=== PATIENT | female | born 1955 | race Caucasian/White ===

== ENCOUNTER 2020-12-04 19:37 | Emergency (ER) | payer MEDICARE, SELFPAY ==
[2020-12-04 19:38] VITALS: BP 183/90; PULSE 63; RESP 16; TEMP 36.7; O2SAT 97; BMI 27.4
--- NOTE | 2020-12-04 19:40 | ECG_ITS ---
APPROVED REPORT Exam: Resting ECG HR:53 bpm ECG Measurements Heart Rate 53 AXES IN 150 P 70 QRSd 82 QRS 2 QT 478 T 42 QTc 448 Conclusion Sinus bradycardia with sinus arrhythmia Possible Left atrial enlargement Borderline ECG Electronically signed by : Heriberto Schafer, 12/05/2020 10:50:51
--- NOTE | 2020-12-04 19:47 | CT_ITS ---
PROCEDURE INFORMATION: Exam: CT Head Without Contrast Exam date and time: 12/04/20 07:47 PM Age: 65 years old Clinical indication: Dizziness; Additional info: Headache dizziness TECHNIQUE: Imaging protocol: Computed tomography of the head without contrast. Radiation optimization: All CT scans at this facility use at least one of these dose optimization techniques: automated exposure control; mA and/or kV adjustment per patient size (includes targeted exams where dose is matched to clinical indication); or iterative reconstruction. COMPARISON: No relevant prior studies available. 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 Old left posterior temporal cortical infarct with encephalomalacia. Left temporal cortical calcification. Cerebral ventricles: No ventriculomegaly. Paranasal sinuses: Visualized sinuses are unremarkable. No fluid levels. Mastoid air cells: Visualized mastoid air cells are well aerated. Bones/joints: Unremarkable. No acute fracture. Soft tissues: Unremarkable. IMPRESSION: 1. 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 2. Old left posterior temporal cortical infarct with encephalomalacia.
--- NOTE | 2020-12-04 19:47 | CT_ITS ---
PROCEDURE INFORMATION: Exam: CT Abdomen And Pelvis With Contrast Exam date and time: 12/04/20 07:47 PM Age: 65 years old Clinical indication: Nausea and vomiting; Prior surgery; Patient HX: N/v; Additional info: Vomitting TECHNIQUE: Imaging protocol: Computed tomography of the abdomen and pelvis with contrast. Radiation optimization: All CT scans at this facility use at least one of these dose optimization techniques: automated exposure control; mA and/or kV adjustment per patient size (includes targeted exams where dose is matched to clinical indication); or iterative reconstruction. Contrast material: ISOVUE; Contrast volume: 75 ml; Contrast route: IV; COMPARISON: No relevant prior studies available. FINDINGS: Tubes, catheters and devices: None noted. Lungs: Lung bases appear clear. Heart: No significant coronary calcifications. No cardiomegaly. No significant pericardial effusion. Liver: Normal. No mass. Gallbladder and bile ducts: Suspect cholecystectomy. Prominent intra and extrahepatic ductal dilation. Pancreas: 3 cm pseudocyst in the tail. No ductal dilation. Spleen: Normal. No splenomegaly. Adrenal glands: Normal. No mass. Kidneys and ureters: Normal. No hydronephrosis. Stomach and bowel: Unremarkable. No obstruction. No mucosal thickening. Appendix: No evidence of appendicitis. Intraperitoneal space: Unremarkable. No free air. No significant fluid collection. Retroperitoneal space: No significant retroperitoneal inflammatory changes are noted. Vasculature: Unremarkable. No abdominal aortic aneurysm. Lymph nodes: Unremarkable. No enlarged lymph nodes. Urinary bladder: Unremarkable as visualized. Reproductive: Unremarkable as visualized. Bones/joints: Unremarkable. No acute fracture. Soft tissues: Unremarkable. IMPRESSION: 1. 3 cm pancreatic pseudocyst in the tail of the pancreas. 2. Prominent intra and extrahepatic biliary dilatation, uncertain significance. Likely remote post cholecystectomy. Consider elective MRCP.
--- NOTE | 2020-12-04 19:50 | XR_ITS ---
PROCEDURE INFORMATION: Exam: XR Chest Exam date and time: 12/04/20 07:50 PM Age: 65 years old Clinical indication: Other: Headache TECHNIQUE: Imaging protocol: XR of the chest. Views: 1 view. COMPARISON: No relevant prior studies available. FINDINGS: Lungs: Unremarkable. No consolidation. Pleural spaces: Unremarkable. No pleural effusion. No pneumothorax. Heart/Mediastinum: Unremarkable. No cardiomegaly. Bones/joints: Unremarkable. IMPRESSION: No acute findings.
--- NOTE | 2020-12-04 19:55 | PC.NURSE ---
NIH scale 0 during triage
[2020-12-04 20:00] VITALS: BP 172/84; PULSE 56; RESP 18; O2SAT 99
[2020-12-04 20:06] LABS: Basophils % 0.3 % (0.1-2.0); Eosinophils # 0.1 K/mm3 (0.0-0.4); Hematocrit 45.9 % (37.0-47.0); Hemoglobin 15.5 g/dL (12.2-16.2); Lymphocytes # 3.3 K/mm3 (0.7-4.5); Lymphocytes % 41.7 % (10-50); Mean Corpuscular HGB Conc 33.8 g/dL (31.8-35.4); Mean Corpuscular Hemoglobin 30.9 pg (27.0-31.2); Mean Corpuscular Volume 91.3 fl (81-99); Mean Platelet Volume 7.5 fl (7.4-10.4); Monocytes # 0.4 K/mm3 (0.1-1.0); Neutrophils # 4.1 K/mm3 (1.8-7.8); Platelet Count 200 K/mm3 (142-424); Red Blood Count 5.03 M/mm3 (4.20-5.40); Red Cell Distribution Width 13.1 % (11.5-17.5); White Blood Count 7.9 K/mm3 (4.8-10.8)
--- NOTE | 2020-12-04 20:08 | HMH.EDWEAK ---
ED Disposition Clinical Impression: CVA (cerebral vascular accident) Qualifiers: CVA mechanism: unspecified Qualified Code(s): I63.9 - Cerebral infarction, unspecified Disposition: Xfer Short-Term Hosp Condition on Discharge: Serious Referrals: Golden Newell MD [Primary Care Provider] - - Critical Care Critical Care Time: No Attestation: On 12/04/20, the high probability of a clinically significant, sudden or life threatening deterioration of the following system(s) required my full and direct attention, intervention and personal management. The time I documented below is in addition to time spent performing reported procedures but includes the following listed in this critical care notation. Medical Decision Making - Medical Records Medical records reviewed: Yes: I reviewed the patient's medical records. - Oziel Inquiry Pt receiving controlled substance: No Vital Signs: 12/04/20 19:38 12/04/20 20:00 12/04/20 21:00 Temperature 98.1 F Temperature Source Oral Pulse Rate 56 L 73 Pulse Rate [Right] 63 Respiratory Rate 16 18 20 Blood Pressure 172/84 H 153/84 H Blood Pressure [Right Arm] 183/90 H Blood Pressure Mean 107 Blood Pressure Mean [Right Arm] 121 02 Sat by Pulse Oximetry 97 99 97 - Lab Data Lab results reviewed: Yes: I reviewed the patient's lab results. Lab Results 12/04/20 19:50: WBC 7.9, RBC 5.03, Hgb 15.5, Hct 45.9, MCV 91.3, MCH 30.9, MCHC 33.8, RDW 13.1, Plt Count 200, MPV 7.5, Neut % (Auto) 52.0, Lymph % (Auto) 41.7, [place] % (Auto) 5.0, Eos % (Auto) 1.0, Baso % (Auto) 0.3, Neut # (Auto) 4.1, Lymph # (Auto) 3.3, [place] # (Auto) 0.4, Eos # (Auto) 0.1, Baso # (Auto) 0.0, ESR 13 12/04/20 19:50: Sodium 140, Potassium 4.0, Chloride 106, Carbon Dioxide 26, Anion Gap 12.0, BUN 17, Creatinine 0.80, Estimated Creat Clear 63, Estimated GFR 72, Est GFR ( Amer) 87, Glucose 138 H, Calcium 9.0, Total Bilirubin 0.7, AST 25, ALT 17, Alkaline Phosphatase 88, C-Reactive Protein 2.2, Total Protein 7.3, Albumin 4.3, Globulin 3.0, Albumin/Globulin Ratio 1.4 12/04/20 19:50: Troponin I 0.03, Amylase 82, Procalcitonin 0.038 12/04/20 19:50: Lipase 101 Result diagrams: 12/04/20 19:50 12/04/20 19:50 Orders (Tests/Meds): ED MEDICATIONS Generic Name Dose Route Start Last Admin Trade Name Freq PRN Reason Stop Dose Admin Sodium Chloride 1,000 mls @ 999 mls/hr 12/04/20 20:00 12/04/20 19:53 Sod Chlor 0.9% 1000ml Bag IV 12/04/20 21:00 999 mls/hr .Q1H1M KHUSHI Administration Discontinued Medications Generic Name Dose Route Start Last Admin Trade Name Freq PRN Reason Stop Dose Admin Iopamidol 75 ml 12/04/20 20:36 12/04/20 20:37 Iopamidol-370 (76%);100ml Bottle IV 12/04/20 20:37 75 ml ONCE ONE Administration Ketorolac Tromethamine 30 mg 12/04/20 19:51 12/04/20 19:54 Ketorolac 30mg/Ml Vial IV 12/04/20 19:52 30 mg ONCE ONE Administration Ondansetron HCl 4 mg 12/04/20 19:51 12/04/20 19:54 Ondansetron 4mg/2ml Vial IV 12/04/20 19:52 4 mg ONCE ONE Administration Sodium Chloride 10 ml 12/04/20 20:36 12/04/20 20:36 Sodium Chloride 0.9% 10ml Syr (Rad Only) IV 12/04/20 20:37 10 ml ONCE ONE Administration ORDERS Category Date Time Status Troponin I Q3H Lab 12/04/20 23:00 Ordered Troponin I Q3H Lab 12/05/20 02:00 Ordered Urinalysis and Microscopic Stat Lab 12/04/20 19:47 Ordered - Radiology Data #1 Image(s): Chest Image Reviewed: Yes I reviewed the patient's radiology image Preliminary Findings: Abnormal - CT Data CT Scan: Head, Abdomen, Pelvis Time Received: 21:[address] Reviewed: Yes: I have viewed the radiologist's interpretation Preliminary Findings: Abnormal - ECG Data Tracing #1 Normal Sinus Rhythm: Yes Ischemic changes: non-specific ST-T wave changes - Physician Consults Physician Consulted: chano Reason -: Transfer to another facilty Medical Decision Narrative: pt with acute brainstem stroke an
[2020-12-04 20:10] LABS: Alanine Aminotransferase 17 U/L (12-78); Albumin Level 4.3 g/dl (3.5-5.0); Albumin/Globulin Ratio 1.4 (1.1-1.8); Alkaline Phosphatase 88 U/L (38-126); Amylase 82 U/L (30-110); Aspartate Amino Transferase 25 U/L (14-36); Bilirubin,Total 0.7 mg/dl (0.2-1.3); Blood Urea Nitrogen 17 mg/dl (7-17); Carbon Dioxide 26 mmol/L (22.0-30.0); Chloride 106 mmol/L (98-107); Creatinine Clearance Estimated 63 mL/min (50-200); Estimated Glomerular Filt Rate 72 ml/min (>60); GFR (African American) 87 ML/MIN (>60); Glucose 138 mg/dl (74-100); Sodium 140 mmol/L (136-145); Total Protein,Serum 7.3 g/dl (6.3-8.2)
[2020-12-04 20:16] LABS: C-Reactive Protein 2.2 mg/L (0-4)
[2020-12-04 20:24] LABS: Lipase 101 U/L (23-300); Troponin I 0.03 ng/ml (0.00-0.034)
--- NOTE | 2020-12-04 20:27 | PC.NURSE ---
pt out of room to radiology.
[2020-12-04 20:29] LABS: Procalcitonin 0.038 ng/mL (0.0-2.0)
[2020-12-04 20:49] LABS: Erythrocyte Sedimentation Rate 13 mm/hr (0-30)
[2020-12-04 21:00] VITALS: BP 153/84; PULSE 73; RESP 20; O2SAT 97
--- NOTE | 2020-12-04 21:04 | PC.NURSE ---
joy on phone with MDs
[2020-12-04 21:36] VITALS: BP 153/84; PULSE 65; RESP 16; TEMP 36.9; O2SAT 98
== END 2020-12-04 21:48 | disposition short-term general hospital (02) ==
PROVIDERS: Emergency Provider Emergency Medicine; PCP Family Medicine
DX: I63.9 Cerebral infarction, unspecified (principal)
CPT/HCPCS: 70450; 71045; 74177; 80053; 82150; 83690; 84145; 84484; 85025; 85651; 86140; 93005; 96365; 96375; 99284; J2405; Q9967

== ENCOUNTER 2021-09-01 14:45 | Outpatient (RCR) | payer MEDICARE, SELFPAY ==
--- NOTE | 2021-09-01 16:15 | HMH.PTOPEV ---
PT Outpatient Evaluation Rehab PT Outpatient Evaluation Start: 09/01/21 14:52 Freq: Status: Active Protocol: Document 09/01/21 16:02 PHORNE (Rec: 09/01/21 16:15 PHORNE [id number]) Electronically Signed By Mehdi Lacey, PT 09/01/21 16:02 Outpatient Therapy Subjective History Subjective History Pt is 65 yowf who presents with c/o dizziness with movement in standing or walking x ~ 10 mos. Pt was transferred to form [facility] ED on 12/04/20 due to possible brainstem CVA with symptoms of nausea, dizziness, and L eye rolled back in my head. However she and her spouse report CVA was ruled out and all testing essentially came back negative. Unfortunately for her the dizziness persists . She reports no c/o pain, but does state sometimes my head feels bigger than it really is. CT of the head showed evidence of prior L occipital and temporal CVA with no timeline involved. Pt reports, I had a sun stroke when I was [age] years old. Otherwise pt reports no significant PMH. Chief Complaint Other Symptoms Relieved By Rest/Positioning Symptoms Aggravated By Standing,Twisting Prior Functional Limitations None Current Functional Limitations Driving,Recreation Activity, Walking Symptom Description Activity Dependent Level of pain today (0-10) 0 Pain scale - at its worst (0-10) 0 Balance Eval Gait/Posture Asssessment General Gait Observation Decrease Stride Lngth (R), Decrease Stride Lngth (L) Level of Transfer Assist Independent Body Alignment Posture Rigid Nystagmus Nystagmus Presence None Oculomotor Gaze Oculomotor Gaze Nml: Vergence Smooth Pursuit Saccades VOR Cancellation Cover/Uncover Cross Cover Dynamic Gait Index Test Protocol Gait Level Surface Mild Impairment Query Text: Instructions: Walk at your normal speed fr
== END 2021-09-01 14:50 | disposition home or self-care (01) ==
LOC: PT 14:45
PROVIDERS: PCP Family Medicine; Visit Provider Family Medicine
DX: R42 Dizziness and giddiness (principal)
CPT/HCPCS: 97163

== ENCOUNTER → 2022-06-28 12:59 | Outpatient (CLI) | payer MEDICARE, SELFPAY ==
--- NOTE | 2022-06-28 | CA_ITS ---
FINAL REPORT TECHNIQUE: Compression barrios scale and Doppler evaluation CLINICAL HISTORY: RLE pain x 1 week with no known trauma. Pain is behind knee and extending into mid and distal calf. Hyperlipidemia. 81 mg ASA daily. FINDINGS: Femoral and popliteal veins show normal compressibility and flow. Thrombus is noted in the peroneal vein. 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 Consider follow-up venous duplex in 5-7 days to assess for propagation. Reviewed, Interpreted and Dictated by Ernestine Laura MD Transcribed by Angel Luis Zhao Authenticated and [facility]
== END ==
PROVIDERS: PCP Family Medicine; Visit Provider Nurse Practitioner Family
DX: M79.604 Pain in right leg (principal)
CPT/HCPCS: 93971

== ENCOUNTER → 2022-08-05 12:05 | Outpatient (CLI) | payer MEDICARE, SELFPAY ==
[2022-08-05 14:57] LABS: Anion Gap 11.6 mEq/L (5-15); Blood Urea Nitrogen 14 mg/dl (7-17); Calcium 8.8 mg/dl (8.4-10.2); Carbon Dioxide 26 mmol/L (22.0-30.0); Chloride 108 mmol/L (98-107); Estimated Glomerular Filt Rate 83 ml/min (>60); GFR (African American) 101 ML/MIN (>60); Glucose 86 mg/dl (74-100); Potassium 4.6 mmoL/L (3.5-5.1); Sodium 141 mmol/L (136-145)
[2022-08-05 16:03] LABS: Vitamin B12 512 pg/mL (239-931)
[2022-08-05 16:04] LABS: Folate 8.97 ng/mL
[2022-08-07 11:08] LABS: Homocyst(e)ine 13.1 umol/L (0.0-17.2)
[2022-08-08 13:23] LABS: Anti-Cardio Antibody IgM 12 MPL U/mL (0-12); Anti-Cardiolipin Antibody IgG <9 GPL U/mL (0-14); Anti-Centromere B Antibodies <0.2 AI (0.0-0.9); Anti-DNA (DS) Ab Qn <1 IU/mL (0-9); Anti-Jo-1 <0.2 AI (0.0-0.9); Anticardiolipin Ab,IgA,Qn 12 APL U/mL (0-11); Antichromatin Antibodies 0.4 AI (0.0-0.9); Antiscleroderma-70 Antibodies <0.2 AI (0.0-0.9); RNP Antibodies <0.2 AI (0.0-0.9); Sjogren's Anti-SS-A 6.8 AI (0.0-0.9); Sjogren's Anti-SS-B <0.2 AI (0.0-0.9)
[2022-08-09 13:49] LABS: Anti-Thrombin III Antigen 109 % (72-124); Protein C Functional 134 % (73-180); Protein S, Free 98 % (61-136); Protein S, Total 110 % (60-150); Protein S-Functional 111 % (63-140)
[2022-08-14 16:09] LABS: Protein C Antigen 142 % (60-150)
[2022-08-18 22:32] LABS: Anti-Centromere B Abs Charge YES; Anti-DNA (DS) Ab Charge YES; Anti-Jo-1 Charge YES; Antichromatin Abs Charge YES; Antinuclear Antibodies (ANA) POSITIVE; Antiscleroderma-70 Abs Charge YES; RNP Antibodies Charge YES; Sjogren's Anti-SS-A Ab Charge YES; Sjogren's Anti-SS-B Ab Charge YES; Smith Antibodies Charge YES
== END ==
PROVIDERS: PCP Nurse Practitioner Family; Referring Provider Internal Medicine Cardiovascular Disease; Visit Provider Specialist
DX: D68.59 Other primary thrombophilia (principal); I63.9 Cerebral infarction, unspecified; R42 Dizziness and giddiness; Z87.898 Personal history of other specified conditions; I82.401 Acute embolism and thrombosis of unspecified deep veins of right lower extremity
CPT/HCPCS: 36415; 80048; 81241; 82607; 82746; 83090; 85301; 85302; 85305; 85306; 86038; 86147; 86225; 86235

== ENCOUNTER → 2022-08-09 10:37 | Outpatient (CLI) | payer MEDICARE, SELFPAY ==
--- NOTE | 2022-08-09 10:38 | MR_ITS ---
FINAL REPORT TECHNIQUE: Multiplanar and multisequence imaging of the brain was obtained before and after contrast administration. CLINICAL HISTORY: Recurrent CVA FINDINGS: The gyri and sulci are within normal limits for age. There is no mass effect or midline shift. There are periventricular and subcortical white matter changes, slightly asymmetric to the left. There is encephalomalacia of the left occipital lobe, likely related to old infarct. No hydrocephalus. The cerebellum and brainstem have a normal appearance. There are no areas of restricted diffusion on diffusion weighted images to suggest acute infarct. There is fluid in the right mastoid air cells consistent with mastoiditis. No pathologic contrast enhancement is identified. IMPRESSION: Nonspecific white matter changes, favor chronic small vessel ischemia although demyelinating disease is not excluded. Right right mastoiditis. Reviewed, Interpreted and Dictated by Nadia Chacko MD Transcribed by Eliana Xiao Authenticated and [facility]
== END ==
PROVIDERS: PCP Nurse Practitioner Family; Visit Provider Specialist
DX: D68.59 Other primary thrombophilia (principal); Z87.898 Personal history of other specified conditions; I63.89 Other cerebral infarction; I82.401 Acute embolism and thrombosis of unspecified deep veins of right lower extremity
CPT/HCPCS: 70553; A9576

== ENCOUNTER → 2022-08-11 13:05 | Outpatient (CLI) | payer MEDICARE, SELFPAY ==
--- NOTE | 2022-08-11 13:07 | CA_ITS ---
APPROVED REPORT EXAM: Comprehensive 2D, Doppler, and color-flow Echocardiogram Watch Crystal Cutter: Maria R Salmeron RT(R) Ht: 5 ft 4 in Wt: 168lbs BSA: 1.82 BP: 149/78 mmHg Indications: cryptogenic stroke, bradycardia, dizziness, CVA, HTN, hyperlipidemia Echo Enhancing Agent Indication: Rule Out Septal Defect Agent(s) / Amount(s) Used: Agitated Saline 15 cc 2D Dimensions LVOT 1.87 cm (M/F) 1.5-2.5 M-Mode Dimensions RVDd 3.04 cm (0.9-2.6) LA Diam 3.52 cm (1.9-4.0) LVDd 4.54 cm (3.5-5.7) Ao Diam 2.69 cm (2.0-3.7) LVDs 3.29 cm (3.5-5.7) IVSd 0.72 cm (0.6-1.1) PWd 0.79 cm (0.6-1.1) EF (Teich) 53.60% FS 27.50% EDV (Teich) 94.40 mL ESV (Teich) 43.80 mL LV Diastology E Decel Time 200.00 (160-240 msec) E/A Ratio 0.9 MED E' 7.60 (< 7 cm/sec) E'/MED E' Ratio 9.20 (>14) LAT E' 7.00 (<10 cm/sec) E/LAT E' Ratio 9.99 (>14) Mitral Valve MV E Max Chu. 70.00 (40-130 cm/s) MV A Velocity 78.00 (40-130 cm/s) E/A Ratio 0.90 MV Decel. Time 200.00 (160-240 ms) MV PHT 59.00 ms Left Ventricle Left atrium is mildly enlarged, left ventricle is normal size mild concentric left ventricular hypertrophy, estimated ejection fraction 55% with no regional wall motion abnormality, grade 1 diastolic dysfunction seen without tissue Doppler evidence of raise left atrial pressure. Right Ventricle Right atrium and right ventricle are normal size and contractility. Atria Intra-atrial septum is intact there is no flow across the interatrial septum, agitated saline contrast study did not identify intracardiac shunt. Mitral Valve Mitral valve is grossly normal, there is trace mitral regurgitation. Tricuspid Valve Tricuspid grossly normal, there is trace tricuspid regurgitation, tricuspid regurgitation jet velocity is inadequate for calculation of the right ventricular systolic pressure. Pulmonic Valve Pulmonic valve is poorly visualized. Great Vessels Aortic root is normal size. Inferior vena cava is normal size with normal inspiratory collapse. Pericardium No significant pericardial effusion noted. Conclusion 1. Mildly enlarged left atrium, normal left ventricular size, mild concentric left ventricular hypertrophy, estimated ejection fraction 55% with no regional wall motion abnormality, grade 1 diastolic dysfunction seen without tissue Doppler evidence of late left atrial pressure. 2. Trace mitral and tricuspid regurgitation. 3. Agitated saline contrast study did not identify intracardiac shunt. 4. No significant pericardial effusion noted. 5. Inferior vena cava is normal size with normal inspiratory collapse. Electronically signed by : Virgil Thurman MD 08/12/2022 11:10:17
== END ==
PROVIDERS: PCP Nurse Practitioner Family; Visit Provider Internal Medicine Cardiovascular Disease
DX: I63.89 Other cerebral infarction; R42 Dizziness and giddiness
CPT/HCPCS: 93225; 93306

== ENCOUNTER → 2022-08-17 09:22 | Outpatient (CLI) | payer MEDICARE, SELFPAY ==
--- NOTE | 2022-08-17 09:26 | XR_ITS ---
FINAL REPORT TECHNIQUE: Bone mineral density was calculated of the lumbar spine and hip. CLINICAL HISTORY: post menopause FINDINGS: Using L1-4, the bone mineral density of the spine is 0.888 g/cm2, corresponding to T-score of -1.4. Using the left hip, the bone mineral density of the femoral neck is 0.757 g/cm2, corresponding to a T-score of -1.5. NOTE: T-score: Standard deviation compared with peak bone mass of young adult mean. *Following the recommendations of the International Society of Bone densitometry, classification of hip BMD is based on the lower of two T-scores; total hip or femoral neck. IMPRESSION: Diminished bone mineral density of the lumbar spine and left hip consistent with osteopenia. FRAX 10 year fracture risk is 0.9% for a hip fracture and 8.7% for a major osteoporotic fracture. Reviewed, Interpreted and Dictated by Mele Norman III, MD Transcribed by Amy Serrano Authenticated and . [facility]
== END ==
PROVIDERS: PCP Nurse Practitioner Family; Visit Provider Nurse Practitioner Family
DX: Z78.0 Asymptomatic menopausal state (principal)
CPT/HCPCS: 77080

== ENCOUNTER 2023-10-05 10:32 | Outpatient (CLI) | payer MEDICARE, SELFPAY ==
--- NOTE | 2023-10-05 11:03 | ECG_ITS ---
APPROVED REPORT Exam: Resting ECG HR:55 bpm ECG Measurements Heart Rate [address] 155 P 71 QRSd 85 QRS 83 QT 418 T 51 QTc 406 Conclusion SINUS BRADYCARDIA LOW QRS VOLTAGE IN PRECORDIAL LEADS with late r wave progression BORDERLINE ECG UNCONFIRMED REPORT Electronically signed by : Heriberto Schafer MD 10/05/2023 19:23:14
[2023-10-05 11:58] LABS: Troponin I < 0.01 ng/ml (0.00-0.034)
[2023-10-05 12:07] LABS: Vitamin B12 441 pg/mL (239-931)
== END 2023-10-05 23:59 | disposition home or self-care (01) ==
LOC: LAB 10:34
PROVIDERS: PCP Physician Assistant; Visit Provider Physician Assistant
DX: R07.9 Chest pain, unspecified (principal)
CPT/HCPCS: 36415; 82607; 84484; 93005

== ENCOUNTER 2024-02-15 00:58 | Emergency (ER) | payer MEDICARE, SELFPAY ==
[2024-02-15 00:59] VITALS: BP 200/103; PULSE 75; RESP 18; TEMP 36.6; O2SAT 99; BMI 29.2
--- NOTE | 2024-02-15 01:02 | HMH.EDGENADL ---
Discharge Plan Disposition Patient Disposition: Home, Self-Care Prescriptions Prescriptions: New diclofenac sodium [Voltaren Arthritis Pain] 1 % gel 2 g topical QID Qty: 100 0RF Rx Instructions: apply to single elbow, wrist or hand; for hand includes palm/fingers/back of hand No Action aspirin 81 mg tablet,delayed release (DR/EC) 81 mg PO DAILY atorvastatin 80 mg tablet 80 mg PO DAILY Referrals Follow up/Referrals: Selene Foster PA [Primary Care Provider] - See instructions Activity Restrictions/Add. Instructions Additional Instructions/Restrictions: Please follow-up with your primary care provider for further assessment, I think you may have arthritis or an autoimmune condition. Please return to the emergency department if you develop any new or worsening symptoms or become concerned for your health. Please take Tylenol and ibuprofen as needed for pain. I also prescribed a topical pain medication that you can draft roller picker and use. Clinical Impressions Clinical Impression: Arm pain, left, Hand swelling Print Language Print Language: Japanese Discharge ED Provider: Schuyler Pavon Adult HPI General Chief complaint: PAIN Stated complaint: pain, swelling R arm Time Seen by Provider: 02/15/24 01:02 History of Present Illness HPI narrative: 68-year-old female with history of prior stroke and DVT presents for left hand pain and swelling. Reports the pain runs up her arm to the shoulder. Denies any chest pain or shortness of breath. She reports that this is approximately the third or fourth time this has happened in the last few months. She reports it was previously on the right hand and switches [id number]. It has been ongoing for the last couple of days. She denies any injury but reports she has been working in the garden a lot. She denies any fever at home. She denies any history of inflammatory conditions or arthritis. Related Data Home Medications ?Medication ?Instructions ?Recorded ?Confirmed aspirin 81 mg tablet,delayed 81 mg PO DAILY 08/01/22 02/15/24 release atorvastatin 80 mg tablet 80 mg PO DAILY 08/01/22 02/15/24 Previous Rx's ?Medication ?Instructions ?Recorded diclofenac sodium 1 % topical gel 2 g topical QID #100 grams 02/15/24 (Voltaren Arthritis Pain) Allergies Allergy/AdvReac Type Severity Reaction Status Date / Time No Known Allergies Allergy Verified 02/20/23 14:28 [facility] Disclaimer: The information contained in this section may have been updated after the patient was seen, as this information can be updated by other users. Medical History Bradycardia Cryptogenic stroke Dizziness Family History Other Hypertension Social History (Updated 02/15/24 @ 01:16 by Nikolas Duran RN) Smoking Status: Never smoker alcohol intake: never substance use type: denies use current occupational status: retired Travel in the last 8 weeks: None household members: spouse housing: house marital status: ROS Obtained: Yes All systems reviewed & no additional complaints except as documented Physical Exam General General appearance: alert and in no apparent distress Head Head exam: atraumatic and normocephalic Eye Eye exam: Present normal appearance, PERRL and EOMI ENT ENT exam: Present normal oropharynx and normal external ear exam Neck Neck exam: Present normal inspection and full ROM Chest Chest inspection: Present normal inspection and symmetric chest wall rise; Absent tenderness Respiratory Respiratory exam: Present normal lung sounds bilaterally; Absent respiratory distress Cardiovascular Cardiovascular exam: Present regular rate and normal rhythm Abdominal Exam Abdominal exam: Present soft; Absent distention, tenderness or guarding Extremities Exam Extremities exam: Present other (Minimal swelling in the skin overlying the dorsum of the hand, more prominent on the lateral aspect. Does not appear to be cellulitic. Patient's hand and wrist are diffusely tender. No erythema induration or warmth. Normal radial and ulnar pulses. No diffuse swelling of the arm.) Back Exam Back exam: Present normal inspection; Absent tenderness Neurological Exam Neurological exam: Present alert and oriented X3; Absent motor sensory deficit Psychiatric Psychiatric exam: Present normal affect and normal mood Skin Skin exam: Present warm, dry and normal color Lymphatic Lymphatic Findings: no adenopathy Medical Decision Making Medical Records Medical records reviewed: Yes I reviewed the patient's medical records. Oziel Inquiry Pt receiving controlled substance: No Oziel was queried for this patient: No Vital Signs: 02/15/24 00:59 02/15/24 01:41 Temperature 97.9 F 98.1 F Temperature Source Oral Oral Pulse Rate 67 Pulse Rate [Left] 75 Respiratory Rate 18 16 Blood Pressure 184/107 H Blood Pressure [Right Arm] 200/103 H Blood Pressure Mean [Right Arm] 135 Blood Pressure Source Automatic Cuff Blood Pressure Source [Right Arm] Automatic Cuff Blood Pressure Position Sitting Blood Pressure Position [Right Arm] Sitting 02 Sat by Pulse Oximetry 99 Oxygen Delivery Method Room Air Room Air Lab Data Lab results reviewed: Yes I reviewed the patient's lab results. Orders (Tests/Meds): ED MEDICATIONS Discontinued Medications Generic Name Dose Route Start Last Admin Trade Name Jonathan PRN Reason Stop Dose Admin Acetaminophen 1,000 mg 02/15/24 01:10 02/15/24 01:27 Acetaminophen 500mg Tab PO 02/15/24 01:11 1,000 mg ONCE ONE Administration Ketorolac Tromethamine 60 mg 02/15/24 01:10 02/15/24 01:43 Ketorolac 60mg/2ml Vial IM 02/15/24 01:11 Not Given ONCE ONE Ketorolac Tromethamine 30 mg 02/15/24 01:10 02/15/24 01:27 Ketorolac 60mg/2ml Vial IM 02/15/24 01:11 30 mg ONCE ONE Administration Miscellaneous 1 each 02/15/24 01:18 02/15/24 01:25 Pharmacy Consult Request NOTAPPLIC 02/15/24 01:19 1 each CONSULT PHARMACY ONE Administration Oxycodone HCl 5 mg 02/15/24 01:43 02/15/24 01:47 Oxycodone 5mg Immediate Release Tablet PO 02/15/24 01:44 5 mg ONCE ONE Administration ORDERS Category Date Time Status POCUS Point of Care (ER Only) Stat Exams 02/15/24 01:10 Taken XR forearm LT 2V Stat Exams 02/15/24 01:10 Completed XR wrist LT min 3V Stat Exams 02/15/24 01:10 Completed Medical Decision Narrative: 68-year-old female with history of prior stroke and DVT presents for left hand/wrist pain and swelling, pain radiating up the left arm, for the last couple of days. This has happened before in both hands at different times. History was obtained via interactive discussion with patient, chart review. On arrival, patient is [afebrile, hemodynamically stable, satting appropriately, alert, oriented x4, GCS 15], moving all extremities spontaneously. Full physical exam performed and significant for findings as documented above. Mild swelling over the hand, no swelling over the forearm or upper arm. Does not appear infectious. On chart review, patient has had positive autoimmune antibody titers as recently as last year. She never saw rheumatology regarding it though. Differential includes but is not limited to arthritis, autoimmune condition, DVT, arterial insufficiency, infectious etiology, gout Patient was given Tylenol Toradol and oxycodone for symptomatic management and correction of underlying abnormalities. Workup initiated including bedside ultrasound of the left arm as well as radiographs of the left hand and forearm. Bedside ultrasound performed and interpreted by me, no evidence of DVT. Radiographs interpreted by me, no evidence of fracture, dislocation, osteomyelitis.. Blood work, EKG, was considered, but deemed unnecessary due to history and physical exam. Given patient history, exam and workup, patient's presentation most likely represents arthritis, potentially autoimmune in nature given positive titers in the past, patient's age, etc. These findings were communicated to patient she was discharged in stable condition with instructions to follow-up with PCP for further assessment. She is given instructions regarding symptomatic care.. Procedures Risk/Benefits of Procedure(s) Were Explained: Yes Limited Ultrasound Indication:: Limited DVT ultrasound Indication: Limited compression ultrasonography of the left upper extremity was performed to evaluate for non-compressibility of the deep veins in the patient. The ultrasound was performed with the following indications, as noted in the H&P: Left arm pain Identified structures: Left [Ulnar vein, radial vein, cephalic vein, basilic vein, axillary vein.] Findings: Upper extremity: Left UV good compressibility Left RV: Good compressibility Left Cephalic vein: Good compressibility Left Basilic vein: Good compressibility Left Axillary vein: Good compressibility Impression: Normal ultrasound without evidence of DVT. Images were saved to permanent archive The study was technically adequate CPT: 92583-62-HF This study was performed by me, and I personally interpreted all images/videos. Based on my clinical judgement, these images were adequate and did not necessitate further imaging. Critical Care Critical Care Time Critical Care Time: No
--- NOTE | 2024-02-15 01:10 | XR_ITS ---
PROCEDURE INFORMATION: Exam: XR Left Wrist Exam date and time: 02/15/2024 1:14 AM Age: 68 years old Clinical indication: Pain; Wrist; Left; Additional info: Atraumatic pain TECHNIQUE: Imaging protocol: Radiologic exam of the left wrist. Views: 3 or more views. COMPARISON: CR XR WRIST LT MIN 3V 02/15/2024 1:14 AM FINDINGS: Bones/joints: Normal. Soft tissues: Normal. IMPRESSION: No acute findings.
--- NOTE | 2024-02-15 01:10 | XR_ITS ---
PROCEDURE INFORMATION: Exam: XR Left Forearm Exam date and time: 02/15/2024 1:14 AM Age: 68 years old Clinical indication: Pain; Lower or forearm; Left; Additional info: Atraumatic pain TECHNIQUE: Imaging protocol: Radiologic exam of the left forearm. Views: 2 views. COMPARISON: CR XR WRIST LT MIN 3V 02/15/2024 1:14 AM FINDINGS: Bones/joints: Normal. Soft tissues: Normal. IMPRESSION: No acute findings.
[2024-02-15] MEDS: ACETAMINOPHEN 500MG TAB 1000 MG PO (01:27)
[2024-02-15] MEDS: KETOROLAC 60MG/2ML VIAL 30 MG IM (01:27)
[2024-02-15 01:41] VITALS: BP 184/107; PULSE 67; RESP 16; TEMP 36.7; O2SAT 98
[2024-02-15] MEDS: OXYCODONE 5MG IMMEDIATE RELEASE TABLET 5 MG PO (01:47)
== END 2024-02-15 01:51 | disposition home or self-care (01) ==
PROVIDERS: Emergency Provider Emergency Medicine; PCP Physician Assistant
DX: M79.602 Pain in left arm (principal); R22.32 Localized swelling, mass and lump, left upper limb; Z86.73 Personal history of transient ischemic attack (TIA), and cerebral infarction without residual deficits; Z86.718 Personal history of other venous thrombosis and embolism
CPT/HCPCS: 73090; 73110; 96372; 99284; J1885

== ENCOUNTER 2024-08-09 11:26 | Outpatient (CLI) | payer MEDICARE, SELFPAY ==
[2024-08-09 12:25] LABS: Alanine Aminotransferase 117 U/L (12-78); Albumin Level 4.2 g/dl (3.5-5.0); Albumin/Globulin Ratio 2.2 (1.1-1.8); Alkaline Phosphatase 62 U/L (38-126); Anion Gap 15.2 mEq/L (5-15); Aspartate Amino Transferase 49 U/L (14-36); Bilirubin,Total 0.7 mg/dl (0.2-1.3); Blood Urea Nitrogen 17 mg/dl (7-17); Calcium 9.3 mg/dl (8.4-10.2); Carbon Dioxide 28 mmol/L (22.0-30.0); Chloride 103 mmol/L (98-107); Estimated Glomerular Filt Rate 83 ml/min (>60); GFR (African American) 100 ML/MIN (>60); Globulin 1.9 g/dL (1.3-3.2); Glucose 140 mg/dl (74-100); Potassium 4.2 mmoL/L (3.5-5.1); Sodium 142 mmol/L (136-145); Total Protein,Serum 6.1 g/dl (6.3-8.2)
== END 2024-08-09 23:59 | disposition home or self-care (01) ==
LOC: LAB 11:28
PROVIDERS: PCP Physician Assistant; Visit Provider Physician Assistant Medical
DX: M05.79 Rheumatoid arthritis with rheumatoid factor of multiple sites without organ or systems involvement (principal); Z79.899 Other long term (current) drug therapy
CPT/HCPCS: 36415; 80053

== ENCOUNTER 2024-09-06 09:15 | Outpatient (CLI) | payer MEDICARE, SELFPAY ==
--- NOTE | 2024-09-06 09:17 | XR_ITS ---
FINAL REPORT CLINICAL HISTORY: SCREENING FINDINGS: Using L1-4, the bone mineral density of the spine is 0.928 g/cm2, corresponding to T-score of -1.1 which is within the range of osteopenia. Using the left hip, the bone mineral density of the femoral neck is 0.739 g/cm2, corresponding to a T-score of -1.0 which is within the normal range. Using the right hip, the bone mineral density of the femoral neck is 0.793 g/cm2, corresponding to a T-score of -0.5 which is within the normal range. FRAX 10 year fracture risk is 11% for a hip fracture and 1.3% for a major osteoporotic fracture. IMPRESSION: Osteopenic bone mineral density of the lumbar spine. Normal bone mineral density of the bilateral femoral necks. NOTE: T-score: Standard deviation compared with peak bone mass of young adult mean. *Following the recommendations of the International Society of Bone densitometry, classification of hip BMD is based on the lower of two T-scores; total hip or femoral neck. Reviewed, Interpreted and Dictated by Taye Drake MD Transcribed by Aida Eisenberg Authenticated and [facility]
== END 2024-09-06 23:59 | disposition home or self-care (01) ==
LOC: RAD 09:15
PROVIDERS: PCP Physician Assistant; Visit Provider Physician Assistant
DX: M81.0 Age-related osteoporosis without current pathological fracture (principal)
CPT/HCPCS: 77080

== ENCOUNTER 2024-09-11 09:02 | Outpatient (CLI) | payer MEDICARE, SELFPAY ==
--- NOTE | 2024-09-11 09:04 | US_ITS ---
FINAL REPORT TECHNIQUE: Multiple transverse and longitudinal images CLINICAL HISTORY: ELEVATED LFT S COMPARISON: None FINDINGS: Status post cholecystectomy. There is severe biliary ductal dilatation with common bile duct measuring up to 14 mm. No fluid collections are seen. Limited portions of the right liver are unremarkable. Limited portions of the right kidney are unremarkable. IMPRESSION: Significant extrahepatic biliary ductal dilatation. Recommend further evaluation with MRCP. Reviewed, Interpreted and Dictated by Ernestine Laura MD Transcribed by Jennifer Schmidt Authenticated and [facility]
== END 2024-09-11 23:59 | disposition home or self-care (01) ==
LOC: RAD 09:02
PROVIDERS: PCP Physician Assistant; Visit Provider Physician Assistant
DX: R79.89 Other specified abnormal findings of blood chemistry (principal)
CPT/HCPCS: 76705

== ENCOUNTER 2024-09-16 09:58 | Outpatient (CLI) | payer MEDICARE, SELFPAY ==
--- NOTE | 2024-09-16 10:01 | MR_ITS ---
FINAL REPORT TECHNIQUE: Multiplanar multisequence imaging of the abdomen was obtained without contrast. MRCP images were obtained as well. CLINICAL HISTORY: DILATED BILE DUCT NAUSEA AND RUQ PAIN COMPARISON: None FINDINGS: The liver is fatty infiltrated without focal lesion. The spleen is normal in size and signal intensity. The adrenal glands are without nodule. There is a T2 hyperintense and T1 hypointense lesion in the body of the pancreas measuring 4 cm on axial images. Mild distal pancreatic duct dilatation is noted. The kidneys demonstrate no evidence of mass or hydronephrosis. GI tract demonstrates no evidence of obstruction or other acute abnormality. There is no ascites or lymphadenopathy. The gallbladder is absent. There is both intrahepatic and extrahepatic biliary ductal dilatation. The extrahepatic duct measures 19 mm and the common bile duct measures 11 mm. There are no filling defects. Pancreatic duct is normal in caliber at the head and proximal body. It is dilated distal to the cystic mass. IMPRESSION: Intrahepatic and extrahepatic biliary duct dilatation without common duct filling defect or stricture. This could be related to cholecystectomy. Cystic mass tail the pancreas could be cystic neoplasm or pseudocyst. Recommend comparison with any outside exam or consider follow-up CT or MRI without and with contrast. Reviewed, Interpreted and Dictated by Nadia Chacko MD Transcribed by Jennifer Schmidt Authenticated and . [facility]
== END 2024-09-16 23:59 | disposition home or self-care (01) ==
LOC: RAD 09:58
PROVIDERS: PCP Physician Assistant; Visit Provider Physician Assistant
DX: K83.8 Other specified diseases of biliary tract (principal)
CPT/HCPCS: 74181; 76376

== ENCOUNTER 2024-09-17 09:06 | Outpatient (CLI) | payer MEDICARE, SELFPAY ==
[2024-09-17 09:52] LABS: Amylase 60 U/L (30-110); Lipase 76 U/L (23-300)
[2024-09-18 08:32] LABS: CA 19-9 41 U/mL (0-35); CEA 4.3 ng/mL (0.0-4.7)
== END 2024-09-17 23:59 | disposition home or self-care (01) ==
LOC: LAB 09:07
PROVIDERS: PCP Physician Assistant; Visit Provider Internal Medicine Gastroenterology
DX: K86.2 Cyst of pancreas (principal); R74.01 Elevation of levels of liver transaminase levels; K83.8 Other specified diseases of biliary tract; R14.2 Eructation; K59.09 Other constipation; K74.60 Unspecified cirrhosis of liver; Z90.49 Acquired absence of other specified parts of digestive tract
CPT/HCPCS: 36415; 82150; 82378; 83690; 86301

== ENCOUNTER 2024-09-30 12:48 | Day surgery (SDC) | payer MEDICARE, SELFPAY ==
[2024-09-30] VITALS (11 sets, daily range): BP systolic 148–169; BP diastolic 70–93; PULSE 52–71; RESP 16–20; TEMP 36.2–36.4; O2SAT 95–100; BMI 30.7
[2024-09-30] MEDS: LACTATED RINGERS 1000ML 1,000 ML 50 ML IV (13:13)
--- NOTE | 2024-09-30 13:18 | EXP.ANES.CKL ---
[facility] Disclaimer: The information contained in this section may have been updated after the patient was seen, as this information can be updated by other users. Medical History Dizziness First noticed following previous stroke. Cardiac work up so far negative for PAF but she has LVH and traces of Tricuspide regurgitation, (increased risk for PAF). LICO screen positive, SS-A: 6.8, (H), anticardiolipin IgA: 12, (H). Rheumatology referral requested 11/01/2022. Bradycardia Cryptogenic stroke On aspirin for secondary stroke prevention Family History Other Hypertension Social History Smoking Status: Never smoker alcohol intake: never substance use type: denies use current occupational status: retired Travel in the last 8 weeks: None household members: spouse housing: house marital status: Have you lived/traveled outside US in past 30 days?: No Contact w/someone who lives/traveled outside US past 30 days?: No Exposure to someone with infectious disease in past 14 days?: No Do you have a fever (greater than 100.4 F or 38 C)?: No Have you tested positive for COVID-19: No Exposed to someone with COVID-19 in past 14 days?: No Do you have a sore throat?: No Do you have a cough?: No Do you have any weakness?: No Do you have any diarrhea?: No Are you experiencing any unusual bleeding?: No Do you have any muscle aches/pain?: No Do you have any abdominal pain?: No Are you experiencing loss of taste or smell?: No [facility] Anesthesia Checklist Patient Identification Patient Identification: Arm Band Structural Data Admitted From: Home Planned Operative Procedure/s: ERCP Consent for Planned Operative Procedure(s) Verified: Yes Verified Documents: Surgical Consent and History and Physical NPO Status Verified Time NPO: 00:00 Additional verifications Anesthesia Reactions: No Airway Assessment Mallampati Score:: Class II C-Spine Mobility Assessed: Yes TMJ Mobility Assessed: Yes Dentition: Good Dentition Neurological Assessment Level of Consciousness: Awake, Alert and Appropriate Anesthesia Plan Anesthesia Risk discussed: Yes Anesthesia Plan: Verified ASA Class: II Anesthesia Type: General
--- NOTE | 2024-09-30 14:50 | P.HP_ITS ---
History of Present Illness *Admission Date: 09/30/24 *Reason for visit:: Dilated bile duct and pancreatic lesion *History of present illness: Mrs. Dale is a 69-year-old female who is here for evaluation of abnormal imaging and dilated bile duct. The patient did have an ultrasound of the abdomen on 09/11/2024 showing significant extrahepatic biliary duct dilation of 14 mm. She is status postcholecystectomy. Her subsequent MRCP yesterday showed intrahepatic and extrahepatic biliary ductal dilation without evidence of stones or stricture in this did go to the ampulla. The extrahepatic bile duct measured up to 19 mm and the common bile duct measured 11 mm. There was also a 4 cm hy pointense lesion in the body of the pancreas measuring 4 cm with some upstream mild distal pancreatic duct dilation. This was not characterized as IPMN. The patient reports no abdominal pain or weight loss. She reports no bloating or abdominal distention. She has had the new onset of belching over the last couple of weeks. She also has obstipation/constipation with incomplete defecation and longer periods of time on the commode. Her bowel movements are pasty. She reports no jaundice. The patient did have routine labs showing normal CBC. Her chemistry showed mildly elevated liver chemistries with AST 49, ALT 117, alkaline phosphatase 62 and total bilirubin 0.7. The patient has had some belching and chronic constipation. The patient just recently did Cologuard testing in the last 1 to 2 weeks with results not yet available. Her last screening colonoscopy was more than a decade ago. [facility] Disclaimer: The information contained in this section may have been updated after the patient was seen, as this information can be updated by other users. Medical History Dizziness First noticed following previous stroke. Cardiac work up so far negative for PAF but she has LVH and traces of Tricuspide regurgitation, (increased risk for PAF). LICO screen positive, SS-A: 6.8, (H), anticardiolipin IgA: 12, (H). Rheumatology referral requested 11/01/2022. Bradycardia Cryptogenic stroke On aspirin for secondary stroke prevention Family History Other Hypertension Social History Smoking Status: Never smoker alcohol intake: never substance use type: denies use current occupational status: retired Travel in the last 8 weeks: None household members: spouse housing: house marital status: Have you lived/traveled outside US in past 30 days?: No Contact w/someone who lives/traveled outside US past 30 days?: No Exposure to someone with infectious disease in past 14 days?: No Do you have a fever (greater than 100.4 F or 38 C)?: No Have you tested positive for COVID-19: No Exposed to someone with COVID-19 in past 14 days?: No Do you have a sore throat?: No Do you have a cough?: No Do you have any weakness?: No Do you have any diarrhea?: No Are you experiencing any unusual bleeding?: No Do you have any muscle aches/pain?: No Do you have any abdominal pain?: No Are you experiencing loss of taste or smell?: No Other Medical History Have you received the Flu Vaccine for this season: Yes Have you received the Pneumonia Vaccine: Yes Review of Systems Review of Systems Review of systems (narrative): Negative *Cardiovascular Comments: Negative *Gastrointestinal Comments: Negative *Genitourinary Comments: Negative *Musculoskeletal Comments: Negative *Neurologic Comments: Negative Meds Home Medications and Allergies Home Medications ?Medication ?Instructions ?Recorded ?Confirmed ?Type aspirin 81 mg tablet,delayed 81 mg PO DAILY 08/01/22 09/30/24 History release atorvastatin 80 mg tablet 80 mg PO DAILY 08/01/22 09/30/24 History omeprazole 40 mg capsule,delayed 40 mg PO DAILY 09/17/24 09/30/24 History release New Prescriptions to Start Prescriptions: Allergies Allergy/AdvReac Type Severity Reaction Status Date / Time No Known Allergies Allergy Verified 09/30/24 13:01 Exam Data for Last 24 hours Vital signs and Labs for Last 24 Hours: Temp Pulse Resp BP Pulse Ox O2 Del Method 97.6 F 71 18 150/70 H 96 Room Air 09/30/24 13:02 09/30/24 13:02 09/30/24 13:02 09/30/24 13:02 09/30/24 13:02 09/30/24 13:02 I & O for Last 24 hours: Intake & Output 09/27/24 09/28/24 09/29/24 09/30/24 23:59 23:59 23:59 23:59 Weight 179 lb *Routine HEENT Exam Head: Present normocephalic Eye: Present EOMI and PERRL ENT: Present mucous membranes moist *Routine Neck Exam Neck: Present supple *Routine Respiratory Exam Respiratory: Present CTA bilaterally *Routine Cardiovascular Exam Cardiovascular: Present RRR *Routine Abdominal Exam Abdominal: Present soft and normoactive bowel sounds; Absent tenderness *Routine Rectal Exam Rectal:: deferred *Routine Genitalia Exam Genitalia:: deferred *Routine Extremities Exam Extremities: Absent cyanosis, clubbing or edema *Routine Skin Exam Skin: Present warm; Absent rash *Routine Neurological Exam Neurological: Present alert and oriented X3 Assessment and Plan *Assessment and plan (1) Common bile duct dilatation: Status: Acute Category: Medical Code(s): K83.8 - Other specified diseases of biliary tract (2) Elevated liver transaminase level: Status: Acute Category: Medical Code(s): R74.01 - Elevation of levels of liver transaminase levels (3) Cystic mass of pancreas: Status: Acute Category: Medical Code(s): K86.2 - Cyst of pancreas Plan A/P: 1. Dilated common bile duct with elevated liver transaminases and cystic mass of pancreas is the preprocedural diagnosis. The patient will be anesthetized/sedated using MAC sedation. The patient has been seen and examined. Cardiac and lung assessment prior to the examination is stable. Proceed with planned ERCP.
--- NOTE | 2024-09-30 14:53 | P.PCN_ITS ---
[facility] Procedure Note Date: 09/30/24 Time: 15:10 Procedure Note:: ERCP procedure Report: Endoscopic retrograde cholangiopancreatography with biliary sphincterotomy Endoscopist: Hao Mora II, MD Referring Physician: Teri Foster PA-C Date of Procedure: September 30, 2024 Equipment: Olympus 180 side viewing endoscope duodenoscope Sedation: MAC sedation Indication: Mrs. Dale is a 69-year-old female who is here for evaluation of abnormal imaging and dilated bile duct. The patient did have an ultrasound of the abdomen on 09/11/2024 showing significant extrahepatic biliary duct dilation of 14 mm. She is status postcholecystectomy. Her subsequent MRCP yesterday showed intrahepatic and extrahepatic biliary ductal dilation without evidence of stones or stricture in this did go to the ampulla. The extrahepatic bile duct measured up to 19 mm and the common bile duct measured 11 mm. There was also a 4 cm hypointense lesion in the body of the pancreas measuring 4 cm with some upstream mild distal pancreatic duct dilation. This was not characterized as IPMN. The patient reports no abdominal pain or weight loss. She reports no bloating or abdominal distention. She has had the new onset of belching over the last couple of weeks. She also has obstipation/constipation with incomplete defecation and longer periods of time on the commode. Her bowel movements are pasty. She reports no jaundice. The patient did have routine labs showing normal CBC. Her chemistry showed mildly elevated liver chemistries with AST 49, ALT 117, alkaline phosphatase 62 and total bilirubin 0.7. The patient has had some belching and chronic constipation. The patient just recently did Cologuard testing in the last 1 to 2 weeks with results not yet available. Her last screening colonoscopy was more than a decade ago. After the patient's recent office visit, labs were drawn and her CBC was normal. She also had normal amylase 60, lipase 76, CEA 4.3. Her CA 19-9 level was 41 (mildly increased). Procedure: Prior to the procedure, a history and physical exam was performed, and patient's medications and allergies were reviewed. The risks (including pancreatitis), benefits and alternatives of the sedation and procedure were discussed with the patient. All questions were answered and informed consent was obtained. The patient was brought to the fluoroscopic radiology room. Patient identification and proposed procedure were verified by the physician and the nurse. [facility] a swimmer's position between left lateral decubitus and prone position and the scope was passed under direct vision. Throughout the procedure, the patient's blood pressure, pulse, and oxygen saturations were monitored continuously. The ERCP was accomplished without difficulty. The patient tolerated the procedure well. Findings: The duodenoscope was passed directly into the upper esophagus and advanced to the second portion of the duodenum. The fluoroscopic C arm was then placed into position prior to cannulation with the duodenoscope was centered in a L-shaped position fluoroscopically in the second portion of duodenum. The entire endoscopic exam was done in conjunction with fluoroscopy. The cannula was then inserted through the duodenoscope channel and preloaded with low osmolar contrast. The bile duct was selectively cannulated with a guidewire. The cholangiogram showed an 11 to 12 mm CBD with some dilation of the common hepatic duct up to 15 mm but normal filling of the intrahepatic biliary system. There were no filling defects or strictures identified and there was smooth tapering at the ampulla. There was some delayed drainage of contrast. Given the patient's elevated ALT level and delayed drainage, a biliary sphincterotomy was performed with excellent drainage of contrast and bile and decompression of the biliary tree. Next, the pancreatic duct was selectively cannulated. The pancreatogram did show normal 2 to 3 mm pancreatic duct in the head and body of the gland. There were a few ductular ectasias in the junction between the body and tail of the pancreas with rapid tapering of the pancreatic duct in the junction of the body and tail. These findings may be consistent with focal chronic pancreatitis but given that history of complex cystic lesion in the body of the pancreas with upstream pancreatic duct dilation in the tail, I did feel this carries some significance and may be ductal stricturing. Because of his location, focal biopsies and brushings would be difficult. This area will need to be evaluated further with endoscopic ultrasound. Impression: 1. Dilated CBD and extrahepatic biliary system with smooth tapering of biliary tree?possible postcholecystectomy dilation or early sphincter of Oddi status post biliary sphincterotomy 2. 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 Her CA 19-9 was mildly elevated at 41. I would like for the patient to have endoscopic ultrasound to determine whether this is an IPMN with impingement on the main pancreatic duct. I will discuss the findings with the patient and family.
[2024-09-30] MEDS: INDOMETHACIN 50MG SUPPOSITORY 50 MG RC (15:08)
--- NOTE | 2024-09-30 15:23 | FL_ITS ---
FINAL REPORT CLINICAL HISTORY: ERCP IN OR 1.8 MIN 49.20 mGy FINDINGS: FLUOROSCOPY LESS THAN 1 HOUR HISTORY: Fluoroscopy guidance. FINDINGS: Fluoroscopic guidance was provided for ERCP in the OR. Three spot films were obtained. A total of 1.8 minutes of fluoroscopy time were used. DAP: 49.20 mGy IMPRESSION: As above. Reviewed, Interpreted and Dictated by Ernestine Laura MD Transcribed by Jennifer Schmidt Authenticated and [facility]
--- NOTE | 2024-09-30 15:23 | EXP.ANES.I ---
[facility] Anesthesia Record Part I Anesthesia Record I Intake, IV Amount: 600 Hydration: Adequate Estimated blood loss (mL): 0 Urine output (mL): 0 Blood Pressure: 162/89 SaO2: 96 Pulse Rate: 63 Airway Patency: Patent Respiratory Rate: 18 Temperature: 97.2 F Patient is:: Awake and Stable Stable to PACU at:: 15:28
[2024-09-30] MEDS: IOPAMIDOL-370 (76%);100ML BOTTLE 10 ML IV (15:42)
[2024-09-30] MEDS: BELLADONNA ALKALOIDS PO (16:11)
[2024-09-30] MEDS: PHENOBARBITAL PO (16:11)
--- NOTE | 2024-09-30 16:27 | SUR.PHASEII ---
Lorazepam ordered per physician was open and drawn up at the bedside for pt. pt condition changed and pt did not need medication. medication was unable to be wasted in [facility] d/t pharmacy pulling medication. spoke with cricket in pharmacy who stated nurse note was ok. witnessed waste with dung hunt RN.
--- NOTE | 2024-10-01 07:18 | EXP.ANES.II ---
[facility] Anesthesia Record Part II Anesthesia Record Part II Discharge Time: 15:48 Destination: Surgical Day Care (OP Surgery) PACU nurse assessment reviewed?: Yes Patient Condition:: Good Anesthesia Complications:: None Swallowing reflex intact?: Yes Airway Patency: Patent Cyanosis?: No Blood Pressure: 165/83 SaO2: 96 Respiratory Rate: 20 Pulse Rate: 63 Temperature: 97.2 F Mental Status: Alert & Oriented Pain level:: 4 Nausea and/or vomitting:: None Intake, IV Amount: 0 Hydration: Adequate
[2024-10-01 07:19] VITALS: BP 165/83; PULSE 63; RESP 20; TEMP 36.2; O2SAT 96
== END 2024-09-30 16:30 | disposition home or self-care (01) ==
PROVIDERS: PCP Physician Assistant; Visit Provider Internal Medicine Gastroenterology
PROC: (CPT 43260; principal; 2024-09-30 14:30)
DX: K83.8 Other specified diseases of biliary tract (principal); R74.01 Elevation of levels of liver transaminase levels; K86.2 Cyst of pancreas
CPT/HCPCS: 43262; 43273; 74330; 76000; J3490; C1769; J1100; J2405; J3010; J7120; Q9967

== ENCOUNTER 2025-01-27 18:22 | Emergency (ER) | payer MEDICARE, SELFPAY ==
[2025-01-27] VITALS (9 sets, daily range): BP systolic 142–205; BP diastolic 65–118; PULSE 49–67; RESP 15–20; TEMP 36.3; O2SAT 94–99; BMI 28.5
--- OUTSIDE RECORDS SUMMARY | 2025-01-27 18:57 | XMS_ITS | Clinical Summary ---
Author Organization [facility] Address [address] [place] [address] Care Team Providers Care Store Shopper Name Role Phone Golden Newell MD Primary Care Provider [phone] Allergies No known active allergies Medications atorvastatin (Lipitor) 80 MG tablet Take 1 tablet (80 mg total) by mouth 1 (one) time each day. 30 tablet 11 12/09/2020 Active Active Problems Problem Noted Date Diagnosed Date Pituitary adenoma 12/07/2020 Overview (12/07/2020): # Possible pituitary microadenoma - Noted incidentally on MRI during stroke workup - No symptoms reported PLAN: - Will order pituitary panel including FSH, LH, TSH, serum PRL, IGF-1, ACTH - Continue to monitor Bradycardia 12/06/2020 Overview (12/07/2020): - HR 40s-50s at baseline, decreases as low as 35 while asleep - Cardiology contacted overnight, nothing to do as pt is asymptomatic and HD stable - Asymptomatic, BP stable - Will continue to monitor CN III palsy, 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 Initially presented as a stroke alert, no acute infarct identified - CT showed old hypodensities in the left occipital lobe and left temporal lobe - CTA with atherosclerosis of the left posterior cerebral artery and encephalomalacia - MRI: redemonstrates left parietal/left occipital encephalomalacia as well as a possible pituitary adenoma - Exam with no fatigability, no ataxia concerning for brainstem syndrome, left eye ptosis with impaired aBduction noted - DDX includes temporal arteritis, paraneoplastic syndrome, aneurysm, ocular myasthenia gravis, thyroid disease PLAN: - Opthalmology consulted, appreciate recs - Suspicion low for MG given exam and acute onset, will follow up Anti-Ach titers (ordered) and order one-time vital capacity - ESR/CRP ordered - TSH/T4 ordered Social History Tobacco Use Types Packs/Day Years Used Date Smoking Tobacco: Never Smokeless Tobacco: Never Alcohol Use Standard Drinks/Week Comments Never 0 (1 standard drink = 0.6 oz pur e alcohol) Comments Unknown Sex and Gender Information Value Date Recorded Sex Assigned at Not on file Legal Sex Female 7:45 PM EDT Gender Identity Not on file Sexual Orientation Not on file Last Filed Vital Signs Vital Sign Reading Time Taken Comments Blood Pressure 139/80 12/08/2020 1:47 PM EDT Pulse 72 12/08/2020 1:47 PM EDT Temperature 36.7 C (98 F) 12/08/2020 1:47 PM EDT Respiratory Rate 20 12/08/2020 1:47 PM EDT Oxygen Saturation 98% 12/08/2020 1:47 PM EDT Inhaled Oxygen Concentration - - Weight 80.8 kg (178 lb 2.1 oz) 12/06/2020 7:48 A M EDT Height 162.6 cm (5' 4 ) 12/05/2020 11:59 AM EDT Body Mass Index 30.58 12/05/2020 11:59 AM EDT Plan of Treatment Upcoming Encounters Date Type Department Care Team (Late st Contact Info) Description 01/31/2025 9:15 AM EDT [facility] Testing [facility] [address] [place] [address] 02/07/2025 9:00 AM EDT Appointment [facility] [address] [place] [address] Abbey Lancaster MD [address] [place] [address] Health Maintenance Due Date Last Done Comments [facility]-Bone Density Scan 1955 [facility]-Depression Screening 1955 [facility]-Medicare Annual Wellness (AWV) 1955 [facility]-/Child/Adol SDOH Screenings 1955 [facility]- SDOH Screenings 09/13/1971 [facility]-Adult SDOH Screenings 09/13/1971 CT Colonography 1998 Colonoscopy 1998 FIT-DNA 1998 FIT 1998 FOBT 1998 Sigmoidoscopy 1998 [facility]-Colorectal Cancer Screening 1998 [facility]-DTaP,Tdap,and Td Vaccine s (1 - Tdap) 05/01/2003 04/30/2003, 09/05/1996 [facility]-Breast Cancer Screening 09/13/2003 [facility]-Zoster Vaccines (2 of 3) 07/02/2015 05/07/2015 [id number] Vaccine (1 - 2023- season) 2024 [facility]-Influenza Vaccine (#1) 2025 03/08/2021 [facility]-RSV Vaccine: 60+ Years o r (1 - 1-dose 75+ series) 2028 [facility]-Hepatitis C Screening Completed 12/04/2020 [facility]-Pneumococcal Vaccine: 50 + Years Completed 08/29/2024, 08/10/2022 HPV Vaccines Aged Out No longer eligi ble based on patient's age to complete this topic [facility]-HIB Vaccines Aged Out No longer e ligible based on patient's age to complete this topic [facility]-Hepatitis A Vaccines Aged Out No longer eligible based on patient's age to complete this topic [facility]-IPV Vaccines Aged Out No longer e ligible based on patient's age to complete this topic [facility]-Rotavirus Vaccines Aged Out No lo nger eligible based on patient's age to complete this topic Goals Goal Patient Goal Type Associated Problems Recent Progress Patient-Stated? Author Autogenerat ed Goal Care Plan Autogenerated Problem No Jennifer Sabillon Procedures Procedure Name Priority Date/Time Associated Diagnosis Comments HEPATITIS C ANTIBODY - ED W/REFLEX TO HCV QUANT PCR STAT 12/04/2020 11:50 PM EDT from Last 3 Months or Most Recently Relevant to Health Maintenance Results * [place] Hepatitis C Antibody (12/04/2020 11:50 PM EDT) Hepatitis C Antibody Negative Negative 12/05/2020 1:44 AM EDT [facility] Blood Venous blood specimen / Unknown Venipuncture / Unknown 12/04/2020 11:50 PM EDT 12/05/2020 12:10 AM EDT us Stefany Chambers MD LAB BLOOD ORDERABLES Final Res ult [facility] [address] [place] [address] from Last 3 Months or Most Recently Relevant to Health Maintenance Additional Health Concerns Active Problems Noted Date Diagnosed Date Autogenerated Problem 12/19/[address] [place] [place] [address] MEDICARE Advance Directives * Full Code (Latest Code Status on File) Date Activated Date Inactivated Comments 12/05/2020 2:14 AM 12/08/2020 7:58 PM Question Answer Comments Patient has decision-making capacity? Yes Care Teams Store Shopper Relationship Specialty Start Date End Date Golden Newell MD [address], [place] [address] PCP - General 12/04/20
--- OUTSIDE RECORDS SUMMARY | 2025-01-27 18:57 | XMS_ITS | Encounter Summary ---
Author Organization Healthcare Address [address] [place] [address] Care Team Providers Care Implementation Services Analyst Name Role Phone Golden Newell MD Primary Care Provider [phone] Encounter Details Date Type Department Care Team (Late Contact Info) Description 09/16/2024 Orders Only External Location [address] [place] [address] Selene Foster PA [address] [facility] [address] [place] [address] Social History Tobacco Use Types Packs/Day Years Used Date Smoking Tobacco: Never Smokeless Tobacco: Never Alcohol Use Standard Drinks/Week Comments Never 0 (1 standard drink = 0.6 oz pur e alcohol) Comments Unknown Sex and Gender Information Value Date Recorded Sex Assigned at Not on file Legal Sex Female 7:45 PM EDT Gender Identity Not on file Sexual Orientation Not on file documented as of this encounter Plan of Treatment Upcoming Encounters Date Type Department Care Team (Late Contact Info) Description 01/31/2025 9:15 AM EDT [facility] Testing [place] [facility] [address] [place] [address] 02/07/2025 9:00 AM EDT Appointment [facility] [address] [place] [address] Abbey Lancaster MD [address] [place] [address] documented as of this encounter Procedures Procedure Name Priority Date/Time Associated Diagnosis Comments MR OUTSIDE IMAGES 09/16/2024 10:25 AM EDT documented in this encounter Results * MR transfer of outside films (09/16/2024 10:25 AM EDT) Anatomical Region Laterality Modality Magnetic Resonan ce 09/16/2024 10:2 5 AM EDT Selene COOPER IMG MRI PROCEDURES Final Result documented in this encounter Visit Diagnoses Not on filedocumented in this encounter Care Teams Implementation Services Analyst Relationship Specialty Start Date End Date Golden Newell MD [address] [place] [address] PCP - General 12/04/20 documented as of this encounter
--- OUTSIDE RECORDS SUMMARY | 2025-01-27 18:57 | XMS_ITS | Encounter Summary ---
Author Organization Healthcare Address [address] [place] [address] Care Team Providers Care Manager Plant Name Role Phone Golden Newell MD Primary Care Provider [phone] Encounter Details Date Type Department Care Team (Late Contact Info) Description 12/08/2020 Ophth Exam [facility] [address] [place] [address] Oneil Mueller DO Social History Tobacco Use Types Packs/Day Years Used Date Smoking Tobacco: Never Smokeless Tobacco: Never Alcohol Use Standard Drinks/Week Comments Never 0 (1 standard drink = 0.6 oz pur e alcohol) Comments Unknown Sex and Gender Information Value Date Recorded Sex Assigned at Not on file Legal Sex Female 7:45 PM EDT Gender Identity Not on file Sexual Orientation Not on file COVID-19 Exposure Response Date Recorded In the last month, have you been in contact with someone who was confirmed or suspected to have Coronavirus / COVID-19? No / Unsure 12/04/2020 10:58 PM EDT documented as of this encounter Plan of Treatment Upcoming Encounters Date Type Department Care Team (Late Contact Info) Description 01/31/2025 9:15 AM EDT [facility] Testing [facility] [address] [place] [address] 02/07/2025 9:00 AM EDT Appointment [facility] [address] [place] [address] Abbey Lancaster MD [address] [place] [phone] documented as of this encounter Visit Diagnoses Not on filedocumented in this encounter Care Teams Manager Plant Relationship Specialty Start Date End Date Golden Newell MD [address] [address] PCP - General 12/04/20 documented as of this encounter
--- OUTSIDE RECORDS SUMMARY | 2025-01-27 18:57 | XMS_ITS | Encounter Summary ---
Author Organization Healthcare Address [address] [place] [address] Care Team Providers Care Adjunct Professor Of English Name Role Phone Golden Newell MD Primary Care Provider [phone] Encounter Details Date Type Department Care Team (Late Contact Info) Description 10/16/2024 Community [facility] [address] [place] [address] Hao Mora MD [address] [facility] [address] [place] [address] Social History Tobacco Use Types Packs/Day Years [...] Description 01/31/2025 9:15 AM EDT [facility] Testing [facility] [address] [place] [address] 02/07/2025 9:00 AM EDT Appointment [facility] [address] [place] [address] Abbey Lancaster MD [address] [place] [address] documented as of this encounter Visit Diagnoses Not on filedocumented in this encounter Care Teams Adjunct Professor Of English Relationship Specialty Start Date End Date Golden Newell MD [address] [facility] [address] [place] [address] PCP - General 12/04/20 documented as of this encounter
--- NOTE | 2025-01-27 19:03 | CT_ITS ---
PROCEDURE INFORMATION: Exam: CT Abdomen And Pelvis With Contrast Exam date and time: 01/27/2025 8:57 PM Age: 69 years old Clinical indication: Abdominal pain; Flank; Right lower quadrant (rlq); Appendix & gb removed. Rlq pain; Additional info: Right flank pain TECHNIQUE: Imaging protocol: Computed tomography of the abdomen and pelvis with contrast. Radiation optimization: All CT scans at this facility use at least one of these dose optimization techniques: automated exposure control; mA and/or kV adjustment per patient size (includes targeted exams where dose is matched to clinical indication); or iterative reconstruction. Contrast material: ISOVUE; Contrast volume: 75 ml; Contrast route: IV; COMPARISON: MR MRCP WO CON 09/16/2024 10:25 AM FINDINGS: Heart: Borderline cardiomegaly. Diaphragm: Small hiatal hernia. Liver: Unchanged intrahepatic and extrahepatic biliary dilatation. Enhancing right hepatic lesion on image 31 series 3 is unchanged and likely hemangioma. Gallbladder and biliary ducts: Gallbladder is absent. Pancreas: Cystic lesion in the pancreatic tail measures 3.5 cm, previously 3.1 cm in 2020. Over the last 4 years, septations have developed in this cystic mass and the pancreatic tail atrophy has worsened. Main pancreatic duct measures 21 mm, 19 mm in 202. Spleen: Normal. No splenomegaly. Adrenal glands: Normal. No mass. Kidneys and ureters: Right hydronephrosis with perinephric and periureteral edema. There is right ureteral wall thickening. Stomach and bowel: Mild sigmoid diverticulosis without diverticulitis. Appendix: Appendix is absent. Intraperitoneal space: Unremarkable. No free air. No significant fluid collection. Vasculature: The arteries demonstrate mild atherosclerotic disease. Lymph nodes: Unremarkable. No enlarged lymph nodes. Urinary bladder: There is high attenuation material in the posterior urinary bladder that appears to be new compared to prior study in 2021. Reproductive: Calcified fibroids. Bones/joints: Unremarkable. No acute fracture. Soft tissues: Unremarkable. IMPRESSION: 1. Right hydronephrosis with perinephric and periureteral edema. There is right ureteral wall thickening. This could be due to a partially calcified stone at the UVJ. Please exclude ascending urinary tract infection, which could produce a similar appearance. 2. There is high attenuation material in the posterior urinary bladder that appears to be new compared to prior study in 2021. This could be a calcified mass or numerous tiny stones. Consider malignancy screening. 3. Cystic lesion in the pancreatic tail measures 3.5 cm, previously 3.1 cm in 202. Over the last 4 years, septations have developed in this cystic mass and the pancreatic tail atrophy has worsened. This is worrisome for intraductal papillary mucinous neoplasm, which can have malignant potential. Recommend MRCP with contrast outpatient follow-up versus ERCP and biopsy. 4. Main pancreatic duct measures 21 mm, 19 mm in 2020. 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
--- NOTE | 2025-01-27 19:07 | HMH.EDGENADL ---
Discharge Plan Disposition Patient Disposition: Xfer Other Prescriptions Prescriptions: No Action omeprazole 40 mg capsule,delayed release(DR/EC) 40 mg PO DAILY aspirin 81 mg tablet,delayed release (DR/EC) 81 mg PO DAILY atorvastatin 80 mg tablet 80 mg PO DAILY Referrals Follow up/Referrals: Selene Foster PA [Primary Care Provider, Medical] - See instructions Clinical Impressions Clinical Impression: Hydronephrosis, Perinephric fluid collection, Acute UTI (urinary tract infection), Hydroureter, Mass of pancreas Stand Alone Forms Stand Alone Forms: Transfer Record - ED Instructions Patient Instructions: DI for Acute Abdominal Pain Print Language Print Language: Liberian Discharge ED Provider: Lizzeth Mcarthur General Adult HPI <Elicia George (ED), [employer] - Last Filed: 01/27/25 22:49> General Chief complaint: Abdominal Pain Stated complaint: Sharp pain in right side Time Seen by Provider: 01/27/25 18:58 Mode of Arrival: Wheelchair Source of Information: Patient Description of Symptoms (Recalled from ER Triage Doc. by RN): Patient states she has been having pain in her right side for a little over an hour. Also had similar pain on Monday01/25/25. Denies vomiting, Had a BM this morning. History of Present Illness HPI narrative: 69-year-old female presents to the ED today having right sided pain since 5:30 PM. She says she denies vomiting or nausea. She had diarrhea this morning. She currently denies any other symptoms at this time no chest pain or shortness of breath. Related Data Home Medications ?Medication ?Instructions ?Recorded ?Confirmed aspirin 81 mg tablet,delayed 81 mg PO DAILY 08/01/22 09/30/24 release atorvastatin 80 mg tablet 80 mg PO DAILY 08/01/22 09/30/24 omeprazole 40 mg capsule,delayed 40 mg PO DAILY 09/17/24 09/30/24 release Allergies Allergy/AdvReac Type Severity Reaction Status Date / Time No Known Allergies Allergy Verified 01/27/25 19:08 PFSH <Elicia George (ED), [employer] - Last Filed: 01/27/25 22:49> [facility] Disclaimer: The information contained in this section may have been updated after the patient was seen, as this information can be updated by other users. Medical History Dizziness First noticed following previous stroke. Cardiac work up so far negative for PAF but she has LVH and traces of Tricuspide regurgitation, (increased risk for PAF). LICO screen positive, SS-A: 6.8, (H), anticardiolipin IgA: 12, (H). Rheumatology referral requested 11/01/2022. Bradycardia Cryptogenic stroke On aspirin for secondary stroke prevention Family History Other Hypertension Social History Smoking Status: Former smoker alcohol intake: never substance use type: denies use current occupational status: retired Travel in the last 8 weeks?: None household members: spouse housing: house marital status: Have you lived/traveled outside [place] in past 30 days?: No Contact w/someone who lives/traveled outside US past 30 days?: No Exposure to someone with infectious disease in past 14 days?: No Do you have a fever (greater than 100.4 F or 38 C)?: No Have you tested positive for COVID-19?: No Exposed to someone with COVID-19 in past 14 days?: No Do you have a sore throat?: No Do you have a cough?: No Do you have any weakness?: No Do you have any diarrhea?: No Are you experiencing any unusual bleeding?: No Do you have any muscle aches/pain?: No Do you have any abdominal pain?: No Are you experiencing loss of taste or smell?: No Other Medical History Have you received the Flu Vaccine for this season: Yes Have you received the Pneumonia Vaccine: Yes <Elicia George (ED), [employer] - Last Filed: 01/27/25 22:49> ROS Obtained: Yes Systems reviewed as appropriate & no additional complaints except as documented Constitutional Constitutional: Reports as per HPI Physical Exam <Elicia George (ED), [employer] - Last Filed: 01/27/25 22:49> General General appearance: alert Head Head exam: normocephalic Eye Eye exam: Present PERRL and EOMI ENT ENT exam: Present normal oropharynx and mucous membranes moist Neck Neck exam: Present full ROM and trachea midline Respiratory Respiratory exam: Present normal lung sounds bilaterally Cardiovascular Cardiovascular exam: Present regular rate, normal rhythm, normal heart sounds, +S1 and +S2 Abdominal Exam Abdominal exam: Present soft and normal bowel sounds Abdominal tenderness: Present RUQ and RLQ Extremities Exam Extremities exam: Present normal inspection, full ROM and normal capillary refill Neurological Exam Neurological exam: Present alert and oriented X3 Skin Skin exam: Present warm, dry and intact Medical Decision Making <Elicia Garricktrevin (ED), [employer] - Last Filed: 01/27/25 22:49> Medical Records Screening: Per USPSTF and CDC recommendations, given the prevalence of disease in our region, it is our hospital?s policy to screen for HIV and viral Hepatitis for all patients aged 18 and over and those with ongoing risk factors. Vital Signs: 01/27/25 18:57 01/27/25 19:31 01/27/25 20:02 Temperature 97.3 F L Temperature Source Oral Pulse Rate 57 L 59 L Pulse Rate [Right Brachial] 63 Respiratory Rate 16 20 Blood Pressure 188/91 H 188/97 H Blood Pressure [Right Arm] 205/118 H Blood Pressure Mean Blood Pressure Mean [Right Arm] 147 Blood Pressure Source [Right Arm] Automatic Cuff Blood Pressure Position [Right Arm] Sitting 02 Sat by Pulse Oximetry 99 99 98 Oxygen Delivery Method Room Air 01/27/25 20:31 01/27/25 21:40 01/27/25 22:01 Temperature Temperature Source Pulse Rate 67 56 L 58 L Pulse Rate [Right Brachial] Respiratory Rate Blood Pressure 164/106 H 151/73 H 143/83 H Blood Pressure [Right Arm] Blood Pressure Mean Blood Pressure Mean [Right Arm] Blood Pressure Source [Right Arm] Blood Pressure Position [Right Arm] 02 Sat by Pulse Oximetry 96 95 96 Oxygen Delivery Method 01/27/25 22:30 01/27/25 23:00 01/27/25 23:30 Temperature Temperature Source Pulse Rate 49 L 57 L 63 Pulse Rate [Right Brachial] Respiratory Rate 17 15 15 Blood Pressure 150/81 H 155/73 H 142/65 H Blood Pressure [Right Arm] Blood Pressure Mean 100 100 104 Blood Pressure Mean [Right Arm] Blood Pressure Source [Right Arm] Blood Pressure Position [Right Arm] 02 Sat by Pulse Oximetry 95 94 L 97 Oxygen Delivery Method 01/28/25 00:00 01/28/25 00:30 01/28/25 01:01 Temperature Temperature Source Pulse Rate 46 L 53 L 60 Pulse Rate [Right Brachial] Respiratory Rate 12 11 L 16 Blood Pressure 134/76 131/77 114/66 Blood Pressure [Right Arm] Blood Pressure Mean 95 90 Blood Pressure Mean [Right Arm] Blood Pressure Source [Right Arm] Blood Pressure Position [Right Arm] 02 Sat by Pulse Oximetry 96 96 97 Oxygen Delivery Method 01/28/25 01:31 Temperature Temperature Source Pulse Rate 53 L Pulse Rate [Right Brachial] Respiratory Rate 13 Blood Pressure 119/61 Blood Pressure [Right Arm] Blood Pressure Mean Blood Pressure Mean [Right Arm] Blood Pressure Source [Right Arm] Blood Pressure Position [Right Arm] 02 Sat by Pulse Oximetry 95 Oxygen Delivery Method Lab Data Lab Results 01/27/25 17:25: WBC 7.0, RBC 4.77, Hgb 14.7, Hct 43.6, MCV 91.4, MCH 30.8, MCHC 33.7, RDW 13.0, Plt Count 154, MPV 10.5 H, Neut % (Auto) 45.9, Lymph % (Auto) 42.9, [place] % (Auto) 9.4 H, Eos % (Auto) 1.4, Baso % (Auto) 0.3, Neut # (Auto) 3.2, Lymph # (Auto) 3.0, [place] # (Auto) 0.7, Eos # (Auto) 0.1, Baso # (Auto) 0.0, Sodium 140, Potassium 4.0, Chloride 107, Carbon Dioxide 27, Anion Gap 10.0, BUN 20 H, Creatinine 0.80, Estimated Creat Clear 61, Estimated GFR 71, Est GFR ( Amer) 86, Glucose 119 H, Lactate 1.3, Calcium 9.6, Magnesium 1.8, Total Bilirubin 0.5, AST 29, ALT 20, Alkaline Phosphatase 97, Troponin I < 0.01, Total Protein 7.4, Albumin 4.5, Globulin 2.9, Albumin/Globulin Ratio 1.6, Lipase 96 01/27/25 21:30: Urine Color Yellow, Urine Appearance Cloudy, Urine pH 7.5, Ur Specific [place] 1.015, Urine Protein Negative, Urine Glucose (UA) Negative, Urine Ketones Negative, Urine Blood Trace-i, Urine Nitrate Positive A, Urine Bilirubin Negative, Urine Urobilinogen 0.2, Ur Leukocyte Esterase Trace, Urine RBC 5-10, Urine WBC 5-10, Ur Squamous Epith Cells None, Amorphous Sediment 1+, Urine Bacteria 3+ 01/27/25 17:25 01/27/25 17:25 Orders (Tests/Meds): ED MEDICATIONS Generic Name Dose Route Start Last Admin Trade Name Jonathan PRN Reason Stop Dose Admin Sodium Chloride 10 ml 01/27/25 20:57 01/27/25 20:59 Sodium Chloride 0.9% 10ml Syr (Rad Only) IV 02/26/25 20:56 10 ml NEEDED PRN Administration Maintain IV Site Discontinued Medications Generic Name Dose Route Start Last Admin Trade Name Jonathan PRN Reason Stop Dose Admin Hydromorphone HCl 0.5 mg 01/27/25 20:38 01/27/25 20:49 Hydromorphone 2mg/Ml Syringe IV 01/27/25 20:39 0.5 mg ONCE ONE Administration Sodium Chloride 1,000 mls @ 999 mls/hr 01/27/25 19:03 01/27/25 19:30 Sod Chlor 0.9% 1000ml Bag IV 01/27/25 20:03 999 mls/hr .Q1H1M ONE Administration Ceftriaxone Sodium 2 gm/ 100 mls @ 200 mls/hr 01/27/25 22:15 01/27/25 22:59 Sodium Chloride IV 01/27/25 22:44 200 mls/hr ONCE ONE Administration Iopamidol 75 ml 01/27/25 20:57 01/27/25 20:59 Iopamidol-370 (76%);100ml Bottle IV 01/27/25 20:58 75 ml ONCE ONE Administration Morphine Sulfate 4 mg 01/27/25 19:03 01/27/25 19:30 Morphine 4mg/Ml Syringe IV 01/27/25 19:04 4 mg ONCE ONE Administration Ondansetron HCl 4 mg 01/27/25 19:03 01/27/25 19:29 Ondansetron 4mg/2ml Vial IV 01/27/25 19:04 4 mg ONCE ONE Administration Ondansetron HCl 4 mg 01/27/25 21:51 01/27/25 21:55 Ondansetron 4mg/2ml Vial IV 01/27/25 21:52 4 mg ONCE ONE Administration Promethazine HCl 12.5 mg 01/27/25 23:35 01/27/25 23:44 Promethazine Hcl 25mg/Ml 1ml Vial IV 01/27/25 23:36 12.5 mg ONCE ONE Administration Sodium Chloride 25 ml 01/27/25 23:35 01/27/25 23:44 Sodium Chloride 0.9% 25ml Bag IV 01/27/25 23:36 25 ml ONCE ONE Administration ORDERS Category Date Time Status CT abdomen pelvis w con Stat Cat Scan 01/27/25 19:03 Completed CBC [Complete Blood Count Auto Diff] Stat Lab 01/27/25 17:25 Completed Comprehensive Metabolic Panel Stat Lab 01/27/25 17:25 Completed Lactic Acid Stat Lab 01/27/25 17:25 Completed Lipase Stat Lab 01/27/25 17:25 Completed Magnesium Stat Lab 01/27/25 17: Completed Trop I [Troponin I] Stat Lab 01/27/25 17: Completed Urinalysis and Microscopic Stat Lab 01/27/25 21:30 Completed Blood Culture Stat Micro 01/27/25 22:50 Received Urine Culture Stat Micro 01/27/25 21:30 Received Medical Decision Narrative: patient is a 69-year-old female presenting to the emergency department for evaluation of right side pain that started this afternoon at 5:30 PM. Patient has elevated blood pressure and appears in pain upon arrival, afebrile. Differential diagnosis includes ductal dilatation as she has a history of this, cholecystitis, appendicitis, among others. Workup will be conducted with hematologic labs, specific imaging. Initial inventions include crystalloid bolus, analgesics. Initial workup reviewed by me [hematologic labs are remarkable for normal white count. Nitrate positive UTI. Patient has a obstructive stone in the UVJ. She also has some chronic pancreatic tail atrophy that is being worked up at . She is going to have an MRCP and a biopsy the at . We are currently calling [facility] in [place] to see who has a urologist to send patient to for urology workup. <Lizzeth Mcarthur MD - Last Filed: 01/27/25 23:05> [facility] Inquiry Pt receiving controlled substance: No Vital Signs: 01/27/25 18:57 01/27/25 19:31 01/27/25 20:02 Temperature 97.3 F L Temperature Source Oral Pulse Rate 57 L 59 L Pulse Rate [Right Brachial] 63 Respiratory Rate 16 20 Blood Pressure 188/91 H 188/97 H Blood Pressure [Right Arm] 205/118 H Blood Pressure Mean Blood Pressure Mean [Right Arm] 147 Blood Pressure Source [Right Arm] Automatic Cuff Blood Pressure Position [Right Arm] Sitting 02 Sat by Pulse Oximetry 99 99 98 Oxygen Delivery Method Room Air 01/27/25 20:31 01/27/25 21:40 01/27/25 22:01 Temperature Temperature Source Pulse Rate 67 56 L 58 L Pulse Rate [Right Brachial] Respiratory Rate Blood Pressure 164/106 H 151/73 H 143/83 H Blood Pressure [Right Arm] Blood Pressure Mean Blood Pressure Mean [Right Arm] Blood Pressure Source [Right Arm] Blood Pressure Position [Right Arm] 02 Sat by Pulse Oximetry 96 95 96 Oxygen Delivery Method 01/27/25 22:30 01/27/25 23:00 01/27/25 23:30 Temperature Temperature Source Pulse Rate 49 L 57 L 63 Pulse Rate [Right Brachial] Respiratory Rate 17 15 15 Blood Pressure 150/81 H 155/73 H 142/65 H Blood Pressure [Right Arm] Blood Pressure Mean 100 100 104 Blood Pressure Mean [Right Arm] Blood Pressure Source [Right Arm] Blood Pressure Position [Right Arm] 02 Sat by Pulse Oximetry 95 94 L 97 Oxygen Delivery Method 01/28/25 00:00 01/28/25 00:30 01/28/25 01:01 Temperature Temperature Source Pulse Rate 46 L 53 L 60 Pulse Rate [Right Brachial] Respiratory Rate 12 11 L 16 Blood Pressure 134/76 131/77 114/66 Blood Pressure [Right Arm] Blood Pressure Mean 95 90 Blood Pressure Mean [Right Arm] Blood Pressure Source [Right Arm] Blood Pressure Position [Right Arm] 02 Sat by Pulse Oximetry 96 96 97 Oxygen Delivery Method 01/28/25 01:31 Temperature Temperature Source Pulse Rate 53 L Pulse Rate [Right Brachial] Respiratory Rate 13 Blood Pressure 119/61 Blood Pressure [Right Arm] Blood Pressure Mean Blood Pressure Mean [Right Arm] Blood Pressure Source [Right Arm] Blood Pressure Position [Right Arm] 02 Sat by Pulse Oximetry 95 Oxygen Delivery Method Lab Data Lab Results 01/27/25 17:25: WBC 7.0, RBC 4.77, Hgb 14.7, Hct 43.6, MCV 91.4, MCH 30.8, MCHC 33.7, RDW 13.0, Plt Count 154, MPV 10.5 H, Neut % (Auto) 45.9, Lymph % (Auto) 42.9, [place] % (Auto) 9.4 H, Eos % (Auto) 1.4, Baso % (Auto) 0.3, Neut # (Auto) 3.2, Lymph # (Auto) 3.0, [place] # (Auto) 0.7, Eos # (Auto) 0.1, Baso # (Auto) 0.0, Sodium 140, Potassium 4.0, Chloride 107, Carbon Dioxide 27, Anion Gap 10.0, BUN 20 H, Creatinine 0.80, Estimated Creat Clear 61, Estimated GFR 71, Est GFR ( Amer) 86, Glucose 119 H, Lactate 1.3, Calcium 9.6, Magnesium 1.8, Total Bilirubin 0.5, AST 29, ALT 20, Alkaline Phosphatase 97, Troponin I < 0.01, Total Protein 7.4, Albumin 4.5, Globulin 2.9, Albumin/Globulin Ratio 1.6, Lipase 96 01/27/25 21:30: Urine Color Yellow, Urine Appearance Cloudy, Urine pH 7.5, Ur Specific [place] 1.015, Urine Protein Negative, Urine Glucose (UA) Negative, Urine Ketones Negative, Urine Blood Trace-i, Urine Nitrate Positive A, Urine Bilirubin Negative, Urine Urobilinogen 0.2, Ur Leukocyte Esterase Trace, Urine RBC 5-10, Urine WBC 5-10, Ur Squamous Epith Cells None, Amorphous Sediment 1+, Urine Bacteria 3+ Orders (Tests/Meds): ED MEDICATIONS Generic Name Dose Route Start Last Admin Trade Name Freq PRN Reason Stop Dose Admin Sodium Chloride 10 ml 01/27/25 20:57 01/27/25 20:59 Sodium Chloride 0.9% 10ml Syr (Rad Only) IV 02/26/25 20:56 10 ml NEEDED PRN Administration Maintain IV Site Discontinued Medications Generic Name Dose Route Start Last Admin Trade Name Freq PRN Reason Stop Dose Admin Hydromorphone HCl 0.5 mg 01/27/25 20:38 01/27/25 20:49 Hydromorphone 2mg/Ml Syringe IV 01/27/25 20:39 0.5 mg ONCE ONE Administration Sodium Chloride 1,000 mls @ 999 mls/hr 01/27/25 19:03 01/27/25 19:30 Sod Chlor 0.9% 1000ml Bag IV 01/27/25 20:03 999 mls/hr .Q1H1M ONE Administration Ceftriaxone Sodium 2 gm/ 100 mls @ 200 mls/hr 01/27/25 22:15 01/27/25 22:59 Sodium Chloride IV 01/27/25 22:44 200 mls/hr ONCE ONE Administration Iopamidol 75 ml 01/27/25 20:57 01/27/25 20:59 Iopamidol-370 (76%);100ml Bottle IV 01/27/25 20:58 75 ml ONCE ONE Administration Morphine Sulfate 4 mg 01/27/25 19:03 01/27/25 19:30 Morphine 4mg/Ml Syringe IV 01/27/25 19:04 4 mg ONCE ONE Administration Ondansetron HCl 4 mg 01/27/25 19:03 01/27/25 19:29 Ondansetron 4mg/2ml Vial IV 01/27/25 19:04 4 mg ONCE ONE Administration Ondansetron HCl 4 mg 01/27/25 21:51 01/27/25 21:55 Ondansetron 4mg/2ml Vial IV 01/27/25 21:52 4 mg ONCE ONE Administration Promethazine HCl 12.5 mg 01/27/25 23:35 01/27/25 23:44 Promethazine Hcl 25mg/Ml 1ml Vial IV 01/27/25 23:36 12.5 mg ONCE ONE Administration Sodium Chloride 25 ml 01/27/25 23:35 01/27/25 23:44 Sodium Chloride 0.9% 25ml Bag IV 01/27/25 23:36 25 ml ONCE ONE Administration ORDERS Category Date Time Status CT abdomen pelvis w con Stat Cat Scan 01/27/25 19:03 Completed CBC [Complete Blood Count Auto Diff] Stat Lab 01/27/25 17:25 Completed Comprehensive Metabolic Panel Stat Lab 01/27/25 17:25 Completed Lactic Acid Stat Lab 01/27/25 17:25 Completed Lipase Stat Lab 01/27/25 17:25 Completed Magnesium Stat Lab 01/27/25 17:25 Completed Trop I [Troponin I] Stat Lab 01/27/25 17:25 Completed Urinalysis and Microscopic Stat Lab 01/27/25 21:30 Completed Blood Culture Stat Micro 01/27/25 22:50 Received Urine Culture Stat Micro 01/27/25 21:30 Received Medical Decision Narrative: patient is a 69-year-old female presenting to the emergency department for evaluation of right side pain that started this afternoon at 5:30 PM. Patient has elevated blood pressure and appears in pain upon arrival, afebrile. Differential diagnosis includes ductal dilatation as she has a history of this, cholecystitis, appendicitis, among others. Workup will be conducted with hematologic labs, specific imaging. Initial inventions include crystalloid bolus, analgesics. Initial workup reviewed by me [hematologic labs are remarkable for normal white count. Nitrate positive UTI. Patient has a obstructive stone in the UVJ. She also has some chronic pancreatic tail atrophy that is being worked up at . She is going to have an MRCP and a biopsy the at . We are currently calling [facility] in [place] to see who has a urologist to send patient to for urology workup. I was consulted by the JAMISON, and we discussed the complexity of the problems being addressed. I approved the treatment and management plan for this patient's care in the emergency department, thus performing a substantive portion of the medical decision making. Lizzeth Mcarthur MD, VAUGHN, FACEP This is Dr. Mcarthur I reviewed the patient's images and history. She has a history of a pancreatic head and tail mass she has had an MRCP in the past no definitive abnormality but still on the differential remains possible pancreatic adenocarcinoma or mucinous carcinoma that needs to be looked into further in the future. Patient has not had significant hydronephrosis on the right presenting today with right flank pain. She did have tenderness according to our JAMISON and has a nitrite positive urine she has been given Rocephin for that. However on her CT scan today in addition to the chronic pancreatic findings which are little bit worse than they have in the past there is significant right-sided hydronephrosis and hydroureter and Ameya nephric stranding as well as perinephric and periureteral edema. There is also some calcifications within the bladder and a possible distal UVJ stone that could be causing an obstruction. No definitive cause of the obstruction at the moment. But given the fact that this is infected this needs urgent urology intervention or evaluation. I was eventually able to discuss the case with Dr. Rodriguez who is on-call for [facility] who was willing to manage the patient the patient was ultimately accepted by Dr. Baxter. <Schuyler Pavon MD - Last Filed: 01/28/25 03:52> Vital Signs: 01/27/25 18:57 01/27/25 19:31 01/27/25 20:02 Temperature 97.3 F L Temperature Source Oral Pulse Rate 57 L 59 L Pulse Rate [Right Brachial] 63 Respiratory Rate 16 20 Blood Pressure 188/91 H 188/97 H Blood Pressure [Right Arm] 205/118 H Blood Pressure Mean Blood Pressure Mean [Right Arm] 147 Blood Pressure Source [Right Arm] Automatic Cuff Blood Pressure Position [Right Arm] Sitting 02 Sat by Pulse Oximetry 99 99 98 Oxygen Delivery Method Room Air 01/27/25 20:31 01/27/25 21:40 01/27/25 22:01 Temperature Temperature Source Pulse Rate 67 56 L 58 L Pulse Rate [Right Brachial] Respiratory Rate Blood Pressure 164/106 H 151/73 H 143/83 H Blood Pressure [Right Arm] Blood Pressure Mean Blood Pressure Mean [Right Arm] Blood Pressure Source [Right Arm] Blood Pressure Position [Right Arm] 02 Sat by Pulse Oximetry 96 95 96 Oxygen Delivery Method 01/27/25 22:30 01/27/25 23:00 01/27/25 23:30 Temperature Temperature Source Pulse Rate 49 L 57 L 63 Pulse Rate [Right Brachial] Respiratory Rate 17 15 15 Blood Pressure 150/81 H 155/73 H 142/65 H Blood Pressure [Right Arm] Blood Pressure Mean 100 100 104 Blood Pressure Mean [Right Arm] Blood Pressure Source [Right Arm] Blood Pressure Position [Right Arm] 02 Sat by Pulse Oximetry 95 94 L 97 Oxygen Delivery Method 01/28/25 00:00 01/28/25 00:30 01/28/25 01:01 Temperature Temperature Source Pulse Rate 46 L 53 L 60 Pulse Rate [Right Brachial] Respiratory Rate 12 11 L 16 Blood Pressure 134/76 131/77 114/66 Blood Pressure [Right Arm] Blood Pressure Mean 95 90 Blood Pressure Mean [Right Arm] Blood Pressure Source [Right Arm] Blood Pressure Position [Right Arm] 02 Sat by Pulse Oximetry 96 96 97 Oxygen Delivery Method 01/28/25 01:31 Temperature Temperature Source Pulse Rate 53 L Pulse Rate [Right Brachial] Respiratory Rate 13 Blood Pressure 119/61 Blood Pressure [Right Arm] Blood Pressure Mean Blood Pressure Mean [Right Arm] Blood Pressure Source [Right Arm] Blood Pressure Position [Right Arm] 02 Sat by Pulse Oximetry 95 Oxygen Delivery Method Lab Data Lab Results 01/27/25 17:25: WBC 7.0, RBC 4.77, Hgb 14.7, Hct 43.6, MCV 91.4, MCH 30.8, MCHC 33.7, RDW 13.0, Plt Count 154, MPV 10.5 H, Neut % (Auto) 45.9, Lymph % (Auto) 42.9, [place] % (Auto) 9.4 H, Eos % (Auto) 1.4, Baso % (Auto) 0.3, Neut # (Auto) 3.2, Lymph # (Auto) 3.0, [place] # (Auto) 0.7, Eos # (Auto) 0.1, Baso # (Auto) 0.0, Sodium 140, Potassium 4.0, Chloride 107, Carbon Dioxide 27, Anion Gap 10.0, BUN 20 H, Creatinine 0.80, Estimated Creat Clear 61, Estimated GFR 71, Est GFR ( Amer) 86, Glucose 119 H, Lactate 1.3, Calcium 9.6, Magnesium 1.8, Total Bilirubin 0.5, AST 29, ALT 20, Alkaline Phosphatase 97, Troponin I < 0.01, Total Protein 7.4, Albumin 4.5, Globulin 2.9, Albumin/Globulin Ratio 1.6, Lipase 96 01/27/25 21:30: Urine Color Yellow, Urine Appearance Cloudy, Urine pH 7.5, Ur Specific [place] 1.015, Urine Protein Negative, Urine Glucose (UA) Negative, Urine Ketones Negative, Urine Blood Trace-i, Urine Nitrate Positive A, Urine Bilirubin Negative, Urine Urobilinogen 0.2, Ur Leukocyte Esterase Trace, Urine RBC 5-10, Urine WBC 5-10, Ur Squamous Epith Cells None, Amorphous Sediment 1+, Urine Bacteria 3+ Orders (Tests/Meds): ED MEDICATIONS Generic Name Dose Route Start Last Admin Trade Name Freq PRN Reason Stop Dose Admin Sodium Chloride 10 ml 01/27/25 20:57 01/27/25 20:59 Sodium Chloride 0.9% 10ml Syr (Rad Only) IV 02/26/25 20:56 10 ml NEEDED PRN Administration Maintain IV Site Discontinued Medications Generic Name Dose Route Start Last Admin Trade Name Freq PRN Reason Stop Dose Admin Hydromorphone HCl 0.5 mg 01/27/25 20:38 01/27/25 20:49 Hydromorphone 2mg/Ml Syringe IV 01/27/25 20:39 0.5 mg ONCE ONE Administration Sodium Chloride 1,000 mls @ 999 mls/hr 01/27/25 19:03 01/27/25 19:30 Sod Chlor 0.9% 1000ml Bag IV 01/27/25 20:03 999 mls/hr .Q1H1M ONE Administration Ceftriaxone Sodium 2 gm/ 100 mls @ 200 mls/hr 01/27/25 22:15 01/27/25 22:59 Sodium Chloride IV 01/27/25 22:44 200 mls/hr ONCE ONE Administration Iopamidol 75 ml 01/27/25 20:57 01/27/25 20:59 Iopamidol-370 (76%);100ml Bottle IV 01/27/25 20:58 75 ml ONCE ONE Administration Morphine Sulfate 4 mg 01/27/25 19:03 01/27/25 19:30 Morphine 4mg/Ml Syringe IV 01/27/25 19:04 4 mg ONCE ONE Administration Ondansetron HCl 4 mg 01/27/25 19:03 01/27/25 19:29 Ondansetron 4mg/2ml Vial IV 01/27/25 19:04 4 mg ONCE ONE Administration Ondansetron HCl 4 mg 01/27/25 21:51 01/27/25 21:55 Ondansetron 4mg/2ml Vial IV 01/27/25 21:52 4 mg ONCE ONE Administration Promethazine HCl 12.5 mg 01/27/25 23:35 01/27/25 23:44 Promethazine Hcl 25mg/Ml 1ml Vial IV 01/27/25 23:36 12.5 mg ONCE ONE Administration Sodium Chloride 25 ml 01/27/25 23:35 01/27/25 23:44 Sodium Chloride 0.9% 25ml Bag IV 01/27/25 23:36 25 ml ONCE ONE Administration ORDERS Category Date Time Status CT abdomen pelvis w con Stat Cat Scan 01/27/25 19:03 Completed CBC [Complete Blood Count Auto Diff] Stat Lab 01/27/25 17:25 Completed Comprehensive Metabolic Panel Stat Lab 01/27/25 17:25 Completed Lactic Acid Stat Lab 01/27/25 17:25 Completed Lipase Stat Lab 01/27/25 17:25 Completed Magnesium Stat Lab 01/27/25 17:25 Completed Trop I [Troponin I] Stat Lab 01/27/25 17:25 Completed Urinalysis and Microscopic Stat Lab 01/27/25 21:30 Completed Blood Culture Stat Micro 01/27/25 22:50 Received Urine Culture Stat Micro 01/27/25 21:30 Received Medical Decision Narrative: patient is a 69-year-old female presenting to the emergency department for evaluation of right side pain that started this afternoon at 5:30 PM. Patient has elevated blood pressure and appears in pain upon arrival, afebrile. Differential diagnosis includes ductal dilatation as she has a history of this, cholecystitis, appendicitis, among others. Workup will be conducted with hematologic labs, specific imaging. Initial inventions include crystalloid bolus, analgesics. Initial workup reviewed by me [hematologic labs are remarkable for normal white count. Nitrate positive UTI. Patient has a obstructive stone in the UVJ. She also has some chronic pancreatic tail atrophy that is being worked up at . She is going to have an MRCP and a biopsy the at . We are currently calling [facility] in [place] to see who has a urologist to send patient to for urology workup. I was consulted by the JAMISON, and we discussed the complexity of the problems being addressed. I approved the treatment and management plan for this patient's care in the emergency department, thus performing a substantive portion of the medical decision making. Lzizeth Mcarthur MD, [facility], [facility] This is Dr. Mcarthur I reviewed the patient's images and history. She has a history of a pancreatic head and tail mass she has had an MRCP in the past no definitive abnormality but still on the differential remains possible pancreatic adenocarcinoma or mucinous carcinoma that needs to be looked into further in the future. Patient has not had significant hydronephrosis on the right presenting today with right flank pain. She did have tenderness according to our JAMISON and has a nitrite positive urine she has been given Rocephin for that. However on her CT scan today in addition to the chronic pancreatic findings which are little bit worse than they have in the past there is significant right-sided hydronephrosis and hydroureter and Ameya nephric stranding as well as perinephric and periureteral edema. There is also some calcifications within the bladder and a possible distal UVJ stone that could be causing an obstruction. No definitive cause of the obstruction at the moment. But given the fact that this is infected this needs urgent urology intervention or evaluation. I was eventually able to discuss the case with Dr. Rodriguez who is on-call for [facility] who was willing to manage the patient the patient was ultimately accepted by Dr. Baxter. Patient was ultimately discharged in stable condition and transferred to [facility] for definitive management. Critical Care <Lizzeth Mcarthur MD - Last Filed: 01/27/25 23:05> Critical Care Time Critical Care Time: Yes Attestation: On 01/27/25, the high probability of a clinically significant, sudden or life threatening deterioration of the following system(s) required my full and direct attention, intervention and personal management. The time I documented below is in addition to time spent performing reported procedures but includes the following listed in this critical care notation. Total Time Total Critical Care Time: 35
--- NOTE | 2025-01-27 19:12 | ECG_ITS ---
APPROVED REPORT Exam: Resting ECG HR:52 bpm ECG Measurements Heart Rate 52 AXES OR 158 P 70 QRSd 89 QRS -10 QT 447 T 60 QTc 427 Conclusion SINUS BRADYCARDIA WITH SINUS ARRHYTHMIA POSSIBLE ANTERIOR MYOCARDIAL INFARCTION , OF INDETERMINATE AGE [30 ms Q WAVE IN V3/V4, OR R < 0.2 mV IN V4] ABNORMAL ECG UNCONFIRMED REPORT Electronically signed by : Mamadou Mcarthur, 01/27/2025 23:21:57
[2025-01-27] MEDS: ONDANSETRON 4MG/2ML VIAL 4 MG IV ×2 (19:29→21:55)
[2025-01-27] MEDS: 0.9 % SODIUM CHLORIDE 1000ML 1,000 ML 999 ML IV (19:30)
[2025-01-27] MEDS: MORPHINE 4MG/ML SYRINGE 4 MG IV (19:30)
--- NOTE | 2025-01-27 19:38 | PC.NURSE ---
rounded on pt. pt medicated per MAR. call light in reach. at bedside.
[2025-01-27 19:39] LABS: Hematocrit 43.6 % (37.0-47.0); Hemoglobin 14.7 g/dL (12.2-16.2); Immature Granulocytes % 0.1 %; Mean Corpuscular HGB Conc 33.7 g/dL (31.8-35.4); Mean Corpuscular Hemoglobin 30.8 pg (27.0-31.2); Mean Corpuscular Volume 91.4 fl (81-99); Nucleated Red Blood Cells % 0 %; Platelet Count 154 K/mm3 (142-424); Red Blood Count 4.77 M/mm3 (4.20-5.40); Red Cell Distribution Width-SD 44.3 fL; White Blood Count 7.0 K/mm3 (4.8-10.8)
[2025-01-27 19:58] LABS: Alanine Aminotransferase 20 U/L (12-78); Albumin Level 4.5 g/dl (3.5-5.0); Albumin/Globulin Ratio 1.6 (1.1-1.8); Alkaline Phosphatase 97 U/L (38-126); Anion Gap 10.0 mEq/L (5-15); Aspartate Amino Transferase 29 U/L (14-36); Bilirubin,Total 0.5 mg/dl (0.2-1.3); Blood Urea Nitrogen 20 mg/dl (7-17); Calcium 9.6 mg/dl (8.4-10.2); Carbon Dioxide 27 mmol/L (22.0-30.0); Chloride 107 mmol/L (98-107); Creatinine Clearance Estimated 61 mL/min (50-200); Creatinine,Serum 0.80 mg/dl (0.52-1.04); Estimated Glomerular Filt Rate 71 ml/min (>60); GFR (African American) 86 ML/MIN (>60); Globulin 2.9 g/dL (1.3-3.2); Glucose 119 mg/dl (74-100); Lipase 96 U/L (23-300); Magnesium 1.8 mg/dl (1.6-2.3); Potassium 4.0 mmoL/L (3.5-5.1); Sodium 140 mmol/L (136-145); Total Protein,Serum 7.4 g/dl (6.3-8.2)
[2025-01-27 20:36] LABS: Troponin I < 0.01 ng/ml (0.00-0.034)
[2025-01-27] MEDS: HYDROMORPHONE 2MG/ML SYRINGE 0.5 MG IV (20:49)
[2025-01-27] MEDS: IOPAMIDOL-370 (76%);100ML BOTTLE 75 ML IV (20:59)
[2025-01-27] MEDS: SODIUM CHLORIDE 0.9% 10ML SYR (RAD ONLY) 10 ML IV (20:59)
[2025-01-27 21:46] LABS: Microscopic, Urine URINE MICROSCOPIC (MICROSCOPIC)
[2025-01-27 21:55] LABS: Bilirubin,Urine Negative (Negative); Color,Urine YELLOW (Yellow); Glucose,Urine (UA) Negative (Negative); Ketones,Urine Negative (Negative); Leukocyte Esterase,Urine TRACE (Negative); PH,Urine 7.5 (5.0-8.5); Protein,Urine Negative (Negative); Specific Gravity, Urine 1.015 (1.005-1.030); Urobilinogen,Urine 0.2 EU/dl (0.2)
--- NOTE | 2025-01-27 21:57 | PC.NURSE ---
pt still c/o nausea. had 1 episode emesis. verbal order received from Dr Mcarthur to give another 4mg zofran IV.
[2025-01-27 22:00] LABS: Amorphous Sediment,Urine 1+ /lpf; Bacteria,Urine 3+ /lpf
--- NOTE | 2025-01-27 22:33 | PC.NURSE ---
waiting for blood culture collection before starting rocephin
--- NOTE | 2025-01-27 23:25 | PC.NURSE ---
report called to Norm ROCHA at [facility]
[2025-01-27] MEDS: SODIUM CHLORIDE 0.9% 25ML BAG 25 ML IV (23:44)
[2025-01-27] MEDS: PROMETHAZINE HCL 25MG/ML 1ML VIAL 12.5 MG IV (23:44)
[2025-01-28] VITALS: BP 134/76; PULSE 46; RESP 12; O2SAT 96
[2025-01-28 00:30] VITALS: BP 131/77; PULSE 53; RESP 11; O2SAT 96
[2025-01-28 01:01] VITALS: BP 114/66; PULSE 60; RESP 16; O2SAT 97
[2025-01-28 01:31] VITALS: BP 119/61; PULSE 53; RESP 13; O2SAT 95
--- NOTE | 2025-01-28 01:41 | PC.NURSE ---
Pt given ice chips and given recliner, sandwich, and chips.
--- NOTE | 2025-01-28 02:47 | PC.NURSE ---
pt and pts asleep in room. VSS. Call light in reach.
--- NOTE | 2025-01-28 04:03 | PC.NURSE ---
report given to Jose Francisco CARROLL for transport.
[2025-01-28 04:04] VITALS: BP 118/61; PULSE 48; RESP 14; TEMP 36.3; O2SAT 98
== END 2025-01-28 04:11 | disposition other institution (70) ==
PROVIDERS: Nurse Practitioner; Emergency Provider Student in an Organized Health Care Education/Training Program; PCP Physician Assistant
DX: K86.89 Other specified diseases of pancreas (principal); N39.0 Urinary tract infection, site not specified; N28.89 Other specified disorders of kidney and ureter; N13.30 Unspecified hydronephrosis
CPT/HCPCS: 74177; 80053; 81001; 83605; 83690; 83735; 84484; 85025; 87040; 87086; 93005; 96361; 96365; 96375; 96376; 99291; J0696; J1171; J2270; J2405; J2550; J7030; Q9967

== ENCOUNTER 2025-06-06 21:53 | Emergency (ER) | payer MEDICARE, SELFPAY ==
--- OUTSIDE RECORDS SUMMARY | 2024-02-15 10:15 | XMS_ITS ---
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 Referred Provider Specialty Rheumatology General Notes Selene Foster 02/14 3:31:53 PM > Needs to see Raya Mchugh Brynn 02/16/2024 8:57:29 AM > sent referral via website Referral Priority Routine REASON FOR VISIT [facility] ER f/u Medications Medication SIG (Take, Route, Frequency, Duration) Notes Start Date End Date Status Xarelto 20 MG 1 tab(s) orally once a day (in the evening); Duration: 30 day(s) 2022 Not-Taking Meclizine HCl 25 MG 1 tab(s) orally 3 times a day as needed 03/08/2021 Not-Taking Atorvastatin Calcium 80 MG 1 tab(s) orally once a day; Duration: 30 days Not-Taking Atorvastatin Calcium 80 MG 1 tab(s) orally once a day; Duration: 90 days Active Omeprazole 40 MG 1 capsule 30 minutes before morning meal Orally Once a day; Duration: 90 days 02/15/2024 Active Vitamin D3 Complete - 1 tab(s) Orally Tw o times a day pt takes 600mg BID Active Medrol 4 MG as directed orally daily; Duration: 6 days 02/15/2024 Active Aspirin 81 MG 1 tab(s) orally once a day; Duration: 30 day(s) Active Problems Problem Type SNOMED Code ICD Code Onset Dates Problem Status W/U Status Risk Notes Problem Rheumatoid arthritis (99093515) Rheumatoid arthritis flare (M06.9) Active confirmed Problem Gastroesophageal reflux disease (disorder) (147566484) Chronic GERD (K21.9) Active confirmed Vital Signs Blood pressure systolic 130 mm Hg 02/15/20 24 Blood pressure diastolic 90 mm Hg 024 Heart Rate 53 /min 02/15/2024 Height 64 in 02/15/2024 Weight 172.4 lbs 02/15/2024 BMI 29.59 kg/m2 02/15/2024 Encounters Encounter Location Date Provider Diagnosis [facility] [address] [place], [place] [id number] 02/15/2024 Selene Crowsury Rheumatoid arthritis flare M06.9 and Chronic GERD K21.9 Assessments Encounter Date Diagnosis (ICD Code) Assessment Notes Treatment Notes Treatment Clinical Notes Section Notes 02/15/2024 Rheumatoid arthritis flare (ICD-10 - M06.9) Patient never got into the arthritis center because they were moving locations. Will make referral to Dr. Montanez. 02/15/2024 Chronic GERD (ICD-10 - K21.9) Plan Of Treatment Medication Medication Name Sig Start Date Stop Date Notes Omeprazole 40 MG 1 capsule 30 minutes before morning meal Orally Once a day; Duration: 90 days 02/15/2024 Medrol 4 MG as directed orally d aily; Duration: 6 days 02/15/2024 Treatment Notes Assessment Notes Rheumatoid arthritis flare Patient never got into the arthritis center because they were moving locations. Will make referral to Dr. Montanez. Referrals Referral Date Details 02/15/2024 02/15/2024, . Rheuma tology Next Appt Details Follow Up: with rheumatology , Reason: Progress Notes * DARRION PAZOB:1955 ( 69 yo F)Acc No.[id number]:02/15/2024 Patient: ARCENIO IRIZARRY Provider: ALLISON Pfeiffer :1955 A ge:68 Y S ex:Female Date:02/15/2024 Address:[address] [place] [address], [id number] Pcp:Gnee Moncada Subjective: * Chief Complaints: * [address] [facility] ER f/u. * HPI: W rist/Hand: The pt is here for a follow up from [facility] ER due to left arm pain and swelling. Pt states they did an xray but did not reveal any fracture. Pt states the swelling is about the same. Pt states after resting at home she started to have abdominal pain and and vomiting. Pt states she was given something for pain and she thinks that could be what is causing the abdominal pain. * ROS: D ERMATOLOGY: no R thom. n o H jenna. G ASTROENTEROLOGY: no N ausea. n o V omiting. n o D iarrhea.? U ROLOGY: no D ifficulty urinating. n o B lood in urine. 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 * Surgical History: a ppendectomy , cholecystectomy . * Hospitalization/Major Diagno stic Procedure: [facility] Admission- CN III palsy, 12/04/2020. * Family History: F ather: alive. M other: , stroke. 1 son(s) , 2 daughter(s) - healthy. . * Social History: H ome smoke detector use: yes. Marital Status: . Past smoking status: no. * Medications: T aking Vitamin D3 Complete - Tablet 1 tab(s) Orally Two times a day , Notes to Pharmacist: pt takes 600mg BID, Taking Aspirin 81 MG Tablet Delayed Release 1 tab(s) orally once a day , Taking Atorvastatin Calcium 80 MG Tablet 1 tab(s) orally once a day , Not-Taking Atorvastatin Calcium 80 MG Tablet 1 tab(s) orally once a day , Not-Taking Meclizine HCl 25 MG Tablet 1 tab(s) orally 3 times a day as needed , Not-Taking Xarelto 20 MG Tablet 1 tab(s) orally once a day (in the evening) , Discontinued Medrol 4 MG Tablet Therapy Pack as directed orally daily , Medication List reviewed and reconciled with the patient * Allergies: N .K.D.A. Objective: * Vitals: W t:172.4, Temp:98.0, BP:130/90, HR:53, Nurse:DENISE, Ht: 64, BMI:29.59. * Examination: G eneral Examination: General Appearance: N AD. C hest: n ormal shape and expansion. H eart: R SR. L ungs: c lear to auscultation. A bdomen: bowel sounds present, soft and nontender, no organomegaly or masses, no guarding or rigidity. E xtremities: left wrist with edema and tenderness of the entire wrists, there is also edema of the PIP and DIP joints as well as stiffness. Assessment: * Assessment: 1. R heumatoid arthritis flare - M06.9 (Primary) 2 . C hronic GERD - K21.9? Plan: * Treatment: 2. C hronic GERD Start Omeprazole Capsule Delayed Release, 40 MG, 1 capsule 30 minutes before morning meal, Orally, Once a day, 90 days, 90, Refills 1. * Follow Up: [facility] rheumatology * Images: Billing Information: * Visit Code: 79220 Office Visit, Est Pt., Level 3. * Procedure Codes: * Electronic signature of ALLISON Perez on 06/06/2025 at 10:10 PM EST Sign off status: Pending * Provider: ALLISON Pfeiffer Date: 0 02/15/2024 Generated for Beatris ortiz/Nithin/Babsitting on: 1 08/07/2024 10:10 PM EST History and Physical Notes * Examination Category Sub-Category Detail Notes Category Not es General Examination Heart: RSR Lungs: clear to auscultatio n Abdomen: bowel sounds present , soft and nontender, no organomegaly or masses, no guarding or rigidity Extremities: left wrist with bridger a and tenderness of the entire wrists, there is also edema of the PIP and DIP joints as well as stiffness General Appearance: NAD Chest: normal shape and exp ansion Consultation Request Notes Referral Date Referring Provider Referred Provider Not es 02/15/2024 Selene Foster Rheumatology, .
--- OUTSIDE RECORDS SUMMARY | 2024-08-29 05:00 | XMS_ITS ---
[facility] Organization [facility] Address [address] [facility] [address] [facility] [address] [place] [id number] Care Team Providers Care [employer] Name Role Phone Antwan Gene Raymundo Primary Care Provider Golden Newell Unavailable [phone] Selene Foster Unavailable [phone] Allergies No Known Allergies Results Component Value Reference Range Notes Urinalysis - Inhouse Reviewed date:08/29/2024 01:58:53 PM Interpretation: Performing Lab: Notes/Report: Color/Clarity yellow/cloudy Leuk 1+ Nitrite neg Urobili 3.2 Protein trace pH 7.5 Blood trace-intact Sp. Gr. 1.020 Ketone neg Bili neg Gluc neg CBC Venipuncture (in house) Reviewed date:08/29/2024 01:32:34 PM Interpretation:Normal Performing Lab: Notes/Report: Normal wbc 6.1 3.5 - 10 lymph 31.1 15 - 50 mid 6.7 2 - 15 gran 62.2 35 - 80 rbc 4.58 3.5 - 5.5 hgb 14.7 11.5 - 16.5 hct 43.4 35 - 55 mcv 94.7 75 - 100 mch 32.1 25 - 35 mchc 33.8 31 - 38 platlet 169 100 - 400 Cologuard Reviewed date:09/16/2024 03:05:00 PM Interpretation:Negative Performing Lab: Notes/Report: Negative Cologuard negative P-Vitamin B12 Reviewed date:09/04/2024 01:05:16 PM Interpretation:>2000 Performing Lab: Notes/Report: CLIA: [id number] Lico Berrios MD, Student Union Consultant [address] [place] [address] , [address], [place] [address] Test performed by [facility], [facility] Vitamin B12 >2000 232-1245 pg/mL P-Comprehensive Metabolic Pa janie (CMP) Reviewed date:09/04/2024 01:05:16 PM Interpretation:K+ 6.5, gluc 48, alt 67 Performing Lab: Notes/Report: Test performed by [facility] [address] [place] [address] , [address], [place] [address] Lico Berrios MD, Student Union Consultant CLIA: [id number] Sodium 142 135-145 mmol/L Potassium 6.5 3.5-5.3 mmol/L Specimen received unspun. Potassium may be falsely elevated - Glucose may be falsely decreased. Correlate results with clinical history. ALERT VALUE Results were repeated and confirmed. No visual hemolysis present. Chloride 103 97-108 mmol/L CO2 25 22-32 mmol/L Glucose 48 65-99 mg/dL Specimen received unspun. Potassium may be falsely elevated - Glucose may be falsely decreased. Correlate results with clinical history. BUN 16 8-23 mg/dL Creatinine 0.83 0.50-1.00 mg/dL Calcium 9.3 8.6-10.4 mg/dL eGFR by Creatinine 75 >59 mL/min/1.73m2 Protein 6.4 6.0-8.3 g/dL Albumin 4.4 3.5-5.3 g/dL Alkaline Phosphatase 92 35-121 IU/L ALT (SGPT) 67 <5-47 IU/L AST (SGOT) 27 <5-40 IU/L Bilirubin, Total 0.5 <0.2-1.2 mg/dL A/G Ratio 2.2 1.1-2.5 P-Culture, Urine Reviewed date:09/04/2024 01:05:15 PM Interpretation:No Significant Growth Performing Lab: Notes/Report: Test performed by [facility] [address] [place] [address] , [address], [place] [address] Lico Berrios MD, Student Union Consultant CLIA: [id number] Specimen Source Urine - Void Culture, Urine See Below Final Report : No Significant Growth P-T4 Free (thyroxine) Reviewed date:09/04/2024 01:05:16 PM Interpretation:Normal Performing Lab: Notes/Report: Test performed by [facility] [address] [place] [address] , [address], [place] [address] Lico Berrios MD, Student Union Consultant CLIA: [id number] Thyroxine Free (free T4) 1.24 0.86-1.76 ng/dL P-Lipid Panel Reviewed date:09/04/2024 01:05:16 PM Interpretation:Normal Performing Lab: Notes/Report: Test performed by [facility] [address] [place] [address] , [address], [place] [address] Lico Berrios MD, Student Union Consultant CLIA: [id number] Cholesterol 157 <200 mg/dL Triglycerides 83 <150 mg/dL HDL Cholesterol 52 >39 mg/dL Cholesterol / HDL Ratio 3.02 0.00-4.44 Ratio Non-HDL Cholesterol 105 <130 mg/dL LDL Cholesterol (Calculation) 88 <130 mg/dL LDL Cholesterol Levels* Less than 100 mg/dL Optimal 100 to 129 mg/dL Near Optimal/ Above Optimal 130 to 159 mg/dL Borderline High 160 to 189 mg/dL High 190 mg/dL and above Very High * Categories as recommended by the 2004 ATPIII guidelines LDL/HDL Ratio 1.7 <3.3 Ratio LDL Cholesterol Patient History Test Date: 07/13/2022 LDL Results: 97 Units: mg/dL % Change: - Test Date: 09/01/2023 LDL Results: 141 Units: mg/dL % Change: +45% Test Date: 08/29/2024 LDL Results: 88 Units: mg/dL % Change: -37% P-TSH Reviewed date:09/04/2024 01:05:16 PM Interpretation:Normal Performing Lab: Notes/Report: Test performed by [facility] [address] [place] [address] , [place] [address] Lico Berrios MD, Student Union Consultant CLIA: [id number] TSH 2.41 0.43-5.25 mU/L P-Vitamin D 25-Hydroxy Reviewed date:09/04/2024 01:05:16 PM Interpretation:41.1 Performing Lab: Notes/Report: Test performed by [facility] [address] [place] [address] , [facility] [address], [place] [address] Lico Berrios MD, Student Union Consultant CLIA: [id number] Vitamin D 25-Hydroxy 41.1 30.0-100.0 ng/mL Interpretation of Vitamin D 25 OH: < 20 ng/mL - Deficiency 20 - 29 ng/mL - Insufficiency 30 - 100 ng/mL - Sufficiency > 100 ng/mL - Super-therapeutic- toxicity may occur above this level. Clinical correlation required. Bone density Reviewed date:09/13/2024 09:05:35 AM Interpretation: Performing Lab: Notes/Report: Reason For Referral Diagnosis 1 Dizziness (R42) Referral Organization [facility] Referring Provider First Name Selene Referring Provider Last Name Cristian Referring Provider Speciality Physician Byproducts Maker Referred Provider Neurology, . Referred Provider Specialty Neurology General Notes Selene Foster 2024 1:57:07 PM > Pt needs an appt with Dr. Arroyo., Radha Dos Santos 08/29/2024 02:22:13 PM > faxed to Dr. Arroyo office, Radha Dos Santos 09/04/2024 8:58:57 AM > spoke with Jazmyn; referral received Referral Priority Routine REASON FOR VISIT AWV Medications Medication SIG (Take, Route, Frequency, Duration) Notes Start Date End Date Status Omeprazole 40 MG 1 capsule 30 minutes before morning meal Orally Once a day; Duration: 90 days Active Atorvastatin Calcium 80 MG 1 tab(s) orally once a day; Duration: 90 days Active Vitamin B 12 500 MCG 1 tablet Orally Onc e a day; Duration: 30 day(s) Active Methotrexate Sodium 2.5 MG 4 tablets Orally once weekly Active Folic Acid 1 MG 1 tablet Orally Once a day; Duration: 30 day(s) Active Vitamin D3 Complete - 1 tab(s) Orally Tw o times a day pt takes 600mg BID Active Aspirin 81 MG 1 tab(s) orally once a day; Duration: 30 day(s) Active Mupirocin 2 % 1 application Externally Twice a day 08/29/2024 Active Immunizations Vaccine Route Administration Date Status Comme nts PNEUMOVAX 23 VACCINE IM Intramuscular 08/29/2024 Administe red Problems Problem Type SNOMED Code ICD Code Onset Dates Problem Status W/U Status Risk Notes Problem Rheumatoid arthritis (97034182) Rheumatoid arthritis involving multiple sites with positive rheumatoid factor (M05.79) Active confirmed Problem Vitamin D deficiency (76390683) Vitamin D deficiency (E55.9) Active confirmed Vital Signs Blood pressure systolic 132 mm Hg 08/30/19 25 Blood pressure diastolic 86 mm Hg 025 Heart Rate 66 /min 08/29/2024 Height 64 in 08/29/2024 Weight 179.6 lbs 08/29/2024 BMI 30.82 kg/m2 08/29/2024 Encounters Encounter Location Date Provider Diagnosis [facility] [address] [facility] [place] [id number] 08/29/2024 Selene Foster Adult general medica l examination Z00.00 ; Impetigo L01.00 ; Pure hypercholesterolemia E78.00 ; Chronic GERD K21.9 ; Dizziness R42 ; Vitamin B12 deficiency E53.8 ; Rheumatoid arthritis involving multiple sites with positive rheumatoid factor M05.79 ; Vitamin D deficiency E55.9 ; UTI (urinary tract infection) N39.0 ; Dysuria R30.0 ; Osteoporosis screening Z13.820 ; Colon cancer screening Z12.11 and BMI 30.0-30.9,adult Z68.30 Assessments Encounter Date Diagnosis (ICD Code) Assessment Notes Treatment Notes Treatment Clinical Notes Section Notes 08/29/2024 Adult general medica l examination (ICD-10 - Z00.00) Patient instructed to return to office Annually for Annual Wellness Visits to include annual screenings of Pain assessment, Functional Ability assessment, Cognitive Ability assessment, Fall Risk assessment, Depression screening and Bladder control screening. 08/29/2024 Impetigo (ICD-10 - L01.00) 08/29/2024 Pure hypercholesterolemia (ICD-10 - E78.00) 08/29/2024 Chronic GERD (ICD-10 - K21.9) 08/29/2024 Dizziness (ICD-10 - R42) The patient has seen Dr. Arroyo in the past and had an abnormal brain MRI. She had a stroke in the past. She was referred to Rheumatology due to her positive Rheumatoid Factor and LICO. She is now on treatment for RA but is still very dizzy. She will need f/u with Dr. Arroyo. 08/29/2024 Vitamin B12 deficien cy (ICD-10 - E53.8) 08/29/2024 Rheumatoid arthritis involving multiple sites with positive rheumatoid factor (ICD-10 - M05.79) Followed by Rheumatology 08/29/2024 Vitamin D deficiency (ICD-10 - E55.9) 08/29/2024 UTI (urinary tract infection) (ICD-10 - N39.0) 08/29/2024 Dysuria (ICD-10 - R30.0) 08/29/2024 Osteoporosis screeni ng (ICD-10 - Z13.820) 08/29/2024 Colon cancer screeni ng (ICD-10 - Z12.11) 08/29/2024 BMI 30.0-30.9,adult (ICD-10 - Z68.30) Plan Of Treatment Medication Medication Name Sig Start Date Stop Date Notes Mupirocin 2 % 1 application Externally Twice a day 025 Treatment Notes Assessment Notes Adult general medical examination Patien t instructed to return to office Annually for Annual Wellness Visits to include annual screenings of Pain assessment, Functional Ability assessment, Cognitive Ability assessment, Fall Risk assessment, Depression screening and Bladder control screening. Dizziness The patient has seen Dr. Aroryo in the past and had an abnormal brain MRI. She had a stroke in the past. She was referred to Rheumatology due to her positive Rheumatoid Factor and LICO. She is now on treatment for RA but is still very dizzy. She will need f/u with Dr. Arroyo. Rheumatoid arthritis involvi ng multiple sites with positive rheumatoid factor Followed by Rheumatology Referrals Referral Date Details 08/29/2024 08/29/2024, . Neurol ogy Next Appt Details Follow Up: As directed by , Reason: Progress Notes * DARRION PAZOB:1955 ( 69 yo F)Acc No.[id number]:08/29/2024 Annual Wellness Visit Patient: ARCENIO IRIZARRY Provider: ALLISON Pfeiffer :1955 A ge:68 Y S ex:Female Date:08/29/2024 Address:[address] [place] [address], [place] [address] Pcp:Gene Moncada Subjective: * Chief Complaints: * 1 . AWV. * HPI: H PI: Patient is here today for P atient is here today for a Medicare Annual Wellness Visit. Pt is not fasting today. E NT/respiratory: c/o dizziness P t sts that she is having dizziness a lot. Pt sts that she is still able to drive but sts that when she is standing up she is off balance and dizzy. D ermatology: c/o rash P t sts that she is getting rashes on her face and has been picking at it. * ROS: D ERMATOLOGY: no R thom. n o H jenna. G ASTROENTEROLOGY: no N ausea. n o V omiting. O PTHALMOLOGY: Negative for d enies vision issues. U ROLOGY: no D ifficulty urinating. n o B lood in urine. 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 * Surgical History: A ppendectomy , Cholecystectomy . * Hospitalization/Major Diagno stic Procedure: [facility] Admission- CN III palsy, 12/04/2020. * Family History: F ather: alive. M other: , stroke. 1 son(s) , 2 daughter(s) - healthy. . * Social History: H ome smoke detector use: yes. Marital Status: . Past smoking status: no. * Medications: T aking Vitamin B 12 500 MCG Tablet 1 tablet Orally Once a day , Taking Methotrexate Sodium 2.5 MG Tablet 4 tablets Orally once weekly , Taking Folic Acid 1 MG Tablet 1 tablet Orally Once a day , Taking Vitamin D3 Complete - Tablet 1 tab(s) Orally Two times a day , Notes to Pharmacist: pt takes 600mg BID, Taking Aspirin 81 MG Tablet Delayed Release 1 tab(s) orally once a day , Taking Atorvastatin Calcium 80 MG Tablet 1 tab(s) orally once a day , Taking Omeprazole 40 MG Capsule Delayed Release 1 capsule 30 minutes before morning meal Orally Once a day , Discontinued Meclizine HCl 25 MG Tablet 1 tab(s) orally 3 times a day as needed , Discontinued Xarelto 20 MG Tablet 1 tab(s) orally once a day (in the evening) , Discontinued Medrol 4 MG Tablet Therapy Pack as directed orally daily , Medication List reviewed and reconciled with the patient * Allergies: N .K.D.A. Objective: * Vitals: W t:179.6, Temp:98.3, BP:132/86, HR:66, O2 Sat:98% on RA, Nurse:ELISA, Ht: 64, BMI:30.82. * Examination: G eneral Examination: General Appearance: N AD. H EENT: sclera and conjunctiva clear, PERRLA, TM's normal, translucent, EOM's with normal ROM. O ral cavity: n o lesions, mucosa moist and WNL, no erythema. N isra: s upple, no lymphadenopathy. C hest: normal shape and expansion. H eart: R SR. L ungs: c lear to auscultation. A bdomen: bowel sounds present, nontender, soft, no organomegaly or masses. N eurologic Exam: alert and oriented, normal cranial nerves II-XII sensory & motor WNL, Unsteady on Rhomberg. S kin: e rythematous rash on the face with brown crusting. P eripheral pulses: n ormal (2+) bilaterally. E xtremities: n o leg edema. * Physical Examination: G ENERAL: Pain Assessment: P ain level:0 , on a scale of 0-10 (with 10 being extreme pain). F unctional Status Assessment: P atient response to question of how often physical health interferes with daily activities: f requently Able to perform ADLs-including meal preparation, grocery shopping, housework, laundry, taking medications or handling finances. Cognitive Status: alert and oriented. Ambulation Status: Fully ambulatory . F all Risk Assessment: I ndependant in ambulation, adequate lighting in home. Patient has NOT fallen but has had trouble walking within the past 12 months. D epression Screening: D enies depressed mood or anxiety. Describes emotional health as: calm/peaceful. B ladder Control Screening: D enies problems. Assessment: * Assessment: 1. A dult general medical examination - Z00.00 (Primary) 2 . I mpetigo - L01.00 3 . P ure hypercholesterolemia - E78.00 4 . C hronic GERD - K21.9 5 . D izziness - R42 6 . V itamin B12 deficiency - E53.8 7 . R heumatoid arthritis involving multiple sites with positive rheumatoid factor - M05.79 8 . V itamin D deficiency - E55.9 9 . U TI (urinary tract infection) - N39.0 1 0. D ysuria - R30.0 1 1. Osteoporosis screening - Z13.820 1 2. C olon cancer screening - Z12.11 1 3. B [place] 30.0-30.9,adult - Z68.30 Plan: * Treatment: 2. I mpetigo Start Mupirocin Ointment, 2 %, 1 application, Externally, Twice a day, 1, Refills 2. 3. P ure hypercholesterolemia L AB: P-Comprehensive Metabolic Panel (CMP) (Collection Date & Time - 08/29/2024 10:52 AM) K + 6.5, gluc 48, alt 67 Value Reference Range A /G Ratio 2.2 1.1-2.5 - * A lbumin 4.4 3.5-5.3 - g/dL * A lkaline Phosphatase 92 35-121 - IU/L * A LT (SGPT) 67 H <5-47 - IU/L * A ST (SGOT) 27 <5-40 - IU/L * B ilirubin, Total 0.5 <0.2-1.2 - mg/dL * B UN 16 8-23 - mg/dL * C alcium 9.3 8.6-10.4 - mg/dL * C hloride 103 97-108 - mmol/L * C O2 25 22-32 - mmol/L * C reatinine 0.83 0.50-1.00 - mg/dL * G lucose 48 L 65-99 - mg/dL * P otassium 6.5 HH 3.5-5.3 - mmol/L * S odium 142 135-145 - mmol/L * P rotein 6.4 6.0-8.3 - g/dL * e GFR by Creatinine 75 >59 - mL/min/1.73m2 * Jaqueline Jorgensen 09/02/2024 1:25: 48 PM > see 08/30/2024 TE, labs to be redrawn due to lab error. Selene Foster 09/04/2024 1:04:57 PM > see TE ?LAB: P-Lipid Panel (Collection Date & Time - 08/29/2024 10:52 AM)?Normal* Value Reference Range C holesterol / HDL Ratio 3.02 0.00-4.44 - Ratio * C holesterol 157 <200 - mg/dL * H DL Cholesterol 52 >39 - mg/dL * L DL Cholesterol (Calculation) 88 <130 - mg/d L * L DL/HDL Ratio 1.7 <3.3 - Ratio * N on-HDL Cholesterol 105 <130 - mg/dL * T riglycerides 83 <150 - mg/dL * Selene Foster 09/04/2024 1: 04:57 PM > see TE 4.?Dizziness?LAB: P-T4 Free (thyroxine) (Collection Date & Time - 08/29/2024 10:52 AM)? Normal* Value Reference Range T hyroxine Free (free T4) 1.24 0.86-1.76 - ng/d L * Selene Foster 09/04/2024 1: 04:57 PM > see TE ?LAB: P-TSH (Collection Date & Time - 08/29/2024 10:52 AM)?Normal* Value Reference Range T SH 2.41 0.43-5.25 - mU/L * Selene Foster 09/04/2024 1: 04:57 PM > see TE ?LAB: CBC Venipuncture (in house) (Collection Date & Time - 08/29/2024)? Normal* Value Reference Range w bc 6.1 3.5 - 10 * l ymph 31.1 15 - 50 * m id 6.7 2 - 15 * g ran 62.2 35 - 80 * r bc 4.58 3.5 - 5.5 * h gb 14.7 11.5 - 16.5 * h ct 43.4 35 - 55 * m cv 94.7 75 - 100 * m ch 32.1 25 - 35 * m chc 33.8 31 - 38 * p latlet 169 100 - 400 * Nasima Leigh 08/29/2024 11:39 :40 AM >Selene Foster 08/29/2024 1:32:31 PM > Notes: The patient has seen Dr. Arroyo in the past and had an abnormal brain MRI. She had a stroke in the past. She was referred to Rheumatology due to her positive Rheumatoid Factor and LICO. She is now on treatment for RA but is still very dizzy. She will need f/u with Dr. Arroyo.? Referral To:. Neurology??Neurology ?Reason: 5.?Vitamin B12 deficiency?LAB: P-Vitamin B12 (Collection Date & Time - 08/29/2024 10:52 AM)?>2000* Value Reference Range V itamin B12 >2000 H 232-1245 - pg/mL * Selene Foster 09/04/2024 1: 04:57 PM > see TE 6.?Rheumatoid arthritis involving multiple sites with positive rheumatoid factor ? Notes: Followed by Rheumatology??7.?Vitamin D deficiency?LAB: P-Vitamin D 25-Hydroxy (Collection Date & Time - 08/29/2024 10:52 AM)? 41.1* Value Reference Range V itamin D 25-Hydroxy 41.1 30.0-100.0 - ng/mL * Selene Foster 09/04/2024 1: 04:57 PM > see TE 8.?Dysuria?LAB: P-Culture, Urine (Collection Date & Time - 08/29/2024 10:52 AM)?No Significant Growth* Value Reference Range C ulture, Urine See Below - * S pecimen Source Urine - Void - * Selene Foster 09/04/2024 1: 04:57 PM > see TE ?LAB: Urinalysis - Inhouse (Collection Date & Time - 08/29/2024)* Value Reference Range C olor/Clarity yellow/cloudy * L euk 1+ * N itrite neg * U robili 3.2 * P rotein trace * p H 7.5 * B lood trace-intact * S p. Gr. 1.020 * K etone neg * B india neg * G carlyn neg * Nasima Leigh 08/29/2024 11:30 :24 AM > results reviewed w/ pt in office, urine culture orderedCrSelene jaramillo Monie 08/29/2024 1:58:50 PM > 9.?Osteoporosis screening?Imaging: Bone density (Performed Date - 09/06/2024)* CristianSelene Lomax 09/02/2024 12 :34:06 AM >Radha Dos Santos 09/02/2024 9:19:55 AM > faxed to [facility] Nasima Hernandes 09/02/2024 09:59:45 AM > 09/06 @ 9:30 AMCheathSelene Monie 09/13/2024 9:05:31 AM > see TE 10.?Colon cancer screening?LAB: Cologuard (Collection Date & Time - 09/09/2024)?Negative* Value Reference Range C ologuard negative * CristianSelene Monie 09/02/2024 12 :34:31 AM > Please check to see if she is due a cologuard.Nasima Leigh 09/02/2024 04:24:49 PM >faxedBerenice Moser 09/16/2024 03:02:49 PM > Pt informed * Immunizations: PNEUMOVAX 23 VACCINE : 0.5 mL (Route: Intramuscular) given by Nasima Leigh on Right Deltoid (Adult general medical examination) * Procedure Codes: G 0439 ANNUAL WELLNESS VST; PPS SUBSQT VST, G2211 Complex e/m visit add on, G0444 ANNUAL DEPRESSION SCREENING 15 MIN, 1090F PRES/ABSN URINE INCON ASSESS, 3288F FALL RISK ASSESSMENT DOCD, 1170F FXNL STATUS ASSESSED, 1126F AMNT PAIN NOTED NONE PRSNT, 1159F MED LIST DOCD IN RCRD, 1003F LEVEL OF ACTIVITY ASSESS, 1036F TOBACCO NON- USER, 74898 CBC WITH AUTO DIFF, 16957 Urinalysis, no micro, G8510 NEG SCR Depression PT NOT ELIG F/U/PLN DOC, 3075F SYST BP GE 130 - 139MM HG, 3079F DIAST BP 80-89 MM HG * Preventive Medicine: Counseling: E motional health: P atient encouraged to try connecting with family or friends to boost mood. B ladder control: M ethods of controlling or managing leakage of urine discussed. E xercise: P atient advised to start, increase or maintain level of exercise/physical activity. I njury prevention: F all prevention discussed. Discussed need for cane/walker. Potential trip hazards discussed. Immunizations: P neumococcal r ecommended. I nfluenza r ecommended seasonally. Screening / Special Tests: M ammogram R ecent history:, declined today. C olonoscopy R ecent history: FIT 03/17/2023, negative. B one mineral Density R ecent history: 08/17/2022, osteopenia, recommended. * Follow Up: A s directed by * Images: Billing Information: * Visit Code: 46033 Office Visit, Est Pt., Level 3. Modifiers: 25 * Procedure Codes: G0439 ANNUAL WELLNESS VST; PPS SUBSQT VST. G2211 Complex e/m visit add on. G0444 ANNUAL DEPRESSION SCREENING 15 MIN. 1090F PRES/ABSN URINE INCON ASSESS. 3288F FALL RISK ASSESSMENT DOCD. 1170F FXNL STATUS ASSESSED. 1126F AMNT PAIN NOTED NONE PRSNT. 1159F MED LIST DOCD IN RCRD. 1003F LEVEL OF ACTIVITY ASSESS. 1036F TOBACCO NON-USER. 42999 CBC WITH AUTO DIFF. 32774 Urinalysis, no micro. G8510 NEG SCR Depression PT NOT ELIG F/U/PLN DOC. 3075F SYST BP GE 130 - 139MM HG. 3079F DIAST BP 80-89 MM HG. * Electronic signature of ALLISON Perez on 06/06/2025 at 10:12 PM EST Sign off status: Pending * Provider: ALLISON Pfeiffer Date: 0 08/29/2024 Generated for Germani ng/Favanesa/eTransmitting on: 1 08/07/2024 10:12 PM EST History and Physical Notes * HPI (History of Present Illness) Category Sub-Category Detail Notes Category Not es ENT/respiratory dizziness Pt sts that she is having dizziness a lot. Pt sts that she is still able to drive but sts that when she is standing up she is off balance and dizzy Dermatology rash Pt sts that she is getting rashes on her face and has been picking at it HPI Patient is here today for Patien t is here today for a Medicare Annual Wellness Visit. Pt is not fasting today Physical Examination Category Sub-Category Detail Notes Section Note s GENERAL Pain Assessment: Pain level:0 , on a scale of 0-10 (with 10 being extreme pain) Functional Status Assessment: Patient response to question of how often physical health interferes with daily activities: frequently Able to perform ADLs-including meal preparation, grocery shopping, housework, laundry, taking medications or handling finances. Cognitive Status: alert and oriented. Ambulation Status: Fully ambulatory Fall Risk Assessment: Independant in amb ulation, adequate lighting in home. Patient has NOT fallen but has had trouble walking within the past 12 months Depression Screening: Denies depressed m ood or anxiety. Describes emotional health as: calm/peaceful Bladder Control Screening: Denies proble ms Examination Category Sub-Category Detail Notes Category Not es General Examination HEENT: sclera and c onjunctiva clear, PERRLA, TM's normal, translucent, EOM's with normal ROM Heart: RSR Lungs: clear to auscultatio n Abdomen: bowel sounds present , nontender, soft, no organomegaly or masses Extremities: no leg edema General Appearance: NAD Skin: erythematous rash on the face with brown crusting Neurologic Exam: alert and oriented, normal cranial nerves II-XII sensory & motor WNL, Unsteady on Rhomberg Neck: supple, no lymphaden opathy Oral cavity: no lesions, mucosa m oist and WNL, no erythema Peripheral pulses: normal (2+) bilatera lly Chest: normal shape and exp ansion Consultation Request Notes Referral Date Referring Provider Referred Provider Not es 08/29/2024 Selene Foster Neurology, .
--- OUTSIDE RECORDS SUMMARY | 2024-09-02 05:30 | XMS_ITS ---
Author Organization [place] Address [address] [facility] [address] [place] [id number] Care Team Providers Care Pile Driver Operator Barge Mounted Name Role Phone Gene Moncada Primary Care Provider Osiris Golden Unavailable [phone] Selene Foster Unavailable [phone] Results Component Value Reference Range Notes P-Comprehensive Metabolic Pa janie (CMP) Reviewed date:09/04/2024 01:05:15 PM Interpretation:ALT 80, AST 48 Performing Lab: Notes/Report: CLIA: [id number] Lico Berrios MD, Golf Teacher [address] [place] [address] , [address], [place] [address] Test performed by [facility], [facility] Sodium 143 135-145 mmol/L Potassium 4.3 3.5-5.3 mmol/L Chloride 106 97-108 mmol/L CO2 25 22-32 mmol/L Glucose 96 65-99 mg/dL BUN 15 8-23 mg/dL Creatinine 0.79 0.50-1.00 mg/dL Calcium 9.4 8.6-10.4 mg/dL eGFR by Creatinine 80 >59 mL/min/1.73m2 Protein 6.3 6.0-8.3 g/dL Albumin 4.2 3.5-5.3 g/dL Alkaline Phosphatase 93 35-121 IU/L ALT (SGPT) 80 <5-47 IU/L AST (SGOT) 48 <5-40 IU/L Bilirubin, Total 0.6 <0.2-1.2 mg/dL A/G Ratio 2.0 1.1-2.5 REASON FOR VISIT labs only Encounters Encounter Location Date Provider Diagnosis [place] [address] [facility] [address] [place] [id number] 09/02/2024 Selene Foster Pure hypercholestero lemia E78.00 Assessments Encounter Date Diagnosis (ICD Code) Assessment Notes Treatment Notes Treatment Clinical Notes Section Notes 09/02/2024 Pure hypercholesterolemia (ICD-10 - E78.00) Plan Of Treatment No Information Progress Notes * DARRION PAZOB:1955 ( 69 yo F)Acc No.[id number]:09/02/2024 Patient: ARCENIO IRIZARRY Provider: ALLISON Pfeiffer :1955 A ge:68 Y S ex:Female Date:09/02/2024 Address:[address] [place] [address], [id number] Pcp:Gene Moncada Subjective: * Chief Complaints: * 1 . Labs only. * Medical History: Objective: * Vitals: Assessment: * Assessment: 1. P ure hypercholesterolemia - E78.00 Plan: * Treatment: Value Reference Range A /G Ratio 2.0 1.1-2.5 - * A lbumin 4.2 3.5-5.3 - g/dL * A lkaline Phosphatase 93 35-121 - IU/L * A LT (SGPT) 80 H <5-47 - IU/L * A ST (SGOT) 48 H <5-40 - IU/L * B ilirubin, Total 0.6 <0.2-1.2 - mg/dL * B UN 15 8-23 - mg/dL * C alcium 9.4 8.6-10.4 - mg/dL * C hloride 106 97-108 - mmol/L * C O2 25 22-32 - mmol/L * C reatinine 0.79 0.50-1.00 - mg/dL * G lucose 96 65-99 - mg/dL * P otassium 4.3 3.5-5.3 - mmol/L * S odium 143 135-145 - mmol/L * P rotein 6.3 6.0-8.3 - g/dL * e GFR by Creatinine 80 >59 - mL/min/1.73m2 * Selene Foster 09/04/2024 1: 04:57 PM > see TE * Images: Billing Information: * Visit Code: * Procedure Codes: * Electronic signature of ALLISON Perez on 06/06/2025 at 10:12 PM EST Sign off status: Pending * Provider: ALLISON Pfeiffer Date: 0 09/02/2024 Generated for Beatris ortiz/Nithin/Petrona on: 1 08/07/2024 10:12 PM EST
--- OUTSIDE RECORDS SUMMARY | 2025-04-09 08:15 | XMS_ITS | Encounter Summary ---
Author Organization [facility] Address [address] [place] [address] Care Team Providers Care Facility Maintenance Worker Name Role Phone Golden Newell MD Primary Care Provider [phone] Reason for Referral * Imaging (Routine) - Pending Review Specialty Diagnoses / Procedures Referred By Lg quinones Referred To Contact Gastroenterology Diagnoses IPMN (intraductal papillary mucinous neoplasm) Procedures ERCP 3 - Grade 3 Lokesh Anderson MD [address] [place] [phone] Phone: tel: fax: Referral ID Status Reason Start Date Expiration Date Visits Requested Visits Authorized [id number] Pending Review Specialty Services Required 10/09/2026 1 1 Reason for Visit * Reason Comments Follow-up Pancreatic cyst Encounter Details Date Type Department Care Team (Latest Contact Info) Description 04/09/2025 9:15 AM EDT Office Visit [facility] Multidisciplinary Oncology Clinic [address] [place] [address] Lokesh Anderson MD [address] [phone] IPMN (intraductal papillary mucinous neoplasm) (Primary Dx) Social History Tobacco Use Types Packs/Day Years Used Date Smoking Tobacco: Never Smokeless Tobacco: Never Alcohol Use Standard Drinks/Week Comments Never 0 (1 standard drink = 0.6 oz pur e alcohol) PHQ-2 Answer Date Recorded Patient Health Questionnaire-2 Score 0 04/09/2025 PHQ-9 Answer Date Recorded Patient Health Questionnaire-9 Score 0 04/09/2025 Humiliation, Afraid, Rape, and Kick questionnair e Answer Date Recorded Within the last year, have y ou been afraid of your partner or ex-partner? No 03/21/2025 Within the last year, have y ou been humiliated or emotionally abused in other ways by your partner or ex-partner? No Within the last year, have y ou been kicked, hit, slapped, or otherwise physically hurt by your partner or ex-partner? No 03/21/2025 Within the last year, have y ou been raped or forced to have any kind of sexual activity by your partner or ex-partner? No 03/21/2025 Hunger Vital Sign Answer Date Recorded Within the past 12 months, y ou worried that your food would run out before you got the money to buy more. Never true 03/21/20 25 Within the past 12 months, t he food you bought just didn't last and you didn't have money to get more. Never true 03/21/2025 PRAPARE - Transportation Answer Date Re corded In the past 12 months, has l ack of transportation kept you from medical appointments or from getting medications? No 02/25 In the past 12 months, has l ack of transportation kept you from meetings, work, or from getting things needed for daily living? No 03/21/2025 Housing Stability Vital Sign Answer [place] e Recorded In the last 12 months, was t here a time when you were not able to pay the mortgage or rent on time? No 03/21/2025 In the past 12 months, how m any times have you moved where you were living? 0 03/21/2025 At any time in the past 12 m [facility], were you homeless or living in a retirement (including now)? No 03/21/2025 [facility] Utilities Answer Date Recorded In the past 12 months has th e electric, gas, oil, or water company threatened to shut off services in your home? No 03/21/2025 Comments No Sex and Gender Information Value Date Recorded Sex Assigned at Not on file Legal Sex Female 7:45 PM EDT Gender Identity Not on file Sexual Orientation Not on file documented as of this encounter Last Filed Vital Signs Vital Sign Reading Time Taken Comments Blood Pressure 119/77 04/09/2025 9:13 AM EDT Pulse 93 04/09/2025 9:13 AM EDT Temperature 36.6 C (97.9 F) 04/09/2025 9:13 AM EDT Respiratory Rate 16 04/09/2025 9:13 AM EDT Oxygen Saturation 96% 04/09/2025 9:13 AM EDT Inhaled Oxygen Concentration - - Weight 71.4 kg (157 lb 6.5 oz) 04/09/2025 9:13 A M EDT Height 162.6 cm (5' 4 ) 04/09/2025 9:13 AM EDT Body Mass Index 27.02 04/09/2025 9:13 AM EDT documented in this encounter Functional Status * Over the past 2 weeks, how often have you been bothered by any of the following problems? Question Answer Date of Assessment Author Little interest or pleasure in doing things Not at all 04/09/2025 9:05 AM Marina Call CNA Feeling down, depressed, or hopeless Not at all 04/09/2025 9:05 AM Marina Call CNA Patient Health Questionnaire -2 Score 0 04/09/2025 9:05 AM Marina Call CNA * Question Answer Date of Assessment Author Trouble falling or staying asleep, or sleeping too much Not at all 04/09/2025 9:05 AM Marina Call CNA Feeling tired or having klever le energy Not at all 04/09/2025 9:05 AM Marina Call CNA Poor appetite or overeating Not at all 04/09/2025 9: 05 AM Marina Call CNA Feeling bad about yourself - or that you are a failure or have let yourself or your family down Not at all 04/09/2025 9:05 AM Marina Call CNA Trouble concentrating on things, such as reading the newspaper or watching television Not at all 04/09/2025 9:05 AM Marina Call CNA Moving or speaking so slowly that other people could have noticed. Or the opposite - being so fidgety or restless that you have been moving around a lot more than usual Not at all 04/09/2025 9:05 AM Marina Call CNA Thoughts that you would be better off or hurting yourself in some way Not at all 04/09/2025 9:05 AM Marina Call CNA Patient Health Questionnaire -9 Score 0 04/09/2025 9:05 AM Marina Call CNA documented as of this encounter Miscellaneous Notes * Progress Notes - Carmen Miner MD - 04/09/2025 9:15 AM EDT Surgical Oncology Clinic Note Chief complaint: Postop follow up History of Present Illness: History of Present Illness Ms. 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 Reports nausea this AM that is new. Denies vomiting. Her diet has been limited, with occasional intake of ice cream and pudding. She has been able to drink some water (approximately two 12-ounce bottles of water in the last 24 hours). She has not had a bowel movement in three days. Her pain is well-managed without the need for analgesics. Denies concerns about her incision including redness or drainage. Forgot to bring the drain log but states that it fills up overnight. She still has a Perez catheter in place and expresses concern about her ability to urinate after its removal. Allergies: Allergies[1] Home Medications: Prior to Admission medications Medication Sig Start Date End Date Taking? Authorizing Provider Alcohol Swabs (Alcohol Prep) 70 % pads 04/04/25 Yes Provider, Historical amLODIPine (Norvasc) 5 MG tablet Take 1 tablet by mouth daily. 04/05/25 Yes Katlyn Hopkins APRN aspirin 81 MG EC tablet Take 1 tablet by mouth daily. Yes Provider, Historical atorvastatin (Lipitor) 80 MG tablet Take 1 tablet by mouth daily. Yes Provider, Historical Blood Glucose Monitoring Suppl (True Metrix Meter) w/Device kit 04/04/25 Yes Provider, Historical Blood Glucose Monitoring Suppl device Check blood sugar, twice daily. Once, one hour after TPN disconnects, and one hour after TPN connection. 04/04/25 Yes Katlyn Hopkins APRN ciprofloxacin (Cipro) 500 MG tablet Take 1 tablet by mouth 2 times a day. 01/28/25 Yes Provider, Historical glucose blood test strip Test two times daily 04/04/25 Yes Katlyn Hopkins APRN insulin glargine (Lantus SoloStar) 100 UNIT/ML injection pen Inject 8 Units under the skin 1 (one) time each day at the same time. Inject 8u one hour after TPN building custodial supervisor. 04/04/25 Yes Katlyn Hopkins APRN lactobacillus acidophilus (Floranex) tablet Take 1 tablet by mouth 2 times a day with meals for 14 days. 04/04/25 04/18/25 Yes Katlyn Hopkins APRN Lancets misc Test two times daily 04/04/25 Yes Katlyn Hopkins APRN levoFLOXacin (Levaquin) 750 MG tablet Take 1 tablet by mouth daily for 8 doses. 04/05/25 04/13/25 Yes Katlyn Hopkins APRN pen needle, diabetic 31G X 5 MM misc Use as directed with insulin pen. 04/04/25 Yes Katlyn Hopkins APRN vancomycin (Vancocin) 125 MG capsule Take 1 capsule by mouth 4 times a day for 5 days. 04/04/25 04/09/25 Yes Katlyn Hopkins APRN Adult 2-in-1 TPN Infuse 70 mL/hr into a venous catheter continuously at 70 mL/hr over 24 hours (central line). 04/04/25 Katlyn Hopkins APRN Alcohol Sheets (Alcoh-Wipe) sheet Use as directed. 04/04/25 Katlyn Hopkins APRN [Paused] Calcium Carb-Cholecalciferol (CALCIUM + VITAMIN D3 PO) Take by mouth. Patient not taking: Reported on 04/09/2025 Wait to take this until your doctor or other care provider tells you to start again. Provider, Historical [Paused] calcium carbonate (Tums) 500 MG chewable tablet Chew 1 tablet daily. Patient not taking: Reported on 04/09/2025 Wait to take this until your doctor or other care provider tells you to start again. Provider, Historical [Paused] cyanocobalamin (Vitamin B-12) 1000 MCG tablet Take 1 tablet by mouth 1 (one) time each dayat the same time. Patient not taking: Reported on 04/09/2025 Wait to take this until your doctor or other care provider tells you to start again. Provider, Historical enoxaparin (Lovenox) 40 MG/0.4ML solution prefilled syringe Inject 0.4 mL under the skin daily for 12 days. 04/05/25 04/17/25 Katlyn Hopkins APRN fat emulsion fish/plant based (SMOFlipid) 20 % Infuse 250 mL into a venous catheter every other dayat 20.8 mL/hr over 12 hours. 04/04/25 Katlyn Hopkins APRN [Paused] HYDROcodone-acetaminophen ([place]) 5-325 MG tablet every 4 hours as needed. Patient not taking: Reported on 04/09/2025 Wait to take this until your doctor or other care provider tells you to start again. Provider, Historical lidocaine (Lidoderm) 5 % patch Apply 1 patch topically 1 (one) time each day at the same time over 12 hours. Remove & discard patch within 12 hours or as directed by MD. Patient not taking: Reported on 04/09/2025 04/04/25 Katlyn Hopkins APRN metroNIDAZOLE (Flagyl) 500 MG tablet Take 1 tablet by mouth 2 times a day for 17 doses. 04/04/25 04/13/25 Katlyn Hopkins APRN oxyCODONE (Roxicodone) 5 MG immediate release tablet Take 1 tablet by mouth every 8 hours as neededfor moderate pain. Patient not taking: Reported on 04/09/2025 04/04/25 Katlyn Hopkins APRN pantoprazole (Protonix) 40 MG EC tablet Take 1 tablet by mouth daily. Do not crush, chew, or split. Patient not taking: Reported on 04/09/2025 04/05/25 Katlyn Hopkins APRN tamsulosin (Flomax) 0.4 MG 24 hr capsule Take 1 capsule by mouth 1 time each day with dinner. 04/04/25 05/04/25 Katlyn Hopkins, BULB SORTER Review of Systems: 14 ROS was conducted and is otherwise negative unless noted in HPI. Physical exam: GENERAL: WD, WN, NAD. EYES: No scleral icterus or conjunctivitis HENT: Atraumatic, normocephalic, nares patent, mucus membranes moist NECK: Supple RESP/CHEST: Symmetric expansion; non labored. CARD: Regular rate GI: Soft, Nontender, nondistended. Incision clean and dry, small opening inferior aspect without surrounding erythema or drainage. Drain with creamy white/yellow output. SKIN: No rash, sores, lesions or subcutaneous nodules. NEURO: Alert, no focal deficits PSYCH: Mood and affect congruent and appropriate to situation. Objective: All laboratory, images, tracings, and vital sign data are personally reviewed unless otherwise noted. VITALS Vitals: 04/09/25 0913 BP: 119/77 Pulse: 93 Resp: 16 Temp: 36.6 ??C (97.9 ??F) SpO2: 96% Weight: 71.4 kg (157 lb 6.5 oz) LABS (PAST 18Labs in last 18 hours CBC WBC 12.10 (H) Hb 13.4 Plt 406 (H) Hct 40.3 ANC ?? INR ??, PTT ??, Anti-Xa ?? BMP Na ?? Cl ?? BUN ?? Glu ?? K ?? Co2 ?? Cr ?? Ca ?? iCa ?? Mg ??, Phos ?? Lactate ?? LFT AST ?? AlkPhos ?? T Prot ?? ALK ?? Bili ?? Alb ?? D.Bili ?? HOURS) No results found for: CEA No results found for: AFP Pathology: Final Diagnosis A. FALCIFORM LIGAMENT, EXCISION: - FIBROADIPOSE TISSUE; NEGATIVE FOR MALIGNANCY B. LYMPH NODE, CELIAC AXIS, DISSECTION: - ONE LYMPH NODE NEGATIVE FOR MALIGNANCY (0/1) C. PANCREAS AND SPLEEN, DISTAL PANCREATECTOMY AND SPLENECTOMY: - MUCINOUS CYSTIC NEOPLASM (3.5 CM) - EIGHTEEN LYMPH NODES NEGATIVE FOR MALIGNANCY (0/18) - SPLEEN WITHOUT PATHOLOGIC ABNORMALITY - PROXIMAL PANCREATIC RESECTION MARGIN NEGATIVE FOR NEOPLASM at 1652 EDT Radiographics/Diagnostics: No new imaging Assessment & Plan: Assessment & Plan Ms. 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 PO intake remains poor. Blanket removed in clinic today and steri strips applied to inferior aspect of incision with small area of superficial dehiscence. 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 Will discuss pancreatic stent placement with GI. - continue TPN - can advance diet as tolerated and encouraged fluid intake - start MiraLAX - labs today - remove Perez catheter - GI consult for pancreatic stent Carmen Miner MD 04/09/25 11:44 AM [1] No Known Allergies Cosigned by Lokesh Anderson MD at 04/12/2025 6:00 PM EDT Associated attestation - Lokesh Anderson MD - 04/12/2025 6:00 PM EDT I saw and evaluated the patient with the resident/fellow. I discussed the case with the resident/fellow and agree with the findings and plan as documented. documented in this encounter Plan of Treatment Upcoming Encounters Date Type Department Care Team (Late st Contact Info) Description 06/13/2025 10:00 AM EST Office Visit [facility] Multidisciplinary Oncology Clinic [address] [place] [address] Vibha Osborn, BULB SORTER [address] [facility] [address] [place] [address] Scheduled Orders Name Type Priority Associated Diagnoses Orde r Schedule ERCP 3 - Grade 3 Endoscopy Routine IPMN (intraductal papillary mucinous neoplasm) Expected: 04/09/2025, Expires: 04/09/2026 documented as of this encounter Goals Goal Patient Goal Type Associated Problems Recent Progress Patient-Stated? Author Autogenerat ed Goal Care Plan Autogenerated Problem No Jennifer Sabillon Autogenerat ed Goal Care Plan Autogenerated Problem No Lokesh Anderson MD documented as of this encounter Results * Prealbumin, Plasma (04/09/2025 10:14 AM EDT) Prealbumin, Plasma 24.6 20.0 - 41.0 mg/dL 04/09/2025 11:44 AM EDT [facility] Blood Venous blood specimen / Unknown Venipuncture / Unknown 04/09/2025 10:14 AM EDT 04/09/2025 11:10 AM EDT us Lokesh Anderson MD LAB BLOOD ORDERABLES Final Resul t [facility] [address] [place] [address] * (ABNORMAL) Comprehensive Metabolic Panel, Plasma (04/09/2025 10:14 AM EDT) Glucose, Plasma 445(H) 74 - 99 mg/dL 04/09/2025 11:44 AM EDT [facility] BUN, Plasma 21 8 - 23 mg/dL 04/09/2025 11:44 AM EDT [facility] Creatinine, Plasma 0.51(L) 0.60 - 1.10 mg/dL 04/09/2025 11:44 AM EDT [facility] BUN/Creatinine Ratio 41 04/09/2025 11:44 AM EDT [facility] Sodium, Plasma 137 136 - 145 mmol/L 04/09/2025 11:44 AM EDT [facility] Potassium, Plasma 4.5 3.6 - 4.9 mmol/L 04/09/2025 11:44 AM EDT [facility] Chloride, Plasma 101 97 - 107 mmol/L 04/09/2025 11:44 AM EDT [facility] CO2, Plasma 23 22 - 29 mmol/L 04/09/2025 11:44 AM EDT [facility] Anion Gap 13 6 - 16 mmol/L 04/09/2025 11:44 AM EDT [facility] Total Calcium, Plasma 8.9 8.9 - 10.2 mg/dL 04/09/2025 11:44 AM EDT [facility] Total Protein 7.0 6.3 - 7.9 g/dL 04/09/2025 11:44 AM EDT [facility] Albumin, Plasma 3.3(L) 3.5 - 5.2 g/dL 04/09/2025 11:44 AM EDT [facility] AST, Plasma 22 10 - 35 U/L 04/09/2025 11:44 AM EDT [facility] Comment:Hemolyzed, result ma y be falsely increased. ALT, Plasma 11 10 - 35 U/L 04/09/2025 11:44 AM EDT [facility] Alkaline Phosphatase, Plasma 88 46 - 142 U/L 04/09/2025 11:44 AM EDT [facility] Total Bilirubin, Plasma 0.3 0.2 - 1.1 mg/dL 04/09/2025 11:44 AM EDT [facility] eGFRcr 99.9 mL/min/1.7 3m*2 04/09/2025 11:44 AM EDT [facility] Comment:Reported eGFRcr in m L/min/1.73m2 is based the CKD-EPI 2020 equation that does not use a race coefficient. Blood Venous blood specimen / Unknown Venipuncture / Unknown 04/09/2025 10:14 AM EDT 04/09/2025 11:10 AM EDT us Lokesh Anderson MD LAB BLOOD ORDERABLES Final Resul t [facility] [address] [place] [address] * (ABNORMAL) CBC W/O Differential (04/09/2025 10:14 AM EDT) WBC Count 12.10(H) 3.70 - 10.30 10*3/uL LAB HEMATOLOGY METHOD 04/09/2025 11:00 AM EDT [facility] RBC Count 4.49 3.90 - 5.20 10*6/uL LAB HEMATOLOGY METHOD 04/09/2025 11:00 AM EDT [facility] HGB 13.4 11.2 - 15.7 g/dL LAB HEMATOLOGY METHOD 04/09/2025 11:00 AM EDT [facility] HCT 40.3 34.0 - 45.0 % LAB HEMATOLOGY METHOD 04/09/2025 11:00 AM EDT [facility] Platelet Count 406(H) 155 - 369 10*3/uL LAB HEMATOLOGY METHOD 04/09/2025 11:00 AM EDT [facility] MCV 90 79 - 98 fL LAB HEMATOLOGY METHOD 04/09/2025 11:00 AM EDT [facility] MCH 29.8 26.0 - 32.0 pg LAB HEMATOLOGY METHOD 04/09/2025 11:00 AM EDT [facility] MCHC 33.3 30.7 - 35.5 g/dL LAB HEMATOLOGY METHOD 04/09/2025 11:00 AM EDT [facility] RDW 14.1 11.5 - 14.5 % LAB HEMATOLOGY METHOD 04/09/2025 11:00 AM EDT [facility] MPV 10.9 8.8 - 12.5 fL LAB HEMATOLOGY METHOD 04/09/2025 11:00 AM EDT [facility] nRBC 0.0 <=0.0 per 100 WBCs LAB HEMATOLOGY METHOD 04/09/2025 11:00 AM EDT [facility] Blood Venous blood specimen / Unknown Venipuncture / Unknown 04/09/2025 10:14 AM EDT 04/09/2025 10:51 AM EDT us Lokesh Anderson MD LAB BLOOD ORDERABLES Final Resul t Performing Organization Address City/State/[facility] Co de Phone Number [facility] [address] [place] [address] documented in this encounter Visit Diagnoses Diagnosis IPMN (intraductal papillary mucinous neoplasm)- Primary Neoplasm of unspecified nature of digestive system documented in this encounter Additional Health Concerns Active Problems Noted Date Diagnosed Date Autogenerated Problem 12/19/2024 Autogenerated Problem 02/26/2025 Infection Onset Date Last Indicated Resolved Time C. difficile 03/30/2025 03/30/2025 05/15/2025 8:00 AM EST Assessment Noted Time PHQ-9 Depression Total Score: 0 04/09/20 9:05 AM EDT A fall risk assessment has been complete d for the patient 04/09/2025 9:05 AM EDT A Body Mass Index follow-up plan has been documented for the patient 04/12/2025 5:59 PM EDT documented as of this encounter Care Teams Facility Maintenance Worker Relationship Specialty Start Date End Date Golden Newell MD [address] [place] [address] PCP - General 12/04/20 documented as of this encounter
--- OUTSIDE RECORDS SUMMARY | 2025-04-09 09:00 | XMS_ITS | Encounter Summary ---
Author Organization Healthcare Address [address] [place] [address] Care Team Providers Care Furnace Installer Helper Name Role Phone Golden Newell MD Primary Care Provider [phone] Encounter Details Date Type Department Care Team (Latest Contact Info) Description 04/09/2025 10:00 AM EDT Clinical Support [facility] Multidisciplinary Oncology Clinic [address] [place] [address] IPMN (intraductal papillary mucinous neoplasm) Social History Tobacco Use Types Packs/Day Years [...] money to buy more. Never true 03/21/20 Within the past 12 months, t he [...] any time in the past 12 m [facility], were you homeless or living in a nursing home (including now)? No 03/21/2025 [facility] Utilities Answer Date Recorded In the past [...] on file documented as of this encounter Functional Status * Over the [...] Not at all 04/09/2025 9: 05 AM CARTERT Marina Quinn CNA Feeling bad about yourself - or that you are a failure or have let yourself or your family down Not at all 04/09/2025 9:05 AM CARTERT Marina Quinn CNA Trouble concentrating on things, such as reading the newspaper or watching television Not at all 04/09/2025 9:05 AM CARTERT Marina Quinn CNA Moving or speaking so slowly that [...] Questionnaire -9 Score 0 04/09/2025 9:05 AM EDT Marina Quinn CNA documented as of this encounter Miscellaneous Notes * Progress Notes - Angelika Manuel RN - 04/09/2025 10:00 AM EDT Labs documented in this encounter Plan of Treatment Upcoming Encounters Date Type Department Care Team (Late st Contact Info) Description 06/13/2025 10:00 AM EST Office Visit [facility] [address] [place] [address] Vibha Osborn, GEOPHYSICAL LABORATORY CHIEF [address] [place] [address] documented as of this encounter Goals Goal Patient Goal Type Associated Problems Recent Progress Patient-Stated? Author Autogenerat ed Goal Care Plan Autogenerated Problem No Jennifer Sabillon Autogenerat ed Goal Care Plan Autogenerated Problem No Lokesh Anderson MD documented as of this encounter Procedures Procedure Name Priority Date/Time Associated Diagnosis Comments CBC W/O DIFFERENTIAL Routine 04/09/2025 10:14 AM EDT IPMN (intraductal papillary mucinous neoplasm) PREALBUMIN, PLASMA Routine 04/09/2025 10 :14 AM EDT IPMN (intraductal papillary mucinous neoplasm) COMPREHENSIVE METABOLIC PANEL, PLASMA Routine 04/09/2025 10:14 AM EDT IPMN (intraductal papillary mucinous neoplasm) documented in this encounter Results * (ABNORMAL) CBC W/O Differential (04/09/2025 10:14 AM EDT) WBC Count 12.10(H) 3.70 - 10.30 10*3/uL LAB HEMATOLOGY METHOD 04/09/2025 11:00 AM EDT [facility] RBC Count 4.49 3.90 - 5.20 10*6/uL LAB HEMATOLOGY METHOD 04/09/2025 11:00 AM EDT [facility] HGB 13.4 11.2 - 15.7 g/dL LAB HEMATOLOGY METHOD 04/09/2025 11:00 AM EDT [facility] HCT 40.3 34.0 - 45.0 % LAB HEMATOLOGY METHOD 04/09/2025 11:00 AM EDT [facility] Platelet Count 406(H) 155 - 369 10*3/uL LAB HEMATOLOGY METHOD 04/09/2025 11:00 AM EDT [facility] MCV 90 79 - 98 fL LAB HEMATOLOGY METHOD 04/09/2025 11:00 AM EDT [facility] MCH 29.8 26.0 - 32.0 pg LAB HEMATOLOGY METHOD 04/09/2025 11:00 AM EDT [facility] MCHC 33.3 30.7 - 35.5 g/dL LAB HEMATOLOGY METHOD 04/09/2025 11:00 AM EDT [facility] RDW 14.1 11.5 - 14.5 % LAB HEMATOLOGY METHOD 04/09/2025 11:00 AM EDT [facility] MPV 10.9 8.8 - 12.5 fL LAB HEMATOLOGY METHOD 04/09/2025 11:00 AM EDT [facility] nRBC 0.0 <=0.0 per 100 WBCs LAB HEMATOLOGY METHOD 04/09/2025 11:00 AM EDT [facility] Blood Venous blood specimen / Unknown Venipuncture / Unknown 04/09/2025 10:14 AM EDT 04/09/2025 10:51 AM EDT us Lokesh Anderson MD LAB BLOOD ORDERABLES Final Resul t [facility] [address] [place] [address] * (ABNORMAL) Comprehensive Metabolic Panel, Plasma (04/09/2025 10:14 AM EDT) Glucose, Plasma 445(H) 74 - 99 mg/dL 04/09/2025 11:44 AM EDT [facility] BUN, Plasma 21 8 - 23 mg/dL 04/09/2025 11:44 AM EDT [facility] Creatinine, Plasma 0.51(L) 0.60 - 1.10 mg/dL 04/09/2025 11:44 AM EDT [facility] BUN/Creatinine Ratio 41 04/09/2025 11:44 AM EDT [facility] Sodium, Plasma 137 136 - 145 mmol/L 04/09/2025 11:44 AM EDT [facility] Potassium, Plasma 4.5 3.6 - 4.9 mmol/L 04/09/2025 11:44 AM EDT [facility] Chloride, Plasma 101 97 - 107 mmol/L 04/09/2025 11:44 AM EDT [facility] CO2, Plasma 23 22 - 29 mmol/L 04/09/2025 11:44 AM EDT [facility] Anion Gap 13 6 - 16 mmol/L 04/09/2025 11:44 AM EDT [facility] Total Calcium, Plasma 8.9 8.9 - 10.2 mg/dL 04/09/2025 11:44 AM EDT [facility] Total Protein 7.0 6.3 - 7.9 g/dL 04/09/2025 11:44 AM EDT [facility] Albumin, Plasma 3.3(L) 3.5 - 5.2 g/dL 04/09/2025 11:44 AM EDT [facility] AST, Plasma 22 10 - 35 U/L 04/09/2025 11:44 AM EDT [facility] Comment:Hemolyzed, result ma y be falsely increased. ALT, Plasma 11 10 - 35 U/L 04/09/2025 11:44 AM EDT [facility] Alkaline Phosphatase, Plasma 88 46 - 142 U/L 04/09/2025 11:44 AM EDT [facility] Total Bilirubin, Plasma 0.3 0.2 - 1.1 mg/dL 04/09/2025 11:44 AM EDT [facility] eGFRcr 99.9 mL/min/1.7 3m*2 04/09/2025 11:44 AM EDT [facility] Comment:Reported eGFRcr in m L/min/1.73m2 is based the CKD-EPI 2020 equation that does not use a race coefficient. Blood Venous blood specimen / Unknown Venipuncture / Unknown 04/09/2025 10:14 AM EDT 04/09/2025 11:10 AM EDT us Lokesh Anderson MD LAB BLOOD ORDERABLES Final Resul t Performing Organization Address City/[facility]/ZIP Co de Phone Number [facility] [address] [place] [address] * Prealbumin, Plasma (04/09/2025 10:14 AM EDT) Prealbumin, Plasma 24.6 20.0 - 41.0 mg/dL 04/09/2025 11:44 AM EDT [facility] Blood Venous blood specimen / Unknown Venipuncture / Unknown 04/09/2025 10:14 AM EDT 04/09/2025 11:10 AM EDT us Lokesh Anderson MD LAB BLOOD ORDERABLES Final Resul t [facility] [address] [place] [address] documented in this encounter Visit Diagnoses Diagnosis IPMN (intraductal papillary mucinous neoplasm) Neoplasm of unspecified nature of digestive system [...] documented as of this encounter Care Teams Furnace Installer Helper Relationship Specialty Start Date End Date Golden Newell MD [address] [place] [address] PCP - General 12/04/20 documented as of this encounter
--- OUTSIDE RECORDS SUMMARY | 2025-04-23 10:15 | XMS_ITS | Encounter Summary ---
Author Organization [facility] Address [address] [place] [address] Care Team Providers Care Live In Housekeeper Name Role Phone Golden Newell MD Primary Care Provider [phone] Reason for Visit * Reason Comments Follow-up IPMN (intraductal pa pillary mucinous neoplasm) Encounter Details Date Type Department Care Team (Latest Contact Info) Description 04/23/2025 11:15 AM EDT Office Visit [facility] Multidisciplinary Oncology Clinic [address] [place] [phone] Lokesh Anderson MD [address] [address] IPMN (intraductal papillary mucinous neoplasm) (Primary Dx) Social History Tobacco Use Types Packs/Day Years Used Date Smoking Tobacco: Never Smokeless Tobacco: Never Alcohol Use Standard Drinks/Week Comments Never 0 (1 standard drink = 0.6 oz pur e alcohol) PHQ-2 Answer Date Recorded Patient Health Questionnaire-2 Score 0 04/23/2025 PHQ-9 Answer Date Recorded Patient Health Questionnaire-9 [...] any time in the past 12 m [facility], were you homeless or living in a penitentiary (including now)? No 03/21/2025 [facility] Utilities Answer Date Recorded In the past [...] Sign Reading Time Taken Comments Blood Pressure 129/80 04/23/2025 11:40 AM EDT Pulse 88 04/23/2025 11:40 AM EDT Temperature 36.7 C (98 F) 04/23/2025 11:40 AM EDT Respiratory Rate 16 04/23/2025 11:4 0 AM EDT Oxygen Saturation 97% 04/23/2025 11: 40 AM EDT Inhaled Oxygen Concentration - - Weight 72.5 kg (159 lb 13.3 oz) 025 11:40 AM EDT Height 162.6 cm (5' 4 ) 04/23/2025 11:4 0 AM EDT Body Mass Index 27.44 04/23/2025 11:40 AM EDT documented in this encounter Functional Status * Over the past 2 weeks, how often have you been bothered by any of the following problems? Question Answer Date of Assessment Author Little interest or pleasure in doing things Not at all 04/23/2025 11:46 AM EDT Sarah Hou Feeling down, depressed, or hopeless Not at all 03/27 11:46 AM EDT Sarah Hou Patient Health Questionnaire-2 Score 0 03/27 11:46 AM EDT Sarah Hou * Question Answer Date of Assessment Author Thoughts that you would be b sarah off or hurting yourself in some way Not at all 04/23/2025 11:46 AM EDT Sarah Hou documented as of this encounter Miscellaneous Notes * Significant Event - Martha Winn RN - 04/23/2025 1:04 PM EDT Patient's name and verified. Both lumens were flushed with 10ml of NS each. Patient was placed in the supine position and PICC line was removed with out incident. Pressure dressing applied with no noted bleeding. Patient resting with the head of the bed slightly elevated. PICC was removed at 12:40. Instructed her to notify staff if PICC site started bleeding. Spouse is at her bedside. * Progress Notes - Lokesh Anderson MD - 04/23/2025 11:15 AM EDT Surgical Oncology Clinic Note Chief complaint: Dot Dale is a 69 y.o. s/p open distal pancreatectomy and splenectomy. History of Present Illness: HPI The patient has been getting TPN at home. She has continued to havesome difficulty tolerating much by mouth. Allergies: Allergies[1] Home Medications: Prior to Admission medications Medication Sig Start Date End Date Taking? Authorizing Provider Adult 2-in-1 TPN Infuse 70 mL/hr into a venous catheter continuously at 70 mL/hr over 24 hours (central line). 10/10/25 Yes Katlyn Hopkins APRN Alcohol Sheets (Alcoh-Wipe) sheet Use as directed. 04/04/25 Yes Katlyn Hopkins APRN Alcohol Swabs (Alcohol Prep) 70 % pads [...] TPN connection. 04/04/25 Yes Katlyn Hopkins APRN enoxaparin (Lovenox) 40 MG/0.4ML solution prefilled syringe Inject 0.4 mL under the skin daily for 12 days. 04/05/25 04/23/25 Yes Katlyn Hopkins APRN fat emulsion fish/plant based (SMOFlipid) 20 % Infuse 250 mL into a venous catheter every other dayat 20.8 mL/hr over 12 hours. 04/04/25 Yes Katlyn Hopkins APRN glucose blood test strip Test two times daily 04/04/25 Yes Katlyn Hopkins APRN insulin glargine (Lantus SoloStar) 100 UNIT/ML injection pen Inject 8 Units under the skin 1 (one) time each day at the same time. Inject 8u one hour after TPN nut processing supervisor. 04/04/25 Yes Ktalyn Hopkins APRN lactobacillus acidophilus (Floranex) tablet Take 1 tablet by mouth 2 times a day with meals for 14 days. 04/04/25 04/23/25 Yes Katlyn Hopkins APRN Lancets misc Test two times daily 04/04/25 Yes Katlyn Hopkins APRN ondansetron ODT (Zofran-ODT) 4 MG disintegrating tablet Dissolve 1 tablet on the tongue every 8 hours as needed for nausea or vomiting. 04/11/25 Yes Vibha Osborn APRN oxyCODONE (Roxicodone) 5 MG immediate release tablet Take 1 tablet by mouth every 8 hours as neededfor moderate pain. 04/04/25 Yes Katlyn Hopkins APRN pantoprazole (Protonix) 40 MG EC tablet Take 1 tablet by mouth daily. Do not crush, chew, or split.04/05/25 Yes Katlyn Hopkins APRN pen needle, diabetic 31G X 5 MM misc Use as directed with insulin pen. 04/04/25 Yes Katlyn Hopkins APRN tamsulosin (Flomax) 0.4 MG 24 hr capsule Take 1 capsule by mouth 1 time each day with dinner. 04/04/25 05/04/25 Yes Katlyn Hopkins APRN [Paused] Calcium Carb-Cholecalciferol (CALCIUM + VITAMIN D3 PO) Take by mouth. Patient not taking: Reported on 04/23/2025 Wait to take this until your doctor or other care provider tells you to start again. Provider, Historical [Paused] calcium carbonate (Tums) 500 MG chewable tablet Chew 1 tablet daily. Patient not taking: Reported on 04/23/2025 Wait to take this until your doctor or other care provider tells you to start again. Provider, Historical ciprofloxacin (Cipro) 500 MG tablet Take 1 tablet by mouth 2 times a day. Patient not taking: Reported on 04/23/2025 01/28/25 Provider, Historical [Paused] cyanocobalamin (Vitamin B-12) 1000 MCG tablet Take 1 tablet by mouth 1 (one) time each dayat the same time. Patient not taking: Reported on 04/23/2025 Wait to take this until your doctor or other care provider tells you to start again. Provider, Historical [Paused] HYDROcodone-acetaminophen (Fran[place]ia) 5-325 MG tablet every 4 hours as needed. Patient not taking: Reported on 04/23/2025 Wait to take this until your doctor or other care provider tells you to start again. Provider, Historical lidocaine (Lidoderm) 5 % patch Apply 1 patch topically 1 (one) time each day at the same time over 12 hours. Remove & discard patch within 12 hours or as directed by MD. Patient not taking: Reported on 04/23/2025 04/04/25 Katlyn Hopkins, YOBANI Review of Systems: 14 ROS was conducted and is otherwise negative unless noted in HPI. Physical exam: GENERAL: WD, WN, NAD. EYES: No scleral icterus or conjunctivitis HENT: Atraumatic, normocephalic NECK: Supple, no JVD RESP/CHEST: Symmetric expansion; non labored. CARD: Regular rate and rhythm Extremities: No cyanosis or clubbing. GI: No organomegaly or masses. Soft, Nontender, nondistended. Incision is c/d/I. SKIN: No rash, sores, lesions or subcutaneous nodules. NEURO: AAOx4. Motor intact and no focal deficits PSYCH: Mood and affect congruent and appropriate to situation. Objective: All laboratory, images, tracings, and vital sign data are personally reviewed unless otherwise noted. VITALS BP Temp Pulse Resp SpO2 .FLOWAMB[14 Weight: 72.5 kg (159 lb 13.3 oz) .FLOWAMB[11 LABS (PAST 18Labs in last 18 hours CBC WBC ?? Hb ?? Plt ?? Hct ?? ANC ?? INR ??, PTT ??, Anti-Xa ?? BMP Na ?? Cl ?? BUN ?? Glu ?? K ?? Co2 ?? Cr ?? Ca ?? iCa ?? Mg ??, Phos ?? Lactate ?? LFT AST ?? AlkPhos ?? T Prot ?? ALK ?? Bili ?? Alb ?? D.Bili ?? HOURS) No results found for: CEA No results found for: AFP Pathology: Radiographics/Diagnostics: === 03/20/25 === CT ABDOMEN PELVIS W IV CONTRAST - Narrative - CLINICAL INDICATION: Postoperative leukocytosis and abdominal pain. TECHNIQUE: Multiple axial CT images were obtained from lung bases through pubic symphysis following administration of IV contrast, Omnipaque 300, 100 mL. Reformatted images in the coronal and sagittal planes were generated from the axial data set to facilitate diagnostic accuracy. Total DLP (Dose-Length Product): 1012 mGy*cm . Please note: The reported value represents the totalof one or more individual components during the CT acquisition on this date and at this time, and as such, the same value may appear in more than one CT report depending on the interpreting/reporting physicians. COMPARISON: Outside CT February 14, 2025. FINDINGS: Lower Chest: Trace right and small left pleural effusions with associated atelectasis. Solid Abdominal Organs: Homogenous hepatic enhancement. Absent gallbladder. Increased intrahepatic biliary ductal dilatation and resolution of the biliary. Dilated extra hepatic bile duct measuring up to 18 mm. Interval distal pancreatectomy and splenectomy with fat stranding the surgical bed. Surgical drain terminates left upper quadrant. The remnant pancreas is grossly unremarkable with low-attenuation along the suture margin, which may represent edema or fluid. No measurable collection. Unremarkable bilateral adrenal glands and kidneys. No hydronephrosis. GI Tract/Mesentery/Peritoneum: Small hiatal hernia versus distal esophageal diverticulum. The largeand small bowel are normal in caliber. Pancolonic and rectal wall thickening. Feculent material within distal small bowel suggests stasis. No pneumatosis or pneumoperitoneum. Pelvic Viscera: Distended urinary bladder without gross abnormality. Intraluminal air likely related to prior catheterization. Unchanged uterine fundal calcification. There may be a urethral diverticulum (3:295). Lymph Nodes/Vasculature: Subcentimeter retroperitoneal lymph nodes remain unchanged. The aortoiliacvasculature is patent and normal in caliber. Free Fluid: Trace free fluid. No organized collection or abscess. Musculoskeletal and Body Wall: Surgical changes of the midline abdomen. Fat- containing umbilical hernia. No acute bony abnormalities. - Impression - Surgical changes of interval cholecystectomy, distal pancreatectomy and splenectomy for distal pancreas IPMN. Trace free fluid along the resection margin. No measurable collection or abscess. Intra and extrahepatic biliary ductal dilatation, increased from comparison, and resolution of previously noted pneumobilia. Diffuse colonic and rectal wall thickening concerning for proctocolitis. Question of urethral diverticulum. Trace right and small left effusions with atelectasis. CRITICAL RESULT: No. COMMUNICATION: Per this written report. Drafted by Enriqueta Muñiz MD on 03/29/2025 4:37 PM Final report signed by Enriqueta Muñiz MD on 03/29/2025 6:36 PM Assessment & Plan: This is a 69 year old female s/p open distal panc and spleen. She comes to clinic today with DARIAN indwelling and output has been minimal. There is some serous fluid in the bulb. I have removed the drain today. I have also discussed the need to try stopping TPN. I believe that the high blood sugars have been contributing to some anorexia. We have stopped the TPN and pulled the picc line. I have encouraged po diet. We will see her back in next week's clinic. Lokesh Anderson MD 04/24/25 2:04 PM [1] No Known Allergies documented in this encounter Plan of Treatment Upcoming Encounters Date Type Department Care Team (Late st Contact Info) Description 06/13/2025 10:00 AM EST Office Visit [facility] [address] [place] [address] Vibha Osborn, SAMPLE PREP TECHNICIAN [address] [place] [address] documented as of this encounter Goals Goal Patient Goal Type Associated Problems Recent Progress Patient-Stated? Author Autogenerat ed Goal Care Plan Autogenerated Problem No SabillonJennifer Autogenerat ed Goal Care Plan Autogenerated Problem No Lokesh Anderson MD documented as of this encounter Visit Diagnoses Diagnosis IPMN (intraductal [...] has been complete d for the patient 04/23/2025 11:43 AM EDT A Body Mass Index follow-up plan has been documented for the patient 04/24/2025 2:08 PM EDT documented as of this encounter Care Teams Live In Housekeeper Relationship Specialty Start Date End Date Golden Newell MD [address] [facility] [address] [place] [address] PCP - General 12/04/20 documented as of this encounter
--- OUTSIDE RECORDS SUMMARY | 2025-04-30 13:00 | XMS_ITS | Encounter Summary ---
Author Organization [facility] Address [address] 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) Encounter Details Date Type Department Care Team (Latest Contact Info) Description 04/30/2025 1:00 PM EST Office Visit [facility] [address] [place] [address] Alesia Cui D, DREDGEMASTER [address] [place] [id number] IPMN (intraductal papillary mucinous neoplasm) (Primary Dx) Social History Tobacco Use Types Packs/Day Years Used Date Smoking Tobacco: Never Smokeless Tobacco: Never Alcohol Use Standard Drinks/Week Comments Never 0 (1 standard drink = 0.6 oz pur e alcohol) PHQ-2 Answer Date Recorded Patient Health Questionnaire-2 Score 0 04/30/2025 PHQ-9 Answer Date Recorded Patient Health Questionnaire-9 [...] any time in the past 12 m [facility], were you homeless or living in a fdc (including now)? No 03/21/2025 [facility] Utilities Answer Date Recorded In the past [...] Sign Reading Time Taken Comments Blood Pressure 113/69 04/30/2025 12:56 PM EST Pulse 78 04/30/2025 12:56 PM EST Temperature 36.7 C (98 F) 04/30/2025 12:56 PM EST Respiratory Rate 16 04/30/2025 12:56 PM EST Oxygen Saturation 96% 04/30/2025 12:56 PM EST Inhaled Oxygen Concentration - - Weight 70.9 kg (156 lb 4.9 oz) 04/30/2025 12:56 PM EST Height 162.6 cm (5' 4 ) 04/30/2025 12:56 PM EST Body Mass Index 26.83 04/30/2025 12:56 PM EST documented in this encounter Functional Status * Over the past 2 weeks, how often have you been bothered by any of the following problems? Question Answer Date of Assessment Author Little interest or pleasure in doing things Not at all 04/30/2025 1:02 PM Sarah Kirkpatrick Feeling down, depressed, or hopeless Not at all 10/2024 1:02 PM EST Sarah Hou Patient Health Questionnaire-2 Score 0 10/2024 1:02 PM EST Sarah Hou * Question Answer Date of Assessment Author Thoughts that you would be b sarah off or hurting yourself in some way Not at all 04/30/2025 1:02 PM Sarah Kirkpatrick documented as of this encounter Miscellaneous Notes * Progress Notes - Alesia Cui APRN - 04/30/2025 1:00 PM EST Surgical Oncology Outpatient Progress note Verbal consent was obtained to use ambient listening technology to assist in the documentation of the encounter: yes Chief complaint: Dot Dale is a 69 y.o. seen in Follow up for Nutrition check after d/c TPN History of Present Illness: History of Present Illness Patient is a 69-year-old female with a history of mucinous cystic neoplasm of the pancreas, status post distal pancreatectomy. She presents today for a 1-week follow-up for a nutrition check after discontinuing TPN. The patient reports an improvement in her condition over the past week and expresses relief at being off TPN. Her appetite has slightly improved, with her diet today consisting of an egg, a small piece of toast, and a nibble of vences, all of which she tolerated well without any nausea or vomiting. She notes an improvement in her bowel movements, which are more formed and of normal color. She experiences abdominal pain when changing positions from sitting to standing. She does not have any remaining justyn but mentions a small knot at the incision site. She recalls having a CT scan during her hospital stay and believes another one is scheduled for this month. She reports an increase in her activity levels. She also mentions that her blood glucose levels were high while on TPN but have since decreased to around 127. PAST SURGICAL HISTORY: Distal pancreatectomy SOCIAL HISTORY Diet: Breakfast includes egg, toast, and vences. Past Medical History: Past Medical History Pertinent Negatives[1] Past Surgical History: Surgical History[2] Social History: Tobacco: Tobacco Use: Low Risk (03/20/2025) Patient History Smoking Tobacco Use: Never Smokeless Tobacco Use: Never Passive Exposure: Not on file Alcohol: Alcohol Use: Not on file Illicit drug use: Social History Substance and Sexual Activity Drug Use Never Allergies: Allergies[3] Family Medical History: family history includes Cancer in her mother. Home Medications: Prior to Admission medications Medication Sig Start Date End Date Taking? Authorizing Provider Adult 2-in-1 TPN Infuse 70 mL/hr into a venous catheter continuously at 70 mL/hr over 24 hours (central line). 04/04/25 Katlyn Hopkins APRN Alcohol Sheets (Alcoh-Wipe) sheet Use as directed. 04/04/25 Katlyn Hopkins APRN Alcohol Swabs (Alcohol Prep) 70 % pads 04/04/25 Provider, Historical amLODIPine (Norvasc) 5 MG tablet Take 1 tablet by mouth daily. 04/05/25 Katlyn Hopkins APRN aspirin 81 MG EC tablet Take 1 tablet by mouth daily. Provider, Historical atorvastatin (Lipitor) 80 MG tablet Take 1 tablet by mouth daily. Provider, Historical Blood Glucose Monitoring Suppl (True Metrix Meter) w/Device kit 04/04/25 Provider, Historical Blood Glucose Monitoring Suppl device Check blood sugar, twice daily. Once, one hour after TPN disconnects, and one hour after TPN connection. 04/04/25 Katlyn Hopkins APRN [Paused] Calcium Carb-Cholecalciferol [...] skin daily for 12 days. 04/05/25 04/23/25 Katlyn Hopkins APRN fat emulsion fish/plant based (SMOFlipid) 20 % Infuse 250 mL into a venous catheter every other dayat 20.8 mL/hr over 12 hours. 04/04/25 Katlyn Hopkins APRN glucose blood test strip Test two times daily 04/04/25 Katlyn Hopkins APRN [Paused] HYDROcodone-acetaminophen ([place]) 5-325 MG tablet every 4 hours as needed. Patient not taking: Reported on 04/23/2025 Wait to take this until your doctor or other care provider tells you to start again. Provider, Historical insulin glargine (Lantus SoloStar) 100 UNIT/ML injection pen Inject 8 Units under the skin 1 (one) time each day at the same time. 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 04/04/25 Katlyn Hopkins APRN lactobacillus acidophilus (Floranex) tablet Take 1 tablet by mouth 2 times a day with meals for 14 days. 04/04/25 04/23/25 Katlyn Hopkins APRN Lancets misc Test two times daily 04/04/25 Katlyn Hopkins APRN lidocaine (Lidoderm) 5 % patch Apply 1 patch topically 1 (one) time each day at the same time over 12 hours. Remove & discard patch within 12 hours or as directed by MD. Patient not taking: Reported on 04/23/2025 04/04/25 Katlyn Hopkins APRN ondansetron ODT (Zofran-ODT) 4 MG disintegrating tablet Dissolve 1 tablet on the tongue every 8 hours as needed for nausea or vomiting. 04/11/25 Vibha Osborn APRN oxyCODONE (Roxicodone) 5 MG immediate release tablet Take 1 tablet by mouth every 8 hours as neededfor moderate pain. 04/04/25 Katlyn Hopkins APRN pantoprazole (Protonix) 40 MG EC tablet Take 1 tablet by mouth daily. Do not crush, chew, or split.04/05/25 Katlyn Hopkins APRN pen needle, diabetic 31G X 5 MM misc Use as directed with insulin pen. 04/04/25 Katlyn Hopkins APRN tamsulosin (Flomax) 0.4 MG 24 hr capsule Take 1 capsule by mouth 1 time each day with dinner. 04/04/25 05/04/25 Katlyn Hopkins APRN Review of Systems: Review of Systems Constitutional: Negative for chills, fatigue and fever. HENT: Negative. Eyes: Negative. Respiratory: Negative. Cardiovascular: Negative. Gastrointestinal: Negative for abdominal distention, abdominal pain, constipation, diarrhea, nauseaand vomiting. Endocrine: Negative. Genitourinary: Negative. Musculoskeletal: Negative. Skin: Negative. Neurological: Negative. Hematological: Negative. Psychiatric/Behavioral: Negative. Physical exam: Physical Exam Constitutional: Appearance: Normal appearance. She is normal weight. HENT: Head: Normocephalic. Eyes: Pupils: Pupils are equal, round, and reactive to light. Cardiovascular: Rate and Rhythm: Normal rate and regular rhythm. Pulses: Normal pulses. Heart sounds: Normal heart sounds. Pulmonary: Effort: Pulmonary effort is normal. Breath sounds: Normal breath sounds. Abdominal: General: Abdomen is flat. Bowel sounds are normal. Palpations: Abdomen is soft. Musculoskeletal: General: Normal range of motion. Cervical back: Normal range of motion and neck supple. Skin: General: Skin is warm and dry. Capillary Refill: Capillary refill takes less than 2 seconds. Neurological: General: No focal deficit present. Mental Status: She is alert and oriented to person, place, and time. Mental status is at baseline. Psychiatric: Mood and Affect: Mood normal. Behavior: Behavior normal. Thought Content: Thought content normal. Judgment: Judgment normal. Physical Exam Integument/Skin: Incision site appears to be healing well. No signs of infection. Slight redness noted but no signs of infection. Objective: All laboratory, images, tracings, and vital sign data are personally reviewed unless otherwise noted. ECOG-0 Life expectancy greater then 3 months VITALS Visit Vitals BP 113/69 Pulse 78 Temp 36.7 ??C (98 ??F) Ht 1.626 m (5' 4 ) Wt 70.9 kg (156 lb 4.9 oz) SpO2 96% BMI 26.83 kg/m?? LABS Lab Results Component Value Date WBC 12.10 (H) 04/09/2025 HGB 13.4 04/09/2025 HCT 40.3 04/09/2025 PLT 406 (H) 04/09/2025 NA 137 04/09/2025 K 4.5 04/09/2025 CL 101 04/09/2025 CO2 23 04/09/2025 BUN 21 04/09/2025 CREATININE 0.51 (L) 04/09/2025 GLUCOSE 445 (H) 04/09/2025 CALCIUM 8.9 04/09/2025 MG 2.0 04/04/2025 PHOS 2.6 04/04/2025 Lab Results Component Value Date TP 7.0 04/09/2025 ALBUMIN 3.3 (L) 04/09/2025 AST 22 04/09/2025 ALT 11 04/09/2025 BILITOT 0.3 04/09/2025 ALKPHOS 88 04/09/2025 Lab Results Component Value Date APTT 25 02/26/2025 INR 1.0 02/26/2025 Lab Results Component Value Date PREALBUMIN 24.6 04/09/2025 PREALBUMIN 9.9 (L) 03/29/2025 PREALBUMIN 17.9 (L) 02/26/2025 Lab Results Component Value Date CA199 42.2 (H) 02/07/2025 Results Laboratory Studies Blood glucose dropped to 127. Radiographics/Diagnostics: === 03/20/25 === CT ABDOMEN PELVIS [...] Enriqueta Muñiz MD on 03/29/2025 6:36 PM Pathology: Final Diagnosis (no units) Date/Time Value 03/20/2025 0841 A. FALCIFORM LIGAMENT, EXCISION: - FIBROADIPOSE TISSUE; NEGATIVE FOR MALIGNANCY B. LYMPH NODE, CELIAC AXIS, DISSECTION: - ONE LYMPH NODE NEGATIVE FOR MALIGNANCY (0/1) C. PANCREAS AND SPLEEN, DISTAL PANCREATECTOMY AND SPLENECTOMY: - MUCINOUS CYSTIC NEOPLASM (3.5 CM) - EIGHTEEN LYMPH NODES NEGATIVE FOR MALIGNANCY (0/18) - SPLEEN WITHOUT PATHOLOGIC ABNORMALITY - PROXIMAL PANCREATIC RESECTION MARGIN NEGATIVE FOR NEOPLASM Comment (no units) Date/Time Value 02/07/2025 0951 The findings are not incompatible with a pancreatic cyst; however, the cytologic findings as described above do not allow for a definitive diagnosis. Clinical correlation is required. Recommend re-sampling if there is discordance between the imaging findings and these cytologic features. Assessment & Plan: Assessment & Plan 1. Postoperative status following distal pancreatectomy. Significant improvement post-surgery is noted. The observed knot is likely a stitch, which may eventually protrude through the skin. The incision site is healing well, with no signs of infection. Thescar from the PICC line removal is also healing appropriately. The knot could be a stitch, and trimming it with a nail clipper if it protrudes through the skin was advised. The mucinous cystic neoplasm was a precancerous lesion, necessitating its removal to prevent potential progression to pancreatic cancer. Monitoring bowel movements for severe cramping, bloating, diarrhea, or greasy stools is essential, as these could indicate exocrine pancreatic insufficiency. If these symptoms occur, Creon will be prescribed to aid in fat digestion. A follow-up call will be made post her appointment with the GI provider on 05/19/2025 to discuss their proposed plan of action. 2. Discontinuation of Total Parenteral Nutrition (TPN). The patient is happy to be off TPN, and the pump was picked up last night. Blood glucose levels have significantly dropped to 127 since discontinuing TPN. The patient was informed that high blood glucose is a common side effect of TPN due to its high sugar content, and levels typically normalize after stopping TPN. The pharmacy will be contacted to halt any further shipments of TPN supplies. 3. Nutritional status and bowel function. Eating has improved slightly, with tolerance to eggs, toast, and vences without nausea or vomiting. Bowel movements are more formed and of normal color, with no pain except when getting up and down, likely due to scar tissue. Continued monitoring of bowel function is advised. 4. Follow-up imaging and appointments. The patient has an MRI scheduled for 05/19/2025 at 11:00 AM and a GI appointment at 3:40 PM on the same day. She was advised to call the GI provider to attempt to schedule the appointment closer to the MRI time to avoid long waiting periods. The MRI will provide better images of the organs and stomach, and the GI provider will follow up on pancreatic health. The patient was given the GI provider's phone number ([phone]) for rescheduling. 5. Disposal of unused medical supplies. Information regarding organizations that accept donations of unused medical supplies will be provided. The patient was informed that these supplies could be donated to help other patients whose insurance does not cover such supplies. Further details will be communicated once available. As always, she is encouraged to contact our office at the number provided for any additional questions or concerns. She voiced understanding of the plan, asked appropriate questions, and all questions were answered to her satisfaction today. Alesia Cui APRN 05/01/25 11:15 AM [1] Past Medical History: Diagnosis Date Cranial nerve III palsy High cholesterol Pancreatic cyst Unspecified injury of unspecified wrist, hand and finger(s), initial encounter Hand injury [2] Past Surgical History: Procedure Laterality Date CYSTOSCOPY ENDOSCOPY EXTERNAL - ECG EXTERNAL - ECG [3] No Known Allergies documented in this encounter Plan of Treatment Upcoming Encounters Date Type Department Care Team (Late st Contact Info) Description 06/13/2025 10:00 AM EST Office Visit [facility] [address] [place] [address] Vibha Osborn APRN [address] [place] [address] documented as of this encounter Goals Goal [...] has been complete d for the patient 04/30/2025 1:00 PM EST A Body Mass Index follow-up plan has been documented for the patient 05/01/2025 11:18 AM EST documented as of this encounter Care Teams Manager Surgery Relationship Specialty Start Date End Date Golden Newell MD [address] [place] [address] PCP - General 12/04/20 documented as of this encounter
--- OUTSIDE RECORDS SUMMARY | 2025-05-13 18:45 | XMS_ITS | Encounter Summary ---
Author Organization [facility] Address [address] [place] [address] Care Team Providers Care Functional Analyst Name Role Phone Golden Newell MD Primary Care Provider [phone] Reason for Referral * Home Health (Routine) - Authorized Specialty Diagnoses / Procedures Referred By Contac t Referred To Contact Home Health Services Diagnoses Abdominal pain, unspecified abdominal location Conrado Park APRN [address] [address] Phone: tel: fax: Referral ID Status Reason Start Date Expiration Date Visits Requested Visits Authorized [id number] Authorized Specialty Services Required 06/02/2025 12/02/2026 999 999 * Home Health (Routine) - Authorized Specialty Diagnoses / Procedures Referred By Contac t Referred To Contact Home Health Services Diagnoses On total parenteral nutrition (TPN) Conrado Park APRN [address] [address] Phone: tel: fax: Referral ID Status Reason Start Date Expiration Date Visits Requested Visits Authorized [id number] Authorized Specialty Services Required 06/02/2025 12/02/2026 999 999 * Consultation (Routine) - Authorized Specialty Diagnoses / Procedures Referred By Contac t Referred To Contact Diabetes Services Diagnoses On total parenteral nutrition (TPN) Conrado Park APRN [address] [address] Phone: tel: fax: Referral ID Status Reason Start Date Expiration Date V isits Requested Visits Authorized [id number] Authorized 06/02/2025 12/02/2026 1 1 * Home Health (Routine) - Authorized Specialty Diagnoses / Procedures Referred By Contac t Referred To Contact Home Health Services Diagnoses Abdominal pain, unspecified abdominal location IPMN (intraductal papillary mucinous neoplasm) Pituitary adenoma (CMS/HCC) Katlyn Hopkins APRN [address] [address] Phone: tel: fax: Referral ID Status Reason Start Date Expiration Date Visits Requested Visits Authorized [id number] Authorized Specialty Services Required 5 11/19/2026 999 999 * Home Health (Routine) - Authorized Specialty Diagnoses / Procedures Referred By Contac t Referred To Contact Home Health Services Diagnoses Abdominal pain, unspecified abdominal location [place] Park APRN [address] [address] Phone: tel: fax: Referral ID Status Reason Start Date Expiration Date Visits Requested Visits Authorized [id number] Authorized Specialty Services Required 5 11/15/2026 999 999 * Consultation (Routine) - Authorized Specialty Diagnoses / Procedures Referred By Contact Referred To Contact Interventional Radiology Diagnoses Peripancreatic fluid collection Lokesh Anderson MD [address] [address] Phone: tel:[phone] fax:[phone] [facility] Interventional Radiology [address] [place] [address] Phone: tel: Referral ID Status Reason Start Date Expiration Date Visits Requested Visits Authorized [id number] Authorized Specialty Services Required 11/13/2026 1 1 Scheduling Instructions Peripancreatic drain Reason for Visit * Reason Comments Vomiting Nausea * Auth/Cert (Routine) Specialty Diagnoses / Procedures Referred By Contac t Referred To Contact Diagnoses Peripancreatic fluid collection Zay Sheth MD [address] [address] Phone: tel: fax: P[facility] A Emergency Department [address] [place] [phone] Phone: tel: Referral ID Status Reason Start Date Expiration Date Visits Re quested Visits Authorized [id number] 1 1 Encounter Details Date Type Department Care Team (Late st Contact Info) Description 05/13/2025 6:45 PM EST - 06/02/2025 5:20 PM EST Hospital Encounter [facility] Inpatient [facility] [address] [place], [place] [phone] Lan Ledezma MD [facility] [place] [address] Stanley Quiñones MD [address] [place] [phone] Zay Sheth MD 800 [facility] [address] [address] Lokesh Anderson MD [address] [address] Abdominal pain, unspecified abdominal location (Primary Dx); Nausea and vomiting, unspecified vomiting type; Peripancreatic fluid collection; IPMN (intraductal papillary mucinous neoplasm); Pituitary adenoma (CMS/HCC); Pleural effusion; On total parenteral nutrition (TPN) Discharge Disposition: Home-Health Care c Social History Tobacco Use Types Packs/Day Years [...] afraid of your partner or ex-partner? No 05/14/2025 Within the last year, have y ou been humiliated or emotionally abused in other ways by your partner or ex-partner? No Within the last year, have y ou been kicked, hit, slapped, or otherwise physically hurt by your partner or ex-partner? No 05/14/2025 Within the last year, have y ou been raped or forced to have any kind of sexual activity by your partner or ex-partner? No 05/14/2025 Hunger Vital Sign Answer Date Recorded Within the past 12 months, y ou worried that your food would run out before you got the money to buy more. Never true 05/14/20 25 Within the past 12 months, t he food you bought just didn't last and you didn't have money to get more. Never true 05/14/2025 PRAPARE - Transportation Answer Date Re corded In the past 12 months, has l ack of transportation kept you from medical appointments or from getting medications? No 04/26 In the past 12 months, has l ack of transportation kept you from meetings, work, or from getting things needed for daily living? No 05/14/2025 Housing Stability Vital Sign Answer [place] e Recorded In the last 12 months, was t here a time when you were not able to pay the mortgage or rent on time? No 05/14/2025 In the past 12 months, how m any times have you moved where you were living? 0 05/14/2025 At any time in the past 12 m [facility], were you homeless or living in a detention (including now)? No 05/14/2025 [facility] Utilities Answer Date Recorded In the past 12 months has [facility] electric, gas, oil, or water company threatened to shut off services in your home? No 05/14/2025 Comments No Sex and Gender Information Value Date Recorded Sex Assigned at Not on file Legal Sex Female 7:45 PM EDT Gender Identity Not on file Sexual Orientation Not on file documented as of this encounter Last Filed Vital Signs Vital Sign Reading Time Taken Comments Blood Pressure 111/72 06/02/2025 11:24 AM EST Pulse 77 06/02/2025 11:24 AM EST Temperature 36.6 C (97.9 F) 06/02/2025 11:24 AM EST Respiratory Rate 16 06/02/2025 11:24 AM EST Oxygen Saturation 95% 06/02/2025 11:24 AM EST Inhaled Oxygen Concentration - - Weight 69.5 kg (153 lb 3.5 oz) 06/02/2025 5:17 A M EST Height 162.6 cm (5' 4 ) 05/27/2025 2:26 PM EST Body Mass Index 26.3 05/27/2025 2:26 PM EST documented in this encounter Functional Status * Backup Resp Rate (Set) Answer Date of Assessment Author 14 05/27/2025 6:11 PM EST Interface , Device In * Question Answer Date of Assessment Author Precautions Environmental surveillance 06/02/2025 8:0 0 AM EST Ariane Ordoñez RN * Question Answer Date of Assessment Author Scale Used Melchor 05/14/2025 4:56 AM EST Nettie Archuleta RN * Question Answer Date of Assessment Author Precautions Environmental surveillance 06/02/2025 8:0 0 AM EST Ariane Ordoñez RN * Calculated C-SSRS Risk Score (Lifetime/Recent) Answer Date of Assessment Author No Risk Indicated 06/02/2025 8:00 AM EST Ariane Gonzalez RN * Question Answer Date of Assessment Author 1. Wish to be (Past 1 Month) No 06/02/2025 8:00 AM Ariane Quijano RN 2. Non-Specific Active Suicidal Thoughts (Past 1 Month) No 06/02/2025 8:00 AM Ariane Quijano RN 6. Suicidal Behavior (Lifetime) No 06/02/2025 8:00 AM EST Ariane Ordoñez RN documented as of this encounter Mental Status * Backup Resp Rate (Set) Answer Entry Date Author 14 05/27/2025 6:11 PM EST Interface , Device In * Question Answer Entry Date Author Precautions Environmental surveillance 06/02/2025 8:0 0 AM EST Ariane Ordoñez RN * Question Answer Entry Date Author Scale Used Melchor 05/14/2025 4:56 AM EST Nettie Archuleta RN documented in this encounter Discharge Instructions * Discharge Instructions* [place], PETROGRAPHER - 05/14/2025 5:20 PM EST Discharge Instructions: Medications: - Pain medication: You will be discharged with gabapentin, Robaxin and Tylenol for as needed daily pain management. You will also be prescribed oxycodone for as needed breakthrough severe pain. - Diabetes medication: You will be discharged on 24 units of lantus daily. Please check your blood sugar twice a day and if your blood sugar is less than 110, please give 12 units of lantus daily instead of 23 units. - You may resume your previous medications unless otherwise instructed. Nutrition: - You should consume a regular diet as tolerated, focusing on liquids to keep yourself hydrated. Please refer to diet education for more instructions on what you can or cannot eat. - Total Parenteral Nutrition (TPN): You will be discharged with TPN. [employer] will be managing, teaching and providing supplies to manage the pump and TPN. - PICC line: You will be discharged with a PICC line. The PICC line will be used for TPN. You have been set up with Home Health for weekly PICC line dressing change and lab draws. Activity: - Walking and climbing stairs is ok and encouraged. You should refrain from any strenuous activity/exercise until your follow up appointment. - No lifting anything more than 10 pounds for the next 6 weeks - You may not drive for 48 hours after surgery, or while taking narcotics Potential Issues: - Call the office if you have a fever greater than 101 F - Call the office if you have severe abdominal discomfort, nausea and vomiting, or feeling unwell - Call the [facility] with any questions or concerns during regular business hours (9am-5pm Monday through Monday except holidays). The number is . - If outside regular business hours, please call the after hours number at . Follow Up: - You will follow-up with Vibha Osborn APRN or Alesia Cui APRN in clinic in 1 week on 06/04/25 or 06/05/25 via telehealth. documented in this encounter Medications at Time of Discharge acetaminophen (Tylenol) 500 MG tablet Take 2 tablets by mouth every 8 hours for 15 days. 90 tablet 06/02/2025 5 Alcohol Sheets (Alcoh-Wipe) sheet Use as directed. 100 each 11 04/04/2025 Alcohol Sheets (Alcoh-Wipe) sheet Use as directed. 100 each 11 06/02/2025 amLODIPine (Norvasc) 5 MG tablet Take 1 tablet by mouth daily. 30 tablet 1 04/05/2025 aspirin 81 MG EC tablet Take 1 tablet by mouth daily. atorvastatin (Lipitor) 80 MG tablet Take 1 tablet by mouth daily. Blood Glucose Monitoring Suppl device Check blood sugar, twice daily. Once, one hour after TPN disconnects, and one hour after TPN connection. 1 each 04/04/2025 Blood Glucose Monitoring Suppl device Test two times daily 1 each 06/02/2025 Continue current TPN formula See AVS for most recent TPN formula. 1 Package 06/02/2025 gabapentin (Neurontin) 300 MG capsule Take 1 capsule by mouth 2 times a day. 60 capsule 06/02/2025 6 glucose (Trueplus Glucose) 4 g chewable tablet Chew 4 tablets as needed for low blood sugar. 50 tablet 5 06/02/2025 glucose blood test strip Test two times daily 100 strip 11 04/04/2025 glucose blood test strip Test two times daily 100 strip 11 06/02/2025 insulin glargine (Lantus SoloStar) 100 UNIT/ML injection pen Inject 24 Units under the skin every morning. Please administer 24 units 1 hour after starting TPN. Check your blood sugar twice a day and if your blood sugar is less than 110, then administer 12 units of lantus instead of 24units 30 mL 06/02/2025 6 Lancets misc Test two times daily 100 each 04/04/2025 Lancets misc Test two times daily 100 each 11 06/02/2025 Lidocaine (Lidoderm) 4 % patch Apply 1 patch topically 1 (one) time each day at the same time over 12 hours. Remove & discard patch within 12 hours or as directed by MD. 30 patch 06/02/2025 6 methocarbamol (Robaxin) 500 MG tablet Take 2 tablets by mouth 4 times a day. 90 tablet 06/02/2025 5 naloxone (Narcan) 4 mg/0.1 mL nasal spray 1. Give 1 spray in nostril for no/slow breathing or cannot wake after opioid use 2. Call 911 3. Repeat in other nostril if symptoms continue 1 each 06/02/2025 ondansetron ODT (Zofran-ODT) 4 MG disintegrating tablet Dissolve 1 tablet on the tongue every 6 hours as needed for nausea or vomiting. 20 tablet 06/02/2025 pantoprazole (Protonix) 40 MG EC tablet Take 1 tablet by mouth daily. Do not crush, chew, or split. 60 tablet 06/03/2025 6 pen needle, diabetic 31G X 5 MM misc Use as directed with insulin pen. 100 each 04/04/2025 pen needle, diabetic 31G X 5 MM misc Use as directed with insulin pen. 100 each 06/02/2025 senna-docusate (Lacey-Colace) 8.6-50 MG tablet Take 1 tablet by mouth nightly. 30 tablet 06/02/2025 6 oxyCODONE (Roxicodone) 5 MG immediate release tablet Take 2 tablets by mouth every 4 hours as needed for moderate pain or severe pain for up to 3 days. 36 tablet 06/02/2025 5 documented as of this encounter Miscellaneous Notes * Nursing Note - Rosa M Plaza RN - 06/02/2025 3:23 PM EST AVS discharge instructions printed and reviewed: s/s of infection, when to call doctor,how to reachdoctor, follow up, discharge diet, discharge activity, PICC care and flushing (home health in placefor labs and dressings, home medications to continue, reinforced diabetes education, new medications. Educational attachments given and reviewed: new medications, PICC care, TPN, giving insulin, checking blood glucose. Meds to beds delivered. HH set up. * Consults - Amanda Salinas - 06/02/2025 2:55 PM ESTAssociated Order(s): IP CONSULT TO DIABETIC EDUCATION Adult Diabetes Education Team Note Dot Dale 69 y.o. female CSN: [id number] This is a 69 y.o. female patient was admitted to [facility] with the diagnosis of peripancreatic fluid collection. DM education consult for other- new insulin regimen Labs: A1C >3 months FSBG-PRN FSBG FSBG Other FSBG-AC FSBG-HS FSBG-3a POCBG Ranges: 94-174 Current Diabetes Regimen: Humulin R 2:50>150 q6h Home Monitoring Of Diabetes Home Medications for Diabetes: Lantus: Inject 8 Units under the skin 1 (one) time each day at the same time. Inject 8u one hour after TPN occupational health coordinator Any barriers/issues getting DM/RX Supplies? No Education Diabetic Education Performed with patient and spouse (gabriela). Family voices their daughter is pt primary DM home care administrator, family requested instructions written down for daughter to follow. Pt previously on insulin prior to admission Medication Education instructions given: The use of insulin Importance of taking basal insulin Discussed new insulin regimen per primary team discharge recommendations: check BG 1hr after TPN starts in the morning and inject 12 units of lantus if your blood sugar is less than 110, or administer 24 units if BG 111 or more Diabetic Monitoring Education instructions given: Test Times Target Goals Follow Ups: Provided with educational literature and the jania Yeboah step by step insulin pen use and current insulin dose cheat sheet Diabetes Education Team Recommendations: family endorses they will share instructions with daughter. Pt needing insulin pens, pen needles, glucometer strips, and glucometer lancets prescriptions at discharge. [place] with [facility] team alerted to DM education completion Education Time 15 minutes Amanda Salinas * Edilia Stockton - Rosa M Plaza RN - 06/02/2025 2:32 PM EST Images from the original note were not included. [id number] Discharge Instructions: Giving Yourself Total Parenteral Nutrition (TPN) You are going home on total parenteral nutrition (TPN). TPN is a way for you to get nutrition through a tube (catheter) in your vein. The TPN solution has the vitamins, minerals, and other nutrition you normally get by eating food. Your health care provider will decide if you can also eat food while you are on TPN. In the hospital, you learned how to take care of your catheter and how to infuse your TPN. At home,you will need to do these tasks: ? Use the infusion pump that sends the TPN into your veins. ? Start and stop your TPN infusion. ? Flush the catheter. ? Prevent problems or fix any problems that occur. ? Care for your catheter. ? Care for your pump. You will work closely with a nurse until you feel comfortable taking care of your catheter and giving yourself TPN. The information below gives you a general overview of TPN. It has reminders and tips about what you?ll need to do each day. Ask your provider for more information about caring for your catheter, using sterile technique, adding medicines to your solution, and flushing your catheter. Other instruction sheets are available to guide you. Preparing your work area ? Choose a work area away from household traffic. Keep pets and children out of the room. Don?t work in the bathroom. It has too many germs. ? Collect your supplies. You were shown at the hospital which supplies you need. The nurse will show you how to organize what you need each day. ? Clean your work area like this: o Clean washable surfaces with soap and water. Dry the surface with a clean paper towel. o Wipe dust off surfaces that are not washable, such as wood. Spread a clean cloth or paper towels over the surface. o If you need to cough or sneeze, move away from the clean surface. Washing your hands Wash your hands before touching any of your supplies. To do this: ? Turn on the water. ? Wet your hands and wrists. ? Squirt antibacterial soap from a pump dispenser into your hands and work up a good lather. ? Scrub your hands thoroughly. Do this for at least 2 minutes. ? Rinse your hands with your fingers pointing downward. Allow the water to run down from your wrists to your fingertips. This way, the dirty water flows downward. ? Dry your hands with a paper towel. Turn off the faucet with this towel. ? When you have washed your hands, don?t touch anything except your catheter and supplies. You mustwash your hands again if you touch anything else, such as furniture or your clothes. Caring for your solution ? Keep your solution refrigerated when not in use. ? Check the label on the bag to make sure it matches your prescription exactly. Don?t use the bag if it does not match the prescription. Contact your supply company or your TPN nurse. ? Check the expiration date. Don?t use the solution if it is past the expiration date. Get a new bag from the refrigerator. ? Check the bag for problems. These include leaks, cloudiness, or things floating in it. Don?t use the bag if you see any of these things. Get a new bag from the refrigerator. ? Warm the TPN solution by leaving it at room temperature for 1 hour before use. Never put the bag in the microwave. ? Add any additional medicines or vitamins to the bag before you infuse the solution. Follow the nurse's directions for starting and ending the TPN, including how to discard used supplies. Follow-up care ? You will work closely with a home health nurse or TPN nurse. ? Follow up with your health care provider, or as advised. When to contact your doctor Contact your health care provider or get medical care right away if you have any of these: ? Excessive thirst ? Upset stomach (nausea) or vomiting ? Weakness or shakiness ? Fainting or feeling like you may faint ? Sweating ? Headache ? Belly (abdominal) pain ? Sudden weight loss or gain (more than 2 pounds in 24 hours) ? Fever above 100.4??F (38??C) or higher, or as directed by your provider ? Shaking chills ? Redness, swelling, or warmth at your insertion site ? Fluid or pus coming from your insertion site Call 911 Call 911 if any of the following occur: ? Shortness of breath ? Heart palpitations ? Chest pain Last Reviewed Date: 2024 00:00:00 ?? [employer]. All rights reserved. This information is not intended as a substitute for professional medical care. Always follow your healthcare professional's instructions. * Amanda Kennedy - 06/02/2025 2:24 PM EST Images from the original note were not included. [address] Insulin Pen Injection with Clear Insulin [facility] Last Reviewed Date: 2025 00:00:00 ?? [employer]. All rights reserved. This information is not intended as a substitute for professional medical care. Always follow your healthcare professional's instructions. * Rosa M Dorsey RN - 06/02/2025 1:30 PM EST Images from the original note were not included. 299 Protonix (Pantoprazole) (UK) Protonix decreases stomach acid. You will be on Protonix in the hospital but may be switched to a different medication when you go home. ? Take Protonix exactly as your doctor ordered. ? Swallow Protonix whole. Do not split, crush, or chew the tablet. ? Protonix may be taken with or without food. It may be taken at the same time as antacids. ? It is very important that you do not miss any doses of your Protonix. But if you do: o Take the missed dose if it has been less than 12 hours hours from the time you were supposed to take your medicine. o If your Protonix is more than 12 hours past due, skip that dose and continue with the next dose. o Do not take 2 doses at the same time unless your special services coordinator or doctor tells you to. ? There are many medicines that can interfere with your Protonix. Always check with your transplantcoordinator or doctor before taking any other medicine, including nvrk-aeg-rbbxqgr medicines (for example aspirin), vitamins, herbals, or vaccines. 40 mg Your tablets may not look exactly like this. ? Do not keep Protonix in your bathroom. Keep your Protonix at room temperature, away from heat, moisture, and direct light. ? Keep all medicine out of the reach of children. Possible Side Effects ? Blistering, peeling, or loosening of skin ? Skin rash, hives, or itching ? Difficulty breathing ? Difficulty swallowing ? Swelling of face, tongue, or lips ? Bloating and gas ? Increased or frequent urination ? Increased thirst Please call your special services coordinator, pharmacist, or doctor if you have any questions about thismedicine. * [facility] - Rosa M Plaza RN - 06/02/2025 1:30 PM EST Images from the original note were not included. [id number] Methocarbamol WHY is this medicine prescribed? Methocarbamol is used with rest, physical therapy, and other measures to relax muscles and relieve pain and discomfort caused by strains, sprains, and other muscle injuries. Methocarbamol is in a class of medications called muscle relaxants. It works by slowing activity in the nervous system to allow the body to relax HOW should this medicine be used? Methocarbamol comes as a tablet to take by mouth. It usually is taken four times a day at first, then it may be changed to three to six times a day. Follow the directions on your prescription label carefully, and ask your doctor or pharmacist to explain any part you do not understand. Take methocarbamol exactly as directed. Do not take more or less of it or take it more often than prescribed by your doctor. Are there OTHER USES for this medicine? This medication may be prescribed for other uses. Ask your doctor or pharmacist for more information. What SPECIAL PRECAUTIONS should I follow? Before taking methocarbamol, ? tell your doctor and pharmacist if you are allergic to methocarbamol, any other medications or any of the ingredients in methocarbamol tablets. Ask your doctor or pharmacist for a list of the ingredients. ? tell your doctor and pharmacist what prescription and nonprescription medications, vitamins, nutritional supplements, and herbal products you are taking or plan to take while taking methocarbamol. Your doctor may need to change the doses of your medications or monitor you carefully for side effects. ? tell your doctor if you are , plan to become , or are breast- feeding. If you become while taking methocarbamol, call your doctor. ? talk to your doctor about the risks and benefits of taking methocarbamol if you are 65 years of age or older. Older adults should not usually take methocarbamol because it is not as safe or as effective as other medications that can be used to treat the same condition. ? you should know that this medication may make you drowsy. Do not drive a car or operate machineryuntil you know how methocarbamol affects you. ? talk to your doctor about the safe use of alcohol during your treatment with this medication. Alcohol can make the side effects of methocarbamol worse. What SPECIAL DIETARY instructions should I follow? Unless your doctor tells you otherwise, continue your normal diet. What should I do IF I FORGET to take a dose? Take the missed dose as soon as you remember it. However, if it is almost time for the next dose, skip the missed dose and continue your regular dosing schedule. Do not take a double dose to make up for a missed one. What SIDE EFFECTS can this medicine cause? If you experience either of the following symptoms, call your doctor immediately: ? rash ? itching Methocarbamol may cause other side effects. Call your doctor if you have any unusual problems whileyou are taking this medication. If you experience a serious side effect, you or your doctor may send a report to the Food and Drug Administration's (FDA) MedWatch Adverse Event Reporting program online (https://www.fda.gov/Safety/MedWatch) or by phone ( ). What should I know about STORAGE and DISPOSAL of this medication? Keep this medication in the container it came in, tightly closed, and out of reach of children. Store it at room temperature and away from excess heat and moisture (not in the bathroom). Dispose of unneeded medications in a way so that pets, children, and other people cannot take them.Do not flush this medication down the toilet. Use a medicine take-back program. Talk to your pharmacist about take-back programs in your community. Visit the FDA's Safe Disposal of Medicines website h ttps://goo.gl/c4Rm4p for more information. Keep all medication out of sight and reach of children as many containers are not child-resistant. Always lock safety caps. Place the medication in a safe location - one that is up and away and out of their sight and reach. https://www.upandaway.org What should I do in case of OVERDOSE? In case of overdose, call the poison control helpline at . Information is also available online at https://www.poisonhelp.org/help. If the victim has collapsed, had a seizure, has trouble breathing, or can't be awakened, immediately call emergency services at 173. What OTHER INFORMATION should I know? Keep all appointments with your doctor. Do not let anyone else take your medication. Ask your pharmacist any questions you have about refilling your prescription. Keep a written list of all of the prescription and nonprescription (whia-zgc-[id number]) medicines, vitamins, minerals, and dietary supplements you are taking. Bring this list with you each time you visit a doctor or if you are admitted to the hospital. You should carry the list with you in case of deonte rgencies. Brand Name(s): ? Robaxin?? also available generically This report on medications is for your information only, and is not considered individual patient advice. Because of the changing nature of drug information, please consult your physician or pharmacist about specific clinical use. The [employer] represents that the information provided hereunder was formulated with a reasonable standard of care, and in conformity with professional standards in the field. The [place] makes no representations or warranties, express or implied, including, but not limited to, any implied warranty of merchantability and/or fitness for a particular purpose, with respect to such information and specifically disclaims all such warranties. Users are advised that decisions regarding drug therapy are complex medical decisions requiring the independent, informed decision of an appropriate health district manager primary care sales, and the information is provided for informational purposes only. The entire monograph for a drug should be reviewed for a thorough understanding of the drug's actions, uses and side effects. The [employer] does not endorse or recommend the use of any drug.The information is not a substitute for medical care. AHFS?? Patient Medication Information?. ?? Copyright, 2023. The [employer]??, [address], [address], [place], [place]. All Rights Reserved. Duplication for commercial use must be authorized by [facility]. Selected Revisions: February 07, 2017. AHFS?? Patient Medication Information?. ?? Copyright, 2024 * [facility] - Rosa M Plaza RN - 06/02/2025 1:30 PM EST Images from the original note were not included. [id number] Using an Injection Pen Your health care provider has prescribed a medicine that you can give yourself using an injection pen. One medicine that's often given with an injection pen is insulin. Injection pens are popular because they are easy to use. Also, many people feel more comfortable using something that looks like apen instead of a syringe. Some kinds of pens can be thrown away (disposable). Others are reusable (nondisposable). Disposable pens come already filled with a set amount of medicine. Once you inject the medicine, you throw the pen away. With nondisposable pens, you replace the medicine cooper (cartridge) when it'sempty. Both types of pens use a pen needle. This is screwed onto the tip of the pen before you use it. Penneedles come in different lengths and thicknesses. Always throw away needles right after you use them. Never reuse or share needles. ? Standard pen needle. This needle often has a removable outer and inner cover. Both covers need yrn removed before the injection. ? Safety pen needle. This needle has a removable outer cover. The inner cover is a fixed safety shield that's not removed. Instead, as you press the injector against the injection site, the shield ispushed back to expose the needle. When you get a new box of needles, always check to see what kind of needle it is. It might be different from what you are used to. Talk with your health care provider if you are not sure how to use the needles. Home care Each pen will come with its own special instructions. Read the directions that came with your pen. Discuss the instructions with your care team if you have any questions. In general, follow these steps when using the injection pen. First, get these supplies together: ? Alcohol swabs ? Injector pen ? Cartridge, if the pen is nondisposable ? Special container for the used needles and disposable pens (sharps container). You can buy a sharps container at a pharmacy or medical supply store. You can also use an empty laundry detergent bottle, or any other puncture-proof container and lid. Then get the pen ready: ? Wash your hands. ? Remove the pen cap. ? Check the medicine to make sure it's the type that your health care provider prescribed. Make sure that it has not and is not discolored, frosted, or lumpy. If the medicine doesn't look right to you, don?t use it. Get a new cartridge or a new disposable pen. Never share needles, injectionpens, or medicine cartridges. ? Attach a needle to your pen. Read the directions that came with your pen. They contain steps for attaching a needle. If you?re using a nondisposable pen, don?t leave the needle attached to the pen between shots. ? Some medicines need to be mixed. Mix the medicine by rolling the pen between the palms of your hands about 20 times. You can also tip the pen back and forth. Prime your pen and make sure that it's working by doing a test shot into the air. Do this before you actually inject the medicine. Then set the dose. ? Dial the pen to deliver 2 or 3 units of medicine. ? Hold the pen like a pencil, with the needle pointing up. ? Tap the barrel of the pen. This will make sure any air bubbles in the cartridge float to the top of the cartridge. ? Push down firmly on the pen's injector button. This will shoot medicine into the air. You should see a couple of drops of medicine come out of the needle. If nothing comes out, try doing another air shot. If medicine still doesn't come out after a second try, your pen may be low on medicine. Or the needle may not be connected correctly. Read the troubleshooting tips in the directions that came with your pen. ? Set your dose. Dial the pen to deliver the amount of medicine you need to take. As you turn the dial, you should hear a clicking sound. Your pen is now ready to use. ? Choose an injection site. The belly (abdomen), upper arms, thighs, and buttocks are the most common sites to use. Stay away from sites that are close to a mole or scar, or that are closer than 2 inches to your belly button. Ask your provider if you aren?t sure where to inject. Don't inject in theexact same place each time. This could cause skin or tissue problems. Inject at a slightly different place each time, even if it's on the same body part. ? Make sure the site is clean. Clean it with an alcohol swab. Let it dry. ? Pinch up a fold of skin around the site you have selected. Hold it firmly with one hand. ? Hold the injection pen like a pencil in your other hand. Inject your medicine Insert the needle into your pinched-up skin. The needle should be straight up and down. Thin adultsor children may need to inject with the needle at an angle slightly to the left or right. ? Make sure the needle gets all the way into the fatty tissue below the skin. ? Push the pen injection button. Unless you take a very small dose, the injection should take a couple of seconds. You may have to hold the pen in place for 5 to 10 seconds after injecting. Carefullyfollow your health care provider's instructions. ? Let go of the skin and remove the needle from your skin. After the injection ? For a nondisposable pen, remove the needle by unscrewing it. ? Put any used needles and disposable pens in the sharps container. Make sure that the needles point down. Never put your fingers into the container. ? When the sharps container is full, check with your local health department, pharmacy, health careprovider's office, health care facility, or trash service to see what disposal methods are available in your area. Follow-up care Follow up with your health care provider as advised. When to get medical advice Contact your health care provider right away if any of these occur: ? Problems that keep you from giving your injection ? Bleeding at the injection site for more than 10 minutes ? Pain at the injection site that does not go away ? You inject the medicine in the wrong area ? You inject too much of the medicine ? Rash at the injection site ? Fever of 100.4??F (38??C) or higher, or as advised by your provider ? Redness, warmth, swelling, or drainage at the injection site ? Signs of allergic reaction, such as trouble breathing, hives, itching, or a rash Last Reviewed Date: 2024 00:00:00 ?? [employer]. All rights reserved. This information is not intended as a substitute for professional medical care. Always follow your healthcare professional's instructions. * Rosa M Dorsey RN - 06/02/2025 1:29 PM EST Images from the original note were not included. [id number] Giving Yourself an Insulin Shot [id number] Last Reviewed Date: 2021 00:00:00 ?? [employer]. All rights reserved. This information is not intended as a substitute for professional medical care. Always follow your healthcare professional's instructions. * Rosa M Dorsey RN - 06/02/2025 1:29 PM EST Images from the original note were not included. 76638 Treating Low Blood Sugar (Hypoglycemia) Sbkd-pf-[id number]: Last Reviewed Date: 2024 00:00:00 ?? [employer]. All rights reserved. This information is not intended as a substitute for professional medical care. Always follow your healthcare professional's instructions. * Edilia Stockton - Rosa M Plaza RN - 06/02/2025 1:29 PM EST Images from the original note were not included. [id number] Checking Your Blood Sugar [id number] Last Reviewed Date: 2023 00:00:00 ?? [id number] [employer]. All rights reserved. This information is not intended as a substitute for professional medical care. Always follow your healthcare professional's instructions. ANA * Edilia Stockton - Rosa M Plaza RN - 06/02/2025 1:29 PM EST Images from the original note were not included. [id number] How to Check Your Blood Sugar Keeping track of how much sugar (glucose) is in your blood is an important part of self-care when you have diabetes. This is also called self-monitoring of blood glucose (SMBG). To make sure your glucose and insulin are in balance, check your blood sugar as instructed by your healthcare provider. You may need to check your blood glucose levels at certain times every day. Another way to keep track of your blood glucose is using a continuous glucose monitor (CGM). This small device uses tiny sensors attached to your skin. It is always recording your glucose levels in real time. You still may need to do finger sticks from time to time. This is to be sure the GCM is accurate. Think about teaching a close family member or friend how to test and record your blood sugar. This extra support may come in handy if you are ill. What you need To check your blood sugar, make sure you have: ? A small pricking needle (lancing device) ? Test strips ? A glucose meter with test strips that match it ? A way to keep track of your readings (smartphone, glucose meter, notebook, chart, or logbook) Using a blood glucose meter You can check your blood sugar at home, at work, and anywhere else. Your diabetes team will help you choose a blood glucose meter. A meter measures the amount of glucose in a tiny drop of blood. You?ll use a device called a lancet to draw a drop of blood. Put the strip in the meter first. Then touch the test strip to the drop of blood. The meter then gives you a number (reading). This is your blood sugar level. Aim for your target range Your blood sugar should be in your target range--not too high and not too low. A target range is where your blood sugar level is healthiest. Staying in this range as much as possible will help lower your risk for health problems (complications). Your diabetes team will help you figure out the best target range for you. That range depends on many things. They include: ? Your age ? Other health problems you may have ? How well your diabetes is controlled ? How long you've had diabetes In general, target ranges are: ? Control of blood glucose (A1C test, also called hemoglobin A1C). The goal for most people with diabetes is 7.0% or lower. The A1C is a blood test at the lab. It measures your blood sugar levels over the past 3 months. It is an important tool in managing your diabetes. ? Before a meal (preprandial glucose). The target range is between 80 and 130 mg/dL. ? 1 to 2 hours after a meal (postprandial glucose). The range is less than 180 mg/dL. ? At bedtime. The range should generally be between 90 and 150 mg/dL. Track your readings Use a smartphone, glucose meter, notebook, chart, or logbook to keep track of your readings. Recordthe date, time, and your blood sugar level numbers. This helps you see patterns. For instance, if you have high blood sugar after eating certain foods. Take your log information along when you see your healthcare provider. Also keep a list of any questions for your provider. They may also have an electronic medical record that offers helpful tools and tracking options. Your blood glucose levels are hoff. They help your provider decide if they need to make changes to your management plan. To check your blood sugar, follow the steps below. Step 1. Get ready ? Wash your hands for at least 20 seconds with soap and clean, running water. ? Follow all of the instructions that came with your glucose meter. Check that your test strips were designed to be used with your meter and that they haven't . Step 2. Draw a drop of blood ? Prick the side of your finger at the tip with the lancet. Squeeze gently until you get a drop of blood. Squeezing too hard can cause an inaccurate reading. ? Put the lancet in a special sharps container. Ask your healthcare team where you can buy one or what you can use to throw away any sharps. ? If you can't get enough blood, hold your hand at your side and gently shake it. If this is a common problem for you, ask your provider if you can use other parts of your body to get the blood from. Step 3. Place the drop on a strip ? Wait for the meter to show a message or symbol that it's time to test. ? Touch the test strip to the drop of blood. ? Follow the instructions included with the meter. Step 4. Read and record your results ? Wait for your meter to show the result. ? If you see an error message, recheck using a fresh strip and a fresh drop of blood. Also recheck if the glucose numbers aren't what you expect--too low without symptoms, or too high for no reason. ? Record the results using the method you've chosen. Bring your record to your next appointment. Last Reviewed Date: 2023 00:00:00 ?? [id number] [employer]. All rights reserved. This information is not intended as a substitute for professional medical care. Always follow your healthcare professional's instructions. * Edilia OnIR - Rosa M Plaza RN - 06/02/2025 1:29 PM EST Images from the original note were not included. [id number] Low Blood Sugar (Hypoglycemia) Low blood sugar (hypoglycemia) means you don?t have enough sugar (glucose) in your bloodstream to help your body work. This may be a level of sugar lower than 70 mg/dL. But talk with your healthcare provider about your own target range. Ask what level is too low for you. Diabetes doesn?t cause low blood sugar. But some treatments for diabetes may raise the risk for it.These include oral medicines or insulin. Skipping or delaying meals can also increase your risk forhypoglycemia. In severe cases, low blood sugar may make you pass out or have a seizure. This is a medical emergency. So always treat low blood sugar right away as noted below. This is to prevent moreserious problems. Safety note Always carry a source of fast-acting sugar and a snack in case you have low blood sugar. Examples include: ? 4 glucose tablets ? 1 tube of glucose gel ? 1 packet of sugar or honey ? 2 tablespoons of raisins Symptoms of low blood sugar If you have low blood sugar, you may have 1 or more of these symptoms: ? Shakiness ? Dizziness ? Cold, clammy skin or sweating ? Hunger ? Headache ? Nervous feeling ? A hard, fast heartbeat ? Weakness ? Confusion or irritability ? Trouble seeing or talking ? Having nightmares or waking up confused or sweating ? Numbness or tingling in the lips or tongue What to do If you think you have low blood sugar: 1. Check your sugar. First, check your blood sugar. If it's too low (out of your target range), eator drink 15 to 20 grams of fast-acting sugar. This may be 3 to 4 glucose tablets, or 4 ounces (halfa cup) of fruit juice or regular (not diet) soda, or 1 tablespoon of honey. Don?t take more than this. If you do, your blood sugar may go too high. 2. Don?t have protein. Don't eat or drink things high in protein to treat low blood sugar. This includes milk, nuts, and meat. Protein may increase your insulin response. It may lower your blood sugar even more. 3. Check again. Wait 15 minutes. Then recheck your blood sugar if you can. If your blood sugar is still too low, repeat the steps above until your blood sugar is back to normal. 4. Eat a snack. When your blood sugar is back at target range, eat a snack or meal. 5. Get help if needed. If you still don?t feel well and your blood sugar is still low, have someonedrive you to the emergency room. Preventing low blood sugar Things you can do include the below: ? If your diabetes needs a strict treatment plan, eat meals and snacks at the same times each day. Don?t skip meals. If you have trouble paying for food, talk with your healthcare team for help. ? If your treatment plan lets you change when and what you eat, learn how to change the time and dose of your rapid-acting insulin to match. ? Ask your healthcare provider if it's safe to drink alcohol. But never drink on an empty stomach. Alcohol may keep you from feeling the first symptoms of low blood sugar. ? Take your medicine at the prescribed times. ? Always carry a source of fast-acting sugar and a snack when you?re away from home. If you have had repeated low blood sugar episodes: ? You may not notice the symptoms of low blood sugar until it gets to a dangerous level. Work with your provider for the best ways to safely manage your blood sugar. ? Ask your healthcare provider if you can take less or different medicine. Many newer types of diabetes medicines have less risk of low blood sugar. ? Talk with your provider about a continuous glucose monitor. This is a device that tracks your blood sugar. ? Ask your provider if you should be prescribed a medicine called glucagon. Glucagon is a hormone that quickly raises blood sugar. It can reverse serious symptoms. It is available as an injection or as a powder that's put into the nose. Ask your healthcare provider which type of glucagon is best for you and how to use it. Other safety tips Make sure to: ? Carry a medical ID card or wear a medical alert bracelet or necklace. It should say that you havediabetes. It should say what to do if you pass out or have a seizure. ? Teach your family, friends, and coworkers the signs of low blood sugar. Tell them what to do if your blood sugar falls very low and you can?t treat yourself. ? Keep a glucagon emergency kit handy. Show your family, friends, and coworkers how and when to useit. Check it often. Replace the glucagon before it expires. ? Talk with your healthcare team about other things you can do to prevent low blood sugar. These include using new ways of continuous glucose tracking. Important If you have unexplained low blood sugar or have it several times, call your healthcare provider. Last Reviewed Date: 2023 00:00:00 ?? [id number] [employer]. All rights reserved. This information is not intended as a substitute for professional medical care. Always follow your healthcare professional's instructions. ANA * [facility] - 06/02/2025 1:28 PM EST Images from the original note were not included. [id number] Senna WHY is this medicine prescribed? Senna is used on a short-term basis to treat constipation. It also is used to empty the bowels before surgery and certain medical procedures. Senna is in a class of medications called stimulant laxatives. It works by increasing activity of the intestines to cause a bowel movement. HOW should this medicine be used? Senna comes as a liquid, powder, granules, chewable pieces, and tablets to take by mouth. It is maybe taken once or twice daily. Senna normally causes a bowel movement within 6 to 12 hours, so it may be taken at bedtime to produce a bowel movement the next day. Do not take senna for more than 1 week without talking to your doctor. Follow the directions on your package or prescription label chava dooley, and ask your doctor or pharmacist to explain any part you do not understand. Take senna exactly as directed. Frequent or continued use of senna may make you dependent on laxatives and cause yourbowels to lose their normal activity. If you do not have a regular bowel movement after taking senna, do not take any more medication and talk to your doctor. If you are taking certain senna products (Ex-Lax?? regular ormaximum strength tablets or Perdiem Overnight Relief), swallow the pills whole with a glass of water; do not split, chew, or crush them. Are there OTHER USES for this medicine? This medication may be prescribed for other uses; ask your doctor or pharmacist for more information. What SPECIAL PRECAUTIONS should I follow? Before taking senna, ? tell your doctor and pharmacist if you are allergic to senna, any other medications, or any of the ingredients in these senna products. Ask your pharmacist for a list of the ingredients. ? tell your doctor and pharmacist what prescription and nonprescription medications, vitamins, nutritional supplements, and herbal products you are taking or plan to take while taking senna. Your doctor may need to change the doses of your medications or monitor you carefully for side effects.. ? take certain senna products (Ex-Lax??, Perdiem Overnight Relief) at least 2 or more hours before or after taking other medications by mouth; some senna products may affect how other medications work. ? the following nonprescription product may interact with senna: mineral oil. Be sure to let your doctor and pharmacist know that you are taking this medication before you start taking senna. Do not start this medication while taking senna without discussing with your healthcare provider. ? tell your doctor if you have stomach pain, nausea, vomiting, or a sudden change in bowel movements lasting more than 2 weeks. ? tell your doctor if you are , plan to become , or are breast- feeding. If you become while taking senna, call your doctor. ? talk to your doctor about the risks and benefits of taking senna if you are 65 years of age or older. Older adults should not usually take senna products over a long period of time because they arenot as safe as other medications that can be used to treat the same condition. What SPECIAL DIETARY instructions should I follow? A regular diet and exercise program is important for regular bowel function. Eat a high-fiber diet and drink plenty of liquids (eight glasses) each day as recommended by your doctor. What should I do IF I FORGET to take a dose? This medication usually is taken as needed. If your doctor has told you to take senna regularly, take the missed dose as soon as you remember it. However, if it is almost time for the next dose, skipthe missed dose and continue your regular dosing schedule. Do not take a double dose to make up fora missed one. What SIDE EFFECTS can this medicine cause? Some side effects can be serious. If you experience this symptom, stop taking senna and call your doctor immediately: ? rectal bleeding Senna may cause other side effects. Call your doctor if you have any unusual problems while taking this medication. If you experience a serious side effect, you or your doctor may send a report to the Food and Drug Administration's (FDA) MedWatch Adverse Event Reporting program online (https://www.fda.gov/Safety/MedWatch) or by phone ( ). What should I know about STORAGE and DISPOSAL of this medication? Keep this medication in the container it came in, tightly closed, and out of reach of children. Store it at room temperature and away from excess heat and moisture (not in the bathroom). Keep all medication out of sight and reach of children as many containers are not child-resistant. Always lock safety caps. Place the medication in a safe location - one that is up and away and out of their sight and reach. https://www.upandaway.org Dispose of unneeded medications in a way so that pets, children, and other people cannot take them.Do not flush this medication down the toilet. Use a medicine take-back program. Talk to your pharmacist about take-back programs in your community. Visit the FDA's Safe Disposal of Medicines website h ttps://goo.gl/c4Rm4p for more information. What should I do in case of OVERDOSE? In case of overdose, call the poison control helpline at . Information is also available online at https://www.poisonhelp.org/help. If the victim has collapsed, had a seizure, has trouble breathing, or can't be awakened, immediately call emergency services at 911. What OTHER INFORMATION should I know? Ask your pharmacist any questions you have about senna. Keep a written list of all of the prescription and nonprescription (elfi-xzb-bqnnyqz) medicines, vitamins, minerals, and dietary supplements you are taking. Bring this list with you each time you visit a doctor or if you are admitted to the hospital. You should carry the list with you in case of deonte rgencies. Brand Name(s): ? Black Draught?? ? Ex-Lax?? ? Lopez's Castoria?? ? Nature's Remedy?? ? Perdiem Overnight Relief?? ? Senexon?? ? Senna X-Prep?? ? Senokot?? ? Correctol 50 Plus?? (as a combination product containing Docusate, Sennosides) ? Ex-Lax Gentle Strength?? (as a combination product containing Docusate, Sennosides) ? Gentlax S?? (as a combination product containing Docusate, Sennosides) ? Lacey-Colace?? (as a combination product containing Docusate, Sennosides) ? Senokot S?? (as a combination product containing Docusate, Sennosides) also available generically sennosides This report on medications is for your information only, and is not considered individual patient advice. Because of the changing nature of drug information, please consult your physician or pharmacist about specific clinical use. The [place] represents that the information provided hereunder was formulated with a reasonable standard of care, and in conformity with professional standards in the field. The [place] makes no representations or warranties, express or implied, including, but not limited to, any implied warranty of merchantability and/or fitness for a particular purpose, with respect to such information and specifically disclaims all such warranties. Users are advised that decisions regarding drug therapy are complex medical decisions requiring the independent, informed decision of an appropriate health district manager primary care sales, and the information is provided for informational purposes only. The entire monograph for a drug should be reviewed for a thorough understanding of the drug's actions, uses and side effects. The [place] does not endorse or recommend the use of any drug.The information is not a substitute for medical care. AHFS?? Patient Medication Information?. ?? Copyright, 2023. The [employer]??, [address], [address], [place], [place]. All Rights Reserved. Duplication for commercial use must be authorized by [facility]. Selected Revisions: December 14, 2023. AHFS?? Patient Medication Information?. ?? Copyright, 2024 * [facility] - Rosa M Plaza RN - 06/02/2025 1:28 PM EST Images from the original note were not included. [id number] Naloxone Nasal [place] WHY is this medicine prescribed? Prescription and nonprescription (over the counter) naloxone nasal spray is used along with emergency medical treatment to reverse the life-threatening effects of a known or suspected opiate (narcotic) overdose in adults and children. Naloxone nasal spray is in a class of medications called opiate antagonists. It works by blocking the effects of opiates to relieve dangerous symptoms caused by high levels of opiates in the blood. HOW should this medicine be used? Naloxone comes as a solution (liquid) to spray into the nose. It is usually given as needed to treat opiate overdoses. Each naloxone nasal spray contains a single dose of naloxone and should be used only once. You will probably be unable to treat yourself if you experience an opiate overdose. You should makesure that your family members, caregivers, or the people who spend time with you know how to tell if you are experiencing an overdose, how to use naloxone nasal spray, and what to do until emergency m edical help arrives. Your doctor or pharmacist will show you and your family members how to use themedication. You and anyone who may need to give the medication should read the instructions that come with the nasal spray. Ask your pharmacist for the instructions or visit the guest service team leader's website to get the instructions. You should keep the nasal spray available at all times in case you experience an opioid overdose. Be aware of the expiration date on your device and replace the spray when this date passes. Naloxone nasal spray may not reverse the effects of certain opiates such as buprenorphine (Belbuca,Buprenex, Butrans, Sublocade) and pentazocine (Talwin) and may require additional naloxone doses with a new nasal spray each time. Symptoms of an opioid overdose include excessive sleepiness, not awakening when spoken to in a loudvoice or when the middle of your chest is rubbed firmly, shallow or stopped breathing, or small pupils (black circles in the center of the eyes). If someone sees that you are experiencing these symptoms, he or she should give you your first naloxone dose and then call 911 immediately. After receiving the naloxone nasal spray, a person should stay with you and watch you closely until emergency medical help arrives. To give the inhaler, follow these steps: ? Lay the person on their back to give the medication. ? Remove the naloxone nasal spray from the box. Peel back the tab to open the spray. ? Do not prime the nasal spray before using it. ? Hold the naloxone nasal spray with your thumb on the bottom of the plunger and your first and middle fingers on either side of the nozzle. ? Gently insert the tip of the nozzle into one nostril, until your fingers on either side of the nozzle are against the bottom of the person's nose. Provide support to the back of the person's neck with your hand to allow the head to tilt back. ? Press the plunger firmly to release the medication. ? Remove the nasal spray nozzle from the nostril after giving the medication. ? Turn the person on their side (recovery position) and call for emergency medical assistance immediately after giving the first naloxone dose. ? If the person does not respond by waking up, to voice or touch, or breathing normally or respondsand then relapses, give another dose. If needed, give additional doses (repeating steps 2 through 7) every 2 to 3 minutes in alternate nostrils with a new nasal spray each time until emergency medical assistance arrives. ? Put the used nasal spray(s) back in the container and out of reach of children until you can safely dispose of it. Ask your pharmacist or doctor for a copy of the guest service team leader's information for the patient. Are there OTHER USES for this medicine? This medication may be prescribed for other uses; ask your doctor or pharmacist for more information. What SPECIAL PRECAUTIONS should I follow? Before receiving naloxone nasal spray, ? tell your doctor and pharmacist if you are allergic to naloxone, any other medications, or any ofthe ingredients in naloxone nasal spray. Ask your pharmacist for a list of the ingredients. ? tell your doctor and pharmacist what other prescription and nonprescription medications, vitamins, nutritional supplements, and herbal products you are taking or plan to take. Be sure to tell your doctor about all the medications you are taking. ? tell your doctor if you have or have ever had heart disease. ? tell your doctor if you are , plan to become , or are . If you receive naloxone nasal spray during , your doctor may need to monitor your unborn baby carefullyafter you receive the medication. What SIDE EFFECTS can this medicine cause? Some side effects can be serious. If you experience any of these symptoms, get emergency medical treatment: ? signs of opiate withdrawal such as body aches, diarrhea, fast, pounding, or irregular heartbeat, fever, runny nose, sneezing, sweating, yawning, nausea, vomiting, nervousness, restlessness, irritability, shivering, trembling, stomach cramps, weakness, and the appearance of hair on the skin standing on end ? seizures ? loss of consciousness ? crying more than usual (in babies treated with naloxone nasal spray) ? stronger than normal reflexes (in babies treated with naloxone nasal spray) Naloxone nasal spray may cause other side effects. Call your doctor if you have any unusual problems while receiving this medication. If you experience a serious side effect, you or your doctor may send a report to the Food and Drug Administration's (FDA) MedWatch Adverse Event Reporting program online (https://www.fda.gov/Safety/MedWatch) or by phone ( ). What should I know about STORAGE and DISPOSAL of this medication? Keep this medication in the container it came in, tightly closed, and out of reach of children. Store it at room temperature and away from light, excess heat and moisture (not in the bathroom). Do not freeze the naloxone nasal spray. Keep all medication out of sight and reach of children as many containers are not child-resistant. Always lock safety caps. Place the medication in a safe location - one that is up and away and out of their sight and reach. https://www.[employer]and[employer].org Dispose of unneeded medications in a way so that pets, children, and other people cannot take them.Do not flush this medication down the toilet. Use a medicine take-back program. Talk to your pharmacist about take-back programs in your community. Visit the FDA's Safe Disposal of Medicines website h ttps://goo.gl/c4Rm4p for more information. What OTHER INFORMATION should I know? Keep a written list of all of the prescription and nonprescription (kizt-fiy-ktzppto) medicines, vitamins, minerals, and dietary supplements you are taking. Bring this list with you each time you visit a doctor or if you are admitted to the hospital. You should carry the list with you in case of deonte rgencies. Brand Name(s): ? Kloxxado?? ? Narcan?? ? Rezenopy?? also available generically This report on medications is for your information only, and is not considered individual patient advice. Because of the changing nature of drug information, please consult your physician or pharmacist about specific clinical use. The [place] [employer] represents that the information provided hereunder was formulated with a reasonable standard of care, and in conformity with professional standards in the field. The [place] [employer] makes no representations or warranties, express or implied, including, but not limited to, any implied warranty of merchantability and/or fitness for a particular purpose, with respect to such information and specifically disclaims all such warranties. Users are advised that decisions regarding drug therapy are complex medical decisions requiring the independent, informed decision of an appropriate health district manager primary care sales, and the information is provided for informational purposes only. The entire monograph for a drug should be reviewed for a thorough understanding of the drug's actions, uses and side effects. The [place] [employer] does not endorse or recommend the use of any drug.The information is not a substitute for medical care. AHFS?? Patient Medication Information?. ?? Copyright, 2023. The [place]??, [address], [address], [place], [place]. All Rights Reserved. Duplication for commercial use must be authorized by [facility]. Selected Revisions: January 13, 2024. AHFS?? Patient Medication Information?. ?? Copyright, 2024 * Edilia OnIR - Rosa M Plaza RN - 06/02/2025 1:28 PM EST Images from the original note were not included. 798 Narcan Nasal [place]: Rescue Guide for Opioid Overdose Step 1 Check for signs of overdose. Think someone had opioid overdose? Shout their name and ask Are you OK? Try shaking them by the shoulders or rubbing the middle of the chest. Signs of overdose are: ? No response or does not wake up. ? Breathing is slow, odd, or has stopped. ? Center of the eye (pupil) is very small. If you see any of these signs, go to Step 2. Step 2 Give the medicine. 1. Lay the person flat on the back. 2. Get the Narcan nasal spray. Peel back the tab to remove the bottle. 3. Hold the bottle as shown. 4. Put your free hand behind the person?s neck. Gently lift to tilt the head back. 5. Place the nozzle inside one nostril until your fingers touch the nose. 6. Press the plunger with your thumb to spray. Then remove from the nostril. Step 3 Call 911 for help and watch the person. ? Call 911 for emergency help. ? Have the person lay on their side as shown. ? Look for a response. The person may wake up, breathe normally, or respond to touch or voice. ? If there is no response for 2-3 minutes after giving the spray, give another - if you have extra spray bottles. In that case, repeat Step 2 then move them back on to their side. ? You can repeat this every 2-3 minutes until help arrives or the person responds. ? Use this medicine only if you know or suspect the person has opioid overdose. ? Do not open the Narcan package until you need to use it. ? Only for use in the nose. * Edilia OnIR - Rosa M Plaza RN - 06/02/2025 1:28 PM EST Images from the original note were not included. [id number] Gabapentin WHY is this medicine prescribed? Gabapentin capsules, tablets, and oral solution are used along with other medications to help control certain types of seizures in people who have epilepsy. Gabapentin capsules, tablets, and oral solution are also used to relieve the pain of postherpetic neuralgia (PHN; the burning, stabbing pain or aches that may last for months or years after an attack of shingles). Gabapentin extended-release tablets (Horizant) are used to treat restless legs syndrome (RLS; a condition that causes discomfortin the legs and a strong urge to move the legs, especially at night and when sitting or lying down). Gabapentin is in a class of medications called anticonvulsants. Gabapentin treats seizures by decreasing abnormal excitement in the brain. Gabapentin relieves the pain of PHN by changing the way thebody senses pain. It is not known exactly how gabapentin works to treat restless legs syndrome. HOW should this medicine be used? Gabapentin comes as a capsule, a tablet, an extended-release (long-acting) tablet, and an oral solution (liquid) to take by mouth. Gabapentin capsules, tablets, and oral solution are usually taken with a full glass of water (8 ounces [240 milliliters]), with or without food, three times a day. These medications should be taken at evenly spaced times throughout the day and night; no more than12 hours should pass between doses. The extended-release tablet (Horizant) is taken with food once daily at about 5 PM. Follow the directions on your prescription label carefully, and ask your doctoror pharmacist to explain any part you do not understand. Take gabapentin exactly as directed. Do not take more or less of it or take it more often than prescribed by your doctor. Gabapentin extended-release tablets cannot be substituted for another type of gabapentin product. Be sure that you receive only the type of gabapentin that was prescribed by your doctor. Ask your pharmacist if you have any questions about the type of gabapentin you were given. Swallow the extended-release tablets whole; do not cut, chew, or crush them. If your doctor tells you to take one-half of a regular tablet as part of your dose, carefully splitthe tablet along the score wiley. Use the other half-tablet as part of your next dose. Properly dispose of any half-tablets that you have not used within several days of breaking them. If you are taking gabapentin to control seizures or PHN, your doctor will probably start you on a low dose of gabapentin and gradually increase your dose as needed to treat your condition. If you aretaking gabapentin to treat PHN, tell your doctor if your symptoms do not improve during your treatment. Gabapentin may help to control your condition but will not cure it. Continue to take gabapentin even if you feel well. Do not stop taking gabapentin without talking to your doctor, even if you experience side effects such as unusual changes in behavior or mood. If you suddenly stop taking gabapentin tablets, capsules, or oral solution, you may experience withdrawal symptoms such as anxiety, difficulty falling asleep or staying asleep, nausea, pain, and sweating. If you are taking gabapentin to treat seizures and you suddenly stop taking the medication, you may experience seizures more often. Your doctor may decrease your dose gradually over at least a week. Your doctor or pharmacist will give you the guest service team leader's patient information sheet (Medication Guide) when you begin treatment with gabapentin and each time you refill your prescription. Read the information carefully and ask your doctor or pharmacist if you have any questions. You can also visitthe Food and Drug Administration (FDA) website (https://www.fda.gov/Drugs) or the guest service team leader's website to obtain the Medication Guide. Are there OTHER USES for this medicine? Gabapentin is also sometimes used to relieve the pain of diabetic neuropathy (numbness or tingling due to nerve damage in people who have diabetes), and to treat and prevent hot flashes (sudden strong feelings of heat and sweating) in women who are being treated for breast cancer or who have experienced menopause (''change of life'', the end of monthly menstrual periods). Talk to your doctor about the risks of using this medication for your condition. This medication may be prescribed for other uses; ask your doctor or pharmacist for more information. What SPECIAL PRECAUTIONS should I follow? Before taking gabapentin, ? tell your doctor and pharmacist if you are allergic to gabapentin, any other medications, or any of the inactive ingredients in the type of gabapentin you plan to take. Ask your pharmacist for a list of the inactive ingredients. ? you should know that gabapentin is available in different forms that may be prescribed for different uses. Ask your doctor to be sure that you are not taking more than one product that contains gabapentin. ? tell your doctor and pharmacist what prescription and nonprescription medications, vitamins, nutritional supplements, and herbal products you are taking or plan to take while taking gabapentin. Your doctor may need to change the doses of your medications or monitor you carefully for side effects. ? if you are taking antacids such as Maalox or Mylanta, take them at least 2 hours before you take gabapentin tablets, capsules, or solution. ? the following nonprescription products may interact with gabapentin: nonsteroidal anti-inflammatory drugs (NSAIDS) such as ibuprofen (Advil, Motrin, others) and naproxen (Aleve). Be sure to let your doctor and pharmacist know that you are taking these medications before you start taking gabapentin. Do not start any of these medications while taking gabapentin without discussing with your healthcare provider. ? tell your doctor if you have or have ever had lung or kidney disease. If you will be taking the extended-release tablets, also tell your doctor if you need to sleep during the day and stay awake atnight. ? tell your doctor if you are , plan to become , or are breast- feeding. If you become while taking gabapentin, call your doctor. ? if you are having surgery, including dental surgery, tell the doctor or dentist that you are taking gabapentin. ? you should know that this medication may make you drowsy or dizzy, may slow your thinking, and may cause loss of coordination. Do not drive a car or operate machinery until you know how this medication affects you, and your doctor agrees that it is safe for you to begin these activities. ? if you are giving gabapentin to your child, you should know that your child's behavior and mentalabilities may change while he or she is taking gabapentin. Your child may have sudden changes in mood, become hostile or hyperactive, have difficulty concentrating or paying attention, or be drowsy or clumsy. Have your child avoid activities that could be dangerous, such as riding a bicycle, until you know how gabapentin affects him or her. ? remember that alcohol can add to the drowsiness caused by this medication. ? you should know that your mental health may change in unexpected ways and you may become suicidal(thinking about harming or killing yourself or planning or trying to do so) while you are taking gabapentin for the treatment of epilepsy, mental illness, or other conditions. A small number of adults and children 5 years of age and older (about 1 in 500 people) who took anticonvulsants such as gabapentin to treat various conditions during clinical studies became suicidal during their treatment. Some of these people developed suicidal thoughts and behavior as early as one week after they started taking the medication. There is a risk that you may experience changes in your mental health if you take an anticonvulsant medication such as gabapentin, but there may also be a risk that you will experience changes in your mental health if your condition is not treated. You and your doctor will decide whether the risks of taking an anticonvulsant medication are greater than the risks of not taking the medication. You, your family, or your caregiver should call your doctor right away if you experience any of the following symptoms: panic attacks; agitation or restlessness; new or worsening irritability, anxiety, or depression; acting on dangerous impulses; difficulty falling or staying asleep; aggressive, angry, or violent behavior; armando (frenzied, abnormally excited mood); talking or th inking about wanting to hurt yourself or end your life; withdrawing from friends and family; preoccupation with and dying; giving away prized possessions; or any other unusual changes in behavior or mood. Be sure that your family or caregiver knows which symptoms may be serious so they can call the doctor if you are unable to seek treatment on your own. What SPECIAL DIETARY instructions should I follow? Unless your doctor tells you otherwise, continue your normal diet. What should I do IF I FORGET to take a dose? If you forget to take gabapentin capsules, tablets, or oral solution, take the missed dose as soon as you remember it. However, if it is almost time for the next dose or if you forget to take gabapentin extended-release tablets, skip the missed dose and continue your regular dosing schedule. Do nottake a double dose to make up for a missed one. What SIDE EFFECTS can this medicine cause? Some side effects may be serious. If you experience any of the following symptoms, call your doctorimmediately: ? rash ? itching ? swelling of the face, throat, tongue, lips, or eyes ? hoarseness ? difficulty swallowing or breathing ? seizures ? difficulty breathing; bluish-tinged skin, lips, or fingernails; confusion; or extreme sleepiness Gabapentin may cause other side effects. Call your doctor if you have any unusual problems while taking this medication. If you experience a serious side effect, you or your doctor may send a report to the Food and Drug Administration's (FDA) MedWatch Adverse Event Reporting program online (https://www.fda.gov/Safety/MedWatch) or by phone ( ). What should I know about STORAGE and DISPOSAL of this medication? Keep this medication in the container it came in, tightly closed, and out of reach of children. Store the tablets, extended-release tablets, and capsules at room temperature, away from excess heat and moisture (not in the bathroom). Store the oral solution in the refrigerator. Keep all medication out of sight and reach of children as many containers are not child-resistant. Always lock safety caps. Place the medication in a safe location - one that is up and away and out of their sight and reach. https://www.[employer].org Dispose of unneeded medications in a way so that pets, children, and other people cannot take them.Do not flush this medication down the toilet. Use a medicine take-back program. Talk to your pharmacist about take-back programs in your community. Visit the FDA's Safe Disposal of Medicines website h ttps://goo.gl/c4Rm4p for more information. What should I do in case of OVERDOSE? In case of overdose, call the poison control helpline at . Information is also available online at https://www.poisonhelp.org/help. If the victim has collapsed, had a seizure, has trouble breathing, or can't be awakened, immediately call emergency services at 911. Symptoms of overdose may include the following: ? double vision ? slurred speech ? drowsiness ? diarrhea What OTHER INFORMATION should I know? Keep all appointments with your doctor. Before having any laboratory test, tell your doctor and the laboratory personnel that you are taking gabapentin. If you use a dipstick to test your urine for protein, ask your doctor which product you should use while taking this medication. Do not let anyone else take your medication. Ask your pharmacist any questions you have about refilling your prescription. Keep a written list of all of the prescription and nonprescription (uljd-fdc-prtxpnm) medicines, vitamins, minerals, and dietary supplements you are taking. Bring this list with you each time you visit a doctor or if you are admitted to the hospital. You should carry the list with you in case of deonte rgencies. Brand Name(s): ? Gralise?? ? Horizant?? ? Neurontin?? also available generically This report on medications is for your information only, and is not considered individual patient advice. Because of the changing nature of drug information, please consult your physician or pharmacist about specific clinical use. The [employer] represents that the information provided hereunder was formulated with a reasonable standard of care, and in conformity with professional standards in the field. The [place] makes no representations or warranties, express or implied, including, but not limited to, any implied warranty of merchantability and/or fitness for a particular purpose, with respect to such information and specifically disclaims all such warranties. Users are advised that decisions regarding drug therapy are complex medical decisions requiring the independent, informed decision of an appropriate health district manager primary care sales, and the information is provided for informational purposes only. The entire monograph for a drug should be reviewed for a thorough understanding of the drug's actions, uses and side effects. The [employer] does not endorse or recommend the use of any drug.The information is not a substitute for medical care. AHFS?? Patient Medication Information?. ?? Copyright, 2023. The [employer]??, [address], [address], [place], [place]. All Rights Reserved. Duplication for commercial use must be authorized by [facility]. Selected Revisions: November 08, 2019. AHFS?? Patient Medication Information?. ?? Copyright, 2024 * Edliia Stockton - Rosa M Plaza RN - 06/02/2025 1:28 PM EST Images from the original note were not included. [id number] Acetaminophen IMPORTANT WARNING: Taking too much acetaminophen can cause liver damage, sometimes serious enough to require liver transplantation or cause . You might accidentally take too much acetaminophen if you do not followthe directions on the prescription or package label carefully, or if you take more than one productthat contains acetaminophen. To be sure that you take acetaminophen safely, you should ? not take more than one product that contains acetaminophen at a time. Read the labels of all the prescription and nonprescription medications you are taking to see if they contain acetaminophen. Beaware that abbreviations such as APAP, AC, Acetaminophen, Acetaminoph, Acetaminop, Acetamin, or Acetam may be written on the label in place of the word acetaminophen. Ask your doctor or pharmacist for help determining if the product you are taking contains acetaminophen. ? take acetaminophen exactly as directed on the prescription or package label. Do not take more acetaminophen or take it more often than directed, even if you still have fever or pain. ? do not take more than 4000 mg of acetaminophen per day from all sources. Ask your doctor or pharmacist if you need help determining how much acetaminophen you can take. ? tell your doctor if you have or have ever had liver disease. ? not take acetaminophen if you drink three or more alcoholic drinks every day. Talk to your doctorabout the safe use of alcohol while you are taking acetaminophen. ? stop taking your medication and call your doctor right away if you think you have taken too much acetaminophen, even if you feel well. Talk to your pharmacist or doctor if you have questions about the safe use of acetaminophen or acetaminophen-containing products. WHY is this medicine prescribed? Acetaminophen is used to relieve mild to moderate pain and to reduce fever. Acetaminophen is in a class of medications called analgesics (pain relievers) and antipyretics (fever reducers). It works by changing the way the body senses pain and by cooling the body. HOW should this medicine be used? Acetaminophen comes as a tablet, chewable tablet, capsule, suspension or solution (liquid), extended-release (long-acting) tablet, and orally disintegrating tablet (tablet that dissolves quickly in the mouth), to take by mouth, with or without food. Acetaminophen is available without a prescription, but your doctor may prescribe acetaminophen to treat certain conditions. Take acetaminophen exactly as directed. Follow the directions on the package or prescription label carefully. Do not take more than indicated on the label. If you are giving acetaminophen to your child, read the package label carefully to make sure that it is the right product for the age of the child. Do not give children acetaminophen products that are made for adults. Check the package label to find out how much medication the child needs. If you know how much your child weighs, give the dose that matches that weight on the chart. If you don't know your child's weight, give the dose that matches your child's age. Ask your child's doctor if you don't know how much medication to give your child. Acetaminophen comes in combination with other medications to treat cough and cold symptoms. Check nonprescription cough and cold product labels carefully before using two or more products at the sametime. These products may contain the same active ingredient(s) and taking them together could causeyou to receive an overdose. Swallow the extended-release tablets whole; do not split, chew, crush, or dissolve them. Place the orally disintegrating tablet ('Meltaways') in your mouth and allow it to dissolve, or chew it before swallowing. Shake the suspension well before each use to mix the medication evenly. Always use the measuring cup or syringe provided by the guest service team leader to measure each dose of the solution or suspension. Do notswitch dosing devices between different products; always use the device that comes in the product packaging. Stop taking acetaminophen and call your doctor if your symptoms get worse, you develop new or unexpected symptoms, including redness or swelling, your pain lasts for more than 10 days, or your fever gets worse or lasts more than 3 days. Also stop giving acetaminophen to your child and call your child's doctor if your child develops new symptoms, including redness or swelling, or if your child's pain lasts for longer than 5 days, or if a fever gets worse or lasts longer than 3 days. Do not give acetaminophen to a child who has a sore throat that is severe or does not go away, or that occurs along with fever, headache, rash, nausea, or vomiting. Call the child's doctor right away, because these symptoms may be signs of a more serious condition. Are there OTHER USES for this medicine? Acetaminophen may also be used in combination with aspirin and caffeine to relieve the pain associated with migraine headache. This medication is sometimes prescribed for other uses; ask your doctor or pharmacist for more information. What SPECIAL PRECAUTIONS should I follow? Before taking acetaminophen, ? tell your doctor or pharmacist if you are allergic to this medication, any part of this medication, or any other medications, foods or substances. Tell your doctor or pharmacist about the allergy and what symptoms you had. ? tell your doctor and pharmacist what prescription and nonprescription medications, vitamins, nutritional supplements, or herbal products you are taking or plan to take while taking acetaminophen. Your doctor may need to change the doses of your medications or monitor you carefully for side effects. ? tell your doctor if you are , plan to become , or are breast- feeding. If you become while taking acetaminophen, call your doctor. ? you should know that combination acetaminophen products for cough and colds that contain nasal decongestants, antihistamines, cough suppressants, and expectorants should not be used in children younger than 2 years of age. Use of these medications in young children can cause serious and life-threatening effects or . In children 2 through 11 years of age, combination cough and cold productsshould be used carefully and only according to the directions on the label. ? if you have phenylketonuria (PKU, an inherited condition in which a special diet must be followedto prevent damage to your brain that can cause severe intellectual disability), you should know that some brands of acetaminophen chewable tablets may be sweetened with aspartame, a source of phenylalanine. What SPECIAL DIETARY instructions should I follow? Unless your doctor tells you otherwise, continue your normal diet. What should I do IF I FORGET to take a dose? This medication is usually taken as needed. If your doctor has told you to take acetaminophen regularly, take the missed dose as soon as you remember it. However, if it is almost time for the next dose, skip the missed dose and continue your regular dosing schedule. Do not take a double dose to make up for a missed one. What SIDE EFFECTS can this medicine cause? Some side effects can be serious. If you experience any of the following symptoms, stop taking acetaminophen and call your doctor immediately or get emergency medical attention: ? red, peeling or blistering skin; rash; hives; itching; swelling of the face, throat, tongue, lips, hands, feet, ankles or lower legs; hoarseness; difficulty breathing or swallowing ? yellowing of the skin or whites of the eyes; upper belly pain; dark urine; pale stools Acetaminophen may cause other side effects. Call your doctor if you have any unusual problems whileyou are taking this medication. If you experience a serious side effect, you or your doctor may send a report to the Food and Drug Administration's (FDA) MedWatch Adverse Event Reporting program online (https://www.fda.gov/Safety/MedWatch) or by phone ( ). What should I know about STORAGE and DISPOSAL of this medication? Keep this medication in the container it came in, tightly closed, and out of reach of children. Store it at room temperature and away from excess heat and moisture (not in the bathroom). Keep all medication out of sight and reach of children as many containers are not child-resistant. Always lock safety caps. Place the medication in a safe location - one that is up and away and out of their sight and reach. https://www.[employer].org Dispose of unneeded medications in a way so that pets, children, and other people cannot take them.Do not flush this medication down the toilet. Use a medicine take-back program. Talk to your pharmacist about take-back programs in your community. Visit the FDA's Safe Disposal of Medicines website h ttps://goo.gl/c4Rm4p for more information. What should I do in case of OVERDOSE? In case of overdose, call the poison control helpline at . Information is also available online at https://www.poisonhelp.org/help. If the victim has collapsed, had a seizure, has trouble breathing, or can't be awakened, immediately call emergency services at 911. If someone takes more than the recommended dose of acetaminophen, get medical help immediately, even if the person does not have any symptoms. Symptoms of overdose may include the following: ? nausea, vomiting, loss of appetite; upper belly pain ? yellowing of the skin or eyes ? sweating ? extreme tiredness or flu-like symptoms ? unusual bleeding or bruising What OTHER INFORMATION should I know? Ask your pharmacist any questions you have about acetaminophen. Keep a written list of all of the prescription and nonprescription (fddy-sej-hujwakm) medicines, vitamins, minerals, and dietary supplements you are taking. Bring this list with you each time you visit a doctor or if you are admitted to the hospital. You should carry the list with you in case of deonte rgencies. Brand Name(s): ? Actamin? Feverall?? ? Panadol? Tempra Quicklets? Tylenol?? ? Dayquil?? (as a combination product containing Acetaminophen, Dextromethorphan, Pseudoephedrine) ? NyQuil Cold/Flu Relief?? (as a combination product containing Acetaminophen, Dextromethorphan, Doxylamine) APAP, K-sbqwuf-ccnr-aminophenol, Paracetamol ?? This branded product is no longer on the market. Generic alternatives may be available. This report on medications is for your information only, and is not considered individual patient advice. Because of the changing nature of drug information, please consult your physician or pharmacist about specific clinical use. The [place] represents that the information provided hereunder was formulated with a reasonable standard of care, and in conformity with professional standards in the field. The [place] makes no representations or warranties, express or implied, including, but not limited to, any implied warranty of merchantability and/or fitness for a particular purpose, with respect to such information and specifically disclaims all such warranties. Users are advised that decisions regarding drug therapy are complex medical decisions requiring the independent, informed decision of an appropriate health district manager primary care sales, and the information is provided for informational purposes only. The entire monograph for a drug should be reviewed for a thorough understanding of the drug's actions, uses and side effects. The [place] does not endorse or recommend the use of any drug.The information is not a substitute for medical care. AHFS?? Patient Medication Information?. ?? Copyright, 2023. The [employer]??, [address], [address], [place], [place]. All Rights Reserved. Duplication for commercial use must be authorized by [facility]. Selected Revisions: April 09, 2025. AHFS?? Patient Medication Information?. ?? Copyright, 2024 * Edilia OnFHIR - Rosa M Plaza RN - 06/02/2025 1:27 PM EST 1087 Oxycodone Oral Tablet, Immediate Release Brand Names: Oxaydo, Roxicodone What is this medicine? Oxycodone (dj-h-MHM-done) is an opioid pain reliever. It is used to treat moderate to severe pain. What should I tell my health care provider before I take this medicine? They need to know if you have any of these conditions: ? [place]'s disease ? Brain tumor or head injury ? Personal or family history of drug abuse or addiction ? Heart disease ? Frequent alcohol use ? Kidney disease ? Liver disease ? Lung disease, asthma, or breathing problems ? Depression, anxiety, or other psychiatric disease ? Allergy or unusual reaction to oxycodone, acetaminophen or other pain relievers ? , trying to get , or How should I use this medicine? Take this medicine as prescribed by your doctor, and follow the directions on the prescription label. ? Take this medicine as prescribed by your doctor. Follow the directions on the prescription label. ? Do not take this medicine more often than directed. ? This medicine should be taken with a full glass of water. ? If it upsets your stomach, you may take it with food. You do not have to take this medicine with food. ? Do not crush, cut, chew, lick, wet, soak, or otherwise manipulate a tablet before taking. ? Do not share this medicine with others. This medicine is only for you. ? The pharmacy will give you a special medication guide each time you hand picker this medicine. ? Overdosage: Taking too much of this medicine can be deadly. Your doctor may prescribe another medicine with this medicine to treat an accidental overdose. If you think you have taken too much of this medicine, call 911 immediately. What if I miss a dose? If you miss a dose, you may take it as soon as you remember. If it is almost time for your next dose, take only that dose. Do not take double or extra doses. What may interact with this medicine? ? Alcohol ? Medicines for sleep, depression, anxiety, or psychiatric diseases ? Seizure medicines like gabapentin, pregabalin, phenytoin, or phenobarbital ? Other pain medicines like tramadol, hydrocodone, fentanyl, or morphine ? Muscle relaxers ? Certain nausea medicines like chlorpromazine or promethazine ? Cannabinoids like droperidol ? Certain antibiotics like erythromycin, clarithromycin, rifampin, ritonavir, voriconazole, or ketoconazole ? Allergy medicines like diphenhydramine This list may not describe all possible interactions. Give your health care provider a list of all the medicines, herbs, non-prescription drugs, or dietary supplements you use. Also tell them if you smoke, drink alcohol, or use illegal drugs. Some items may interact with your medicine. What should I watch for while using this medicine? ? Before you start taking this medicine, talk with your doctor about how long you should be on thismedicine. You should also talk to your doctor about other things you can do to treat pain, including other medicines or non-drug treatments like meditation or acupuncture. While taking this medicine,tell your doctor if your pain does not go away or gets worse or if you have a new or different typeof pain. ? It is possible you could become dependent on this medicine. The risk of dependence increases the longer you are on the medicine. Dependence is not addiction; however, if you have a personal or family history of addiction, you are at higher risk for becoming addicted to this medicine. Talk to yourdoctor if you are worried about dependence or addiction. ? If you take this medicine for a long time and suddenly stop taking this medicine, you may withdraw from this medicine. Withdrawal from this medicine may cause sweating, pain, diarrhea, anxiety, tremor, and other symptoms. Stopping the medicine slowly can reduce withdrawal symptoms. ? This medicine may cause dizziness or drowsiness, especially when you change doses or first start the medicine. Do not drive, use machinery, or do anything dangerous until you know how your body reacts to this medicine. ? This medicine causes constipation. Unless your doctor tells you not to, you should take a stool softener while on this medicine. Tell your doctor if you have not had a bowel movement in 3 or more days while on this medicine. ? This medicine can also cause dry mouth. Drinking water, chewing gum, or sucking on hard candy canhelp. It is important to keep regular dentist appointments. What side effects may I notice from receiving this medicine? Side effects that you should report to your doctor or health district manager primary care sales as soon as possible: ? allergic reactions like skin rash, itching or hives, swelling of the face, lips, or tongue ? breathing problems ? confusion ? craving for the medicine or withdrawal symptoms with a missed dose ? feeling faint or lightheaded, falls ? trouble passing urine or change in the amount of urine ? unusually weak or tired Side effects that usually do not require medical attention (report to your doctor or health district manager primary care sales if they continue or are bothersome): ? constipation ? dry mouth ? itching ? nausea, vomiting ? upset stomach This list may not describe all possible side effects. Call your doctor for medical advice about side effects. You may report side effects to FDA at 1-252-WEF-0146. Where should I keep my medicine? This medicine should be kept in a locked cabinet away from children and protected from theft. This medicine can be abused. Do not share this medicine with anyone. Selling or giving away this medicineis against the law. Store at room temperature (60-80??F) in a dry place that is protected from light. Do not save unused medicine that is no longer needed. Unused medicine should be taken to a proper disposal location. To find a disposal location, visit [employer]/[place]. If you cannot take unused medicine to a proper location, you can mix the medicine with coffee grounds or jerome litter and dispose of in the normal trash. Your doctor may also give you a special disposal pouch for this medicine. You can also flush the medicine down the toilet. * Discharge Summary - Conrado Park APRN - 06/02/2025 1:20 PM EST Images from the original note were not included. Hospitalization Admit Date/Time: 05/13/2025 6:45 PM Admitting Attending: Zay Sheth Discharge Date: 06/02/25 Discharge Attending Physician: Lokesh Anderson MD PCP name and Address: Golden Newell MD [address] [address] / [place] [id number] Referring provider name and address: No referring provider defined for this encounter. Chief Concern, Brief History of Present Illness, and Hospital Course Draft Hospital Course Dot Dale is a 69 y.o. female with a past medical history of IPMN s/p distal pancreatectomy and splenectomy on 03/20/25, history of CVA on aspirin, HLD , presented to [facility] complaining of abdominal pain, rigors, and diaphoresis. Patient was subsequently admitted on 05/13/2025 for further ev aluation, and treatment. Hospital course significant for as follows: 05/14: IR place CT guided drain in abscess 05/19: removed LUQ drain 05/21: IR placed a pigtail chest tube 05/22: CT scan showed Large left pleural effusion and left lower lobe atelectasis. Trace right pleural effusion and mild right basal atelectatic changes. Fluid-filled structure along the left lower lobe may represent a loculated pleural fluid along the left major fissure versus pulmonary cyst. Thoracic surgery was consulted for persistent pleural effusion no changed after IR drain 05/25: Thoracic surgery exchanged IR drain to chest tube. 05/27: Thoracic surgery performed a VATs left lung decort placed 2 chest tubes 05/31: 28fr chest tube removed 06/01: 24fr chest tube removed Discharge medication to highlight: - Total Parenteral Nutrition (TPN): Patient will be discharged with TPN. [employer] will be managing, teaching and providing supplies to manage the pump and TPN. - Pain medication: Patient will be discharged with gabapentin, Robaxin and Tylenol for regular daily pain management. Patient will also be prescribed oxycodone for as needed breakthrough severe pain. - Restart home meds as listed below Significant to discharge: - PICC line: Patient will be discharged with a PICC line. The PICC line will be used for TPN. Patient has been set up with Home Health for weekly PICC line dressing change and lab draws. On 06/02/25, patient has been hemodynamically stable and deemed medically appropriate for discharge.Currently, the patient's pain is well controlled on an oral regimen. They have return of bowel function and are tolerating a regular diet with no nausea/vomiting. There were no difficulties voiding. The patient will be discharged to Home with Home Health. Follow-up appointments: - The patient will follow-up with Vibha Osborn APRN or Alesia uCi APRN in clinic in 1 week on 06/04/25 or 06/05/25 via telehealth. Surgeries and Procedures Procedures performed in this encounter Procedures Case Request Operating Room: VATS Decortication Chest Tube Insertion VATS Decortication (N/A) Medication List PAUSE taking these medications amLODIPine 5 MG tablet Wait to take this until your doctor or other care provider tells you to start again. Commonly known as: Norvasc Take 1 tablet by mouth daily. .. acetaminophen 500 MG tablet Commonly known as: Tylenol Take 2 tablets by mouth every 8 hours for 15 days. * Alcoh-Wipe sheet Use as directed. * Alcoh-Wipe sheet Use as directed. aspirin 81 MG EC tablet Take 1 tablet by mouth daily. atorvastatin 80 MG tablet Commonly known as: Lipitor Take 1 tablet by mouth daily. * Blood Glucose Monitoring Suppl device Check blood sugar, twice daily. Once, one hour after TPN disconnects, and one hour after TPN connection. * Blood Glucose Monitoring Suppl device Test two times daily gabapentin 300 MG capsule Commonly known as: Neurontin Take 1 capsule by mouth 2 times a day. glucose 4 g chewable tablet Commonly known as: Trueplus Glucose Chew 4 tablets as needed for low blood sugar. * glucose blood test strip Test two times daily * glucose blood test strip Test two times daily * Lancets misc Test two times daily * Lancets misc Test two times daily Lantus SoloStar 100 UNIT/ML injection pen Generic drug: insulin glargine Inject 24 Units under the skin every morning. Please administer 24 units 1 hour after starting TPN.Check your blood sugar twice a day and if your blood sugar is less than 110, then administer 12 units of lantus instead of 24units Lidocaine 4 % patch Commonly known as: Lidoderm Apply 1 patch topically 1 (one) time each day at the same time over 12 hours. Remove & discard patch within 12 hours or as directed by . methocarbamol 500 MG tablet Commonly known as: Robaxin Take 2 tablets by mouth 4 times a day. naloxone 4 mg/0.1 mL nasal spray Commonly known as: Narcan 1. Give 1 spray in nostril for no/slow breathing or cannot wake after opioid use 2. Call 911 3. Repeat in other nostril if symptoms continue ondansetron ODT 4 MG disintegrating tablet Commonly known as: Zofran-ODT Dissolve 1 tablet on the tongue every 6 hours as needed for nausea or vomiting. oxyCODONE 5 MG immediate release tablet Commonly known as: Roxicodone Take 2 tablets by mouth every 4 hours as needed for moderate pain or severe pain for up to 3 days. pantoprazole 40 MG EC tablet Commonly known as: Protonix Take 1 tablet by mouth daily. Do not crush, chew, or split. Start taking on: June 03, 2025 * pen needle, diabetic 31G X 5 MM misc Use as directed with insulin pen. * pen needle, diabetic 31G X 5 MM misc Use as directed with insulin pen. senna-docusate 8.6-50 MG tablet Commonly known as: Lacey-Colace Take 1 tablet by mouth nightly. * This list has 10 medication(s) that are the same as other medications prescribed for you. Read the directions carefully, and ask your doctor or other care provider to review them with you. Where to Get Your Medications These medications were sent to [facility] - [place], [place] - [address] [address] [facility] [address] [facility] [id number] acetaminophen 500 MG tablet Alcoh-Wipe sheet Blood Glucose Monitoring Suppl device gabapentin 300 MG capsule glucose 4 g chewable tablet glucose blood test strip Lancets misc Lantus SoloStar 100 UNIT/ML injection pen Lidocaine 4 % patch methocarbamol 500 MG tablet naloxone 4 mg/0.1 mL nasal spray ondansetron ODT 4 MG disintegrating tablet oxyCODONE 5 MG immediate release tablet pantoprazole 40 MG EC tablet pen needle, diabetic 31G X 5 MM misc senna-docusate 8.6-50 MG tablet Discharge Diagnosis Medical Problems Active and Resolved Hospital Problems Hospital On total parenteral nutrition (TPN) Overview Addendum 05/29/2025 2:06 PM by Conrado aPrk PETROGRAPHER - initiated on 05/20/25 -daily CMP,mg,phos -weekly pre-albumin, triglycerides - PICC Placement * (Principal) Peripancreatic fluid collection Abdominal pain HTN (hypertension) Vascular problem Pancreatic cyst Pleural effusion associated with pulmonary infection Pituitary adenoma (CMS/HCC) Pleural effusion Overview Signed 05/30/2025 3:05 PM by Katlyn Hopkins APRN Left VATS total pulmonary decortication. Chest tubes x2 Post Discharge Instructions Medications: - Pain medication: You will be discharged with gabapentin, Robaxin and Tylenol for as needed daily pain management. You will also be prescribed oxycodone for as needed breakthrough severe pain. - Diabetes medication: You will be discharged on 24 units of lantus daily. Please check your blood sugar twice a day and if your blood sugar is less than 110, please give 12 units of lantus daily instead of 23 units. - You may resume your previous medications unless otherwise instructed. Nutrition: - You should consume a regular diet as tolerated, focusing on liquids to keep yourself hydrated. Please refer to diet education for more instructions on what you can or cannot eat. - Total Parenteral Nutrition (TPN): You will be discharged with TPN. [employer] will be managing, teaching and providing supplies to manage the pump and TPN. - PICC line: You will be discharged with a PICC line. The PICC line will be used for TPN. You have been set up with Home Health for weekly PICC line dressing change and lab draws. Activity: - Walking and climbing stairs is ok and encouraged. You should refrain from any strenuous activity/exercise until your follow up appointment. - No lifting anything more than 10 pounds for the next 6 weeks - You may not drive for 48 hours after surgery, or while taking narcotics Potential Issues: - It is normal to have some pain and soreness, especially around the incisions - A small amount of clear drainage from the incision may be expected, call the office if the drainage becomes bloody, purulent (pus), or foul-smelling - Call the office if you start to have increased redness, drainage, swelling, or increased pain around your incision - Call the office if you have a fever greater than 101 F - Call the office if you have severe abdominal discomfort, nausea and vomiting, or feeling unwell - Call the [facility] with any questions or concerns during regular business hours (9am-5pm Monday through Monday except holidays). The number is . - If outside regular business hours, please call the after hours number at . Follow Up: - You will follow-up with Vibha Osborn APRN or Alesia Cui APRN in clinic in 1 week on 06/04/25 or 06/05/25 via telehealth. Outpatient Follow-Up No future appointments. Test Results Pending At Discharge Pending Labs Order Current Status Anaerobic Culture Preliminary result Fungal Culture, Sterile Body Fluid (NOT CSF) and MODESTO Preliminary result Pertinent Physical Exam At Time of Discharge Physical Exam Vitals reviewed. Constitutional: General: She is not in acute distress. Appearance: She is ill-appearing. HENT: Head: Atraumatic. Nose: Nose normal. Mouth/Throat: Mouth: Mucous membranes are dry. Eyes: General: No scleral icterus. Extraocular Movements: Extraocular movements intact. Conjunctiva/sclera: Conjunctivae normal. Cardiovascular: Rate and Rhythm: Normal rate. Pulmonary: Effort: Pulmonary effort is normal. No respiratory distress. Comments: L mid axillary chest tube with SS output atrium to water seal no air leak appreciated (interval change with posterior L CT removed) Abdominal: General: There is no distension. Palpations: Abdomen is soft. Tenderness: There is abdominal tenderness (ATTP). Comments: Laparotomy incision healing appropriately Musculoskeletal: General: No swelling. Normal range of motion. Cervical back: Normal range of motion. Skin: General: Skin is warm and dry. Capillary Refill: Capillary refill takes less than 2 seconds. Coloration: Skin is not jaundiced. Neurological: General: No focal deficit present. Mental Status: She is alert and oriented to person, place, and time. Psychiatric: Mood and Affect: Mood normal. Behavior: Behavior normal. Discharge Disposition/Condition Disposition: Home with Home Health Condition: Stable (s/sx potential problems absent or manageable) I spent >30 minutes of patient care and instruction time in preparation for this discharge. Cosigned by Lokesh Anderson MD at 06/05/2025 8:39 PM EST Associated attestation - Lokesh Anderson MD - 06/05/2025 8:39 PM EST I attest to being involved in more than half the total time in patient care. * Care Plan - Ariane Ordoñez RN - 06/02/2025 11:34 AM EST Problem: Adult Inpatient Plan of Care Goal: Patient-Specific Goal (Individualized) Outcome: Ongoing, Progressing Flowsheets (Taken 06/02/2025 0800) Patient/Family-Specific Goals (Include Timeframe): patient will consume 50% of each meal this shift. Individualized Care Needs: none Anxieties, Fears or Concerns: none Goal: Optimal Comfort and Wellbeing Outcome: Ongoing, Progressing Intervention: Monitor Pain and Promote Comfort Flowsheets (Taken 06/02/2025 1132) Pain Management Interventions: pain management plan reviewed with patient/caregiver Intervention: Provide Person-Centered Care Flowsheets (Taken 06/02/2025 113) Trust Relationship/Rapport: care explained questions answered choices provided questions encouraged emotional support provided reassurance provided Problem: Pain Acute Goal: Optimal Pain Control and Function Outcome: Ongoing, Progressing Intervention: Optimize Psychosocial Wellbeing Flowsheets (Taken 06/02/2025 113) Supportive Measures: active listening utilized self-care encouraged relaxation techniques promoted self-responsibility promoted Diversional Activities: television smartphone Spiritual Activities Assistance: personal rituals encouraged Intervention: Develop Pain Management Plan Flowsheets (Taken 06/02/2025 1132) Pain Management Interventions: pain management plan reviewed with patient/caregiver Intervention: Prevent or Manage Pain Flowsheets (Taken 06/02/2025 113) Sensory Stimulation Regulation: television on care clustered Complementary Therapy: essential oils utilized Bowel Elimination Promotion: adequate fluid intake promoted Sleep/Rest Enhancement: consistent schedule promoted natural light exposure provided relaxation techniques promoted Medication Review/Management: medications reviewed Problem: Fall Injury Risk Goal: Absence of Fall and Fall-Related Injury Outcome: Ongoing, Progressing Intervention: Identify and Manage Contributors Flowsheets (Taken 06/02/2025 1132) Medication Review/Management: medications reviewed Self-Care Promotion: independence encouraged BADL personal objects within reach Intervention: Promote Injury-Free Environment Flowsheets (Taken 06/02/2025 0800) Safety Promotion/Fall Prevention: activity supervised assistive device/personal items within reach clutter-free environment maintained fall prevention program maintained lighting adjusted mobility aid in reach nonskid shoes/slippers when out of bed room organization consistent safety round/check completed toileting scheduled Problem: Skin Injury Risk Increased Goal: Skin Health and Integrity Outcome: Ongoing, Progressing Intervention: Optimize Skin Protection Flowsheets Taken 06/02/2025 113 Activity Management: activity adjusted per tolerance Pressure Reduction Techniques: frequent weight shift encouraged Pressure Reduction Devices: positioning supports utilized Skin Protection: protective footwear used incontinence pads utilized Taken 06/02/2025 0800 Head of Bed (HOB) Positioning: HOB elevated Intervention: Promote and Optimize Oral Intake Flowsheets (Taken 06/02/2025 1132) Oral Nutrition Promotion: physical activity promoted rest periods promoted Nutrition Interventions: food preferences provided Problem: Infection Goal: Absence of Infection Signs and Symptoms Outcome: Ongoing, Progressing Intervention: Prevent or Manage Infection Flowsheets (Taken 06/02/2025 113) Infection Management: aseptic technique maintained Fever Reduction/Comfort Measures: lightweight bedding Isolation Precautions: protective * Progress Notes - Nory Romero RN - 06/02/2025 11:27 AM EST Case Management Discharge Note Dot Dale 69 y.o. female CSN: [id number] Admission: 05/13/2025 6:45 PM Primary Problem: Peripancreatic fluid collection Primary Wildlife Policy Professional: Primary Caregiver: Self Assistance Available at Discharge: Gabriela Dale Spouse, Emergency Contact Current Outpatient/Agency/Support Group: DME, clinic(s), homecare agency Availability of Care Givers (#Hours): 24 hours Family/Wildlife Policy Professional(s) Willingness Assessed to care for patient at home: Yes Housing Circumstances-Z Codes: Housing Circumstances (select all that apply): None Applicable Discharge Facility/Level of Care Needs: Discharge Facility/Level of Care Needs: 1-Home or Self Care, 6-[facility] - [place], [place] (Formerly [employer], [employer]) phone [phone]> confirmed TPN/ PICC line care: [facility] an [employer] - [place], [place] > confirmed delivery/teach 4:30 pm today. Patient/Family Anticipated Services at Transition: Patient/Family Anticipated Services at Transition: home health care, outpatient care [facility] - [place], [place] ([facility] [employer]) phone [phone]> confirmed DME/Equipment Needed after Discharge: Equipment Currently Used at Home: walker, rolling Readmission Within the Last 30 Days: no Medicare Documentation: Medicare second notice signed and placed on chart. Follow-up: pending [facility] [address] [facility] [id number] Discharge Transportation: Transportation Anticipated: family or friend will provide Transportation Home at Discharge: Family/Friend will Provide Follow Up Transport: Transportation Needed to Follow up Appoinments: Family/Friend will Provide Additional Comments: per team, medically ready for discharge today to home. Met with patient and her and both agreeable to discharge plan. [id number] enrollment complete. Nory Romero RN * Edilia Stockton - Rosa M Plaza RN - 06/02/2025 11:07 AM EST Images from the original note were not included. [id number] Flushing Your PICC Line at Home Your peripherally inserted central catheter (PICC) line is used to deliver medicine or feedings. It?s a long, flexible tube (catheter) that goes into your vein, runs into larger veins, and ends up with the tip near where the superior vena cava enters your heart. To care for your PICC line, you willneed to flush it. This means you?ll need to clean it with a solution as directed by your health care provider. This keeps it from getting clogged or blocked. A clogged or blocked PICC line will need to be taken out and replaced. When to flush your PICC line You?ll need to flush your PICC line as often as directed by your health care provider. You may needto flush it after each use. If the PICC line is not in active use, you may need to flush it once a day. Or you may only need to flush it once a week. Talk with your provider about how often you should do this. What you?ll need ? Flushing solution. This is the liquid that you will send through the PICC line. Your health care provider will tell you what kind to use. In most cases, it is saline solution. This is a sterile mixof water and a tiny amount of salt. Your provider will also tell you how much to use. You may also need to flush with a heparin solution after the saline. Heparin is a medicine that thins the blood. It helps prevent blood from clotting in and around the catheter. ? A syringe. This is the device used to give an injection, or shot. A syringe is used to flush yourPICC line with the solution. You will probably use prefilled syringes. ? Alcohol wipes or rubbing alcohol and cotton balls. You?ll use these to clean some of the tools used to flush your line. This helps to prevent germs from going into your PICC line. ? Clean medical gloves. How to flush your PICC line Repeat these steps as often as your health care provider has instructed. Skip steps 2 and 3 if you are using prefilled syringes. Step 1. Wash your hands ? Wash your hands well with soap and clean running water for at least 20 seconds. Scrub them well, including the backs of your hands and between your fingers. ? If you don?t have access to soap and water, use an alcohol-based hand firmware manager. The gel should have at least 60% alcohol. Let the hands dry. ? Put on clean medical gloves. ? Only touch your PICC line with clean hands and when wearing clean gloves. This is to protect you from infection and to keep the line free from germs. Step 2. Fill the syringe ? Open a new bottle of the flushing solution. If you?re using a bottle that?s already open, use thealcohol to clean the top of the bottle. ? Remove the cap from the needle or tip of the syringe. Push the plunger of the syringe down all the way. ? Put the needle or tip of the syringe into the flushing solution. ? Pull the syringe plunger out. Stop when you have the right amount of flushing solution in the syringe. Your health care provider will tell you how much to use. Step 3. Remove air from the syringe ? Hold the syringe with the tip pointing up. ? Flick or tap the syringe with your finger. This will cause any large air bubbles to rise into thetip. ? Slowly push on the plunger until a tiny drop of flushing solution comes out of the needle or tip. ? Put the cap back on the needle or tip of the syringe. This will keep it germ- free until you use it. Step 4. Inject the flushing solution ? Scrub the top and sides of the port (end of the catheter) with an alcohol wipe for 15 seconds. Scrub using a twisting motion as if juicing an orange. Let it dry completely. Prevent it from touchinganything while drying. Don't blow on it. Don't reuse the alcohol wipe. Keep the port from touching anything until you connect the syringe. If you accidentally touch the port, clean it again. ? Open the clamp, if there is one. ? Take the cap off the needle or tip of the syringe. Insert the needle or tip into the port. Make sure you know if your PICC has a needleless connector. Ask your health care provider if you aren't sure. ? Push the plunger in slowly and smoothly. Don?t force the plunger. You shouldn?t feel any pressurewhen you push the fluid into the PICC line. If you do, stop and call your provider right away. Step 5. Finish flushing ? If there is a clamp, close it just before the syringe is empty. This stops blood from flowing back into the catheter. ? Remove the needle or tip of the syringe from the port. ? Put the syringe into a special container (sharps container). When to contact your doctor Contact your health care provider right away if you have: ? A fever of 100.4??F (38??C) or higher, or as directed by your provider. ? Chills during or after flushing your line. ? Swelling, redness, drainage, or pain around the PICC site. ? Bleeding from the PICC site. ? Tubing that leaks or is pulling out. ? A feeling of new resistance when flushing the PICC line, or you can't flush it at all. ? Medicine or fluids that don't drain from the bag into your PICC. Last Reviewed Date: 2024 00:00:00 ?? 3743-1346 [employer]. All rights reserved. This information is not intended as a substitute for professional medical care. Always follow your healthcare professional's instructions. * Edilia OnIR - oRsa M Plaza RN - 06/02/2025 11:07 AM EST Images from the original note were not included. 595 Caring for Your PICC Line How to prevent infection and keep the line working. Why do I have a PICC? A PICC line can stay in place for a long stretch of time. It makes it easier to get the fluids and medicines you need. It also provides easy access to draw blood. This means you will need fewer needle sticks. How do I prevent infection? Always wash your hands. Clean your hands thoroughly. Use soap and water or hand firmware manager and wear gloves before touching the PICC line or supplies. Look for signs of infection. Check your skin near the line every day. Check for redness, warmth, swelling, pain, or pus or blood leaking. If you notice any of these, call your doctor right away. ?PICC line Keep your dressing clean, dry and intact. Change the dressing every 7 days. Or change it if it is wet, dirty or loose. If the dressing is even a little moist, it can breed infection. Do not get the dressing wet. Cover the whole dressing when you shower. Use a waterproof cover like plastic wrap or AquaGuard. What else can I do to care for my PICC line? Flush the line. You must do this: ? After each use, AND ? As instructed by the PICC line maker - this may be anywhere from every 12 hours to once a week This will keep the line from clogging. If the line seems hard to flush, tell your doctor right away. Never pull on the catheter. Protect it so it is not pulled on by accident. Clean the catheter caps. Wipe with an alcohol swab for 15 seconds. Clean them before you flush the line or occupational health coordinator fluids or medicines. Avoid hard physical work. Do not use the arm with the PICC line to: AquaGuard PICC with AquaGuard ? Lift anything that weighs more than 10 pounds (A gallon of milk weighs a little less than 10 pounds.) ? Do any repetitive motions Other than that, you may use the arm to do your normal activities. Avoid taking blood pressure in the arm with the PICC line. Remember these tips: ? Preventing infection is the #1 goal in PICC line care. ? Call your doctor right away if you have any sign of infection. ? Always wash your hands and put on gloves before touching your PICC line. ? Keep your dressing clean, dry, and in good shape. Change the dressing if it becomes wet, dirty, or loose. ? Cover the dressing when you shower. Preventing infection is our #1 goal! Know the signs of infection: ? Swelling ? Pain ? Redness ? Warmth ? Pus or blood leaking Check your skin near the PICC line daily. If you have any sign of infection, call your doctor rightaway. * Clinician Note - Kalee Vargas - 06/02/2025 10:56 AM EST Physical Therapy Attempt Patient Name: Dot Dale Today's Date: 06/02/2025 Patient was attempted to be seen by physical therapy 06/02/2025 for PT Re- Assessment however patientpolitely declined (she and state that she is discharging to home today, she declined to practice 5 steps for home as she says I am strong. ). Physical therapy team will follow-up as schedulepermits. Written by Kalee Vargas on 06/02/2025 at 10:58 AM. * Progress Notes - Anni Iqbal, PharmD - 06/02/2025 9:21 AM EST Images from the original note were not included. Pharmacist TPN Progress Note Patient: Dot Dale Age: 69 y.o. Admission Date: [id number] Subjective/Objective/Hospital Course: 69 y.o. female with PMHx significant for IPMN s/p distal pancreatectomy and splenectomy c/b post-op pancreatic leak requiring extended period with surgical drainin place (removed on 04/23). Presented to the [facility] on 05/13/2025 with abdominal pain, rigors, diaphoresis, and overall poor intake found to have peripancreatic fluid collection. Patient has been on TPN previously (~03/30-04/25). 05/20: Patient agreeable to PICC and TPN, switched appetite stimulants (megestrol --> dronabinol), CT scan pending 05/21: CT abd/pelv demonstrates loculated large left pleural effusion, chest tube placement with IR 05/23: possible washout with TSS this weekend vs next week 05/27: Left VATS total pulmonary decortication 05/31: reg diet intake ~25% 06/01: reg diet intake ~50% per charting, removed pleural drain Problem List[1] Past Medical History[2] Surgical History[3] Allergies: Patient has no known allergies. LABS: Results from last 7 days Lab Units 06/02/25 0329 06/01/25 0410 05/31/25 0457 05/30/25 0347 05/29/25 0355 05/28/25 0459 05/27/25 0452 GLUCOSE mg/dL 94 143* 99 135* 160* 168* 154* BUN mg/dL 14 12 11 11 15 14 12 CREATININE mg/dL 0.51* 0.49* 0.44* 0.45* 0.46* 0.46* 0.46* SODIUM mmol/L 136 137 137 137 135* 133* 135* POTASSIUM mmol/L 4.3 4.2 4.1 4.3 4.1 4.3 4.2 CHLORIDE mmol/L 104 103 104 104 103 102 103 CO2 mmol/L 23 23 24 25 24 23 23 CALCIUM mg/dL 8.4* 8.2* 8.2* 7.8* 7.7* 7.5* 8.0* PHOSPHORUS mg/dL 4.3 3.8 3.4 3.4 2.9 2.9 3.3 MAGNESIUM mg/dL 1.9 2.0 1.9 2.0 1.8* 1.9 2.0 Results from last 7 days Lab Units 06/02/2532806/01/25 0410 05/31/257 05/30/257 05/29/25 03505/28/259 05/27/25 0452 WBC 10*3/uL 8.73 7.85 8.86 9.27 13.07* 15.74* 14.09* HEMOGLOBIN g/dL 9.3* 9.3* 9.6* 8.9* 9.3* 9.8* 9.2* HEMATOCRIT % 28.8* 27.8* 29.6* 26.9* 28.4* 29.5* 28.2* PLATELETS 10*3/uL 576* 567* 520* 475* 469* 538* 584* Results from last 7 days Lab Units 06/02/2532806/01/250 05/31/257 05/30/257 05/29/2535405/28/259 05/27/25 0452 ALT U/L 16 13 12 9* 8* 10 12 AST U/L 19 20 19 20 11 14 15 ALKALINE PHOSPHATASE U/L 91 89 91 85 81 77 83 BILIRUBIN TOTAL mg/dL <0.2* <0.2* 0.2 0.3 0.4 0.4 0.5 ALBUMIN g/dL 2.1* 2.4* 2.2* 2.0* 2.0* 1.9* 2.1* Nutrition Labs: Lab Results Component Value Date TRIG 92 05/30/2025 BILITOT <0.2 (L) 06/02/2025 ALBUMIN 2.1 (L) 06/02/2025 PREALBUMIN 3.3 (L) 05/16/2025 HGBA1C 5.4 12/05/2020 CRP 1.5 12/07/2020 Microbiology Results Procedure Component Value Units Date/Time Blood Culture (Aerobic/Anaerobet Set) [[id number]] Collected: 05/14/25 0232 Order Status: Completed Specimen: Blood from Wrist, Left Updated: 05/19/25 0601 Culture No growth at day 5 Narrative: Low blood volume submitted, results may be compromised Blood Culture (Aerobic/Anaerobet Set) [[id number]] Collected: 05/14/25 0232 Order Status: Completed Specimen: Blood from Wrist, Right Updated: 05/19/25 0551 Culture No growth at day 5 Narrative: Low blood volume submitted, results may be compromised Body Fluid Culture and Gram Stain [[id number]] (Abnormal) (Susceptibility) Collected: 05/14/25 1647 Order Status: Completed Specimen: Body Fluid (specify site): Updated: 05/18/25 1436 Culture Heavy Growth 4+ Streptococcus constellatus Comment: This isolate has been identified using the FDA Approved [employer] [place] System The organism value for this result has been updated. These results have been appended to the previously preliminary verified report. Edited result: Previously reported as Streptococcus species on 05/15/2025 at 1553 EST. 1+ Haemophilus parainfluenzae Comment: This isolate has been identified using the FDA Approved [employer] [place] System The organism value for this result has been updated. These results have been appended to the previously preliminary verified report. Gram Stain Result Numerous Gram positive cocci in pairs and chains Numerous Gram negative rods Numerous Polymorphonuclear leukocytes Susceptibility Streptococcus constellatus ETEST Penicillin G 0.094 Susceptible Susceptibility Haemophilus parainfluenzae Method Not Specified Beta Lactamase Negative Negative Susceptibility Comments Haemophilus parainfluenzae This organism is predictably susceptible to ampicillin or amoxicillin. Vitals: Visit Vitals BP 128/75 (BP Location: Left arm, Patient Position: Lying) Pulse 94 Temp 36.6 ??C (97.9 ??F) (Oral) Resp 15 [place] Coma Scale Score: 15 Melchor Scale Score: 18 Oxygen Therapy: None (Room air) Skin Integrity: Bruising, Redness, Other (Comment) (bilateral chest tube removal sites) Edema: Generalized Wt Readings from Last 3 Encounters: 06/02/25 69.5 kg (153 lb 3.5 oz) 04/30/25 70.9 kg (156 lb 4.9 oz) 04/23/25 72.5 kg (159 lb 13.3 oz) Current Diet Order: Dietary Orders (From admission, onward) Start Ordered 05/30/25 0831 Oral nutrition supplements (Adult Diet Panel) Until discontinued Question Answer Comment Supplement frequency: All meals All meals supplement: Boost Very High Calorie Griffin All meals supplement: Magic Cup Butter Pecan Quantity for All Meals of Magic Cup Butter Pecan One Quantity for All Meals of Boost Very High Calorie - Griffin One 05/30/25 0830 05/27/252212 Adult diet Diet texture: Regular (Adult Diet Panel) Diet effective now References: IDDSI Diet Texture Guide Question: Diet texture Answer: Regular 05/27/252212 Current Medications Current Scheduled Medications[4] Current Continuous Medications[5] Current Anthropometrics: Admit weight: 70.6 kg Height: 162.6 cm (5' 4 ) [place] body weight: 54.7 kg (120 lb 9.5 oz) Adjusted ideal body weight: 60.6 kg (133 lb 10.3 oz) (129%) of IBW Body mass index is 26.3 kg/m??. Adjusted wt: 58.7 kg (if over 125% of IBW) CENTRAL IV Access: PICC (05/20/25) Estimated Nutritional Needs: HBE: 1161 kcal/day Stress Factor: 1.2 - 1.3 Total Calories/day: 1393 - 1510 Protein (amino acids): 1.3 - 1.7 grams/kg Protein (Amino acids): 76.3 - 99.8 grams/day Measured Energy Needs: Respiratory Quotient: 06/02/2025 Plan/Recommendation: Labs reviewed. Continue goal TPN as below GOAL TPN: DEXTROSE: 18% (281 g/day CHO) AMINO ACIDS: 6% (93.6 g/day - 1.59 g/adjusted kg/day Amino acids), Na 100 mEq/L @ 65 ml/hr, with 30mg/day thiamine, MVI, and Trace elements Every other day 250ml 20% SMOF lipids 1579 Total kcal/day - 26.9 kcal/adjusted kg/day Replace electrolytes outside of TPN Calcium and/or Phosphorus supplements MUST be in a separate line from the TPN to avoid precipitation Obtain BMP, magnesium, and Phos daily x 3days and then at least twice weekly Obtain LFT and TGLY weekly I have monitored the TPN therapy, including the labs, and have communicated any modifications with the primary medical/surgical team. Continue current TPN formula and lipid regimen as above. I have communicated the TPN plan with the IV room. Thank you, Anni Iqbal, PharmD, [facility] [employer] [facility] TPN Pharmacist available on [employer] Secure Chat [1] Patient Active Problem List Diagnosis CN III palsy, left Pituitary adenoma (CMS/HCC) IPMN (intraductal papillary mucinous neoplasm) Abnormal blood electrolyte level HLD (hyperlipidemia) History of CVA (cerebrovascular accident) On total parenteral nutrition (TPN) Peripancreatic fluid collection Abdominal pain Pleural effusion HTN (hypertension) Vascular problem Pancreatic cyst Pleural effusion associated with pulmonary infection [2] Past Medical History: Diagnosis Date Cranial nerve III palsy High cholesterol Leukocytosis 03/31/2025 Down trending Daily CBC Abx: fidaxomicin (changed to Vancomycin due to cost on day of dc (03/30-04/09) levofloxacin/flagyl (03/30-04/12) Zosyn 03/29-03/30 zosyn [03/20-] x48h post-op Cx: GI panel/C. Diff: +GDH- Toxin, all other negative (03/30) Pancreatic cyst Unspecified injury of unspecified wrist, hand and finger(s), initial encounter Hand injury [3] Past Surgical History: Procedure Laterality Date CYSTOSCOPY ENDOSCOPY EXTERNAL - ECG EXTERNAL - ECG [4] acetaminophen, 1,000 mg, Oral, q8h aspirin, 81 mg, Oral, Daily enoxaparin, 40 mg, Subcutaneous, Daily fat emulsion fish/plant based, 250 mL, Intravenous, Every other day gabapentin, 300 mg, Oral, BID insulin regular, 8 Units, Subcutaneous, q6h KHUSHI insulin regular, 0-10 Units, Subcutaneous, q6h KHUSHI Lidocaine, 1 patch, Apply externally, q24h methocarbamol, 1,000 mg, Oral, 4x daily nystatin, 1 Application, Topical, BID pantoprazole, 40 mg, Oral, Daily senna-docusate, 1 tablet, Oral, Nightly sodium chloride, 10 mL, Intravenous, q12h sodium chloride, 10 mL, Intravenous, q12h sodium chloride, 3 mL, Nebulization, BID [5] Adult 2-in-1 TPN, 65 mL/hr, Last Rate: 65 mL/hr (06/01/25 0704) * Care Plan - Franchesca Ybarra RN - 06/02/2025 1:40 AM EST Problem: Adult Inpatient Plan of Care Goal: Patient-Specific Goal (Individualized) Outcome: Ongoing, Progressing Goal: Optimal Comfort and Wellbeing Outcome: Ongoing, Progressing Intervention: Monitor Pain and Promote Comfort Flowsheets (Taken 06/01/20251999) Pain Management Interventions: medication (see MAR) relaxation techniques promoted rest Intervention: Provide Person-Centered Care Flowsheets (Taken 06/01/20251999) Trust Relationship/Rapport: care explained choices provided emotional support provided empathic listening provided questions answered thoughts/feelings acknowledged reassurance provided questions encouraged Problem: Pain Acute Goal: Optimal Pain Control and Function Outcome: Ongoing, Progressing Intervention: Optimize Psychosocial Wellbeing Flowsheets (Taken 06/01/20251999) Supportive Measures: active listening utilized verbalization of feelings encouraged relaxation techniques promoted Diversional Activities: television smartphone Spiritual Activities Assistance: affirmation provided personal rituals encouraged hope instilled Intervention: Develop Pain Management Plan Flowsheets (Taken 06/01/20251999) Pain Management Interventions: medication (see MAR) relaxation techniques promoted rest Intervention: Prevent or Manage Pain Flowsheets (Taken 06/01/20251999) Sensory Stimulation Regulation: quiet environment promoted care clustered lighting decreased Complementary Therapy: essential oils utilized Bowel Elimination Promotion: adequate fluid intake promoted ambulation promoted commode/bedpan at bedside Sleep/Rest Enhancement: awakenings minimized relaxation techniques promoted room darkened noise level reduced consistent schedule promoted family presence promoted regular sleep/rest pattern promoted Medication Review/Management: medications reviewed Problem: Fall Injury Risk Goal: Absence of Fall and Fall-Related Injury Outcome: Ongoing, Progressing Intervention: Identify and Manage Contributors Flowsheets (Taken 06/01/20251999) Medication Review/Management: medications reviewed Self-Care Promotion: independence encouraged BADL personal objects within reach Problem: Skin Injury Risk Increased Goal: Skin Health and Integrity Outcome: Ongoing, Progressing Intervention: Optimize Skin Protection Flowsheets (Taken 06/01/20251999) Pressure Reduction Techniques: frequent weight shift encouraged Pressure Reduction Devices: positioning supports utilized Intervention: Promote and Optimize Oral Intake Flowsheets (Taken 06/01/20251999) Oral Nutrition Promotion: physical activity promoted rest periods promoted social interaction promoted Nutrition Interventions: food preferences provided meals from home/family encouraged Problem: Infection Goal: Absence of Infection Signs and Symptoms Outcome: Ongoing, Progressing Intervention: Prevent or Manage Infection Flowsheets (Taken 06/01/20251999) Infection Management: aseptic technique maintained Fever Reduction/Comfort Measures: lightweight clothing lightweight bedding * Care Plan - Nathalie Valerio RN - 06/01/2025 12:40 PM EST Problem: Adult Inpatient Plan of Care Goal: Patient-Specific Goal (Individualized) Outcome: Ongoing, Progressing Flowsheets (Taken 06/01/2025 0800) Patient/Family-Specific Goals (Include Timeframe): provide pain relief for patient throughout shift Individualized Care Needs: pain management Anxieties, Fears or Concerns: pain Goal: Optimal Comfort and Wellbeing Outcome: Ongoing, Progressing Intervention: Monitor Pain and Promote Comfort Flowsheets (Taken 06/01/2025 1238) Pain Management Interventions: medication (see MAR) Intervention: Provide Person-Centered Care Flowsheets (Taken 05/31/2025 1639) Trust Relationship/Rapport: care explained choices provided emotional support provided questions answered questions encouraged Problem: Pain Acute Goal: Optimal Pain Control and Function Outcome: Ongoing, Progressing Intervention: Optimize Psychosocial Wellbeing Flowsheets Taken 06/01/2025 1238 Diversional Activities: smartphone television Spiritual Activities Assistance: affirmation provided Taken 05/31/2025 1639 Supportive Measures: active listening utilized self-care encouraged positive reinforcement provided Intervention: Develop Pain Management Plan Flowsheets (Taken 06/01/2025 1238) Pain Management Interventions: medication (see MAR) Intervention: Prevent or Manage Pain Flowsheets Taken 06/01/2025 1238 Medication Review/Management: medications reviewed Taken 05/31/2025 1639 Sensory Stimulation Regulation: care clustered quiet environment promoted Bowel Elimination Promotion: adequate fluid intake promoted ambulation promoted commode/bedpan at bedside Sleep/Rest Enhancement: family presence promoted consistent schedule promoted natural light exposure provided Problem: Fall Injury Risk Goal: Absence of Fall and Fall-Related Injury Outcome: Ongoing, Progressing Intervention: Identify and Manage Contributors Flowsheets Taken 06/01/2025 1238 Medication Review/Management: medications reviewed Taken 05/31/2025 1639 Self-Care Promotion: independence encouraged BADL personal objects within reach Intervention: Promote Injury-Free Environment Flowsheets (Taken 06/01/2025 0800) Safety Promotion/Fall Prevention: activity supervised assistive device/personal items within reach clutter-free environment maintained fall prevention program maintained lighting adjusted mobility aid in reach nonskid shoes/slippers when out of bed room organization consistent safety round/check completed toileting scheduled Problem: Skin Injury Risk Increased Goal: Skin Health and Integrity Outcome: Ongoing, Progressing Intervention: Optimize Skin Protection Flowsheets (Taken 06/01/2025 1238) Activity Management: up in chair Pressure Reduction Techniques: frequent weight shift encouraged Pressure Reduction Devices: positioning supports utilized Skin Protection: transparent dressing maintained Head of Bed (HOB) Positioning: HOB at 60-90 degrees Intervention: Promote and Optimize Oral Intake Flowsheets (Taken 06/01/2025 1238) Oral Nutrition Promotion: physical activity promoted Nutrition Interventions: food preferences provided Problem: Infection Goal: Absence of Infection Signs and Symptoms Outcome: Ongoing, Progressing Intervention: Prevent or Manage Infection Flowsheets (Taken 06/01/2025 1238) Infection Management: aseptic technique maintained Fever Reduction/Comfort Measures: lightweight bedding lightweight clothing Isolation Precautions: precautions maintained * Progress Notes - Rosa M New, PharmD - 06/01/2025 11:11 AM EST Images from the original note were not included. Pharmacist TPN Progress Note Patient: Dot Dale Age: 69 y.o. Admission Date: [id number] Subjective/Objective/Hospital Course: 69 y.o. female with PMHx significant for IPMN s/p distal pancreatectomy and splenectomy c/b post-op pancreatic leak requiring extended period with surgical drainin place (removed on 04/23). Presented to the [facility] on 05/13/2025 with abdominal pain, rigors, diaphoresis, and overall poor intake found to have peripancreatic fluid collection. Patient has been on TPN previously (~03/30-04/25). 05/20: Patient agreeable to PICC and TPN, switched appetite stimulants (megestrol --> dronabinol), CT scan pending 05/21: CT abd/pelv demonstrates loculated large left pleural effusion, chest tube placement with IR 05/23: possible washout with TSS this weekend vs next week 05/27: Left VATS total pulmonary decortication 05/31: reg diet intake ~25% 06/01: reg diet intake ~50% per charting Problem List[1] Past Medical History[2] Surgical History[3] Allergies: Patient has no known allergies. LABS: Results from last 7 days Lab Units 06/01/25 04105/31/25 04505/30/2534605/29/25 0355 05/28/25 04505/27/25 04505/26/25 0550 GLUCOSE mg/dL 143* 99 135* 160* 168* 154* 170* BUN mg/dL 12 11 11 15 14 12 12 CREATININE mg/dL 0.49* 0.44* 0.45* 0.46* 0.46* 0.46* 0.44* SODIUM mmol/L 137 137 137 135* 133* 135* 133* POTASSIUM mmol/L 4.2 4.1 4.3 4.1 4.3 4.2 4.2 CHLORIDE mmol/L 103 104 104 103 102 103 101 CO2 mmol/L 23 24 25 24 23 23 21* CALCIUM mg/dL 8.2* 8.2* 7.8* 7.7* 7.5* 8.0* 8.0* PHOSPHORUS mg/dL 3.8 3.4 3.4 2.9 2.9 3.3 3.6 MAGNESIUM mg/dL 2.0 1.9 2.0 1.8* 1.9 2.0 1.9 Results from last 7 days Lab Units 06/01/25 04105/31/25 04505/30/2534605/29/2535405/28/2545805/27/25 04505/26/25 0550 WBC 10*3/uL 7.85 8.86 9.27 13.07* 15.74* 14.09* 15.57* HEMOGLOBIN g/dL 9.3* 9.6* 8.9* 9.3* 9.8* 9.2* 9.7* HEMATOCRIT % 27.8* 29.6* 26.9* 28.4* 29.5* 28.2* 29.7* PLATELETS 10*3/uL 567* 520* 475* 469* 538* 584* 586* Results from last 7 days Lab Units 06/01/25 04105/31/25 0457 05/30/25 0347 05/29/25 0355 05/28/25 0459 05/27/25 0452 05/26/25 0550 ALT U/L 13 12 9* 8* 10 12 14 AST U/L 20 19 20 11 14 15 22 ALKALINE PHOSPHATASE U/L 89 91 85 81 77 83 86 BILIRUBIN TOTAL mg/dL <0.2* 0.2 0.3 0.4 0.4 0.5 0.5 ALBUMIN g/dL 2.4* 2.2* 2.0* 2.0* 1.9* 2.1* 2.2* Nutrition Labs: Lab Results Component Value Date TRIG 92 05/30/2025 BILITOT <0.2 (L) 06/01/2025 ALBUMIN 2.4 (L) 06/01/2025 PREALBUMIN 3.3 (L) 05/16/2025 HGBA1C 5.4 12/05/2020 CRP 1.5 12/07/2020 Microbiology Results Procedure Component Value Units Date/Time Blood Culture (Aerobic/Anaerobet Set) [[id number]] Collected: 05/14/25 023 Order Status: Completed Specimen: Blood from Wrist, Left Updated: 05/19/25 0601 Culture No growth at day 5 Narrative: Low blood volume submitted, results may be compromised Blood Culture (Aerobic/Anaerobet Set) [[id number]] Collected: 05/14/25 0232 Order Status: Completed Specimen: Blood from Wrist, Right Updated: 05/19/25 0551 Culture No growth at day 5 Narrative: Low blood volume submitted, results may be compromised Body Fluid Culture and Gram Stain [[id number]] (Abnormal) (Susceptibility) Collected: 05/14/25 1647 Order Status: Completed Specimen: Body Fluid (specify site): Updated: 05/18/25 1436 Culture Heavy Growth 4+ Streptococcus constellatus Comment: This isolate has been identified using the FDA Approved [employer] System The organism value for this result has been updated. These results have been appended to the previously preliminary verified report. Edited result: Previously reported as Streptococcus species on 05/15/2025 at 1553 EST. 1+ Haemophilus parainfluenzae Comment: This isolate has been identified using the FDA Approved [employer] System The organism value for this result has been updated. These results have been appended to the previously preliminary verified report. Gram Stain Result Numerous Gram positive cocci in pairs and chains Numerous Gram negative rods Numerous Polymorphonuclear leukocytes Susceptibility Streptococcus constellatus ETEST Penicillin G 0.094 Susceptible Susceptibility Haemophilus parainfluenzae Method Not Specified Beta Lactamase Negative Negative Susceptibility Comments Haemophilus parainfluenzae This organism is predictably susceptible to ampicillin or amoxicillin. Vitals: Visit Vitals BP 138/84 (BP Location: Left arm, Patient Position: Lying) Pulse 94 Temp 36.4 ??C (97.5 ??F) (Oral) Resp 15 [place] Coma Scale Score: 15 Melchor Scale Score: 19 Oxygen Therapy: None (Room air) Skin Integrity: Bruising, Redness, Rash Edema: Generalized Wt Readings from Last 3 Encounters: 06/01/25 67.8 kg (149 lb 7.6 oz) 04/30/25 70.9 kg (156 lb 4.9 oz) 04/23/25 72.5 kg (159 lb 13.3 oz) Current Diet Order: Dietary Orders (From admission, onward) Start Ordered 05/30/25 0831 Oral nutrition supplements (Adult Diet Panel) Until discontinued Question Answer Comment Supplement frequency: All meals All meals supplement: Boost Very High Calorie Griffin All meals supplement: Magic Cup Butter Pecan Quantity for All Meals of Magic Cup Butter Pecan One Quantity for All Meals of Boost Very High Calorie - Griffin One 05/30/25 0830 05/27/25 221 Adult diet Diet texture: Regular (Adult Diet Panel) Diet effective now References: IDDSI Diet Texture Guide Question: Diet texture Answer: Regular 05/27/252212 Current Medications Current Scheduled Medications[4] Current Continuous Medications[5] Current Anthropometrics: Admit weight: 70.6 kg Height: 162.6 cm (5' 4 ) [place] body weight: 54.7 kg (120 lb 9.5 oz) Adjusted ideal body weight: 59.9 kg (132 lb 2.3 oz) (129%) of IBW Body mass index is 25.66 kg/m??. Adjusted wt: 58.7 kg (if over 125% of IBW) CENTRAL IV Access: PICC (05/20/25) Estimated Nutritional Needs: HBE: 1161 kcal/day Stress Factor: 1.2 - 1.3 Total Calories/day: 1393 - 1626 Protein (amino acids): 1.3 - 1.7 grams/kg Protein (Amino acids): 76.3 - 99.8 grams/day Measured Energy Needs: Respiratory Quotient: 06/01/2025 Plan/Recommendation: Labs reviewed. Continue goal TPN. GOAL TPN: DEXTROSE: 18% (281 g/day CHO) AMINO ACIDS: 6% (93.6 g/day - 1.59 g/adjusted kg/day Amino acids), Na 100 mEq/L @ 65 ml/hr, with 30mg/day thiamine, MVI, and Trace elements Every other day 250ml 20% SMOF lipids 1579 Total kcal/day - 26.9 kcal/adjusted kg/day Replace electrolytes outside of TPN Calcium and/or Phosphorus supplements MUST be in a separate line from the TPN to avoid precipitation Obtain BMP, magnesium, and Phos daily x 3days and then at least twice weekly Obtain LFT and TGLY weekly I have monitored the TPN therapy, including the labs, and have communicated any modifications with the primary medical/surgical team. Continue current TPN formula and lipid regimen as above. I have communicated the TPN plan with the IV room. Thank you, Rosa M New PharmD, [facility] Pharmacist [1] Patient Active Problem List Diagnosis CN III palsy, left Pituitary adenoma (CMS/HCC) IPMN (intraductal papillary mucinous neoplasm) Abnormal blood electrolyte level HLD (hyperlipidemia) History of CVA (cerebrovascular accident) On total parenteral nutrition (TPN) Peripancreatic fluid collection Abdominal pain Pleural effusion HTN (hypertension) Vascular problem Pancreatic cyst Pleural effusion associated with pulmonary infection [2] Past Medical History: Diagnosis Date Cranial nerve III palsy High cholesterol Leukocytosis 03/31/2025 Down trending Daily CBC Abx: fidaxomicin (changed to Vancomycin due to cost on day of dc (03/30-04/09) levofloxacin/flagyl (03/30-04/12) Zosyn 03/29-03/30 zosyn [03/20-] x48h post-op Cx: GI panel/C. Diff: +GDH- Toxin, all other negative (03/30) Pancreatic cyst Unspecified injury of unspecified wrist, hand and finger(s), initial encounter Hand injury [3] Past Surgical History: Procedure Laterality Date CYSTOSCOPY ENDOSCOPY EXTERNAL - ECG EXTERNAL - ECG [4] acetaminophen, 1,000 mg, Oral, q8h aspirin, 81 mg, Oral, Daily enoxaparin, 40 mg, Subcutaneous, Daily fat emulsion fish/plant based, 250 mL, Intravenous, Every other day gabapentin, 300 mg, Oral, BID insulin regular, 8 Units, Subcutaneous, q6h KHUSHI insulin regular, 0-10 Units, Subcutaneous, q6h KHUSHI Lidocaine, 1 patch, Apply externally, q24h methocarbamol, 1,000 mg, Oral, 4x daily nystatin, 1 Application, Topical, BID pantoprazole, 40 mg, Oral, Daily senna-docusate, 1 tablet, Oral, Nightly sodium chloride, 10 mL, Intravenous, q12h sodium chloride, 10 mL, Intravenous, q12h sodium chloride, 3 mL, Nebulization, BID [5] Adult 2-in-1 TPN, 65 mL/hr, Last Rate: 65 mL/hr (06/01/25 0700) * Progress Notes - Stanley Gomez MD - 06/01/2025 9:59 AM EST Images from the original note were not included. [facility] Department of Surgery Section of Thoracic Surgery Progress Note 06/01/2025 Dot Dale History of Present Illness Dot Dale is a 69 y.o. female 5 Days Post-Op Left VATS total pulmonary decortication Procedures this admission 05/27/25: Diagnostic and therapeutic flexible bronchoscopy, Left VATS total pulmonary decortication Events of last 24 hours No acute events. Ambulated. Jaya drain 60mL. CXR stable. Relevant review of systems was obtained as able and is negative unless stated above in HPI. Physical Exam: Visit Vitals BP 138/84 (BP Location: Left arm, Patient Position: Lying) Pulse 94 Temp 36.4 ??C (97.5 ??F) (Oral) Ht 1.626 m (5' 4 ) Wt 67.8 kg (149 lb 7.6 oz) SpO2 100% BMI 25.66 kg/m?? GENERAL: chronically ill appearing, NAD HENT: Atraumatic, normocephalic RESP/CHEST: symmetric chest rise, non-labored. Left sided chest tubes x2 with serosanguinous output. No air leak CARD: regular rate and rhythm, appears well perfused Extremities: No lower extremity edema present. GI: soft, non-distended NEURO: AAOx4. Motor intact and no focal deficits PSYCH: Mood and affect congruent and appropriate to situation Intake/Output Summary (Last 24 hours) at 06/01/2025 0959 Last data filed at 06/01/2025 0700 Gross per 24 hour Intake 2113.73 ml Output 2560 ml Net -446.27 ml Lines/Drains/Tubes: Patient Lines/Drains/Airways Status Active Airway None Output by Drain (mL) 05/30/25 07 - 05/30/25 1859 05/30/25 1900 - 05/31/25 0659 05/31/25 07 - 05/31/25 1859 05/31/25 1900 - 06/01/25 0659 06/01/25 0700 - 06/01/25 0959 Requested LDAs do not have output data documented. Labs in last 18 hours: CBC WBC 7.85 Hb 9.3 (L) Plt 567 (H) Hct 27.8 (L) ANC ?? INR ??, PTT ??, Anti-Xa ?? MCV 90 BMP Na 137 Cl 103 BUN 12 Glu 143 (H) K 4.2 Co2 23 Cr 0.49 (L) Ca 8.2 (L) iCa ?? Mg 2.0, Phos 3.8 Lactate ?? LFT AST 20 AlkPhos 89 T Prot 6.3 ALK 13 Bili <0.2 (L) Alb ?? D.Bili ?? Lab Trends: H/H Results from last 7 days Lab Units 06/01/25 0410 05/31/25 0457 05/30/25 0347 HEMOGLOBIN g/dL 9.3* 9.6* 8.9* HEMATOCRIT % 27.8* 29.6* 26.9* INR Cr Results from last 7 days Lab Units 06/01/25 0410 05/31/25 0457 05/30/25 0347 CREATININE mg/dL 0.49* 0.44* 0.45* Medications reviewed. Vital signs reviewed. Labs reviewed. Radiography reviewed. CXR: stable aeration, left chest tube in place Assessment and Plan: Principal Problem: Peripancreatic fluid collection Active Problems: On total parenteral nutrition (TPN) Abdominal pain HTN (hypertension) Vascular problem Pancreatic cyst Pleural effusion associated with pulmonary infection Pituitary adenoma (CMS/HCC) Pleural effusion Present on Admission: Peripancreatic fluid collection On total parenteral nutrition (TPN) Pituitary adenoma (CMS/HCC) Dot Dale is a 69 y.o. female 5 Days Post-Op Left VATS total pulmonary decortication. Chest tubeswith serosanguinous output, no air leak. Overall recovering well postoperatively. Plan: - Remove pleural jaya drain - 4hr CXR - will need two week follow up with Dr. Griggs on discharge - Remainder of care per primary team Thoracic Surgery [phone] Cosigned by Thang Aguilar DO at 06/01/2025 2:30 PM EST Associated attestation - Thang Aguilar DO - 06/01/2025 2:30 PM EST I saw and evaluated the patient with the resident/fellow. I discussed the case with the resident/fellow and agree with the findings and plan as documented. * Care Plan - Nathalie Valerio RN - 05/31/2025 4:42 PM EST Problem: Adult Inpatient Plan of Care Goal: Patient-Specific Goal (Individualized) Outcome: Ongoing, Progressing Flowsheets (Taken 05/31/2025 0930) Patient/Family-Specific Goals (Include Timeframe): provide pain management for patient through out shift Individualized Care Needs: pain management Anxieties, Fears or Concerns: pain Goal: Optimal Comfort and Wellbeing Outcome: Ongoing, Progressing Intervention: Monitor Pain and Promote Comfort Flowsheets (Taken 05/31/2025 1639) Pain Management Interventions: medication (see MAR) Intervention: Provide Person-Centered Care Flowsheets (Taken 05/31/2025 1639) Trust Relationship/Rapport: care explained choices provided emotional support provided questions answered questions encouraged Problem: Pain Acute Goal: Optimal Pain Control and Function Outcome: Ongoing, Progressing Intervention: Optimize Psychosocial Wellbeing Flowsheets (Taken 05/31/2025 1639) Supportive Measures: active listening utilized self-care encouraged positive reinforcement provided Diversional Activities: smartphone television Spiritual Activities Assistance: personal rituals encouraged Intervention: Develop Pain Management Plan Flowsheets (Taken 05/31/2025 1639) Pain Management Interventions: medication (see MAR) Intervention: Prevent or Manage Pain Flowsheets (Taken 05/31/2025 1639) Sensory Stimulation Regulation: care clustered quiet environment promoted Bowel Elimination Promotion: adequate fluid intake promoted ambulation promoted commode/bedpan at bedside Sleep/Rest Enhancement: family presence promoted consistent schedule promoted natural light exposure provided Medication Review/Management: medications reviewed Problem: Fall Injury Risk Goal: Absence of Fall and Fall-Related Injury Outcome: Ongoing, Progressing Intervention: Identify and Manage Contributors Flowsheets (Taken 05/31/2025 163) Medication Review/Management: medications reviewed Self-Care Promotion: independence encouraged BADL personal objects within reach Intervention: Promote Injury-Free Environment Flowsheets (Taken 05/31/2025 0930) Safety Promotion/Fall Prevention: activity supervised assistive device/personal items within reach clutter-free environment maintained fall prevention program maintained lighting adjusted mobility aid in reach nonskid shoes/slippers when out of bed room organization consistent safety round/check completed toileting scheduled Problem: Skin Injury Risk Increased Goal: Skin Health and Integrity Outcome: Ongoing, Progressing Intervention: Optimize Skin Protection Flowsheets Taken 05/31/2025 163 Pressure Reduction Techniques: frequent weight shift encouraged Pressure Reduction Devices: positioning supports utilized Skin Protection: transparent dressing maintained incontinence pads utilized Taken 05/31/2025 0930 Activity Management: activity adjusted per tolerance ambulated in room Intervention: Promote and Optimize Oral Intake Flowsheets (Taken 05/31/2025 1639) Oral Nutrition Promotion: physical activity promoted Nutrition Interventions: meal set-up provided Problem: Infection Goal: Absence of Infection Signs and Symptoms Outcome: Ongoing, Progressing Intervention: Prevent or Manage Infection Flowsheets (Taken 05/31/2025 1639) Infection Management: aseptic technique maintained Fever Reduction/Comfort Measures: lightweight bedding lightweight clothing Isolation Precautions: precautions maintained * Progress Notes - Rosa M New, PharmD - 05/31/2025 1:16 PM EST Images from the original note were not included. Pharmacist TPN Progress Note Patient: Dot Dale Age: 69 y.o. Admission Date: [id number] Subjective/Objective/Hospital Course: 69 y.o. female with PMHx significant for IPMN s/p distal pancreatectomy and splenectomy c/b post-op pancreatic leak requiring extended period with surgical drainin place (removed on 04/23). Presented to the [facility] on 05[facility]25 with abdominal pain, rigors, diaphoresis, and overall poor intake found to have peripancreatic fluid collection. Patient has been on TPN previously (~03/30-04/25). 05/20: Patient agreeable to PICC and TPN, switched appetite stimulants (megestrol --> dronabinol), CT scan pending 05/21: CT abd/pelv demonstrates loculated large left pleural effusion, chest tube placement with IR 05/23: possible washout with TSS this weekend vs next week 05/27: Left VATS total pulmonary decortication 05/31: reg diet intake ~25% Problem List[1] Past Medical History[2] Surgical History[3] Allergies: Patient has no known allergies. LABS: Results from last 7 days Lab Units 05/31/25 0457 05/30/25 0347 05/29/25 0355 05/28/25 0459 05/27/25 0452 05/26/25 0550 05/25/25 0507 GLUCOSE mg/dL 99 135* 160* 168* 154* 170* 151* BUN mg/dL 11 11 15 14 12 12 12 CREATININE mg/dL 0.44* 0.45* 0.46* 0.46* 0.46* 0.44* 0.42* SODIUM mmol/L 137 137 135* 133* 135* 133* 135* POTASSIUM mmol/L 4.1 4.3 4.1 4.3 4.2 4.2 4.2 CHLORIDE mmol/L 104 104 103 102 103 101 104 CO2 mmol/L 24 25 24 23 23 21* 22 CALCIUM mg/dL 8.2* 7.8* 7.7* 7.5* 8.0* 8.0* 8.0* PHOSPHORUS mg/dL 3.4 3.4 2.9 2.9 3.3 3.6 2.7 MAGNESIUM mg/dL 1.9 2.0 1.8* 1.9 2.0 1.9 1.9 Results from last 7 days Lab Units 05/31/25 0457 05/30/25 0347 05/29/25 0355 05/28/25 0459 05/27/25 0452 05/26/25 0550 05/25/25 0507 WBC 10*3/uL 8.86 9.27 13.07* 15.74* 14.09* 15.57* 15.22* HEMOGLOBIN g/dL 9.6* 8.9* 9.3* 9.8* 9.2* 9.7* 10.0* HEMATOCRIT % 29.6* 26.9* 28.4* 29.5* 28.2* 29.7* 30.2* PLATELETS 10*3/uL 520* 475* 469* 538* 584* 586* 538* Results from last 7 days Lab Units 05/31/25 0457 05/30/25 0347 05/29/25 0355 05/28/25 0459 05/27/25 0452 05/26/25 0550 05/25/25 0507 ALT U/L 12 9* 8* 10 12 14 13 AST U/L 19 20 11 14 15 22 20 ALKALINE PHOSPHATASE U/L 91 85 81 77 83 86 89 BILIRUBIN TOTAL mg/dL 0.2 0.3 0.4 0.4 0.5 0.5 0.4 ALBUMIN g/dL 2.2* 2.0* 2.0* 1.9* 2.1* 2.2* 2.4* Nutrition Labs: Lab Results Component Value Date TRIG 92 05/30/2025 BILITOT 0.2 05/31/2025 ALBUMIN 2.2 (L) 05/31/2025 PREALBUMIN 3.3 (L) 05/16/2025 HGBA1C 5.4 12/05/2020 CRP 1.5 12/07/2020 Microbiology Results Procedure Component Value Units Date/Time Blood Culture (Aerobic/Anaerobet Set) [[id number]] Collected: 05/14/25 0232 Order Status: Completed Specimen: Blood from Wrist, Left Updated: 05/19/25 0601 Culture No growth at day 5 Narrative: Low blood volume submitted, results may be compromised Blood Culture (Aerobic/Anaerobet Set) [[id number]] Collected: 05/14/25 0232 Order Status: Completed Specimen: Blood from Wrist, Right Updated: 05/19/25 0551 Culture No growth at day 5 Narrative: Low blood volume submitted, results may be compromised Body Fluid Culture and Gram Stain [[id number]] (Abnormal) (Susceptibility) Collected: 05/14/25 1647 Order Status: Completed Specimen: Body Fluid (specify site): Updated: 05/18/25 1436 Culture Heavy Growth 4+ Streptococcus constellatus Comment: This isolate has been identified using the FDA Approved [employer] [place] System The organism value for this result has been updated. These results have been appended to the previously preliminary verified report. Edited result: Previously reported as Streptococcus species on 05/15/2025 at 1553 EST. 1+ Haemophilus parainfluenzae Comment: This isolate has been identified using the FDA Approved [employer] [place] System The organism value for this result has been updated. These results have been appended to the previously preliminary verified report. Gram Stain Result Numerous Gram positive cocci in pairs and chains Numerous Gram negative rods Numerous Polymorphonuclear leukocytes Susceptibility Streptococcus constellatus ETEST Penicillin G 0.094 Susceptible Susceptibility Haemophilus parainfluenzae Method Not Specified Beta Lactamase Negative Negative Susceptibility Comments Haemophilus parainfluenzae This organism is predictably susceptible to ampicillin or amoxicillin. Vitals: Visit Vitals BP 131/78 (BP Location: Right arm, Patient Position: Lying) Pulse 106 Temp 36.9 ??C (98.4 ??F) (Oral) Resp 20 Katie Coma Scale Score: 15 Melchor Scale Score: 19 Oxygen Therapy: None (Room air) Skin Integrity: Other (Comment) (chest tube sites covered by dressing, clean and dry based on what is visible) Edema: Generalized, Right upper extremity, Left upper extremity Wt Readings from Last 3 Encounters: 05/31/25 69 kg (152 lb 1.9 oz) 04/30/25 70.9 kg (156 lb 4.9 oz) 04/23/25 72.5 kg (159 lb 13.3 oz) Current Diet Order: Dietary Orders (From admission, onward) Start Ordered 05/30/25 0831 Oral nutrition supplements (Adult Diet Panel) Until discontinued Question Answer Comment Supplement frequency: All meals All meals supplement: Boost Very High Calorie Griffin All meals supplement: Magic Cup Butter Pecan Quantity for All Meals of Magic Cup Butter Pecan One Quantity for All Meals of Boost Very High Calorie - Griffin One 05/30/2582905/27/252212 Adult diet Diet texture: Regular (Adult Diet Panel) Diet effective now References: IDDSI Diet Texture Guide Question: Diet texture Answer: Regular 05/27/252212 Current Medications Current Scheduled Medications[4] Current Continuous Medications[5] Current Anthropometrics: Admit weight: 70.6 kg Height: 162.6 cm (5' 4 ) [place] body weight: 54.7 kg (120 lb 9.5 oz) Adjusted ideal body weight: 60.4 kg (133 lb 3.2 oz) (129%) of IBW Body mass index is 26.11 kg/m??. Adjusted wt: 58.7 kg (if over 125% of IBW) CENTRAL IV Access: PICC (05/20/25) Estimated Nutritional Needs: HBE: 1161 kcal/day Stress Factor: 1.2 - 1.3 Total Calories/day: 1393 - 1626 Protein (amino acids): 1.3 - 1.7 grams/kg Protein (Amino acids): 76.3 - 99.8 grams/day Measured Energy Needs: Respiratory Quotient: 05/31/2025 Plan/Recommendation: Labs reviewed. Continue goal TPN. GOAL TPN: DEXTROSE: 18% (281 g/day CHO) AMINO ACIDS: 6% (93.6 g/day - 1.59 g/adjusted kg/day Amino acids), Na 100 mEq/L @ 65 ml/hr, with 30mg/day thiamine, MVI, and Trace elements Every other day 250ml 20% SMOF lipids 1579 Total kcal/day - 26.9 kcal/adjusted kg/day Replace electrolytes outside of TPN Calcium and/or Phosphorus supplements MUST be in a separate line from the TPN to avoid precipitation Obtain BMP, magnesium, and Phos daily x 3days and then at least twice weekly Obtain LFT and TGLY weekly I have monitored the TPN therapy, including the labs, and have communicated any modifications with the primary medical/surgical team. Continue current TPN formula and lipid regimen as above. I have communicated the TPN plan with the IV room. Thank you, Rosa M New Pharm[facility], [facility] Pharmacist [1] Patient Active Problem List Diagnosis CN III palsy, left Pituitary adenoma (CMS/HCC) IPMN (intraductal papillary mucinous neoplasm) Abnormal blood electrolyte level HLD (hyperlipidemia) History of CVA (cerebrovascular accident) On total parenteral nutrition (TPN) Peripancreatic fluid collection Abdominal pain Pleural effusion HTN (hypertension) Vascular problem Pancreatic cyst Pleural effusion associated with pulmonary infection [2] Past Medical History: Diagnosis Date Cranial nerve III palsy High cholesterol Leukocytosis 03/31/2025 Down trending Daily CBC Abx: fidaxomicin (changed to Vancomycin due to cost on day of dc (03/30-04/09) levofloxacin/flagyl (03/30-04/12) Zosyn 03/29-03/30 zosyn [03/20-] x48h post-op Cx: GI panel/C. Diff: +GDH- Toxin, all other negative (03/30) Pancreatic cyst Unspecified injury of unspecified wrist, hand and finger(s), initial encounter Hand injury [3] Past Surgical History: Procedure Laterality Date CYSTOSCOPY ENDOSCOPY EXTERNAL - ECG EXTERNAL - ECG [4] acetaminophen, 1,000 mg, Oral, q8h aspirin, 81 mg, Oral, Daily enoxaparin, 40 mg, Subcutaneous, Daily fat emulsion fish/plant based, 250 mL, Intravenous, Every other day gabapentin, 300 mg, Oral, BID insulin regular, 8 Units, Subcutaneous, q6h KHUSHI insulin regular, 0-10 Units, Subcutaneous, q6h KHUSHI ipratropium-albuterol, 3 mL, Nebulization, q6h RT Lidocaine, 1 patch, Apply externally, q24h methocarbamol, 1,000 mg, Oral, 4x daily pantoprazole, 40 mg, Oral, Daily senna-docusate, 1 tablet, Oral, Nightly sodium chloride, 10 mL, Intravenous, q12h sodium chloride, 10 mL, Intravenous, q12h sodium chloride, 3 mL, Nebulization, BID [5] Adult 2-in-1 TPN, 65 mL/hr, Last Rate: 65 mL/hr (05/31/25 0600) * Progress Notes - Jason, Stanley J, MD - 05/31/2025 10:29 AM EST Images from the original note were not included. [facility] Department of Surgery Section of Thoracic Surgery Progress Note 05/31/25 Dot Dale History of Present Illness Dot Dale is a 69 y.o. female 4 Days Post-Op Left VATS total pulmonary decortication Procedures this admission 05/27/25: Diagnostic and therapeutic flexible bronchoscopy, Left VATS total pulmonary decortication Events of last 24 hours No acute events. Ambulated. Cts 70mL total (50 jaya, 20 straight). No Airleak. CXR stable. Relevant review of systems was obtained as able and is negative unless stated above in HPI. Physical Exam: Visit Vitals BP (!) 164/90 (BP Location: Right arm, Patient Position: Lying) Pulse 109 Temp 37.1 ??C (98.8 ??F) (Oral) Ht 1.626 m (5' 4 ) Wt 69 kg (152 lb 1.9 oz) SpO2 95% BMI 26.11 kg/m?? GENERAL: chronically ill appearing, NAD HENT: Atraumatic, normocephalic RESP/CHEST: symmetric chest rise, non-labored. Left sided chest tubes x2 with serosanguinous output. No air leak CARD: regular rate and rhythm, appears well perfused Extremities: No lower extremity edema present. GI: soft, non-distended NEURO: AAOx4. Motor intact and no focal deficits PSYCH: Mood and affect congruent and appropriate to situation Intake/Output Summary (Last 24 hours) at 05/31/2025 1029 Last data filed at 05/31/2025 0600 Gross per 24 hour Intake 3038 ml Output 2795 ml Net 243 ml Lines/Drains/Tubes: Patient Lines/Drains/Airways Status Active Airway None Output by Drain (mL) 05/29/25 07 - 05/29/25 1859 05/29/25 1900 - 05/30/25 0659 05/30/25 0700 - 05/30/25 1859 05/30/25 1900 - 05/31/25 0659 05/31/25 0700 - 05/31/25 1029 Requested LDAs do not have output data documented. Labs in last 18 hours: CBC WBC 8.86 Hb 9.6 (L) Plt 520 (H) Hct 29.6 (L) ANC ?? INR ??, PTT ??, Anti-Xa ?? MCV 88 BMP Na 137 Cl 104 BUN 11 Glu 99 K 4.1 Co2 24 Cr 0.44 (L) Ca 8.2 (L) iCa ?? Mg 1.9, Phos 3.4 Lactate ?? LFT AST 19 AlkPhos 91 T Prot 6.6 ALK 12 Bili 0.2 Alb ?? D.Bili ?? Lab Trends: H/H Results from last 7 days Lab Units 05/31/25 0457 05/30/25 0347 05/29/25 0355 HEMOGLOBIN g/dL 9.6* 8.9* 9.3* HEMATOCRIT % 29.6* 26.9* 28.4* INR Cr Results from last 7 days Lab Units 05/31/25 0457 05/30/25 0347 05/29/25 0355 CREATININE mg/dL 0.44* 0.45* 0.46* Medications reviewed. Vital signs reviewed. Labs reviewed. Radiography reviewed. CXR: stable aeration, left chest tubes in place x2 Assessment and Plan: Principal Problem: Peripancreatic fluid collection Active Problems: On total parenteral nutrition (TPN) Abdominal pain HTN (hypertension) Vascular problem Pancreatic cyst Pleural effusion associated with pulmonary infection Pituitary adenoma (CMS/HCC) Pleural effusion Present on Admission: Peripancreatic fluid collection On total parenteral nutrition (TPN) Pituitary adenoma (CMS/HCC) Dot Dale is a 69 y.o. female 4 Days Post-Op Left VATS total pulmonary decortication. Chest tubeswith serosanguinous output, no air leak. Overall recovering well postoperatively. Plan: - Remove straight chest tube - Continue jaya drain to water seal - Daily CXR - MMPC - No Toradol - Mobilize, IS, Nebs - Strip tubes BID - Remainder of care per primary team Thoracic Surgery [phone] Cosigned by Thang Aguilar DO at 06/01/2025 2:30 PM EST Associated attestation - Thang Aguilar DO - 06/01/2025 2:30 PM EST I saw and evaluated the patient with the resident/fellow. I discussed the case with the resident/fellow and agree with the findings and plan as documented. * Progress Notes - Katlyn Hopkins APRN - 05/30/2025 3:02 PM EST Images from the original note were not included. Department of Surgery Division of Surgical Oncology Surgery Progress Note 05/30/25 Dot Dale Subjective Subjective: HPI 69F with history of IPMN s/p distal panc/spleen c/b post-op pancreatic leak requiring extended period with surgical drain in place (removed on 04/23). Presented with worsening abdominal pain, fever/chills and found to have peripancreatic fluid collection. 03/20/25: distal panc/spleen [Monica] 05/14/25: IR placed abdominal drain 05/27/25: Diagnostic and therapeutic flexible bronchoscopy, Left VATS total pulmonary decortication Interval: Pain not well controlled around CT with any movement. Having frequent BM. Minimal PO diet. CXR improving Edited by: Katlyn Hopkins APRN at 05/30/2025 1502 Review of Systems: Relevant review of systems was obtained as able and is negative unless stated above in HPI. Objective Objective: Vital signs: Vitals: 05/30/25 1204 BP: 133/76 Pulse: 97 Resp: 23 Temp: 37.1 ??C (98.8 ??F) SpO2: 92% Physical Exam: Physical Exam Vitals reviewed. Constitutional: General: She is not in acute distress. Appearance: She is ill-appearing. HENT: Head: Atraumatic. Nose: Nose normal. Mouth/Throat: Mouth: Mucous membranes are dry. Eyes: General: No scleral icterus. Extraocular Movements: Extraocular movements intact. Conjunctiva/sclera: Conjunctivae normal. Cardiovascular: Rate and Rhythm: Normal rate. Pulmonary: Effort: Pulmonary effort is normal. No respiratory distress. Comments: L mid axillary chest tube x2 SS output atrium to water seal no leak appreciated Abdominal: General: There is no distension. Palpations: Abdomen is soft. Tenderness: There is abdominal tenderness (ATTP). Comments: Laparotomy incision healing appropriately Musculoskeletal: General: No swelling. Normal range of motion. Cervical back: Normal range of motion. Skin: General: Skin is warm and dry. Capillary Refill: Capillary refill takes less than 2 seconds. Coloration: Skin is not jaundiced. Neurological: General: No focal deficit present. Mental Status: She is alert and oriented to person, place, and time. Psychiatric: Mood and Affect: Mood normal. Behavior: Behavior normal. Intake/Output Summary (Last 24 hours) at 05/30/2025 1505 Last data filed at 05/30/2025 1200 Gross per 24 hour Intake 400 ml Output 2065 ml Net -1665 ml Lines/Drains/Tubes: Patient Lines/Drains/Airways Status Active Airway None Output by Drain (mL) 05/28/25 0700 - 05/28/25 1859 05/28/25 1900 - 05/29/25 0659 05/29/25 0700 - 05/29/25 1859 05/29/25 1900 - 05/30/25 0659 05/30/25 0700 - 05/30/25 1505 Requested LDAs do not have output data documented. Labs in last 18 hours: CBC WBC 9.27 Hb 8.9 (L) Plt 475 (H) Hct 26.9 (L) ANC ?? INR ??, PTT ??, Anti-Xa ?? MCV 89 BMP Na 137 Cl 104 BUN 11 Glu 135 (H) K 4.3 Co2 25 Cr 0.45 (L) Ca 7.8 (L) iCa ?? Mg 2.0, Phos 3.4 Lactate ?? LFT AST 20 AlkPhos 85 T Prot 6.0 (L) ALK 9 (L) Bili 0.3 Alb ?? D.Bili ?? Lab Trends: H/H Results from last 7 days Lab Units 05/30/25 0347 05/29/25 0355 05/28/25 0459 HEMOGLOBIN g/dL 8.9* 9.3* 9.8* HEMATOCRIT % 26.9* 28.4* 29.5* INR Cr Results from last 7 days Lab Units 05/30/25 0347 05/29/25 0355 05/28/25 0459 CREATININE mg/dL 0.45* 0.46* 0.46* Lactate No lab exists for component: LACTTEVEN Radiographic Interpretation: I have reviewed the imaging above and agree with the radiologist interpretation. XR Chest 1 View Result Date: 05/30/2025 Stable exam. CRITICAL RESULT: No. COMMUNICATION: Per this written report. By electronically signingthis report, I, the attending physician, attest that I have personally reviewed the images/data forthe above examination(s) and agree with the final edited report. Drafted by Abril Foreman DO on 05/30/2025 11:44 AM Final report signed by Veena Ho MD on 05/30/2025 1:21 PM XR Chest 1 View Result Date: 05/30/2025 Stable chest radiograph. CRITICAL RESULT: No. COMMUNICATION: Per this written report. By electronically signing this report, I, the attending physician, attest that I have personally reviewed the images/data for the above examination(s) and agree with the final edited report. Drafted by Justo crouch III, MD on 05/30/2025 10:09 AM Final report signed by Veena Ho MD on 05/30/2025 11:00 AM Medications reviewed. Vital signs reviewed. Labs reviewed. Assessment/Plan Assessment and Plan: Medical Problems Problem List * (Principal) Peripancreatic fluid collection CN III palsy, left Overview Addendum 03/31/2025 7:55 AM by Katlyn Hopkins APRN Hx of Abnormal blood electrolyte level Overview Signed 03/21/2025 9:54 AM by Katlyn Hopkins APRN - daily/PRN CMP, Mg, Phos - replete as appropriate - goal: K>4, phos>3, mg>2 HLD (hyperlipidemia) Overview Addendum 03/28/2025 8:24 AM by Katlyn Hopkins APRN Continue statin History of CVA (cerebrovascular accident) Overview Signed 03/21/2025 9:58 AM by Katlyn Hopkins APRN 11/2020 CT Head showed old left occipital & left temporal infarcts. On ASA 81mg daily. On total parenteral nutrition (TPN) Overview Addendum 05/29/2025 2:06 PM by Conrado Park APRN - initiated on 05/20/25 -daily CMP,mg,phos -weekly pre-albumin, triglycerides - PICC Placement Abdominal pain HTN (hypertension) Vascular problem Pancreatic cyst Pleural effusion associated with pulmonary infection Pituitary adenoma (CMS/HCC) Overview Deleted 03/21/2025 10:00 AM by Katlyn Hopkins APRN IPMN (intraductal papillary mucinous neoplasm) Overview Addendum 05/30/2025 3:04 PM by Katlyn Hopkins APRN 03/20/2025:ex-lap, SAMIA, distal pancreatectomy w/splenectomy, celiac axis node dissection [Monica] Pleural effusion Overview Signed 05/30/2025 3:05 PM by Katlyn Hopkins APRN Left VATS total pulmonary decortication. Chest tubes x2 Present on Admission: Peripancreatic fluid collection On total parenteral nutrition (TPN) Pituitary adenoma (CMS/HCC) Plan: [ ] schedule splenectomy vaccines [ ] AM CXR Daily [ ] FU TSS recs on chest tubes - Chest tubes to water seal per TSS 05/30 - Encourage OOB, ambulation, practicing PT/OT exercises Diet - Regular, TPN, boosts Abx - Pain - prn oxy, tylenol, robaxin, lido patch Ppx - pLOV, PPI Endo - subcutaneous Bowel reg - doc senna TLD - L CT x2, R PICC PT/OT - Home with 24 hour assistance, Home health PT, Home health OT Dispo - pending Edited by: Katlyn Hopkins APRN at 05/30/2025 1502 Dispo: Continue Current Level of Care Katlyn Hopkins APRN Cosigned by Lokesh Anderson MD at 06/05/2025 8:39 PM EST Associated attestation - Lokesh Anderson MD - 06/05/2025 8:39 PM EST I attest to being involved in more than half the total time in patient care. * Progress Notes - Kalee Hannah - 05/30/2025 10:57 AM EST Music Therapy Note Subjective: Patient Presented: Reclining in bed Initial Behavioral Presentation: Grimacing/frowning, Moaning/groaning Intrasession Behavioral Presentation: Calm/still After Disposition/ Affect: Calm/still Others Present: Spouse/significant other Treatment Goals & Interventions: Increase: Relaxation, Spiritual comfort Decrease: Pain/discomfort Music Therapy Interventions: Active music listening, Music-based discussion Communications: Methods: Verbalizations Responses: Positive comments about the music Behavioral Observations: Responses: Active Listening, Eye contact, Relaxation behaviors Engagement Level: Minimal Engagement Comments: Comments: Pt presented leaning forward in bed with spouse's assistance and reclined back when MT-BCentered. Pt welcomed MT for pain reduction and appeared to dose off several times during the music.Pt's spouse actively engaged in questions and discussion about guitar and positive comments about the music. Session ended early when X-Ray arrived. Pt's spouse thanked MT-BC. Length of Visit: Length of Visit: 17 minutes Plan of Care: Plan of Care: Continue to address above goals and additional goals as appropriate during hospitalization * Progress Notes - Josee Hull, PharmD - 05/30/2025 9:54 AM EST Images from the original note were not included. Pharmacist TPN Progress Note Patient: Dot Dale Age: 69 y.o. Admission Date: [id number] Subjective/Objective/Hospital Course: 69 y.o. female with PMHx significant for IPMN s/p distal pancreatectomy and splenectomy c/b post-op pancreatic leak requiring extended period with surgical drainin place (removed on 04/23). Presented to the [facility] on 05/13[facility]25 with abdominal pain, rigors, diaphoresis, and overall poor intake found to have peripancreatic fluid collection. Patient has been on TPN previously (~03/30-04/25). 05/20: Patient agreeable to PICC and TPN, switched appetite stimulants (megestrol --> dronabinol), CT scan pending 05/21: CT abd/pelv demonstrates loculated large left pleural effusion, chest tube placement with IR 05/23: possible washout with TSS this weekend vs next week 05/27: Left VATS total pulmonary decortication Problem List[1] Past Medical History[2] Surgical History[3] Allergies: Patient has no known allergies. LABS: Results from last 7 days Lab Units 05/30/2534605/29/2535405/28/25 0459 05/27/25 0452 05/26/25 0550 05/25/25 0507 05/24/25 0458 GLUCOSE mg/dL 135* 160* 168* 154* 170* 151* 167* BUN mg/dL 11 15 14 12 12 12 12 CREATININE mg/dL 0.45* 0.46* 0.46* 0.46* 0.44* 0.42* 0.45* SODIUM mmol/L 137 135* 133* 135* 133* 135* 137 POTASSIUM mmol/L 4.3 4.1 4.3 4.2 4.2 4.2 4.4 CHLORIDE mmol/L 104 103 102 103 101 104 105 CO2 mmol/L 25 24 23 23 21* 22 22 CALCIUM mg/dL 7.8* 7.7* 7.5* 8.0* 8.0* 8.0* 7.7* PHOSPHORUS mg/dL 3.4 2.9 2.9 3.3 3.6 2.7 2.8 MAGNESIUM mg/dL 2.0 1.8* 1.9 2.0 1.9 1.9 1.9 Results from last 7 days Lab Units 05/30/2534605/29/2535405/28/25 0459 05/27/25 0452 05/26/25 0550 05/25/25 0507 05/24/25 0458 WBC 10*3/uL 9.27 13.07* 15.74* 14.09* 15.57* 15.22* 13.62* HEMOGLOBIN g/dL 8.9* 9.3* 9.8* 9.2* 9.7* 10.0* 10.0* HEMATOCRIT % 26.9* 28.4* 29.5* 28.2* 29.7* 30.2* 30.0* PLATELETS 10*3/uL 475* 469* 538* 584* 586* 538* 517* Results from last 7 days Lab Units 05/30/2534605/29/2535405/28/25 0459 05/27/25 0452 05/26/25 0550 05/25/25 0507 05/24/25 0458 ALT U/L 9* 8* 10 12 14 13 10 AST U/L 20 11 14 15 22 20 22 ALKALINE PHOSPHATASE U/L 85 81 77 83 86 89 84 BILIRUBIN TOTAL mg/dL 0.3 0.4 0.4 0.5 0.5 0.4 0.3 ALBUMIN g/dL 2.0* 2.0* 1.9* 2.1* 2.2* 2.4* 2.2* Nutrition Labs: Lab Results Component Value Date TRIG 92 05/30/2025 BILITOT 0.3 05/30/2025 ALBUMIN 2.0 (L) 05/30/2025 PREALBUMIN 3.3 (L) 05/16/2025 HGBA1C 5.4 12/05/2020 CRP 1.5 12/07/2020 Microbiology Results Procedure Component Value Units Date/Time Blood Culture (Aerobic/Anaerobet Set) [[id number]] Collected: 05/14/25231 Order Status: Completed Specimen: Blood from Wrist, Left Updated: 05/19/25 0601 Culture No growth at day 5 Narrative: Low blood volume submitted, results may be compromised Blood Culture (Aerobic/Anaerobet Set) [[id number]] Collected: 05/14/25231 Order Status: Completed Specimen: Blood from Wrist, Right Updated: 05/19/25 0551 Culture No growth at day 5 Narrative: Low blood volume submitted, results may be compromised Body Fluid Culture and Gram Stain [[id number]] (Abnormal) (Susceptibility) Collected: 05/14/25 1647 Order Status: Completed Specimen: Body Fluid (specify site): Updated: 05/18/25 1436 Culture Heavy Growth 4+ Streptococcus constellatus Comment: This isolate has been identified using the FDA Approved [employer] [place] System The organism value for this result has been updated. These results have been appended to the previously preliminary verified report. Edited result: Previously reported as Streptococcus species on 05/15/2025 at 1553 EST. 1+ Haemophilus parainfluenzae Comment: This isolate has been identified using the FDA Approved [employer] [place] System The organism value for this result has been updated. These results have been appended to the previously preliminary verified report. Gram Stain Result Numerous Gram positive cocci in pairs and chains Numerous Gram negative rods Numerous Polymorphonuclear leukocytes Susceptibility Streptococcus constellatus ETEST Penicillin G 0.094 Susceptible Susceptibility Haemophilus parainfluenzae Method Not Specified Beta Lactamase Negative Negative Susceptibility Comments Haemophilus parainfluenzae This organism is predictably susceptible to ampicillin or amoxicillin. Vitals: Visit Vitals BP 133/76 Pulse 97 Temp 37.1 ??C (98.8 ??F) Resp 16 [place] Coma Scale Score: 15 Melchor Scale Score: 17 Oxygen Therapy: None (Room air) Skin Integrity: Other (Comment) (chest tube sites) Edema: Right lower extremity, Left lower extremity Wt Readings from Last 3 Encounters: 05/30/25 69 kg (152 lb 1.9 oz) 04/30/25 70.9 kg (156 lb 4.9 oz) 04/23/25 72.5 kg (159 lb 13.3 oz) Current Diet Order: Dietary Orders (From admission, onward) Start Ordered 05/30/25 0831 Oral nutrition supplements (Adult Diet Panel) Until discontinued Question Answer Comment Supplement frequency: All meals All meals supplement: Boost Very High Calorie Griffin All meals supplement: Magic Cup Butter Pecan Quantity for All Meals of Magic Cup Butter Pecan One Quantity for All Meals of Boost Very High Calorie - Griffin One 05/30/25 0830 05/27/25 221 Adult diet Diet texture: Regular (Adult Diet Panel) Diet effective now References: IDDSI Diet Texture Guide Question: Diet texture Answer: Regular 05/27/252212 Current Medications Current Scheduled Medications[4] Current Continuous Medications[5] Current Anthropometrics: Admit weight: 70.6 kg Height: 162.6 cm (5' 4 ) [place] body weight: 54.7 kg (120 lb 9.5 oz) Adjusted ideal body weight: 60.4 kg (133 lb 3.2 oz) (129%) of IBW Body mass index is 26.11 kg/m??. Adjusted wt: 58.7 kg (if over 125% of IBW) CENTRAL IV Access: PICC (05/20/25) Estimated Nutritional Needs: HBE: 1161 kcal/day Stress Factor: 1.2 - 1.3 Total Calories/day: 1393 - 1626 Protein (amino acids): 1.3 - 1.7 grams/kg Protein (Amino acids): 76.3 - 99.8 grams/day Measured Energy Needs: Respiratory Quotient: 05/30/2025 Plan/Recommendation: Labs reviewed, stable and WNL. Continue goal TPN. GOAL TPN: DEXTROSE: 18% (281 g/day CHO) AMINO ACIDS: 6% (93.6 g/day - 1.59 g/adjusted kg/day Amino acids), Na 100 mEq/L @ 65 ml/hr, with 30mg/day thiamine, MVI, and Trace elements Every other day 250ml 20% SMOF lipids 1579 Total kcal/day - 26.9 kcal/adjusted kg/day Replace electrolytes outside of TPN Calcium and/or Phosphorus supplements MUST be in a separate line from the TPN to avoid precipitation Obtain BMP, magnesium, and Phos daily x 3days and then at least twice weekly Obtain LFT and TGLY weekly I have monitored the TPN therapy, including the labs, and have communicated any modifications with the primary medical/surgical team. Continue current TPN formula and lipid regimen as above. I have communicated the TPN plan with the IV room. 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 Available via [email or web address] Secure Chat [1] Patient Active Problem List Diagnosis CN III palsy, left Pituitary adenoma (CMS/HCC) IPMN (intraductal papillary mucinous neoplasm) Abnormal blood electrolyte level HLD (hyperlipidemia) History of CVA (cerebrovascular accident) Leukocytosis On total parenteral nutrition (TPN) Peripancreatic fluid collection Abdominal pain Pleural effusion HTN (hypertension) Vascular problem Pancreatic cyst Pleural effusion associated with pulmonary infection [2] Past Medical History: Diagnosis Date Cranial nerve III palsy High cholesterol Pancreatic cyst Unspecified injury of unspecified wrist, hand and finger(s), initial encounter Hand injury [3] Past Surgical History: Procedure Laterality Date CYSTOSCOPY ENDOSCOPY EXTERNAL - ECG EXTERNAL - ECG [4] acetaminophen, 1,000 mg, Oral, q8h aspirin, 81 mg, Oral, Daily enoxaparin, 40 mg, Subcutaneous, Daily fat emulsion fish/plant based, 250 mL, Intravenous, Every other day gabapentin, 300 mg, Oral, Nightly insulin regular, 8 Units, Subcutaneous, q6h KHUSHI insulin regular, 0-10 Units, Subcutaneous, q6h KHUSHI ipratropium-albuterol, 3 mL, Nebulization, q6h RT Lidocaine, 1 patch, Apply externally, q24h methocarbamol, 1,000 mg, Oral, 4x daily pantoprazole, 40 mg, Oral, Daily senna-docusate, 1 tablet, Oral, Nightly sodium chloride, 10 mL, Intravenous, q12h sodium chloride, 10 mL, Intravenous, q12h sodium chloride, 3 mL, Nebulization, BID [5] Adult 2-in-1 TPN, 65 mL/hr, Last Rate: 65 mL/hr (05/29/252043) * Care Plan - Ele Estrada RN - 05/30/2025 9:50 AM EST Problem: Adult Inpatient Plan of Care Goal: Patient-Specific Goal (Individualized) Outcome: Ongoing, Progressing Flowsheets (Taken 05/30/2025944) Patient/Family-Specific Goals (Include Timeframe): pt will use call light for assistance on day shift, pt will remain free from falls/injuries on day shift, pt will ambulate in the hallway on day shift Individualized Care Needs: Medication administration Anxieties, Fears or Concerns: pain Goal: Optimal Comfort and Wellbeing Outcome: Ongoing, Progressing Intervention: Monitor Pain and Promote Comfort Flowsheets (Taken 05/30/2025944) Pain Management Interventions: quiet environment facilitated relaxation techniques promoted Intervention: Provide Person-Centered Care Flowsheets (Taken 05/30/2025944) Trust Relationship/Rapport: care explained choices provided questions answered questions encouraged Problem: Pain Acute Goal: Optimal Pain Control and Function Outcome: Ongoing, Progressing Intervention: Optimize Psychosocial Wellbeing Flowsheets (Taken 05/30/2025944) Supportive Measures: active listening utilized Diversional Activities: smartphone television Spiritual Activities Assistance: personal rituals encouraged Intervention: Develop Pain Management Plan Flowsheets (Taken 05/30/2025944) Pain Management Interventions: quiet environment facilitated relaxation techniques promoted Intervention: Prevent or Manage Pain Flowsheets (Taken 05/30/2025944) Sensory Stimulation Regulation: quiet environment promoted Complementary Therapy: essential oils utilized Bowel Elimination Promotion: adequate fluid intake promoted Sleep/Rest Enhancement: relaxation techniques promoted Medication Review/Management: medications reviewed Problem: Fall Injury Risk Goal: Absence of Fall and Fall-Related Injury Outcome: Ongoing, Progressing Intervention: Identify and Manage Contributors Flowsheets (Taken 05/30/2025944) Medication Review/Management: medications reviewed Self-Care Promotion: independence encouraged Intervention: Promote Injury-Free Environment Flowsheets (Taken 05/30/2025944) Safety Promotion/Fall Prevention: activity supervised safety round/check completed nonskid shoes/slippers when out of bed Problem: Skin Injury Risk Increased Goal: Skin Health and Integrity Outcome: Ongoing, Progressing Intervention: Optimize Skin Protection Flowsheets (Taken 05/30/2025944) Activity Management: activity adjusted per tolerance activity encouraged Pressure Reduction Techniques: frequent weight shift encouraged Pressure Reduction Devices: pressure-redistributing mattress utilized Skin Protection: incontinence pads utilized Head of Bed (HOB) Positioning: HOB elevated Intervention: Promote and Optimize Oral Intake Flowsheets (Taken 05/30/2025944) Oral Nutrition Promotion: physical activity promoted Nutrition Interventions: meal set-up provided Problem: Infection Goal: Absence of Infection Signs and Symptoms Outcome: Ongoing, Progressing Intervention: Prevent or Manage Infection Flowsheets (Taken 05/30/2025944) Infection Management: aseptic technique maintained Fever Reduction/Comfort Measures: lightweight bedding lightweight clothing Isolation Precautions: precautions maintained protective * Progress Notes - Rosa Chapman, PETROGRAPHER - 05/30/2025 8:34 AM EST Images from the original note were not included. [facility] Department of Surgery Section of Thoracic Surgery ICU Progress Note 05/30/25 Dot Dale History of Present Illness Dot Dale is a 69 y.o. female 3 Days Post-Op Left VATS total pulmonary decortication Procedures this admission 05/27/25: Diagnostic and therapeutic flexible bronchoscopy, Left VATS total pulmonary decortication Events of last 24 hours POD#3. AF and HDS, on RA. C/o pain in left side, around chest tubes. States she didn't have a roel . Jaya drain with 120ml SS output, CT with 20ml SS output. Sat in the chair yesterday but said she didn't walk in the dunne. Relevant review of systems was obtained as able and is negative unless stated above in HPI. Physical Exam: Visit Vitals BP 134/75 Pulse 90 Temp 36.6 ??C (97.9 ??F) Ht 1.626 m (5' 4 ) Wt 69 kg (152 lb 1.9 oz) SpO2 93% BMI 26.11 kg/m?? GENERAL: chronically ill appearing, NAD HENT: Atraumatic, normocephalic RESP/CHEST: symmetric chest rise, non-labored. Left sided chest tubes x2 with serosanguinous output. No air leak CARD: regular rate and rhythm, appears well perfused Extremities: No lower extremity edema present. No cyanosis or clubbing. Pedal pulses palpable +2. GI: soft, non-distended NEURO: AAOx4. Motor intact and no focal deficits PSYCH: Mood and affect congruent and appropriate to situation Intake/Output Summary (Last 24 hours) at 05/30/2025 0834 Last data filed at 05/30/2025 0700 Gross per 24 hour Intake 600 ml Output 1840 ml Net -1240 ml Lines/Drains/Tubes: Patient Lines/Drains/Airways Status Active Airway None Output by Drain (mL) 05/28/25 0700 - 05/28/25 1859 05/28/25 1900 - 05/29/25 0659 05/29/25 0700 - 05/29/25 1859 05/29/25 1900 - 05/30/25 0659 05/30/25 0700 - 05/30/25 0834 Requested LDAs do not have output data documented. Labs in last 18 hours: CBC WBC 9.27 Hb 8.9 (L) Plt 475 (H) Hct 26.9 (L) ANC ?? INR ??, PTT ??, Anti-Xa ?? MCV 89 BMP Na 137 Cl 104 BUN 11 Glu 135 (H) K 4.3 Co2 25 Cr 0.45 (L) Ca 7.8 (L) iCa ?? Mg 2.0, Phos 3.4 Lactate ?? LFT AST 20 AlkPhos 85 T Prot 6.0 (L) ALK 9 (L) Bili 0.3 Alb ?? D.Bili ?? Lab Trends: H/H Results from last 7 days Lab Units 05/30/25 0347 05/29/25 0355 05/28/25 0459 HEMOGLOBIN g/dL 8.9* 9.3* 9.8* HEMATOCRIT % 26.9* 28.4* 29.5* INR Cr Results from last 7 days Lab Units 05/30/25 0347 05/29/25 0355 05/28/25 0459 CREATININE mg/dL 0.45* 0.46* 0.46* Medications reviewed. Vital signs reviewed. Labs reviewed. Radiography reviewed. CXR: stable aeration, left chest tubes in place x2 Assessment and Plan: Principal Problem: Peripancreatic fluid collection Active Problems: On total parenteral nutrition (TPN) Abdominal pain HTN (hypertension) Vascular problem Pancreatic cyst Pleural effusion associated with pulmonary infection Pituitary adenoma (CMS/HCC) Pleural effusion Present on Admission: Peripancreatic fluid collection On total parenteral nutrition (TPN) Pituitary adenoma (CMS/HCC) Dot Dale is a 69 y.o. female 3 Day Post-Op Left VATS total pulmonary decortication. Chest tubes with serosanguinous output, no air leak. Overall recovering well postoperatively. Plan: -Chest tubes transitioned to waterseal this AM --Follow up CXR @[address] [place] [address] - No Toradol -Mobilize, IS, Nebs -Strip tubes BID -Rest of care per primary team Rosa Chapman APRN Thoracic Surgery * Care Plan - Rafal Post RN - 05/29/2025 10:14 PM EST Problem: Adult Inpatient Plan of Care Goal: Patient-Specific Goal (Individualized) Outcome: Ongoing, Progressing Flowsheets (Taken 05/29/2025 1900) Patient/Family-Specific Goals (Include Timeframe): Pt will report adequate pain control throughout the shift Individualized Care Needs: Ongoing Anxieties, Fears or Concerns: Pain control Goal: Optimal Comfort and Wellbeing Outcome: Ongoing, Progressing Intervention: Monitor Pain and Promote Comfort Flowsheets (Taken 05/29/2025 2130) Pain Management Interventions: medication (see MAR) Intervention: Provide Person-Centered Care Flowsheets (Taken 05/29/2025 1110 by Gail Espitia RN) Trust Relationship/Rapport: care explained choices provided emotional support provided empathic listening provided questions answered questions encouraged reassurance provided thoughts/feelings acknowledged Problem: Pain Acute Goal: Optimal Pain Control and Function Outcome: Ongoing, Progressing Intervention: Optimize Psychosocial Wellbeing Flowsheets (Taken 05/29/2025 1110 by Gail Espitia, RN) Supportive Measures: active listening utilized Diversional Activities: television smartphone Spiritual Activities Assistance: affirmation provided Intervention: Develop Pain Management Plan Flowsheets (Taken 05/29/2025 2130) Pain Management Interventions: medication (see MAR) Intervention: Prevent or Manage Pain Flowsheets (Taken 05/29/2025 1110 by Gail Espitia RN) Sensory Stimulation Regulation: auditory stimulation provided care clustered Complementary Therapy: essential oils utilized Bowel Elimination Promotion: adequate fluid intake promoted Sleep/Rest Enhancement: relaxation techniques promoted natural light exposure provided Medication Review/Management: medications reviewed Problem: Fall Injury Risk Goal: Absence of Fall and Fall-Related Injury Outcome: Ongoing, Progressing Intervention: Identify and Manage Contributors Flowsheets (Taken 05/29/2025 1110 by Gail Espitia, AJ) Medication Review/Management: medications reviewed Self-Care Promotion: independence encouraged Intervention: Promote Injury-Free Environment Flowsheets (Taken 05/29/20251899 by Emily Palomino) Safety Promotion/Fall Prevention: activity supervised assistive device/personal items within reach clutter-free environment maintained fall prevention program maintained lighting adjusted room organization consistent safety round/check completed toileting scheduled Problem: Skin Injury Risk Increased Goal: Skin Health and Integrity Outcome: Ongoing, Progressing Intervention: Optimize Skin Protection Flowsheets Taken 05/29/2025 1900 by Emily Palomino Activity Management: activity adjusted per tolerance Head of Bed (HOB) Positioning: HOB elevated Taken 05/29/2025 1800 by Tanvi Howard Skin Protection: incontinence pads utilized Taken 05/29/2025 1110 by Gail Espitia RN Pressure Reduction Techniques: frequent weight shift encouraged Pressure Reduction Devices: positioning supports utilized Intervention: Promote and Optimize Oral Intake Flowsheets (Taken 05/29/2025 1110 by Gail Espitia RN) Oral Nutrition Promotion: physical activity promoted Nutrition Interventions: calorie count initiated Problem: Infection Goal: Absence of Infection Signs and Symptoms Outcome: Ongoing, Progressing Intervention: Prevent or Manage Infection Flowsheets Taken 05/29/2025 1900 by Rafal Post RN Isolation Precautions: precautions maintained Taken 05/29/2025 1110 by Gail Espitia RN Infection Management: aseptic technique maintained Fever Reduction/Comfort Measures: lightweight clothing * Consults - Roberta Tidwell - 05/29/2025 6:57 PM EST Pastoral Care Note Referral From: Manager Inventory Control Initiated Pastoral Care Provided For: Patient (Attempted) Patient Profile: Consult Reasons: Follow up Unable to Assess: Appear to be sleeping Spiritual Assessment: Support Systems/ Spiritual Resources: Family, Светлана, Prayer Spiritual Issues: Chronic pain/ illness, Anxious(ness) Interventions: Interventions Provided: Attempted visit, Consulted with care team Pastoral Care Outcomes: Patient Outcomes: Unable to Assess (Patient resting at this time.) Pastoral Care Plan: Remain available and plan to follow up. Roberta Tidwell * Progress Notes - Katie Pena RN - 05/29/2025 11:46 AM EST Case Management Adult Progress Note Dot Dale 69 y.o. female CSN: [id number] Admission: 05/13/2025 6:45 PM Primary Problem: Peripancreatic fluid collection Anticipated Discharge Date: 06/02 Has Discharge Plans Changed? No Medicare Second Notice: Housing Circumstances: Not Applicable Housing Circumstances Action Taken: Medically Ready for Discharge: No Additional Comments POC reviewed with primary team. Refer to primary team's progress note for details. Pt not medicallyready to d\c. Remains with IV Dilaudid for pain control, 2 chest tubes, poor PO intake and no BM in3 days. DC plan of care ongoing Accepted by [facility] health pt ,ot ,sn, and [employer] for TPN. Katie Pena RN * Care Plan - Gail Espitia RN - 05/29/2025 11:12 AM EST Problem: Adult Inpatient Plan of Care Goal: Patient-Specific Goal (Individualized) Outcome: Ongoing, Progressing Flowsheets (Taken 05/29/2025 1054) Patient/Family-Specific Goals (Include Timeframe): Patient will verbalize adequate pain control andwork with physical therapy today. Individualized Care Needs: pain meds, support Anxieties, Fears or Concerns: pain control Goal: Optimal Comfort and Wellbeing Outcome: Ongoing, Progressing Intervention: Monitor Pain and Promote Comfort Flowsheets (Taken 05/29/2025 1110) Pain Management Interventions: medication (see MAR) quiet environment facilitated relaxation techniques promoted Intervention: Provide Person-Centered Care Flowsheets (Taken 05/29/2025 1110) Trust Relationship/Rapport: care explained choices provided emotional support provided empathic listening provided questions answered questions encouraged reassurance provided thoughts/feelings acknowledged Problem: Pain Acute Goal: Optimal Pain Control and Function Outcome: Ongoing, Progressing Intervention: Optimize Psychosocial Wellbeing Flowsheets (Taken 05/29/2025 1110) Supportive Measures: active listening utilized Diversional Activities: television smartphone Spiritual Activities Assistance: affirmation provided Intervention: Develop Pain Management Plan Flowsheets (Taken 05/29/2025 1110) Pain Management Interventions: medication (see MAR) quiet environment facilitated relaxation techniques promoted Intervention: Prevent or Manage Pain Flowsheets (Taken 05/29/2025 1110) Sensory Stimulation Regulation: auditory stimulation provided care clustered Complementary Therapy: essential oils utilized Bowel Elimination Promotion: adequate fluid intake promoted Sleep/Rest Enhancement: relaxation techniques promoted natural light exposure provided Medication Review/Management: medications reviewed Problem: Fall Injury Risk Goal: Absence of Fall and Fall-Related Injury Outcome: Ongoing, Progressing Intervention: Identify and Manage Contributors Flowsheets (Taken 05/29/2025 1110) Medication Review/Management: medications reviewed Self-Care Promotion: independence encouraged Intervention: Promote Injury-Free Environment Flowsheets (Taken 05/29/2025 1110) Safety Promotion/Fall Prevention: activity supervised assistive device/personal items within reach clutter-free environment maintained fall prevention program maintained lighting adjusted mobility aid in reach nonskid shoes/slippers when out of bed room organization consistent safety round/check completed Problem: Skin Injury Risk Increased Goal: Skin Health and Integrity Outcome: Ongoing, Progressing Intervention: Optimize Skin Protection Flowsheets (Taken 05/29/2025 1110) Activity Management: activity adjusted per tolerance Pressure Reduction Techniques: frequent weight shift encouraged Pressure Reduction Devices: positioning supports utilized Skin Protection: transparent dressing maintained Head of Bed (HOB) Positioning: HOB elevated Intervention: Promote and Optimize Oral Intake Flowsheets (Taken 05/29/2025 1110) Oral Nutrition Promotion: physical activity promoted Nutrition Interventions: calorie count initiated Problem: Infection Goal: Absence of Infection Signs and Symptoms Outcome: Ongoing, Progressing Intervention: Prevent or Manage Infection Flowsheets (Taken 05/29/2025 1110) Infection Management: aseptic technique maintained Fever Reduction/Comfort Measures: lightweight clothing Isolation Precautions: protective * Progress Notes - Kalee Vargas - 05/29/2025 10:36 AM EST Physical Therapy Treatment Patient Name: Dot Dale Today's Date: 05/29/2025 Total treatment time: 38 minutes PT Discharge Recommendations: Home with 24 hour assistance, Home health PT, Home health OT Equipment Recommended: Patient owns appropriate equipment Subjective RN and patient agreeable to patient participation in therapy session. Patient stating that she is uncomfortable at site of chest tubes. She is also sensing the need to have a bowel movement and stated that there was a bedpan under her (there was not). PT offered to walk patient to bathroom or standpivot to bedside commode. Patient declined both offers. PT then realized that patient was talking about the brief she was wearing and not a bedpan. Participants in Care Family/Caregiver Present: Yes Family/Caregiver: Spouse Tie Cutter: Not Applicable Presentation Oxygen Therapy: None (Room air) Lines and Tubes: Intravenous access, Chest Tube, Telemetry, PICC (Purewick, chest tube x 2) Pre-Session: Supine, Head of bed elevated, Lines intact, Bed alarm Pre-Session Comments: RN agreeable to therapy session timing Post-Session: Sitting in chair, Chair alarm, Lines intact, RN notified, Call light in reach Post-Session Comments: Pt's needs met. Pt positioned for comfort. Precautions Medical Precautions: Fall precautions Objective Pain Patient reported 2-3/10 pain in left side at rest. After standing and walking to chair, patient reported 10/10 pain. RN had Delirium Screening RASS: Alert and calm Confusion Assessment Method-ICU (CAM-ICU/PCAM-ICU) Feature 3: Altered Level of Consciousness: Negative Bed Mobility Bed Mobility Interventions: PT instructed patient in hand placement and sequencing. Patient preferred to pull with UE's vs being assisted. Modified approach and increased time to allow for increased patient independence. Bed Mobility Exam: Rolling/Turning Level of [place]: Minimum assist (75% patient effort) Physical/Nonphysical Assist: Set-up required, Verbal Cues, Nonverbal cues (demo/gestures) Assistive Device: Bed rails Bed Mobility Exam: Scooting/Bridging Level of [place]: Minimum assist (75% patient's effort) (scooting to edge of bed in sitting) Physical/Nonphysical Assist: Set-up required, Verbal Cues, Nonverbal cues (demo/gestures) Assistive Device: Bed rails Bed Mobility Exam: Supine to Sit Level of [place]: Moderate assist (50% patient's effort) Physical/Nonphysical Assist: Set-up required, Verbal Cues, Nonverbal cues (demo/gestures), HOB elevated, Additional assist utilized for safety Assistive Device: Bed rails Transfers Transfer Interventions: PT instructed patient in hand placement and sequencing and safety with sit to stand. Increased time to allow for increased patient independence and strategic placement of walker for success. Transfer Exam: Sit to stand Level of [place]: Minimum assist (75% patient's effort) Physical/Nonphysical Assist: Set-up required, Verbal Cues, Nonverbal cues (demo/gestures), Additional assist utilized for safety Assistive Device: Walker, rolling Transfer Exam: Stand to Sit Level of [place]: Minimum assist (75% patient's effort) Physical/Nonphysical Assist: Set-up required, Verbal Cues, Nonverbal cues (demo/gestures), Additional assist utilized for safety Assistive Device: Walker, rolling Transfer Exam: Bed to Chair/Chair to Bed Level of [place]: Minimum assist (75% patient's effort) Physical/Nonphysical Assist: Set-up required, Verbal Cues, Nonverbal cues (demo/gestures), Additional assist utilized for safety Type of Transfer: Sidesteps Assistive Device: Walker, rolling Ambulation Device: Rolling walker Assistance: Minimum assistance, Additional assist utilized for safety Distance : 5 feet bed to chair Ambulation Comments: patient deferred further ambulation due to pain and fatigue and c/o dizziness Balance Balance Interventions: PT provided supervision and CGA for steadying due to dizziness in sitting and standing. Therapeutic Activity (38 minutes) see bed mobility, balance, transfers and ambulation Assessment Patient pleasant and participated in session. She appears to be self-limiting with mobility but also in a lot of pain. Patient will continue to benefit from skilled PT services to address strength, balance, endurance and progressive functional mobility. PT Recommendations Discharge Destination: Home with 24 hour assistance, Home health PT, Home health OT Discharge Equipment: Patient owns appropriate equipment Plan 2-5 times per week 2 weeks Continue with progression of gait distance and functional independence. PT Goals PT GOAL DETAILS Goal Established Date Time Frame Goal Status PT Goal 1: Patient will demonstrate supine <> sit independently from a flat surface 05/20/25 2 weeks PT Goal 2: Patient will demonstrate STS modified independently with least restrictive assistive device 05/20/25 2 weeks PT Goal 3: Patient will ambulate 300 feet modified independently with least restrictive assistive device 05/20/25 2 weeks PT Goal 4: Patient will navigate 5 stairs with SBA and UE assist on hand rail 05/20/25 2 weeks Written by Kalee Vargas on 05/29/25 at 1:42 PM. * Progress Notes - Rosa Chapman, YOBANI - 05/29/2025 8:50 AM EST Images from the original note were not included. [facility] [place] [facility] Department of Surgery Section of Thoracic Surgery ICU Progress Note 05/29/25 Dot Dale History of Present Illness Dot Dale is a 69 y.o. female 2 Days Post-Op Left VATS total pulmonary decortication Procedures this admission 05/27/25: Diagnostic and therapeutic flexible bronchoscopy, Left VATS total pulmonary decortication Events of last 24 hours POD#2. AF and HDS, on RA. Reports soreness at chest tube insertion sites. Jaya drain with 100ml SSoutput, CT with 20ml SS output. Has been ambulating some and sitting in the chair. Relevant review of systems was obtained as able and is negative unless stated above in HPI. Physical Exam: Visit Vitals BP 106/64 Pulse 107 Temp 36.7 ??C (98.1 ??F) (Oral) Ht 1.626 m (5' 4 ) Wt 66.9 kg (147 lb 7.8 oz) SpO2 96% BMI 25.32 kg/m?? GENERAL: NAD HENT: Atraumatic, normocephalic RESP/CHEST: symmetric chest rise, non-labored. Left sided chest tubes x2 with serosanguinous output. No air leak CARD: Tachycardic in low 100's, appears well perfused Extremities: No lower extremity edema present. No cyanosis or clubbing. Pedal pulses palpable +2. GI: soft, non-distended NEURO: AAOx4. Motor intact and no focal deficits PSYCH: Mood and affect congruent and appropriate to situation Intake/Output Summary (Last 24 hours) at 05/29/2025 1350 Last data filed at 05/29/2025 0830 Gross per 24 hour Intake 790 ml Output 1120 ml Net -330 ml Lines/Drains/Tubes: Patient Lines/Drains/Airways Status Active Airway None Output by Drain (mL) 05/27/25 07 - 05/27/25 1859 05/27/25 1900 - 05/28/25 0659 05/28/25 07 - 05/28/25 1859 05/28/25 1900 - 05/29/25 0659 05/29/25 0700 - 05/29/25 1350 Requested LDAs do not have output data documented. Labs in last 18 hours: CBC WBC 13.07 (H) Hb 9.3 (L) Plt 469 (H) Hct 28.4 (L) ANC ?? INR ??, PTT ??, Anti-Xa ?? MCV 90 BMP Na 135 (L) Cl 103 BUN 15 Glu 160 (H) K 4.1 Co2 24 Cr 0.46 (L) Ca 7.7 (L) iCa ?? Mg 1.8 (L), Phos 2.9 Lactate ?? LFT AST 11 AlkPhos 81 T Prot 5.9 (L) ALK 8 (L) Bili 0.4 Alb ?? D.Bili ?? Lab Trends: H/H Results from last 7 days Lab Units 05/29/2535405/28/2545805/27/25 045 HEMOGLOBIN g/dL 9.3* 9.8* 9.2* HEMATOCRIT % 28.4* 29.5* 28.2* INR Cr Results from last 7 days Lab Units 05/29/25 03505/28/2545805/27/25 045 CREATININE mg/dL 0.46* 0.46* 0.46* Medications reviewed. Vital signs reviewed. Labs reviewed. Radiography reviewed. CXR: stable aeration, left chest tubes in place x2 Assessment and Plan: Principal Problem: Peripancreatic fluid collection Active Problems: On total parenteral nutrition (TPN) Abdominal pain HTN (hypertension) Vascular problem Pancreatic cyst Pleural effusion associated with pulmonary infection Pituitary adenoma (CMS/HCC) Pleural effusion Present on Admission: Peripancreatic fluid collection On total parenteral nutrition (TPN) Pituitary adenoma (CMS/HCC) Dot Dale is a 69 y.o. female 2 Day Post-Op Left VATS total pulmonary decortication. Chest tubes with serosanguinous output, no air leak. Overall recovering well postoperatively. Plan: -CT suction -20 (until 12/5 AM) -MMPC - No Toradol -Mobilize, IS, Nebs -Chest tube packing removed this AM -Strip tubes BID -Rest of care per primary team Rosa Chapman APRN Thoracic Surgery * Progress Notes - Josee Hull, PharmD - 05/29/2025 8:26 AM EST Images from the original note were not included. Pharmacist TPN Progress Note Patient: Dot Dale Age: 69 y.o. Admission Date: [id number] Subjective/Objective/Hospital Course: 69 y.o. female with PMHx significant for IPMN s/p distal pancreatectomy and splenectomy c/b post-op pancreatic leak requiring extended period with surgical drainin place (removed on 04/23). Presented to the [facility] on 05[facility]25 with abdominal pain, rigors, diaphoresis, and overall poor intake found to have peripancreatic fluid collection. Patient has been on TPN previously (~03/30-04/25). 05/20: Patient agreeable to PICC and TPN, switched appetite stimulants (megestrol --> dronabinol), CT scan pending 05/21: CT abd/pelv demonstrates loculated large left pleural effusion, chest tube placement with IR 05/23: possible washout with TSS this weekend vs next week 05/27: Left VATS total pulmonary decortication Problem List[1] Past Medical History[2] Surgical History[3] Allergies: Patient has no known allergies. LABS: Results from last 7 days Lab Units 05/29/25 03505/28/25 0459 05/27/25 0452 05/26/25 0550 05/25/25 0507 05/24/25 0458 05/23/25 0429 GLUCOSE mg/dL 160* 168* 154* 170* 151* 167* 177* BUN mg/dL 15 14 12 12 12 12 11 CREATININE mg/dL 0.46* 0.46* 0.46* 0.44* 0.42* 0.45* 0.43* SODIUM mmol/L 135* 133* 135* 133* 135* 137 134* POTASSIUM mmol/L 4.1 4.3 4.2 4.2 4.2 4.4 4.2 CHLORIDE mmol/L 103 102 103 101 104 105 103 CO2 mmol/L 24 23 23 21* 22 22 21* CALCIUM mg/dL 7.7* 7.5* 8.0* 8.0* 8.0* 7.7* 7.9* PHOSPHORUS mg/dL 2.9 2.9 3.3 3.6 2.7 2.8 2.6 MAGNESIUM mg/dL 1.8* 1.9 2.0 1.9 1.9 1.9 1.8* Results from last 7 days Lab Units 05/29/2535405/28/25 04505/27/25 0452 05/26/25 0550 05/25/25 0507 05/24/25 0458 05/23/25 0429 WBC 10*3/uL 13.07* 15.74* 14.09* 15.57* 15.22* 13.62* 13.42* HEMOGLOBIN g/dL 9.3* 9.8* 9.2* 9.7* 10.0* 10.0* 10.4* HEMATOCRIT % 28.4* 29.5* 28.2* 29.7* 30.2* 30.0* 30.4* PLATELETS 10*3/uL 469* 538* 584* 586* 538* 517* 517* Results from last 7 days Lab Units 05/29/25 0355 05/28/25 0459 05/27/25 0452 05/26/25 0550 05/25/25 0507 05/24/25 0458 05/23/25 0429 ALT U/L 8* 10 12 14 13 10 8* AST U/L 11 14 15 22 20 22 16 ALKALINE PHOSPHATASE U/L 81 77 83 86 89 84 73 BILIRUBIN TOTAL mg/dL 0.4 0.4 0.5 0.5 0.4 0.3 0.3 ALBUMIN g/dL 2.0* 1.9* 2.1* 2.2* 2.4* 2.2* 2.1* Nutrition Labs: Lab Results Component Value Date TRIG 119 05/20/2025 BILITOT 0.4 05/29/2025 ALBUMIN 2.0 (L) 05/29/2025 PREALBUMIN 3.3 (L) 05/16/2025 HGBA1C 5.4 12/05/2020 CRP 1.5 12/07/2020 Microbiology Results Procedure Component Value Units Date/Time Blood Culture (Aerobic/Anaerobet Set) [[id number]] Collected: 05/14/25231 Order Status: Completed Specimen: Blood from Wrist, Left Updated: 05/19/25 0601 Culture No growth at day 5 Narrative: Low blood volume submitted, results may be compromised Blood Culture (Aerobic/Anaerobet Set) [[id number]] Collected: 05/14/25 0232 Order Status: Completed Specimen: Blood from Wrist, Right Updated: 05/19/25 0551 Culture No growth at day 5 Narrative: Low blood volume submitted, results may be compromised Body Fluid Culture and Gram Stain [[id number]] (Abnormal) (Susceptibility) Collected: 05/14/25 1647 Order Status: Completed Specimen: Body Fluid (specify site): Updated: 05/18/25 1436 Culture Heavy Growth 4+ Streptococcus constellatus Comment: This isolate has been identified using the FDA Approved [employer] System The organism value for this result has been updated. These results have been appended to the previously preliminary verified report. Edited result: Previously reported as Streptococcus species on 05/15/2025 at 1553 EST. 1+ Haemophilus parainfluenzae Comment: This isolate has been identified using the FDA Approved [employer] System The organism value for this result has been updated. These results have been appended to the previously preliminary verified report. Gram Stain Result Numerous Gram positive cocci in pairs and chains Numerous Gram negative rods Numerous Polymorphonuclear leukocytes Susceptibility Streptococcus constellatus ETEST Penicillin G 0.094 Susceptible Susceptibility Haemophilus parainfluenzae Method Not Specified Beta Lactamase Negative Negative Susceptibility Comments Haemophilus parainfluenzae This organism is predictably susceptible to ampicillin or amoxicillin. Vitals: Visit Vitals BP 118/74 Pulse 96 Temp 37.1 ??C (98.8 ??F) Resp 18 Katie Coma Scale Score: 15 Melchor Scale Score: 19 Oxygen Therapy: None (Room air) Skin Integrity: Other (Comment) Edema: Right lower extremity, Left lower extremity Wt Readings from Last 3 Encounters: 05/29/25 66.9 kg (147 lb 7.8 oz) 04/30/25 70.9 kg (156 lb 4.9 oz) 04/23/25 72.5 kg (159 lb 13.3 oz) Current Diet Order: Dietary Orders (From admission, onward) Start Ordered 05/27/252212 Adult diet Diet texture: Regular (Adult Diet Panel) Diet effective now References: IDDSI Diet Texture Guide Question: Diet texture Answer: Regular 05/27/25 2213 05/27/25 221 Oral nutrition supplements (Adult Diet Panel) Until discontinued Question Answer Comment Supplement frequency: All meals All meals supplement: Boost Very High Calorie Vanilla All meals supplement: Boost Very High Calorie Chocolate All meals supplement: Boost Very High Calorie Griffin Quantity for All Meals of Boost Very High Calorie - Vanilla One Quantity for All Meals of Boost Very High Calorie - Chocolate One Quantity for All Meals of Boost Very High Calorie - Griffin One 05/27/25 2213 Current Medications Current Scheduled Medications[4] Current Continuous Medications[5] Current Anthropometrics: Admit weight: 70.6 kg Height: 162.6 cm (5' 4 ) [place] body weight: 54.7 kg (120 lb 9.5 oz) Adjusted ideal body weight: 59.6 kg (131 lb 5.6 oz) (129%) of IBW Body mass index is 25.32 kg/m??. Adjusted wt: 58.7 kg (if over 125% of IBW) CENTRAL IV Access: PICC (05/20/25) Estimated Nutritional Needs: HBE: 1161 kcal/day Stress Factor: 1.2 - 1.3 Total Calories/day: 1393 - 1626 Protein (amino acids): 1.3 - 1.7 grams/kg Protein (Amino acids): 76.3 - 99.8 grams/day Measured Energy Needs: Respiratory Quotient: 05/29/2025 Plan/Recommendation: Labs reviewed. Continue goal TPN. GOAL TPN: DEXTROSE: 18% (281 g/day CHO) AMINO ACIDS: 6% (93.6 g/day - 1.59 g/adjusted kg/day Amino acids), Na 100 meq/L @ 65 ml/hr, with 30mg/day thiamine, MVI, and Trace elements Every other day 250ml 20% SMOF lipids 1579 Total kcal/day - 26.9 kcal/adjusted kg/day Replace electrolytes outside of TPN Calcium and/or Phosphorus supplements MUST be in a separate line from the TPN to avoid precipitation Obtain BMP, magnesium, and Phos daily x 3days and then at least twice weekly Obtain LFT and TGLY weekly I have monitored the TPN therapy, including the labs, and have communicated any modifications with the primary medical/surgical team. Continue current TPN formula and lipid regimen as above. I have communicated the TPN plan with the IV room. 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 Available via [email or web address] Secure Chat [1] Patient Active Problem List Diagnosis CN III palsy, left Pituitary adenoma (CMS/HCC) IPMN (intraductal papillary mucinous neoplasm) Abnormal blood electrolyte level HLD (hyperlipidemia) History of CVA (cerebrovascular accident) Leukocytosis On total parenteral nutrition (TPN) Peripancreatic fluid collection Abdominal pain Pleural effusion HTN (hypertension) Vascular problem Pancreatic cyst Pleural effusion associated with pulmonary infection [2] Past Medical History: Diagnosis Date Cranial nerve III palsy High cholesterol Pancreatic cyst Unspecified injury of unspecified wrist, hand and finger(s), initial encounter Hand injury [3] Past Surgical History: Procedure Laterality Date CYSTOSCOPY ENDOSCOPY EXTERNAL - ECG EXTERNAL - ECG [4] acetaminophen, 1,000 mg, Oral, q8h aspirin, 81 mg, Oral, Daily enoxaparin, 40 mg, Subcutaneous, Daily fat emulsion fish/plant based, 250 mL, Intravenous, Every other day gabapentin, 300 mg, Oral, Nightly insulin regular, 8 Units, Subcutaneous, q6h KHUSHI insulin regular, 0-10 Units, Subcutaneous, q6h KHUSHI ipratropium-albuterol, 3 mL, Nebulization, q6h RT Lidocaine, 1 patch, Apply externally, q24h methocarbamol, 1,000 mg, Oral, 4x daily pantoprazole, 40 mg, Oral, Daily piperacillin-tazobactam, 3.375 g, Intravenous, q6h senna-docusate, 1 tablet, Oral, Nightly sodium chloride, 10 mL, Intravenous, q12h sodium chloride, 10 mL, Intravenous, q12h sodium chloride, 3 mL, Nebulization, BID [5] Adult 2-in-1 TPN, 65 mL/hr, Last Rate: 65 mL/hr (05/28/252116) * Progress Notes - Flora Salvador DO - 05/29/2025 7:48 AM EST Images from the original note were not included. Department of Surgery Division of Surgical Oncology Surgery Progress Note 05/29/25 Dot [place] Subjective Subjective: HPI 69F with history of IPMN s/p distal panc/spleen c/b post-op pancreatic leak requiring extended period with surgical drain in place (removed on 04/23). Presented with worsening abdominal pain, fever/chills and found to have peripancreatic fluid collection. 03/20/25: distal panc/spleen [Monica] 05/14: IR placed abdominal drain Interval: Tachycardic overnight with HR 111-117, now 98 on rounds this AM. She endorsed breakthrough pain overnight and so dilaudid was added, states pain is now well controlled. Denies N/V overnight. CXR continues to appear improved today. Patient endorses increased PO intake yesterday. PT/OT yesterday recs with home w/assist, encouraged continuing exercises again today. On RA this morning, respiratory status improved today from 2L NC yesterday. No BM for the past 3 days added doc-senna yesterday, will progress to suppository today. Mag replaced. I/O: UOP 1300 (800), BM - (-), L chest tube-24Fr 100 (450), L chest tube-28Fr 20 (73) Edited by: Flora Salvador, DO at 05/29/2025 0765 Review of Systems: Relevant review of systems was obtained as able and is negative unless stated above in HPI. Objective Objective: Vital signs: Vitals: 05/29/25 0319 BP: 110/63 Pulse: 105 Resp: 18 Temp: 37.3 ??C (99.1 ??F) SpO2: 94% Physical Exam: Physical Exam Vitals reviewed. Constitutional: General: She is not in acute distress. Appearance: She is ill-appearing. HENT: Head: Normocephalic and atraumatic. Nose: Nose normal. Mouth/Throat: Mouth: Mucous membranes are dry. Eyes: General: No scleral icterus. Extraocular Movements: Extraocular movements intact. Conjunctiva/sclera: Conjunctivae normal. Cardiovascular: Rate and Rhythm: Normal rate and regular rhythm. Pulmonary: Effort: Pulmonary effort is normal. No respiratory distress. Comments: L mid axillary chest tube x2 SS output atrium to water seal no leak appreciated Abdominal: General: There is no distension. Palpations: Abdomen is soft. Tenderness: There is no abdominal tenderness (ATTP). There is no guarding or rebound. Comments: Laparotomy incision healing appropriately Musculoskeletal: General: No swelling. Normal range of motion. Cervical back: Normal range of motion. Skin: General: Skin is warm and dry. Capillary Refill: Capillary refill takes less than 2 seconds. Coloration: Skin is not jaundiced. Neurological: General: No focal deficit present. Mental Status: She is alert and oriented to person, place, and time. Psychiatric: Mood and Affect: Mood normal. Behavior: Behavior normal. Thought Content: Thought content normal. Judgment: Judgment normal. Intake/Output Summary (Last 24 hours) at 05/29/2025 0754 Last data filed at 05/29/2025 0500 Gross per 24 hour Intake 1731.25 ml Output 1420 ml Net 311.25 ml Lines/Drains/Tubes: Patient Lines/Drains/Airways Status Active Airway None Output by Drain (mL) 05/27/25 0700 - 05/27/25 1859 05/27/25 1900 - 05/28/25 0659 05/28/25 0700 - 05/28/25 1859 05/28/25 1900 - 05/29/25 0659 05/29/25 0700 - 05/29/25 0754 Requested LDAs do not have output data documented. Labs in last 18 hours: CBC WBC 13.07 (H) Hb 9.3 (L) Plt 469 (H) Hct 28.4 (L) ANC ?? INR ??, PTT ??, Anti-Xa ?? MCV 90 BMP Na 135 (L) Cl 103 BUN 15 Glu 160 (H) K 4.1 Co2 24 Cr 0.46 (L) Ca 7.7 (L) iCa ?? Mg 1.8 (L), Phos 2.9 Lactate ?? LFT AST 11 AlkPhos 81 T Prot 5.9 (L) ALK 8 (L) Bili 0.4 Alb ?? D.Bili ?? Lab Trends: H/H Results from last 7 days Lab Units 05/29/25 0355 05/28/25 0459 05/27/25 0452 HEMOGLOBIN g/dL 9.3* 9.8* 9.2* HEMATOCRIT % 28.4* 29.5* 28.2* INR Cr Results from last 7 days Lab Units 05/29/25 0355 05/28/25 0459 05/27/25 0452 CREATININE mg/dL 0.46* 0.46* 0.46* Lactate No lab exists for component: LACTTEVEN Radiographic Interpretation: I have reviewed the imaging above and agree with the radiologist interpretation. XR Chest 1 View Result Date: 05/29/2025 Improved aeration of the left lung with decreased left effusion and opacity status post placement of a left chest tubes Assessment/Plan Assessment and Plan: Medical Problems Problem List * (Principal) Peripancreatic fluid collection CN III palsy, left Overview Addendum 03/31/2025 7:55 AM by Katlyn Hopkins APRN Hx of Abnormal blood electrolyte level Overview Signed 03/21/2025 9:54 AM by Katlyn Hopkins APRN - daily/PRN CMP, Mg, Phos - replete as appropriate - goal: K>4, phos>3, mg>2 HLD (hyperlipidemia) Overview Addendum 03/28/2025 8:24 AM by Katlyn Hopkins APRN Continue statin History of CVA (cerebrovascular accident) Overview Signed 03/21/2025 9:58 AM by Katlyn Hopkins APRN 11/2020 CT Head showed old left occipital & left temporal infarcts. On ASA 81mg daily. Leukocytosis Overview Addendum 04/04/2025 9:46 AM by Katlyn Hopkins APRN Down trending Daily CBC Abx: fidaxomicin (changed to Vancomycin due to cost on day of dc (03/30-04/09) levofloxacin/flagyl (03/30-04/12) Zosyn 03/29-03/30 zosyn [03/20-] x48h post-op Cx: GI panel/C. Diff: +GDH- Toxin, all other negative (03/30) On total parenteral nutrition (TPN) Overview Addendum 04/04/2025 9:18 AM by Katlyn Hopkins APRN - initiated on 03/30/25, continue on dc -daily CMP,mg,phos -weekly pre-albumin, triglycerides Abdominal pain HTN (hypertension) Vascular problem Pancreatic cyst Pleural effusion associated with pulmonary infection Pituitary adenoma (CMS/HCC) Overview Deleted 03/21/2025 10:00 AM by Katlyn Hopkins APRN IPMN (intraductal papillary mucinous neoplasm) Overview Addendum 04/04/2025 9:18 AM by Katlyn Hopkins APRN 03/20/2025:ex-lap, SAMIA, distal pancreatectomy w/splenectomy, celiac axis node dissection [Monica] Keep DARIAN bulb on dc Pleural effusion Present on Admission: Peripancreatic fluid collection On total parenteral nutrition (TPN) Pituitary adenoma (CMS/HCC) 69 yo female with PMHx notable for IPMN s/p distal pancreatectomy and splenectomy on 03/20/25, history of CVA on aspirin, HLD who presented to [facility] 05/14/25 with nausea, vomiting, and peripancreatic fluid collection. Now status post IR placed abdominal drain on 05/14. She developed worsening left pleural effusion now status post IR guided chest tube on 05/21 and then VATS with two chest tubes leftin place with TSS on 05/27. Chest tubes are draining well, with CXR continuing to appear improved this AM. Additionally she was on RA this morning, respiratory status improved today from 2L NC yesterday. Patient is working with PT/OT and we continued to encourage OOB today to aid in improving strength. Her PO intake picked up yesterday and we will continue to progress, encourage more PO intake today. No BM for the past 3 days added doc-senna yesterday, will progress to suppository today. Mag replaced. Plan: [ ] schedule splenectomy vaccines [ ] AM CXR Daily [ ] FU TSS recs on chest tubes - suppository - aggressive pulmonary toileting - Continues to have poor PO. Minimally improved today. TPN, regular diet with boost. - Chest tube fluid studies - amylase, lipase - per TSS - IR chest tube 05/21 NGD4 - On zosyn 05/20 until WBC normalizes -VATs completed with two L chest tubes in place - Drain cx: Streptococcus constellatus, H. Parainfluenzae. - Encourage OOB, ambulation, practicing PT/OT exercises Diet - Regular, TPN, boosts Abx - zosyn Pain - prn oxy, tylenol, robaxin, lido patch Ppx - pLOV, PPI Endo - subcutaneous Bowel reg - doc senna TLD - L CT x2, R PICC PT/OT - Home with 24 hour assistance, Home health PT, Home health OT Dispo - pending Edited by: Flora Salvador DO at 05/29/2025 0757 Dispo: Continue Current Level of Care Flora Salvador DO Cosigned by Lokesh Anderson MD at 06/05/2025 8:39 PM EST Associated attestation - Lokesh Anderson MD - 06/05/2025 8:39 PM EST I saw and evaluated the patient with the resident/fellow. I discussed the case with the resident/fellow and agree with the findings and plan as documented. * Care Plan - Rafal Post RN - 05/28/2025 11:54 PM EST Problem: Adult Inpatient Plan of Care Goal: Patient-Specific Goal (Individualized) Outcome: Ongoing, Progressing Flowsheets (Taken 05/28/2025 1900) Patient/Family-Specific Goals (Include Timeframe): Patient will report pain at or below a tolerablelevel through end of shift. Individualized Care Needs: Ongoing Anxieties, Fears or Concerns: Pain control Goal: Optimal Comfort and Wellbeing Outcome: Ongoing, Progressing Intervention: Monitor Pain and Promote Comfort Flowsheets (Taken 05/28/20252212) Pain Management Interventions: medication (see MAR) Intervention: Provide Person-Centered Care Flowsheets (Taken 05/28/2025 1228 by José Miguel Weathers RN) Trust Relationship/Rapport: care explained choices provided emotional support provided empathic listening provided questions answered questions encouraged reassurance provided thoughts/feelings acknowledged Problem: Pain Acute Goal: Optimal Pain Control and Function Outcome: Ongoing, Progressing Intervention: Optimize Psychosocial Wellbeing Flowsheets (Taken 05/28/20251227 by José Miguel Weathers RN) Supportive Measures: active listening utilized Diversional Activities: television smartphone Spiritual Activities Assistance: affirmation provided Intervention: Develop Pain Management Plan Flowsheets (Taken 05/28/20252212) Pain Management Interventions: medication (see MAR) Intervention: Prevent or Manage Pain Flowsheets Taken 05/28/2025 1228 by José Miguel Weathers RN Sensory Stimulation Regulation: quiet environment promoted Bowel Elimination Promotion: ambulation promoted privacy promoted Sleep/Rest Enhancement: natural light exposure provided noise level reduced Medication Review/Management: medications reviewed Taken 05/26/2025 1435 by Ariane Ordoñez RN Complementary Therapy: essential oils utilized Problem: Fall Injury Risk Goal: Absence of Fall and Fall-Related Injury Outcome: Ongoing, Progressing Intervention: Identify and Manage Contributors Flowsheets (Taken 05/28/20258 by José Miguel Weathers RN) Medication Review/Management: medications reviewed Self-Care Promotion: independence encouraged Intervention: Promote Injury-Free Environment Flowsheets (Taken 05/28/2025 1900) Safety Promotion/Fall Prevention: activity supervised assistive device/personal items within reach clutter-free environment maintained fall prevention program maintained lighting adjusted mobility aid in reach nonskid shoes/slippers when out of bed room organization consistent safety round/check completed toileting scheduled Problem: Skin Injury Risk Increased Goal: Skin Health and Integrity Outcome: Ongoing, Progressing Intervention: Optimize Skin Protection Flowsheets Taken 05/28/2025 1800 by Tanvi Howard Activity Management: back to bed Taken 05/28/2025 1228 by José Miguel Weathers RN Pressure Reduction Techniques: frequent weight shift encouraged Pressure Reduction Devices: positioning supports utilized Skin Protection: incontinence pads utilized protective footwear used Head of Bed (HOB) Positioning: HOB elevated Intervention: Promote and Optimize Oral Intake Flowsheets (Taken 05/28/2025 1228 by José Miguel Weathers, RN) Oral Nutrition Promotion: physical activity promoted Nutrition Interventions: food preferences provided Problem: Infection Goal: Absence of Infection Signs and Symptoms Outcome: Ongoing, Progressing Intervention: Prevent or Manage Infection Flowsheets Taken 05/28/2025 1900 by Rafal Post RN Isolation Precautions: precautions maintained Taken 05/28/2025 1228 by José Miguel Weathers RN Infection Management: aseptic technique maintained Fever Reduction/Comfort Measures: lightweight bedding lightweight clothing * Progress Notes - Xavier Marsh DO - 05/28/2025 1:58 PM EST Images from the original note were not included. [facility] Department of Surgery Section of Thoracic Surgery ICU Progress Note 05/28/25 Dot Dale History of Present Illness Dot Dale is a 69 y.o. female 1 Day Post-Op Left VATS total pulmonary decortication Procedures this admission 05/27/25: Diagnostic and therapeutic flexible bronchoscopy, Left VATS total pulmonary decortication Events of last 24 hours POD#1. AF and HDS, on 2L via NC. Reports soreness at chest tube insertion sites. Jaya drain with 450ml SS output, CT with 73ml SS output. Has yet to ambulate since OR. Relevant review of systems was obtained as able and is negative unless stated above in HPI. Physical Exam: Visit Vitals BP 128/73 Pulse (!) 111 Temp 36.3 ??C (97.3 ??F) Ht 1.626 m (5' 4 ) Wt 66.7 kg (147 lb 0.8 oz) SpO2 91% BMI 25.24 kg/m?? GENERAL: NAD HENT: Atraumatic, normocephalic RESP/CHEST: No increased work of breathing on 2L via NC. Left sided chest tubes x2 with serosanguinous output. No air leak CARD: Tachycardic in low 100's, appears well perfused Extremities: No lower extremity edema present. No cyanosis or clubbing. Pedal pulses palpable +2. GI: soft, non-distended NEURO: AAOx4. Motor intact and no focal deficits PSYCH: Mood and affect congruent and appropriate to situation Intake/Output Summary (Last 24 hours) at 05/28/2025 1358 Last data filed at 05/28/2025 1200 Gross per 24 hour Intake 2602.72 ml Output 1023 ml Net 1579.72 ml Lines/Drains/Tubes: Patient Lines/Drains/Airways Status Active Airway None Output by Drain (mL) 05/26/25 0700 - 05/26/25 1859 05/26/25 1900 - 05/27/25 0659 05/27/25 0700 - 05/27/25 1859 05/27/25 1900 - 05/28/25 0659 05/28/25 0700 - 05/28/25 1358 Requested LDAs do not have output data documented. Labs in last 18 hours: CBC WBC 15.74 (H) Hb 9.8 (L) Plt 538 (H) Hct 29.5 (L) ANC ?? INR ??, PTT ??, Anti-Xa ?? MCV 88 BMP Na 133 (L) Cl 102 BUN 14 Glu 168 (H) K 4.3 Co2 23 Cr 0.46 (L) Ca 7.5 (L) iCa ?? Mg 1.9, Phos 2.9 Lactate ?? LFT AST 14 AlkPhos 77 T Prot 5.7 (L) ALK 10 Bili 0.4 Alb ?? D.Bili ?? Lab Trends: H/H Results from last 7 days Lab Units 05/28/25 0459 05/27/25 0452 05/26/25 0550 HEMOGLOBIN g/dL 9.8* 9.2* 9.7* HEMATOCRIT % 29.5* 28.2* 29.7* INR Cr Results from last 7 days Lab Units 05/28/25 0459 05/27/25 0452 05/26/25 0550 CREATININE mg/dL 0.46* 0.46* 0.44* Medications reviewed. Vital signs reviewed. Labs reviewed. Radiography reviewed. CXR: FINDINGS: Left chest tube unchanged in positioning. No pneumothorax. Interval increase in left lung airspace opacities stable small to moderate-sized left pleural effusion. Hypoventilatory changes. Cardiac size and mediastinal contours are stable. IMPRESSION: Worsening left lung airspace disease. Assessment and Plan: Principal Problem: Peripancreatic fluid collection Active Problems: On total parenteral nutrition (TPN) Abdominal pain HTN (hypertension) Vascular problem Pancreatic cyst Pleural effusion associated with pulmonary infection Pituitary adenoma (CMS/HCC) Pleural effusion Present on Admission: Peripancreatic fluid collection On total parenteral nutrition (TPN) Pituitary adenoma (CMS/HCC) Dot Dale is a 69 y.o. female 1 Day Post-Op Left VATS total pulmonary decortication. Chest tubes with serosanguinous output, no air leak. Overall recovering well postoperatively. She has not attempted to ambulate since OR and denies using the IS which is laying in her bed. Discussed importance ofpulmonary toilet and ambulation. Plan: -CT suction -20 (until 12/5 AM) -No Toradol -Mobilize, IS, Nebs -Chest tube packing to be removed 12/4 AM -Strip tubes BID -PT/OT Xavier Marsh DO Thoracic Surgery Cosigned by Dylon Griggs MD at 05/30/2025 7:34 AM EST Associated attestation - Dylon Griggs MD - 05/30/2025 7:34 AM EST I saw and evaluated the patient with the resident/fellow. I discussed the case with the resident/fellow and agree with the findings and plan as documented. * Care Plan - José Miguel Weathers RN - 05/28/2025 12:28 PM EST Problem: Adult Inpatient Plan of Care Goal: Patient-Specific Goal (Individualized) Outcome: Ongoing, Progressing Flowsheets (Taken 05/28/2025 0800) Patient/Family-Specific Goals (Include Timeframe): Patient will report pain at or below a tolerablelevel through end of shift. Individualized Care Needs: Pain Anxieties, Fears or Concerns: Pain Goal: Optimal Comfort and Wellbeing Outcome: Ongoing, Progressing Intervention: Monitor Pain and Promote Comfort Flowsheets (Taken 05/28/2025 0821) Pain Management Interventions: medication (see MAR) care clustered emotional support pain management plan reviewed with patient/caregiver pillow support provided quiet environment facilitated therapeutic presence Intervention: Provide Person-Centered Care Flowsheets (Taken 05/28/2025 1228) Trust Relationship/Rapport: care explained choices provided emotional support provided empathic listening provided questions answered questions encouraged reassurance provided thoughts/feelings acknowledged Problem: Pain Acute Goal: Optimal Pain Control and Function Outcome: Ongoing, Progressing Intervention: Optimize Psychosocial Wellbeing Flowsheets (Taken 05/28/2025 1228) Supportive Measures: active listening utilized Diversional Activities: television smartphone Spiritual Activities Assistance: affirmation provided Intervention: Develop Pain Management Plan Flowsheets (Taken 05/28/2025 0821) Pain Management Interventions: medication (see MAR) care clustered emotional support pain management plan reviewed with patient/caregiver pillow support provided quiet environment facilitated therapeutic presence Intervention: Prevent or Manage Pain Flowsheets (Taken 05/28/2025 1228) Sensory Stimulation Regulation: quiet environment promoted Bowel Elimination Promotion: ambulation promoted privacy promoted Sleep/Rest Enhancement: natural light exposure provided noise level reduced Medication Review/Management: medications reviewed Problem: Fall Injury Risk Goal: Absence of Fall and Fall-Related Injury Outcome: Ongoing, Progressing Intervention: Identify and Manage Contributors Flowsheets (Taken 05/28/2025 122) Medication Review/Management: medications reviewed Self-Care Promotion: independence encouraged Intervention: Promote Injury-Free Environment Flowsheets (Taken 05/28/2025 0800) Safety Promotion/Fall Prevention: clutter-free environment maintained fall prevention program maintained nonskid shoes/slippers when out of bed Problem: Skin Injury Risk Increased Goal: Skin Health and Integrity Outcome: Ongoing, Progressing Intervention: Optimize Skin Protection Flowsheets (Taken 05/28/2025 1228) Activity Management: activity adjusted per tolerance Pressure Reduction Techniques: frequent weight shift encouraged Pressure Reduction Devices: positioning supports utilized Skin Protection: incontinence pads utilized protective footwear used Head of Bed (HOB) Positioning: HOB elevated Intervention: Promote and Optimize Oral Intake Flowsheets (Taken 05/28/2025 1228) Oral Nutrition Promotion: physical activity promoted Nutrition Interventions: food preferences provided Problem: Infection Goal: Absence of Infection Signs and Symptoms Outcome: Ongoing, Progressing Intervention: Prevent or Manage Infection Flowsheets (Taken 05/28/2025 1228) Infection Management: aseptic technique maintained Fever Reduction/Comfort Measures: lightweight bedding lightweight clothing Isolation Precautions: precautions maintained * Progress Notes - Casie Mclaughlin - 05/28/2025 12:01 PM EST PHYSICAL THERAPY TREATMENT PATIENT DATA Patient Name Dot Dale Session Date 05/28/2025 Total Treatment Time 25 min PT Discharge Recommendations Home with 24 hour assistance, Home health PT, Home health OT PT Equipment Recommendations Patient owns appropriate equipment PRECAUTIONS Medical Precautions Yes Medical Precautions: Fall precautions HOME LIVING/SET-UP Lives With Spouse, Adult, Daughter Home Type House Home Equipment shower chair, Rolling walker, Quad cane, Bedside commode Home Layout One level, Stairs to enter with rails 5 Bathroom Layout Tub/Shower combo, Walk-in shower, Shower chair, Grab bars, Handheld shower head Standard, Tall Accessible, Accessible via walker Additional Comments Patient's spouse reported that she will have 24/7-hour assistance as/if needed at time of d/c. Patient reported she was getting nursing x2/week. PRIOR LEVEL OF FUNCTION Receives help from Spouse, Daughter Level of Mobility Ambulatory- household only Mobility [place] Independent gait with device (RW) History of Falls No ADL Performance ADL Performance: Needs assistance Bathing: Needs device and assist (to wash back and hair) Upper Body Dressing: Independent Lower Body Dressing: Independent Grooming: Independent Toileting: Independent Eating: Independent Home Management Skills: Needs assist PRESENTATION Oxygen Oxygen Therapy: None (Room air) O2 Delivery Method: Nasal cannula O2 Flow Rate (L/min): 2 L/min Lines and Tubes telemetry Chest Tube Left Midaxillary;Pleural 28 Fr (Active) Chest Tube Left Midaxillary;Pleural 24 Fr (Active) PICC Double Lumen 05/20/25 Right Brachial vein (Active) Peripheral IV 05/27/25 Left Hand (Active) Pre-Session Supine, Head of bed elevated, Lines intact RN agreeable to therapy session timing Post-Session Sitting in chair, Chair alarm, Lines intact, RN notified, Call light in reach Pt's needs met. Pt positioned for comfort. SUBJECTIVE PARTICIPANTS IN CARE Visitors Present Yes, Spouse Subjective Report Pt remains unaware when pt may be discharged from [facility]. Pt is agreeable to working with PT at this time Tie Cutter (if applicable) Tie Cutter: Not Applicable OBJECTIVE & INTERVENTIONS PAIN Pain Intensity / Location Pre-Mobility: Left chest wall, pain not rated Pain Intensity / Location Post-Mobility: Left chest wall, pain not rated Prior to PT's departure: * rest was provided * pt was positioned for comfort * pillow support was provided * RN was informed of pt's pain DELIRIUM SCREENING RASS: Alert and calm Feature 3: Altered Level of Consciousness: Negative THERAPEUTIC ACTIVITY Treatment Minutes 25 PT assisted and instructed pt in functional mobility activities to improve their ability to move around safely and reduce the effects of post illness/surgery related sedentary status. Pt participatedin bed mobility, supine-sit and [id number] transfers. They were able to progress to ambulation on level surfaces. Recommend to pt/CG that pt be assisted OOB to chair for mealtimes and assisted to ambulate using rolling walker at least 3x/day during this hospitalization. Verbal and tactile cues given to pt by PT for: postural alignment, weight shifting, improved biomechanics, safety, movement sequence, hand/foot placement, assistive device management, and appropriate activity pacing. BED MOBILITY Level of [place] Physical/Non- physical Assist Adaptive Equipment Utilized Supine to Sit Maximum assist (25% patient's effort) Set-up required, Verbal Cues, HOB elevated, Moderate cues, Additional assist utilized for safety Draw sheet TRANSFERS Level of [place] Physical/Non- physical Assist Adaptive Equipment Utilized Sit to Stand Minimum assist (75% patient's effort) Set-up required, Verbal Cues, Minimal cues, Additional assist utilized for safety Walker, rolling Stand to sit Minimum assist (75% patient's effort) Verbal Cues, Minimal cues, Additional assist utilized for safety, Set-up required Walker, rolling BALANCE Postural Appearance Posture: Forward head, Rounded shoulders Level of [place] Balance Support Facilitated Activities Static Sit Standby assist Right upper extremity support, Left upper extremity support, Feet unsupported Sitting on edge of bed Dynamic Sit Contact guard Right upper extremity support, Left upper extremity support, Feet unsupported Dynamic Sitting-Balance: Anterior/Posterior weight shifts, Lateral weight shifts, Reaching for objects Static Stand Contact guard Right upper extremity support, Left upper extremity support (on walker) Standing beside bed Dynamic Stand Contact guard Right upper extremity support, Left upper extremity support (on walker)Dynamic Sitting-Balance: Lateral weight shifts, Anterior/Posterior weight shifts, Reaching for objects AMBULATION Level of [place] Distance Adaptive Equipment Utilized Ambulation Contact guard assist, Minimal verbal cues, Minimal tactile cues, Additional assist utilized for safety 50 ft Rolling walker Comments Pt self limits ambulation distance secondary to fatigue. Gait pattern: slow lilli, decreased stride length and step height. PT presence was necessary for: * decreasing patient's risk of falling while progressing pt's distances Standardized Assessments [facility] 6-Clicks Mobility Assessment Difficulty patient has turning over in bed (including adjusting bedclothes, sheets, and blankets)?:A lot Difficulty patient has sitting down on and standing up from a chair with arms (wheelchair, bedside commode, etc.)?: A little Difficulty patient has moving from lying on back to sitting on the side of the bed?: A lot How much help does the patient need moving to and from a bed to a chair (including a wheelchair)?: A little How much help does the patient need to walk in hospital room?: A little How much help does the patient need climbing 3-5 steps with a railing?: Unable [facility] 6-Clicks Mobility Assessment Total : 14 ASSESSMENT Pt was limited by pain and fatigue during this PT treatment compared to last PT treatment. However,pt demonstrated focused effort during this therapy encounter. Pt has the following impairments: impaired activity tolerance, gross functional weakness, impaired posture, impaired balance, pain, and poor transfer sequencing, which is limiting the pt from performing independent functional mobility. Based on this assessment, Pt's current level of function is lower than the reported prior level of function and for this reason further PT treatment is indicated. Inpatient PT will continue to follow. It is anticipated that once medically stable, pt should be able to DC home with family support. PT RECOMMENDATIONS Discharge Destination Home with 24 hour assistance, Home health PT, Home health OT Discharge Equipment Patient owns appropriate equipment PLAN PT to continue skilled therapy interventions to facilitate pt in reaching their functional goals. PT GOALS PT GOAL DETAILS DATE ASSESSED STATUS PROGRESS PT Goal 1: Patient will demonstrate supine <> sit independently from a flat surface PT Goal 1 Established Date: 05/20/25 PT Goal 1 Time Frame: 2 weeks PT Goal 2: Patient will demonstrate STS modified independently with least restrictive assistive device PT Goal 2 Established Date: 05/20/25 PT Goal 2 Time Frame: 2 weeks PT Goal 3: Patient will ambulate 300 feet modified independently with least restrictive assistive device PT Goal 3 Established Date: 05/20/25 PT Goal 3 Time Frame: 2 weeks PT Goal 4: Patient will navigate 5 stairs with SBA and UE assist on hand rail PT Goal 4 Established Date: 05/20/25 PT Goal 4 Time Frame: 2 weeks Written by Casie Mclaughlin on 05/28/25 at 1:11 PM. * Progress Notes - Carlos Randolph - 05/28/2025 11:59 AM EST Occupational Therapy Treatment Patient Name: Dot Dale Today's Date: 05/28/2025 OT Discharge Recommendations: Home with 24 hour assistance, Home health OT, Home health PT Equipment Recommended: Patient owns appropriate equipment Subjective Pt agreeable to OT session this date. Participants in Care Family/Caregiver Present: Yes Family/Caregiver: Spouse Tie Cutter: Not Applicable Presentation Oxygen Therapy: None (Room air) Chest Tube Left Midaxillary;Pleural 28 Fr (Active) Chest Tube Left Midaxillary;Pleural 24 Fr (Active) PICC Double Lumen 05/20/25 Right Brachial vein (Active) Peripheral IV 05/27/25 Left Hand (Active) Pre-Session: Supine, Head of bed elevated, Lines intact Pre-Session Comments: RN agreeable to therapy session Post-Session: Sitting in chair, Chair alarm, Lines intact, RN notified, Call light in reach Post-Session Comments: All needs met. Precautions Medical Precautions: Fall precautions Objective Pain Pt with left rib/flank pain at chest tube site but did not numerically rate. Pt positioned for comfort at conclusion of session, RN aware. Delirium Screening RASS: Alert and calm Confusion Assessment Method-ICU (CAM-ICU/PCAM-ICU) Feature 1: Acute Onset or Fluctuating Course: Negative Feature 2: Inattention: Negative Feature 3: Altered Level of Consciousness: Negative Feature 4: Disorganized Thinking: Negative Overall CAM-ICU/PCAM-ICU: Negative Cognition Cognition Overall Cognitive Status: Within Functional Limits Arousal/Alertness: Appropriate responses to stimuli Mood/Behavior: Alert Orientation Level: Oriented X4 Single Step Commands: Consistently, 100% of the time Multi-Step Commands: Consistently, 100% of the time Method of Communication: Verbal Bed Mobility Bed Mobility Exam: Supine to Sit Level of [place]: Maximum assist (25% patient's effort) Physical/Nonphysical Assist: Set-up required, Verbal Cues, HOB elevated, Moderate cues, Additional assist utilized for safety Transfers Transfer Exam: Sit to stand Level of [place]: Minimum assist (75% patient's effort) Physical/Nonphysical Assist: Set-up required, Verbal Cues, Minimal cues, Additional assist utilizedfor safety Assistive Device: Walker, rolling Transfer Exam: Stand to Sit Level of [place]: Minimum assist (75% patient's effort) Physical/Nonphysical Assist: Verbal Cues, Minimal cues, Additional assist utilized for safety, Set-up required Assistive Device: Walker, rolling Functional Mobility Device: Rolling walker Assistance: Contact guard assist, Minimal verbal cues, Minimal tactile cues, Additional assist utilized for safety Distance : 50 ft Balance Postural Appearance Posture: Forward head, Rounded shoulders Static Sitting Balance Static Sitting-Balance Support: Right upper extremity support, Left upper extremity support, Feet unsupported Static Sitting-Level of Assistance: Standby assist Dynamic Sitting Balance Dynamic Sitting-Balance Support: Right upper extremity support, Left upper extremity support, Feet unsupported Dynamic Sitting-Balance: Anterior/Posterior weight shifts, Lateral weight shifts, Reaching for objects Level of Assistance: Contact guard Static Standing Balance Static Standing-Balance Support: Right upper extremity support, Left upper extremity support Static Standing-Level of Assistance: Contact guard Dynamic Standing Balance Dynamic Standing-Balance Support: Right upper extremity support, Left upper extremity support Dynamic Standing-Balance: Lateral weight shifts, Anterior/Posterior weight shifts Dynamic Standing Level of Assistance: Contact guard Self-Care Interventions Self Care/Home Management (ADLs) Time Entry: 24 Therapist challenged patient to complete simulated ADL routine needed for independence in toileting, grooming routine, or kitchen tasks with participation in ADL retraining emphasizing functional endurance, energy conservation, and functional mobility in preparation for sequential self-care. Therapist facilitated safe environment to engage pt in environmental navigation task simulating functionalmobility in home environment to challenge maneuvering around objects, environment scanning, and to improve functional strength and endurance for sequential ADL/IADL tasks. Pt engaged in functional ambulation task in room and hallway requiring CGA and RW. Pt politely declined further ADL's. Pt required verbal cues for hand placement/body positioning for safety. Lower Extremity Dressing Sock Level of Assistance: Dependent LE Dressing Where Assessed: Edge of bed LE Dressing Interventions: Pt required assistance to elham b/l socks due to increased pain at chest tube site. Assessment Pt was polite, cooperative to instructions, and put forth good effort during OT treatment this date. Pt able to tolerate session well without adverse reactions. Pt is limited by fatigue, weakness, impaired activity tolerance, and impaired functional mobility negatively impacting performance and independence with ADL routines and making pt a fall risk. Pt will benefit from continued skilled OT while admitted to improve deficits and increase independence with ADL/IADL tasks. OT Recommendations Discharge Destination: Home with 24 hour assistance, Home health OT, Home health PT Discharge Equipment: Patient owns appropriate equipment Plan Continue OT plan of care. Goals OT GOAL DETAILS Goal Established Date Time Frame Goal Status OT Goal 1: Patient/Family/Caregiver will be independent in bilateral upper extremity home exercise program to promote increased strength/activity tolerance required for engagement in higher level self-cares/mobility. 05/20/25 2 weeks OT Goal 2: Patient will complete 2-step grooming routine in standing position with modified independence (AE as needed). 05/20/25 2 weeks OT Goal 3: Patient will complete total body dressing with modified independence (AE as needed). 05/20/25 2 weeks OT Goal 4: Patient will complete toileting routine (navigation < > bathroom, transfer < > standard toilet, manage clothing, and complete lacey-care hygiene) with modified independence (AE as needed). 05/20/25 Written by Carlos Randolph on 05/28/25 at 3:34 PM. * Progress Notes - Josee Hull, PharmD - 05/28/2025 10:26 AM EST Images from the original note were not included. Pharmacist TPN Progress Note Patient: Dot Dale Age: 69 y.o. Admission Date: [id number] Subjective/Objective/Hospital Course: 69 y.o. 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 Patient has been on TPN previously (~03/30-04/25). 05/20: Patient agreeable to PICC and TPN, switched appetite stimulants (megestrol --> dronabinol), CT scan pending 05/21: 05/20/25 CT abd/pelv demonstrates loculated large left pleural effusion, chest tube placement with IR 05/23: possible washout with TSS this weekend vs next week 05/27: Left VATS total pulmonary decortication Problem List[1] Past Medical History[2] Surgical History[3] Allergies: Patient has no known allergies. LABS: Results from last 7 days Lab Units 05/28/25 04505/27/25 0452 05/26/25 0550 05/25/25 0507 05/24/25 0458 05/23/25 04205/22/25 0353 GLUCOSE mg/dL 168* 154* 170* 151* 167* 177* 164* BUN mg/dL 14 12 12 12 12 11 10 CREATININE mg/dL 0.46* 0.46* 0.44* 0.42* 0.45* 0.43* 0.54* SODIUM mmol/L 133* 135* 133* 135* 137 134* 136 POTASSIUM mmol/L 4.3 4.2 4.2 4.2 4.4 4.2 4.2 CHLORIDE mmol/L 102 103 101 104 105 103 105 CO2 mmol/L 23 23 21* 22 22 21* 21* CALCIUM mg/dL 7.5* 8.0* 8.0* 8.0* 7.7* 7.9* 7.7* PHOSPHORUS mg/dL 2.9 3.3 3.6 2.7 2.8 2.6 3.3 MAGNESIUM mg/dL 1.9 2.0 1.9 1.9 1.9 1.8* 1.9 Results from last 7 days Lab Units 05/28/25 04505/27/25 0452 05/26/25 0550 05/25/25 0507 05/24/25 0458 05/23/25 0429 05/22/25 0353 WBC 10*3/uL 15.74* 14.09* 15.57* 15.22* 13.62* 13.42* 14.71* HEMOGLOBIN g/dL 9.8* 9.2* 9.7* 10.0* 10.0* 10.4* 10.6* HEMATOCRIT % 29.5* 28.2* 29.7* 30.2* 30.0* 30.4* 32.3* PLATELETS 10*3/uL 538* 584* 586* 538* 517* 517* 444* Results from last 7 days Lab Units 05/28/25 0459 05/27/25 0452 05/26/25 0550 05/25/25 0507 05/24/25 0458 05/23/25 0429 05/22/25 0353 ALT U/L 10 12 14 13 10 8* 5* AST U/L 14 15 22 20 22 16 11 ALKALINE PHOSPHATASE U/L 77 83 86 89 84 73 77 BILIRUBIN TOTAL mg/dL 0.4 0.5 0.5 0.4 0.3 0.3 0.3 ALBUMIN g/dL 1.9* 2.1* 2.2* 2.4* 2.2* 2.1* 2.0* Nutrition Labs: Lab Results Component Value Date TRIG 119 05/20/2025 BILITOT 0.4 05/28/2025 ALBUMIN 1.9 (L) 05/28/2025 PREALBUMIN 3.3 (L) 05/16/2025 HGBA1C 5.4 12/05/2020 CRP 1.5 12/07/2020 Microbiology Results Procedure Component Value Units Date/Time Blood Culture (Aerobic/Anaerobet Set) [[id number]] Collected: 05/14/25231 Order Status: Completed Specimen: Blood from Wrist, Left Updated: 05/19/25 0601 Culture No growth at day 5 Narrative: Low blood volume submitted, results may be compromised Blood Culture (Aerobic/Anaerobet Set) [[id number]] Collected: 05/14/25 023 Order Status: Completed Specimen: Blood from Wrist, Right Updated: 05/19/25 0551 Culture No growth at day 5 Narrative: Low blood volume submitted, results may be compromised Body Fluid Culture and Gram Stain [[id number]] (Abnormal) (Susceptibility) Collected: 05/14/25 1647 Order Status: Completed Specimen: Body Fluid (specify site): Updated: 05/18/25 1436 Culture Heavy Growth 4+ Streptococcus constellatus Comment: This isolate has been identified using the FDA Approved MALDI [employer] CA System The organism value for this result has been updated. These results have been appended to the previously preliminary verified report. Edited result: Previously reported as Streptococcus species on 05/15/2025 at 1553 EST. 1+ Haemophilus parainfluenzae Comment: This isolate has been identified using the FDA Approved MALDI [employer] [place] System The organism value for this result has been updated. These results have been appended to the previously preliminary verified report. Gram Stain Result Numerous Gram positive cocci in pairs and chains Numerous Gram negative rods Numerous Polymorphonuclear leukocytes Susceptibility Streptococcus constellatus ETEST Penicillin G 0.094 Susceptible Susceptibility Haemophilus parainfluenzae Method Not Specified Beta Lactamase Negative Negative Susceptibility Comments Haemophilus parainfluenzae This organism is predictably susceptible to ampicillin or amoxicillin. Vitals: Visit Vitals BP 108/65 Pulse 105 Temp 36.9 ??C (98.4 ??F) (Oral) Resp 25 [place] Coma Scale Score: 15 Melchor Scale Score: 18 Oxygen Therapy: Supplemental oxygen Skin Integrity: Other (Comment) (Left chest tube x 2. Unable to assess d/t dressing) Edema: Right lower extremity, Left lower extremity Wt Readings from Last 3 Encounters: 05/28/25 66.7 kg (147 lb 0.8 oz) 04/30/25 70.9 kg (156 lb 4.9 oz) 04/23/25 72.5 kg (159 lb 13.3 oz) Current Diet Order: Dietary Orders (From admission, onward) Start Ordered 05/27/252212 Adult diet Diet texture: Regular (Adult Diet Panel) Diet effective now References: IDDSI Diet Texture Guide Question: Diet texture Answer: Regular 05/27/253 05/27/252212 Oral nutrition supplements (Adult Diet Panel) Until discontinued Question Answer Comment Supplement frequency: All meals All meals supplement: Boost Very High Calorie Vanilla All meals supplement: Boost Very High Calorie Chocolate All meals supplement: Boost Very High Calorie Griffin Quantity for All Meals of Boost Very High Calorie - Vanilla One Quantity for All Meals of Boost Very High Calorie - Chocolate One Quantity for All Meals of Boost Very High Calorie - Griffin One 05/27/252212 Current Medications Current Scheduled Medications[4] Current Continuous Medications[5] Current Anthropometrics: Admit weight: 70.6 kg Height: 162.6 cm (5' 4 ) [place] body weight: 54.7 kg (120 lb 9.5 oz) Adjusted ideal body weight: 59.5 kg (131 lb 2.8 oz) (129%) of IBW Body mass index is 25.24 kg/m??. Adjusted wt: 58.7 kg (if over 125% of IBW) CENTRAL IV Access: PICC (05/20/25) Estimated Nutritional Needs: HBE: 1161 kcal/day Stress Factor: 1.2 - 1.3 Total Calories/day: 1393 - 1626 Protein (amino acids): 1.3 - 1.7 grams/kg Protein (Amino acids): 76.3 - 99.8 grams/day Measured Energy Needs: Respiratory Quotient: 05/28/2025 Plan/Recommendation: Labs reviewed. Continue goal TPN. GOAL TPN: DEXTROSE: 18% (281 g/day CHO) AMINO ACIDS: 6% (93.6 g/day - 1.59 g/adjusted kg/day Amino acids), Na 100 meq/L @ 65 ml/hr, with 30mg/day thiamine, MVI, and Trace elements Every other day 250ml 20% SMOF lipids 1579 Total kcal/day - 26.9 kcal/adjusted kg/day Replace electrolytes outside of TPN Calcium and/or Phosphorus supplements MUST be in a separate line from the TPN to avoid precipitation Obtain BMP, magnesium, and Phos daily x 3days and then at least twice weekly Obtain LFT and TGLY weekly I have monitored the TPN therapy, including the labs, and have communicated any modifications with the primary medical/surgical team. Continue current TPN formula and lipid regimen as above. I have communicated the TPN plan with the IV room. 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 Available via [email or web address] Secure Chat [1] Patient Active Problem List Diagnosis CN III palsy, left Pituitary adenoma (CMS/HCC) IPMN (intraductal papillary mucinous neoplasm) Abnormal blood electrolyte level HLD (hyperlipidemia) History of CVA (cerebrovascular accident) Leukocytosis On total parenteral nutrition (TPN) Peripancreatic fluid collection Abdominal pain Pleural effusion HTN (hypertension) Vascular problem Pancreatic cyst Pleural effusion associated with pulmonary infection [2] Past Medical History: Diagnosis Date Cranial nerve III palsy High cholesterol Pancreatic cyst Unspecified injury of unspecified wrist, hand and finger(s), initial encounter Hand injury [3] Past Surgical History: Procedure Laterality Date CYSTOSCOPY ENDOSCOPY EXTERNAL - ECG EXTERNAL - ECG [4] acetaminophen, 1,000 mg, Oral, q8h aspirin, 81 mg, Oral, Daily enoxaparin, 40 mg, Subcutaneous, Daily fat emulsion fish/plant based, 250 mL, Intravenous, Every other day gabapentin, 300 mg, Oral, Nightly insulin regular, 7 Units, Subcutaneous, q6h KHUSHI insulin regular, 0-10 Units, Subcutaneous, q6h KHUSHI ipratropium-albuterol, 3 mL, Nebulization, q6h RT Lidocaine, 1 patch, Apply externally, q24h methocarbamol, 1,000 mg, Oral, 4x daily pantoprazole, 40 mg, Oral, Daily piperacillin-tazobactam, 3.375 g, Intravenous, q6h senna-docusate, 1 tablet, Oral, Nightly sodium chloride, 10 mL, Intravenous, q12h sodium chloride, 10 mL, Intravenous, q12h sodium chloride, 3 mL, Nebulization, BID [5] Adult 2-in-1 TPN, 65 mL/hr, Last Rate: 65 mL/hr (05/28/25 0821) * Progress Notes - Kalee Hannah - 05/28/2025 10:00 AM EST Music Therapy Note Subjective: Patient Presented: Reclining in bed Initial Behavioral Presentation: Moaning/groaning, Grimacing/frowning Patient's initial self-reported level of pain/discomfort: 20 Intrasession Behavioral Presentation: Neutral, Calm/still After Disposition/ Affect: Calm/still Patient's ending self-reported level of pain/discomfort: 3 Others Present: Spouse/significant other, Staff Treatment Goals & Interventions: Increase: Spiritual comfort, Quality of life Decrease: Pain/discomfort Music Therapy Interventions: Active music listening Communications: Methods: Verbalizations Responses: Making choices, Positive comments about the music Behavioral Observations: Responses: Active Listening, Eye contact, Head nodding, Relaxation behaviors Engagement Level: Moderate Engagement Comments: Comments: Pt had just been repositioned in bed by nursing staff and moaned/groaned during and after. Pt welcomed MT for relaxation and distraction from pain (spouse rated her pain a 10, Pt rated her pain a 20). Pt nodded head frequently during music and later confirmed agreement with lyrics and enjoyment. Pt received breathing treatment during session and closed eyes afterward. At end of session,Pt reported significantly less pain (rated it a 3) and appeared more relaxed than at start of session. Pt's spouse made several positive comments about the music during session and thanked MT-. Length of Visit: Length of Visit: 30 minutes Plan of Care: Plan of Care: Continue to address above goals and additional goals as appropriate during hospitalization * Progress Notes - Conrado Park APRN - 05/28/2025 9:16 AM EST Images from the original note were not included. Department of Surgery Division of Surgical Oncology Surgery Progress Note 05/28/25 Dot Dale Subjective Subjective: HPI 69F with history of IPMN s/p distal panc/spleen c/b post-op pancreatic leak requiring extended period with surgical drain in place (removed on 04/23). Presented with worsening abdominal pain, fever/chills and found to have peripancreatic fluid collection. 03/20/25: distal panc/spleen [Monica] 05/14: IR placed abdominal drain Interval: NAEON. Pain managed. No N/V. TSS completed VATs yesterday. Was reported that one chest tube has an air leak, was not present on exam this morning, output serosanginous. CXR demonstrating improved effusion. She had not attempted PO intake postop nor ambulation. Had not attempted IS postop.On 2L NC this morning. Declined PT / OT yesterday, this was encouraged this morning. No BM for the past 2 days added doc-senna. - Labs pending I/O: UOP x2 (x9), BM - (-), L chest tube-24Fr 200, L chest tube-28Fr 45 Edited by: Flora Salvador DO at 05/28/2025 0611 Review of Systems: Relevant review of systems was obtained as able and is negative unless stated above in HPI. Objective Objective: Vital signs: Vitals: 05/28/25 0755 BP: 108/65 Pulse: 105 Resp: 25 Temp: 36.9 ??C (98.4 ??F) SpO2: 96% Physical Exam: Physical Exam Vitals reviewed. Constitutional: General: She is not in acute distress. Appearance: She is ill-appearing. HENT: Head: Normocephalic and atraumatic. Nose: Nose normal. Mouth/Throat: Mouth: Mucous membranes are dry. Eyes: General: No scleral icterus. Extraocular Movements: Extraocular movements intact. Conjunctiva/sclera: Conjunctivae normal. Cardiovascular: Rate and Rhythm: Normal rate and regular rhythm. Pulmonary: Effort: Pulmonary effort is normal. No respiratory distress. Comments: L mid axillary chest tube x2 SS output atrium to water seal no leak appreciated Abdominal: General: There is no distension. Palpations: Abdomen is soft. Tenderness: There is abdominal tenderness (ATTP). There is no guarding or rebound. Comments: Laparotomy incision healing appropriately Musculoskeletal: General: No swelling. Normal range of motion. Cervical back: Normal range of motion. Skin: General: Skin is warm and dry. Capillary Refill: Capillary refill takes less than 2 seconds. Coloration: Skin is not jaundiced. Neurological: General: No focal deficit present. Mental Status: She is alert and oriented to person, place, and time. Psychiatric: Mood and Affect: Mood normal. Behavior: Behavior normal. Thought Content: Thought content normal. Judgment: Judgment normal. Intake/Output Summary (Last 24 hours) at 05/28/2025 0916 Last data filed at 05/28/2025 0821 Gross per 24 hour Intake 2365.47 ml Output 1023 ml Net 1342.47 ml Lines/Drains/Tubes: Patient Lines/Drains/Airways Status Active Airway None Output by Drain (mL) 05/26/25 0700 - 05/26/25 1859 05/26/25 1900 - 05/27/25 0659 05/27/25 0700 - 05/27/25 1859 05/27/25 1900 - 05/28/25 0659 05/28/25 0700 - 05/28/25 0916 Requested LDAs do not have output data documented. Labs in last 18 hours: CBC WBC 15.74 (H) Hb 9.8 (L) Plt 538 (H) Hct 29.5 (L) ANC ?? INR ??, PTT ??, Anti-Xa ?? MCV 88 BMP Na 133 (L) Cl 102 BUN 14 Glu 168 (H) K 4.3 Co2 23 Cr 0.46 (L) Ca 7.5 (L) iCa ?? Mg 1.9, Phos 2.9 Lactate ?? LFT AST 14 AlkPhos 77 T Prot 5.7 (L) ALK 10 Bili 0.4 Alb ?? D.Bili ?? Lab Trends: H/H Results from last 7 days Lab Units 05/28/25 0459 05/27/25 0452 05/26/25 0550 HEMOGLOBIN g/dL 9.8* 9.2* 9.7* HEMATOCRIT % 29.5* 28.2* 29.7* INR Cr Results from last 7 days Lab Units 05/28/25 04505/27/25 0452 05/26/25 0550 CREATININE mg/dL 0.46* 0.46* 0.44* Lactate No lab exists for component: LACTTEVEN Radiographic Interpretation: I have reviewed the imaging above and agree with the radiologist interpretation. XR Chest 1 View Result Date: 05/27/2025 Improved aeration of the left lung with decreased left effusion and opacity status post placement of a left chest tube CRITICAL RESULT: No COMMUNICATION: Per this written report. Drafted by Chuck Whittington MD on 05/27/2025 7:46 PM Final report signed by Chuck Whittington MD on 05/27/2025 7:47 PM Medications reviewed. Vital signs reviewed. Labs reviewed. Assessment/Plan Assessment and Plan: Medical Problems Problem List * (Principal) Peripancreatic fluid collection CN III palsy, left Overview Addendum 03/31/2025 7:55 AM by Katlyn Hopkins APRN Hx of Abnormal blood electrolyte level Overview Signed 03/21/2025 9:54 AM by Katlyn Hopkins APRN - daily/PRN CMP, Mg, Phos - replete as appropriate - goal: K>4, phos>3, mg>2 HLD (hyperlipidemia) Overview Addendum 03/28/2025 8:24 AM by Katlyn Hopkins APRN Continue statin History of CVA (cerebrovascular accident) Overview Signed 03/21/2025 9:58 AM by Katlyn Hopkins APRN 11/2020 CT Head showed old left occipital & left temporal infarcts. On ASA 81mg daily. Leukocytosis Overview Addendum 04/04/2025 9:46 AM by Katlyn Hopkins APRN Down trending Daily CBC Abx: fidaxomicin (changed to Vancomycin due to cost on day of dc (03/30-04/09) levofloxacin/flagyl (03/30-04/12) Zosyn 03/29-03/30 zosyn [03/20-] x48h post-op Cx: GI panel/C. Diff: +GDH- Toxin, all other negative (03/30) On total parenteral nutrition (TPN) Overview Addendum 04/04/2025 9:18 AM by Katlyn Hopkins APRN - initiated on 03/30/25, continue on dc -daily CMP,mg,phos -weekly pre-albumin, triglycerides Abdominal pain HTN (hypertension) Vascular problem Pancreatic cyst Pleural effusion associated with pulmonary infection Pituitary adenoma (CMS/HCC) Overview Deleted 03/21/2025 10:00 AM by Katlyn Hopkins APRN IPMN (intraductal papillary mucinous neoplasm) Overview Addendum 04/04/2025 9:18 AM by Katlyn Hopkins APRN 03/20/2025:ex-lap, SAMIA, distal pancreatectomy w/splenectomy, celiac axis node dissection [Monica] Keep DARIAN bulb on dc Pleural effusion Present on Admission: Peripancreatic fluid collection On total parenteral nutrition (TPN) Pituitary adenoma (CMS/HCC) Plan: [ ] schedule splenectomy vaccines [ ] AM CXR Daily [ ] FU TSS recs on chest tubes [ ] Ask PT / OT to see her today - Continues to have poor PO. TPN, regular diet with boost. - Chest tube fluid studies - amylase, lipase - per TSS - IR chest tube 05/21 NGD4 - On zosyn 05/20 until WBC normalizes -VATs completed with two L chest tubes in place - Drain cx: Streptococcus constellatus, H. Parainfluenzae. Diet - Regular, TPN, boosts Abx - zosyn Pain - prn oxy, tylenol, robaxin, lido patch Ppx - pLOV, PPI Endo - subcutaneous Bowel reg - doc senna TLD - L CT x2, R PICC PT/OT - ordered Dispo - pending Edited by: Flora Salvador DO at 05/28/2025 0611 Dispo: Continue Current Level of Care Conrado Park APRN Cosigned by Lokesh Anderson MD at 06/05/2025 8:38 PM EST Associated attestation - Lokesh Anderson MD - 06/05/2025 8:38 PM EST I attest to being involved in more than half the total time in patient care. * Care Plan - Rylie Valentin RN - 05/28/2025 12:57 AM EST Problem: Adult Inpatient Plan of Care Goal: Plan of Care Review Outcome: Ongoing, Progressing Flowsheets (Taken 05/28/202555) Progress: no change Outcome Evaluation: Patient verbalized that she was agreeable to POC Plan of Care Reviewed With: patient spouse Goal: Patient-Specific Goal (Individualized) Outcome: Ongoing, Progressing Goal: Absence of Hospital-Acquired Illness or Injury Outcome: Ongoing, Progressing Intervention: Prevent Skin Injury Flowsheets (Taken 05/28/202555) Body Position: weight shifting Skin Protection: incontinence pads utilized protective footwear used Goal: Optimal Comfort and Wellbeing Outcome: Ongoing, Progressing Intervention: Monitor Pain and Promote Comfort Flowsheets (Taken 05/28/202555) Pain Management Interventions: medication (see MAR) emotional support pillow support provided position adjusted quiet environment facilitated relaxation techniques promoted rest Problem: Pain Acute Goal: Optimal Pain Control and Function Outcome: Ongoing, Progressing Intervention: Develop Pain Management Plan Flowsheets (Taken 05/28/202555) Pain Management Interventions: medication (see MAR) emotional support pillow support provided position adjusted quiet environment facilitated relaxation techniques promoted rest Problem: Fall Injury Risk Goal: Absence of Fall and Fall-Related Injury Outcome: Ongoing, Progressing Intervention: Identify and Manage Contributors Flowsheets (Taken 05/28/202555) Medication Review/Management: medications reviewed Self-Care Promotion: independence encouraged Problem: Skin Injury Risk Increased Goal: Skin Health and Integrity Outcome: Ongoing, Progressing Intervention: Optimize Skin Protection Flowsheets (Taken 05/28/202555) Activity Management: activity adjusted per tolerance Pressure Reduction Techniques: frequent weight shift encouraged Pressure Reduction Devices: positioning supports utilized Skin Protection: incontinence pads utilized protective footwear used Head of Bed (HOB) Positioning: HOB elevated Problem: Infection Goal: Absence of Infection Signs and Symptoms Outcome: Ongoing, Progressing Intervention: Prevent or Manage Infection Flowsheets (Taken 05/28/202555) Infection Management: aseptic technique maintained Fever Reduction/Comfort Measures: lightweight bedding lightweight clothing Isolation Precautions: precautions maintained * Significant Event - Jodie Hager MD - 05/27/2025 9:37 PM EST [facility] Department of Surgery Division of Thoracic Surgery Post Operative Check: Subjective: Procedure: Left VATS, decortication Patient currently reports pain at chest tube sites. Patient is currently NPO, denies any nausea or vomiting. Patient has not yet ambulated due to pain/weakness and has voided since surgery. Denies any shortness of breath, chest pain, or any other acute complaints at this time. Objective: Vitals: Visit Vitals BP 137/79 Pulse 94 Temp 36.8 ??C (98.2 ??F) Resp 20 IN/Out: Intake/Output Summary (Last 24 hours) at 05/27/20257 Last data filed at 05/27/2025 1826 Gross per 24 hour Intake 1922.1 ml Output 500 ml Net 1422.1 ml Physical Exam: GENERAL: Well-developed, well-nourished, not in acute distress NECK: Normal range of motion, supple, no JVD CARD: Regular rate; anterior left with 180 SS output and posterior left chest tube with 15 ml SS output; both to suction -20 RESP: Normal pulmonary effort, symmetric expansion, non-labored, not in respiratory distress GI: Soft, appropriately tender post operatively, non-distended, no guarding or rebound. Incisions clean, dry, and intact. Extremities: No edema SKIN: Warm, dry, and without rash, sores, or lesions NEURO: Mental status at baseline, oriented to person, place, and time Labs: WBC 14.09 (H) Hgb 9.2 (L) PLT 584 (H) HCT 28.2 (L) INR ?? PTT ?? antiXa ?? Na 135 (L) Cl 103 BUN 12 Gluc 154 (H) K 4.2 CO2 23 Creat 0.46 (L) Ca 8.0 (L) iCa ?? Mg 2.0 Phos 3.3 pH ?? pCO2 ?? pO2 ?? SPO2 ?? FIO2 ?? HCO3 ?? BE ?? Lactate ?? Assessment and Plan: Dot Dale is a 69 y.o. female s/p Left VATS, decortication - Diet Status: NPO - Anticoagulation/DVT ppx: lovenox (held) - MMPC - Drains stripped x2 I have answered and addressed all issues and concerns from the patient and nursing staff. I have notified senior resident/attending clin application specialist with any issues or concerns. Jodie Hager MD General Surgery PGY1 * Anesthesia PACU Signout - Puneet Sims MD - 05/27/2025 8:23 PM EST Patient: Dot Dale Anesthesia Type: general Vitals Value Taken Time BP 132/73 05/27/25 20:20 Temp 36.7 ??C (98 ??F) 05/27/25 18:18 Pulse 93 05/27/25 20:22 Resp 19 05/27/25 20:22 SpO2 96 % 05/27/25 20:22 Vitals shown include unfiled device data. Anesthesia PACU Signout Patient location during evaluation: PACU Patient participation: complete - patient participated Level of consciousness: baseline and awake Pain management: adequate (pain score 0-3) Airway patency: natural airway Hydration status: acceptable PONV: none Cardiovascular status: acceptable and hemodynamically stable Respiratory status: acceptable, spontaneous ventilation, nonlabored ventilation and nasal cannula Discharge Disposition: admit to inpatient unit Comments: Sleeping. Complains of moderate pain when awake. Will be eligible for additional pain meds when more awake. Cosigned by Suma Oseguera MD at 05/27/2025 8:41 PM EST Associated attestation - Suma Oseguera MD - 05/27/2025 8:41 PM EST I agree with the findings and plan as documented. * Op Note - Dylon Griggs MD - 05/27/2025 4:00 PM EST Operative Note Date: 05/27/25 Location: [facility] Name: Dot Dale DOB: 1955, Diagnoses: Pre-op Diagnosis Empyema Post-op Diagnosis Empyema Procedure(s): Diagnostic and therapeutic flexible bronchoscopy Left VATS total pulmonary decortication Attending Surgeon(s): * Dylon Griggs - Primary Still Operator Batch Or Continuous(s): * Xavier Marsh DO - Resident - Assisting * Jose Francisco Beltran MD - Resident - Assisting Anesthesia: General ASA: III Blood Administration: Blood Product Administration History Product Date Volume Status Transfuse RBC RBC 05/27/2025 350 mL Completed 05/27/25 1827 Estimated Blood Loss: 500 mL Drains: Chest Tube Left Midaxillary;Pleural 28 Fr (Active) Function -20 cm H2O 05/28/25600 Chest Tube Air Leak No 05/28/25600 Patency Intervention Tip/tilt 05/28/25600 Drainage Description Serosanguineous 05/28/25600 Dressing Status Clean;Dry 05/28/25600 Site Assessment Clean;Dry 05/28/25600 Surrounding Skin Dry;Intact 05/28/25600 Output (mL) 28 mL 05/28/25600 Chest Tube Left Midaxillary;Pleural 24 Fr (Active) Function -20 cm H2O 05/28/25600 Chest Tube Air Leak Yes 05/28/25600 Patency Intervention Tip/tilt 05/28/25600 Drainage Description Serosanguineous 05/28/25600 Dressing Status Clean;Dry 05/28/25600 Site Assessment Clean;Dry 05/28/25600 Surrounding Skin Dry;Intact 05/28/25600 Output (mL) 250 mL 05/28/25600 Specimen: Specimens ID Source Frozen? A Other (specify site) Description: Left Pleural Fluid Findings: Thick fibropurulent debris with thin straw to light green colored pleural fluid consistent with empyema. Indications: Dot Dale is a 69 y.o. female with PMH of IPMN s/p distal panc/spleen c/b pancreaticleak s/p surgical drain (removed on 04/23) with worsening abdominal pain, fever/chills presenting with a loculated pleural effusion that failed thoracostomy x2. We recommended surgical decortication. The risks, benefits and alternatives of the procedure were discussed at length with the patient's decision maker and they expressed understanding of these and gave informed consent to proceed. Narrative: The patient presented to the preoperative holding area, where he was identified and the operative side was marked. She was then taken to the operating theatre where a formal time-out procedure was performed, confirming patient identity, planned procedure, and availability of all equipment and staff. 5000 units of subcutaneous heparin were administered and sequential compression devices were applied to the lower extremities for DVT prophylaxis. IV antibiotics were administered prior to incision.The patient was placed under general anesthesia and intubated with a double lumen endotracheal tube. I performed diagnostic and therapeutic flexible bronchoscopy with aspiration of moderate secretions. The anatomy was normal and there were no endoluminal lesions. There was moderate diffuse extrinsic compression of the left lung, consistent with the large fluid collection. The patient was then placed in right lateral decubitus position with flexion. The left chest was prepared and draped in normal sterile fashion. We made a 5 mm incision in the 7th rib interspace at the mid-axillary line and used a 5 mm Optiview port to enter the empyema cavity under direct visualization. Turbid fluid was aspirated and sent for GS/culture and amylase/lipase. The chest was insufflated to 8 mm Hg and a thoracoscope was inserted. Using blunt dissection with the scope, the lower and upper lobe adhesions to the chest wall were taken down until it was safe to place 1 cm anterior axillary line port at the 5th and 8th interspaces. We continued to perform lysis of adhesions until the lung was completely freed from the chest wall. A large pocket of pus/fibrinous materal between the posterior lung and chest wall, extending from diaphragm to chest apex, was encountered during this dissection. We turned our a ttention to decortication. A well-developed and very adherent rind was present along the entire lung surface and the fissures were completely obscured. Using tedious blunt dissection the rind was freed from all lobes and the fissures were freed as well. The lungs expanded well with valsalva. We place a posterior 28 Fr straight chest tube and an inferior 24 Fr Jaya chest tube. The incisions were c losed in a multi-layered fashion with 0-Vicryl at the chest wall fascia, 3-0 Vicryl deep dermals and 4-0 Monocryl subcuticular. The incisions were cleansed and Dermabond applied. The patient was removed from general anesthesia and awoke without difficulty. The patient was transported to the recovery area in stable condition. All sponge and instrument counts were correct at the conclusion of the case. I was present and scrubbed for the entire case. Complications: None; patient tolerated the procedure well. Submitted by: Dylon Griggs MD - 05/28/2025 * Brief Op Note - Xavier Marsh DO - 05/27/2025 4:00 PM EST Date: 05/27/25 Location: [facility] Name: Dot Dale, : 1955, Diagnoses: Pre-op Diagnosis Pleural effusion Post-op Diagnosis Pleural effusion Procedure(s): Left VATS, decortication Attending Surgeon(s): * Dylon Griggs - Primary Still Operator Batch Or Continuous(s): * Xavier Marsh DO - Resident - Assisting * Jose Francisco Beltran MD - Resident - Assisting Anesthesia: General ASA: III Blood Administration: Blood Product Administration History Product Date Volume Status Transfuse RBC RBC 05/27/2025 350 mL Stopped Estimated Blood Loss: 500 mL Drains: * None in log * Specimen: Specimens ID Source Frozen? A Other (specify site) Description: Left Pleural Fluid Findings: Numerous loculated pleural fluid collections Pleural peel removed with good lung expansion at end of case Diffuse raw surface oozing, transfused 1 unit intraoperatively Complications: None; patient tolerated the procedure well. Submitted by: Xavier Marsh DO - 05/27/2025 Cosigned by Dylon Griggs MD at 05/30/2025 7:33 AM EST Associated attestation - Dylon Griggs MD - 05/30/2025 7:33 AM EST I was present for the entirety of the procedure(s). * Progress Notes - Josee Hull PharmD - 05/27/2025 11:13 AM EST Images from the original note were not included. Pharmacist TPN Progress Note Patient: Dot Dale Age: 69 y.o. Admission Date: [id number] Subjective/Objective/Hospital Course: 69 y.o. 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 Patient has been on TPN previously (~03/30-04/25). 05/20: Patient agreeable to PICC and TPN, switched appetite stimulants (megestrol --> dronabinol), CT scan pending 05/21: 05/20/25 CT abd/pelv demonstrates loculated large left pleural effusion, chest tube placement with IR 05/23: possible washout with TSS this weekend vs next week 05/27: VATS decortication today Problem List[1] Past Medical History[2] Surgical History[3] Allergies: Patient has no known allergies. LABS: Results from last 7 days Lab Units 05/27/25 0452 05/26/25 0550 05/25/25 0507 05/24/25 0458 05/23/25 0429 05/22/25 0353 05/21/25 0315 GLUCOSE mg/dL 154* 170* 151* 167* 177* 164* 116* BUN mg/dL 12 12 12 12 11 10 11 CREATININE mg/dL 0.46* 0.44* 0.42* 0.45* 0.43* 0.54* 0.61 SODIUM mmol/L 135* 133* 135* 137 134* 136 136 POTASSIUM mmol/L 4.2 4.2 4.2 4.4 4.2 4.2 4.4 CHLORIDE mmol/L 103 101 104 105 103 105 105 CO2 mmol/L 23 21* 22 22 21* 21* 21* CALCIUM mg/dL 8.0* 8.0* 8.0* 7.7* 7.9* 7.7* 7.9* PHOSPHORUS mg/dL 3.3 3.6 2.7 2.8 2.6 3.3 3.3 MAGNESIUM mg/dL 2.0 1.9 1.9 1.9 1.8* 1.9 1.9 Results from last 7 days Lab Units 05/27/25 0452 05/26/25 0550 05/25/25 0507 05/24/258 05/23/2542805/22/25 03505/21/25 0315 WBC 10*3/uL 14.09* 15.57* 15.22* 13.62* 13.42* 14.71* 18.72* HEMOGLOBIN g/dL 9.2* 9.7* 10.0* 10.0* 10.4* 10.6* 11.6 HEMATOCRIT % 28.2* 29.7* 30.2* 30.0* 30.4* 32.3* 34.3 PLATELETS 10*3/uL 584* 586* 538* 517* 517* 444* 419* Results from last 7 days Lab Units 05/27/25 0452 05/26/25 0550 05/25/25 0507 05/24/25 0458 05/23/25 0429 05/22/25 0353 05/21/25 0315 ALT U/L 12 14 13 10 8* 5* 8* AST U/L 15 22 20 22 16 11 12 ALKALINE PHOSPHATASE U/L 83 86 89 84 73 77 80 BILIRUBIN TOTAL mg/dL 0.5 0.5 0.4 0.3 0.3 0.3 0.5 ALBUMIN g/dL 2.1* 2.2* 2.4* 2.2* 2.1* 2.0* 2.3* Nutrition Labs: Lab Results Component Value Date TRIG 119 05/20/2025 BILITOT 0.5 05/27/2025 ALBUMIN 2.1 (L) 05/27/2025 PREALBUMIN 3.3 (L) 05/16/2025 HGBA1C 5.4 12/05/2020 CRP 1.5 12/07/2020 Microbiology Results Procedure Component Value Units Date/Time Blood Culture (Aerobic/Anaerobet Set) [[id number]] Collected: 05/14/25 0232 Order Status: Completed Specimen: Blood from Wrist, Left Updated: 05/19/25 0601 Culture No growth at day 5 Narrative: Low blood volume submitted, results may be compromised Blood Culture (Aerobic/Anaerobet Set) [[id number]] Collected: 05/14/25 0232 Order Status: Completed Specimen: Blood from Wrist, Right Updated: 05/19/25 0551 Culture No growth at day 5 Narrative: Low blood volume submitted, results may be compromised Body Fluid Culture and Gram Stain [[id number]] (Abnormal) (Susceptibility) Collected: 05/14/25 1647 Order Status: Completed Specimen: Body Fluid (specify site): Updated: 05/18/25 1436 Culture Heavy Growth 4+ Streptococcus constellatus Comment: This isolate has been identified using the FDA Approved [email or web address] [place] System The organism value for this result has been updated. These results have been appended to the previously preliminary verified report. Edited result: Previously reported as Streptococcus species on 05/15/2025 at 1553 EST. 1+ Haemophilus parainfluenzae Comment: This isolate has been identified using the FDA Approved [email or web address] [place] System The organism value for this result has been updated. These results have been appended to the previously preliminary verified report. Gram Stain Result Numerous Gram positive cocci in pairs and chains Numerous Gram negative rods Numerous Polymorphonuclear leukocytes Susceptibility Streptococcus constellatus ETEST Penicillin G 0.094 Susceptible Susceptibility Haemophilus parainfluenzae Method Not Specified Beta Lactamase Negative Negative Susceptibility Comments Haemophilus parainfluenzae This organism is predictably susceptible to ampicillin or amoxicillin. Vitals: Visit Vitals BP (!) 145/73 (BP Location: Right arm, Patient Position: Lying) Pulse 99 Temp 36.6 ??C (97.9 ??F) (Oral) Resp 21 Katie Coma Scale Score: 15 Melchor Scale Score: 17 Oxygen Therapy: None (Room air) Skin Integrity: Other (Comment) Edema: Right lower extremity, Left lower extremity Wt Readings from Last 3 Encounters: 05/27/25 65.9 kg (145 lb 4.5 oz) 04/30/25 70.9 kg (156 lb 4.9 oz) 04/23/25 72.5 kg (159 lb 13.3 oz) Current Diet Order: Dietary Orders (From admission, onward) Start Ordered 05/27/25 0001 NPO diet Diet effective midnight 05/26/25 1453 Current Medications Current Scheduled Medications[4] Current Continuous Medications[5] Current Anthropometrics: Admit weight: 70.6 kg Height: 162.6 cm (5' 4 ) [place] body weight: 54.7 kg (120 lb 9.5 oz) Adjusted ideal body weight: 59.2 kg (130 lb 7.5 oz) (129%) of IBW Body mass index is 24.94 kg/m??. Adjusted wt: 58.7 kg (if over 125% of IBW) CENTRAL IV Access: PICC (05/20/25) Estimated Nutritional Needs: HBE: 1161 kcal/day Stress Factor: 1.2 - 1.3 Total Calories/day: 1393 - 1626 Protein (amino acids): 1.3 - 1.7 grams/kg Protein (Amino acids): 76.3 - 99.8 grams/day Measured Energy Needs: Respiratory Quotient: 05/27/2025 Plan/Recommendation: Labs reviewed. Continue goal TPN. GOAL TPN: DEXTROSE: 18% (281 g/day CHO) AMINO ACIDS: 6% (93.6 g/day - 1.59 g/adjusted kg/day Amino acids), Na 90 meq/L @ 65 ml/hr, with 30mg/day thiamine, MVI, and Trace elements Every other day 250ml 20% SMOF lipids 1579 Total kcal/day - 26.9 kcal/adjusted kg/day Replace electrolytes outside of TPN Calcium and/or Phosphorus supplements MUST be in a separate line from the TPN to avoid precipitation Obtain BMP, magnesium, and Phos daily x 3days and then at least twice weekly Obtain LFT and TGLY weekly I have monitored the TPN therapy, including the labs, and have communicated any modifications with the primary medical/surgical team. Continue current TPN formula and lipid regimen as above. I have communicated the TPN plan with the IV room. 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 Available via [email or web address] Secure Chat [1] Patient Active Problem List Diagnosis CN III palsy, left Pituitary adenoma (CMS/HCC) IPMN (intraductal papillary mucinous neoplasm) Abnormal blood electrolyte level HLD (hyperlipidemia) History of CVA (cerebrovascular accident) Leukocytosis On total parenteral nutrition (TPN) Peripancreatic fluid collection Abdominal pain Pleural effusion [2] Past Medical History: Diagnosis Date Cranial nerve III palsy High cholesterol Pancreatic cyst Unspecified injury of unspecified wrist, hand and finger(s), initial encounter Hand injury [3] Past Surgical History: Procedure Laterality Date CYSTOSCOPY ENDOSCOPY EXTERNAL - ECG EXTERNAL - ECG [4] acetaminophen, 1,000 mg, Oral, q8h aspirin, 81 mg, Oral, Daily [Held by provider] enoxaparin, 40 mg, Subcutaneous, Daily fat emulsion fish/plant based, 250 mL, Intravenous, Every other day gabapentin, 300 mg, Oral, Nightly insulin regular, 7 Units, Subcutaneous, q6h KHUSHI insulin regular, 0-10 Units, Subcutaneous, q6h KHUSHI lidocaine, 1 patch, Apply externally, q24h methocarbamol, 1,000 mg, Oral, 4x daily mupirocin, 1 Application, Each Nostril, BID pantoprazole, 40 mg, Oral, Daily piperacillin-tazobactam, 3.375 g, Intravenous, q6h sodium chloride, 10 mL, Intravenous, q12h sodium chloride, 10 mL, Intravenous, q12h [5] Adult 2-in-1 TPN, 65 mL/hr, Last Rate: 65 mL/hr (05/26/252037) * Clinician Note - Casie Mclaughlin - 05/27/2025 10:14 AM EST Physical Therapy Attempt Patient Name: Dot Dale Today's Date: 05/27/2025 Patient was attempted to be seen by physical therapy 05/27/2025 for PT Treatment however patient politely declined (due to nausea and fatigue). Pt to have VATS procedure later today. Physical therapy team will follow-up as patient is agreeable. Written by Casie Mclaughlin on 05/27/25 at 10:14 AM. * Clinician Note - Eder Rushing - 05/27/2025 10:13 AM EST Occupational Therapy Attempt Patient Name: Dot Dale Today's Date: 05/27/2025 Patient was attempted to be seen by occupational therapy 05/27/2025 for OT treatment however patientpolitely declined. Occupational therapy team will follow-up as schedule permits. Written by Eder Rushing on 05/27/25 at 10:13 AM. * Progress Notes - Flora Salvador DO - 05/27/2025 7:44 AM EST Images from the original note were not included. Department of Surgery Division of Surgical Oncology Surgery Progress Note 05/27/25 Dto Dale Subjective Subjective: HPI 69F with history of IPMN s/p distal panc/spleen c/b post-op pancreatic leak requiring extended period with surgical drain in place (removed on 04/23). Presented with worsening abdominal pain, fever/chills and found to have peripancreatic fluid collection. 03/20/25: distal panc/spleen [Monica] 05/14: IR placed abdominal drain Interval: NAEON. Pain managed. No N/V. TSS planning for VATs today 05/27, NPO for now. Continued endorsing serosanginous output around chest tube, dressing changed at bedside. CXR appears minimally worsened. She had not attempted protein shakes yesterday, only minimal PO intake prior to NPO. I/O: UOP x9 + NC (1x + 550), BM NC (2x), L chest tube NC (5) Edited by: Flora Salvador DO at 05/27/2025 0742 Review of Systems: Relevant review of systems was obtained as able and is negative unless stated above in HPI. Objective Objective: Vital signs: Vitals: 05/27/25 0355 BP: 129/70 Pulse: 102 Resp: 20 Temp: 36.9 ??C (98.4 ??F) SpO2: 94% Physical Exam: Physical Exam Vitals reviewed. Constitutional: General: She is not in acute distress. Appearance: She is ill-appearing. HENT: Head: Normocephalic and atraumatic. Nose: Nose normal. Mouth/Throat: Mouth: Mucous membranes are dry. Eyes: General: No scleral icterus. Extraocular Movements: Extraocular movements intact. Conjunctiva/sclera: Conjunctivae normal. Cardiovascular: Rate and Rhythm: Normal rate and regular rhythm. Pulmonary: Effort: Pulmonary effort is normal. No respiratory distress. Comments: +Left Chest tube, to suction. Minimal, thick output Abdominal: General: There is no distension. Palpations: Abdomen is soft. Tenderness: There is abdominal tenderness (ATTP). There is no guarding or rebound. Comments: Laparotomy incision healing appropriately Lmid axillary chest tube leaking serous fluid around. Atrium to water seal minimal output Musculoskeletal: General: No swelling. Normal range of motion. Cervical back: Normal range of motion. Skin: General: Skin is warm and dry. Capillary Refill: Capillary refill takes less than 2 seconds. Coloration: Skin is not jaundiced. Neurological: General: No focal deficit present. Mental Status: She is alert and oriented to person, place, and time. Psychiatric: Mood and Affect: Mood normal. Behavior: Behavior normal. Thought Content: Thought content normal. Judgment: Judgment normal. Intake/Output Summary (Last 24 hours) at 05/27/2025 0744 Last data filed at 05/27/2025 0512 Gross per 24 hour Intake 6912.85 ml Output 0 ml Net 6912.85 ml Lines/Drains/Tubes: Patient Lines/Drains/Airways Status Active Airway None Output by Drain (mL) 05/25/25 0700 - 05/25/25 1859 05/25/25 1900 - 05/26/25 0659 05/26/25 0700 - 05/26/25 1859 05/26/25 1900 - 05/27/25 0659 05/27/25 0700 - 05/27/25 0744 Requested LDAs do not have output data documented. Labs in last 18 hours: CBC WBC 14.09 (H) Hb 9.2 (L) Plt 584 (H) Hct 28.2 (L) ANC ?? INR ??, PTT ??, Anti-Xa ?? MCV 89 BMP Na 135 (L) Cl 103 BUN 12 Glu 154 (H) K 4.2 Co2 23 Cr 0.46 (L) Ca 8.0 (L) iCa ?? Mg 2.0, Phos 3.3 Lactate ?? LFT AST 15 AlkPhos 83 T Prot 6.4 ALK 12 Bili 0.5 Alb ?? D.Bili ?? Lab Trends: H/H Results from last 7 days Lab Units 05/27/25 0452 05/26/25 0550 05/25/25 0507 HEMOGLOBIN g/dL 9.2* 9.7* 10.0* HEMATOCRIT % 28.2* 29.7* 30.2* INR Cr Results from last 7 days Lab Units 05/27/25 0452 05/26/25 0550 05/25/25 0507 CREATININE mg/dL 0.46* 0.44* 0.42* Lactate No lab exists for component: LACTTEVEN Radiographic Interpretation: I have reviewed the imaging above and agree with the radiologist interpretation. XR Chest 1 View Result Date: 05/25/2025 Decreased volume of left pleural effusion. CRITICAL RESULT: No. COMMUNICATION: Per this written report Drafted by Heriberto Ivy MD on 05/25/2025 2:47 PM Final report signed by Heriberto Ivy MD on 05/25/2025 2:48 PM Medications reviewed. Vital signs reviewed. Labs reviewed. Assessment/Plan Assessment and Plan: Medical Problems Problem List * (Principal) Peripancreatic fluid collection CN III palsy, left Overview Addendum 03/31/2025 7:55 AM by Katlyn Hopkins APRN Hx of Abnormal blood electrolyte level Overview Signed 03/21/2025 9:54 AM by Katlyn Hopkins APRN - daily/PRN CMP, Mg, Phos - replete as appropriate - goal: K>4, phos>3, mg>2 HLD (hyperlipidemia) Overview Addendum 03/28/2025 8:24 AM by Katlyn Hopkins APRN Continue statin History of CVA (cerebrovascular accident) Overview Signed 03/21/2025 9:58 AM by Katlyn Hopkins APRN 11/2020 CT Head showed old left occipital & left temporal infarcts. On ASA 81mg daily. Leukocytosis Overview Addendum 04/04/2025 9:46 AM by Katlyn Hopkins APRN Down trending Daily CBC Abx: fidaxomicin (changed to Vancomycin due to cost on day of dc (03/30-04/09) levofloxacin/flagyl (03/30-04/12) Zosyn 03/29-03/30 zosyn [03/20-] x48h post-op Cx: GI panel/C. Diff: +GDH- Toxin, all other negative (03/30) On total parenteral nutrition (TPN) Overview Addendum 04/04/2025 9:18 AM by Katlyn Hopkins APRN - initiated on 03/30/25, continue on dc -daily CMP,mg,phos -weekly pre-albumin, triglycerides Abdominal pain Pituitary adenoma (CMS/HCC) Overview Deleted 03/21/2025 10:00 AM by Katlyn Hopkins APRN IPMN (intraductal papillary mucinous neoplasm) Overview Addendum 04/04/2025 9:18 AM by Katlyn Hopkins APRN 03/20/2025:ex-lap, SAMIA, distal pancreatectomy w/splenectomy, celiac axis node dissection [Monica] Keep DARIAN bulb on dc Pleural effusion Present on Admission: Peripancreatic fluid collection On total parenteral nutrition (TPN) Plan: [ ] schedule splenectomy vaccines [ ] AM CXR Daily - Continues to have poor PO. TPN, regular diet with boost after procedure. - Chest tube fluid studies - amylase, lipase - per TSS - IR chest tube 05/21 NGD4 - On zosyn 05/20 until WBC normalizes -Thoracic: CT to suction. Planning for VATs pending OR time today 05/27 - Drain cx: Streptococcus constellatus, H. Parainfluenzae. Diet - NPO (Regular, TPN) Abx - zosyn Pain - prn oxy, tylenol, robaxin, lido patch Ppx - pLOV, PPI Endo - subcutaneous TLD - L CT, R PICC PT/OT - ordered Dispo - pending Edited by: Flora Salvador DO at 05/27/2025 0725 Dispo: Continue Current Level of Care Flora Salvador DO Cosigned by Lokesh Anderson MD at 06/05/2025 8:38 PM EST Associated attestation - Lokesh Anderson MD - 06/05/2025 8:38 PM EST I saw and evaluated the patient with the resident/fellow. I discussed the case with the resident/fellow and agree with the findings and plan as documented. * Significant Event - Oneil Velazquez MD - 05/27/2025 5:46 AM EST Patient to OR today for Left VATS decortication - H&P note at admission/most recent progress note reviewed and with no changes - The risks, benefits, indications, contraindications, and surgical alternatives were explained to the patient. Specifically, the risks of surgery, including bleeding, infection, injury to nearby organs or structures, need for additional surgery or procedures, wound complications, and complicationsof general anesthesia. Commonly associated risks of the procedure where also discussed with the patient in detail. The patient participated in the discussion and was given an opportunity to ask questions. - Written and informed consent is located in the patient's chart. - NPO since midnight * Care Plan - Rylie Valentin RN - 05/27/2025 12:06 AM EST Problem: Adult Inpatient Plan of Care Goal: Plan of Care Review Outcome: Ongoing, Progressing Flowsheets (Taken 05/27/2025 0004) Progress: no change Outcome Evaluation: Patient discussed POC. Plan of Care Reviewed With: patient spouse Goal: Patient-Specific Goal (Individualized) Outcome: Ongoing, Progressing Goal: Absence of Hospital-Acquired Illness or Injury Outcome: Ongoing, Progressing Intervention: Prevent Skin Injury Flowsheets (Taken 05/27/20253) Body Position: weight shifting Skin Protection: protective footwear used incontinence pads utilized Goal: Optimal Comfort and Wellbeing Outcome: Ongoing, Progressing Intervention: Monitor Pain and Promote Comfort Flowsheets (Taken 05/27/20253) Pain Management Interventions: medication (see MAR) emotional support pillow support provided position adjusted quiet environment facilitated relaxation techniques promoted rest Problem: Pain Acute Goal: Optimal Pain Control and Function Outcome: Ongoing, Progressing Intervention: Develop Pain Management Plan Flowsheets (Taken 05/27/20253) Pain Management Interventions: medication (see MAR) emotional support pillow support provided position adjusted quiet environment facilitated relaxation techniques promoted rest Problem: Fall Injury Risk Goal: Absence of Fall and Fall-Related Injury Outcome: Ongoing, Progressing Intervention: Identify and Manage Contributors Flowsheets (Taken 05/27/20253) Medication Review/Management: medications reviewed Self-Care Promotion: independence encouraged Problem: Skin Injury Risk Increased Goal: Skin Health and Integrity Outcome: Ongoing, Progressing Intervention: Optimize Skin Protection Flowsheets (Taken 05/27/20253) Activity Management: activity encouraged Pressure Reduction Techniques: frequent weight shift encouraged Pressure Reduction Devices: positioning supports utilized Skin Protection: protective footwear used incontinence pads utilized Head of Bed (HOB) Positioning: HOB elevated Problem: Infection Goal: Absence of Infection Signs and Symptoms Outcome: Ongoing, Progressing Intervention: Prevent or Manage Infection Flowsheets (Taken 05/27/20253) Infection Management: aseptic technique maintained Fever Reduction/Comfort Measures: lightweight bedding lightweight clothing Isolation Precautions: precautions maintained * Progress Notes - Kalee Hannah - 05/26/2025 3:16 PM EST Music Therapy Note Missed Opportunity: Yes Missed Opportunity Reason: Patient unavailable Comments: Pt and spouse in discussion with provider, discussing tomorrow's surgery. Plan of Care: Plan of Care: Will return at another time * Consults - Roberta Tidwell - 05/26/2025 2:50 PM EST Pastoral Care Note Pastoral support visit with patient Dot and spouse Gabriela following update by Conrado Park APRN. Patient expressed hope that surgery would not be delayed tomorrow as she feels constant discomfort. She asked for petrol tanker driver to keep her in prayer. Plan to follow up tomorrow and assured them of availability of petrol tanker driver at any time. Pastoral Care Provided For: Patient, Spouse Patient Profile: Consult Reasons: Pre-surgery, Emotional support, Spiritual support Spiritual Assessment: Support Systems/ Spiritual Resources: Family, Светлана, Prayer Spiritual Needs: Emotional support, Spiritual support, Prayer Spiritual Issues: Chronic pain/ illness, Anxious(ness), Discouraged Interventions: Interventions Provided: Introduced Patient/Family to Manager Inventory Control Services, Emotional support, Family support, Identify baptist/ spiritual coping, Spiritual support, Supportive Listening, Consulted with care team Pastoral Care Outcomes: Patient Outcomes: Identifies spiritual or baptist practices as helpful, Expresses intent to participate/comply in plan of care, Expresses ongoing struggle, Expresses being seen and heard Pastoral Care Plan: Plan to follow up tomorrow. Roberta Tidwell * Care Plan - Ariane Ordoñez RN - 05/26/2025 2:43 PM EST Problem: Adult Inpatient Plan of Care Goal: Plan of Care Review Outcome: Ongoing, Progressing Flowsheets (Taken 05/26/2025 1435) Progress: improving Plan of Care Reviewed With: patient spouse Goal: Patient-Specific Goal (Individualized) Outcome: Ongoing, Progressing Flowsheets (Taken 05/26/2025 0700) Patient/Family-Specific Goals (Include Timeframe): Patient will ambulate 200ft in hallway twice before end of shift. Individualized Care Needs: none Anxieties, Fears or Concerns: none Goal: Absence of Hospital-Acquired Illness or Injury Outcome: Ongoing, Progressing Intervention: Identify and Manage Fall Risk Flowsheets (Taken 05/26/2025 0700) Safety Promotion/Fall Prevention: activity supervised assistive device/personal items within reach clutter-free environment maintained fall prevention program maintained lighting adjusted mobility aid in reach nonskid shoes/slippers when out of bed room organization consistent safety round/check completed toileting scheduled Intervention: Prevent Skin Injury Flowsheets Taken 05/26/2025 1435 Skin Protection: protective footwear used incontinence pads utilized Taken 05/26/2025 0700 Body Position: weight shifting Intervention: Prevent and Manage VTE (Venous Thromboembolism) Risk Flowsheets (Taken 05/26/2025 1129) VTE Prevention/Management: medication Intervention: Prevent Infection Flowsheets (Taken 05/26/2025 143) Infection Prevention: hand hygiene promoted single patient room provided environmental surveillance performed personal protective equipment utilized visitors restricted/screened Goal: Optimal Comfort and Wellbeing Outcome: Ongoing, Progressing Intervention: Monitor Pain and Promote Comfort Flowsheets (Taken 05/26/2025 143) Pain Management Interventions: pain management plan reviewed with patient/caregiver Intervention: Provide Person-Centered Care Flowsheets (Taken 05/26/20251434) Trust Relationship/Rapport: choices provided questions answered care explained questions encouraged emotional support provided reassurance provided empathic listening provided thoughts/feelings acknowledged Problem: Pain Acute Goal: Optimal Pain Control and Function Outcome: Ongoing, Progressing Intervention: Optimize Psychosocial Wellbeing Flowsheets (Taken 05/26/2025 143) Supportive Measures: active listening utilized self-care encouraged Diversional Activities: television Spiritual Activities Assistance: personal rituals encouraged Intervention: Develop Pain Management Plan Flowsheets (Taken 05/26/2025 143) Pain Management Interventions: pain management plan reviewed with patient/caregiver Intervention: Prevent or Manage Pain Flowsheets (Taken 05/26/2025 143) Sensory Stimulation Regulation: lighting decreased Complementary Therapy: essential oils utilized Bowel Elimination Promotion: privacy promoted ambulation promoted Sleep/Rest Enhancement: regular sleep/rest pattern promoted Medication Review/Management: medications reviewed Problem: Fall Injury Risk Goal: Absence of Fall and Fall-Related Injury Outcome: Ongoing, Progressing Intervention: Identify and Manage Contributors Flowsheets (Taken 05/26/2025 143) Medication Review/Management: medications reviewed Self-Care Promotion: independence encouraged BADL personal objects within reach Intervention: Promote Injury-Free Environment Flowsheets (Taken 05/26/2025 0700) Safety Promotion/Fall Prevention: activity supervised assistive device/personal items within reach clutter-free environment maintained fall prevention program maintained lighting adjusted mobility aid in reach nonskid shoes/slippers when out of bed room organization consistent safety round/check completed toileting scheduled Problem: Skin Injury Risk Increased Goal: Skin Health and Integrity Outcome: Ongoing, Progressing Intervention: Optimize Skin Protection Flowsheets Taken 05/26/2025 143 Activity Management: activity adjusted per tolerance Pressure Reduction Techniques: frequent weight shift encouraged Skin Protection: protective footwear used incontinence pads utilized Taken 05/26/2025 0700 Head of Bed (HOB) Positioning: HOB elevated Intervention: Promote and Optimize Oral Intake Flowsheets (Taken 05/26/2025 1435) Oral Nutrition Promotion: rest periods promoted physical activity promoted Nutrition Interventions: food preferences provided Problem: Infection Goal: Absence of Infection Signs and Symptoms Outcome: Ongoing, Progressing Intervention: Prevent or Manage Infection Flowsheets (Taken 05/26/2025 143) Infection Management: aseptic technique maintained Fever Reduction/Comfort Measures: lightweight bedding lightweight clothing Isolation Precautions: protective * Progress Notes - Katie Pena RN - 05/26/2025 10:51 AM EST Case Management Adult Progress Note Dot Dale 69 y.o. female CSN: [id number] Admission: 05/13/2025 6:45 PM Primary Problem: Peripancreatic fluid collection Anticipated Discharge Date: 05/30 Has Discharge Plans Changed? No Medicare Second Notice: Housing Circumstances: Not Applicable Housing Circumstances Action Taken: Medically Ready for Discharge: No Additional Comments POC reviewed with primary team. Refer to primary team's progress note for details. Pt not medicallyready to d\c. DC plan of care ongoing Plan today-Chest tube fluid studies - amylase, lipase - per TSS Patient has been accepted by [facility] for home TPN. DC plan of care ongoing. Katie Pena RN * Consults - Fannie Silverman RD - 05/26/2025 10:07 AM EST Adult Nutrition Evaluation Note Dot Dale 69 y.o. female CSN: [id number] Room/Bed 121/121A Nutrition evaluation type: follow-up Reason for evaluation: Hospital course: 69 y/o female with IPMN s/p distal panc/spleen 03/20 c/b post-op pancreatic leak admitted for worsening abdominal pain, fever/chills and found to have peripancreatic fluid collection.Also with large left pleural effusion s/p chest tube 05/21. Planning for VATs pending OR time. Re-started TPN 05/20. Past medical/ surgical history: Past Medical History[1] Surgical History[2] Additional comments: Patient has been on TPN previously (~03/30-04/25). Previously started on Megacefor appetite, now stopped once TPN resumed. RD spoke with patient and family at visit. Pt with no appetite and taste changes. Pt not drinking Boost. Vitals and Basic Assessment: BP: 121/67 Temp: 36.7 ??C (98.1 ??F) Oxygen Therapy: None (Room air) O2 Delivery Method: Nasal cannula [place] Coma Scale Score: 15 Melchor Scale Score: 20 Most Recent BM Date: 05/25/25 GI Symptoms: Loss of appetite, Diarrhea Edema: Right lower extremity, Left lower extremity Allergies: NKFA Medications: Current Scheduled Medications[3] Labs: Lab Results Component Value Date GLUCOSE 170 (H) 05/26/2025 CALCIUM 8.0 (L) 05/26/2025 NA 133 (L) 05/26/2025 K 4.2 05/26/2025 CO2 21 (L) 05/26/2025 CL 101 05/26/2025 BUN 12 05/26/2025 CREATININE 0.44 (L) 05/26/2025 PHOS 3.6 05/26/2025 MG 1.9 05/26/2025 HGBA1C 5.4 12/05/2020 Anthropometrics: Height: 162.6 cm (5' 4 ) Weight: 66.8 kg (147 lb 4.3 oz) BMI (Calculated): 25.27 Weight Evaluation: Overweight (BMI 25-29.9) [place] Body Weight (kg): 54.5 Percent [place] Body Weight: 123 Wt Readings from Last 10 Encounters: 05/26/25 66.8 kg (147 lb 4.3 oz) 04/30/25 70.9 kg (156 lb 4.9 oz) 04/23/25 72.5 kg (159 lb 13.3 oz) 04/09/25 71.4 kg (157 lb 6.5 oz) 04/04/25 73.9 kg (162 lb 14.7 oz) 03/13/25 73.9 kg (163 lb) 02/26/25 76 kg (167 lb 8.8 oz) 02/07/25 76.2 kg (167 lb 15.9 oz) 01/31/25 76.7 kg (169 lb) 12/06/20 80.8 kg (178 lb 2.1 oz) Estimated Needs: Kcal/ K Kcal Provided: 2003 Kcal Needs Based On: Current weight Gm Protein/ Kg : 1.2-1.5 Protein Provided: 80-100 Protein Needs Based On: Current weight ML/ Kg: Per team Current Nutrition Intake: Diet Supplements: Boost Very High Calorie, Boost Breeze Diet Order: Adult Diet Diet Texture: Regular Percent Meals Eaten (%): 17% avg x 8 meals Diet Experience and Nutrition History: Diet Education Provided: Will monitor Nutrition Focused Physical Exam: Physical exam performed on (date): 05/26/25 [place] (muscles): Mild Clavicle (muscle): Mild Shoulder (muscle): Mild Orbital (fat): Moderate Triceps (fat): Moderate Energy Intake: < 75% x > 1 month Weight Loss: 12% weight loss x 3 months Assessment of Malnutrition: Malnutrition Identified: Yes Meets Criteria For: Severe malnutrition In Context Of: Chronic illness/ injury Based On: Severely reduced energy intake, Severe weight loss Present on Admission: Yes Nutrition Problem: Inadequate oral intake related to ongoing clinical condition as evidenced by <50% PO intake. Status of Nutrition Diagnosis: Ongoing Nutrition Interventions and Recommendations: - TPN dosing/management per pharmacy team - Diet per team - Discontinue Boost per pt request Nutrition Monitoring and Goals: - Meet >80% of EER Acuity Level: [address] [1] Past Medical History: Diagnosis Date Cranial nerve III palsy High cholesterol Pancreatic cyst Unspecified injury of unspecified wrist, hand and finger(s), initial encounter Hand injury [2] Past Surgical History: Procedure Laterality Date CYSTOSCOPY ENDOSCOPY EXTERNAL - ECG EXTERNAL - ECG [3] acetaminophen, 1,000 mg, Oral, q8h aspirin, 81 mg, Oral, Daily enoxaparin, 40 mg, Subcutaneous, Daily fat emulsion fish/plant based, 250 mL, Intravenous, Every other day gabapentin, 300 mg, Oral, Nightly insulin regular, 7 Units, Subcutaneous, q6h KHUSHI insulin regular, 0-10 Units, Subcutaneous, q6h KHUSHI lidocaine, 1 patch, Apply externally, q24h methocarbamol, 1,000 mg, Oral, 4x daily pantoprazole, 40 mg, Oral, Daily piperacillin-tazobactam, 3.375 g, Intravenous, q6h sodium chloride, 10 mL, Intravenous, q12h sodium chloride, 10 mL, Intravenous, q12h * Progress Notes - Conrado Park, PETROGRAPHER - 05/26/2025 9:42 AM EST Images from the original note were not included. Department of Surgery Division of Surgical Oncology Surgery Progress Note 05/26/25 Dot Chito Subjective Subjective: HPI 69F with history of IPMN s/p distal panc/spleen c/b post-op pancreatic leak requiring extended period with surgical drain in place (removed on 04/23). Presented with worsening abdominal pain, fever/chills and found to have peripancreatic fluid collection. 03/20/25: distal panc/spleen [Monica] Interval: NAEON. CT appears low output. Leaking around drain. Pain managed. No N/V. TSS planning for VATs pending scheduling. I/O: UOP 550 + x1, BM 2x, Chest tube 25 Edited by: Conrado Park, PETROGRAPHER at 05/26/2025 0940 Review of Systems: Relevant review of systems was obtained as able and is negative unless stated above in HPI. Objective Objective: Vital signs: Vitals: 05/26/25 0804 BP: 136/70 Pulse: 93 Resp: 17 Temp: 36.7 ??C (98.1 ??F) SpO2: 95% Physical Exam: Physical Exam Vitals reviewed. Constitutional: General: She is not in acute distress. Appearance: She is ill-appearing. HENT: Head: Normocephalic and atraumatic. Nose: Nose normal. Mouth/Throat: Mouth: Mucous membranes are dry. Eyes: General: No scleral icterus. Extraocular Movements: Extraocular movements intact. Conjunctiva/sclera: Conjunctivae normal. Cardiovascular: Rate and Rhythm: Normal rate and regular rhythm. Pulmonary: Effort: Pulmonary effort is normal. No respiratory distress. Comments: +Left Chest tube, to suction. Minimal, thick output Abdominal: General: There is no distension. Palpations: Abdomen is soft. Tenderness: There is abdominal tenderness (ATTP). There is no guarding or rebound. Comments: Laparotomy incision healing appropriately Lmid axillary chest tube leaking serous fluid around. Atrium to water seal minimal output Musculoskeletal: General: No swelling. Normal range of motion. Cervical back: Normal range of motion. Skin: General: Skin is warm and dry. Capillary Refill: Capillary refill takes less than 2 seconds. Coloration: Skin is not jaundiced. Neurological: General: No focal deficit present. Mental Status: She is alert and oriented to person, place, and time. Psychiatric: Mood and Affect: Mood normal. Behavior: Behavior normal. Thought Content: Thought content normal. Judgment: Judgment normal. Intake/Output Summary (Last 24 hours) at 05/26/2025 0942 Last data filed at 05/25/2025 1844 Gross per 24 hour Intake 420 ml Output 555 ml Net -135 ml Lines/Drains/Tubes: Patient Lines/Drains/Airways Status Active Airway None Output by Drain (mL) 05/24/25 0700 - 05/24/25 1859 05/24/25 1900 - 05/25/25 0659 05/25/25 0700 - 05/25/25 1859 05/25/25 1900 - 05/26/25 0659 05/26/25 0700 - 05/26/25 0942 Requested LDAs do not have output data documented. Labs in last 18 hours: CBC WBC 15.57 (H) Hb 9.7 (L) Plt 586 (H) Hct 29.7 (L) ANC ?? INR ??, PTT ??, Anti-Xa ?? MCV 88 BMP Na 133 (L) Cl 101 BUN 12 Glu 170 (H) K 4.2 Co2 21 (L) Cr 0.44 (L) Ca 8.0 (L) iCa ?? Mg 1.9, Phos 3.6 Lactate ?? LFT AST 22 AlkPhos 86 T Prot 6.3 ALK 14 Bili 0.5 Alb ?? D.Bili ?? Lab Trends: H/H Results from last 7 days Lab Units 05/26/25 0550 05/25/25 0507 05/24/25 0458 HEMOGLOBIN g/dL 9.7* 10.0* 10.0* HEMATOCRIT % 29.7* 30.2* 30.0* INR Cr Results from last 7 days Lab Units 05/26/25 0550 05/25/25 0507 05/24/25 0458 CREATININE mg/dL 0.44* 0.42* 0.45* Lactate No lab exists for component: LACTTEVEN Radiographic Interpretation: I have reviewed the imaging above and agree with the radiologist interpretation. XR Chest 1 View Result Date: 05/25/2025 Decreased volume of left pleural effusion. CRITICAL RESULT: No. COMMUNICATION: Per this written report Drafted by Heriberto Ivy MD on 05/25/2025 2:47 PM Final report signed by Heriberto Ivy MD on 05/25/2025 2:48 PM Medications reviewed. Vital signs reviewed. Labs reviewed. Assessment/Plan Assessment and Plan: Medical Problems Problem List * (Principal) Peripancreatic fluid collection CN III palsy, left Overview Addendum 03/31/2025 7:55 AM by Katlyn Hopkins APRN Hx of Abnormal blood electrolyte level Overview Signed 03/21/2025 9:54 AM by Katlyn Hopkins APRN - daily/PRN CMP, Mg, Phos - replete as appropriate - goal: K>4, phos>3, mg>2 HLD (hyperlipidemia) Overview Addendum 03/28/2025 8:24 AM by Katlyn Hopkins APRN Continue statin History of CVA (cerebrovascular accident) Overview Signed 03/21/2025 9:58 AM by Katlyn Hopkins APRN 11/2020 CT Head showed old left occipital & left temporal infarcts. On ASA 81mg daily. Leukocytosis Overview Addendum 04/04/2025 9:46 AM by Katlyn Hopkins APRN Down trending Daily CBC Abx: fidaxomicin (changed to Vancomycin due to cost on day of dc (03/30-04/09) levofloxacin/flagyl (03/30-04/12) Zosyn 03/29-03/30 zosyn [03/20-] x48h post-op Cx: GI panel/C. Diff: +GDH- Toxin, all other negative (03/30) On total parenteral nutrition (TPN) Overview Addendum 04/04/2025 9:18 AM by Katlyn Hopkins APRN - initiated on 03/30/25, continue on dc -daily CMP,mg,phos -weekly pre-albumin, triglycerides Abdominal pain Pituitary adenoma (CMS/HCC) Overview Deleted 03/21/2025 10:00 AM by Katlyn Hopkins APRN IPMN (intraductal papillary mucinous neoplasm) Overview Addendum 04/04/2025 9:18 AM by Katlyn Hopkins APRN 03/20/2025:ex-lap, SAMIA, distal pancreatectomy w/splenectomy, celiac axis node dissection [Monica] Keep DARIAN bulb on dc Present on Admission: Peripancreatic fluid collection On total parenteral nutrition (TPN) Plan: [ ] schedule splenectomy vaccines [ ] AM CXR Daily - Continues to have poor PO. TPN, regular diet with boost. - Chest tube fluid studies - amylase, lipase - per TSS - IR chest tube 05/21 NGD4 - On zosyn 05/20 until WBC normalizes -Thoracic: CT to suction. Planning for VATs pending OR time - Drain cx: Streptococcus constellatus, H. Parainfluenzae. Diet - Regular, TPN Abx - zosyn Pain - prn oxy, tylenol, robaxin, lido patch Ppx - pLOV, PPI Endo - subcutaneous TLD - L CT, R PICC PT/OT - ordered Dispo - pending Edited by: Conrado Park APRN at 05/26/2025 0942 Dispo: Continue Current Level of Care Conrado Park APRN Cosigned by Lokesh Anderson MD at 05/26/2025 9:51 AM EST Associated attestation - Lokesh Anderson MD - 05/26/2025 9:51 AM EST I attest to being involved in more than half the total time in patient care. * Progress Notes - Oli Espinoza - 05/26/2025 8:33 AM EST Images from the original note were not included. Pharmacist TPN Progress Note Patient: Dot Dale Age: 69 y.o. Admission Date: [id number] Subjective/Objective/Hospital Course: 69 y.o. 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 Patient has been on TPN previously (~03/30-04/25). 05/20: Patient agreeable to PICC and TPN, switched appetite stimulants (megestrol --> dronabinol), CT scan pending 05/21: 05/20/25 CT abd/pelv demonstrates loculated large left pleural effusion, chest tube placement with IR 05/23: possible washout with TSS this weekend vs next week Problem List[1] Past Medical History[2] Surgical History[3] Allergies: Patient has no known allergies. LABS: Results from last 7 days Lab Units 05/26/25 0550 05/25/25 0507 05/24/25 0458 05/23/25 0429 05/22/25 0353 05/21/25 0315 05/20/25 0132 GLUCOSE mg/dL 170* 151* 167* 177* 164* 116* 128* BUN mg/dL 12 12 12 11 10 11 9 CREATININE mg/dL 0.44* 0.42* 0.45* 0.43* 0.54* 0.61 0.53* SODIUM mmol/L 133* 135* 137 134* 136 136 136 POTASSIUM mmol/L 4.2 4.2 4.4 4.2 4.2 4.4 4.6 CHLORIDE mmol/L 101 104 105 103 105 105 104 CO2 mmol/L 21* 22 22 21* 21* 21* 18* CALCIUM mg/dL 8.0* 8.0* 7.7* 7.9* 7.7* 7.9* 8.0* PHOSPHORUS mg/dL 3.6 2.7 2.8 2.6 3.3 3.3 3.2 MAGNESIUM mg/dL 1.9 1.9 1.9 1.8* 1.9 1.9 2.0 Results from last 7 days Lab Units 05/26/25 0550 05/25/25 0507 05/24/25 0458 05/23/25 0429 05/22/25 0353 05/21/2531405/20/25 0132 WBC 10*3/uL 15.57* 15.22* 13.62* 13.42* 14.71* 18.72* 18.96* HEMOGLOBIN g/dL 9.7* 10.0* 10.0* 10.4* 10.6* 11.6 13.1 HEMATOCRIT % 29.7* 30.2* 30.0* 30.4* 32.3* 34.3 39.1 PLATELETS 10*3/uL 586* 538* 517* 517* 444* 419* 479* Results from last 7 days Lab Units 05/26/25 0550 05/25/25 0507 05/24/25 0458 05/23/25 0429 05/22/2535205/21/2531405/20/25 0132 ALT U/L 14 13 10 8* 5* 8* 11 AST U/L 22 20 22 16 11 12 21 ALKALINE PHOSPHATASE U/L 86 89 84 73 77 80 94 BILIRUBIN TOTAL mg/dL 0.5 0.4 0.3 0.3 0.3 0.5 0.5 ALBUMIN g/dL 2.2* 2.4* 2.2* 2.1* 2.0* 2.3* 2.7* Nutrition Labs: Lab Results Component Value Date TRIG 119 05/20/2025 BILITOT 0.5 05/26/2025 ALBUMIN 2.2 (L) 05/26/2025 PREALBUMIN 3.3 (L) 05/16/2025 HGBA1C 5.4 12/05/2020 CRP 1.5 12/07/2020 Microbiology Results Procedure Component Value Units Date/Time Blood Culture (Aerobic/Anaerobet Set) [[id number]] Collected: 05/14/25231 Order Status: Completed Specimen: Blood from Wrist, Left Updated: 05/19/25600 Culture No growth at day 5 Narrative: Low blood volume submitted, results may be compromised Blood Culture (Aerobic/Anaerobet Set) [[id number]] Collected: 05/14/25231 Order Status: Completed Specimen: Blood from Wrist, Right Updated: 05/19/25 0551 Culture No growth at day 5 Narrative: Low blood volume submitted, results may be compromised Body Fluid Culture and Gram Stain [[id number]] (Abnormal) (Susceptibility) Collected: 05/14/25 1647 Order Status: Completed Specimen: Body Fluid (specify site): Updated: 05/18/25 1436 Culture Heavy Growth 4+ Streptococcus constellatus Comment: This isolate has been identified using the FDA Approved [employer] System The organism value for this result has been updated. These results have been appended to the previously preliminary verified report. Edited result: Previously reported as Streptococcus species on 05/15/2025 at 1553 EST. 1+ Haemophilus parainfluenzae Comment: This isolate has been identified using the FDA Approved [employer] [place] System The organism value for this result has been updated. These results have been appended to the previously preliminary verified report. Gram Stain Result Numerous Gram positive cocci in pairs and chains Numerous Gram negative rods Numerous Polymorphonuclear leukocytes Susceptibility Streptococcus constellatus ETEST Penicillin G 0.094 Susceptible Susceptibility Haemophilus parainfluenzae Method Not Specified Beta Lactamase Negative Negative Susceptibility Comments Haemophilus parainfluenzae This organism is predictably susceptible to ampicillin or amoxicillin. Vitals: Visit Vitals BP 136/70 (BP Location: Left arm, Patient Position: Lying) Pulse 93 Temp 36.7 ??C (98.1 ??F) (Oral) Resp 17 [place] Coma Scale Score: 15 Melchor Scale Score: 20 Oxygen Therapy: None (Room air) Skin Integrity: Other (Comment) (left chest tube) Edema: Right lower extremity, Left lower extremity Wt Readings from Last 3 Encounters: 05/26/25 66.8 kg (147 lb 4.3 oz) 04/30/25 70.9 kg (156 lb 4.9 oz) 04/23/25 72.5 kg (159 lb 13.3 oz) Current Diet Order: Dietary Orders (From admission, onward) Start Ordered 05/21/25 1501 Adult diet Diet texture: Regular Diet effective now References: IDDSI Diet Texture Guide Question: Diet texture Answer: Regular 05/21/25 1500 05/18/25 1218 Oral nutrition supplements Until discontinued Question Answer Comment Supplement frequency: All meals All meals supplement: Boost Very High Calorie Vanilla Quantity for All Meals of Boost Very High Calorie - Vanilla One 05/18/25 1217 05/17/25 1217 Oral nutrition supplements Until discontinued Question Answer Comment Supplement frequency: Lunch Supplement frequency: Dinner Lunch supplement: Boost Breeze Wild [employer] Quantity for Lunch of Boost Breeze Wild [employer] One Dinner supplement: Boost Breeze Wild [employer] Quantity for Dinner of Boost Breeze Wild [employer] One 05/17/25 1217 Current Medications Current Scheduled Medications[4] Current Continuous Medications[5] Current Anthropometrics: Admit weight: 70.6 kg Height: 162.6 cm (5' 4 ) [place] body weight: 54.7 kg (120 lb 9.5 oz) Adjusted ideal body weight: 59.5 kg (131 lb 4.2 oz) (129%) of IBW Body mass index is 25.28 kg/m??. Adjusted wt: 58.7 kg (if over 125% of IBW) CENTRAL IV Access: PICC (05/20/25) Estimated Nutritional Needs: HBE: 1161 kcal/day Stress Factor: 1.2 - 1.3 Total Calories/day: 1393 - 1626 Protein (amino acids): 1.3 - 1.7 grams/kg Protein (Amino acids): 76.3 - 99.8 grams/day Measured Energy Needs: Respiratory Quotient: 05/26/2025 Plan/Recommendation: labs reviewed. Continue goal TPN. Increase Sodium. GOAL TPN: DEXTROSE: 18% (281 g/day CHO) AMINO ACIDS: 6% (93.6 g/day - 1.59 g/adjusted kg/day Amino acids) -Na 90 meq/L @ 65 ml/hr, with 30mg/day thiamine, MVI, and Trace elements Every other day 250ml 20% SMOF lipids 1579 Total kcal/day - 26.9 kcal/adjusted kg/day Replace electrolytes outside of TPN Calcium and/or Phosphorus supplements MUST be in a separate line from the TPN to avoid precipitation Obtain BMP, magnesium, and Phos daily x 3days and then at least twice weekly Obtain LFT and TGLY weekly I have monitored the TPN therapy, including the labs, and have communicated any modifications with the primary medical/surgical team. Continue current TPN formula and lipid regimen as above. I have communicated the TPN plan with the IV room. Thank you, Honesty Espinoza, PharmD Candidate Preceptor: Anni Iqbal PharmD [1] Patient Active Problem List Diagnosis CN III palsy, left Pituitary adenoma (CMS/HCC) IPMN (intraductal papillary mucinous neoplasm) Abnormal blood electrolyte level HLD (hyperlipidemia) History of CVA (cerebrovascular accident) Leukocytosis On total parenteral nutrition (TPN) Peripancreatic fluid collection Abdominal pain [2] Past Medical History: Diagnosis Date Cranial nerve III palsy High cholesterol Pancreatic cyst Unspecified injury of unspecified wrist, hand and finger(s), initial encounter Hand injury [3] Past Surgical History: Procedure Laterality Date CYSTOSCOPY ENDOSCOPY EXTERNAL - ECG EXTERNAL - ECG [4] acetaminophen, 1,000 mg, Oral, q8h aspirin, 81 mg, Oral, Daily enoxaparin, 40 mg, Subcutaneous, Daily fat emulsion fish/plant based, 250 mL, Intravenous, Every other day gabapentin, 300 mg, Oral, Nightly insulin regular, 7 Units, Subcutaneous, q6h KHUSHI insulin regular, 0-10 Units, Subcutaneous, q6h KHUSHI lidocaine, 1 patch, Apply externally, q24h methocarbamol, 1,000 mg, Oral, 4x daily pantoprazole, 40 mg, Oral, Daily piperacillin-tazobactam, 3.375 g, Intravenous, q6h sodium chloride, 10 mL, Intravenous, q12h sodium chloride, 10 mL, Intravenous, q12h [5] Adult 2-in-1 TPN, 65 mL/hr, Last Rate: 65 mL/hr (05/25/252058) Cosigned by Anni Iqbal, PharmD at 05/26/2025 1:45 PM EST Associated attestation - Anni Iqbal PharmD - 05/26/2025 1:45 PM EST I have reviewed the students assessment and plan and agree with the below statements * Care Plan - Rylie Valentin RN - 05/26/2025 1:31 AM EST Problem: Adult Inpatient Plan of Care Goal: Plan of Care Review Outcome: Ongoing, Progressing Flowsheets (Taken 05/26/2025128) Progress: no change Outcome Evaluation: Patient upset over new chest tube leaking. Plan of Care Reviewed With: patient spouse Goal: Patient-Specific Goal (Individualized) Outcome: Ongoing, Progressing Goal: Absence of Hospital-Acquired Illness or Injury Outcome: Ongoing, Progressing Intervention: Prevent Skin Injury Flowsheets (Taken 05/26/2025128) Body Position: weight shifting Skin Protection: protective footwear used incontinence pads utilized Goal: Optimal Comfort and Wellbeing Outcome: Ongoing, Progressing Intervention: Monitor Pain and Promote Comfort Flowsheets (Taken 05/26/2025128) Pain Management Interventions: medication (see MAR) emotional support pillow support provided position adjusted quiet environment facilitated relaxation techniques promoted rest Problem: Pain Acute Goal: Optimal Pain Control and Function Outcome: Ongoing, Progressing Intervention: Develop Pain Management Plan Flowsheets (Taken 05/26/2025128) Pain Management Interventions: medication (see MAR) emotional support pillow support provided position adjusted quiet environment facilitated relaxation techniques promoted rest Problem: Fall Injury Risk Goal: Absence of Fall and Fall-Related Injury Outcome: Ongoing, Progressing Intervention: Identify and Manage Contributors Flowsheets (Taken 05/26/2025128) Medication Review/Management: medications reviewed Self-Care Promotion: independence encouraged Problem: Skin Injury Risk Increased Goal: Skin Health and Integrity Outcome: Ongoing, Progressing Intervention: Optimize Skin Protection Flowsheets (Taken 05/26/2025128) Activity Management: activity encouraged Pressure Reduction Techniques: frequent weight shift encouraged Pressure Reduction Devices: positioning supports utilized Skin Protection: protective footwear used incontinence pads utilized Head of Bed (HOB) Positioning: HOB elevated Problem: Infection Goal: Absence of Infection Signs and Symptoms Outcome: Ongoing, Progressing Intervention: Prevent or Manage Infection Flowsheets (Taken 05/26/2025128) Infection Management: aseptic technique maintained Fever Reduction/Comfort Measures: lightweight bedding lightweight clothing Isolation Precautions: precautions maintained * Care Plan - Jeannette Jones RN - 05/25/2025 6:19 PM EST Problem: Adult Inpatient Plan of Care Goal: Plan of Care Review Outcome: Ongoing, Progressing Flowsheets (Taken 05/25/20251817) Progress: no change Plan of Care Reviewed With: patient spouse Problem: Adult Inpatient Plan of Care Goal: Patient-Specific Goal (Individualized) Flowsheets (Taken 05/25/2025 0802) Patient/Family-Specific Goals (Include Timeframe): pt will be free from falls/injury during this shift Individualized Care Needs: safety Anxieties, Fears or Concerns: Frustrated with tubes/wires Goal: Absence of Hospital-Acquired Illness or Injury Intervention: Identify and Manage Fall Risk Flowsheets (Taken 05/25/2025 0802) Safety Promotion/Fall Prevention: assistive device/personal items within reach clutter-free environment maintained lighting adjusted nonskid shoes/slippers when out of bed room organization consistent safety round/check completed Intervention: Prevent Skin Injury Flowsheets Taken 05/25/2025 1300 Skin Protection: skin sealant/moisture barrier applied Taken 05/25/2025 1000 Body Position: weight shifting Intervention: Prevent and Manage VTE (Venous Thromboembolism) Risk Flowsheets (Taken 05/25/2025 0800) VTE Prevention/Management: bilateral SCDs (sequential compression devices) off patient refused intervention medication Intervention: Prevent Infection Flowsheets (Taken 05/24/2025 1152) Infection Prevention: hand hygiene promoted equipment surfaces disinfected Goal: Optimal Comfort and Wellbeing Intervention: Monitor Pain and Promote Comfort Flowsheets (Taken 05/25/2025 1650) Pain Management Interventions: declines Intervention: Provide Person-Centered Care Flowsheets (Taken 05/24/2025 1152) Trust Relationship/Rapport: care explained choices provided emotional support provided empathic listening provided questions answered questions encouraged reassurance provided thoughts/feelings acknowledged Problem: Pain Acute Goal: Optimal Pain Control and Function Intervention: Optimize Psychosocial Wellbeing Flowsheets (Taken 05/25/20251817) Supportive Measures: active listening utilized Diversional Activities: television Spiritual Activities Assistance: hope instilled Intervention: Develop Pain Management Plan Flowsheets (Taken 05/25/2025 1650) Pain Management Interventions: declines Intervention: Prevent or Manage Pain Flowsheets (Taken 05/25/20251817) Sensory Stimulation Regulation: care clustered Bowel Elimination Promotion: adequate fluid intake promoted ambulation promoted commode/bedpan at bedside Sleep/Rest Enhancement: relaxation techniques promoted Medication Review/Management: medications reviewed Problem: Fall Injury Risk Goal: Absence of Fall and Fall-Related Injury Intervention: Identify and Manage Contributors Flowsheets (Taken 05/25/20251817) Medication Review/Management: medications reviewed Self-Care Promotion: independence encouraged BADL personal objects within reach Intervention: Promote Injury-Free Environment Flowsheets (Taken 05/25/2025 0802) Safety Promotion/Fall Prevention: assistive device/personal items within reach clutter-free environment maintained lighting adjusted nonskid shoes/slippers when out of bed room organization consistent safety round/check completed Problem: Skin Injury Risk Increased Goal: Skin Health and Integrity Intervention: Optimize Skin Protection Flowsheets Taken 05/25/20251817 Pressure Reduction Devices: positioning supports utilized Head of Bed (HOB) Positioning: HOB elevated Taken 05/25/2025 1300 Skin Protection: skin sealant/moisture barrier applied Taken 05/25/2025 1000 Activity Management: up in chair Intervention: Promote and Optimize Oral Intake Flowsheets (Taken 05/25/20251817) Oral Nutrition Promotion: physical activity promoted Nutrition Interventions: meal set-up provided Problem: Infection Goal: Absence of Infection Signs and Symptoms Intervention: Prevent or Manage Infection Flowsheets (Taken 05/25/20251817) Infection Management: aseptic technique maintained Fever Reduction/Comfort Measures: lightweight bedding * Procedures - Mendez Ceja DO - 05/25/2025 12:40 PM ESTAssociated Order(s): Chest Tube Insertion Post-Procedure Diagnose(s): Pleural effusion Chest Tube Insertion Performed by: Mendez Ceja DO Authorized by: Lokesh Anderson MD Consent: Consent obtained: Written Consent given by: Patient Risks, benefits, and alternatives were discussed: yes Risks discussed: Bleeding, damage to surrounding structures, infection, incomplete drainage, nerve damage and pain Alternatives discussed: No treatment, delayed treatment, alternative treatment and observation [place] protocol: Procedure explained and questions answered to patient or proxy's satisfaction: yes Relevant documents present and verified: yes Test results available: yes Imaging studies available: yes Required blood products, implants, devices, and special equipment available: yes Site/side marked: yes Immediately prior to procedure, a time out was called: yes Patient identity confirmed: Hospital-assigned identification number, verbally with patient and arm band Attending Supervision?: no Pre-procedure details: Skin preparation: Chlorhexidine Antibiotic: none Sedation: Sedation type: Anxiolysis Anesthesia: Anesthesia method: Local infiltration Local anesthetic: Lidocaine 1% w/o epi Procedure details: Approach: Open Placement location: L lateral Scalpel size: 10 Tube size (Fr): 28 Dilation Performed: no Dissection instrument: Finger and Tierney clamp Ultrasound guidance: no Tension pneumothorax: no Tube connected to: Suction Drainage characteristics: Serosanguinous Suture material: 0 silk Dressinx4 sterile gauze Post-procedure details: Procedure completion: Tolerated with difficulty Comments: Awaiting post placement CXR Cosigned by Dylon Griggs MD at 05/26/2025 10:38 AM EST Associated attestation - Dylon Griggs MD - 05/26/2025 10:38 AM EST I was present during all critical and hoff portions of the procedure(s) and immediately available [facility] the entire duration. See resident note for details. * Progress Notes - Maria R Lyles, PharmD - 05/25/2025 11:02 AM EST Images from the original note were not included. Pharmacist TPN Progress Note Patient: Dot Dale Age: 69 y.o. Admission Date: [id number] Subjective/Objective/Hospital Course: 69 y.o. 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 Patient has been on TPN previously (~03/30-04/25). 05/20: Patient agreeable to PICC and TPN, switched appetite stimulants (megestrol --> dronabinol), CT scan pending 05/21: 05/20/25 CT abd/pelv demonstrates loculated large left pleural effusion, chest tube placement with IR 05/23: possible washout with TSS this weekend vs next week Problem List[1] Past Medical History[2] Surgical History[3] Allergies: Patient has no known allergies. LABS: Results from last 7 days Lab Units 05/25/25 05005/24/2545705/23/2542805/22/2535205/21/2531405/20/2513105/19/25 0422 GLUCOSE mg/dL 151* 167* 177* 164* 116* 128* 132* BUN mg/dL 12 12 11 10 11 9 8 CREATININE mg/dL 0.42* 0.45* 0.43* 0.54* 0.61 0.53* 0.47* SODIUM mmol/L 135* 137 134* 136 136 136 136 POTASSIUM mmol/L 4.2 4.4 4.2 4.2 4.4 4.6 3.5* CHLORIDE mmol/L 104 105 103 105 105 104 106 CO2 mmol/L 22 22 21* 21* 21* 18* 21* CALCIUM mg/dL 8.0* 7.7* 7.9* 7.7* 7.9* 8.0* 7.9* PHOSPHORUS mg/dL 2.7 2.8 2.6 3.3 3.3 3.2 2.6 MAGNESIUM mg/dL 1.9 1.9 1.8* 1.9 1.9 2.0 1.7* Results from last 7 days Lab Units 05/25/25 05005/24/2545705/23/2542805/22/2535205/21/2531405/20/2513105/19/25 0422 WBC 10*3/uL 15.22* 13.62* 13.42* 14.71* 18.72* 18.96* 10.29 HEMOGLOBIN g/dL 10.0* 10.0* 10.4* 10.6* 11.6 13.1 11.3 HEMATOCRIT % 30.2* 30.0* 30.4* 32.3* 34.3 39.1 33.6* PLATELETS 10*3/uL 538* 517* 517* 444* 419* 479* 380* Results from last 7 days Lab Units 05/25/25 05005/24/2545705/23/2542805/22/2535205/21/2531405/20/25 0132 05/19/25 0422 ALT U/L 13 10 8* 5* 8* 11 14 AST U/L 20 22 16 11 12 21 27 ALKALINE PHOSPHATASE U/L 89 84 73 77 80 94 92 BILIRUBIN TOTAL mg/dL 0.4 0.3 0.3 0.3 0.5 0.5 0.3 ALBUMIN g/dL 2.4* 2.2* 2.1* 2.0* 2.3* 2.7* 2.4* Nutrition Labs: Lab Results Component Value Date TRIG 119 05/20/2025 BILITOT 0.4 05/25/2025 ALBUMIN 2.4 (L) 05/25/2025 PREALBUMIN 3.3 (L) 05/16/2025 HGBA1C 5.4 12/05/2020 CRP 1.5 12/07/2020 Microbiology Results Procedure Component Value Units Date/Time Blood Culture (Aerobic/Anaerobet Set) [[id number]] Collected: 05/14/25 0232 Order Status: Completed Specimen: Blood from Wrist, Left Updated: 05/19/25 0601 Culture No growth at day 5 Narrative: Low blood volume submitted, results may be compromised Blood Culture (Aerobic/Anaerobet Set) [[id number]] Collected: 05/14/25 0232 Order Status: Completed Specimen: Blood from Wrist, Right Updated: 05/19/25 0551 Culture No growth at day 5 Narrative: Low blood volume submitted, results may be compromised Body Fluid Culture and Gram Stain [[id number]] (Abnormal) (Susceptibility) Collected: 05/14/25 1647 Order Status: Completed Specimen: Body Fluid (specify site): Updated: 05/18/25 1436 Culture Heavy Growth 4+ Streptococcus constellatus Comment: This isolate has been identified using the FDA Approved [employer] System The organism value for this result has been updated. These results have been appended to the previously preliminary verified report. Edited result: Previously reported as Streptococcus species on 05/15/2025 at 1553 EST. 1+ Haemophilus parainfluenzae Comment: This isolate has been identified using the FDA Approved [employer] [place] System The organism value for this result has been updated. These results have been appended to the previously preliminary verified report. Gram Stain Result Numerous Gram positive cocci in pairs and chains Numerous Gram negative rods Numerous Polymorphonuclear leukocytes Susceptibility Streptococcus constellatus ETEST Penicillin G 0.094 Susceptible Susceptibility Haemophilus parainfluenzae Method Not Specified Beta Lactamase Negative Negative Susceptibility Comments Haemophilus parainfluenzae This organism is predictably susceptible to ampicillin or amoxicillin. Vitals: Visit Vitals BP 135/84 (BP Location: Left arm, Patient Position: Lying) Pulse 90 Temp 37.1 ??C (98.8 ??F) (Oral) Resp 25 [place] Coma Scale Score: 15 Melchor Scale Score: 16 Oxygen Therapy: None (Room air) Skin Integrity: Other (Comment) (left chest tube) Wt Readings from Last 3 Encounters: 05/25/25 68 kg (149 lb 14.6 oz) 04/30/25 70.9 kg (156 lb 4.9 oz) 04/23/25 72.5 kg (159 lb 13.3 oz) Current Diet Order: Dietary Orders (From admission, onward) Start Ordered 05/21/25 1501 Adult diet Diet texture: Regular Diet effective now References: IDDSI Diet Texture Guide Question: Diet texture Answer: Regular 05/21/25 1500 05/18/25 1218 Oral nutrition supplements Until discontinued Question Answer Comment Supplement frequency: All meals All meals supplement: Boost Very High Calorie Vanilla Quantity for All Meals of Boost Very High Calorie - Vanilla One 05/18/25 1217 05/17/25 1217 Oral nutrition supplements Until discontinued Question Answer Comment Supplement frequency: Lunch Supplement frequency: Dinner Lunch supplement: Boost Breeze Wild [employer] Quantity for Lunch of Boost Breeze [employer] One Dinner supplement: Boost Breeze Wild [employer] Quantity for Dinner of Boost Breeze [employer] One 05/17/25 1217 Current Medications Current Scheduled Medications[4] Current Continuous Medications[5] Current Anthropometrics: Admit weight: 70.6 kg Height: 162.6 cm (5' 4 ) [place] body weight: 54.7 kg (120 lb 9.5 oz) Adjusted ideal body weight: 60 kg (132 lb 5.1 oz) (129%) of IBW Body mass index is 25.73 kg/m??. Adjusted wt: 58.7 kg (if over 125% of IBW) CENTRAL IV Access: PICC (05/20/25) Estimated Nutritional Needs: HBE: 1161 kcal/day Stress Factor: 1.2 - 1.3 Total Calories/day: 1393 - 1626 Protein (amino acids): 1.3 - 1.7 grams/kg Protein (Amino acids): 76.3 - 99.8 grams/day Measured Energy Needs: Respiratory Quotient: 05/25/2025 Plan/Recommendation: labs reviewed and WNL. Continue goal TPN. GOAL TPN: DEXTROSE: 18% (281 g/day CHO) AMINO ACIDS: 6% (93.6 g/day - 1.59 g/adjusted kg/day Amino acids) @ 65 ml/hr, with 30mg/day thiamine, MVI, and Trace elements Every other day 250ml 20% SMOF lipids 1579 Total kcal/day - 26.9 kcal/adjusted kg/day Replace electrolytes outside of TPN Calcium and/or Phosphorus supplements MUST be in a separate line from the TPN to avoid precipitation Obtain BMP, magnesium, and Phos daily x 3days and then at least twice weekly Obtain LFT and TGLY weekly I have monitored the TPN therapy, including the labs, and have communicated any modifications with the primary medical/surgical team. Continue current TPN formula and lipid regimen as above. I have communicated the TPN plan with the IV room. Thank you, Maria R Lyles, PharmD, [facility] Surgery Clinical Pharmacist Available on Secure Chat [1] Patient Active Problem List Diagnosis CN III palsy, left Pituitary adenoma (CMS/HCC) IPMN (intraductal papillary mucinous neoplasm) Abnormal blood electrolyte level HLD (hyperlipidemia) History of CVA (cerebrovascular accident) Leukocytosis On total parenteral nutrition (TPN) Peripancreatic fluid collection Abdominal pain [2] Past Medical History: Diagnosis Date Cranial nerve III palsy High cholesterol Pancreatic cyst Unspecified injury of unspecified wrist, hand and finger(s), initial encounter Hand injury [3] Past Surgical History: Procedure Laterality Date CYSTOSCOPY ENDOSCOPY EXTERNAL - ECG EXTERNAL - ECG [4] acetaminophen, 1,000 mg, Oral, q8h aspirin, 81 mg, Oral, Daily enoxaparin, 40 mg, Subcutaneous, Daily fat emulsion fish/plant based, 250 mL, Intravenous, Every other day gabapentin, 300 mg, Oral, Nightly insulin regular, 7 Units, Subcutaneous, q6h KHUSHI insulin regular, 0-10 Units, Subcutaneous, q6h KHUSHI lidocaine, 1 patch, Apply externally, q24h methocarbamol, 1,000 mg, Oral, 4x daily pantoprazole, 40 mg, Oral, Daily piperacillin-tazobactam, 3.375 g, Intravenous, q6h sodium chloride, 10 mL, Intravenous, q12h sodium chloride, 10 mL, Intravenous, q12h [5] Adult 2-in-1 TPN, 65 mL/hr, Last Rate: 65 mL/hr (05/24/252021) * Progress Notes - Manisha Fung MD - 05/25/2025 10:49 AM EST Images from the original note were not included. Department of Surgery Division of Surgical Oncology Surgery Progress Note 05/25/25 Dot Dallasbrittanierohit Subjective Subjective: HPI 69F with history of IPMN s/p distal panc/spleen c/b post-op pancreatic leak requiring extended period with surgical drain in place (removed on 04/23). Presented with worsening abdominal pain, fever/chills and found to have peripancreatic fluid collection. 03/20/25: distal panc/spleen [Monica] Interval: CT with some blood at insertion site, still with minimal output. WBC increase to 15.2 from 13.6, patient remains afebrile. CXR without improvement. Thoracic surgery planning to placechest tube today if patient is amenable. Pleural flux cx remain with no growth. Patient continues to have poor PO intake, she denies N/V but reports early satiety and low appetite. I/O: UOP 750, 3x (250), BM 1x (1x), Chest tube 10 (80) Edited by: Manisha Fung MD at 05/25/2025 1044 Review of Systems: Relevant review of systems was obtained as able and is negative unless stated above in HPI. Objective Objective: Vital signs: Vitals: 05/25/25 0812 BP: Pulse: 90 Resp: 25 Temp: 37.1 ??C (98.8 ??F) SpO2: 95% Physical Exam: Physical Exam Vitals reviewed. Constitutional: General: She is not in acute distress. Appearance: She is ill-appearing. She is not toxic-appearing. HENT: Head: Normocephalic and atraumatic. Nose: Nose normal. Mouth/Throat: Mouth: Mucous membranes are dry. Eyes: General: No scleral icterus. Extraocular Movements: Extraocular movements intact. Conjunctiva/sclera: Conjunctivae normal. Cardiovascular: Rate and Rhythm: Normal rate and regular rhythm. Pulmonary: Effort: Pulmonary effort is normal. No respiratory distress. Comments: +Left Chest tube, to suction. Minimal, thick output Abdominal: General: There is no distension. Palpations: Abdomen is soft. Tenderness: There is abdominal tenderness (ATTP). There is no guarding or rebound. Comments: Laparotomy incision healing appropriately Musculoskeletal: General: No swelling. Normal range of motion. Cervical back: Normal range of motion. Skin: General: Skin is warm and dry. Capillary Refill: Capillary refill takes less than 2 seconds. Coloration: Skin is not jaundiced. Neurological: General: No focal deficit present. Mental Status: She is alert and oriented to person, place, and time. Psychiatric: Mood and Affect: Mood normal. Behavior: Behavior normal. Thought Content: Thought content normal. Judgment: Judgment normal. Intake/Output Summary (Last 24 hours) at 05/25/2025 1103 Last data filed at 05/25/2025 0805 Gross per 24 hour Intake 240 ml Output 780 ml Net -540 ml Lines/Drains/Tubes: - PICC (right) - Pigtail chest tube (left) Labs in last 18 hours: CBC WBC 15.22 (H) Hb 10.0 (L) Plt 538 (H) Hct 30.2 (L) ANC ?? INR ??, PTT ??, Anti-Xa ?? MCV 88 BMP Na 135 (L) Cl 104 BUN 12 Glu 151 (H) K 4.2 Co2 22 Cr 0.42 (L) Ca 8.0 (L) iCa ?? Mg 1.9, Phos 2.7 Lactate ?? LFT AST 20 AlkPhos 89 T Prot 6.2 (L) ALK 13 Bili 0.4 Alb ?? D.Bili ?? Lab Trends: H/H Results from last 7 days Lab Units 05/25/25 0507 05/24/25 0458 05/23/25 0429 HEMOGLOBIN g/dL 10.0* 10.0* 10.4* HEMATOCRIT % 30.2* 30.0* 30.4* INR Cr Results from last 7 days Lab Units 05/25/25 0507 05/24/25 0458 05/23/25 0429 CREATININE mg/dL 0.42* 0.45* 0.43* Lactate No lab exists for component: LACTTEVEN Radiographic Interpretation: I have reviewed the imaging below, there is evidence of persistent large volume left pleural effusion. XR Chest 1 View Result Date: 05/25/2025 Stable exam. CRITICAL RESULT: No. COMMUNICATION: Per this written report. By electronically signingthis report, I, the attending physician, attest that I have personally reviewed the images/data forthe above examination(s) and agree with the final edited report. Drafted by Giovanni Cm MD on 05/25/2025 7:44 AM Final report signed by Heriberto Ivy MD on 05/25/2025 8:27 AM Medications reviewed. Vital signs reviewed. Labs reviewed. Assessment/Plan Assessment and Plan: Medical Problems Problem List * (Principal) Peripancreatic fluid collection CN III palsy, left Overview Addendum 03/31/2025 7:55 AM by Katlyn Hopkins APRN Hx of Abnormal blood electrolyte level Overview Signed 03/21/2025 9:54 AM by Katlyn Hopkins APRN - daily/PRN CMP, Mg, Phos - replete as appropriate - goal: K>4, phos>3, mg>2 HLD (hyperlipidemia) Overview Addendum 03/28/2025 8:24 AM by Katlyn Hopkins APRN Continue statin History of CVA (cerebrovascular accident) Overview Signed 03/21/2025 9:58 AM by Katlyn Hopkins APRN 11/2020 CT Head showed old left occipital & left temporal infarcts. On ASA 81mg daily. Leukocytosis Overview Addendum 04/04/2025 9:46 AM by Katlyn Hopkins APRN Down trending Daily CBC Abx: fidaxomicin (changed to Vancomycin due to cost on day of dc (03/30-04/09) levofloxacin/flagyl (03/30-04/12) Zosyn 03/29-03/30 zosyn [03/20-] x48h post-op Cx: GI panel/C. Diff: +GDH- Toxin, all other negative (03/30) On total parenteral nutrition (TPN) Overview Addendum 04/04/2025 9:18 AM by Katlyn Hopknis APRN - initiated on 03/30/25, continue on dc -daily CMP,mg,phos -weekly pre-albumin, triglycerides Abdominal pain Pituitary adenoma (CMS/HCC) Overview Deleted 03/21/2025 10:00 AM by Katlyn Hopkins APRN IPMN (intraductal papillary mucinous neoplasm) Overview Addendum 04/04/2025 9:18 AM by Katlyn Hopkins APRN 03/20/2025:ex-lap, SAMIA, distal pancreatectomy w/splenectomy, celiac axis node dissection [Monica] Keep DARIAN bulb on dc Present on Admission: Peripancreatic fluid collection On total parenteral nutrition (TPN) 69F with history of IPMN s/p distal panc/spleen c/b post-op pancreatic leak requiring extended period with surgical drain in place (removed on 04/23). Presented with worsening abdominal pain, fever/chills and found to have peripancreatic fluid collection s/p drain replacement, removed 05/22 for minimal output. Hospital course complicated by large left pleural effusion requiring chest tube placement. Unfortunately, effusion is not resolving with CT. Thoracic surgery consulted and planning for chest tube placement today, patient initially expressed hesitancy but after further discussion states she is agreeable. We did discuss that this may not completely resolve the effusion and she may stillrequire VATS or other indicated, more invasive, procedure. However, this is the best course of action to take at this time and gives us the best opportunity to avoid more invasive intervention if at all possible. Plan: [ ] schedule splenectomy vaccines [ ] AM CXR Daily - Continues to have poor PO. TPN, regular diet with boost. - Chest tube fluid studies - amylase, lipase - per TSS - IR chest tube 05/21 NGD4 - On zosyn 05/20 until WBC normalizes -Thoracic: CT to suction. Planning to replace pigtail with thoracostomy tube in setting of minimal CT output and lack of CXR improvement - Drain cx: Streptococcus constellatus, H. Parainfluenzae. Diet - TPN, regular Abx - zosyn Pain - prn oxy, tylenol, robaxin, lido patch Ppx - pLOV, PPI Endo - subcutaneous TLD - L CT, R PICC PT/OT - ordered Dispo - pending Edited by: Manisha Fung MD at 05/25/2025 1103 Dispo: Continue Current Level of Care Manisha Fung MD General Surgery, PGY1 Cosigned by Mookie Sanford MD at 05/27/2025 6:46 PM EST Associated attestation - Mookie Sanford MD - 05/27/2025 6:46 PM EST I saw and evaluated the patient with the resident/fellow. I discussed the case with the resident/fellow and agree with the findings and plan as documented. * Care Plan - Rylie Valentin RN - 05/25/2025 2:05 AM EST Problem: Adult Inpatient Plan of Care Goal: Plan of Care Review Outcome: Ongoing, Progressing Flowsheets (Taken 05/25/2025201) Progress: no change Outcome Evaluation: Patient anxious about POC. Does not wish to discuss. Plan of Care Reviewed With: patient spouse Goal: Patient-Specific Goal (Individualized) Outcome: Ongoing, Progressing Goal: Absence of Hospital-Acquired Illness or Injury Outcome: Ongoing, Progressing Intervention: Prevent Skin Injury Flowsheets (Taken 05/25/2025201) Body Position: weight shifting Skin Protection: incontinence pads utilized protective footwear used Goal: Optimal Comfort and Wellbeing Outcome: Ongoing, Progressing Intervention: Monitor Pain and Promote Comfort Flowsheets (Taken 05/25/2025201) Pain Management Interventions: medication (see MAR) emotional support pillow support provided position adjusted quiet environment facilitated relaxation techniques promoted rest Problem: Pain Acute Goal: Optimal Pain Control and Function Outcome: Ongoing, Progressing Intervention: Develop Pain Management Plan Flowsheets (Taken 05/25/2025201) Pain Management Interventions: medication (see MAR) emotional support pillow support provided position adjusted quiet environment facilitated relaxation techniques promoted rest Problem: Fall Injury Risk Goal: Absence of Fall and Fall-Related Injury Outcome: Ongoing, Progressing Intervention: Identify and Manage Contributors Flowsheets (Taken 05/25/2025 020) Medication Review/Management: medications reviewed Self-Care Promotion: independence encouraged Problem: Skin Injury Risk Increased Goal: Skin Health and Integrity Outcome: Ongoing, Progressing Intervention: Optimize Skin Protection Flowsheets (Taken 05/25/2025 020) Activity Management: activity adjusted per tolerance Pressure Reduction Techniques: frequent weight shift encouraged Pressure Reduction Devices: positioning supports utilized Skin Protection: incontinence pads utilized protective footwear used Head of Bed (HOB) Positioning: HOB elevated Problem: Infection Goal: Absence of Infection Signs and Symptoms Outcome: Ongoing, Progressing Intervention: Prevent or Manage Infection Flowsheets (Taken 05/25/2025 020) Infection Management: aseptic technique maintained Fever Reduction/Comfort Measures: lightweight bedding lightweight clothing Isolation Precautions: precautions maintained * Progress Notes - Maria R Lyles, PharmD - 05/24/2025 12:55 PM EST Images from the original note were not included. Pharmacist TPN Progress Note Patient: Dot Dale Age: 69 y.o. Admission Date: [id number] Subjective/Objective/Hospital Course: 69 y.o. 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 Patient has been on TPN previously (~03/30-04/25). 05/20: Patient agreeable to PICC and TPN, switched appetite stimulants (megestrol --> dronabinol), CT scan pending 05/21: 05/20/25 CT abd/pelv demonstrates loculated large left pleural effusion, chest tube placement with IR 05/23: possible washout with TSS this weekend vs next week Problem List[1] Past Medical History[2] Surgical History[3] Allergies: Patient has no known allergies. LABS: Results from last 7 days Lab Units 05/24/25 0458 05/23/25 0429 05/22/25 0353 05/21/25 0315 11/13105/19/2542105/18/25 0433 GLUCOSE mg/dL 167* 177* 164* 116* 128* 132* 134* BUN mg/dL 12 11 10 11 9 8 6* CREATININE mg/dL 0.45* 0.43* 0.54* 0.61 0.53* 0.47* 0.54* SODIUM mmol/L 137 134* 136 136 136 136 139 POTASSIUM mmol/L 4.4 4.2 4.2 4.4 4.6 3.5* 3.9 CHLORIDE mmol/L 105 103 105 105 104 106 108* CO2 mmol/L 22 21* 21* 21* 18* 21* 21* CALCIUM mg/dL 7.7* 7.9* 7.7* 7.9* 8.0* 7.9* 7.8* PHOSPHORUS mg/dL 2.8 2.6 3.3 3.3 3.2 2.6 2.5 MAGNESIUM mg/dL 1.9 1.8* 1.9 1.9 2.0 1.7* 2.1 Results from last 7 days Lab Units 05/24/2545705/23/2542805/22/2535205/21/2531405/20/2513105/19/2542105/18/25 0433 WBC 10*3/uL 13.62* 13.42* 14.71* 18.72* 18.96* 10.29 9.04 HEMOGLOBIN g/dL 10.0* 10.4* 10.6* 11.6 13.1 11.3 10.9* HEMATOCRIT % 30.0* 30.4* 32.3* 34.3 39.1 33.6* 32.1* PLATELETS 10*3/uL 517* 517* 444* 419* 479* 380* 355 Results from last 7 days Lab Units 05/24/2545705/23/2542805/22/2535205/21/2531405/20/2513105/19/2542105/18/25 0433 ALT U/L 10 8* 5* 8* 11 14 13 AST U/L 22 16 11 12 21 27 33 ALKALINE PHOSPHATASE U/L 84 73 77 80 94 92 97 BILIRUBIN TOTAL mg/dL 0.3 0.3 0.3 0.5 0.5 0.3 0.4 ALBUMIN g/dL 2.2* 2.1* 2.0* 2.3* 2.7* 2.4* 2.4* Nutrition Labs: Lab Results Component Value Date TRIG 119 05/20/2025 BILITOT 0.3 05/24/2025 ALBUMIN 2.2 (L) 05/24/2025 PREALBUMIN 3.3 (L) 05/16/2025 HGBA1C 5.4 12/05/2020 CRP 1.5 12/07/2020 Microbiology Results Procedure Component Value Units Date/Time Blood Culture (Aerobic/Anaerobet Set) [[id number]] Collected: 05/14/25 0232 Order Status: Completed Specimen: Blood from Wrist, Left Updated: 05/19/25 0601 Culture No growth at day 5 Narrative: Low blood volume submitted, results may be compromised Blood Culture (Aerobic/Anaerobet Set) [[id number]] Collected: 05/14/25 0232 Order Status: Completed Specimen: Blood from Wrist, Right Updated: 05/19/25 0551 Culture No growth at day 5 Narrative: Low blood volume submitted, results may be compromised Body Fluid Culture and Gram Stain [[id number]] (Abnormal) (Susceptibility) Collected: 05/14/25 1647 Order Status: Completed Specimen: Body Fluid (specify site): Updated: 05/18/25 1436 Culture Heavy Growth 4+ Streptococcus constellatus Comment: This isolate has been identified using the FDA Approved [employer] [place] System The organism value for this result has been updated. These results have been appended to the previously preliminary verified report. Edited result: Previously reported as Streptococcus species on 05/15/2025 at 1553 EST. 1+ Haemophilus parainfluenzae Comment: This isolate has been identified using the FDA Approved [employer] [place] System The organism value for this result has been updated. These results have been appended to the previously preliminary verified report. Gram Stain Result Numerous Gram positive cocci in pairs and chains Numerous Gram negative rods Numerous Polymorphonuclear leukocytes Susceptibility Streptococcus constellatus ETEST Penicillin G 0.094 Susceptible Susceptibility Haemophilus parainfluenzae Method Not Specified Beta Lactamase Negative Negative Susceptibility Comments Haemophilus parainfluenzae This organism is predictably susceptible to ampicillin or amoxicillin. Vitals: Visit Vitals BP (!) 159/80 (BP Location: Right arm, Patient Position: Lying) Pulse 90 Temp 36.7 ??C (98.1 ??F) (Oral) Resp 22 Katie Coma Scale Score: 15 Melchor Scale Score: 17 Oxygen Therapy: None (Room air) Skin Integrity: Other (Comment) (L chest tube) Wt Readings from Last 3 Encounters: 05/24/25 67.8 kg (149 lb 7.6 oz) 04/30/25 70.9 kg (156 lb 4.9 oz) 04/23/25 72.5 kg (159 lb 13.3 oz) Current Diet Order: Dietary Orders (From admission, onward) Start Ordered 05/21/25 1501 Adult diet Diet texture: Regular Diet effective now References: IDDSI Diet Texture Guide Question: Diet texture Answer: Regular 05/21/25 1500 05/18/25 1218 Oral nutrition supplements Until discontinued Question Answer Comment Supplement frequency: All meals All meals supplement: Boost Very High Calorie Vanilla Quantity for All Meals of Boost Very High Calorie - Vanilla One 05/18/25 1217 05/17/25 1217 Oral nutrition supplements Until discontinued Question Answer Comment Supplement frequency: Lunch Supplement frequency: Dinner Lunch supplement: Boost Breeze Wild Andersen Quantity for Lunch of Boost Breeze Wild [place]en One Dinner supplement: Boost Breeze Wild Andersen Quantity for Dinner of Boost Breeze Wild Andersen One 05/17/25 1217 Current Medications Current Scheduled Medications[4] Current Continuous Medications[5] Current Anthropometrics: Admit weight: 70.6 kg Height: 162.6 cm (5' 4 ) [place] body weight: 54.7 kg (120 lb 9.5 oz) Adjusted ideal body weight: 59.9 kg (132 lb 2.3 oz) (129%) of IBW Body mass index is 25.66 kg/m??. Adjusted wt: 58.7 kg (if over 125% of IBW) CENTRAL IV Access: PICC (05/20/25) Estimated Nutritional Needs: HBE: 1161 kcal/day Stress Factor: 1.2 - 1.3 Total Calories/day: 1393 - 1626 Protein (amino acids): 1.3 - 1.7 grams/kg Protein (Amino acids): 76.3 - 99.8 grams/day Measured Energy Needs: Respiratory Quotient: 05/24/2025 Plan/Recommendation: labs reviewed and WNL. Continue goal TPN. GOAL TPN: DEXTROSE: 18% (281 g/day CHO) AMINO ACIDS: 6% (93.6 g/day - 1.59 g/adjusted kg/day Amino acids) @ 65 ml/hr, with 30mg/day thiamine, MVI, and Trace elements Every other day 250ml 20% SMOF lipids 1579 Total kcal/day - 26.9 kcal/adjusted kg/day Replace electrolytes outside of TPN Calcium and/or Phosphorus supplements MUST be in a separate line from the TPN to avoid precipitation Obtain BMP, magnesium, and Phos daily x 3days and then at least twice weekly Obtain LFT and TGLY weekly I have monitored the TPN therapy, including the labs, and have communicated any modifications with the primary medical/surgical team. Continue current TPN formula and lipid regimen as above. I have communicated the TPN plan with the IV room. Thank you, Maria R Lyles, PharmD, [facility] Surgery Clinical Pharmacist Available on Secure Chat [1] Patient Active Problem List Diagnosis CN III palsy, left Pituitary adenoma (CMS/HCC) IPMN (intraductal papillary mucinous neoplasm) Abnormal blood electrolyte level HLD (hyperlipidemia) History of CVA (cerebrovascular accident) Leukocytosis On total parenteral nutrition (TPN) Peripancreatic fluid collection Abdominal pain [2] Past Medical History: Diagnosis Date Cranial nerve III palsy High cholesterol Pancreatic cyst Unspecified injury of unspecified wrist, hand and finger(s), initial encounter Hand injury [3] Past Surgical History: Procedure Laterality Date CYSTOSCOPY ENDOSCOPY EXTERNAL - ECG EXTERNAL - ECG [4] acetaminophen, 1,000 mg, Oral, q8h aspirin, 81 mg, Oral, Daily enoxaparin, 40 mg, Subcutaneous, Daily fat emulsion fish/plant based, 250 mL, Intravenous, Every other day gabapentin, 300 mg, Oral, Nightly insulin regular, 6 Units, Subcutaneous, q6h KHUSHI insulin regular, 0-10 Units, Subcutaneous, q6h KHUSHI lidocaine, 1 patch, Apply externally, q24h methocarbamol, 1,000 mg, Oral, 4x daily mupirocin, 1 Application, Each Nostril, BID pantoprazole, 40 mg, Oral, Daily piperacillin-tazobactam, 3.375 g, Intravenous, q6h sodium chloride, 10 mL, Intravenous, q12h sodium chloride, 10 mL, Intravenous, q12h [5] Adult 2-in-1 TPN, 65 mL/hr, Last Rate: 65 mL/hr (05/23/252019) * Progress Notes - Manisha Fung MD - 05/24/2025 12:35 PM EST Images from the original note were not included. Department of Surgery Division of Surgical Oncology Surgery Progress Note 05/24/25 [place] Subjective Subjective: HPI 69F with history of IPMN s/p distal panc/spleen c/b post-op pancreatic leak requiring extended period with surgical drain in place (removed on 04/23). Presented with worsening abdominal pain, fever/chills and found to have peripancreatic fluid collection. 03/20/25: distal panc/spleen [Monica] Interval: POD4. Post-op course c/b large L pleural effusion, CT placed 3 days ago. CXR without significant improvement, low CT output. Culture from IR NGD4. Thoracic surgery plan for washout this weekend vs next week. Continues to have poor PO intake, trialed marinol but d/c due to dizziness. Patient c/o pain associated with chest tube. Otherwise she is clinically stable without any acute concerns. I/O: UOP 250 (550+ x1), BM 1x (2x), Chest tube 80 (440) Edited by: Manisha Fung MD at 05/24/2025 1232 Review of Systems: Relevant review of systems was obtained as able and is negative unless stated above in HPI. Objective Objective: Vital signs: Vitals: 05/24/25 1121 BP: (!) 159/80 Pulse: 90 Resp: 22 Temp: 36.7 ??C (98.1 ??F) SpO2: 94% Physical Exam: Physical Exam Vitals reviewed. Constitutional: General: She is not in acute distress. Appearance: She is not toxic-appearing. HENT: Head: Normocephalic and atraumatic. Nose: Nose normal. Eyes: General: No scleral icterus. Extraocular Movements: Extraocular movements intact. Conjunctiva/sclera: Conjunctivae normal. Pulmonary: Effort: Pulmonary effort is normal. No respiratory distress. Comments: +Left Chest tube, to suction. Minimal, thick output Abdominal: General: There is no distension. Palpations: Abdomen is soft. Tenderness: There is abdominal tenderness (ATTP). There is no guarding or rebound. Comments: Laparotomy incision healing appropriately Musculoskeletal: General: No swelling. Normal range of motion. Cervical back: Normal range of motion. Skin: General: Skin is warm and dry. Coloration: Skin is not jaundiced. Neurological: General: No focal deficit present. Mental Status: She is alert and oriented to person, place, and time. Psychiatric: Mood and Affect: Mood normal. Behavior: Behavior normal. Thought Content: Thought content normal. Judgment: Judgment normal. Intake/Output Summary (Last 24 hours) at 05/24/2025 1241 Last data filed at 05/24/2025 1130 Gross per 24 hour Intake 511.81 ml Output 340 ml Net 171.81 ml Lines/Drains/Tubes: - L Chest tube - R PICC line Labs in last 18 hours: CBC WBC 13.62 (H) Hb 10.0 (L) Plt 517 (H) Hct 30.0 (L) ANC ?? INR ??, PTT ??, Anti-Xa ?? MCV 88 BMP Na 137 Cl 105 BUN 12 Glu 167 (H) K 4.4 Co2 22 Cr 0.45 (L) Ca 7.7 (L) iCa ?? Mg 1.9, Phos 2.8 Lactate ?? LFT AST 22 AlkPhos 84 T Prot 6.1 (L) ALK 10 Bili 0.3 Alb ?? D.Bili ?? Lab Trends: H/H Results from last 7 days Lab Units 05/24/2545705/23/2542805/22/25 0353 HEMOGLOBIN g/dL 10.0* 10.4* 10.6* HEMATOCRIT % 30.0* 30.4* 32.3* INR Cr Results from last 7 days Lab Units 05/24/2545705/23/2542805/22/25 0353 CREATININE mg/dL 0.45* 0.43* 0.54* Lactate No lab exists for component: LACTTEVEN Radiographic Interpretation: I have reviewed the imaging below, there is evidence of stable, large left pleural effusion XR Chest 1 View Result Date: 05/24/2025 Stable exam. CRITICAL RESULT: No. COMMUNICATION: Per this written report. By electronically signingthis report, I, the attending physician, attest that I have personally reviewed the images/data forthe above examination(s) and agree with the final edited report. Drafted by Giovanni Cm MD on 05/24/2025 7:08 AM Final report signed by Heriberto Ivy MD on 05/24/2025 8:33 AM Medications reviewed. Vital signs reviewed. Labs reviewed. Assessment/Plan Assessment and Plan: Medical Problems Problem List * (Principal) Peripancreatic fluid collection CN III palsy, left Overview Addendum 03/31/2025 7:55 AM by Katlyn Hopkins APRN Hx of Abnormal blood electrolyte level Overview Signed 03/21/2025 9:54 AM by Katlyn Hopkins APRN - daily/PRN CMP, Mg, Phos - replete as appropriate - goal: K>4, phos>3, mg>2 HLD (hyperlipidemia) Overview Addendum 03/28/2025 8:24 AM by Katlyn Hopkins APRN Continue statin History of CVA (cerebrovascular accident) Overview Signed 03/21/2025 9:58 AM by Katlyn Hopkins APRN 11/2020 CT Head showed old left occipital & left temporal infarcts. On ASA 81mg daily. Leukocytosis Overview Addendum 04/04/2025 9:46 AM by Katlyn Hopkins APRN Down trending Daily CBC Abx: fidaxomicin (changed to Vancomycin due to cost on day of dc (03/30-04/09) levofloxacin/flagyl (03/30-04/12) Zosyn 03/29-03/30 zosyn [03/20-] x48h post-op Cx: GI panel/C. Diff: +GDH- Toxin, all other negative (03/30) On total parenteral nutrition (TPN) Overview Addendum 04/04/2025 9:18 AM by Katlyn Hopkins APRN - initiated on 03/30/25, continue on dc -daily CMP,mg,phos -weekly pre-albumin, triglycerides Abdominal pain Pituitary adenoma (CMS/HCC) Overview Deleted 03/21/2025 10:00 AM by Katlyn Hopkins APRN IPMN (intraductal papillary mucinous neoplasm) Overview Addendum 04/04/2025 9:18 AM by Katlyn Hopkins APRN 03/20/2025:ex-lap, SAMIA, distal pancreatectomy w/splenectomy, celiac axis node dissection [Monica] Keep DARIAN bulb on dc Present on Admission: Peripancreatic fluid collection 69F with history of IPMN s/p distal panc/spleen c/b post-op pancreatic leak requiring extended period with surgical drain in place (removed on 04/23). Presented with worsening abdominal pain, fever/chills and found to have peripancreatic fluid collection s/p drain replacement, removed 05/22 for minimal output. Hospital course complicated by large left pleural effusion requiring chest tube placement. Unfortunately, effusion is not resolving with CT. Thoracic surgery consulted and evaluating patient for likely surgical intervention. Plan: [ ] schedule splenectomy vaccines [ ] AM CXR Daily - Continues to have poor PO, resistant to getting out of bed at all - IR chest tube 05/21 NGD4 - On zosyn 05/20 until WBC normalizes -Thoracic: CT to suction, washout this weekend vs early next week. F/u with plans in setting of minimal CT output and lack of CXR improvement - Drain cx: Streptococcus constellatus, H. Parainfluenzae. Diet - TPN, regular Abx - zosyn Pain - prn oxy, tylenol, robaxin, lido patch Ppx - pLOV, PPI Endo - subcutaneous TLD - L CT, R PICC PT/OT - ordered Dispo - pending Edited by: Manisha Fung MD at 05/24/2025 1241 Dispo: Continue Current Level of Care Manisha Fung MD General Surgery, PGY1 Cosigned by Mookie Sanford MD at 05/27/2025 6:45 PM EST Associated attestation - Mookie Sanford MD - 05/27/2025 6:45 PM EST I saw and evaluated the patient with the resident/fellow. I discussed the case with the resident/fellow and agree with the findings and plan as documented. * Care Plan - Jeannette Jones RN - 05/24/2025 11:54 AM EST Problem: Adult Inpatient Plan of Care Goal: Plan of Care Review Outcome: Ongoing, Progressing Flowsheets (Taken 05/24/2025 1152) Progress: improving Plan of Care Reviewed With: patient spouse Goal: Patient-Specific Goal (Individualized) Outcome: Ongoing, Progressing Flowsheets (Taken 05/24/2025 08) Patient/Family-Specific Goals (Include Timeframe): pt will report pain level tolerable with currentpain medication regimen during this shift Individualized Care Needs: pain mgmt Anxieties, Fears or Concerns: pt frustrated with tubes/wires Goal: Absence of Hospital-Acquired Illness or Injury Outcome: Ongoing, Progressing Intervention: Identify and Manage Fall Risk Flowsheets (Taken 05/24/2025 08) Safety Promotion/Fall Prevention: assistive device/personal items within reach clutter-free environment maintained lighting adjusted nonskid shoes/slippers when out of bed room organization consistent Intervention: Prevent Skin Injury Flowsheets Taken 05/24/2025 1152 Skin Protection: protective footwear used Taken 05/24/2025 1000 Body Position: weight shifting Intervention: Prevent and Manage VTE (Venous Thromboembolism) Risk Flowsheets (Taken 05/24/2025 0805) VTE Prevention/Management: bilateral SCDs (sequential compression devices) off patient refused intervention medication education provided Intervention: Prevent Infection Flowsheets (Taken 05/24/2025 1152) Infection Prevention: hand hygiene promoted equipment surfaces disinfected Goal: Optimal Comfort and Wellbeing Outcome: Ongoing, Progressing Intervention: Monitor Pain and Promote Comfort Flowsheets (Taken 05/24/2025 0852) Pain Management Interventions: medication (see MAR) emotional support quiet environment facilitated relaxation techniques promoted rest Intervention: Provide Person-Centered Care Flowsheets (Taken 05/24/2025 1152) Trust Relationship/Rapport: care explained choices provided emotional support provided empathic listening provided questions answered questions encouraged reassurance provided thoughts/feelings acknowledged Problem: Pain Acute Goal: Optimal Pain Control and Function Outcome: Ongoing, Progressing Intervention: Optimize Psychosocial Wellbeing Flowsheets (Taken 05/24/2025 1152) Supportive Measures: active listening utilized Diversional Activities: television Spiritual Activities Assistance: hope instilled Intervention: Develop Pain Management Plan Flowsheets (Taken 05/24/2025 0852) Pain Management Interventions: medication (see MAR) emotional support quiet environment facilitated relaxation techniques promoted rest Intervention: Prevent or Manage Pain Flowsheets (Taken 05/24/2025 1152) Sensory Stimulation Regulation: quiet environment promoted care clustered Bowel Elimination Promotion: adequate fluid intake promoted commode/bedpan at bedside Sleep/Rest Enhancement: relaxation techniques promoted Medication Review/Management: medications reviewed Problem: Fall Injury Risk Goal: Absence of Fall and Fall-Related Injury Outcome: Ongoing, Progressing Intervention: Identify and Manage Contributors Flowsheets (Taken 05/24/2025 1152) Medication Review/Management: medications reviewed Self-Care Promotion: independence encouraged Intervention: Promote Injury-Free Environment Flowsheets (Taken 05/24/2025 0805) Safety Promotion/Fall Prevention: assistive device/personal items within reach clutter-free environment maintained lighting adjusted nonskid shoes/slippers when out of bed room organization consistent Problem: Skin Injury Risk Increased Goal: Skin Health and Integrity Outcome: Ongoing, Progressing Intervention: Optimize Skin Protection Flowsheets Taken 05/24/2025 1152 Pressure Reduction Techniques: frequent weight shift encouraged Pressure Reduction Devices: positioning supports utilized Skin Protection: protective footwear used Head of Bed (HOB) Positioning: HOB elevated Taken 05/24/2025 0805 Activity Management: activity adjusted per tolerance Intervention: Promote and Optimize Oral Intake Flowsheets (Taken 05/24/2025 1152) Oral Nutrition Promotion: physical activity promoted Nutrition Interventions: meal set-up provided Problem: Infection Goal: Absence of Infection Signs and Symptoms Outcome: Ongoing, Progressing Intervention: Prevent or Manage Infection Flowsheets (Taken 05/24/2025 1152) Infection Management: aseptic technique maintained Fever Reduction/Comfort Measures: lightweight bedding * Care Plan - Rylie Valentin RN - 05/23/2025 10:43 PM EST Problem: Adult Inpatient Plan of Care Goal: Plan of Care Review Outcome: Ongoing, Progressing Flowsheets (Taken 05/23/2025 2241) Progress: no change Outcome Evaluation: Patient does not wish to discuss POC Plan of Care Reviewed With: patient spouse Goal: Patient-Specific Goal (Individualized) Outcome: Ongoing, Progressing Goal: Absence of Hospital-Acquired Illness or Injury Outcome: Ongoing, Progressing Intervention: Prevent Skin Injury Flowsheets (Taken 05/23/20252240) Body Position: weight shifting Skin Protection: incontinence pads utilized Goal: Optimal Comfort and Wellbeing Outcome: Ongoing, Progressing Intervention: Monitor Pain and Promote Comfort Flowsheets (Taken 05/23/20252240) Pain Management Interventions: medication (see MAR) emotional support pillow support provided position adjusted quiet environment facilitated relaxation techniques promoted rest Problem: Pain Acute Goal: Optimal Pain Control and Function Outcome: Ongoing, Progressing Intervention: Develop Pain Management Plan Flowsheets (Taken 05/23/20252240) Pain Management Interventions: medication (see MAR) emotional support pillow support provided position adjusted quiet environment facilitated relaxation techniques promoted rest Problem: Fall Injury Risk Goal: Absence of Fall and Fall-Related Injury Outcome: Ongoing, Progressing Intervention: Identify and Manage Contributors Flowsheets (Taken 05/23/20252240) Medication Review/Management: medications reviewed Self-Care Promotion: independence encouraged Problem: Skin Injury Risk Increased Goal: Skin Health and Integrity Outcome: Ongoing, Progressing Intervention: Optimize Skin Protection Flowsheets (Taken 05/23/20252240) Activity Management: activity adjusted per tolerance Pressure Reduction Techniques: frequent weight shift encouraged Pressure Reduction Devices: positioning supports utilized Skin Protection: incontinence pads utilized Head of Bed (HOB) Positioning: HOB elevated Problem: Infection Goal: Absence of Infection Signs and Symptoms Outcome: Ongoing, Progressing Intervention: Prevent or Manage Infection Flowsheets (Taken 05/23/20252240) Infection Management: aseptic technique maintained Fever Reduction/Comfort Measures: lightweight bedding lightweight clothing Isolation Precautions: precautions maintained * Progress Notes - Maria R Lyles, PharmD - 05/23/2025 10:32 AM EST Images from the original note were not included. Pharmacist TPN Progress Note Patient: Dot Dale Age: 69 y.o. Admission Date: [id number] Subjective/Objective/Hospital Course: 69 y.o. 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 Patient has been on TPN previously (~03/30-04/25). 05/20: Patient agreeable to PICC and TPN, switched appetite stimulants (megestrol --> dronabinol), CT scan pending 05/21: 05/20/25 CT abd/pelv demonstrates loculated large left pleural effusion, chest tube placement with IR 05/23: possible washout with TSS this weekend vs next week Problem List[1] Past Medical History[2] Surgical History[3] Allergies: Patient has no known allergies. LABS: Results from last 7 days Lab Units 05/23/2542805/22/2535205/21/2531405/20/2513105/19/2542105/18/2543205/17/25 0003 GLUCOSE mg/dL 177* 164* 116* 128* 132* 134* 123* BUN mg/dL 11 10 11 9 8 6* 8 CREATININE mg/dL 0.43* 0.54* 0.61 0.53* 0.47* 0.54* 0.54* SODIUM mmol/L 134* 136 136 136 136 139 139 POTASSIUM mmol/L 4.2 4.2 4.4 4.6 3.5* 3.9 3.7 CHLORIDE mmol/L 103 105 105 104 106 108* 106 CO2 mmol/L 21* 21* 21* 18* 21* 21* 21* CALCIUM mg/dL 7.9* 7.7* 7.9* 8.0* 7.9* 7.8* 7.7* PHOSPHORUS mg/dL 2.6 3.3 3.3 3.2 2.6 2.5 3.4 MAGNESIUM mg/dL 1.8* 1.9 1.9 2.0 1.7* 2.1 1.7* Results from last 7 days Lab Units 05/23/2542805/22/2535205/21/2531405/20/25 0132 05/19/25 0422 05/18/25 0433 05/17/25 0003 WBC 10*3/uL 13.42* 14.71* 18.72* 18.96* 10.29 9.04 10.73* HEMOGLOBIN g/dL 10.4* 10.6* 11.6 13.1 11.3 10.9* 11.2 HEMATOCRIT % 30.4* 32.3* 34.3 39.1 33.6* 32.1* 33.3* PLATELETS 10*3/uL 517* 444* 419* 479* 380* 355 329 Results from last 7 days Lab Units 05/23/25 0429 05/22/25 0353 05/21/25 0315 05/20/25 0132 05/19/25 0422 05/18/25 0433 05/17/25 0003 ALT U/L 8* 5* 8* 11 14 13 10 AST U/L 16 11 12 21 27 33 25 ALKALINE PHOSPHATASE U/L 73 77 80 94 92 97 100 BILIRUBIN TOTAL mg/dL 0.3 0.3 0.5 0.5 0.3 0.4 0.4 ALBUMIN g/dL 2.1* 2.0* 2.3* 2.7* 2.4* 2.4* 2.3* Nutrition Labs: Lab Results Component Value Date TRIG 119 05/20/2025 BILITOT 0.3 05/23/2025 ALBUMIN 2.1 (L) 05/23/2025 PREALBUMIN 3.3 (L) 05/16/2025 HGBA1C 5.4 12/05/2020 CRP 1.5 12/07/2020 Microbiology Results Procedure Component Value Units Date/Time Blood Culture (Aerobic/Anaerobet Set) [[id number]] Collected: 05/14/25231 Order Status: Completed Specimen: Blood from Wrist, Left Updated: 05/19/25 0601 Culture No growth at day 5 Narrative: Low blood volume submitted, results may be compromised Blood Culture (Aerobic/Anaerobet Set) [[id number]] Collected: 05/14/25 023 Order Status: Completed Specimen: Blood from Wrist, Right Updated: 05/19/25 0551 Culture No growth at day 5 Narrative: Low blood volume submitted, results may be compromised Body Fluid Culture and Gram Stain [[id number]] (Abnormal) (Susceptibility) Collected: 05/14/25 1647 Order Status: Completed Specimen: Body Fluid (specify site): Updated: 05/18/25 1436 Culture Heavy Growth 4+ Streptococcus constellatus Comment: This isolate has been identified using the FDA Approved [email or web address] [place] System The organism value for this result has been updated. These results have been appended to the previously preliminary verified report. Edited result: Previously reported as Streptococcus species on 05/15/2025 at 1553 EST. 1+ Haemophilus parainfluenzae Comment: This isolate has been identified using the FDA Approved [email or web address] [place] System The organism value for this result has been updated. These results have been appended to the previously preliminary verified report. Gram Stain Result Numerous Gram positive cocci in pairs and chains Numerous Gram negative rods Numerous Polymorphonuclear leukocytes Susceptibility Streptococcus constellatus ETEST Penicillin G 0.094 Susceptible Susceptibility Haemophilus parainfluenzae Method Not Specified Beta Lactamase Negative Negative Susceptibility Comments Haemophilus parainfluenzae This organism is predictably susceptible to ampicillin or amoxicillin. Vitals: Visit Vitals BP (!) 154/77 (BP Location: Left arm, Patient Position: Lying) Pulse 101 Temp 36.9 ??C (98.4 ??F) (Oral) Resp 20 [place] Coma Scale Score: 15 Melchor Scale Score: 18 Oxygen Therapy: Supplemental oxygen Skin Integrity: Other (Comment) (L chest tube, old drain site LLQ) Wt Readings from Last 3 Encounters: 05/23/25 68.1 kg (150 lb 2.1 oz) 04/30/25 70.9 kg (156 lb 4.9 oz) 04/23/25 72.5 kg (159 lb 13.3 oz) Current Diet Order: Dietary Orders (From admission, onward) Start Ordered 05/21/25 1501 Adult diet Diet texture: Regular Diet effective now References: IDDSI Diet Texture Guide Question: Diet texture Answer: Regular 05/21/25 1500 05/18/25 1218 Oral nutrition supplements Until discontinued Question Answer Comment Supplement frequency: All meals All meals supplement: Boost Very High Calorie Vanilla Quantity for All Meals of Boost Very High Calorie - Vanilla One 05/18/25 1217 05/17/25 1217 Oral nutrition supplements Until discontinued Question Answer Comment Supplement frequency: Lunch Supplement frequency: Dinner Lunch supplement: Boost Breeze Wild Andersen Quantity for Lunch of Boost Breeze Wild Andersen One Dinner supplement: Boost Breeze Wild Andersen Quantity for Dinner of Boost Breeze Wild Andersen One 05/17/25 1217 Current Medications Current Scheduled Medications[4] Current Continuous Medications[5] Current Anthropometrics: Admit weight: 70.6 kg Height: 162.6 cm (5' 4 ) [place] body weight: 54.7 kg (120 lb 9.5 oz) Adjusted ideal body weight: 60.1 kg (132 lb 6.5 oz) (129%) of IBW Body mass index is 25.77 kg/m??. Adjusted wt: 58.7 kg (if over 125% of IBW) CENTRAL IV Access: PICC (05/20/25) Estimated Nutritional Needs: HBE: 1161 kcal/day Stress Factor: 1.2 - 1.3 Total Calories/day: 1393 - 1626 Protein (amino acids): 1.3 - 1.7 grams/kg Protein (Amino acids): 76.3 - 99.8 grams/day Measured Energy Needs: Respiratory Quotient: 05/23/2025 Plan/Recommendation: labs reviewed, Mg 1.8 - replaced outside TPN bag. Continue goal TPNtonight. GOAL TPN: DEXTROSE: 18% (281 g/day CHO) AMINO ACIDS: 6% (93.6 g/day - 1.59 g/adjusted kg/day Amino acids) @ 65 ml/hr, with 30mg/day thiamine, MVI, and Trace elements Every other day 250ml 20% SMOF lipids 1579 Total kcal/day - 26.9 kcal/adjusted kg/day Replace electrolytes outside of TPN Calcium and/or Phosphorus supplements MUST be in a separate line from the TPN to avoid precipitation Obtain BMP, magnesium, and Phos daily x 3days and then at least twice weekly Obtain LFT and TGLY weekly I have monitored the TPN therapy, including the labs, and have communicated any modifications with the primary medical/surgical team. Continue current TPN formula and lipid regimen as above. I have communicated the TPN plan with the IV room. Thank you, Maria R Lyles, PharmD, [facility] Surgery Clinical Pharmacist Available on Secure Chat [1] Patient Active Problem List Diagnosis CN III palsy, left Pituitary adenoma (CMS/HCC) IPMN (intraductal papillary mucinous neoplasm) Abnormal blood electrolyte level HLD (hyperlipidemia) History of CVA (cerebrovascular accident) Leukocytosis On total parenteral nutrition (TPN) Peripancreatic fluid collection Abdominal pain [2] Past Medical History: Diagnosis Date Cranial nerve III palsy High cholesterol Pancreatic cyst Unspecified injury of unspecified wrist, hand and finger(s), initial encounter Hand injury [3] Past Surgical History: Procedure Laterality Date CYSTOSCOPY ENDOSCOPY EXTERNAL - ECG EXTERNAL - ECG [4] acetaminophen, 1,000 mg, Oral, q8h aspirin, 81 mg, Oral, Daily enoxaparin, 40 mg, Subcutaneous, Daily fat emulsion fish/plant based, 250 mL, Intravenous, Every other day insulin regular, 3 Units, Subcutaneous, q6h KHUSHI insulin regular, 0-10 Units, Subcutaneous, q6h KHUSHI lidocaine, 1 patch, Apply externally, q24h methocarbamol, 1,000 mg, Oral, 4x daily mupirocin, 1 Application, Each Nostril, BID pantoprazole, 40 mg, Oral, Daily piperacillin-tazobactam, 3.375 g, Intravenous, q6h sodium chloride, 10 mL, Intravenous, q12h sodium chloride, 10 mL, Intravenous, q12h [5] Adult 2-in-1 TPN, 65 mL/hr, Last Rate: 65 mL/hr (05/23/25 0623) * Care Plan - Sebastian Paz RN - 05/23/2025 10:06 AM EST Problem: Adult Inpatient Plan of Care Goal: Plan of Care Review Outcome: Ongoing, Progressing Flowsheets (Taken 05/23/2025 1004) Progress: no change Plan of Care Reviewed With: patient spouse Goal: Patient-Specific Goal (Individualized) Outcome: Ongoing, Progressing Flowsheets (Taken 05/23/2025 0800) Patient/Family-Specific Goals (Include Timeframe): pt will report adequate pain control this shift Individualized Care Needs: pain management Anxieties, Fears or Concerns: pain Goal: Absence of Hospital-Acquired Illness or Injury Outcome: Ongoing, Progressing Intervention: Identify and Manage Fall Risk Flowsheets (Taken 05/23/2025 0800) Safety Promotion/Fall Prevention: activity supervised assistive device/personal items within reach clutter-free environment maintained fall prevention program maintained nonskid shoes/slippers when out of bed room organization consistent safety round/check completed toileting scheduled lighting adjusted Intervention: Prevent Skin Injury Flowsheets (Taken 05/23/2025 100) Body Position: weight shifting Skin Protection: incontinence pads utilized Intervention: Prevent and Manage VTE (Venous Thromboembolism) Risk Flowsheets (Taken 05/23/2025 100) VTE Prevention/Management: medication Intervention: Prevent Infection Flowsheets (Taken 05/23/2025 100) Infection Prevention: hand hygiene promoted Goal: Optimal Comfort and Wellbeing Outcome: Ongoing, Progressing Intervention: Monitor Pain and Promote Comfort Flowsheets (Taken 05/23/2025 100) Pain Management Interventions: quiet environment facilitated Intervention: Provide Person-Centered Care Flowsheets (Taken 05/23/2025 100) Trust Relationship/Rapport: care explained questions encouraged Problem: Pain Acute Goal: Optimal Pain Control and Function Outcome: Ongoing, Progressing Intervention: Optimize Psychosocial Wellbeing Flowsheets (Taken 05/23/2025 100) Supportive Measures: active listening utilized relaxation techniques promoted Diversional Activities: television Spiritual Activities Assistance: personal rituals encouraged Intervention: Develop Pain Management Plan Flowsheets (Taken 05/23/20251003) Pain Management Interventions: quiet environment facilitated Intervention: Prevent or Manage Pain Flowsheets (Taken 05/23/2025 100) Sensory Stimulation Regulation: quiet environment promoted Complementary Therapy: essential oils utilized Bowel Elimination Promotion: ambulation promoted Sleep/Rest Enhancement: natural light exposure provided Medication Review/Management: medications reviewed Problem: Fall Injury Risk Goal: Absence of Fall and Fall-Related Injury Outcome: Ongoing, Progressing Intervention: Identify and Manage Contributors Flowsheets (Taken 05/23/2025 100) Medication Review/Management: medications reviewed Self-Care Promotion: independence encouraged Intervention: Promote Injury-Free Environment Flowsheets (Taken 05/23/2025 0800) Safety Promotion/Fall Prevention: activity supervised assistive device/personal items within reach clutter-free environment maintained fall prevention program maintained nonskid shoes/slippers when out of bed room organization consistent safety round/check completed toileting scheduled lighting adjusted Problem: Skin Injury Risk Increased Goal: Skin Health and Integrity Outcome: Ongoing, Progressing Intervention: Optimize Skin Protection Flowsheets (Taken 05/23/2025 100) Activity Management: activity adjusted per tolerance activity encouraged Pressure Reduction Techniques: frequent weight shift encouraged Pressure Reduction Devices: positioning supports utilized Skin Protection: incontinence pads utilized Head of Bed (HOB) Positioning: HOB elevated Intervention: Promote and Optimize Oral Intake Flowsheets (Taken 05/23/2025 1004) Oral Nutrition Promotion: physical activity promoted Nutrition Interventions: meal set-up provided Problem: Infection Goal: Absence of Infection Signs and Symptoms Outcome: Ongoing, Progressing Intervention: Prevent or Manage Infection Flowsheets (Taken 05/23/2025 1004) Infection Management: aseptic technique maintained Fever Reduction/Comfort Measures: lightweight bedding lightweight clothing Isolation Precautions: protective * Progress Notes - Luisito Howard MD - 05/23/2025 9:46 AM EST Images from the original note were not included. Department of Surgery Division of Surgical Oncology Surgery Progress Note 05/23/25 [place] Subjective Subjective: HPI 69F with history of IPMN s/p distal panc/spleen c/b post-op pancreatic leak requiring extended period with surgical drain in place (removed on 04/23). Presented with worsening abdominal pain, fever/chills and found to have peripancreatic fluid collection. 03/20/25: distal panc/spleen [Monica] Interval: Chest tube placed 2 days ago, continues to have significant pleural effusion. TPN, Regular diet. PO intake 360 ml. Encourage OOB ambulation. Continue watchful waiting of pleural effusion, thoracic surgery plan for washout this weekend vs next week. I/O: UOP 550+ x1, Bmx0, Chest tube 700 Edited by: Luisito Howard MD at 05/23/2025 0946 Review of Systems: Relevant review of systems was obtained as able and is negative unless stated above in HPI. Objective Objective: Vital signs: Vitals: 05/23/25 0720 BP: (!) 154/77 Pulse: 101 Resp: Temp: 36.9 ??C (98.4 ??F) SpO2: Physical Exam: Physical Exam Vitals reviewed. Constitutional: General: She is not in acute distress. Appearance: She is ill-appearing. HENT: Head: Normocephalic and atraumatic. Nose: Nose normal. Eyes: General: No scleral icterus. Extraocular Movements: Extraocular movements intact. Conjunctiva/sclera: Conjunctivae normal. Pulmonary: Effort: Pulmonary effort is normal. No respiratory distress. Comments: +Left Chest tube Abdominal: General: There is no distension. Palpations: Abdomen is soft. Tenderness: There is abdominal tenderness. There is no guarding or rebound. Musculoskeletal: General: No swelling. Normal range of motion. Cervical back: Normal range of motion. Skin: General: Skin is warm and dry. Coloration: Skin is not jaundiced. Neurological: General: No focal deficit present. Mental Status: She is alert and oriented to person, place, and time. Psychiatric: Mood and Affect: Mood normal. Behavior: Behavior normal. Thought Content: Thought content normal. Judgment: Judgment normal. Intake/Output Summary (Last 24 hours) at 05/23/2025 0946 Last data filed at 05/23/2025 0623 Gross per 24 hour Intake 3974.53 ml Output 990 ml Net 2984.53 ml Lines/Drains/Tubes: Patient Lines/Drains/Airways Status Active Airway None Output by Drain (mL) 05/21/25 0700 - 05/21/25 1859 05/21/25 1900 - 05/22/25 0659 05/22/25 0700 - 05/22/25 1859 05/22/25 1900 - 05/23/25 0659 05/23/25 0700 - 05/23/25 0946 Requested LDAs do not have output data documented. Labs in last 18 hours: CBC WBC 13.42 (H) Hb 10.4 (L) Plt 517 (H) Hct 30.4 (L) ANC ?? INR ??, PTT ??, Anti-Xa ?? MCV 87 BMP Na 134 (L) Cl 103 BUN 11 Glu 177 (H) K 4.2 Co2 21 (L) Cr 0.43 (L) Ca 7.9 (L) iCa ?? Mg 1.8 (L), Phos 2.6 Lactate ?? LFT AST 16 AlkPhos 73 T Prot 6.0 (L) ALK 8 (L) Bili 0.3 Alb ?? D.Bili ?? Lab Trends: H/H Results from last 7 days Lab Units 05/23/2542805/22/25 0353 05/21/25 0315 HEMOGLOBIN g/dL 10.4* 10.6* 11.6 HEMATOCRIT % 30.4* 32.3* 34.3 INR Cr Results from last 7 days Lab Units 05/23/2542825 0353 05/21/25 0315 CREATININE mg/dL 0.43* 0.54* 0.61 Lactate No lab exists for component: LACTTEVEN Radiographic Interpretation: I have reviewed the imaging above and agree with the radiologist interpretation. XR Chest 1 View Result Date: 05/23/2025 Stable exam. CRITICAL RESULT: No. COMMUNICATION: Per this written report Drafted by Heriberto Ivy MD on 05/23/2025 7:57 AM Final report signed by Heriberto Ivy MD on 05/23/2025 7:[address] Chest w IV Contrast Result Date: 05/22/2025 Large left pleural effusion and left lower lobe atelectasis. Trace right pleural effusion and mild right basal atelectatic changes. Fluid-filled structure along the left lower lobe may represent a loculated pleural fluid along the left major fissure versus pulmonary cyst. CRITICAL RESULT: No. COMMUNICATION: Per this written report. Drafted by Poncho Velez MD on 05/22/2025 1:33 PM Final report signed by Poncho Velez MD on 05/22/2025 2:54 PM Medications reviewed. Vital signs reviewed. Labs reviewed. Assessment/Plan Assessment and Plan: Medical Problems Problem List * (Principal) Peripancreatic fluid collection CN III palsy, left Overview Addendum 03/31/2025 7:55 AM by Katlyn Hopkins APRN Hx of Abnormal blood electrolyte level Overview Signed 03/21/2025 9:54 AM by Katlyn Hopkins APRN - daily/PRN CMP, Mg, Phos - replete as appropriate - goal: K>4, phos>3, mg>2 HLD (hyperlipidemia) Overview Addendum 03/28/2025 8:24 AM by Katlyn Hopkins APRN Continue statin History of CVA (cerebrovascular accident) Overview Signed 03/21/2025 9:58 AM by Katlyn Hopkins APRN 11/2020 CT Head showed old left occipital & left temporal infarcts. On ASA 81mg daily. Leukocytosis Overview Addendum 04/04/2025 9:46 AM by Katlyn Hopkins APRN Down trending Daily CBC Abx: fidaxomicin (changed to Vancomycin due to cost on day of dc (03/30-04/09) levofloxacin/flagyl (03/30-04/12) Zosyn 03/29-03/30 zosyn [03/20-] x48h post-op Cx: GI panel/C. Diff: +GDH- Toxin, all other negative (03/30) On total parenteral nutrition (TPN) Overview Addendum 04/04/2025 9:18 AM by Katlyn Hopkins PETROGRAPHER - initiated on 03/30/25, continue on dc -daily CMP,mg,phos -weekly pre-albumin, triglycerides Abdominal pain Pituitary adenoma (CMS/HCC) Overview Deleted 03/21/2025 10:00 AM by Katlyn Hopkins APRN IPMN (intraductal papillary mucinous neoplasm) Overview Addendum 04/04/2025 9:18 AM by Katlyn Hopkins APRN 03/20/2025:ex-lap, SAMIA, distal pancreatectomy w/splenectomy, celiac axis node dissection [Monica] Keep DARIAN bulb on dc Present on Admission: Peripancreatic fluid collection Plan: [ ] schedule splenectomy vaccines [ ] AM CXR Daily - IR chest tube 05/21, f/u final culture, GS negative - On zosyn 05/20 - ? -Thoracic plans for wash out next week vs weekend if no improvement - States slightly improved appetite with dronabinol, still poor PO - body fluid culture growing: Streptococcus constellatus, H. Parainfluenzae. Edited by: Luisito Howard MD at 05/23/2025 7703 Dispo: Continue Current Level of Care Luisito Howard MD Cosigned by Mookie Sanford MD at 05/27/2025 6:45 PM EST Associated attestation - Mookie Sanford MD - 05/27/2025 6:45 PM EST I saw and evaluated the patient with the resident/fellow. I discussed the case with the resident/fellow and agree with the findings and plan as documented. * Care Plan - Rylie Valenitn RN - 05/23/2025 2:43 AM EST Problem: Adult Inpatient Plan of Care Goal: Plan of Care Review Outcome: Ongoing, Progressing Flowsheets (Taken 05/23/2025239) Progress: no change Outcome Evaluation: Patient does not wish to discuss plan of care Plan of Care Reviewed With: patient spouse Goal: Patient-Specific Goal (Individualized) Outcome: Ongoing, Progressing Goal: Absence of Hospital-Acquired Illness or Injury Outcome: Ongoing, Progressing Intervention: Identify and Manage Fall Risk Flowsheets (Taken 05/23/2025 024) Safety Promotion/Fall Prevention: activity supervised assistive device/personal items within reach clutter-free environment maintained nonskid shoes/slippers when out of bed room organization consistent Goal: Optimal Comfort and Wellbeing Outcome: Ongoing, Progressing Intervention: Monitor Pain and Promote Comfort Flowsheets (Taken 05/23/2025239) Pain Management Interventions: medication (see MAR) emotional support pillow support provided position adjusted quiet environment facilitated relaxation techniques promoted rest Problem: Pain Acute Goal: Optimal Pain Control and Function Outcome: Ongoing, Progressing Intervention: Develop Pain Management Plan Flowsheets (Taken 05/23/2025239) Pain Management Interventions: medication (see MAR) emotional support pillow support provided position adjusted quiet environment facilitated relaxation techniques promoted rest Problem: Fall Injury Risk Goal: Absence of Fall and Fall-Related Injury Outcome: Ongoing, Progressing Intervention: Identify and Manage Contributors Flowsheets (Taken 05/23/2025239) Medication Review/Management: medications reviewed Self-Care Promotion: independence encouraged Problem: Skin Injury Risk Increased Goal: Skin Health and Integrity Outcome: Ongoing, Progressing Intervention: Optimize Skin Protection Flowsheets (Taken 05/23/2025 024) Activity Management: activity adjusted per tolerance Pressure Reduction Techniques: frequent weight shift encouraged Pressure Reduction Devices: pressure-redistributing mattress utilized Skin Protection: incontinence pads utilized Head of Bed (HOB) Positioning: HOB elevated Problem: Infection Goal: Absence of Infection Signs and Symptoms Outcome: Ongoing, Progressing Intervention: Prevent or Manage Infection Flowsheets (Taken 05/23/2025239) Infection Management: aseptic technique maintained Fever Reduction/Comfort Measures: lightweight bedding lightweight clothing Isolation Precautions: precautions maintained * Progress Notes - Maria R Lyles, PharmD - 05/22/2025 12:24 PM EST Images from the original note were not included. Pharmacist TPN Progress Note Patient: Dot Dale Age: 69 y.o. Admission Date: [id number] Subjective/Objective/Hospital Course: 69 y.o. 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 Patient has been on TPN previously (~03/30-04/25). 05/20: Patient agreeable to PICC and TPN, switched appetite stimulants (megestrol --> dronabinol), CT scan pending 05/21: 05/20/25 CT abd/pelv demonstrates loculated large left pleural effusion, chest tube placement with IR Problem List[1] Past Medical History[2] Surgical History[3] Allergies: Patient has no known allergies. LABS: Results from last 7 days Lab Units 05/22/25 0353 05/21/25 0315 05/20/25 0132 05/19/25 0422 05/18/25 0433 05/17/25 0003 05/16/25 0020 GLUCOSE mg/dL 164* 116* 128* 132* 134* 123* 110* BUN mg/dL 10 11 9 8 6* 8 11 CREATININE mg/dL 0.54* 0.61 0.53* 0.47* 0.54* 0.54* 0.55* SODIUM mmol/L 136 136 136 136 139 139 137 POTASSIUM mmol/L 4.2 4.4 4.6 3.5* 3.9 3.7 3.2* CHLORIDE mmol/L 105 105 104 106 108* 106 104 CO2 mmol/L 21* 21* 18* 21* 21* 21* 25 CALCIUM mg/dL 7.7* 7.9* 8.0* 7.9* 7.8* 7.7* 7.7* PHOSPHORUS mg/dL 3.3 3.3 3.2 2.6 2.5 3.4 1.8* MAGNESIUM mg/dL 1.9 1.9 2.0 1.7* 2.1 1.7* 2.0 Results from last 7 days Lab Units 05/22/25 0353 05/21/2531405/20/252 05/19/252 05/18/253 05/17/25 0003 05/16/25 0020 WBC 10*3/uL 14.71* 18.72* 18.96* 10.29 9.04 10.73* 14.66* HEMOGLOBIN g/dL 10.6* 11.6 13.1 11.3 10.9* 11.2 11.0* HEMATOCRIT % 32.3* 34.3 39.1 33.6* 32.1* 33.3* 33.1* PLATELETS 10*3/uL 444* 419* 479* 380* 355 329 301 Results from last 7 days Lab Units 05/22/2535205/21/2531405/20/2513105/19/2542105/18/253 05/17/25 0003 05/16/25 0020 ALT U/L 5* 8* 11 14 13 10 16 AST U/L 11 12 21 27 33 25 30 ALKALINE PHOSPHATASE U/L 77 80 94 92 97 100 106 BILIRUBIN TOTAL mg/dL 0.3 0.5 0.5 0.3 0.4 0.4 0.5 ALBUMIN g/dL 2.0* 2.3* 2.7* 2.4* 2.4* 2.3* 2.4* Nutrition Labs: Lab Results Component Value Date TRIG 119 05/20/2025 BILITOT 0.3 05/22/2025 ALBUMIN 2.0 (L) 05/22/2025 PREALBUMIN 3.3 (L) 05/16/2025 HGBA1C 5.4 12/05/2020 CRP 1.5 12/07/2020 Microbiology Results Procedure Component Value Units Date/Time Blood Culture (Aerobic/Anaerobet Set) [[id number]] Collected: 05/14/25231 Order Status: Completed Specimen: Blood from Wrist, Left Updated: 05/19/25600 Culture No growth at day 5 Narrative: Low blood volume submitted, results may be compromised Blood Culture (Aerobic/Anaerobet Set) [[id number]] Collected: 05/14/25231 Order Status: Completed Specimen: Blood from Wrist, Right Updated: 05/19/25 0551 Culture No growth at day 5 Narrative: Low blood volume submitted, results may be compromised Body Fluid Culture and Gram Stain [[id number]] (Abnormal) (Susceptibility) Collected: 05/14/25 1647 Order Status: Completed Specimen: Body Fluid (specify site): Updated: 05/18/25 1436 Culture Heavy Growth 4+ Streptococcus constellatus Comment: This isolate has been identified using the FDA Approved [employer] System The organism value for this result has been updated. These results have been appended to the previously preliminary verified report. Edited result: Previously reported as Streptococcus species on 05/15/2025 at 1553 EST. 1+ Haemophilus parainfluenzae Comment: This isolate has been identified using the FDA Approved [employer] [place] System The organism value for this result has been updated. These results have been appended to the previously preliminary verified report. Gram Stain Result Numerous Gram positive cocci in pairs and chains Numerous Gram negative rods Numerous Polymorphonuclear leukocytes Susceptibility Streptococcus constellatus ETEST Penicillin G 0.094 Susceptible Susceptibility Haemophilus parainfluenzae Method Not Specified Beta Lactamase Negative Negative Susceptibility Comments Haemophilus parainfluenzae This organism is predictably susceptible to ampicillin or amoxicillin. Vitals: Visit Vitals BP 115/66 (BP Location: Left arm, Patient Position: Lying) Pulse 82 Temp 36.7 ??C (98.1 ??F) (Oral) Resp 19 [place] Coma Scale Score: 15 Mel[place] Scale Score: 17 Oxygen Therapy: Supplemental oxygen Skin Integrity: Other (Comment) (LLQ old drain site, L flank chest tube) Wt Readings from Last 3 Encounters: 05/22/25 71 kg (156 lb 8.4 oz) 04/30/25 70.9 kg (156 lb 4.9 oz) 04/23/25 72.5 kg (159 lb 13.3 oz) Current Diet Order: Dietary Orders (From admission, onward) Start Ordered 05/21/25 1501 Adult diet Diet texture: Regular Diet effective now References: IDDSI Diet Texture Guide Question: Diet texture Answer: Regular 05/21/25 1500 05/18/25 1218 Oral nutrition supplements Until discontinued Question Answer Comment Supplement frequency: All meals All meals supplement: Boost Very High Calorie Vanilla Quantity for All Meals of Boost Very High Calorie - Vanilla One 05/18/25 1217 05/17/25 1217 Oral nutrition supplements Until discontinued Question Answer Comment Supplement frequency: Lunch Supplement frequency: Dinner Lunch supplement: Boost Breeze Wild Andersen Quantity for Lunch of Boost Breeze Wild Andersen One Dinner supplement: Boost Breeze Wild Andersen Quantity for Dinner of Boost Kam Wild Andersen One 05/17/25 1217 Current Medications Current Scheduled Medications[4] Current Continuous Medications[5] Current Anthropometrics: Admit weight: 70.6 kg Height: 162.6 cm (5' 4 ) [place] body weight: 54.7 kg (120 lb 9.5 oz) Adjusted ideal body weight: 61.2 kg (134 lb 15.4 oz) (129%) of IBW Body mass index is 26.87 kg/m??. Adjusted wt: 58.7 kg (if over 125% of IBW) CENTRAL IV Access: PICC (05/20/25) Estimated Nutritional Needs: HBE: 1161 kcal/day Stress Factor: 1.2 - 1.3 Total Calories/day: 1393 - 1626 Protein (amino acids): 1.3 - 1.7 grams/kg Protein (Amino acids): 76.3 - 99.8 grams/day Measured Energy Needs: Respiratory Quotient: 05/22/2025 Plan/Recommendation: labs reviewed and WNL. Advance to goal TPN tonight. GOAL TPN: DEXTROSE: 18% (281 g/day CHO) AMINO ACIDS: 6% (93.6 g/day - 1.59 g/adjusted kg/day Amino acids) @ 65 ml/hr, with 30mg/day thiamine, MVI, and Trace elements Every other day 250ml 20% SMOF lipids 1579 Total kcal/day - 26.9 kcal/adjusted kg/day Replace electrolytes outside of TPN Calcium and/or Phosphorus supplements MUST be in a separate line from the TPN to avoid precipitation Obtain BMP, magnesium, and Phos daily x 3days and then at least twice weekly Obtain LFT and TGLY weekly I have monitored the TPN therapy, including the labs, and have communicated any modifications with the primary medical/surgical team. Continue current TPN formula and lipid regimen as above. I have communicated the TPN plan with the IV room. Thank you, Maria R Lyles, PharmD, [facility] Surgery Clinical Pharmacist Available on Secure Chat [1] Patient Active Problem List Diagnosis CN III palsy, left Pituitary adenoma (CMS/HCC) IPMN (intraductal papillary mucinous neoplasm) Abnormal blood electrolyte level HLD (hyperlipidemia) History of CVA (cerebrovascular accident) Leukocytosis On total parenteral nutrition (TPN) Peripancreatic fluid collection Abdominal pain [2] Past Medical History: Diagnosis Date Cranial nerve III palsy High cholesterol Pancreatic cyst Unspecified injury of unspecified wrist, hand and finger(s), initial encounter Hand injury [3] Past Surgical History: Procedure Laterality Date CYSTOSCOPY ENDOSCOPY EXTERNAL - ECG EXTERNAL - ECG [4] acetaminophen, 1,000 mg, Oral, q8h aspirin, 81 mg, Oral, Daily dronabinol, 2.5 mg, Oral, BID AC enoxaparin, 40 mg, Subcutaneous, Daily fat emulsion fish/plant based, 250 mL, Intravenous, Every other day insulin regular, 0-10 Units, Subcutaneous, q6h KHUSHI lidocaine, 1 patch, Apply externally, q24h methocarbamol, 1,000 mg, Oral, 4x daily mupirocin, 1 Application, Each Nostril, BID pantoprazole, 40 mg, Oral, Daily piperacillin-tazobactam, 3.375 g, Intravenous, q6h sodium chloride, 10 mL, Intravenous, q12h sodium chloride, 10 mL, Intravenous, q12h [5] Adult 2-in-1 TPN, 65 mL/hr, Last Rate: 65 mL/hr (05/21/252033) * Care Plan - Ele Estrada RN - 05/22/2025 10:38 AM EST Problem: Adult Inpatient Plan of Care Goal: Plan of Care Review Outcome: Ongoing, Progressing Flowsheets (Taken 05/22/2025 1032) Progress: no change Outcome Evaluation: pt unwilling to verbalize care plan due to frustration Plan of Care Reviewed With: patient spouse Goal: Patient-Specific Goal (Individualized) Outcome: Ongoing, Progressing Flowsheets (Taken 05/22/2025 1032) Patient/Family-Specific Goals (Include Timeframe): pt will use call light for assistance on day shift, pt will remain free from falls/injuries on day shift, pt will get CT on day shift Individualized Care Needs: medication administration Anxieties, Fears or Concerns: tubes and wires Goal: Absence of Hospital-Acquired Illness or Injury Outcome: Ongoing, Progressing Intervention: Identify and Manage Fall Risk Flowsheets (Taken 05/22/20251031) Safety Promotion/Fall Prevention: activity supervised clutter-free environment maintained nonskid shoes/slippers when out of bed safety round/check completed Intervention: Prevent Skin Injury Flowsheets (Taken 05/22/20251031) Body Position: weight shifting Skin Protection: incontinence pads utilized Intervention: Prevent and Manage VTE (Venous Thromboembolism) Risk Flowsheets (Taken 05/22/20251031) VTE Prevention/Management: bilateral lower extremity SCDs (sequential compression devices) off medication Intervention: Prevent Infection Flowsheets (Taken 05/22/20251031) Infection Prevention: hand hygiene promoted single patient room provided Goal: Optimal Comfort and Wellbeing Outcome: Ongoing, Progressing Intervention: Monitor Pain and Promote Comfort Flowsheets (Taken 05/22/20251031) Pain Management Interventions: quiet environment facilitated relaxation techniques promoted Intervention: Provide Person-Centered Care Flowsheets (Taken 05/22/20251031) Trust Relationship/Rapport: care explained choices provided questions answered questions encouraged Problem: Pain Acute Goal: Optimal Pain Control and Function Outcome: Ongoing, Progressing Intervention: Optimize Psychosocial Wellbeing Flowsheets (Taken 05/22/20251031) Supportive Measures: goal-setting facilitated positive reinforcement provided relaxation techniques promoted self-care encouraged Diversional Activities: smartphone television Spiritual Activities Assistance: hope instilled personal rituals encouraged Intervention: Develop Pain Management Plan Flowsheets (Taken 05/22/20251031) Pain Management Interventions: quiet environment facilitated relaxation techniques promoted Intervention: Prevent or Manage Pain Flowsheets (Taken 05/22/20251031) Sensory Stimulation Regulation: quiet environment promoted visitors limited Complementary Therapy: essential oils utilized Bowel Elimination Promotion: ambulation promoted Sleep/Rest Enhancement: relaxation techniques promoted Medication Review/Management: medications reviewed Problem: Fall Injury Risk Goal: Absence of Fall and Fall-Related Injury Outcome: Ongoing, Progressing Intervention: Identify and Manage Contributors Flowsheets (Taken 05/22/20251031) Medication Review/Management: medications reviewed Self-Care Promotion: independence encouraged Intervention: Promote Injury-Free Environment Flowsheets (Taken 05/22/2025 1032) Safety Promotion/Fall Prevention: activity supervised clutter-free environment maintained nonskid shoes/slippers when out of bed safety round/check completed Problem: Skin Injury Risk Increased Goal: Skin Health and Integrity Outcome: Ongoing, Progressing Intervention: Optimize Skin Protection Flowsheets (Taken 05/22/2025 103) Activity Management: activity adjusted per tolerance Pressure Reduction Techniques: frequent weight shift encouraged Pressure Reduction Devices: pressure-redistributing mattress utilized Skin Protection: incontinence pads utilized Head of Bed (HOB) Positioning: HOB elevated Intervention: Promote and Optimize Oral Intake Flowsheets (Taken 05/22/2025 103) Oral Nutrition Promotion: physical activity promoted Nutrition Interventions: meal set-up provided Problem: Infection Goal: Absence of Infection Signs and Symptoms Outcome: Ongoing, Progressing Intervention: Prevent or Manage Infection Flowsheets (Taken 05/22/2025 103) Infection Management: aseptic technique maintained Fever Reduction/Comfort Measures: lightweight bedding lightweight clothing Isolation Precautions: precautions maintained protective * Progress Notes - Luisito Howard MD - 05/22/2025 10:12 AM EST Images from the original note were not included. Department of Surgery Division of Surgical Oncology Surgery Progress Note 05/22/25 Dot Dale Subjective Subjective: HPI 69F with history of IPMN s/p distal panc/spleen c/b post-op pancreatic leak requiring extended period with surgical drain in place (removed on 04/23). Presented with worsening abdominal pain, fever/chills and found to have peripancreatic fluid collection. 03/20/25: distal panc/spleen [Monica] Interval: Chest tube placed yesterday, continues to have significant pleural effusion. TPN, Regulardiet. PO intake 360 ml. I/O: UOP 650+ x1, BMx0 Edited by: Shari Leslie MD at 05/22/2025 1006 Review of Systems: Relevant review of systems was obtained as able and is negative unless stated above in HPI. Objective Objective: Vital signs: Vitals: 05/22/25 0813 BP: 128/75 Pulse: 92 Resp: Temp: 36.5 ??C (97.7 ??F) SpO2: 93% Physical Exam: Physical Exam Vitals reviewed. Constitutional: General: She is not in acute distress. Appearance: She is ill-appearing. HENT: Head: Normocephalic and atraumatic. Nose: Nose normal. Eyes: General: No scleral icterus. Extraocular Movements: Extraocular movements intact. Conjunctiva/sclera: Conjunctivae normal. Pulmonary: Effort: Pulmonary effort is normal. No respiratory distress. Comments: +Left Chest tube Abdominal: General: There is no distension. Palpations: Abdomen is soft. Tenderness: There is abdominal tenderness. There is no guarding or rebound. Musculoskeletal: General: No swelling. Normal range of motion. Cervical back: Normal range of motion. Skin: General: Skin is warm and dry. Coloration: Skin is not jaundiced. Neurological: General: No focal deficit present. Mental Status: She is alert and oriented to person, place, and time. Psychiatric: Mood and Affect: Mood normal. Behavior: Behavior normal. Thought Content: Thought content normal. Judgment: Judgment normal. Intake/Output Summary (Last 24 hours) at 05/22/2025 1015 Last data filed at 05/22/2025 0400 Gross per 24 hour Intake 360 ml Output 1010 ml Net -650 ml Lines/Drains/Tubes: Patient Lines/Drains/Airways Status Active Airway None Output by Drain (mL) 05/20/25 0700 - 05/20/25 1859 05/20/25 1900 - 05/21/25 0659 05/21/25 0700 - 05/21/25 1859 05/21/25 1900 - 05/22/25 0659 05/22/25 0700 - 05/22/25 1015 Requested LDAs do not have output data documented. Labs in last 18 hours: CBC WBC 14.71 (H) Hb 10.6 (L) Plt 444 (H) Hct 32.3 (L) ANC ?? INR ??, PTT ??, Anti-Xa ?? MCV 89 BMP Na 136 Cl 105 BUN 10 Glu 164 (H) K 4.2 Co2 21 (L) Cr 0.54 (L) Ca 7.7 (L) iCa ?? Mg 1.9, Phos 3.3 Lactate ?? LFT AST 11 AlkPhos 77 T Prot 5.8 (L) ALK 5 (L) Bili 0.3 Alb ?? D.Bili ?? Lab Trends: H/H Results from last 7 days Lab Units 05/22/25 0353 05/21/255 05/20/25 0132 HEMOGLOBIN g/dL 10.6* 11.6 13.1 HEMATOCRIT % 32.3* 34.3 39.1 INR Cr Results from last 7 days Lab Units 05/22/25 0353 05/21/255 05/20/25 0132 CREATININE mg/dL 0.54* 0.61 0.53* Lactate No lab exists for component: LACTTEVEN Radiographic Interpretation: I have reviewed the imaging above and agree with the radiologist interpretation. CT Guided Chest Tube Left Result Date: 05/21/[address]-guided left-sided 10 [place] chest tube placement. PLAN: -Chest tube maintenance per primary team. -Chest radiograph to be obtained 1 hour post procedure. -Apply dry dressing around siteweekly or PRN if soiled or wet. Clean site with saline as needed. Secure with tube securement device to prevent inadvertent removal of drain whether the drain is sutured in or not. CRITICAL RESULT: No. COMMUNICATION: Per this written report. By electronically signing this report, I, the attending physician, attest that I was present for the entire procedure(s) and agree with the final edited report. Drafted by Nasima Sequeira MD on 05/21/2025 5:59 PM Final report signed by Nasima Sequeira MD on 05/21/2025 6:07 PM XR Chest 1 View Result Date: 05/21/2025 Chest tube overlies the left lung base. No pneumothorax. Large loculated left pleural effusion withassociated atelectasis. CRITICAL RESULT: No. COMMUNICATION: Per this written report. By electronically signing this report, I, the attending physician, attest that I have personally reviewed the images/data for the above examination(s) and agree with the final edited report. Drafted by Justo Weaver III, MD on 05/21/2025 2:26 PM Final report signed by Heriberto Ivy MD on 05/21/2025 2:50 PM Medications reviewed. Vital signs reviewed. Labs reviewed. Assessment/Plan Assessment and Plan: Medical Problems Problem List * (Principal) Peripancreatic fluid collection CN III palsy, left Overview Addendum 03/31/2025 7:55 AM by Katlyn Hopkins APRN Hx of Abnormal blood electrolyte level Overview Signed 03/21/2025 9:54 AM by Katlyn Hopkins APRN - daily/PRN CMP, Mg, Phos - replete as appropriate - goal: K>4, phos>3, mg>2 HLD (hyperlipidemia) Overview Addendum 03/28/2025 8:24 AM by Katlyn Hopkins APRN Continue statin History of CVA (cerebrovascular accident) Overview Signed 03/21/2025 9:58 AM by Katlyn Hopkins APRN 11/2020 CT Head showed old left occipital & left temporal infarcts. On ASA 81mg daily. Leukocytosis Overview Addendum 04/04/2025 9:46 AM by Katlyn Hopkins APRN Down trending Daily CBC Abx: fidaxomicin (changed to Vancomycin due to cost on day of dc (03/30-04/09) levofloxacin/flagyl (03/30-04/12) Zosyn 03/29-03/30 zosyn [03/20-] x48h post-op Cx: GI panel/C. Diff: +GDH- Toxin, all other negative (03/30) On total parenteral nutrition (TPN) Overview Addendum 04/04/2025 9:18 AM by Katlyn Hopkins APRN - initiated on 03/30/25, continue on dc -daily CMP,mg,phos -weekly pre-albumin, triglycerides Abdominal pain Pituitary adenoma (CMS/HCC) Overview Deleted 03/21/2025 10:00 AM by Katlyn Hopkins APRN IPMN (intraductal papillary mucinous neoplasm) Overview Addendum 04/04/2025 9:18 AM by Katlyn Hopkins APRN 03/20/2025:ex-lap, SAMIA, distal pancreatectomy w/splenectomy, celiac axis node dissection [Monica] Keep DARIAN bulb on dc Present on Admission: Peripancreatic fluid collection Plan: [ ] schedule splenectomy vaccines [ ] F/u CT chest [ ] F/u thoracic plans [ ] AM CXR - IR chest tube 05/21, f/u culture, GS negative - CT Chest, Thoracic consult -Thoracic plans for wash out next week if no improvement - FU appetite- changed megace to dronabinol due to VTE risk - body fluid culture growing: Streptococcus constellatus, H. Parainfluenzae. Edited by: Luisito Howard MD at 05/22/2025 1018 Dispo: Continue Current Level of Care Luisito Howard MD Cosigned by Lokesh Anderson MD at 05/26/2025 9:50 AM EST Associated attestation - Lokesh Anderson MD - 05/26/2025 9:50 AM EST Signature only. * Consults - Jayesh Simon - 05/22/2025 10:09 AM EST Images from the original note were not included. [facility] Department of Surgery Division of Thoracic Surgery History & Physical NoteReason For Consult Reason for Consult: Pleural effusion resistant to CT Requesting Service: Surgical Oncology Requested Date/Time: 05/22/25 0937 History Of Present Illness Dot Dale is a 69 y.o. female with PMH of IPMN s/p distal panc/spleen c/b pancreatic leak s/p surgical drain (removed on 04/23) with worsening abdominal pain, fever/chills presenting with a pleuraleffusion resistant to chest tube drainage placed on 05/21 with IR. Patient continues to endorse L flank pain radiating to the abdomen with thick translucent yellow drainage from the CT. WBC of 14.7, afebrile with a Hgb of 10.6, SpO2 93% on RA. Medical/Surgical/Social/Family History Past Medical History[1] Surgical History[2] Social History[3] Family History[4] Allergies Patient has no known allergies. Medications Current Medications[5] Review of Systems Relevant review of systems was obtained as able and is negative unless stated above in HPI. Vitals Temp: [36.3 ??C (97.3 ??F)-37.5 ??C (99.5 ??F)] 36.5 ??C (97.7 ??F) Heart Rate: [80-93] 92 Resp: [15-22] 19 BP: (94-128)/(56-75) 128/75 Physical Exam GENERAL: Ill Appearing EYES: No scleral icterus or conjunctivitis HENT: Atraumatic, normocephalic, nares patent, mucus membranes moist NECK: Supple, no JVD, no evidence of bruit bilaterally RESP/CHEST: CTA bilaterally, Left chest tube CARD: regular rate and rhythm, normal S1 and S2, no murmur, rub, or gallop Extremities: No lower extremity edema present. No cyanosis or clubbing. Pedal pulses palpable +2. GI: No organomegaly or masses. Abdominal tenderness and left flank pain. BS present and normoactivex 4 quadrants SKIN: No rash, sores, lesions or subcutaneous nodules. NEURO: AAOx4. Motor intact and no focal deficits PSYCH: Mood and affect congruent and appropriate to situation. Results Review I have reviewed the latest lab and imaging results. XR Chest 1 View Final Result Chest tube overlies the left lung base. No pneumothorax. Large loculated left pleural effusion with associated atelectasis. CRITICAL RESULT: No. COMMUNICATION: Per this written report. By electronically signing this report, I, the attending physician, attest that I have personally reviewed the images/data for the above examination(s) and agree with the final edited report. Drafted by Justo Weaver III, MD on 05/21/2025 2:26 PM Final report signed by Heriberto Ivy MD on 05/21/2025 2:[address] Guided Chest Tube Left Final Result Successful CT-guided left-sided 10 [place] chest tube placement. PLAN: -Chest tube maintenance per primary team. -Chest radiograph to be obtained 1 hour post procedure. -Apply dry dressing around site weekly or PRN if soiled or wet. Clean site with saline as needed. Secure with tube securement device to prevent inadvertent removal of drain whether the drain is sutured in or not. CRITICAL RESULT: No. COMMUNICATION: Per this written report. By electronically signing this report, I, the attending physician, attest that I was present for the entire procedure(s) and agree with the final edited report. Drafted by Nasima Sequeira MD on 05/21/2025 5:59 PM Final report signed by Nasima Sequeira MD on 05/21/2025 6:[address] Abdomen Pelvis w IV Contrast Final Result Interval removal of left upper quadrant surgical drain with fluid collection along the catheter tract and few adjacent locules of gas. Previously noted fluid collections along the pancreatic resection margin of continued decrease in size. Unchanged intrahepatic and extra hepatic biliary ductal dilatation with resolution of pneumobilia. Increased loculated left pleural effusion with worsening atelectasis. CRITICAL RESULT: No. COMMUNICATION: Per this written report. Drafted by Enriqueta Muñiz MD on 05/20/2025 3:48 PM Final report signed by Enriqueta Muñiz MD on 05/20/2025 4:[address] Abdomen Pelvis w IV Contrast Final Result Decreasing pancreatic bed fluid collection, status post pigtail catheter placement CRITICAL RESULT: No. COMMUNICATION: Per this written report. Drafted by River Garcia MD on 05/17/2025 12:47 PM Final report signed by River Garcia MD on 05/17/2025 12:[address] Guided Drain Placement Peritoneal or Retroperitoneal Final Result CT-guided drain placement into pancreatectomy bed abscess. Drain required a small transpleural course. PLAN: 1. Continue Drain to accordion suction 2. Flush drain with 5-10 ml sterile saline daily 3. Monitor output 4. Follow up drain cultures 5. Follow up in IR clinic in approximately 2 weeks if drain remains in place. CRITICAL RESULT: COMMUNICATION: Per this written report. Drafted by Gael Alatorre MD on 05/16/2025 5:47 PM Final report signed by Gael Alatorre MD on 05/18/2025 10:[address] Abdomen Pelvis w IV Contrast Final Result 1. Postoperative changes of resection of the majority of the pancreatic body, and of the spleen. Interval removal of Jesus-Coppola drain previously in the pancreatic bed, with interval development offluid collection in the pancreatic bed measuring 2 x 9.5 cm, compatible with leak from the pancreatic resection margin. Adjacent inflammatory changes of the fat about the collection, and of the residual pancreas, correlate with serum lipase levels. 2. Similar intrahepatic and extrahepatic biliary duct dilation. 3. Trace effusion in the posterior left costophrenic sulcus, with adjacent atelectasis. CRITICAL RESULT: No. COMMUNICATION: Per this written report. Drafted by Nikolas Hernández MD on 05/13/2025 9:06 PM Final report signed by Nikolas Hernández MD on 05/13/2025 9:24 PM XR Chest 1 View (Results Pending) CT Chest w IV Contrast (Results Pending) Assessment & Plan Peripancreatic fluid collection Abdominal pain Dot Dale is a 69 y.o. female with PMH of IPMN s/p distal panc/spleen with a left sided pleural effusion resistant to chest tube drainage. Patient with thick translucent output from chest tube withL flank pain. Plan: -Recommend keep CT to suction -20 -Daily CXR -Surgical plan pending, monitoring consistency and color of output -Potential washout this weekend vs next week - Rest of care and dispo per primary This Consult, Assessment, and Plan has been discussed with Dr. Griggs, Attending Physician Jayesh Simon Thoracic Surgery [1] Past Medical History: Diagnosis Date Cranial nerve III palsy High cholesterol Pancreatic cyst Unspecified injury of unspecified wrist, hand and finger(s), initial encounter Hand injury [2] Past Surgical History: Procedure Laterality Date CYSTOSCOPY ENDOSCOPY EXTERNAL - ECG EXTERNAL - ECG [3] Social History Tobacco Use Smoking status: Never Smokeless tobacco: Never Vaping Use Vaping status: Never Used Substance Use Topics Alcohol use: Never Drug use: Never [4] Family History Problem Relation Name Age of Onset Cancer Mother Anesthesia problems Neg Hx Malig Hyperthermia Neg Hx [5] Current Facility-Administered Medications Medication Dose Route Frequency Provider Last Rate Last Admin acetaminophen (Tylenol) tablet 1,000 mg 1,000 mg Oral q8h Remington Flaherty MD 1,000 mg at 05/21/25 1513 Adult 2-in-1 TPN 65 mL/hr Intravenous Continuous Katlyn Hopkins APRN 65 mL/hr at 05/21/25 2034 New Bag at 05/21/25 2034 aspirin chewable tablet 81 mg 81 mg Oral Daily [place] Park PETROGRAPHER 81 mg at 05/22/25 0803 glucose (Glutose) 40 % oral gel 15-30 grams of glucose 15-30 grams of glucose Sublingual q15 min PRN Tierney Sosa PA Or dextrose 10 % (D10W) bolus 125 mL 125 mL Intravenous q15 min PRN Tierney Sosa PA Or dextrose 10 % (D10W) bolus 250 mL 250 mL Intravenous q15 min PRN Tierney Sosa PA Or glucagon (human recombinant) injection 1 mg 1 mg Intramuscular q15 min PRN Tierney Sosa PA dronabinol (Marinol) capsule 2.5 mg 2.5 mg Oral BID AC Tierney Sosa PA 2.5 mg at 05/22/25 0758 enoxaparin (Lovenox) syringe 40 mg 40 mg Subcutaneous Daily VivianFelicityConrado G, PETROGRAPHER 40 mg at 05/22/25 0803 fat emulsion fish/plant based (SMOFlipid) 20 % IV infusion 250 mL 250 mL Intravenous Every other day Hopkins Katlyn Tang PETROGRAPHER 20.8 mL/hr at 05/21/25 0831 250 mL at 05/21/25 0831 HYDROmorphone (Dilaudid) injection 0.5 mg 0.5 mg Intravenous q4h PRN Yo Maria MD 0.5 mg at 05/21/25 1902 insulin regular (HumuLIN R,NovoLIN R) 100 units/mL injection - Correction - Resistant Dose 0-10 Units Subcutaneous q6h [facility] Tierney Sosa PA 2 Units at 05/21/25 0040 iohexol (OMNIPaque) 300 MG/ML injection 100 mL 100 mL Intravenous Once in imaging Lokesh Anderson MD lidocaine (Lidoderm) 5 % patch 1 patch 1 patch Apply externally q24h Yo Maria MD 1 patchat 05/21/25 2032 methocarbamol (Robaxin) tablet 1,000 mg 1,000 mg Oral 4x daily Tierney Sosa PA 1,000 mg at 05/22/25 0803 mupirocin (Bactroban) 2 % ointment 1 Application 1 Application Each Nostril BID Lokesh Anderson MD 1 Application at 05/22/25 0803 ondansetron ODT (Zofran-ODT) disintegrating tablet 4 mg 4 mg Oral q6h PRN Remington Flaherty MD 4 mg at 05/16/25 1701 Or ondansetron (Zofran) injection 4 mg 4 mg Intravenous q6h PRN Remington Flaherty MD 4 mg at 05/16/25 0952 Or ondansetron (Zofran) 4 MG/5ML solution 4 mg 4 mg Oral q6h PRN Remington Flaherty MD oxyCODONE (Roxicodone) immediate release tablet 5 mg 5 mg Oral q6h PRN Marques Au MD Or oxyCODONE (Roxicodone) immediate release tablet 10 mg 10 mg Oral q6h PRN Marques Au MD 10 mg at 05/22/25 0803 pantoprazole (Protonix) EC tablet 40 mg 40 mg Oral Daily Conrado Park APRN 40 mg at 05/22/25 0803 piperacillin-tazobactam (Zosyn) 3.375 g in sodium chloride 0.9% 100 mL IVPB (vial adapter required)3.375 g Intravenous q6h Marques Au MD 36.7 mL/hr at 05/22/25 0758 3.375 g at 05/22/25 0758 sodium chloride 0.9 % flush 10 mL 10 mL Intravenous q12h Lokesh Anderson MD 10 mL at 05/20/25 1012 sodium chloride 0.9 % flush 10 mL 10 mL Intravenous q1h PRN Lokesh Anderson MD sodium chloride 0.9 % flush 10 mL 10 mL Intravenous q12h Lokesh Anderson MD sodium chloride 0.9 % flush 10 mL 10 mL Intravenous q1h PRN Lokesh Anderson MD sodium chloride 0.9 % flush 20 mL 20 mL Intravenous q1h PRN Lokesh Anderson MD sodium chloride 0.9 % flush 20 mL 20 mL Intravenous q1h PRN Lokesh Andreson MD Cosigned by Dylon Griggs MD at 05/23/2025 12:38 PM EST Associated attestation - Dylon Griggs MD - 05/23/2025 12:38 PM EST I saw and evaluated the patient. I discussed the case with the medical student and resident/fellow and agree with the findings and plan as documented. I personally participated in the management of the patient. Briefly, we anticipate the need for surgical decortication (left) this admission, pending OR availability and patient condition. * Care Plan - Luci Silvestre RN - 05/22/2025 12:32 AM EST Problem: Adult Inpatient Plan of Care Goal: Plan of Care Review Outcome: Ongoing, Progressing Flowsheets Taken 05/21/2025 1400 by Evan Simpson RN Outcome Evaluation: met Taken 05/21/2025 1030 by Evan Simpson RN Plan of Care Reviewed With: patient Taken 05/21/2025 1009 by Ele Estrada RN Progress: no change Goal: Patient-Specific Goal (Individualized) Outcome: Ongoing, Progressing Flowsheets (Taken 05/21/20251999) Patient/Family-Specific Goals (Include Timeframe): pt will report adequate pain control this shift. Individualized Care Needs: pain control Anxieties, Fears or Concerns: none expressed Goal: Absence of Hospital-Acquired Illness or Injury Outcome: Ongoing, Progressing Intervention: Identify and Manage Fall Risk Flowsheets (Taken 05/21/20251999) Safety Promotion/Fall Prevention: activity supervised assistive device/personal items within reach clutter-free environment maintained fall prevention program maintained lighting adjusted mobility aid in reach nonskid shoes/slippers when out of bed room organization consistent safety round/check completed toileting scheduled Intervention: Prevent Skin Injury Flowsheets Taken 05/21/20251999 by Luci Silvestre RN Body Position: weight shifting Taken 05/21/2025 1009 by Ele Estrada RN Skin Protection: incontinence pads utilized Intervention: Prevent and Manage VTE (Venous Thromboembolism) Risk Flowsheets (Taken 05/22/2025 0000) VTE Prevention/Management: patient refused intervention education provided Intervention: Prevent Infection Flowsheets (Taken 05/21/2025 1009 by Ele Estrada, RN) Infection Prevention: hand hygiene promoted single patient room provided visitors restricted/screened Goal: Optimal Comfort and Wellbeing Outcome: Ongoing, Progressing Intervention: Monitor Pain and Promote Comfort Flowsheets (Taken 05/21/20252313) Pain Management Interventions: declines Intervention: Provide Person-Centered Care Flowsheets (Taken 05/21/20251008 by Ele Estrada, RN) Trust Relationship/Rapport: care explained choices provided questions answered questions encouraged Problem: Pain Acute Goal: Optimal Pain Control and Function Outcome: Ongoing, Progressing Intervention: Optimize Psychosocial Wellbeing Flowsheets (Taken 05/21/2025 100 by Ele Estrada, RN) Supportive Measures: goal-setting facilitated relaxation techniques promoted self-care encouraged Diversional Activities: smartphone television Spiritual Activities Assistance: hope instilled personal rituals encouraged Intervention: Develop Pain Management Plan Flowsheets (Taken 05/21/20252313) Pain Management Interventions: declines Intervention: Prevent or Manage Pain Flowsheets (Taken 05/21/20251008 by Ele Estrada, RN) Sensory Stimulation Regulation: quiet environment promoted visitors limited Complementary Therapy: essential oils utilized Bowel Elimination Promotion: ambulation promoted commode/bedpan at bedside Sleep/Rest Enhancement: awakenings minimized noise level reduced regular sleep/rest pattern promoted Medication Review/Management: medications reviewed Problem: Fall Injury Risk Goal: Absence of Fall and Fall-Related Injury Outcome: Ongoing, Progressing Intervention: Identify and Manage Contributors Flowsheets (Taken 05/21/2025 100 by Ele Estrada, RN) Medication Review/Management: medications reviewed Self-Care Promotion: independence encouraged Intervention: Promote Injury-Free Environment Flowsheets (Taken 05/21/20251999) Safety Promotion/Fall Prevention: activity supervised assistive device/personal items within reach clutter-free environment maintained fall prevention program maintained lighting adjusted mobility aid in reach nonskid shoes/slippers when out of bed room organization consistent safety round/check completed toileting scheduled Problem: Skin Injury Risk Increased Goal: Skin Health and Integrity Outcome: Ongoing, Progressing Intervention: Optimize Skin Protection Flowsheets Taken 05/21/20251999 by Luci Silvestre, RN Activity Management: up to bedside commode Taken 05/21/20251008 by Ele Estrada, RN Pressure Reduction Techniques: frequent weight shift encouraged Pressure Reduction Devices: pressure-redistributing mattress utilized Skin Protection: incontinence pads utilized Head of Bed (HOB) Positioning: HOB elevated Intervention: Promote and Optimize Oral Intake Flowsheets (Taken 05/21/2025 100 by Ele Estrada, RN) Oral Nutrition Promotion: physical activity promoted Nutrition Interventions: meal set-up provided Problem: Infection Goal: Absence of Infection Signs and Symptoms Outcome: Ongoing, Progressing Intervention: Prevent or Manage Infection Flowsheets Taken 05/21/20251999 by Luci Silvestre RN Isolation Precautions: precautions maintained protective Taken 05/21/2025 1009 by Ele Estrada, RN Infection Management: aseptic technique maintained Fever Reduction/Comfort Measures: essential oils applied * Progress Notes - Conrado Park APRN - 05/21/2025 2:55 PM EST Images from the original note were not included. Department of Surgery Division of Surgical Oncology Surgery Progress Note 05/21/25 [place] Subjective Subjective: HPI 69F with history of IPMN s/p distal panc/spleen c/b post-op pancreatic leak requiring extended period with surgical drain in place (removed on 04/23). Presented with worsening abdominal pain, fever/chills and found to have peripancreatic fluid collection. 03/20/25: distal panc/spleen [Monica] Interval: Yesterday, patient Megace increased for appetite stimulation. Discussion yesterday with patient regarding GOC. Patient does not want to be a burden on her family with potential TPN. Says she had TPN before and her daughter work schedule was disrupted because of TPN maintenance. OVN, patient continued to have Left subchondral pain. She was given lidoderm and her PRN robaxin. EKG was normal. Patient is in acute L flank pain today radiating to Left abdomen. Site of IR drain removal was non-erythematous. No drainage noted. PLT 479 (380). Patient and are amenable to PiCC and TPN. I/O: UOP 650+ x1, BMx0 Edited by: Conrado Park APRN at 05/21/2025 0624 Review of Systems: Relevant review of systems was obtained as able and is negative unless stated above in HPI. Objective Objective: Vital signs: Vitals: 05/21/25 1430 BP: 125/73 Pulse: 89 Resp: 22 Temp: SpO2: 96% Physical Exam: Physical Exam Vitals reviewed. Constitutional: General: She is not in acute distress. Appearance: She is ill-appearing. HENT: Head: Normocephalic and atraumatic. Nose: Nose normal. Eyes: General: No scleral icterus. Extraocular Movements: Extraocular movements intact. Conjunctiva/sclera: Conjunctivae normal. Pulmonary: Effort: Pulmonary effort is normal. No respiratory distress. Abdominal: General: There is no distension. Palpations: Abdomen is soft. Tenderness: There is abdominal tenderness. There is no guarding or rebound. Musculoskeletal: General: No swelling. Normal range of motion. Cervical back: Normal range of motion. Skin: General: Skin is warm and dry. Coloration: Skin is not jaundiced. Neurological: General: No focal deficit present. Mental Status: She is alert and oriented to person, place, and time. Psychiatric: Mood and Affect: Mood normal. Behavior: Behavior normal. Thought Content: Thought content normal. Judgment: Judgment normal. Intake/Output Summary (Last 24 hours) at 05/21/2025 1455 Last data filed at 05/21/2025 1400 Gross per 24 hour Intake 240 ml Output 770 ml Net -530 ml Lines/Drains/Tubes: Patient Lines/Drains/Airways Status Active Airway None Output by Drain (mL) 05/19/25 0700 - 05/19/25 1859 05/19/25 1900 - 05/20/25 0659 05/20/25 0700 - 05/20/25 1859 05/20/25 1900 - 05/21/25 0659 05/21/25 0700 - 05/21/25 1455 Requested LDAs do not have output data documented. Labs in last 18 hours: CBC WBC 18.72 (H) Hb 11.6 Plt 419 (H) Hct 34.3 ANC ?? INR ??, PTT ??, Anti-Xa ?? MCV 88 BMP Na 136 Cl 105 BUN 11 Glu 116 (H) K 4.4 Co2 21 (L) Cr 0.61 Ca 7.9 (L) iCa ?? Mg 1.9, Phos 3.3 Lactate ?? LFT AST 12 AlkPhos 80 T Prot 5.9 (L) ALK 8 (L) Bili 0.5 Alb ?? D.Bili ?? Lab Trends: H/H Results from last 7 days Lab Units 05/21/2531405/20/2513105/19/25 0422 HEMOGLOBIN g/dL 11.6 13.1 11.3 HEMATOCRIT % 34.3 39.1 33.6* INR Cr Results from last 7 days Lab Units 05/21/2531405/20/2513105/19/25 0422 CREATININE mg/dL 0.61 0.53* 0.47* Lactate No lab exists for component: LACTTEVEN Radiographic Interpretation: I have reviewed the imaging above and agree with the radiologist interpretation. XR Chest 1 View Result Date: 05/21/2025 Chest tube overlies the left lung base. No pneumothorax. Large loculated left pleural effusion withassociated atelectasis. CRITICAL RESULT: No. COMMUNICATION: Per this written report. By electronically signing this report, I, the attending physician, attest that I have personally reviewed the images/data for the above examination(s) and agree with the final edited report. Drafted by Justo Weaver III, MD on 05/21/2025 2:26 PM Final report signed by Heriberto Ivy MD on 05/21/2025 2:50 PM Medications reviewed. Vital signs reviewed. Labs reviewed. Assessment/Plan Assessment and Plan: Medical Problems Problem List * (Principal) Peripancreatic fluid collection CN III palsy, left Overview Addendum 03/31/2025 7:55 AM by Katlyn Hopkins APRN Hx of Abnormal blood electrolyte level Overview Signed 03/21/2025 9:54 AM by Katlyn Hopkins APRN - daily/PRN CMP, Mg, Phos - replete as appropriate - goal: K>4, phos>3, mg>2 HLD (hyperlipidemia) Overview Addendum 03/28/2025 8:24 AM by Katlyn Hopkins APRN Continue statin History of CVA (cerebrovascular accident) Overview Signed 03/21/2025 9:58 AM by Katlyn Hopkins APRN 11/2020 CT Head showed old left occipital & left temporal infarcts. On ASA 81mg daily. Leukocytosis Overview Addendum 04/04/2025 9:46 AM by Katlyn Hopkins APRN Down trending Daily CBC Abx: fidaxomicin (changed to Vancomycin due to cost on day of dc (03/30-04/09) levofloxacin/flagyl (03/30-04/12) Zosyn 03/29-03/30 zosyn [03/20-] x48h post-op Cx: GI panel/C. Diff: +GDH- Toxin, all other negative (03/30) On total parenteral nutrition (TPN) Overview Addendum 04/04/2025 9:18 AM by Katlyn Hopkins APRN - initiated on 03/30/25, continue on dc -daily CMP,mg,phos -weekly pre-albumin, triglycerides Abdominal pain Pituitary adenoma (CMS/HCC) Overview Deleted 03/21/2025 10:00 AM by Katlyn Hopkins APRN IPMN (intraductal papillary mucinous neoplasm) Overview Addendum 04/04/2025 9:18 AM by Katlyn Hopkins APRN 03/20/2025:ex-lap, SAMIA, distal pancreatectomy w/splenectomy, celiac axis node dissection [Monica] Keep DARIAN bulb on dc Present on Admission: Peripancreatic fluid collection Plan: [ ] schedule splenectomy vaccines - IR consulted for chest tube today - CT AP to r/o abscess formation - FU appetite- changed megace to dronabinol due to VTE risk - body fluid culture growing: Streptococcus constellatus, H. Parainfluenzae. Edited by: Conrado Park APRN at 05/21/2025 2982 Dispo: Continue Current Level of Care Conrado Park APRN Cosigned by Lokesh Anderson MD at 05/22/2025 9:37 AM EST Associated attestation - Lokesh Anderson MD - 05/22/2025 9:37 AM EST I attest to being involved in more than half the total time in patient care. * Post-Procedure Note - Malou Verma MD - 05/21/2025 11:30 AM EST Vascular and Interventional Radiology Brief Postprocedure Note Attending: Dr. Sequeira Still Operator Batch Or Continuous: Dr. Verma [facility] Pre-operative Diagnosis: Left pleural effusion Post-operative Diagnosis: Same Type of Anesthesia: Conscious Sedation Description of Findings: Successful placement of a left sided 10F chest tube Technical/Surgical Procedures Used: CT Specimen Obtained: Yes, 10cc tan yellow pleural fluid Complications: None Estimated Blood Loss: minimal Procedure Events Event Event Time Sedation Start 05/21/2025 11:17 AM See detailed result report with images in PACS. The patient tolerated the procedure well without incident or complication and is in stable condition. * Progress Notes - Josee Hull PharmD - 05/21/2025 10:50 AM EST Images from the original note were not included. Pharmacist TPN Progress Note Patient: Dot Dale Age: 69 y.o. Admission Date: [id number] Subjective/Objective/Hospital Course: 69 y.o. 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 Patient has been on TPN previously (~03/30-04/25). 05/20: Patient agreeable to PICC and TPN, switched appetite stimulants (megestrol --> dronabinol), CT scan pending 05/21: 05/20/25 CT abd/pelv demonstrates loculated large left pleural effusion, chest tube placement with IR Problem List[1] Past Medical History[2] Surgical History[3] Allergies: Patient has no known allergies. LABS: Results from last 7 days Lab Units 05/21/25 0315 05/20/25 0132 05/19/25 0422 05/18/25 0433 05/17/25 0003 05/16/25 0020 05/15/25 0218 GLUCOSE mg/dL 116* 128* 132* 134* 123* 110* 160* BUN mg/dL 11 9 8 6* 8 11 12 CREATININE mg/dL 0.61 0.53* 0.47* 0.54* 0.54* 0.55* 0.72 SODIUM mmol/L 136 136 136 139 139 137 136 POTASSIUM mmol/L 4.4 4.6 3.5* 3.9 3.7 3.2* 3.2* CHLORIDE mmol/L 105 104 106 108* 106 104 102 CO2 mmol/L 21* 18* 21* 21* 21* 25 24 CALCIUM mg/dL 7.9* 8.0* 7.9* 7.8* 7.7* 7.7* 8.0* PHOSPHORUS mg/dL 3.3 3.2 2.6 2.5 3.4 1.8* 3.3 MAGNESIUM mg/dL 1.9 2.0 1.7* 2.1 1.7* 2.0 1.4* Results from last 7 days Lab Units 05/21/2531405/20/2513105/19/2542105/18/2543205/17/25 0003 05/16/25 0020 05/15/25 0218 WBC 10*3/uL 18.72* 18.96* 10.29 9.04 10.73* 14.66* 18.33* HEMOGLOBIN g/dL 11.6 13.1 11.3 10.9* 11.2 11.0* 11.0* HEMATOCRIT % 34.3 39.1 33.6* 32.1* 33.3* 33.1* 32.1* PLATELETS 10*3/uL 419* 479* 380* 355 329 301 268 Results from last 7 days Lab Units 05/21/2531405/20/2513105/19/252 05/18/25 0433 05/17/25 0003 05/16/25 0020 05/15/25 0218 ALT U/L 8* 11 14 13 10 16 18 AST U/L 12 21 27 33 25 30 31 ALKALINE PHOSPHATASE U/L 80 94 92 97 100 106 102 BILIRUBIN TOTAL mg/dL 0.5 0.5 0.3 0.4 0.4 0.5 0.7 ALBUMIN g/dL 2.3* 2.7* 2.4* 2.4* 2.3* 2.4* 2.5* Nutrition Labs: Lab Results Component Value Date TRIG 119 05/20/2025 BILITOT 0.5 05/21/2025 ALBUMIN 2.3 (L) 05/21/2025 PREALBUMIN 3.3 (L) 05/16/2025 HGBA1C 5.4 12/05/2020 CRP 1.5 12/07/2020 Microbiology Results Procedure Component Value Units Date/Time Blood Culture (Aerobic/Anaerobet Set) [[id number]] Collected: 05/14/25 023 Order Status: Completed Specimen: Blood from Wrist, Left Updated: 05/19/25 0601 Culture No growth at day 5 Narrative: Low blood volume submitted, results may be compromised Blood Culture (Aerobic/Anaerobet Set) [[id number]] Collected: 05/14/25231 Order Status: Completed Specimen: Blood from Wrist, Right Updated: 05/19/25 0551 Culture No growth at day 5 Narrative: Low blood volume submitted, results may be compromised Body Fluid Culture and Gram Stain [[id number]] (Abnormal) (Susceptibility) Collected: 05/14/25 1647 Order Status: Completed Specimen: Body Fluid (specify site): Updated: 05/18/25 1436 Culture Heavy Growth 4+ Streptococcus constellatus Comment: This isolate has been identified using the FDA Approved [employer] [place] System The organism value for this result has been updated. These results have been appended to the previously preliminary verified report. Edited result: Previously reported as Streptococcus species on 05/15/2025 at 1553 EST. 1+ Haemophilus parainfluenzae Comment: This isolate has been identified using the FDA Approved [email or web address] [place] System The organism value for this result has been updated. These results have been appended to the previously preliminary verified report. Gram Stain Result Numerous Gram positive cocci in pairs and chains Numerous Gram negative rods Numerous Polymorphonuclear leukocytes Susceptibility Streptococcus constellatus ETEST Penicillin G 0.094 Susceptible Susceptibility Haemophilus parainfluenzae Method Not Specified Beta Lactamase Negative Negative Susceptibility Comments Haemophilus parainfluenzae This organism is predictably susceptible to ampicillin or amoxicillin. Vitals: Visit Vitals BP 122/70 (BP Location: Left arm, Patient Position: Lying) Pulse 83 Temp 36.4 ??C (97.5 ??F) (Tympanic) Resp 18 [place] Coma Scale Score: 15 Mel[place] Scale Score: 17 Oxygen Therapy: Supplemental oxygen Skin Integrity: Other (Comment) (left obd drain site) Wt Readings from Last 3 Encounters: 05/21/25 70.8 kg (156 lb 1.4 oz) 04/30/25 70.9 kg (156 lb 4.9 oz) 04/23/25 72.5 kg (159 lb 13.3 oz) Current Diet Order: Dietary Orders (From admission, onward) Start Ordered 05/21/25 0001 NPO diet Diet effective midnight 05/20/25 1845 05/18/25 1218 Oral nutrition supplements Until discontinued Question Answer Comment Supplement frequency: All meals All meals supplement: Boost Very High Calorie Vanilla Quantity for All Meals of Boost Very High Calorie - Vanilla One 05/18/25 1217 05/17/25 1217 Oral nutrition supplements Until discontinued Question Answer Comment Supplement frequency: Lunch Supplement frequency: Dinner Lunch supplement: Boost Breeze Wild Andersen Quantity for Lunch of Boost Breeze Wild Andersen One Dinner supplement: Boost Breeze Wild Andersen Quantity for Dinner of Boost Breeze Wild Andersen One 05/17/25 1217 Current Medications Current Scheduled Medications[4] Current Continuous Medications[5] Current Anthropometrics: Admit weight: 70.6 kg Height: 162.6 cm (5' 4 ) [place] body weight: 54.7 kg (120 lb 9.5 oz) Adjusted ideal body weight: 61.1 kg (134 lb 12.6 oz) (129%) of IBW Body mass index is 26.79 kg/m??. Adjusted wt: 58.7 kg (if over 125% of IBW) CENTRAL IV Access: PICC (05/20/25) Estimated Nutritional Needs: HBE: 1161 kcal/day Stress Factor: 1.2 - 1.3 Total Calories/day: 1393 - 1626 Protein (amino acids): 1.3 - 1.7 grams/kg Protein (Amino acids): 76.3 - 99.8 grams/day Measured Energy Needs: Respiratory Quotient: 05/21/2025 Plan/Recommendation: Continue LOW CHO TPN and advance to goal possibly 05/22/2025 if electrolytes are WNL. IF concern for Refeeding syndrome due to prolong poor PO intake - administer 200mg thiamine x 2 doses when TPN started LOW CHO TPN: DEXTROSE: 9% (140 g/day CHO) AMINO ACIDS: 6% (93.6 g/day - 1.59 g/adjusted kg/day Amino acids) @ 65 ml/hr, with 30mg/day thiamine, MVI, and Trace elements Every other day 250ml 20% SMOF lipids Replace electrolytes outside of TPN Calcium and/or Phosphorus supplements MUST be in a separate line from the TPN to avoid precipitation Obtain BMP, magnesium, and Phos daily x 3days and then at least twice weekly Obtain LFT and TGLY weekly GOAL TPN: DEXTROSE: 18% (281 g/day CHO) AMINO ACIDS: 6% (93.6 g/day - 1.59 g/adjusted kg/day Amino acids) @ 65 ml/hr, with 30mg/day thiamine, MVI, and Trace elements Every other day 250ml 20% SMOF lipids 1579 Total kcal/day - 26.9 kcal/adjusted kg/day I have monitored the TPN therapy, including the labs, and have communicated any modifications with the primary medical/surgical team. Continue current TPN formula and lipid regimen as above. I have communicated the TPN plan with the IV room. 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 Available via [email or web address] Secure Chat [1] Patient Active Problem List Diagnosis CN III palsy, left Pituitary adenoma (CMS/HCC) IPMN (intraductal papillary mucinous neoplasm) Abnormal blood electrolyte level HLD (hyperlipidemia) History of CVA (cerebrovascular accident) Leukocytosis On total parenteral nutrition (TPN) Peripancreatic fluid collection Abdominal pain [2] Past Medical History: Diagnosis Date Cranial nerve III palsy High cholesterol Pancreatic cyst Unspecified injury of unspecified wrist, hand and finger(s), initial encounter Hand injury [3] Past Surgical History: Procedure Laterality Date CYSTOSCOPY ENDOSCOPY EXTERNAL - ECG EXTERNAL - ECG [4] acetaminophen, 1,000 mg, Oral, q8h aspirin, 81 mg, Oral, Daily dronabinol, 2.5 mg, Oral, BID AC [Held by provider] enoxaparin, 40 mg, Subcutaneous, Daily fat emulsion fish/plant based, 250 mL, Intravenous, Every other day insulin regular, 0-10 Units, Subcutaneous, q6h KHUSHI lidocaine, 1 patch, Apply externally, q24h methocarbamol, 1,000 mg, Oral, 4x daily mupirocin, 1 Application, Each Nostril, BID pantoprazole, 40 mg, Oral, Daily piperacillin-tazobactam, 3.375 g, Intravenous, q6h sodium chloride, 10 mL, Intravenous, q12h sodium chloride, 10 mL, Intravenous, q12h [5] Adult 2-in-1 TPN, 65 mL/hr, Last Rate: 50 mL/hr (05/21/25 0514) * Interval H&P Note - Malou eVrma MD - 05/21/2025 10:23 AM EST H&P reviewed. The patient was examined and there are no changes to the H&P Source Note - Elias Garcia MD - 05/20/2025 6:37 PM EST 05/20/25 Patient: Dot Dale Date of : 1955/69 y.o. Requesting Service: Surgical Oncology Chief complaint Pleural Effusion History Of Present Illness Dot Dale is a 69 y.o. female with history of IPMN s/p distal panc/spleen c/b post-op pancreatic leak requiring extended period with surgical drain in place (removed on 04/23). 05/20/25 CT abd/pelvdemonstrates loculated large left pleural effusion, increased in size with associated left basilar atelectasis from 05/17/25 CT abd/pelv. VIR consulted for left chest tube placement. History and admission information obtained from chart review of primary and consulting teams notation , as well as speaking directly to consulting team. The following portions of the chart were reviewed this encounter and updated as appropriate: Review of Systems: 14 point ROS negative except for above. Medical/Surgical/Social/Family History Past Medical History[1] Surgical History[2] Social History[3] Family History[4] Allergies Patient has no known allergies. Objective: All laboratory, images, tracings, and vital sign data are personally reviewed unless otherwise noted. VITALS: Temp: [36.6 ??C (97.9 ??F)-37.2 ??C (99 ??F)] 36.6 ??C (97.9 ??F) Heart Rate: [83-98] 86 Resp: [18-24] 20 BP: (117-137)/(63-84) 117/63 Weight: 69.6 kg (153 lb 7 oz) Body mass index is 26.72 kg/m??. I & O SUMMARY I/O last 3 completed shifts: In: 590 (8.4 mL/kg) [P.O.:260; IV Piggyback:330] Out: 1440 (20.4 mL/kg) [Urine:1425 (0.6 mL/kg/hr); Drains:15] Weight: 70.6 kg No intake/output data recorded. MEDICATIONS: Current Medications[5] Results Review I have reviewed the latest lab and imaging results. EXAM: GENERAL: No acute distress HENT: Normocephalic and atraumatic PULMONARY: normal respiratory effort, symmetric chest rise CARDIOVASCULAR: Warm, well perfused ABDOMINAL: Soft, non peritonitic Assessment & Plan: Assessment & Plan Peripancreatic fluid collection Abdominal pain - INR ??, PTT ??, Plt 479 (H) - Personally reviewed 05/20/25 CT abd/pelv demonstrates loculated large left pleural effusion, increased in size with associated left basilar atelectasis from 05/17/25 CT abd/pelv. - VSS, Afebrile PLAN: - Will tentatively plan to perform CT guided chest tube placement 05/21, pending discussion at morning rounds. - Will consent prior to procedure - NPO at 0000, hold anticoagulation - Requesting team responsible for placing lab analysis orders. Case pending discussion with attending physician, Dr. Marie. Thank you for allowing us to participate in the care of this patient. Elias Garcia MD Interventional Radiology [phone] [1] Past Medical History: Diagnosis Date Cranial nerve III palsy High cholesterol Pancreatic cyst Unspecified injury of unspecified wrist, hand and finger(s), initial encounter Hand injury [2] Past Surgical History: Procedure Laterality Date CYSTOSCOPY ENDOSCOPY EXTERNAL - ECG EXTERNAL - ECG [3] Social History Tobacco Use Smoking status: Never Smokeless tobacco: Never Vaping Use Vaping status: Never Used Substance Use Topics Alcohol use: Never Drug use: Never [4] Family History Problem Relation Name Age of Onset Cancer Mother Anesthesia problems Neg Hx Malig Hyperthermia Neg Hx [5] Current Facility-Administered Medications: acetaminophen (Tylenol) tablet 1,000 mg, 1,000 mg, Oral, q8h, Remington Flaherty MD, 1,000 mg at 05/19/25 0526 Adult 2-in-1 TPN, 65 mL/hr, Intravenous, Continuous, Katlyn Hopkins APRN aspirin chewable tablet 81 mg, 81 mg, Oral, Daily, [place], PETROGRAPHER, 81 mg at 05/20/25 0958 glucose (Glutose) 40 % oral gel 15-30 grams of glucose, 15-30 grams of glucose, Sublingual, q15 minPRN OR dextrose 10 % (D10W) bolus 125 mL, 125 mL, Intravenous, q15 min PRN OR dextrose 10 %(D10W) bolus 250 mL, 250 mL, Intravenous, q15 min PRN OR glucagon (human recombinant) injection1 mg, 1 mg, Intramuscular, q15 min PRN, Tierney Sosa PA dronabinol (Marinol) capsule 2.5 mg, 2.5 mg, Oral, BID AC, Tierney Sosa PA, 2.5 mg at 05/20/25 1701 [Held by provider] enoxaparin (Lovenox) syringe 40 mg, 40 mg, Subcutaneous, Daily, [place] APRN, 40 mg at 05/20/25 0958 [START ON 05/21/2025] fat emulsion fish/plant based (SMOFlipid) 20 % IV infusion 250 mL, 250 mL, Intravenous, Every other day, Katlyn Hopkins APRN [START ON 05/21/2025] insulin regular (HumuLIN R,NovoLIN R) 100 units/mL injection - Correction - Resistant Dose, 0-10 Units, Subcutaneous, q6h [facility], Tierney Sosa PA lidocaine (Lidoderm) 5 % patch 1 patch, 1 patch, Apply externally, q24h, Yo Maria MD, 1 patch at 05/19/25 2041 methocarbamol (Robaxin) tablet 1,000 mg, 1,000 mg, Oral, 4x daily, Tierney Sosa PA, 1,000 mg at107/20/24 1300 mupirocin (Bactroban) 2 % ointment 1 Application, 1 Application, Each Nostril, BID, Lokesh Anderson MD, 1 Application at 05/20/25 0959 ondansetron ODT (Zofran-ODT) disintegrating tablet 4 mg, 4 mg, Oral, q6h PRN, 4 mg at 05/16/25 1701OR ondansetron (Zofran) injection 4 mg, 4 mg, Intravenous, q6h PRN, 4 mg at 05/16/25 0952 OR ondansetron (Zofran) 4 MG/5ML solution 4 mg, 4 mg, Oral, q6h PRN, Remington Flaherty MD oxyCODONE (Roxicodone) immediate release tablet 5 mg, 5 mg, Oral, q6h PRN OR oxyCODONE (Roxicodone) immediate release tablet 10 mg, 10 mg, Oral, q6h PRN, Marques Au MD, 10 mg at 703 pantoprazole (Protonix) EC tablet 40 mg, 40 mg, Oral, Daily, [place], PETROGRAPHER, 40 mg at 05/20/25 0958 piperacillin-tazobactam (Zosyn) 3.375 g in sodium chloride 0.9% 100 mL IVPB (vial adapter required), 3.375 g, Intravenous, q6h, Marques Au MD, Last Rate: 36.7 mL/hr at 05/20/25 1300, 3.375 gat 05/20/25 1300 sodium chloride 0.9 % flush 10 mL, 10 mL, Intravenous, q12h, Lokesh Anderson MD, 10 mL at 05/20/25 1012 sodium chloride 0.9 % flush 10 mL, 10 mL, Intravenous, q1h PRN, Lokesh Anderson MD sodium chloride 0.9 % flush 10 mL, 10 mL, Intravenous, q12h, Lokesh Anderson MD sodium chloride 0.9 % flush 10 mL, 10 mL, Intravenous, q1h PRN, Lokesh Anderson MD sodium chloride 0.9 % flush 20 mL, 20 mL, Intravenous, q1h PRN, Lokesh Anderson MD sodium chloride 0.9 % flush 20 mL, 20 mL, Intravenous, q1h PRN, Lokesh Anderson MD Cosigned by Kelly Marie MD at 05/21/2025 10:18 AM EST * Progress Notes - Katie Pena RN - 05/21/2025 10:17 AM EST Case Management Adult Progress Note Dot Dale 69 y.o. female CSN: [id number] Admission: 05/13/2025 6:45 PM Primary Problem: Peripancreatic fluid collection Anticipated Discharge Date: 05/23 Has Discharge Plans Changed? No Medicare Second Notice: Housing Circumstances: Not Applicable Housing Circumstances Action Taken: Medically Ready for Discharge: no Additional Comments POC reviewed with primary team. Refer to primary team's progress note for details. Pt not medically ready to d\c. Having a chest tube placed today. DC plan of care ongoing Accepted by [facility]. Katie Pena RN * Care Plan - Ele Estrada RN - 05/21/2025 10:14 AM EST Problem: Adult Inpatient Plan of Care Goal: Plan of Care Review Outcome: Ongoing, Progressing Flowsheets (Taken 05/21/2025 1009) Progress: no change Outcome Evaluation: pt verbalized understanding of plan of care Plan of Care Reviewed With: patient spouse Goal: Patient-Specific Goal (Individualized) Outcome: Ongoing, Progressing Flowsheets (Taken 05/21/2025 1009) Patient/Family-Specific Goals (Include Timeframe): pt will remain free from fall/injuries on day shift, pt will use call light for assistance on day shift, pt will get chest tube placed on day shift Individualized Care Needs: medication administration Anxieties, Fears or Concerns: none stated Goal: Absence of Hospital-Acquired Illness or Injury Outcome: Ongoing, Progressing Intervention: Identify and Manage Fall Risk Flowsheets (Taken 05/21/20251008) Safety Promotion/Fall Prevention: activity supervised clutter-free environment maintained nonskid shoes/slippers when out of bed room organization consistent safety round/check completed Intervention: Prevent Skin Injury Flowsheets (Taken 05/21/20251008) Body Position: weight shifting Skin Protection: incontinence pads utilized Intervention: Prevent and Manage VTE (Venous Thromboembolism) Risk Flowsheets (Taken 05/21/20251008) VTE Prevention/Management: patient refused intervention education provided Intervention: Prevent Infection Flowsheets (Taken 05/21/20251008) Infection Prevention: hand hygiene promoted single patient room provided visitors restricted/screened Goal: Optimal Comfort and Wellbeing Outcome: Ongoing, Progressing Intervention: Monitor Pain and Promote Comfort Flowsheets (Taken 05/21/20251008) Pain Management Interventions: relaxation techniques promoted quiet environment facilitated Intervention: Provide Person-Centered Care Flowsheets (Taken 05/21/20251008) Trust Relationship/Rapport: care explained choices provided questions answered questions encouraged Problem: Pain Acute Goal: Optimal Pain Control and Function Outcome: Ongoing, Progressing Intervention: Optimize Psychosocial Wellbeing Flowsheets (Taken 05/21/20251008) Supportive Measures: goal-setting facilitated relaxation techniques promoted self-care encouraged Diversional Activities: smartphone television Spiritual Activities Assistance: hope instilled personal rituals encouraged Intervention: Develop Pain Management Plan Flowsheets (Taken 05/21/20251008) Pain Management Interventions: relaxation techniques promoted quiet environment facilitated Intervention: Prevent or Manage Pain Flowsheets (Taken 05/21/20251008) Sensory Stimulation Regulation: quiet environment promoted visitors limited Complementary Therapy: essential oils utilized Bowel Elimination Promotion: ambulation promoted commode/bedpan at bedside Sleep/Rest Enhancement: awakenings minimized noise level reduced regular sleep/rest pattern promoted Medication Review/Management: medications reviewed Problem: Fall Injury Risk Goal: Absence of Fall and Fall-Related Injury Outcome: Ongoing, Progressing Intervention: Identify and Manage Contributors Flowsheets (Taken 05/21/20251008) Medication Review/Management: medications reviewed Self-Care Promotion: independence encouraged Intervention: Promote Injury-Free Environment Flowsheets (Taken 05/21/2025 1009) Safety Promotion/Fall Prevention: activity supervised clutter-free environment maintained nonskid shoes/slippers when out of bed room organization consistent safety round/check completed Problem: Skin Injury Risk Increased Goal: Skin Health and Integrity Outcome: Ongoing, Progressing Intervention: Optimize Skin Protection Flowsheets (Taken 05/21/2025 100) Activity Management: activity adjusted per tolerance activity encouraged Pressure Reduction Techniques: frequent weight shift encouraged Pressure Reduction Devices: pressure-redistributing mattress utilized Skin Protection: incontinence pads utilized Head of Bed (HOB) Positioning: HOB elevated Intervention: Promote and Optimize Oral Intake Flowsheets (Taken 05/21/2025 100) Oral Nutrition Promotion: physical activity promoted Nutrition Interventions: meal set-up provided Problem: Infection Goal: Absence of Infection Signs and Symptoms Outcome: Ongoing, Progressing Intervention: Prevent or Manage Infection Flowsheets (Taken 05/21/2025 100) Infection Management: aseptic technique maintained Fever Reduction/Comfort Measures: essential oils applied Isolation Precautions: precautions maintained protective * Pre-Procedure Note - Malou Verma MD - 05/21/2025 9:41 AM EST Images from the original note were not included. INTERVENTIONAL RADIOLOGY SEDATION PRE-PROCEDURAL ASSESSMENT AND PLAN OF CARE Indication for procedure: The primary encounter diagnosis was Abdominal pain, unspecified abdominallocation. Diagnoses of Nausea and vomiting, unspecified vomiting type, Peripancreatic fluid collection, IPMN (intraductal papillary mucinous neoplasm), and Pituitary adenoma (CMS/HCC) were also pertinent to this visit. Planned Procedure: left chest tube placement Relevant past medical history: pancreatic leak Previous problems with surgery, anesthesia or sedation: No Previous family history or problems with anesthesia or sedation: No History of tobacco use, alcohol use, or substance abuse: Tobacco Use History[1], Social History Substance and Sexual Activity Alcohol Use Never , Social History Substance and Sexual Activity Drug Use Never Height and Weight: Visit Vitals BP 113/73 (BP Location: Left arm, Patient Position: Lying) Pulse 90 Temp 36.6 ??C (97.9 ??F) (Oral) Ht 1.626 m (5' 4 ) Wt 70.8 kg (156 lb 1.4 oz) SpO2 92% BMI 26.79 kg/m?? Allergies to medication: Patient has no known allergies. Current medications: Current Medications[2] Relevant Labs: Lab Results Component Value Date CREATININE 0.61 05/21/2025 EGFR 95.7 05/21/2025 INR 1.0 02/26/2025 Planned Sedation/Anesthesia: Moderate Airway assessment: normal Mallampati Score: II (hard and soft palate, upper portion of tonsils anduvula visible) ASA: ASA 3 - Patient with moderate systemic disease with functional limitations Directed physical examination: Vitals: 05/21/25 0806 BP: 113/73 Pulse: 90 Resp: Temp: 36.6 ??C (97.9 ??F) SpO2: 92% GENERAL: No acute distress EYES: No scleral icterus or conjunctivitis HENT: Atraumatic, normocephalic NECK: Supple RESP/CHEST: Symmetric expansion, non labored CARD: Regular rate and rhythm Extremities: No edema, cyanosis or clubbing; pedal pulses palpable +2 GI: No organomegaly or masses; soft, non-tender, non-distended SKIN: No rash, sores, lesions or subcutaneous nodules NEURO: Alert Benefits, risks and alternatives of procedure and planned sedation have been discussed with the patient and/or their customer service representative teller. All questions answered and they agree to proceed. [1] Social History Tobacco Use Smoking Status Never Smokeless Tobacco Never [2] Current Facility-Administered Medications Medication Dose Route Frequency Provider Last Rate Last Admin acetaminophen (Tylenol) tablet 1,000 mg 1,000 mg Oral q8h Remington Flaherty MD 1,000 mg at 05/21/25 0535 Adult 2-in-1 TPN 65 mL/hr Intravenous Continuous Katlyn Hopkins APRN 50 mL/hr at 05/21/25 0514 New Bag at 05/21/25 0514 aspirin chewable tablet 81 mg 81 mg Oral Daily [place] PETROGRAPHER 81 mg at 05/21/25 0821 glucose (Glutose) 40 % oral gel 15-30 grams of glucose 15-30 grams of glucose Sublingual q15 min PRN Tierney Sosa PA Or dextrose 10 % (D10W) bolus 125 mL 125 mL Intravenous q15 min PRN Tierney Sosa PA Or dextrose 10 % (D10W) bolus 250 mL 250 mL Intravenous q15 min PRN Tierney Sosa PA Or glucagon (human recombinant) injection 1 mg 1 mg Intramuscular q15 min PRN Tierney Sosa PA dronabinol (Marinol) capsule 2.5 mg 2.5 mg Oral BID AC Tierney Sosa PA 2.5 mg at 05/21/25 0821 [Held by provider] enoxaparin (Lovenox) syringe 40 mg 40 mg Subcutaneous Daily [place], APRN40 mg at 05/20/25 0958 fat emulsion fish/plant based (SMOFlipid) 20 % IV infusion 250 mL 250 mL Intravenous Every other day Hopkins Katlyn Clyde PETROGRAPHER 20.8 mL/hr at 05/21/25 0831 250 mL at 05/21/25 0831 insulin regular (HumuLIN R,NovoLIN R) 100 units/mL injection - Correction - Resistant Dose 0-10 Units Subcutaneous q6h KHUSHI Tierney Sosa PA 2 Units at 05/21/25 0040 lidocaine (Lidoderm) 5 % patch 1 patch 1 patch Apply externally q24h Yo Maria MD 1 patchat 05/20/25 2044 methocarbamol (Robaxin) tablet 1,000 mg 1,000 mg Oral 4x daily Tierney Sosa PA 1,000 mg at 05/21/25 0821 mupirocin (Bactroban) 2 % ointment 1 Application 1 Application Each Nostril BID Lokesh Anderson MD 1 Application at 05/21/25 0821 ondansetron ODT (Zofran-ODT) disintegrating tablet 4 mg 4 mg Oral q6h PRN Remington Flaherty MD 4 mg at 05/16/25 1701 Or ondansetron (Zofran) injection 4 mg 4 mg Intravenous q6h PRN Remington Flaherty MD 4 mg at 05/16/25 0952 Or ondansetron (Zofran) 4 MG/5ML solution 4 mg 4 mg Oral q6h PRN Remintgon Flaherty MD oxyCODONE (Roxicodone) immediate release tablet 5 mg 5 mg Oral q6h PRN Marques Au MD Or oxyCODONE (Roxicodone) immediate release tablet 10 mg 10 mg Oral q6h PRN Marques Au MD 10 mg at 05/21/25 0832 pantoprazole (Protonix) EC tablet 40 mg 40 mg Oral Daily [place] APRN 40 mg at 05/21/25 0821 piperacillin-tazobactam (Zosyn) 3.375 g in sodium chloride 0.9% 100 mL IVPB (vial adapter required)3.375 g Intravenous q6h Marques Au MD 36.7 mL/hr at 05/21/25 0821 3.375 g at 05/21/25 0821 sodium chloride 0.9 % flush 10 mL 10 mL Intravenous q12h Lokesh Anderson MD 10 mL at 05/20/25 1012 sodium chloride 0.9 % flush 10 mL 10 mL Intravenous q1h PRN Lokesh Anderson MD sodium chloride 0.9 % flush 10 mL 10 mL Intravenous q12h Lokesh Anderson MD sodium chloride 0.9 % flush 10 mL 10 mL Intravenous q1h PRN Lokesh Anderson MD sodium chloride 0.9 % flush 20 mL 20 mL Intravenous q1h PRN Lokesh Anderson MD sodium chloride 0.9 % flush 20 mL 20 mL Intravenous q1h PRN Lokesh Anderson MD * Care Plan - Luci Silvestre RN - 05/21/2025 1:41 AM EST Problem: Adult Inpatient Plan of Care Goal: Plan of Care Review Outcome: Ongoing, Progressing Flowsheets Taken 05/20/2025 1844 by Brittany Farmer RN Progress: no change Plan of Care Reviewed With: patient spouse Taken 05/15/2025 1113 by Petr Frey RN Outcome Evaluation: pain improving Goal: Patient-Specific Goal (Individualized) Outcome: Ongoing, Progressing Flowsheets (Taken 05/20/20251999) Patient/Family-Specific Goals (Include Timeframe): pt will remain free from fall or injury this shift. Individualized Care Needs: safety Anxieties, Fears or Concerns: none expressed Goal: Absence of Hospital-Acquired Illness or Injury Outcome: Ongoing, Progressing Intervention: Identify and Manage Fall Risk Flowsheets (Taken 05/20/20251999) Safety Promotion/Fall Prevention: activity supervised assistive device/personal items within reach clutter-free environment maintained fall prevention program maintained lighting adjusted mobility aid in reach nonskid shoes/slippers when out of bed room organization consistent safety round/check completed toileting scheduled Intervention: Prevent Skin Injury Flowsheets Taken 05/20/20251999 by Luci Silvestre RN Body Position: weight shifting Taken 05/20/20251843 by Brittany Farmer RN Skin Protection: skin sealant/moisture barrier applied Intervention: Prevent and Manage VTE (Venous Thromboembolism) Risk Flowsheets (Taken 05/20/2025 2321) VTE Prevention/Management: patient refused intervention education provided Intervention: Prevent Infection Flowsheets (Taken 05/20/20251843 by Brittany Farmer RN) Infection Prevention: hand hygiene promoted Goal: Optimal Comfort and Wellbeing Outcome: Ongoing, Progressing Intervention: Monitor Pain and Promote Comfort Flowsheets (Taken 05/21/2025 0045) Pain Management Interventions: medication (see MAR) pillow support provided position adjusted Intervention: Provide Person-Centered Care Flowsheets (Taken 05/20/20251843 by Brittany Farmer RN) Trust Relationship/Rapport: care explained questions encouraged Problem: Pain Acute Goal: Optimal Pain Control and Function Outcome: Ongoing, Progressing Intervention: Optimize Psychosocial Wellbeing Flowsheets Taken 05/20/20251843 by Brittany Farmer RN Supportive Measures: active listening utilized Taken 05/18/20252007 by Gerri Schaefer RN Diversional Activities: television smartphone Spiritual Activities Assistance: hope instilled affirmation provided Intervention: Develop Pain Management Plan Flowsheets (Taken 05/21/20255) Pain Management Interventions: medication (see MAR) pillow support provided position adjusted Intervention: Prevent or Manage Pain Flowsheets Taken 05/20/20251843 by Brittany Farmer RN Medication Review/Management: medications reviewed Taken 05/18/20252007 by Gerri Schaefer RN Sensory Stimulation Regulation: care clustered lighting decreased quiet environment promoted Bowel Elimination Promotion: ambulation promoted privacy promoted adequate fluid intake promoted Sleep/Rest Enhancement: awakenings minimized consistent schedule promoted noise level reduced regular sleep/rest pattern promoted relaxation techniques promoted room darkened Problem: Fall Injury Risk Goal: Absence of Fall and Fall-Related Injury Outcome: Ongoing, Progressing Intervention: Identify and Manage Contributors Flowsheets Taken 05/20/20251843 by Brittany Farmer RN Medication Review/Management: medications reviewed Taken 05/18/20252007 by Gerri Schaefer RN Self-Care Promotion: independence encouraged BADL personal objects within reach Intervention: Promote Injury-Free Environment Flowsheets (Taken 05/20/20251999) Safety Promotion/Fall Prevention: activity supervised assistive device/personal items within reach clutter-free environment maintained fall prevention program maintained lighting adjusted mobility aid in reach nonskid shoes/slippers when out of bed room organization consistent safety round/check completed toileting scheduled Problem: Skin Injury Risk Increased Goal: Skin Health and Integrity Outcome: Ongoing, Progressing Intervention: Optimize Skin Protection Flowsheets Taken 05/20/20251999 by Luci Silvestre RN Activity Management: activity adjusted per tolerance Taken 05/20/20251843 by Brittany Farmer RN Skin Protection: skin sealant/moisture barrier applied Taken 05/20/2025 by Sweetie Roberto RN Head of Bed (HOB) Positioning: HOB elevated Taken 05/18/20252007 by Gerri Schaefer RN Pressure Reduction Techniques: frequent weight shift encouraged heels elevated off bed pressure points protected Intervention: Promote and Optimize Oral Intake Flowsheets (Taken 05/18/20252007 by Gerri Schaefer RN) Oral Nutrition Promotion: nutrition counseling provided physical activity promoted rest periods promoted Nutrition Interventions: supplemental foods provided supplemental drinks provided Problem: Infection Goal: Absence of Infection Signs and Symptoms Outcome: Ongoing, Progressing Intervention: Prevent or Manage Infection Flowsheets Taken 05/20/20251999 by Luci Silvestre RN Isolation Precautions: precautions maintained protective Taken 05/20/20251843 by Brittany Farmer RN Infection Management: aseptic technique maintained * Care Plan - Brittany Farmer RN - 05/20/2025 6:53 PM EST Problem: Adult Inpatient Plan of Care Goal: Plan of Care Review Outcome: Ongoing, Progressing Flowsheets (Taken 05/20/20251843) Progress: no change Plan of Care Reviewed With: patient spouse Goal: Patient-Specific Goal (Individualized) Outcome: Ongoing, Progressing Flowsheets (Taken 05/20/2025 1100) Patient/Family-Specific Goals (Include Timeframe): pt will report tolerable level of pain control this shift Individualized Care Needs: pain management Anxieties, Fears or Concerns: starting TPN Goal: Absence of Hospital-Acquired Illness or Injury Outcome: Ongoing, Progressing Intervention: Identify and Manage Fall Risk Flowsheets (Taken 05/20/2025 1100) Safety Promotion/Fall Prevention: safety round/check completed Intervention: Prevent Skin Injury Flowsheets (Taken 05/20/20251843) Skin Protection: skin sealant/moisture barrier applied Intervention: Prevent Infection Flowsheets (Taken 05/20/20251843) Infection Prevention: hand hygiene promoted Goal: Optimal Comfort and Wellbeing Outcome: Ongoing, Progressing Intervention: Monitor Pain and Promote Comfort Flowsheets (Taken 05/20/2025 170) Pain Management Interventions: medication (see MAR) Intervention: Provide Person-Centered Care Flowsheets (Taken 05/20/20251843) Trust Relationship/Rapport: care explained questions encouraged Problem: Pain Acute Goal: Optimal Pain Control and Function Outcome: Ongoing, Progressing Intervention: Optimize Psychosocial Wellbeing Flowsheets (Taken 05/20/20251843) Supportive Measures: active listening utilized Intervention: Develop Pain Management Plan Flowsheets (Taken 05/20/20251702) Pain Management Interventions: medication (see MAR) Intervention: Prevent or Manage Pain Flowsheets (Taken 05/20/20251843) Medication Review/Management: medications reviewed Problem: Fall Injury Risk Goal: Absence of Fall and Fall-Related Injury Outcome: Ongoing, Progressing Intervention: Identify and Manage Contributors Flowsheets (Taken 05/20/20251843) Medication Review/Management: medications reviewed Intervention: Promote Injury-Free Environment Flowsheets (Taken 05/20/2025 1100) Safety Promotion/Fall Prevention: safety round/check completed Problem: Skin Injury Risk Increased Goal: Skin Health and Integrity Outcome: Ongoing, Progressing Intervention: Optimize Skin Protection Flowsheets (Taken 05/20/20251843) Activity Management: activity encouraged Skin Protection: skin sealant/moisture barrier applied Intervention: Promote and Optimize Oral Intake Note: Appetite stimulant provided - starting TPN tonight Problem: Infection Goal: Absence of Infection Signs and Symptoms Outcome: Ongoing, Progressing Intervention: Prevent or Manage Infection Flowsheets Taken 05/20/20251843 Infection Management: aseptic technique maintained Taken 05/20/2025 1100 Isolation Precautions: protective * Consults - Elias Garcia MD - 05/20/2025 6:37 PM ESTAssociated Order(s): IP CONSULT TO INTERVENTIONAL RADIOLOGY 05/20/25 Patient: Dot Dale Date of : 1955/69 y.o. Requesting Service: Surgical Oncology Chief complaint Pleural Effusion History Of Present Illness Dot Dale is a 69 y.o. female with history of IPMN s/p distal panc/spleen c/b post-op pancreatic leak requiring extended period with surgical drain in place (removed on 04/23). 05/20/25 CT abd/pelvdemonstrates loculated large left pleural effusion, increased in size with associated left basilar atelectasis from 05/17/25 CT abd/pelv. VIR consulted for left chest tube placement. History and admission information obtained from chart review of primary and consulting teams notation , as well as speaking directly to consulting team. The following portions of the chart were reviewed this encounter and updated as appropriate: Review of Systems: 14 point ROS negative except for above. Medical/Surgical/Social/Family History Past Medical History[1] Surgical History[2] Social History[3] Family History[4] Allergies Patient has no known allergies. Objective: All laboratory, images, tracings, and vital sign data are personally reviewed unless otherwise noted. VITALS: Temp: [36.6 ??C (97.9 ??F)-37.2 ??C (99 ??F)] 36.6 ??C (97.9 ??F) Heart Rate: [83-98] 86 Resp: [18-24] 20 BP: (117-137)/(63-84) 117/63 Weight: 69.6 kg (153 lb 7 oz) Body mass index is 26.72 kg/m??. I & O SUMMARY I/O last 3 completed shifts: In: 590 (8.4 mL/kg) [P.O.:260; IV Piggyback:330] Out: 1440 (20.4 mL/kg) [Urine:1425 (0.6 mL/kg/hr); Drains:15] Weight: 70.6 kg No intake/output data recorded. MEDICATIONS: Current Medications[5] Results Review I have reviewed the latest lab and imaging results. EXAM: GENERAL: No acute distress HENT: Normocephalic and atraumatic PULMONARY: normal respiratory effort, symmetric chest rise CARDIOVASCULAR: Warm, well perfused ABDOMINAL: Soft, non peritonitic Assessment & Plan: Assessment & Plan Peripancreatic fluid collection Abdominal pain - INR ??, PTT ??, Plt 479 (H) - Personally reviewed 05/20/25 CT abd/pelv demonstrates loculated large left pleural effusion, increased in size with associated left basilar atelectasis from 05/17/25 CT abd/pelv. - VSS, Afebrile PLAN: - Will tentatively plan to perform CT guided chest tube placement 05/21, pending discussion at morning rounds. - Will consent prior to procedure - NPO at 0000, hold anticoagulation - Requesting team responsible for placing lab analysis orders. Case pending discussion with attending physician, Dr. Marie. Thank you for allowing us to participate in the care of this patient. Elias Garcia MD Interventional Radiology [phone] [1] Past Medical History: Diagnosis Date Cranial nerve III palsy High cholesterol Pancreatic cyst Unspecified injury of unspecified wrist, hand and finger(s), initial encounter Hand injury [2] Past Surgical History: Procedure Laterality Date CYSTOSCOPY ENDOSCOPY EXTERNAL - ECG EXTERNAL - ECG [3] Social History Tobacco Use Smoking status: Never Smokeless tobacco: Never Vaping Use Vaping status: Never Used Substance Use Topics Alcohol use: Never Drug use: Never [4] Family History Problem Relation Name Age of Onset Cancer Mother Anesthesia problems Neg Hx Malig Hyperthermia Neg Hx [5] Current Facility-Administered Medications: acetaminophen (Tylenol) tablet 1,000 mg, 1,000 mg, Oral, q8h, Remington Flaherty MD, 1,000 mg at 05/19/25 0526 Adult 2-in-1 TPN, 65 mL/hr, Intravenous, Continuous, Katlyn Hopkins H, PETROGRAPHER aspirin chewable tablet 81 mg, 81 mg, Oral, Daily, [place] PETROGRAPHER, 81 mg at 05/20/25 0958 glucose (Glutose) 40 % oral gel 15-30 grams of glucose, 15-30 grams of glucose, Sublingual, q15 minPRN OR dextrose 10 % (D10W) bolus 125 mL, 125 mL, Intravenous, q15 min PRN OR dextrose 10 %(D10W) bolus 250 mL, 250 mL, Intravenous, q15 min PRN OR glucagon (human recombinant) injection1 mg, 1 mg, Intramuscular, q15 min PRN, Tierney Sosa PA dronabinol (Marinol) capsule 2.5 mg, 2.5 mg, Oral, BID AC, Tierney Sosa PA, 2.5 mg at 05/20/25 1701 [Held by provider] enoxaparin (Lovenox) syringe 40 mg, 40 mg, Subcutaneous, Daily, [place] PETROGRAPHER, 40 mg at 05/20/25 0958 [START ON 05/21/2025] fat emulsion fish/plant based (SMOFlipid) 20 % IV infusion 250 mL, 250 mL, Intravenous, Every other day, Katlyn Hopkins APRN [START ON 05/21/2025] insulin regular (HumuLIN R,NovoLIN R) 100 units/mL injection - Correction - Resistant Dose, 0-10 Units, Subcutaneous, q6h [facility], Tierney Sosa PA lidocaine (Lidoderm) 5 % patch 1 patch, 1 patch, Apply externally, q24h, Yo Maria MD, 1 patch at 05/19/25 2041 methocarbamol (Robaxin) tablet 1,000 mg, 1,000 mg, Oral, 4x daily, Tierney Sosa PA, 1,000 mg at107/20/24 1300 mupirocin (Bactroban) 2 % ointment 1 Application, 1 Application, Each Nostril, BID, Lokesh Anderson MD, 1 Application at 05/20/25 0959 ondansetron ODT (Zofran-ODT) disintegrating tablet 4 mg, 4 mg, Oral, q6h PRN, 4 mg at 05/16/25 1701OR ondansetron (Zofran) injection 4 mg, 4 mg, Intravenous, q6h PRN, 4 mg at 05/16/25 0952 OR ondansetron (Zofran) 4 MG/5ML solution 4 mg, 4 mg, Oral, q6h PRN, Remington Flaherty MD oxyCODONE (Roxicodone) immediate release tablet 5 mg, 5 mg, Oral, q6h PRN OR oxyCODONE (Roxicodone) immediate release tablet 10 mg, 10 mg, Oral, q6h PRN, Marques Au MD, 10 mg at 703 pantoprazole (Protonix) EC tablet 40 mg, 40 mg, Oral, Daily, [place] PETROGRAPHER, 40 mg at 05/20/25 0958 piperacillin-tazobactam (Zosyn) 3.375 g in sodium chloride 0.9% 100 mL IVPB (vial adapter required), 3.375 g, Intravenous, q6h, Marques Au MD, Last Rate: 36.7 mL/hr at 05/20/25 1300, 3.375 gat 05/20/25 1300 sodium chloride 0.9 % flush 10 mL, 10 mL, Intravenous, q12h, Lokesh Anderson MD, 10 mL at 05/20/25 1012 sodium chloride 0.9 % flush 10 mL, 10 mL, Intravenous, q1h PRN, Lokesh Anderson MD sodium chloride 0.9 % flush 10 mL, 10 mL, Intravenous, q12h, Lokesh Anderson MD sodium chloride 0.9 % flush 10 mL, 10 mL, Intravenous, q1h PRN, Lokesh Anderson MD sodium chloride 0.9 % flush 20 mL, 20 mL, Intravenous, q1h PRN, Lokesh Anderson MD sodium chloride 0.9 % flush 20 mL, 20 mL, Intravenous, q1h PRN, Lokesh Anderson MD Cosigned by Kelly Marie MD at 05/21/2025 10:18 AM EST Associated attestation - Kelly Marie MD - 05/21/2025 10:18 AM EST I discussed the case with the resident/fellow and agree with the findings and plan as documented. * Progress Notes - Katie Pena RN - 05/20/2025 3:00 PM EST Case Management Adult Progress Note Dot Dale 69 y.o. female CSN: [id number] Admission: 05/13/2025 6:45 PM Primary Problem: Peripancreatic fluid collection Anticipated Discharge Date: 05/23 Has Discharge Plans Changed? Yes home with tpn and home health Medicare Second Notice: Housing Circumstances: Not Applicable Housing Circumstances Action Taken: Medically Ready for Discharge: No Additional Comments POC reviewed with primary team. Refer to primary team's progress note for details. DC plan : DC home ith spouse. Accepted by [facility] for home TPN and [place] [facility] for PT OT SN. Pt not medically ready to d\c. DC plan of care ongoing Katie Pena RN * Progress Notes - Teri Weiner - 05/20/2025 2:06 PM EST Physical Therapy Evaluation Patient Name: Dot Dale Today's Date: 05/20/2025 Total Treatment Time: 28 minutes PT Discharge Recommendations: Home with 24 hour assistance, Home health PT, Home health OT Equipment Recommended: Patient owns appropriate equipment History Dot Dale is 69 y.o. female admitted 05/13/2025 for work-up of Peripancreatic fluid collection. Problem List Active Hospital Problems Diagnosis Date Noted Abdominal pain 05/20/2025 Peripancreatic fluid collection 05/14/2025 Procedures Past Medical History Patient has a past medical history of Cranial nerve III palsy, High cholesterol, Pancreatic cyst, and Unspecified injury of unspecified wrist, hand and finger(s), initial encounter. Past Surgical History Patient has a past surgical history that includes External - ECG; External - ECG; endoscopy; and Cystoscopy. Precautions Medical Precautions: Fall precautions Subjective Patient agreeable to PT session. Participants in Care Family/Caregiver Present: Yes Family/Caregiver: Spouse Tie Cutter: Not Applicable Presentation Oxygen Therapy: None (Room air) Lines and Tubes: Telemetry PICC Double Lumen 05/20/25 Right Brachial vein (Active) Pre-Session: Supine, Head of bed elevated, Lines intact Pre-Session Comments: RN agreeable to initial evaluation. Post-Session: Lines intact, Call light in reach, RN notified (Sitting in transport chair) Post-Session Comments: Patient left with transport staff for CT scan. RN aware. Patient left with all needs in reach. Home Living/Set-up Lives With: Spouse, Adult, Daughter Home Type: House Home Adaptive Equipment: shower chair, Rolling walker, Quad cane, Bedside commode Home Layout: One level, Stairs to enter with rails Number of Stairs: 5 Bathroom: Tub/Shower: Tub/Shower combo, Walk-in shower, Shower chair, Grab bars, Handheld shower head Bathroom: Toilet: Standard, Tall Bathroom: Accessibility: Accessible, Accessible via walker Home Living Comments: Patient's spouse reported that she will have 24/7-hour assistance as/if needed at time of d/c. Patient reported she was getting nursing x2/week. Prior Level of Function Receives Help From: Spouse, Daughter Level of Mobility: Ambulatory- household only Mobility [place]: Independent gait with device (RW) History of Falls: No ADL Performance: Needs assistance Bathing: Needs device and assist (to wash back and hair) Upper Body Dressing: Independent Lower Body Dressing: Independent Grooming: Independent Toileting: Independent Eating: Independent Home Management Skills: Needs assist Patient/Family Goals To decrease pain and return home Objective Pain Patient reports 3/10 pain in abdomen at rest > 5/10 pain during/after mobility. Patient positioned for comfort in transport chair at conclusion of session. Delirium Screening RASS: Alert and calm Confusion Assessment Method-ICU (CAM-ICU/PCAM-ICU) Feature 1: Acute Onset or Fluctuating Course: Negative Feature 2: Inattention: Negative Feature 3: Altered Level of Consciousness: Negative Feature 4: Disorganized Thinking: Negative Overall CAM-ICU/PCAM-ICU: Negative Cognition Overall Cognitive Status: Within Functional Limits Arousal/Alertness: Appropriate responses to stimuli Mood/Behavior: Alert, Flat affect Single Step Commands: Consistently, 100% of the time Multi-Step Commands: Consistently, 100% of the time Method of Communication: Verbal Vision - Basic Assessment Patient Visual Report: Patient reported no concerns regarding vision at this time. Right Upper Extremity Examination RUE Assessment: Within Functional Limits Manual Muscle Testing - RUE: (Grossly 3/5; no formal resistance applied secondary to abdominal and rib pain) Sensation Light Touch: Right Upper Extremity: Intact Left Upper Extremity Examination LUE ROM Assessment LUE Assessment: Within Functional Limits Manual Muscle Testing - LUE Manual Muscle Testing - LUE: (Grossly 3/5; no formal resistance applied secondary to abdominal and rib pain) Sensation Light Touch: Left Upper Extremity: Intact Right Lower Extremity Examination RLE ROM Assessment RLE Assessment: Within Functional Limits Manual Muscle Testing - RLE Manual Muscle Testing - RLE: (Grossly 3/5; no formal resistance applied secondary to abdominal pain) Sensation Light Touch: Right Lower Extremity: Intact Left Lower Extremity Examination LLE Assessment: Within Functional Limits Manual Muscle Testing: (Grossly 3/5; no formal resistance applied secondary to abdominal pain) Sensation Light Touch: Left Lower Extremity: Intact Bed Mobility Bed Mobility Interventions: PT instructed patient on the log roll technique to mitigate abdominal pain during bed mobility. PT provided verbal and tactile cues to flex LE into hook-lying and reach contralateral UE across midline to bed rail to facilitate rolling prior to sitting upright. Bed Mobility Exam: Rolling/Turning Level of [place]: Contact guard (to the right) Physical/Nonphysical Assist: Set-up required, Verbal Cues, Nonverbal cues (demo/gestures), Minimal cues, 1 person + 1 person to manage equipment Bed Mobility Exam: Scooting/Bridging Level of [place]: Contact guard (anteriorly to EOB) Physical/Nonphysical Assist: Set-up required, Verbal Cues, Nonverbal cues (demo/gestures), Minimal cues, 1 person + 1 person to manage equipment Bed Mobility Exam: Supine to Sit Level of [place]: Contact guard (to the right) Physical/Nonphysical Assist: Set-up required, Verbal Cues, Nonverbal cues (demo/gestures), Minimal cues, HOB elevated, 1 person + 1 person to manage equipment Transfers Transfer Interventions: PT provided verbal cues to keep one UE on a stable surface prior to transitional movements for safety as patient attempting to pull on AD with bilateral UE's. Cues also provided to reach back to surface prior to sitting for safety and eccentric control. Transfer Exam: Sit to stand Level of [place]: Contact guard Physical/Nonphysical Assist: Set-up required, Verbal Cues, Nonverbal cues (demo/gestures), Minimal cues, 1 person + 1 person to manage equipment Assistive Device: Walker, rolling Transfer Exam: Stand to Sit Level of [place]: Contact guard Physical/Nonphysical Assist: Verbal Cues, Nonverbal cues (demo/gestures), Minimal cues, 1 person + 1 person to manage equipment Assistive Device: Walker, rolling Toilet Transfer Type of Transfer: Ambulation, To toilet Ambulation Device: Rolling walker Assistance: Contact guard assist, Minimal verbal cues, Minimal tactile cues, Additional assist needed for line management (increased time) Distance : 140' + 15' Ambulation Comments: Patient ambulates with decreased lilli, decreased bilateral step length, andtruncal rigidity secondary to abdominal pain. Ambulation distance limited by abdominal pain at thistime. PT provided verbal cues for safe AD proximity and safety with line management. Balance Postural Appearance Posture: Rounded shoulders Static Sitting Balance Static Sitting-Balance Support: Right upper extremity support, Left upper extremity support, Feet supported Static Sitting-Level of Assistance: Supervision Dynamic Sitting Balance Dynamic Sitting-Balance Support: No upper extremity support, Feet supported Level of Assistance: Standby assisst Static Standing Balance Static Standing-Balance Support: Right upper extremity support, Left upper extremity support (on RW) Static Standing-Level of Assistance: Contact guard Dynamic Standing Balance Dynamic Standing-Balance Support: Right upper extremity support, Left upper extremity support (on RW) Dynamic Standing Level of Assistance: Contact guard Therapeutic Activity (18 minutes) Patient participated in therapeutic activity focused on increasing tolerance to functional tasks and increasing independence with bed mobility, transfers, and patient education regarding HEP and mobility. PT provided skilled management of medical lines/tubes and environmental set-up to ensure safety and reduce fall risk during with mobility. Patient requesting to utilize commode, + void. PT educated patient on continued mobility throughout remainder of inpatient stay to maintain functional endurance/strength. Standardized Assessments [facility] 6-Clicks Mobility Assessment Difficulty patient has turning over in bed (including adjusting bedclothes, sheets, and blankets)?:A little Difficulty patient has sitting down on and standing up from a chair with arms (wheelchair, bedside commode, etc.)?: A little Difficulty patient has moving from lying on back to sitting on the side of the bed?: A little How much help does the patient need moving to and from a bed to a chair (including a wheelchair)?: A little How much help does the patient need to walk in hospital room?: A little How much help does the patient need climbing 3-5 steps with a railing?: A little [facility] 6-Clicks Mobility Assessment Total : 18 Assessment Patient demonstrates impairments listed below limiting functional mobility and participation in ADL's. Patient most limited by abdominal pain at this time. Patient has good social support from her spouse upon discharge home. Patient may continue to benefit from skilled PT to address patient's impairments, reduce patient's participation restrictions and activity limitations, and maximize independence. Impairments: Decreased endurance, ventilation, and/or gas exchange, Impaired functional mobility/transfers, Decreased strength, Impaired balance, Impaired gait dynamics/performance, Pain, Impaired postural/trunk control Activity Limitations: Inability to complete ADLs independently, Inability to ambulate community distances, Inability to ambulate household distances, Inability to transfer independently, Inability toambulate independently Participation Restrictions: Self-care, Home management, Community leisure Activity Tolerance: Tolerates 10 - 20 min activity with multiple rests Evaluation/Treatment Tolerance: Patient limited by pain Diagnosis: Decreased functional mobility Rehab Potential: Good, to achieve stated therapy goals Eval Complexity History Profile: 3 or more personal factors and/or comorbidities Clinical Presentation: Evolving clinical presentation with changing characteristics Clinical Decision Making: Moderate complexity PT Recommendations Discharge Destination: Home with 24 hour assistance, Home health PT, Home health OT Discharge Equipment: Patient owns appropriate equipment Plan Planned PT Interventions Balance training, Bed mobility training, Gait training, Transfer training, Strengthening, ROM, Functional Mobility PT Frequency 2 - 5 times per week PT Duration 2 weeks Goals PT GOAL DETAILS Time Frame PT Goal 1: Patient will demonstrate supine <> sit independently from a flat surface 2 weeks PT Goal 2: Patient will demonstrate STS modified independently with least restrictive assistive device 2 weeks PT Goal 3: Patient will ambulate 300 feet modified independently with least restrictive assistive device 2 weeks PT Goal 4: Patient will navigate 5 stairs with SBA and UE assist on hand rail 2 weeks Written by Teri Weiner on 05/20/25 at 2:51 PM. * Progress Notes - Tabitha Pena - 05/20/2025 2:05 PM EST Occupational Therapy Evaluation Patient Name: Dot Dale Today's Date: 05/20/2025 Total Treatment Time: 27 minutes OT Discharge Recommendations: Home with 24 hour assistance, Home health OT, Home health PT Equipment Recommended: Patient owns appropriate equipment History Dot Dale is 69 y.o. female admitted 05/13/2025 for work-up of Peripancreatic fluid collection. Hospital Course 1. Abdominal pain, unspecified abdominal location 2. Nausea and vomiting, unspecified vomiting type 3. Peripancreatic fluid collection 4. IPMN (intraductal papillary mucinous neoplasm) 5. Pituitary adenoma (CMS/HCC) Past Medical History Patient has a past medical history of Cranial nerve III palsy, High cholesterol, Pancreatic cyst, and Unspecified injury of unspecified wrist, hand and finger(s), initial encounter. Past Surgical History Patient has a past surgical history that includes External - ECG; External - ECG; endoscopy; and Cystoscopy. Precautions Medical Precautions: Fall precautions Subjective Patient agreeable to OT initial evaluation/session. Participants in Care Family/Caregiver Present: Yes Family/Caregiver: Spouse Tie Cutter: Not Applicable Presentation Oxygen Therapy: None (Room air) Lines and Tubes: Telemetry PICC Double Lumen 05/20/25 Right Brachial vein (Active) Pre-Session: Supine, Head of bed elevated, Lines intact Pre-Session Comments: RN agreeable to initial evaluation. Post-Session: Sitting in chair, Lines intact, Call light in reach, RN notified Post-Session Comments: Patient left with transport staff for CT scan. RN aware. Patient left with all needs in reach. Home Living/Set-Up Lives With: Spouse, Adult, Daughter Home Type: House Home Adaptive Equipment: shower chair, Rolling walker, Quad cane, Bedside commode Home Layout: One level, Stairs to enter with rails Number of Stairs: 5 Bathroom: Tub/Shower: Tub/Shower combo, Walk-in shower, Shower chair, Grab bars, Handheld shower head Bathroom: Toilet: Standard, Tall Bathroom: Accessibility: Accessible, Accessible via walker Home Living Comments: Patient's spouse reported that she will have 24/7-hour assistance as/if needed at time of d/c. Patient reported she was getting nursing x2/week. Prior Level of Function Receives Help From: Spouse, Daughter Level of Mobility: Ambulatory- household only Mobility [place]: Independent gait with device (RW) History of Falls: No ADL Performance: Needs assistance Bathing: Needs device and assist (to wash back and hair) Upper Body Dressing: Independent Lower Body Dressing: Independent Grooming: Independent Toileting: Independent Eating: Independent Home Management Skills: Needs assist Patient/Family Goals Patient would like to return home. Objective Pain Patient reported 3/10 abdominal and rib pain that increased to a 5/10 after presented mobility/self-cares. RN aware. Patient positioned for comfort/pressure relief with pillow supports and all needs in reach at end of session. Delirium Screening RASS: Alert and calm Confusion Assessment Method-ICU (CAM-ICU/PCAM-ICU) Feature 1: Acute Onset or Fluctuating Course: Negative Feature 2: Inattention: Negative Feature 3: Altered Level of Consciousness: Negative Feature 4: Disorganized Thinking: Negative Overall CAM-ICU/PCAM-ICU: Negative Cognition Overall Cognitive Status: Within Functional Limits Arousal/Alertness: Appropriate responses to stimuli Mood/Behavior: Alert, Flat affect Orientation Level: Oriented X4 Single Step Commands: Consistently, 100% of the time Multi-Step Commands: Consistently, 100% of the time Method of Communication: Verbal Safety Judgment: Good awareness of safety precautions Awareness of Errors: Good awareness of errors made Deficit Awareness: Fully aware of deficits Attention Span: Appears intact, Attends with cues to redirect Problem Solving: Able to problem solve independently Perseveration: Not present Vision - Assessment Patient Visual Report: Patient reported no concerns regarding vision at this time. Visual Screen Results: Appears intact. Right Upper Extremity Examination RUE Assessment: Within Functional Limits Manual Muscle Testing - RUE: (Grossly 3/5; no formal resistance applied secondary to abdominal and rib pain) Light Touch: Right Upper Extremity: Intact Left Upper Extremity Examination LUE Assessment: Within Functional Limits Manual Muscle Testing - LUE: (Grossly 3/5; no formal resistance applied secondary to abdominal and rib pain) Light Touch: Left Upper Extremity: Intact Right Lower Extremity Examination RLE Assessment: Within Functional Limits Manual Muscle Testing - RLE: (Grossly 3/5; no formal resistance applied secondary to abdominal pain) Light Touch: Right Lower Extremity: Intact Left Lower Extremity Examination LLE Assessment: Within Functional Limits Manual Muscle Testing - LLE: (Grossly 3/5; no formal resistance applied secondary to abdominal pain) Light Touch: Left Lower Extremity: Intact Perception/Coordination Perception Initiation: Appears intact Motor Planning: Appears intact Coordination Movements are Fluid and Coordinated: Yes Fine Motor Coordination Examination Left Hand, Manipulation of Objects: Normal performance Right Hand, Manipulation of Objects: Normal performance Bed Mobility Bed Mobility Exam: Rolling/Turning Level of Gl[place]ock: Contact guard (to the right) Physical/Nonphysical Assist: Set-up required, Verbal Cues, Nonverbal cues (demo/gestures), Minimal cues, 1 person + 1 person to manage equipment Assistive Device: Bed rails Bed Mobility Exam: Scooting/Bridging Level of [place]: Contact guard (anteriorly to EOB) Physical/Nonphysical Assist: Set-up required, Verbal Cues, Nonverbal cues (demo/gestures), Minimal cues, 1 person + 1 person to manage equipment Assistive Device: Bed rails Bed Mobility Exam: Supine to Sit Level of [place]: Contact guard (to the right) Physical/Nonphysical Assist: Set-up required, Verbal Cues, Nonverbal cues (demo/gestures), Minimal cues, HOB elevated, 1 person + 1 person to manage equipment Assistive Device: Bed rails Transfers Transfer Exam: Sit to stand Level of Gl[place]: Contact guard Physical/Nonphysical Assist: Set-up required, Verbal Cues, Nonverbal cues (demo/gestures), Minimal cues, 1 person + 1 person to manage equipment Assistive Device: Walker, rolling Transfer Exam: Stand to Sit Level of [place]: Contact guard Physical/Nonphysical Assist: Verbal Cues, Nonverbal cues (demo/gestures), Minimal cues, 1 person + 1 person to manage equipment Assistive Device: Walker, rolling Toilet Transfer Level of [place]: Contact guard Physical/Nonphysical Assist: Verbal Cues, Nonverbal cues (demo/gestures), Minimal cues, 1 person + 1 person to manage equipment Type of Transfer: Ambulation, To toilet Assistive Device: Walker, rolling Functional Mobility Device: Rolling walker Assistance: Contact guard assist, Minimal verbal cues, Minimal tactile cues, Additional assist needed for line management (increased time) Distance : 140' + 15' Balance Postural Appearance Posture: Rounded shoulders Static Sitting Balance Static Sitting-Balance Support: Right upper extremity support, Left upper extremity support, Feet supported Static Sitting-Level of Assistance: Supervision Dynamic Sitting Balance Dynamic Sitting-Balance Support: No upper extremity support, Feet supported Level of Assistance: Standby assisst Static Standing Balance Static Standing-Balance Support: Right upper extremity support, Left upper extremity support (on RW) Static Standing-Level of Assistance: Contact guard Dynamic Standing Balance Dynamic Standing-Balance Support: Right upper extremity support, Left upper extremity support (on RW) Dynamic Standing Level of Assistance: Contact guard Self-Care Interventions Self Care/Home Management (ADLs) Time Entry: 12 Self_Care Interventions: In addition to OT initial evaluation (15 minutes), OT facilitated patient engagement in sequential task training emphasizing functional transitions required for increased performance in higher level BADLs/IADLs. Refer to the above sections for patient performance and levelsof assistance required for aspects of mobility completed on this date. Of note, increased time required for: appropriate room set-up via environmental modifications to optimize patient safety and accessibility to all areas of treatment spaces, skilled management of medical lines/tubes, vital monitoring, task modification/grading activity to provide functional challenge and promote success, provision of pacing/rest breaks, toileting intervention, BADL retraining, verbal and tactile cues to facilitate sequencing and proper body mechanics during functional tasks, patient education, caregiver/family education, and staff education (RN/Tech/TEAM in regards to patient s afety/vitals/mobility during session). Patient Education: To optimize patient safety while inpatient and at time of discharge, OT providedpatient and caregiver/family education regarding: role of OT within POC, progression of therapy, discharge recommendations, precautions, BADL retraining, work simplification, energy conservation, adaptive techniques, adaptive equipment, fall prevention, home management, bathroom safety, and caregiver safety. Of note, the patient and caregiver/family verbalized understanding. Patient, however, would continue to benefit from additional education to promote increased carryover of provided information. Refer to below sections for additional self-care interventions completed during session. Feeding Feeding Level of Assistance: Independent Feeding Interventions: Anticipated level of assistance/performance per clinical judgement. Grooming Grooming Level of Assistance: Setup, SBA Grooming Where Assessed: Chair level Grooming Interventions: Therapist provided set-up assist for hand firmware manager in reach. Patient completed hand hygiene with SBA in unsupported sitting position. Bathing UE Bathing Level of Assistance: Minimum assistance LE Bathing Level of Assistance: Minimum assistance Bathing Interventions: Anticipated level of assistance/performance per clinical judgement. Patient requires some assistance at baseline to wash her hair and back while utilizing a shower chair. Patient reported that she will have necessary assistance as/if needed at time of d/c for bathing/showering routines. UE Dressing UE Dressing Level of Assistance: Contact guard UE Dressing Where Assessed: (Standing Position) UE Dressing Interventions: Patient adjusted gown in standing position with CGA to maintain balance with use of RW. Lower Extremity Dressing Pants Level of Assistance: Minimum assistance Sock Level of Assistance: Minimum assistance Shoe Level of Assistance: Minimum assistance LE Dressing Interventions: Anticipated level of assistance/performance per clinical judgement. Toileting Toileting Level of Assistance: Contact guard Where Assessed: Toilet Toileting Interventions: OT engaged patient in toileting routine in which patient required CGA to navigate < > bathroom (as well as larger household distances; 140' + 15') with use of RW, CGA to transfer < > standard toilet with RW, CGA to manage clothing, and SBA to complete lacey-care hygiene after continent voiding. No LOB noted within presented task. Of note, increased time requried to engage in toileting routine d/t decrease pace of task completion. Standardized Assessments [facility] 6-Click Daily Activities Help from Other: Don/Doff Regular Lower Body Clothings: Little Help From Other: Bathing: Little Help From Other: Toileting: Little Help From Other: Don/Doff Upper Body Clothings: Little Help From Other: Grooming: None Help From Other: Eating Meals: None [facility] 6 Click - Daily Activities Score: 20/24 [facility] Scoring Interpretation: Scores greater than 20.5 suggest ability to perform daily self-cares independently and may indicate a high suitability for a home/self-care discharge. Comment: OT anticipates that patient will progress well while inpatient to return home safely with 24/7-hour assistance + HH OT/PT when deemed medically appropriate. Assessment Patient tolerated today's initial evaluation/session well with rest breaks as needed and stable vitals. On this date, the patient required grossly CGA for aspects of mobility with increased time (assist for line management) and utilization of RW. Varied levels of assistance required/anticipated forpresented self-cares; refer to self-care section for additional details. Patient presented with impaired occupational performances within completing BADL/IADL safely, functional transfers, functionalmobility, balance, activity tolerance, strength, and self-limiting factors including pain and fatigue impacting their current level of performance and ability to engage in occupations with full indepe ndence. Despite these impairments, patient is appropriate to return home with 24/7-hour assistance + OT/PT as OT anticipates that the patient will progress well while inpatient. Patient reported having necessary assistance available as/if needed at time of d/c. While inpatient, patient would continue to benefit from skilled OT services to promote increased independence within desired occupations, return to prior level of function, decrease caregiver stress, reduce risk of falls/potential readmission, and to promote a safe discharge when medically appropriate. OT Findings: Impaired ADL performance, Impaired IADL performance, Decreased upper extremity strength, Decreased endurance/ventilation/gas exchange, Impaired functional mobility, Impaired postural/trunk control, Impaired balance Evaluation/Treatment Tolerance: Patient limited by fatigue, Patient limited by pain Rehab Potential: Good, to achieve stated therapy goals Barriers to Discharge: Comorbidities Demonstrates Need for Referral to Another Service: Social work Eval Complexity Occupational Profile: Expanded review of medical/therapy records and additional review of physical,cognitive, or psychosocial history Performance Deficits: Activities of daily living (ADLs), Instrumental activities of daily living (IADLs), Leisure, Body functions, Body structures, Habits, Routines, Roles, Personal, Physical Clinical Decision Making: Moderate Overall Eval complexity: Moderate OT Recommendations Discharge Destination: Home with 24 hour assistance, Home health OT, Home health PT Discharge Equipment: Patient owns appropriate equipment Plan Continue with established OT plan of care 2-5/wk to progress towards OT POC goals. Planned OT Interventions ADL retraining, IADL retraining, Balance training, Bed mobility Training, Motor coordination training, Neuromuscular re-education, Strengthening, Transfer training, Functional mobility, Caregiver education OT Frequency 2 - 5 times per week OT Duration 2 weeks Goals OT GOAL DETAILS Time Frame OT Goal 1: Patient/Family/Caregiver will be independent in bilateral upper extremity home exercise program to promote increased strength/activity tolerance required for engagement in higher level self-cares/mobility. 2 weeks OT Goal 2: Patient will complete 2-step grooming routine in standing position with modified independence (AE as needed). 2 weeks OT Goal 3: Patient will complete total body dressing with modified independence (AE as needed). 2 weeks OT Goal 4: Patient will complete toileting routine (navigation < > bathroom, transfer < > standard toilet, manage clothing, and complete lacey-care hygiene) with modified independence (AE as needed). 2 weeks Written by Tabitha Pena on 05/20/25 at 3:01 PM. * Progress Notes - Josee Hull, PharmD - 05/20/2025 11:26 AM EST Images from the original note were not included. Pharmacist TPN Progress Note Patient: Dot Dale Age: 69 y.o. Admission Date: [id number] Subjective/Objective/Hospital Course: 69 y.o. 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 Patient has been on TPN previously (~03/30-04/25). 05/20: Patient agreeable to PICC and TPN, switched appetite stimulants (megestrol --> dronabinol), CT scan pending Problem List[1] Past Medical History[2] Surgical History[3] Allergies: Patient has no known allergies. LABS: Results from last 7 days Lab Units 05/20/25 0132 05/19/25 0422 05/18/25 0433 05/17/25 0003 05/16/25 0020 05/15/25 0218 05/13/25 1844 GLUCOSE mg/dL 128* 132* 134* 123* 110* 160* 146* BUN mg/dL 9 8 6* 8 11 12 16 CREATININE mg/dL 0.53* 0.47* 0.54* 0.54* 0.55* 0.72 0.70 SODIUM mmol/L 136 136 139 139 137 136 129* POTASSIUM mmol/L 4.6 3.5* 3.9 3.7 3.2* 3.2* 3.3* CHLORIDE mmol/L 104 106 108* 106 104 102 95* CO2 mmol/L 18* 21* 21* 21* 25 24 25 CALCIUM mg/dL 8.0* 7.9* 7.8* 7.7* 7.7* 8.0* 8.7* PHOSPHORUS mg/dL 3.2 2.6 2.5 3.4 1.8* 3.3 -- MAGNESIUM mg/dL 2.0 1.7* 2.1 1.7* 2.0 1.4* -- Results from last 7 days Lab Units 05/20/252 05/19/252 05/18/25 0433 05/17/25 0003 05/16/25 0020 05/15/258 05/13/25 1844 WBC 10*3/uL 18.96* 10.29 9.04 10.73* 14.66* 18.33* 20.00* HEMOGLOBIN g/dL 13.1 11.3 10.9* 11.2 11.0* 11.0* 12.2 HEMATOCRIT % 39.1 33.6* 32.1* 33.3* 33.1* 32.1* 34.7 PLATELETS 10*3/uL 479* 380* 355 329 301 268 298 Results from last 7 days Lab Units 05/20/2513105/19/252 05/18/253 05/17/25 0003 05/16/25 0020 05/15/258 05/13/25 1844 ALT U/L 11 14 13 10 16 18 24 AST U/L 21 27 33 25 30 31 39* ALKALINE PHOSPHATASE U/L 94 92 97 100 106 102 114 BILIRUBIN TOTAL mg/dL 0.5 0.3 0.4 0.4 0.5 0.7 1.1 ALBUMIN g/dL 2.7* 2.4* 2.4* 2.3* 2.4* 2.5* 3.1* Nutrition Labs: Lab Results Component Value Date TRIG 115 03/29/2025 BILITOT 0.5 05/20/2025 ALBUMIN 2.7 (L) 05/20/2025 PREALBUMIN 3.3 (L) 05/16/2025 HGBA1C 5.4 12/05/2020 CRP 1.5 12/07/2020 Microbiology Results Procedure Component Value Units Date/Time Blood Culture (Aerobic/Anaerobet Set) [[id number]] Collected: 05/14/25 0232 Order Status: Completed Specimen: Blood from Wrist, Left Updated: 05/19/25 06 Culture No growth at day 5 Narrative: Low blood volume submitted, results may be compromised Blood Culture (Aerobic/Anaerobet Set) [[id number]] Collected: 05/14/25 0232 Order Status: Completed Specimen: Blood from Wrist, Right Updated: 05/19/25 0551 Culture No growth at day 5 Narrative: Low blood volume submitted, results may be compromised Body Fluid Culture and Gram Stain [[id number]] (Abnormal) (Susceptibility) Collected: 05/14/25 1647 Order Status: Completed Specimen: Body Fluid (specify site): Updated: 05/18/25 1436 Culture Heavy Growth 4+ Streptococcus constellatus Comment: This isolate has been identified using the FDA Approved [employer] [place] System The organism value for this result has been updated. These results have been appended to the previously preliminary verified report. Edited result: Previously reported as Streptococcus species on 05/15/2025 at 1553 EST. 1+ Haemophilus parainfluenzae Comment: This isolate has been identified using the FDA Approved [employer] [place] System The organism value for this result has been updated. These results have been appended to the previously preliminary verified report. Gram Stain Result Numerous Gram positive cocci in pairs and chains Numerous Gram negative rods Numerous Polymorphonuclear leukocytes Susceptibility Streptococcus constellatus ETEST Penicillin G 0.094 Susceptible Susceptibility Haemophilus parainfluenzae Method Not Specified Beta Lactamase Negative Negative Susceptibility Comments Haemophilus parainfluenzae This organism is predictably susceptible to ampicillin or amoxicillin. Vitals: Visit Vitals BP 124/76 Pulse 83 Temp 36.6 ??C (97.9 ??F) Resp 22 Katie Coma Scale Score: 15 Melchor Scale Score: 19 Oxygen Therapy: None (Room air) Skin Integrity: Bruising, Other (Comment) (abdominal surgical site; drain site) Wt Readings from Last 3 Encounters: 05/19/25 70.6 kg (155 lb 10.3 oz) 04/30/25 70.9 kg (156 lb 4.9 oz) 04/23/25 72.5 kg (159 lb 13.3 oz) Current Diet Order: Dietary Orders (From admission, onward) Start Ordered 05/18/25 1218 Oral nutrition supplements Until discontinued Question Answer Comment Supplement frequency: All meals All meals supplement: Boost Very High Calorie Vanilla Quantity for All Meals of Boost Very High Calorie - Vanilla One 05/18/25 1217 05/17/25 1217 Oral nutrition supplements Until discontinued Question Answer Comment Supplement frequency: Lunch Supplement frequency: Dinner Lunch supplement: Boost Breeze Wild Andersen Quantity for Lunch of Boost Breeze Wild Andersen One Dinner supplement: Boost Breeze Wild Andersen Quantity for Dinner of Boost Breeze Wild Andersen One 05/17/25 1217 05/15/25 1455 Adult diet Diet texture: Regular Diet effective now References: IDDSI Diet Texture Guide Question: Diet texture Answer: Regular 05/15/25 1454 Current Medications Current Scheduled Medications[4] Current Continuous Medications[5] Current Anthropometrics: Admit weight: 70.6 kg Height: 162.6 cm (5' 4 ) [place] body weight: 54.7 kg (120 lb 9.5 oz) Adjusted ideal body weight: 61.1 kg (134 lb 9.8 oz) (129%) of IBW Body mass index is 26.72 kg/m??. Adjusted wt: 58.7 kg (if over 125% of IBW) CENTRAL IV Access: PICC (05/20/25) Estimated Nutritional Needs: HBE: 1161 kcal/day Stress Factor: 1.2 - 1.3 Total Calories/day: 1393 - 1626 Protein (amino acids): 1.3 - 1.7 grams/kg Protein (Amino acids): 76.3 - 99.8 grams/day Measured Energy Needs: Respiratory Quotient: 05/20/2025 Plan/Recommendation: Start Low CHO TPN and advance to goal once electrolytes are WNL. IF concern for Refeeding syndrome due to prolong poor PO intake - administer 200mg thiamine x 2 doses when TPN started LOW CHO TPN: DEXTROSE: 9% (140 g/day CHO) AMINO ACIDS: 6% (93.6 g/day - 1.59 g/adjusted kg/day Amino acids) @ 65 ml/hr, with 30mg/day thiamine, MVI, and Trace elements Every other day 250ml 20% SMOF lipids Replace electrolytes outside of TPN Calcium and/or Phosphorus supplements MUST be in a separate line from the TPN to avoid precipitation Obtain BMP, magnesium, and Phos daily x 3days and then at least twice weekly Obtain LFT and TGLY weekly GOAL TPN: DEXTROSE: 18% (281 g/day CHO) AMINO ACIDS: 6% (93.6 g/day - 1.59 g/adjusted kg/day Amino acids) @ 65 ml/hr, with 30mg/day thiamine, MVI, and Trace elements Every other day 250ml 20% SMOF lipids 1579 Total kcal/day - 26.9 kcal/adjusted kg/day I have monitored the TPN therapy, including the labs, and have communicated any modifications with the primary medical/surgical team. Continue current TPN formula and lipid regimen as above. I have communicated the TPN plan with the IV room. 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 Available via [email or web address] Secure Chat [1] Patient Active Problem List Diagnosis CN III palsy, left Pituitary adenoma (CMS/HCC) IPMN (intraductal papillary mucinous neoplasm) Abnormal blood electrolyte level HLD (hyperlipidemia) History of CVA (cerebrovascular accident) Leukocytosis On total parenteral nutrition (TPN) Peripancreatic fluid collection [2] Past Medical History: Diagnosis Date Cranial nerve III palsy High cholesterol Pancreatic cyst Unspecified injury of unspecified wrist, hand and finger(s), initial encounter Hand injury [3] Past Surgical History: Procedure Laterality Date CYSTOSCOPY ENDOSCOPY EXTERNAL - ECG EXTERNAL - ECG [4] acetaminophen, 1,000 mg, Oral, q8h aspirin, 81 mg, Oral, Daily dronabinol, 2.5 mg, Oral, BID AC enoxaparin, 40 mg, Subcutaneous, Daily iohexol, 100 mL, Intravenous, Once in imaging lidocaine, 1 patch, Apply externally, q24h methocarbamol, 1,000 mg, Oral, 4x daily mupirocin, 1 Application, Each Nostril, BID pantoprazole, 40 mg, Oral, Daily piperacillin-tazobactam, 3.375 g, Intravenous, q6h sodium chloride, 10 mL, Intravenous, q12h [5] * Procedures - Beth Camacho RN - 05/20/2025 9:47 AM ESTAssociated Order(s): Insert PICC line Insert PICC line Date/Time: 05/20/2025 9:05 AM Performed by: Beth Camacho RN Authorized by: Lokesh Anderson MD [place] Protocol: Verbal consent obtained?: Yes Written consent obtained?: Yes Risks and benefits: Risks, benefits and alternatives were discussed Consent given by: Patient Patient states understanding of procedure being performed: Yes Patient's understanding of procedure matches consent: Yes Procedure consent matches procedure scheduled: Yes Relevant documents present and verified: Yes Test results available and properly labeled: Yes Site marked: Yes Imaging studies available: Yes Patient identity confirmed: Verbally with patient, arm band and provided demographic data Time out: Immediately prior to the procedure a time out was called Indications: Vascular access (TPN) Local anesthetic: Lidocaine 1% without epinephrine Sedation: Patient sedated: No Preparation: Skin prepped with 2% chlorhexidine Skin prep agent dried: Skin prep agent completely dried prior to procedure Sterile barriers: All five maximal sterile barriers used - gloves, gown, cap, mask and large sterile sheet Hand hygiene: Hand hygiene performed prior to catheter insertion Orientation: Right Location (Adult): Brachial vein Site selection rationale: VAt discussed site rotation to left arm, pt wishes to have picc in right arm again Catheter Lot #: [id number] Catheter guest service team leader: [employer] Catheter placed: Double lumen Catheter size: 4 Fr Catheter trimmed length: 38 Catheter threaded length: 36 Vein placed in: SVC Catheter cm indwellin Catheter cm outside: 2 Placement confirmed by: [employer] 3CG technology Pre-procedure: Landmarks identified Ultrasound guidance: Yes Sterile ultrasound techniques: Sterile gel and sterile probe covers were used Number of attempts: 2 (attempted right basilic but unable to access vessel) Post-procedure: Adhesive securement device and sterile access caps placed on each lumen Dressing applied: CHG tegaderm Assessment: Blood return through all ports Patient tolerated the procedure well with no immediate complications.: Yes PICC kit educational material was given to the patient.: Yes Comments: Images to PACS Limb precaution armband to right arm * Progress Notes - Marques Au MD - 05/20/2025 7:39 AM EST Images from the original note were not included. Department of Surgery Division of Surgical Oncology Surgery Progress Note 05/20/25 [place] Subjective Subjective: HPI 69F with history of IPMN s/p distal panc/spleen c/b post-op pancreatic leak requiring extended period with surgical drain in place (removed on 04/23). Presented with worsening abdominal pain, fever/chills and found to have peripancreatic fluid collection. 03/20/25: distal panc/spleen [Monica] Interval: Yesterday, patient Megace increased for appetite stimulation. Discussion yesterday with patient regarding GOC. Patient does not want to be a burden on her family with potential TPN. Says she had TPN before and her daughter work schedule was disrupted because of TPN maintenance. OVN, patient continued to have Left subchondral pain. She was given lidoderm and her PRN robaxin. EKG was normal. Patient is in acute L flank pain today radiating to Left abdomen. Site of IR drain removal was non-erythematous. No drainage noted. PLT 479 (380). Patient and are amenable to PiCC and TPN. Edited by: Marques Au MD at 05/20/2025 0702 Review of Systems: Relevant review of systems was obtained as able and is negative unless stated above in HPI. Objective Objective: Vital signs: Vitals: 05/20/25 0420 BP: 137/84 Pulse: 92 Resp: 22 Temp: 37.2 ??C (99 ??F) SpO2: 90% Physical Exam: Physical Exam Vitals reviewed. Constitutional: General: She is in acute distress. Appearance: She is ill-appearing. HENT: Head: Normocephalic and atraumatic. Nose: Nose normal. Eyes: General: No scleral icterus. Extraocular Movements: Extraocular movements intact. Conjunctiva/sclera: Conjunctivae normal. Pulmonary: Effort: Pulmonary effort is normal. No respiratory distress. Abdominal: General: There is no distension. Palpations: Abdomen is soft. Tenderness: There is abdominal tenderness. There is no guarding or rebound. Musculoskeletal: General: No swelling. Normal range of motion. Cervical back: Normal range of motion. Skin: General: Skin is warm and dry. Coloration: Skin is not jaundiced. Neurological: General: No focal deficit present. Mental Status: She is alert and oriented to person, place, and time. Psychiatric: Mood and Affect: Mood normal. Behavior: Behavior normal. Thought Content: Thought content normal. Judgment: Judgment normal. Intake/Output Summary (Last 24 hours) at 05/20/2025 0740 Last data filed at 05/20/2025 0200 Gross per 24 hour Intake 60 ml Output 525 ml Net -465 ml Lines/Drains/Tubes: Patient Lines/Drains/Airways Status Active Airway None Output by Drain (mL) 05/18/25 0700 - 05/18/25 1859 05/18/25 1900 - 05/19/25 0659 05/19/25 0700 - 05/19/25 1859 05/19/25 1900 - 05/20/25 0659 05/20/25 0700 - 05/20/25 0740 Patient has no LDAs of requested type attached. Labs in last 18 hours: CBC WBC 18.96 (H) Hb 13.1 Plt 479 (H) Hct 39.1 ANC ?? INR ??, PTT ??, Anti-Xa ?? MCV 86 BMP Na 136 Cl 104 BUN 9 Glu 128 (H) K 4.6 Co2 18 (L) Cr 0.53 (L) Ca 8.0 (L) iCa ?? Mg 2.0, Phos 3.2 Lactate ?? LFT AST 21 AlkPhos 94 T Prot 6.7 ALK 11 Bili 0.5 Alb ?? D.Bili ?? Lab Trends: H/H Results from last 7 days Lab Units 05/20/25 0132 05/19/25 0422 05/18/25 0433 HEMOGLOBIN g/dL 13.1 11.3 10.9* HEMATOCRIT % 39.1 33.6* 32.1* INR Cr Results from last 7 days Lab Units 05/20/25 0132 05/19/25 0422 05/18/25 0433 CREATININE mg/dL 0.53* 0.47* 0.54* Lactate No lab exists for component: LACTTEVEN Radiographic Interpretation: No imagining today. Medications reviewed. Vital signs reviewed. Labs reviewed. Assessment/Plan Assessment and Plan: Medical Problems Problem List * (Principal) Peripancreatic fluid collection CN III palsy, left Overview Addendum 03/31/2025 7:55 AM by Katlyn Hopkins APRN Hx of Abnormal blood electrolyte level Overview Signed 03/21/2025 9:54 AM by Katlyn Hopkins APRN - daily/PRN CMP, Mg, Phos - replete as appropriate - goal: K>4, phos>3, mg>2 HLD (hyperlipidemia) Overview Addendum 03/28/2025 8:24 AM by Katlyn Hopkins APRN Continue statin History of CVA (cerebrovascular accident) Overview Signed 03/21/2025 9:58 AM by Katlyn Hopkins APRN 11/2020 CT Head showed old left occipital & left temporal infarcts. On ASA 81mg daily. Leukocytosis Overview Addendum 04/04/2025 9:46 AM by Katlyn Hopkins APRN Down trending Daily CBC Abx: fidaxomicin (changed to Vancomycin due to cost on day of dc (03/30-04/09) levofloxacin/flagyl (03/30-04/12) Zosyn 03/29-03/30 zosyn [03/20-] x48h post-op Cx: GI panel/C. Diff: +GDH- Toxin, all other negative (03/30) On total parenteral nutrition (TPN) Overview Addendum 04/04/2025 9:18 AM by Katlyn Hopkins APRN - initiated on 03/30/25, continue on dc -daily CMP,mg,phos -weekly pre-albumin, triglycerides Pituitary adenoma (CMS/HCC) Overview Deleted 03/21/2025 10:00 AM by Katlyn Hopkins APRN IPMN (intraductal papillary mucinous neoplasm) Overview Addendum 04/04/2025 9:18 AM by Katlyn Hopkins APRN 03/20/2025:ex-lap, SAMIA, distal pancreatectomy w/splenectomy, celiac axis node dissection [Monica] Keep DARIAN bulb on dc Present on Admission: Peripancreatic fluid collection Plan: [ ] schedule splenectomy vaccines - transition augmentin to zosyn - ordered PiCC - FU TPN - CT AP to t/o abscess formation - FU appetite - body fluid culture growing: Streptococcus constellatus, H. Parainfluenzae. Edited by: Marques Au MD at 05/20/2025 0701 Dispo: Continue Current Level of Care Marques Bach MD Cosigned by Lokesh Anderson MD at 05/22/2025 9:37 AM EST Associated attestation - Lokesh Anderson MD - 05/22/2025 9:37 AM EST I saw and evaluated the patient with the resident/fellow. I discussed the case with the resident/fellow and agree with the findings and plan as documented. * Care Plan - Sweetie Roberto RN - 05/19/2025 10:43 PM EST Problem: Adult Inpatient Plan of Care Goal: Plan of Care Review Outcome: Ongoing, Progressing Flowsheets (Taken 05/19/2025 2243) Progress: no change Plan of Care Reviewed With: patient Goal: Patient-Specific Goal (Individualized) Outcome: Ongoing, Progressing Goal: Absence of Hospital-Acquired Illness or Injury Outcome: Ongoing, Progressing Goal: Optimal Comfort and Wellbeing Outcome: Ongoing, Progressing Problem: Pain Acute Goal: Optimal Pain Control and Function Outcome: Ongoing, Progressing Problem: Fall Injury Risk Goal: Absence of Fall and Fall-Related Injury Outcome: Ongoing, Progressing Problem: Skin Injury Risk Increased Goal: Skin Health and Integrity Outcome: Ongoing, Progressing * Progress Notes - Katie Pena RN - 05/19/2025 2:18 PM EST Case Management Adult Progress Note [place] 69 y.o. female CSN: [id number] Admission: 05/13/2025 6:45 PM Primary Problem: Peripancreatic fluid collection Anticipated Discharge Date: 05/20 Has Discharge Plans Changed? No Medicare Second Notice: Housing Circumstances: Not Applicable Housing Circumstances Action Taken: Medically Ready for Discharge: no Additional Comments POC reviewed with primary team. Refer to primary team's progress note for details. Pt not medicallyready to d\c. Team trying to establish a feeding plan. DC plan of care ongoing Katie Pena RN * Progress Notes - Conrado Park APRN - 05/19/2025 12:42 PM EST Images from the original note were not included. Department of Surgery Division of Surgical Oncology Surgery Progress Note 05/19/25 [place] Subjective Subjective: HPI 69F with history of IPMN s/p distal panc/spleen c/b post-op pancreatic leak requiring extended period with surgical drain in place (removed on 04/23). Presented with worsening abdominal pain, fever/chills and found to have peripancreatic fluid collection. 03/20/25: distal panc/spleen [Monica] Interval: Yesterday, patient was started on Megace for appetite stimulation after refusing PiCC/TPN. Zosyn was transitioned to Augment (last day 05/22). LUQ 15. 1 BM. K 3.5 (repleted) Phos 2.6 (repleted) Mg 1.7 (repleted). I/O: UOP 1100+x2, LUQ 15, Bmx1 Edited by: Conrado Park APRN at 05/19/2025 1242 Review of Systems: Relevant review of systems was obtained as able and is negative unless stated above in HPI. Objective Objective: Vital signs: Vitals: 05/19/25 1215 BP: 125/81 Pulse: 70 Resp: Temp: 36.9 ??C (98.4 ??F) SpO2: 94% Physical Exam: Physical Exam Vitals reviewed. Constitutional: General: She is not in acute distress. Appearance: She is ill-appearing. HENT: Head: Normocephalic and atraumatic. Nose: Nose normal. Eyes: General: No scleral icterus. Extraocular Movements: Extraocular movements intact. Conjunctiva/sclera: Conjunctivae normal. Pulmonary: Effort: Pulmonary effort is normal. No respiratory distress. Abdominal: General: There is no distension. Palpations: Abdomen is soft. Tenderness: There is no abdominal tenderness. There is no guarding or rebound. Musculoskeletal: General: No swelling. Normal range of motion. Cervical back: Normal range of motion. Skin: General: Skin is warm and dry. Coloration: Skin is not jaundiced. Neurological: General: No focal deficit present. Mental Status: She is alert and oriented to person, place, and time. Psychiatric: Mood and Affect: Mood normal. Behavior: Behavior normal. Thought Content: Thought content normal. Judgment: Judgment normal. Intake/Output Summary (Last 24 hours) at 05/19/2025 1242 Last data filed at 05/19/2025 0650 Gross per 24 hour Intake 530 ml Output 915 ml Net -385 ml Lines/Drains/Tubes: Patient Lines/Drains/Airways Status Active Airway None Output by Drain (mL) 05/17/25 0700 - 05/17/25 1859 05/17/25 1900 - 05/18/25 0659 05/18/25 0700 - 05/18/25 1859 05/18/25 1900 - 05/19/25 0659 05/19/25 0700 - 05/19/25 1242 Closed/Suction Drain 1 Lateral LUQ Accordion 10 Fr. 10 10 15 Labs in last 18 hours: CBC WBC 10.29 Hb 11.3 Plt 380 (H) Hct 33.6 (L) ANC ?? INR ??, PTT ??, Anti-Xa ?? MCV 87 BMP Na 136 Cl 106 BUN 8 Glu 132 (H) K 3.5 (L) Co2 21 (L) Cr 0.47 (L) Ca 7.9 (L) iCa ?? Mg 1.7 (L), Phos 2.6 Lactate ?? LFT AST 27 AlkPhos 92 T Prot 6.4 ALK 14 Bili 0.3 Alb ?? D.Bili ?? Lab Trends: H/H Results from last 7 days Lab Units 05/19/25 0422 05/18/25 0433 05/17/25 0003 HEMOGLOBIN g/dL 11.3 10.9* 11.2 HEMATOCRIT % 33.6* 32.1* 33.3* INR Cr Results from last 7 days Lab Units 05/19/25 0422 05/18/25 0433 05/17/25 0003 CREATININE mg/dL 0.47* 0.54* 0.54* Lactate No lab exists for component: LACTTEVEN Radiographic Interpretation: I have reviewed the imaging above and agree with the radiologist interpretation. Medications reviewed. Vital signs reviewed. Labs reviewed. Assessment/Plan Assessment and Plan: Medical Problems Problem List * (Principal) Peripancreatic fluid collection CN III palsy, left Overview Addendum 03/31/2025 7:55 AM by Katlyn Hopkins APRN Hx of Abnormal blood electrolyte level Overview Signed 03/21/2025 9:54 AM by Katlyn Hopkins APRN - daily/PRN CMP, Mg, Phos - replete as appropriate - goal: K>4, phos>3, mg>2 HLD (hyperlipidemia) Overview Addendum 03/28/2025 8:24 AM by Katlyn Hopkins APRN Continue statin History of CVA (cerebrovascular accident) Overview Signed 03/21/2025 9:58 AM by Katlyn Hopkins APRN 11/2020 CT Head showed old left occipital & left temporal infarcts. On ASA 81mg daily. Leukocytosis Overview Addendum 04/04/2025 9:46 AM by Katlyn Hopkins APRN Down trending Daily CBC Abx: fidaxomicin (changed to Vancomycin due to cost on day of dc (03/30-04/09) levofloxacin/flagyl (03/30-04/12) Zosyn 03/29-03/30 zosyn [03/20-] x48h post-op Cx: GI panel/C. Diff: +GDH- Toxin, all other negative (03/30) On total parenteral nutrition (TPN) Overview Addendum 04/04/2025 9:18 AM by Katlyn Hopkins APRN - initiated on 03/30/25, continue on dc -daily CMP,mg,phos -weekly pre-albumin, triglycerides Pituitary adenoma (CMS/HCC) Overview Deleted 03/21/2025 10:00 AM by Katlyn Hopkins APRN IPMN (intraductal papillary mucinous neoplasm) Overview Addendum 04/04/2025 9:18 AM by Katlyn Hopkins APRN 03/20/2025:ex-lap, SAMIA, distal pancreatectomy w/splenectomy, celiac axis node dissection [Monica] Keep DARIAN bulb on dc Present on Admission: Peripancreatic fluid collection Plan: [ ] schedule splenectomy vaccines - increase Megace - Augmentin 5 days (last day 05/22) - FU appetite - body fluid culture growing: Streptococcus constellatus, H. Parainfluenzae. Edited by: Conrado Park APRN at 05/19/2025 1242 Dispo: Continue Current Level of Care Conrado Park APRN Cosigned by Lokesh Anderson MD at 05/19/2025 8:21 PM EST Associated attestation - Lokesh Anderson MD - 05/19/2025 8:21 PM EST I attest to being involved in more than half the total time in patient care. * Care Plan - Gerri Schaefer RN - 05/18/2025 8:10 PM EST Problem: Adult Inpatient Plan of Care Goal: Plan of Care Review Outcome: Ongoing, Progressing Flowsheets (Taken 05/18/20252007) Progress: improving Plan of Care Reviewed With: patient Problem: Pain Acute Goal: Optimal Pain Control and Function Outcome: Ongoing, Progressing Intervention: Optimize Psychosocial Wellbeing Flowsheets (Taken 05/18/20252007) Supportive Measures: active listening utilized positive reinforcement provided relaxation techniques promoted verbalization of feelings encouraged self-care encouraged Diversional Activities: television smartphone Spiritual Activities Assistance: hope instilled affirmation provided Intervention: Prevent or Manage Pain Flowsheets (Taken 05/18/20252007) Sensory Stimulation Regulation: care clustered lighting decreased quiet environment promoted Bowel Elimination Promotion: ambulation promoted privacy promoted adequate fluid intake promoted Sleep/Rest Enhancement: awakenings minimized consistent schedule promoted noise level reduced regular sleep/rest pattern promoted relaxation techniques promoted room darkened Medication Review/Management: medications reviewed Problem: Fall Injury Risk Goal: Absence of Fall and Fall-Related Injury Outcome: Ongoing, Progressing Intervention: Identify and Manage Contributors Flowsheets (Taken 05/18/20252007) Medication Review/Management: medications reviewed Self-Care Promotion: independence encouraged BADL personal objects within reach Intervention: Promote Injury-Free Environment Flowsheets (Taken 05/18/20252007) Safety Promotion/Fall Prevention: activity supervised assistive device/personal items within reach clutter-free environment maintained lighting adjusted nonskid shoes/slippers when out of bed safety round/check completed toileting scheduled room organization consistent Problem: Skin Injury Risk Increased Goal: Skin Health and Integrity Outcome: Ongoing, Progressing Intervention: Optimize Skin Protection Flowsheets (Taken 05/18/20252007) Activity Management: activity adjusted per tolerance activity encouraged Pressure Reduction Techniques: frequent weight shift encouraged heels elevated off bed pressure points protected Skin Protection: incontinence pads utilized Intervention: Promote and Optimize Oral Intake Flowsheets (Taken 05/18/20252007) Oral Nutrition Promotion: nutrition counseling provided physical activity promoted rest periods promoted Nutrition Interventions: supplemental foods provided supplemental drinks provided * Progress Notes - Marques Au MD - 05/18/2025 11:18 AM EST Images from the original note were not included. Department of Surgery Division of Surgical Oncology Surgery Progress Note 05/18/25 [place] Subjective Subjective: HPI 69F with history of distal pancreatectomy and splenectomy for IPMN. She had a pancreatic leak post op and had extended period with surgical drain in place that was removed on 04/23. Presented with worsening abdominal pain, rigors, diaphoresis. CT scan showed peripancreatic fluid collection. Newly febrile. 03/20/25: distal panc/spleen [Monica] Interval: CTAP yesterday demonstrated decreasing pancreatic bed fluid collection. Patient seen today sitting in chair. Complaining of abdominal pain. Abdomen soft, mildly tender, no rigidity or guarding noted. Patient also complaining of IR drain insertion site pain. Site C/D/I, no erythema, no puru lence noted. Patient received Megace for appetite stimulation. Zosyn was switched to Augmentin for 5 days. LUQ drain 20 (20) light brown. Endorses flatus and BM. CBC and BMP okay. On regular diet. Minimal intake. Edited by: Marques Au MD at 05/18/2025 1119 Review of Systems: Relevant review of systems was obtained as able and is negative unless stated above in HPI. Objective Objective: Vital signs: Vitals: 05/18/25 0753 BP: 128/76 Pulse: 61 Resp: Temp: 36.5 ??C (97.7 ??F) SpO2: 94% Physical Exam: Physical Exam Vitals reviewed. HENT: Head: Normocephalic and atraumatic. Nose: Nose normal. Eyes: General: No scleral icterus. Extraocular Movements: Extraocular movements intact. Conjunctiva/sclera: Conjunctivae normal. Pulmonary: Effort: Pulmonary effort is normal. No respiratory distress. Abdominal: General: There is no distension. Palpations: Abdomen is soft. Tenderness: There is no abdominal tenderness. There is no guarding or rebound. Musculoskeletal: General: No swelling. Normal range of motion. Cervical back: Normal range of motion. Skin: General: Skin is warm and dry. Coloration: Skin is not jaundiced. Neurological: General: No focal deficit present. Mental Status: She is alert and oriented to person, place, and time. Psychiatric: Mood and Affect: Mood normal. Behavior: Behavior normal. Thought Content: Thought content normal. Judgment: Judgment normal. Intake/Output Summary (Last 24 hours) at 05/18/2025 1119 Last data filed at 05/18/2025 1000 Gross per 24 hour Intake 990.17 ml Output 820 ml Net 170.17 ml Lines/Drains/Tubes: Patient Lines/Drains/Airways Status Active Airway None Output by Drain (mL) 05/16/25 0700 - 05/16/25 1859 05/16/25 1900 - 05/17/25 0659 05/17/25 0700 - 05/17/25 1859 05/17/25 1900 - 05/18/25 0659 05/18/25 0700 - 05/18/25 1119 Closed/Suction Drain 1 Lateral LUQ Accordion 10 Fr. 10 10 10 10 Labs in last 18 hours: CBC WBC 9.04 Hb 10.9 (L) Plt 355 Hct 32.1 (L) ANC ?? INR ??, PTT ??, Anti-Xa ?? MCV 86 BMP Na 139 Cl 108 (H) BUN 6 (L) Glu 134 (H) K 3.9 Co2 21 (L) Cr 0.54 (L) Ca 7.8 (L) iCa ?? Mg 2.1, Phos 2.5 Lactate ?? LFT AST 33 AlkPhos 97 T Prot 6.1 (L) ALK 13 Bili 0.4 Alb ?? D.Bili ?? Lab Trends: H/H Results from last 7 days Lab Units 05/18/25 0433 05/17/25 0003 05/16/25 0020 HEMOGLOBIN g/dL 10.9* 11.2 11.0* HEMATOCRIT % 32.1* 33.3* 33.1* INR Cr Results from last 7 days Lab Units 05/18/25 0433 05/17/25 0003 05/16/25 0020 CREATININE mg/dL 0.54* 0.54* 0.55* Lactate No lab exists for component: LACTTEVEN Radiographic Interpretation: No imagining today. Medications reviewed. Vital signs reviewed. Labs reviewed. Assessment/Plan Assessment and Plan: Medical Problems Problem List * (Principal) Peripancreatic fluid collection CN III palsy, left Overview Addendum 03/31/2025 7:55 AM by Katlyn Hopkins APRN Hx of Abnormal blood electrolyte level Overview Signed 03/21/2025 9:54 AM by Katlyn Hopkins APRN - daily/PRN CMP, Mg, Phos - replete as appropriate - goal: K>4, phos>3, mg>2 HLD (hyperlipidemia) Overview Addendum 03/28/2025 8:24 AM by Katlyn Hopkins APRN Continue statin History of CVA (cerebrovascular accident) Overview Signed 03/21/2025 9:58 AM by Katlyn Hopkins APRN 11/2020 CT Head showed old left occipital & left temporal infarcts. On ASA 81mg daily. Leukocytosis Overview Addendum 04/04/2025 9:46 AM by Katlyn Hopkins APRN Down trending Daily CBC Abx: fidaxomicin (changed to Vancomycin due to cost on day of dc (03/30-04/09) levofloxacin/flagyl (03/30-04/12) Zosyn 03/29-03/30 zosyn [03/20-] x48h post-op Cx: GI panel/C. Diff: +GDH- Toxin, all other negative (03/30) On total parenteral nutrition (TPN) Overview Addendum 04/04/2025 9:18 AM by Katlyn Hopkins APRN - initiated on 03/30/25, continue on dc -daily CMP,mg,phos -weekly pre-albumin, triglycerides Pituitary adenoma (CMS/HCC) Overview Deleted 03/21/2025 10:00 AM by Katlyn Hopkins APRN IPMN (intraductal papillary mucinous neoplasm) Overview Addendum 04/04/2025 9:18 AM by Katlyn Hopkins APRN 03/20/2025:ex-lap, SAMIA, distal pancreatectomy w/splenectomy, celiac axis node dissection [Monica] Keep DARIAN bulb on dc Present on Admission: Peripancreatic fluid collection Plan: [ ] schedule splenectomy vaccines - Megace - zosyn d/c'd - ordered Augment 5 days (last day 05/22) - FU appetite - body fluid culture growing: Streptococcus constellatus, H. Parainfluenzae. Edited by: Marques Au MD at 05/18/2025 1118 Dispo: Continue Current Level of Care Marques Bach MD Cosigned by Lokesh Anderson MD at 05/19/2025 8:20 PM EST Associated attestation - Lokesh Anderson MD - 05/19/2025 8:20 PM EST I saw and evaluated the patient with the resident/fellow. I discussed the case with the resident/fellow and agree with the findings and plan as documented. * Care Plan - Ranjana Aguilar RN - 05/18/2025 9:20 AM EST Problem: Adult Inpatient Plan of Care Goal: Plan of Care Review Outcome: Ongoing, Progressing Flowsheets (Taken 05/18/2025 0918) Progress: improving Plan of Care Reviewed With: patient Goal: Patient-Specific Goal (Individualized) Outcome: Ongoing, Progressing Flowsheets (Taken 05/18/2025 0800) Patient/Family-Specific Goals (Include Timeframe): patient will remain free from falls/injury/harm Individualized Care Needs: safety Anxieties, Fears or Concerns: none Goal: Absence of Hospital-Acquired Illness or Injury Outcome: Ongoing, Progressing Intervention: Identify and Manage Fall Risk Flowsheets (Taken 05/18/2025 0800) Safety Promotion/Fall Prevention: activity supervised clutter-free environment maintained room organization consistent safety round/check completed Intervention: Prevent Skin Injury Flowsheets (Taken 05/18/2025 0800) Body Position: weight shifting Intervention: Prevent and Manage VTE (Venous Thromboembolism) Risk Flowsheets (Taken 05/18/2025 08) VTE Prevention/Management: SCDs (sequential compression devices) off medication Intervention: Prevent Infection Flowsheets (Taken 05/18/2025247 by Lokesh Neal RN) Infection Prevention: hand hygiene promoted rest/sleep promoted Goal: Optimal Comfort and Wellbeing Outcome: Ongoing, Progressing Intervention: Monitor Pain and Promote Comfort Flowsheets (Taken 05/18/2025 0859) Pain Management Interventions: medication (see MAR) Intervention: Provide Person-Centered Care Flowsheets (Taken 05/18/2025247 by Lokesh Neal RN) Trust Relationship/Rapport: care explained choices provided emotional support provided empathic listening provided questions answered thoughts/feelings acknowledged Problem: Pain Acute Goal: Optimal Pain Control and Function Outcome: Ongoing, Progressing Intervention: Optimize Psychosocial Wellbeing Flowsheets Taken 05/18/2025917 by aRnjana Aguilar RN Spiritual Activities Assistance: affirmation provided Taken 05/18/2025247 by Lokesh Neal RN Supportive Measures: relaxation techniques promoted self-care encouraged Intervention: Develop Pain Management Plan Flowsheets (Taken 05/18/2025858) Pain Management Interventions: medication (see MAR) Intervention: Prevent or Manage Pain Flowsheets Taken 05/18/2025917 by Ranjana Aguilar RN Sleep/Rest Enhancement: consistent schedule promoted family presence promoted natural light exposure provided relaxation techniques promoted Medication Review/Management: medications reviewed Taken 05/14/2025 08 by Vibha Stevens RN Bowel Elimination Promotion: privacy promoted Problem: Fall Injury Risk Goal: Absence of Fall and Fall-Related Injury Outcome: Ongoing, Progressing Intervention: Identify and Manage Contributors Flowsheets (Taken 05/18/2025917) Medication Review/Management: medications reviewed Self-Care Promotion: independence encouraged BADL personal objects within reach BADL personal routines maintained Intervention: Promote Injury-Free Environment Flowsheets (Taken 05/18/2025 08) Safety Promotion/Fall Prevention: activity supervised clutter-free environment maintained room organization consistent safety round/check completed Problem: Skin Injury Risk Increased Goal: Skin Health and Integrity Outcome: Ongoing, Progressing Intervention: Optimize Skin Protection Flowsheets Taken 05/18/2025917 by Ranjana Aguilar RN Activity Management: up ad david Taken 05/16/20252158 by Claribel Herron RN Pressure Reduction Techniques: frequent weight shift encouraged Intervention: Promote and Optimize Oral Intake Flowsheets (Taken 05/18/2025 0918) Nutrition Interventions: diet liberalized * Care Plan - Lokesh Neal RN - 05/18/2025 2:50 AM EST Problem: Adult Inpatient Plan of Care Goal: Absence of Hospital-Acquired Illness or Injury Intervention: Identify and Manage Fall Risk Flowsheets (Taken 05/18/2025247) Safety Promotion/Fall Prevention: activity supervised assistive device/personal items within reach clutter-free environment maintained nonskid shoes/slippers when out of bed safety round/check completed lighting adjusted Problem: Adult Inpatient Plan of Care Goal: Absence of Hospital-Acquired Illness or Injury Intervention: Prevent Skin Injury Flowsheets (Taken 05/18/2025247) Body Position: weight shifting Problem: Adult Inpatient Plan of Care Goal: Absence of Hospital-Acquired Illness or Injury Intervention: Prevent and Manage VTE (Venous Thromboembolism) Risk Flowsheets (Taken 05/18/2025247) VTE Prevention/Management: education provided Problem: Adult Inpatient Plan of Care Goal: Absence of Hospital-Acquired Illness or Injury Intervention: Prevent Infection Flowsheets (Taken 05/18/2025247) Infection Prevention: hand hygiene promoted rest/sleep promoted Problem: Adult Inpatient Plan of Care Goal: Optimal Comfort and Wellbeing Intervention: Monitor Pain and Promote Comfort Flowsheets (Taken 05/18/2025247) Pain Management Interventions: relaxation techniques promoted Problem: Adult Inpatient Plan of Care Goal: Optimal Comfort and Wellbeing Intervention: Provide Person-Centered Care Flowsheets (Taken 05/18/2025247) Trust Relationship/Rapport: care explained choices provided emotional support provided empathic listening provided questions answered thoughts/feelings acknowledged Problem: Pain Acute Goal: Optimal Pain Control and Function Intervention: Optimize Psychosocial Wellbeing Flowsheets (Taken 05/18/2025247) Supportive Measures: relaxation techniques promoted self-care encouraged * Care Plan - Steffi Park RN - 05/17/2025 3:32 PM EST Problem: Adult Inpatient Plan of Care Goal: Plan of Care Review Outcome: Ongoing, Progressing Flowsheets (Taken 05/17/2025 1532) Progress: improving Plan of Care Reviewed With: patient spouse Goal: Patient-Specific Goal (Individualized) Outcome: Ongoing, Progressing Goal: Absence of Hospital-Acquired Illness or Injury Outcome: Ongoing, Progressing Goal: Optimal Comfort and Wellbeing Outcome: Ongoing, Progressing Problem: Pain Acute Goal: Optimal Pain Control and Function Outcome: Ongoing, Progressing Problem: Fall Injury Risk Goal: Absence of Fall and Fall-Related Injury Outcome: Ongoing, Progressing Problem: Skin Injury Risk Increased Goal: Skin Health and Integrity Outcome: Ongoing, Progressing * Progress Notes - Marques uA MD - 05/17/2025 2:00 PM EST Images from the original note were not included. Department of Surgery Division of Surgical Oncology Surgery Progress Note 05/17/25 [place] Subjective Subjective: HPI 69F with history of distal pancreatectomy and splenectomy for IPMN. She had a pancreatic leak post op and had extended period with surgical drain in place that was removed on 04/23. Presented with worsening abdominal pain, rigors, diaphoresis. CT scan showed peripancreatic fluid collection. Newly febrile. 03/20/25: distal panc/spleen [Monica] Interval: Patient was seen after returning from CT scan. Says she has no appetite and would not like a PiCC/TPN because of its high maintenance while at home. She also believed it suppressed her appetite. Patient and were educated on necessity of nutritional supplementation, especially whenshe has not had a full meal in a long time. Otherwise, her pain is well controlled since discontinuing a lot of her pain medications yesterday. Denies nausea and vomiting. Afebrile hemodynamically stable. Four BM. LUQ accordion 20 (80) slightly purulent. CBC ok. K 3.7 (repleted) Mg 1.7 (repleted). Drain culture Streptococcus constellatus, H. Parainfluenzae. CT scan demonstrated decreasing pancreatic bed fluid collection. Edited by: Marques Au MD at 05/17/2025 1400 Review of Systems: Relevant review of systems was obtained as able and is negative unless stated above in HPI. Objective Objective: Vital signs: Vitals: 05/17/25 1127 BP: 128/76 Pulse: 74 Resp: 16 Temp: 36.4 ??C (97.5 ??F) SpO2: 97% Physical Exam: Physical Exam Vitals reviewed. HENT: Head: Normocephalic and atraumatic. Nose: Nose normal. Eyes: General: No scleral icterus. Extraocular Movements: Extraocular movements intact. Conjunctiva/sclera: Conjunctivae normal. Pulmonary: Effort: Pulmonary effort is normal. No respiratory distress. Abdominal: General: There is no distension. Palpations: Abdomen is soft. Tenderness: There is abdominal tenderness. There is no guarding or rebound. Musculoskeletal: General: No swelling. Normal range of motion. Cervical back: Normal range of motion. Skin: General: Skin is warm and dry. Coloration: Skin is not jaundiced. Neurological: General: No focal deficit present. Mental Status: She is alert and oriented to person, place, and time. Psychiatric: Mood and Affect: Mood normal. Behavior: Behavior normal. Thought Content: Thought content normal. Judgment: Judgment normal. Intake/Output Summary (Last 24 hours) at 05/17/2025 1400 Last data filed at 05/17/2025 1000 Gross per 24 hour Intake 1372 ml Output 20 ml Net 1352 ml Lines/Drains/Tubes: Patient Lines/Drains/Airways Status Active Airway None Output by Drain (mL) 05/15/25 0700 - 05/15/25 1859 05/15/25 1900 - 05/16/25 0659 05/16/25 0700 - 05/16/25 1859 05/16/25 1900 - 05/17/25 0659 05/17/25 0700 - 05/17/25 1400 Closed/Suction Drain 1 Lateral LUQ Accordion 10 Fr. 70 10 10 10 Labs in last 18 hours: CBC WBC 10.73 (H) Hb 11.2 Plt 329 Hct 33.3 (L) ANC ?? INR ??, PTT ??, Anti-Xa ?? MCV 87 BMP Na 139 Cl 106 BUN 8 Glu 123 (H) K 3.7 Co2 21 (L) Cr 0.54 (L) Ca 7.7 (L) iCa ?? Mg 1.7 (L), Phos 3.4 Lactate ?? LFT AST 25 AlkPhos 100 T Prot 5.8 (L) ALK 10 Bili 0.4 Alb ?? D.Bili ?? Lab Trends: H/H Results from last 7 days Lab Units 05/17/25 0003 05/16/25 0020 05/15/25 0218 HEMOGLOBIN g/dL 11.2 11.0* 11.0* HEMATOCRIT % 33.3* 33.1* 32.1* INR Cr Results from last 7 days Lab Units 05/17/25 0003 05/16/25 0020 05/15/25 0218 CREATININE mg/dL 0.54* 0.55* 0.72 Lactate No lab exists for component: LACTTEVEN Radiographic Interpretation: I have reviewed the imaging above and agree with the radiologist interpretation. CT Abdomen Pelvis w IV Contrast Result Date: 05/17/2025 Decreasing pancreatic bed fluid collection, status post pigtail catheter placement CRITICAL RESULT:No. COMMUNICATION: Per this written report. Drafted by River Garcia MD on 05/17/2025 12:47 PM Final report signed by River Garcia MD on 05/17/2025 12:55 PM Medications reviewed. Vital signs reviewed. Labs reviewed. Assessment/Plan Assessment and Plan: Medical Problems Problem List * (Principal) Peripancreatic fluid collection CN III palsy, left Overview Addendum 03/31/2025 7:55 AM by Katlyn Hopkins APRN Hx of Abnormal blood electrolyte level Overview Signed 03/21/2025 9:54 AM by Katlyn Hopkins APRN - daily/PRN CMP, Mg, Phos - replete as appropriate - goal: K>4, phos>3, mg>2 HLD (hyperlipidemia) Overview Addendum 03/28/2025 8:24 AM by Katlyn Hopkins APRN Continue statin History of CVA (cerebrovascular accident) Overview Signed 03/21/2025 9:58 AM by Katlyn Hopkins APRN 11/2020 CT Head showed old left occipital & left temporal infarcts. On ASA 81mg daily. Leukocytosis Overview Addendum 04/04/2025 9:46 AM by Katlyn Hopkins APRN Down trending Daily CBC Abx: fidaxomicin (changed to Vancomycin due to cost on day of dc (03/30-04/09) levofloxacin/flagyl (/18) Zosyn 03/29-03/30 zosyn [03/20-] x48h post-op Cx: GI panel/C. Diff: +GDH- Toxin, all other negative (03/30) On total parenteral nutrition (TPN) Overview Addendum 04/04/2025 9:18 AM by Katlyn Hopkins PETROGRAPHER - initiated on 03/30/25, continue on dc -daily CMP,mg,phos -weekly pre-albumin, triglycerides Pituitary adenoma (CMS/HCC) Overview Deleted 03/21/2025 10:00 AM by Katlyn Hopkins APRN IPMN (intraductal papillary mucinous neoplasm) Overview Addendum 04/04/2025 9:18 AM by Katlyn Hopkins APRN 03/20/2025:ex-lap, SAMIA, distal pancreatectomy w/splenectomy, celiac axis node dissection [Monica] Keep DARIAN bulb on dc Present on Admission: Peripancreatic fluid collection Plan: [ ] schedule splenectomy vaccines - Patient refused PICC placement and TPN feeds - Continue Zosyn - body fluid culture growing: Streptococcus constellatus, H. Parainfluenzae. Edited by: Marques Au MD at 05/17/2025 1400 Dispo: Continue Current Level of Care Marques Bach MD Cosigned by Lokesh Anderson MD at 05/19/2025 8:20 PM EST Associated attestation - Lokesh Anderson MD - 05/19/2025 8:20 PM EST I saw and evaluated the patient with the resident/fellow. I discussed the case with the resident/fellow and agree with the findings and plan as documented. * Consults - Cecily Trujillo RN - 05/17/2025 1:25 PM EST VAT came to bedside for PICC placement. MD at bedside states to cancel the PICC order. Will complete consult. * Consults - Emily Desai LD - 05/17/2025 12:12 PM EST Adult Nutrition Evaluation Note Dot Dale 69 y.o. female CSN: [id number] Room/Bed 216/216A Nutrition evaluation type: assessment Reason for evaluation: On TF or TPN Hospital course: 69 y/o F with relevant PMH left CN III palsy, hx of CVA on ASA, hx of DVT, hypercholesterolemia, pituitary adenoma, and IPMN who presented to the ED for evaluation of abd pain, N/V. 03/20/2025, the patient underwent ex-lap, SAMIA, distal pancreatectomy w/splenectomy, and celiac axis node dissection. Past medical/ surgical history: Past Medical History[1] Surgical History[2] Social history: Additional comments: Vitals and Basic Assessment: BP: 128/76 Temp: 36.4 ??C (97.5 ??F) Oxygen Therapy: None (Room air) O2 Delivery Method: Nasal cannula Katie Coma Scale Score: 15 Melchor Scale Score: 17 Most Recent BM Date: 05/16/25 GI Symptoms: Nausea Allergies: Allergies[3] Medications: Current Scheduled Medications[4] Meds were reviewed: Yes Labs: Lab Results Component Value Date GLUCOSE 123 (H) 05/17/2025 CALCIUM 7.7 (L) 05/17/2025 NA 139 05/17/2025 K 3.7 05/17/2025 CO2 21 (L) 05/17/2025 CL 106 05/17/2025 BUN 8 05/17/2025 CREATININE 0.54 (L) 05/17/2025 PHOS 3.4 05/17/2025 MG 1.7 (L) 05/17/2025 HGBA1C 5.4 12/05/2020 Anthropometrics: Height: 162.6 cm (5' 4 ) Weight: 71.6 kg (157 lb 13.6 oz) BMI (Calculated): 27.08 Weight Evaluation: Overweight (BMI 25-29.9) [place] Body Weight (kg): 54.5 Percent [place] Body Weight: 131 Estimated Needs: Kcal/ K-30 Kcal Provided: 4644-7723 Kcal Needs Based On: Current weight Gm Protein/ Kg : 1+ Protein Provided: 71+ Protein Needs Based On: Current weight ML/ Kg: Per team Metabolic Cart Study Results: Current Nutrition Intake: Diet Supplements: None Diet Order: Adult Diet Diet Texture: Regular Diet Experience and Nutrition History: Diet Education Provided: Will monitor Pertinent home medications: [place]atter [place] needs: Nutrition Focused Physical Exam: Unable to Complete Exam: Weekend coverage Physical exam performed on (date): Assessment of Malnutrition: Malnutrition Identified: Additional Information Needed Nutrition Problem: Inadequate oral intake related to ongoing clinical condition as evidenced by <50% PO intake. Status of Nutrition Diagnosis: New Nutrition Interventions and Recommendations: Continue current diet as tolerated Adding Boost Breeze BID to encourage PO intake Pharmacy to dose and manage TPN Nutrition Monitoring and Goals: Pharmacy to dose and manage TPN Acuity Level: 1 INDRA Alfonso, RD Weekend Dietitian [1] Past Medical History: Diagnosis Date Cranial nerve III palsy High cholesterol Pancreatic cyst Unspecified injury of unspecified wrist, hand and finger(s), initial encounter Hand injury [2] Past Surgical History: Procedure Laterality Date CYSTOSCOPY ENDOSCOPY EXTERNAL - ECG EXTERNAL - ECG [3] No Known Allergies [4] acetaminophen, 1,000 mg, Oral, q8h aspirin, 81 mg, Oral, Daily enoxaparin, 40 mg, Subcutaneous, Daily pantoprazole, 40 mg, Oral, Daily piperacillin-tazobactam, 3.375 g, Intravenous, q6h Insert peripheral IV, , , Once AND Saline lock IV, , , Once AND sodium chloride, 10 mL, Intravenous, q12h AND sodium chloride, 10 mL, Intravenous, PRN Insert peripheral IV, , , Once AND Saline lock IV, , , Once AND sodium chloride, 10 mL, Intravenous, q12h AND sodium chloride, 10 mL, Intravenous, PRN * Care Plan - Claribel Herron RN - 05/16/2025 9:59 PM EST Problem: Adult Inpatient Plan of Care Goal: Plan of Care Review Outcome: Ongoing, Progressing Flowsheets (Taken 05/16/20252158) Progress: improving Plan of Care Reviewed With: patient Goal: Patient-Specific Goal (Individualized) Outcome: Ongoing, Progressing Goal: Absence of Hospital-Acquired Illness or Injury Outcome: Ongoing, Progressing Goal: Optimal Comfort and Wellbeing Outcome: Ongoing, Progressing Intervention: Monitor Pain and Promote Comfort Flowsheets (Taken 05/16/20252158) Pain Management Interventions: medication (see MAR) pillow support provided position adjusted rest Problem: Pain Acute Goal: Optimal Pain Control and Function Outcome: Ongoing, Progressing Intervention: Optimize Psychosocial Wellbeing Flowsheets (Taken 05/16/20252158) Supportive Measures: active listening utilized positive reinforcement provided self-care encouraged relaxation techniques promoted Diversional Activities: television smartphone Problem: Fall Injury Risk Goal: Absence of Fall and Fall-Related Injury Outcome: Ongoing, Progressing Intervention: Identify and Manage Contributors Flowsheets (Taken 05/16/20252158) Self-Care Promotion: independence encouraged Problem: Skin Injury Risk Increased Goal: Skin Health and Integrity Outcome: Ongoing, Progressing Intervention: Optimize Skin Protection Flowsheets (Taken 05/16/20252158) Activity Management: activity adjusted per tolerance Pressure Reduction Techniques: frequent weight shift encouraged Head of Bed (HOB) Positioning: HOB elevated * Post-Procedure Note - Gael Alatorre MD - 05/16/2025 5:37 PM EST Vascular and Interventional Radiology Brief Postprocedure Note Attending: Gael Alatorre MD Still Operator Batch Or Continuous: Elias Garcia MD; Wilfredo Phillips [facility] Pre-operative Diagnosis: Post operative intra-abdominal abscess Post-operative Diagnosis: Same Type of Anesthesia: Conscious Sedation Description of Findings: Abscess within the distal pancreatectomy bed drained with 10Fr pigtail drain placement. Purulent material returned of which a sample was submitted for culture. Technical/Surgical Procedures Used: CT Specimen Obtained: Yes, Fluid aspirate Complications: None Estimated Blood Loss: minimal Procedure Events Event Event Time Sedation Start 05/14/2025 4:32 PM Sedation Stop 05/14/2025 4:58 PM See detailed result report with images in PACS. The patient tolerated the procedure well without incident or complication and is in stable condition. * Care Plan - Steffi Park RN - 05/16/2025 3:41 PM EST Problem: Adult Inpatient Plan of Care Goal: Plan of Care Review Outcome: Ongoing, Progressing Flowsheets (Taken 05/16/2025 1540) Progress: improving Plan of Care Reviewed With: patient spouse Goal: Patient-Specific Goal (Individualized) Outcome: Ongoing, Progressing Goal: Absence of Hospital-Acquired Illness or Injury Outcome: Ongoing, Progressing Goal: Optimal Comfort and Wellbeing Outcome: Ongoing, Progressing Problem: Pain Acute Goal: Optimal Pain Control and Function Outcome: Ongoing, Progressing Problem: Fall Injury Risk Goal: Absence of Fall and Fall-Related Injury Outcome: Ongoing, Progressing Problem: Skin Injury Risk Increased Goal: Skin Health and Integrity Outcome: Ongoing, Progressing * Hospital Course - Conrado Park APRN - 05/16/2025 2:26 PM EST Dot Dale is a 69 y.o. female with a past medical history of IPMN s/p distal pancreatectomy and splenectomy on 03/20/25, history of CVA on aspirin, HLD , presented to [facility] hospital complaining of abdominal pain, rigors, and diaphoresis. Patient was subsequently admitted on 05/13/2025 for further ev aluation, and treatment. Hospital course significant for as follows: 05/14: IR place CT guided drain in abscess 05/19: removed LUQ drain 05/21: IR placed a pigtail chest tube 05/22: CT scan showed Large left pleural effusion and left lower lobe atelectasis. Trace right pleural effusion and mild right basal atelectatic changes. Fluid-filled structure along the left lower lobe may represent a loculated pleural fluid along the left major fissure versus pulmonary cyst. Thoracic surgery was consulted for persistent pleural effusion no changed after IR drain 05/25: Thoracic surgery exchanged IR drain to chest tube. 05/27: Thoracic surgery performed a VATs left lung decort placed 2 chest tubes 05/31: 28fr chest tube removed 06/01: 24fr chest tube removed Discharge medication to highlight: - Total Parenteral Nutrition (TPN): Patient will be discharged with TPN. [facility] will be managing, teaching and providing supplies to manage the pump and TPN. - Diabetes: Patient will be discharged on 24u of Lantus daily - Pain medication: Patient will be discharged with gabapentin, Robaxin and Tylenol for regular daily pain management. Patient will also be prescribed oxycodone for as needed breakthrough severe pain. - Restart home meds as listed below Significant to discharge: - PICC line: Patient will be discharged with a PICC line. The PICC line will be used for TPN. Patient has been set up with Home Health for weekly PICC line dressing change and lab draws. On 06/02/25, patient has been hemodynamically stable and deemed medically appropriate for discharge.Currently, the patient's pain is well controlled on an oral regimen. They have return of bowel function and are tolerating a regular diet with no nausea/vomiting. There were no difficulties voiding. The patient will be discharged to Home with Home Health. Follow-up appointments: - The patient will follow-up with Vibha Osborn APRN or Alesia Cui APRN in clinic in 1 week on 06/04/25 or 06/05/25 via telehealth. * Query Clarification Note - Conrado Park APRN - 05/16/2025 12:59 PM EST Physician Clarification Please review the following and provide your response below. Clinical Indicators: 05/13/25 18:44 05/15/25 02:18 05/16/25 00:20 Potassium 3.3 (L) 3.2 (L) 3.2 (L) Documentation in the medical record includes administration of: Potassium chloride IVPB x 6 doses on 05/15 Please provide in the Progress Notes the diagnosis associated with the medication listed above. [x] Hypokalemia [] Lab Values Insignificant [] Other explanation, please specify This documentation will become part of the patient's medical record. * Query Clarification Note - Conrado Park APRN - 05/16/2025 12:59 PM EST Physician Clarification Please review the following and provide your response below. Clinical Indicators: 05/15/25 02:18 05/16/25 00:20 Magnesium 1.4 (L) 2.0 Documentation in the medical record includes administration of: Magnesium sulfate IVPB 4g x 1 dose on 05/15 Please provide in the Progress Notes the diagnosis associated with the medication listed above. [x] Hypomagnesemia [] Lab Values Insignificant [] Other explanation, please specify This documentation will become part of the patient's medical record. * Progress Notes - Katie Pena RN - 05/16/2025 10:14 AM EST Case Management Adult Progress Note Dot Dale 69 y.o. female CSN: [id number] Admission: 05/13/2025 6:45 PM Primary Problem: Peripancreatic fluid collection Anticipated Discharge Date: 05/17 Has Discharge Plans Changed? Yes dc home with family assist. Cancelled [place] home health as patient declined. Notified Daniel Park NP. Cancelled referral to [facility] as no loger required. Medicare Second Notice: Housing Circumstances: Not Applicable Housing Circumstances Action Taken: Medically Ready for Discharge:No Additional Comments Katie Pena RN * Care Plan - Claribel Herron RN - 05/15/2025 11:31 PM EST Problem: Adult Inpatient Plan of Care Goal: Plan of Care Review Outcome: Ongoing, Progressing Flowsheets (Taken 05/15/20250) Progress: improving Plan of Care Reviewed With: patient Goal: Patient-Specific Goal (Individualized) Outcome: Ongoing, Progressing Goal: Absence of Hospital-Acquired Illness or Injury Outcome: Ongoing, Progressing Goal: Optimal Comfort and Wellbeing Outcome: Ongoing, Progressing Problem: Pain Acute Goal: Optimal Pain Control and Function Outcome: Ongoing, Progressing Problem: Fall Injury Risk Goal: Absence of Fall and Fall-Related Injury Outcome: Ongoing, Progressing Intervention: Identify and Manage Contributors Flowsheets (Taken 05/15/20252329) Self-Care Promotion: independence encouraged Problem: Skin Injury Risk Increased Goal: Skin Health and Integrity Outcome: Ongoing, Progressing Intervention: Optimize Skin Protection Flowsheets (Taken 05/15/20252329) Activity Management: activity adjusted per tolerance activity encouraged Pressure Reduction Techniques: frequent weight shift encouraged Head of Bed (HOB) Positioning: HOB elevated * Progress Notes - Conrado Park APRN - 05/15/2025 12:05 PM EST Images from the original note were not included. Department of Surgery Division of Surgical Oncology Surgery Progress Note 05/15/25 [place] Subjective Subjective: HPI 69F with history of distal pancreatectomy and splenectomy for IPMN. She had a pancreatic leak post op and had extended period with surgical drain in place that was removed on 04/23. Presented with worsening abdominal pain, rigors, diaphoresis. CT scan showed peripancreatic fluid collection. Newly febrile. 03/20/25: distal panc/spleen [Monica] Interval: Received IR drain yesterday. Drain amylase 186.Generalized abdominal pain requiring oxycodone. Febrile to 100.4 which responded to APAP. Soft BP. LUQ accordion 10. VTE prophylaxis held. WBC18.33 (20.0). K 3.2 repleted. Mg 1.4 repleted. Peripancreatic fluid collect numberous GPC pairs andchains. GNR, PMNs. Currently on zosyn. D5/LR/Kcl 20 @ 75. NPO. I/O: LUQ 10 Edited by: Conrado Park APRN at 05/15/2025 0622 Review of Systems: Relevant review of systems was obtained as able and is negative unless stated above in HPI. Objective Objective: Vital signs: Vitals: 05/15/25 1145 BP: 102/63 Pulse: 69 Resp: Temp: 36.4 ??C (97.5 ??F) SpO2: 91% Physical Exam: Physical Exam Vitals reviewed. HENT: Head: Normocephalic and atraumatic. Nose: Nose normal. Eyes: General: No scleral icterus. Extraocular Movements: Extraocular movements intact. Conjunctiva/sclera: Conjunctivae normal. Pulmonary: Effort: Pulmonary effort is normal. No respiratory distress. Abdominal: General: There is no distension. Palpations: Abdomen is soft. Tenderness: There is abdominal tenderness. There is no guarding or rebound. Musculoskeletal: General: No swelling. Normal range of motion. Cervical back: Normal range of motion. Skin: General: Skin is warm and dry. Coloration: Skin is not jaundiced. Neurological: General: No focal deficit present. Mental Status: She is alert and oriented to person, place, and time. Psychiatric: Mood and Affect: Mood normal. Behavior: Behavior normal. Thought Content: Thought content normal. Judgment: Judgment normal. Intake/Output Summary (Last 24 hours) at 05/15/2025 1205 Last data filed at 05/15/2025 1130 Gross per 24 hour Intake 3553.34 ml Output 290 ml Net 3263.34 ml Lines/Drains/Tubes: Patient Lines/Drains/Airways Status Active Airway None Output by Drain (mL) 05/13/25 07 - 05/13/25 1859 05/13/25 1900 - 05/14/25 0659 05/14/25 07 - 05/14/25 1859 05/14/25 1900 - 05/15/25 0659 05/15/25 0700 - 05/15/25 1205 Closed/Suction Drain 1 Lateral LUQ Accordion 10 Fr. 10 30 Labs in last 18 hours: CBC WBC 18.33 (H) Hb 11.0 (L) Plt 268 Hct 32.1 (L) ANC ?? INR ??, PTT ??, Anti-Xa ?? MCV 88 BMP Na 136 Cl 102 BUN 12 Glu 160 (H) K 3.2 (L) Co2 24 Cr 0.72 Ca 8.0 (L) iCa ?? Mg 1.4 (L), Phos 3.3 Lactate ?? LFT AST 31 AlkPhos 102 T Prot 6.0 (L) ALK 18 Bili 0.7 Alb ?? D.Bili ?? Lab Trends: H/H Results from last 7 days Lab Units 05/15/25 0218 05/13/25 1844 HEMOGLOBIN g/dL 11.0* 12.2 HEMATOCRIT % 32.1* 34.7 INR Cr Results from last 7 days Lab Units 05/15/25 0218 05/13/25 1844 CREATININE mg/dL 0.72 0.70 Lactate No lab exists for component: LACTTEVEN Radiographic Interpretation: I have reviewed the imaging above and agree with the radiologist interpretation. Medications reviewed. Vital signs reviewed. Labs reviewed. Assessment/Plan Assessment and Plan: Medical Problems Problem List * (Principal) Peripancreatic fluid collection CN III palsy, left Overview Addendum 03/31/2025 7:55 AM by Katlyn Hopkins APRN Hx of Abnormal blood electrolyte level Overview Signed 03/21/2025 9:54 AM by Katlyn Hopkins APRN - daily/PRN CMP, Mg, Phos - replete as appropriate - goal: K>4, phos>3, mg>2 HLD (hyperlipidemia) Overview Addendum 03/28/2025 8:24 AM by Katlyn Hopkins APRN Continue statin History of CVA (cerebrovascular accident) Overview Signed 03/21/2025 9:58 AM by Katlyn Hopkins APRN 11/2020 CT Head showed old left occipital & left temporal infarcts. On ASA 81mg daily. Leukocytosis Overview Addendum 04/04/2025 9:46 AM by Katlyn Hopkins APRN Down trending Daily CBC Abx: fidaxomicin (changed to Vancomycin due to cost on day of dc (03/30-04/09) levofloxacin/flagyl (03/30-04/12) Zosyn 03/29-03/30 zosyn [03/20-27] x48h post-op Cx: GI panel/C. Diff: +GDH- Toxin, all other negative (03/30) On total parenteral nutrition (TPN) Overview Addendum 04/04/2025 9:18 AM by Katlyn Hopkins APRN - initiated on 03/30/25, continue on dc -daily CMP,mg,phos -weekly pre-albumin, triglycerides Pituitary adenoma (CMS/HCC) Overview Deleted 03/21/2025 10:00 AM by Katlyn Hopkins APRN IPMN (intraductal papillary mucinous neoplasm) Overview Addendum 04/04/2025 9:18 AM by Katlyn Hopkins APRN 03/20/2025:ex-lap, SAMIA, distal pancreatectomy w/splenectomy, celiac axis node dissection [Monica] Keep DARIAN bulb on dc Present on Admission: Peripancreatic fluid collection Plan: [ ] schedule splenectomy vaccines - advance diet - drain amylase: 186 - body fluid culture growing: GPC in pairs and chains, and GNR Diet: CLD, D%NSK20@75 GI ppx: PPI Bowel Reg: -- Abx: zosyn Endo: -- DVT ppx: plov Pain: APAP, robaxin, oxy LDA: PIV, IR drain PT/OT: -- Edited by: Conrado Park APRN at 05/15/2025 1205 Dispo: Continue Current Level of Care Conrado Park APRN Cosigned by Lokesh Anderson MD at 05/19/2025 8:20 PM EST Associated attestation - Lokesh Anderson MD - 05/19/2025 8:20 PM EST I attest to being involved in more than half the total time in patient care. * Care Plan - Petr Frey, RN - 05/15/2025 11:14 AM EST Problem: Adult Inpatient Plan of Care Goal: Plan of Care Review Outcome: Ongoing, Progressing Flowsheets (Taken 05/15/2025 1113) Progress: improving Outcome Evaluation: pain improving Plan of Care Reviewed With: patient spouse Goal: Patient-Specific Goal (Individualized) Outcome: Ongoing, Progressing Flowsheets (Taken 05/15/2025 0806) Patient/Family-Specific Goals (Include Timeframe): Patient and family will be updated as available on plan and diet for the day Individualized Care Needs: Plan for today, do i get to eat or not Anxieties, Fears or Concerns: Will i be having a procedure today? Goal: Absence of Hospital-Acquired Illness or Injury Outcome: Ongoing, Progressing Goal: Optimal Comfort and Wellbeing Outcome: Ongoing, Progressing Problem: Adult Inpatient Plan of Care Goal: Patient-Specific Goal (Individualized) Outcome: Ongoing, Progressing Flowsheets (Taken 05/15/2025 0806) Patient/Family-Specific Goals (Include Timeframe): Patient and family will be updated as available on plan and diet for the day Individualized Care Needs: Plan for today, do i get to eat or not Anxieties, Fears or Concerns: Will i be having a procedure today? Problem: Adult Inpatient Plan of Care Goal: Absence of Hospital-Acquired Illness or Injury Outcome: Ongoing, Progressing Problem: Adult Inpatient Plan of Care Goal: Optimal Comfort and Wellbeing Outcome: Ongoing, Progressing Problem: Pain Acute Goal: Optimal Pain Control and Function Outcome: Ongoing, Progressing Problem: Fall Injury Risk Goal: Absence of Fall and Fall-Related Injury Outcome: Ongoing, Progressing Problem: Skin Injury Risk Increased Goal: Skin Health and Integrity Outcome: Ongoing, Progressing Intervention: Optimize Skin Protection Flowsheets (Taken 05/15/2025 1113) Activity Management: ambulated to bathroom * Nursing Note - Mukund Dyer RN - 05/14/2025 5:20 PM EST Images from the original note were not included. Vascular & Interventional Radiology Nurse Navigator Note Accordion Drain Care - Vascular & Interventional Radiology (VIR) *If patient is discharged with IR-placed drain, primary floor/bedside RN to educate patient/family on drain care and provide the following supplies (per drain) to patient at discharge. *If any supply is not available in floor stock, contact Materials [phone]. *Saline flushes can be supplied via [facility] B[facility]. About the accordion drainage system This drain helps remove fluid from a wound or from a space in your body. The tube stays in until the fluid slows down. The bag has a 1-way valve at the top. This keeps air and fluid out of the wound. Empty the bag at least once a day (at the same time each day) or any time it is full. Supplies you will take home Before you to home, we will give you these supplies (for each drain): 30 10-ml saline flushes--Can be supplied via [id number] where applicable. 30 alcohol pads 2 10-packs of 4 x 4 gauze pads 8 Tegaderm dressing 3 x 5 inch (if not allergic) 1 Paper medical tape 1 inch (if not allergic) Graduated cylinder (1 per drain) Printed drainage log Extra drainage bag for each drain (If a gravity collection bag is in use: SAP #75283. If an accordian drain bag is in use: SAP #74054) Either 1 Uresil flushable adapter SAP #905298 OR 1 3-way stopcock SAP #317 & 1 saline lock cap SAP #05484 [These parts can be used interchangeably to add a flush port to the drain tube. Please supply the part that is currently in use if available]. How to care for the drain Flush the drain with 10 ml normal saline every 12 hours. Check it each day. Record input and output on the Drainage Log. Track how much saline you flush in and how much fluid comes out. Try to do this at the same time each day. Take the Log with you to your follow-up visit. Use accordion suction - follow our instructions. Once the output is less than 10 ml a day for 48 hours, it may be time to take out the drain. Contact the [facility] at [phone], or discuss at your next follow-up visit. Clean the drain site at least once a week, or if it gets wet or dirty. Use warm soapy water and a clean cloth. Let it completely air dry before putting on a clean dressing. Apply a new dry dressing around the drain site. A large IV dressing should work best. Check your skin. If the skin near the drain is red or itchy, clean the area more often until it gets better. For example, clean the site twice a day. Attach the drain tube to your skin to keep it in place. Do this whether or not it is stitched in place. Keep the drain system dry. Follow up with [facility] at [phone] for appointments or questions. Follow the [id number] directions in the Flushable Drain Care handout. These directions will be printed and given to you before you leave the hospital. How to empty the drain Wash your hands thoroughly with soap and water. Unpin the drain from your clothes. Make sure it hangs below the drain site. Empty the drain bag. Pour fluid into a measuring container. Write the amount of drainage on your Log. If you have more than 1 drain, track them on separate sheets. Total the daily drainage at the same time each day or night. Bring all your Drainage Logs to your next clinic visit. Do not let the emptying valve touch the container or any other surface. This helps prevent infection. Measure the fluid, then pour it into the toilet. Gently squeeze air out of the bag and close it. Pin the drain back onto your clothes to keep it from being pulled out. Wash your hands after emptying drainage. This helps prevent infection. Squeeze the accordion to get the fluid draining. Once it is full, repeat these steps. Follow up and other appointments with the [facility] First follow-up visit. We will call you to schedule a follow-up visit with the Vascular and Interventional Radiology Clinic. You should be seen in our clinic within 2 weeks after leaving the hospital. If you have not been contacted to schedule this appointment, please contact the [facility] Clinic at [phone]. To schedule or reschedule a clinic visit, call [phone]. To reschedule a procedure, call our schedulers at [phone], option 4. [facility] location and phone number V[facility] & Interventional Radiology [facility], 1st floor [address], [address] [place] [address] In case of emergency For any emergency, please go to the nearest Emergency Room or dial 911. If you have questions or concerns about the drain Monday-Monday, 8 a.m.-4:30 p.m., call the [facility] at [phone]. After hours, weekends, and holidays, call [phone]. Ask for the Interventional Radiology provider clin application specialist. Drainage Log You must keep a daily log of your drain output. Each day, log the output from drain. Remember to subtract the amount of saline injected into catheter. Bring this log to your follow-up visits. Your name: Date Time Volume (in mL) Color of drainage Notes GAGAN Pham, RN, [facility] Nurse Navigator Interventional Radiology, [facility] * Juanbassam Stockton - Mukund Dyer RN - 05/14/2025 5:19 PM EST Images from the original note were not included. [id number] Taking Care of Your Flushable Drain Tube You have had a drain tube placed into space inside your body. This small tube comes out through your skin. It drains blood, infection, or fluid into a bag outside your body. Call your doctor if: If you see any of these signs the skin is infected: o red o swollen o tender to the touch o pulls away from the drain You have a fever of 101.5??F or higher. Worsening pain that was not there before. It may mean your drain tube is clogged if: ? Liquid comes out around the drain site when you try to flush it. ? You have new pain when you try to flush it. If you have any of the above symptoms, call by the next day (within 24 hours). *If your drain is pulled out or falls out, and you are not bleeding heavily, make an appointment tosee a healthcare provider within 3 days. *If your drain is pulled out or falls out, and you are having heavy bleeding, press a clean, dry towel firmly on the site for at least 10 minutes. If the towel is still soaking with blood after 10 minutes, call 911 or go to the nearest Emergency Room right away. [facility] Interventional Radiology Clinic [facility], 1st floor [address], [address] [place] [phone] Caring for your drain tube It is very important to take care of your drain tube to help prevent an infection. You should: ?? Change the bandage and clean the skin around the drain tube. Do this at least once a week or more often if the bandage gets wet or dirty. ?? ?Flush? the drain tube to keep it from getting clogged. Do this twice a day - once in the morning and once in the evening (or more often if your doctor tells you). Below are detailed instructions on how to change your bandage, clean around the drain tube, and flush the drain tube. There is also information on bathing, taking antibiotic medicines, and follow up visits. Changing the bandage Change the bandage and clean the skin around the drain tube at least once a week. If the bandage gets wet or dirty, change it and clean around the drain tube, even if you just changed the bandage theday before. You may change the bandage yourself or a family member or friend may do it for you. You need these supplies when you change the bandage and clean around the drain tube. ?? Plain soap and warm water or an alcohol-based hand book cleaner ?? Disposable medical gloves - (optional) they do not have to be sterile ?? Gauze pads (4x4s) -- you will need a total of four (4) ?? Clean wash cloth ?? Medical tape ?? Trash bag Step 1. Remove the old bandage ?? Gently remove the old dressing being sure not to pull on the tube. ?? Wash hands and put on gloves (if wearing gloves). ?? Carefully remove the old bandage. Press on the skin next to the drain tube with one hand and gently remove the tape with the other hand. ?? Throw the old bandage in the trash bag. ?? Look for signs of infection. Is the skin: ? red ? swollen ? tender to the touch ? pulled away from the drain tube Call your doctor if you have any of these signs of infection. Step 2: Clean the skin. ?? Hold the drain tube in place while you are cleaning around it so it does not pull out. Carefully hold the drain in place. ?? Wet a gauze 4x4 with soap and water. ?? Start cleaning where the drain tube comes out of the skin. ?? Wipe the skin gently in a [place], moving away from the drain tube in bigger and bigger circles. Clean the skin carefully. ?? Gently pat the skin with the clean washcloth until it is dry. Step 3: Put on a fresh bandage: two clean gauze 4x4s and tape. ?? Fold each gauze in half. ?? Place one on top of the drain tube. ?? Place one under the drain tube. ?? Tape on all sides. Tape on a new bandage. Flushing your drain tube Your doctor may want you to flush your drain tube daily. This helps keep the drain tube from getting clogged. Flush it as frequently as the doctor orders. You will need these supplies to flush your drain tube: ?? Plain soap and warm water or an alcohol-based hand book cleaner ?? Disposable medical gloves - (Optional) they do not have to be sterile ?? Stopcock or Adaptor Tube (See Last page for Directions) - we will give you one to take home ?? Saline solution - this comes in pre-filled syringes; you can buy these at most drug stores ?? Trash bag How to flush the drain tube: The person cleaning the drain tube should wash their hands with soap & water or hand cleanerand put on a new pair of medical gloves if they choose to. Wash hands and put on gloves (if wearing gloves). ?? Open the package of saline in a syringe. ?? Unscrew and remove the cap on the drain tube. Put the cap on a clean surface so that nothing touches the inside of the cap. If anything touches the inside of the cap, germs could get into your drain tube and you could get an infection. Drain tube cap. ? Turn the stopcock on the drain tube to the ?on? position. ? Slowly push the 10ml of saline solution into the drain tube. ? Attach syringe and flush drain tube. ? Turn the stopcock to the ?off? position. Turn the stopcock to the ?off? position. ?? Remove the syringe. ?? Screw the cap back on the drain tube. Use a new cap if you are not sure the old one is clean. ?? Remove your gloves and throw both the syringe and your gloves in the trash. How to Flush Your Drain Please Note: Depending on where your drain site is, your care team might have used a connector for your drain that looks like the one below. It does not have a stopcock. Follow these steps to flush this type of drain tube 1. Wash hands: The person cleaning the drain tube should wash their hands with soap and water or hand book cleaner. They can also put on a new pair of medical gloves if they want to. 2. Close the clamp: Close the plastic clamp. This makes sure the fluid goes into the part of the tube that's inside the body - and not straight into the drainage bag. 3. Open saline package: Open the package of saline in a syringe. 4. Clean the port: Clean the needleless port with an alcohol wipe. If you don't have alcohol wipes,use warm soapy water and a clean cloth. Hold the drain securely with one hand, then scrub the port back and forth for 15 seconds to remove germs. 5. Attach the syringe: Attach the syringe to the needleless port with a [id number]-[id number] motion. 6. Flush the tube: Push on the end of the saline syringe to flush the fluid through the tube. 7. Remove and dispose: Untwist the empty syringe and throw it away. (Next time you flush, use a newsyringe.) 8. Unclamp the clamp: When you do this, you should see the saline you just flushed flow into the drainage bag. (You might also see pus or blood mixed with the saline going into the bag.) Flushing the tube as ordered by your doctor helps keep your tube from getting blocked. If your drain does have a stopcock, follow the instructions in the section labeled ?Flushable Drain Tube.? Bathing ?? Do not take a tub bath or swim or sit in a hot tub while you have a drain tube. IF this is unavoidable, cover the entire site with an occlusive waterproof dressing to prevent it from getting wet. ?? Do take showers, but keep the area around the drain tube dry. Keep it dry by taping a piece of plastic wrap over it or by wrapping plastic wrap around your body to cover it. Antibiotics ?? Your doctor may want you to take an antibiotic. ?? Follow the instructions on the antibiotic medicine bottle. ?? Make sure you take all of the antibiotic. Don?t stop taking it before you have finished all the pills unless your doctor tells you. Follow up visit ?? It is important to return for a follow-up visit in 1-2 weeks to have your drain tube checked. ?? Write down any questions you have for the doctor and take them with you. ?? Make a list of the medicines you are taking and take it with you, or take in the actual medicines in their original bottles. [facility] Interventional Radiology Clinic [facility], 1st floor [address], [address] [place] [address] * Interval H&P Note - Elias Garcia MD - 05/14/2025 3:55 PM EST H&P reviewed. No changes. Source Note - Jelena Lou APRN, GERARDO - 05/14/2025 8:53 AM EST Images from the original note were not included. 05/14/25 Patient: Dot Dale Date of : 1955/69 y.o. Requesting Service: Lokesh Anderson MD Chief Complaint: Abdominal pain, nausea, vomiting Reason for Consult: Pancreatic bed abscess, consulted for drain History of Present Illness: Dot Dale is a 69 y.o. 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 Her course was complicated by failure to thrive requiring TPN, pancreatic leak requiring surgical drain placement for prolonged period which was recently removed on 04/23/2025. Since the drain was removed, she reported nausea, upset stomach and decreased appetite. CT abdomen pelvis on 05/13/2025 showed postoperative changes of resection of the majority of the pancreatic body and the spleen with interval development of fluid collection in the pancreatic bed measuring 2 x 9.5 cm concerning for leak from pancreatic resection margin, adjacent inflammatory changes.She remains hemodynamically stable but is febrile with T-max 101.1?? overnight. She is on IV Zosyn. VIR was consulted for pancreatic bed abscess drain placement. History and admission information obtained from chart review of primary and consulting teams notation, as well as speaking directly to consulting team. The following portions of the chart were reviewed this encounter and updated as appropriate: Review of Systems: 14 point ROS negative except for above. Past Medical History[1] Surgical History[2] Social History[3] Family History: Personally reviewed and noncontributory. Allergies[4] Objective: All laboratory, images, tracings, and vital sign data are personally reviewed unless otherwise noted. VITALS: Temp: [36.5 ??C (97.7 ??F)-38.4 ??C (101.1 ??F)] 36.5 ??C (97.7 ??F) Heart Rate: [80-110] 80 Resp: [16-18] 16 BP: (93-127)/(55-64) 93/55 Weight: 69.6 kg (153 lb 7 oz) Body mass index is 29.87 kg/m??. I & O SUMMARY No intake/output data recorded. No intake/output data recorded. MEDICATIONS: Current Medications[5] LABS (PAST 18Labs in last 18 hours) CBC WBC 20.00 (H) Hb 12.2 Plt 298 Hct 34.7 INR ?? PTT ?? Anti-Xa ?? BMP Na 129 (L) Cl 95 (L) BUN 16 Glu 146 (H) K 3.3 (L) Co2 25 Cr 0.70 Ca 8.7 (L) Mg ?? Phos ?? Lactate ?? LFT AST 39 (H) AlkPhos 114 T Prot 7.1 ALK 24 Bili 1.1 Alb ?? D.Bili ?? HOURS) EXAM: GENERAL: No acute distress EYES: No scleral icterus or conjunctivitis HENT: Atraumatic, normocephalic NECK: Supple RESP/CHEST: Symmetric expansion, non labored CARD: Regular rate and rhythm Extremities: No edema, cyanosis or clubbing; pedal pulses palpable +2 GI: No organomegaly or masses; soft, non-tender, non-distended SKIN: No rash, sores, lesions or subcutaneous nodules NEURO: Alert Radiographics/Diagnostics: Imaging personally reviewed and reviewed with attending. === 05/13/25 === CT ABDOMEN PELVIS W IV CONTRAST - Narrative - CLINICAL INDICATION: abd pain, recent abd surgery TECHNIQUE: Imaging of the abdomen and pelvis was performed, from lung bases through pubic symphysis, using spiral technique, following administration of IV contrast, Omnipaque 300, 100 mL. Delayed (excretory phase) images were performed through the kidneys. Reformatted images in the coronal and sagittal planes were generated from the axial data set to facilitate diagnostic accuracy. Total DLP (Dose-Length Product): 703.12 mGy.cm. Please note: The reported value represents the total of one or more individual components during the CT acquisition on this date and at this time, and as such, the same value may appear in more than one CT report depending on the interpreting/reporting physicians. COMPARISON: CT A/P 03/29/2025 FINDINGS: No consolidation lower lungs. Bibasilar atelectasis. Trace effusion in the posterior left costophrenic sulcus. No free abdominal gas. No free pelvic fluid, or significant free abdominal fluid. No acute hepatic parenchymal findings. Relatively similar appearance of intrahepatic biliary ductaldilation, with extrahepatic ductal dilation, as on the previous examination, with the proximal common bile duct measuring up to 18 mm in diameter, similar to prior, with appropriate distal tapering to the pancreatic head. Stable adrenal morphology. No acute renal findings. Postoperative changes of resection of the majority of the pancreatic body, and of the spleen. Interval removal of Jesus-Coppola drain previously in the pancreatic bed, with interval development of fluid collection in the pancreatic bed measuring 2 x 9.5 cm (). No internal gas. Surrounding haziness and stranding of the fat, with smaller foci of fluid extending into the base of the mesenteric root. There appears be normal enhancement of the pancreatic neck and head with surrounding fat haziness. No gastric distention. No evidence of a small bowel obstruction. Appendix not visualized, no suspicious pericecal findings. Pericolonic fat inflammatory changes at the splenic flexure, secondary to the above, no other pericolonic information. Diverticulosis without focal diverticulitis. No uterine enlargement, no concerning adnexal lesions. Calcified degenerated fibroid at the posterior fundus. Distended urinary bladder without wall thickening or perivesical inflammation. No concerning adenopathy by size criteria. Scattered aortoiliac vascular calcification without significant dilation of the aorta, the celiac and the SMA remain patent. The portal vein is patent, stenosis of the SMV as it enters the splenoportal confluence, otherwise patent. Interval removal of midline skin justyn. No significant excisional fascial defects, or subcutaneous fluid collections. No aggressive osseous lesions or interval changes. - Impression - 1. Postoperative changes of resection of the majority of the pancreatic body, and of the spleen. Interval removal of Jesus-Coppola drain previously in the pancreatic bed, with interval development offluid collection in the pancreatic bed measuring 2 x 9.5 cm, compatible with leak from the pancreatic resection margin. Adjacent inflammatory changes of the fat about the collection, and of the residual pancreas, correlate with serum lipase levels. 2. Similar intrahepatic and extrahepatic biliary duct dilation. 3. Trace effusion in the posterior left costophrenic sulcus, with adjacent atelectasis. CRITICAL RESULT: No. COMMUNICATION: Per this written report. Drafted by Nikolas Hernández MD on 05/13/2025 9:06 PM Final report signed by Nikolas Hernández MD on 05/13/2025 9:24 PM === 03/20/25 === XR ABDOMEN 1 VIEW - Narrative - CLINICAL INDICATION: Distention TECHNIQUE: Supine radiograph of the abdomen. COMPARISON: Abdominal x-ray one day ago 03/29/2025, 02/14/2025 CT abdomen and pelvis and 09/16/2024 MRI abdomen FINDINGS: Focal dilation of duodenal bulb/distal stomach measuring up to 4.3 cm in the right upper quadrant. When correlated with the recent CT examination this likely represents the dilated distal stomach. 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 Given the configuration on CT thisraises the possibility for partial gastric outlet obstruction secondary to the annular pancreas. Nodilated loops of small and large bowel. Midline cutaneous justyn and surgical drain in the upper abdomen. No large volume pneumoperitoneum. No pneumatosis. - Impression - Partial annular pancreas. Focal dilation of the distal stomach, similar to recent CT could represent partial obstruction and/or atypical ileus given adjacent surgery. No diffuse dilatation of the upstream stomach. CRITICAL RESULT: No. COMMUNICATION: Per this written report. 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5 cm concerning for leak from pancreatic resection margin and also air/fluid collection, adjacent inflammatory changes - Remains hemodynamically stable but is febrile with T-max 101.1?? overnight - She is on IV Zosyn - VIR was consulted for pancreatic bed abscess drain placement - INR ??, Plt 298, WBC 20 - VSS, Afebrile Chronic problems: Hx CVA on aspirin Hyperlipidemia - Management per primary team PLAN: - Will perform CT guided pancreatic bed drain placement today - Primary team to place specimen orders - Will consent prior to procedure - NPO and hold anticoagulation Case discussed with attending physician, Dr. Sequeira. Thank you for allowing us to participate in the care of this patient. Jelena Lou, PETROGRAPHER, DNP Interventional Radiology [phone] [1] Past Medical History: Diagnosis Date Cranial nerve III palsy High cholesterol Pancreatic cyst Unspecified injury of unspecified wrist, hand and finger(s), initial encounter Hand injury [2] Past Surgical History: Procedure Laterality Date CYSTOSCOPY ENDOSCOPY EXTERNAL - ECG EXTERNAL - ECG [3] Social History Tobacco Use Smoking status: Never Smokeless tobacco: Never Vaping Use Vaping status: Never Used Substance Use Topics Alcohol use: Never Drug use: Never [4] No Known Allergies [5] Current Facility-Administered Medications: acetaminophen (Tylenol) tablet 1,000 mg, 1,000 mg, Oral, q8h, Remington Flaherty MD, 1,000 mg at 05/14/25 0300 dextrose 5 % and sodium chloride 0.9 % with KCl 20 mEq/L infusion, 75 mL/hr, Intravenous, Continuous, Remington Flaherty MD, Last Rate: 75 mL/hr at 05/14/25 0240, 75 mL/hr at 05/14/25 0240 methocarbamol (Robaxin) tablet 500 mg, 500 mg, Oral, q6h PRN, Remington Flaherty MD ondansetron ODT (Zofran-ODT) disintegrating tablet 4 mg, 4 mg, Oral, q6h PRN OR ondansetron (Zofran) injection 4 mg, 4 mg, Intravenous, q6h PRN OR ondansetron (Zofran) 4 MG/5ML solution 4 mg,4 mg, Oral, q6h PRN, Remington Flaherty MD piperacillin-tazobactam (Zosyn) 3.375 g in sodium chloride 0.9% 100 mL IVPB (vial adapter required), 3.375 g, Intravenous, q6h, [place] PETROGRAPHER, Last Rate: 36.7 mL/hr at 05/14/25 0753, 3.375 g at 05/14/25 0753 Current Outpatient Medications: Adult 2-in-1 TPN, Infuse 70 mL/hr into a venous catheter continuously at 70 mL/hr over 24 hours (central line)., Disp: , Rfl: Alcohol Sheets (Alcoh-Wipe) sheet, Use as directed., Disp: 100 each, Rfl: 11 Alcohol Swabs (Alcohol Prep) 70 % pads, , Disp: , Rfl: amLODIPine (Norvasc) 5 MG tablet, Take 1 tablet by mouth daily., Disp: 30 tablet, Rfl: 1 aspirin 81 MG EC tablet, Take 1 tablet by mouth daily., Disp: , Rfl: atorvastatin (Lipitor) 80 MG tablet, Take 1 tablet by mouth daily., Disp: , Rfl: Blood Glucose Monitoring Suppl (True Metrix Meter) w/Device kit, , Disp: , Rfl: Blood Glucose Monitoring Suppl device, Check blood sugar, twice daily. Once, one hour after TPN disconnects, and one hour after TPN connection., Disp: 1 each, Rfl: 0 [Paused] Calcium Carb-Cholecalciferol (CALCIUM + VITAMIN D3 PO), Take by mouth. (Patient not taking: Reported on 04/23/2025), Disp: , Rfl: [Paused] calcium carbonate (Tums) 500 MG chewable tablet, Chew 1 tablet daily. (Patient not taking:Reported on 04/23/2025), Disp: , Rfl: ciprofloxacin (Cipro) 500 MG tablet, Take 1 tablet by mouth 2 times a day. (Patient not taking: Reported on 04/23/2025), Disp: , Rfl: [Paused] cyanocobalamin (Vitamin B-12) 1000 MCG tablet, Take 1 tablet by mouth 1 (one) time each day at the same time. (Patient not taking: Reported on 04/23/2025), Disp: , Rfl: fat emulsion fish/plant based (SMOFlipid) 20 %, Infuse 250 mL into a venous catheter every other day at 20.8 mL/hr over 12 hours., Disp: , Rfl: glucose blood test strip, Test two times daily, Disp: 100 strip, Rfl: 11 [Paused] HYDROcodone-acetaminophen ([place]) 5-325 MG tablet, every 4 hours as needed. (Patient not taking: Reported on 04/23/2025), Disp: , Rfl: insulin glargine (Lantus SoloStar) 100 UNIT/ML injection pen, Inject 8 Units under the skin 1 (one)time each day at the same time. Inject 8u one hour after TPN occupational health coordinator., Disp: 3 mL, Rfl: 0 Lancets misc, Test two times daily, Disp: 100 each, Rfl: 11 lidocaine (Lidoderm) 5 % patch, Apply 1 patch topically 1 (one) time each day at the same time over12 hours. Remove & discard patch within 12 hours or as directed by MD. (Patient not taking: Reported on 04/23/2025), Disp: 10 patch, Rfl: 0 ondansetron ODT (Zofran-ODT) 4 MG disintegrating tablet, Dissolve 1 tablet on the tongue every 8 hours as needed for nausea or vomiting., Disp: 20 tablet, Rfl: 0 oxyCODONE (Roxicodone) 5 MG immediate release tablet, Take 1 tablet by mouth every 8 hours as needed for moderate pain., Disp: 12 tablet, Rfl: 0 pantoprazole (Protonix) 40 MG EC tablet, Take 1 tablet by mouth daily. Do not crush, chew, or split., Disp: 90 tablet, Rfl: 0 pen needle, diabetic 31G X 5 MM misc, Use as directed with insulin pen., Disp: 100 each, Rfl: 11 * Pre-Procedure Note - Wilfredo Phillips - 05/14/2025 12:33 PM EST Images from the original note were not included. INTERVENTIONAL RADIOLOGY SEDATION PRE-PROCEDURAL ASSESSMENT AND PLAN OF CARE Indication for procedure: The primary encounter diagnosis was Abdominal pain, unspecified abdominallocation. A diagnosis of Nausea and vomiting, unspecified vomiting type was also pertinent to this visit. Planned Procedure: CT guided pancreatic bed drain placement Relevant past medical history: past medical history of intraductal pancreatic mucinous neoplasm status post distal pancreatectomy and splenectomy on 03/20/2025 Previous problems with surgery, anesthesia or sedation: No Previous family history or problems with anesthesia or sedation: No History of tobacco use, alcohol use, or substance abuse: Tobacco Use History[1], Social History Substance and Sexual Activity Alcohol Use Never , Social History Substance and Sexual Activity Drug Use Never Height and Weight: Visit Vitals BP 95/61 Pulse 82 Temp 36.4 ??C (97.5 ??F) Ht 1.626 m (5' 4 ) Wt 78.9 kg (174 lb) SpO2 92% BMI 29.87 kg/m?? Allergies to medication: Patient has no known allergies. Current medications: Current Medications[2] Relevant Labs: Lab Results Component Value Date CREATININE 0.70 05/13/2025 EGFR 92.6 05/13/2025 INR 1.0 02/26/2025 Planned Sedation/Anesthesia: Moderate Airway assessment: normal Mallampati Score: II (hard and soft palate, upper portion of tonsils anduvula visible) ASA: ASA 3 - Patient with moderate systemic disease with functional limitations Directed physical examination: Vitals: 05/14/25 1004 BP: 95/61 Pulse: 82 Resp: 18 Temp: 36.4 ??C (97.5 ??F) SpO2: 92% GENERAL: Awake, alert, NAD HEENT: NCAT, EOMI, sclera clear CARDIAC: NSR on monitor PULM: Symmetric chest rise, no accessory muscle use ABD: Non-distended EXT: Warm and well perfused, no LE edema SKIN: No rashes or lesions NEURO: A&Ox4, moving all extremities spontaneously Benefits, risks and alternatives of procedure and planned sedation have been discussed with the patient and/or their customer service representative teller. All questions answered and they agree to proceed. [1] Social History Tobacco Use Smoking Status Never Smokeless Tobacco Never [2] Current Facility-Administered Medications Medication Dose Route Frequency Provider Last Rate Last Admin acetaminophen (Tylenol) tablet 1,000 mg 1,000 mg Oral q8h Remington Flaherty MD 1,000 mg at 05/14/25 0300 dextrose 5 % and sodium chloride 0.9 % with KCl 20 mEq/L infusion 75 mL/hr Intravenous Continuous Remington Flaherty MD 75 mL/hr at 05/14/25 0240 75 mL/hr at 05/14/25 0240 methocarbamol (Robaxin) tablet 500 mg 500 mg Oral q6h PRN Remington Flaherty MD ondansetron ODT (Zofran-ODT) disintegrating tablet 4 mg 4 mg Oral q6h PRN Remington Flaherty MD Or ondansetron (Zofran) injection 4 mg 4 mg Intravenous q6h PRN Remington Flaherty MD Or ondansetron (Zofran) 4 MG/5ML solution 4 mg 4 mg Oral q6h PRN Remington Flaherty MD pantoprazole (Protonix) injection 40 mg 40 mg Intravenous Daily [place] APRN 40 mg at 05/14/25 1103 piperacillin-tazobactam (Zosyn) 3.375 g in sodium chloride 0.9% 100 mL IVPB (vial adapter required)3.375 g Intravenous q6h [place] APRN Stopped at 05/14/25 1103 sodium chloride 0.9 % flush 10 mL 10 mL Intravenous q12h Jelena Lou APRN, DNP 10 mL at 05/14/25 1103 And sodium chloride 0.9 % flush 10 mL 10 mL Intravenous PRN Jelena Lou APRN, GERARDO Current Outpatient Medications Medication Sig Dispense Refill amLODIPine (Norvasc) 5 MG tablet Take 1 tablet by mouth daily. 30 tablet 1 aspirin 81 MG EC tablet Take 1 tablet by mouth daily. atorvastatin (Lipitor) 80 MG tablet Take 1 tablet by mouth daily. pantoprazole (Protonix) 40 MG EC tablet Take 1 tablet by mouth daily. Do not crush, chew, or split.90 tablet 0 Adult 2-in-1 TPN Infuse 70 mL/hr into a venous catheter continuously at 70 mL/hr over 24 hours (central line). Alcohol Sheets (Alcoh-Wipe) sheet Use as directed. 100 each 11 Blood Glucose Monitoring Suppl device Check blood sugar, twice daily. Once, one hour after TPN disconnects, and one hour after TPN connection. 1 each 0 fat emulsion fish/plant based (SMOFlipid) 20 % Infuse 250 mL into a venous catheter every other dayat 20.8 mL/hr over 12 hours. glucose blood test strip Test two times daily 100 strip 11 insulin glargine (Lantus SoloStar) 100 UNIT/ML injection pen Inject 8 Units under the skin 1 (one) time each day at the same time. Inject 8u one hour after TPN occupational health coordinator. (Patient not taking: Reported on 05/14/2025) 3 mL 0 Lancets misc Test two times daily 100 each 11 lidocaine (Lidoderm) 5 % patch Apply 1 patch topically 1 (one) time each day at the same time over 12 hours. Remove & discard patch within 12 hours or as directed by MD. (Patient not taking: No sig reported) 10 patch 0 ondansetron ODT (Zofran-ODT) 4 MG disintegrating tablet Dissolve 1 tablet on the tongue every 8 hours as needed for nausea or vomiting. (Patient not taking: Reported on 05/14/2025) 20 tablet 0 oxyCODONE (Roxicodone) 5 MG immediate release tablet Take 1 tablet by mouth every 8 hours as neededfor moderate pain. (Patient not taking: Reported on 05/14/2025) 12 tablet 0 pen needle, diabetic 31G X 5 MM misc Use as directed with insulin pen. 100 each 11 Cosigned by Elias Garcia MD at 05/14/2025 3:57 PM EST * Progress Notes - Katie Pena RN - 05/14/2025 10:26 AM EST Case Management Adult Initial Progress Note Dot Dale 69 y.o. female CSN: [id number] Admission: 05/13/2025 6:45 PM Primary Problem: Peripancreatic fluid collection Optical Glass Inspector reviewed chart to complete this Initial Case Management Assessment. PCP: Golden Newell MD Emergency Contact: Extended Emergency Contact Information Primary Emergency Contact: gabriela dale Address: [address] [place] [address] [place] [address] Mobile Relation: Spouse Preferred language: Maori Tie Cutter needed? No Insurance: Primary Visit Coverage Payer Plan Sponsor Code Group Number Group Name HUMANA MEDICARE HU[employer]NA MEDICARE [id number] Primary Visit Coverage Subscriber Subscriber ID Subscriber Name Subscriber SSN Subscriber Address [id number] DOT DALE [id number] [place] [address] [place] [address] Patient information: Primary Caregiver: Self Support System: Immediate family Daily Living Activities: Functional Status: Minimum assistance Living Arrangements: Spouse/Significant other Type of Residence: Private residence, Single [address] [facility] [id number] Current DME: Equipment Currently Used at Home: walker, ousmane Income Information: Income/Expense Information: Income meets expenses Current Resources Utilized: None Housing Circumstances-Z Codes: Housing Circumstances (select all that apply): None Applicable Patient Referred to: Anticipated Discharge Date: 05/17 Patient's Discharge Goal: dc to home Assistance Available at Discharge: 16/01 Discharge Transport: spouse Follow Up Transport: spouse Home Health / Home Infusion / Outpatient Dialysis Services: [facility]- current for homr TPN, [place] home health current SN, PT OT CM notified both agencies patient is inaptient now at . Living Will/Advance Directive/Power of Rubble Placer /Guardian: Have you reviewed your Advance Directive and is it valid for this stay?: No Advance Directive: Patient does not have advance directive Information Provided on Healthcare Directives: No Pre-existing DNR/DNI Order: No Additional Comments: Katie Pena RN * Significant Event - Katie Pena RN - 05/14/2025 10:25 AM EST 05/14/25 1025 Housing Stability In the last 12 months, was there a time when you were not able to pay the mortgage or rent on time?N In the past 12 months, how many times have you moved where you were living? 0 At any time in the past 12 months, were you homeless or living in a detention (including now)? N Food Insecurity Within the past 12 months, you worried that your food would run out before you got the money to buymore. Never true Within the past 12 months, the food you bought just didn't last and you didn't have money to get more. Never true Utilities In the past 12 months has the [employer], gas, oil, or water [employer] threatened to shut off services in your home? No Transportation Needs In the past 12 months, has lack of transportation kept you from medical appointments or from getting medications? no In the past 12 months, has lack of transportation kept you from meetings, work, or from getting things needed for daily living? No Intimate Partner Violence Within the last year, have you been afraid of your partner or ex-partner? No Within the last year, have you been humiliated or emotionally abused in other ways by your partner or ex-partner? No Within the last year, have you been kicked, hit, slapped, or otherwise physically hurt by your partner or ex-partner? No Within the last year, have you been raped or forced to have any kind of sexual activity by your partner or ex-partner? No Help Needed Would you like help with any of the following needs? (Select ALL that apply) I don't want help withany of these * Consults - Jelena Lou APRN, GERARDO - 05/14/2025 8:53 AM ESTAssociated Order(s): IP CONSULT TO INTERVENTIONAL RADIOLOGY Images from the original note were not included. 05/14/25 Patient: Dot Dale Date of : 1955/69 y.o. Requesting Service: Lokesh Anderson MD Chief Complaint: Abdominal pain, nausea, vomiting Reason for Consult: Pancreatic bed abscess, consulted for drain History of Present Illness: Dot Dale is a 69 y.o. 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 Her course was complicated by failure to thrive requiring TPN, pancreatic leak requiring surgical drain placement for prolonged period which was recently removed on 04/23/2025. Since the drain was removed, she reported nausea, upset stomach and decreased appetite. CT abdomen pelvis on 05/13/2025 showed postoperative changes of resection of the majority of the pancreatic body and the spleen with interval development of fluid collection in the pancreatic bed measuring 2 x 9.5 cm concerning for leak from pancreatic resection margin, adjacent inflammatory changes.She remains hemodynamically stable but is febrile with T-max 101.1?? overnight. She is on IV Zosyn. VIR was consulted for pancreatic bed abscess drain placement. History and admission information obtained from chart review of primary and consulting teams notation, as well as speaking directly to consulting team. The following portions of the chart were reviewed this encounter and updated as appropriate: Review of Systems: 14 point ROS negative except for above. Past Medical History[1] Surgical History[2] Social History[3] Family History: Personally reviewed and noncontributory. Allergies[4] Objective: All laboratory, images, tracings, and vital sign data are personally reviewed unless otherwise noted. VITALS: Temp: [36.5 ??C (97.7 ??F)-38.4 ??C (101.1 ??F)] 36.5 ??C (97.7 ??F) Heart Rate: [80-110] 80 Resp: [16-18] 16 BP: (93-127)/(55-64) 93/55 Weight: 69.6 kg (153 lb 7 oz) Body mass index is 29.87 kg/m??. I & O SUMMARY No intake/output data recorded. No intake/output data recorded. MEDICATIONS: Current Medications[5] LABS (PAST 18Labs in last 18 hours) CBC WBC 20.00 (H) Hb 12.2 Plt 298 Hct 34.7 INR ?? PTT ?? Anti-Xa ?? BMP Na 129 (L) Cl 95 (L) BUN 16 Glu 146 (H) K 3.3 (L) Co2 25 Cr 0.70 Ca 8.7 (L) Mg ?? Phos ?? Lactate ?? LFT AST 39 (H) AlkPhos 114 T Prot 7.1 ALK 24 Bili 1.1 Alb ?? D.Bili ?? HOURS) EXAM: GENERAL: No acute distress EYES: No scleral icterus or conjunctivitis HENT: Atraumatic, normocephalic NECK: Supple RESP/CHEST: Symmetric expansion, non labored CARD: Regular rate and rhythm Extremities: No edema, cyanosis or clubbing; pedal pulses palpable +2 GI: No organomegaly or masses; soft, non-tender, non-distended SKIN: No rash, sores, lesions or subcutaneous nodules NEURO: Alert Radiographics/Diagnostics: Imaging personally reviewed and reviewed with attending. === 05/13/25 === CT ABDOMEN PELVIS W IV CONTRAST - Narrative - CLINICAL INDICATION: abd pain, recent abd surgery TECHNIQUE: Imaging of the abdomen and pelvis was performed, from lung bases through pubic symphysis, using spiral technique, following administration of IV contrast, Omnipaque 300, 100 mL. Delayed (excretory phase) images were performed through the kidneys. Reformatted images in the coronal and sagittal planes were generated from the axial data set to facilitate diagnostic accuracy. Total DLP (Dose-Length Product): 703.12 mGy.cm. Please note: The reported value represents the total of one or more individual components during the CT acquisition on this date and at this time, and as such, the same value may appear in more than one CT report depending on the interpreting/reporting physicians. COMPARISON: CT A/P 03/29/2025 FINDINGS: No consolidation lower lungs. Bibasilar atelectasis. Trace effusion in the posterior left costophrenic sulcus. No free abdominal gas. No free pelvic fluid, or significant free abdominal fluid. No acute hepatic parenchymal findings. Relatively similar appearance of intrahepatic biliary ductaldilation, with extrahepatic ductal dilation, as on the previous examination, with the proximal common bile duct measuring up to 18 mm in diameter, similar to prior, with appropriate distal tapering to the pancreatic head. Stable adrenal morphology. No acute renal findings. Postoperative changes of resection of the majority of the pancreatic body, and of the spleen. Interval removal of Jesus-Coppola drain previously in the pancreatic bed, with interval development of fluid collection in the pancreatic bed measuring 2 x 9.5 cm (). No internal gas. Surrounding haziness and stranding of the fat, with smaller foci of fluid extending into the base of the mesenteric root. There appears be normal enhancement of the pancreatic neck and head with surrounding fat haziness. No gastric distention. No evidence of a small bowel obstruction. Appendix not visualized, no suspicious pericecal findings. Pericolonic fat inflammatory changes at the splenic flexure, secondary to the above, no other pericolonic information. Diverticulosis without focal diverticulitis. No uterine enlargement, no concerning adnexal lesions. Calcified degenerated fibroid at the posterior fundus. Distended urinary bladder without wall thickening or perivesical inflammation. No concerning adenopathy by size criteria. Scattered aortoiliac vascular calcification without significant dilation of the aorta, the celiac and the SMA remain patent. The portal vein is patent, stenosis of the SMV as it enters the splenoportal confluence, otherwise patent. Interval removal of midline skin justyn. No significant excisional fascial defects, or subcutaneous fluid collections. No aggressive osseous lesions or interval changes. - Impression - 1. Postoperative changes of resection of the majority of the pancreatic body, and of the spleen. Interval removal of Jesus-Coppola drain previously in the pancreatic bed, with interval development offluid collection in the pancreatic bed measuring 2 x 9.5 cm, compatible with leak from the pancreatic resection margin. Adjacent inflammatory changes of the fat about the collection, and of the residual pancreas, correlate with serum lipase levels. 2. Similar intrahepatic and extrahepatic biliary duct dilation. 3. Trace effusion in the posterior left costophrenic sulcus, with adjacent atelectasis. CRITICAL RESULT: No. COMMUNICATION: Per this written report. Drafted by Nikolas Hernández MD on 05/13/2025 9:06 PM Final report signed by Nikolas Hernández MD on 05/13/2025 9:24 PM === 03/20/25 === XR ABDOMEN 1 VIEW - Narrative - CLINICAL INDICATION: Distention TECHNIQUE: Supine radiograph of the abdomen. COMPARISON: Abdominal x-ray one day ago 03/29/2025, 02/14/2025 CT abdomen and pelvis and 09/16/2024 MRI abdomen FINDINGS: Focal dilation of duodenal bulb/distal stomach measuring up to 4.3 cm in the right upper quadrant. When correlated with the recent CT examination this likely represents the dilated distal stomach. 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 Given the configuration on CT thisraises the possibility for partial gastric outlet obstruction secondary to the annular pancreas. Nodilated loops of small and large bowel. Midline cutaneous justyn and surgical drain in the upper abdomen. No large volume pneumoperitoneum. No pneumatosis. - Impression - Partial annular pancreas. Focal dilation of the distal stomach, similar to recent CT could represent partial obstruction and/or atypical ileus given adjacent surgery. No diffuse dilatation of the upstream stomach. CRITICAL RESULT: No. COMMUNICATION: Per this written report. 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5 cm concerning for leak from pancreatic resection margin and also air/fluid collection, adjacent inflammatory changes - Remains hemodynamically stable but is febrile with T-max 101.1?? overnight - She is on IV Zosyn - VIR was consulted for pancreatic bed abscess drain placement - INR ??, Plt 298, WBC 20 - VSS, Afebrile Chronic problems: Hx CVA on aspirin Hyperlipidemia - Management per primary team PLAN: - Will perform CT guided pancreatic bed drain placement today - Primary team to place specimen orders - Will consent prior to procedure - NPO and hold anticoagulation Case discussed with attending physician, Dr. Sequeira. Thank you for allowing us to participate in the care of this patient. Jelena Lou, PETROGRAPHER, DNP Interventional Radiology [phone] [1] Past Medical History: Diagnosis Date Cranial nerve III palsy High cholesterol Pancreatic cyst Unspecified injury of unspecified wrist, hand and finger(s), initial encounter Hand injury [2] Past Surgical History: Procedure Laterality Date CYSTOSCOPY ENDOSCOPY EXTERNAL - ECG EXTERNAL - ECG [3] Social History Tobacco Use Smoking status: Never Smokeless tobacco: Never Vaping Use Vaping status: Never Used Substance Use Topics Alcohol use: Never Drug use: Never [4] No Known Allergies [5] Current Facility-Administered Medications: acetaminophen (Tylenol) tablet 1,000 mg, 1,000 mg, Oral, q8h, Remington Flaherty MD, 1,000 mg at 05/14/25 0300 dextrose 5 % and sodium chloride 0.9 % with KCl 20 mEq/L infusion, 75 mL/hr, Intravenous, Continuous, Remington Flaherty MD, Last Rate: 75 mL/hr at 05/14/25 0240, 75 mL/hr at 05/14/25 0240 methocarbamol (Robaxin) tablet 500 mg, 500 mg, Oral, q6h PRN, Remington Flaherty MD ondansetron ODT (Zofran-ODT) disintegrating tablet 4 mg, 4 mg, Oral, q6h PRN OR ondansetron (Zofran) injection 4 mg, 4 mg, Intravenous, q6h PRN OR ondansetron (Zofran) 4 MG/5ML solution 4 mg,4 mg, Oral, q6h PRN, Remington Flaherty MD piperacillin-tazobactam (Zosyn) 3.375 g in sodium chloride 0.9% 100 mL IVPB (vial adapter required), 3.375 g, Intravenous, q6h, [place], PETROGRAPHER, Last Rate: 36.7 mL/hr at 05/14/25 0753, 3.375 g at 05/14/25 0753 Current Outpatient Medications: Adult 2-in-1 TPN, Infuse 70 mL/hr into a venous catheter continuously at 70 mL/hr over 24 hours (central line)., Disp: , Rfl: Alcohol Sheets (Alcoh-Wipe) sheet, Use as directed., Disp: 100 each, Rfl: 11 Alcohol Swabs (Alcohol Prep) 70 % pads, , Disp: , Rfl: amLODIPine (Norvasc) 5 MG tablet, Take 1 tablet by mouth daily., Disp: 30 tablet, Rfl: 1 aspirin 81 MG EC tablet, Take 1 tablet by mouth daily., Disp: , Rfl: atorvastatin (Lipitor) 80 MG tablet, Take 1 tablet by mouth daily., Disp: , Rfl: Blood Glucose Monitoring Suppl (True Metrix Meter) w/Device kit, , Disp: , Rfl: Blood Glucose Monitoring Suppl device, Check blood sugar, twice daily. Once, one hour after TPN disconnects, and one hour after TPN connection., Disp: 1 each, Rfl: 0 [Paused] Calcium Carb-Cholecalciferol (CALCIUM + VITAMIN D3 PO), Take by mouth. (Patient not taking: Reported on 04/23/2025), Disp: , Rfl: [Paused] calcium carbonate (Tums) 500 MG chewable tablet, Chew 1 tablet daily. (Patient not taking:Reported on 04/23/2025), Disp: , Rfl: ciprofloxacin (Cipro) 500 MG tablet, Take 1 tablet by mouth 2 times a day. (Patient not taking: Reported on 04/23/2025), Disp: , Rfl: [Paused] cyanocobalamin (Vitamin B-12) 1000 MCG tablet, Take 1 tablet by mouth 1 (one) time each day at the same time. (Patient not taking: Reported on 04/23/2025), Disp: , Rfl: fat emulsion fish/plant based (SMOFlipid) 20 %, Infuse 250 mL into a venous catheter every other day at 20.8 mL/hr over 12 hours., Disp: , Rfl: glucose blood test strip, Test two times daily, Disp: 100 strip, Rfl: 11 [Paused] HYDROcodone-acetaminophen ([place]) 5-325 MG tablet, every 4 hours as needed. (Patient not taking: Reported on 04/23/2025), Disp: , Rfl: insulin glargine (Lantus SoloStar) 100 UNIT/ML injection pen, Inject 8 Units under the skin 1 (one)time each day at the same time. Inject 8u one hour after TPN occupational health coordinator., Disp: 3 mL, Rfl: 0 Lancets misc, Test two times daily, Disp: 100 each, Rfl: 11 lidocaine (Lidoderm) 5 % patch, Apply 1 patch topically 1 (one) time each day at the same time over12 hours. Remove & discard patch within 12 hours or as directed by MD. (Patient not taking: Reported on 04/23/2025), Disp: 10 patch, Rfl: 0 ondansetron ODT (Zofran-ODT) 4 MG disintegrating tablet, Dissolve 1 tablet on the tongue every 8 hours as needed for nausea or vomiting., Disp: 20 tablet, Rfl: 0 oxyCODONE (Roxicodone) 5 MG immediate release tablet, Take 1 tablet by mouth every 8 hours as needed for moderate pain., Disp: 12 tablet, Rfl: 0 pantoprazole (Protonix) 40 MG EC tablet, Take 1 tablet by mouth daily. Do not crush, chew, or split., Disp: 90 tablet, Rfl: 0 pen needle, diabetic 31G X 5 MM misc, Use as directed with insulin pen., Disp: 100 each, Rfl: 11 * Care Plan - Vibha Stevens RN - 05/14/2025 8:06 AM EST Problem: Adult Inpatient Plan of Care Goal: Plan of Care Review Outcome: Ongoing, Progressing Flowsheets (Taken 05/14/2025 0804) Progress: no change Plan of Care Reviewed With: patient spouse Goal: Patient-Specific Goal (Individualized) Outcome: Ongoing, Progressing Flowsheets (Taken 05/14/2025803) Patient/Family-Specific Goals (Include Timeframe): pt will have tolerable pain during shift Individualized Care Needs: nausea and pain control Anxieties, Fears or Concerns: none Goal: Absence of Hospital-Acquired Illness or Injury Outcome: Ongoing, Progressing Intervention: Identify and Manage Fall Risk Flowsheets (Taken 05/14/2025803) Safety Promotion/Fall Prevention: activity supervised Intervention: Prevent Skin Injury Flowsheets (Taken 05/14/2025803) Body Position: weight shifting Intervention: Prevent Infection Flowsheets (Taken 05/14/2025803) Infection Prevention: hand hygiene promoted Goal: Optimal Comfort and Wellbeing Outcome: Ongoing, Progressing Intervention: Monitor Pain and Promote Comfort Flowsheets (Taken 05/14/2025803) Pain Management Interventions: medication (see MAR) emotional support Intervention: Provide Person-Centered Care Flowsheets (Taken 05/14/2025803) Trust Relationship/Rapport: care explained questions answered Problem: Pain Acute Goal: Optimal Pain Control and Function Outcome: Ongoing, Progressing Intervention: Optimize Psychosocial Wellbeing Flowsheets (Taken 05/14/2025803) Supportive Measures: active listening utilized Intervention: Develop Pain Management Plan Flowsheets (Taken 05/14/2025803) Pain Management Interventions: medication (see MAR) emotional support Intervention: Prevent or Manage Pain Flowsheets (Taken 05/14/2025803) Sensory Stimulation Regulation: visual stimulation minimized Bowel Elimination Promotion: privacy promoted Sleep/Rest Enhancement: regular sleep/rest pattern promoted Medication Review/Management: medications reviewed * H&P - Remington Flaherty MD - 05/14/2025 4:25 AM ESTAssociated Order(s): Consult to Surgical Oncology Images from the original note were not included. [facility] [place] [facility] Department of Surgery Division of Surgical Oncology History & Physical Note Reason for Consult: Peripancreatic fluid collection in patient with distal pancreatectomy and splenectomy Requesting Service: Emergency Department Consult Date and Time: 05/14/2025 @ 0450 Consult to Surgical Oncology Consult performed by: Remington Flaherty MD Consult ordered by: Zay Sheth MD Subjective History of Present Illness: Chief Complaint: abdominal pain, nausea, vomiting Dot Dale is a 69 y.o. female with PMHx significant for IPMN s/p distal pancreatectomy and splenectomy on 03/20/25, history of CVA on aspirin, HLD who presented to the [facility] on 05/13/2025 with abdominal pain, rigors, and diaphoresis. 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 Her post-operative course was complicated by failure to thrive requiring TPN, and pancreatic leak necessitating surgical drain to be in place for prolonged period. This drain was recently removed on 04/23/25. Since drain removal, she has been experiencing nausea, an upset stomach, miguelina decreased appetite. Approximately two weeks ago, her noted that she had been eating minimally. She was scheduled for an MRI and upper GI on the upcoming Monday but was unable to wait for evaluation at that time due to worsening abdominal pressure, diaphoresis, rigors, nausea, and vomiting. CT scan significant for peripancreatic fluid collection measuring 2 x 9.5 cm with associated inflammatory changes to the surrounding mesentery. She takes daily aspirin at home for history of CVA She reports no use of tobacco, alcohol, or drugs. 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 History of Present Illness Review of Systems: Relevant review of systems was obtained as able and is negative unless stated above in HPI. History Obtained From: Patient; chart review Past Medical History: Past Medical History[1] Allergies And Reactions: Allergies[2] Past Surgical History: Surgical History[3] Family Medical History: Family History[4] Reviewed and Non-contributory Social History: Social History Socioeconomic History Marital status: Spouse name: Not on file Number of children: Not on file Years of education: Not on file Highest education level: Not on file Occupational History Not on file Tobacco Use Smoking status: Never Smokeless tobacco: Never Vaping Use Vaping status: Never Used Substance and Sexual Activity Alcohol use: Never Drug use: Never Sexual activity: Defer Other Topics Concern Not on file Social History Narrative Not on file Social Drivers of Health Financial Resource Strain: Not on file Food Insecurity: No Food Insecurity (03/21/2025) Hunger Vital Sign Worried About Running Out of Food in the Last Year: Never true Ran Out of Food in the Last Year: Never true Transportation Needs: No Transportation Needs (03/21/2025) PRAPARE - Transportation Lack of Transportation (Medical): No Lack of Transportation (Non-Medical): No Physical Activity: Not on file Stress: Not on file Social Connections: Low Risk (07/07/2023) Received from [employer] ([place], [place], [place], [place], [place]) Family and Community Support Help with Day to Day Activities: Not on file Feeling Lonely or Isolated: Not on file Intimate Partner Violence: Not At Risk (03/21/2025) Humiliation, Afraid, Rape, and Kick questionnaire Fear of Current or Ex-Partner: No Emotionally Abused: No Physically Abused: No Sexually Abused: No Housing Stability: Low Risk (03/21/2025) Housing Stability Vital Sign Unable to Pay for Housing in the Last Year: No Number of Times Moved in the Last Year: 0 Homeless in the Last Year: No Immunizations: There is no immunization history on file for this patient. I have updated and confirmed the past medical, surgical, family and social history. Home Medications: Prior to Admission medications Medication [...] tells you to start again. Provider, Historical fat emulsion fish/plant based (SMOFlipid) 20 % Infuse 250 mL into a venous catheter every other dayat 20.8 mL/hr over 12 hours. 04/04/25 Katlyn Hopkins APRN glucose blood test strip Test two times daily 04/04/25 Katlyn Hopkins APRN [Paused] HYDROcodone-acetaminophen ([place]) 5-325 MG tablet every 4 hours as needed. Patient not taking: Reported on 04/23/2025 Wait to take this until your doctor or other care provider tells you to start again. Provider, Historical insulin glargine (Lantus SoloStar) 100 UNIT/ML injection pen Inject 8 Units under the skin 1 (one) time each day at the same time. Inject 8u one hour after TPN occupational health coordinator. 04/04/25 Katlyn Hopkins APRN Lancets misc Test two [...] with insulin pen. 04/04/25 Katlyn Hopkins APRN Anti-Thrombotic Medications: Is this patient taking warfarin, new oral anti-coagulant, or anti-platelet medication? Yes If Yes, What Medication: Aspirin Current Hospital Medications: Current Medications[5] Objective Objective: Visit Vitals BP 95/58 (BP Location: Left arm, Patient Position: Lying) Pulse 100 Temp (!) 38.3 ??C (101 ??F) (Oral) Ht 1.626 m (5' 4 ) Wt 79 kg (174 lb 2.6 oz) SpO2 92% BMI 29.90 kg/m?? @ Physical Exam: Physical Exam Vitals and nursing note reviewed. Constitutional: Appearance: She is ill-appearing. HENT: Head: Normocephalic. Mouth/Throat: Mouth: Mucous membranes are dry. Pharynx: Oropharynx is clear. Eyes: Conjunctiva/sclera: Conjunctivae normal. Cardiovascular: Rate and Rhythm: Tachycardia present. Pulmonary: Effort: Pulmonary effort is normal. Abdominal: General: Abdomen is flat. There is no distension. Palpations: Abdomen is soft. Tenderness: There is abdominal tenderness (LUQ to deep palpate). There is no guarding. Skin: General: Skin is cool and dry. Capillary Refill: Bounding capillary refill Coloration: Skin is not jaundiced. Comments: Well healed surgical incisions Neurological: Mental Status: She is alert. Laboratory: CBC WBC 20.00 (H) Hb 12.2 Plt 298 Hct 34.7 ANC 16.81 (H) INR ??, PTT ??, Anti-Xa ?? MCV 86 BMP Na 129 (L) Cl 95 (L) BUN 16 Glu 146 (H) K 3.3 (L) Co2 25 Cr 0.70 Ca 8.7 (L) iCa ?? Mg ??, Phos ?? Lactate ?? LFT AST 39 (H) AlkPhos 114 T Prot 7.1 ALK 24 Bili 1.1 Alb ?? D.Bili ?? Imaging: CT Abdomen Pelvis w IV Contrast Result Date: 05/13/2025 1. Postoperative changes of resection of the majority of the pancreatic body, and of the spleen. Interval removal of Jesus-Coppola drain previously in the pancreatic bed, with interval development offluid collection in the pancreatic bed measuring 2 x 9.5 cm, compatible with leak from the pancreatic resection margin. Adjacent inflammatory changes of the fat about the collection, and of the residual pancreas, correlate with serum lipase levels. 2. Similar intrahepatic and extrahepatic biliary duct dilation. 3. Trace effusion in the posterior left costophrenic sulcus, with adjacent atelectasis. CRITICAL RESULT: No. COMMUNICATION: Per this written report. Drafted by Nikolas Hernández MD on 05/13/2025 9:06 PM Final report signed by Nikolas Hernández MD on 05/13/2025 9:24 PM Radiographic Interpretation: I have reviewed the imaging above and agree with the radiologist interpretation. Assessment/Plan Assessment & Plan: Dot Dale is a 69 y.o. 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 New collection may represent a slow pancreatic leak given its appearance after drain removal. With new fever, will commence infectious workup. SGO to admit with IR consultation in the morning for percutaneous drain placement as well as fluid resuscitation given volume status. Assessment & Plan 1. Abdominal pain. The abdominal pain may be due to a combination of gastric paralysis and the presence of a peripancreatic fluid collection with associated inflammation. The CT scan shows a new fluid collection near the edge of the pancreas, which could be causing the pain. There are also inflammatory changes where the spleen used to be, which might be contributing to the discomfort. The incision from the previoussurgery has healed well, and the abdomen is soft, indicating no immediate surgical emergency. However, the patient appears to be in significant discomfort. Admission to the hospital is recommended for further evaluation and management. 2. Nausea. The nausea may be related to gastric paralysis following the previous surgery. This condition can slow down stomach emptying, leading to symptoms such as nausea and early satiety. She was previously scheduled for UGI on Monday. Will confer with O day team on if this will be performed inpatient. 3. Peripancreatic fluid collection. The CT scan reveals a new peripancreatic fluid collection, which could be due to subclinical pancreatitis or continuing leak after removal of the previous drain. Consultation with interventional radiology will be sought to determine if drainage is feasible. Dispo: Admit to O CODE STATUS: full code This Consult, Assessment, and Plan has been discussed with Dr. Sheth, Attending Physician Remington Flaherty MD General Surgery, PGY2 Pager: [1] Past Medical History: Diagnosis Date Cranial nerve III palsy High cholesterol Pancreatic cyst Unspecified injury of unspecified wrist, hand and finger(s), initial encounter Hand injury [2] No Known Allergies [3] Past Surgical History: Procedure Laterality Date CYSTOSCOPY ENDOSCOPY EXTERNAL - ECG EXTERNAL - ECG [4] Family History Problem Relation Name Age of Onset Cancer Mother Anesthesia problems Neg Hx Malig Hyperthermia Neg Hx [5] Current Facility-Administered Medications Medication Dose Route Frequency Provider Last Rate Last Admin acetaminophen (Tylenol) tablet 1,000 mg 1,000 mg Oral q8h Remington Flaherty MD 1,000 mg at 05/14/25 0300 dextrose 5 % and sodium chloride 0.9 % with KCl 20 mEq/L infusion 75 mL/hr Intravenous Continuous Remington Flaherty MD 75 mL/hr at 05/14/25 0240 75 mL/hr at 05/14/25 0240 methocarbamol (Robaxin) tablet 500 mg 500 mg Oral q6h PRN Remington Flaherty MD ondansetron ODT (Zofran-ODT) disintegrating tablet 4 mg 4 mg Oral q6h PRN Remington Flaherty MD Or ondansetron (Zofran) injection 4 mg 4 mg Intravenous q6h PRN Remington Flaherty MD Or ondansetron (Zofran) 4 MG/5ML solution 4 mg 4 mg Oral q6h PRN Remington Flaherty MD piperacillin-tazobactam (Zosyn) 4.5 g in sodium chloride 0.9% 100 mL IVPB (vial adapter required) 4.5 g Intravenous q6h Remington Flaherty MD 36.7 mL/hr at 05/14/25 0340 4.5 g at 05/14/25 0340 Current Outpatient Medications Medication Sig Dispense Refill Adult 2-in-1 TPN Infuse 70 mL/hr into a venous catheter continuously at 70 mL/hr over 24 hours (central line). Alcohol Sheets (Alcoh-Wipe) sheet Use as directed. 100 each 11 Alcohol Swabs (Alcohol Prep) 70 % pads amLODIPine (Norvasc) 5 MG tablet Take 1 tablet by mouth daily. 30 tablet 1 aspirin 81 MG EC tablet Take 1 tablet by mouth daily. atorvastatin (Lipitor) 80 MG tablet Take 1 tablet by mouth daily. Blood Glucose Monitoring Suppl (True Metrix Meter) w/Device kit Blood Glucose Monitoring Suppl device Check blood sugar, twice daily. Once, one hour after TPN disconnects, and one hour after TPN connection. 1 each 0 [Paused] Calcium Carb-Cholecalciferol (CALCIUM + VITAMIN D3 PO) Take by mouth. (Patient not taking:Reported on 04/23/2025) [Paused] calcium carbonate (Tums) 500 MG chewable tablet Chew 1 tablet daily. (Patient not taking: Reported on 04/23/2025) ciprofloxacin (Cipro) 500 MG tablet Take 1 tablet by mouth 2 times a day. (Patient not taking: Reported on 04/23/2025) [Paused] cyanocobalamin (Vitamin B-12) 1000 MCG tablet Take 1 tablet by mouth 1 (one) time each dayat the same time. (Patient not taking: Reported on 04/23/2025) fat emulsion fish/plant based (SMOFlipid) 20 % Infuse 250 mL into a venous catheter every other dayat 20.8 mL/hr over 12 hours. glucose blood test strip Test two times daily 100 strip 11 [Paused] HYDROcodone-acetaminophen ([place]) 5-325 MG tablet every 4 hours as needed. (Patient not taking: Reported on 04/23/2025) insulin glargine (Lantus SoloStar) 100 UNIT/ML injection pen Inject 8 Units under the skin 1 (one) time each day at the same time. Inject 8u one hour after TPN occupational health coordinator. 3 mL 0 Lancets misc Test two times daily 100 each 11 lidocaine (Lidoderm) 5 % patch Apply 1 patch topically 1 (one) time each day at the same time over 12 hours. Remove & discard patch within 12 hours or as directed by MD. (Patient not taking: Reported on 04/23/2025) 10 patch 0 ondansetron ODT (Zofran-ODT) 4 MG disintegrating tablet Dissolve 1 tablet on the tongue every 8 hours as needed for nausea or vomiting. 20 tablet 0 oxyCODONE (Roxicodone) 5 MG immediate release tablet Take 1 tablet by mouth every 8 hours as neededfor moderate pain. 12 tablet 0 pantoprazole (Protonix) 40 MG EC tablet Take 1 tablet by mouth daily. Do not crush, chew, or split.90 tablet 0 pen needle, diabetic 31G X 5 MM misc Use as directed with insulin pen. 100 each 11 Cosigned by Zay Sheth MD at 05/15/2025 11:35 PM EST Associated attestation - Zay Sheth MD - 05/15/2025 11:35 PM EST Images from the original note were not included. Attending Attestation: I personally evaluated the patient with the resident. I attest to being involved in providing substantive time in patient care. I discussed the case with them and agree with the findings as documented. The discussion and plan reflect my edits and medical decision making. Dr. Zay Sheth MD Meal Room Hand of Surgical Oncology [facility] * ED Provider Notes - Mendez Neumann MD - 05/13/2025 6:16 PM EST Images from the original note were not included. - HPI Chief Complaint Patient presents with Vomiting Nausea PIT Note Dot Dale is a 69 y.o. female who presents to ED with vomiting, nausea. Pt reports that she had apartial pancreatomy in February and had her spleen removed. Pt c/o abdominal pain, vomiting, and nausea. Visitor report that pt had a scan scheduled in the near future, but pt's symptoms have worsened so they brought her in. Patient denies fever, chills, cough, chest pain, shortness of breath, and diarrhea. History provided by: Patient dealmaker used: No MAIN ED NOTE//Mendez Neumann MD: I assumed full responsibility for this patient after transfer to Main ED from [facility]. I personally performed my own history, ROS, and physical. I agree with the above [facility] documentation with the following additions/exceptions: Dot Dale is a 69 y.o. female with a PMH of left CN III palsy, hx of CVA on ASA, hx of DVT, hypercholesterolemia, pituitary adenoma, and IPMN status post ex lap, distal pancreatectomy with splenectomy and lymph node dissection per Dr. Anderson who presents to the emergency department for evaluation ofprogressively worsening nausea, vomiting, and abdominal pain. She states that the abdominal pain isdiffuse. Patient previously had a drain in place which was removed. Since then, she feels that she has been ???going downhill. ?? she is eating and drinking less, has no appetite, in his constantly vomiting. She denies any fevers at home. She denies any chest pain or shortness of breath. She is having bowel movements. She has no other acute complaints or issues. Patient History Past Medical History[1] Surgical History[2] Family History[3] Social History[4] Allergies: Allergies[5] Physical Exam ED Triage Vitals [05/13/25 1818] Temp Heart Rate Resp BP 37.3 ??C (99.1 ??F) 110 16 127/64 SpO2 Temp Source Heart Rate Source Patient Position 95 % Oral -- Sitting BP Location FiO2 (%) Right arm -- Physical Exam Constitutional: General: She is not in acute distress. HENT: Head: Normocephalic. Comments: No facial swelling Mouth/Throat: Mouth: Mucous membranes are moist. Pharynx: Oropharynx is clear. Cardiovascular: Rate and Rhythm: Normal rate. Pulmonary: Effort: Pulmonary effort is normal. No respiratory distress. Breath sounds: Normal air entry. Comments: Speaking full sentences. Symmetric chest rise Abdominal: General: There is no distension. Tenderness: There is generalized abdominal tenderness. Musculoskeletal: General: No deformity. Normal range of motion. Cervical back: Normal range of motion. Comments: Atraumatic, moves all extremities spontaneously Neurological: Mental Status: She is alert. Mental status is at baseline. Comments: Awake Psychiatric: Behavior: Behavior normal. EASI ?? Total Score: 0 Katie Coma Scale Score: 15 Mini Nutritional Screening Score : 9 TRST Assessment Total: 1 ED Course & MDM PIT Note Date/Time: 05/13/2025/6:31 PM Entered by Octavio Branch, acting as scribe for Dr. Jemal Hargrove Scribe Attestation: This note was dictated to me, Octavio Branch, acting as a scribe for Dr. Jemal Hargrove Attending Attestation: The documentation was recorded by Octavio Branch acting as scribe in my presence at the time of the encounter and accurately reflects the service I personally performed. - Assessment: 69 y.o. female presents to ED with complaint of nausea, vomiting, abdominal pain. Differential Diagnosis: Intra-abdominal abscess, pancreatitis, UTI, sepsis, among others In order to fully explore the differential diagnosis the following treatments and tests were ordered: ED Medication Administration from 05/13/2025 1816 to 05/14/20259 Date/Time Order Dose Route Action 05/13/2025 1852 EST lactated Ringer's infusion 1,000 mL 1,000 mL Intravenous New Bag 05/13/2025 1900 EST morphine PF 4 mg 4 mg Intravenous Given 05/13/2025 1900 EST ondansetron (Zofran) injection 4 mg 4 mg Intravenous Given 05/13/20252013 EST iohexol (OMNIPaque) 300 MG/ML injection 100 mL 100 mL Intravenous Given 05/13/20252023 EST lactated Ringer's infusion 1,000 mL 0 mL Intravenous Stopped 05/14/2025 0148 EST morphine PF 4 mg 4 mg Intravenous Given All Other Orders Ordered Status Ordering Provider 05/14/25158 Intake and output Every 4 hours Acknowledged REMINGTON FLAHERTY 05/14/25158 Vital Signs - 11th Floor Every 4 hours Acknowledged REMINGTON FLAHERTY 05/14/25158 Check pulse oximetry - 11th Floor Every 4 hours Acknowledged REMINGTON FLAHERTY 05/14/25158 Weigh patient Daily Acknowledged REMINGTON FLAHERTY 05/14/25158 Sequential compression device Until discontinued Comments: SCDs must be in place and turned on EXCEPT when ACTIVELY ambulating. Acknowledged REMINGTON FLAHERTY 05/14/25158 Do Not Give Nicotine Replacement Until discontinued Acknowledged REMINGTON FLAHERTY 05/14/25158 Full code Continuous Acknowledged REMINGTON FLAHERTY 05/14/25158 NPO diet NPO except: Sips with meds Diet effective now Acknowledged REMINGTON FLAHERTY 05/14/25158 Mobility Orders Until discontinued Acknowledged REMINGTON FLAHERTY 05/14/25158 Notify physician (specify parameters) Until discontinued Acknowledged REMINGTON FLAHERTY 05/14/25158 Incentive spirometry Until discontinued Comments: Every 10 minutes Acknowledged REMINGTON FLAHERTY 05/14/25158 Insert peripheral IV Continuous Acknowledged REMINGTON FLAHERTY 05/14/25158 Admit to inpatient Once Acknowledged REMINGTON FLAHERTY 05/13/25 2221 Initiate Contact D Isolation Continuous Comments: Added via Instant Order OPA Acknowledged BPA, INSTANT ORDERS 05/13/25 1836 CMP STAT Final result JEMAL HARGROVE 05/13/25 183 Lipase STAT Final result JEMAL HARGROVE 05/13/25 183 CBC w/diff STAT Final result JEMAL HARGROVE 05/13/[address] Abdomen Pelvis w IV Contrast Once Final result JEMAL HARGROVE 05/13/25 183 Hepatitis C Antibody - ED Once Final result JEMAL HARGROVE 05/13/25 183 ED Protocol - HIV 1/2 Antibody/Antigen Screen Once Final result JEMAL HARGROVE 05/13/25 183 ED HIV 1/2 Antibody/Antigen Screen w/Reflex to HIV 1/2 Differentiation PROCEDURE ONCE Final result JEMAL HARGROVE ED Course: Upon initial evaluation, patient is in mild distress, hemodynamically stable, tachycardic with initial heart rate of 110, satting 98% on room air, with no focal neurologic deficits. Cardiopulmonary exam was benign. There is abdominal tenderness to palpation without peritoneal signs. Patient is afebrile and nontoxic appearing. Initial evaluation includes CBC, CMP, lipase, and CT abdomen and pelviswith IV contrast. This workup was significant for a peripancreatic fluid collection consistent withleak from the resection bed. This workup was significant for a WBC of 20, no derangements on CMP, anion gap within normal limits, and lipase within normal limits. Patient does have a leukocytosis, how ever this is in the context of a recent splenectomy. However, the platelet 2 WBC ratio is less than14 and the patient will needed to be followed closely for signs and symptoms of infection. The patient remained afebrile throughout her emergency department course. I discussed the patient's case with the surgical oncology service who agreed to evaluate the patient and admit the patient to their service. Rest of care per the surgical oncology service. Clinical Impressions as of 05/14/25234 Abdominal pain, unspecified abdominal location Nausea and vomiting, unspecified vomiting type Social Determinates of Health Risks (including Economic Stability, Education and level of understanding, Healthcare access and quality and concerning social factors): None identified on this visit Ultimately, this patient was was signed out to the oncoming provider (Signed Out) Patient care assumed by oncoming provider, Kriss Redding, at shift change, tentative plan at the time of sign-out was follow up on surgical Oncology recommendations ED Prescriptions None Disposition Admit Bed request comments: 11 please Admitting/Attending Physician: ZAY SHETH [[id number]] Provider Care Team: [facility] [[id number]] Are they the primary team?: Yes [1] - [1] Past Medical History: Diagnosis Date Cranial nerve III palsy High cholesterol Pancreatic cyst Unspecified injury of unspecified wrist, hand and finger(s), initial encounter Hand injury [2] Past Surgical History: Procedure Laterality Date CYSTOSCOPY ENDOSCOPY EXTERNAL - ECG EXTERNAL - ECG [3] Family History Problem Relation Name Age of Onset Cancer Mother Anesthesia problems Neg Hx Malig Hyperthermia Neg Hx [4] Tobacco Use Smoking status: Never Smokeless tobacco: Never Vaping Use Vaping status: Never Used Substance Use Topics Alcohol use: Never Drug use: Never [5] No Known Allergies Mendez Neumann MD Resident 05/14/25235 Cosigned by Lan Ledezma MD at 05/15/2025 8:30 AM EST Associated attestation - Lan Ledezma MD - 05/15/2025 8:30 AM EST I saw and evaluated the patient with the resident/fellow. I discussed the case with the resident/fellow and agree with the findings and plan as documented. * ED Triage Notes - Katlyn Norris RN - 05/13/2025 6:16 PM EST Pt with nausea/ vomiting and abdominal worsening since surgery in February. * Progress Notes - Verónica Redding DO - 05/13/2025 6:16 PM EST Images from the original note were not included. ED TRANSFER OF CARE NOTE Transferring provider: Thien Pedroza attending: Ishmael HOWELL Time: 11:50p I received sign-out and accepted care of this patient from the previous ED providers caring for this patient. I reviewed the patient's history, exam, work- up, and treatment plan up to this point. Please see the primary ED Provider Note for complete elements of the history, physical exam, and ED course. PERTINENT HISTORY: In brief, Dot Dale is a 69 y.o. 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 03/20/2025, the patient underwent ex-lap, SAMIA, distal pancreatectomy w/splenectomy, and celiac axis node dissection with Dr. Anderson. ED workup significant for hyponatremia likely in the setting of hypovolemia, patient receiving fluids in the ED. Leukocytosis of 20. Lipase within normal limits, not consistent with acute pancreatitis. Final CT reading significant for the following: Postoperative changes of resection of the majorityof the pancreatic body, and of the spleen. Interval removal of Jesus-Coppola drain previously in the pancreatic bed, with interval development of fluid collection in the pancreatic bed measuring 2 x 9.5 cm, compatible with leak from the pancreatic resection margin. Adjacent inflammatory changes of the fat about the collection, and of the residual pancreas Surgical Oncology was consulted for evaluation of this patient PENDING: I accepted care of this patient from the previous provider while waiting for evaluation and/or recommendations from: surgical oncology. Ultimately, the aforementioned service recommended admission ED Medication Administration from 05/13/2025 1816 to 05/14/2025 0159 Date/Time Order Dose Route Action 05/13/2025 1852 EST lactated Ringer's infusion 1,000 mL 1,000 mL Intravenous New Bag 05/13/2025 1900 EST morphine PF 4 mg 4 mg Intravenous Given 05/13/2025 190 EST ondansetron (Zofran) injection 4 mg 4 mg Intravenous Given 05/13/20252013 EST iohexol (OMNIPaque) 300 MG/ML injection 100 mL 100 mL Intravenous Given 05/13/20252023 EST lactated Ringer's infusion 1,000 mL 0 mL Intravenous Stopped 05/14/2025 0148 EST morphine PF 4 mg 4 mg Intravenous Given ED COURSE: Clinical Impressions as of 05/14/25 0255 Abdominal pain, unspecified abdominal location Nausea and vomiting, unspecified vomiting type Ultimately, this patient Was admitted (Admission) The primary encounter diagnosis was Abdominal pain, unspecified abdominal location. A diagnosis of Nausea and vomiting, unspecified vomiting type was also pertinent to this visit.. Patient believed to require admission for the listed diagnoses. The surgical oncology service was consulted for admission and was agreeable to admit to Acute Floor (Med/Surg). ED Prescriptions None Disposition Admit Bed request comments: 11-100 please Admitting/Attending Physician: ZAY SHETH [[id number]] Provider Care Team: [facility] [[id number]] Are they the primary team?: Yes [1] - Verónica Redding DO Cosigned by Stanley Quiñones MD at 05/16/2025 4:24 PM EST Associated attestation - Stanley Quiñones MD - 05/16/2025 4:24 PM EST Seen by resident only. documented in this encounter Plan of Treatment Upcoming Encounters Date Type Department Care Team (Late st Contact Info) Description 06/13/2025 10:00 AM EST Office Visit [facility] [address] [place] [address] Vibha Osborn, PETROGRAPHER [address] [place] [id number] Pending Results Name Type Priority Associated Diagnoses Date /Time Fungal Culture, Sterile Body Fluid (NOT CSF) and MODESTO Microbiology Routine 05/27/2025 6:3 4 PM EST Scheduled Referrals Name Type Priority Associated Diagnoses Order Schedule Discharge Ambulatory referral to [facility] Outpatient Referral Routine Peripancreatic fluid collection Expected: 05/28/2025, Expires: 11/15/2026 Discharge Ambulatory referral to NON [facility] Outpatient Referral Routine Abdominal pain, unspecified abdominal location 1 Occurrences starting 05/16/2025 until 11/17/2026 Discharge Ambulatory referral to NON [facility] Outpatient Referral Routine Abdominal pain, unspecified abdominal location IPMN (intraductal papillary mucinous neoplasm) Pituitary adenoma (CMS/HCC) 1 Occurrences starting 05/20/2025 until 11/21/2026 Discharge Ambulatory Referral to [facility] Outpatient Referral Routine On total parenteral nutrition (TPN) Expected: 06/02/2025 (Approximate), Expires: 12/04/2026 Discharge Ambulatory referral to [facility] Outpatient Referral Routine On total parenteral nutrition (TPN) 1 Occurrences starting 06/02/2025 until 12/04/2026 Discharge Ambulatory referral to [facility] Outpatient Referral Routine Abdominal pain, unspecified abdominal location 1 Occurrences starting 06/02/2025 until 12/04/2026 documented as of this encounter Goals Goal Patient Goal Type Associated Problems Recent Progress Patient-Stated? Author Autogenerat ed Goal Care Plan Autogenerated Problem No Jennifer Sabillon Autogenerat ed Goal Care Plan Autogenerated Problem No Lokesh Anderson MD documented as of this encounter Procedures Procedure Name Priority Date/Time Associated Diagnosis Comments POCT GLUCOSE METER UNSOLICITED RESULTS Routine 06/02/2025 11:32 AM EST POCT GLUCOSE METER UNSOLICITED RESULTS Routine 06/02/2025 5:37 AM EST CBC W/O DIFFERENTIAL Routine 06/02/2025 3:29 AM EST PHOSPHORUS, PLASMA Routine 06/02/2025 3: 29 AM EST MAGNESIUM, PLASMA Routine 06/02/2025 3:2 9 AM EST COMPREHENSIVE METABOLIC PANEL, PLASMA Routine 06/02/2025 3:29 AM EST POCT GLUCOSE METER UNSOLICITED RESULTS Routine 06/02/2025 12:01 AM EST POCT GLUCOSE METER UNSOLICITED RESULTS Routine 06/01/2025 10:07 PM EST POCT GLUCOSE METER UNSOLICITED RESULTS Routine 06/01/2025 5:26 PM EST CHEST PHYSIOTHERAPY / AIRWAY CLEARANCE Routine 06/01/2025 3:00 PM EST XR CHEST 1 VIEW Timed 06/01/2025 2:51 PM EST POCT GLUCOSE METER UNSOLICITED RESULTS Routine 06/01/2025 11:48 AM EST CHEST PHYSIOTHERAPY / AIRWAY CLEARANCE Routine 06/01/2025 9:00 AM EST OXYGEN THERAPY Routine 06/01/2025 8:00 AM EST XR CHEST 1 VIEW STAT 06/01/2025 7:01 AM EST POCT GLUCOSE METER UNSOLICITED RESULTS Routine 06/01/2025 6:02 AM EST CBC W/O DIFFERENTIAL Routine 06/01/2025 4:10 AM EST PHOSPHORUS, PLASMA Routine 06/01/2025 4: 10 AM EST MAGNESIUM, PLASMA Routine 06/01/2025 4:1 0 AM EST COMPREHENSIVE METABOLIC PANEL, PLASMA Routine 06/01/2025 4:10 AM EST CHEST PHYSIOTHERAPY / AIRWAY CLEARANCE Routine 06/01/2025 3:00 AM EST POCT GLUCOSE METER UNSOLICITED RESULTS Routine 05/31/2025 11:31 PM EST CHEST PHYSIOTHERAPY / AIRWAY CLEARANCE Routine 05/31/2025 9:00 PM EST OXYGEN THERAPY Routine 05/31/2025 8:00 PM EST POCT GLUCOSE METER UNSOLICITED RESULTS Routine 05/31/2025 6:04 PM EST CHEST PHYSIOTHERAPY / AIRWAY CLEARANCE Routine 05/31/2025 3:00 PM EST XR CHEST 1 VIEW Timed 05/31/2025 2:10 PM EST POCT GLUCOSE METER UNSOLICITED RESULTS Routine 05/31/2025 11:30 AM EST CHEST PHYSIOTHERAPY / AIRWAY CLEARANCE Routine 05/31/2025 9:00 AM EST OXYGEN THERAPY Routine 05/31/2025 8:00 AM EST POCT GLUCOSE METER UNSOLICITED RESULTS Routine 05/31/2025 5:37 AM EST XR CHEST 1 VIEW Routine 05/31/2025 5:19 AM EST CBC W/O DIFFERENTIAL Routine 05/31/2025 4:57 AM EST PHOSPHORUS, PLASMA Routine 05/31/2025 4: 57 AM EST MAGNESIUM, PLASMA Routine 05/31/2025 4:5 7 AM EST COMPREHENSIVE METABOLIC PANEL, PLASMA Routine 05/31/2025 4:57 AM EST CHEST PHYSIOTHERAPY / AIRWAY CLEARANCE Routine 05/31/2025 3:00 AM EST POCT GLUCOSE METER UNSOLICITED RESULTS Routine 05/31/2025 12:20 AM EST POCT GLUCOSE METER UNSOLICITED RESULTS Routine 05/30/2025 9:25 PM EST CHEST PHYSIOTHERAPY / AIRWAY CLEARANCE Routine 05/30/2025 9:00 PM EST OXYGEN THERAPY Routine 05/30/2025 8:00 PM EST POCT GLUCOSE METER UNSOLICITED RESULTS Routine 05/30/2025 4:57 PM EST CHEST PHYSIOTHERAPY / AIRWAY CLEARANCE Routine 05/30/2025 3:00 PM EST POCT GLUCOSE METER UNSOLICITED RESULTS Routine 05/30/2025 12:05 PM EST XR CHEST 1 VIEW Timed 05/30/2025 11:29 AM EST CHEST PHYSIOTHERAPY / AIRWAY CLEARANCE Routine 05/30/2025 9:00 AM EST OXYGEN THERAPY Routine 05/30/2025 8:00 AM EST POCT GLUCOSE METER UNSOLICITED RESULTS Routine 05/30/2025 8:00 AM EST POCT GLUCOSE METER UNSOLICITED RESULTS Routine 05/30/2025 5:50 AM EST XR CHEST 1 VIEW Routine 05/30/2025 5:11 AM EST CBC W/O DIFFERENTIAL Routine 05/30/2025 3:47 AM EST TRIGLYCERIDES, PLASMA Add-On 05/30/2025 3:47 AM EST PHOSPHORUS, PLASMA Routine 05/30/2025 3: 47 AM EST MAGNESIUM, PLASMA Routine 05/30/2025 3:4 7 AM EST COMPREHENSIVE METABOLIC PANEL, PLASMA Routine 05/30/2025 3:47 AM EST CHEST PHYSIOTHERAPY / AIRWAY CLEARANCE Routine 05/30/2025 3:00 AM EST POCT GLUCOSE METER UNSOLICITED RESULTS Routine 05/29/2025 11:42 PM EST CHEST PHYSIOTHERAPY / AIRWAY CLEARANCE Routine 05/29/2025 9:00 PM EST OXYGEN THERAPY Routine 05/29/2025 8:00 PM EST POCT GLUCOSE METER UNSOLICITED RESULTS Routine 05/29/2025 5:37 PM EST CHEST PHYSIOTHERAPY / AIRWAY CLEARANCE Routine 05/29/2025 3:00 PM EST POCT GLUCOSE METER UNSOLICITED RESULTS Routine 05/29/2025 12:06 PM EST PEP THERAPY Routine 05/29/2025 9:00 AM EST CHEST PHYSIOTHERAPY / AIRWAY CLEARANCE Routine 05/29/2025 9:00 AM EST POCT GLUCOSE METER UNSOLICITED RESULTS Routine 05/29/2025 8:21 AM EST OXYGEN THERAPY Routine 05/29/2025 8:00 AM EST XR CHEST 1 VIEW Routine 05/29/2025 4:57 AM EST CBC W/O DIFFERENTIAL Routine 05/29/2025 3:55 AM EST PHOSPHORUS, PLASMA Routine 05/29/2025 3: 55 AM EST MAGNESIUM, PLASMA Routine 05/29/2025 3:5 5 AM EST COMPREHENSIVE METABOLIC PANEL, PLASMA Routine 05/29/2025 3:55 AM EST POCT GLUCOSE METER UNSOLICITED RESULTS Routine 05/29/2025 3:08 AM EST PEP THERAPY Routine 05/29/2025 3:00 AM EST CHEST PHYSIOTHERAPY / AIRWAY CLEARANCE Routine 05/29/2025 3:00 AM EST POCT GLUCOSE METER UNSOLICITED RESULTS Routine 05/28/2025 11:10 PM EST PEP THERAPY Routine 05/28/2025 9:00 PM EST CHEST PHYSIOTHERAPY / AIRWAY CLEARANCE Routine 05/28/2025 9:00 PM EST OXYGEN THERAPY Routine 05/28/2025 8:00 PM EST PEP THERAPY Routine 05/28/2025 7:36 PM EST PEP THERAPY Routine 05/28/2025 7:36 PM EST PEP THERAPY Routine 05/28/2025 7:36 PM EST CHEST PHYSIOTHERAPY / AIRWAY CLEARANCE Routine 05/28/2025 7:36 PM EST CHEST PHYSIOTHERAPY / AIRWAY CLEARANCE Routine 05/28/2025 7:36 PM EST CHEST PHYSIOTHERAPY / AIRWAY CLEARANCE Routine 05/28/2025 7:36 PM EST CHEST PHYSIOTHERAPY / AIRWAY CLEARANCE Routine 05/28/2025 7:36 PM EST POCT GLUCOSE METER UNSOLICITED RESULTS Routine 05/28/2025 6:04 PM EST POCT GLUCOSE METER UNSOLICITED RESULTS Routine 05/28/2025 1:14 PM EST CHEST PHYSIOTHERAPY / AIRWAY CLEARANCE Routine 05/28/2025 10:06 AM EST CHEST PHYSIOTHERAPY / AIRWAY CLEARANCE Routine 05/28/2025 10:06 AM EST CHEST PHYSIOTHERAPY / AIRWAY CLEARANCE Routine 05/28/2025 10:06 AM EST CHEST PHYSIOTHERAPY / AIRWAY CLEARANCE Routine 05/28/2025 10:06 AM EST OXYGEN THERAPY Routine 05/28/2025 8:00 AM EST POCT GLUCOSE METER UNSOLICITED RESULTS Routine 05/28/2025 7:53 AM EST XR CHEST 1 VIEW Timed 05/28/2025 6:25 AM EST CBC W/O DIFFERENTIAL Routine 05/28/2025 4:59 AM EST PHOSPHORUS, PLASMA Routine 05/28/2025 4: 59 AM EST MAGNESIUM, PLASMA Routine 05/28/2025 4:5 9 AM EST COMPREHENSIVE METABOLIC PANEL, PLASMA Routine 05/28/2025 4:59 AM EST POCT GLUCOSE METER UNSOLICITED RESULTS Routine 05/28/2025 4:56 AM EST POCT GLUCOSE METER UNSOLICITED RESULTS Routine 05/27/2025 11:46 PM EST OXYGEN THERAPY Routine 05/27/2025 8:00 PM EST POCT GLUCOSE METER UNSOLICITED RESULTS Routine 05/27/2025 7:56 PM EST XR CHEST 1 VIEW STAT 05/27/2025 7:24 PM EST AMYLASE, PLEURAL FLUID Routine 6:34 PM EST FUNGAL CULTURE, STERILE BODY FLUID (NOT CSF) AND MO[place]STO Routine 05/27/2025 6:34 PM EST LIPASE, FLUID (SO) Routine 05/27/2025 6: 34 PM EST BODY FLUID CULTURE AND GRAM STAIN Routine 05/27/2025 6:34 PM EST ANAEROBIC CULTURE Routine 05/27/2025 6:3 4 PM EST OXYGEN THERAPY Routine 05/27/2025 5:59 PM EST OXYGEN THERAPY Routine 05/27/2025 5:59 PM EST OXYGEN THERAPY Routine 05/27/2025 5:59 PM EST TRANSFUSE RED BLOOD CELLS Routine 05/27/2025 5:29 PM EST PREPARE RBC STAT 05/27/2025 4:23 PM EST AZ THORACOSCOPY SURG TOT PULM DECORT 05/27/2025 3:14 PM EST Pleural effusion POCT GLUCOSE METER UNSOLICITED RESULTS Routine 05/27/2025 2:35 PM EST POCT GLUCOSE METER UNSOLICITED RESULTS Routine 05/27/2025 12:23 PM EST TYPE AND SCREEN Routine 05/27/2025 11:33 AM EST XR CHEST 1 VIEW Timed 05/27/2025 5:27 AM EST CBC W/O DIFFERENTIAL Routine 05/27/2025 4:52 AM EST PHOSPHORUS, PLASMA Routine 05/27/2025 4: 52 AM EST MAGNESIUM, PLASMA Routine 05/27/2025 4:5 2 AM EST COMPREHENSIVE METABOLIC PANEL, PLASMA Routine 05/27/2025 4:52 AM EST POCT GLUCOSE METER UNSOLICITED RESULTS Routine 05/27/2025 4:51 AM EST POCT GLUCOSE METER UNSOLICITED RESULTS Routine 05/27/2025 12:04 AM EST POCT GLUCOSE METER UNSOLICITED RESULTS Routine 05/26/2025 5:56 PM EST POCT GLUCOSE METER UNSOLICITED RESULTS Routine 05/26/2025 12:02 PM EST CBC W/O DIFFERENTIAL Routine 05/26/2025 5:50 AM EST PHOSPHORUS, PLASMA Routine 05/26/2025 5: 50 AM EST MAGNESIUM, PLASMA Routine 05/26/2025 5:5 0 AM EST COMPREHENSIVE METABOLIC PANEL, PLASMA Routine 05/26/2025 5:50 AM EST POCT GLUCOSE METER UNSOLICITED RESULTS Routine 05/26/2025 5:47 AM EST XR CHEST 1 VIEW Timed 05/26/2025 2:19 AM EST POCT GLUCOSE METER UNSOLICITED RESULTS Routine 05/25/2025 11:56 PM EST POCT GLUCOSE METER UNSOLICITED RESULTS Routine 05/25/2025 5:50 PM EST XR CHEST 1 VIEW STAT 05/25/2025 1:36 PM EST POCT GLUCOSE METER UNSOLICITED RESULTS Routine 05/25/2025 12:42 PM EST HC TUBE THORACOSTOMY INCLUDES WATER SEAL Routine 05/25/2025 12:40 PM EST Pleural effusion AZ TUBE THORACOSTOMY INCLUDES WATER SEAL Routine 05/25/2025 12:40 PM EST Pleural effusion AMYLASE, DRAIN FLUID Routine 05/25/2025 12:37 PM EST LIPASE, FLUID (SO) Routine 05/25/2025 12:37 PM EST POCT GLUCOSE METER UNSOLICITED RESULTS Routine 05/25/2025 11:32 AM EST XR CHEST 1 VIEW STAT 05/25/2025 6:47 AM EST CBC W/O DIFFERENTIAL Routine 05/25/2025 5:07 AM EST PHOSPHORUS, PLASMA Routine 05/25/2025 5: 07 AM EST MAGNESIUM, PLASMA Routine 05/25/2025 5:0 7 AM EST COMPREHENSIVE METABOLIC PANEL, PLASMA Routine 05/25/2025 5:07 AM EST POCT GLUCOSE METER UNSOLICITED RESULTS Routine 05/25/2025 5:04 AM EST POCT GLUCOSE METER UNSOLICITED RESULTS Routine 05/24/2025 11:11 PM EST POCT GLUCOSE METER UNSOLICITED RESULTS Routine 05/24/2025 6:06 PM EST POCT GLUCOSE METER UNSOLICITED RESULTS Routine 05/24/2025 11:20 AM EST POCT GLUCOSE METER UNSOLICITED RESULTS Routine 05/24/2025 7:34 AM EST CBC W/O DIFFERENTIAL Routine 05/24/2025 4:58 AM EST PHOSPHORUS, PLASMA Routine 05/24/2025 4: 58 AM EST MAGNESIUM, PLASMA Routine 05/24/2025 4:5 8 AM EST COMPREHENSIVE METABOLIC PANEL, PLASMA Routine 05/24/2025 4:58 AM EST POCT GLUCOSE METER UNSOLICITED RESULTS Routine 05/24/2025 4:55 AM EST POCT GLUCOSE METER UNSOLICITED RESULTS Routine 05/24/2025 4:52 AM EST XR CHEST 1 VIEW Routine 05/24/2025 1:28 AM EST POCT GLUCOSE METER UNSOLICITED RESULTS Routine 05/23/2025 11:57 PM EST POCT GLUCOSE METER UNSOLICITED RESULTS Routine 05/23/2025 4:27 PM EST POCT GLUCOSE METER UNSOLICITED RESULTS Routine 05/23/2025 12:07 PM EST POCT GLUCOSE METER UNSOLICITED RESULTS Routine 05/23/2025 4:38 AM EST CBC W/O DIFFERENTIAL Routine 05/23/2025 4:29 AM EST PHOSPHORUS, PLASMA Routine 05/23/2025 4: 29 AM EST MAGNESIUM, PLASMA Routine 05/23/2025 4:2 9 AM EST COMPREHENSIVE METABOLIC PANEL, PLASMA Routine 05/23/2025 4:29 AM EST XR CHEST 1 VIEW Routine 05/23/2025 1:23 AM EST POCT GLUCOSE METER UNSOLICITED RESULTS Routine 05/23/2025 12:01 AM EST POCT GLUCOSE METER UNSOLICITED RESULTS Routine 05/22/2025 8:04 PM EST POCT GLUCOSE METER UNSOLICITED RESULTS Routine 05/22/2025 4:19 PM EST POCT GLUCOSE METER UNSOLICITED RESULTS Routine 05/22/2025 11:[address] CHEST W IV CONTRAST STAT 10:46 AM EST POCT GLUCOSE METER UNSOLICITED RESULTS Routine 05/22/2025 8:15 AM EST POCT GLUCOSE METER UNSOLICITED RESULTS Routine 05/22/2025 6:22 AM EST CBC W/O DIFFERENTIAL Routine 05/22/2025 3:53 AM EST PHOSPHORUS, PLASMA Routine 05/22/2025 3: 53 AM EST MAGNESIUM, PLASMA Routine 05/22/2025 3:5 3 AM EST COMPREHENSIVE METABOLIC PANEL, PLASMA Routine 05/22/2025 3:53 AM EST XR CHEST 1 VIEW Routine 05/22/2025 1:37 AM EST POCT GLUCOSE METER UNSOLICITED RESULTS Routine 05/22/2025 12:59 AM EST POCT GLUCOSE METER UNSOLICITED RESULTS Routine 05/21/2025 8:07 PM EST POCT GLUCOSE METER UNSOLICITED RESULTS Routine 05/21/2025 5:28 PM EST XR CHEST 1 VIEW Routine 05/21/2025 2:[address] GUIDED CHEST TUBE LEFT Routine 05/21/2025 11:55 AM EST BODY FLUID CULTURE AND GRAM STAIN STAT 05/21/2025 11:30 AM EST POCT GLUCOSE METER UNSOLICITED RESULTS Routine 05/21/2025 5:16 AM EST CBC W/O DIFFERENTIAL Routine 05/21/2025 3:15 AM EST PHOSPHORUS, PLASMA Routine 05/21/2025 3: 15 AM EST MAGNESIUM, PLASMA Routine 05/21/2025 3:1 5 AM EST COMPREHENSIVE METABOLIC PANEL, PLASMA Routine 05/21/2025 3:15 AM EST POCT GLUCOSE METER UNSOLICITED RESULTS Routine 05/20/2025 11:33 PM EST POCT GLUCOSE METER UNSOLICITED RESULTS Routine 05/20/2025 8:[address] ABDOMEN PELVIS W IV CONTRAST STAT 05/20/2025 2:21 PM EST INSERT PICC LINE Routine 05/20/2025 9:05 AM EST CBC W/O DIFFERENTIAL Routine 05/20/2025 1:32 AM EST TRIGLYCERIDES, PLASMA Add-On 05/20/2025 1:32 AM EST PHOSPHORUS, PLASMA Routine 05/20/2025 1: 32 AM EST MAGNESIUM, PLASMA Routine 05/20/2025 1:3 2 AM EST COMPREHENSIVE METABOLIC PANEL, PLASMA Routine 05/20/2025 1:32 AM EST ECG ADULT STAT 05/19/2025 7:40 PM EST TROPONIN T, HIGH SENSITIVITY, 2 HOUR, PLASMA Timed 05/19/2025 10:59 AM EST TROPONIN T, HIGH SENSITIVITY, 0 HOUR, PLASMA, REFLEX TO 2 HOUR STAT 05/19/2025 8:12 AM EST ECG ADULT STAT 05/19/2025 7:59 AM EST CBC W/O DIFFERENTIAL Routine 05/19/2025 4:22 AM EST PHOSPHORUS, PLASMA Routine 05/19/2025 4: 22 AM EST MAGNESIUM, PLASMA Routine 05/19/2025 4:2 2 AM EST COMPREHENSIVE METABOLIC PANEL, PLASMA Routine 05/19/2025 4:22 AM EST CBC W/O DIFFERENTIAL Pending Discharge 05/18/2025 4:33 AM EST PHOSPHORUS, PLASMA Pending Discharge 05/18/2025 4:33 AM EST MAGNESIUM, PLASMA Pending Discharge 05/18/2025 4:33 AM EST COMPREHENSIVE METABOLIC PANEL, PLASMA Pending Discharge 05/18/2025 4:[address] ABDOMEN PELVIS W IV CONTRAST STAT 05/17/2025 10:15 AM EST CBC W/O DIFFERENTIAL Routine 05/17/2025 12:03 AM EST PHOSPHORUS, PLASMA Routine 05/17/2025 12:03 AM EST MAGNESIUM, PLASMA Routine 05/17/2025 12:03 AM EST COMPREHENSIVE METABOLIC PANEL, PLASMA Routine 05/17/2025 12:03 AM EST CBC W/O DIFFERENTIAL Routine 05/16/2025 12:20 AM EST PREALBUMIN, PLASMA Add-On 05/16/2025 12:20 AM EST PHOSPHORUS, PLASMA Routine 05/16/2025 12:20 AM EST MAGNESIUM, PLASMA Routine 05/16/2025 12:20 AM EST COMPREHENSIVE METABOLIC PANEL, PLASMA Routine 05/16/2025 12:20 AM EST CBC W/O DIFFERENTIAL Timed 05/15/2025 2:18 AM EST PHOSPHORUS, PLASMA Timed 05/15/2025 2: 18 AM EST MAGNESIUM, PLASMA Timed 05/15/2025 2:1 8 AM EST COMPREHENSIVE METABOLIC PANEL, PLASMA Timed 05/15/2025 2:18 AM EST POCT GLUCOSE METER UNSOLICITED RESULTS Routine 05/14/2025 7:[address] GUIDED DRAIN PLACEMENT PERITONEAL OR RETROPERITONEAL Routine 05/14/2025 5:06 PM EST AMYLASE, DRAIN FLUID Routine 05/14/2025 4:47 PM EST BODY FLUID CULTURE AND GRAM STAIN Routine 05/14/2025 4:47 PM EST URINALYSIS MICROSCOPIC FOR UA REFLEX STAT 05/14/2025 7:38 AM EST URINALYSIS WITH REFLEX MICROSCOPIC STAT 05/14/2025 7:38 AM EST BLOOD CULTURE (AEROBIC/ANAEROBIC SET) Routine 05/14/2025 2:32 AM EST BLOOD CULTURE (AEROBIC/ANAEROBIC SET) Routine 05/14/2025 2:[address] ABDOMEN PELVIS W IV CONTRAST STAT 05/13/2025 8:22 PM EST ED HIV 1/2 ANTIBODY/ANTIGEN SCREEN WITH REFLEX TO HIV I/II DIFFERENTIATION STAT 05/13/2025 6:44 PM EST ED PROTOCOL HIV 1/2 ANTIBODY/ANTIGEN SCREEN W/REFLEX TO HIV 1/2 ANTIBODY DIFFERENTIATION STAT 05/13/2025 6:44 PM EST HEPATITIS C ANTIBODY - ED W/REFLEX TO HCV QUANT PCR STAT 05/13/2025 6:44 PM EST CBC WITH AUTO DIFFERENTIAL STAT 05/13/2025 6:44 PM EST LIPASE, PLASMA STAT 05/13/2025 6:44 PM EST COMPREHENSIVE METABOLIC PANEL, PLASMA STAT 05/13/2025 6:44 PM EST documented in this encounter Results * (ABNORMAL) POCT glucose meter (06/02/2025 11:32 AM EST) POCT Glucose 157(H) 74 - 99 mg/dL 06/02/2025 11:34 AM EST [facility] Comment:Accuracy of a glucos e result obtained from a capillary whole blood specimen relies upon adequate, non-compromised capillary blood flow. If the capillary glucose result is not consistent with the patient's clinical signs and symptoms, glucose testing should be repeated with either an arterial or venous sample on the glucometer or sent to the main labortory for testing. Comment 06/02/2025 11:34 AM EST [facility] Liv[employer] Agent ID Kirstin Rivera 06/02/2025 11:34 AM EST [facility] Device ID [id number] 06/02/2025 11:34 AM EST [facility] Specimen Type POC Capillary 06/02/2025 11:34 AM EST [facility] Blood Capillary blood specimen / Unknown 06/02/2025 11:32 AM EST 06/02/2025 11:34 AM EST us Lokesh Anderson MD LAB POINT OF CARE TE ST DOCKED DEVICE UNSOLICITED RESULTS Final Result Performing Organization Address City/State/[facility] Co de Phone Number [facility] [address] [place] [address] * (ABNORMAL) POCT glucose meter (06/02/2025 5:37 AM EST) [facility] POCT Glucose 154(H) 74 - 99 mg/dL 06/02/2025 5:39 AM EST [facility] Comment:Accuracy of a glucos e result obtained from a capillary whole blood specimen relies upon adequate, non-compromised capillary blood flow. If the capillary glucose result is not consistent with the patient's clinical signs and symptoms, glucose testing should be repeated with either an arterial or venous sample on the glucometer or sent to the main labortory for testing. Comment 06/02/2025 5:39 AM EST [facility] Liv[employer] Agent ID Gabriela Aguilar 06/02/2025 5:39 AM EST [facility] Device ID [id number] 06/02/2025 5:39 AM EST [facility] Specimen Type POC Capillary 06/02/2025 5:39 AM EST [facility] Blood Capillary blood specimen / Unknown 06/02/2025 5:37 AM EST 06/02/2025 5:39 AM EST us Lokesh Anderson MD LAB POINT OF CARE TE ST DOCKED DEVICE UNSOLICITED RESULTS Final Result [facility] [address] [place] [address] * (ABNORMAL) Comprehensive Metabolic Panel, Plasma (06/02/2025 3:29 AM EST) Glucose, Plasma 94 74 - 99 mg/dL 06/02/2025 4:07 AM EST [facility] BUN, Plasma 14 8 - 23 mg/dL 06/02/2025 4:07 AM [facility] Creatinine, Plasma 0.51(L) 0.60 - 1.10 mg/dL 06/02/2025 4:07 AM [facility] BUN/Creatinine Ratio 27 06/02/2025 4:07 AM [facility] Sodium, Plasma 136 136 - 145 mmol/L 06/02/2025 4:07 AM [facility] Potassium, Plasma 4.3 3.6 - 4.9 mmol/L 06/02/2025 4:07 AM [facility] Chloride, Plasma 104 97 - 107 mmol/L 06/02/2025 4:07 AM [facility] CO2, Plasma 23 22 - 29 mmol/L 06/02/2025 4:07 AM [facility] Anion Gap 9 6 - 16 mmol/L 06/02/2025 4:07 AM [facility] Total Calcium, Plasma 8.4(L) 8.9 - 10.2 mg/dL 06/02/2025 4:07 AM [facility] Total Protein 6.4 6.3 - 7.9 g/dL 06/02/2025 4:07 AM [facility] Albumin, Plasma 2.1(L) 3.5 - 5.2 g/dL 06/02/2025 4:07 AM [facility] AST, Plasma 19 10 - 35 U/L 06/02/2025 4:07 AM [facility] ALT, Plasma 16 10 - 35 U/L 06/02/2025 4:07 AM [facility] Alkaline Phosphatase, Plasma 91 46 - 142 U/L 06/02/2025 4:07 AM [facility] Total Bilirubin, Plasma <0.2(L) 0.2 - 1.1 mg/dL 06/02/2025 4:07 AM EST [facility] eGFRcr 99.9 mL/min/1.7 3m*2 06/02/2025 4:07 AM EST [facility] Comment:Reported eGFRcr in m L/min/1.73m2 is based the CKD-EPI 2020 equation that does not use a race coefficient. Blood Venous blood specimen / Unknown Venipuncture / Unknown 06/02/2025 3:29 AM EST 06/02/2025 3:37 AM EST us Lokesh Anderson MD LAB BLOOD ORDERABLES Final Resul t Performing Organization Address City/[facility] Co de Phone Number [facility] [address] [place] [address] * Phosphorus, Plasma (06/02/2025 3:29 AM EST) Phosphorus, Plasma 4.3 2.5 - 4.5 mg/dL 06/02/2025 4:07 AM EST [facility] Blood Venous blood specimen / Unknown Venipuncture / Unknown 06/02/2025 3:29 AM EST 06/02/2025 3:37 AM EST us Lokesh Anderson MD LAB BLOOD ORDERABLES Final Resul t Performing Organization Address City/[facility]/ZIP Co de Phone Number [facility] [address] [place] [address] * Magnesium, Plasma (06/02/2025 3:29 AM EST) Magnesium, Plasma 1.9 1.9 - 2.4 mg/dL 06/02/2025 4:07 AM EST [facility] Blood Venous blood specimen / Unknown Venipuncture / Unknown 06/02/2025 3:29 AM EST 06/02/2025 3:37 AM EST us Lokesh Anderson MD LAB BLOOD ORDERABLES Final Resul t Performing Organization Address City/[facility]/ZIP Co de Phone Number [facility] [address] [place] [phone] * (ABNORMAL) CBC W/O Differential (06/02/2025 3:29 AM EST) WBC Count 8.73 3.70 - 10.30 10*3/uL LAB HEMATOLOGY METHOD 06/02/2025 3:52 AM EST [facility] RBC Count 3.17(L) 3.90 - 5.20 10*6/uL LAB HEMATOLOGY METHOD 06/02/2025 3:52 AM EST [facility] HGB 9.3(L) 11.2 - 15.7 g/dL LAB HEMATOLOGY METHOD 06/02/2025 3:52 AM EST [facility] HCT 28.8(L) 34.0 - 45.0 % LAB HEMATOLOGY METHOD 06/02/2025 3:52 AM EST [facility] Platelet Count 576(H) 155 - 369 10*3/uL LAB HEMATOLOGY METHOD 06/02/2025 3:52 AM EST [facility] MCV 91 79 - 98 fL LAB HEMATOLOGY METHOD 06/02/2025 3:52 AM EST [facility] MCH 29.3 26.0 - 32.0 pg LAB HEMATOLOGY METHOD 06/02/2025 3:52 AM EST [facility] MCHC 32.3 30.7 - 35.5 g/dL LAB HEMATOLOGY METHOD 06/02/2025 3:52 AM EST [facility] RDW 16.6(H) 11.5 - 14.5 % LAB HEMATOLOGY METHOD 06/02/2025 3:52 AM EST [facility] MPV 9.1 8.8 - 12.5 fL LAB HEMATOLOGY METHOD 06/02/2025 3:52 AM EST [facility] nRBC 0.0 <=0.0 per 100 WBCs LAB HEMATOLOGY METHOD 06/02/2025 3:52 AM EST [facility] Blood Venous blood specimen / Unknown Venipuncture / Unknown 06/02/2025 3:29 AM EST 06/02/2025 3:37 AM EST us Lokesh Anderson MD LAB BLOOD ORDERABLES Final Resul t [facility] [address] [place] [address] * (ABNORMAL) POCT glucose meter (06/02/2025 12:01 AM EST) POCT Glucose 150(H) 74 - 99 mg/dL 06/02/2025 12:01 AM EST [facility] Comment:Accuracy of a glucos e result obtained from a capillary whole blood specimen relies upon adequate, non-compromised capillary blood flow. If the capillary glucose result is not consistent with the patient's clinical signs and symptoms, glucose testing should be repeated with either an arterial or venous sample on the glucometer or sent to the main labortory for testing. Comment 06/02/2025 12:01 AM EST [facility] Liv[employer] Agent ID Gabriela Aguilar 06/02/2025 12:01 AM EST [facility] Device ID [id number] 06/02/2025 12:01 AM EST [facility] Specimen Type POC Capillary 06/02/2025 12:01 AM EST [facility] Blood Capillary blood specimen / Unknown 06/02/2025 12:01 AM EST 06/02/2025 12:01 AM EST Lokesh Anderson MD LAB POINT OF CARE TE ST DOCKED DEVICE UNSOLICITED RESULTS Final Result [facility] [address] [place] [address] * (ABNORMAL) POCT glucose meter (06/01/2025 10:07 PM EST) Pathologist [facility] POCT Glucose 174(H) 74 - 99 mg/dL 06/01/2025 10:08 PM EST [facility] Comment:Accuracy of a glucos e result obtained from a capillary whole blood specimen relies upon adequate, non-compromised capillary blood flow. If the capillary glucose result is not consistent with the patient's clinical signs and symptoms, glucose testing should be repeated with either an arterial or venous sample on the glucometer or sent to the main labortory for testing. Comment 06/01/2025 10:08 PM EST [facility] Liv[employer] Agent ID Gabriela Aguilar 06/01/2025 10:08 PM EST [facility] Device ID [id number] 06/01/2025 10:08 PM EST [facility] Specimen Type POC Capillary 06/01/2025 10:08 PM EST [facility] Blood Capillary blood specimen / Unknown 06/01/2025 10:07 PM EST 06/01/2025 10:08 PM EST us Lokesh Anderson MD LAB POINT OF CARE TE ST DOCKED DEVICE UNSOLICITED RESULTS Final Result Performing Organization Address [facility] Co de Phone Number [facility] [address] [place] [address] * (ABNORMAL) POCT glucose meter (06/01/2025 5:26 PM EST) [facility] POCT Glucose 107(H) 74 - 99 mg/dL 06/01/2025 5:27 PM EST [facility] Comment:Accuracy of a glucos e result obtained from a capillary whole blood specimen relies upon adequate, non-compromised capillary blood flow. If the capillary glucose result is not consistent with the patient's clinical signs and symptoms, glucose testing should be repeated with either an arterial or venous sample on the glucometer or sent to the main labortory for testing. Comment 06/01/2025 5:27 PM EST [facility] Liv[employer] Agent ID Brielle Coronel 5:27 PM EST [facility] Device ID [id number] 06/01/2025 5:27 PM EST [facility] Specimen Type POC Capillary 06/01/2025 5:27 PM EST [facility] Blood Capillary blood specimen / Unknown 06/01/2025 5:26 PM EST 06/01/2025 5:27 PM EST us Lokesh Anderson MD LAB POINT OF CARE TE ST DOCKED DEVICE UNSOLICITED RESULTS Final Result Performing Organization Address City/[facility]/ZIP Co de Phone Number [facility] [address] [place] [address] * XR Chest 1 View (06/01/2025 2:51 PM EST) Anatomical Region Laterality Modality Chest Digital Radiogra phy Impressions 06/01/2025 3:05 PM EST Interval removal of the left basal chest tube. No sizable pneumothorax. Stable left pleural effusion and left basal lung opacities. CRITICAL RESULT: No. COMMUNICATION: Per this written report. Drafted by Poncho Velez MD on 06/01/2025 3:04 PM Final report signed by Poncho Velez MD on 06/01/2025 3:05 PM Narrative 06/01/2025 3:05 PM EST CLINICAL INDICATION: Ct removal TECHNIQUE: Single AP view of chest. COMPARISON: 7 hours prior FINDINGS: Right PICC in place. Interval removal of the left basal chest tube. No sizable pneumothorax. Stable left pleural effusion and left basal lung opacities. No new lung consolidation. Procedure Note Poncho Velez MD - 06/01/2025 CLINICAL INDICATION: Ct removal TECHNIQUE: Single AP view of chest. COMPARISON: 7 hours prior FINDINGS: Right PICC in place. Interval removal of the left basal chest tube. Nosizable pneumothorax. Stable left pleural effusion and left basal lungopacities. No new lung consolidation. IMPRESSION: Interval removal of the left basal chest tube. No sizable pneumothorax.Stable left pleural effusion and left basal lung opacities. CRITICAL RESULT: No. COMMUNICATION: Per this written report. Drafted by Poncho Velez MD on 06/01/2025 3:04 PM Final report signed by Poncho Velez MD on 06/01/2025 3:05 PM Lokesh Anderosn MD IMG XR PROCEDURES Final Result * (ABNORMAL) POCT glucose meter (06/01/2025 11:48 AM EST) POCT Glucose 147(H) 74 - 99 mg/dL 06/01/2025 11:49 AM EST [facility] Comment:Accuracy of a glucos e result obtained from a capillary whole blood specimen relies upon adequate, non-compromised capillary blood flow. If the capillary glucose result is not consistent with the patient's clinical signs and symptoms, glucose testing should be repeated with either an arterial or venous sample on the glucometer or sent to the main labortory for testing. Comment 06/01/2025 11:49 AM EST [facility] [employer] Agent ID Brielle Coronel 11:49 AM EST [facility] Device ID [id number] 06/01/2025 11:49 AM EST [facility] Specimen Type POC Capillary 06/01/2025 11:49 AM EST [facility] Blood Capillary blood specimen / Unknown 06/01/2025 11:48 AM EST 06/01/2025 11:49 AM EST us Lokesh Anderson MD LAB POINT OF CARE TE ST DOCKED DEVICE UNSOLICITED RESULTS Final Result [facility] [address] [place] [address] * XR Chest 1 View (06/01/2025 7:01 AM EST) Anatomical Region Laterality Modality Chest Digital Radiogra phy Impressions 06/01/2025 10:45 AM EST Stable exam CRITICAL RESULT: No. COMMUNICATION: Per this written report. Drafted by Poncho Velez MD on 06/01/2025 10:45 AM Final report signed by Poncho Velez MD on 06/01/2025 10:45 AM Narrative 06/01/2025 10:45 AM EST CLINICAL INDICATION: chest tube TECHNIQUE: Single AP view of chest. COMPARISON: One day prior FINDINGS: Right PICC in place. The cardiac mediastinal contours unchanged. Small left pleural effusion, unchanged. Left basal chest tube in place. No sizable pneumothorax. Similar right basal lung opacities. No new lung consolidation. Procedure Note Poncho Velez MD - 06/01/2025 CLINICAL INDICATION: chest tube TECHNIQUE: Single AP view of chest. COMPARISON: One day prior FINDINGS: Right PICC in place. The cardiac mediastinal contours unchanged. Smallleft pleural effusion, unchanged. Left basal chest tube in place. Nosizable pneumothorax. Similar right basal lung opacities. No new lungconsolidation. IMPRESSION: Stable exam CRITICAL RESULT: No. COMMUNICATION: Per this written report. Drafted by Poncho Velez MD on 06/01/2025 10:45 AM Final report signed by Poncho Velez MD on 06/01/2025 10:45 AM us Lokesh Anderson MD IMG XR PROCEDURES Final Result * (ABNORMAL) POCT glucose meter (06/01/2025 6:02 AM EST) POCT Glucose 170(H) 74 - 99 mg/dL 06/01/2025 6:05 AM EST [facility] Comment:Accuracy of a glucos e result obtained from a capillary whole blood specimen relies upon adequate, non-compromised capillary blood flow. If the capillary glucose result is not consistent with the patient's clinical signs and symptoms, glucose testing should be repeated with either an arterial or venous sample on the glucometer or sent to the main labortory for testing. Comment 06/01/2025 6:05 AM EST [facility] Liv[employer] Agent ID Princess Ge 025 6:05 AM EST [facility] Device ID [id number] 06/01/2025 6:05 AM EST [facility] Specimen Type POC Capillary 06/01/2025 6:05 AM EST [facility] Blood Capillary blood specimen / Unknown 06/01/2025 6:02 AM EST 06/01/2025 6:05 AM EST Lokesh Anderson MD LAB POINT OF CARE TE ST DOCKED DEVICE UNSOLICITED RESULTS Final Result [facility] [address] [place] [address] * (ABNORMAL) Comprehensive Metabolic Panel, Plasma (06/01/2025 4:10 AM EST) Glucose, Plasma 143(H) 74 - 99 mg/dL 06/01/2025 5:53 AM EST [facility] BUN, Plasma 12 8 - 23 mg/dL 06/01/2025 5:53 AM EST [facility] Creatinine, Plasma 0.49(L) 0.60 - 1.10 mg/dL 06/01/2025 5:53 AM EST [facility] BUN/Creatinine Ratio 24 06/01/2025 5:53 AM EST [facility] Sodium, Plasma 137 136 - 145 mmol/L 06/01/2025 5:53 AM EST [facility] Potassium, Plasma 4.2 3.6 - 4.9 mmol/L 06/01/2025 5:53 AM EST [facility] Chloride, Plasma 103 97 - 107 mmol/L 06/01/2025 5:53 AM EST [facility] CO2, Plasma 23 22 - 29 mmol/L 06/01/2025 5:53 AM EST [facility] Anion Gap 11 6 - 16 mmol/L 06/01/2025 5:53 AM EST [facility] Total Calcium, Plasma 8.2(L) 8.9 - 10.2 mg/dL 06/01/2025 5:53 AM EST [facility] Total Protein 6.3 6.3 - 7.9 g/dL 06/01/2025 5:53 AM EST [facility] Albumin, Plasma 2.4(L) 3.5 - 5.2 g/dL 06/01/2025 5:53 AM EST [facility] AST, Plasma 20 10 - 35 U/L 06/01/2025 5:53 AM EST [facility] ALT, Plasma 13 10 - 35 U/L 06/01/2025 5:53 AM EST [facility] Alkaline Phosphatase, Plasma 89 46 - 142 U/L 06/01/2025 5:53 AM EST [facility] Total Bilirubin, Plasma <0.2(L) 0.2 - 1.1 mg/dL 06/01/2025 5:53 AM EST [facility] eGFRcr 100.9 mL/min/1.7 3m*2 06/01/2025 5:53 AM EST [facility] Comment:Reported eGFRcr in m L/min/1.73m2 is based the CKD-EPI 2020 equation that does not use a race coefficient. Blood Venous blood specimen / Unknown Venipuncture / Unknown 06/01/2025 4:10 AM EST 06/01/2025 5:23 AM EST us Lokesh Anderson MD LAB BLOOD ORDERABLES Final Resul t [facility] [address] [place] [address] * Phosphorus, Plasma (06/01/2025 4:10 AM EST) Phosphorus, Plasma 3.8 2.5 - 4.5 mg/dL 06/01/2025 5:53 AM EST [facility] Blood Venous blood specimen / Unknown Venipuncture / Unknown 06/01/2025 4:10 AM EST 06/01/2025 5:23 AM EST us Lokesh Anderson MD LAB BLOOD ORDERABLES Final Resul t [facility] [address] [place] [address] * Magnesium, Plasma (06/01/2025 4:10 AM EST) Magnesium, Plasma 2.0 1.9 - 2.4 mg/dL 06/01/2025 5:53 AM EST [facility] Blood Venous blood specimen / Unknown Venipuncture / Unknown 06/01/2025 4:10 AM EST 06/01/2025 5:23 AM EST us Lokesh Anderson MD LAB BLOOD ORDERABLES Final Resul t Performing Organization Address City/[facility]/ZIP Co de Phone Number [facility] [address] [place] [address] * (ABNORMAL) CBC W/O Differential (06/01/2025 4:10 AM EST) WBC Count 7.85 3.70 - 10.30 10*3/uL LAB HEMATOLOGY METHOD 06/01/2025 5:32 AM EST [facility] RBC Count 3.09(L) 3.90 - 5.20 10*6/uL LAB HEMATOLOGY METHOD 06/01/2025 5:32 AM EST [facility] HGB 9.3(L) 11.2 - 15.7 g/dL LAB HEMATOLOGY METHOD 06/01/2025 5:32 AM EST [facility] HCT 27.8(L) 34.0 - 45.0 % LAB HEMATOLOGY METHOD 06/01/2025 5:32 AM EST [facility] Platelet Count 567(H) 155 - 369 10*3/uL LAB HEMATOLOGY METHOD 06/01/2025 5:32 AM EST [facility] MCV 90 79 - 98 fL LAB HEMATOLOGY METHOD 06/01/2025 5:32 AM EST [facility] MCH 30.1 26.0 - 32.0 pg LAB HEMATOLOGY METHOD 06/01/2025 5:32 AM EST [facility] MCHC 33.5 30.7 - 35.5 g/dL LAB HEMATOLOGY METHOD 06/01/2025 5:32 AM EST [facility] RDW 16.5(H) 11.5 - 14.5 % LAB HEMATOLOGY METHOD 06/01/2025 5:32 AM EST [facility] MPV 9.6 8.8 - 12.5 fL LAB HEMATOLOGY METHOD 06/01/2025 5:32 AM EST [facility] nRBC 0.0 <=0.0 per 100 WBCs LAB HEMATOLOGY METHOD 06/01/2025 5:32 AM EST [facility] [facility] Blood Venous blood specimen / Unknown Venipuncture / Unknown 06/01/2025 4:10 AM EST 06/01/2025 5:23 AM EST us Lokesh Anderson MD LAB BLOOD ORDERABLES Final Resul t [facility] [address] [place] [address] * (ABNORMAL) POCT glucose meter (05/31/2025 11:31 PM EST) POCT Glucose 148(H) 74 - 99 mg/dL 05/31/2025 11:34 PM EST [facility] Comment:Accuracy of a glucos e result obtained from a capillary whole blood specimen relies upon adequate, non-compromised capillary blood flow. If the capillary glucose result is not consistent with the patient's clinical signs and symptoms, glucose testing should be repeated with either an arterial or venous sample on the glucometer or sent to the main labortory for testing. Comment 05/31/2025 11:34 PM EST [facility] [employer] Agent ID Princess Ge 025 11:34 PM EST [facility] Device ID [id number] 05/31/2025 11:34 PM EST [facility] Specimen Type POC Capillary 05/31/2025 11:34 PM EST [facility] Blood Capillary blood specimen / Unknown 05/31/2025 11:31 PM EST 05/31/2025 11:34 PM EST us Lokesh Anderson MD LAB POINT OF CARE TE ST DOCKED DEVICE UNSOLICITED RESULTS Final Result Performing Organization Address City/[facility] Co de Phone Number [facility] [address] [place] [address] * (ABNORMAL) POCT glucose meter (05/31/2025 6:04 PM EST) POCT Glucose 185(H) 74 - 99 mg/dL 05/31/2025 6:05 PM EST [facility] Comment:Accuracy of a glucos e result obtained from a capillary whole blood specimen relies upon adequate, non-compromised capillary blood flow. If the capillary glucose result is not consistent with the patient's clinical signs and symptoms, glucose testing should be repeated with either an arterial or venous sample on the glucometer or sent to the main labortory for testing. Comment 05/31/2025 6:05 PM EST [facility] [employer] Agent ID Brielle Coronel 6:05 PM EST [facility] Device ID [id number] 05/31/2025 6:05 PM EST [facility] Specimen Type POC Capillary 05/31/2025 6:05 PM EST [facility] Blood Capillary blood specimen / Unknown 05/31/2025 6:04 PM EST 05/31/2025 6:05 PM EST Lokesh Anderson MD LAB POINT OF CARE TE ST DOCKED DEVICE UNSOLICITED RESULTS Final Result Performing Organization Address [facility] de Phone Number [facility] [address] [place] [address] * XR Chest 1 View (05/31/2025 2:10 PM EST) Anatomical Region Laterality Modality Chest Digital Radiogra phy Impressions 05/31/2025 3:39 PM EST Interval removal of the left chest tube. No sizable pneumothorax identified on current exam. Similar small left pleural effusion and left basal lung opacities. CRITICAL RESULT: No. COMMUNICATION: Per this written report. Drafted by Poncho Velez MD on 05/31/2025 3:37 PM Final report signed by Poncho Velez MD on 05/31/2025 3:39 PM Narrative 05/31/2025 3:39 PM EST CLINICAL INDICATION: Chest tube removal TECHNIQUE: Single AP view of chest. COMPARISON: One day prior FINDINGS: Interval removal of the left apical chest tube. Right PICC in place. No sizable pneumothorax identified. Left pleural effusion similar to prior. Similar left retrocardiac/basal lung opacity. No new lung consolidation. Procedure Note Poncho Velez MD - 05/31/2025 CLINICAL INDICATION: Chest tube removal TECHNIQUE: Single AP view of chest. COMPARISON: One day prior FINDINGS: Interval removal of the left apical chest tube. Right PICC in place. Nosizable pneumothorax identified. Left pleural effusion similar to prior.Similar left retrocardiac/basal lung opacity. No new lung consolidation. IMPRESSION: Interval removal of the left chest tube. No sizable pneumothoraxidentified on current exam. Similar small left pleural effusion and left basal lung opacities. CRITICAL RESULT: No. COMMUNICATION: Per this written report. Drafted by Poncho Velez MD on 05/31/2025 3:37 PM Final report signed by Poncho Velez MD on 05/31/2025 3:39 PM Lokesh Anderson MD IMG XR PROCEDURES Final Result * (ABNORMAL) POCT glucose meter (05/31/2025 11:30 AM EST) POCT Glucose 214(H) 74 - 99 mg/dL 05/31/2025 11:31 AM EST [facility] Comment:Accuracy of a glucos e result obtained from a capillary whole blood specimen relies upon adequate, non-compromised capillary blood flow. If the capillary glucose result is not consistent with the patient's clinical signs and symptoms, glucose testing should be repeated with either an arterial or venous sample on the glucometer or sent to the main labortory for testing. Comment 05/31/2025 11:31 AM EST [facility] [employer] Agent ID Brielle Coronel 11:31 AM EST [facility] Device ID [id number] 05/31/2025 11:31 AM EST [facility] Specimen Type POC Capillary 05/31/2025 11:31 AM EST [facility] Blood Capillary blood specimen / Unknown 05/31/2025 11:30 AM EST 05/31/2025 11:31 AM EST Lokesh Anderson MD LAB POINT OF CARE TE ST DOCKED DEVICE UNSOLICITED RESULTS Final Result Performing Organization Address [facility] Co de Phone Number [facility] [address] [place] [address] * POCT glucose meter (05/31/2025 5:37 AM EST) POCT Glucose 95 74 - 99 mg/dL 05/31/2025 5:38 AM EST [facility] Comment:Accuracy of a glucos e result obtained from a capillary whole blood specimen relies upon adequate, non-compromised capillary blood flow. If the capillary glucose result is not consistent with the patient's clinical signs and symptoms, glucose testing should be repeated with either an arterial or venous sample on the glucometer or sent to the main labortory for testing. Comment 05/31/2025 5:38 AM EST [facility] [employer] Agent ID Tabitha Lee 025 5:38 AM EST [facility] Device ID [id number] 05/31/2025 5:38 AM EST [facility] Specimen Type POC Capillary 05/31/2025 5:38 AM EST [facility] Blood Capillary blood specimen / Unknown 05/31/2025 5:37 AM EST 05/31/2025 5:38 AM EST Lokesh Anderson MD LAB POINT OF CARE TE ST DOCKED DEVICE UNSOLICITED RESULTS Final Result Performing Organization Address [facility] de Phone Number [facility] [address] [place] [address] * XR Chest 1 View (05/31/2025 5:19 AM EST) Anatomical Region Laterality Modality Chest Digital Radiogra phy Impressions 05/31/2025 11:21 AM EST No significant interval change CRITICAL RESULT: No. COMMUNICATION: Per this written report. Drafted by Poncho Velez MD on 05/31/2025 11:20 AM Final report signed by Poncho Velez MD on 05/31/2025 11:21 AM Narrative 05/31/2025 11:21 AM EST CLINICAL INDICATION: eval lung montez TECHNIQUE: Single AP view of chest. COMPARISON: One day prior FINDINGS: Left apical chest tube in place. Trace left apical pneumothorax. Small left pleural effusion similar to prior. Left basal lung opacities which may represent atelectasis. No new lung consolidation. The cardiac mediastinal contours unchanged. Procedure Note Poncho Velez MD - 05/31/2025 CLINICAL INDICATION: eval lung montez TECHNIQUE: Single AP view of chest. COMPARISON: One day prior FINDINGS: Left apical chest tube in place. Trace left apical pneumothorax. Smallleft pleural effusion similar to prior. Left basal lung opacities whichmay represent atelectasis. No new lung consolidation. The cardiacmediastinal contours unchanged. IMPRESSION: No significant interval change CRITICAL RESULT: No. COMMUNICATION: Per this written report. Drafted by Poncho Velez MD on 05/31/2025 11:20 AM Final report signed by Poncho Velez MD on 05/31/2025 11:21 AM us Rosa Chapman PETROGRAPHER IMG XR PROCEDURES Final Resul t * (ABNORMAL) Comprehensive Metabolic Panel, Plasma (05/31/2025 4:57 AM EST) Glucose, Plasma 99 74 - 99 mg/dL 05/31/2025 6:27 AM [facility] BUN, Plasma 11 8 - 23 mg/dL 05/31/2025 6:27 AM [facility] Creatinine, Plasma 0.44(L) 0.60 - 1.10 mg/dL 05/31/2025 6:27 AM [facility] BUN/Creatinine Ratio 25 05/31/2025 6:27 AM [facility] Sodium, Plasma 137 136 - 145 mmol/L 05/31/2025 6:27 AM [facility] Potassium, Plasma 4.1 3.6 - 4.9 mmol/L 05/31/2025 6:27 AM [facility] Chloride, Plasma 104 97 - 107 mmol/L 05/31/2025 6:27 AM [facility] CO2, Plasma 24 22 - 29 mmol/L 05/31/2025 6:27 AM [facility] Anion Gap 9 6 - 16 mmol/L 05/31/2025 6:27 AM [facility] Total Calcium, Plasma 8.2(L) 8.9 - 10.2 mg/dL 05/31/2025 6:27 AM EST [facility] Total Protein 6.6 6.3 - 7.9 g/dL 05/31/2025 6:27 AM EST [facility] Albumin, Plasma 2.2(L) 3.5 - 5.2 g/dL 05/31/2025 6:27 AM EST [facility] AST, Plasma 19 10 - 35 U/L 05/31/2025 6:27 AM EST [facility] ALT, Plasma 12 10 - 35 U/L 05/31/2025 6:27 AM EST [facility] Alkaline Phosphatase, Plasma 91 46 - 142 U/L 05/31/2025 6:27 AM EST [facility] Total Bilirubin, Plasma 0.2 0.2 - 1.1 mg/dL 05/31/2025 6:27 AM EST [facility] eGFRcr 103.6 mL/min/1.7 3m*2 05/31/2025 6:27 AM EST [facility] Comment:Reported eGFRcr in m L/min/1.73m2 is based the CKD-EPI 2020 equation that does not use a race coefficient. Blood Blood sample taken from central line / Unknown (Central Line) Existing Catheter / Unknown 05/31/2025 4:57 AM EST 05/31/2025 5:56 AM EST us Lokesh Anderson MD LAB BLOOD ORDERABLES Final Resul t [facility] [address] [place] [address] * Phosphorus, Plasma (05/31/2025 4:57 AM EST) Phosphorus, Plasma 3.4 2.5 - 4.5 mg/dL 05/31/2025 6:27 AM EST [facility] Blood Blood sample taken from central line / Unknown (Central Line) Existing Catheter / Unknown 05/31/2025 4:57 AM EST 05/31/2025 5:56 AM EST us Lokesh Anderson MD LAB BLOOD ORDERABLES Final Resul t [facility] [address] [place] [address] * Magnesium, Plasma (05/31/2025 4:57 AM EST) Pathologist [facility] Magnesium, Plasma 1.9 1.9 - 2.4 mg/dL 05/31/2025 6:27 AM EST [facility] Blood Blood sample taken from central line / Unknown (Central Line) Existing Catheter / Unknown 05/31/2025 4:57 AM EST 05/31/2025 5:56 AM EST us Lokesh Anderson MD LAB BLOOD ORDERABLES Final Resul t Performing Organization Address [facility]/ZIP Co de Phone Number [facility] [address] [place] [address] * (ABNORMAL) CBC W/O Differential (05/31/2025 4:57 AM EST) Pathologist [facility] WBC Count 8.86 3.70 - 10.30 10*3/uL LAB HEMATOLOGY METHOD 05/31/2025 6:06 AM EST [facility] RBC Count 3.35(L) 3.90 - 5.20 10*6/uL LAB HEMATOLOGY METHOD 05/31/2025 6:06 AM EST [facility] HGB 9.6(L) 11.2 - 15.7 g/dL LAB HEMATOLOGY METHOD 05/31/2025 6:06 AM EST [facility] HCT 29.6(L) 34.0 - 45.0 % LAB HEMATOLOGY METHOD 05/31/2025 6:06 AM EST [facility] Platelet Count 520(H) 155 - 369 10*3/uL LAB HEMATOLOGY METHOD 05/31/2025 6:06 AM EST [facility] MCV 88 79 - 98 fL LAB HEMATOLOGY METHOD 05/31/2025 6:06 AM EST [facility] MCH 28.7 26.0 - 32.0 pg LAB HEMATOLOGY METHOD 05/31/2025 6:06 AM EST [facility] MCHC 32.4 30.7 - 35.5 g/dL LAB HEMATOLOGY METHOD 05/31/2025 6:06 AM EST [facility] RDW 16.4(H) 11.5 - 14.5 % LAB HEMATOLOGY METHOD 05/31/2025 6:06 AM EST [facility] MPV 9.7 8.8 - 12.5 fL LAB HEMATOLOGY METHOD 05/31/2025 6:06 AM EST [facility] nRBC 0.0 <=0.0 per 100 WBCs LAB HEMATOLOGY METHOD 05/31/2025 6:06 AM EST [facility] Blood Blood sample taken from central line / Unknown (Central Line) Existing Catheter / Unknown 05/31/2025 4:57 AM EST 05/31/2025 5:56 AM EST us Lokesh Anderson MD LAB BLOOD ORDERABLES Final Resul t Performing Organization Address City/[facility]/ZIP Co de Phone Number [facility] [address] [place] [address] * (ABNORMAL) POCT glucose meter (05/31/2025 12:20 AM EST) POCT Glucose 213(H) 74 - 99 mg/dL 05/31/2025 12:22 AM EST [facility] Comment:Accuracy of a glucos e result obtained from a capillary whole blood specimen relies upon adequate, non-compromised capillary blood flow. If the capillary glucose result is not consistent with the patient's clinical signs and symptoms, glucose testing should be repeated with either an arterial or venous sample on the glucometer or sent to the main labortory for testing. Comment 05/31/2025 12:22 AM EST [facility] [employer] Agent ID Tabitha Lee 025 12:22 AM EST [facility] Device ID [id number] 05/31/2025 12:22 AM EST [facility] Specimen Type POC Capillary 05/31/2025 12:22 AM EST [facility] Blood Capillary blood specimen / Unknown 05/31/2025 12:20 AM EST 05/31/2025 12:22 AM EST us Lokesh Anderson MD LAB POINT OF CARE TE ST DOCKED DEVICE UNSOLICITED RESULTS Final Result [facility] [address] [place] [address] * (ABNORMAL) POCT glucose meter (05/30/2025 9:25 PM EST) POCT Glucose 161(H) 74 - 99 mg/dL 05/30/2025 9:27 PM EST [facility] Comment:Accuracy of a glucos e result obtained from a capillary whole blood specimen relies upon adequate, non-compromised capillary blood flow. If the capillary glucose result is not consistent with the patient's clinical signs and symptoms, glucose testing should be repeated with either an arterial or venous sample on the glucometer or sent to the main labortory for testing. Comment 05/30/2025 9:27 PM EST [facility] [employer] Agent ID Katlyn Amin 05/30/2025 9:27 PM EST [facility] Device ID [id number] 05/30/2025 9:27 PM EST [facility] Specimen Type POC Capillary 05/30/2025 9:27 PM EST [facility] Blood Capillary blood specimen / Unknown 05/30/2025 9:25 PM EST 05/30/2025 9:27 PM EST Lokesh Anderson MD LAB POINT OF CARE TE ST DOCKED DEVICE UNSOLICITED RESULTS Final Result Performing Organization Address City/State/[facility] de Phone Number [facility] [address] [place] [address] * (ABNORMAL) POCT glucose meter (05/30/2025 4:57 PM EST) Pathologist [facility] POCT Glucose 118(H) 74 - 99 mg/dL 05/30/2025 4:59 PM EST [facility] Comment:Accuracy of a glucos e result obtained from a capillary whole blood specimen relies upon adequate, non-compromised capillary blood flow. If the capillary glucose result is not consistent with the patient's clinical signs and symptoms, glucose testing should be repeated with either an arterial or venous sample on the glucometer or sent to the main labortory for testing. Comment 05/30/2025 4:59 PM EST [facility] [employer] Agent ID Amparo Mccullough 05/30/2025 4:59 PM EST [facility] Device ID [id number] 05/30/2025 4:59 PM EST [facility] Specimen Type POC Capillary 05/30/2025 4:59 PM EST [facility] Blood Capillary blood specimen / Unknown 05/30/2025 4:57 PM EST 05/30/2025 4:59 PM EST us Lokesh Anderson MD LAB POINT OF CARE TE ST DOCKED DEVICE UNSOLICITED RESULTS Final Result Performing Organization Address [facility] de Phone Number [facility] [address] [place] [address] * (ABNORMAL) POCT glucose meter (05/30/2025 12:05 PM EST) POCT Glucose 169(H) 74 - 99 mg/dL 05/30/2025 12:07 PM EST [facility] Comment:Accuracy of a glucos e result obtained from a capillary whole blood specimen relies upon adequate, non-compromised capillary blood flow. If the capillary glucose result is not consistent with the patient's clinical signs and symptoms, glucose testing should be repeated with either an arterial or venous sample on the glucometer or sent to the main labortory for testing. Comment 05/30/2025 12:07 PM EST [facility] [employer] Agent ID Amparo Mccullough 05/30/2025 12:07 PM EST [facility] Device ID [id number] 05/30/2025 12:07 PM EST [facility] Specimen Type POC Capillary 05/30/2025 12:07 PM EST [facility] Blood Capillary blood specimen / Unknown 05/30/2025 12:05 PM EST 05/30/2025 12:07 PM EST us Lokesh Anderson MD LAB POINT OF CARE TE ST DOCKED DEVICE UNSOLICITED RESULTS Final Result Performing Organization Address [facility] Co de Phone Number [facility] [address] [place] [address] * XR Chest 1 View (05/30/2025 11:29 AM EST) Anatomical Region Laterality Modality Chest Digital Radiogra phy Impressions 05/30/2025 1:21 PM EST Stable exam. CRITICAL RESULT: No. COMMUNICATION: Per this written report. By electronically signing this report, I, the attending physician, attest that I have personally reviewed the images/data for the above examination(s) and agree with the final edited report. Drafted by Abril Foreman DO on 05/30/2025 11:44 AM Final report signed by Veena Ho MD on 05/30/2025 1:21 PM Narrative 05/30/2025 1:21 PM EST CLINICAL INDICATION: water seal chest tube TECHNIQUE: XR CHEST 1 VIEW COMPARISON: Same day chest radiograph 6 hours prior FINDINGS: Support hardware in stable position. Similar small to moderate left pleural effusion with concurrent basilar lung opacities likely reflecting atelectasis. Cardiac silhouette and mediastinal contours are stable. No pneumothorax. Procedure Note Veena Ho MD - 05/30/2025 CLINICAL INDICATION: water seal chest tube TECHNIQUE: XR CHEST 1 VIEW COMPARISON: Same day chest radiograph 6 hours prior FINDINGS: Support hardware in stable position. Similar small to moderate leftpleural effusion with concurrent basilar lung opacities likely reflectingatelectasis. Cardiac silhouette and mediastinal contours are stable. Nopneumothorax. IMPRESSION: Stable exam. CRITICAL RESULT: No. COMMUNICATION: Per this written report. By electronically signing this report, I, the attending physician, romulo I have personally reviewed the images/data for the aboveexamination(s) and agree with the final edited report. Drafted by Abril Foreman DO on 05/30/2025 11:44 AM Final report signed by Veena Ho MD on 05/30/2025 1:21 PM [facility] PETROGR[facility] IMG XR PROCEDURES Final Resul t * (ABNORMAL) POCT glucose meter (05/30/2025 8:00 AM EST) POCT Glucose 127(H) 74 - 99 mg/dL 05/30/2025 8:01 AM EST [facility] Comment:Accuracy of a glucos e result obtained from a capillary whole blood specimen relies upon adequate, non-compromised capillary blood flow. If the capillary glucose result is not consistent with the patient's clinical signs and symptoms, glucose testing should be repeated with either an arterial or venous sample on the glucometer or sent to the main labortory for testing. Comment 05/30/2025 8:01 AM EST [facility] [employer] Agent ID Amparo Mccullough 05/30/2025 8:01 AM EST [facility] Device ID [id number] 05/30/2025 8:01 AM EST [facility] Specimen Type POC Capillary 05/30/2025 8:01 AM EST [facility] Blood Capillary blood specimen / Unknown 05/30/2025 8:00 AM EST 05/30/2025 8:01 AM EST us Lokesh Anderson MD LAB POINT OF CARE TE ST DOCKED DEVICE UNSOLICITED RESULTS Final Result Performing Organization Address City/[facility] Co de Phone Number [facility] [address] [place] [address] * (ABNORMAL) POCT glucose meter (05/30/2025 5:50 AM EST) POCT Glucose 156(H) 74 - 99 mg/dL 05/30/2025 5:52 AM EST [facility] Comment:Accuracy of a glucos e result obtained from a capillary whole blood specimen relies upon adequate, non-compromised capillary blood flow. If the capillary glucose result is not consistent with the patient's clinical signs and symptoms, glucose testing should be repeated with either an arterial or venous sample on the glucometer or sent to the main labortory for testing. Comment 05/30/2025 5:52 AM EST [facility] [employer] Agent ID Emily Palomino 05/30/2025 5:52 AM EST [facility] Device ID [id number] 05/30/2025 5:52 AM EST [facility] Specimen Type POC Capillary 05/30/2025 5:52 AM EST [facility] Blood Capillary blood specimen / Unknown 05/30/2025 5:50 AM EST 05/30/2025 5:52 AM EST us Lokesh Anderson MD LAB POINT OF CARE TE ST DOCKED DEVICE UNSOLICITED RESULTS Final Result [facility] [address] [place] [address] * XR Chest 1 View (05/30/2025 5:11 AM EST) Anatomical Region Laterality Modality Chest Digital Radiogra phy Impressions 05/30/2025 11:00 AM EST Stable chest radiograph. CRITICAL RESULT: No. COMMUNICATION: Per this written report. By electronically signing this report, I, the attending physician, attest that I have personally reviewed the images/data for the above examination(s) and agree with the final edited report. Drafted by Justo Weaver III, MD on 05/30/2025 10:09 AM Final report signed by Veena Ho MD on 05/30/2025 11:00 AM Narrative 05/30/2025 11:00 AM EST CLINICAL INDICATION: eval lung montez TECHNIQUE: XR CHEST 1 VIEW COMPARISON: Chest radiographs dated 05/29/2025 and 05/28/2025 FINDINGS: Stable positioning of support devices. Stable left basilar opacities and left pleural effusion. No right pleural effusion. No pneumothorax. The mediastinal contours are stable. Procedure Note Veena Ho MD - 05/30/2025 CLINICAL INDICATION: eval lung montez TECHNIQUE: XR CHEST 1 VIEW COMPARISON: Chest radiographs dated 05/29/2025 and 05/28/2025 FINDINGS: Stable positioning of support devices. Stable left basilar opacities andleft pleural effusion. No right pleural effusion. No pneumothorax. Themediastinal contours are stable. IMPRESSION: Stable chest radiograph. CRITICAL RESULT: No. COMMUNICATION: Per this written report. By electronically signing this report, I, the attending physician, attestthat I have personally reviewed the images/data for the aboveexamination(s) and agree with the final edited report. Drafted by Justo Weavre III, MD on 05/30/2025 10:09 AM Final report signed by Veena Ho MD on 05/30/2025 11:00 AM us [facility] PETROGR[facility] IMG XR PROCEDURES Final Resul t * Triglycerides (05/30/2025 3:47 AM EST) Triglycerides, Plasma 92 <150 mg/dL 05/30/2025 10:30 AM EST [facility] Comment: Triglyceride Reference Range (age >17 years): Desirable: <150 mg/dL Borderline high: 150 to 199 mg/dL High: 200 to 499 mg/dL Very high: >499 mg/dL Increased risk of pancreatitis: >1000 mg/dL Fasting greater than or equal to 12 hours? Unknown 05/30/2025 10:30 AM EST [facility] Blood Venous blood specimen / Unknown Venipuncture / Unknown 05/30/2025 3:47 AM EST 05/30/2025 4:04 AM EST us Lokesh Anderson MD LAB BLOOD ORDERABLES Final Resul t [facility] [address] [place] [address] * (ABNORMAL) Comprehensive Metabolic Panel, Plasma (05/30/2025 3:47 AM EST) Glucose, Plasma 135(H) 74 - 99 mg/dL 05/30/2025 4:34 AM EST [facility] BUN, Plasma 11 8 - 23 mg/dL 05/30/2025 4:34 AM EST [facility] Creatinine, Plasma 0.45(L) 0.60 - 1.10 mg/dL 05/30/2025 4:34 AM EST [facility] BUN/Creatinine Ratio 24 05/30/2025 4:34 AM EST [facility] Sodium, Plasma 137 136 - 145 mmol/L 05/30/2025 4:34 AM EST [facility] Potassium, Plasma 4.3 3.6 - 4.9 mmol/L 05/30/2025 4:34 AM EST [facility] Chloride, Plasma 104 97 - 107 mmol/L 05/30/2025 4:34 AM EST [facility] CO2, Plasma 25 22 - 29 mmol/L 05/30/2025 4:34 AM EST [facility] Anion Gap 8 6 - 16 mmol/L 05/30/2025 4:34 AM EST [facility] Total Calcium, Plasma 7.8(L) 8.9 - 10.2 mg/dL 05/30/2025 4:34 AM EST [facility] Total Protein 6.0(L) 6.3 - 7.9 g/dL 05/30/2025 4:34 AM EST [facility] Albumin, Plasma 2.0(L) 3.5 - 5.2 g/dL 05/30/2025 4:34 AM EST [facility] AST, Plasma 20 10 - 35 U/L 05/30/2025 4:34 AM EST [facility] Comment:Hemolyzed, result ma y be falsely increased. ALT, Plasma 9(L) 10 - 35 U/L 05/30/2025 4:34 AM EST [facility] Alkaline Phosphatase, Plasma 85 46 - 142 U/L 05/30/2025 4:34 AM EST [facility] Total Bilirubin, Plasma 0.3 0.2 - 1.1 mg/dL 05/30/2025 4:34 AM EST [facility] eGFRcr 103.0 mL/min/1.7 3m*2 05/30/2025 4:34 AM EST [facility] Comment:Reported eGFRcr in m L/min/1.73m2 is based the CKD-EPI 2020 equation that does not use a race coefficient. Blood Venous blood specimen / Unknown Venipuncture / Unknown 05/30/2025 3:47 AM EST 05/30/2025 4:04 AM EST us Lokesh Anderson MD LAB BLOOD ORDERABLES Final Resul t Performing Organization Address City/[facility] Co de Phone Number [facility] [address] [place] [address] * Phosphorus, Plasma (05/30/2025 3:47 AM EST) Phosphorus, Plasma 3.4 2.5 - 4.5 mg/dL 05/30/2025 4:34 AM EST [facility] Blood Venous blood specimen / Unknown Venipuncture / Unknown 05/30/2025 3:47 AM EST 05/30/2025 4:04 AM EST us Lokesh Anderson MD LAB BLOOD ORDERABLES Final Resul t Performing Organization Address City/[facility]/ZIP Co de Phone Number [facility] [address] [place] [address] * Magnesium, Plasma (05/30/2025 3:47 AM EST) Magnesium, Plasma 2.0 1.9 - 2.4 mg/dL 05/30/2025 4:34 AM EST [facility] Blood Venous blood specimen / Unknown Venipuncture / Unknown 05/30/2025 3:47 AM EST 05/30/2025 4:04 AM EST us Lokesh Anderson MD LAB BLOOD ORDERABLES Final Resul t [facility] [address] [place] [address] * (ABNORMAL) CBC W/O Differential (05/30/2025 3:47 AM EST) Pathologist [facility] WBC Count 9.27 3.70 - 10.30 10*3/uL LAB HEMATOLOGY METHOD 05/30/2025 4:14 AM EST [facility] RBC Count 3.02(L) 3.90 - 5.20 10*6/uL LAB HEMATOLOGY METHOD 05/30/2025 4:14 AM EST [facility] HGB 8.9(L) 11.2 - 15.7 g/dL LAB HEMATOLOGY METHOD 05/30/2025 4:14 AM EST [facility] HCT 26.9(L) 34.0 - 45.0 % LAB HEMATOLOGY METHOD 05/30/2025 4:14 AM EST [facility] Platelet Count 475(H) 155 - 369 10*3/uL LAB HEMATOLOGY METHOD 05/30/2025 4:14 AM EST [facility] MCV 89 79 - 98 fL LAB HEMATOLOGY METHOD 05/30/2025 4:14 AM EST [facility] MCH 29.5 26.0 - 32.0 pg LAB HEMATOLOGY METHOD 05/30/2025 4:14 AM EST [facility] MCHC 33.1 30.7 - 35.5 g/dL LAB HEMATOLOGY METHOD 05/30/2025 4:14 AM EST [facility] RDW 16.2(H) 11.5 - 14.5 % LAB HEMATOLOGY METHOD 05/30/2025 4:14 AM EST [facility] MPV 9.7 8.8 - 12.5 fL LAB HEMATOLOGY METHOD 05/30/2025 4:14 AM EST [facility] nRBC 0.0 <=0.0 per 100 WBCs LAB HEMATOLOGY METHOD 05/30/2025 4:14 AM EST [facility] Blood Venous blood specimen / Unknown Venipuncture / Unknown 05/30/2025 3:47 AM EST 05/30/2025 4:05 AM EST us Lokesh Anderson MD LAB BLOOD ORDERABLES Final Resul t Performing Organization Address City/[facility]/ZIP Co de Phone Number [facility] [address] [place] [address] * (ABNORMAL) POCT glucose meter (05/29/2025 11:42 PM EST) POCT Glucose 167(H) 74 - 99 mg/dL 05/29/2025 11:43 PM EST [facility] Comment:Accuracy of a glucos e result obtained from a capillary whole blood specimen relies upon adequate, non-compromised capillary blood flow. If the capillary glucose result is not consistent with the patient's clinical signs and symptoms, glucose testing should be repeated with either an arterial or venous sample on the glucometer or sent to the main labortory for testing. Comment 05/29/2025 11:43 PM EST [facility] Liv[employer] Agent ID Emily Palomino 05/29/2025 11:43 PM EST [facility] Device ID [id number] 05/29/2025 11:43 PM EST [facility] Specimen Type POC Capillary 05/29/2025 11:43 PM EST [facility] Blood Capillary blood specimen / Unknown 05/29/2025 11:42 PM EST 05/29/2025 11:43 PM EST us Lokesh Anderson MD LAB POINT OF CARE TE ST DOCKED DEVICE UNSOLICITED RESULTS Final Result Performing Organization Address City/[facility]/ZIP Co de Phone Number [facility] [address] [place] [address] * (ABNORMAL) POCT glucose meter (05/29/2025 5:37 PM EST) POCT Glucose 191(H) 74 - 99 mg/dL 05/29/2025 5:39 PM EST [facility] Comment:Accuracy of a glucos e result obtained from a capillary whole blood specimen relies upon adequate, non-compromised capillary blood flow. If the capillary glucose result is not consistent with the patient's clinical signs and symptoms, glucose testing should be repeated with either an arterial or venous sample on the glucometer or sent to the main labortory for testing. Comment 05/29/2025 5:39 PM EST [facility] Liv[employer] Agent ID Tanvi Howard 05/29/20 5:39 PM EST [facility] Device ID [id number] 05/29/2025 5:39 PM EST [facility] Specimen Type POC Capillary 05/29/2025 5:39 PM EST [facility] Blood Capillary blood specimen / Unknown 05/29/2025 5:37 PM EST 05/29/2025 5:39 PM EST us Lokesh Anderson MD LAB POINT OF CARE TE ST DOCKED DEVICE UNSOLICITED RESULTS Final Result Performing Organization Address City/State/[facility] Co de Phone Number [facility] [address] [place] [address] * (ABNORMAL) POCT glucose meter (05/29/2025 12:06 PM EST) [facility] Signature POCT Glucose 212(H) 74 - 99 mg/dL 05/29/2025 12:08 PM EST [facility] Comment:Accuracy of a glucos e result obtained from a capillary whole blood specimen relies upon adequate, non-compromised capillary blood flow. If the capillary glucose result is not consistent with the patient's clinical signs and symptoms, glucose testing should be repeated with either an arterial or venous sample on the glucometer or sent to the main labortory for testing. Comment 05/29/2025 12:08 PM EST [facility] Liv[employer] Agent ID Tanvi Howard 05/29/20 12:08 PM EST [facility] Device ID [id number] 05/29/2025 12:08 PM EST [facility] Specimen Type POC Capillary 05/29/2025 12:08 PM EST [facility] Blood Capillary blood specimen / Unknown 05/29/2025 12:06 PM EST 05/29/2025 12:08 PM EST us Lokesh Anderson MD LAB POINT OF CARE TE ST DOCKED DEVICE UNSOLICITED RESULTS Final Result Performing Organization Address [facility] de Phone Number [facility] [address] [place] [address] * (ABNORMAL) POCT glucose meter (05/29/2025 8:21 AM EST) POCT Glucose 144(H) 74 - 99 mg/dL 05/29/2025 8:23 AM EST [facility] Comment:Accuracy of a glucos e result obtained from a capillary whole blood specimen relies upon adequate, non-compromised capillary blood flow. If the capillary glucose result is not consistent with the patient's clinical signs and symptoms, glucose testing should be repeated with either an arterial or venous sample on the glucometer or sent to the main labortory for testing. Comment 05/29/2025 8:23 AM EST [facility] Liv[employer] Agent ID Tanvi Howard 05/29/20 8:23 AM EST [facility] Device ID [id number] 05/29/2025 8:23 AM EST [facility] Specimen Type POC Capillary 05/29/2025 8:23 AM EST [facility] Blood Capillary blood specimen / Unknown 05/29/2025 8:21 AM EST 05/29/2025 8:23 AM EST Lokesh Anderson MD LAB POINT OF CARE TE ST DOCKED DEVICE UNSOLICITED RESULTS Final Result Performing Organization Address [facility] de Phone Number [facility] [address] [place] [address] * XR Chest 1 View (05/29/2025 4:57 AM EST) Anatomical Region Laterality Modality Chest Digital Radiogra phy Impressions 05/29/2025 10:22 AM EST Continued improvement in left pleural effusion with improved left lung aeration. CRITICAL RESULT: No. COMMUNICATION: Per this written report. By electronically signing this report, I, the attending physician, attest that I have personally reviewed the images/data for the above examination(s) and agree with the final edited report. Drafted by Justo Weaver III, MD on 05/29/2025 9:13 AM Final report signed by Shady Scott MD on 05/29/2025 10:22 AM Narrative 05/29/2025 10:22 AM EST CLINICAL INDICATION: eval lung montez TECHNIQUE: XR CHEST 1 VIEW COMPARISON: Chest radiograph dated 05/28/2025 and 05/27/2025 FINDINGS: Stable positioning of support devices. Continued improvement in left pleural effusion with improved left lung aeration.No right pleural effusion. No pneumothorax. Mediastinal contours are stable. Procedure Note Shady Scott MD - 05/29/2025 CLINICAL INDICATION: eval lung montez TECHNIQUE: XR CHEST 1 VIEW COMPARISON: Chest radiograph dated 05/28/2025 and 05/27/2025 FINDINGS: Stable positioning of support devices. Continued improvement in leftpleural effusion with improved left lung aeration.No right pleuraleffusion. No pneumothorax. Mediastinal contours are stable. IMPRESSION: Continued improvement in left pleural effusion with improved left lungaeration. CRITICAL RESULT: No. COMMUNICATION: Per this written report. By electronically signing this report, I, the attending physician, [email or web address] I have personally reviewed the images/data for the aboveexamination(s) and agree with the final edited report. Drafted by Justo Weaver III, MD on 05/29/2025 9:13 AM Final report signed by Shady Scott MD on 05/29/2025 10:22 AM Rosa Chapman APRN IMG XR PROCEDURES Final Resul t * (ABNORMAL) Comprehensive Metabolic Panel, Plasma (05/29/2025 3:55 AM EST) Glucose, Plasma 160(H) 74 - 99 mg/dL 05/29/2025 6:02 AM EST [facility] BUN, Plasma 15 8 - 23 mg/dL 05/29/2025 6:02 AM EST [facility] Creatinine, Plasma 0.46(L) 0.60 - 1.10 mg/dL 05/29/2025 6:02 AM EST [facility] BUN/Creatinine Ratio 33 05/29/2025 6:02 AM EST [facility] Sodium, Plasma 135(L) 136 - 145 mmol/L 05/29/2025 6:02 AM EST [facility] Potassium, Plasma 4.1 3.6 - 4.9 mmol/L 05/29/2025 6:02 AM EST [facility] Chloride, Plasma 103 97 - 107 mmol/L 05/29/2025 6:02 AM EST [facility] CO2, Plasma 24 22 - 29 mmol/L 05/29/2025 6:02 AM EST [facility] Anion Gap 8 6 - 16 mmol/L 05/29/2025 6:02 AM EST [facility] Total Calcium, Plasma 7.7(L) 8.9 - 10.2 mg/dL 05/29/2025 6:02 AM EST [facility] Total Protein 5.9(L) 6.3 - 7.9 g/dL 05/29/2025 6:02 AM EST [facility] Albumin, Plasma 2.0(L) 3.5 - 5.2 g/dL 05/29/2025 6:02 AM EST [facility] AST, Plasma 11 10 - 35 U/L 05/29/2025 6:02 AM EST [facility] ALT, Plasma 8(L) 10 - 35 U/L 05/29/2025 6:02 AM EST [facility] Alkaline Phosphatase, Plasma 81 46 - 142 U/L 05/29/2025 6:02 AM EST [facility] Total Bilirubin, Plasma 0.4 0.2 - 1.1 mg/dL 05/29/2025 6:02 AM EST [facility] eGFRcr 102.5 mL/min/1.7 3m*2 05/29/2025 6:02 AM EST [facility] Comment:Reported eGFRcr in m L/min/1.73m2 is based the CKD-EPI 2020 equation that does not use a race coefficient. Blood Venous blood specimen / Unknown Venipuncture / Unknown 05/29/2025 3:55 AM EST 05/29/2025 4:03 AM EST us Lokesh Anderson MD LAB BLOOD ORDERABLES Final Resul t [facility] [address] [place] [address] * Phosphorus, Plasma (05/29/2025 3:55 AM EST) Phosphorus, Plasma 2.9 2.5 - 4.5 mg/dL 05/29/2025 6:02 AM EST [facility] Blood Venous blood specimen / Unknown Venipuncture / Unknown 05/29/2025 3:55 AM EST 05/29/2025 4:03 AM EST us Lokesh Anderson MD LAB BLOOD ORDERABLES Final Resul t Performing Organization Address City/[facility]/ZIP Co de Phone Number [facility] [address] [place] [address] * (ABNORMAL) Magnesium, Plasma (05/29/2025 3:55 AM EST) Magnesium, Plasma 1.8(L) 1.9 - 2.4 mg/dL 05/29/2025 6:02 AM EST [facility] Blood Venous blood specimen / Unknown Venipuncture / Unknown 05/29/2025 3:55 AM EST 05/29/2025 4:03 AM EST us Lokesh Anderson MD LAB BLOOD ORDERABLES Final Resul t Performing Organization Address City/[facility]/ZIP Co de Phone Number [facility] [address] [place] [address] * (ABNORMAL) CBC W/O Differential (05/29/2025 3:55 AM EST) WBC Count 13.07(H) 3.70 - 10.30 10*3/uL LAB HEMATOLOGY METHOD 05/29/2025 4:19 AM EST [facility] RBC Count 3.15(L) 3.90 - 5.20 10*6/uL LAB HEMATOLOGY METHOD 05/29/2025 4:19 AM EST [facility] HGB 9.3(L) 11.2 - 15.7 g/dL LAB HEMATOLOGY METHOD 05/29/2025 4:19 AM EST [facility] HCT 28.4(L) 34.0 - 45.0 % LAB HEMATOLOGY METHOD 05/29/2025 4:19 AM EST [facility] Platelet Count 469(H) 155 - 369 10*3/uL LAB HEMATOLOGY METHOD 05/29/2025 4:19 AM EST [facility] MCV 90 79 - 98 fL LAB HEMATOLOGY METHOD 05/29/2025 4:19 AM EST [facility] MCH 29.5 26.0 - 32.0 pg LAB HEMATOLOGY METHOD 05/29/2025 4:19 AM EST [facility] MCHC 32.7 30.7 - 35.5 g/dL LAB HEMATOLOGY METHOD 05/29/2025 4:19 AM EST [facility] RDW 16.3(H) 11.5 - 14.5 % LAB HEMATOLOGY METHOD 05/29/2025 4:19 AM EST [facility] MPV 9.2 8.8 - 12.5 fL LAB HEMATOLOGY METHOD 05/29/2025 4:19 AM EST [facility] nRBC 0.0 <=0.0 per 100 WBCs LAB HEMATOLOGY METHOD 05/29/2025 4:19 AM EST [facility] Blood Venous blood specimen / Unknown Venipuncture / Unknown 05/29/2025 3:55 AM EST 05/29/2025 4:03 AM EST Lokesh Anderson MD LAB BLOOD ORDERABLES Final Resul t [facility] [address] [place] [address] * (ABNORMAL) POCT glucose meter (05/29/2025 3:08 AM EST) POCT Glucose 169(H) 74 - 99 mg/dL 05/29/2025 3:10 AM EST [facility] Comment:Accuracy of a glucos e result obtained from a capillary whole blood specimen relies upon adequate, non-compromised capillary blood flow. If the capillary glucose result is not consistent with the patient's clinical signs and symptoms, glucose testing should be repeated with either an arterial or venous sample on the glucometer or sent to the main labortory for testing. Comment 05/29/2025 3:10 AM EST [facility] Liv[employer] Agent ID Zhang Andersonon 3:10 AM EST [facility] Device ID [id number] 05/29/2025 3:10 AM EST [facility] Specimen Type POC Capillary 05/29/2025 3:10 AM EST [facility] Blood Capillary blood specimen / Unknown 05/29/2025 3:08 AM EST 05/29/2025 3:10 AM EST us Lokesh Anderson MD LAB POINT OF CARE TE ST DOCKED DEVICE UNSOLICITED RESULTS Final Result Performing Organization Address [facility] de Phone Number [facility] [address] [place] [address] * (ABNORMAL) POCT glucose meter (05/28/2025 11:10 PM EST) POCT Glucose 201(H) 74 - 99 mg/dL 05/28/2025 11:12 PM EST [facility] Comment:Accuracy of a glucos e result obtained from a capillary whole blood specimen relies upon adequate, non-compromised capillary blood flow. If the capillary glucose result is not consistent with the patient's clinical signs and symptoms, glucose testing should be repeated with either an arterial or venous sample on the glucometer or sent to the main labortory for testing. Comment 05/28/2025 11:12 PM EST [facility] Liv[employer] Agent ID Jigar Anderson 11:12 PM EST [facility] Device ID [id number] 05/28/2025 11:12 PM EST [facility] Specimen Type POC Capillary 05/28/2025 11:12 PM EST [facility] Blood Capillary blood specimen / Unknown 05/28/2025 11:10 PM EST 05/28/2025 11:12 PM EST us Lokesh Anderson MD LAB POINT OF CARE TE ST DOCKED DEVICE UNSOLICITED RESULTS Final Result Performing Organization Address City/[facility] Co de Phone Number [facility] [address] [place] [address] * (ABNORMAL) POCT glucose meter (05/28/2025 6:04 PM EST) POCT Glucose 224(H) 74 - 99 mg/dL 05/28/2025 6:06 PM EST [facility] Comment:Accuracy of a glucos e result obtained from a capillary whole blood specimen relies upon adequate, non-compromised capillary blood flow. If the capillary glucose result is not consistent with the patient's clinical signs and symptoms, glucose testing should be repeated with either an arterial or venous sample on the glucometer or sent to the main labortory for testing. Comment 05/28/2025 6:06 PM EST [facility] Liv[employer] Agent ID Tanvi Howard 05/28/20 6:06 PM EST [facility] Device ID [id number] 05/28/2025 6:06 PM EST [facility] Specimen Type POC Capillary 05/28/2025 6:06 PM EST [facility] Blood Capillary blood specimen / Unknown 05/28/2025 6:04 PM EST 05/28/2025 6:06 PM EST us Lokesh Anderson MD LAB POINT OF CARE TE ST DOCKED DEVICE UNSOLICITED RESULTS Final Result Performing Organization Address City/[facility] Co de Phone Number [facility] [address] [place] [address] * (ABNORMAL) POCT glucose meter (05/28/2025 1:14 PM EST) POCT Glucose 227(H) 74 - 99 mg/dL 05/28/2025 1:19 PM EST [facility] Comment:Accuracy of a glucos e result obtained from a capillary whole blood specimen relies upon adequate, non-compromised capillary blood flow. If the capillary glucose result is not consistent with the patient's clinical signs and symptoms, glucose testing should be repeated with either an arterial or venous sample on the glucometer or sent to the main labortory for testing. Comment 05/28/2025 1:19 PM EST [facility] [employer] Agent ID Amena Shipley 05/28/2025 1:19 PM EST [facility] Device ID [id number] 05/28/2025 1:19 PM EST [facility] Specimen Type POC Capillary 05/28/2025 1:19 PM EST [facility] Blood Capillary blood specimen / Unknown 05/28/2025 1:14 PM EST 05/28/2025 1:19 PM EST us Lokesh Anderson MD LAB POINT OF CARE TE ST DOCKED DEVICE UNSOLICITED RESULTS Final Result [facility] [address] [place] [address] * (ABNORMAL) POCT glucose meter (05/28/2025 7:53 AM EST) POCT Glucose 160(H) 74 - 99 mg/dL 05/28/2025 7:55 AM EST [facility] Comment:Accuracy of a glucos e result obtained from a capillary whole blood specimen relies upon adequate, non-compromised capillary blood flow. If the capillary glucose result is not consistent with the patient's clinical signs and symptoms, glucose testing should be repeated with either an arterial or venous sample on the glucometer or sent to the main labortory for testing. Comment 05/28/2025 7:55 AM EST [facility] Liv[employer] Agent ID Tanvi Howard 05/28/20 7:55 AM EST [facility] Device ID [id number] 05/28/2025 7:55 AM EST [facility] Specimen Type POC Capillary 05/28/2025 7:55 AM EST [facility] Blood Capillary blood specimen / Unknown 05/28/2025 7:53 AM EST 05/28/2025 7:55 AM EST Lokesh Anderson MD LAB POINT OF CARE TE ST DOCKED DEVICE UNSOLICITED RESULTS Final Result Performing Organization Address City/State/[facility] Co de Phone Number [facility] [address] [place] [address] * XR Chest 1 View (05/28/2025 6:25 AM EST) Anatomical Region Laterality Modality Chest Digital Radiogra phy Impressions 05/28/2025 11:15 AM EST Worsening left lung airspace disease. CRITICAL RESULT: No. COMMUNICATION: Per this written report. By electronically signing this report, I, the attending physician, attest that I have personally reviewed the images/data for the above examination(s) and agree with the final edited report. Drafted by Abril Foreman DO on 05/28/2025 10:31 AM Final report signed by Shady Scott MD on 05/28/2025 11:15 AM Narrative 05/28/2025 11:15 AM EST CLINICAL INDICATION: left pleural effusion TECHNIQUE: XR CHEST 1 VIEW COMPARISON: May 27, 2025 FINDINGS: Left chest tube unchanged in positioning. No pneumothorax. Interval increase in left lung airspace opacities stable small to moderate-sized left pleural effusion. Hypoventilatory changes. Cardiac size and mediastinal contours are stable. Procedure Note Shady Scott MD - 05/28/2025 CLINICAL INDICATION: left pleural effusion TECHNIQUE: XR CHEST 1 VIEW COMPARISON: May 27, 2025 FINDINGS: Left chest tube unchanged in positioning. No pneumothorax. Interval increase in left lung airspace opacities stable small tomoderate-sized left pleural effusion. Hypoventilatory changes. Cardiacsize and mediastinal contours are stable. IMPRESSION: Worsening left lung airspace disease. CRITICAL RESULT: No. COMMUNICATION: Per this written report. By electronically signing this report, I, the attending physician, heavenlyat I have personally reviewed the images/data for the aboveexamination(s) and agree with the final edited report. Drafted by Abril Foreman DO on 05/28/2025 10:31 AM Final report signed by Shady Scott MD on 05/28/2025 11:15 AM Lokesh Anderson MD IMG XR PROCEDURES Final Result * (ABNORMAL) Comprehensive Metabolic Panel, Plasma (05/28/2025 4:59 AM EST) Glucose, Plasma 168(H) 74 - 99 mg/dL 05/28/2025 6:14 AM [facility] BUN, Plasma 14 8 - 23 mg/dL 05/28/2025 6:14 AM EST [facility] Creatinine, Plasma 0.46(L) 0.60 - 1.10 mg/dL 05/28/2025 6:14 AM EST [facility] BUN/Creatinine Ratio 30 05/28/2025 6:14 AM EST [facility] Sodium, Plasma 133(L) 136 - 145 mmol/L 05/28/2025 6:14 AM [facility] Potassium, Plasma 4.3 3.6 - 4.9 mmol/L 05/28/2025 6:14 AM [facility] Chloride, Plasma 102 97 - 107 mmol/L 05/28/2025 6:14 AM [facility] CO2, Plasma 23 22 - 29 mmol/L 05/28/2025 6:14 AM [facility] Anion Gap 8 6 - 16 mmol/L 05/28/2025 6:14 AM EST [facility] Total Calcium, Plasma 7.5(L) 8.9 - 10.2 mg/dL 05/28/2025 6:14 AM EST [facility] Total Protein 5.7(L) 6.3 - 7.9 g/dL 05/28/2025 6:14 AM EST [facility] Albumin, Plasma 1.9(L) 3.5 - 5.2 g/dL 05/28/2025 6:14 AM EST [facility] AST, Plasma 14 10 - 35 U/L 05/28/2025 6:14 AM EST [facility] ALT, Plasma 10 10 - 35 U/L 05/28/2025 6:14 AM EST [facility] Alkaline Phosphatase, Plasma 77 46 - 142 U/L 05/28/2025 6:14 AM EST [facility] Total Bilirubin, Plasma 0.4 0.2 - 1.1 mg/dL 05/28/2025 6:14 AM EST [facility] eGFRcr 102.5 mL/min/1.7 3m*2 05/28/2025 6:14 AM EST [facility] Comment:Reported eGFRcr in m L/min/1.73m2 is based the CKD-EPI 2020 equation that does not use a race coefficient. Blood Venous blood specimen / Unknown Venipuncture / Unknown 05/28/2025 4:59 AM EST 05/28/2025 5:46 AM EST us Lokesh Anderson MD LAB BLOOD ORDERABLES Final Resul t [facility] [address] [place] [address] * Phosphorus, Plasma (05/28/2025 4:59 AM EST) Phosphorus, Plasma 2.9 2.5 - 4.5 mg/dL 05/28/2025 6:14 AM EST [facility] Blood Venous blood specimen / Unknown Venipuncture / Unknown 05/28/2025 4:59 AM EST 05/28/2025 5:46 AM EST us Lokesh Anderson MD LAB BLOOD ORDERABLES Final Resul t [facility] [address] [place] [address] * Magnesium, Plasma (05/28/2025 4:59 AM EST) Pathologist [facility] Magnesium, Plasma 1.9 1.9 - 2.4 mg/dL 05/28/2025 6:14 AM EST [facility] Blood Venous blood specimen / Unknown Venipuncture / Unknown 05/28/2025 4:59 AM EST 05/28/2025 5:46 AM EST us Lokesh Anderson MD LAB BLOOD ORDERABLES Final Resul t Performing Organization Address City/[facility]/ZIP Co de Phone Number [facility] [address] [place] [address] * (ABNORMAL) CBC W/O Differential (05/28/2025 4:59 AM EST) Pathologist [facility] WBC Count 15.74(H) 3.70 - 10.30 10*3/uL LAB HEMATOLOGY METHOD 05/28/2025 5:58 AM EST [facility] RBC Count 3.35(L) 3.90 - 5.20 10*6/uL LAB HEMATOLOGY METHOD 05/28/2025 5:58 AM EST [facility] HGB 9.8(L) 11.2 - 15.7 g/dL LAB HEMATOLOGY METHOD 05/28/2025 5:58 AM EST [facility] HCT 29.5(L) 34.0 - 45.0 % LAB HEMATOLOGY METHOD 05/28/2025 5:58 AM EST [facility] Platelet Count 538(H) 155 - 369 10*3/uL LAB HEMATOLOGY METHOD 05/28/2025 5:58 AM EST [facility] MCV 88 79 - 98 fL LAB HEMATOLOGY METHOD 05/28/2025 5:58 AM EST [facility] MCH 29.3 26.0 - 32.0 pg LAB HEMATOLOGY METHOD 05/28/2025 5:58 AM EST [facility] MCHC 33.2 30.7 - 35.5 g/dL LAB HEMATOLOGY METHOD 05/28/2025 5:58 AM EST [facility] RDW 16.3(H) 11.5 - 14.5 % LAB HEMATOLOGY METHOD 05/28/2025 5:58 AM EST [facility] MPV 9.7 8.8 - 12.5 fL LAB HEMATOLOGY METHOD 05/28/2025 5:58 AM EST [facility] nRBC 0.0 <=0.0 per 100 WBCs LAB HEMATOLOGY METHOD 05/28/2025 5:58 AM EST [facility] Blood Venous blood specimen / Unknown Venipuncture / Unknown 05/28/2025 4:59 AM EST 05/28/2025 5:47 AM EST us Lokesh Anderson MD LAB BLOOD ORDERABLES Final Resul t Performing Organization Address City/[facility] Co de Phone Number [facility] [address] [place] [address] * (ABNORMAL) POCT glucose meter (05/28/2025 4:56 AM EST) [facility] POCT Glucose 136(H) 74 - 99 mg/dL 05/28/2025 4:57 AM EST [facility] Comment:Accuracy of a glucos e result obtained from a capillary whole blood specimen relies upon adequate, non-compromised capillary blood flow. If the capillary glucose result is not consistent with the patient's clinical signs and symptoms, glucose testing should be repeated with either an arterial or venous sample on the glucometer or sent to the main labortory for testing. Comment 05/28/2025 4:57 AM EST [facility] Livestock [employer] Agent ID Rylie Valentin 4:57 AM EST [facility] Device ID [id number] 05/28/2025 4:57 AM EST [facility] Specimen Type POC Capillary 05/28/2025 4:57 AM EST [facility] Blood Capillary blood specimen / Unknown 05/28/2025 4:56 AM EST 05/28/2025 4:57 AM EST us Lokesh Anderson MD LAB POINT OF CARE TE ST DOCKED DEVICE UNSOLICITED RESULTS Final Result Performing Organization Address City/[facility]/ZIP Co de Phone Number [facility] [address] [place] [address] * (ABNORMAL) POCT glucose meter (05/27/2025 11:46 PM EST) [facility] POCT Glucose 256(H) 74 - 99 mg/dL 05/27/2025 11:50 PM EST [facility] Comment:Accuracy of a glucos e result obtained from a capillary whole blood specimen relies upon adequate, non-compromised capillary blood flow. If the capillary glucose result is not consistent with the patient's clinical signs and symptoms, glucose testing should be repeated with either an arterial or venous sample on the glucometer or sent to the main labortory for testing. Comment 05/27/2025 11:50 PM EST [facility] Livestock Commission Agent ID Emily Palomino 05/27/2025 11:50 PM EST [facility] Device ID [id number] 05/27/2025 11:50 PM EST [facility] Specimen Type POC Capillary 05/27/2025 11:50 PM EST [facility] Blood Capillary blood specimen / Unknown 05/27/2025 11:46 PM EST 05/27/2025 11:50 PM EST Lokesh Anderson MD LAB POINT OF CARE TE ST DOCKED DEVICE UNSOLICITED RESULTS Final Result Performing Organization Address City/State/[facility] Co de Phone Number [facility] [address] [place] [address] * (ABNORMAL) POCT glucose meter (05/27/2025 7:56 PM EST) [facility] POCT Glucose 260(H) 74 - 99 mg/dL 05/27/2025 8:00 PM EST [facility] Comment:Accuracy of a glucos e result obtained from a capillary whole blood specimen relies upon adequate, non-compromised capillary blood flow. If the capillary glucose result is not consistent with the patient's clinical signs and symptoms, glucose testing should be repeated with either an arterial or venous sample on the glucometer or sent to the main labortory for testing. Comment 05/27/2025 8:00 PM EST [facility] [employer] Agent ID Beto Benton 025 8:00 PM EST [facility] Device ID [id number] 05/27/2025 8:00 PM EST [facility] Specimen Type POC Capillary 05/27/2025 8:00 PM EST [facility] Blood Capillary blood specimen / Unknown 05/27/2025 7:56 PM EST 05/27/2025 8:00 PM EST Lokesh Anderson MD LAB POINT OF CARE TE ST DOCKED DEVICE UNSOLICITED RESULTS Final Result [facility] [address] [place] [id number] * XR Chest 1 View (05/27/2025 7:24 PM EST) Anatomical Region Laterality Modality Chest Digital Radiogra phy Impressions 05/27/2025 7:47 PM EST Improved aeration of the left lung with decreased left effusion and opacity status post placement of a left chest tube CRITICAL RESULT: No COMMUNICATION: Per this written report. Drafted by Chuck Whittington MD on 05/27/2025 7:46 PM Final report signed by Chuck Whittington MD on 05/27/2025 7:47 PM Narrative 05/27/2025 7:47 PM EST CLINICAL INDICATION: Post op decortication TECHNIQUE: XR CHEST 1 VIEW COMPARISON: Same day radiograph at 4:30 AM FINDINGS: The cardiomediastinal silhouette is stable. Interval placement of a left chest tube with decreased left effusion and improved aeration of the left lung. Residual small to moderate left effusion and lower lung opacities. The right lung remains clear. Procedure Note Chuck Whittington MD - 05/27/2025 CLINICAL INDICATION: Post op decortication TECHNIQUE: XR CHEST 1 VIEW COMPARISON: Same day radiograph at 4:30 AM FINDINGS: The cardiomediastinal silhouette is stable. Interval placement of a leftchest tube with decreased left effusion and improved aeration of the leftlung. Residual small to moderate left effusion and lower lung opacities.The right lung remains clear. IMPRESSION: Improved aeration of the left lung with decreased left effusion andopacity status post placement of a left chest tube CRITICAL RESULT: No COMMUNICATION: Per this written report. Drafted by Chuck Whittington MD on 05/27/2025 7:46 PM Final report signed by Chuck Whittington MD on 05/27/2025 7:47 PM Lokesh Anderson MD IMG XR PROCEDURES Final Result * Anaerobic Culture (05/27/2025 6:34 PM EST) Culture No growth at day 4 06/03/2025 2:28 PM EST [facility] Body Fluid Specimen from pleura obtained by thoracentesis / Unknown Non-blood Collection / Unknown 05/27/2025 6:34 PM EST 05/27/2025 7:38 PM EST Lokesh Anderson MD LAB MICROBIOLOGY - GENERAL ORDER [place] [address] * Body Fluid Culture and Gram Stain (05/27/2025 6:34 PM EST) Culture No growth at day 4 2024 7:01 AM EST [facility] Gram Stain Result Rare Polymorphonuclear leukocytes 05/31/2025 7:01 AM EST [facility] Gram Stain Result No organisms seen 05/31/2025 7:01 AM EST [facility] Body Fluid Specimen from pleura obtained by thoracentesis / Unknown Non-blood Collection / Unknown 05/27/2025 6:34 PM EST 05/27/2025 7:38 PM EST Lokesh Anderson MD LAB MICROBIOLOGY - GENERAL ORDER FARSHAD Final Result Performing Organization Address City/[facility]/ZIP Co de Phone Number [facility] [address] [place] [address] * Lipase, body fluid (05/27/2025 6:34 PM EST) Lipase, Fluid Result 14 U/L 05/30/2025 1:23 PM EST [facility] Lipase Fluid Type Pleural fluid 05/30/2025 1:23 PM EST [facility] Pleural Fluid Non-blood Collection / Unknown 05/27/2025 6:34 PM EST 05/27/2025 7:00 PM EST Narrative [facility] - 05/30/2025 1:23 PM EST Pleural INTERPRETIVE INFORMATION: Lipase, Fluid For information on body fluid reference ranges and/or interpretive guidance visit [email or web address] This test was developed and its performance characteristics determined by [facility]. It has not been cleared or approved by the [place] Food and Drug Administration. This test was performed in a CLIA certified laboratory and is intended for clinical purposes. Performed By: [facility] [address] [place] [address] Concaving Machine Operator: Margarito Barlow MD, PhD CLIA Number: [id number] Dylon Griggs MD LAB REF LAB BLOOD AND FLUID ORD Final Result [facility] [address] [place] [address] * Amylase, Pleural Fluid (05/27/2025 6:34 PM EST) Amylase, Pleural Fluid 19 U/L 05/27/2025 10:51 PM EST [facility] Pleural Fluid Pleural fluid specimen / Unknown Non-blood Collection / Unknown 05/27/2025 6:34 PM EST 05/27/2025 7:00 PM EST Narrative [facility] - 05/27/2025 10:51 PM EST Reference Values: No established reference interval. Interpret with caution. This test was developed and its performance characteristics determined by [facility]. The U.S. Food and Drug Administration has not approved or cleared this test; however, FDA clearance or approval is not currently required for clinical use. The results are not intended to be used as the sole means for clinical diagnosis or patient management decisions. Pleural Fluid: Elevated pleural fluid amylase is a level greater than the upper reference limit for serum and a [id number] amylase ratio greater than one. Note: Interpretive information was assimilated from a literature search (e.g., studies, guidelines, textbooks) related to body fluid testing. Information should be interpreted with caution because the literature sources cross many decades, analyzers and reagent formulations. All information should be viewed in the context of the patient's clinical presentation. Body fluid amylase should not be used as sole evidence of malignancy for diagnostic purposes and should be reviewed in correlation with cytology, plasma/serum results, and other clinical evidence. Dylon Griggs MD LAB BODY FLUIDS AND STOOLS O RDERABLES Final Result Performing Organization Address City/[facility]/ZIP Co de Phone Number [facility] [address] [place] [address] * Transfuse RBC (05/27/2025 5:38 PM EST) Gabriel Duran [employer] SUPERVISOR BLOOD TRANSFUSION ORDERAB LES Edited Result - Final * Prepare Leukocyte Reduced RBC: 2 Units (05/27/2025 4:23 PM EST) Product Code [id number] CH BLOO D BANK Dispense Status Transfused BLOOD BANK Blood Expiration Date BLOOD BANK Unit Number [id number] CH B LOOD BANK Product Blood Type 5100 BLOOD BANK Blood Type O+ CH BLOOD BANK Crossmatch Compatible BLOOD BANK Product Code [id number] BLOO D BANK Dispense Status Released BLOOD BANK Blood Expiration Date [id number] BLOOD BANK Unit Number [id number] CH B LOOD BANK Product Blood Type 5100 BLOOD BANK Blood Type O+ BLOOD BANK Crossmatch Compatible BLOOD BANK Other Gabriel Duran [employer]ER PRINTING SUPERVISOR BLOOD BANK PRODUCT ORDERA BLES Final Result Performing Organization Address [facility] Co de Phone Number BLOOD BANK [address] * (ABNORMAL) POCT glucose meter (05/27/2025 2:35 PM EST) POCT Glucose 190(H) 74 - 99 mg/dL 05/27/2025 2:36 PM EST [facility] Comment:Accuracy of a glucos e result obtained from a capillary whole blood specimen relies upon adequate, non-compromised capillary blood flow. If the capillary glucose result is not consistent with the patient's clinical signs and symptoms, glucose testing should be repeated with either an arterial or venous sample on the glucometer or sent to the main labortory for testing. Comment 05/27/2025 2:36 PM EST [facility] Livestock Commission Agent ID Kalee Duncan 05/27/2025 2:36 PM EST [facility] Device ID [id number] 05/27/2025 2:36 PM EST [facility] Specimen Type POC Venous 05/27/2025 2:36 PM EST [facility] Blood Venous blood specimen / Unknown 05/27/2025 2:35 PM EST 05/27/2025 2:36 PM EST us Lokesh Anderson MD LAB POINT OF CARE TE ST DOCKED DEVICE UNSOLICITED RESULTS Final Result Performing Organization Address City/[facility] Co de Phone Number [facility] [address] [place] [address] * (ABNORMAL) POCT glucose meter (05/27/2025 12:23 PM EST) POCT Glucose 202(H) 74 - 99 mg/dL 05/27/2025 12:25 PM EST [facility] Comment:Accuracy of a glucos e result obtained from a capillary whole blood specimen relies upon adequate, non-compromised capillary blood flow. If the capillary glucose result is not consistent with the patient's clinical signs and symptoms, glucose testing should be repeated with either an arterial or venous sample on the glucometer or sent to the main labortory for testing. Comment 05/27/2025 12:25 PM EST [facility] Livestock Commission Agent ID Amparo Mccullough 05/27/2025 12:25 PM EST [facility] Device ID [id number] 05/27/2025 12:25 PM EST [facility] Specimen Type POC Capillary 05/27/2025 12:25 PM EST [facility] Blood Capillary blood specimen / Unknown 05/27/2025 12:23 PM EST 05/27/2025 12:25 PM EST us Lokesh Anderson MD LAB POINT OF CARE TE ST DOCKED DEVICE UNSOLICITED RESULTS Final Result Performing Organization Address City/[facility]/ZIP Co de Phone Number [facility] [address] [place] [address] * Type and Screen (05/27/2025 11:33 AM EST) ABO/Rh O Positive 05/27/2025 12:07 PM EST [facility] Antibody Screen Negative 05/27/2025 12:07 PM EST [facility] Specimen Expiration 05/30/2025 23:59 05/27/2025 12:07 PM EST [facility] Blood Venous blood specimen / Unknown Venipuncture / Unknown 05/27/2025 11:33 AM EST 05/27/2025 12:07 PM EST [facility] [place] [facility] BLOOD BANK TEST ORDERABLES F inal Result B[facility] BANK [address] [place] [address], [place] * XR Chest 1 View (05/27/2025 5:27 AM EST) Anatomical Region Laterality Modality Chest Digital Radiogra phy Impressions 05/27/2025 9:58 AM EST Stable exam. CRITICAL RESULT: No. COMMUNICATION: Per this written report. By electronically signing this report, I, the attending physician, attest that I have personally reviewed the images/data for the above examination(s) and agree with the final edited report. Drafted by Basilio Coats MD on 05/27/2025 9:04 AM Final report signed by Shady Scott MD on 05/27/2025 9:58 AM Narrative 05/27/2025 9:58 AM EST CLINICAL INDICATION: left pleural effusion TECHNIQUE: Single AP view of chest. COMPARISON: Chest radiograph 05/26/2025. FINDINGS: Stable position of the right upper extremity PICC and left-sided chest tube. Mediastinal and cardiac silhouette are stable. Unchanged large left pleural effusion. No focal airspace consolidation or pneumothorax. Procedure Note Shady Scott MD - 05/27/2025 CLINICAL INDICATION: left pleural effusion TECHNIQUE: Single AP view of chest. COMPARISON: Chest radiograph 05/26/2025. FINDINGS: Stable position of the right upper extremity PICC and left-sided chesttube. Mediastinal and cardiac silhouette are stable. Unchanged large leftpleural effusion. No focal airspace consolidation or pneumothorax. IMPRESSION: Stable exam. CRITICAL RESULT: No. COMMUNICATION: Per this written report. By electronically signing this report, I, the attending physician, attestthat I have personally reviewed the images/data for the aboveexamination(s) and agree with the final edited report. Drafted by Basilio Coats MD on 05/27/2025 9:04 AM Final report signed by Shady Scott MD on 05/27/2025 9:58 AM Lokesh Anderson MD IMG XR PROCEDURES Final Result * (ABNORMAL) Comprehensive Metabolic Panel, Plasma (05/27/2025 4:52 AM EST) Glucose, Plasma 154(H) 74 - 99 mg/dL 05/27/2025 5:52 AM EST [facility] BUN, Plasma 12 8 - 23 mg/dL 05/27/2025 5:52 AM EST [facility] Creatinine, Plasma 0.46(L) 0.60 - 1.10 mg/dL 05/27/2025 5:52 AM EST [facility] BUN/Creatinine Ratio 26 05/27/2025 5:52 AM EST [facility] Sodium, Plasma 135(L) 136 - 145 mmol/L 05/27/2025 5:52 AM EST [facility] Potassium, Plasma 4.2 3.6 - 4.9 mmol/L 05/27/2025 5:52 AM EST [facility] Chloride, Plasma 103 97 - 107 mmol/L 05/27/2025 5:52 AM EST [facility] CO2, Plasma 23 22 - 29 mmol/L 05/27/2025 5:52 AM EST [facility] Anion Gap 9 6 - 16 mmol/L 05/27/2025 5:52 AM EST [facility] Total Calcium, Plasma 8.0(L) 8.9 - 10.2 mg/dL 05/27/2025 5:52 AM EST [facility] Total Protein 6.4 6.3 - 7.9 g/dL 05/27/2025 5:52 AM EST [facility] Albumin, Plasma 2.1(L) 3.5 - 5.2 g/dL 05/27/2025 5:52 AM EST [facility] AST, Plasma 15 10 - 35 U/L 05/27/2025 5:52 AM EST [facility] ALT, Plasma 12 10 - 35 U/L 05/27/2025 5:52 AM EST [facility] Alkaline Phosphatase, Plasma 83 46 - 142 U/L 05/27/2025 5:52 AM EST [facility] Total Bilirubin, Plasma 0.5 0.2 - 1.1 mg/dL 05/27/2025 5:52 AM EST [facility] eGFRcr 102.5 mL/min/1.7 3m*2 05/27/2025 5:52 AM EST [facility] Comment:Reported eGFRcr in m L/min/1.73m2 is based the CKD-EPI 2020 equation that does not use a race coefficient. Blood Venous blood specimen / Unknown Venipuncture / Unknown 05/27/2025 4:52 AM EST 05/27/2025 5:22 AM EST us Lokesh Anderson MD LAB BLOOD ORDERABLES Final Resul t Performing Organization Address City/[facility] Co de Phone Number [facility] [address] [place] [address] * Phosphorus, Plasma (05/27/2025 4:52 AM EST) Phosphorus, Plasma 3.3 2.5 - 4.5 mg/dL 05/27/2025 5:52 AM EST [facility] Blood Venous blood specimen / Unknown Venipuncture / Unknown 05/27/2025 4:52 AM EST 05/27/2025 5:22 AM EST us Lokesh Anderson MD LAB BLOOD ORDERABLES Final Resul t [facility] [address] [place] [address] * Magnesium, Plasma (05/27/2025 4:52 AM EST) Magnesium, Plasma 2.0 1.9 - 2.4 mg/dL 05/27/2025 5:52 AM EST [facility] Blood Venous blood specimen / Unknown Venipuncture / Unknown 05/27/2025 4:52 AM EST 05/27/2025 5:22 AM EST us Lokesh Anderson MD LAB BLOOD ORDERABLES Final Resul t [facility] [address] [place] [address] * (ABNORMAL) CBC W/O Differential (05/27/2025 4:52 AM EST) WBC Count 14.09(H) 3.70 - 10.30 10*3/uL LAB HEMATOLOGY METHOD 05/27/2025 5:34 AM EST [facility] RBC Count 3.18(L) 3.90 - 5.20 10*6/uL LAB HEMATOLOGY METHOD 05/27/2025 5:34 AM EST [facility] HGB 9.2(L) 11.2 - 15.7 g/dL LAB HEMATOLOGY METHOD 05/27/2025 5:34 AM EST [facility] HCT 28.2(L) 34.0 - 45.0 % LAB HEMATOLOGY METHOD 05/27/2025 5:34 AM EST [facility] Platelet Count 584(H) 155 - 369 10*3/uL LAB HEMATOLOGY METHOD 05/27/2025 5:34 AM EST [facility] MCV 89 79 - 98 fL LAB HEMATOLOGY METHOD 05/27/2025 5:34 AM EST [facility] MCH 28.9 26.0 - 32.0 pg LAB HEMATOLOGY METHOD 05/27/2025 5:34 AM EST [facility] MCHC 32.6 30.7 - 35.5 g/dL LAB HEMATOLOGY METHOD 05/27/2025 5:34 AM EST [facility] RDW 16.7(H) 11.5 - 14.5 % LAB HEMATOLOGY METHOD 05/27/2025 5:34 AM EST [facility] MPV 9.4 8.8 - 12.5 fL LAB HEMATOLOGY METHOD 05/27/2025 5:34 AM EST [facility] nRBC 0.0 <=0.0 per 100 WBCs LAB HEMATOLOGY METHOD 05/27/2025 5:34 AM EST [facility] Blood Venous blood specimen / Unknown Venipuncture / Unknown 05/27/2025 4:52 AM EST 05/27/2025 5:24 AM EST us Lokesh Anderson MD LAB BLOOD ORDERABLES Final Resul t [facility] [address] [place] [address] * (ABNORMAL) POCT glucose meter (05/27/2025 4:51 AM EST) POCT Glucose 159(H) 74 - 99 mg/dL 05/27/2025 4:52 AM EST [facility] Comment:Accuracy of a glucos e result obtained from a capillary whole blood specimen relies upon adequate, non-compromised capillary blood flow. If the capillary glucose result is not consistent with the patient's clinical signs and symptoms, glucose testing should be repeated with either an arterial or venous sample on the glucometer or sent to the main labortory for testing. Comment 05/27/2025 4:52 AM EST [facility] Livestock Commission Agent ID Rylie Valentin 4:52 AM EST [facility] Device ID [id number] 05/27/2025 4:52 AM EST [facility] Specimen Type POC Capillary 05/27/2025 4:52 AM EST [facility] Blood Capillary blood specimen / Unknown 05/27/2025 4:51 AM EST 05/27/2025 4:52 AM EST us Lokesh Anderson MD LAB POINT OF CARE TE ST DOCKED DEVICE UNSOLICITED RESULTS Final Result [facility] [address] [place] [address] * (ABNORMAL) POCT glucose meter (05/27/2025 12:04 AM EST) POCT Glucose 187(H) 74 - 99 mg/dL 05/27/2025 12:06 AM EST [facility] Comment:Accuracy of a glucos e result obtained from a capillary whole blood specimen relies upon adequate, non-compromised capillary blood flow. If the capillary glucose result is not consistent with the patient's clinical signs and symptoms, glucose testing should be repeated with either an arterial or venous sample on the glucometer or sent to the main labortory for testing. Comment 05/27/2025 12:06 AM EST [facility] Livestock Commission Agent ID Matthew Lopez 05/27/20 12:06 AM EST [facility] Device ID [id number] 05/27/2025 12:06 AM EST [facility] Specimen Type POC Capillary 05/27/2025 12:06 AM EST [facility] Blood Capillary blood specimen / Unknown 05/27/2025 12:04 AM EST 05/27/2025 12:06 AM EST us Lokesh Anderson MD LAB POINT OF CARE TE ST DOCKED DEVICE UNSOLICITED RESULTS Final Result Performing Organization Address City/[facility] Co de Phone Number [facility] [address] [place] [address] * (ABNORMAL) POCT glucose meter (05/26/2025 5:56 PM EST) POCT Glucose 141(H) 74 - 99 mg/dL 05/26/2025 5:57 PM EST [facility] Comment:Accuracy of a glucos e result obtained from a capillary whole blood specimen relies upon adequate, non-compromised capillary blood flow. If the capillary glucose result is not consistent with the patient's clinical signs and symptoms, glucose testing should be repeated with either an arterial or venous sample on the glucometer or sent to the main labortory for testing. Comment 05/26/2025 5:57 PM EST [facility] Livestock Commission Agent ID Fannie Cancino 05/26/2025 5:57 PM EST [facility] Device ID [id number] 05/26/2025 5:57 PM EST [facility] Specimen Type POC Capillary 05/26/2025 5:57 PM EST [facility] Blood Capillary blood specimen / Unknown 05/26/2025 5:56 PM EST 05/26/2025 5:57 PM EST us Lokesh Anderson MD LAB POINT OF CARE TE ST DOCKED DEVICE UNSOLICITED RESULTS Final Result Performing Organization Address City/[facility] Co de Phone Number [facility] [address] [place] [address] * (ABNORMAL) POCT glucose meter (05/26/2025 12:02 PM EST) POCT Glucose 172(H) 74 - 99 mg/dL 05/26/2025 12:03 PM EST [facility] Comment:Accuracy of a glucos e result obtained from a capillary whole blood specimen relies upon adequate, non-compromised capillary blood flow. If the capillary glucose result is not consistent with the patient's clinical signs and symptoms, glucose testing should be repeated with either an arterial or venous sample on the glucometer or sent to the main labortory for testing. Comment 05/26/2025 12:03 PM EST [facility] Livestock [employer] Agent ID Fannie Cancino 05/26/2025 12:03 PM EST [facility] Device ID [id number] 05/26/2025 12:03 PM EST [facility] Specimen Type POC Capillary 05/26/2025 12:03 PM EST [facility] Blood Capillary blood specimen / Unknown 05/26/2025 12:02 PM EST 05/26/2025 12:03 PM EST Lokesh Anderson MD LAB POINT OF CARE TE ST DOCKED DEVICE UNSOLICITED RESULTS Final Result Performing Organization Address City/State/[facility] Co de Phone Number [facility] [address] [place] [address] * (ABNORMAL) Comprehensive Metabolic Panel, Plasma (05/26/2025 5:50 AM EST) Glucose, Plasma 170(H) 74 - 99 mg/dL 05/26/2025 6:24 AM EST [facility] BUN, Plasma 12 8 - 23 mg/dL 05/26/2025 6:24 AM EST [facility] Creatinine, Plasma 0.44(L) 0.60 - 1.10 mg/dL 05/26/2025 6:24 AM EST [facility] BUN/Creatinine Ratio 27 05/26/2025 6:24 AM EST [facility] Sodium, Plasma 133(L) 136 - 145 mmol/L 05/26/2025 6:24 AM EST [facility] Potassium, Plasma 4.2 3.6 - 4.9 mmol/L 05/26/2025 6:24 AM EST [facility] Chloride, Plasma 101 97 - 107 mmol/L 05/26/2025 6:24 AM EST [facility] CO2, Plasma 21(L) 22 - 29 mmol/L 05/26/2025 6:24 AM EST [facility] Anion Gap 11 6 - 16 mmol/L 05/26/2025 6:24 AM EST [facility] Total Calcium, Plasma 8.0(L) 8.9 - 10.2 mg/dL 05/26/2025 6:24 AM EST [facility] Total Protein 6.3 6.3 - 7.9 g/dL 05/26/2025 6:24 AM EST [facility] Albumin, Plasma 2.2(L) 3.5 - 5.2 g/dL 05/26/2025 6:24 AM EST [facility] AST, Plasma 22 10 - 35 U/L 05/26/2025 6:24 AM EST [facility] ALT, Plasma 14 10 - 35 U/L 05/26/2025 6:24 AM EST [facility] Alkaline Phosphatase, Plasma 86 46 - 142 U/L 05/26/2025 6:24 AM EST [facility] Total Bilirubin, Plasma 0.5 0.2 - 1.1 mg/dL 05/26/2025 6:24 AM EST [facility] eGFRcr 103.6 mL/min/1.7 3m*2 05/26/2025 6:24 AM EST [facility] Comment:Reported eGFRcr in m L/min/1.73m2 is based the CKD-EPI 2020 equation that does not use a race coefficient. Blood Venous blood specimen / Unknown Venipuncture / Unknown 05/26/2025 5:50 AM EST 05/26/2025 5:56 AM EST us Lokesh Anderson MD LAB BLOOD ORDERABLES Final Resul t [facility] [address] [place] [address] * Phosphorus, Plasma (05/26/2025 5:50 AM EST) Phosphorus, Plasma 3.6 2.5 - 4.5 mg/dL 05/26/2025 6:24 AM EST [facility] Blood Venous blood specimen / Unknown Venipuncture / Unknown 05/26/2025 5:50 AM EST 05/26/2025 5:56 AM EST us Lokesh Anderson MD LAB BLOOD ORDERABLES Final Resul t [facility] [address] [place] [address] * Magnesium, Plasma (05/26/2025 5:50 AM EST) Magnesium, Plasma 1.9 1.9 - 2.4 mg/dL 05/26/2025 6:24 AM EST [facility] Blood Venous blood specimen / Unknown Venipuncture / Unknown 05/26/2025 5:50 AM EST 05/26/2025 5:56 AM EST us Lokesh Anderson MD LAB BLOOD ORDERABLES Final Resul t Performing Organization Address City/[facility]/ZIP Co de Phone Number [facility] [address] [place] [address] * (ABNORMAL) CBC W/O Differential (05/26/2025 5:50 AM EST) WBC Count 15.57(H) 3.70 - 10.30 10*3/uL LAB HEMATOLOGY METHOD 05/26/2025 6:06 AM EST [facility] RBC Count 3.36(L) 3.90 - 5.20 10*6/uL LAB HEMATOLOGY METHOD 05/26/2025 6:06 AM EST [facility] HGB 9.7(L) 11.2 - 15.7 g/dL LAB HEMATOLOGY METHOD 05/26/2025 6:06 AM EST [facility] HCT 29.7(L) 34.0 - 45.0 % LAB HEMATOLOGY METHOD 05/26/2025 6:06 AM EST [facility] Platelet Count 586(H) 155 - 369 10*3/uL LAB HEMATOLOGY METHOD 05/26/2025 6:06 AM EST [facility] MCV 88 79 - 98 fL LAB HEMATOLOGY METHOD 05/26/2025 6:06 AM EST [facility] MCH 28.9 26.0 - 32.0 pg LAB HEMATOLOGY METHOD 05/26/2025 6:06 AM EST [facility] MCHC 32.7 30.7 - 35.5 g/dL LAB HEMATOLOGY METHOD 05/26/2025 6:06 AM EST [facility] RDW 16.7(H) 11.5 - 14.5 % LAB HEMATOLOGY METHOD 05/26/2025 6:06 AM EST [facility] MPV 9.5 8.8 - 12.5 fL LAB HEMATOLOGY METHOD 05/26/2025 6:06 AM EST [facility] nRBC 0.0 <=0.0 per 100 WBCs LAB HEMATOLOGY METHOD 05/26/2025 6:06 AM EST [facility] Blood Venous blood specimen / Unknown Venipuncture / Unknown 05/26/2025 5:50 AM EST 05/26/2025 5:56 AM EST us Lokesh Anderson MD LAB BLOOD ORDERABLES Final Resul t Performing Organization Address City/State/[facility] Co de Phone Number [facility] [address] [place] [address] * (ABNORMAL) POCT glucose meter (05/26/2025 5:47 AM EST) POCT Glucose 170(H) 74 - 99 mg/dL 05/26/2025 5:50 AM EST [facility] Comment:Accuracy of a glucos e result obtained from a capillary whole blood specimen relies upon adequate, non-compromised capillary blood flow. If the capillary glucose result is not consistent with the patient's clinical signs and symptoms, glucose testing should be repeated with either an arterial or venous sample on the glucometer or sent to the main labortory for testing. Comment 05/26/2025 5:50 AM EST [facility] [employer] Agent ID Rylie Valentin 5:50 AM EST [facility] Device ID [id number] 05/26/2025 5:50 AM EST [facility] Specimen Type POC Capillary 05/26/2025 5:50 AM EST [facility] Blood Capillary blood specimen / Unknown 05/26/2025 5:47 AM EST 05/26/2025 5:50 AM EST us Lokesh Anderson MD LAB POINT OF CARE TE ST DOCKED DEVICE UNSOLICITED RESULTS Final Result [facility] [address] [place] [address] * XR Chest 1 View (05/26/2025 2:19 AM EST) Anatomical Region Laterality Modality Chest Digital Radiogra phy Impressions 05/26/2025 9:50 AM EST Slight interval increase in size of large left pleural effusion. CRITICAL RESULT: No. COMMUNICATION: Per this written report. By electronically signing this report, I, the attending physician, attest that I have personally reviewed the images/data for the above examination(s) and agree with the final edited report. Drafted by Abril Foreman DO on 05/26/2025 8:40 AM Final report signed by Shady Scott MD on 05/26/2025 9:50 AM Narrative 05/26/2025 9:50 AM EST CLINICAL INDICATION: left pleural effusion TECHNIQUE: XR CHEST 1 VIEW COMPARISON: May 25, 2025 FINDINGS: Stable support hardware. Slight interval increase in large left pleural effusion. No airspace consolidation. Cardiac silhouette and mediastinal contours are stable. No pneumothorax. Procedure Note Shady Scott MD - 05/26/2025 CLINICAL INDICATION: left pleural effusion TECHNIQUE: XR CHEST 1 VIEW COMPARISON: May 25, 2025 FINDINGS: Stable support hardware. Slight interval increase in large left pleuraleffusion. No airspace consolidation. Cardiac silhouette and mediastinalcontours are stable. No pneumothorax. IMPRESSION: Slight interval increase in size of large left pleural effusion. CRITICAL RESULT: No. COMMUNICATION: Per this written report. By electronically signing this report, I, the attending physician, attestthat I have personally reviewed the images/data for the aboveexamination(s) and agree with the final edited report. Drafted by Abril Foreman DO on 05/26/2025 8:40 AM Final report signed by Shady Scott MD on 05/26/2025 9:50 AM Lokesh Anderson MD IMG XR PROCEDURES Final Result * (ABNORMAL) POCT glucose meter (05/25/2025 11:56 PM EST) POCT Glucose 153(H) 74 - 99 mg/dL 05/25/2025 11:58 PM EST [facility] Comment:Accuracy of a glucos e result obtained from a capillary whole blood specimen relies upon adequate, non-compromised capillary blood flow. If the capillary glucose result is not consistent with the patient's clinical signs and symptoms, glucose testing should be repeated with either an arterial or venous sample on the glucometer or sent to the main labortory for testing. Comment 05/25/2025 11:58 PM EST [facility] Liv[employer] Agent ID Sandy Massey 05/25/2025 11:58 PM EST [facility] Device ID [id number] 05/25/2025 11:58 PM EST [facility] Specimen Type POC Capillary 05/25/2025 11:58 PM EST [facility] Blood Capillary blood specimen / Unknown 05/25/2025 11:56 PM EST 05/25/2025 11:58 PM EST Lokesh Anderson MD LAB POINT OF CARE TE ST DOCKED DEVICE UNSOLICITED RESULTS Final Result Performing Organization Address City/State/[facility] Co de Phone Number [facility] [address] [place] [address] * (ABNORMAL) POCT glucose meter (05/25/2025 5:50 PM EST) Pathologist [facility] POCT Glucose 218(H) 74 - 99 mg/dL 05/25/2025 5:52 PM EST [facility] Comment:Accuracy of a glucos e result obtained from a capillary whole blood specimen relies upon adequate, non-compromised capillary blood flow. If the capillary glucose result is not consistent with the patient's clinical signs and symptoms, glucose testing should be repeated with either an arterial or venous sample on the glucometer or sent to the main labortory for testing. Comment 05/25/2025 5:52 PM EST [facility] Liv[employer] Agent ID Brielle Coronel 5:52 PM EST [facility] Device ID [id number] 05/25/2025 5:52 PM EST [facility] Specimen Type POC Capillary 05/25/2025 5:52 PM EST [facility] Blood Capillary blood specimen / Unknown 05/25/2025 5:50 PM EST 05/25/2025 5:52 PM EST Lokesh Anderson MD LAB POINT OF CARE TE ST DOCKED DEVICE UNSOLICITED RESULTS Final Result [facility] [address] [place] [address] * XR Chest 1 View (05/25/2025 1:36 PM EST) Anatomical Region Laterality Modality Chest Digital Radiogra phy Impressions 05/25/2025 2:48 PM EST Decreased volume of left pleural effusion. CRITICAL RESULT: No. COMMUNICATION: Per this written report Drafted by Heriberto Ivy MD on 05/25/2025 2:47 PM Final report signed by Heriberto Ivy MD on 05/25/2025 2:48 PM Narrative 05/25/2025 2:48 PM EST CLINICAL INDICATION: s/p chest tube placement TECHNIQUE: XR CHEST 1 VIEW COMPARISON: 6 hours prior FINDINGS: Redemonstration of a large left pleural effusion, slightly decreased from comparison with removal of the small bowel pleural catheter and placement of a large-bore chest tube with some redundancy at the left lung base. Small volume of left-sided pleural air. Right PICC tip at the superior cavoatrial junction. Procedure Note Heriberto Ivy MD - 05/25/2025 CLINICAL INDICATION: s/p chest tube placement TECHNIQUE: XR CHEST 1 VIEW COMPARISON: 6 hours prior FINDINGS: Redemonstration of a large left pleural effusion, slightly decreased fromcomparison with removal of the small bowel pleural catheter and placementof a large-bore chest tube with some redundancy at the left lung base.Small volume of left-sided pleural air. Right PICC tip at the superiorcavoatrial junction. IMPRESSION: Decreased volume of left pleural effusion. CRITICAL RESULT: No. COMMUNICATION: Per this written report Drafted by Heriberto Ivy MD on 05/25/2025 2:47 PM Final report signed by Heriberto Ivy MD on 05/25/2025 2:48 PM us Lokesh Anderson MD IMG XR PROCEDURES Final Result * (ABNORMAL) POCT glucose meter (05/25/2025 12:42 PM EST) POCT Glucose 190(H) 74 - 99 mg/dL 05/25/2025 12:44 PM EST [facility] Comment:Accuracy of a glucos e result obtained from a capillary whole blood specimen relies upon adequate, non-compromised capillary blood flow. If the capillary glucose result is not consistent with the patient's clinical signs and symptoms, glucose testing should be repeated with either an arterial or venous sample on the glucometer or sent to the main labortory for testing. Comment 05/25/2025 12:44 PM EST [facility] Liv[employer] Agent ID Brielle Coronel 12:44 PM EST [facility] Device ID [id number] 05/25/2025 12:44 PM EST [facility] Specimen Type POC Capillary 05/25/2025 12:44 PM EST [facility] Blood Capillary blood specimen / Unknown 05/25/2025 12:42 PM EST 05/25/2025 12:44 PM EST Lokesh Anderson MD LAB POINT OF CARE TE ST DOCKED DEVICE UNSOLICITED RESULTS Final Result [facility] [address] [place] [address] * [place] TUBE THORACOSTOMY INCLUDES WATER SEAL, HC TUBE THORACOSTOMY INCLUDES WATER SEAL (05/25/2025 12:40 PM EST) Narrative Dylon Griggs MD - 05/25/2025 12:40 PM EST Dylon Griggs MD 05/26/2025 10:38 AM Chest Tube Insertion Performed by: Mendez Ceja DO Authorized by: Lokesh Anderson MD Consent: Consent obtained: Written Consent given by: Patient Risks, benefits, and alternatives were discussed: yes Risks discussed: Bleeding, damage to surrounding structures, infection, incomplete drainage, nerve damage and pain Alternatives discussed: No treatment, delayed treatment, alternative treatment and observation [place] protocol: Procedure explained and questions answered to patient or proxy's satisfaction: yes Relevant documents present and verified: yes Test results available: yes Imaging studies available: yes Required blood products, implants, devices, and special equipment available: yes Site/side marked: yes Immediately prior to procedure, a time out was called: yes Patient identity confirmed: Hospital-assigned identification number, verbally with patient and arm band Attending Supervision?: no Pre-procedure details: Skin preparation: Chlorhexidine Antibiotic: none Sedation: Sedation type: Anxiolysis Anesthesia: Anesthesia method: Local infiltration Local anesthetic: Lidocaine 1% w/o epi Procedure details: Approach: Open Placement location: L lateral Scalpel size: 10 Tube size (Fr): 28 Dilation Performed: no Dissection instrument: Finger and Tierney clamp Ultrasound guidance: no Tension pneumothorax: no Tube connected to: Suction Drainage characteristics: Serosanguinous Suture material: 0 silk Dressinx4 sterile gauze Post-procedure details: Procedure completion: Tolerated with difficulty Comments: Awaiting post placement CXR us Lokesh Anderson MD IN CLINIC/BEDSIDE ORDERABLES Fin al Result * Amylase, Drain Fluid (05/25/2025 12:37 PM EST) Amylase, Drain Fluid 18 U/L 05/25/2025 1:27 PM EST [facility] Fluid Drainage fluid specimen / Unknown 05/25/2025 12:37 PM EST 05/25/2025 12:59 PM EST Narrative [facility] - 05/25/2025 1:27 PM EST Reference Values: No established reference interval. Interpret with caution. This test was developed and its performance characteristics determined by [facility]. The U.S. Food and Drug Administration has not approved or cleared this test; however, FDA clearance or approval is not currently required for clinical use. The results are not intended to be used as the sole means for clinical diagnosis or patient management decisions. Drain Fluid: Drain fluid amylase activity that is greater than three times a corresponding serum/plasma level is a predictive risk factor for postoperative pancreatic fistula. Note: Interpretive information was assimilated from a literature search (e.g., studies, guidelines, textbooks) related to body fluid testing. Information should be interpreted with caution because the literature sources cross many decades, analyzers and reagent formulations. All information should be viewed in the context of the patient's clinical presentation. Body fluid amylase should not be used as sole evidence of malignancy for diagnostic purposes and should be reviewed in correlation with cytology, plasma/serum results, and other clinical evidence. us Lokesh Anderson MD LAB BODY FLUIDS AND STOOLS ORDER FARSHAD Final Result [facility] [address] [place] [address] * Lipase, body fluid (05/25/2025 12:37 PM EST) [facility] Lipase, Fluid Result 14 U/L 05/28/2025 12:44 AM EST [facility] Lipase Fluid Type Pleural fluid 05/28/2025 12:44 AM EST [facility] ([facility]) Pleural Fluid Non-blood Collection / Unknown 05/25/2025 12:37 PM EST 05/25/2025 12:59 PM EST Narrative [facility] ([facility]) - 05/28/2025 12:44 AM EST Left chest tube INTERPRETIVE INFORMATION: Lipase, Fluid For information on body fluid reference ranges and/or interpretive guidance visit [email or web address]/ This test was developed and its performance characteristics determined by [facility]. It has not been cleared or approved by the US Food and Drug Administration. This test was performed in a CLIA certified laboratory and is intended for clinical purposes. Performed By: [facility] [address] [place] [address] Concaving Machine Operator: Margarito Barlow MD, PhD CLIA Number: [id number] Lokesh Anderson MD LAB REF LAB BLOOD AND FLUID ORD Final Result Performing Organization Address City/[facility] Co de Phone Number [facility] ([facility] [address] [place] [address] * (ABNORMAL) POCT glucose meter (05/25/2025 11:32 AM EST) [facility] POCT Glucose 174(H) 74 - 99 mg/dL 05/25/2025 11:34 AM EST [facility] Comment:Accuracy of a glucos e result obtained from a capillary whole blood specimen relies upon adequate, non-compromised capillary blood flow. If the capillary glucose result is not consistent with the patient's clinical signs and symptoms, glucose testing should be repeated with either an arterial or venous sample on the glucometer or sent to the main labortory for testing. Comment 05/25/2025 11:34 AM EST [facility] Liv[employer] Commission Agent ID CoronelBrielle 11:34 AM EST [facility] Device ID [id number] 05/25/2025 11:34 AM EST [facility] Specimen Type POC Capillary 05/25/2025 11:34 AM EST [facility] Blood Capillary blood specimen / Unknown 05/25/2025 11:32 AM EST 05/25/2025 11:34 AM EST Lokesh Anderson MD LAB POINT OF CARE TE ST DOCKED DEVICE UNSOLICITED RESULTS Final Result [facility] [address] [place] [id number] * XR Chest 1 View (05/25/2025 6:47 AM EST) Anatomical Region Laterality Modality Chest Digital Radiogra phy Impressions 05/25/2025 8:27 AM EST Stable exam. CRITICAL RESULT: No. COMMUNICATION: Per this written report. By electronically signing this report, I, the attending physician, attest that I have personally reviewed the images/data for the above examination(s) and agree with the final edited report. Drafted by Giovanni Cm MD on 05/25/2025 7:44 AM Final report signed by Heriberto Ivy MD on 05/25/2025 8:27 AM Narrative 05/25/2025 8:27 AM EST CLINICAL INDICATION: Chest tube, left effusion TECHNIQUE: XR CHEST 1 VIEW COMPARISON: 05/24/2025 FINDINGS: Stable right-sided PICC and left pleural pigtail drainage catheter. Persistent large left pleural effusion with adjacent lingular/left lower lobe collapse. No pneumothorax. Normal sized, partially obscured cardiac silhouette. Procedure Note Heriberto Ivy MD - 05/25/2025 CLINICAL INDICATION: Chest tube, left effusion TECHNIQUE: XR CHEST 1 VIEW COMPARISON: 05/24/2025 FINDINGS: Stable right-sided PICC and left pleural pigtail drainage catheter.Persistent large left pleural effusion with adjacent lingular/left lowerlobe collapse. No pneumothorax. Normal sized, partially obscured cardiacsilhouette. IMPRESSION: Stable exam. CRITICAL RESULT: No. COMMUNICATION: Per this written report. By electronically signing this report, I, the attending physician, attestthat I have personally reviewed the images/data for the aboveexamination(s) and agree with the final edited report. Drafted by Giovanni Cm MD on 05/25/2025 7:44 AM Final report signed by Heriberto Ivy MD on 05/25/2025 8:27 AM us Lokesh Anderson MD IMG XR PROCEDURES Final Result * (ABNORMAL) Comprehensive Metabolic Panel, Plasma (05/25/2025 5:07 AM EST) Glucose, Plasma 151(H) 74 - 99 mg/dL 05/25/2025 5:44 AM EST [facility] BUN, Plasma 12 8 - 23 mg/dL 05/25/2025 5:44 AM EST [facility] Creatinine, Plasma 0.42(L) 0.60 - 1.10 mg/dL 05/25/2025 5:44 AM EST [facility] BUN/Creatinine Ratio 29 05/25/2025 5:44 AM EST [facility] Sodium, Plasma 135(L) 136 - 145 mmol/L 05/25/2025 5:44 AM EST [facility] Potassium, Plasma 4.2 3.6 - 4.9 mmol/L 05/25/2025 5:44 AM EST [facility] Chloride, Plasma 104 97 - 107 mmol/L 05/25/2025 5:44 AM EST [facility] CO2, Plasma 22 22 - 29 mmol/L 05/25/2025 5:44 AM EST [facility] Anion Gap 9 6 - 16 mmol/L 05/25/2025 5:44 AM EST [facility] Total Calcium, Plasma 8.0(L) 8.9 - 10.2 mg/dL 05/25/2025 5:44 AM EST [facility] Total Protein 6.2(L) 6.3 - 7.9 g/dL 05/25/2025 5:44 AM EST [facility] Albumin, Plasma 2.4(L) 3.5 - 5.2 g/dL 05/25/2025 5:44 AM EST [facility] AST, Plasma 20 10 - 35 U/L 05/25/2025 5:44 AM EST [facility] ALT, Plasma 13 10 - 35 U/L 05/25/2025 5:44 AM EST [facility] Alkaline Phosphatase, Plasma 89 46 - 142 U/L 05/25/2025 5:44 AM EST [facility] Total Bilirubin, Plasma 0.4 0.2 - 1.1 mg/dL 05/25/2025 5:44 AM EST [facility] eGFRcr 104.7 mL/min/1.7 3m*2 05/25/2025 5:44 AM EST [facility] Comment:Reported eGFRcr in m L/min/1.73m2 is based the CKD-EPI 2020 equation that does not use a race coefficient. Blood Venous blood specimen / Unknown Venipuncture / Unknown 05/25/2025 5:07 AM EST 05/25/2025 5:15 AM EST us Lokesh Anderson MD LAB BLOOD ORDERABLES Final Resul t Performing Organization Address City/[facility]/ZIP Co de Phone Number [facility] [address] [place] [address] * Phosphorus, Plasma (05/25/2025 5:07 AM EST) Phosphorus, Plasma 2.7 2.5 - 4.5 mg/dL 05/25/2025 5:44 AM EST [facility] Blood Venous blood specimen / Unknown Venipuncture / Unknown 05/25/2025 5:07 AM EST 05/25/2025 5:15 AM EST us Lokesh Anderson MD LAB BLOOD ORDERABLES Final Resul t [facility] [address] [place] [address] * Magnesium, Plasma (05/25/2025 5:07 AM EST) Magnesium, Plasma 1.9 1.9 - 2.4 mg/dL 05/25/2025 5:44 AM EST [facility] Blood Venous blood specimen / Unknown Venipuncture / Unknown 05/25/2025 5:07 AM EST 05/25/2025 5:15 AM EST us Lokesh Anderson MD LAB BLOOD ORDERABLES Final Resul t [facility] [address] [place] [address] * (ABNORMAL) CBC W/O Differential (05/25/2025 5:07 AM EST) WBC Count 15.22(H) 3.70 - 10.30 10*3/uL LAB HEMATOLOGY METHOD 05/25/2025 5:27 AM EST [facility] RBC Count 3.43(L) 3.90 - 5.20 10*6/uL LAB HEMATOLOGY METHOD 05/25/2025 5:27 AM EST [facility] HGB 10.0(L) 11.2 - 15.7 g/dL LAB HEMATOLOGY METHOD 05/25/2025 5:27 AM EST [facility] HCT 30.2(L) 34.0 - 45.0 % LAB HEMATOLOGY METHOD 05/25/2025 5:27 AM EST [facility] Platelet Count 538(H) 155 - 369 10*3/uL LAB HEMATOLOGY METHOD 05/25/2025 5:27 AM EST [facility] MCV 88 79 - 98 fL LAB HEMATOLOGY METHOD 05/25/2025 5:27 AM EST [facility] MCH 29.2 26.0 - 32.0 pg LAB HEMATOLOGY METHOD 05/25/2025 5:27 AM EST [facility] MCHC 33.1 30.7 - 35.5 g/dL LAB HEMATOLOGY METHOD 05/25/2025 5:27 AM EST [facility] RDW 16.6(H) 11.5 - 14.5 % LAB HEMATOLOGY METHOD 05/25/2025 5:27 AM EST [facility] MPV 9.4 8.8 - 12.5 fL LAB HEMATOLOGY METHOD 05/25/2025 5:27 AM EST [facility] nRBC 0.0 <=0.0 per 100 WBCs LAB HEMATOLOGY METHOD 05/25/2025 5:27 AM EST [facility] Blood Venous blood specimen / Unknown Venipuncture / Unknown 05/25/2025 5:07 AM EST 05/25/2025 5:15 AM EST us Lokesh Anderson MD LAB BLOOD ORDERABLES Final Resul t Performing Organization Address City/[facility]/ZIP Co de Phone Number [facility] [address] [place] [address] * (ABNORMAL) POCT glucose meter (05/25/2025 5:04 AM EST) POCT Glucose 147(H) 74 - 99 mg/dL 05/25/2025 5:06 AM EST [facility] Comment:Accuracy of a glucos e result obtained from a capillary whole blood specimen relies upon adequate, non-compromised capillary blood flow. If the capillary glucose result is not consistent with the patient's clinical signs and symptoms, glucose testing should be repeated with either an arterial or venous sample on the glucometer or sent to the main labortory for testing. Comment 05/25/2025 5:06 AM EST [facility] Liv[employer] Agent ID Katlyn Amin 05/25/2025 5:06 AM EST [facility] Device ID [id number] 05/25/2025 5:06 AM EST [facility] Specimen Type POC Capillary 05/25/2025 5:06 AM EST [facility] Blood Capillary blood specimen / Unknown 05/25/2025 5:04 AM EST 05/25/2025 5:06 AM EST us Lokesh Anderson MD LAB POINT OF CARE TE ST DOCKED DEVICE UNSOLICITED RESULTS Final Result Performing Organization Address City/[facility] Co de Phone Number [facility] [address] [place] [address] * (ABNORMAL) POCT glucose meter (05/24/2025 11:11 PM EST) POCT Glucose 203(H) 74 - 99 mg/dL 05/24/2025 11:25 PM EST [facility] Comment:Accuracy of a glucos e result obtained from a capillary whole blood specimen relies upon adequate, non-compromised capillary blood flow. If the capillary glucose result is not consistent with the patient's clinical signs and symptoms, glucose testing should be repeated with either an arterial or venous sample on the glucometer or sent to the main labortory for testing. Comment 05/24/2025 11:25 PM EST [facility] Liv[employer] Agent ID Katlyn Amin 05/24/2025 11:25 PM EST [facility] Device ID [id number] 05/24/2025 11:25 PM EST [facility] Specimen Type POC Capillary 05/24/2025 11:25 PM EST [facility] Blood Capillary blood specimen / Unknown 05/24/2025 11:11 PM EST 05/24/2025 11:25 PM EST us Lokesh Anderson MD LAB POINT OF CARE TE ST DOCKED DEVICE UNSOLICITED RESULTS Final Result Performing Organization Address City/[facility] Co de Phone Number [facility] [address] [place] [address] * (ABNORMAL) POCT glucose meter (05/24/2025 6:06 PM EST) POCT Glucose 180(H) 74 - 99 mg/dL 05/24/2025 6:08 PM EST [facility] Comment:Accuracy of a glucos e result obtained from a capillary whole blood specimen relies upon adequate, non-compromised capillary blood flow. If the capillary glucose result is not consistent with the patient's clinical signs and symptoms, glucose testing should be repeated with either an arterial or venous sample on the glucometer or sent to the main labortory for testing. Comment 05/24/2025 6:08 PM EST [facility] [employer] Agent ID Brielle Coronel 6:08 PM EST [facility] Device ID [id number] 05/24/2025 6:08 PM EST [facility] Specimen Type POC Capillary 05/24/2025 6:08 PM EST [facility] Blood Capillary blood specimen / Unknown 05/24/2025 6:06 PM EST 05/24/2025 6:08 PM EST us Lokesh Anderson MD LAB POINT OF CARE TE ST DOCKED DEVICE UNSOLICITED RESULTS Final Result [facility] [address] [place] [address] * (ABNORMAL) POCT glucose meter (05/24/2025 11:20 AM EST) POCT Glucose 198(H) 74 - 99 mg/dL 05/24/2025 11:21 AM EST [facility] Comment:Accuracy of a glucos e result obtained from a capillary whole blood specimen relies upon adequate, non-compromised capillary blood flow. If the capillary glucose result is not consistent with the patient's clinical signs and symptoms, glucose testing should be repeated with either an arterial or venous sample on the glucometer or sent to the main labortory for testing. Comment 05/24/2025 11:21 AM EST [facility] [employer] Agent ID Brielle Coronel 11:21 AM EST [facility] Device ID [id number] 05/24/2025 11:21 AM EST [facility] Specimen Type POC Capillary 05/24/2025 11:21 AM EST [facility] Blood Capillary blood specimen / Unknown 05/24/2025 11:20 AM EST 05/24/2025 11:21 AM EST Lokesh Anderson MD LAB POINT OF CARE TE ST DOCKED DEVICE UNSOLICITED RESULTS Final Result Performing Organization Address City/State/[facility] Co de Phone Number [facility] [address] [place] [address] * (ABNORMAL) POCT glucose meter (05/24/2025 7:34 AM EST) [facility] POCT Glucose 154(H) 74 - 99 mg/dL 05/24/2025 7:35 AM EST [facility] Comment:Accuracy of a glucos e result obtained from a capillary whole blood specimen relies upon adequate, non-compromised capillary blood flow. If the capillary glucose result is not consistent with the patient's clinical signs and symptoms, glucose testing should be repeated with either an arterial or venous sample on the glucometer or sent to the main labortory for testing. Comment 05/24/2025 7:35 AM EST [facility] [employer] Agent ID Jigar Anderson 7:35 AM EST [facility] Device ID [id number] 05/24/2025 7:35 AM EST [facility] Specimen Type POC Capillary 05/24/2025 7:35 AM EST [facility] Blood Capillary blood specimen / Unknown 05/24/2025 7:34 AM EST 05/24/2025 7:35 AM EST us Lokesh Anderson MD LAB POINT OF CARE TE ST DOCKED DEVICE UNSOLICITED RESULTS Final Result [facility] [address] [place] [id number] * (ABNORMAL) Comprehensive Metabolic Panel, Plasma (05/24/2025 4:58 AM EST) Glucose, Plasma 167(H) 74 - 99 mg/dL 05/24/2025 5:37 AM EST [facility] BUN, Plasma 12 8 - 23 mg/dL 05/24/2025 5:37 AM EST [facility] Creatinine, Plasma 0.45(L) 0.60 - 1.10 mg/dL 05/24/2025 5:37 AM EST [facility] BUN/Creatinine Ratio 27 05/24/2025 5:37 AM EST [facility] Sodium, Plasma 137 136 - 145 mmol/L 05/24/2025 5:37 AM EST [facility] Potassium, Plasma 4.4 3.6 - 4.9 mmol/L 05/24/2025 5:37 AM EST [facility] Chloride, Plasma 105 97 - 107 mmol/L 05/24/2025 5:37 AM EST [facility] CO2, Plasma 22 22 - 29 mmol/L 05/24/2025 5:37 AM EST [facility] Anion Gap 10 6 - 16 mmol/L 05/24/2025 5:37 AM EST [facility] Total Calcium, Plasma 7.7(L) 8.9 - 10.2 mg/dL 05/24/2025 5:37 AM EST [facility] Total Protein 6.1(L) 6.3 - 7.9 g/dL 05/24/2025 5:37 AM EST [facility] Albumin, Plasma 2.2(L) 3.5 - 5.2 g/dL 05/24/2025 5:37 AM EST [facility] AST, Plasma 22 10 - 35 U/L 05/24/2025 5:37 AM EST [facility] Comment:Hemolyzed, result ma y be falsely increased. ALT, Plasma 10 10 - 35 U/L 05/24/2025 5:37 AM EST [facility] Alkaline Phosphatase, Plasma 84 46 - 142 U/L 05/24/2025 5:37 AM EST [facility] Total Bilirubin, Plasma 0.3 0.2 - 1.1 mg/dL 05/24/2025 5:37 AM EST [facility] eGFRcr 103.0 mL/min/1.7 3m*2 05/24/2025 5:37 AM EST [facility] Comment:Reported eGFRcr in m L/min/1.73m2 is based the CKD-EPI 2020 equation that does not use a race coefficient. Blood Venous blood specimen / Unknown Venipuncture / Unknown 05/24/2025 4:58 AM EST 05/24/2025 5:07 AM EST us Lokesh Adnerson MD LAB BLOOD ORDERABLES Final Resul t Performing Organization Address City/[facility] Co de Phone Number [facility] [address] [place] [address] * Phosphorus, Plasma (05/24/2025 4:58 AM EST) Phosphorus, Plasma 2.8 2.5 - 4.5 mg/dL 05/24/2025 5:37 AM EST [facility] Blood Venous blood specimen / Unknown Venipuncture / Unknown 05/24/2025 4:58 AM EST 05/24/2025 5:07 AM EST us Lokesh Anderson MD LAB BLOOD ORDERABLES Final Resul t [facility] [address] [place] [address] * Magnesium, Plasma (05/24/2025 4:58 AM EST) Magnesium, Plasma 1.9 1.9 - 2.4 mg/dL 05/24/2025 5:37 AM EST [facility] Blood Venous blood specimen / Unknown Venipuncture / Unknown 05/24/2025 4:58 AM EST 05/24/2025 5:07 AM EST us Lokesh Anderson MD LAB BLOOD ORDERABLES Final Resul t [facility] [address] [place] [address] * (ABNORMAL) CBC W/O Differential (05/24/2025 4:58 AM EST) WBC Count 13.62(H) 3.70 - 10.30 10*3/uL LAB HEMATOLOGY METHOD 05/24/2025 5:17 AM EST [facility] RBC Count 3.42(L) 3.90 - 5.20 10*6/uL LAB HEMATOLOGY METHOD 05/24/2025 5:17 AM EST [facility] HGB 10.0(L) 11.2 - 15.7 g/dL LAB HEMATOLOGY METHOD 05/24/2025 5:17 AM EST [facility] HCT 30.0(L) 34.0 - 45.0 % LAB HEMATOLOGY METHOD 05/24/2025 5:17 AM EST [facility] Platelet Count 517(H) 155 - 369 10*3/uL LAB HEMATOLOGY METHOD 05/24/2025 5:17 AM EST [facility] MCV 88 79 - 98 fL LAB HEMATOLOGY METHOD 05/24/2025 5:17 AM EST [facility] MCH 29.2 26.0 - 32.0 pg LAB HEMATOLOGY METHOD 05/24/2025 5:17 AM EST [facility] MCHC 33.3 30.7 - 35.5 g/dL LAB HEMATOLOGY METHOD 05/24/2025 5:17 AM EST [facility] RDW 17.0(H) 11.5 - 14.5 % LAB HEMATOLOGY METHOD 05/24/2025 5:17 AM EST [facility] MPV 9.6 8.8 - 12.5 fL LAB HEMATOLOGY METHOD 05/24/2025 5:17 AM EST [facility] nRBC 0.0 <=0.0 per 100 WBCs LAB HEMATOLOGY METHOD 05/24/2025 5:17 AM EST [facility] Blood Venous blood specimen / Unknown Venipuncture / Unknown 05/24/2025 4:58 AM EST 05/24/2025 5:07 AM EST us Lokesh Anderson MD LAB BLOOD ORDERABLES Final Resul t [facility] [address] [place] [address] * (ABNORMAL) POCT glucose meter (05/24/2025 4:55 AM EST) POCT Glucose 159(H) 74 - 99 mg/dL 05/24/2025 4:56 AM EST [facility] Comment:Accuracy of a glucos e result obtained from a capillary whole blood specimen relies upon adequate, non-compromised capillary blood flow. If the capillary glucose result is not consistent with the patient's clinical signs and symptoms, glucose testing should be repeated with either an arterial or venous sample on the glucometer or sent to the main labortory for testing. Comment 05/24/2025 4:56 AM EST [facility] [employer] Agent ID Rylie Valentin 4:56 AM EST [facility] Device ID [id number] 05/24/2025 4:56 AM EST [facility] Specimen Type POC Capillary 05/24/2025 4:56 AM EST [facility] Blood Capillary blood specimen / Unknown 05/24/2025 4:55 AM EST 05/24/2025 4:56 AM EST us Lokesh Anderson MD LAB POINT OF CARE TE ST DOCKED DEVICE UNSOLICITED RESULTS Final Result Performing Organization Address City/[facility]/ZIP Co de Phone Number [facility] [address] [place] [address] * (ABNORMAL) POCT glucose meter (05/24/2025 4:52 AM EST) POCT Glucose 59(L) 74 - 99 mg/dL 05/24/2025 4:54 AM EST [facility] Comment:Accuracy of a glucos e result obtained from a capillary whole blood specimen relies upon adequate, non-compromised capillary blood flow. If the capillary glucose result is not consistent with the patient's clinical signs and symptoms, glucose testing should be repeated with either an arterial or venous sample on the glucometer or sent to the main labortory for testing. Comment 05/24/2025 4:54 AM EST [facility] [employer] Agent ID Rylie Valentin 4:54 AM EST [facility] Device ID [id number] 05/24/2025 4:54 AM EST [facility] Specimen Type POC Capillary 05/24/2025 4:54 AM EST [facility] Blood Capillary blood specimen / Unknown 05/24/2025 4:52 AM EST 05/24/2025 4:54 AM EST Lokesh Anderson MD LAB POINT OF CARE TE ST DOCKED DEVICE UNSOLICITED RESULTS Final Result [facility] [address] [place] [id number] * XR Chest 1 View (05/24/2025 1:28 AM EST) Anatomical Region Laterality Modality Chest Digital Radiogra phy Impressions 05/24/2025 8:33 AM EST Stable exam. CRITICAL RESULT: No. COMMUNICATION: Per this written report. By electronically signing this report, I, the attending physician, attest that I have personally reviewed the images/data for the above examination(s) and agree with the final edited report. Drafted by Giovanni Cm MD on 05/24/2025 7:08 AM Final report signed by Heriberto Ivy MD on 05/24/2025 8:33 AM Narrative 05/24/2025 8:33 AM EST CLINICAL INDICATION: chest tube, eval effusion TECHNIQUE: XR CHEST 1 VIEW COMPARISON: 05/22/2025 FINDINGS: Stable right-sided PICC and left pleural pigtail drainage catheter. Unchanged large left pleural effusion with adjacent lingular/left lower lobe collapse. No pneumothorax. Normal sized, partially obscured cardiac silhouette.. Procedure Note Heriberto Ivy MD - 05/24/2025 CLINICAL INDICATION: chest tube, eval effusion TECHNIQUE: XR CHEST 1 VIEW COMPARISON: 05/22/2025 FINDINGS: Stable right-sided PICC and left pleural pigtail drainage catheter.Unchanged large left pleural effusion with adjacent lingular/left lowerlobe collapse. No pneumothorax. Normal sized, partially obscured cardiacsilhouette.. IMPRESSION: Stable exam. CRITICAL RESULT: No. COMMUNICATION: Per this written report. By electronically signing this report, I, the attending physician, [email or web address] I have personally reviewed the images/data for the aboveexamination(s) and agree with the final edited report. Drafted by Giovanni Cm MD on 05/24/2025 7:08 AM Final report signed by Heriberto Ivy MD on 05/24/2025 8:33 AM Lokesh Anderson MD IMG XR PROCEDURES Final Result * (ABNORMAL) POCT glucose meter (05/23/2025 11:57 PM EST) POCT Glucose 182(H) 74 - 99 mg/dL 05/23/2025 11:59 PM EST [facility] Comment:Accuracy of a glucos e result obtained from a capillary whole blood specimen relies upon adequate, non-compromised capillary blood flow. If the capillary glucose result is not consistent with the patient's clinical signs and symptoms, glucose testing should be repeated with either an arterial or venous sample on the glucometer or sent to the main labortory for testing. Comment 05/23/2025 11:59 PM EST [facility] [employer] Agent ID Katlyn Amin 05/23/2025 11:59 PM EST [facility] Device ID [id number] 05/23/2025 11:59 PM EST [facility] Specimen Type POC Capillary 05/23/2025 11:59 PM EST [facility] Blood Capillary blood specimen / Unknown 05/23/2025 11:57 PM EST 05/23/2025 11:59 PM EST Lokesh Anderson MD LAB POINT OF CARE TE ST DOCKED DEVICE UNSOLICITED RESULTS Final Result [facility] [address] [place] [address] * (ABNORMAL) POCT glucose meter (05/23/2025 4:27 PM EST) POCT Glucose 216(H) 74 - 99 mg/dL 05/23/2025 4:33 PM EST [facility] Comment:Accuracy of a glucos e result obtained from a capillary whole blood specimen relies upon adequate, non-compromised capillary blood flow. If the capillary glucose result is not consistent with the patient's clinical signs and symptoms, glucose testing should be repeated with either an arterial or venous sample on the glucometer or sent to the main labortory for testing. Comment 05/23/2025 4:33 PM EST [facility] [employer] Agent ID Emily Kong 05/23/20 4:33 PM EST [facility] Device ID [id number] 05/23/2025 4:33 PM EST [facility] Specimen Type POC Capillary 05/23/2025 4:33 PM EST [facility] Blood Capillary blood specimen / Unknown 05/23/2025 4:27 PM EST 05/23/2025 4:33 PM EST us Lokesh Anderson MD LAB POINT OF CARE TE ST DOCKED DEVICE UNSOLICITED RESULTS Final Result Performing Organization Address City/[facility] Co de Phone Number [facility] [address] [place] [address] * (ABNORMAL) POCT glucose meter (05/23/2025 12:07 PM EST) [facility] POCT Glucose 224(H) 74 - 99 mg/dL 05/23/2025 12:09 PM EST [facility] Comment:Accuracy of a glucos e result obtained from a capillary whole blood specimen relies upon adequate, non-compromised capillary blood flow. If the capillary glucose result is not consistent with the patient's clinical signs and symptoms, glucose testing should be repeated with either an arterial or venous sample on the glucometer or sent to the main labortory for testing. Comment 05/23/2025 12:09 PM EST [facility] [employer] Agent ID Raffi Saenz 05/23/2025 12:09 PM EST [facility] Device ID [id number] 05/23/2025 12:09 PM EST [facility] Specimen Type POC Capillary 05/23/2025 12:09 PM EST [facility] Blood Capillary blood specimen / Unknown 05/23/2025 12:07 PM EST 05/23/2025 12:09 PM EST us Lokesh Anderson MD LAB POINT OF CARE TE ST DOCKED DEVICE UNSOLICITED RESULTS Final Result Performing Organization Address City/[facility]/ZIP Co de Phone Number [facility] [address] [place] [address] * (ABNORMAL) POCT glucose meter (05/23/2025 4:38 AM EST) POCT Glucose 164(H) 74 - 99 mg/dL 05/23/2025 4:39 AM EST [facility] Comment:Accuracy of a glucos e result obtained from a capillary whole blood specimen relies upon adequate, non-compromised capillary blood flow. If the capillary glucose result is not consistent with the patient's clinical signs and symptoms, glucose testing should be repeated with either an arterial or venous sample on the glucometer or sent to the main labortory for testing. Comment 05/23/2025 4:39 AM EST [facility] [employer] Agent ID Laurie Smyth 05/23/2025 4:39 AM EST [facility] Device ID [id number] 05/23/2025 4:39 AM EST [facility] Specimen Type POC Capillary 05/23/2025 4:39 AM EST [facility] Blood Capillary blood specimen / Unknown 05/23/2025 4:38 AM EST 05/23/2025 4:39 AM EST us Lokesh Anderson MD LAB POINT OF CARE TE ST DOCKED DEVICE UNSOLICITED RESULTS Final Result Performing Organization Address City/State/[facility] Co de Phone Number [facility] [address] [place] [address] * (ABNORMAL) Comprehensive Metabolic Panel, Plasma (05/23/2025 4:29 AM EST) Glucose, Plasma 177(H) 74 - 99 mg/dL 05/23/2025 5:47 AM EST [facility] BUN, Plasma 11 8 - 23 mg/dL 05/23/2025 5:47 AM EST [facility] Creatinine, Plasma 0.43(L) 0.60 - 1.10 mg/dL 05/23/2025 5:47 AM EST [facility] BUN/Creatinine Ratio 26 05/23/2025 5:47 AM EST [facility] Sodium, Plasma 134(L) 136 - 145 mmol/L 05/23/2025 5:47 AM EST [facility] Potassium, Plasma 4.2 3.6 - 4.9 mmol/L 05/23/2025 5:47 AM EST [facility] Chloride, Plasma 103 97 - 107 mmol/L 05/23/2025 5:47 AM EST [facility] CO2, Plasma 21(L) 22 - 29 mmol/L 05/23/2025 5:47 AM EST [facility] Anion Gap 10 6 - 16 mmol/L 05/23/2025 5:47 AM EST [facility] Total Calcium, Plasma 7.9(L) 8.9 - 10.2 mg/dL 05/23/2025 5:47 AM EST [facility] Total Protein 6.0(L) 6.3 - 7.9 g/dL 05/23/2025 5:47 AM EST [facility] Albumin, Plasma 2.1(L) 3.5 - 5.2 g/dL 05/23/2025 5:47 AM EST [facility] AST, Plasma 16 10 - 35 U/L 05/23/2025 5:47 AM EST [facility] Comment:Hemolyzed, result ma y be falsely increased. ALT, Plasma 8(L) 10 - 35 U/L 05/23/2025 5:47 AM EST [facility] Alkaline Phosphatase, Plasma 73 46 - 142 U/L 05/23/2025 5:47 AM EST [facility] Total Bilirubin, Plasma 0.3 0.2 - 1.1 mg/dL 05/23/2025 5:47 AM EST [facility] eGFRcr 104.1 mL/min/1.7 3m*2 05/23/2025 5:47 AM EST [facility] Comment:Reported eGFRcr in m L/min/1.73m2 is based the CKD-EPI 2020 equation that does not use a race coefficient. Blood Venous blood specimen / Unknown Venipuncture / Unknown 05/23/2025 4:29 AM EST 05/23/2025 4:55 AM EST us Lokesh Anderson MD LAB BLOOD ORDERABLES Final Resul t [facility] [address] [place] [address] * Phosphorus, Plasma (05/23/2025 4:29 AM EST) Phosphorus, Plasma 2.6 2.5 - 4.5 mg/dL 05/23/2025 5:47 AM EST [facility] Blood Venous blood specimen / Unknown Venipuncture / Unknown 05/23/2025 4:29 AM EST 05/23/2025 4:55 AM EST us Lokesh Anderson MD LAB BLOOD ORDERABLES Final Resul t [facility] [address] [place] [address] * (ABNORMAL) Magnesium, Plasma (05/23/2025 4:29 AM EST) Magnesium, Plasma 1.8(L) 1.9 - 2.4 mg/dL 05/23/2025 5:47 AM EST [facility] Blood Venous blood specimen / Unknown Venipuncture / Unknown 05/23/2025 4:29 AM EST 05/23/2025 4:55 AM EST us Lokesh Anderson MD LAB BLOOD ORDERABLES Final Resul t Performing Organization Address City/[facility]/ZIP Co de Phone Number [facility] [address] [place] [address] * (ABNORMAL) CBC W/O Differential (05/23/2025 4:29 AM EST) Pathologist [facility] WBC Count 13.42(H) 3.70 - 10.30 10*3/uL LAB HEMATOLOGY METHOD 05/23/2025 5:05 AM EST [facility] RBC Count 3.50(L) 3.90 - 5.20 10*6/uL LAB HEMATOLOGY METHOD 05/23/2025 5:05 AM EST [facility] HGB 10.4(L) 11.2 - 15.7 g/dL LAB HEMATOLOGY METHOD 05/23/2025 5:05 AM EST [facility] HCT 30.4(L) 34.0 - 45.0 % LAB HEMATOLOGY METHOD 05/23/2025 5:05 AM EST [facility] Platelet Count 517(H) 155 - 369 10*3/uL LAB HEMATOLOGY METHOD 05/23/2025 5:05 AM EST [facility] MCV 87 79 - 98 fL LAB HEMATOLOGY METHOD 05/23/2025 5:05 AM EST [facility] MCH 29.7 26.0 - 32.0 pg LAB HEMATOLOGY METHOD 05/23/2025 5:05 AM EST [facility] MCHC 34.2 30.7 - 35.5 g/dL LAB HEMATOLOGY METHOD 05/23/2025 5:05 AM EST [facility] RDW 16.9(H) 11.5 - 14.5 % LAB HEMATOLOGY METHOD 05/23/2025 5:05 AM EST [facility] MPV 10.0 8.8 - 12.5 fL LAB HEMATOLOGY METHOD 05/23/2025 5:05 AM EST [facility] nRBC 0.0 <=0.0 per 100 WBCs LAB HEMATOLOGY METHOD 05/23/2025 5:05 AM EST [facility] Blood Venous blood specimen / Unknown Venipuncture / Unknown 05/23/2025 4:29 AM EST 05/23/2025 4:56 AM EST us Lokesh Anderson MD LAB BLOOD ORDERABLES Final Resul t [facility] [address] [place] [address] * XR Chest 1 View (05/23/2025 1:23 AM EST) Anatomical Region Laterality Modality Chest Digital Radiogra phy Impressions 05/23/2025 7:57 AM EST Stable exam. CRITICAL RESULT: No. COMMUNICATION: Per this written report Drafted by Heriberto Ivy MD on 05/23/2025 7:57 AM Final report signed by Heriberto Ivy MD on 05/23/2025 7:57 AM Narrative 05/23/2025 7:57 AM EST CLINICAL INDICATION: chest tube, eval effusion TECHNIQUE: XR CHEST 1 VIEW COMPARISON: 23 hours prior FINDINGS: Left pleural catheter in place. Large left pleural effusion, similar to comparison. No pneumothorax. Procedure Note Heriberto Ivy MD - 05/23/2025 CLINICAL INDICATION: chest tube, eval effusion TECHNIQUE: XR CHEST 1 VIEW COMPARISON: 23 hours prior FINDINGS: Left pleural catheter in place. Large left pleural effusion, similar tocomparison. No pneumothorax. IMPRESSION: Stable exam. CRITICAL RESULT: No. COMMUNICATION: Per this written report Drafted by Heriberto Ivy MD on 05/23/2025 7:57 AM Final report signed by Heriberto Ivy MD on 05/23/2025 7:57 AM Lokesh Anderson MD IMG XR PROCEDURES Final Result * (ABNORMAL) POCT glucose meter (05/23/2025 12:01 AM EST) POCT Glucose 187(H) 74 - 99 mg/dL 05/23/2025 12:03 AM EST [facility] Comment:Accuracy of a glucos e result obtained from a capillary whole blood specimen relies upon adequate, non-compromised capillary blood flow. If the capillary glucose result is not consistent with the patient's clinical signs and symptoms, glucose testing should be repeated with either an arterial or venous sample on the glucometer or sent to the main labortory for testing. Comment 05/23/2025 12:03 AM EST [facility] Livestock [employer] Agent ID Laurie Smyth 05/23/2025 12:03 AM EST [facility] Device ID [id number] 05/23/2025 12:03 AM EST [facility] Specimen Type POC Capillary 05/23/2025 12:03 AM EST [facility] Blood Capillary blood specimen / Unknown 05/23/2025 12:01 AM EST 05/23/2025 12:03 AM EST Lokesh Anderson MD LAB POINT OF CARE TE ST DOCKED DEVICE UNSOLICITED RESULTS Final Result [facility] [address] [place] [id number] * (ABNORMAL) POCT glucose meter (05/22/2025 8:04 PM EST) POCT Glucose 191(H) 74 - 99 mg/dL 05/22/2025 8:06 PM EST [facility] Comment:Accuracy of a glucos e result obtained from a capillary whole blood specimen relies upon adequate, non-compromised capillary blood flow. If the capillary glucose result is not consistent with the patient's clinical signs and symptoms, glucose testing should be repeated with either an arterial or venous sample on the glucometer or sent to the main labortory for testing. Comment 05/22/2025 8:06 PM EST [facility] Livestock Commission Agent ID Laurie Smyth 05/22/2025 8:06 PM EST [facility] Device ID [id number] 05/22/2025 8:06 PM EST [facility] Specimen Type POC Capillary 05/22/2025 8:06 PM EST [facility] Blood Capillary blood specimen / Unknown 05/22/2025 8:04 PM EST 05/22/2025 8:06 PM EST us Lokesh Anderson MD LAB POINT OF CARE TE ST DOCKED DEVICE UNSOLICITED RESULTS Final Result Performing Organization Address City/[facility] Co de Phone Number [facility] [address] [place] [address] * (ABNORMAL) POCT glucose meter (05/22/2025 4:19 PM EST) [facility] POCT Glucose 142(H) 74 - 99 mg/dL 05/22/2025 4:23 PM EST [facility] Comment:Accuracy of a glucos e result obtained from a capillary whole blood specimen relies upon adequate, non-compromised capillary blood flow. If the capillary glucose result is not consistent with the patient's clinical signs and symptoms, glucose testing should be repeated with either an arterial or venous sample on the glucometer or sent to the main labortory for testing. Comment 05/22/2025 4:23 PM EST [facility] Livestock Commission Agent ID Sarai Matthews 05/22/20 4:23 PM EST [facility] Device ID [id number] 05/22/2025 4:23 PM EST [facility] Specimen Type POC Capillary 05/22/2025 4:23 PM EST [facility] Blood Capillary blood specimen / Unknown 05/22/2025 4:19 PM EST 05/22/2025 4:23 PM EST us Lokesh Anderson MD LAB POINT OF CARE TE ST DOCKED DEVICE UNSOLICITED RESULTS Final Result Performing Organization Address City/[facility]/ZIP Co de Phone Number [facility] [address] [place] [address] * (ABNORMAL) POCT glucose meter (05/22/2025 11:44 AM EST) POCT Glucose 165(H) 74 - 99 mg/dL 05/22/2025 11:51 AM EST [facility] Comment:Accuracy of a glucos e result obtained from a capillary whole blood specimen relies upon adequate, non-compromised capillary blood flow. If the capillary glucose result is not consistent with the patient's clinical signs and symptoms, glucose testing should be repeated with either an arterial or venous sample on the glucometer or sent to the main labortory for testing. Comment 05/22/2025 11:51 AM EST [facility] Livestock Commission Agent ID Sarai Matthews 05/22/20 11:51 AM EST [facility] Device ID [id number] 05/22/2025 11:51 AM EST [facility] Specimen Type POC Capillary 05/22/2025 11:51 AM EST [facility] Blood Capillary blood specimen / Unknown 05/22/2025 11:44 AM EST 05/22/2025 11:51 AM EST us Lokesh Anderson MD LAB POINT OF CARE TE ST DOCKED DEVICE UNSOLICITED RESULTS Final Result [facility] [address] [place] [address] * CT Chest w IV Contrast (05/22/2025 10:46 AM EST) Anatomical Region Laterality Modality Chest Computed Tomogra phy Impressions 05/22/2025 2:54 PM EST Large left pleural effusion and left lower lobe atelectasis. Trace right pleural effusion and mild right basal atelectatic changes. Fluid-filled structure along the left lower lobe may represent a loculated pleural fluid along the left major fissure versus pulmonary cyst. CRITICAL RESULT: No. COMMUNICATION: Per this written report. Drafted by Poncho Velez MD on 05/22/2025 1:33 PM Final report signed by Poncho Velez MD on 05/22/2025 2:54 PM Narrative 05/22/2025 2:54 PM EST CLINICAL INDICATION: Chest wall pain, nontraumatic, infection or inflammation suspected, xray done TECHNIQUE: Multiple CT helical images were obtained from thoracic inlet through upper abdomen with administration of IV contrast. 100 mL of Omnipaque-300 were administered intravenously. The imaging protocol used in this examination was optimized to achieve diagnostic quality with the lowest possible radiation dose in accordance with the principles of ALARA (As Low As Reasonably Achievable). COMPARISON: None. FINDINGS: Mediastinum and Pleura: Multiple prominent lymph nodes in the left cervical/supraclavicular region. Prominent lymph nodes along the left subpectoral, axillary and mediastinal regions. No cardiomegaly or pericardial effusion. Patent major vasculature of the chest. Large left pleural effusion similar to prior. Trace right pleural effusion. Lungs: The central airways are patent. Large left pleural effusion. Left Lower lobe atelectasis. A pulmonary cyst versus loculated pleural fluid along the left major fissure. Trace right pleural effusion and right basal atelectatic changes. Upper Abdomen: Pneumobilia in the liver. Partially visualized fluid collection along the distal pancreatectomy site. No acute pathology in the partially visualized upper abdomen. Musculoskeletal: No suspicious lytic or sclerotic lesion. Multilevel degenerative changes. Right PICC, the tip terminates close to the cavoatrial junction. Procedure Note Poncho Velez MD - 05/22/2025 CLINICAL INDICATION: Chest wall pain, nontraumatic, infection or inflammation suspected, xraydone TECHNIQUE: Multiple CT helical images were obtained from thoracic inlet through upperabdomen with administration of IV contrast. 100 mL of Omnipaque-300 wereadministered intravenously. The imaging protocol used in this examination was optimized to achievediagnostic quality with the lowest possible radiation dose in accordancewith the principles of ALARA (As Low As Reasonably Achievable). COMPARISON: None. FINDINGS: Mediastinum and Pleura: Multiple prominent lymph nodes in the leftcervical/supraclavicular region. Prominent lymph nodes along the leftsubpectoral, axillary and mediastinal regions. No cardiomegaly orpericardial effusion. Patent major vasculature of the chest. Large leftpleural effusion similar to prior. Trace right pleural effusion. Lungs: The central airways are patent. Large left pleural effusion. LeftLower lobe atelectasis. A pulmonary cyst versus loculated pleural fluidalong the left major fissure. Trace right pleural effusion and right basalatelectatic changes. Upper Abdomen: Pneumobilia in the liver. Partially visualized fluidcollection along the distal pancreatectomy site. No acute pathology in thepartially visualized upper abdomen. Musculoskeletal: No suspicious lytic or sclerotic lesion. Multileveldegenerative changes. Right PICC, the tip terminates close to thecavoatrial junction. IMPRESSION: Large left pleural effusion and left lower lobe atelectasis. Trace rightpleural effusion and mild right basal atelectatic changes. Fluid-filled structure along the left lower lobe may represent a loculatedpleural fluid along the left major fissure versus pulmonary cyst. CRITICAL RESULT: No. COMMUNICATION: Per this written report. Drafted by Poncho Velez MD on 05/22/2025 1:33 PM Final report signed by Poncho Velez MD on 05/22/2025 2:54 PM us Lokesh Anderson MD IMG CT PROCEDURES Final Result * (ABNORMAL) POCT glucose meter (05/22/2025 8:15 AM EST) POCT Glucose 140(H) 74 - 99 mg/dL 05/22/2025 8:23 AM EST [facility] Comment:Accuracy of a glucos e result obtained from a capillary whole blood specimen relies upon adequate, non-compromised capillary blood flow. If the capillary glucose result is not consistent with the patient's clinical signs and symptoms, glucose testing should be repeated with either an arterial or venous sample on the glucometer or sent to the main labortory for testing. Comment 05/22/2025 8:23 AM EST [facility] Livestock Commission Agent ID Sarai Matthews 05/22/20 8:23 AM EST [facility] Device ID [id number] 05/22/2025 8:23 AM EST [facility] Specimen Type POC Capillary 05/22/2025 8:23 AM EST [facility] Blood Capillary blood specimen / Unknown 05/22/2025 8:15 AM EST 05/22/2025 8:23 AM EST us Lokesh Anderson MD LAB POINT OF CARE TE ST DOCKED DEVICE UNSOLICITED RESULTS Final Result [facility] [address] [place] [address] [place] [address] * (ABNORMAL) POCT glucose meter (05/22/2025 6:22 AM EST) [facility] POCT Glucose 158(H) 74 - 99 mg/dL 05/22/2025 6:25 AM EST [facility] Comment:Accuracy of a glucos e result obtained from a capillary whole blood specimen relies upon adequate, non-compromised capillary blood flow. If the capillary glucose result is not consistent with the patient's clinical signs and symptoms, glucose testing should be repeated with either an arterial or venous sample on the glucometer or sent to the main labortory for testing. Comment 05/22/2025 6:25 AM EST [facility] Livestock Commission Agent ID Teri Howard 025 6:25 AM EST [facility] Device ID [id number] 05/22/2025 6:25 AM EST [facility] Specimen Type POC Capillary 05/22/2025 6:25 AM EST [facility] Blood Capillary blood specimen / Unknown 05/22/2025 6:22 AM EST 05/22/2025 6:25 AM EST Lokesh Anderson MD LAB POINT OF CARE TE ST DOCKED DEVICE UNSOLICITED RESULTS Final Result [facility] [address] [place] [address] * (ABNORMAL) Comprehensive Metabolic Panel, Plasma (05/22/2025 3:53 AM EST) Pathologist [facility] Glucose, Plasma 164(H) 74 - 99 mg/dL 05/22/2025 4:29 AM EST [facility] BUN, Plasma 10 8 - 23 mg/dL 05/22/2025 4:29 AM EST [facility] Creatinine, Plasma 0.54(L) 0.60 - 1.10 mg/dL 05/22/2025 4:29 AM EST [facility] BUN/Creatinine Ratio 19 05/22/2025 4:29 AM EST [facility] Sodium, Plasma 136 136 - 145 mmol/L 05/22/2025 4:29 AM EST [facility] Potassium, Plasma 4.2 3.6 - 4.9 mmol/L 05/22/2025 4:29 AM EST [facility] Chloride, Plasma 105 97 - 107 mmol/L 05/22/2025 4:29 AM EST [facility] CO2, Plasma 21(L) 22 - 29 mmol/L 05/22/2025 4:29 AM EST [facility] Anion Gap 10 6 - 16 mmol/L 05/22/2025 4:29 AM EST [facility] Total Calcium, Plasma 7.7(L) 8.9 - 10.2 mg/dL 05/22/2025 4:29 AM EST [facility] Total Protein 5.8(L) 6.3 - 7.9 g/dL 05/22/2025 4:29 AM EST [facility] Albumin, Plasma 2.0(L) 3.5 - 5.2 g/dL 05/22/2025 4:29 AM EST [facility] AST, Plasma 11 10 - 35 U/L 05/22/2025 4:29 AM EST [facility] ALT, Plasma 5(L) 10 - 35 U/L 05/22/2025 4:29 AM EST [facility] Alkaline Phosphatase, Plasma 77 46 - 142 U/L 05/22/2025 4:29 AM EST [facility] Total Bilirubin, Plasma 0.3 0.2 - 1.1 mg/dL 05/22/2025 4:29 AM EST [facility] eGFRcr 98.6 mL/min/1.7 3m*2 05/22/2025 4:29 AM EST [facility] Comment:Reported eGFRcr in m L/min/1.73m2 is based the CKD-EPI 2020 equation that does not use a race coefficient. Blood Venous blood specimen / Unknown Venipuncture / Unknown 05/22/2025 3:53 AM EST 05/22/2025 3:59 AM EST us Lokesh Anderson MD LAB BLOOD ORDERABLES Final Resul t [facility] [address] [place] [address] * Phosphorus, Plasma (05/22/2025 3:53 AM EST) Phosphorus, Plasma 3.3 2.5 - 4.5 mg/dL 05/22/2025 4:29 AM EST [facility] Blood Venous blood specimen / Unknown Venipuncture / Unknown 05/22/2025 3:53 AM EST 05/22/2025 3:59 AM EST us Lokesh Anderson MD LAB BLOOD ORDERABLES Final Resul t Performing Organization Address City/[facility]/ZIP Co de Phone Number [facility] [address] [place] [address] * Magnesium, Plasma (05/22/2025 3:53 AM EST) Magnesium, Plasma 1.9 1.9 - 2.4 mg/dL 05/22/2025 4:29 AM EST [facility] Blood Venous blood specimen / Unknown Venipuncture / Unknown 05/22/2025 3:53 AM EST 05/22/2025 3:59 AM EST us Lokesh Anderson MD LAB BLOOD ORDERABLES Final Resul t Performing Organization Address City/[facility]/ZIP Co de Phone Number [facility] [address] [place] [address] * (ABNORMAL) CBC W/O Differential (05/22/2025 3:53 AM EST) WBC Count 14.71(H) 3.70 - 10.30 10*3/uL LAB HEMATOLOGY METHOD 05/22/2025 4:08 AM EST [facility] RBC Count 3.65(L) 3.90 - 5.20 10*6/uL LAB HEMATOLOGY METHOD 05/22/2025 4:08 AM EST [facility] HGB 10.6(L) 11.2 - 15.7 g/dL LAB HEMATOLOGY METHOD 05/22/2025 4:08 AM EST [facility] HCT 32.3(L) 34.0 - 45.0 % LAB HEMATOLOGY METHOD 05/22/2025 4:08 AM EST [facility] Platelet Count 444(H) 155 - 369 10*3/uL LAB HEMATOLOGY METHOD 05/22/2025 4:08 AM EST [facility] MCV 89 79 - 98 fL LAB HEMATOLOGY METHOD 05/22/2025 4:08 AM EST [facility] MCH 29.0 26.0 - 32.0 pg LAB HEMATOLOGY METHOD 05/22/2025 4:08 AM EST [facility] MCHC 32.8 30.7 - 35.5 g/dL LAB HEMATOLOGY METHOD 05/22/2025 4:08 AM EST [facility] RDW 16.8(H) 11.5 - 14.5 % LAB HEMATOLOGY METHOD 05/22/2025 4:08 AM EST [facility] MPV 9.9 8.8 - 12.5 fL LAB HEMATOLOGY METHOD 05/22/2025 4:08 AM EST [facility] nRBC 0.0 <=0.0 per 100 WBCs LAB HEMATOLOGY METHOD 05/22/2025 4:08 AM EST [facility] Blood Venous blood specimen / Unknown Venipuncture / Unknown 05/22/2025 3:53 AM EST 05/22/2025 4:00 AM EST Lokesh Anderson MD LAB BLOOD ORDERABLES Final Resul t [facility] [address] [place] [address] * XR Chest 1 View (05/22/2025 1:37 AM EST) Anatomical Region Laterality Modality Chest Digital Radiogra phy Impressions 05/22/2025 1:24 PM EST Similar left pleural effusion and left lung opacification, with mildly increased aeration of the left upper lobe. CRITICAL RESULT: No. COMMUNICATION: Per this written report. Drafted by Poncho Velez MD on 05/22/2025 1:23 PM Final report signed by Poncho Velez MD on 05/22/2025 1:24 PM Narrative 05/22/2025 1:24 PM EST CLINICAL INDICATION: chest tube, eval effusion TECHNIQUE: Single AP view of chest. COMPARISON: One day prior FINDINGS: Stable support hardware. The cardiomediastinal contours are obscured. No right pneumothorax or pleural effusion. Similar left pleural effusion and left lung opacification, with mildly increased aeration at the left upper lobe. Procedure Note Poncho Velez MD - 05/22/2025 CLINICAL INDICATION: chest tube, eval effusion TECHNIQUE: Single AP view of chest. COMPARISON: One day prior FINDINGS: Stable support hardware. The cardiomediastinal contours are obscured. Noright pneumothorax or pleural effusion. Similar left pleural effusion andleft lung opacification, with mildly increased aeration at the left upperlobe. IMPRESSION: Similar left pleural effusion and left lung opacification, with mildlyincreased aeration of the left upper lobe. CRITICAL RESULT: No. COMMUNICATION: Per this written report. Drafted by Poncho Velez MD on 05/22/2025 1:23 PM Final report signed by Poncho Velez MD on 05/22/2025 1:24 PM us Lokesh Anderson MD IMG XR PROCEDURES Final Result * (ABNORMAL) POCT glucose meter (05/22/2025 12:59 AM EST) POCT Glucose 155(H) 74 - 99 mg/dL 05/22/2025 1:09 AM EST [facility] Comment:Accuracy of a glucos e result obtained from a capillary whole blood specimen relies upon adequate, non-compromised capillary blood flow. If the capillary glucose result is not consistent with the patient's clinical signs and symptoms, glucose testing should be repeated with either an arterial or venous sample on the glucometer or sent to the main labortory for testing. Comment 05/22/2025 1:09 AM EST [facility] Livestock Commission Agent ID Florence Deleon 1:09 AM EST [facility] Device ID [id number] 05/22/2025 1:09 AM EST [facility] Specimen Type POC Capillary 05/22/2025 1:09 AM EST [facility] Blood Capillary blood specimen / Unknown 05/22/2025 12:59 AM EST 05/22/2025 1:09 AM EST us Lokesh Anderson MD LAB POINT OF CARE TE ST DOCKED DEVICE UNSOLICITED RESULTS Final Result [facility] [address] [place] [id number] * (ABNORMAL) POCT glucose meter (05/21/2025 8:07 PM EST) [facility] POCT Glucose 143(H) 74 - 99 mg/dL 05/21/2025 8:08 PM EST [facility] Comment:Accuracy of a glucos e result obtained from a capillary whole blood specimen relies upon adequate, non-compromised capillary blood flow. If the capillary glucose result is not consistent with the patient's clinical signs and symptoms, glucose testing should be repeated with either an arterial or venous sample on the glucometer or sent to the main labortory for testing. Comment 05/21/2025 8:08 PM EST [facility] Livestock Commission Agent ID Jigar Anderson 8:08 PM EST [facility] Device ID [id number] 05/21/2025 8:08 PM EST [facility] Specimen Type POC Capillary 05/21/2025 8:08 PM EST [facility] Blood Capillary blood specimen / Unknown 05/21/2025 8:07 PM EST 05/21/2025 8:08 PM EST Lokesh Anderson MD LAB POINT OF CARE TE ST DOCKED DEVICE UNSOLICITED RESULTS Final Result [facility] [address] [place] [address] * (ABNORMAL) POCT glucose meter (05/21/2025 5:28 PM EST) [facility] POCT Glucose 147(H) 74 - 99 mg/dL 05/21/2025 5:33 PM EST [facility] Comment:Accuracy of a glucos e result obtained from a capillary whole blood specimen relies upon adequate, non-compromised capillary blood flow. If the capillary glucose result is not consistent with the patient's clinical signs and symptoms, glucose testing should be repeated with either an arterial or venous sample on the glucometer or sent to the main labortory for testing. Comment 05/21/2025 5:33 PM EST [facility] Livestock Commission Agent ID Sarai Matthews 05/21/20 5:33 PM EST [facility] Device ID [id number] 05/21/2025 5:33 PM EST [facility] Specimen Type POC Capillary 05/21/2025 5:33 PM EST [facility] Blood Capillary blood specimen / Unknown 05/21/2025 5:28 PM EST 05/21/2025 5:33 PM EST us Lokesh Anderson MD LAB POINT OF CARE TE ST DOCKED DEVICE UNSOLICITED RESULTS Final Result [facility] [address] [place] [address] * XR Chest 1 View (05/21/2025 2:10 PM EST) Anatomical Region Laterality Modality Chest Digital Radiogra phy Impressions 05/21/2025 2:50 PM EST Chest tube overlies the left lung base. No pneumothorax. Large loculated left pleural effusion with associated atelectasis. CRITICAL RESULT: No. COMMUNICATION: Per this written report. By electronically signing this report, I, the attending physician, attest that I have personally reviewed the images/data for the above examination(s) and agree with the final edited report. Drafted by Justo Weaver III, MD on 05/21/2025 2:26 PM Final report signed by Heriberto Ivy MD on 05/21/2025 2:50 PM Narrative 05/21/2025 2:50 PM EST CLINICAL INDICATION: s/p chest tube placement TECHNIQUE: XR CHEST 1 VIEW COMPARISON: CT-guided left chest tube placement dated 05/21/2025 Chest radiograph dated 03/31/2025 FINDINGS: Chest tube placed overlying the left lung base. Stable positioning of right PICC with tip overlying the cavoatrial junction. There is a large loculated left pleural effusion with associated atelectasis, increased from chest radiograph 2 months prior. No right pleural effusion. No pneumothorax. No focal airspace consolidation in the right lung. Procedure Note Heriberto Ivy MD - 05/21/2025 CLINICAL INDICATION: s/p chest tube placement TECHNIQUE: XR CHEST 1 VIEW COMPARISON: CT-guided left chest tube placement dated 05/21/2025 Chest radiograph dated 03/31/2025 FINDINGS: Chest tube placed overlying the left lung base. Stable positioning ofright PICC with tip overlying the cavoatrial junction. There is a largeloculated left pleural effusion with associated atelectasis, increasedfrom chest radiograph 2 months prior. No right pleural effusion. Nopneumothorax. No focal airspace consolidation in the right lung. IMPRESSION: Chest tube overlies the left lung base. No pneumothorax. Large loculated left pleural effusion with associated atelectasis. CRITICAL RESULT: No. COMMUNICATION: Per this written report. By electronically signing this report, I, the attending physician, attestthat I have personally reviewed the images/data for the aboveexamination(s) and agree with the final edited report. Drafted by Justo Weaver III, MD on 05/21/2025 2:26 PM Final report signed by Heriberto Ivy MD on 05/21/2025 2:50 PM us Lokesh Anderson MD IMG XR PROCEDURES Final Result * CT Guided Chest Tube Left (05/21/2025 11:55 AM EST) Anatomical Region Laterality Modality Chest Left Computed Tomogra phy Impressions 05/21/2025 6:[address]-guided left-sided 10 [place] chest tube placement. PLAN: -Chest tube maintenance per primary team. -Chest radiograph to be obtained 1 hour post procedure. -Apply dry dressing around site weekly or PRN if soiled or wet. Clean site with saline as needed. Secure with tube securement device to prevent inadvertent removal of drain whether the drain is sutured in or not. CRITICAL RESULT: No. COMMUNICATION: Per this written report. By electronically signing this report, I, the attending physician, attest that I was present for the entire procedure(s) and agree with the final edited report. Drafted by Nasima Sequeira MD on 05/21/2025 5:59 PM Final report signed by Nasima Sequeira MD on 05/21/2025 6:07 PM Narrative 05/21/2025 6:07 PM EST CLINICAL INDICATION: 69-year-old female with history of IPMN s/p distal pancreatectomy/splenectomy c/b postop pancreatic leak. CT abdomen/pelvis on 05/20/2025 demonstrated a loculated large left pleural effusion. Patient presents for image guided left-sided chest tube placement. TECHNIQUE: Aerospace Stress Engineer: Malou Verma M.D. Secondary Livestock Commission Agent: Sadi Yousif MSI Supervising Attending: Nasima Sequeira M.D. Nurse: Viviane Murillo Technologist: Rafi Perea Rad Dose (DLP): 689 mGy-cm Medications: IV conscious sedation with continuous physiologic monitoring provided by a qualified healthcare professional using Versed 1 mg IV and Fentanyl 50 mcg IV. 1% Lidocaine SQ. Antibiotics: None. Duration of Conscious Sedation: Time out: 1117 hours close out: 1131 hours Procedure: After discussion of risks and benefits, informed written consent was obtained. Appropriate time out was done to confirm patient identity and planned procedure . Strict hand hygiene protocol was observed. All personnel in the room were attired in surgical hat and mask. The operators were in surgical hat, mask, sterile gloves, and sterile gowns. The site was prepped with 2% chlorhexidine for cutaneous antisepsis followed by sterile barrier draping. The patient was placed supine on the CT table and initial scanning carried out. The skin overlying the planned tract was prepped and draped, and local anesthetic administered. The left pleural space was accessed under CT guidance with an 18- gauge Rasmussen needle and position confirmed. Via the needle a 0.035 inch Amplatz wire was placed. Over this wire, a 10 Fr pigtail drain was placed, and the wire removed. A total of 10 cc of tan yellow pleural fluid was withdrawn. Follow-up CT demonstrated good position of the drain. The drain was connected to PleurVac drainage, and secured to the skin with 2-0 Silk and an occlusive dressing. Patient tolerated the procedure well, and was transferred back to recovery in good condition. COMPARISON: CT abdomen/pelvis 05/20/2025 FINDINGS: Preprocedure limited CT of the chest demonstrated a large loculated left pleural effusion. Post procedure limited CT of the chest demonstrated appropriate positioning of the newly placed left-sided chest tube. COMPLICATION: No. Procedure Note Nasima Sequeira MD - 05/21/2025 CLINICAL INDICATION: 69-year-old female with history of IPMN s/p distalpancreatectomy/splenectomy c/b postop pancreatic leak. CT abdomen/pelvison 05/20/2025 demonstrated a loculated large left pleural effusion.Patient presents for image guided left-sided chest tube placement. TECHNIQUE: Aerospace Stress Engineer: Malou Verma M.D. Secondary Livestock Commission Agent: Sadi DIALLO Supervising Attending: Nasima Sequeira M.D. Nurse: Viviane Murillo Technologist: Rafi Perea Rad Dose (DLP): 689 mGy-cm Medications: IV conscious sedation with continuous physiologic monitoringprovided by a qualified healthcare professional using Versed 1 mg IV andFentanyl 50 mcg IV. 1% Lidocaine SQ. Antibiotics: None. Duration of Conscious Sedation: Time out: 1117 hours close out: 1131hours Procedure: After discussion of risks and benefits, informed written consent wasobtained. Appropriate time out was done to confirm patient identity andplanned procedure . Strict hand hygiene protocol was observed. All personnel in the room wereattired in surgical hat and mask. The operators were in surgical hat,mask, sterile gloves, and sterile gowns. The site was prepped with 2%chlorhexidine for cutaneous antisepsis followed by sterile barrierdraping. The patient was placed supine on the CT table and initial scanning carriedout. The skin overlying the planned tract was prepped and draped, andlocal anesthetic administered. The left pleural space was accessed underCT guidance with an 18- gauge Rasmussen needle and position confirmed. Viathe needle a 0.035 inch Amplatz wire was placed. Over this wire, a 10 Frpigtail drain was placed, and the wire removed. A total of 10 cc ofgolden yellow pleural fluid was withdrawn. Follow-up CT demonstrated goodposition of the drain. The drain was connected to PleurVac drainage, andsecured to the skin with 2-0 Silk and an occlusive dressing. Patienttolerated the procedure well, and was transferred back to recovery in goodcondition. COMPARISON: CT abdomen/pelvis 05/20/2025 FINDINGS: Preprocedure limited CT of the chest demonstrated a large loculated leftpleural effusion. Post procedure limited CT of the chest demonstratedappropriate positioning of the newly placed left-sided chest tube. COMPLICATION: No. IMPRESSION: Successful CT-guided left-sided 10 [place] chest tube placement. PLAN: -Chest tube maintenance per primary team. -Chest radiograph to be obtained 1 hour post procedure. -Apply dry dressing around site weekly or PRN if soiled or wet. Clean sitewith saline as needed. Secure with tube securement device to preventinadvertent removal of drain whether the drain is sutured in or not. CRITICAL RESULT: No. COMMUNICATION: Per this written report. By electronically signing this report, I, the attending physician, [email or web address] I was present for the entire procedure(s) and agree with the finaledited report. Drafted by Nasima Sequeira MD on 05/21/2025 5:59 PM Final report signed by Nasima Sequeira MD on 05/21/2025 6:07 PM Lokesh Anderson MD IMG CT PROCEDURES Final Result * Body Fluid Culture and Gram Stain (05/21/2025 11:30 AM EST) Culture No growth at day 4 2024 8:22 AM EST [facility] Gram Stain Result No polymorphonuclear leukocytes seen 05/24/2025 8:22 AM EST [facility] Gram Stain Result No organisms seen 05/24/2025 8:22 AM EST [facility] Pleural Fluid Structure of left pleural cavity / Unknown Non-blood Collection / Unknown 05/21/2025 11:30 AM EST 05/21/2025 12:40 PM EST Lokesh Anderson MD LAB MICROBIOLOGY - GENERAL ORDER FARSHAD Final Result [facility] [address] [place] [address] * (ABNORMAL) POCT glucose meter (05/21/2025 5:16 AM EST) POCT Glucose 118(H) 74 - 99 mg/dL 05/21/2025 5:18 AM EST [facility] Comment:Accuracy of a glucos e result obtained from a capillary whole blood specimen relies upon adequate, non-compromised capillary blood flow. If the capillary glucose result is not consistent with the patient's clinical signs and symptoms, glucose testing should be repeated with either an arterial or venous sample on the glucometer or sent to the main labortory for testing. Comment 05/21/2025 5:18 AM EST [facility] Livestock Commission Agent ID David Serrano 025 5:18 AM EST [facility] Device ID [id number] 05/21/2025 5:18 AM EST [facility] Specimen Type POC Capillary 05/21/2025 5:18 AM EST [facility] Blood Capillary blood specimen / Unknown 05/21/2025 5:16 AM EST 05/21/2025 5:18 AM EST us Lokesh Anderson MD LAB POINT OF CARE TE ST DOCKED DEVICE UNSOLICITED RESULTS Final Result [facility] [address] [place] [address] * (ABNORMAL) Comprehensive Metabolic Panel, Plasma (05/21/2025 3:15 AM EST) Glucose, Plasma 116(H) 74 - 99 mg/dL 05/21/2025 3:51 AM EST [facility] BUN, Plasma 11 8 - 23 mg/dL 05/21/2025 3:51 AM EST [facility] Creatinine, Plasma 0.61 0.60 - 1.10 mg/dL 05/21/2025 3:51 AM EST [facility] BUN/Creatinine Ratio 18 05/21/2025 3:51 AM EST [facility] Sodium, Plasma 136 136 - 145 mmol/L 05/21/2025 3:51 AM EST [facility] Potassium, Plasma 4.4 3.6 - 4.9 mmol/L 05/21/2025 3:51 AM EST [facility] Chloride, Plasma 105 97 - 107 mmol/L 05/21/2025 3:51 AM EST [facility] CO2, Plasma 21(L) 22 - 29 mmol/L 05/21/2025 3:51 AM EST [facility] Anion Gap 10 6 - 16 mmol/L 05/21/2025 3:51 AM EST [facility] Total Calcium, Plasma 7.9(L) 8.9 - 10.2 mg/dL 05/21/2025 3:51 AM EST [facility] Total Protein 5.9(L) 6.3 - 7.9 g/dL 05/21/2025 3:51 AM EST [facility] Albumin, Plasma 2.3(L) 3.5 - 5.2 g/dL 05/21/2025 3:51 AM EST [facility] AST, Plasma 12 10 - 35 U/L 05/21/2025 3:51 AM EST [facility] ALT, Plasma 8(L) 10 - 35 U/L 05/21/2025 3:51 AM EST [facility] Alkaline Phosphatase, Plasma 80 46 - 142 U/L 05/21/2025 3:51 AM EST [facility] Total Bilirubin, Plasma 0.5 0.2 - 1.1 mg/dL 05/21/2025 3:51 AM EST [facility] eGFRcr 95.7 mL/min/1.7 3m*2 05/21/2025 3:51 AM EST [facility] Comment:Reported eGFRcr in m L/min/1.73m2 is based the CKD-EPI 2020 equation that does not use a race coefficient. Blood Venous blood specimen / Unknown Venipuncture / Unknown 05/21/2025 3:15 AM EST 05/21/2025 3:23 AM EST us Lokesh Anderson MD LAB BLOOD ORDERABLES Final Resul t Performing Organization Address City/[facility] Co de Phone Number [facility] [address] [place] [address] * Phosphorus, Plasma (05/21/2025 3:15 AM EST) Phosphorus, Plasma 3.3 2.5 - 4.5 mg/dL 05/21/2025 3:51 AM EST [facility] Blood Venous blood specimen / Unknown Venipuncture / Unknown 05/21/2025 3:15 AM EST 05/21/2025 3:23 AM EST us Lokesh Anderson MD LAB BLOOD ORDERABLES Final Resul t [facility] [address] [place] [address] * Magnesium, Plasma (05/21/2025 3:15 AM EST) Magnesium, Plasma 1.9 1.9 - 2.4 mg/dL 05/21/2025 3:51 AM EST [facility] Blood Venous blood specimen / Unknown Venipuncture / Unknown 05/21/2025 3:15 AM EST 05/21/2025 3:23 AM EST us Lokesh Anderson MD LAB BLOOD ORDERABLES Final Resul t [facility] [address] [place] [address] * (ABNORMAL) CBC W/O Differential (05/21/2025 3:15 AM EST) WBC Count 18.72(H) 3.70 - 10.30 10*3/uL LAB HEMATOLOGY METHOD 05/21/2025 3:32 AM EST [facility] RBC Count 3.90 3.90 - 5.20 10*6/uL LAB HEMATOLOGY METHOD 05/21/2025 3:32 AM EST [facility] HGB 11.6 11.2 - 15.7 g/dL LAB HEMATOLOGY METHOD 05/21/2025 3:32 AM EST [facility] HCT 34.3 34.0 - 45.0 % LAB HEMATOLOGY METHOD 05/21/2025 3:32 AM EST [facility] Platelet Count 419(H) 155 - 369 10*3/uL LAB HEMATOLOGY METHOD 05/21/2025 3:32 AM EST [facility] MCV 88 79 - 98 fL LAB HEMATOLOGY METHOD 05/21/2025 3:32 AM EST [facility] MCH 29.7 26.0 - 32.0 pg LAB HEMATOLOGY METHOD 05/21/2025 3:32 AM EST [facility] MCHC 33.8 30.7 - 35.5 g/dL LAB HEMATOLOGY METHOD 05/21/2025 3:32 AM EST [facility] RDW 16.7(H) 11.5 - 14.5 % LAB HEMATOLOGY METHOD 05/21/2025 3:32 AM EST [facility] MPV 9.7 8.8 - 12.5 fL LAB HEMATOLOGY METHOD 05/21/2025 3:32 AM EST [facility] nRBC 0.0 <=0.0 per 100 WBCs LAB HEMATOLOGY METHOD 05/21/2025 3:32 AM EST [facility] Blood Venous blood specimen / Unknown Venipuncture / Unknown 05/21/2025 3:15 AM EST 05/21/2025 3:23 AM EST us Lokesh Anderson MD LAB BLOOD ORDERABLES Final Resul t [facility] [address] [place] [address] * (ABNORMAL) POCT glucose meter (05/20/2025 11:33 PM EST) POCT Glucose 198(H) 74 - 99 mg/dL 05/20/2025 11:35 PM EST [facility] Comment:Accuracy of a glucos e result obtained from a capillary whole blood specimen relies upon adequate, non-compromised capillary blood flow. If the capillary glucose result is not consistent with the patient's clinical signs and symptoms, glucose testing should be repeated with either an arterial or venous sample on the glucometer or sent to the main labortory for testing. Comment 05/20/2025 11:35 PM EST [facility] Livestock Commission Agent ID David Serrano 025 11:35 PM EST [facility] Device ID [id number] 05/20/2025 11:35 PM EST [facility] Specimen Type POC Capillary 05/20/2025 11:35 PM EST [facility] Blood Capillary blood specimen / Unknown 05/20/2025 11:33 PM EST 05/20/2025 11:35 PM EST us Lokesh Anderson MD LAB POINT OF CARE TE ST DOCKED DEVICE UNSOLICITED RESULTS Final Result Performing Organization Address City/[facility]/ZIP Co de Phone Number [facility] [address] [place] [address] * (ABNORMAL) POCT glucose meter (05/20/2025 8:52 PM EST) POCT Glucose 171(H) 74 - 99 mg/dL 05/20/2025 8:54 PM EST [facility] Comment:Accuracy of a glucos e result obtained from a capillary whole blood specimen relies upon adequate, non-compromised capillary blood flow. If the capillary glucose result is not consistent with the patient's clinical signs and symptoms, glucose testing should be repeated with either an arterial or venous sample on the glucometer or sent to the main labortory for testing. Comment 05/20/2025 8:54 PM EST [facility] Livestock Commission Agent ID David Serrano 025 8:54 PM EST [facility] Device ID [id number] 05/20/2025 8:54 PM EST [facility] Specimen Type POC Capillary 05/20/2025 8:54 PM EST [facility] Blood Capillary blood specimen / Unknown 05/20/2025 8:52 PM EST 05/20/2025 8:54 PM EST Lokesh Anderson MD LAB POINT OF CARE TE ST DOCKED DEVICE UNSOLICITED RESULTS Final Result [facility] [address] [place] [address] * CT Abdomen Pelvis w IV Contrast (05/20/2025 2:21 PM EST) Anatomical Region Laterality Modality Abdomen, Pelvis Computed Tomogra phy Impressions 05/20/2025 4:02 PM EST Interval removal of left upper quadrant surgical drain with fluid collection along the catheter tract and few adjacent locules of gas. Previously noted fluid collections along the pancreatic resection margin of continued decrease in size. Unchanged intrahepatic and extra hepatic biliary ductal dilatation with resolution of pneumobilia. Increased loculated left pleural effusion with worsening atelectasis. CRITICAL RESULT: No. COMMUNICATION: Per this written report. Drafted by Enriqueta Muñiz MD on 05/20/2025 3:48 PM Final report signed by Enriqueta Muñiz MD on 05/20/2025 4:02 PM Narrative 05/20/2025 4:02 PM EST CLINICAL INDICATION: Abdominal pain, post-op TECHNIQUE: Multiple axial CT images were obtained from lung bases through pubic symphysis following administration of IV contrast, Omnipaque 300, 100 mL. Reformatted images in the coronal and sagittal planes were generated from the axial data set to facilitate diagnostic accuracy. Total DLP (Dose-Length Product): 501.90 mGy.cm. Please note: The reported value represents the total of one or more individual components during the CT acquisition on this date and at this time, and as such, the same value may appear in more than one CT report depending on the interpreting/reporting physicians. COMPARISON: May 17, 2025, 3 days prior. FINDINGS: Lower Chest: Increased left loculated pleural effusion with worsening lower lung atelectasis. Resolution of right pleural effusion. Solid Abdominal Organs: Homogenous hepatic enhancement. Absent gallbladder. Redemonstrated intrahepatic and extra hepatic biliary ductal dilatation with resolution of pneumobilia. Changes of prior distal pancreatectomy and splenectomy. Redemonstrated fluid collections within the resection bed. Collection adjacent to the pancreatic suture margin measures 12 mm, previously 16 mm (4:114). Fluid collection in the left upper quadrant corresponding to site of interval removed surgical drain measures 3.6 cm with few adjacent locules of gas (4:98 and 87). Unremarkable bilateral adrenal glands and kidneys. No hydronephrosis. GI Tract/Mesentery/Peritoneum: Nondistended stomach. Tortuous orientation of the distal stomach/proximal duodenum. The large and small bowel are normal in caliber. Pelvic Viscera: Distended urinary bladder without abnormality. Unremarkable uterus. Lymph Nodes/Vasculature: No lymphadenopathy by CT size criteria. The aortoiliac vasculature is patent and normal in caliber. Free Fluid: No free fluid in the abdomen or pelvis. Musculoskeletal and Body Wall: No aggressive or suspicious findings. Procedure Note Enriqueta Muñiz MD - 05/20/2025 CLINICAL INDICATION: Abdominal pain, post-op TECHNIQUE: Multiple axial CT images were obtained from lung bases through pubicsymphysis following administration of IV contrast, Omnipaque 300, 100 mL.Reformatted images in the coronal and sagittal planes were generated fromthe axial data set to facilitate diagnostic accuracy. Total DLP (Dose-Length Product): 501.90 mGy.cm. Please note: The reportedvalue represents the total of one or more individual components during theCT acquisition on this date and at this time, and as such, the same valuemay appear in more than one CT report depending on theinterpreting/reporting physicians. COMPARISON: May 17, 2025, 3 days prior. FINDINGS: Lower Chest: Increased left loculated pleural effusion with worseninglower lung atelectasis. Resolution of right pleural effusion. Solid Abdominal Organs: Homogenous hepatic enhancement. Absentgallbladder. Redemonstrated intrahepatic and extra hepatic biliary ductaldilatation with resolution of pneumobilia. Changes of prior distalpancreatectomy and splenectomy. Redemonstrated fluid collections withinthe resection bed. Collection adjacent to the pancreatic suture marginmeasures 12 mm, previously 16 mm (4:114). Fluid collection in the leftupper quadrant corresponding to site of interval removed surgical drainmeasures 3.6 cm with few adjacent locules of gas (4:98 and 87).Unremarkable bilateral adrenal glands and kidneys. No hydronephrosis. GI Tract/Mesentery/Peritoneum: Nondistended stomach. Tortuous orientationof the distal stomach/proximal duodenum. The large and small bowel arenormal in caliber. Pelvic Viscera: Distended urinary bladder without abnormality.Unremarkable uterus. Lymph Nodes/Vasculature: No lymphadenopathy by CT size criteria. Theaortoiliac vasculature is patent and normal in caliber. Free Fluid: No free fluid in the abdomen or pelvis. Musculoskeletal and Body Wall: No aggressive or suspicious findings. IMPRESSION: Interval removal of left upper quadrant surgical drain with fluidcollection along the catheter tract and few adjacent locules of gas. Previously noted fluid collections along the pancreatic resection marginof continued decrease in size. Unchanged intrahepatic and extra hepatic biliary ductal dilatation withresolution of pneumobilia. Increased loculated left pleural effusion with worsening atelectasis. CRITICAL RESULT: No. COMMUNICATION: Per this written report. Drafted by Enriqueta Muñiz MD on 05/20/2025 3:48 PM Final report signed by Enriqueta Muñiz MD on 05/20/2025 4:02 PM us Lokesh Anderson MD IM CT PROCEDURES Final Result * PICC DOUBLE LUMEN (SMARTFORM LINK) (05/20/2025 9:05 AM EST) Narrative Beth Camacho RN - 05/20/2025 9:05 AM EST Beth Camacho RN 05/20/2025 9:50 AM Insert PICC line Date/Time: 05/20/2025 9:05 AM Performed by: Beth Camacho RN Authorized by: Lokesh Anderson MD [place] Protocol: Verbal consent obtained?: Yes Written consent obtained?: Yes Risks and benefits: Risks, benefits and alternatives were discussed Consent given by: Patient Patient states understanding of procedure being performed: Yes Patient's understanding of procedure matches consent: Yes Procedure consent matches procedure scheduled: Yes Relevant documents present and verified: Yes Test results available and properly labeled: Yes Site marked: Yes Imaging studies available: Yes Patient identity confirmed: Verbally with patient, arm band and provided demographic data Time out: Immediately prior to the procedure a time out was called Indications: Vascular access (TPN) Local anesthetic: Lidocaine 1% without epinephrine Sedation: Patient sedated: No Preparation: Skin prepped with 2% chlorhexidine Skin prep agent dried: Skin prep agent completely dried prior to procedure Sterile barriers: All five maximal sterile barriers used - gloves, gown, cap, mask and large sterile sheet Hand hygiene: Hand hygiene performed prior to catheter insertion Orientation: Right Location (Adult): Brachial vein Site selection rationale: VAt discussed site rotation to left arm, pt wishes to have picc in right arm again Catheter Lot #: [id number] Catheter guest service team leader: Titansan Catheter placed: Double lumen Catheter size: 4 Fr Catheter trimmed length: 38 Catheter threaded length: 36 Vein placed in: SVC Catheter cm indwellin Catheter cm outside: 2 Placement confirmed by: Yao 3CG technology Pre-procedure: Landmarks identified Ultrasound guidance: Yes Sterile ultrasound techniques: Sterile gel and sterile probe covers were used Number of attempts: 2 (attempted right basilic but unable to access vessel) Post-procedure: Adhesive securement device and sterile access caps placed on each lumen Dressing applied: CHG tegaderm Assessment: Blood return through all ports Patient tolerated the procedure well with no immediate complications.: Yes PICC kit educational material was given to the patient.: Yes Comments: Images to PACS Limb precaution armband to right arm Lokesh Anderson MD IV THERAPY ORDERABLES Final Resu lt * Triglycerides (05/20/2025 1:32 AM EST) Triglycerides, Plasma 119 <150 mg/dL 05/20/2025 2:45 PM EST [facility] Comment: Triglyceride Reference Range (age >17 years): Desirable: <150 mg/dL Borderline high: 150 to 199 mg/dL High: 200 to 499 mg/dL Very high: >499 mg/dL Increased risk of pancreatitis: >1000 mg/dL Fasting greater than or equal to 12 hours? Unknown 05/20/2025 2:45 PM EST [facility] Blood Venous blood specimen / Unknown Venipuncture / Unknown 05/20/2025 1:32 AM EST 05/20/2025 1:39 AM EST Katlyn Hopkins PETROGRAPHER LAB BLOOD ORDERABLES Final R esult [facility] [address] [place] [address] * (ABNORMAL) Comprehensive Metabolic Panel, Plasma (05/20/2025 1:32 AM EST) Glucose, Plasma 128(H) 74 - 99 mg/dL 05/20/2025 2:07 AM EST [facility] BUN, Plasma 9 8 - 23 mg/dL 05/20/2025 2:07 AM EST [facility] Creatinine, Plasma 0.53(L) 0.60 - 1.10 mg/dL 05/20/2025 2:07 AM EST [facility] BUN/Creatinine Ratio 17 05/20/2025 2:07 AM EST [facility] Sodium, Plasma 136 136 - 145 mmol/L 05/20/2025 2:07 AM EST [facility] Potassium, Plasma 4.6 3.6 - 4.9 mmol/L 05/20/2025 2:07 AM EST [facility] Chloride, Plasma 104 97 - 107 mmol/L 05/20/2025 2:07 AM EST [facility] CO2, Plasma 18(L) 22 - 29 mmol/L 05/20/2025 2:07 AM EST [facility] Anion Gap 14 6 - 16 mmol/L 05/20/2025 2:07 AM EST [facility] Total Calcium, Plasma 8.0(L) 8.9 - 10.2 mg/dL 05/20/2025 2:07 AM EST [facility] Total Protein 6.7 6.3 - 7.9 g/dL 05/20/2025 2:07 AM [facility] Albumin, Plasma 2.7(L) 3.5 - 5.2 g/dL 05/20/2025 2:07 AM EST [facility] AST, Plasma 21 10 - 35 U/L 05/20/2025 2:07 AM [facility] Comment:Hemolyzed, result ma y be falsely increased. ALT, Plasma 11 10 - 35 U/L 05/20/2025 2:07 AM EST [facility] Alkaline Phosphatase, Plasma 94 46 - 142 U/L 05/20/2025 2:07 AM EST [facility] Total Bilirubin, Plasma 0.5 0.2 - 1.1 mg/dL 05/20/2025 2:07 AM EST [facility] eGFRcr 99.0 mL/min/1.7 3m*2 05/20/2025 2:07 AM EST [facility] Comment:Reported eGFRcr in m L/min/1.73m2 is based the CKD-EPI 2020 equation that does not use a race coefficient. Blood Venous blood specimen / Unknown Venipuncture / Unknown 05/20/2025 1:32 AM EST 05/20/2025 1:39 AM EST Result Jayden Anderson MD LAB BLOOD ORDERABLES Final Resul t Performing Organization Address City/[facility] Co de Phone Number [facility] [address] [place] [address] * Phosphorus, Plasma (05/20/2025 1:32 AM EST) Phosphorus, Plasma 3.2 2.5 - 4.5 mg/dL 05/20/2025 2:07 AM EST [facility] Blood Venous blood specimen / Unknown Venipuncture / Unknown 05/20/2025 1:32 AM EST 05/20/2025 1:39 AM EST Result Jayden Anderson MD LAB BLOOD ORDERABLES Final Resul t Performing Organization Address City/[facility]/ZIP Co de Phone Number [facility] [address] [place] [address] * Magnesium, Plasma (05/20/2025 1:32 AM EST) Magnesium, Plasma 2.0 1.9 - 2.4 mg/dL 05/20/2025 2:07 AM EST [facility] Blood Venous blood specimen / Unknown Venipuncture / Unknown 05/20/2025 1:32 AM EST 05/20/2025 1:39 AM EST Result Jayden Anderson MD LAB BLOOD ORDERABLES Final Resul t [facility] [address] [place] [address] * (ABNORMAL) CBC W/O Differential (05/20/2025 1:32 AM EST) WBC Count 18.96(H) 3.70 - 10.30 10*3/uL LAB HEMATOLOGY METHOD 05/20/2025 1:49 AM EST [facility] RBC Count 4.53 3.90 - 5.20 10*6/uL LAB HEMATOLOGY METHOD 05/20/2025 1:49 AM EST [facility] HGB 13.1 11.2 - 15.7 g/dL LAB HEMATOLOGY METHOD 05/20/2025 1:49 AM EST [facility] HCT 39.1 34.0 - 45.0 % LAB HEMATOLOGY METHOD 05/20/2025 1:49 AM EST [facility] Platelet Count 479(H) 155 - 369 10*3/uL LAB HEMATOLOGY METHOD 05/20/2025 1:49 AM EST [facility] MCV 86 79 - 98 fL LAB HEMATOLOGY METHOD 05/20/2025 1:49 AM EST [facility] MCH 28.9 26.0 - 32.0 pg LAB HEMATOLOGY METHOD 05/20/2025 1:49 AM EST [facility] MCHC 33.5 30.7 - 35.5 g/dL LAB HEMATOLOGY METHOD 05/20/2025 1:49 AM EST [facility] RDW 16.4(H) 11.5 - 14.5 % LAB HEMATOLOGY METHOD 05/20/2025 1:49 AM EST [facility] MPV 10.0 8.8 - 12.5 fL LAB HEMATOLOGY METHOD 05/20/2025 1:49 AM EST [facility] nRBC 0.0 <=0.0 per 100 WBCs LAB HEMATOLOGY METHOD 05/20/2025 1:49 AM EST [facility] Blood Venous blood specimen / Unknown Venipuncture / Unknown 05/20/2025 1:32 AM EST 05/20/2025 1:39 AM EST Lokesh Anderson MD LAB BLOOD ORDERABLES Final Resul t [facility] [address] [place] [address] * ECG Adult (05/19/2025 7:40 PM EST) EKG DIAGNOSIS CLASS Abnormal MUSE ECG Ventricular Rate 92 BPM MUSE ECG Atrial Rate 92 BPM MUSE ECG [place] Interval 124 ms MUSE ECG QRSD Interval 80 ms MUSE ECG QT Interval 344 ms MUSE ECG QTC Interval 425 ms MUSE ECG P [place] 53 degrees MUSE ECG R [place] -21 degrees MUSE ECG T Wave [place] 50 degrees MUSE ECG Diagnosis Normal sinus rhythm MUSE ECG Diagnosis Leftward axis MUSE ECG Diagnosis Poor R-wave progression Cannot rule out Anterior infarct , age undetermined MUSE ECG Diagnosis Abnormal ECG MUSE ECG Diagnosis Need clinical information and correlation MUSE ECG Diagnosis MUSE ECG Diagnosis Confirmed by Sampson Reza ([id number]) on 05/19/2025 8:42:58 PM MUSE ECG 05/19/2025 7:40 PM EST 05/19/2025 8:42 PM EST us Lokesh Anderson MD ECG ORDERABLES Final Result MUSE ECG * Troponin T, High Sensitivity, 2 Hour, Plasma (05/19/2025 10:59 AM EST) Troponin T, High Sensitivity, 2 Hour 9 <14 ng/L 05/19/2025 11:37 AM EST [facility] Blood Venous blood specimen / Unknown Venipuncture / Unknown 05/19/2025 10:59 AM EST 05/19/2025 11:09 AM EST us Conrado Park APRN LAB BLOOD ORDERABLES Final Re sult [facility] [address] [place] [address] * Troponin T, High Sensitivity, 0 Hour Plasma, Reflex to 2 Hour (05/19/2025 8:12 AM EST) Troponin T, High Sensitivity, 0 Hour 7 <14 ng/L 05/19/2025 8:50 AM EST [facility] Blood Venous blood specimen / Unknown Venipuncture / Unknown 05/19/2025 8:12 AM EST 05/19/2025 8:19 AM EST us Conrado Park APRN LAB BLOOD ORDERABLES Final Re sult Performing Organization Address City/[facility]/ZIP Co de Phone Number [facility] [address] [place] [address] * ECG Adult (05/19/2025 7:59 AM EST) EKG DIAGNOSIS CLASS Abnormal MUSE ECG Ventricular Rate 72 BPM MUSE ECG Atrial Rate 72 BPM MUSE ECG AZ Interval 146 ms MUSE ECG QRSD Interval 90 ms MUSE ECG QT Interval 430 ms MUSE ECG QTC Interval 470 ms MUSE ECG P [place] 32 degrees MUSE ECG R [place] -20 degrees MUSE ECG T Wave [place] 29 degrees MUSE ECG Diagnosis Sinus rhythm with premature atrial complexes with aberrant conduction MUSE ECG Diagnosis Possible Left atrial enlargement MUSE ECG Diagnosis Poor R-wave progression Cannot rule out Anterolateral infarct MUSE ECG Diagnosis Nonspecific ST abnormality MUSE ECG Diagnosis Abnormal ECG MUSE ECG Diagnosis MUSE ECG Diagnosis Confirmed by Gabriela Land ([id number]) on 05/19/2025 4:32:29 PM MUSE ECG 05/19/2025 7:59 AM EST 05/19/2025 4:32 PM EST Conrado Luis Vivian PETROGRAPHER ECG ORDERABLES Final Result Performing Organization Address [facility] Co de Phone Number MUSE ECG * (ABNORMAL) Comprehensive Metabolic Panel, Plasma (05/19/2025 4:22 AM EST) Glucose, Plasma 132(H) 74 - 99 mg/dL 05/19/2025 5:01 AM EST [facility] BUN, Plasma 8 8 - 23 mg/dL 05/19/2025 5:01 AM EST [facility] Creatinine, Plasma 0.47(L) 0.60 - 1.10 mg/dL 05/19/2025 5:01 AM EST [facility] BUN/Creatinine Ratio 17 05/19/2025 5:01 AM EST [facility] Sodium, Plasma 136 136 - 145 mmol/L 05/19/2025 5:01 AM EST [facility] Potassium, Plasma 3.5(L) 3.6 - 4.9 mmol/L 05/19/2025 5:01 AM EST [facility] Chloride, Plasma 106 97 - 107 mmol/L 05/19/2025 5:01 AM EST [facility] CO2, Plasma 21(L) 22 - 29 mmol/L 05/19/2025 5:01 AM EST [facility] Anion Gap 9 6 - 16 mmol/L 05/19/2025 5:01 AM EST [facility] Total Calcium, Plasma 7.9(L) 8.9 - 10.2 mg/dL 05/19/2025 5:01 AM EST [facility] Total Protein 6.4 6.3 - 7.9 g/dL 05/19/2025 5:01 AM EST [facility] Albumin, Plasma 2.4(L) 3.5 - 5.2 g/dL 05/19/2025 5:01 AM EST [facility] AST, Plasma 27 10 - 35 U/L 05/19/2025 5:01 AM EST [facility] ALT, Plasma 14 10 - 35 U/L 05/19/2025 5:01 AM EST [facility] Alkaline Phosphatase, Plasma 92 46 - 142 U/L 05/19/2025 5:01 AM EST [facility] Total Bilirubin, Plasma 0.3 0.2 - 1.1 mg/dL 05/19/2025 5:01 AM EST [facility] eGFRcr 101.9 mL/min/1.7 3m*2 05/19/2025 5:01 AM EST [facility] Comment:Reported eGFRcr in m L/min/1.73m2 is based the CKD-EPI 2020 equation that does not use a race coefficient. Blood Venous blood specimen / Unknown Venipuncture / Unknown 05/19/2025 4:22 AM EST 05/19/2025 4:33 AM EST us Lokesh Anderson MD LAB BLOOD ORDERABLES Final Resul t [facility] [address] [place] [address] * Phosphorus, Plasma (05/19/2025 4:22 AM EST) Phosphorus, Plasma 2.6 2.5 - 4.5 mg/dL 05/19/2025 5:01 AM EST [facility] Blood Venous blood specimen / Unknown Venipuncture / Unknown 05/19/2025 4:22 AM EST 05/19/2025 4:33 AM EST us Lokesh Anderson MD LAB BLOOD ORDERABLES Final Resul t Performing Organization Address City/[facility]/ZIP Co de Phone Number [facility] [address] [place] [address] * (ABNORMAL) Magnesium, Plasma (05/19/2025 4:22 AM EST) Magnesium, Plasma 1.7(L) 1.9 - 2.4 mg/dL 05/19/2025 5:01 AM EST [facility] Blood Venous blood specimen / Unknown Venipuncture / Unknown 05/19/2025 4:22 AM EST 05/19/2025 4:33 AM EST us Lokesh Anderson MD LAB BLOOD ORDERABLES Final Resul t Performing Organization Address City/[facility] Co de Phone Number [facility] [address] [place] [address] * (ABNORMAL) CBC W/O Differential (05/19/2025 4:22 AM EST) WBC Count 10.29 3.70 - 10.30 10*3/uL LAB HEMATOLOGY METHOD 05/19/2025 4:48 AM EST [facility] RBC Count 3.85(L) 3.90 - 5.20 10*6/uL LAB HEMATOLOGY METHOD 05/19/2025 4:48 AM EST [facility] HGB 11.3 11.2 - 15.7 g/dL LAB HEMATOLOGY METHOD 05/19/2025 4:48 AM EST [facility] HCT 33.6(L) 34.0 - 45.0 % LAB HEMATOLOGY METHOD 05/19/2025 4:48 AM EST [facility] Platelet Count 380(H) 155 - 369 10*3/uL LAB HEMATOLOGY METHOD 05/19/2025 4:48 AM EST [facility] MCV 87 79 - 98 fL LAB HEMATOLOGY METHOD 05/19/2025 4:48 AM EST [facility] MCH 29.4 26.0 - 32.0 pg LAB HEMATOLOGY METHOD 05/19/2025 4:48 AM EST [facility] MCHC 33.6 30.7 - 35.5 g/dL LAB HEMATOLOGY METHOD 05/19/2025 4:48 AM EST [facility] RDW 15.9(H) 11.5 - 14.5 % LAB HEMATOLOGY METHOD 05/19/2025 4:48 AM EST [facility] MPV 9.9 8.8 - 12.5 fL LAB HEMATOLOGY METHOD 05/19/2025 4:48 AM EST [facility] nRBC 0.0 <=0.0 per 100 WBCs LAB HEMATOLOGY METHOD 05/19/2025 4:48 AM EST [facility] Blood Venous blood specimen / Unknown Venipuncture / Unknown 05/19/2025 4:22 AM EST 05/19/2025 4:35 AM EST us Lokesh Anderson MD LAB BLOOD ORDERABLES Final Resul t [facility] [address] [place] [address] * (ABNORMAL) Comprehensive Metabolic Panel, Plasma (05/18/2025 4:33 AM EST) Glucose, Plasma 134(H) 74 - 99 mg/dL 05/18/2025 5:13 AM EST [facility] BUN, Plasma 6(L) 8 - 23 mg/dL 05/18/2025 5:13 AM EST [facility] Creatinine, Plasma 0.54(L) 0.60 - 1.10 mg/dL 05/18/2025 5:13 AM EST [facility] BUN/Creatinine Ratio 11 05/18/2025 5:13 AM EST [facility] Sodium, Plasma 139 136 - 145 mmol/L 05/18/2025 5:13 AM EST [facility] Potassium, Plasma 3.9 3.6 - 4.9 mmol/L 05/18/2025 5:13 AM EST [facility] Chloride, Plasma 108(H) 97 - 107 mmol/L 05/18/2025 5:13 AM EST [facility] CO2, Plasma 21(L) 22 - 29 mmol/L 05/18/2025 5:13 AM EST [facility] Anion Gap 10 6 - 16 mmol/L 05/18/2025 5:13 AM EST [facility] Total Calcium, Plasma 7.8(L) 8.9 - 10.2 mg/dL 05/18/2025 5:13 AM EST [facility] Total Protein 6.1(L) 6.3 - 7.9 g/dL 05/18/2025 5:13 AM EST [facility] Albumin, Plasma 2.4(L) 3.5 - 5.2 g/dL 05/18/2025 5:13 AM EST [facility] AST, Plasma 33 10 - 35 U/L 05/18/2025 5:13 AM EST [facility] ALT, Plasma 13 10 - 35 U/L 05/18/2025 5:13 AM EST [facility] Alkaline Phosphatase, Plasma 97 46 - 142 U/L 05/18/2025 5:13 AM EST [facility] Total Bilirubin, Plasma 0.4 0.2 - 1.1 mg/dL 05/18/2025 5:13 AM EST [facility] eGFRcr 98.6 mL/min/1.7 3m*2 05/18/2025 5:13 AM EST [facility] Comment:Reported eGFRcr in m L/min/1.73m2 is based the CKD-EPI 2020 equation that does not use a race coefficient. Blood Venous blood specimen / Unknown Venipuncture / Unknown 05/18/2025 4:33 AM EST 05/18/2025 4:43 AM EST us Lokesh Anderson MD LAB BLOOD ORDERABLES Final Resul t [facility] [address] [place] [address] * Phosphorus, Plasma (05/18/2025 4:33 AM EST) Phosphorus, Plasma 2.5 2.5 - 4.5 mg/dL 05/18/2025 5:13 AM EST [facility] Blood Venous blood specimen / Unknown Venipuncture / Unknown 05/18/2025 4:33 AM EST 05/18/2025 4:43 AM EST us Lokesh Anderson MD LAB BLOOD ORDERABLES Final Resul t Performing Organization Address City/[facility]/ZIP Co de Phone Number [facility] [address] [place] [address] * Magnesium, Plasma (05/18/2025 4:33 AM EST) Magnesium, Plasma 2.1 1.9 - 2.4 mg/dL 05/18/2025 5:13 AM EST [facility] Blood Venous blood specimen / Unknown Venipuncture / Unknown 05/18/2025 4:33 AM EST 05/18/2025 4:43 AM EST us Lokesh Anderson MD LAB BLOOD ORDERABLES Final Resul t Performing Organization Address City/[facility] Co de Phone Number [facility] [address] [place] [address] * (ABNORMAL) CBC W/O Differential (05/18/2025 4:33 AM EST) Pathologist [facility] WBC Count 9.04 3.70 - 10.30 10*3/uL LAB HEMATOLOGY METHOD 05/18/2025 4:52 AM EST [facility] RBC Count 3.72(L) 3.90 - 5.20 10*6/uL LAB HEMATOLOGY METHOD 05/18/2025 4:52 AM EST [facility] HGB 10.9(L) 11.2 - 15.7 g/dL LAB HEMATOLOGY METHOD 05/18/2025 4:52 AM EST [facility] HCT 32.1(L) 34.0 - 45.0 % LAB HEMATOLOGY METHOD 05/18/2025 4:52 AM EST [facility] Platelet Count 355 155 - 369 10*3/uL LAB HEMATOLOGY METHOD 05/18/2025 4:52 AM EST [facility] MCV 86 79 - 98 fL LAB HEMATOLOGY METHOD 05/18/2025 4:52 AM EST [facility] MCH 29.3 26.0 - 32.0 pg LAB HEMATOLOGY METHOD 05/18/2025 4:52 AM EST [facility] MCHC 34.0 30.7 - 35.5 g/dL LAB HEMATOLOGY METHOD 05/18/2025 4:52 AM EST [facility] RDW 15.8(H) 11.5 - 14.5 % LAB HEMATOLOGY METHOD 05/18/2025 4:52 AM EST [facility] MPV 10.2 8.8 - 12.5 fL LAB HEMATOLOGY METHOD 05/18/2025 4:52 AM EST [facility] nRBC 0.0 <=0.0 per 100 WBCs LAB HEMATOLOGY METHOD 05/18/2025 4:52 AM EST [facility] Blood Venous blood specimen / Unknown Venipuncture / Unknown 05/18/2025 4:33 AM EST 05/18/2025 4:43 AM EST Lokesh Anderson MD LAB BLOOD ORDERABLES Final Resul t [facility] [address] [place] [address] * CT Abdomen Pelvis w IV Contrast (05/17/2025 10:15 AM EST) Anatomical Region Laterality Modality Abdomen, Pelvis Computed Tomogra phy Impressions 05/17/2025 12:55 PM EST Decreasing pancreatic bed fluid collection, status post pigtail catheter placement CRITICAL RESULT: No. COMMUNICATION: Per this written report. Drafted by River Garcia MD on 05/17/2025 12:47 PM Final report signed by River Garcia MD on 05/17/2025 12:55 PM Narrative 05/17/2025 12:55 PM EST CLINICAL INDICATION: IR drain placed recently having minimal output despite patient not improving; FU fluid TECHNIQUE: Multiple axial CT images were obtained from lung bases through pubic symphysis following administration of IV contrast, Omnipaque 300, 100 mL. Delayed images of abdomen and kidneys were also obtained. Reformatted images in the coronal and sagittal planes were generated from the axial data set to facilitate diagnostic accuracy. Total DLP (Dose-Length Product): 415.35 mGy.cm. Please note: The reported value represents the total of one or more individual components during the CT acquisition on this date and at this time, and as such, the same value may appear in more than one CT report depending on the interpreting/reporting physicians. COMPARISON: CT from May 13, 2025 FINDINGS: Lower Chest: Moderate left and small right pleural pleural effusions Solid Abdominal Organs: Liver contour is smooth. No suspicious focal liver lesions. Pneumobilia is noted. Prior cholecystectomy. Ectatic common bile duct is noted. Distal pancreatectomy and splenectomy noted. Previously noted fluid collection within the pancreatic bed has largely resolved, status post pigtail catheter placement. Small (1.6 x 1.5 cm) fluid collection is noted within the anterior resection bed close to the pancreatic stump. Pancreatic remnant is unremarkable.. GI Tract/Mesentery/Peritoneum: The large and small bowel appear normal in caliber. No evidence of inflammatory change. No suspicious peritoneal/mesenteric findings. Pelvic Viscera: Distended urinary bladder. No pelvic mass. Lymph Nodes/Vasculature: Borderline enlarged common hepatic region lymph nodes are unchanged. Patent portal veins. Free Fluid: Trace ascites Musculoskeletal and Body Wall: No clearly aggressive bone lesions Procedure Note River Garcia MD - 05/17/2025 CLINICAL INDICATION: IR drain placed recently having minimal output despite patient notimproving; FU fluid TECHNIQUE: Multiple axial CT images were obtained from lung bases through pubicsymphysis following administration of IV contrast, Omnipaque 300, 100 mL.Delayed images of abdomen and kidneys were also obtained. Reformattedimages in the coronal and sagittal planes were generated from the axialdata set to facilitate diagnostic accuracy. Total DLP (Dose-Length Product): 415.35 mGy.cm. Please note: The reportedvalue represents the total of one or more individual components during theCT acquisition on this date and at this time, and as such, the same valuemay appear in more than one CT report depending on theinterpreting/reporting physicians. COMPARISON: CT from May 13, 2025 FINDINGS: Lower Chest: Moderate left and small right pleural pleural effusions Solid Abdominal Organs: Liver contour is smooth. No suspicious focal liverlesions. Pneumobilia is noted. Prior cholecystectomy. Ectatic common bileduct is noted. Distal pancreatectomy and splenectomy noted. Previouslynoted fluid collection within the pancreatic bed has largely resolved,status post pigtail catheter placement. Small (1.6 x 1.5 cm) fluidcollection is noted within the anterior resection bed close to thepancreatic stump. Pancreatic remnant is unremarkable.. GI Tract/Mesentery/Peritoneum: The large and small bowel appear normal incaliber. No evidence of inflammatory change. No suspiciousperitoneal/mesenteric findings. Pelvic Viscera: Distended urinary bladder. No pelvic mass. Lymph Nodes/Vasculature: Borderline enlarged common hepatic region lymphnodes are unchanged. Patent portal veins. Free Fluid: Trace ascites Musculoskeletal and Body Wall: No clearly aggressive bone lesions IMPRESSION: Decreasing pancreatic bed fluid collection, status post pigtail catheterplacement CRITICAL RESULT: No. COMMUNICATION: Per this written report. Drafted by River Garcia MD on 05/17/2025 12:47 PM Final report signed by River Garcia MD on 05/17/2025 12:55 PM Lokesh Anderson MD IMG CT PROCEDURES Final Result * (ABNORMAL) Comprehensive Metabolic Panel, Plasma (05/17/2025 12:03 AM EST) Glucose, Plasma 123(H) 74 - 99 mg/dL 05/17/2025 12:49 AM EST [facility] BUN, Plasma 8 8 - 23 mg/dL 05/17/2025 12:49 AM EST [facility] Creatinine, Plasma 0.54(L) 0.60 - 1.10 mg/dL 05/17/2025 12:49 AM EST [facility] BUN/Creatinine Ratio 15 05/17/2025 12:49 AM EST [facility] Sodium, Plasma 139 136 - 145 mmol/L 05/17/2025 12:49 AM EST [facility] Potassium, Plasma 3.7 3.6 - 4.9 mmol/L 05/17/2025 12:49 AM EST [facility] Chloride, Plasma 106 97 - 107 mmol/L 05/17/2025 12:49 AM EST [facility] CO2, Plasma 21(L) 22 - 29 mmol/L 05/17/2025 12:49 AM EST [facility] Anion Gap 12 6 - 16 mmol/L 05/17/2025 12:49 AM EST [facility] Total Calcium, Plasma 7.7(L) 8.9 - 10.2 mg/dL 05/17/2025 12:49 AM EST [facility] Total Protein 5.8(L) 6.3 - 7.9 g/dL 05/17/2025 12:49 AM EST [facility] Albumin, Plasma 2.3(L) 3.5 - 5.2 g/dL 05/17/2025 12:49 AM EST [facility] AST, Plasma 25 10 - 35 U/L 05/17/2025 12:49 AM EST [facility] ALT, Plasma 10 10 - 35 U/L 05/17/2025 12:49 AM EST [facility] Alkaline Phosphatase, Plasma 100 46 - 142 U/L 05/17/2025 12:49 AM EST [facility] Total Bilirubin, Plasma 0.4 0.2 - 1.1 mg/dL 05/17/2025 12:49 AM EST [facility] eGFRcr 98.6 mL/min/1.7 3m*2 05/17/2025 12:49 AM EST [facility] Comment:Reported eGFRcr in m L/min/1.73m2 is based the CKD-EPI 2020 equation that does not use a race coefficient. Blood Venous blood specimen / Unknown Venipuncture / Unknown 05/17/2025 12:03 AM EST 05/17/2025 12:17 AM EST us Lokesh Anderson MD LAB BLOOD ORDERABLES Final Resul t [facility] [address] [place] [address] * Phosphorus, Plasma (05/17/2025 12:03 AM EST) Phosphorus, Plasma 3.4 2.5 - 4.5 mg/dL 05/17/2025 12:49 AM EST [facility] Blood Venous blood specimen / Unknown Venipuncture / Unknown 05/17/2025 12:03 AM EST 05/17/2025 12:17 AM EST us Lokesh Anderson MD LAB BLOOD ORDERABLES Final Resul t [facility] [address] [place] [address] * (ABNORMAL) Magnesium, Plasma (05/17/2025 12:03 AM EST) Magnesium, Plasma 1.7(L) 1.9 - 2.4 mg/dL 05/17/2025 12:49 AM EST [facility] Blood Venous blood specimen / Unknown Venipuncture / Unknown 05/17/2025 12:03 AM EST 05/17/2025 12:17 AM EST Lokesh Anderson MD LAB BLOOD ORDERABLES Final Resul t Performing Organization Address City/[facility]/ZIP Co de Phone Number [facility] [address] [place] [address] * (ABNORMAL) CBC W/O Differential (05/17/2025 12:03 AM EST) Pathologist [facility] WBC Count 10.73(H) 3.70 - 10.30 10*3/uL LAB HEMATOLOGY METHOD 05/17/2025 12:28 AM EST [facility] RBC Count 3.84(L) 3.90 - 5.20 10*6/uL LAB HEMATOLOGY METHOD 05/17/2025 12:28 AM EST [facility] HGB 11.2 11.2 - 15.7 g/dL LAB HEMATOLOGY METHOD 05/17/2025 12:28 AM EST [facility] HCT 33.3(L) 34.0 - 45.0 % LAB HEMATOLOGY METHOD 05/17/2025 12:28 AM EST [facility] Platelet Count 329 155 - 369 10*3/uL LAB HEMATOLOGY METHOD 05/17/2025 12:28 AM EST [facility] MCV 87 79 - 98 fL LAB HEMATOLOGY METHOD 05/17/2025 12:28 AM EST [facility] MCH 29.2 26.0 - 32.0 pg LAB HEMATOLOGY METHOD 05/17/2025 12:28 AM EST [facility] MCHC 33.6 30.7 - 35.5 g/dL LAB HEMATOLOGY METHOD 05/17/2025 12:28 AM EST [facility] RDW 15.5(H) 11.5 - 14.5 % LAB HEMATOLOGY METHOD 05/17/2025 12:28 AM EST [facility] MPV 10.5 8.8 - 12.5 fL LAB HEMATOLOGY METHOD 05/17/2025 12:28 AM EST [facility] nRBC 0.0 <=0.0 per 100 WBCs LAB HEMATOLOGY METHOD 05/17/2025 12:28 AM EST [facility] Blood Venous blood specimen / Unknown Venipuncture / Unknown 05/17/2025 12:03 AM EST 05/17/2025 12:18 AM EST us Lokesh Anderson MD LAB BLOOD ORDERABLES Final Resul t Performing Organization Address City/[facility]/ZIP Co de Phone Number [facility] [address] [place] [address] * (ABNORMAL) Prealbumin (05/16/2025 12:20 AM EST) Prealbumin, Plasma 3.3(L) 20.0 - 41.0 mg/dL 05/16/2025 5:39 PM EST [facility] Blood Venous blood specimen / Unknown Venipuncture / Unknown 05/16/2025 12:20 AM EST 05/16/2025 12:30 AM EST us Lokesh Anderson MD LAB BLOOD ORDERABLES Final Resul t [facility] [address] [place] [address] * (ABNORMAL) Comprehensive Metabolic Panel, Plasma (05/16/2025 12:20 AM EST) Glucose, Plasma 110(H) 74 - 99 mg/dL 05/16/2025 12:58 AM EST [facility] BUN, Plasma 11 8 - 23 mg/dL 05/16/2025 12:58 AM EST [facility] Creatinine, Plasma 0.55(L) 0.60 - 1.10 mg/dL 05/16/2025 12:58 AM EST [facility] BUN/Creatinine Ratio 20 05/16/2025 12:58 AM EST [facility] Sodium, Plasma 137 136 - 145 mmol/L 05/16/2025 12:58 AM EST [facility] Potassium, Plasma 3.2(L) 3.6 - 4.9 mmol/L 05/16/2025 12:58 AM EST [facility] Chloride, Plasma 104 97 - 107 mmol/L 05/16/2025 12:58 AM EST [facility] CO2, Plasma 25 22 - 29 mmol/L 05/16/2025 12:58 AM EST [facility] Anion Gap 8 6 - 16 mmol/L 05/16/2025 12:58 AM EST [facility] Total Calcium, Plasma 7.7(L) 8.9 - 10.2 mg/dL 05/16/2025 12:58 AM EST [facility] Total Protein 5.9(L) 6.3 - 7.9 g/dL 05/16/2025 12:58 AM EST [facility] Albumin, Plasma 2.4(L) 3.5 - 5.2 g/dL 05/16/2025 12:58 AM EST [facility] AST, Plasma 30 10 - 35 U/L 05/16/2025 12:58 AM EST [facility] ALT, Plasma 16 10 - 35 U/L 05/16/2025 12:58 AM EST [facility] Alkaline Phosphatase, Plasma 106 46 - 142 U/L 05/16/2025 12:58 AM EST [facility] Total Bilirubin, Plasma 0.5 0.2 - 1.1 mg/dL 05/16/2025 12:58 AM EST [facility] eGFRcr 98.1 mL/min/1.7 3m*2 05/16/2025 12:58 AM EST [facility] Comment:Reported eGFRcr in m L/min/1.73m2 is based the CKD-EPI 2020 equation that does not use a race coefficient. Blood Venous blood specimen / Unknown Venipuncture / Unknown 05/16/2025 12:20 AM EST 05/16/2025 12:30 AM EST us Lokesh Anderson MD LAB BLOOD ORDERABLES Final Resul t [facility] [address] [place] [address] * (ABNORMAL) Phosphorus, Plasma (05/16/2025 12:20 AM EST) Phosphorus, Plasma 1.8(L) 2.5 - 4.5 mg/dL 05/16/2025 12:58 AM EST [facility] Blood Venous blood specimen / Unknown Venipuncture / Unknown 05/16/2025 12:20 AM EST 05/16/2025 12:30 AM EST us Lokesh Anderson MD LAB BLOOD ORDERABLES Final Resul t [facility] [address] [place] [address] * Magnesium, Plasma (05/16/2025 12:20 AM EST) Magnesium, Plasma 2.0 1.9 - 2.4 mg/dL 05/16/2025 12:58 AM EST [facility] Blood Venous blood specimen / Unknown Venipuncture / Unknown 05/16/2025 12:20 AM EST 05/16/2025 12:30 AM EST us Lokesh Anderson MD LAB BLOOD ORDERABLES Final Resul t Performing Organization Address City/[facility]/ZIP Co de Phone Number [facility] [address] [place] [address] * (ABNORMAL) CBC W/O Differential (05/16/2025 12:20 AM EST) WBC Count 14.66(H) 3.70 - 10.30 10*3/uL LAB HEMATOLOGY METHOD 05/16/2025 12:39 AM EST [facility] RBC Count 3.81(L) 3.90 - 5.20 10*6/uL LAB HEMATOLOGY METHOD 05/16/2025 12:39 AM EST [facility] HGB 11.0(L) 11.2 - 15.7 g/dL LAB HEMATOLOGY METHOD 05/16/2025 12:39 AM EST [facility] HCT 33.1(L) 34.0 - 45.0 % LAB HEMATOLOGY METHOD 05/16/2025 12:39 AM EST [facility] Platelet Count 301 155 - 369 10*3/uL LAB HEMATOLOGY METHOD 05/16/2025 12:39 AM EST [facility] MCV 87 79 - 98 fL LAB HEMATOLOGY METHOD 05/16/2025 12:39 AM EST [facility] MCH 28.9 26.0 - 32.0 pg LAB HEMATOLOGY METHOD 05/16/2025 12:39 AM EST [facility] MCHC 33.2 30.7 - 35.5 g/dL LAB HEMATOLOGY METHOD 05/16/2025 12:39 AM EST [facility] RDW 15.3(H) 11.5 - 14.5 % LAB HEMATOLOGY METHOD 05/16/2025 12:39 AM EST [facility] MPV 10.4 8.8 - 12.5 fL LAB HEMATOLOGY METHOD 05/16/2025 12:39 AM EST [facility] nRBC 0.0 <=0.0 per 100 WBCs LAB HEMATOLOGY METHOD 05/16/2025 12:39 AM EST [facility] Blood Venous blood specimen / Unknown Venipuncture / Unknown 05/16/2025 12:20 AM EST 05/16/2025 12:32 AM EST us Lokesh Anderson MD LAB BLOOD ORDERABLES Final Resul t [facility] [address] [place] [address] * (ABNORMAL) Comprehensive Metabolic Panel, Plasma (05/15/2025 2:18 AM EST) Glucose, Plasma 160(H) 74 - 99 mg/dL 05/15/2025 2:55 AM EST [facility] BUN, Plasma 12 8 - 23 mg/dL 05/15/2025 2:55 AM EST [facility] Creatinine, Plasma 0.72 0.60 - 1.10 mg/dL 05/15/2025 2:55 AM EST [facility] BUN/Creatinine Ratio 17 05/15/2025 2:55 AM EST [facility] Sodium, Plasma 136 136 - 145 mmol/L 05/15/2025 2:55 AM EST [facility] Potassium, Plasma 3.2(L) 3.6 - 4.9 mmol/L 05/15/2025 2:55 AM EST [facility] Chloride, Plasma 102 97 - 107 mmol/L 05/15/2025 2:55 AM EST [facility] CO2, Plasma 24 22 - 29 mmol/L 05/15/2025 2:55 AM EST [facility] Anion Gap 10 6 - 16 mmol/L 05/15/2025 2:55 AM EST [facility] Total Calcium, Plasma 8.0(L) 8.9 - 10.2 mg/dL 05/15/2025 2:55 AM EST [facility] Total Protein 6.0(L) 6.3 - 7.9 g/dL 05/15/2025 2:55 AM EST [facility] Albumin, Plasma 2.5(L) 3.5 - 5.2 g/dL 05/15/2025 2:55 AM EST [facility] AST, Plasma 31 10 - 35 U/L 05/15/2025 2:55 AM EST [facility] ALT, Plasma 18 10 - 35 U/L 05/15/2025 2:55 AM EST [facility] Alkaline Phosphatase, Plasma 102 46 - 142 U/L 05/15/2025 2:55 AM EST [facility] Total Bilirubin, Plasma 0.7 0.2 - 1.1 mg/dL 05/15/2025 2:55 AM EST [facility] eGFRcr 89.5 mL/min/1.7 3m*2 05/15/2025 2:55 AM EST [facility] Comment:Reported eGFRcr in m L/min/1.73m2 is based the CKD-EPI 2020 equation that does not use a race coefficient. Blood Venous blood specimen / Unknown Venipuncture / Unknown 05/15/2025 2:18 AM EST 05/15/2025 2:27 AM EST us Conrado Park APRN LAB BLOOD ORDERABLES Final Re sult [facility] [address] [place] [address] * (ABNORMAL) Magnesium, Plasma (05/15/2025 2:18 AM EST) Magnesium, Plasma 1.4(L) 1.9 - 2.4 mg/dL 05/15/2025 2:55 AM EST [facility] Blood Venous blood specimen / Unknown Venipuncture / Unknown 05/15/2025 2:18 AM EST 05/15/2025 2:27 AM EST us Conradojohn paul Park PETROGRAPHER LAB BLOOD ORDERABLES Final Re sult Performing Organization Address City/[facility]/ZIP Co de Phone Number [facility] [address] [place] [address] * Phosphorus, Plasma (05/15/2025 2:18 AM EST) Phosphorus, Plasma 3.3 2.5 - 4.5 mg/dL 05/15/2025 2:55 AM EST [facility] Blood Venous blood specimen / Unknown Venipuncture / Unknown 05/15/2025 2:18 AM EST 05/15/2025 2:27 AM EST us Conrado G Vivian SILVAN LAB BLOOD ORDERABLES Final Re sult Performing Organization Address City/[facility]/ZIP Co de Phone Number [facility] [address] [place] [address] * (ABNORMAL) CBC W/O Differential (05/15/2025 2:18 AM EST) WBC Count 18.33(H) 3.70 - 10.30 10*3/uL LAB HEMATOLOGY METHOD 05/15/2025 2:34 AM EST [facility] RBC Count 3.67(L) 3.90 - 5.20 10*6/uL LAB HEMATOLOGY METHOD 05/15/2025 2:34 AM EST [facility] HGB 11.0(L) 11.2 - 15.7 g/dL LAB HEMATOLOGY METHOD 05/15/2025 2:34 AM EST [facility] HCT 32.1(L) 34.0 - 45.0 % LAB HEMATOLOGY METHOD 05/15/2025 2:34 AM EST [facility] Platelet Count 268 155 - 369 10*3/uL LAB HEMATOLOGY METHOD 05/15/2025 2:34 AM EST [facility] MCV 88 79 - 98 fL LAB HEMATOLOGY METHOD 05/15/2025 2:34 AM EST [facility] MCH 30.0 26.0 - 32.0 pg LAB HEMATOLOGY METHOD 05/15/2025 2:34 AM EST [facility] MCHC 34.3 30.7 - 35.5 g/dL LAB HEMATOLOGY METHOD 05/15/2025 2:34 AM EST [facility] RDW 14.9(H) 11.5 - 14.5 % LAB HEMATOLOGY METHOD 05/15/2025 2:34 AM EST [facility] MPV 10.1 8.8 - 12.5 fL LAB HEMATOLOGY METHOD 05/15/2025 2:34 AM EST [facility] nRBC 0.0 <=0.0 per 100 WBCs LAB HEMATOLOGY METHOD 05/15/2025 2:34 AM EST [facility] Blood Venous blood specimen / Unknown Venipuncture / Unknown 05/15/2025 2:18 AM EST 05/15/2025 2:27 AM EST us Conrado Park APRN LAB BLOOD ORDERABLES Final Re sult [facility] [address] [place] [address] * (ABNORMAL) POCT glucose meter (05/14/2025 7:59 PM EST) POCT Glucose 101(H) 74 - 99 mg/dL 05/14/2025 8:02 PM EST [facility] Comment:Accuracy of a glucos e result obtained from a capillary whole blood specimen relies upon adequate, non-compromised capillary blood flow. If the capillary glucose result is not consistent with the patient's clinical signs and symptoms, glucose testing should be repeated with either an arterial or venous sample on the glucometer or sent to the main labortory for testing. Comment 05/14/2025 8:02 PM EST [facility] Livestock Commission Agent ID Ying Reagan [id number] 8:02 PM EST [facility] Device ID [id number] 05/14/2025 8:02 PM EST [facility] Specimen Type POC Capillary 05/14/2025 8:02 PM EST [facility] Blood Capillary blood specimen / Unknown 05/14/2025 7:59 PM EST 05/14/2025 8:02 PM EST Lokesh Anderson MD LAB POINT OF CARE TE ST DOCKED DEVICE UNSOLICITED RESULTS Final Result [facility] [address] [place] [address] * CT Guided Drain Placement Peritoneal or Retroperitoneal (05/14/2025 5:06 PM EST) Anatomical Region Laterality Modality Computed Tomogra phy Impressions 05/18/2025 10:[address]-guided drain placement into pancreatectomy bed abscess. Drain required a small transpleural course. PLAN: 1. Continue Drain to accordion suction 2. Flush drain with 5-10 ml sterile saline daily 3. Monitor output 4. Follow up drain cultures 5. Follow up in IR clinic in approximately 2 weeks if drain remains in place. CRITICAL RESULT: COMMUNICATION: Per this written report. Drafted by Gael Alatorre MD on 05/16/2025 5:47 PM Final report signed by Gael Alatorre MD on 05/18/2025 10:37 AM Narrative 05/18/2025 10:37 AM EST CLINICAL INDICATION: 69 year old woman with history of distal pancreatectomy and splenectomy now with suspected abscess within the pancreatectomy bed presents for drain placement. TECHNIQUE: Aerospace Stress Engineer: Gael Alatorre MD Secondary Livestock Commission Agent: None Rad Dose: 1006 mGy-cm DLP Medications: IV conscious sedation with continuous physiologic monitoring provided by a qualified healthcare professional using Versed 2 mg IV and Fentanyl 50 mcg IV. 1% Lidocaine SQ. Antibiotics: No additional Duration of Conscious Sedation: Time out: 1632 close out: 1658 Procedure: After discussion of risks and benefits, informed written consent was obtained. Appropriate time out was done to confirm patient identity and planned procedure. Strict hand hygiene protocol was observed. All personnel in the room were attired in surgical hat and mask. The operators were in surgical hat, mask, sterile gloves, and sterile gowns. The patient was placed in the right posterior oblique position on the CT table and initial scanning carried out. The skin overlying the planned tract was prepped and draped in usual sterile fashion, and local anesthetic administered. The fluid collection was accessed under CT guidance with a 18g needle and position confirmed. Aspiration of purulent material also confirm position. Via the needle an Amplatz wire was advanced. Over this wire, an 10 Fr locking pigtail drain was placed, and the wire removed. Purulent material was returned of which a sample was submitted for culture. Follow-up CT demonstrated good position of the drain. The drain was placed to accordion drainage, and secured to the skin with 2-0 Silk suture and an occlusive dressing. The patient tolerated the procedure well, and was transferred back to the recovery area in good condition. Total DLP (Dose-Length Product): 1005.68 mGy.cm. Please note: The reported value represents the total of one or more individual components during the CT acquisition on this date and at this time, and as such, the same value may appear in more than one CT report depending on the interpreting/reporting physicians. COMPARISON: CT abdomen pelvis 05/13/2025 FINDINGS: Redemonstration of fluid collection within the pancreatic bed measuring approximately 3 by a CM targeted for drain placement. Unfortunately only a transpleural course was noted for drain placement. Small pleural effusion with associated dependent atelectasis is noted. Intraprocedural images demonstrates the needle and wire passing into the collection followed by drain placement. Short transpleural course is noted. Postprocedural images demonstrate interval resolution of the collection within the pancreatic bed. COMPLICATION: No. Procedure Note Gael Alatorre MD - 05/18/2025 CLINICAL INDICATION: 69 year old woman with history of distal pancreatectomy and splenectomynow with suspected abscess within the pancreatectomy bed presents fordrain placement. TECHNIQUE: Aerospace Stress Engineer: Gael Alatorre MD Secondary Livestock Commission Agent: None Rad Dose: 1006 mGy-cm DLP Medications: IV conscious sedation with continuous physiologic monitoringprovided by a qualified healthcare professional using Versed 2 mg IV andFentanyl 50 mcg IV. 1% Lidocaine SQ. Antibiotics: No additional Duration of Conscious Sedation: Time out: 1632 close out: 1658 Procedure: After discussion of risks and benefits, informed written consent wasobtained. Appropriate time out was done to confirm patient identity andplanned procedure. Strict hand hygiene protocol was observed. All personnel in the room wereattired in surgical hat and mask. The operators were in surgical hat,mask, sterile gloves, and sterile gowns. The patient was placed in the right posterior oblique position on the CTtable and initial scanning carried out. The skin overlying the plannedtract was prepped and draped in usual sterile fashion, and localanesthetic administered. The fluid collection was accessed under CTguidance with a 18g needle and position confirmed. Aspiration of purulentmaterial also confirm position. Via the needle an Amplatz wire wasadvanced. Over this wire, an 10 Fr locking pigtail drain was placed, andthe wire removed. Purulent material was returned of which a sample wassubmitted for culture. Follow-up CT demonstrated good position of thedrain. The drain was placed to accordion drainage, and secured to the skinwith 2-0 Silk suture and an occlusive dressing. The patient tolerated theprocedure well, and was transferred back to the recovery area in goodcondition. Total DLP (Dose-Length Product): 1005.68 mGy.cm. Please note: The reportedvalue represents the total of one or more individual components during theCT acquisition on this date and at this time, and as such, the same valuemay appear in more than one CT report depending on theinterpreting/reporting physicians. COMPARISON: CT abdomen pelvis 05/13/2025 FINDINGS: Redemonstration of fluid collection within the pancreatic bed measuringapproximately 3 by a CM targeted for drain placement. Unfortunately only atranspleural course was noted for drain placement. Small pleural effusionwith associated dependent atelectasis is noted. Intraprocedural images demonstrates the needle and wire passing into thecollection followed by drain placement. Short transpleural course isnoted. Postprocedural images demonstrate interval resolution of the collectionwithin the pancreatic bed. COMPLICATION: No. IMPRESSION: CT-guided drain placement into pancreatectomy bed abscess. Drain requireda small transpleural course. PLAN: 1. Continue Drain to accordion suction 2. Flush drain with 5-10 ml sterile saline daily 3. Monitor output 4. Follow up drain cultures 5. Follow up in IR clinic in approximately 2 weeks if drain remains inplace. CRITICAL RESULT: COMMUNICATION: Per this written report. Drafted by Gael Alatorre MD on 05/16/2025 5:47 PM Final report signed by Gael Alatorre MD on 05/18/2025 10:37 AM Jelena Lou APRN, DNP IMG CT PROCEDURES Final Result * Amylase, Drain Fluid (05/14/2025 4:47 PM EST) Amylase, Drain Fluid 186 U/L 05/14/2025 10:39 PM EST [facility] Lavage/Dialysis Fluid Drainage fluid specimen / Unknown 05/14/2025 4:47 PM EST 05/14/2025 8:59 PM EST Narrative [facility] - 05/14/2025 10:39 PM EST Reference Values: No established reference interval. Interpret with caution. This test was developed and its performance characteristics determined by [facility]. The U.S. Food and Drug Administration has not approved or cleared this test; however, FDA clearance or approval is not currently required for clinical use. The results are not intended to be used as the sole means for clinical diagnosis or patient management decisions. Drain Fluid: Drain fluid amylase activity that is greater than three times a corresponding serum/plasma level is a predictive risk factor for postoperative pancreatic fistula. Note: Interpretive information was assimilated from a literature search (e.g., studies, guidelines, textbooks) related to body fluid testing. Information should be interpreted with caution because the literature sources cross many decades, analyzers and reagent formulations. All information should be viewed in the context of the patient's clinical presentation. Body fluid amylase should not be used as sole evidence of malignancy for diagnostic purposes and should be reviewed in correlation with cytology, plasma/serum results, and other clinical evidence. Lokesh Anderson MD LAB BODY FLUIDS AND STOOLS ORDER FARSHAD Final Result [facility] [address] [place] [address] * (ABNORMAL) Body Fluid Culture and Gram Stain (05/14/2025 4:47 PM EST) Culture Heavy Growth 05/18/2025 2:36 PM EST [facility] Culture 4+ Streptococcus constellatus(A) 05/18/2025 2:36 PM EST [facility] Comment: This isolate has been identified using the FDA Approved [employer] [place] System The organism value for this result has been updated. These results have been appended to the previously preliminary verified report. Edited result: Previously reported as Streptococcus species on 05/15/2025 at 1553 EST. Culture 1+ Haemophilus parainfluenzae(A) 05/18/2025 2:36 PM EST [facility] Comment: This isolate has been identified using the FDA Approved [employer] [place] System The organism value for this result has been updated. These results have been appended to the previously preliminary verified report. Gram Stain Result Numerous Gram positive cocci in pairs and chains(A) 05/18/2025 2:36 PM EST [facility] Gram Stain Result Numerous Gram negative rods(A) 05/18/2025 2:36 PM EST [facility] Gram Stain Result Numerous Polymorphonuclear leukocytes(A) 05/18/2025 2:36 PM EST [facility] Body Fluid Body fluid specimen / Unknown Non-blood Collection / Unknown 05/14/2025 4:47 PM EST 05/14/2025 9:09 PM EST Narrative Organism Antibiotic Method Susceptibility Streptococcus constellatus Penicillin G ETEST 0.094 ug/ml: Susceptible Haemophilus parainfluenzae Beta Lactamase Negative Comment:This organism is pre dictably susceptible to ampicillin or amoxicillin. Conrado Park APRN LAB MICROBIOLOGY - GENERAL OR DERABLES Final Result Performing Organization Address [facility] Co de Phone Number [facility] [address] [place] [address] * Urinalysis Microscopic Examination (05/14/2025 7:38 AM EST) Urine Urine specimen obtained by clean catch procedure / Unknown Non-blood Collection / Unknown 05/14/2025 7:38 AM EST 05/14/2025 7:43 AM EST Zay Sheth MD LAB URINE ORDERABLES Final Resul t Performing Organization Address City/[facility]/ZIP Co de Phone Number [facility] [address] [place] [address] * (ABNORMAL) Urinalysis with reflex microscopic (Culture NOT Included) (05/14/2025 7:38 AM EST) Color, Urine Dark Yellow LAB URINALYSIS - AUTOMATED METHOD 05/14/2025 8:04 AM [facility] Clarity, Urine Clear LAB URINALYSIS - AUTOMATED METHOD 05/14/2025 8:04 AM [facility] Spec [place], Urine >1.030(H) 1.005 - 1.030 LAB URINALYSIS - AUTOMATED METHOD 05/14/2025 8:04 AM [facility] pH, Urine 6.0 5.0 - 8.0 LAB URINALYSIS - AUTOMATED METHOD 05/14/2025 8:04 AM [facility] Protein, Urine 100(A) Negative mg/dL LAB URINALYSIS - AUTOMATED METHOD 05/14/2025 8:04 AM [facility] Glucose, Urine Negative Negative mg/dL LAB URINALYSIS - AUTOMATED METHOD 05/14/2025 8:04 AM [facility] Ketones, Urine Negative Negative mg/dL LAB URINALYSIS - AUTOMATED METHOD 05/14/2025 8:04 AM [facility] Blood, Urine Moderate(A) Negative LAB URINALYSIS - AUTOMATED METHOD 05/14/2025 8:04 AM [facility] Bilirubin, Urine Negative Negative LAB URINALYSIS - AUTOMATED METHOD 05/14/2025 8:04 AM [facility] Urobilinogen, Urine 1.0 0.2 to 1.0 mg/dL LAB URINALYSIS - AUTOMATED METHOD 05/14/2025 8:04 AM [facility] Leukocytes, Urine Trace(A) Negative LAB URINALYSIS - AUTOMATED METHOD 05/14/2025 8:04 AM [facility] Nitrite, Urine Negative Negative LAB URINALYSIS - AUTOMATED METHOD 05/14/2025 8:04 AM [facility] RBC, Urine 4 - 10(A) 0 to 3 /HPF LAB URINALYSIS - AUTOMATED METHOD 05/14/2025 8:04 AM [facility] Comment:This result was prev iously suppressed from the chart. WBC, Urine 0 - 5 0 to 5 /HPF LAB URINALYSIS - AUTOMATED METHOD 05/14/2025 8:04 AM [facility] Comment:This result was prev iously suppressed from the chart. Squamous Epithelial Cells 6 - 10(A) 0 to 5 /HPF LAB URINALYSIS - AUTOMATED METHOD 05/14/2025 8:04 AM EST [facility] Comment:This result was prev iously suppressed from the chart. Hyaline Casts 0 - 2 0 to 5 /LPF LAB URINALYSIS - AUTOMATED METHOD 05/14/2025 8:04 AM EST [facility] Comment:This result was prev iously suppressed from the chart. Bacteria, Urine Negative Negative LAB URINALYSIS - AUTOMATED METHOD 05/14/2025 8:04 AM EST [facility] Comment:This result was prev iously suppressed from the chart. Urine Urine specimen obtained by clean catch procedure / Unknown Non-blood Collection / Unknown 05/14/2025 7:38 AM EST 05/14/2025 7:43 AM EST us Zay Sheth MD LAB URINE ORDERABLES Final Resul t Performing Organization Address City/[facility]/ZIP Co de Phone Number [facility] [address] [place] [address] * Blood Culture (Aerobic/Anaerobet Set) (05/14/2025 2:32 AM EST) Culture No growth at day 5 05/19/2025 5:51 AM EST [facility] Blood Structure of right wrist region / Unknown Venipuncture / Unknown 05/14/2025 2:32 AM EST 05/14/2025 5:43 AM EST Narrative [facility] - 05/19/2025 5:51 AM EST Low blood volume submitted, results may be compromised us Zay Sheth MD LAB MICROBIOLOGY - GENERAL ORDER FARSHAD Final Result Performing Organization Address City/[facility]/ZIP Co de Phone Number [facility] [address] [place] [address] * Blood Culture (Aerobic/Anaerobet Set) (05/14/2025 2:32 AM EST) Culture No growth at day 5 05/19/2025 6:01 AM EST [facility] Blood Structure of left wrist region / Unknown Venipuncture / Unknown 05/14/2025 2:32 AM EST 05/14/2025 5:44 AM EST Narrative [facility] - 05/19/2025 6:01 AM EST Low blood volume submitted, results may be compromised us Zay Sheth MD LAB MICROBIOLOGY - GENERAL ORDER FARSHAD Final Result [facility] [address] [place] [address] * CT Abdomen Pelvis w IV Contrast (05/13/2025 8:22 PM EST) Anatomical Region Laterality Modality Abdomen, Pelvis Computed Tomogra phy Impressions 05/13/2025 9:24 PM EST 1. Postoperative changes of resection of the majority of the pancreatic body, and of the spleen. Interval removal of Jesus-Coppola drain previously in the pancreatic bed, with interval development of fluid collection in the pancreatic bed measuring 2 x 9.5 cm, compatible with leak from the pancreatic resection margin. Adjacent inflammatory changes of the fat about the collection, and of the residual pancreas, correlate with serum lipase levels. 2. Similar intrahepatic and extrahepatic biliary duct dilation. 3. Trace effusion in the posterior left costophrenic sulcus, with adjacent atelectasis. CRITICAL RESULT: No. COMMUNICATION: Per this written report. Drafted by Nikolas Hernández MD on 05/13/2025 9:06 PM Final report signed by Nikolas Hernández MD on 05/13/2025 9:24 PM Narrative 05/13/2025 9:24 PM EST CLINICAL INDICATION: abd pain, recent abd surgery TECHNIQUE: Imaging of the abdomen and pelvis was performed, from lung bases through pubic symphysis, using spiral technique, following administration of IV contrast, Omnipaque 300, 100 mL. Delayed (excretory phase) images were performed through the kidneys. Reformatted images in the coronal and sagittal planes were generated from the axial data set to facilitate diagnostic accuracy. Total DLP (Dose-Length Product): 703.12 mGy.cm. Please note: The reported value represents the total of one or more individual components during the CT acquisition on this date and at this time, and as such, the same value may appear in more than one CT report depending on the interpreting/reporting physicians. COMPARISON: CT A/P 03/29/2025 FINDINGS: No consolidation lower lungs. Bibasilar atelectasis. Trace effusion in the posterior left costophrenic sulcus. No free abdominal gas. No free pelvic fluid, or significant free abdominal fluid. No acute hepatic parenchymal findings. Relatively similar appearance of intrahepatic biliary ductal dilation, with extrahepatic ductal dilation, as on the previous examination, with the proximal common bile duct measuring up to 18 mm in diameter, similar to prior, with appropriate distal tapering to the pancreatic head. Stable adrenal morphology. No acute renal findings. Postoperative changes of resection of the majority of the pancreatic body, and of the spleen. Interval removal of Jesus-Coppola drain previously in the pancreatic bed, with interval development of fluid collection in the pancreatic bed measuring 2 x 9.5 cm (). No internal gas. Surrounding haziness and stranding of the fat, with smaller foci of fluid extending into the base of the mesenteric root. There appears be normal enhancement of the pancreatic neck and head with surrounding fat haziness. No gastric distention. No evidence of a small bowel obstruction. Appendix not visualized, no suspicious pericecal findings. Pericolonic fat inflammatory changes at the splenic flexure, secondary to the above, no other pericolonic information. Diverticulosis without focal diverticulitis. No uterine enlargement, no concerning adnexal lesions. Calcified degenerated fibroid at the posterior fundus. Distended urinary bladder without wall thickening or perivesical inflammation. No concerning adenopathy by size criteria. Scattered aortoiliac vascular calcification without significant dilation of the aorta, the celiac and the SMA remain patent. The portal vein is patent, stenosis of the SMV as it enters the splenoportal confluence, otherwise patent. Interval removal of midline skin justyn. No significant excisional fascial defects, or subcutaneous fluid collections. No aggressive osseous lesions or interval changes. Procedure Note Nikolas Hernández MD - 05/13/2025 CLINICAL INDICATION: abd pain, recent abd surgery TECHNIQUE: Imaging of the abdomen and pelvis was performed, from lung bases throughpubic symphysis, using spiral technique, following administration of IVcontrast, Omnipaque 300, 100 mL. Delayed (excretory phase) images wereperformed through the kidneys. Reformatted images in the coronal andsagittal planes were generated from the axial data set to facilitatediagnostic accuracy. Total DLP (Dose-Length Product): 703.12 mGy.cm. Please note: The reportedvalue represents the total of one or more individual components during theCT acquisition on this date and at this time, and as such, the same valuemay appear in more than one CT report depending on theinterpreting/reporting physicians. COMPARISON: CT A/P 03/29/2025 FINDINGS: No consolidation lower lungs. Bibasilar atelectasis. Trace effusion in theposterior left costophrenic sulcus. No free abdominal gas. No free pelvic fluid, or significant free abdominalfluid. No acute hepatic parenchymal findings. Relatively similar appearance ofintrahepatic biliary ductal dilation, with extrahepatic ductal dilation,as on the previous examination, with the proximal common bile ductmeasuring up to 18 mm in diameter, similar to prior, with appropriatedistal tapering to the pancreatic head. Stable adrenal morphology. Noacute renal findings. Postoperative changes of resection of the majority of the pancreatic body,and of the spleen. Interval removal of Jesus-Coppola drain previously inthe pancreatic bed, with interval development of fluid collection in thepancreatic bed measuring 2 x 9.5 cm (/80). No internal gas. Surroundinghaziness and stranding of the fat, with smaller foci of fluid extendinginto the base of the mesenteric root. There appears be normal enhancementof the pancreatic neck and head with surrounding fat haziness. No gastric distention. No evidence of a small bowel obstruction. Appendixnot visualized, no suspicious pericecal findings. Pericolonic fatinflammatory changes at the splenic flexure, secondary to the above, noother pericolonic information. Diverticulosis without focaldiverticulitis. No uterine enlargement, no concerning adnexal lesions. Calcifieddegenerated fibroid at the posterior fundus. Distended urinary bladderwithout wall thickening or perivesical inflammation. No concerning adenopathy by size criteria. Scattered aortoiliac vascular calcification without significant dilationof the aorta, the celiac and the SMA remain patent. The portal vein ispatent, stenosis of the SMV as it enters the splenoportal confluence,otherwise patent. Interval removal of midline skin justyn. No significant excisionalfascial defects, or subcutaneous fluid collections. No aggressive osseous lesions or interval changes. IMPRESSION: 1. Postoperative changes of resection of the majority of the pancreaticbody, and of the spleen. Interval removal of Jesus-Coppola drainpreviously in the pancreatic bed, with interval development of fluidcollection in the pancreatic bed measuring 2 x 9.5 cm, compatible withleak from the pancreatic resection margin. Adjacent inflammatory changesof the fat about the collection, and of the residual pancreas, correlatewith serum lipase levels. 2. Similar intrahepatic and extrahepatic biliary duct dilation. 3. Trace effusion in the posterior left costophrenic sulcus, with adjacentatelectasis. CRITICAL RESULT: No. COMMUNICATION: Per this written report. Drafted by Nikolas Hernández MD on 05/13/2025 9:06 PM Final report signed by Nikolas Hernández MD on 05/13/2025 9:24 PM us Jemal Hargrove MD IMG CT PROCEDURES Final Result * ED HIV 1/2 Antibody/Antigen Screen w/Reflex to HIV 1/2 Differentiation (05/13/2025 6:44 PM EST) HIV 1 & 2 Antibody/Antigen Screen Non Reactive Non Reactive 05/13/2025 8:03 PM EST [facility] Comment:Screening for HIV 1 & 2 antibodies, and P24 antigen is NONREACTIVE. No confirmatory testing is required. Blood Venous blood specimen / Unknown Venipuncture / Unknown 05/13/2025 6:44 PM EST 05/13/2025 7:22 PM EST us Jemal Hargrove MD LAB BLOOD ORDERABLES Final Resul t Performing Organization Address City/State/[facility] Co de Phone Number [facility] [address] [place] [address] * Hepatitis C Antibody - ED (05/13/2025 6:44 PM EST) Hepatitis C Antibody Negative Negative 05/13/2025 9:33 PM EST [facility] Blood Venous blood specimen / Unknown Venipuncture / Unknown 05/13/2025 6:44 PM EST 05/13/2025 7:21 PM EST us Jemal Hargrove MD LAB BLOOD ORDERABLES Final Resul t [facility] [address] [place] [address] * (ABNORMAL) CBC w/diff (05/13/2025 6:44 PM EST) WBC Count 20.00(H) 3.70 - 10.30 10*3/uL LAB HEMATOLOGY METHOD 05/13/2025 6:58 PM EST [facility] RBC Count 4.05 3.90 - 5.20 10*6/uL LAB HEMATOLOGY METHOD 05/13/2025 6:58 PM EST [facility] HGB 12.2 11.2 - 15.7 g/dL LAB HEMATOLOGY METHOD 05/13/2025 6:58 PM EST [facility] HCT 34.7 34.0 - 45.0 % LAB HEMATOLOGY METHOD 05/13/2025 6:58 PM EST [facility] Platelet Count 298 155 - 369 10*3/uL LAB HEMATOLOGY METHOD 05/13/2025 6:58 PM EST [facility] MCV 86 79 - 98 fL LAB HEMATOLOGY METHOD 05/13/2025 6:58 PM EST [facility] MCH 30.1 26.0 - 32.0 pg LAB HEMATOLOGY METHOD 05/13/2025 6:58 PM EST [facility] MCHC 35.2 30.7 - 35.5 g/dL LAB HEMATOLOGY METHOD 05/13/2025 6:58 PM EST [facility] RDW 14.3 11.5 - 14.5 % LAB HEMATOLOGY METHOD 05/13/2025 6:58 PM EST [facility] MPV 9.5 8.8 - 12.5 fL LAB HEMATOLOGY METHOD 05/13/2025 6:58 PM EST [facility] nRBC 0.0 <=0.0 per 100 WBCs LAB HEMATOLOGY METHOD 05/13/2025 6:58 PM EST [facility] Differential Type Automated LAB HEMATOLOGY METHOD 05/13/2025 6:58 PM EST [facility] Neutrophils % 84 % LAB HEMATOLOGY METHOD 05/13/2025 6:58 PM EST [facility] Lymphocytes % 7 % LAB HEMATOLOGY METHOD 05/13/2025 6:58 PM EST [facility] Monocytes % 8 % LAB HEMATOLOGY METHOD 05/13/2025 6:58 PM EST [facility] Eosinophils % 0 % LAB HEMATOLOGY METHOD 05/13/2025 6:58 PM EST [facility] Basophils % 0 % LAB HEMATOLOGY METHOD 05/13/2025 6:58 PM EST [facility] Immature Granulocytes % 1 % LAB HEMATOLOGY METHOD 05/13/2025 6:58 PM EST [facility] Neutrophils Absolute 16.81(H) 1.60 - 6.10 10*3/uL LAB HEMATOLOGY METHOD 05/13/2025 6:58 PM EST [facility] Lymphocytes Absolute 1.42 1.20 - 3.90 10*3/uL LAB HEMATOLOGY METHOD 05/13/2025 6:58 PM EST [facility] Monocytes Absolute 1.61(H) 0.30 - 0.90 10*3/uL LAB HEMATOLOGY METHOD 05/13/2025 6:58 PM EST [facility] Eosinophils Absolute 0.00 0.00 - 0.50 10*3/uL LAB HEMATOLOGY METHOD 05/13/2025 6:58 PM EST [facility] Basophils Absolute 0.03 0.00 - 0.10 10*3/uL LAB HEMATOLOGY METHOD 05/13/2025 6:58 PM EST [facility] Immature Granulocytes Absolute 0.13(H) 0.00 - 0.06 10*3/uL LAB HEMATOLOGY METHOD 05/13/2025 6:58 PM EST [facility] Blood Venous blood specimen / Unknown Venipuncture / Unknown 05/13/2025 6:44 PM EST 05/13/2025 6:50 PM EST Narrative [facility] - 05/13/2025 6:58 PM EST Therapeutic decision making should be based on absolute values, rather than percentages. us Jemal Hargrove MD LAB BLOOD ORDERABLES Final Resul t [facility] [address] [place] [address] * Lipase (05/13/2025 6:44 PM EST) Lipase, Plasma 21 19 - 63 U/L 05/13/2025 7:28 PM EST [facility] Blood Venous blood specimen / Unknown Venipuncture / Unknown 05/13/2025 6:44 PM EST 05/13/2025 6:50 PM EST us Jemal Hargrove MD LAB BLOOD ORDERABLES Final Resul t [facility] [address] [place] [address] * (ABNORMAL) CMP (05/13/2025 6:44 PM EST) Glucose, Plasma 146(H) 74 - 99 mg/dL 05/13/2025 7:28 PM EST [facility] BUN, Plasma 16 8 - 23 mg/dL 05/13/2025 7:28 PM EST [facility] Creatinine, Plasma 0.70 0.60 - 1.10 mg/dL 05/13/2025 7:28 PM EST [facility] BUN/Creatinine Ratio 23 05/13/2025 7:28 PM EST [facility] Sodium, Plasma 129(L) 136 - 145 mmol/L 05/13/2025 7:28 PM EST [facility] Potassium, Plasma 3.3(L) 3.6 - 4.9 mmol/L 05/13/2025 7:28 PM EST [facility] Chloride, Plasma 95(L) 97 - 107 mmol/L 05/13/2025 7:28 PM EST [facility] CO2, Plasma 25 22 - 29 mmol/L 05/13/2025 7:28 PM EST [facility] Anion Gap 9 6 - 16 mmol/L 05/13/2025 7:28 PM EST [facility] Total Calcium, Plasma 8.7(L) 8.9 - 10.2 mg/dL 05/13/2025 7:28 PM EST [facility] Total Protein 7.1 6.3 - 7.9 g/dL 05/13/2025 7:28 PM EST [facility] Albumin, Plasma 3.1(L) 3.5 - 5.2 g/dL 05/13/2025 7:28 PM EST [facility] AST, Plasma 39(H) 10 - 35 U/L 05/13/2025 7:28 PM EST [facility] ALT, Plasma 24 10 - 35 U/L 05/13/2025 7:28 PM EST [facility] Alkaline Phosphatase, Plasma 114 46 - 142 U/L 05/13/2025 7:28 PM EST [facility] Total Bilirubin, Plasma 1.1 0.2 - 1.1 mg/dL 05/13/2025 7:28 PM EST [facility] eGFRcr 92.6 mL/min/1.7 3m*2 05/13/2025 7:28 PM EST [facility] Comment:Reported eGFRcr in m L/min/1.73m2 is based the CKD-EPI 2020 equation that does not use a race coefficient. Blood Venous blood specimen / Unknown Venipuncture / Unknown 05/13/2025 6:44 PM EST 05/13/2025 6:50 PM EST us Jemal Hargrove MD LAB BLOOD ORDERABLES Final Resul t [facility] [address] [place] [address] documented in this encounter Visit Diagnoses Diagnosis Peripancreatic fluid collection- Primary Other specified disease of pancreas Abdominal pain, unspecified abdominal location Nausea and vomiting, unspecified vomiting type Peripancreatic fluid collection Other specified disease of pancreas IPMN (intraductal papillary mucinous neoplasm) Neoplasm of unspecified nature of digestive system Pituitary adenoma (CMS/HCC) Benign neoplasm of pituitary gland and craniopharyngeal duct (pouch) Pleural effusion Unspecified pleural effusion On total parenteral nutrition (TPN) Abdominal pain Abdominal pain, unspecified site On total parenteral nutrition (TPN) Pleural effusion Unspecified pleural effusion HTN (hypertension) Unspecified essential hypertension Vascular problem Unspecified circulatory system disorder Pituitary adenoma (CMS/HCC) Benign neoplasm of pituitary gland and craniopharyngeal duct (pouch) Pancreatic cyst Cyst and pseudocyst of pancreas Pleural effusion associated with pulmonary infection Other specified forms of effusion, except tuberculous documented in this encounter Admitting Diagnoses Diagnosis Peripancreatic fluid collection Other specified disease of pancreas Abdominal pain Abdominal pain, unspecified site Pleural effusion Unspecified pleural effusion documented in this encounter Administered Medications Inactive Administered Medications - up to 3 most recent administrations Medication Order MAR Action Action Date Dose Rate Site acetaminophen (Tylenol) tablet 1,000 mg 1,000 mg, Oral, Every 8 hours, First dose on Mon05/14/25 at 0200, Until Discontinued, Routine Given 05/29/2025 1:15 PM EST 1,000 mg Given 05/21/2025 3:13 PM EST 1,000 mg Given 05/21/2025 5:35 AM EST 1,000 mg Adult 2-in-1 TPN 65 mL/hr, Continuous TPN, Starting on Mon05/20/25 at 2100, Until Zoe 05/22/25 at 205, 1,560 mL, Administer over 24 Hours, Intravenous, Central, Routine New Bag 05/21/2025 8:34 PM EST 6 5 mL/hr New Bag 05/21/2025 5:14 AM EST 50 mL/hr New Bag 05/20/2025 8:53 PM EST 25 mL/hr Adult 2-in-1 TPN 65 mL/hr, Continuous TPN, Starting on Mon05/22/25 at 2100, Until Mon05/26/25 at 205, 1,560 mL, Administer over 24 Hours, Intravenous, Central, Routine Rate/Dose Verify 05/26/2025 4:00 PM EST 65 mL/hr Rate/Dose Verify 05/26/2025 12:00 PM EST 65 mL/ hr Rate/Dose Verify 05/26/2025 8:00 AM EST 65 mL/h r Adult 2-in-1 TPN 65 mL/hr, Continuous TPN, Starting on Mon05/26/25 at 2100, Until Mon05/28/25 at 205, 1,560 mL, Administer over 24 Hours, Intravenous, Central, Routine Rate/Dose Verify 05/28/2025 8:21 AM EST 65 mL/hr New Bag 05/27/2025 9:44 PM EST 65 mL/hr Rate/Dose Change 05/27/2025 3:24 PM EST 65 mL/h r Adult 2-in-1 TPN 65 mL/hr, Continuous TPN, Starting on Mon05/28/25 at 2100, Until Mon06/02/25 at 1920, 1,560 mL, Administer over 24 Hours, Intravenous, Central, Routine Rate/Dose Verify 06/02/2025 12:30 PM EST 65 mL/hr Rate/Dose Verify 06/02/2025 8:30 AM EST 65 mL/h r New Bag 06/01/2025 9:49 PM EST 65 mL/hr amoxicillin-clavulanate (Augmentin) 875-125 MG per tablet 1 tablet 1 tablet (875 mg), Oral, Every 12 hours, First dose on Mon05/18/25 at 2100, Until Discontinued, RoutineIndications:Intra-Abdominal Infection Given 05/19/2025 8:41 PM EST 1 tablet Given 05/19/2025 8:00 AM EST 1 tablet Given 05/18/2025 9:17 PM EST 1 tablet aspirin chewable tablet 81 mg 81 mg, Oral, Daily, First dose on Mon05/15/25 at 1130, Until Discontinued, Routine Given 06/02/2025 9:01 AM EST 81 mg Given 06/01/2025 9:20 AM EST 81 mg Given 05/31/2025 9:24 AM EST 81 mg bisacodyl (Dulcolax) suppository 10 mg 10 mg, Rectal, Once, 1 dose, On Mon05/29/25 at 0745, Routine Given 05/29/2025 8:20 AM EST 10 mg dextrose 10 % (D10W) bolus 125 mL 125 mL, Intravenous, Every 15 min PRN, Starting on Mon05/20/25 at 1323, Until Mon06/02/25 at 1920, Administer over 15 Minutes, Routine, low blood sugar BG 51-89 mg/dL dextrose 10 % (D10W) bolus 250 mL 250 mL, Intravenous, Every 15 min PRN, Starting on Mon05/20/25 at 1323, Until Mon06/02/25 at 1920, Administer over 15 Minutes, Routine, PRN low blood sugar BG =/<50 mg/dL dextrose 5 % and sodium chloride 0.9 % infusion 42 mL/hr, Intravenous, Continuous, Starting on Mon05/16/25 at 1745, Until Mon05/18/25 at 0527, Routine Rate/Dose Verify 05/17/2025 2:20 PM EST 42 mL/hr 42 mL/hr New Bag 05/17/2025 2:18 PM EST 42 mL/hr 42 mL/hr New Bag 05/16/2025 5:58 PM EST 42 mL/hr 42 mL/hr dextrose 5 % and sodium chloride 0.9 % with KCl 20 mEq/L infusion 42 mL/hr, Intravenous, Continuous, Starting on Mon05/14/25 at 0215, Until Mon05/15/25 at 1742, Routine Rate/Dose Verify 05/15/2025 3:08 PM EST 42 mL/hr 42 mL/hr Rate/Dose Change 05/15/2025 2:12 PM EST 42 mL/hr 42 mL/h r Rate/Dose Verify 05/15/2025 1:00 PM EST 75 mL/hr 75 mL/h r dronabinol (Marinol) capsule 2.5 mg 2.5 mg, Oral, 2 times daily before meals, First dose on Mon05/20/25 at 1200, Until Discontinued, Routine Given 05/23/2025 8:08 AM EST 2.5 mg Given 05/22/2025 5:01 PM EST 2.5 mg Given 05/22/2025 7:58 AM EST 2.5 mg enoxaparin (Lovenox) syringe 40 mg 40 mg, Subcutaneous, Daily, First dose on Mon05/15/25 at 1300, Until Discontinued, Routine Given 06/02/2025 9:01 AM EST 40 mg Left Lower Abdomen Given 06/01/2025 9:20 AM EST 40 mg Ri ght Lower Abdomen Given 05/31/2025 9:24 AM EST 40 mg Ri ght Lower Abdomen fat emulsion fish/plant based (SMOFlipid) 20 % IV infusion 250 mL 250 mL, Every other day, First dose on Mon05/21/25 at 0900, Until Discontinued, 250 mL, Administer over 12 Hours, at 20.8 mL/hr, Intravenous, Routine Rate/Dose Verify 06/02/2025 12:30 PM EST 20.8 mL/hr New Bag 06/02/2025 9:01 AM EST 250 mL 20.8 mL/hr Rate/Dose Verify 05/31/2025 8:00 PM EST 20.8 mL /hr Right Upper Arm fentaNYL (Sublimaze) injection 25 mcg 25 mcg, Intravenous, Every 5 min PRN, 4 doses, Starting on Mon05/27/25 at 1759, Until Mon05/27/25 at 1937, Routine, DVPRS >/= 5, CPOT >/= 3, FLACC >/= 4, PAINAD >/= 4 Given 05/27/2025 7:37 PM EST 25 mcg Given 05/27/2025 7:21 PM EST 25 mcg Given 05/27/2025 6:52 PM EST 25 mcg fentaNYL (Sublimaze) injection Intravenous, As needed, Starting on Mon05/14/25 at 1632, Until Mon05/14/25 at 1641, Routine, Intraprocedure Given 05/14/2025 4:41 PM EST 25 mcg Given 05/14/2025 4:32 PM EST 25 mcg fentaNYL (Sublimaze) injection Intravenous, As needed, Starting on Mon05/21/25 at 1118, Until Mon05/21/25 at 1118, Routine, Intraprocedure Given 05/21/2025 11:18 AM EST 50 mcg gabapentin (Neurontin) capsule 300 mg 300 mg, Oral, Nightly, First dose on Mon05/24/25 at 2100, Until Discontinued, Routine Given 05/29/2025 8:40 PM EST 300 mg Given 05/28/2025 9:18 PM EST 300 mg Given 05/27/2025 8:01 PM EST 300 mg gabapentin (Neurontin) capsule 300 mg 300 mg, Oral, 2 times daily, First dose (after last modification) on Mon05/30/25 at 2100, Until Discontinued, Routine Given 06/02/2025 9:01 AM EST 300 mg Given 06/01/2025 9:03 PM EST 300 mg Given 06/01/2025 9:20 AM EST 300 mg glucagon (human recombinant) injection 1 mg 1 mg, Intramuscular, Every 15 min PRN, Starting on Mon05/20/25 at 1323, Until Mon06/02/25 at 1920, Routine, low blood sugar per Hypoglycemia Prevention and Treatment protocol glucose (Glutose) 40 % oral gel 15-30 grams of glucose 15-30 grams of glucose, Sublingual, Every 15 min PRN, Starting on Mon05/20/25 at 1323, Until Mon06/02/25 at 1920, Routine, low blood sugar, per Hypoglycemia Prevention and Treatment protocol heparin (porcine) injection 5,000 Units 5,000 Units, Subcutaneous, Once, 1 dose, On Mon05/27/25 at 1515, Routine, Holding - Preprocedure Given 05/27/2025 2:32 PM EST 5,000 Units Right Lower Abdomen HYDROmorphone (Dilaudid) injection 0.25 mg 0.25 mg, Intravenous, Once, 1 dose, On Mon05/19/25 at 1645, Routine Given 05/19/2025 4:00 PM EST 0.25 mg HYDROmorphone (Dilaudid) injection 0.25 mg 0.25 mg, Intravenous, Every 10 min PRN, 4 doses, Starting on Mon05/27/25 at 1759, Until Mon05/28/25 at 0604, Routine, DVPRS >/= 5, CPOT >/= 3, FLACC >/= 4, PAINAD >/= 4 Given 05/28/2025 5:57 AM EST 0.25 mg Given 05/27/2025 11:29 PM EST 0.25 mg Given 05/27/2025 11:00 PM EST 0.25 mg HYDROmorphone (Dilaudid) injection 0.5 mg 0.5 mg, Intravenous, Every 4 hours PRN, 3 doses, Starting on Mon05/21/25 at 1858, Until 05/24/25 at 0712, Routine, Moderate/Severe Pain > or =3: CPOT; > or =4: FLACC, PAINAD, NPASS, NRS, Dan-Garcia Faces; > or =5: DVPRS, NIPS Given 05/21/2025 7:02 PM EST 0.5 mg HYDROmorphone (Dilaudid) injection 0.5 mg 0.5 mg, Intravenous, Once, 1 dose, On Mon05/25/25 at 1200, Routine Given 05/25/2025 11:55 AM EST 0.5 mg HYDROmorphone (Dilaudid) injection 0.5 mg 0.5 mg, Intravenous, Once, 1 dose, On Mon05/25/25 at 1315, STAT Given 05/25/2025 12:29 PM EST 0.5 mg HYDROmorphone (Dilaudid) injection 0.5 mg 0.5 mg, Intravenous, Once, 1 dose, On Mon05/28/25 at 2045, Routine Given 05/28/2025 8:04 PM EST 0.5 mg insulin regular (HumuLIN R,NovoLIN R) 100 UNIT/ML injection 2 Units 2 Units, Subcutaneous, Every 6 hours scheduled, First dose on Mon05/23/25 at 0000, Until Discontinued, Routine Given 05/23/2025 6:03 AM EST 2 Units Right Upper Arm (Lisa k) Given 05/23/2025 12:41 AM EST 2 Units L eft Upper Arm (Back) insulin regular (HumuLIN R,NovoLIN R) 100 UNIT/ML injection 3 Units 3 Units, Subcutaneous, Every 6 hours scheduled, First dose (after last modification) on Mon05/23/25 at 1200, Until Discontinued, Routine Given 05/23/2025 12:31 PM EST 3 Units Left Upper Arm (Back ) insulin regular (HumuLIN R,NovoLIN R) 100 UNIT/ML injection 5 Units 5 Units, Subcutaneous, Every 6 hours scheduled, First dose (after last modification) on 05/23/25 at 1800, Until Discontinued, Routine Given 05/24/2025 12:09 PM EST 5 Units Left Lower Abdomen Given 05/24/2025 5:08 AM EST 5 Units Le ft Lower Abdomen Given 05/24/2025 12:12 AM EST 5 Units R ight Lower Abdomen insulin regular (HumuLIN R,NovoLIN R) 100 UNIT/ML injection 6 Units 6 Units, Subcutaneous, Every 6 hours scheduled, First dose (after last modification) on 05/24/25 at 1800, Until Discontinued, Routine Given 05/25/2025 5:22 AM EST 6 Units Right Lower Abdomen Given 05/25/2025 12:54 AM EST 6 Units R ight Lower Abdomen Given 05/24/2025 6:12 PM EST 6 Units Ri ght Lower Abdomen insulin regular (HumuLIN R,NovoLIN R) 100 UNIT/ML injection 7 Units 7 Units, Subcutaneous, Every 6 hours scheduled, First dose (after last modification) on [place] 05/25/25 at 1200, Until Discontinued, Routine Given 05/29/2025 5:01 AM EST 7 Units Right Lower Abdomen Given 05/28/2025 11:59 PM EST 7 Units L eft Upper Arm (Back) Given 05/28/2025 6:30 PM EST 7 Units Ri ght Lower Abdomen insulin regular (HumuLIN R,NovoLIN R) 100 UNIT/ML injection 8 Units 8 Units, Subcutaneous, Every 6 hours scheduled, First dose (after last modification) on Zoe 05/29/25 at 1200, Until Discontinued, Routine Given 06/02/2025 12:09 PM EST 8 Units Left Lower Abdomen Given 06/02/2025 6:13 AM EST 8 Units Ri ght Upper Abdomen Given 06/01/2025 11:10 PM EST 8 Units L eft Upper Arm (Back) insulin regular (HumuLIN R,NovoLIN R) 100 units/mL injection - Correction - Resistant Dose 0-10 Units, Subcutaneous, Every 6 hours scheduled, First dose on Mon05/21/25 at 0000, Until Discontinued, Routine Given 06/02/2025 12:09 PM EST 2 Units Left Lower Abdomen Given 06/02/2025 6:13 AM EST 2 Units Ri ght Upper Abdomen Given 06/01/2025 11:10 PM EST 2 Units L eft Upper Arm (Back) iohexol (OMNIPaque) 300 MG/ML injection 100 mL 100 mL, Intravenous, Once in imaging, 1 dose, Starting on Mon05/13/25 at 1914, Until Mon05/13/25 at 2014, Routine, Imaging Protocol Orders Given 05/13/2025 8:14 PM EST 100 mL iohexol (OMNIPaque) 300 MG/ML injection 100 mL 100 mL, Intravenous, Once in imaging, 1 dose, Starting on 05/17/25 at 0853, Until 05/17/25 at 1015, Routine, Imaging Protocol Orders Given 05/17/2025 10:15 AM EST 100 mL iohexol (OMNIPaque) 300 MG/ML injection 100 mL 100 mL, Intravenous, Once in imaging, 1 dose, Starting on Mon05/20/25 at 0831, Until Mon05/20/25 at 1414, Routine, Imaging Protocol Orders Given 05/20/2025 2:14 PM EST 100 mL iohexol (OMNIPaque) 300 MG/ML injection 100 mL 100 mL, Intravenous, Once in imaging, 1 dose, Starting on Zoe 05/22/25 at 0827, Until Zoe 05/22/25 at 1036, Routine, Imaging Protocol Orders Given 05/22/2025 10:36 AM EST 80 mL iohexol (OMNIPaque) 9 MG/ML oral contrast 500 mL 500 mL, Oral, Once in imaging, 1 dose, Starting on Mon05/20/25 at 0831, Until Mon05/20/25 at 1001, Routine, Imaging Protocol Orders Given 05/20/2025 10:01 AM EST 500 mL ipratropium-albuterol (Duo-Neb) 0.5-2.5 mg/3 mL nebulizer solution 3 mL 3 mL, Nebulization, Every 6 hours RT, 8 doses, First dose (after last modification) on Mon05/28/25 at 1030, Last dose on Mon05/30/25 at 0300, Routine Given 05/29/2025 2:16 PM EST 3 mL Given 05/29/2025 8:44 AM EST 3 mL Given 05/29/2025 3:02 AM EST 3 mL ipratropium-albuter ol (Duo-Neb) 0.5-2.5 mg/3 mL nebulizer solution 3 mL 3 mL, Nebulization, Every 6 hours RT, 8 doses, First dose (after last reorder) on Mon05/30/25 at 0930, Last dose on Mon06/01/25 at 0300, Routine Given 05/31/2025 9:22 AM EST 3 mL lactated Ringer's bolus 500 mL 500 mL, Intravenous, Once, 1 dose, On Mon05/14/25 at 0200, Administer over 2 Hours, Routine New Bag 05/14/2025 2:38 AM EST 500 mL 250 mL/hr lactated Ringer's bolus 500 mL 500 mL, Intravenous, Once, 1 dose, On Zoe 05/15/25 at 1545, Administer over 2 Hours, Routine New Bag 05/15/2025 3:08 PM EST 500 mL 250 mL/hr lactated Ringer's infusion 1,000 mL 1,000 mL, Intravenous, Once, 1 dose, On Mon05/13/25 at 1840, STAT New Bag 05/13/2025 6:52 PM EST 1,000 mL Lidocaine (Lidoderm) 4 % patch 1 patch 1 patch, Apply externally, Every 24 hours, First dose on Mon05/27/25 at 2100, Until Discontinued, Administer over 12 Hours, Routine Medication Applied 06/01/2025 9:02 PM EST 1 patch Left Upper Abdomen Medication Applied 05/31/2025 9:06 PM EST 1 patch Flank Medication Applied 05/30/2025 8:53 PM EST 1 patch Flank lidocaine (Lidoderm) 5 % patch 1 patch 1 patch, Apply externally, Every 24 hours, First dose on 05/19/25 at 2115, Until Discontinued, Administer over 12 Hours, Routine Medication Applied 05/26/2025 8:32 PM EST 1 patch Back Medication Applied 05/25/2025 8:21 PM EST 1 patch Back Medication Applied 05/24/2025 8:17 PM EST 1 patch Back lidocaine (Xylocaine) 1 % injection Intradermal, As needed, Starting on Mon05/14/25 at 1642, Until Mon05/14/25 at 1642, Routine, Intraprocedure Given 05/14/2025 4:42 PM EST 10 mL lidocaine (Xylocaine) 1 % injection Intradermal, As needed, Starting on Mon05/21/25 at 1123, Until Mon05/21/25 at 1123, Routine, Intraprocedure Given 05/21/2025 11:23 AM EST 10 mL Left Chest magnesium sulfate IVPB 2 g 2 g, Intravenous, Once, 1 dose, On 05/17/25 at 1445, Routine Rate/Dose Verify 05/17/2025 2:20 PM EST 25 mL/hr New Bag 05/17/2025 1:58 PM EST 2 g 25 mL/hr magnesium sulfate IVPB 2 g 2 g, Intravenous, Once, 1 dose, On Mon05/19/25 at 0715, Routine New Bag 05/19/2025 6:38 AM EST 2 g 25 mL/hr magnesium sulfate IVPB 2 g 2 g, Intravenous, Once, 1 dose, On Mon05/23/25 at 0645, Routine Rate/Dose Verify 05/23/2025 6:23 AM EST 25 mL/hr New Bag 05/23/2025 6:04 AM EST 2 g 25 mL/hr magnesium sulfate IVPB 2 g 2 g, Intravenous, Once, 1 dose, On Zoe 05/29/25 at 0700, Routine New Bag 05/29/2025 6:24 AM EST 2 g 25 mL/ hr magnesium sulfate IVPB 2 g 2 g, Intravenous, Once, 1 dose, On 05/31/25 at 0845, Routine New Bag 05/31/2025 9:37 AM EST 2 g 25 mL/ hr magnesium sulfate IVPB 4 g 4 g, Intravenous, Every 4 hours, 2 doses, First dose on Zoe 05/15/25 at 0545, Last dose on Zoe 05/15/25 at 0945, Routine New Bag 05/15/2025 9:11 AM EST 4 g 25 mL/hr New Bag 05/15/2025 5:56 AM EST 4 g 25 mL/hr megestrol (Megace) 40 MG/ML suspension 200 mg 200 mg, Oral, Daily, Hazardous Drug-Tier 1 Precautions. Dispose in BL[facility] Hazardous Waste Container. Chemotherapy: refer to [id number]., First dose on Mon05/18/25 at 0900 Given 05/19/2025 8:00 AM EST 200 mg Given 05/18/2025 9:57 AM EST 200 mg methocarbamol (Robaxin) tablet 1,000 mg 1,000 mg, Oral, 4 times daily, First dose (after last modification) on Mon05/20/25 at 1400, Until Discontinued, Routine Given 06/02/2025 1:53 PM EST 1,000 m g Given 06/02/2025 9:01 AM EST 1,000 mg Given 06/01/2025 9:03 PM EST 1,000 mg methocarbamol (Robaxin) tablet 500 mg 500 mg, Oral, Every 6 hours PRN, Starting on Mon05/14/25 at 0159, Until Mon05/14/25 at 2126, Routine, muscle spasms Given 05/14/2025 6:14 PM EST 500 mg methocarbamol (Robaxin) tablet 500 mg 500 mg, Oral, Every 6 hours, First dose (after last modification) on Mon05/14/25 at 2215, Until Discontinued, Routine Given 05/16/2025 11:55 AM EST 500 mg Given 05/15/2025 5:18 PM EST 500 mg Given 05/15/2025 11:56 AM EST 500 mg methocarbamol (Robaxin) tablet 500 mg 500 mg, Oral, 3 times daily, First dose on Mon05/19/25 at 1645, Until Discontinued, Routine Given 05/19/2025 8:41 PM EST 500 mg Given 05/19/2025 4:00 PM EST 500 mg midazolam (Versed) injection Intravenous, As needed, Starting on Mon05/14/25 at 1632, Until Mon05/14/25 at 1641, Routine, Intraprocedure Given 05/14/2025 4:41 PM EST 1 mg Given 05/14/2025 4:32 PM EST 1 mg midazolam (Versed) injection Intravenous, As needed, Starting on Mon05/21/25 at 1118, Until Mon05/21/25 at 1118, Routine, Intraprocedure Given 05/21/2025 11:18 AM EST 1 mg morphine PF 4 mg 4 mg, Intravenous, Once, 1 dose, On Mon05/13/25 at 1840, STAT Given 05/13/2025 7:00 PM EST 4 mg morphine PF 4 mg 4 mg, Intravenous, Once, 1 dose, On Mon05/14/25 at 0135, STAT Given 05/14/2025 1:48 AM EST 4 mg morphine PF 4 mg 4 mg, Intravenous, Once, 1 dose, On Mon05/14/25 at 1915, STAT Given 05/14/2025 6:37 PM EST 4 mg mupirocin (Bactroban) 2 % ointment 1 Application Each Nostril, 2 times daily, 10 doses, First dose on Mon05/20/25 at 1045, Last dose on Mon05/24/25 at 2100, Routine Given 05/24/2025 8:14 PM EST 1 Application Given 05/24/2025 8:54 AM EST 1 Application Given 05/23/2025 8:07 PM EST 1 Application mupirocin (Bactroban) 2 % ointment 1 Application Each Nostril, 2 times daily, 10 doses, First dose on Mon05/26/25 at 2100, Last dose on Mon05/31/25 at 0900, RoutineIndications:Methicillin-Resista nt S. Aureus Nasal Colonization Given 05/27/2025 8:29 AM EST 1 Applicatio n Given 05/26/2025 8:33 PM EST 1 Application nystatin (Mycostatin) [id number] UNIT/GM powder 1 Application Topical, 2 times daily, First dose on Mon06/01/25 at 0900, Until Discontinued, Routine Given 06/01/2025 9:02 PM EST 1 Application Given 06/01/2025 9:27 AM EST 1 Application ondansetron (Zofran) 4 MG/5ML solution 4 mg 4 mg, Oral, Every 6 hours PRN, Starting on Mon05/14/25 at 0312, Until Mon06/02/25 at 1920, Routine, nausea, vomiting ondansetron (Zofran) injection 4 mg 4 mg, Intravenous, Once, 1 dose, On Mon05/13/25 at 1840, STAT Given 05/13/2025 7:00 PM EST 4 mg ondansetron (Zofran) injection 4 mg 4 mg, Intravenous, Every 6 hours PRN, Starting on Mon05/14/25 at 0312, Until Mon06/02/25 at 1920, Routine, vomiting, nausea Given 06/01/2025 5:06 PM EST 4 mg Given 05/27/2025 8:45 AM EST 4 mg Given 05/16/2025 9:52 AM EST 4 mg ondansetron ODT (Zofran-ODT) disintegrating tablet 4 mg 4 mg, Oral, Every 6 hours PRN, Starting on Mon05/14/25 at 0312, Until Mon06/02/25 at 1920, Routine, nausea, vomiting Given 05/16/2025 5:01 PM EST 4 mg Given 05/16/2025 8:15 AM EST 4 mg Given 05/15/2025 6:07 AM EST 4 mg oxyCODONE (Roxicodone) immediate release tablet 10 mg 10 mg, Oral, Every 6 hours PRN, 2 doses, Starting on Mon05/19/25 at 1813, Until Mon05/20/25 at 0123, Routine, Moderate/Severe Pain > or =3: CPOT; > or =4: FLACC, PAINAD, NPASS, NRS, Dan-Garcia Faces; > or =5: DVPRS, NIPS Given 05/20/2025 1:23 AM EST 10 mg Given 05/19/2025 6:25 PM EST 10 mg oxyCODONE (Roxicodone) immediate release tablet 10 mg 10 mg, Oral, Every 6 hours PRN, Starting on Mon05/20/25 at 0746, Until Mon05/26/25 at 0757, Routine, Moderate/Severe Pain > or =3: CPOT; > or =4: FLACC, PAINAD, NPASS, NRS, Dan-Garcia Faces; > or =5: DVPRS, NIPS Given 05/26/2025 3:24 AM EST 10 mg Given 05/25/2025 8:18 PM EST 10 mg Given 05/25/2025 1:23 PM EST 10 mg oxyCODONE (Roxicodone) immediate release tablet 10 mg 10 mg, Oral, Every 4 hours PRN, Starting on Mon05/26/25 at 0757, Until Mon06/02/25 at 1920, Routine, Moderate/Severe Pain > or =3: CPOT; > or =4: FLACC, PAINAD, NPASS, NRS, Dan-Garcia Faces; > or =5: DVPRS, NIPS Given 06/02/2025 3:40 AM EST 10 mg Given 06/01/2025 9:48 PM EST 10 mg Given 06/01/2025 5:13 PM EST 10 mg oxyCODONE (Roxicodone) immediate release tablet 5 mg 5 mg, Oral, Every 6 hours PRN, Starting on Mon05/14/25 at 2125, Until Mon05/16/25 at 1810, Routine, Moderate/Severe Pain > or =3: CPOT; > or =4: FLACC, PAINAD, NPASS, NRS, Dan-Garcia Faces; > or =5: DVPRS, NIPS Given 05/15/2025 9:55 PM EST 5 mg Given 05/15/2025 10:38 AM EST 5 mg Given 05/14/2025 9:58 PM EST 5 mg oxyCODONE (Roxicodone) immediate release tablet 5 mg 5 mg, Oral, Every 6 hours PRN, Starting on 05/18/25 at 0817, Until 05/18/25 at 1217, Routine, Moderate/Severe Pain > or =3: CPOT; > or =4: FLACC, PAINAD, NPASS, NRS, Dan-Garcia Faces; > or =5: DVPRS, NIPS Given 05/18/2025 8:59 AM EST 5 mg oxyCODONE (Roxicodone) immediate release tablet 5 mg 5 mg, Oral, Every 4 hours PRN, Starting on Mon05/26/25 at 0757, Until Mon06/02/25 at 1920, Routine, Moderate/Severe Pain > or =3: CPOT; > or =4: FLACC, PAINAD, NPASS, NRS, Dan-Garcia Faces; > or =5: DVPRS, NIPS Given 06/02/2025 9:02 AM EST 5 mg Given 05/28/2025 3:13 AM EST 5 mg Given 05/27/2025 8:07 PM EST 5 mg pantoprazole (Protonix) EC tablet 40 mg 40 mg, Oral, Daily, First dose on 05/17/25 at 0900, Until Discontinued, Routine Given 06/02/2025 9:01 AM EST 40 mg Given 06/01/2025 9:20 AM EST 40 mg Given 05/31/2025 9:24 AM EST 40 mg pantoprazole (Protonix) injection 40 mg 40 mg, Intravenous, Daily, First dose on Mon05/14/25 at 0955, Until Discontinued, Routine Given 05/16/2025 8:1 3 AM EST 40 mg Given 05/15/2025 9:11 AM EST 40 mg Given 05/14/2025 11:03 AM EST 40 mg piperacillin-tazobactam (Zosyn) 3.375 g in sodium chloride 0.9% 100 mL IVPB (vial adapter required) 3.375 g, Intravenous, Every 6 hours, First dose (after last modification) on Mon05/14/25 at 0825, Until Discontinued, Routine New Bag 05/18/2025 6:26 AM EST 3.375 g 36.7 mL/hr New Bag 05/18/2025 12:30 AM EST 3.375 g 36.7 mL/hr New Bag 05/17/2025 5:51 PM EST 3.375 g 36.7 mL/hr piperacillin-tazobactam (Zosyn) 3.375 g in sodium chloride 0.9% 100 mL IVPB (vial adapter required) 3.375 g, Intravenous, Every 6 hours, First dose on Mon05/20/25 at 0730, Until Discontinued, Routine New Bag 05/30/2025 7:55 AM EST 3.375 g 36.7 mL/hr New Bag 05/30/2025 2:06 AM EST 3.375 g 36.7 mL/hr New Bag 05/29/2025 8:43 PM EST 3.375 g 36.7 mL/hr piperacillin-tazobactam (Zosyn) 4.5 g in sodium chloride 0.9% 100 mL IVPB (vial adapter required) 4.5 g, Intravenous, Every 6 hours, First dose on Mon05/14/25 at 0225, Until Discontinued, Routine New Bag 05/14/2025 3:40 AM EST 4.5 g 36.7 mL/hr potassium chloride CR (Klor-Con) ER tablet 20 mEq 20 mEq, Oral, Once, 1 dose, On Mon05/19/25 at 0915, Routine Given 05/19/2025 10:15 AM EST 20 mEq potassium chloride CR (Klor-Con) ER tablet 40 mEq 40 mEq, Oral, Once, 1 dose, On Mon05/16/25 at 1030, Routine Given 05/16/2025 10:52 AM EST 40 mEq potassium chloride CR (Klor-Con) ER tablet 40 mEq 40 mEq, Oral, Once, 1 dose, On Mon05/17/25 at 1500, Routine Given 05/17/2025 2:18 PM EST 40 mEq potassium chloride CR (Klor-Con) ER tablet 40 mEq 40 mEq, Oral, Once, 1 dose, On Mon05/19/25 at 0715, Routine Given 05/19/2025 6:45 AM EST 40 mEq potassium chloride IVPB 10 mEq 10 mEq, Intravenous, Every 1 hour, 6 doses, First dose on Zoe 05/15/25 at 0545, Last dose on Zoe 05/15/25 at 1045, RoutineIndications:Hypokalemia New Bag 05/15/2025 11:54 AM EST 10 mEq 100 mL/hr New Bag 05/15/2025 10:40 AM EST 10 mEq 100 mL/hr New Bag 05/15/2025 9:11 AM EST 10 mEq 100 mL/hr potassium chloride IVPB 10 mEq 10 mEq, Intravenous, Every 1 hour, 8 doses, First dose on Mon05/16/25 at 0600, Last dose on Mon05/16/25 at 1300, RoutineIndications:Hypokalemia New Bag 05/16/2025 9:42 AM EST 10 mEq 100 mL/hr New Bag 05/16/2025 8:38 AM EST 10 mEq 100 mL/hr New Bag 05/16/2025 7:36 AM EST 10 mEq 100 mL/hr Povidone-Iodine 5 % swab solution 1 Application Nasal, Once, 1 dose, On Mon05/27/25 at 1515, Routine Given 05/27/2025 2:29 PM EST 1 Application senna-docusate (Lacey-Colace) 8.6-50 MG per tablet 1 tablet 1 tablet, Oral, Nightly, First dose on Mon05/28/25 at 2100, Until Discontinued, Routine Given 05/30/2025 8:53 PM EST 1 tablet Given 05/29/2025 8:41 PM EST 1 tablet Given 05/28/2025 9:18 PM EST 1 tablet sodium chloride 0.9 % flush 10 mL 10 mL, Intravenous, Every 12 hours, First dose on Mon05/14/25 at 1040, Until Discontinued, Routine, On Unit - Preprocedure Given 05/19/2025 9:48 PM EST 10 mL Given 05/19/2025 10:25 AM EST 10 mL Given 05/18/2025 9:19 PM EST 10 mL sodium chloride 0.9 % flush 10 mL 10 mL, Intravenous, Every 12 hours, First dose on Mon05/14/25 at 1425, Until Discontinued, Routine, Holding - Preprocedure Given 05/20/2025 1:33 AM EST 10 mL Given 05/19/2025 2:21 PM EST 10 mL Given 05/19/2025 1:54 AM EST 10 mL sodium chloride 0.9 % flush 10 mL 10 mL, Intravenous, Every 12 hours, First dose on Mon05/20/25 at 1045, Until Discontinued, Routine Given 06/02/2025 9:46 AM EST 10 mL Given 06/01/2025 10:09 AM EST 10 mL Given 05/31/2025 11:00 PM EST 10 mL sodium chloride 0.9 % flush 10 mL 10 mL, Intravenous, Every 1 hour PRN, Starting on Mon05/20/25 at 0950, Until Mon06/02/25 at 1920, Routine, Flush Before and After EVERY dose of medication. sodium chloride 0.9 % flush 10 mL 10 mL, Intravenous, Every 12 hours, First dose on Mon05/20/25 at 1800, Until Discontinued, Routine Given 06/01/2025 5:58 PM EST 10 mL Given 06/01/2025 6:38 AM EST 10 mL Ri ght Upper Arm Given 05/31/2025 7:19 PM EST 10 mL sodium chloride 0.9 % flush 10 mL 10 mL, Intravenous, Every 1 hour PRN, Starting on Mon05/20/25 at 1704, Until Mon06/02/25 at 1920, Routine, Flush Before and After EVERY dose of medication. Given 05/31/2025 9:05 PM EST 10 mL Right Upper Arm sodium chloride 0.9 % flush 20 mL 20 mL, Intravenous, Every 1 hour PRN, Starting on Mon05/20/25 at 0950, Until Mon06/02/25 at 1920, Routine, After blood draws and if any blood seen in tubing. sodium chloride 0.9 % flush 20 mL 20 mL, Intravenous, Every 1 hour PRN, Starting on Mon05/20/25 at 1704, Until Mon06/02/25 at 1920, Routine, After blood draws and if any blood seen in tubing. sodium chloride 3 % nebulizer solution 3 mL 3 mL, Nebulization, 2 times daily, First dose on Mon05/28/25 at 1030, Until Discontinued, Routine Given 06/01/2025 8:47 AM EST 3 mL Given 05/31/2025 9:22 AM EST 3 mL Given 05/29/2025 8:44 AM EST 3 mL Sodium Phosphate-NaCl IVPB 15 mmol 15 mmol, Intravenous, Once, 1 dose, On Mon05/19/25 at 0715, Routine Given 05/19/2025 6:38 AM EST 15 mmol 62.5 mL/hr sodium phosphates 30 mmol in sodium chloride 0.9 % 500 mL IVPB 30 mmol, Intravenous, Once, 1 dose, On Mon05/16/25 at 1300, Routine New Bag 05/16/2025 2:12 PM EST 30 mmol 138.8 mL/hr documented in this encounter Active and Recently Administered Medications Times are shown in EST. Scheduled Medication Order 05/31/2025 06/01/2025 06/02/2025 acetaminophen (Tylenol) tablet 1,000 mg 1,000 mg, Oral, Every 8 hours, First dose on Mon05/14/25 at 0200, Until Discontinued, Routine 0514 (Not Given - Provider: Tabitha Lee RN - Reason: Patient/Family/Repre sentative Refused)1323 (Not Given - Provider: Nathalie Valerio RN - Reason: Patient/Family/Repre sentative Refused)2107 (Not Given - Provider: Tabitha Lee RN - Reason: Patient/Family/Repre sentative Refused) 0542 (Not Given - Provider: Tabitha Lee RN - Reason: Patient/Family/Repre sentative Refused)1314 (Not Given - Provider: Nathalie Valerio RN - Reason: Patient/Family/Repre sentative Refused)210 (Not Given - Provider: Franchesca Ybarra RN - Reason: Patient/Family/Repre sentative Refused) 0605 (Not Given - Provider: Franchesca Ybarra RN - Reason: Patient/Family/Represen tative Refused)1353 (Not Given - Provider: Rachel Kamara RN - Reason: Patient/Family/Represen tative Refused) aspirin chewable tablet 81 mg 81 mg, Oral, Daily, First dose on Mon05/15/25 at 1130, Until Discontinued, Routine 09 (Given - Provider: Nathalie Valeiro RN) 09 (Given - Provider: Nathalie Valerio RN) 09 (Given - Provider: Ariane Ordoñez RN) enoxaparin (Lovenox) syringe 40 mg 40 mg, Subcutaneous, Daily, First dose on Mon05/15/25 at 1300, Until Discontinued, Routine 923 (Given - Provider: Nathalie Valerio RN) 09 (Given - Provider: Nathalie Valerio RN) 09 (Given - Provider: Ariane Ordoñez RN) fat emulsion fish/plant based (SMOFlipid) 20 % IV infusion 250 mL 250 mL, Every other day, First dose on Mon05/21/25 at 0900, Until Discontinued, 250 mL, Administer over 12 Hours, at 20.8 mL/hr, Intravenous, Routine 1057 (New Bag - Provider: Nathalie Valerio RN)2000 (Rate/Dose Verify - Provider: Tabitha Lee RN)2300 (Stopped - Provider: Tabitha Lee RN) 0901 (New Bag - Provider: Ariane Ordoñez RN)1230 (Rate/Dose Verify - Provider: Ariane Ordoñez RN) gabapentin (Neurontin) capsule 300 mg 300 mg, Oral, 2 times daily, First dose (after last modification) on Mon05/30/25 at 2100, Until Discontinued, Routine 0924 (Given - Provider: Nathalie Valerio RN)210 (Given - Provider: Tabitha Lee RN) 09 (Given - Provider: Nathalie Valerio RN)210 (Given - Provider: Franchesca Ybarra RN) 0901 (Given - Provider: Ariane Ordoñez RN) insulin regular (HumuLIN R,NovoLIN R) 100 UNIT/ML injection 8 Units 8 Units, Subcutaneous, Every 6 hours scheduled, First dose (after last modification) on Mon05/29/25 at 1200, Until Discontinued, Routine 005 (Given - Provider: Tabitha Lee RN)0544 (Not Given - Provider: Tabitha Lee RN - Reason: Order parameters not met)1323 (Given - Provider: Nathalie Valerio RN - Comment: meal-)191 (Given - Provider: Nathalie Valerio RN - Comment: meal) 001 (Given - Provider: Tabitha Lee RN)0637 (Given - Provider: Tabitha Lee RN)132 (Given - Provider: Nathalie Valerio RN - Comment: meal)175 (Not Given - Provider: Nathalie Valerio RN - Reason: Order parameters not met)2310 (Given - Provider: Franchesca Ybarra RN) 0613 (Given - Provider: Franchesca Ybarra RN)1209 (Given - Provider: Ariane Ordoñez RN)1800 (Canceled Entry - Provider: Automatic Discharge Provider - Comment: Automatically canceled at discontinue of medication order) insulin regular (HumuLIN R,NovoLIN R) 100 units/mL injection - Correction - Resistant Dose 0-10 Units, Subcutaneous, Every 6 hours scheduled, First dose on Mon05/21/25 at 0000, Until Discontinued, Routine 005 (Given - Provider: Tabitha Lee RN)0544 (Not Given - Provider: Tabitha Lee RN - Reason: Order parameters not met)1324 (Given - Provider: Nathalie Valerio RN)191 (Given - Provider: Nathalie Valerio RN)2335 (Not Given - Provider: Tabitha Lee RN - Reason: Order parameters not met) 0637 (Given - Provider: Tabitha Lee RN)1207 (Not Given - Provider: Nathalie Valerio RN - Reason: Order parameters not met)1758 (Not Given - Provider: Nathalie Valerio RN - Reason: Order parameters not met)2310 (Given - Provider: Franchesca Ybarra RN) 0613 (Given - Provider: Franchesca Ybarra RN)1209 (Given - Provider: Ariane Ordoñez, AJ)1800 (Canceled Entry - Provider: Automatic Discharge Provider - Comment: Automatically canceled at discontinue of medication order) ipratropium-albuterol (Duo-Neb) 0.5-2.5 mg/3 mL nebulizer solution 3 mL () 3 mL, Nebulization, Every 6 hours RT, 8 doses, First dose (after last reorder) on Mon05/30/25 at 0930, Last dose on Mon06/01/25 at 0300, Routine 0244 (Not Given - Provider: Ning Dumont - Reason: Patient/Family/Repre sentative Refused)0922 (Given - Provider: Marilu Young)1513 (Not Given - Provider: Marilu Young - Reason: Patient/Family/Repre sentative Refused)2113 (Not Given - Provider: Naomie Betancur - Reason: Patient/Family/Repre sentative Refused - Comment: pt don't want/feels makes her throat sore/ RN at bedside/ using IS /PEP getting up secretions/ BS clear -diminished) 0300 (Not Given - Provider: Naomie Betancur - Reason: Patient/Family/Repre sentative Refused) Lidocaine (Lidoderm) 4 % patch 1 patch 1 patch, Apply externally, Every 24 hours, First dose on Mon05/27/25 at 2100, Until Discontinued, Administer over 12 Hours, Routine 0954 (Medication Removed - Provider: Nathalie Valerio RN)210 (Medication Applied - Provider: Tabitha Lee RN) 09 (Medication Removed - Provider: Nathalie Valerio RN)210 (Medication Applied - Provider: Franchesca Ybarra RN) 09 (Medication Removed - Provider: Ariane Ordoñez RN) magnesium sulfate IVPB 2 g (COMPLETED) 2 g, Intravenous, Once, 1 dose, On 05/31/25 at 0845, Routine 0937 (New Bag - Provider: Nathalie Valerio RN) methocarbamol (Robaxin) tablet 1,000 mg 1,000 mg, Oral, 4 times daily, First dose (after last modification) on Mon05/20/25 at 1400, Until Discontinued, Routine 923 (Given - Provider: Nathalie Valerio RN)132 (Given - Provider: Nathalie Valerio RN)191 (Given - Provider: Nathalie Valerio RN - Comment: cluster care)2102 (Given - Provider: Tabitha Lee, AJ) 09 (Given - Provider: Nathalie Valerio RN)132 (Given - Provider: Nathalie Valerio RN)181 (Given - Provider: Nathalie Valerio RN)2102 (Given - Provider: Franchesca Ybarra RN) 09 (Given - Provider: Ariane Ordoñez RN)135 (Given - Provider: Rachel Kamara RN)1800 (Canceled Entry - Provider: Automatic Discharge Provider - Comment: Automatically canceled at discontinue of medication order) nystatin (Mycostatin) [id number] UNIT/GM powder 1 Application Topical, 2 times daily, First dose on Mon06/01/25 at 0900, Until Discontinued, Routine 926 (Given - Provider: Nathalie Valerio RN)2101 (Given - Provider: Franchesca Ybarra RN) 09 (Not Given - Provider: Ariane Ordoñez RN - Reason: Patient/Family/Represen tative Refused) pantoprazole (Protonix) EC tablet 40 mg 40 mg, Oral, Daily, First dose on Mon05/17/25 at 0900, Until Discontinued, Routine 923 (Given - Provider: Nathalie Valerio RN) 09 (Given - Provider: Nathalie Valerio RN) 09 (Given - Provider: Ariane Ordoñez RN) senna-docusate (Lacey-Colace) 8.6-50 MG per tablet 1 tablet 1 tablet, Oral, Nightly, First dose on Mon05/28/25 at 2100, Until Discontinued, Routine 2103 (Not Given - Provider: Tabitha Lee RN - Reason: Patient/Family/Repre sentative Refused) 2102 (Not Given - Provider: Franchesca Ybarra RN - Reason: Patient/Family/Repre sentative Refused) sodium chloride 0.9 % flush 10 mL 10 mL, Intravenous, Every 12 hours, First dose on Mon05/20/25 at 1045, Until Discontinued, Routine 0953 (Given - Provider: Nathalie Valerio, RN)2300 (Given - Provider: Tabitha Lee, RN) 1009 (Given - Provider: Nathalie Valerio, RN)2157 (Canceled Entry - Provider: Franchesca Ybarra RN) 0946 (Given - Provider: Ariane Ordoñez RN) sodium chloride 0.9 % flush 10 mL 10 mL, Intravenous, Every 12 hours, First dose on Mon05/20/25 at 1800, Until Discontinued, Routine 0530 (Given - Provider: Tabitha Lee RN)1919 (Given - Provider: Nathlaie Valerio RN) 0638 (Given - Provider: Tabitha Lee RN)1758 (Given - Provider: Nathalie Valerio RN) 0600 (Canceled Entry - Provider: Franchesca Ybarra RN)1800 (Canceled Entry - Provider: Automatic Discharge Provider - Comment: Automatically canceled at discontinue of medication order) sodium chloride 3 % nebulizer solution 3 mL 3 mL, Nebulization, 2 times daily, First dose on Mon05/28/25 at 1030, Until Discontinued, Routine 0922 (Given - Provider: Marilu Young)2112 (Not Given - Provider: Naomie Betancur - Reason: Patient/Family/Repre sentative Refused - Comment: pt feels tx is the reason for her sore throat/ pt will ask for a TX if she needs it) 08 (Given - Provider: Isis Velasquez)2117 (Not Given - Provider: Franchesca Ybarra RN - Reason: Patient/Family/Repre sentative Refused) 09 (Not Given - Provider: Marian Garcia - Reason: Patient/Family/Represen tative Refused) Continuous Medication Order 05/31/2025 06/01/2025 06/02/2025 Adult 2-in-1 TPN 65 mL/hr, Continuous TPN, Starting on Mon05/28/25 at 2100, Until Mon06/02/25 at 1920, 1,560 mL, Administer over 24 Hours, Intravenous, Central, Routine 0000 (Rate/Dose Verify - Provider: Tabitha Lee RN - Comment: via purple port of DL PICC)0600 (Rate/Dose Verify - Provider: Tabitha Lee RN)2259 (Stopped - Provider: Tabitha Lee RN)2300 (New Bag - Provider: Tabitha Lee RN - Comment: purple lumen of DL PICC) 0100 (Rate/Dose Verify - Provider: Tabitha Lee RN)0250 (Rate/Dose Verify - Provider: Tabitha Lee RN)0700 (Rate/Dose Verify - Provider: Tabitha Lee RN)1200 (Rate/Dose Verify - Provider: Nathalie Valerio RN)1730 (Rate/Dose Verify - Provider: Nathalie Valerio RN)2149 (New Bag - Provider: Franchesca Ybarra RN) 0830 (Rate/Dose Verify - Provider: Ariane Ordoñez RN)1230 (Rate/Dose Verify - Provider: Ariane Ordoñez RN) PRN Medication Order 05/31/2025 06/01/2025 06/02/2025 dextrose 10 % (D10W) bolus 125 mL(Linked Group 1) 125 mL, Intravenous, Every 15 min PRN, Starting on Mon05/20/25 at 1323, Until Mon06/02/25 at 1920, Administer over 15 Minutes, Routine, low blood sugar BG 51-89 mg/dL dextrose 10 % (D10W) bolus 250 mL(Linked Group 1) 250 mL, Intravenous, Every 15 min PRN, Starting on Mon05/20/25 at 1323, Until Mon06/02/25 at 1920, Administer over 15 Minutes, Routine, PRN low blood sugar BG =/<50 mg/dL glucagon (human recombinant) injection 1 mg(Linked Group 1) 1 mg, Intramuscular, Every 15 min PRN, Starting on Mon05/20/25 at 1323, Until Mon06/02/25 at 1920, Routine, low blood sugar per Hypoglycemia Prevention and Treatment protocol glucose (Glutose) 40 % oral gel 15-30 grams of glucose(Linked Group 1) 15-30 grams of glucose, Sublingual, Every 15 min PRN, Starting on Mon05/20/25 at 1323, Until Mon06/02/25 at 1920, Routine, low blood sugar, per Hypoglycemia Prevention and Treatment protocol ondansetron (Zofran) 4 MG/5ML solution 4 mg(Linked Group 2) 4 mg, Oral, Every 6 hours PRN, Starting on Mon05/14/25 at 0312, Until Mon06/02/25 at 1920, Routine, nausea, vomiting 1706 (See Alternative - Provider: Nathalie Valerio RN) ondansetron (Zofran) injection 4 mg(Linked Group 2) 4 mg, Intravenous, Every 6 hours PRN, Starting on Mon05/14/25 at 0312, Until Mon06/02/25 at 1920, Routine, vomiting, nausea 1706 (Given - Provider: Nathalie Valerio RN) ondansetron ODT (Zofran-ODT) disintegrating tablet 4 mg(Linked Group 2) 4 mg, Oral, Every 6 hours PRN, Starting on Mon05/14/25 at 0312, Until Mon06/02/25 at 1920, Routine, nausea, vomiting 1706 (See Alternative - Provider: Nathalie Valerio RN) oxyCODONE (Roxicodone) immediate release tablet 10 mg(Linked Group 3) 10 mg, Oral, Every 4 hours PRN, Starting on Mon05/26/25 at 0757, Until Mon06/02/25 at 1920, Routine, Moderate/Severe Pain > or =3: CPOT; > or =4: FLACC, PAINAD, NPASS, NRS, Dan-Garcia Faces; > or =5: DVPRS, NIPS 0058 (Given - Provider: Tabitha Lee RN)0525 (Given - Provider: Tabitha Lee RN)0927 (Given - Provider: Nathalie Valerio, AJ)211 (Given - Provider: Tabitha Lee RN - Comment: pt rates pain #7 now after reppositioning) 0230 (Given - Provider: Tabitha Lee RN)0741 (Given - Provider: Nathalie Valerio RN)1713 (Given - Provider: Nathalie Valerio RN)2148 (Given - Provider: Franchesca Ybarra RN) 0340 (Given - Provider: Franchesca Ybarra RN)0902 (See Alternative - Provider: Ariane Ordoñez RN) oxyCODONE (Roxicodone) immediate release tablet 5 mg(Linked Group 3) 5 mg, Oral, Every 4 hours PRN, Starting on Mon05/26/25 at 0757, Until Mon06/02/25 at 1920, Routine, Moderate/Severe Pain > or =3: CPOT; > or =4: FLACC, PAINAD, NPASS, NRS, Dan-Garcia Faces; > or =5: DVPRS, NIPS 0058 (See Alternative - Provider: Tabitha Lee RN)0525 (See Alternative - Provider: Tabitha Lee RN)0927 (See Alternative - Provider: Nathalie Valerio RN)2112 (See Alternative - Provider: Tabitha Lee RN) 0230 (See Alternative - Provider: Tabitha Lee RN)0741 (See Alternative - Provider: Nathalie Valerio RN)1713 (See Alternative - Provider: Nathalie Valerio RN)2148 (See Alternative - Provider: Franchesca Ybarra RN) 0340 (See Alternative - Provider: Franchesca Ybarra RN)0902 (Given - Provider: Ariane Ordoñez RN) sodium chloride 0.9 % flush 10 mL 10 mL, Intravenous, Every 1 hour PRN, Starting on Mon05/20/25 at 0950, Until Mon06/02/25 at 1920, Routine, Flush Before and After EVERY dose of medication. sodium chloride 0.9 % flush 10 mL 10 mL, Intravenous, Every 1 hour PRN, Starting on Mon05/20/25 at 1704, Until Mon06/02/25 at 1920, Routine, Flush Before and After EVERY dose of medication. 210 (Given - Provider: Tabitha Lee RN) sodium chloride 0.9 % flush 20 mL 20 mL, Intravenous, Every 1 hour PRN, Starting on Mon05/20/25 at 0950, Until Mon06/02/25 at 1920, Routine, After blood draws and if any blood seen in tubing. sodium chloride 0.9 % flush 20 mL 20 mL, Intravenous, Every 1 hour PRN, Starting on Mon05/20/25 at 1704, Until Mon06/02/25 at 1920, Routine, After blood draws and if any blood seen in tubing. Linked Groups Order Group 1: glucose (Glutose) 40 % oral gel 15-30 grams of glucoseJump to med 15-30 grams of glucose, Sublingual, Every 15 min PRN, Starting on Mon05/20/25 at 1323, Until Mon06/02/25 at 1920, Routine, low blood sugar, per Hypoglycemia Prevention and Treatment protocol Or dextrose 10 % (D10W) bolus 125 mLJump to med 125 mL, Intravenous, Every 15 min PRN, Starting on Mon05/20/25 at 1323, Until Mon06/02/25 at 1920, Administer over 15 Minutes, Routine, low blood sugar BG 51-89 mg/dL Or dextrose 10 % (D10W) bolus 250 mLJump to med 250 mL, Intravenous, Every 15 min PRN, Starting on Mon05/20/25 at 1323, Until Mon06/02/25 at 1920, Administer over 15 Minutes, Routine, PRN low blood sugar BG =/<50 mg/dL Or glucagon (human recombinant) injection 1 mgJump to med 1 mg, Intramuscular, Every 15 min PRN, Starting on Mon05/20/25 at 1323, Until Mon06/02/25 at 1920, Routine, low blood sugar per Hypoglycemia Prevention and Treatment protocol Group 2: ondansetron ODT (Zofran-ODT) disintegrating tablet 4 mgJump to med 4 mg, Oral, Every 6 hours PRN, Starting on Mon05/14/25 at 0312, Until Mon06/02/25 at 1920, Routine, nausea, vomiting Or ondansetron (Zofran) injection 4 mgJump to med 4 mg, Intravenous, Every 6 hours PRN, Starting on Mon05/14/25 at 0312, Until Mon06/02/25 at 1920, Routine, vomiting, nausea Or ondansetron (Zofran) 4 MG/5ML solution 4 mgJump to med 4 mg, Oral, Every 6 hours PRN, Starting on Mon05/14/25 at 0312, Until Mon06/02/25 at 1920, Routine, nausea, vomiting Group 3: oxyCODONE (Roxicodone) immediate release tablet 5 mgJump to med 5 mg, Oral, Every 4 hours PRN, Starting on Mon05/26/25 at 0757, Until Mon06/02/25 at 1920, Routine, Moderate/Severe Pain > or =3: CPOT; > or =4: FLACC, PAINAD, NPASS, NRS, Dan-Garcia Faces; > or =5: DVPRS, NIPS Or oxyCODONE (Roxicodone) immediate release tablet 10 mgJump to med 10 mg, Oral, Every 4 hours PRN, Starting on Mon05/26/25 at 0757, Until Mon06/02/25 at 1920, Routine, Moderate/Severe Pain > or =3: CPOT; > or =4: FLACC, PAINAD, NPASS, NRS, Dan-Garcia Faces; > or =5: DVPRS, NIPS documented in this encounter Additional Health Concerns [...] plan has been documented for the patient 06/02/2025 2:33 PM EST documented as of this encounter Care Teams Functional Analyst Relationship Specialty Start Date End Date Golden Newell MD [address] [place] [address] PCP - General 12/04/20 documented as of this encounter
--- OUTSIDE RECORDS SUMMARY | 2025-05-27 14:59 | XMS_ITS | Encounter Summary ---
Author Organization [facility] Address [address] [place] [address] Care Team Providers Care Oversize Load Pilot Escort Name Role Phone Golden Newell MD Primary Care Provider [phone] Reason for Visit * Reason Comments Vomiting Nausea * Auth/Cert (Routine) Specialty Diagnoses / Procedures Referred By Lg quinones Referred To Contact Diagnoses Peripancreatic fluid collection Zay Sheth MD [address] [facility] [address] [facility] [address] [place] [address] Phone: tel: fax: [facility] Emergency Department [address] [place] [address] Phone: tel: Referral ID Status Reason Start Date Expiration Date Visits Re quested Visits Authorized [id number] 1 1 Encounter Details Date Type Department Care Team (Late st Contact Info) Description 05/27/2025 2:59 PM EST - 05/27/2025 6:39 PM EST Surgery [facility] OPERATING ROOM [address] [place] [address] Dylon Griggs MD [address] [facility] [address] [place] [id number] VATS Decortication [97430 (CPT )] Surgery Details Date/Time Status Location OR Service Patient Class Case Class Case Type Trauma Case? 05/27/2025 2:59 PM Posted [facility] OR [facility] OR 12 Cardiothoracic Surgery Inpatient E1 - Elective (Do not proceed without financial clearance) No Panel 1 Procedure LRB Anes Op Region Wound Class Comments VATS Decortication N/A General Surgeon Surgeon Role Service Panel Dylon Griggs MD Primary Cardiothoracic Surg emily 1 Xavier Marsh DO Resident - Assisting 1 Jose Francisco Beltran MD Resident - Assisting 1 documented in this encounter Social History Tobacco Use Types Packs/Day Years [...] any time in the past 12 m [facility], were you homeless or living in a care home (including now)? No 05/14/2025 [facility] Utilities Answer Date Recorded In the past 12 months has [employer] electric, gas, oil, or water company threatened [...] Sign Reading Time Taken Comments Blood Pressure 131/82 05/27/2025 6:35 PM EST Pulse 91 05/27/2025 6:35 PM EST Temperature 36.7 C (98 F) 05/27/2025 6:18 PM EST Respiratory Rate 23 05/27/2025 6:35 PM EST Oxygen Saturation 92% 05/27/2025 6:35 PM EST Inhaled Oxygen Concentration - - Weight 65.9 kg (145 lb 4.5 oz) 05/27/2025 6:00 A M EST Height 162.6 cm (5' 4 ) 05/27/2025 2:26 PM EST Body Mass Index 26.3 05/27/2025 2:26 PM EST documented in this encounter Functional Status * Backup Resp Rate (Set) Answer Date of Assessment Author 14 05/27/2025 6:11 PM EST Interface , Device In * Question Answer Date of Assessment Author Precautions Environmental surveillance 05/27/2025 8:0 0 AM EST Belén Mueller RN * Question Answer Date of Assessment Author Scale Used Melchor 05/14/2025 4:56 AM EST Nettie Archuleta RN * Question Answer Date of Assessment Author Precautions Environmental surveillance 05/27/2025 8:0 0 AM EST Belén Mueller RN * Calculated C-SSRS Risk Score (Lifetime/Recent) Answer Date of Assessment Author No Risk Indicated 05/27/2025 2:35 PM EST Kalee Duncan RN * Question Answer Date of Assessment Author 1. Wish to be (Past 1 Month) No 025 2:35 PM EST Kalee Duncan RN 2. Non-Specific Active Suici sathish Thoughts (Past 1 Month) No 05/27/2025 2:35 PM EST Estela Duncan RN 6. Suicidal Behavior (Lifetime) No 5 2:35 PM EST Kalee Duncan RN documented as of this encounter Mental Status * Backup Resp Rate (Set) Answer Entry Date Author 14 05/27/2025 6:11 PM EST Interface , Device In * Question Answer Entry Date Author Precautions Environmental surveillance 05/27/2025 8:0 0 AM EST Belén Mueller RN * Question Answer Entry Date Author Scale Used Melchor 05/14/2025 4:56 AM EST Nettie Archuleta RN documented in this encounter Discharge Instructions * Discharge Instructions* [place], MOBILE ARCHITECT - 05/14/2025 5:20 PM EST Discharge Instructions: [...] vomiting, or feeling unwell - Call the [facility] with any questions or concerns during regular [...] Test two times daily 100 each 11 04/04/2025 Lancets misc Test two times daily [...] directed with insulin pen. 100 each 11 04/04/2025 pen needle, diabetic 31G X 5 [...] checking blood glucose. Meds to beds delivered. set up. * Consults - Amanda Salinas - 06/02/2025 2:55 PM ESTAssociated Order(s): IP CONSULT TO DIABETIC EDUCATION Adult Diabetes Education Team Note Dot Dale 69 y.o. female CSN: [id number] This is a 69 y.o. female patient was admitted to [facility] with the diagnosis of peripancreatic fluid [...] time. Inject 8u one hour after TPN wastewater supervisor Any barriers/issues getting DM/RX Supplies? No Education Diabetic Education Performed with patient and spouse (gabriela). Family voices their daughter is pt primary DM team primary care physician, family requested instructions written down for daughter [...] Time 15 minutes Amanda Salinas * Edilia OnMELIDA - Rosa M Plaza RN - 06/02/2025 2:32 PM EST Images from the original note were not included. [id number] Discharge Instructions: Giving Yourself Total Parenteral Nutrition [...] Last Reviewed Date: 2024 00:00:00 ?? [employer]. All rights reserved. This information is not intended as a substitute for professional medical care. Always follow your healthcare professional's instructions. * Amanda Kennedy - 06/02/2025 2:24 PM EST Images from the original note were not included. 52592 Insulin Pen Injection with Clear Insulin Kuyi-tt-Vjyp Last Reviewed Date: 2025 00:00:00 ?? [employer]. All rights reserved. This information is not [...] doses at the same time unless your referral coordinator or doctor tells you to. ? There are many medicines that can interfere with your Protonix. Always check with your transplantcoordinator or doctor before taking any other medicine, including yedw-hiu-epnezix medicines (for example aspirin), vitamins, herbals, or [...] urination ? Increased thirst Please call your referral coordinator, pharmacist, or doctor if you have any questions about thismedicine. * [facility] - Rosa M Plaza RN - 06/02/2025 1:30 PM EST Images from the original note were not included. [id number] Methocarbamol WHY is this medicine prescribed? Methocarbamol [...] be awakened, immediately call emergency services at [phone]. What OTHER INFORMATION should I know? Keep all appointments with your doctor. Do not let anyone else take your medication. Ask your pharmacist any questions you have about refilling your prescription. Keep a written list of all of the prescription and nonprescription (ahdr-mxl-bfmplcq) medicines, vitamins, minerals, and dietary supplements you [...] or pharmacist about specific clinical use. The [place] [employer] represents that the information provided hereunder was formulated with a reasonable standard of care, and in conformity with professional standards in the field. The [place] [employer] makes no representations or warranties, express or implied, including, but not limited to, any implied warranty of merchantability and/or fitness for a particular purpose, with respect to such information and specifically disclaims all such warranties. Users are advised that decisions regarding drug therapy are complex medical decisions requiring the independent, informed decision of an appropriate health patient care specialist, and the information is provided for informational purposes only. The entire monograph for a drug should be reviewed for a thorough understanding of the drug's actions, uses and side effects. The [place] [employer] does not endorse or recommend the use of any drug.The information is not a substitute for medical care. AHFS?? Patient Medication Information?. ?? Copyright, 2023. The [place] [employer]??, [address], [address], [place], [place]. All Rights Reserved. Duplication for commercial use must be authorized by [facility]. Selected Revisions: February 07, 2017. AHFS?? Patient Medication Information?. ?? Copyright, 2024 * [facility] - Rosa M Plaza RN - 06/02/2025 1:30 PM EST Images from the original note were not included. [id number] Using an Injection Pen Your health care [...] rash Last Reviewed Date: 2024 00:00:00 ?? [id number] [employer]. All rights reserved. This information is not intended as a substitute for professional medical care. Always follow your healthcare professional's instructions. * Edilia Stockton - Rosa M Plaza RN - 06/02/2025 1:29 PM EST Images from the original note were not included. 49240 Giving Yourself an Insulin Shot Ncme-nh-Pfhf Last Reviewed Date: 2021 00:00:00 ?? [employer]. All rights reserved. This information is not intended as a substitute for professional medical care. Always follow your healthcare professional's instructions. * Rosa M Dorsey RN - 06/02/2025 1:29 PM EST Images from the original note were not included. 72968 Treating Low Blood Sugar (Hypoglycemia) Synh-ia-Stzp: Last Reviewed Date: 2024 00:00:00 ?? [employer]. All rights reserved. This information is not intended as a substitute for professional medical care. Always follow your healthcare professional's instructions. ANA * Rosa M Dorsey RN - 06/02/2025 1:29 PM EST Images from the original note were not included. 88577 Checking Your Blood Sugar Zhob-gy-Oykn Last Reviewed Date: 2023 00:00:00 ?? [id number] [employer]. All rights reserved. This information is not intended as a substitute for professional medical care. Always follow your healthcare professional's instructions. ANA * Rosa M Dorsey RN - 06/02/2025 1:29 PM EST Images from the original note were not included. 78145 How to Check Your Blood Sugar Keeping [...] appointment. Last Reviewed Date: 2023 00:00:00 ?? 7517-7898 [employer]. All rights reserved. This information is not intended as a substitute for professional medical care. Always follow your healthcare professional's instructions. * [facility] - Rosa M Plaza RN - 06/02/2025 1:29 PM EST Images from the original note were not included. 24301 Low Blood Sugar (Hypoglycemia) Low blood sugar [...] provider. Last Reviewed Date: 2023 00:00:00 ?? 2346-1736 [employer]. All rights reserved. This information is not intended as a substitute for professional medical care. Always follow your healthcare professional's instructions. * Edilia DellKELLY - Rosa M Plaza, RN - 06/02/2025 1:28 PM EST Images from the original note were not included. [id number] Senna WHY is this medicine prescribed? Senna [...] be awakened, immediately call emergency services at [phone]. What OTHER INFORMATION should I know? Ask your pharmacist any questions you have about senna. Keep a written list of all of the prescription and nonprescription (bczj-guh-nctoyus) medicines, vitamins, minerals, and dietary supplements you [...] or pharmacist about specific clinical use. The [place] [employer] represents that the information provided hereunder was formulated with a reasonable standard of care, and in conformity with professional standards in the field. The [place] [employer] makes no representations or warranties, express or implied, including, but not limited to, any implied warranty of merchantability and/or fitness for a particular purpose, with respect to such information and specifically disclaims all such warranties. Users are advised that decisions regarding drug therapy are complex medical decisions requiring the independent, informed decision of an appropriate health patient care specialist, and the information is provided for informational purposes only. The entire monograph for a drug should be reviewed for a thorough understanding of the drug's actions, uses and side effects. The [place] [employer] does not endorse or recommend the use of any drug.The information is not a substitute for medical care. AHFS?? Patient Medication Information?. ?? Copyright, 2023. The [place] [employer]??, [address], [address], [place], [place]. All Rights Reserved. Duplication for commercial use must be authorized by [facility]. Selected Revisions: December 14, 2023. AHFS?? Patient Medication Information?. ?? Copyright, 2024 * [facility] - Rosa M Plaza RN - 06/02/2025 1:28 PM EST Images from the original note were not included. [id number] Naloxone Nasal [place] WHY is this medicine prescribed? Prescription and [...] pharmacist for the instructions or visit the operations team leader's website to get the instructions. [...] or doctor for a copy of the operations team leader's information for the patient. Are [...] of all of the prescription and nonprescription (kiyx-wpf-zrsdszs) medicines, vitamins, minerals, and dietary supplements you [...] or pharmacist about specific clinical use. The [place] [employer] represents that the information provided hereunder was formulated with a reasonable standard of care, and in conformity with professional standards in the field. The [place] [employer] makes no representations or warranties, express or implied, including, but not limited to, any implied warranty of merchantability and/or fitness for a particular purpose, with respect to such information and specifically disclaims all such warranties. Users are advised that decisions regarding drug therapy are complex medical decisions requiring the independent, informed decision of an appropriate health patient care specialist, and the information is provided for informational purposes only. The entire monograph for a drug should be reviewed for a thorough understanding of the drug's actions, uses and side effects. The [place] [employer] does not endorse or recommend the use of any drug.The information is not a substitute for medical care. AHFS?? Patient Medication Information?. ?? Copyright, 2023. The [place] [employer]??, [address], [address], [place], [place]. All Rights Reserved. Duplication for commercial use must be authorized by [facility]. Selected Revisions: January 13, 2024. AHFS?? Patient Medication Information?. ?? Copyright, 2024 * Edilia OnFHIR - Rosa M Plaza RN - 06/02/2025 1:28 PM EST Images from the original note were not included. 798 Narcan Nasal [place]: Rescue Guide for Opioid Overdose Step 1 [...] for use in the nose. * [facility] - Rosa M Plaza RN - 06/02/2025 1:28 PM EST Images from the original note were not included. [id number] Gabapentin WHY is this medicine prescribed? Gabapentin [...] doctor or pharmacist will give you the operations team leader's patient information sheet (Medication Guide) when you begin treatment with gabapentin and each time you refill your prescription. Read the information carefully and ask your doctor or pharmacist if you have any questions. You can also visitthe Food and Drug Administration (FDA) website (https://www.fda.gov/Drugs) or the operations team leader's website to obtain the Medication [...] of all of the prescription and nonprescription (lkzp-qfe-shbzqwr) medicines, vitamins, minerals, and dietary supplements you [...] or pharmacist about specific clinical use. The [place] [employer] represents that the information provided hereunder was formulated with a reasonable standard of care, and in conformity with professional standards in the field. The [place] [employer] makes no representations or warranties, express or implied, including, but not limited to, any implied warranty of merchantability and/or fitness for a particular purpose, with respect to such information and specifically disclaims all such warranties. Users are advised that decisions regarding drug therapy are complex medical decisions requiring the independent, informed decision of an appropriate health patient care specialist, and the information is provided for informational purposes only. The entire monograph for a drug should be reviewed for a thorough understanding of the drug's actions, uses and side effects. The [place] [employer] does not endorse or recommend the use of any drug.The information is not a substitute for medical care. AHFS?? Patient Medication Information?. ?? Copyright, 2023. The [place] [employer]??, [address], [address], [place], [place]. All Rights Reserved. Duplication for commercial use must be authorized by [facility]. Selected Revisions: November 08, 2019. AHFS?? Patient Medication Information?. ?? Copyright, 2024 * Edilia Stockton - Rosa M Plaza RN - 06/02/2025 1:28 PM EST Images from the original note were not included. [id number] Acetaminophen IMPORTANT WARNING: Taking too much acetaminophen [...] measuring cup or syringe provided by the operations team leader to measure each dose of [...] and out of their sight and reach. https://www.[employer].org Dispose of unneeded medications in a way [...] be awakened, immediately call emergency services at 521. If someone takes more than the recommended [...] of all of the prescription and nonprescription (qavo-skl-tltyvsy) medicines, vitamins, minerals, and dietary supplements you [...] combination product containing Acetaminophen, Dextromethorphan, Doxylamine) APAP, Y-hxrafp-aznf-aminophenol, Paracetamol ?? This branded product is no longer on the market. Generic alternatives may be available. This report on medications is for your information only, and is not considered individual patient advice. Because of the changing nature of drug information, please consult your physician or pharmacist about specific clinical use. The [place] [employer] represents that the information provided hereunder was formulated with a reasonable standard of care, and in conformity with professional standards in the field. The [place] [employer] makes no representations or warranties, express or implied, including, but not limited to, any implied warranty of merchantability and/or fitness for a particular purpose, with respect to such information and specifically disclaims all such warranties. Users are advised that decisions regarding drug therapy are complex medical decisions requiring the independent, informed decision of an appropriate health patient care specialist, and the information is provided for informational purposes only. The entire monograph for a drug should be reviewed for a thorough understanding of the drug's actions, uses and side effects. The [place] [employer] does not endorse or recommend the use of any drug.The information is not a substitute for medical care. AHFS?? Patient Medication Information?. ?? Copyright, 2023. The [place] [employer]??, [address], [address], [place], [place]. All Rights Reserved. Duplication for commercial use must be authorized by [facility]. Selected Revisions: April 09, 2025. AHFS?? Patient Medication Information?. ?? Copyright, 2024 * Juanbassam OnFHIR - Rosa M Plaza RN - 06/02/2025 1:27 PM EST 1087 Oxycodone Oral Tablet, Immediate Release Brand Names: Oxaydo, Roxicodone What is this medicine? Oxycodone (kd-q-WGG-done) is an opioid pain reliever. It is used to treat moderate to severe pain. What should I tell my health care provider before I take this medicine? They need to know if you have any of these conditions: ? Beto's disease ? Brain tumor or head injury [...] a special medication guide each time you pickle solution maker this medicine. ? Overdosage: Taking too much [...] should report to your doctor or health patient care specialist as soon as possible: ? allergic reactions [...] attention (report to your doctor or health patient care specialist if they continue or are bothersome): ? constipation ? dry mouth ? itching ? nausea, vomiting ? upset stomach This list may not describe all possible side effects. Call your doctor for medical advice about side effects. You may report side effects to FDA at 4-907-EZL-3410. Where should I keep my medicine? This [...] location. To find a disposal location, visit [employer]/[facility]/[place]. If you cannot take unused medicine to [...] name and Address: Golden Newell MD [address] / [place] Referring provider name and address: No referring provider defined for this encounter. Chief Concern, Brief History of Present Illness, and Hospital Course Draft Hospital Course Dot Dale is a 69 y.o. female with a past medical history of IPMN s/p distal pancreatectomy and splenectomy on 03/20/25, history of CVA on aspirin, HLD , presented to [facility] hospital complaining of abdominal pain, rigors, [...] Your Medications These medications were sent to [facility] [place], [place] - [address] [facility] [address] acetaminophen 500 MG tablet Alcoh-Wipe sheet Blood [...] vomiting, or feeling unwell - Call the [facility] with any questions or concerns during regular [...] Pain and Promote Comfort Flowsheets (Taken 06/02/2025 113) Pain Management Interventions: pain management plan reviewed [...] Develop Pain Management Plan Flowsheets (Taken 06/02/2025 113) Pain Management Interventions: pain management plan reviewed with patient/caregiver Intervention: Prevent or Manage Pain Flowsheets (Taken 06/02/2025 1132) Sensory Stimulation Regulation: television on care clustered [...] Intervention: Optimize Skin Protection Flowsheets Taken 06/02/2025 1132 Activity Management: activity adjusted per tolerance Pressure [...] Prevent or Manage Infection Flowsheets (Taken 06/02/2025 1132) Infection Management: aseptic technique maintained Fever Reduction/Comfort Measures: lightweight bedding Isolation Precautions: protective * Progress Notes - Nory Romero RN - 06/02/2025 11:27 AM EST Case Management Discharge Note Dot Dale 69 y.o. female CSN: [id number] Admission: 05/13/2025 6:45 PM Primary Problem: Peripancreatic fluid collection Primary Public Health Sanitarian: Primary Caregiver: Self Assistance Available at Discharge: Gabriela Dale Spouse, Emergency Contact Current Outpatient/Agency/Support Group: DME, clinic(s), homecare agency Availability of Care Givers (#Hours): 24 hours Family/Public Health Sanitarian(s) Willingness Assessed to care for patient at home: Yes Housing Circumstances-Z Codes: Housing Circumstances (select all that apply): None Applicable Discharge Facility/Level of Care Needs: Discharge Facility/Level of Care Needs: 1-Home or Self Care, 4-[facility] [place] [place] (Formerly [employer], an [employer]) phone [phone]> confirmed TPN/ PICC line care: [facility], an [facility] - [place], [place] > confirmed delivery/teach 4:30 pm today. Patient/Family Anticipated Services at Transition: Patient/Family Anticipated Services at Transition: home health care, outpatient care [facility] - [place], [place] ([facility], an [employer]) phone [phone]> confirmed DME/Equipment Needed after Discharge: Equipment Currently Used at Home: ousmane rice Readmission Within the Last 30 Days: no Medicare Documentation: Medicare second notice signed and placed on chart. Follow-up: pending [facility] Interventional Radiology [address] [facility] [id number] Discharge Transportation: Transportation Anticipated: family or friend will provide Transportation Home at Discharge: Family/Friend will Provide Follow Up Transport: Transportation Needed to Follow up Appoinments: Family/Friend will Provide Additional Comments: per team, medically ready for discharge today to home. Met with patient and her and both agreeable to discharge plan. [id number] enrollment complete. Nory Romero, RN * Edilia Stockton - Rosa M Plaza RN - 06/02/2025 11:07 AM EST Images from the original note were not included. [id number] Flushing Your PICC Line at Home Your [...] soap and water, use an alcohol-based hand mat repairer. The gel should have at least 60% [...] PICC. Last Reviewed Date: 2024 00:00:00 ?? [id number] [employer]. All rights reserved. This information is not intended as a substitute for professional medical care. Always follow your healthcare professional's instructions. * Edilia [employer] - Rosa M Plaza [...] thoroughly. Use soap and water or hand mat repairer and wear gloves before touching the PICC [...] them before you flush the line or wastewater supervisor fluids or medicines. Avoid hard physical work. [...] place (removed on 04/23). Presented to the [facility] on 05/13/2025 with abdominal pain, rigors, diaphoresis, [...] last 7 days Lab Units 06/02/2532806/01/250 05/31/257 05/30/25 0347 05/29/25 0355 05/28/25 0459 05/27/25 0452 WBC 10*3/uL 8.73 7.85 8.86 9.27 13.07* 15.74* 14.09* HEMOGLOBIN g/dL 9.3* 9.3* 9.6* 8.9* 9.3* 9.8* 9.2* HEMATOCRIT % 28.8* 27.8* 29.6* 26.9* 28.4* 29.5* 28.2* PLATELETS 10*3/uL 576* 567* 520* 475* 469* 538* 584* Results from last 7 days Lab Units 06/02/2532806/01/250 05/31/257 05/30/257 05/29/25 0355 05/28/25 0459 05/27/25 0452 ALT U/L 16 13 12 [...] Value Units Date/Time Blood Culture (Aerobic/Anaerobet Set) [[id number]] Collected: 05/14/25 0232 Order Status: Completed Specimen: Blood from Wrist, Left Updated: 05/19/25 0601 Culture No growth at day 5 Narrative: Low blood volume submitted, results may be compromised Blood Culture (Aerobic/Anaerobet Set) [[id number]] Collected: 05/14/25 0232 Order Status: Completed Specimen: Blood from Wrist, Right Updated: 05/19/25 0551 Culture No growth at day 5 Narrative: Low blood volume submitted, results may be compromised Body Fluid Culture and Gram Stain [[id number]] (Abnormal) (Susceptibility) Collected: 05/14/25 1647 Order Status: Completed Specimen: Body Fluid (specify site): Updated: 05/18/25 1436 Culture Heavy Growth 4+ Streptococcus constellatus Comment: This isolate has been identified using the FDA Approved [employer] CA System The organism value for this result has been updated. These results have been appended to the previously preliminary verified report. Edited result: Previously reported as Streptococcus species on 05/15/2025 at 1553 EST. 1+ Haemophilus parainfluenzae Comment: This isolate has been identified using the FDA Approved [employer] CA System The organism value for this [...] 36.6 ??C (97.9 ??F) (Oral) Resp 15 [place] Coma Scale Score: 15 Melchor Scale Score: [...] All meals supplement: Boost Very High Calorie [place] All meals supplement: Magic Cup Butter Pecan Quantity for All Meals of Magic Cup Butter Pecan One Quantity for All Meals of Boost Very High Calorie - [place] One 05/30/2582905/27/25 221 Adult diet Diet texture: Regular (Adult Diet Panel) Diet effective now References: IDDSI Diet Texture Guide Question: Diet texture Answer: Regular 05/27/252212 Current Medications Current Scheduled Medications[4] Current Continuous Medications[5] Current Anthropometrics: Admit weight: 70.6 kg Height: 162.6 cm (5' 4 ) [place] body weight: 54.7 kg (120 lb 9.5 [...] plan with the IV room. Thank you, Annilucius Iqbal PharmD, [facility] Nutrition Support Pharmacy Noodle Catalyst Maker Acute Care Pharmacy Services TPN Pharmacist available on [employer] Secure Chat [1] Patient Active Problem List [...] TPN, 65 mL/hr, Last Rate: 65 mL/hr (06/01/252148) * Care Plan - Franchesca Ybarra RN [...] Spiritual Activities Assistance: affirmation provided Taken 05/31/2025 163 Supportive Measures: active listening utilized self-care encouraged [...] place (removed on 04/23). Presented to the [facility] on 05/13/2025 with abdominal pain, rigors, diaphoresis, [...] 7 days Lab Units 06/01/25 04105/31/25 04505/30/2534605/29/25 03505/28/25 0459 05/27/25 04505/26/25 0550 GLUCOSE mg/dL 143* 99 135* [...] last 7 days Lab Units 06/01/25 04105/31/25 04505/30/2534605/29/2535405/28/25 04505/27/25 0452 05/26/25 0550 WBC 10*3/uL 7.85 8.86 9.27 13.07* 15.74* 14.09* 15.57* HEMOGLOBIN g/dL 9.3* 9.6* 8.9* 9.3* 9.8* 9.2* 9.7* HEMATOCRIT % 27.8* 29.6* 26.9* 28.4* 29.5* 28.2* 29.7* PLATELETS 10*3/uL 567* 520* 475* 469* 538* 584* 586* Results from last 7 days Lab Units 06/01/25 0410 05/31/25 0457 05/30/25 0347 05/29/25 [...] Value Units Date/Time Blood Culture (Aerobic/Anaerobet Set) [[id number]] Collected: 05/14/25 0232 Order Status: Completed Specimen: Blood from Wrist, Left Updated: 05/19/25 0601 Culture No growth at day 5 Narrative: Low blood volume submitted, results may be compromised Blood Culture (Aerobic/Anaerobet Set) [[id number]] Collected: 05/14/25 0232 Order Status: Completed Specimen: Blood from Wrist, Right Updated: 05/19/25 0551 Culture No growth at day 5 Narrative: Low blood volume submitted, results may be compromised Body Fluid Culture and Gram Stain [[id number]] (Abnormal) (Susceptibility) Collected: 05/14/25 1647 Order Status: Completed Specimen: Body Fluid (specify site): Updated: 05/18/25 1436 Culture Heavy Growth 4+ Streptococcus constellatus Comment: This isolate has been identified using the FDA Approved [employer] CA System The organism value for this result has been updated. These results have been appended to the previously preliminary verified report. Edited result: Previously reported as Streptococcus species on 05/15/2025 at 1553 EST. 1+ Haemophilus parainfluenzae Comment: This isolate has been identified using the FDA Approved [employer] CA System The organism value for this [...] 36.4 ??C (97.5 ??F) (Oral) Resp 15 [place] Coma Scale Score: 15 Melchor Scale Score: [...] All meals supplement: Boost Very High Calorie [place] All meals supplement: Magic Cup Butter Pecan Quantity for All Meals of Magic Cup Butter Pecan One Quantity for All Meals of Boost Very High Calorie - [place] One 05/30/25 0830 05/27/25 2213 Adult diet Diet texture: Regular (Adult Diet Panel) Diet effective now References: IDDSI Diet Texture Guide Question: Diet texture Answer: Regular 05/27/25 2213 Current Medications Current Scheduled Medications[4] Current Continuous Medications[5] Current Anthropometrics: Admit weight: 70.6 kg Height: 162.6 cm (5' 4 ) [place] body weight: 54.7 kg (120 lb 9.5 [...] the IV room. Thank you, Rosa M GabrielD, [facility] Pharmacist [1] Patient [...] from the original note were not included. [facility] Department of Surgery Section of Thoracic Surgery [...] by Drain (mL) 05/30/25 07 - 05/30/25 18505/30/25 1900 - 05/31/25 0659 05/31/25 07 - 05/31/25 1859 05/31/25 1900 - 06/01/25 0659 06/01/25 07 - 06/01/25 0959 Requested LDAs do not [...] of care per primary team Thoracic Surgery [id number] Cosigned by Thang Aguilar DO at 06/01/2025 [...] Intervention: Provide Person-Centered Care Flowsheets (Taken 05/31/2025 163) Trust Relationship/Rapport: care explained choices provided emotional [...] Prevent or Manage Pain Flowsheets (Taken 05/31/2025 163) Sensory Stimulation Regulation: care clustered quiet environment [...] place (removed on 04/23). Presented to the [facility] on 05/13/2025 with abdominal pain, rigors, diaphoresis, [...] Value Units Date/Time Blood Culture (Aerobic/Anaerobet Set) [[id number]] Collected: 05/14/25231 Order Status: Completed Specimen: Blood from Wrist, Left Updated: 05/19/25 0601 Culture No growth at day 5 Narrative: Low blood volume submitted, results may be compromised Blood Culture (Aerobic/Anaerobet Set) [[id number]] Collected: 05/14/25 0232 Order Status: Completed Specimen: Blood from Wrist, Right Updated: 05/19/25 0551 Culture No growth at day 5 Narrative: Low blood volume submitted, results may be compromised Body Fluid Culture and Gram Stain [[id number]] (Abnormal) (Susceptibility) Collected: 05/14/25 1647 Order Status: Completed Specimen: Body Fluid (specify site): Updated: 05/18/25 1436 Culture Heavy Growth 4+ Streptococcus constellatus Comment: This isolate has been identified using the FDA Approved [employer] System The organism value for this result has been updated. These results have been appended to the previously preliminary verified report. Edited result: Previously reported as Streptococcus species on 05/15/2025 at 1553 EST. 1+ Haemophilus parainfluenzae Comment: This isolate has been identified using the FDA Approved [employer] System The organism value for this result [...] 36.9 ??C (98.4 ??F) (Oral) Resp 20 [place] Coma Scale Score: 15 Melchor Scale Score: [...] All meals supplement: Boost Very High Calorie [place] All meals supplement: Magic Cup Butter Pecan Quantity for All Meals of Magic Cup Butter Pecan One Quantity for All Meals of Boost Very High Calorie - [place] One 05/30/25 0830 05/27/25 2213 Adult diet Diet texture: Regular (Adult Diet Panel) Diet effective now References: IDDSI Diet Texture Guide Question: Diet texture Answer: Regular 05/27/252212 Current Medications Current Scheduled Medications[4] Current Continuous Medications[5] Current Anthropometrics: Admit weight: 70.6 kg Height: 162.6 cm (5' 4 ) [place] body weight: 54.7 kg (120 lb 9.5 [...] room. Thank you, Rosa M New PharmD, [facility]ute [facility] Surgery Pharmacist [1] Patient [...] KHUSHI insulin regular, 0-10 Units, Subcutaneous, q6h KHUHSI ipratropium-albuterol, 3 mL, Nebulization, q6h RT Lidocaine, 1 patch, Apply externally, q24h methocarbamol, 1,000 mg, Oral, 4x daily pantoprazole, 40 mg, Oral, Daily senna-docusate, 1 tablet, Oral, Nightly sodium chloride, 10 mL, Intravenous, q12h sodium chloride, 10 mL, Intravenous, q12h sodium chloride, 3 mL, Nebulization, BID [5] Adult 2-in-1 TPN, 65 mL/hr, Last Rate: 65 mL/hr (05/31/25 0600) * Progress Notes - Stanley Gomez MD - 05/31/2025 10:29 AM EST Images from the original note were not included. [facility] Department of Surgery Section of Thoracic Surgery [...] 2:30 PM EST Associated attestation - Thang Aguilar, DO - 06/01/2025 2:30 PM EST I saw and evaluated the patient with the resident/fellow. I discussed the case with the resident/fellow and agree with the findings and plan as documented. * Progress Notes - Katlyn Hopkins APRN - 05/30/2025 3:02 PM EST Images from the original note were not included. Department of Surgery Division of Surgical Oncology Surgery Progress Note 05/30/25 Dot Haynesaranza Subjective Subjective: HPI 69F with history of [...] by Drain (mL) 05/28/25 0700 - 05/28/25 18505/28/25 1900 - 05/29/25 0659 05/29/25 0700 - [...] place (removed on 04/23). Presented to the [facility] on 05/13/2025 with abdominal pain, rigors, diaphoresis, [...] Results from last 7 days Lab Units 05/30/2534605/29/25 0355 05/28/25 0459 05/27/25 0452 05/26/25 0550 [...] Results from last 7 days Lab Units 05/30/2534605/29/25 03505/28/25 0459 05/27/25 0452 05/26/25 0550 05/25/25 0507 05/24/25 0458 WBC 10*3/uL 9.27 13.07* 15.74* 14.09* 15.57* 15.22* 13.62* HEMOGLOBIN g/dL 8.9* 9.3* 9.8* 9.2* 9.7* 10.0* 10.0* HEMATOCRIT % 26.9* 28.4* 29.5* 28.2* 29.7* 30.2* 30.0* PLATELETS 10*3/uL 475* 469* 538* 584* 586* 538* 517* Results from last 7 days Lab Units 05/30/2534605/29/25 0355 05/28/25 0459 05/27/25 0452 05/26/25 0550 [...] Value Units Date/Time Blood Culture (Aerobic/Anaerobet Set) [[id number]] Collected: 05/14/25 023 Order Status: Completed Specimen: Blood from Wrist, Left Updated: 05/19/25 0601 Culture No growth at day 5 Narrative: Low blood volume submitted, results may be compromised Blood Culture (Aerobic/Anaerobet Set) [[id number]] Collected: 05/14/25 023 Order Status: Completed Specimen: Blood from Wrist, Right Updated: 05/19/25 0551 Culture No growth at day 5 Narrative: Low blood volume submitted, results may be compromised Body Fluid Culture and Gram Stain [[id number]] (Abnormal) (Susceptibility) Collected: 05/14/25 1647 Order Status: Completed Specimen: Body Fluid (specify site): Updated: 05/18/25 1436 Culture Heavy Growth 4+ Streptococcus constellatus Comment: This isolate has been identified using the FDA Approved [employer] System The organism value for this result has been updated. These results have been appended to the previously preliminary verified report. Edited result: Previously reported as Streptococcus species on 05/15/2025 at 1553 EST. 1+ Haemophilus parainfluenzae Comment: This isolate has been identified using the FDA Approved [employer] CA System The organism value for this [...] Temp 37.1 ??C (98.8 ??F) Resp 16 [place] Coma Scale Score: 15 Melchor Scale Score: [...] All meals supplement: Boost Very High Calorie [place] All meals supplement: Magic Cup Butter Pecan Quantity for All Meals of Magic Cup Butter Pecan One Quantity for All Meals of Boost Very High Calorie - [place] One 05/30/25 0830 05/27/25 2213 Adult diet Diet texture: Regular (Adult Diet Panel) Diet effective now References: IDDSI Diet Texture Guide Question: Diet texture Answer: Regular 05/27/252212 Current Medications Current Scheduled Medications[4] Current Continuous Medications[5] Current Anthropometrics: Admit weight: 70.6 kg Height: 162.6 cm (5' 4 ) [place] body weight: 54.7 kg (120 lb 9.5 [...] you, Carol Hull, PharmD PGY1 Acute Care Supplier Engineer Available via [employer] Secure Chat [1] Patient Active Problem List [...] protective * Progress Notes - Rosa Chapman, YOBANI - 05/30/2025 8:34 AM EST Images from the original note were not included. [facility] Department of Surgery Section of Thoracic Surgery [...] to waterseal this AM --Follow up CXR @[address] [place] [address] - No Toradol -Mobilize, IS, Nebs -Strip [...] Wellbeing Flowsheets (Taken 05/29/2025 1110 by Gail Espitia RN) Supportive Measures: active listening utilized Diversional Activities: television smartphone Spiritual Activities Assistance: affirmation provided Intervention: Develop Pain Management Plan Flowsheets (Taken 05/29/2025 2130) Pain Management Interventions: medication (see MAR) Intervention: Prevent or Manage Pain Flowsheets (Taken 05/29/2025 1110 by Gail Espitia, RN) Sensory Stimulation Regulation: auditory stimulation provided care clustered Complementary Therapy: essential oils utilized Bowel Elimination Promotion: adequate fluid intake promoted Sleep/Rest Enhancement: relaxation techniques promoted natural light exposure provided Medication Review/Management: medications reviewed Problem: Fall Injury Risk Goal: Absence of Fall and Fall-Related Injury Outcome: Ongoing, Progressing Intervention: Identify and Manage Contributors Flowsheets (Taken 05/29/2025 1110 by Gail Espitia RN) Medication Review/Management: medications reviewed Self-Care Promotion: independence encouraged Intervention: Promote Injury-Free Environment Flowsheets (Taken 05/29/20250 by Emily Palomino) Safety Promotion/Fall Prevention: activity [...] Promote and Optimize Oral Intake Flowsheets (Taken 05/29/20251109 by Gail Espitia RN) Oral Nutrition Promotion: physical activity promoted Nutrition Interventions: calorie count initiated Problem: Infection Goal: Absence of Infection Signs and Symptoms Outcome: Ongoing, Progressing Intervention: Prevent or Manage Infection Flowsheets Taken 05/29/2025 1900 by Rafal Post RN Isolation Precautions: precautions maintained Taken 05/29/20250 by Gail Espitia RN Infection Management: aseptic technique maintained Fever Reduction/Comfort Measures: lightweight clothing * Consults - Roberta Tidwell - 05/29/2025 6:57 PM EST Pastoral Care Note Referral From: Assembler Corncob Pipes Initiated Pastoral Care Provided For: Patient (Attempted) [...] Note Dot Dale 69 y.o. female CSN: [id number] Admission: 05/13/2025 6:45 PM Primary Problem: Peripancreatic [...] DC plan of care ongoing Accepted by [facility] home health pt ,ot ,sn, and [employer] [...] in Care Family/Caregiver Present: Yes Family/Caregiver: Spouse Timber Inspector: Not Applicable Presentation Oxygen Therapy: None (Room [...] independence. Bed Mobility Exam: Rolling/Turning Level of [place]: Minimum assist (75% patient effort) Physical/Nonphysical Assist: Set-up required, Verbal Cues, Nonverbal cues (demo/gestures) Assistive Device: Bed rails Bed Mobility Exam: Scooting/Bridging Level of [place]: Minimum assist (75% patient's effort) (scooting to edge of bed in sitting) Physical/Nonphysical Assist: Set-up required, Verbal Cues, Nonverbal cues (demo/gestures) Assistive Device: Bed rails Bed Mobility Exam: Supine to Sit Level of [place]: Moderate assist (50% patient's effort) Physical/Nonphysical Assist: [...] Transfer Exam: Sit to stand Level of [place]: Minimum assist (75% patient's effort) Physical/Nonphysical Assist: Set-up required, Verbal Cues, Nonverbal cues (demo/gestures), Additional assist utilized for safety Assistive Device: Walker, rolling Transfer Exam: Stand to Sit Level of [place]: Minimum assist (75% patient's effort) Physical/Nonphysical Assist: Set-up required, Verbal Cues, Nonverbal cues (demo/gestures), Additional assist utilized for safety Assistive Device: Walker, rolling Transfer Exam: Bed to Chair/Chair to Bed Level of [place]: Minimum assist (75% patient's effort) Physical/Nonphysical Assist: [...] from the original note were not included. [facility] of Medicine Department of Surgery Section of Thoracic Surgery [...] last 7 days Lab Units 05/29/25 0355 05/28/259 05/27/25 0452 HEMOGLOBIN g/dL 9.3* 9.8* 9.2* HEMATOCRIT % 28.4* 29.5* 28.2* INR Cr Results from last 7 days Lab Units 05/29/25 0355 05/28/25 0459 05/27/25 0452 CREATININE mg/dL 0.46* 0.46* 0.46* Medications reviewed. [...] place (removed on 04/23). Presented to the [facility] on 05/13/2025 with abdominal pain, rigors, diaphoresis, [...] BUN mg/dL 15 14 12 12 12 11 CREATININE mg/dL 0.46* [...] Value Units Date/Time Blood Culture (Aerobic/Anaerobet Set) [[id number]] Collected: 05/14/25 0232 Order Status: Completed Specimen: Blood from Wrist, Left Updated: 05/19/25 0601 Culture No growth at day 5 Narrative: Low blood volume submitted, results may be compromised Blood Culture (Aerobic/Anaerobet Set) [[id number]] Collected: 05/14/25 0232 Order Status: Completed Specimen: Blood from Wrist, Right Updated: 05/19/25 0551 Culture No growth at day 5 Narrative: Low blood volume submitted, results may be compromised Body Fluid Culture and Gram Stain [[id number]] (Abnormal) (Susceptibility) Collected: 05/14/25 1647 Order Status: Completed Specimen: Body Fluid (specify site): Updated: 05/18/25 1436 Culture Heavy Growth 4+ Streptococcus constellatus Comment: This isolate has been identified using the FDA Approved [employer] System The organism value for this result has been updated. These results have been appended to the previously preliminary verified report. Edited result: Previously reported as Streptococcus species on 05/15/2025 at 1553 EST. 1+ Haemophilus parainfluenzae Comment: This isolate has been identified using the FDA Approved [employer] CA System The organism value for this [...] All meals supplement: Boost Very High Calorie [place] Quantity for All Meals of Boost Very High Calorie - Vanilla One Quantity for All Meals of Boost Very High Calorie - Chocolate One Quantity for All Meals of Boost Very High Calorie - [place] One 05/27/25 221 Current Medications Current Scheduled Medications[4] Current Continuous Medications[5] Current Anthropometrics: Admit weight: 70.6 kg Height: 162.6 cm (5' 4 ) [place] body weight: 54.7 kg (120 lb 9.5 [...] plan with the IV room. Thank you, Nery AguilarD PGY1 Acute Care Supplier Engineer Available via [employer] Secure Chat [1] Patient Active Problem List [...] Surgical Oncology Surgery Progress Note 05/29/25 Dot Dale Subjective Subjective: HPI 69F with [...] chest tube-28Fr 20 (73) Edited by: Flora Salvador DO at 05/29/2025 1517 Review of Systems: Relevant review of systems [...] CVA on aspirin, HLD who presented to [facility] 05[facility] with nausea, vomiting, and peripancreatic fluid [...] Edited by: Flora Salvador DO at 05/29/2025 0754 Dispo: Continue Current Level of Care Flora [...] (Individualized) Outcome: Ongoing, Progressing Flowsheets (Taken 05/28/2025 190) Patient/Family-Specific Goals (Include Timeframe): Patient will report pain at or below a tolerablelevel through end of shift. Individualized Care Needs: Ongoing Anxieties, Fears or Concerns: Pain control Goal: Optimal Comfort and Wellbeing Outcome: Ongoing, Progressing Intervention: Monitor Pain and Promote Comfort Flowsheets (Taken 05/28/20252212) Pain Management Interventions: medication (see MAR) Intervention: Provide Person-Centered Care Flowsheets (Taken 05/28/2025 1228 by José Miguel Weathers, RN) Trust Relationship/Rapport: care explained choices provided emotional support provided empathic listening provided questions answered questions encouraged reassurance provided thoughts/feelings acknowledged Problem: Pain Acute Goal: Optimal Pain Control and Function Outcome: Ongoing, Progressing Intervention: Optimize Psychosocial Wellbeing Flowsheets (Taken 05/28/2025 1228 by José Miguel Weathers, RN) Supportive Measures: active listening utilized Diversional [...] Identify and Manage Contributors Flowsheets (Taken 05/28/2025 1228 by José Miguel Weathers RN) Medication Review/Management: [...] 05/28/2025 1228 by José Miguel Weathers RN) Oral Nutrition Promotion: physical activity promoted [...] from the original note were not included. [facility] Department of Surgery Section of Thoracic Surgery [...] Prevent or Manage Pain Flowsheets (Taken 05/28/2025 122) Sensory Stimulation Regulation: quiet environment promoted Bowel [...] and Optimize Oral Intake Flowsheets (Taken 05/28/2025 122) Oral Nutrition Promotion: physical activity promoted Nutrition [...] Level of Mobility Ambulatory- household only Mobility [place] Independent gait with device (RW) History of [...] unaware when pt may be [facility] from [facility]. Pt is agreeable to working with PT at this time Timber Inspector (if applicable) Timber Inspector: Not Applicable OBJECTIVE & INTERVENTIONS PAIN Pain [...] status. Pt participatedin bed mobility, supine-sit and [id number] transfers. They were able to progress to [...] appropriate activity pacing. BED MOBILITY Level of [place] Physical/Non- physical Assist Adaptive Equipment Utilized Supine to Sit Maximum assist (25% patient's effort) Set-up required, Verbal Cues, HOB elevated, Moderate cues, Additional assist utilized for safety Draw sheet TRANSFERS Level of [place] Physical/Non- physical Assist Adaptive Equipment Utilized Sit to Stand Minimum assist (75% patient's effort) Set-up required, Verbal Cues, Minimal cues, Additional assist utilized for safety Walker, rolling Stand to sit Minimum assist (75% patient's effort) Verbal Cues, Minimal cues, Additional assist utilized for safety, Set-up required Walker, rolling BALANCE Postural Appearance Posture: Forward head, Rounded shoulders Level of [place] Balance Support Facilitated Activities Static Sit Standby [...] shifts, Reaching for objects AMBULATION Level of [place] Distance Adaptive Equipment Utilized Ambulation Contact guard assist, Minimal verbal cues, Minimal tactile cues, Additional assist utilized for safety 50 ft Rolling walker Comments Pt self limits ambulation distance secondary to fatigue. Gait pattern: slow lilli, decreased stride length and step height. PT presence was necessary for: * decreasing patient's risk of falling while progressing pt's distances Standardized Assessments [facility] 6-Clicks Mobility Assessment Difficulty patient has turning [...] climbing 3-5 steps with a railing?: Unable [facility] 6-Clicks Mobility Assessment Total : 14 ASSESSMENT [...] at 1:11 PM. * Progress Notes - RandolphCarlos - 05/28/2025 11:59 AM EST Occupational Therapy Treatment Patient Name: Dot Dale Today's Date: 05/28/2025 OT Discharge Recommendations: Home with 24 hour assistance, Home health OT, Home health PT Equipment Recommended: Patient owns appropriate equipment Subjective Pt agreeable to OT session this date. Participants in Care Family/Caregiver Present: Yes Family/Caregiver: Spouse Timber Inspector: Not Applicable Presentation Oxygen Therapy: None (Room [...] Mobility Exam: Supine to Sit Level of [place]: Maximum assist (25% patient's effort) Physical/Nonphysical Assist: Set-up required, Verbal Cues, HOB elevated, Moderate cues, Additional assist utilized for safety Transfers Transfer Exam: Sit to stand Level of [place]: Minimum assist (75% patient's effort) Physical/Nonphysical Assist: Set-up required, Verbal Cues, Minimal cues, Additional assist utilizedfor safety Assistive Device: Walker, rolling Transfer Exam: Stand to Sit Level of [place]: Minimum assist (75% patient's effort) Physical/Nonphysical Assist: [...] on aspirin, HLD who presented to the [facility] on 05/13/2025 with abdominal pain, rigors, diaphoresis, [...] 0507 05/24/25 0458 05/23/25 0429 05/22/25 0353 GLUCOSE mg/dL 168* 154* 170* 151* [...] Value Units Date/Time Blood Culture (Aerobic/Anaerobet Set) [[id number]] Collected: 05/14/25231 Order Status: Completed Specimen: Blood from Wrist, Left Updated: 05/19/25 0601 Culture No growth at day 5 Narrative: Low blood volume submitted, results may be compromised Blood Culture (Aerobic/Anaerobet Set) [[id number]] Collected: 05/14/25231 Order Status: Completed Specimen: Blood from Wrist, Right Updated: 05/19/25 0551 Culture No growth at day 5 Narrative: Low blood volume submitted, results may be compromised Body Fluid Culture and Gram Stain [[id number]] (Abnormal) (Susceptibility) Collected: 05/14/25 1647 Order Status: Completed Specimen: Body Fluid (specify site): Updated: 05/18/25 1436 Culture Heavy Growth 4+ Streptococcus constellatus Comment: This isolate has been identified using the FDA Approved Basic6yper CA System The organism value for this result has been updated. These results have been appended to the previously preliminary verified report. Edited result: Previously reported as Streptococcus species on 05/15/2025 at 1553 EST. 1+ Haemophilus parainfluenzae Comment: This isolate has been identified using the FDA Approved Basic6yper CA System The organism value for this [...] 36.9 ??C (98.4 ??F) (Oral) Resp 25 [place] Coma Scale Score: 15 Melchor Scale Score: [...] Guide Question: Diet texture Answer: Regular 05/27/253 05/27/25 221 Oral nutrition supplements (Adult Diet Panel) Until discontinued Question Answer Comment Supplement frequency: All meals All meals supplement: Boost Very High Calorie Vanilla All meals supplement: Boost Very High Calorie Chocolate All meals supplement: Boost Very High Calorie [place] Quantity for All Meals of Boost Very High Calorie - Vanilla One Quantity for All Meals of Boost Very High Calorie - Chocolate One Quantity for All Meals of Boost Very High Calorie - [place] One 05/27/252212 Current Medications Current Scheduled Medications[4] Current Continuous Medications[5] Current Anthropometrics: Admit weight: 70.6 kg Height: 162.6 cm (5' 4 ) [place] body weight: 54.7 kg (120 lb 9.5 [...] you, Carol Hull, PharmD PGY1 Acute Care Supplier Engineer Available via [employer] Secure Chat [1] Patient Active Problem List [...] (hyperlipidemia) Overview Addendum 03/28/2025 8:24 AM by Hopkins, Katlyn H, MOBILE ARCHITECT Continue statin History of CVA (cerebrovascular accident) [...] Addendum 04/04/2025 9:18 AM by Katlyn Hopkins MOBILE ARCHITECT - initiated on 03/30/25, continue on dc [...] Hager MD - 05/27/2025 9:37 PM EST [facility] Department of Surgery Division of Thoracic Surgery [...] nursing staff. I have notified senior resident/attending management consultant with any issues or concerns. Jodie Hager [...] PM EST Operative Note Date: 05/27/25 Location: [facility] OR Name: Dot Dale : 1955, Diagnoses: Pre-op Diagnosis Empyema Post-op Diagnosis Empyema Procedure(s): Diagnostic and therapeutic flexible bronchoscopy Left VATS total pulmonary decortication Attending Surgeon(s): * Dylon Griggs - Primary Psychotherapist Counselor(s): * Xavier Marsh DO - Resident - [...] cm anterior axillary line port at the 5thand 8th interspaces. We continued to perform lysis of adhesions until the lung was completely freedfrom the chest wall. A large pocket of pus/fibrinous materal between the posterior lung and chest wall, extending from diaphragm to chest apex, was encountered during this dissection. We turned our attention to decortication. A well-developed and very adherent rind was present along the entire lungsurface and the fissures were completely obscured. Using tedious blunt dissection the rind was freed from all lobes and the fissures were freed as well. The lungs expanded well with valsalva. We place a posterior 28 Fr straight chest tube and an inferior 24 Fr Jaya chest tube. The incisions were closed in a multi-layered fashion with 0-Vicryl at the chest wall fascia, 3-0 Vicryl deep dermals and4-0 Monocryl subcuticular. The incisions were cleansed and Dermabond applied. The patient was removed from general anesthesia and awoke without difficulty. The patient was transported to the [facility] in stable condition. All sponge and instrument counts were correct at the conclusion of the case. I was present and scrubbed for the entire case. Complications: None; patient tolerated the procedure well. Submitted by: Dylon Griggs MD - 05/28/2025 * Brief Op Note - Xavier Marsh DO - 05/27/2025 4:00 PM EST Date: 05/27/25 Location: [facility] OR Name: Dot Dale : 1955, Diagnoses: Pre-op Diagnosis Pleural effusion Post-op Diagnosis Pleural effusion Procedure(s): Left VATS, decortication Attending Surgeon(s): * Dylon Griggs - Primary Psychotherapist Counselor(s): * Xavier Marsh DO - Resident - [...] the procedure(s). * Progress Notes - Josee Hull, PharmAnatoly - 05/27/2025 11:13 AM EST Images from the original note were not included. Pharmacist TPN Progress Note Patient: Dot Dale Age: 69 y.o. Admission Date: [id number] Subjective/Objective/Hospital Course: 69 y.o. female with PMHx significant for IPMN s/p distal pancreatectomy and splenectomy on 03/20/25, history of CVA on aspirin, HLD who presented to the [facility] on 05/13/2025 with abdominal pain, rigors, diaphoresis, [...] 0550 05/25/25 0507 05/24/25 0458 05/23/25 0429 11/27/35205/21/25 0315 GLUCOSE mg/dL 154* 170* 151* 167* [...] Units 05/27/25 0452 05/26/25 0550 05/25/25 0507 05/24/2545705/23/2542805/22/2535205/21/25314 WBC 10*3/uL 14.09* 15.57* 15.22* 13.62* 13.42* 14.71* 18.72* HEMOGLOBIN g/dL 9.2* 9.7* 10.0* 10.0* 10.4* 10.6* 11.6 HEMATOCRIT % 28.2* 29.7* 30.2* 30.0* 30.4* 32.3* 34.3 PLATELETS 10*3/uL 584* 586* 538* 517* 517* 444* 419* Results from last 7 days Lab Units 05/27/25 0452 05/26/25 0550 05/25/25 0507 05/24/25 0458 05/23/25 04205/22/2535205/21/25 031 ALT U/L 12 14 13 10 8* [...] Value Units Date/Time Blood Culture (Aerobic/Anaerobet Set) [[id number]] Collected: 05/14/25 0232 Order Status: Completed Specimen: Blood from Wrist, Left Updated: 05/19/25 0601 Culture No growth at day 5 Narrative: Low blood volume submitted, results may be compromised Blood Culture (Aerobic/Anaerobet Set) [[id number]] Collected: 05/14/25 0232 Order Status: Completed Specimen: Blood from Wrist, Right Updated: 05/19/25 0551 Culture No growth at day 5 Narrative: Low blood volume submitted, results may be compromised Body Fluid Culture and Gram Stain [[id number]] (Abnormal) (Susceptibility) Collected: 05/14/25 1647 Order Status: Completed Specimen: Body Fluid (specify site): Updated: 05/18/25 1436 Culture Heavy Growth 4+ Streptococcus constellatus Comment: This isolate has been identified using the FDA Approved Bonfaireer CA System The organism value for this result has been updated. These results have been appended to the previously preliminary verified report. Edited result: Previously reported as Streptococcus species on 05/15/2025 at 1553 EST. 1+ Haemophilus parainfluenzae Comment: This isolate has been identified using the FDA Approved Basic6yper CA System The organism value for this [...] kg Height: 162.6 cm (5' 4 ) [place] body weight: 54.7 kg (120 lb 9.5 [...] you, Carol Hull, NeryD PGY1 Acute Care Supplier Engineer Available via [employer] Secure Chat [1] Patient Active Problem List [...] of Surgical Oncology Surgery Progress Note 05/27/25 Dot Dale Subjective Subjective: HPI 69F with [...] 05/26/25 0659 05/26/25 0700 - 05/26/25 1859 05/26/251899 - 05/27/25 0659 05/27/25 0700 - 05/27/25 [...] Signed 03/21/2025 9:54 AM by Katlyn Hopkins MOBILE ARCHITECT - daily/PRN CMP, Mg, Phos - replete [...] she feels constant discomfort. She asked for in house counsel to keep her in prayer. Plan to follow up tomorrow and assured them of availability of in house counsel at any time. Pastoral Care Provided For: Patient, Spouse Patient Profile: Consult Reasons: Pre-surgery, Emotional support, Spiritual support Spiritual Assessment: Support Systems/ Spiritual Resources: Family, Светлана, Prayer Spiritual Needs: Emotional support, Spiritual support, Prayer Spiritual Issues: Chronic pain/ illness, Anxious(ness), Discouraged Interventions: Interventions Provided: Introduced Patient/Family to [employer], Emotional support, Family support, Identify faith/ spiritual coping, Spiritual support, Supportive Listening, Consulted with care team Pastoral Care Outcomes: Patient Outcomes: Identifies spiritual or faith practices as helpful, Expresses intent to participate/comply [...] scheduled Intervention: Prevent Skin Injury Flowsheets Taken 05/26/20251434 Skin Protection: protective footwear used incontinence pads [...] Intervention: Prevent or Manage Pain Flowsheets (Taken 05/26/20251434) Sensory Stimulation Regulation: lighting decreased Complementary Therapy: [...] Intervention: Optimize Skin Protection Flowsheets Taken 05/26/2025 1435 Activity Management: activity adjusted per tolerance Pressure Reduction Techniques: frequent weight shift encouraged Skin Protection: protective footwear used incontinence pads utilized Taken 05/26/2025 0700 Head of Bed (HOB) Positioning: HOB elevated Intervention: Promote and Optimize Oral Intake Flowsheets (Taken 05/26/2025 143) Oral Nutrition Promotion: rest periods promoted physical [...] Note Dot Dale 69 y.o. female CSN: [id number] Admission: 05/13/2025 6:45 PM Primary Problem: Peripancreatic [...] per TSS Patient has been accepted by [facility] for home TPN. DC plan of care ongoing. Katie Pena RN * Consults - Fannie Silverman RD - 05/26/2025 10:07 AM EST Adult Nutrition Evaluation Note Dot Dale 69 y.o. female CSN: [id number] Room/Bed 121/121A Nutrition evaluation type: follow-up Reason [...] (Calculated): 25.27 Weight Evaluation: Overweight (BMI 25-29.9) [place] Body Weight (kg): 54.5 Percent [place] Body Weight: 123 Wt Readings from Last [...] >80% of EER Acuity Level: 1 Fannie Silverman, RD [1] Past Medical History: Diagnosis Date [...] Intravenous, q12h * Progress Notes - Conrado Park APRN - 05/26/2025 9:42 AM EST Images from the original note were not included. Department of Surgery Division of Surgical Oncology Surgery Progress Note 05/26/25 Praneethadrianna Chito Subjective Subjective: HPI 69F with history [...] Chest tube 25 Edited by: Conrado Park, YOBANI at 05/26/2025 0940 Review of Systems: Relevant [...] on aspirin, HLD who presented to the [facility] on 05/13/2025 with abdominal pain, rigors, diaphoresis, [...] Units 05/26/25 0550 05/25/25 0507 05/24/25 0458 05/23/259 05/22/2535205/21/255 05/20/25 0132 ALT U/L 14 13 10 8* [...] Value Units Date/Time Blood Culture (Aerobic/Anaerobet Set) [[id number]] Collected: 05/14/25 0232 Order Status: Completed Specimen: Blood from Wrist, Left Updated: 05/19/25 06 Culture No growth at day 5 Narrative: Low blood volume submitted, results may be compromised Blood Culture (Aerobic/Anaerobet Set) [[id number]] Collected: 05/14/25 0232 Order Status: Completed Specimen: Blood from Wrist, Right Updated: 05/19/25 0551 Culture No growth at day 5 Narrative: Low blood volume submitted, results may be compromised Body Fluid Culture and Gram Stain [[id number]] (Abnormal) (Susceptibility) Collected: 05/14/25 1647 Order Status: Completed Specimen: Body Fluid (specify site): Updated: 05/18/25 1436 Culture Heavy Growth 4+ Streptococcus constellatus Comment: This isolate has been identified using the FDA Approved Atlas Scientific CA System The organism value for this result has been updated. These results have been appended to the previously preliminary verified report. Edited result: Previously reported as Streptococcus species on 05/15/2025 at 1553 EST. 1+ Haemophilus parainfluenzae Comment: This isolate has been identified using the FDA Approved Atlas Scientific CA System The organism value for this [...] 36.7 ??C (98.1 ??F) (Oral) Resp 17 [place] Coma Scale Score: 15 Melchor Scale Score: [...] kg Height: 162.6 cm (5' 4 ) [place] body weight: 54.7 kg (120 lb 9.5 [...] plan with the IV room. Thank you, Oli Espinoza PharmD Candidate Preceptor: Nery McleodD [1] Patient Active Problem List Diagnosis CN [...] 1:45 PM EST Associated attestation - Anni Iqbal, PharmD - 05/26/2025 1:45 PM EST I [...] Goal: Patient-Specific Goal (Individualized) Flowsheets (Taken 05/25/2025 08) Patient/Family-Specific Goals (Include Timeframe): pt will be [...] Function Intervention: Optimize Psychosocial Wellbeing Flowsheets (Taken 05/25/20258) Supportive Measures: active listening utilized Diversional Activities: television Spiritual Activities Assistance: hope instilled Intervention: Develop Pain Management Plan Flowsheets (Taken 05/25/2025 1650) Pain Management Interventions: declines Intervention: Prevent or Manage Pain Flowsheets (Taken 05/25/20258) Sensory Stimulation Regulation: care clustered Bowel Elimination [...] treatment, delayed treatment, alternative treatment and observation [place] protocol: Procedure explained and questions answered to [...] portions of the procedure(s) and immediately available [facility] services the entire duration. See resident note [...] on aspirin, HLD who presented to the [facility] on 05/13/2025 with abdominal pain, rigors, diaphoresis, [...] days Lab Units 05/25/25 05005/24/2545705/23/2542805/22/2535205/21/2531405/20/25 0132 05/19/25 042 GLUCOSE mg/dL 151* 167* 177* 164* 116* [...] last 7 days Lab Units 05/25/25 05005/24/2545705/23/2542805/22/2535205/21/2531405/20/2513105/19/25 042 WBC 10*3/uL 15.22* 13.62* 13.42* 14.71* 18.72* 18.96* 10.29 HEMOGLOBIN g/dL 10.0* 10.0* 10.4* 10.6* 11.6 13.1 11.3 HEMATOCRIT % 30.2* 30.0* 30.4* 32.3* 34.3 39.1 33.6* PLATELETS 10*3/uL 538* 517* 517* 444* 419* 479* 380* Results from last 7 days Lab Units 05/25/25 05005/24/2545705/23/2542805/22/2535225 0315 05/20/25 0132 05/19/25 0422 ALT U/L 13 10 [...] Value Units Date/Time Blood Culture (Aerobic/Anaerobet Set) [[id number]] Collected: 05/14/25231 Order Status: Completed Specimen: Blood from Wrist, Left Updated: 05/19/25 0601 Culture No growth at day 5 Narrative: Low blood volume submitted, results may be compromised Blood Culture (Aerobic/Anaerobet Set) [[id number]] Collected: 05/14/25231 Order Status: Completed Specimen: Blood from Wrist, Right Updated: 05/19/25 0551 Culture No growth at day 5 Narrative: Low blood volume submitted, results may be compromised Body Fluid Culture and Gram Stain [[id number]] (Abnormal) (Susceptibility) Collected: 05/14/25 1647 Order Status: Completed Specimen: Body Fluid (specify site): Updated: 05/18/25 1436 Culture Heavy Growth 4+ Streptococcus constellatus Comment: This isolate has been identified using the FDA Approved Atlas Scientific CA System The organism value for this result has been updated. These results have been appended to the previously preliminary verified report. Edited result: Previously reported as Streptococcus species on 05/15/2025 at 1553 EST. 1+ Haemophilus parainfluenzae Comment: This isolate has been identified using the FDA Approved Bonfaireer CA System The organism value for this [...] 37.1 ??C (98.8 ??F) (Oral) Resp 25 [place] Coma Scale Score: 15 Melchor Scale Score: [...] kg Height: 162.6 cm (5' 4 ) [place] body weight: 54.7 kg (120 lb 9.5 [...] room. Thank you, Maria R Lyles, PharmD, [facility] Surgery Clinical Pharmacist Available on Secure Chat [...] Surgical Oncology Surgery Progress Note 05/25/25 Dot Chito Subjective Subjective: HPI 69F with [...] Overview Addendum 03/31/2025 7:55 AM by Katlyn oHpkins APRN Hx of Abnormal blood electrolyte level [...] maintained * Progress Notes - Maria R Lyles PharmD - 05/24/2025 12:55 PM EST Images from the original note were not included. Pharmacist TPN Progress Note Patient: Dot Dale Age: 69 y.o. Admission Date: [id number] Subjective/Objective/Hospital Course: 69 y.o. female with PMHx significant for IPMN s/p distal pancreatectomy and splenectomy on 03/20/25, history of CVA on aspirin, HLD who presented to the [facility] on 05/13/2025 with abdominal pain, rigors, diaphoresis, [...] Lab Units 05/24/25 0458 05/23/25 0429 05/22/25 35205/21/2531405/20/2513105/19/2542105/18/25 0433 GLUCOSE mg/dL 167* 177* 164* 116* [...] Value Units Date/Time Blood Culture (Aerobic/Anaerobet Set) [[id number]] Collected: 05/14/25 0232 Order Status: Completed Specimen: Blood from Wrist, Left Updated: 05/19/25 0601 Culture No growth at day 5 Narrative: Low blood volume submitted, results may be compromised Blood Culture (Aerobic/Anaerobet Set) [[id number]] Collected: 05/14/25 0232 Order Status: Completed Specimen: Blood from Wrist, Right Updated: 05/19/25 0551 Culture No growth at day 5 Narrative: Low blood volume submitted, results may be compromised Body Fluid Culture and Gram Stain [[id number]] (Abnormal) (Susceptibility) Collected: 05/14/25 1647 Order Status: Completed Specimen: Body Fluid (specify site): Updated: 05/18/25 1436 Culture Heavy Growth 4+ Streptococcus constellatus Comment: This isolate has been identified using the FDA Approved Bonfaireer CA System The organism value for this result has been updated. These results have been appended to the previously preliminary verified report. Edited result: Previously reported as Streptococcus species on 05/15/2025 at 1553 EST. 1+ Haemophilus parainfluenzae Comment: This isolate has been identified using the FDA Approved Basic6yper CA System The organism value for this [...] kg Height: 162.6 cm (5' 4 ) [place] body weight: 54.7 kg (120 lb 9.5 [...] room. Thank you, Maria R Lyles, PharmD, [facility] Surgery Clinical Pharmacist Available on Secure Chat [...] Surgical Oncology Surgery Progress Note 05/24/25 Dot Dale Subjective Subjective: HPI 69F with [...] Goal (Individualized) Outcome: Ongoing, Progressing Flowsheets (Taken 05/24/2025804) Patient/Family-Specific Goals (Include Timeframe): pt will report pain level tolerable with currentpain medication regimen during this shift Individualized Care Needs: pain mgmt Anxieties, Fears or Concerns: pt frustrated with tubes/wires Goal: Absence of Hospital-Acquired Illness or Injury Outcome: Ongoing, Progressing Intervention: Identify and Manage Fall Risk Flowsheets (Taken 05/24/2025 0805) Safety Promotion/Fall Prevention: assistive device/personal items within reach clutter-free environment maintained lighting adjusted nonskid shoes/slippers when out of bed room organization consistent Intervention: Prevent Skin Injury Flowsheets Taken 05/24/2025 115 Skin Protection: protective footwear used Taken 05/24/2025 [...] on aspirin, HLD who presented to the [facility] on 05/13/2025 with abdominal pain, rigors, diaphoresis, [...] last 7 days Lab Units 05/23/2542805/22/25 0353 05/21/255 05/20/25 0132 05/19/25 0422 05/18/25 0433 05/17/25 [...] Value Units Date/Time Blood Culture (Aerobic/Anaerobet Set) [[id number]] Collected: 05/14/25231 Order Status: Completed Specimen: Blood from Wrist, Left Updated: 05/19/25 0601 Culture No growth at day 5 Narrative: Low blood volume submitted, results may be compromised Blood Culture (Aerobic/Anaerobet Set) [[id number]] Collected: 05/14/25231 Order Status: Completed Specimen: Blood from Wrist, Right Updated: 05/19/25 0551 Culture No growth at day 5 Narrative: Low blood volume submitted, results may be compromised Body Fluid Culture and Gram Stain [[id number]] (Abnormal) (Susceptibility) Collected: 05/14/25 1647 Order Status: Completed Specimen: Body Fluid (specify site): Updated: 05/18/25 1436 Culture Heavy Growth 4+ Streptococcus constellatus Comment: This isolate has been identified using the FDA Approved Bonfaireer CA System The organism value for this result has been updated. These results have been appended to the previously preliminary verified report. Edited result: Previously reported as Streptococcus species on 05/15/2025 at 1553 EST. 1+ Haemophilus parainfluenzae Comment: This isolate has been identified using the FDA Approved Basic6yper CA System The organism value for this [...] 36.9 ??C (98.4 ??F) (Oral) Resp 20 [place] Coma Scale Score: 15 Melchor Scale Score: [...] kg Height: 162.6 cm (5' 4 ) [place] body weight: 54.7 kg (120 lb 9.5 [...] room. Thank you, Maria R Lyles, PharmD, [facility] Surgery Clinical Pharmacist Available on Secure Chat [...] Units 05/23/25 0429 05/22/25 0353 05/21/25 0315 HEMOGLOBIN g/dL 10.4* 10.6* 11.6 HEMATOCRIT % 30.4* 32.3* 34.3 INR Cr Results from last 7 days Lab Units 05/23/25 0429 05/22/25 0353 05/21/25 0315 CREATININE mg/dL 0.43* 0.54* [...] Edited by: Luisito Howard MD at 05/23/2025 6605 Dispo: Continue Current Level of Care Luisito [...] Plan - Rylie Valentin RN - 05/23/2025 2:43 AM EST Problem: [...] Prevent or Manage Infection Flowsheets (Taken 05/23/2025 024) Infection Management: aseptic technique maintained Fever Reduction/Comfort [...] on aspirin, HLD who presented to the [facility] on 05/13/2025 with abdominal pain, rigors, diaphoresis, [...] from last 7 days Lab Units 05/22/25 03505/21/2531405/20/252 05/19/252 05/18/25 0433 05/17/25 0003 05/16/25 0020 WBC 10*3/uL 14.71* 18.72* 18.96* 10.29 9.04 10.73* 14.66* HEMOGLOBIN g/dL 10.6* 11.6 13.1 11.3 10.9* 11.2 11.0* HEMATOCRIT % 32.3* 34.3 39.1 33.6* 32.1* 33.3* 33.1* PLATELETS 10*3/uL 444* 419* 479* 380* 355 329 301 Results from last 7 days Lab Units 05/22/2535205/21/2531405/20/2513105/19/252 05/18/25 0433 05/17/25 0003 05/16/25 0020 ALT U/L 5* [...] Value Units Date/Time Blood Culture (Aerobic/Anaerobet Set) [[id number]] Collected: 05/14/25 0232 Order Status: Completed Specimen: Blood from Wrist, Left Updated: 05/19/25 06 Culture No growth at day 5 Narrative: Low blood volume submitted, results may be compromised Blood Culture (Aerobic/Anaerobet Set) [[id number]] Collected: 05/14/25 0232 Order Status: Completed Specimen: Blood from Wrist, Right Updated: 05/19/25 0551 Culture No growth at day 5 Narrative: Low blood volume submitted, results may be compromised Body Fluid Culture and Gram Stain [[id number]] (Abnormal) (Susceptibility) Collected: 05/14/25 1647 Order Status: Completed Specimen: Body Fluid (specify site): Updated: 05/18/25 1436 Culture Heavy Growth 4+ Streptococcus constellatus Comment: This isolate has been identified using the FDA Approved [employer] CA System The organism value for this result has been updated. These results have been appended to the previously preliminary verified report. Edited result: Previously reported as Streptococcus species on 05/15/2025 at 1553 EST. 1+ Haemophilus parainfluenzae Comment: This isolate has been identified using the FDA Approved [employer] CA System The organism value for this [...] 36.7 ??C (98.1 ??F) (Oral) Resp 19 [place] Coma Scale Score: 15 Melchor Scale Score: [...] kg Height: 162.6 cm (5' 4 ) [place] body weight: 54.7 kg (120 lb 9.5 [...] the IV room. Thank you, Maria R Rafal, PharmD, [facility] Surgery Clinical Pharmacist Available on Secure Chat [...] mL/hr (05/21/252033) * Care Plan - Ele Estrada, RN - 05/22/2025 10:38 AM EST Problem: Adult Inpatient Plan of Care Goal: Plan of Care Review Outcome: Ongoing, Progressing Flowsheets (Taken 05/22/2025 103) Progress: no change Outcome Evaluation: pt unwilling [...] Identify and Manage Fall Risk Flowsheets (Taken 05/22/2025 103) Safety Promotion/Fall Prevention: activity supervised clutter-free environment maintained nonskid shoes/slippers when out of bed safety round/check completed Intervention: Prevent Skin Injury Flowsheets (Taken 05/22/2025 103) Body Position: weight shifting Skin Protection: incontinence [...] Intervention: Optimize Skin Protection Flowsheets (Taken 05/22/2025 1032) Activity Management: activity adjusted per tolerance Pressure Reduction Techniques: frequent weight shift encouraged Pressure Reduction Devices: pressure-redistributing mattress utilized Skin Protection: incontinence pads utilized Head of Bed (HOB) Positioning: HOB elevated Intervention: Promote and Optimize Oral Intake Flowsheets (Taken 05/22/2025 1032) Oral Nutrition Promotion: physical activity promoted Nutrition [...] of Surgical Oncology Surgery Progress Note 05/22/25 Praneethadrianna Chito Subjective Subjective: HPI 69F with history [...] I/O: UOP 650+ x1, BMx0 Edited by: hSari Leslie MD at 05/22/2025 1006 Review of [...] Results from last 7 days Lab Units 05/22/2535205/21/2531405/20/25 0132 HEMOGLOBIN g/dL 10.6* 11.6 13.1 HEMATOCRIT % 32.3* 34.3 39.1 INR Cr Results from last 7 days Lab Units 05/22/25 03505/21/2531405/20/25 013 CREATININE mg/dL 0.54* 0.61 0.53* Lactate No lab exists for component: LACTTEVEN Radiographic Interpretation: I have reviewed the imaging above and agree with the radiologist interpretation. CT Guided Chest Tube Left Result Date: 05/21/[address]-guided left-sided 10 Niuean chest tube placement. PLAN: -Chest tube maintenance [...] from the original note were not included. [facility] Department of Surgery Division of Thoracic Surgery [...] Left Final Result Successful CT-guided left-sided 10 Niuean chest tube placement. PLAN: -Chest tube maintenance [...] been discussed with Dr. Griggs, Attending Physician aJyesh Simon Thoracic Surgery [1] Past Medical History: [...] mg 81 mg Oral Daily Conrado Park APRN 81 mg at 05/22/25 0803 glucose (Glutose) [...] 40 mg 40 mg Subcutaneous Daily Conrado Park MOBILE ARCHITECT 40 mg at 05/22/25 0803 fat emulsion fish/plant based (SMOFlipid) 20 % IV infusion 250 mL 250 mL Intravenous Every other day Ashwin Hopkinsah Clyde MOBILE ARCHITECT 20.8 mL/hr at 05/21/25 0831 250 mL at 05/21/25 0831 HYDROmorphone (Dilaudid) injection 0.5 mg 0.5 mg Intravenous q4h PRN Yo Maria MD 0.5 mg at 05/21/25 1902 insulin regular (HumuLIN R,NovoLIN R) 100 units/mL injection - Correction - Resistant Dose 0-10 Units Subcutaneous q6h [facility] Tierney Sosa PA 2 Units at 05/21/25 [...] mL Intravenous q1h PRN Lokesh Anderson MD Cosigned by Dylon Griggs MD at [...] and patient condition. * Care Plan - Lcui Silvestre RN - 05/22/2025 12:32 AM EST Problem: Adult Inpatient Plan of Care Goal: Plan of Care Review Outcome: Ongoing, Progressing Flowsheets Taken 05/21/2025 1400 by Evan Simpson RN Outcome Evaluation: met Taken 05/21/2025 1030 by Evan Simpson RN Plan of Care Reviewed With: patient Taken 05/21/2025 100 by Ele Estrada RN Progress: no change [...] declines Intervention: Provide Person-Centered Care Flowsheets (Taken 05/21/2025 1009 by Ele Estrada, RN) Trust Relationship/Rapport: care explained choices provided questions answered questions encouraged Problem: Pain Acute Goal: Optimal Pain Control and Function Outcome: Ongoing, Progressing Intervention: Optimize Psychosocial Wellbeing Flowsheets (Taken 05/21/2025 1009 by Ele Estrada, RN) Supportive Measures: goal-setting [...] Activity Management: up to bedside commode Taken 05/21/2025 100 by Ele Estrada, RN Pressure Reduction Techniques: [...] Manage Infection Flowsheets Taken 05/21/20251999 by Luci Silvestre, RN Isolation Precautions: precautions maintained protective Taken 05/21/2025 100 by Ele Estrada, RN Infection Management: aseptic [...] have peripancreatic fluid collection. 03/20/25: distal panc/spleen [Mnoica] Interval: Yesterday, patient Megace increased for appetite [...] Edited by: Conrado Park APRN at 05/21/2025 0216 Dispo: Continue Current Level of Care Conrado [...] Radiology Brief Postprocedure Note Attending: Dr. Sequeira Psychotherapist Counselor: Dr. Verma and Sadi DIALLO Pre-operative Diagnosis: Left pleural effusion Post-operative Diagnosis: [...] on aspirin, HLD who presented to the [facility] on 05/13/2025 with abdominal pain, rigors, diaphoresis, [...] 102 CO2 mmol/L 21* 18* 21* 21* 24 CALCIUM mg/dL 7.9* 8.0* 7.9* 7.8* [...] last 7 days Lab Units 05/21/2531405/20/2513105/19/25 0422 05/18/25 0433 05/17/25 0003 05/16/25 0020 [...] Value Units Date/Time Blood Culture (Aerobic/Anaerobet Set) [[id number]] Collected: 05/14/25 0232 Order Status: Completed Specimen: Blood from Wrist, Left Updated: 05/19/25 0601 Culture No growth at day 5 Narrative: Low blood volume submitted, results may be compromised Blood Culture (Aerobic/Anaerobet Set) [[id number]] Collected: 05/14/25 0232 Order Status: Completed Specimen: Blood from Wrist, Right Updated: 05/19/25 0551 Culture No growth at day 5 Narrative: Low blood volume submitted, results may be compromised Body Fluid Culture and Gram Stain [[id number]] (Abnormal) (Susceptibility) Collected: 05/14/25 1647 Order Status: Completed Specimen: Body Fluid (specify site): Updated: 05/18/25 1436 Culture Heavy Growth 4+ Streptococcus constellatus Comment: This isolate has been identified using the FDA Approved [employer] CA System The organism value for this result has been updated. These results have been appended to the previously preliminary verified report. Edited result: Previously reported as Streptococcus species on 05/15/2025 at 1553 EST. 1+ Haemophilus parainfluenzae Comment: This isolate has been identified using the FDA Approved [employer] CA System The organism value for this [...] 36.4 ??C (97.5 ??F) (Tympanic) Resp 18 [place] Coma Scale Score: 15 Melchor Scale Score: [...] kg Height: 162.6 cm (5' 4 ) [place] body weight: 54.7 kg (120 lb 9.5 [...] you, Carol Hull, PharmD PGY1 Acute Care Supplier Engineer Available via [employer] Secure Chat [1] Patient Active Problem List [...] 0514) * Interval H&P Note - Malou Verma MD - 05/21/2025 10:23 AM EST H&P [...] this patient. Elias Garcia MD Interventional Radiology [phone] [1] Past Medical History: Diagnosis Date Cranial [...] mg, 81 mg, Oral, Daily, Conrado Park MOBILE ARCHITECT, 81 mg at 05/20/25 0958 glucose (Glutose) [...] 250 mL, Intravenous, Every other day, Katlyn Hopknis APRN [START ON 05/21/2025] insulin regular (HumuLIN R,NovoLIN R) 100 units/mL injection - Correction - Resistant Dose, 0-10 Units, Subcutaneous, q6h [facility], Tierney Sosa PA lidocaine (Lidoderm) 5 % patch 1 patch, 1 patch, Apply externally, q24h, Yo Maria MD, 1 patch at 05/19/252040 methocarbamol (Robaxin) tablet 1,000 mg, 1,000 mg, [...] mg, 40 mg, Oral, Daily, Conrado Park MOBILE ARCHITECT, 40 mg at 05/20/25 0958 piperacillin-tazobactam (Zosyn) [...] Note Dot Dale 69 y.o. female CSN: [id number] Admission: 05/13/2025 6:45 PM Primary Problem: Peripancreatic [...] DC plan of care ongoing Accepted by [facility] health and [facility] for home TPN. Katie Pean RN * Care Plan - Ele Estrada [...] Intervention: Promote Injury-Free Environment Flowsheets (Taken 05/21/2025 100) Safety Promotion/Fall Prevention: activity supervised clutter-free environment [...] been discussed with the patient and/or their retail customer service representative. All questions answered and they agree to [...] mg 81 mg Oral Daily Conrado Park MOBILE ARCHITECT 81 mg at 05/21/25 0821 glucose (Glutose) [...] syringe 40 mg 40 mg Subcutaneous Daily VivianConrado APRN40 mg at 05/20/25 0958 fat emulsion fish/plant based (SMOFlipid) 20 % IV infusion 250 mL 250 mL Intravenous Every other day Katlyn Hopkins APRN 20.8 mL/hr at 05/21/25 0831 250 mL at 05/21/25 0831 insulin regular (HumuLIN R,NovoLIN R) 100 units/mL injection - Correction - Resistant Dose 0-10 Units Subcutaneous q6h [facility] Tierney Sosa PA 2 Units at 05/21/25 [...] 40 mg 40 mg Oral Daily Conrado ParkYOBANI 40 mg at 05/21/25 0821 piperacillin-tazobactam (Zosyn) [...] Intervention: Develop Pain Management Plan Flowsheets (Taken 05/21/2025 0045) Pain Management Interventions: [...] Oral Intake Flowsheets (Taken 05/18/20252007 by Gerri Schaefer, AJ) Oral Nutrition Promotion: nutrition counseling provided physical [...] Care Review Outcome: Ongoing, Progressing Flowsheets (Taken 05/20/2025 184) Progress: no change Plan of Care Reviewed [...] Pain and Promote Comfort Flowsheets (Taken 05/20/2025 1703) Pain Management Interventions: medication (see MAR) Intervention: Provide Person-Centered Care Flowsheets (Taken 05/20/20251843) Trust Relationship/Rapport: care explained questions encouraged Problem: Pain Acute Goal: Optimal Pain Control and Function Outcome: Ongoing, Progressing Intervention: Optimize Psychosocial Wellbeing Flowsheets (Taken 05/20/20251843) Supportive Measures: active listening utilized Intervention: Develop Pain Management Plan Flowsheets (Taken 05/20/2025 1703) Pain Management Interventions: medication (see MAR) Intervention: [...] Intervention: Prevent or Manage Infection Flowsheets Taken 05/20/2025 1844 Infection Management: aseptic technique maintained Taken 05/20/2025 1100 Isolation Precautions: protective * Consults - Elias Garcia MD - 05/20/2025 6:37 PM ESTAssociated Order(s): IP CONSULT TO INTERVENTIONAL RADIOLOGY 05/20/25 Patient: oDt Dale Date of : 1955/69 y.o. Requesting [...] this patient. Elias Garcia MD Interventional Radiology [phone] [1] Past Medical History: Diagnosis Date Cranial [...] 65 mL/hr, Intravenous, Continuous, Katlyn Hopkins H, MOBILE ARCHITECT aspirin chewable tablet 81 mg, 81 mg, Oral, Daily, Conrado Park, MOBILE ARCHITECT, 81 mg at 05/20/25 0958 glucose (Glutose) [...] Tierney Sosa PA, 2.5 mg at 05/20/25 170 [Held by provider] enoxaparin (Lovenox) syringe 40 mg, 40 mg, Subcutaneous, Daily, Conrado Park APRN, 40 mg at 05/20/25 0958 [START ON 05/21/2025] fat emulsion fish/plant based (SMOFlipid) 20 % IV infusion 250 mL, 250 mL, Intravenous, Every other day, Katlyn Hopkins APRN [START ON 05/21/2025] insulin regular (HumuLIN R,NovoLIN R) 100 units/mL injection - Correction - Resistant Dose, 0-10 Units, Subcutaneous, q6h [facility], Tierney Sosa PA lidocaine (Lidoderm) 5 % [...] mg, 40 mg, Oral, Daily, Conrado Park APRN, 40 mg at 05/20/25 0958 piperacillin-tazobactam (Zosyn) [...] Note Dot Dale 69 y.o. female CSN: [id number] Admission: 05/13/2025 6:45 PM Primary Problem: Peripancreatic [...] by [facility] for home TPN and [facility] for PT OT SN. Pt [...] in Care Family/Caregiver Present: Yes Family/Caregiver: Spouse Timber Inspector: Not Applicable Presentation Oxygen Therapy: None (Room [...] Level of Mobility: Ambulatory- household only Mobility [place]: Independent gait with device (RW) History of [...] upright. Bed Mobility Exam: Rolling/Turning Level of [place]: Contact guard (to the right) Physical/Nonphysical Assist: Set-up required, Verbal Cues, Nonverbal cues (demo/gestures), Minimal cues, 1 person + 1 person to manage equipment Bed Mobility Exam: Scooting/Bridging Level of [place]: Contact guard (anteriorly to EOB) Physical/Nonphysical Assist: Set-up required, Verbal Cues, Nonverbal cues (demo/gestures), Minimal cues, 1 person + 1 person to manage equipment Bed Mobility Exam: Supine to Sit Level of [place]: Contact guard (to the right) Physical/Nonphysical Assist: [...] Transfer Exam: Sit to stand Level of [place]: Contact guard Physical/Nonphysical Assist: Set-up required, Verbal Cues, Nonverbal cues (demo/gestures), Minimal cues, 1 person + 1 person to manage equipment Assistive Device: Walker, rolling Transfer Exam: Stand to Sit Level of [place]: Contact guard Physical/Nonphysical Assist: Verbal Cues, Nonverbal [...] stay to maintain functional endurance/strength. Standardized Assessments [facility] 6-Clicks Mobility Assessment Difficulty patient has turning [...] 3-5 steps with a railing?: A little [facility] 6-Clicks Mobility Assessment Total : 18 Assessment [...] in Care Family/Caregiver Present: Yes Family/Caregiver: Spouse Timber Inspector: Not Applicable Presentation Oxygen Therapy: None (Room [...] Level of Mobility: Ambulatory- household only Mobility [place]: Independent gait with device (RW) History of [...] Mobility Bed Mobility Exam: Rolling/Turning Level of [place]: Contact guard (to the right) Physical/Nonphysical Assist: Set-up required, Verbal Cues, Nonverbal cues (demo/gestures), Minimal cues, 1 person + 1 person to manage equipment Assistive Device: Bed rails Bed Mobility Exam: Scooting/Bridging Level of [place]: Contact guard (anteriorly to EOB) Physical/Nonphysical Assist: Set-up required, Verbal Cues, Nonverbal cues (demo/gestures), Minimal cues, 1 person + 1 person to manage equipment Assistive Device: Bed rails Bed Mobility Exam: Supine to Sit Level of [place]: Contact guard (to the right) Physical/Nonphysical Assist: Set-up required, Verbal Cues, Nonverbal cues (demo/gestures), Minimal cues, HOB elevated, 1 person + 1 person to manage equipment Assistive Device: Bed rails Transfers Transfer Exam: Sit to stand Level of [place]: Contact guard Physical/Nonphysical Assist: Set-up required, Verbal Cues, Nonverbal cues (demo/gestures), Minimal cues, 1 person + 1 person to manage equipment Assistive Device: Walker, rolling Transfer Exam: Stand to Sit Level of [place]: Contact guard Physical/Nonphysical Assist: Verbal Cues, Nonverbal cues (demo/gestures), Minimal cues, 1 person + 1 person to manage equipment Assistive Device: Walker, rolling Toilet Transfer Level of [place]: Contact guard Physical/Nonphysical Assist: Verbal Cues, Nonverbal [...] Interventions: Therapist provided set-up assist for hand mat repairer in reach. Patient completed hand hygiene with [...] decrease pace of task completion. Standardized Assessments [facility] 6-Click Daily Activities Help from Other: Don/Doff Regular Lower Body Clothings: Little Help From Other: Bathing: Little Help From Other: Toileting: Little Help From Other: Don/Doff Upper Body Clothings: Little Help From Other: Grooming: None Help From Other: Eating Meals: None [facility] 6 Click - Daily Activities Score: 20/24 [facility] Scoring Interpretation: Scores greater than 20.5 suggest [...] to return home with 24/7-hour assistance + HH OT/PT as OT anticipates that the patient [...] on aspirin, HLD who presented to the [facility] on 05/13/2025 with abdominal pain, rigors, diaphoresis, [...] 0422 05/18/25 0433 05/17/25 0003 05/16/25 0020 05/15/258 [...] 0003 05/16/25 0020 05/15/25 0218 05/13/25 1844 ALT U/L 11 14 13 [...] Value Units Date/Time Blood Culture (Aerobic/Anaerobet Set) [[id number]] Collected: 05/14/25 023 Order Status: Completed Specimen: Blood from Wrist, Left Updated: 05/19/25 0601 Culture No growth at day 5 Narrative: Low blood volume submitted, results may be compromised Blood Culture (Aerobic/Anaerobet Set) [[id number]] Collected: 05/14/25 0232 Order Status: Completed Specimen: Blood from Wrist, Right Updated: 05/19/25 0551 Culture No growth at day 5 Narrative: Low blood volume submitted, results may be compromised Body Fluid Culture and Gram Stain [[id number]] (Abnormal) (Susceptibility) Collected: 05/14/25 1647 Order Status: Completed Specimen: Body Fluid (specify site): Updated: 05/18/25 1436 Culture Heavy Growth 4+ Streptococcus constellatus Comment: This isolate has been identified using the FDA Approved [employer] System The organism value for this result has been updated. These results have been appended to the previously preliminary verified report. Edited result: Previously reported as Streptococcus species on 05/15/2025 at 1553 EST. 1+ Haemophilus parainfluenzae Comment: This isolate has been identified using the FDA Approved [employer] System The organism value for this result [...] kg Height: 162.6 cm (5' 4 ) [place] body weight: 54.7 kg (120 lb 9.5 [...] you, Carol Hull, NeryD PGY1 Acute Care Supplier Engineer Available via [employer] Secure Chat [1] Patient Active Problem List [...] Camacho RN Authorized by: Lokesh Anderson MD [place] Protocol: Verbal consent obtained?: Yes Written consent [...] in right arm again Catheter Lot #: [id number] Catheter operations team leader: FittingRoom Catheter placed: Double lumen Catheter size: 4 Fr Catheter trimmed length: 38 Catheter threaded length: 36 Vein placed in: SVC Catheter cm indwellin Catheter cm outside: 2 Placement confirmed by: aihuishou 3CG technology Pre-procedure: Landmarks identified Ultrasound guidance: [...] Edited by: Marques Au MD at 05/20/2025 3764 Review of Systems: Relevant review of systems [...] Addendum 03/31/2025 7:55 AM by Katlyn Hopkins MOBILE ARCHITECT Hx of Abnormal blood electrolyte level Overview Signed 03/21/2025 9:54 AM by Katlyn Hopkins MOBILE ARCHITECT - daily/PRN CMP, Mg, Phos - replete [...] Edited by: Marques Au MD at 05/20/2025 0739 Dispo: Continue Current Level of Care Marques [...] Note Dot Dale 69 y.o. female CSN: [id number] Admission: 05/13/2025 6:45 PM Primary Problem: Peripancreatic [...] Katie Pena RN * Progress Notes - VivianConrado APRN - 05/19/2025 12:42 PM EST Images [...] Dispo: Continue Current Level of Care Conrado G Vivian, MOBILE ARCHITECT Cosigned by Lokesh Anderson MD at 05/19/2025 [...] (Individualized) Outcome: Ongoing, Progressing Flowsheets (Taken 05/18/2025 08) Patient/Family-Specific Goals (Include Timeframe): patient will remain free from falls/injury/harm Individualized Care Needs: safety Anxieties, Fears or Concerns: none Goal: Absence of Hospital-Acquired Illness or Injury Outcome: Ongoing, Progressing Intervention: Identify and Manage Fall Risk Flowsheets (Taken 05/18/2025 08) Safety Promotion/Fall Prevention: activity supervised clutter-free environment maintained room organization consistent safety round/check completed Intervention: Prevent Skin Injury Flowsheets (Taken 05/18/2025799) Body Position: weight shifting Intervention: Prevent and Manage VTE (Venous Thromboembolism) Risk Flowsheets (Taken 05/18/2025 0800) VTE Prevention/Management: SCDs (sequential compression devices) off medication Intervention: Prevent Infection Flowsheets (Taken 05/18/2025247 by Lokesh Neal, AJ) Infection Prevention: hand hygiene promoted rest/sleep promoted Goal: Optimal Comfort and Wellbeing Outcome: Ongoing, Progressing Intervention: Monitor Pain and Promote Comfort Flowsheets (Taken 05/18/2025 0859) Pain Management Interventions: medication (see MAR) Intervention: Provide Person-Centered Care Flowsheets (Taken 05/18/2025247 by Lokesh Neal, RN) Trust Relationship/Rapport: care explained choices provided emotional support provided empathic listening provided questions answered thoughts/feelings acknowledged Problem: Pain Acute Goal: Optimal Pain Control and Function Outcome: Ongoing, Progressing Intervention: Optimize Psychosocial Wellbeing Flowsheets Taken 05/18/2025917 by Ranjana Aguilar RN Spiritual Activities Assistance: affirmation provided Taken 05/18/2025247 by Lokesh Neal RN Supportive Measures: relaxation techniques promoted self-care encouraged Intervention: Develop Pain Management Plan Flowsheets (Taken 05/18/202559) Pain Management Interventions: medication (see MAR) Intervention: [...] Ongoing, Progressing * Progress Notes - Marques Au MD - 05/17/2025 2:00 PM EST Images [...] Addendum 04/04/2025 9:18 AM by Katlyn Hopkins MOBILE ARCHITECT - initiated on 03/30/25, continue on dc [...] Note Dot Dale 69 y.o. female CSN: [id number] Room/Bed 216/216A Nutrition evaluation type: assessment Reason [...] (Room air) O2 Delivery Method: Nasal cannula [place] Coma Scale Score: 15 Melchor Scale Score: [...] (Calculated): 27.08 Weight Evaluation: Overweight (BMI 25-29.9) [place] Body Weight (kg): 54.5 Percent [place] Body Weight: 131 Estimated Needs: Kcal/ K-30 Kcal Provided: 8931-0726 Kcal Needs Based On: Current weight Gm Protein/ Kg : 1+ Protein Provided: 71+ Protein Needs Based On: Current weight ML/ Kg: Per team Metabolic Cart Study Results: Current Nutrition Intake: Diet Supplements: None Diet Order: Adult Diet Diet Texture: Regular Diet Experience and Nutrition History: Diet Education Provided: Will monitor Pertinent home medications: Sabianist needs: Nutrition Focused Physical Exam: Unable to [...] Brief Postprocedure Note Attending: Gael Alatorre MD Psychotherapist Counselor: Elias Garcia MD; Wilfredo Phillips [facility] Pre-operative Diagnosis: Post operative intra-abdominal abscess Post-operative [...] CVA on aspirin, HLD , presented to [facility] hospital complaining of abdominal pain, rigors, [...] your response below. Clinical Indicators: 05/13/25 18:44 11/20/25 02:18 05/16/25 00:20 Potassium 3.3 (L) 3.2 [...] Note Dot Dale 69 y.o. female CSN: [id number] Admission: 05/13/2025 6:45 PM Primary Problem: Peripancreatic fluid collection Anticipated Discharge Date: 05/17 Has Discharge Plans Changed? Yes dc home with family assist. Cancelled [facility] home [facility] as patient declined. Notified Daniel [...] Review Outcome: Ongoing, Progressing Flowsheets (Taken 05/15/2025 2330) Progress: improving Plan of Care Reviewed With: [...] Intervention: Identify and Manage Contributors Flowsheets (Taken 05/15/2025 2330) Self-Care Promotion: independence encouraged Problem: Skin Injury Risk Increased Goal: Skin Health and Integrity Outcome: Ongoing, Progressing Intervention: Optimize Skin Protection Flowsheets (Taken 05/15/2025 2330) Activity Management: activity adjusted per tolerance activity encouraged Pressure Reduction Techniques: frequent weight shift encouraged Head of Bed (HOB) Positioning: HOB elevated * Progress Notes - Conrado Park APRN - 05/15/2025 12:05 PM EST Images from the original note were not included. Department of Surgery Division of Surgical Oncology Surgery Progress Note 05/15/25 Dot Chito Subjective Subjective: HPI 69F with [...] 1859 05/14/25 1900 - 05/15/25 0659 05/15/25 07 - 05/15/25 1205 Closed/Suction Drain 1 Lateral [...] patient care. * Care Plan - Petr Frey RN - 05/15/2025 11:14 AM EST Problem: [...] not available in floor stock, contact Materials [phone]. *Saline flushes can be supplied via Meds to Beds. About the accordion drainage system [...] 30 10-ml saline flushes--Can be supplied via [id number] where applicable. 30 alcohol pads 2 10-packs of 4 x 4 gauze pads 8 Tegaderm dressing 3 x 5 inch (if not allergic) 1 Paper medical tape 1 inch (if not allergic) Graduated cylinder (1 per drain) Printed drainage log Extra drainage bag for each drain (If a gravity collection bag is in use: SAP #[id number]. If an accordian drain bag is in use: SAP #[id number]) Either 1 Uresil flushable adapter SAP #[id number] OR 1 3-way stopcock SAP #317 & 1 saline lock cap SAP #[id number] [These parts can be used interchangeably to [...] to take out the drain. Contact the [facility] at [phone], or discuss at your next follow-up visit. [...] the drain system dry. Follow up with [facility] at [phone] for appointments or questions. Follow the [id number] directions in the Flushable Drain Care handout. [...] Follow up and other appointments with the [facility] First follow-up visit. We will call you to schedule a follow-up visit with the [facility]. You should be seen in our clinic within 2 weeks after leaving the hospital. If you have not been contacted to schedule this appointment, please contact the [facility] at [phone]. To schedule or reschedule a clinic visit, call [phone]. To reschedule a procedure, call our schedulers at [phone], option 4. [facility] location and phone number [facility], 1st floor [address], [address] [place] [address] In case of emergency For any emergency, please go to the nearest Emergency Room or dial 911. If you have questions or concerns about the drain Monday-Monday, 8 a.m.-4:30 p.m., call the [facility] at [phone]. After hours, weekends, and holidays, call [phone]. Ask for the Interventional Radiology provider management consultant. Drainage Log You must keep a daily log of your drain output. Each day, log the output from drain. Remember to subtract the amount of saline injected into catheter. Bring this log to your follow-up visits. Your name: Date Time Volume (in mL) Color of drainage Notes GAGAN Pham, RN, [facility] Nurse Navigator Interventional Radiology, [facility] * Juanbassam SharpeKELLY - Mukund Dyer RN - 05/14/2025 5:19 PM EST Images from the original note were not included. [id number] Taking Care of Your Flushable Drain Tube [...] right away. [facility], 1st floor [address], [address] [place] [phone] Caring for your drain tube It is [...] and warm water or an alcohol-based hand cleaner and presser ?? Disposable medical gloves - (optional) they [...] ?? Wipe the skin gently in a lime, moving away from the drain tube in [...] and warm water or an alcohol-based hand cleaner and presser ?? Disposable medical gloves - (Optional) they [...] hands with soap and water or hand cleaner and presser. They can also put on a new [...] syringe to the needleless port with a [id number] motion. 6. Flush the tube: Push on [...] original bottles. [facility], [address] [place] [address] * Interval H&P Note - Elias Garcia MD - 05/14/2025 3:55 PM EST H&P reviewed. No changes. Source Note - Jelena Lou APRN, DNP - 05/14/2025 8:53 AM EST Images from [...] pancreatic bed measuring 2 x 9.5 cm (80). No internal gas. Surrounding haziness and stranding [...] the care of this patient. Jelena Lou, MOBILE ARCHITECT, DNP Interventional Radiology [phone] [1] Past Medical History: Diagnosis Date Cranial [...] required), 3.375 g, Intravenous, q6h, Conrado Park APRN, Last Rate: 36.7 mL/hr at 05/14/25 0753, [...] Disp: 100 strip, Rfl: 11 [Paused] HYDROcodone-acetaminophen (Weston) 5-325 MG tablet, every 4 hours as needed. (Patient not taking: Reported on 04/23/2025), Disp: , Rfl: insulin glargine (Lantus SoloStar) 100 UNIT/ML injection pen, Inject 8 Units under the skin 1 (one)time each day at the same time. Inject 8u one hour after TPN wastewater supervisor., Disp: 3 mL, Rfl: 0 Lancets misc, [...] been discussed with the patient and/or their retail customer service representative. All questions answered and they agree to [...] 40 mg 40 mg Intravenous Daily Conrado Park, MOBILE ARCHITECT 40 mg at 05/14/25 1103 piperacillin-tazobactam (Zosyn) 3.375 g in sodium chloride 0.9% 100 mL IVPB (vial adapter required)3.375 g Intravenous q6h Conrado Park G, MOBILE ARCHITECT Stopped at 05/14/25 1103 sodium chloride 0.9 % flush 10 mL 10 mL Intravenous q12h Jelena Lou APRN, DNP 10 mL at 05/14/25 1103 And sodium chloride 0.9 % flush 10 mL 10 mL Intravenous PRN Jelena Lou APRN, DNP Current Outpatient Medications Medication Sig Dispense Refill [...] time. 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 (Patient not taking: Reported on 05/14/2025) 3 [...] Note Dot Dale 69 y.o. female CSN: [id number] Admission: 05/13/2025 6:45 PM Primary Problem: Peripancreatic fluid collection Aoc Director Intelligence Officer reviewed chart to complete this Initial Case Management Assessment. PCP: Golden Newell MD Emergency Contact: Extended Emergency Contact Information Primary Emergency Contact: gabriela dale Address: [address] [place] [address] [facility] Mobile Relation: Spouse Preferred language: Thai Timber Inspector needed? No Insurance: Primary Visit Coverage Payer Plan Sponsor Code Group Number Group Name HUMANA MEDICARE HUMANA MEDICARE [id number] Primary Visit Coverage Subscriber Subscriber ID Subscriber Name Subscriber SSN Subscriber Address [id number] [address] [id number] [facility] [place] [address] Patient information: Primary Caregiver: Self Support System: Immediate family Daily Living Activities: Functional Status: Minimum assistance Living Arrangements: Spouse/Significant other Type of Residence: Private residence, Single Level [address] [place] [address] Current DME: Equipment Currently Used at Home: walker, rolling Income Information: Income/Expense Information: Income meets expenses Current Resources Utilized: None Housing Circumstances-Z Codes: Housing Circumstances (select all that apply): None Applicable Patient Referred to: Anticipated Discharge Date: 05/17 Patient's Discharge Goal: dc to home Assistance Available at Discharge: 16/01 Discharge Transport: spouse Follow Up Transport: spouse Home Health / Home Infusion / Outpatient Dialysis Services: [facility]- current for homr TPN, [place] home health current SN, PT OT CM notified both agencies patient is inaptient now at . Living Will/Advance Directive/Power of Food And Beverage Associate /Guardian: Have you reviewed your Advance Directive [...] were you homeless or living in a care home (including now)? N Food Insecurity Within the past 12 months, you worried that your food would run out before you got the money to buymore. Never true Within the past 12 months, the food you bought just didn't last and you didn't have money to get more. Never true Utilities In the past 12 months has the electric, gas, oil, or water [employer] threatened to shut off services in your [...] the care of this patient. Jelena Lou, MOBILE ARCHITECT, DNP Interventional Radiology [phone] [1] Past Medical History: Diagnosis Date Cranial [...] required), 3.375 g, Intravenous, q6h, Conrado Park APRN, Last Rate: 36.7 mL/hr at 05/14/25 0753, [...] Disp: 100 strip, Rfl: 11 [Paused] HYDROcodone-acetaminophen (Weston) 5-325 MG tablet, every 4 hours as needed. (Patient not taking: Reported on 04/23/2025), Disp: , Rfl: insulin glargine (Lantus SoloStar) 100 UNIT/ML injection pen, Inject 8 Units under the skin 1 (one)time each day at the same time. Inject 8u one hour after TPN wastewater supervisor., Disp: 3 mL, Rfl: 0 Lancets misc, [...] from the original note were not included. [facility] Department of Surgery Division of Surgical Oncology [...] on aspirin, HLD who presented to the [facility] on 05/13/2025 with abdominal pain, rigors, and [...] Social Connections: Low Risk (07/07/2023) Received from [employer] ([place], [place], [place], [place], [place]) Family and [...] daily 04/04/25 Katlyn Hopkins APRN [Paused] HYDROcodone-acetaminophen (Weston) 5-325 MG tablet every 4 hours as needed. Patient not taking: Reported on 04/23/2025 Wait to take this until your doctor or other care provider tells you to start again. Provider, Historical insulin glargine (Lantus SoloStar) 100 UNIT/ML injection pen Inject 8 Units under the skin 1 (one) time each day at the same time. 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 04/04/25 Katlyn Hopkins APRN Lancets misc Test [...] CVA on aspirin, HLD who presented to [facility] with nausea, vomiting, and peripancreatic fluid collection. [...] times daily 100 strip 11 [Paused] HYDROcodone-acetaminophen (Weston) 5-325 MG tablet every 4 hours as needed. (Patient not taking: Reported on 04/23/2025) insulin glargine (Lantus SoloStar) 100 UNIT/ML injection pen Inject 8 Units under the skin 1 (one) time each day at the same time. 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 3 mL 0 Lancets misc Test two [...] medical decision making. Dr. Zay Sheth MD Trim Technician of Surgical Oncology [facility] * ED Provider Notes - Mendez Neumann [...] breath, and diarrhea. History provided by: Patient range manager used: No MAIN ED NOTE//Mendez Neumann MD: I assumed full responsibility for this patient after transfer to Main ED from [facility]. I personally performed my own history, ROS, and physical. I agree with the above [facility] documentation with the following additions/exceptions: Dot [...] injection 4 mg 4 mg Intravenous Given 05/13/2025 2014 EST iohexol (OMNIPaque) 300 MG/ML injection 100 [...] FLAHERTY 05/14/25158 Full code Continuous Acknowledged REMINGTON FLAHRETY 05/14/25158 NPO diet NPO except: Sips with meds Diet effective now Acknowledged REMINGTON FLAHERTY Monie 05/14/25158 Mobility Orders Until discontinued Acknowledged REMINGTON FLAHERTY 05/14/25158 Notify physician (specify parameters) Until discontinued Acknowledged REMINGTON FLAHERTY Monie 05/14/25158 Incentive spirometry Until discontinued Comments: Every 10 minutes Acknowledged REMINGTON FLAHERTY Monie 05/14/25158 Insert peripheral IV Continuous Acknowledged REMINGTON FLAHERTY 05/14/25158 Admit to inpatient Once Acknowledged REMINGTON FLAHERTY Monie 05/13/25 2221 Initiate Contact D Isolation Continuous Comments: Added via Instant Order OPA Acknowledged BPA, INSTANT ORDERS 05/13/25 1836 CMP STAT Final result JEMAL HARGROVE 05/13/25 1836 Lipase STAT Final result JEMAL HARGROVE 05/13/25 1836 CBC w/diff STAT Final result JEMAL HARGROVE 05/13/[address] Abdomen Pelvis w IV Contrast Once Final result JEMAL HARGROVE 05/13/25 1836 Hepatitis C Antibody - ED Once Final result JEMAL HARGROVE 05/13/25 1836 ED Protocol - HIV 1/2 Antibody/Antigen Screen Once Final result JEMAL HARGROVE 05/13/25 1836 ED HIV 1/2 Antibody/Antigen Screen w/Reflex to [...] comments: 11-100 please Admitting/Attending Physician: ZAY SHETH [[id number]] Provider Care Team: [facility] [[id number]] [...] in February. * Progress Notes - Verónica Reddign DO - 05/13/2025 6:16 PM EST Images [...] Prescriptions None Disposition Admit Bed request comments: 11- please Admitting/Attending Physician: ZAY SHETH [[id number]] Provider Care Team: [facility] [[id number]] [...] [facility] [address] [place] [address] Vibha Osborn, MOBILE ARCHITECT [address] [place] [id number] Pending Results Name Type Priority Associated Diagnoses Date /Time Fungal Culture, Sterile Body Fluid (NOT CSF) and [place] Microbiology Routine 05/27/2025 6:3 4 PM EST Scheduled Referrals Name Type Priority Associated Diagnoses Order Schedule Discharge Ambulatory referral to [facility] Outpatient Referral Routine Peripancreatic fluid collection Expected: 05/28/2025, Expires: 11/15/2026 Discharge Ambulatory referral to [facility] Outpatient Referral Routine Abdominal pain, unspecified abdominal location 1 Occurrences starting 05/16/2025 until 11/17/2026 Discharge Ambulatory referral to [facility] Outpatient Referral Routine Abdominal pain, unspecified abdominal location IPMN (intraductal papillary mucinous neoplasm) Pituitary adenoma (CMS/HCC) 1 Occurrences starting 05/20/2025 until 11/21/2026 Discharge Ambulatory Referral to [facility] Diabetes Education Outpatient Referral Routine On total parenteral nutrition (TPN) Expected: 06/02/2025 (Approximate), Expires: 12/04/2026 Discharge Ambulatory referral to [facility] Outpatient Referral Routine On total parenteral nutrition (TPN) 1 Occurrences starting 06/02/2025 until 12/04/2026 Discharge Ambulatory referral to [facility] Outpatient Referral Routine Abdominal pain, unspecified abdominal location 1 Occurrences starting 06/02/2025 until 12/04/2026 documented as of this encounter Goals Goal Patient Goal Type Associated Problems Recent Progress Patient-Stated? Author Autogenerat ed Goal Care Plan Autogenerated Problem No Jennifer Sabillon Autogenerajoni ed Goal Care Plan Autogenerated Problem No [...] PREPARE RBC STAT 05/27/2025 4:23 PM EST [place] THORACOSCOPY SURG TOT PULM DECORT 05/27/2025 3:14 [...] Routine 05/25/2025 12:40 PM EST Pleural effusion [place] TUBE THORACOSTOMY INCLUDES WATER SEAL Routine 05/25/2025 [...] Comment 06/02/2025 11:34 AM EST [facility] Customs Examiner ID Kirstin Rivera 06/02/2025 11:34 AM EST [facility] Device ID [id number] 06/02/2025 11:34 AM EST [facility] Specimen Type POC Capillary 06/02/2025 11:34 AM EST [facility] Blood Capillary blood specimen / Unknown 06/02/2025 11:32 AM EST 06/02/2025 11:34 AM EST Lokesh Anderson MD LAB POINT OF CARE TE ST DOCKED DEVICE UNSOLICITED RESULTS Final Result Performing Organization Address City/State/[facility] Co de Phone Number [facility] [address] [place] [address] * (ABNORMAL) POCT glucose meter (06/02/2025 5:37 AM EST) POCT Glucose 154(H) 74 - 99 mg/dL [...] for testing. Comment 06/02/2025 5:39 AM EST [facility] Customs Examiner ID Gabriela Aguilar 06/02/2025 5:39 AM EST [facility] Device ID [id number] 06/02/2025 5:39 AM EST [facility] Specimen Type POC Capillary 06/02/2025 5:39 AM EST [facility] Blood Capillary blood specimen / Unknown 06/02/2025 5:37 AM EST 06/02/2025 5:39 AM EST us Lokesh Anderson MD LAB POINT OF CARE TE ST DOCKED DEVICE UNSOLICITED RESULTS Final Result [facility] [address] [place] [address] * (ABNORMAL) Comprehensive Metabolic Panel, Plasma (06/02/2025 3:29 AM EST) Glucose, Plasma 94 74 - 99 mg/dL 06/02/2025 4:07 AM EST [facility] BUN, Plasma 14 8 - 23 mg/dL 06/02/2025 4:07 AM EST [facility] Creatinine, Plasma 0.51(L) 0.60 - 1.10 mg/dL 06/02/2025 4:07 AM EST [facility] BUN/Creatinine Ratio 27 06/02/2025 4:07 AM EST [facility] Sodium, Plasma 136 136 - 145 mmol/L 06/02/2025 4:07 AM EST [facility] Potassium, Plasma 4.3 3.6 - 4.9 mmol/L 06/02/2025 4:07 AM EST [facility] Chloride, Plasma 104 97 - 107 mmol/L 06/02/2025 4:07 AM EST [facility] CO2, Plasma 23 22 - 29 mmol/L 06/02/2025 4:07 AM EST [facility] Anion Gap 9 6 - 16 mmol/L 06/02/2025 4:07 AM EST [facility] Total Calcium, Plasma 8.4(L) 8.9 - 10.2 mg/dL 06/02/2025 4:07 AM EST [facility] Total Protein 6.4 6.3 - 7.9 g/dL 06/02/2025 4:07 AM EST [facility] Albumin, Plasma 2.1(L) 3.5 - 5.2 g/dL 06/02/2025 4:07 AM EST [facility] AST, Plasma 19 10 - 35 U/L 06/02/2025 4:07 AM EST [facility] ALT, Plasma 16 10 - 35 U/L 06/02/2025 4:07 AM EST [facility] Alkaline Phosphatase, Plasma 91 46 - 142 U/L 06/02/2025 4:07 AM EST [facility] Total Bilirubin, Plasma <0.2(L) 0.2 - 1.1 mg/dL 06/02/2025 4:07 AM EST [facility] eGFRcr 99.9 mL/min/1.7 3m*2 06/02/2025 4:07 AM EST [facility] Comment:Reported eGFRcr in m L/min/1.73m2 is based the CKD-EPI 2020 equation that does not use a race coefficient. Blood Venous blood specimen / Unknown Venipuncture / Unknown 06/02/2025 3:29 AM EST 06/02/2025 3:37 AM EST Result Jayden Anderson MD LAB BLOOD ORDERABLES Final Resul t Performing Organization Address City/[facility] Co de Phone Number [facility] [address] [place] [address] * Phosphorus, Plasma (06/02/2025 3:29 AM EST) Phosphorus, Plasma 4.3 2.5 - 4.5 mg/dL 06/02/2025 4:07 AM EST [facility] Blood Venous blood specimen / Unknown Venipuncture / Unknown 06/02/2025 3:29 AM EST 06/02/2025 3:37 AM EST Result Jayden Anderson MD LAB BLOOD ORDERABLES Final Resul t Performing Organization Address City/[facility] Co de Phone Number [facility] [address] [place] [address] * Magnesium, Plasma (06/02/2025 3:29 AM EST) Magnesium, Plasma 1.9 1.9 - 2.4 mg/dL 06/02/2025 4:07 AM EST [facility] Blood Venous blood specimen / Unknown Venipuncture / Unknown 06/02/2025 3:29 AM EST 06/02/2025 3:37 AM EST Result Jayden Anderson MD LAB BLOOD ORDERABLES Final Resul t [facility] [address] [place] [address] * (ABNORMAL) CBC W/O Differential (06/02/2025 3:29 AM EST) WBC Count 8.73 3.70 - 10.30 10*3/uL LAB HEMATOLOGY METHOD 06/02/2025 3:52 AM EST [facility] RBC Count 3.17(L) 3.90 - 5.20 10*6/uL LAB HEMATOLOGY METHOD 06/02/2025 3:52 AM EST [facility] HGB 9.3(L) 11.2 - 15.7 g/dL LAB HEMATOLOGY METHOD 06/02/2025 3:52 AM EST [facility] HCT 28.8(L) 34.0 - 45.0 % LAB HEMATOLOGY METHOD 06/02/2025 3:52 AM EST [facility] Platelet Count 576(H) 155 - 369 10*3/uL LAB HEMATOLOGY METHOD 06/02/2025 3:52 AM EST [facility] MCV 91 79 - 98 fL LAB HEMATOLOGY METHOD 06/02/2025 3:52 AM EST [facility] MCH 29.3 26.0 - 32.0 pg LAB HEMATOLOGY METHOD 06/02/2025 3:52 AM EST [facility] MCHC 32.3 30.7 - 35.5 g/dL LAB HEMATOLOGY METHOD 06/02/2025 3:52 AM EST [facility] RDW 16.6(H) 11.5 - 14.5 % LAB HEMATOLOGY METHOD 06/02/2025 3:52 AM EST [facility] MPV 9.1 8.8 - 12.5 fL LAB HEMATOLOGY METHOD 06/02/2025 3:52 AM EST [facility] nRBC 0.0 <=0.0 per 100 WBCs LAB HEMATOLOGY METHOD 06/02/2025 3:52 AM EST [facility] Blood Venous blood specimen / Unknown Venipuncture / Unknown 06/02/2025 3:29 AM EST 06/02/2025 3:37 AM EST us Lokesh Anderson MD LAB BLOOD ORDERABLES Final Resul t [facility] [address] [place] [address] * (ABNORMAL) POCT glucose meter (06/02/2025 12:01 [...] 06/02/2025 12:01 AM EST [facility] Customs Examiner ID Gabriela Aguilar 06/02/2025 12:01 AM EST [facility] Device ID [id number] 06/02/2025 12:01 AM EST [facility] Specimen Type POC Capillary 06/02/2025 12:01 AM EST [facility] Blood Capillary blood specimen / Unknown 06/02/2025 12:01 AM EST 06/02/2025 12:01 AM EST Lokesh Anderson MD LAB POINT OF CARE TE ST DOCKED DEVICE UNSOLICITED RESULTS Final Result [facility] [address] [place] [address] * (ABNORMAL) POCT glucose meter (06/01/2025 10:07 PM EST) Pathologist [facility] POCT Glucose 174(H) 74 - 99 mg/dL [...] 06/01/2025 10:08 PM EST [facility] Customs Examiner ID Gabriela Aguilar 06/01/2025 10:08 PM EST [facility] Device ID [id number] 06/01/2025 10:08 PM EST [facility] Specimen Type POC Capillary 06/01/2025 10:08 PM EST [facility] Blood Capillary blood specimen / Unknown 06/01/2025 10:07 PM EST 06/01/2025 10:08 PM EST us Lokesh Anderson MD LAB POINT OF CARE TE ST DOCKED DEVICE UNSOLICITED RESULTS Final Result Performing Organization Address City/[facility] Co de Phone Number [facility] [address] [place] [address] * (ABNORMAL) POCT glucose meter (06/01/2025 5:26 PM EST) POCT Glucose 107(H) 74 - 99 mg/dL 06/01/2025 5:27 PM EST [facility] Comment:Accuracy of a [...] Comment 06/01/2025 5:27 PM EST [facility] Customs Examiner ID Brielle Coronel 5:27 PM EST [facility] Device ID [id number] 06/01/2025 5:27 PM EST [facility] Specimen Type POC Capillary 06/01/2025 5:27 PM EST [facility] Blood Capillary blood specimen / Unknown 06/01/2025 5:26 PM EST 06/01/2025 5:27 PM EST us Lokesh Anderson MD LAB POINT OF CARE TE ST DOCKED DEVICE UNSOLICITED RESULTS Final Result Performing Organization Address City/[facility]/ZIP Co de Phone Number [facility] [address] [place] [address] * XR Chest 1 View (06/01/2025 2:51 [...] Velez MD on 06/01/2025 3:05 PM Lokesh Anderson MD IMG XR PROCEDURES Final Result * (ABNORMAL) POCT glucose meter (06/01/2025 11:48 AM EST) POCT Glucose 147(H) 74 - 99 mg/dL 06/01/2025 11:49 AM EST [facility] Comment:Accuracy of a glucos e [...] 06/01/2025 11:49 AM EST [facility] Customs Examiner ID Brielle Coronel 11:49 AM EST [facility] Device ID [id number] 06/01/2025 11:49 AM EST [facility] Specimen Type POC Capillary 06/01/2025 11:49 AM EST [facility] Blood Capillary blood specimen / Unknown 06/01/2025 11:48 AM EST 06/01/2025 11:49 AM EST us Lokesh Anderson MD LAB POINT OF CARE TE ST DOCKED DEVICE UNSOLICITED RESULTS Final Result [facility] [address] [place] [address] * XR Chest 1 View (06/01/2025 7:01 [...] POCT glucose meter (06/01/2025 6:02 AM EST) Pathologist [facility] POCT Glucose 170(H) 74 - 99 mg/dL [...] for testing. Comment 06/01/2025 6:05 AM EST [facility] Customs Examiner ID Princess Ge 025 6:05 AM EST [facility] Device ID [id number] 06/01/2025 6:05 AM EST [facility] Specimen Type POC Capillary 06/01/2025 6:05 AM EST [facility] Blood Capillary blood specimen / Unknown 06/01/2025 6:02 AM EST 06/01/2025 6:05 AM EST Lokesh Anderson MD LAB POINT OF CARE TE ST DOCKED DEVICE UNSOLICITED RESULTS Final Result [facility] [address] [place] [address] * (ABNORMAL) Comprehensive Metabolic Panel, Plasma (06/01/2025 4:10 AM EST) [facility] Glucose, Plasma 143(H) 74 - 99 mg/dL 06/01/2025 5:53 AM EST [facility] BUN, Plasma 12 8 - 23 mg/dL 06/01/2025 5:53 AM EST [facility] Creatinine, Plasma 0.49(L) 0.60 - 1.10 mg/dL 06/01/2025 5:53 AM EST [facility] BUN/Creatinine Ratio 24 06/01/2025 5:53 AM EST [facility] Sodium, Plasma 137 136 - 145 mmol/L 06/01/2025 5:53 AM EST [facility] Potassium, Plasma 4.2 3.6 - 4.9 mmol/L 06/01/2025 5:53 AM EST [facility] Chloride, Plasma 103 97 - 107 mmol/L 06/01/2025 5:53 AM EST [facility] CO2, Plasma 23 22 - 29 mmol/L 06/01/2025 5:53 AM EST [facility] Anion Gap 11 6 - 16 mmol/L 06/01/2025 5:53 AM EST [facility] Total Calcium, Plasma 8.2(L) 8.9 - 10.2 mg/dL 06/01/2025 5:53 AM EST [facility] Total Protein 6.3 6.3 - 7.9 g/dL 06/01/2025 5:53 AM EST [facility] Albumin, Plasma 2.4(L) 3.5 - 5.2 g/dL 06/01/2025 5:53 AM EST [facility] AST, Plasma 20 10 - 35 U/L 06/01/2025 5:53 AM EST [facility] ALT, Plasma 13 10 - 35 U/L 06/01/2025 5:53 AM EST [facility] Alkaline Phosphatase, Plasma 89 46 - 142 U/L 06/01/2025 5:53 AM EST [facility] Total Bilirubin, Plasma <0.2(L) 0.2 - 1.1 mg/dL 06/01/2025 5:53 AM EST [facility] eGFRcr 100.9 mL/min/1.7 3m*2 06/01/2025 5:53 AM EST [facility] Comment:Reported eGFRcr in m L/min/1.73m2 is based the CKD-EPI 2020 equation that does not use a race coefficient. Blood Venous blood specimen / Unknown Venipuncture / Unknown 06/01/2025 4:10 AM EST 06/01/2025 5:23 AM EST us Lokesh Anderson MD LAB BLOOD ORDERABLES Final Resul t [facility] [address] [place] [address] * Phosphorus, Plasma (06/01/2025 4:10 AM EST) Phosphorus, Plasma 3.8 2.5 - 4.5 mg/dL 06/01/2025 5:53 AM EST [facility] Blood Venous blood specimen / Unknown Venipuncture / Unknown 06/01/2025 4:10 AM EST 06/01/2025 5:23 AM EST us Lokesh Anderson MD LAB BLOOD ORDERABLES Final Resul t Performing Organization Address City/[facility]/ZIP Co de Phone Number [facility] [address] [place] [address] * Magnesium, Plasma (06/01/2025 4:10 AM EST) Magnesium, Plasma 2.0 1.9 - 2.4 mg/dL 06/01/2025 5:53 AM EST [facility] Blood Venous blood specimen / Unknown Venipuncture / Unknown 06/01/2025 4:10 AM EST 06/01/2025 5:23 AM EST us Lokesh Anderson MD LAB BLOOD ORDERABLES Final Resul t Performing Organization Address City/[facility]/ZIP Co de Phone Number [facility] [address] [place] [address] * (ABNORMAL) CBC W/O Differential (06/01/2025 4:10 AM EST) WBC Count 7.85 3.70 - 10.30 10*3/uL LAB HEMATOLOGY METHOD 06/01/2025 5:32 AM EST [facility] RBC Count 3.09(L) 3.90 - 5.20 10*6/uL LAB HEMATOLOGY METHOD 06/01/2025 5:32 AM EST [facility] HGB 9.3(L) 11.2 - 15.7 g/dL LAB HEMATOLOGY METHOD 06/01/2025 5:32 AM EST [facility] HCT 27.8(L) 34.0 - 45.0 % LAB HEMATOLOGY METHOD 06/01/2025 5:32 AM EST [facility] Platelet Count 567(H) 155 - 369 10*3/uL LAB HEMATOLOGY METHOD 06/01/2025 5:32 AM EST [facility] MCV 90 79 - 98 fL LAB HEMATOLOGY METHOD 06/01/2025 5:32 AM EST [facility] MCH 30.1 26.0 - 32.0 pg LAB HEMATOLOGY METHOD 06/01/2025 5:32 AM EST [facility] MCHC 33.5 30.7 - 35.5 g/dL LAB HEMATOLOGY METHOD 06/01/2025 5:32 AM EST [facility] RDW 16.5(H) 11.5 - 14.5 % LAB HEMATOLOGY METHOD 06/01/2025 5:32 AM EST [facility] MPV 9.6 8.8 - 12.5 fL LAB HEMATOLOGY METHOD 06/01/2025 5:32 AM EST [facility] nRBC 0.0 <=0.0 per 100 WBCs LAB HEMATOLOGY METHOD 06/01/2025 5:32 AM EST [facility] Blood Venous blood specimen / Unknown Venipuncture / Unknown 06/01/2025 4:10 AM EST 06/01/2025 5:23 AM EST us Lokesh Anderson MD LAB BLOOD ORDERABLES Final Resul t [facility] [address] [place] [address] * (ABNORMAL) POCT glucose meter (05/31/2025 11:31 PM EST) POCT Glucose 148(H) 74 - 99 mg/dL 05/31/2025 11:34 PM EST [facility] Comment:Accuracy of a [...] for testing. Comment 05/31/2025 11:34 PM EST [facility] Customs Examiner ID Princess Ge 025 11:34 PM EST [facility] Device ID [id number] 05/31/2025 11:34 PM EST [facility] Specimen Type POC Capillary 05/31/2025 11:34 PM EST [facility] Blood Capillary blood specimen / Unknown 05/31/2025 11:31 PM EST 05/31/2025 11:34 PM EST us Lokesh Anderson MD LAB POINT OF CARE TE ST DOCKED DEVICE UNSOLICITED RESULTS Final Result Performing Organization Address [facility] Co de Phone Number [facility] [address] [place] [address] * (ABNORMAL) POCT glucose meter (05/31/2025 6:04 [...] for testing. Comment 05/31/2025 6:05 PM EST [facility] Customs Examiner ID Brielle Coronel 6:05 PM EST [facility] Device ID [id number] 05/31/2025 6:05 PM EST [facility] Specimen Type POC Capillary 05/31/2025 6:05 PM EST [facility] Blood Capillary blood specimen / Unknown 05/31/2025 6:04 PM EST 05/31/2025 6:05 PM EST Lokesh Anderson MD LAB POINT OF CARE TE ST DOCKED DEVICE UNSOLICITED RESULTS Final Result Performing Organization Address [facility] Co de Phone Number [facility] [address] [place] [address] * XR Chest 1 View (05/31/2025 2:10 [...] - 99 mg/dL 05/31/2025 11:31 AM EST [facility] Comment:Accuracy of a glucos e result [...] for testing. Comment 05/31/2025 11:31 AM EST [facility] Customs Examiner ID Fide Coronelon 11:31 AM EST [facility] Device ID [id number] 05/31/2025 11:31 AM EST [facility] Specimen Type POC Capillary 05/31/2025 11:31 AM EST [facility] Blood Capillary blood specimen / Unknown 05/31/2025 11:30 AM EST 05/31/2025 11:31 AM EST Lokesh Anderson MD LAB POINT OF CARE TE ST DOCKED DEVICE UNSOLICITED RESULTS Final Result Performing Organization Address [facility] Phone Number [facility] [address] [place] [address] * POCT glucose meter (05/31/2025 5:37 AM [...] for testing. Comment 05/31/2025 5:38 AM EST [facility] Customs Examiner ID Tabitha Lee 025 5:38 AM EST [facility] Device ID [id number] 05/31/2025 5:38 AM EST [facility] Specimen Type POC Capillary 05/31/2025 5:38 AM EST [facility] Blood Capillary blood specimen / Unknown 05/31/2025 5:37 AM EST 05/31/2025 5:38 AM EST Lokesh Anderson MD LAB POINT OF CARE TE ST DOCKED DEVICE UNSOLICITED RESULTS Final Result Performing Organization Address [facility] Phone Number [facility] [address] [place] [address] * XR Chest 1 View (05/31/2025 5:19 [...] on 05/31/2025 11:21 AM us Rosa Chapman MOBILE ARCHITECT IMG XR PROCEDURES Final Resul t * (ABNORMAL) Comprehensive Metabolic Panel, Plasma (05/31/2025 4:57 AM EST) Glucose, Plasma 99 74 - 99 mg/dL 05/31/2025 6:27 AM [facility] BUN, Plasma 11 8 - 23 mg/dL 05/31/2025 6:27 AM [facility] Creatinine, Plasma 0.44(L) 0.60 - 1.10 mg/dL 05/31/2025 6:27 AM [facility] BUN/Creatinine Ratio 25 05/31/2025 6:27 AM [facility] Sodium, Plasma 137 136 - 145 mmol/L 05/31/2025 6:27 AM [facility] Potassium, Plasma 4.1 3.6 - 4.9 mmol/L 05/31/2025 6:27 AM [facility] Chloride, Plasma 104 97 - 107 mmol/L 05/31/2025 6:27 AM [facility] CO2, Plasma 24 22 - 29 mmol/L 05/31/2025 6:27 AM [facility] Anion Gap 9 6 - 16 mmol/L 05/31/2025 6:27 AM [facility] Total Calcium, Plasma 8.2(L) 8.9 - 10.2 mg/dL 05/31/2025 6:27 AM EST [facility] Total Protein 6.6 6.3 - 7.9 g/dL 05/31/2025 6:27 AM EST [facility] Albumin, Plasma 2.2(L) 3.5 - 5.2 g/dL 05/31/2025 6:27 AM EST [facility] AST, Plasma 19 10 - 35 U/L 05/31/2025 6:27 AM EST [facility] ALT, Plasma 12 10 - 35 U/L 05/31/2025 6:27 AM EST [facility] Alkaline Phosphatase, Plasma 91 46 - 142 U/L 05/31/2025 6:27 AM EST [facility] Total Bilirubin, Plasma 0.2 0.2 - 1.1 mg/dL 05/31/2025 6:27 AM EST [facility] eGFRcr 103.6 mL/min/1.7 3m*2 05/31/2025 6:27 AM EST [facility] Comment:Reported eGFRcr in m L/min/1.73m2 is based the CKD-EPI 2020 equation that does not use a race coefficient. Blood Blood sample taken from central line / Unknown (Central Line) Existing Catheter / Unknown 05/31/2025 4:57 AM EST 05/31/2025 5:56 AM EST Lokesh Anderson MD LAB BLOOD ORDERABLES Final Resul t [facility] [address] [place] [address] * Phosphorus, Plasma (05/31/2025 4:57 AM EST) Phosphorus, Plasma 3.4 2.5 - 4.5 mg/dL 05/31/2025 6:27 AM EST [facility] Blood Blood sample taken from central line / Unknown (Central Line) Existing Catheter / Unknown 05/31/2025 4:57 AM EST 05/31/2025 5:56 AM EST us Lokesh Anderson MD LAB BLOOD ORDERABLES Final Resul t [facility] [address] [place] [address] * Magnesium, Plasma (05/31/2025 4:57 AM EST) Magnesium, Plasma 1.9 1.9 - 2.4 mg/dL 05/31/2025 6:27 AM EST [facility] Blood Blood sample taken from central line / Unknown (Central Line) Existing Catheter / Unknown 05/31/2025 4:57 AM EST 05/31/2025 5:56 AM EST us Lokesh Anderson MD LAB BLOOD ORDERABLES Final Resul t Performing Organization Address City/[facility]/ZIP Co de Phone Number [facility] [address] [place] [address] * (ABNORMAL) CBC W/O Differential (05/31/2025 4:57 AM EST) Pathologist [facility] WBC Count 8.86 3.70 - 10.30 10*3/uL LAB HEMATOLOGY METHOD 05/31/2025 6:06 AM EST [facility] RBC Count 3.35(L) 3.90 - 5.20 10*6/uL LAB HEMATOLOGY METHOD 05/31/2025 6:06 AM EST [facility] HGB 9.6(L) 11.2 - 15.7 g/dL LAB HEMATOLOGY METHOD 05/31/2025 6:06 AM EST [facility] HCT 29.6(L) 34.0 - 45.0 % LAB HEMATOLOGY METHOD 05/31/2025 6:06 AM EST [facility] Platelet Count 520(H) 155 - 369 10*3/uL LAB HEMATOLOGY METHOD 05/31/2025 6:06 AM EST [facility] MCV 88 79 - 98 fL LAB HEMATOLOGY METHOD 05/31/2025 6:06 AM EST [facility] MCH 28.7 26.0 - 32.0 pg LAB HEMATOLOGY METHOD 05/31/2025 6:06 AM EST [facility] MCHC 32.4 30.7 - 35.5 g/dL LAB HEMATOLOGY METHOD 05/31/2025 6:06 AM EST [facility] RDW 16.4(H) 11.5 - 14.5 % LAB HEMATOLOGY METHOD 05/31/2025 6:06 AM EST [facility] MPV 9.7 8.8 - 12.5 fL LAB HEMATOLOGY METHOD 05/31/2025 6:06 AM EST [facility] nRBC 0.0 <=0.0 per 100 WBCs LAB HEMATOLOGY METHOD 05/31/2025 6:06 AM EST [facility] Blood Blood sample taken from central line / Unknown (Central Line) Existing Catheter / Unknown 05/31/2025 4:57 AM EST 05/31/2025 5:56 AM EST us Lokesh Anderson MD LAB BLOOD ORDERABLES Final Resul t Performing Organization Address City/[facility]/ZIP Co de Phone Number [facility] [address] [place] [address] * (ABNORMAL) POCT glucose meter (05/31/2025 12:20 AM EST) POCT Glucose 213(H) 74 - 99 mg/dL 05/31/2025 12:22 AM EST [facility] Comment:Accuracy of a glucos e [...] for testing. Comment 05/31/2025 12:22 AM EST [facility] Customs Examiner ID Tabitha Lee 025 12:22 AM EST [facility] Device ID [id number] 05/31/2025 12:22 AM EST [facility] Specimen Type POC Capillary 05/31/2025 12:22 AM EST [facility] Blood Capillary blood specimen / Unknown 05/31/2025 12:20 AM EST 05/31/2025 12:22 AM EST us Lokesh Anderson MD LAB POINT OF CARE TE ST DOCKED DEVICE UNSOLICITED RESULTS Final Result Performing Organization Address City/[facility]/ZIP Co de Phone Number [facility] [address] [place] [address] * (ABNORMAL) POCT glucose meter (05/30/2025 9:25 PM EST) Pathologist [facility] POCT Glucose 161(H) 74 - 99 mg/dL [...] 05/30/2025 9:27 PM EST [facility] Customs Examiner ID Ktalyn Amin 05/30/2025 9:27 PM EST [facility] Device ID [id number] 05/30/2025 9:27 PM EST [facility] Specimen Type POC Capillary 05/30/2025 9:27 PM EST [facility] Blood Capillary blood specimen / Unknown 05/30/2025 9:25 PM EST 05/30/2025 9:27 PM EST Lokesh Anderson MD LAB POINT OF CARE TE ST DOCKED DEVICE UNSOLICITED RESULTS Final Result [facility] [address] [place] [address] * (ABNORMAL) POCT glucose meter (05/30/2025 4:57 PM EST) [facility] POCT Glucose 118(H) 74 - 99 mg/dL [...] 05/30/2025 4:59 PM EST [facility] Customs Examiner ID Amparo Mccullough 05/30/2025 4:59 PM EST [facility] Device ID [id number] 05/30/2025 4:59 PM EST [facility] Specimen Type POC Capillary 05/30/2025 4:59 PM EST [facility] Blood Capillary blood specimen / Unknown 05/30/2025 4:57 PM EST 05/30/2025 4:59 PM EST us Lokesh Anderson MD LAB POINT OF CARE TE ST DOCKED DEVICE UNSOLICITED RESULTS Final Result Performing Organization Address City/[facility] Co de Phone Number [facility] [address] [place] [address] * (ABNORMAL) POCT glucose meter (05/30/2025 12:05 PM EST) POCT Glucose 169(H) 74 - 99 mg/dL 05/30/2025 12:07 PM EST [facility] Comment:Accuracy of a glucos e result [...] Comment 05/30/2025 12:07 PM EST [facility] Customs Examiner ID Amparo Mccullough 05/30/2025 12:07 PM EST [facility] Device ID [id number] 05/30/2025 12:07 PM EST [facility] Specimen Type POC Capillary 05/30/2025 12:07 PM EST [facility] Blood Capillary blood specimen / Unknown 05/30/2025 12:05 PM EST 05/30/2025 12:07 PM EST us Lokesh Anderson MD LAB POINT OF CARE TE ST DOCKED DEVICE UNSOLICITED RESULTS Final Result Performing Organization Address City/[facility]/ZIP Co de Phone Number [facility] [address] [place] [address] * XR Chest 1 View (05/30/2025 11:29 [...] MD on 05/30/2025 1:21 PM Rosa Chapman MOBILE ARCHITECT IMG XR PROCEDURES Final Resul t * (ABNORMAL) POCT glucose meter (05/30/2025 8:00 AM EST) POCT Glucose 127(H) 74 - 99 mg/dL 05/30/2025 8:01 AM EST [facility] Comment:Accuracy of a glucos e result [...] 05/30/2025 8:01 AM EST [facility] Customs Examiner ID Amparo Mccullough 05/30/2025 8:01 AM EST [facility] Device ID [id number] 05/30/2025 8:01 AM EST [facility] Specimen Type POC Capillary 05/30/2025 8:01 AM EST [facility] Blood Capillary blood specimen / Unknown 05/30/2025 8:00 AM EST 05/30/2025 8:01 AM EST us Lokesh Anderson MD LAB POINT OF CARE TE ST DOCKED DEVICE UNSOLICITED RESULTS Final Result Performing Organization Address City/[facility]/ZIP Co de Phone Number [facility] [address] [place] [address] * (ABNORMAL) POCT glucose meter (05/30/2025 5:50 [...] for testing. Comment 05/30/2025 5:52 AM EST [facility] Customs Examiner ID Emily Palomino 05/30/2025 5:52 AM EST [facility] Device ID [id number] 05/30/2025 5:52 AM EST [facility] Specimen Type POC Capillary 05/30/2025 5:52 AM EST [facility] Blood Capillary blood specimen / Unknown 05/30/2025 5:50 AM EST 05/30/2025 5:52 AM EST us Lokesh Anderson MD LAB POINT OF CARE TE ST DOCKED DEVICE UNSOLICITED RESULTS Final Result [facility] [address] [place] [address] * XR Chest 1 View (05/30/2025 5:11 [...] Veena Ho MD on 05/30/2025 11:00 AM Rosa Chapman MOBILE ARCHITECT IMG XR PROCEDURES Final Resul t * Triglycerides (05/30/2025 3:47 AM EST) Triglycerides, Plasma 92 <150 mg/dL 05/30/2025 10:30 AM EST [facility] Comment: Triglyceride Reference Range (age >17 years): Desirable: <150 mg/dL Borderline high: 150 to 199 mg/dL High: 200 to 499 mg/dL Very high: >499 mg/dL Increased risk of pancreatitis: >1000 mg/dL Fasting greater than or equal to 12 hours? Unknown 05/30/2025 10:30 AM EST [facility] Blood Venous blood specimen / Unknown Venipuncture / Unknown 05/30/2025 3:47 AM EST 05/30/2025 4:04 AM EST us Lokesh Anderson MD LAB BLOOD ORDERABLES Final Resul t [facility] [address] [place] [address] * (ABNORMAL) Comprehensive Metabolic Panel, Plasma (05/30/2025 3:47 AM EST) Glucose, Plasma 135(H) 74 - 99 mg/dL 05/30/2025 4:34 AM EST [facility] BUN, Plasma 11 8 - 23 mg/dL 05/30/2025 4:34 AM EST [facility] Creatinine, Plasma 0.45(L) 0.60 - 1.10 mg/dL 05/30/2025 4:34 AM EST [facility] BUN/Creatinine Ratio 24 05/30/2025 4:34 AM EST [facility] Sodium, Plasma 137 136 - 145 mmol/L 05/30/2025 4:34 AM EST [facility] Potassium, Plasma 4.3 3.6 - 4.9 mmol/L 05/30/2025 4:34 AM EST [facility] Chloride, Plasma 104 97 - 107 mmol/L 05/30/2025 4:34 AM EST [facility] CO2, Plasma 25 22 - 29 mmol/L 05/30/2025 4:34 AM EST [facility] Anion Gap 8 6 - 16 mmol/L 05/30/2025 4:34 AM EST [facility] Total Calcium, Plasma 7.8(L) 8.9 - 10.2 mg/dL 05/30/2025 4:34 AM EST [facility] Total Protein 6.0(L) 6.3 - 7.9 g/dL 05/30/2025 4:34 AM EST [facility] Albumin, Plasma 2.0(L) 3.5 - 5.2 g/dL 05/30/2025 4:34 AM EST [facility] AST, Plasma 20 10 - 35 U/L 05/30/2025 4:34 AM EST [facility] Comment:Hemolyzed, result ma y be falsely increased. ALT, Plasma 9(L) 10 - 35 U/L 05/30/2025 4:34 AM EST [facility] Alkaline Phosphatase, Plasma 85 46 - 142 U/L 05/30/2025 4:34 AM EST [facility] Total Bilirubin, Plasma 0.3 0.2 - 1.1 mg/dL 05/30/2025 4:34 AM EST [facility] eGFRcr 103.0 mL/min/1.7 3m*2 05/30/2025 4:34 AM EST [facility] Comment:Reported eGFRcr in m L/min/1.73m2 is based the CKD-EPI 2020 equation that does not use a race coefficient. Blood Venous blood specimen / Unknown Venipuncture / Unknown 05/30/2025 3:47 AM EST 05/30/2025 4:04 AM EST us Lokesh Anderson MD LAB BLOOD ORDERABLES Final Resul t Performing Organization Address City/[facility]/ZIP Co de Phone Number [facility] [address] [place] [address] * Phosphorus, Plasma (05/30/2025 3:47 AM EST) Phosphorus, Plasma 3.4 2.5 - 4.5 mg/dL 05/30/2025 4:34 AM EST [facility] Blood Venous blood specimen / Unknown Venipuncture / Unknown 05/30/2025 3:47 AM EST 05/30/2025 4:04 AM EST us Lokesh Anderson MD LAB BLOOD ORDERABLES Final Resul t Performing Organization Address City/[facility]/ZIP Co de Phone Number [facility] [address] [place] [address] * Magnesium, Plasma (05/30/2025 3:47 AM EST) Magnesium, Plasma 2.0 1.9 - 2.4 mg/dL 05/30/2025 4:34 AM EST [facility] Blood Venous blood specimen / Unknown Venipuncture / Unknown 05/30/2025 3:47 AM EST 05/30/2025 4:04 AM EST us Lokesh Anderson MD LAB BLOOD ORDERABLES Final Resul t [facility] [address] [place] [address] * (ABNORMAL) CBC W/O Differential (05/30/2025 3:47 AM EST) Pathologist [facility] WBC Count 9.27 3.70 - 10.30 10*3/uL LAB HEMATOLOGY METHOD 05/30/2025 4:14 AM EST [facility] RBC Count 3.02(L) 3.90 - 5.20 10*6/uL LAB HEMATOLOGY METHOD 05/30/2025 4:14 AM EST [facility] HGB 8.9(L) 11.2 - 15.7 g/dL LAB HEMATOLOGY METHOD 05/30/2025 4:14 AM EST [facility] HCT 26.9(L) 34.0 - 45.0 % LAB HEMATOLOGY METHOD 05/30/2025 4:14 AM EST [facility] Platelet Count 475(H) 155 - 369 10*3/uL LAB HEMATOLOGY METHOD 05/30/2025 4:14 AM EST [facility] MCV 89 79 - 98 fL LAB HEMATOLOGY METHOD 05/30/2025 4:14 AM EST [facility] MCH 29.5 26.0 - 32.0 pg LAB HEMATOLOGY METHOD 05/30/2025 4:14 AM EST [facility] MCHC 33.1 30.7 - 35.5 g/dL LAB HEMATOLOGY METHOD 05/30/2025 4:14 AM EST [facility] RDW 16.2(H) 11.5 - 14.5 % LAB HEMATOLOGY METHOD 05/30/2025 4:14 AM EST [facility] MPV 9.7 8.8 - 12.5 fL LAB HEMATOLOGY METHOD 05/30/2025 4:14 AM EST [facility] nRBC 0.0 <=0.0 per 100 WBCs LAB HEMATOLOGY METHOD 05/30/2025 4:14 AM EST [facility] Blood Venous blood specimen / Unknown Venipuncture / Unknown 05/30/2025 3:47 AM EST 05/30/2025 4:05 AM EST us Lokesh Anderson MD LAB BLOOD ORDERABLES Final Resul t Performing Organization Address City/[facility] Co de Phone Number [facility] [address] [place] [address] * (ABNORMAL) POCT glucose meter (05/29/2025 11:42 [...] Comment 05/29/2025 11:43 PM EST [facility] Customs Examiner ID Emily Palomino 05/29/2025 11:43 PM EST [facility] Device ID [id number] 05/29/2025 11:43 PM EST [facility] Specimen Type POC Capillary 05/29/2025 11:43 PM EST [facility] Blood Capillary blood specimen / Unknown 05/29/2025 11:42 PM EST 05/29/2025 11:43 PM EST us Lokesh Anderson MD LAB POINT OF CARE TE ST DOCKED DEVICE UNSOLICITED RESULTS Final Result Performing Organization Address City/[facility] Co de Phone Number [facility] [address] [place] [address] * (ABNORMAL) POCT glucose meter (05/29/2025 5:37 [...] for testing. Comment 05/29/2025 5:39 PM EST [facility] Customs Examiner ID Tanvi Howard 05/29/20 5:39 PM EST [facility] Device ID [id number] 05/29/2025 5:39 PM EST [facility] Specimen Type POC Capillary 05/29/2025 5:39 PM EST [facility] Blood Capillary blood specimen / Unknown 05/29/2025 5:37 PM EST 05/29/2025 5:39 PM EST us Lokesh Anderson MD LAB POINT OF CARE TE ST DOCKED DEVICE UNSOLICITED RESULTS Final Result Performing Organization Address City/State/[facility] Co de Phone Number [facility] [address] [place] [address] * (ABNORMAL) POCT glucose meter (05/29/2025 12:06 PM EST) POCT Glucose 212(H) 74 - 99 mg/dL 05/29/2025 12:08 PM EST [facility] Comment:Accuracy of a glucos e [...] for testing. Comment 05/29/2025 12:08 PM EST [facility] Customs Examiner ID Tanvi Howard 05/29/20 12:08 PM EST [facility] Device ID [id number] 05/29/2025 12:08 PM EST [facility] Specimen Type POC Capillary 05/29/2025 12:08 PM EST [facility] Blood Capillary blood specimen / Unknown 05/29/2025 12:06 PM EST 05/29/2025 12:08 PM EST us Lokesh nAderson MD LAB POINT OF CARE TE ST DOCKED DEVICE UNSOLICITED RESULTS Final Result Performing Organization Address [facility] Co de Phone Number [facility] [address] [place] [address] * (ABNORMAL) POCT glucose meter (05/29/2025 8:21 [...] for testing. Comment 05/29/2025 8:23 AM EST [facility] Customs Examiner ID Tanvi Howard 05/29/20 8:23 AM EST [facility] Device ID [id number] 05/29/2025 8:23 AM EST [facility] Specimen Type POC Capillary 05/29/2025 8:23 AM EST [facility] Blood Capillary blood specimen / Unknown 05/29/2025 8:21 AM EST 05/29/2025 8:23 AM EST Lokesh Anderson MD LAB POINT OF CARE TE ST DOCKED DEVICE UNSOLICITED RESULTS Final Result Performing Organization Address [facility] de Phone Number [facility] [address] [place] [address] * XR Chest 1 View (05/29/2025 4:57 [...] MD - 05/29/2025 CLINICAL INDICATION: eval lung montze TECHNIQUE: XR CHEST 1 VIEW COMPARISON: Chest [...] MD on 05/29/2025 10:22 AM Rosa Chapman MOBILE ARCHITECT IMG XR PROCEDURES Final Resul t * (ABNORMAL) Comprehensive Metabolic Panel, Plasma (05/29/2025 3:55 AM EST) Glucose, Plasma 160(H) 74 - 99 mg/dL 05/29/2025 6:02 AM EST [facility] BUN, Plasma 15 8 - 23 mg/dL 05/29/2025 6:02 AM EST [facility] Creatinine, Plasma 0.46(L) 0.60 - 1.10 mg/dL 05/29/2025 6:02 AM EST [facility] BUN/Creatinine Ratio 33 05/29/2025 6:02 AM EST [facility] Sodium, Plasma 135(L) 136 - 145 mmol/L 05/29/2025 6:02 AM EST [facility] Potassium, Plasma 4.1 3.6 - 4.9 mmol/L 05/29/2025 6:02 AM EST [facility] Chloride, Plasma 103 97 - 107 mmol/L 05/29/2025 6:02 AM EST [facility] CO2, Plasma 24 22 - 29 mmol/L 05/29/2025 6:02 AM EST [facility] Anion Gap 8 6 - 16 mmol/L 05/29/2025 6:02 AM EST [facility] Total Calcium, Plasma 7.7(L) 8.9 - 10.2 mg/dL 05/29/2025 6:02 AM EST [facility] Total Protein 5.9(L) 6.3 - 7.9 g/dL 05/29/2025 6:02 AM EST [facility] Albumin, Plasma 2.0(L) 3.5 - 5.2 g/dL 05/29/2025 6:02 AM EST [facility] AST, Plasma 11 10 - 35 U/L 05/29/2025 6:02 AM EST [facility] [facility] ALT, Plasma 8(L) 10 - 35 U/L 05/29/2025 6:02 AM EST [facility] Alkaline Phosphatase, Plasma 81 46 - 142 U/L 05/29/2025 6:02 AM EST [facility] Total Bilirubin, Plasma 0.4 0.2 - 1.1 mg/dL 05/29/2025 6:02 AM EST [facility] eGFRcr 102.5 mL/min/1.7 3m*2 05/29/2025 6:02 AM EST [facility] Comment:Reported eGFRcr in m L/min/1.73m2 is based the CKD-EPI 2020 equation that does not use a race coefficient. Blood Venous blood specimen / Unknown Venipuncture / Unknown 05/29/2025 3:55 AM EST 05/29/2025 4:03 AM EST us Lokesh Anderson MD LAB BLOOD ORDERABLES Final Resul t [facility] [address] [place] [address] * Phosphorus, Plasma (05/29/2025 3:55 AM EST) Phosphorus, Plasma 2.9 2.5 - 4.5 mg/dL 05/29/2025 6:02 AM EST [facility] Blood Venous blood specimen / Unknown Venipuncture / Unknown 05/29/2025 3:55 AM EST 05/29/2025 4:03 AM EST us Lokesh Anderson MD LAB BLOOD ORDERABLES Final Resul t Performing Organization Address City/[facility]/ZIP Co de Phone Number [facility] [address] [place] [address] * (ABNORMAL) Magnesium, Plasma (05/29/2025 3:55 AM EST) Magnesium, Plasma 1.8(L) 1.9 - 2.4 mg/dL 05/29/2025 6:02 AM EST [facility] Blood Venous blood specimen / Unknown Venipuncture / Unknown 05/29/2025 3:55 AM EST 05/29/2025 4:03 AM EST us Lokesh Anderson MD LAB BLOOD ORDERABLES Final Resul t [facility] [address] [place] [address] * (ABNORMAL) CBC W/O Differential (05/29/2025 3:55 AM EST) WBC Count 13.07(H) 3.70 - 10.30 10*3/uL LAB HEMATOLOGY METHOD 05/29/2025 4:19 AM EST [facility] RBC Count 3.15(L) 3.90 - 5.20 10*6/uL LAB HEMATOLOGY METHOD 05/29/2025 4:19 AM EST [facility] HGB 9.3(L) 11.2 - 15.7 g/dL LAB HEMATOLOGY METHOD 05/29/2025 4:19 AM EST [facility] HCT 28.4(L) 34.0 - 45.0 % LAB HEMATOLOGY METHOD 05/29/2025 4:19 AM EST [facility] Platelet Count 469(H) 155 - 369 10*3/uL LAB HEMATOLOGY METHOD 05/29/2025 4:19 AM EST [facility] MCV 90 79 - 98 fL LAB HEMATOLOGY METHOD 05/29/2025 4:19 AM EST [facility] MCH 29.5 26.0 - 32.0 pg LAB HEMATOLOGY METHOD 05/29/2025 4:19 AM EST [facility] MCHC 32.7 30.7 - 35.5 g/dL LAB HEMATOLOGY METHOD 05/29/2025 4:19 AM EST [facility] RDW 16.3(H) 11.5 - 14.5 % LAB HEMATOLOGY METHOD 05/29/2025 4:19 AM EST [facility] MPV 9.2 8.8 - 12.5 fL LAB HEMATOLOGY METHOD 05/29/2025 4:19 AM EST [facility] nRBC 0.0 <=0.0 per 100 WBCs LAB HEMATOLOGY METHOD 05/29/2025 4:19 AM EST [facility] Blood Venous blood specimen / Unknown Venipuncture / Unknown 05/29/2025 3:55 AM EST 05/29/2025 4:03 AM EST us Lokesh Anderson MD LAB BLOOD ORDERABLES Final Resul t [facility] [address] [place] [address] * (ABNORMAL) POCT glucose meter (05/29/2025 3:08 AM EST) POCT Glucose 169(H) 74 - 99 mg/dL 05/29/2025 3:10 AM EST [facility] Comment:Accuracy of a glucos e result [...] Comment 05/29/2025 3:10 AM EST [facility] Customs Examiner ID Jigar Anderson 3:10 AM EST [facility] Device ID [id number] 05/29/2025 3:10 AM EST [facility] Specimen Type POC Capillary 05/29/2025 3:10 AM EST [facility] Blood Capillary blood specimen / Unknown 05/29/2025 3:08 AM EST 05/29/2025 3:10 AM EST us Lokesh Anderson MD LAB POINT OF CARE TE ST DOCKED DEVICE UNSOLICITED RESULTS Final Result Performing Organization Address [facility] de Phone Number [facility] [address] [place] [address] * (ABNORMAL) POCT glucose meter (05/28/2025 11:10 [...] for testing. Comment 05/28/2025 11:12 PM EST [facility] Customs Examiner ID Jigar Anderson 11:12 PM EST [facility] Device ID [id number] 05/28/2025 11:12 PM EST [facility] Specimen Type POC Capillary 05/28/2025 11:12 PM EST [facility] Blood Capillary blood specimen / Unknown 05/28/2025 11:10 PM EST 05/28/2025 11:12 PM EST us Lokesh Anderson MD LAB POINT OF CARE TE ST DOCKED DEVICE UNSOLICITED RESULTS Final Result Performing Organization Address City/[facility] Co de Phone Number [facility] [address] [place] [address] * (ABNORMAL) POCT glucose meter (05/28/2025 6:04 [...] 05/28/2025 6:06 PM EST [facility] Customs Examiner ID Tanvi Howard 05/28/20 6:06 PM EST [facility] Device ID [id number] 05/28/2025 6:06 PM EST [facility] Specimen Type POC Capillary 05/28/2025 6:06 PM EST [facility] Blood Capillary blood specimen / Unknown 05/28/2025 6:04 PM EST 05/28/2025 6:06 PM EST us Lokesh Anderson MD LAB POINT OF CARE TE ST DOCKED DEVICE UNSOLICITED RESULTS Final Result Performing Organization Address City/[facility]/ZIP Co de Phone Number [facility] [address] [place] [address] * (ABNORMAL) POCT glucose meter (05/28/2025 1:14 [...] 05/28/2025 1:19 PM EST [facility] Customs Examiner ID Amena Shipley 05/28/2025 1:19 PM EST [facility] Device ID [id number] 05/28/2025 1:19 PM EST [facility] Specimen Type POC Capillary 05/28/2025 1:19 PM EST [facility] Blood Capillary blood specimen / Unknown 05/28/2025 1:14 PM EST 05/28/2025 1:19 PM EST us Lokesh Andesron MD LAB POINT OF CARE TE ST DOCKED DEVICE UNSOLICITED RESULTS Final Result Performing Organization Address City/[facility]/ZIP Co de Phone Number [facility] [address] [place] [address] * (ABNORMAL) POCT glucose meter (05/28/2025 7:53 [...] 05/28/2025 7:55 AM EST [facility] Customs Examiner ID Tanvi Howard 05/28/20 7:55 AM EST [facility] Device ID [id number] 05/28/2025 7:55 AM EST [facility] Specimen Type POC Capillary 05/28/2025 7:55 AM EST [facility] Blood Capillary blood specimen / Unknown 05/28/2025 7:53 AM EST 05/28/2025 7:55 AM EST Lokesh Anderson MD LAB POINT OF CARE TE ST DOCKED DEVICE UNSOLICITED RESULTS Final Result Performing Organization Address City/State/[facility] Co de Phone Number [facility] [address] [place] [address] * XR Chest 1 View (05/28/2025 6:25 [...] 74 - 99 mg/dL 05/28/2025 6:14 AM [facility] BUN, Plasma 14 8 - 23 mg/dL 05/28/2025 6:14 AM [facility] Creatinine, Plasma 0.46(L) 0.60 - 1.10 mg/dL 05/28/2025 6:14 AM [facility] BUN/Creatinine Ratio 30 05/28/2025 6:14 AM [facility] Sodium, Plasma 133(L) 136 - 145 mmol/L 05/28/2025 6:14 AM [facility] Potassium, Plasma 4.3 3.6 - 4.9 mmol/L 05/28/2025 6:14 AM [facility] Chloride, Plasma 102 97 - 107 mmol/L 05/28/2025 6:14 AM [facility] CO2, Plasma 23 22 - 29 mmol/L 05/28/2025 6:14 AM [facility] Anion Gap 8 6 - 16 mmol/L 05/28/2025 6:14 AM EST [facility] Total Calcium, Plasma 7.5(L) 8.9 - 10.2 mg/dL 05/28/2025 6:14 AM EST [facility] Total Protein 5.7(L) 6.3 - 7.9 g/dL 05/28/2025 6:14 AM EST [facility] Albumin, Plasma 1.9(L) 3.5 - 5.2 g/dL 05/28/2025 6:14 AM EST [facility] AST, Plasma 14 10 - 35 U/L 05/28/2025 6:14 AM EST [facility] ALT, Plasma 10 10 - 35 U/L 05/28/2025 6:14 AM EST [facility] Alkaline Phosphatase, Plasma 77 46 - 142 U/L 05/28/2025 6:14 AM EST [facility] Total Bilirubin, Plasma 0.4 0.2 - 1.1 mg/dL 05/28/2025 6:14 AM EST [facility] eGFRcr 102.5 mL/min/1.7 3m*2 05/28/2025 6:14 AM EST [facility] Comment:Reported eGFRcr in m L/min/1.73m2 is based the CKD-EPI 2020 equation that does not use a race coefficient. Blood Venous blood specimen / Unknown Venipuncture / Unknown 05/28/2025 4:59 AM EST 05/28/2025 5:46 AM EST us Lokesh Anderson MD LAB BLOOD ORDERABLES Final Resul t [facility] [address] [place] [address] * Phosphorus, Plasma (05/28/2025 4:59 AM EST) Phosphorus, Plasma 2.9 2.5 - 4.5 mg/dL 05/28/2025 6:14 AM EST [facility] Blood Venous blood specimen / Unknown Venipuncture / Unknown 05/28/2025 4:59 AM EST 05/28/2025 5:46 AM EST us Lokesh Anderson MD LAB BLOOD ORDERABLES Final Resul t [facility] [address] [place] [address] * Magnesium, Plasma (05/28/2025 4:59 AM EST) Magnesium, Plasma 1.9 1.9 - 2.4 mg/dL 05/28/2025 6:14 AM EST [facility] Blood Venous blood specimen / Unknown Venipuncture / Unknown 05/28/2025 4:59 AM EST 05/28/2025 5:46 AM EST us Lokesh Anderson MD LAB BLOOD ORDERABLES Final Resul t Performing Organization Address City/[facility]/ZIP Co de Phone Number [facility] [address] [place] [address] * (ABNORMAL) CBC W/O Differential (05/28/2025 4:59 AM EST) Pathologist [facility] WBC Count 15.74(H) 3.70 - 10.30 10*3/uL LAB HEMATOLOGY METHOD 05/28/2025 5:58 AM EST [facility] RBC Count 3.35(L) 3.90 - 5.20 10*6/uL LAB HEMATOLOGY METHOD 05/28/2025 5:58 AM EST [facility] HGB 9.8(L) 11.2 - 15.7 g/dL LAB HEMATOLOGY METHOD 05/28/2025 5:58 AM EST [facility] HCT 29.5(L) 34.0 - 45.0 % LAB HEMATOLOGY METHOD 05/28/2025 5:58 AM EST [facility] Platelet Count 538(H) 155 - 369 10*3/uL LAB HEMATOLOGY METHOD 05/28/2025 5:58 AM EST [facility] MCV 88 79 - 98 fL LAB HEMATOLOGY METHOD 05/28/2025 5:58 AM EST [facility] MCH 29.3 26.0 - 32.0 pg LAB HEMATOLOGY METHOD 05/28/2025 5:58 AM EST [facility] MCHC 33.2 30.7 - 35.5 g/dL LAB HEMATOLOGY METHOD 05/28/2025 5:58 AM EST [facility] RDW 16.3(H) 11.5 - 14.5 % LAB HEMATOLOGY METHOD 05/28/2025 5:58 AM EST [facility] MPV 9.7 8.8 - 12.5 fL LAB HEMATOLOGY METHOD 05/28/2025 5:58 AM EST [facility] nRBC 0.0 <=0.0 per 100 WBCs LAB HEMATOLOGY METHOD 05/28/2025 5:58 AM EST [facility] Blood Venous blood specimen / Unknown Venipuncture / Unknown 05/28/2025 4:59 AM EST 05/28/2025 5:47 AM EST us Lokesh Anderson MD LAB BLOOD ORDERABLES Final Resul t [facility] [address] [place] [address] * (ABNORMAL) POCT glucose meter (05/28/2025 4:56 AM EST) POCT Glucose 136(H) 74 - 99 mg/dL 05/28/2025 4:57 AM EST [facility] Comment:Accuracy of a glucos e result [...] for testing. Comment 05/28/2025 4:57 AM EST [facility] Customs Examiner ID Rylie Valentin 4:57 AM EST [facility] Device ID [id number] 05/28/2025 4:57 AM EST [facility] Specimen Type POC Capillary 05/28/2025 4:57 AM EST [facility] Blood Capillary blood specimen / Unknown 05/28/2025 4:56 AM EST 05/28/2025 4:57 AM EST us Lokesh Anderson MD LAB POINT OF CARE TE ST DOCKED DEVICE UNSOLICITED RESULTS Final Result [facility] [address] [place] [address] * (ABNORMAL) POCT glucose meter (05/27/2025 11:46 PM EST) [facility] POCT Glucose 256(H) 74 - 99 mg/dL [...] for testing. Comment 05/27/2025 11:50 PM EST [facility] Customs Examiner ID Emily Palomino 05/27/2025 11:50 PM EST [facility] Device ID [id number] 05/27/2025 11:50 PM EST [facility] Specimen Type POC Capillary 05/27/2025 11:50 PM EST [facility] Blood Capillary blood specimen / Unknown 05/27/2025 11:46 PM EST 05/27/2025 11:50 PM EST Lokesh Anderson MD LAB POINT OF CARE TE ST DOCKED DEVICE UNSOLICITED RESULTS Final Result [facility] [address] [place] [address] * (ABNORMAL) POCT glucose meter (05/27/2025 7:56 PM EST) [facility] POCT Glucose 260(H) 74 - 99 mg/dL [...] 05/27/2025 8:00 PM EST [facility] Customs Examiner ID Beto Benton 025 8:00 PM EST [facility] Device ID [id number] 05/27/2025 8:00 PM EST [facility] Specimen Type POC Capillary 05/27/2025 8:00 PM EST [facility] Blood Capillary blood specimen / Unknown 05/27/2025 7:56 PM EST 05/27/2025 8:00 PM EST Lokesh Anderson MD LAB POINT OF CARE TE ST DOCKED DEVICE UNSOLICITED RESULTS Final Result Performing Organization Address City/State/[facility] Co de Phone Number [facility] [address] [place] [address] * XR Chest 1 View (05/27/2025 7:24 [...] at day 4 06/03/2025 2:28 PM EST [facility] Body Fluid Specimen from pleura obtained by thoracentesis / Unknown Non-blood Collection / Unknown 05/27/2025 6:34 PM EST 05/27/2025 7:38 PM EST Lokesh Anderson MD LAB MICROBIOLOGY - GENERAL ORDER FARSHAD Final Result Performing Organization Address City/[facility]/[place] [address] * Body Fluid Culture and Gram Stain (05/27/2025 6:34 PM EST) Culture No growth at day 4 2024 7:01 AM EST [facility] Gram Stain Result Rare Polymorphonuclear leukocytes 05/31/2025 7:01 AM EST [facility] Gram Stain Result No organisms seen 05/31/2025 7:01 AM EST [facility] Body Fluid Specimen from pleura obtained by thoracentesis / Unknown Non-blood Collection / Unknown 05/27/2025 6:34 PM EST 05/27/2025 7:38 PM EST Lokesh Anderson MD LAB MICROBIOLOGY - GENERAL ORDER FARSHAD Final Result Performing Organization Address City/[facility]/[place] [address] * Lipase, body fluid (05/27/2025 6:34 PM EST) Lipase, Fluid Result 14 U/L 05/30/2025 1:23 PM EST [facility] Lipase Fluid Type Pleural fluid 05/30/2025 1:23 PM EST [facility] Pleural Fluid Non-blood Collection / Unknown 05/27/2025 6:34 PM EST 05/27/2025 7:00 PM EST Narrative [facility] - 05/30/2025 1:23 PM EST Pleural INTERPRETIVE INFORMATION: Lipase, Fluid For information on body fluid reference ranges and/or interpretive guidance visit [email or web address] This test was developed and its performance characteristics determined by [employer]. It has not been cleared or approved by the [place] Food and Drug Administration. This test was performed in a CLIA certified laboratory and is intended for clinical purposes. Performed By: [facility] [address] [place] [address] Marine Railway Operator: Margarito Barlow MD, PhD CLIA Number: [id number] Dylon Griggs MD LAB REF LAB BLOOD AND FLUID ORD Final Result [facility] ([facility] [address] [place] [address] * Amylase, Pleural Fluid (05/27/2025 6:34 PM EST) Amylase, Pleural Fluid 19 U/L 05/27/2025 10:51 PM EST [facility] Pleural Fluid Pleural fluid specimen / Unknown Non-blood Collection / Unknown 05/27/2025 6:34 PM EST 05/27/2025 7:00 PM EST Narrative [facility] - 05/27/2025 10:51 PM EST Reference Values: No established reference interval. Interpret with caution. This test was developed and its performance characteristics determined by [facility]. The U.S. Food and Drug [...] upper reference limit for serum and a apisk-uo-zicfa amylase ratio greater than one. Note: Interpretive [...] O RDERABLES Final Result Performing Organization Address [facility]/ZIP Co de Phone Number [facility] [address] [place] [address] * Transfuse RBC (05/27/2025 5:38 PM EST) Gabriel Duran PULP GRINDER BLOOD TRANSFUSION ORDERAB LES Edited Result - Final * Prepare Leukocyte Reduced RBC: 2 Units (05/27/2025 4:23 PM EST) Product Code [id number] BLOO D BANK Dispense Status Transfused BLOOD BANK Blood Expiration Date BLOOD BANK Unit Number [id number] CH B LOOD BANK Product Blood Type 5100 BLOOD BANK Blood Type O+ BLOOD BANK Crossmatch Compatible BLOOD BANK Product Code [id number] BLOO D BANK Dispense Status Released BLOOD BANK Blood Expiration Date BLOOD BANK Unit Number [id number] CH B LOOD BANK Product Blood Type 5100 BLOOD BANK Blood Type O+ BLOOD BANK Crossmatch Compatible BLOOD BANK Other Gabriel Duran CRNA BLOOD BANK PRODUCT ORDERA BLES Final Result Performing Organization Address [facility] Co de Phone Number BLOOD BANK [address] * (ABNORMAL) POCT glucose meter (05/27/2025 2:35 PM EST) POCT Glucose 190(H) 74 - 99 mg/dL 05/27/2025 2:36 PM EST [facility] Comment:Accuracy of [...] for testing. Comment 05/27/2025 2:36 PM EST [facility] Customs Examiner ID Kalee Duncan 05/27/2025 2:36 PM EST [facility] Device ID [id number] 05/27/2025 2:36 PM EST [facility] Specimen Type POC Venous 05/27/2025 2:36 PM EST [facility] Blood Venous blood specimen / Unknown 05/27/2025 2:35 PM EST 05/27/2025 2:36 PM EST us Lokesh Anderson MD LAB POINT OF CARE TE ST DOCKED DEVICE UNSOLICITED RESULTS Final Result Performing Organization Address City/[facility] Co de Phone Number [facility] [address] [place] [address] * (ABNORMAL) POCT glucose meter (05/27/2025 12:23 PM EST) POCT Glucose 202(H) 74 - 99 mg/dL 05/27/2025 12:25 PM EST [facility] Comment:Accuracy of a [...] for testing. Comment 05/27/2025 12:25 PM EST [facility] Customs Examiner ID Amparo Mccullough 05/27/2025 12:25 PM EST [facility] Device ID [id number] 05/27/2025 12:25 PM EST [facility] Specimen Type POC Capillary 05/27/2025 12:25 PM EST [facility] Blood Capillary blood specimen / Unknown 05/27/2025 12:23 PM EST 05/27/2025 12:25 PM EST us Lokesh Anderson MD LAB POINT OF CARE TE ST DOCKED DEVICE UNSOLICITED RESULTS Final Result [facility] [address] [place] [address] * Type and Screen (05/27/2025 11:33 AM EST) ABO/Rh O Positive 05/27/2025 12:07 PM EST [facility] Antibody Screen Negative 05/27/2025 12:07 PM EST [facility] Specimen Expiration 05/30/2025 23:59 05/27/2025 12:07 PM EST [facility] Blood Venous blood specimen / Unknown Venipuncture / Unknown 05/27/2025 11:33 AM EST 05/27/2025 12:07 PM EST Vanessa COOPER LAB BLOOD BANK TEST ORDERABLES F inal Result BLOOD BANK [address] [place] [address], [place] * XR Chest 1 View (05/27/2025 [...] - 99 mg/dL 05/27/2025 5:52 AM EST [facility] BUN, Plasma 12 8 - 23 mg/dL 05/27/2025 5:52 AM EST [facility] Creatinine, Plasma 0.46(L) 0.60 - 1.10 mg/dL 05/27/2025 5:52 AM EST [facility] BUN/Creatinine Ratio 26 05/27/2025 5:52 AM EST [facility] Sodium, Plasma 135(L) 136 - 145 mmol/L 05/27/2025 5:52 AM EST [facility] Potassium, Plasma 4.2 3.6 - 4.9 mmol/L 05/27/2025 5:52 AM EST [facility] Chloride, Plasma 103 97 - 107 mmol/L 05/27/2025 5:52 AM EST [facility] CO2, Plasma 23 22 - 29 mmol/L 05/27/2025 5:52 AM EST [facility] Anion Gap 9 6 - 16 mmol/L 05/27/2025 5:52 AM EST [facility] Total Calcium, Plasma 8.0(L) 8.9 - 10.2 mg/dL 05/27/2025 5:52 AM EST [facility] Total Protein 6.4 6.3 - 7.9 g/dL 05/27/2025 5:52 AM EST [facility] Albumin, Plasma 2.1(L) 3.5 - 5.2 g/dL 05/27/2025 5:52 AM EST [facility] AST, Plasma 15 10 - 35 U/L 05/27/2025 5:52 AM EST [facility] ALT, Plasma 12 10 - 35 U/L 05/27/2025 5:52 AM EST [facility] Alkaline Phosphatase, Plasma 83 46 - 142 U/L 05/27/2025 5:52 AM EST [facility] Total Bilirubin, Plasma 0.5 0.2 - 1.1 mg/dL 05/27/2025 5:52 AM EST [facility] eGFRcr 102.5 mL/min/1.7 3m*2 05/27/2025 5:52 AM EST [facility] Comment:Reported eGFRcr in m L/min/1.73m2 is based the CKD-EPI 2020 equation that does not use a race coefficient. Blood Venous blood specimen / Unknown Venipuncture / Unknown 05/27/2025 4:52 AM EST 05/27/2025 5:22 AM EST us Lokesh Anderson MD LAB BLOOD ORDERABLES Final Resul t Performing Organization Address City/[facility]/ZIP Co de Phone Number [facility] [address] [place] [address] * Phosphorus, Plasma (05/27/2025 4:52 AM EST) Phosphorus, Plasma 3.3 2.5 - 4.5 mg/dL 05/27/2025 5:52 AM EST [facility] Blood Venous blood specimen / Unknown Venipuncture / Unknown 05/27/2025 4:52 AM EST 05/27/2025 5:22 AM EST us Lokesh Anderson MD LAB BLOOD ORDERABLES Final Resul t [facility] [address] [place] [address] * Magnesium, Plasma (05/27/2025 4:52 AM EST) Magnesium, Plasma 2.0 1.9 - 2.4 mg/dL 05/27/2025 5:52 AM EST [facility] Blood Venous blood specimen / Unknown Venipuncture / Unknown 05/27/2025 4:52 AM EST 05/27/2025 5:22 AM EST us Lokesh Anderson MD LAB BLOOD ORDERABLES Final Resul t [facility] [address] [place] [address] * (ABNORMAL) CBC W/O Differential (05/27/2025 4:52 AM EST) WBC Count 14.09(H) 3.70 - 10.30 10*3/uL LAB HEMATOLOGY METHOD 05/27/2025 5:34 AM EST [facility] RBC Count 3.18(L) 3.90 - 5.20 10*6/uL LAB HEMATOLOGY METHOD 05/27/2025 5:34 AM EST [facility] HGB 9.2(L) 11.2 - 15.7 g/dL LAB HEMATOLOGY METHOD 05/27/2025 5:34 AM EST [facility] HCT 28.2(L) 34.0 - 45.0 % LAB HEMATOLOGY METHOD 05/27/2025 5:34 AM EST [facility] Platelet Count 584(H) 155 - 369 10*3/uL LAB HEMATOLOGY METHOD 05/27/2025 5:34 AM EST [facility] MCV 89 79 - 98 fL LAB HEMATOLOGY METHOD 05/27/2025 5:34 AM EST [facility] MCH 28.9 26.0 - 32.0 pg LAB HEMATOLOGY METHOD 05/27/2025 5:34 AM EST [facility] MCHC 32.6 30.7 - 35.5 g/dL LAB HEMATOLOGY METHOD 05/27/2025 5:34 AM EST [facility] RDW 16.7(H) 11.5 - 14.5 % LAB HEMATOLOGY METHOD 05/27/2025 5:34 AM EST [facility] MPV 9.4 8.8 - 12.5 fL LAB HEMATOLOGY METHOD 05/27/2025 5:34 AM EST [facility] nRBC 0.0 <=0.0 per 100 WBCs LAB HEMATOLOGY METHOD 05/27/2025 5:34 AM EST [facility] Blood Venous blood specimen / Unknown Venipuncture / Unknown 05/27/2025 4:52 AM EST 05/27/2025 5:24 AM EST us Lokesh Anderson MD LAB BLOOD ORDERABLES Final Resul t Performing Organization Address City/[facility]/ZIP Co de Phone Number [facility] [address] [place] [address] * (ABNORMAL) POCT glucose meter (05/27/2025 4:51 AM EST) POCT Glucose 159(H) 74 - 99 mg/dL 05/27/2025 4:52 AM EST [facility] Comment:Accuracy of a [...] for testing. Comment 05/27/2025 4:52 AM EST [facility] Customs Examiner ID Rylie Valentin 4:52 AM EST [facility] Device ID [id number] 05/27/2025 4:52 AM EST [facility] Specimen Type POC Capillary 05/27/2025 4:52 AM EST [facility] Blood Capillary blood specimen / Unknown 05/27/2025 4:51 AM EST 05/27/2025 4:52 AM EST us Lokesh Anderson MD LAB POINT OF CARE TE ST DOCKED DEVICE UNSOLICITED RESULTS Final Result Performing Organization Address City/[facility]/ZIP Co de Phone Number [facility] [address] [place] [address] * (ABNORMAL) POCT glucose meter (05/27/2025 12:04 AM EST) POCT Glucose 187(H) 74 - 99 mg/dL 05/27/2025 12:06 AM EST [facility] Comment:Accuracy of a [...] Comment 05/27/2025 12:06 AM EST [facility] Customs Examiner ID Matthew Lopez 05/27/20 12:06 AM EST [facility] Device ID [id number] 05/27/2025 12:06 AM EST [facility] Specimen Type POC Capillary 05/27/2025 12:06 AM EST [facility] Blood Capillary blood specimen / Unknown 05/27/2025 12:04 AM EST 05/27/2025 12:06 AM EST us Lokesh Anderson MD LAB POINT OF CARE TE ST DOCKED DEVICE UNSOLICITED RESULTS Final Result Performing Organization Address City/[facility] Co de Phone Number [facility] [address] [place] [address] * (ABNORMAL) POCT glucose meter (05/26/2025 5:56 [...] for testing. Comment 05/26/2025 5:57 PM EST [facility] Customs Examiner ID Fannie Cancino 05/26/2025 5:57 PM EST [facility] Device ID [id number] 05/26/2025 5:57 PM EST [facility] Specimen Type POC Capillary 05/26/2025 5:57 PM EST [facility] Blood Capillary blood specimen / Unknown 05/26/2025 5:56 PM EST 05/26/2025 5:57 PM EST us Lokesh Anderson MD LAB POINT OF CARE TE ST DOCKED DEVICE UNSOLICITED RESULTS Final Result [facility] [address] [place] [address] * (ABNORMAL) POCT glucose meter (05/26/2025 12:02 PM EST) POCT Glucose 172(H) 74 - 99 mg/dL 05/26/2025 12:03 PM EST [facility] Comment:Accuracy of a [...] for testing. Comment 05/26/2025 12:03 PM EST [facility] Customs Examiner ID Fannie Cancino 05/26/2025 12:03 PM EST [facility] Device ID [id number] 05/26/2025 12:03 PM EST [facility] Specimen Type POC Capillary 05/26/2025 12:03 PM EST [facility] Blood Capillary blood specimen / Unknown 05/26/2025 12:02 PM EST 05/26/2025 12:03 PM EST Lokesh Anderson MD LAB POINT OF CARE TE ST DOCKED DEVICE UNSOLICITED RESULTS Final Result Performing Organization Address City/State/[facility] Co de Phone Number [facility] [address] [place] [address] * (ABNORMAL) Comprehensive Metabolic Panel, Plasma (05/26/2025 5:50 AM EST) [facility] Glucose, Plasma 170(H) 74 - 99 mg/dL 05/26/2025 6:24 AM EST [facility] BUN, Plasma 12 8 - 23 mg/dL 05/26/2025 6:24 AM EST [facility] Creatinine, Plasma 0.44(L) 0.60 - 1.10 mg/dL 05/26/2025 6:24 AM EST [facility] BUN/Creatinine Ratio 27 05/26/2025 6:24 AM EST [facility] Sodium, Plasma 133(L) 136 - 145 mmol/L 05/26/2025 6:24 AM EST [facility] Potassium, Plasma 4.2 3.6 - 4.9 mmol/L 05/26/2025 6:24 AM EST [facility] Chloride, Plasma 101 97 - 107 mmol/L 05/26/2025 6:24 AM EST [facility] CO2, Plasma 21(L) 22 - 29 mmol/L 05/26/2025 6:24 AM EST [facility] Anion Gap 11 6 - 16 mmol/L 05/26/2025 6:24 AM EST [facility] Total Calcium, Plasma 8.0(L) 8.9 - 10.2 mg/dL 05/26/2025 6:24 AM EST [facility] Total Protein 6.3 6.3 - 7.9 g/dL 05/26/2025 6:24 AM EST [facility] Albumin, Plasma 2.2(L) 3.5 - 5.2 g/dL 05/26/2025 6:24 AM EST [facility] AST, Plasma 22 10 - 35 U/L 05/26/2025 6:24 AM EST [facility] ALT, Plasma 14 10 - 35 U/L 05/26/2025 6:24 AM EST [facility] Alkaline Phosphatase, Plasma 86 46 - 142 U/L 05/26/2025 6:24 AM EST [facility] Total Bilirubin, Plasma 0.5 0.2 - 1.1 mg/dL 05/26/2025 6:24 AM EST [facility] eGFRcr 103.6 mL/min/1.7 3m*2 05/26/2025 6:24 AM EST [facility] Comment:Reported eGFRcr in m L/min/1.73m2 is based the CKD-EPI 2020 equation that does not use a race coefficient. Blood Venous blood specimen / Unknown Venipuncture / Unknown 05/26/2025 5:50 AM EST 05/26/2025 5:56 AM EST us Lokesh Anderson MD LAB BLOOD ORDERABLES Final Resul t [facility] [address] [place] [address] * Phosphorus, Plasma (05/26/2025 5:50 AM EST) Phosphorus, Plasma 3.6 2.5 - 4.5 mg/dL 05/26/2025 6:24 AM EST [facility] Blood Venous blood specimen / Unknown Venipuncture / Unknown 05/26/2025 5:50 AM EST 05/26/2025 5:56 AM EST us Lokesh Anderson MD LAB BLOOD ORDERABLES Final Resul t Performing Organization Address City/[facility]/ZIP Co de Phone Number [facility] [address] [place] [address] * Magnesium, Plasma (05/26/2025 5:50 AM EST) Magnesium, Plasma 1.9 1.9 - 2.4 mg/dL 05/26/2025 6:24 AM EST [facility] Blood Venous blood specimen / Unknown Venipuncture / Unknown 05/26/2025 5:50 AM EST 05/26/2025 5:56 AM EST us Lokesh Anderson MD LAB BLOOD ORDERABLES Final Resul t Performing Organization Address City/[facility]/ZIP Co de Phone Number [facility] [address] [place] [address] * (ABNORMAL) CBC W/O Differential (05/26/2025 5:50 AM EST) WBC Count 15.57(H) 3.70 - 10.30 10*3/uL LAB HEMATOLOGY METHOD 05/26/2025 6:06 AM EST [facility] RBC Count 3.36(L) 3.90 - 5.20 10*6/uL LAB HEMATOLOGY METHOD 05/26/2025 6:06 AM EST [facility] HGB 9.7(L) 11.2 - 15.7 g/dL LAB HEMATOLOGY METHOD 05/26/2025 6:06 AM EST [facility] HCT 29.7(L) 34.0 - 45.0 % LAB HEMATOLOGY METHOD 05/26/2025 6:06 AM EST [facility] Platelet Count 586(H) 155 - 369 10*3/uL LAB HEMATOLOGY METHOD 05/26/2025 6:06 AM EST [facility] MCV 88 79 - 98 fL LAB HEMATOLOGY METHOD 05/26/2025 6:06 AM EST [facility] MCH 28.9 26.0 - 32.0 pg LAB HEMATOLOGY METHOD 05/26/2025 6:06 AM EST [facility] MCHC 32.7 30.7 - 35.5 g/dL LAB HEMATOLOGY METHOD 05/26/2025 6:06 AM EST [facility] RDW 16.7(H) 11.5 - 14.5 % LAB HEMATOLOGY METHOD 05/26/2025 6:06 AM EST [facility] MPV 9.5 8.8 - 12.5 fL LAB HEMATOLOGY METHOD 05/26/2025 6:06 AM EST [facility] nRBC 0.0 <=0.0 per 100 WBCs LAB HEMATOLOGY METHOD 05/26/2025 6:06 AM EST [facility] Blood Venous blood specimen / Unknown Venipuncture / Unknown 05/26/2025 5:50 AM EST 05/26/2025 5:56 AM EST us Lokesh Anderson MD LAB BLOOD ORDERABLES Final Resul t [facility] [address] [place] [address] * (ABNORMAL) POCT glucose meter (05/26/2025 5:47 AM EST) POCT Glucose 170(H) 74 - 99 mg/dL 05/26/2025 5:50 AM EST [facility] Comment:Accuracy of a glucos e result [...] for testing. Comment 05/26/2025 5:50 AM EST [facility] Customs Examiner ID Rylie Valentin 5:50 AM EST [facility] Device ID [id number] 05/26/2025 5:50 AM EST [facility] Specimen Type POC Capillary 05/26/2025 5:50 AM EST [facility] Blood Capillary blood specimen / Unknown 05/26/2025 5:47 AM EST 05/26/2025 5:50 AM EST us Lokesh Anderson MD LAB POINT OF CARE TE ST DOCKED DEVICE UNSOLICITED RESULTS Final Result [facility] [address] [place] [address] * XR Chest 1 View (05/26/2025 2:19 [...] POCT glucose meter (05/25/2025 11:56 PM EST) [facility] POCT Glucose 153(H) 74 - 99 mg/dL 05/25/2025 11:58 PM EST [facility] Comment:Accuracy of a [...] for testing. Comment 05/25/2025 11:58 PM EST [facility] Customs Examiner ID Sandy Massey 05/25/2025 11:58 PM EST [facility] Device ID [id number] 05/25/2025 11:58 PM EST [facility] Specimen Type POC Capillary 05/25/2025 11:58 PM EST [facility] Blood Capillary blood specimen / Unknown 05/25/2025 11:56 PM EST 05/25/2025 11:58 PM EST Lokesh Anderson MD LAB POINT OF CARE TE ST DOCKED DEVICE UNSOLICITED RESULTS Final Result [facility] [address] [place] [address] * (ABNORMAL) POCT glucose meter (05/25/2025 5:50 PM EST) [facility] POCT Glucose 218(H) 74 - 99 mg/dL [...] 05/25/2025 5:52 PM EST [facility] Customs Examiner ID Brielle Coronel 5:52 PM EST [facility] Device ID [id number] 05/25/2025 5:52 PM EST [facility] Specimen Type POC Capillary 05/25/2025 5:52 PM EST [facility] Blood Capillary blood specimen / Unknown 05/25/2025 5:50 PM EST 05/25/2025 5:52 PM EST us Lokesh Anderson MD LAB POINT OF CARE TE ST DOCKED DEVICE UNSOLICITED RESULTS Final Result [facility] [address] [place] [address] * XR Chest 1 View (05/25/2025 1:36 [...] - 99 mg/dL 05/25/2025 12:44 PM EST [facility] Comment:Accuracy of a [...] for testing. Comment 05/25/2025 12:44 PM EST [facility] Customs Examiner ID Brielle Coronel 12:44 PM EST [facility] Device ID [id number] 05/25/2025 12:44 PM EST [facility] Specimen Type POC Capillary 05/25/2025 12:44 PM EST [facility] Blood Capillary blood specimen / Unknown 05/25/2025 12:42 PM EST 05/25/2025 12:44 PM EST Lokesh Anderson MD LAB POINT OF CARE TE ST DOCKED DEVICE UNSOLICITED RESULTS Final Result Performing Organization Address City/State/[facility] Co de Phone Number [facility] [address] [place] [address] * [place] TUBE THORACOSTOMY INCLUDES WATER SEAL, HC TUBE [...] treatment, delayed treatment, alternative treatment and observation [place] protocol: Procedure explained and questions answered to [...] Fluid 18 U/L 05/25/2025 1:27 PM EST [facility] Fluid Drainage fluid specimen / Unknown 05/25/2025 12:37 PM EST 05/25/2025 12:59 PM EST Narrative [facility] - 05/25/2025 1:27 PM EST Reference Values: No established reference interval. Interpret with caution. This test was developed and its performance characteristics determined by [facility]. The U.S. Food and Drug [...] FLUIDS AND STOOLS ORDER FARSHAD Final Result [facility] [address] [place] [address] * Lipase, body fluid (05/25/2025 12:37 PM EST) Pathologist [facility] Lipase, Fluid Result 14 U/L 05/28/2025 12:44 AM EST [email or web address] ([facility]) Lipase Fluid Type Pleural fluid 05/28/2025 12:44 AM EST [facility] ([facility]) Pleural Fluid Non-blood Collection / Unknown 05/25/2025 12:37 PM EST 05/25/2025 12:59 PM EST Narrative [facility] ([facility]) - 05/28/2025 12:44 AM EST Left chest tube INTERPRETIVE INFORMATION: Lipase, Fluid For information on body fluid reference ranges and/or interpretive guidance visit [email or web address]/bodyfluids/ This test was developed and its performance characteristics determined by [facility]. It has not been cleared or approved by the [place] Food and Drug Administration. This test was performed in a CLIA certified laboratory and is intended for clinical purposes. Performed By: [facility] [address] [place] [address] Marine [employer] Operator: Margarito Barlow MD, PhD CLIA Number: [id number] Lokesh Anderson MD LAB REF LAB BLOOD AND FLUID ORD Final Result Performing Organization Address City/[facility] Co de Phone Number [email or web address] ([facility]) [address] [place] [address] * (ABNORMAL) POCT glucose meter (05/25/2025 11:32 AM EST) [facility] POCT Glucose 174(H) 74 - 99 mg/dL 05/25/2025 11:34 AM EST [facility] Comment:Accuracy of a glucos e result [...] for testing. Comment 05/25/2025 11:34 AM EST [facility] Customs Examiner ID Brielle Coronel 11:34 AM EST [facility] Device ID [id number] 05/25/2025 11:34 AM EST [facility] Specimen Type POC Capillary 05/25/2025 11:34 AM EST [facility] Blood Capillary blood specimen / Unknown 05/25/2025 11:32 AM EST 05/25/2025 11:34 AM EST Lokesh Anderson MD LAB POINT OF CARE TE ST DOCKED DEVICE UNSOLICITED RESULTS Final Result [facility] [address] [place] [address] * XR Chest 1 View (05/25/2025 6:47 [...] Heriberto Ivy MD on 05/25/2025 8:27 AM Lokesh Anderson MD IMG XR PROCEDURES Final Result * (ABNORMAL) Comprehensive Metabolic Panel, Plasma (05/25/2025 5:07 AM EST) Glucose, Plasma 151(H) 74 - 99 mg/dL 05/25/2025 5:44 AM EST [facility] BUN, Plasma 12 8 - 23 mg/dL 05/25/2025 5:44 AM EST [facility] Creatinine, Plasma 0.42(L) 0.60 - 1.10 mg/dL 05/25/2025 5:44 AM EST [facility] BUN/Creatinine Ratio 29 05/25/2025 5:44 AM EST [facility] Sodium, Plasma 135(L) 136 - 145 mmol/L 05/25/2025 5:44 AM EST [facility] Potassium, Plasma 4.2 3.6 - 4.9 mmol/L 05/25/2025 5:44 AM EST [facility] Chloride, Plasma 104 97 - 107 mmol/L 05/25/2025 5:44 AM EST [facility] CO2, Plasma 22 22 - 29 mmol/L 05/25/2025 5:44 AM EST [facility] Anion Gap 9 6 - 16 mmol/L 05/25/2025 5:44 AM EST [facility] Total Calcium, Plasma 8.0(L) 8.9 - 10.2 mg/dL 05/25/2025 5:44 AM EST [facility] Total Protein 6.2(L) 6.3 - 7.9 g/dL 05/25/2025 5:44 AM EST [facility] Albumin, Plasma 2.4(L) 3.5 - 5.2 g/dL 05/25/2025 5:44 AM EST [facility] AST, Plasma 20 10 - 35 U/L 05/25/2025 5:44 AM EST [facility] ALT, Plasma 13 10 - 35 U/L 05/25/2025 5:44 AM EST [facility] Alkaline Phosphatase, Plasma 89 46 - 142 U/L 05/25/2025 5:44 AM EST [facility] Total Bilirubin, Plasma 0.4 0.2 - 1.1 mg/dL 05/25/2025 5:44 AM EST [facility] eGFRcr 104.7 mL/min/1.7 3m*2 05/25/2025 5:44 AM EST [facility] Comment:Reported eGFRcr in m L/min/1.73m2 is based the CKD-EPI 2020 equation that does not use a race coefficient. Blood Venous blood specimen / Unknown Venipuncture / Unknown 05/25/2025 5:07 AM EST 05/25/2025 5:15 AM EST us Lokesh Anderson MD LAB BLOOD ORDERABLES Final Resul t [facility] [address] [place] [address] * Phosphorus, Plasma (05/25/2025 5:07 AM EST) Phosphorus, Plasma 2.7 2.5 - 4.5 mg/dL 05/25/2025 5:44 AM EST [facility] Blood Venous blood specimen / Unknown Venipuncture / Unknown 05/25/2025 5:07 AM EST 05/25/2025 5:15 AM EST us Lokesh Anderson MD LAB BLOOD ORDERABLES Final Resul t [facility] [address] [place] [address] * Magnesium, Plasma (05/25/2025 5:07 AM EST) Magnesium, Plasma 1.9 1.9 - 2.4 mg/dL 05/25/2025 5:44 AM EST [facility] Blood Venous blood specimen / Unknown Venipuncture / Unknown 05/25/2025 5:07 AM EST 05/25/2025 5:15 AM EST us Lokesh Anderson MD LAB BLOOD ORDERABLES Final Resul t [facility] [address] [place] [address] * (ABNORMAL) CBC W/O Differential (05/25/2025 5:07 AM EST) WBC Count 15.22(H) 3.70 - 10.30 10*3/uL LAB HEMATOLOGY METHOD 05/25/2025 5:27 AM EST [facility] RBC Count 3.43(L) 3.90 - 5.20 10*6/uL LAB HEMATOLOGY METHOD 05/25/2025 5:27 AM EST [facility] HGB 10.0(L) 11.2 - 15.7 g/dL LAB HEMATOLOGY METHOD 05/25/2025 5:27 AM EST [facility] HCT 30.2(L) 34.0 - 45.0 % LAB HEMATOLOGY METHOD 05/25/2025 5:27 AM EST [facility] Platelet Count 538(H) 155 - 369 10*3/uL LAB HEMATOLOGY METHOD 05/25/2025 5:27 AM EST [facility] MCV 88 79 - 98 fL LAB HEMATOLOGY METHOD 05/25/2025 5:27 AM EST [facility] MCH 29.2 26.0 - 32.0 pg LAB HEMATOLOGY METHOD 05/25/2025 5:27 AM EST [facility] MCHC 33.1 30.7 - 35.5 g/dL LAB HEMATOLOGY METHOD 05/25/2025 5:27 AM EST [facility] RDW 16.6(H) 11.5 - 14.5 % LAB HEMATOLOGY METHOD 05/25/2025 5:27 AM EST [facility] MPV 9.4 8.8 - 12.5 fL LAB HEMATOLOGY METHOD 05/25/2025 5:27 AM EST [facility] nRBC 0.0 <=0.0 per 100 WBCs LAB HEMATOLOGY METHOD 05/25/2025 5:27 AM EST [facility] Blood Venous blood specimen / Unknown Venipuncture / Unknown 05/25/2025 5:07 AM EST 05/25/2025 5:15 AM EST us Lokesh Anderson MD LAB BLOOD ORDERABLES Final Resul t Performing Organization Address [facility] Co de Phone Number [facility] [address] [place] [address] * (ABNORMAL) POCT glucose meter (05/25/2025 5:04 [...] for testing. Comment 05/25/2025 5:06 AM EST [facility] Customs Examiner ID Katlyn Amin 05/25/2025 5:06 AM EST [facility] Device ID [id number] 05/25/2025 5:06 AM EST [facility] Specimen Type POC Capillary 05/25/2025 5:06 AM EST [facility] Blood Capillary blood specimen / Unknown 05/25/2025 5:04 AM EST 05/25/2025 5:06 AM EST us Lokesh Anderson MD LAB POINT OF CARE TE ST DOCKED DEVICE UNSOLICITED RESULTS Final Result Performing Organization Address City/[facility] Co de Phone Number [facility] [address] [place] [address] * (ABNORMAL) POCT glucose meter (05/24/2025 11:11 [...] for testing. Comment 05/24/2025 11:25 PM EST [facility] Customs Examiner ID Katlyn Amin 05/24/2025 11:25 PM EST [facility] Device ID [id number] 05/24/2025 11:25 PM EST [facility] Specimen Type POC Capillary 05/24/2025 11:25 PM EST [facility] Blood Capillary blood specimen / Unknown 05/24/2025 11:11 PM EST 05/24/2025 11:25 PM EST us Lokesh Anderson MD LAB POINT OF CARE TE ST DOCKED DEVICE UNSOLICITED RESULTS Final Result Performing Organization Address City/[facility] Co de Phone Number [facility] [address] [place] [address] * (ABNORMAL) POCT glucose meter (05/24/2025 6:06 PM EST) POCT Glucose 180(H) 74 - 99 mg/dL 05/24/2025 6:08 PM EST [facility] Comment:Accuracy of a glucos e result [...] Comment 05/24/2025 6:08 PM EST [facility] Customs Examiner ID Brielle Coronel 6:08 PM EST [facility] Device ID [id number] 05/24/2025 6:08 PM EST [facility] Specimen Type POC Capillary 05/24/2025 6:08 PM EST [facility] Blood Capillary blood specimen / Unknown 05/24/2025 6:06 PM EST 05/24/2025 6:08 PM EST us Lokesh Anderson MD LAB POINT OF CARE TE ST DOCKED DEVICE UNSOLICITED RESULTS Final Result [facility] [address] [place] [address] * (ABNORMAL) POCT glucose meter (05/24/2025 11:20 AM EST) [facility] POCT Glucose 198(H) 74 - 99 mg/dL 05/24/2025 11:21 AM EST [facility] Comment:Accuracy of [...] 05/24/2025 11:21 AM EST [facility] Customs Examiner ID Brielle Coronel 11:21 AM EST [facility] Device ID [id number] 05/24/2025 11:21 AM EST [facility] Specimen Type POC Capillary 05/24/2025 11:21 AM EST [facility] Blood Capillary blood specimen / Unknown 05/24/2025 11:20 AM EST 05/24/2025 11:21 AM EST Lokesh Anderson MD LAB POINT OF CARE TE ST DOCKED DEVICE UNSOLICITED RESULTS Final Result [facility] [address] [place] [address] * (ABNORMAL) POCT glucose meter (05/24/2025 7:34 AM EST) [facility] POCT Glucose 154(H) 74 - 99 mg/dL 05/24/2025 7:35 AM EST [facility] Comment:Accuracy of [...] 05/24/2025 7:35 AM EST [facility] Customs Examiner ID Jigar Anderson 7:35 AM EST [facility] Device ID [id number] 05/24/2025 7:35 AM EST [facility] Specimen Type POC Capillary 05/24/2025 7:35 AM EST [facility] Blood Capillary blood specimen / Unknown 05/24/2025 7:34 AM EST 05/24/2025 7:35 AM EST us Lokesh Anderson MD LAB POINT OF CARE TE ST DOCKED DEVICE UNSOLICITED RESULTS Final Result [facility] [address] [place] [address] * (ABNORMAL) Comprehensive Metabolic Panel, Plasma (05/24/2025 4:58 AM EST) Glucose, Plasma 167(H) 74 - 99 mg/dL 05/24/2025 5:37 AM EST [facility] BUN, Plasma 12 8 - 23 mg/dL 05/24/2025 5:37 AM EST [facility] Creatinine, Plasma 0.45(L) 0.60 - 1.10 mg/dL 05/24/2025 5:37 AM EST [facility] BUN/Creatinine Ratio 27 05/24/2025 5:37 AM EST [facility] Sodium, Plasma 137 136 - 145 mmol/L 05/24/2025 5:37 AM EST [facility] Potassium, Plasma 4.4 3.6 - 4.9 mmol/L 05/24/2025 5:37 AM EST [facility] Chloride, Plasma 105 97 - 107 mmol/L 05/24/2025 5:37 AM EST [facility] CO2, Plasma 22 22 - 29 mmol/L 05/24/2025 5:37 AM EST [facility] Anion Gap 10 6 - 16 mmol/L 05/24/2025 5:37 AM EST [facility] Total Calcium, Plasma 7.7(L) 8.9 - 10.2 mg/dL 05/24/2025 5:37 AM EST [facility] Total Protein 6.1(L) 6.3 - 7.9 g/dL 05/24/2025 5:37 AM EST [facility] Albumin, Plasma 2.2(L) 3.5 - 5.2 g/dL 05/24/2025 5:37 AM EST [facility] AST, Plasma 22 10 - 35 U/L 05/24/2025 5:37 AM EST [facility] Comment:Hemolyzed, result ma y be falsely increased. ALT, Plasma 10 10 - 35 U/L 05/24/2025 5:37 AM EST [facility] Alkaline Phosphatase, Plasma 84 46 - 142 U/L 05/24/2025 5:37 AM EST [facility] Total Bilirubin, Plasma 0.3 0.2 - 1.1 mg/dL 05/24/2025 5:37 AM EST [facility] eGFRcr 103.0 mL/min/1.7 3m*2 05/24/2025 5:37 AM EST [facility] Comment:Reported eGFRcr in m L/min/1.73m2 is based the CKD-EPI 2020 equation that does not use a race coefficient. Blood Venous blood specimen / Unknown Venipuncture / Unknown 05/24/2025 4:58 AM EST 05/24/2025 5:07 AM EST us Lokesh Anderson MD LAB BLOOD ORDERABLES Final Resul t Performing Organization Address City/[facility] Co de Phone Number [facility] [address] [place] [address] * Phosphorus, Plasma (05/24/2025 4:58 AM EST) Phosphorus, Plasma 2.8 2.5 - 4.5 mg/dL 05/24/2025 5:37 AM EST [facility] Blood Venous blood specimen / Unknown Venipuncture / Unknown 05/24/2025 4:58 AM EST 05/24/2025 5:07 AM EST us Lokesh Anderson MD LAB BLOOD ORDERABLES Final Resul t [facility] [address] [place] [address] * Magnesium, Plasma (05/24/2025 4:58 AM EST) Magnesium, Plasma 1.9 1.9 - 2.4 mg/dL 05/24/2025 5:37 AM EST [facility] Blood Venous blood specimen / Unknown Venipuncture / Unknown 05/24/2025 4:58 AM EST 05/24/2025 5:07 AM EST us Lokesh Anderson MD LAB BLOOD ORDERABLES Final Resul t [facility] [address] [place] [address] * (ABNORMAL) CBC W/O Differential (05/24/2025 4:58 AM EST) WBC Count 13.62(H) 3.70 - 10.30 10*3/uL LAB HEMATOLOGY METHOD 05/24/2025 5:17 AM EST [facility] RBC Count 3.42(L) 3.90 - 5.20 10*6/uL LAB HEMATOLOGY METHOD 05/24/2025 5:17 AM EST [facility] HGB 10.0(L) 11.2 - 15.7 g/dL LAB HEMATOLOGY METHOD 05/24/2025 5:17 AM EST [facility] HCT 30.0(L) 34.0 - 45.0 % LAB HEMATOLOGY METHOD 05/24/2025 5:17 AM EST [facility] Platelet Count 517(H) 155 - 369 10*3/uL LAB HEMATOLOGY METHOD 05/24/2025 5:17 AM EST [facility] MCV 88 79 - 98 fL LAB HEMATOLOGY METHOD 05/24/2025 5:17 AM EST [facility] MCH 29.2 26.0 - 32.0 pg LAB HEMATOLOGY METHOD 05/24/2025 5:17 AM EST [facility] MCHC 33.3 30.7 - 35.5 g/dL LAB HEMATOLOGY METHOD 05/24/2025 5:17 AM EST [facility] RDW 17.0(H) 11.5 - 14.5 % LAB HEMATOLOGY METHOD 05/24/2025 5:17 AM EST [facility] MPV 9.6 8.8 - 12.5 fL LAB HEMATOLOGY METHOD 05/24/2025 5:17 AM EST [facility] nRBC 0.0 <=0.0 per 100 WBCs LAB HEMATOLOGY METHOD 05/24/2025 5:17 AM EST [facility] Blood Venous blood specimen / Unknown Venipuncture / Unknown 05/24/2025 4:58 AM EST 05/24/2025 5:07 AM EST us Lokesh Anderson MD LAB BLOOD ORDERABLES Final Resul t [facility] [address] [place] [address] * (ABNORMAL) POCT glucose meter (05/24/2025 4:55 AM EST) POCT Glucose 159(H) 74 - 99 mg/dL 05/24/2025 4:56 AM EST [facility] Comment:Accuracy of a glucos e result [...] for testing. Comment 05/24/2025 4:56 AM EST [facility] Examiner ID Rylie Valentin 4:56 AM EST [facility] Device ID [id number] 05/24/2025 4:56 AM EST [facility] Specimen Type POC Capillary 05/24/2025 4:56 AM EST [facility] Blood Capillary blood specimen / Unknown 05/24/2025 4:55 AM EST 05/24/2025 4:56 AM EST us Lokesh Anderson MD LAB POINT OF CARE TE ST DOCKED DEVICE UNSOLICITED RESULTS Final Result [facility] [address] [place] [address] * (ABNORMAL) POCT glucose meter (05/24/2025 4:52 AM EST) POCT Glucose 59(L) 74 - 99 mg/dL 05/24/2025 4:54 AM EST [facility] Comment:Accuracy of a [...] for testing. Comment 05/24/2025 4:54 AM EST [facility] Examiner ID Rylie Valentin 4:54 AM EST [facility] Device ID [id number] 05/24/2025 4:54 AM EST [facility] Specimen Type POC Capillary 05/24/2025 4:54 AM EST [facility] Blood Capillary blood specimen / Unknown 05/24/2025 4:52 AM EST 05/24/2025 4:54 AM EST Lokesh Anderson MD LAB POINT OF CARE TE ST DOCKED DEVICE UNSOLICITED RESULTS Final Result [facility] [address] [place] [id number] * XR Chest 1 View (05/24/2025 1:28 [...] - 99 mg/dL 05/23/2025 11:59 PM EST [facility] Comment:Accuracy of a glucos e result [...] for testing. Comment 05/23/2025 11:59 PM EST [facility] Customs Examiner ID Katlyn Amin 05/23/2025 11:59 PM EST [facility] Device ID [id number] 05/23/2025 11:59 PM EST [facility] Specimen Type POC Capillary 05/23/2025 11:59 PM EST [facility] Blood Capillary blood specimen / Unknown 05/23/2025 11:57 PM EST 05/23/2025 11:59 PM EST Lokesh Anderosn MD LAB POINT OF CARE TE ST DOCKED DEVICE UNSOLICITED RESULTS Final Result [facility] [address] [place] [address] * (ABNORMAL) POCT glucose meter (05/23/2025 4:27 [...] 05/23/2025 4:33 PM EST [facility] Customs Examiner ID Emily Kong 05/23/20 4:33 PM EST [facility] Device ID [id number] 05/23/2025 4:33 PM EST [facility] Specimen Type POC Capillary 05/23/2025 4:33 PM EST [facility] Blood Capillary blood specimen / Unknown 05/23/2025 4:27 PM EST 05/23/2025 4:33 PM EST us Lokesh Anderson MD LAB POINT OF CARE TE ST DOCKED DEVICE UNSOLICITED RESULTS Final Result Performing Organization Address City/[facility]/ZIP Co de Phone Number [facility] [address] [place] [address] * (ABNORMAL) POCT glucose meter (05/23/2025 12:07 PM EST) [facility] POCT Glucose 224(H) 74 - 99 mg/dL [...] 05/23/2025 12:09 PM EST [facility] Customs Examiner ID Raffi Saenz 05/23/2025 12:09 PM EST [facility] Device ID [id number] 05/23/2025 12:09 PM EST [facility] Specimen Type POC Capillary 05/23/2025 12:09 PM EST [facility] Blood Capillary blood specimen / Unknown 05/23/2025 12:07 PM EST 05/23/2025 12:09 PM EST us Lokesh Anderson MD LAB POINT OF CARE TE ST DOCKED DEVICE UNSOLICITED RESULTS Final Result [facility] [address] [place] [address] * (ABNORMAL) POCT glucose meter (05/23/2025 4:38 [...] for testing. Comment 05/23/2025 4:39 AM EST [facility] Examiner ID Laurie Smyth 05/23/2025 4:39 AM EST [facility] Device ID [id number] 05/23/2025 4:39 AM EST [facility] Specimen Type POC Capillary 05/23/2025 4:39 AM EST [facility] Blood Capillary blood specimen / Unknown 05/23/2025 4:38 AM EST 05/23/2025 4:39 AM EST Lokesh Anderson MD LAB POINT OF CARE TE ST DOCKED DEVICE UNSOLICITED RESULTS Final Result [facility] [address] [place] [address] * (ABNORMAL) Comprehensive Metabolic Panel, Plasma (05/23/2025 4:29 AM EST) Glucose, Plasma 177(H) 74 - 99 mg/dL 05/23/2025 5:47 AM EST [facility] BUN, Plasma 11 8 - 23 mg/dL 05/23/2025 5:47 AM EST [facility] Creatinine, Plasma 0.43(L) 0.60 - 1.10 mg/dL 05/23/2025 5:47 AM EST [facility] BUN/Creatinine Ratio 26 05/23/2025 5:47 AM EST [facility] Sodium, Plasma 134(L) 136 - 145 mmol/L 05/23/2025 5:47 AM EST [facility] Potassium, Plasma 4.2 3.6 - 4.9 mmol/L 05/23/2025 5:47 AM EST [facility] Chloride, Plasma 103 97 - 107 mmol/L 05/23/2025 5:47 AM EST [facility] CO2, Plasma 21(L) 22 - 29 mmol/L 05/23/2025 5:47 AM EST [facility] Anion Gap 10 6 - 16 mmol/L 05/23/2025 5:47 AM EST [facility] Total Calcium, Plasma 7.9(L) 8.9 - 10.2 mg/dL 05/23/2025 5:47 AM EST [facility] Total Protein 6.0(L) 6.3 - 7.9 g/dL 05/23/2025 5:47 AM EST [facility] Albumin, Plasma 2.1(L) 3.5 - 5.2 g/dL 05/23/2025 5:47 AM EST [facility] AST, Plasma 16 10 - 35 U/L 05/23/2025 5:47 AM EST [facility] Comment:Hemolyzed, result ma y be falsely increased. ALT, Plasma 8(L) 10 - 35 U/L 05/23/2025 5:47 AM EST [facility] Alkaline Phosphatase, Plasma 73 46 - 142 U/L 05/23/2025 5:47 AM EST [facility] Total Bilirubin, Plasma 0.3 0.2 - 1.1 mg/dL 05/23/2025 5:47 AM EST [facility] eGFRcr 104.1 mL/min/1.7 3m*2 05/23/2025 5:47 AM EST [facility] Comment:Reported eGFRcr in m L/min/1.73m2 is based the CKD-EPI 2020 equation that does not use a race coefficient. Blood Venous blood specimen / Unknown Venipuncture / Unknown 05/23/2025 4:29 AM EST 05/23/2025 4:55 AM EST us Lokesh Anderson MD LAB BLOOD ORDERABLES Final Resul t [facility] [address] [place] [address] * Phosphorus, Plasma (05/23/2025 4:29 AM EST) Phosphorus, Plasma 2.6 2.5 - 4.5 mg/dL 05/23/2025 5:47 AM EST [facility] Blood Venous blood specimen / Unknown Venipuncture / Unknown 05/23/2025 4:29 AM EST 05/23/2025 4:55 AM EST us Lokesh Anderson MD LAB BLOOD ORDERABLES Final Resul t Performing Organization Address City/[facility]/ZIP Co de Phone Number [facility] [address] [place] [address] * (ABNORMAL) Magnesium, Plasma (05/23/2025 4:29 AM EST) Magnesium, Plasma 1.8(L) 1.9 - 2.4 mg/dL 05/23/2025 5:47 AM EST [facility] Blood Venous blood specimen / Unknown Venipuncture / Unknown 05/23/2025 4:29 AM EST 05/23/2025 4:55 AM EST us Lokesh Anderson MD LAB BLOOD ORDERABLES Final Resul t Performing Organization Address City/[facility]/ZIP Co de Phone Number [facility] [address] [place] [address] * (ABNORMAL) CBC W/O Differential (05/23/2025 4:29 AM EST) WBC Count 13.42(H) 3.70 - 10.30 10*3/uL LAB HEMATOLOGY METHOD 05/23/2025 5:05 AM EST [facility] RBC Count 3.50(L) 3.90 - 5.20 10*6/uL LAB HEMATOLOGY METHOD 05/23/2025 5:05 AM EST [facility] HGB 10.4(L) 11.2 - 15.7 g/dL LAB HEMATOLOGY METHOD 05/23/2025 5:05 AM EST [facility] HCT 30.4(L) 34.0 - 45.0 % LAB HEMATOLOGY METHOD 05/23/2025 5:05 AM EST [facility] Platelet Count 517(H) 155 - 369 10*3/uL LAB HEMATOLOGY METHOD 05/23/2025 5:05 AM EST [facility] MCV 87 79 - 98 fL LAB HEMATOLOGY METHOD 05/23/2025 5:05 AM EST [facility] MCH 29.7 26.0 - 32.0 pg LAB HEMATOLOGY METHOD 05/23/2025 5:05 AM EST [facility] MCHC 34.2 30.7 - 35.5 g/dL LAB HEMATOLOGY METHOD 05/23/2025 5:05 AM EST [facility] RDW 16.9(H) 11.5 - 14.5 % LAB HEMATOLOGY METHOD 05/23/2025 5:05 AM EST [facility] MPV 10.0 8.8 - 12.5 fL LAB HEMATOLOGY METHOD 05/23/2025 5:05 AM EST [facility] nRBC 0.0 <=0.0 per 100 WBCs LAB HEMATOLOGY METHOD 05/23/2025 5:05 AM EST [facility] Blood Venous blood specimen / Unknown Venipuncture / Unknown 05/23/2025 4:29 AM EST 05/23/2025 4:56 AM EST us Lokesh Anderson MD LAB BLOOD ORDERABLES Final Resul t [facility] [address] [place] [address] * XR Chest 1 View (05/23/2025 1:23 [...] - 99 mg/dL 05/23/2025 12:03 AM EST [facility] Comment:Accuracy of a glucos e result [...] for testing. Comment 05/23/2025 12:03 AM EST [facility] Customs Examiner ID Laurie Smyth 05/23/2025 12:03 AM EST [facility] Device ID [id number] 05/23/2025 12:03 AM EST [facility] Specimen Type POC Capillary 05/23/2025 12:03 AM EST [facility] Blood Capillary blood specimen / Unknown 05/23/2025 12:01 AM EST 05/23/2025 12:03 AM EST Lokesh Anderson MD LAB POINT OF CARE TE ST DOCKED DEVICE UNSOLICITED RESULTS Final Result [facility] [address] [place] [address] * (ABNORMAL) POCT glucose meter (05/22/2025 8:04 [...] for testing. Comment 05/22/2025 8:06 PM EST [facility] Customs Examiner ID Laurie Smyth 05/22/2025 8:06 PM EST [facility] Device ID [id number] 05/22/2025 8:06 PM EST [facility] Specimen Type POC Capillary 05/22/2025 8:06 PM EST [facility] Blood Capillary blood specimen / Unknown 05/22/2025 8:04 PM EST 05/22/2025 8:06 PM EST us Lokesh Anderson MD LAB POINT OF CARE TE ST DOCKED DEVICE UNSOLICITED RESULTS Final Result Performing Organization Address City/[facility]/ZIP Co de Phone Number [facility] [address] [place] [address] * (ABNORMAL) POCT glucose meter (05/22/2025 4:19 PM EST) [facility] POCT Glucose 142(H) 74 - 99 mg/dL 05/22/2025 4:23 PM EST [facility] Comment:Accuracy of a glucos e result [...] for testing. Comment 05/22/2025 4:23 PM EST [facility] Customs Examiner ID Sarai Matthews 05/22/20 4:23 PM EST [facility] Device ID [id number] 05/22/2025 4:23 PM EST [facility] Specimen Type POC Capillary 05/22/2025 4:23 PM EST [facility] Blood Capillary blood specimen / Unknown 05/22/2025 4:19 PM EST 05/22/2025 4:23 PM EST us Lokesh Anderson MD LAB POINT OF CARE TE ST DOCKED DEVICE UNSOLICITED RESULTS Final Result [facility] [address] [place] [address] * (ABNORMAL) POCT glucose meter (05/22/2025 11:44 [...] 05/22/2025 11:51 AM EST [facility] Customs Examiner ID Sarai Matthews 05/22/20 11:51 AM EST [facility] Device ID [id number] 05/22/2025 11:51 AM EST [facility] Specimen Type POC Capillary 05/22/2025 11:51 AM EST [facility] Blood Capillary blood specimen / Unknown 05/22/2025 11:44 AM EST 05/22/2025 11:51 AM EST Lokesh Anderson MD LAB POINT OF CARE TE ST DOCKED DEVICE UNSOLICITED RESULTS Final Result [facility] [address] [place] [address] * CT Chest w IV Contrast (05/22/2025 [...] 99 mg/dL 05/22/2025 8:23 AM EST [facility] Comment:Accuracy [...] for testing. Comment 05/22/2025 8:23 AM EST [facility] Customs Examiner ID Sarai Matthews 05/22/20 8:23 AM EST [facility] Device ID [id number] 05/22/2025 8:23 AM EST [facility] Specimen Type POC Capillary 05/22/2025 8:23 AM EST [facility] Blood Capillary blood specimen / Unknown 05/22/2025 8:15 AM EST 05/22/2025 8:23 AM EST us Lokesh Anderson MD LAB POINT OF CARE TE ST DOCKED DEVICE UNSOLICITED RESULTS Final Result [facility] [address] [place] [address] * (ABNORMAL) POCT glucose meter (05/22/2025 6:22 AM EST) [facility] POCT Glucose 158(H) 74 - 99 mg/dL [...] for testing. Comment 05/22/2025 6:25 AM EST [facility] Customs Examiner ID Teri Howard 025 6:25 AM EST [facility] Device ID [id number] 05/22/2025 6:25 AM EST [facility] Specimen Type POC Capillary 05/22/2025 6:25 AM EST [facility] Blood Capillary blood specimen / Unknown 05/22/2025 6:22 AM EST 05/22/2025 6:25 AM EST Lokesh Anderson MD LAB POINT OF CARE TE ST DOCKED DEVICE UNSOLICITED RESULTS Final Result Performing Organization Address [facility] Co de Phone Number [facility] [address] [place] [address] * (ABNORMAL) Comprehensive Metabolic Panel, Plasma (05/22/2025 3:53 AM EST) [facility] Glucose, Plasma 164(H) 74 - 99 mg/dL 05/22/2025 4:29 AM EST [facility] BUN, Plasma 10 8 - 23 mg/dL 05/22/2025 4:29 AM EST [facility] Creatinine, Plasma 0.54(L) 0.60 - 1.10 mg/dL 05/22/2025 4:29 AM EST [facility] BUN/Creatinine Ratio 19 05/22/2025 4:29 AM EST [facility] Sodium, Plasma 136 136 - 145 mmol/L 05/22/2025 4:29 AM EST [facility] Potassium, Plasma 4.2 3.6 - 4.9 mmol/L 05/22/2025 4:29 AM EST [facility] Chloride, Plasma 105 97 - 107 mmol/L 05/22/2025 4:29 AM EST [facility] CO2, Plasma 21(L) 22 - 29 mmol/L 05/22/2025 4:29 AM EST [facility] Anion Gap 10 6 - 16 mmol/L 05/22/2025 4:29 AM EST [facility] Total Calcium, Plasma 7.7(L) 8.9 - 10.2 mg/dL 05/22/2025 4:29 AM EST [facility] Total Protein 5.8(L) 6.3 - 7.9 g/dL 05/22/2025 4:29 AM EST [facility] Albumin, Plasma 2.0(L) 3.5 - 5.2 g/dL 05/22/2025 4:29 AM EST [facility] AST, Plasma 11 10 - 35 U/L 05/22/2025 4:29 AM EST [facility] ALT, Plasma 5(L) 10 - 35 U/L 05/22/2025 4:29 AM EST [facility] Alkaline Phosphatase, Plasma 77 46 - 142 U/L 05/22/2025 4:29 AM EST [facility] Total Bilirubin, Plasma 0.3 0.2 - 1.1 mg/dL 05/22/2025 4:29 AM EST [facility] eGFRcr 98.6 mL/min/1.7 3m*2 05/22/2025 4:29 AM EST [facility] Comment:Reported eGFRcr in m L/min/1.73m2 is based the CKD-EPI 2020 equation that does not use a race coefficient. Blood Venous blood specimen / Unknown Venipuncture / Unknown 05/22/2025 3:53 AM EST 05/22/2025 3:59 AM EST us Lokesh Anderson MD LAB BLOOD ORDERABLES Final Resul t [facility] [address] [place] [address] * Phosphorus, Plasma (05/22/2025 3:53 AM EST) Phosphorus, Plasma 3.3 2.5 - 4.5 mg/dL 05/22/2025 4:29 AM EST [facility] Blood Venous blood specimen / Unknown Venipuncture / Unknown 05/22/2025 3:53 AM EST 05/22/2025 3:59 AM EST us Lokesh Anderson MD LAB BLOOD ORDERABLES Final Resul t Performing Organization Address City/[facility]/ZIP Co de Phone Number [facility] [address] [place] [address] * Magnesium, Plasma (05/22/2025 3:53 AM EST) Magnesium, Plasma 1.9 1.9 - 2.4 mg/dL 05/22/2025 4:29 AM EST [facility] Blood Venous blood specimen / Unknown Venipuncture / Unknown 05/22/2025 3:53 AM EST 05/22/2025 3:59 AM EST us Lokesh Anderson MD LAB BLOOD ORDERABLES Final Resul t Performing Organization Address City/[facility] Co de Phone Number [facility] [address] [place] [address] * (ABNORMAL) CBC W/O Differential (05/22/2025 3:53 AM EST) Pathologist [facility] WBC Count 14.71(H) 3.70 - 10.30 10*3/uL LAB HEMATOLOGY METHOD 05/22/2025 4:08 AM EST [facility] RBC Count 3.65(L) 3.90 - 5.20 10*6/uL LAB HEMATOLOGY METHOD 05/22/2025 4:08 AM EST [facility] HGB 10.6(L) 11.2 - 15.7 g/dL LAB HEMATOLOGY METHOD 05/22/2025 4:08 AM EST [facility] HCT 32.3(L) 34.0 - 45.0 % LAB HEMATOLOGY METHOD 05/22/2025 4:08 AM EST [facility] Platelet Count 444(H) 155 - 369 10*3/uL LAB HEMATOLOGY METHOD 05/22/2025 4:08 AM EST [facility] MCV 89 79 - 98 fL LAB HEMATOLOGY METHOD 05/22/2025 4:08 AM EST [facility] MCH 29.0 26.0 - 32.0 pg LAB HEMATOLOGY METHOD 05/22/2025 4:08 AM EST [facility] MCHC 32.8 30.7 - 35.5 g/dL LAB HEMATOLOGY METHOD 05/22/2025 4:08 AM EST [facility] RDW 16.8(H) 11.5 - 14.5 % LAB HEMATOLOGY METHOD 05/22/2025 4:08 AM EST [facility] MPV 9.9 8.8 - 12.5 fL LAB HEMATOLOGY METHOD 05/22/2025 4:08 AM EST [facility] nRBC 0.0 <=0.0 per 100 WBCs LAB HEMATOLOGY METHOD 05/22/2025 4:08 AM EST [facility] Blood Venous blood specimen / Unknown Venipuncture / Unknown 05/22/2025 3:53 AM EST 05/22/2025 4:00 AM EST us Lokesh Anderson MD LAB BLOOD ORDERABLES Final Resul t [facility] [address] [place] [address] * XR Chest 1 View (05/22/2025 1:37 [...] - 99 mg/dL 05/22/2025 1:09 AM EST [facility] Comment:Accuracy of a glucos e result [...] for testing. Comment 05/22/2025 1:09 AM EST [facility] Customs Examiner ID Florence Deleon 1:09 AM EST [facility] Device ID [id number] 05/22/2025 1:09 AM EST [facility] Specimen Type POC Capillary 05/22/2025 1:09 AM EST [facility] Blood Capillary blood specimen / Unknown 05/22/2025 12:59 AM EST 05/22/2025 1:09 AM EST us Lokesh Anderson MD LAB POINT OF CARE TE ST DOCKED DEVICE UNSOLICITED RESULTS Final Result [facility] [address] [place] [address] * (ABNORMAL) POCT glucose meter (05/21/2025 8:07 PM EST) [facility] POCT Glucose 143(H) 74 - 99 mg/dL 05/21/2025 8:08 PM EST [facility] Comment:Accuracy of [...] for testing. Comment 05/21/2025 8:08 PM EST [facility] Customs Examiner ID Jigar Anderson 8:08 PM EST [facility] Device ID [id number] 05/21/2025 8:08 PM EST [facility] Specimen Type POC Capillary 05/21/2025 8:08 PM EST [facility] Blood Capillary blood specimen / Unknown 05/21/2025 8:07 PM EST 05/21/2025 8:08 PM EST Lokesh Anderson MD LAB POINT OF CARE TE ST DOCKED DEVICE UNSOLICITED RESULTS Final Result Performing Organization Address City/State/[facility] Co de Phone Number [facility] [address] [place] [phone] * (ABNORMAL) POCT glucose meter (05/21/2025 5:28 PM EST) [facility] POCT Glucose 147(H) 74 - 99 mg/dL [...] 05/21/2025 5:33 PM EST [facility] Customs Examiner ID Sarai Matthews 05/21/20 5:33 PM EST [facility] Device ID [id number] 05/21/2025 5:33 PM EST [facility] Specimen Type POC Capillary 05/21/2025 5:33 PM EST [facility] Blood Capillary blood specimen / Unknown 05/21/2025 5:28 PM EST 05/21/2025 5:33 PM EST us Lokesh Anderson MD LAB POINT OF CARE TE ST DOCKED DEVICE UNSOLICITED RESULTS Final Result [facility] [address] [place] [address] * XR Chest 1 View (05/21/2025 2:10 [...] 6:[address]-guided left-sided 10 Niuean chest tube placement. PLAN: -Chest tube maintenance [...] image guided left-sided chest tube placement. TECHNIQUE: [employer] Supervisor: Malou Verma M.D. Secondary Customs Examiner: Sadi Yousif [facility] Supervising Attending: Nasima Sequeira M.D. Nurse: Viviane [...] image guided left-sided chest tube placement. TECHNIQUE: [employer] Supervisor: Malou Verma M.D. Secondary Customs Examiner: Sadi Wileyy [facility] Supervising Attending: Nasima Sequeira M.D. Nurse: Viviane [...] COMPLICATION: No. IMPRESSION: Successful CT-guided left-sided 10 Niuean chest tube placement. PLAN: -Chest tube maintenance [...] report, I, the attending physician, attestthat I was present for the entire procedure(s) and agree with the finaledited report. Drafted by Nasima Sequeira MD on 05/21/2025 5:59 PM Final report signed by Nasima Sequeira MD on 05/21/2025 6:07 PM us Lokesh Anderson MD IMG CT PROCEDURES Final Result * Body Fluid Culture and Gram Stain (05/21/2025 11:30 AM EST) Culture No growth at day 4 2024 8:22 AM EST [facility] Gram Stain Result No polymorphonuclear leukocytes seen 05/24/2025 8:22 AM EST [facility] Gram Stain Result No organisms seen 05/24/2025 8:22 AM EST [facility] Pleural Fluid Structure of left pleural cavity / Unknown Non-blood Collection / Unknown 05/21/2025 11:30 AM EST 05/21/2025 12:40 PM EST us Lokesh Anderson MD LAB MICROBIOLOGY - GENERAL ORDER FARSHAD Final Result [facility] [address] [place] [address] * (ABNORMAL) POCT glucose meter (05/21/2025 5:16 AM EST) POCT Glucose 118(H) 74 - 99 mg/dL 05/21/2025 5:18 AM EST [facility] Comment:Accuracy of a glucos e result [...] for testing. Comment 05/21/2025 5:18 AM EST [facility] Customs Examiner ID David Serrano 025 5:18 AM EST [facility] Device ID [id number] 05/21/2025 5:18 AM EST [facility] Specimen Type POC Capillary 05/21/2025 5:18 AM EST [facility] Blood Capillary blood specimen / Unknown 05/21/2025 5:16 AM EST 05/21/2025 5:18 AM EST Lokesh Anderson MD LAB POINT OF CARE TE ST DOCKED DEVICE UNSOLICITED RESULTS Final Result [facility] [address] [place] [address] * (ABNORMAL) Comprehensive Metabolic Panel, Plasma (05/21/2025 3:15 AM EST) Glucose, Plasma 116(H) 74 - 99 mg/dL 05/21/2025 3:51 AM EST [facility] BUN, Plasma 11 8 - 23 mg/dL 05/21/2025 3:51 AM EST [facility] Creatinine, Plasma 0.61 0.60 - 1.10 mg/dL 05/21/2025 3:51 AM EST [facility] BUN/Creatinine Ratio 18 05/21/2025 3:51 AM EST [facility] Sodium, Plasma 136 136 - 145 mmol/L 05/21/2025 3:51 AM EST [facility] Potassium, Plasma 4.4 3.6 - 4.9 mmol/L 05/21/2025 3:51 AM EST [facility] Chloride, Plasma 105 97 - 107 mmol/L 05/21/2025 3:51 AM EST [facility] CO2, Plasma 21(L) 22 - 29 mmol/L 05/21/2025 3:51 AM EST [facility] Anion Gap 10 6 - 16 mmol/L 05/21/2025 3:51 AM EST [facility] Total Calcium, Plasma 7.9(L) 8.9 - 10.2 mg/dL 05/21/2025 3:51 AM EST [facility] Total Protein 5.9(L) 6.3 - 7.9 g/dL 05/21/2025 3:51 AM EST [facility] Albumin, Plasma 2.3(L) 3.5 - 5.2 g/dL 05/21/2025 3:51 AM EST [facility] AST, Plasma 12 10 - 35 U/L 05/21/2025 3:51 AM EST [facility] ALT, Plasma 8(L) 10 - 35 U/L 05/21/2025 3:51 AM EST [facility] Alkaline Phosphatase, Plasma 80 46 - 142 U/L 05/21/2025 3:51 AM EST [facility] Total Bilirubin, Plasma 0.5 0.2 - 1.1 mg/dL 05/21/2025 3:51 AM EST [facility] eGFRcr 95.7 mL/min/1.7 3m*2 05/21/2025 3:51 AM EST [facility] Comment:Reported eGFRcr in m L/min/1.73m2 is based the CKD-EPI 2020 equation that does not use a race coefficient. Blood Venous blood specimen / Unknown Venipuncture / Unknown 05/21/2025 3:15 AM EST 05/21/2025 3:23 AM EST us Lokesh Anderson MD LAB BLOOD ORDERABLES Final Resul t Performing Organization Address City/[facility] Co de Phone Number [facility] [address] [place] [address] * Phosphorus, Plasma (05/21/2025 3:15 AM EST) Phosphorus, Plasma 3.3 2.5 - 4.5 mg/dL 05/21/2025 3:51 AM EST [facility] Blood Venous blood specimen / Unknown Venipuncture / Unknown 05/21/2025 3:15 AM EST 05/21/2025 3:23 AM EST us Lokesh Anderson MD LAB BLOOD ORDERABLES Final Resul t [facility] [address] [place] [address] * Magnesium, Plasma (05/21/2025 3:15 AM EST) Magnesium, Plasma 1.9 1.9 - 2.4 mg/dL 05/21/2025 3:51 AM EST [facility] Blood Venous blood specimen / Unknown Venipuncture / Unknown 05/21/2025 3:15 AM EST 05/21/2025 3:23 AM EST us Lokesh Anderson MD LAB BLOOD ORDERABLES Final Resul t [facility] [address] [place] [address] * (ABNORMAL) CBC W/O Differential (05/21/2025 3:15 AM EST) WBC Count 18.72(H) 3.70 - 10.30 10*3/uL LAB HEMATOLOGY METHOD 05/21/2025 3:32 AM EST [facility] RBC Count 3.90 3.90 - 5.20 10*6/uL LAB HEMATOLOGY METHOD 05/21/2025 3:32 AM EST [facility] HGB 11.6 11.2 - 15.7 g/dL LAB HEMATOLOGY METHOD 05/21/2025 3:32 AM EST [facility] HCT 34.3 34.0 - 45.0 % LAB HEMATOLOGY METHOD 05/21/2025 3:32 AM EST [facility] Platelet Count 419(H) 155 - 369 10*3/uL LAB HEMATOLOGY METHOD 05/21/2025 3:32 AM EST [facility] MCV 88 79 - 98 fL LAB HEMATOLOGY METHOD 05/21/2025 3:32 AM EST [facility] MCH 29.7 26.0 - 32.0 pg LAB HEMATOLOGY METHOD 05/21/2025 3:32 AM EST [facility] MCHC 33.8 30.7 - 35.5 g/dL LAB HEMATOLOGY METHOD 05/21/2025 3:32 AM EST [facility] RDW 16.7(H) 11.5 - 14.5 % LAB HEMATOLOGY METHOD 05/21/2025 3:32 AM EST [facility] MPV 9.7 8.8 - 12.5 fL LAB HEMATOLOGY METHOD 05/21/2025 3:32 AM EST [facility] nRBC 0.0 <=0.0 per 100 WBCs LAB HEMATOLOGY METHOD 05/21/2025 3:32 AM EST [facility] Blood Venous blood specimen / Unknown Venipuncture / Unknown 05/21/2025 3:15 AM EST 05/21/2025 3:23 AM EST us Lokesh Anderson MD LAB BLOOD ORDERABLES Final Resul t [facility] [address] [place] [address] * (ABNORMAL) POCT glucose meter (05/20/2025 11:33 PM EST) POCT Glucose 198(H) 74 - 99 mg/dL 05/20/2025 11:35 PM EST [facility] Comment:Accuracy of a glucos e [...] for testing. Comment 05/20/2025 11:35 PM EST [facility] Customs Examiner ID David Serrano [id number] 11:35 PM EST [facility] Device ID [id number] 05/20/2025 11:35 PM EST [facility] Specimen Type POC Capillary 05/20/2025 11:35 PM EST [facility] Blood Capillary blood specimen / Unknown 05/20/2025 11:33 PM EST 05/20/2025 11:35 PM EST us Lokesh Anderson MD LAB POINT OF CARE TE ST DOCKED DEVICE UNSOLICITED RESULTS Final Result Performing Organization Address City/[facility]/ZIP Co de Phone Number [facility] [address] [place] [address] * (ABNORMAL) POCT glucose meter (05/20/2025 8:52 PM EST) POCT Glucose 171(H) 74 - 99 mg/dL 05/20/2025 8:54 PM EST [facility] Comment:Accuracy of a [...] 05/20/2025 8:54 PM EST [facility] Customs Examiner ID David Serrano [id number] 8:54 PM EST [facility] Device ID [id number] 05/20/2025 8:54 PM EST [facility] Specimen Type POC Capillary 05/20/2025 8:54 PM EST [facility] Blood Capillary blood specimen / Unknown 05/20/2025 8:52 PM EST 05/20/2025 8:54 PM EST Lokesh Anderson MD LAB POINT OF CARE TE ST DOCKED DEVICE UNSOLICITED RESULTS Final Result [facility] [address] [place] [address] * CT Abdomen Pelvis w IV Contrast [...] Enriqueta Muñiz MD on 05/20/2025 4:02 PM Lokesh Anderson MD IM CT PROCEDURES Final Result * PICC DOUBLE LUMEN ([employer]) (05/20/2025 9:05 AM EST) Narrative Beth Camacho RN - 05/20/2025 9:05 AM EST Beth Camacho RN 05/20/2025 9:50 AM Insert PICC line Date/Time: 05/20/2025 9:05 AM Performed by: Beth Camacho RN Authorized by: Lokesh Anderson MD [place] Protocol: Verbal consent obtained?: Yes Written consent [...] in right arm again Catheter Lot #: [id number] Catheter operations team leader: FittingRoom Catheter placed: Double lumen Catheter size: 4 [...] 119 <150 mg/dL 05/20/2025 2:45 PM EST [facility] Comment: Triglyceride Reference Range (age >17 years): Desirable: <150 mg/dL Borderline high: 150 to 199 mg/dL High: 200 to 499 mg/dL Very high: >499 mg/dL Increased risk of pancreatitis: >1000 mg/dL Fasting greater than or equal to 12 hours? Unknown 05/20/2025 2:45 PM EST [facility] Blood Venous blood specimen / Unknown Venipuncture / Unknown 05/20/2025 1:32 AM EST 05/20/2025 1:39 AM EST Katlyn Hopkins MOBILE ARCHITECT LAB BLOOD ORDERABLES Final R esult [facility] [address] [place] [address] * (ABNORMAL) Comprehensive Metabolic Panel, Plasma (05/20/2025 1:32 AM EST) Glucose, Plasma 128(H) 74 - 99 mg/dL 05/20/2025 2:07 AM EST [facility] BUN, Plasma 9 8 - 23 mg/dL 05/20/2025 2:07 AM EST [facility] Creatinine, Plasma 0.53(L) 0.60 - 1.10 mg/dL 05/20/2025 2:07 AM EST [facility] BUN/Creatinine Ratio 17 05/20/2025 2:07 AM EST [facility] Sodium, Plasma 136 136 - 145 mmol/L 05/20/2025 2:07 AM EST [facility] Potassium, Plasma 4.6 3.6 - 4.9 mmol/L 05/20/2025 2:07 AM EST [facility] Chloride, Plasma 104 97 - 107 mmol/L 05/20/2025 2:07 AM EST [facility] CO2, Plasma 18(L) 22 - 29 mmol/L 05/20/2025 2:07 AM EST [facility] Anion Gap 14 6 - 16 mmol/L 05/20/2025 2:07 AM EST [facility] Total Calcium, Plasma 8.0(L) 8.9 - 10.2 mg/dL 05/20/2025 2:07 AM EST [facility] Total Protein 6.7 6.3 - 7.9 g/dL 05/20/2025 2:07 AM EST [facility] Albumin, Plasma 2.7(L) 3.5 - 5.2 g/dL 05/20/2025 2:07 AM EST [facility] AST, Plasma 21 10 - 35 U/L 05/20/2025 2:07 AM EST [facility] Comment:Hemolyzed, result ma y be falsely increased. ALT, Plasma 11 10 - 35 U/L 05/20/2025 2:07 AM EST [facility] Alkaline Phosphatase, Plasma 94 46 - 142 U/L 05/20/2025 2:07 AM EST [facility] Total Bilirubin, Plasma 0.5 0.2 - 1.1 mg/dL 05/20/2025 2:07 AM EST [facility] eGFRcr 99.0 mL/min/1.7 3m*2 05/20/2025 2:07 AM EST [facility] Comment:Reported eGFRcr in m L/min/1.73m2 is based the CKD-EPI 2020 equation that does not use a race coefficient. Blood Venous blood specimen / Unknown Venipuncture / Unknown 05/20/2025 1:32 AM EST 05/20/2025 1:39 AM EST Result Jayden Anderson MD LAB BLOOD ORDERABLES Final Resul t Performing Organization Address City/[facility] Co de Phone Number [facility] [address] [place] [address] * Phosphorus, Plasma (05/20/2025 1:32 AM EST) Phosphorus, Plasma 3.2 2.5 - 4.5 mg/dL 05/20/2025 2:07 AM EST [facility] Blood Venous blood specimen / Unknown Venipuncture / Unknown 05/20/2025 1:32 AM EST 05/20/2025 1:39 AM EST Result Jayden Anderson MD LAB BLOOD ORDERABLES Final Resul t Performing Organization Address City/[facility]/ZIP Co de Phone Number [facility] [address] [place] [address] * Magnesium, Plasma (05/20/2025 1:32 AM EST) Magnesium, Plasma 2.0 1.9 - 2.4 mg/dL 05/20/2025 2:07 AM EST [facility] Blood Venous blood specimen / Unknown Venipuncture / Unknown 05/20/2025 1:32 AM EST 05/20/2025 1:39 AM EST Result Jayden Anderson MD LAB BLOOD ORDERABLES Final Resul t [facility] [address] [place] [address] * (ABNORMAL) CBC W/O Differential (05/20/2025 1:32 AM EST) WBC Count 18.96(H) 3.70 - 10.30 10*3/uL LAB HEMATOLOGY METHOD 05/20/2025 1:49 AM EST [facility] RBC Count 4.53 3.90 - 5.20 10*6/uL LAB HEMATOLOGY METHOD 05/20/2025 1:49 AM EST [facility] HGB 13.1 11.2 - 15.7 g/dL LAB HEMATOLOGY METHOD 05/20/2025 1:49 AM EST [facility] HCT 39.1 34.0 - 45.0 % LAB HEMATOLOGY METHOD 05/20/2025 1:49 AM EST [facility] Platelet Count 479(H) 155 - 369 10*3/uL LAB HEMATOLOGY METHOD 05/20/2025 1:49 AM EST [facility] MCV 86 79 - 98 fL LAB HEMATOLOGY METHOD 05/20/2025 1:49 AM EST [facility] MCH 28.9 26.0 - 32.0 pg LAB HEMATOLOGY METHOD 05/20/2025 1:49 AM EST [facility] MCHC 33.5 30.7 - 35.5 g/dL LAB HEMATOLOGY METHOD 05/20/2025 1:49 AM EST [facility] RDW 16.4(H) 11.5 - 14.5 % LAB HEMATOLOGY METHOD 05/20/2025 1:49 AM EST [facility] MPV 10.0 8.8 - 12.5 fL LAB HEMATOLOGY METHOD 05/20/2025 1:49 AM EST [facility] nRBC 0.0 <=0.0 per 100 WBCs LAB HEMATOLOGY METHOD 05/20/2025 1:49 AM EST [facility] Blood Venous blood specimen / Unknown Venipuncture / Unknown 05/20/2025 1:32 AM EST 05/20/2025 1:39 AM EST Lokesh Anderson MD LAB BLOOD ORDERABLES Final Resul t [facility] [address] [place] [address] * ECG Adult (05/19/2025 7:40 PM EST) EKG DIAGNOSIS CLASS Abnormal MUSE ECG Ventricular Rate 92 BPM MUSE ECG Atrial Rate 92 BPM MUSE ECG [place] Interval 124 ms MUSE ECG QRSD Interval 80 ms MUSE ECG QT Interval 344 ms MUSE ECG QTC Interval 425 ms MUSE ECG P [place] 53 degrees MUSE ECG R [place] -21 degrees MUSE ECG T Wave [place] 50 degrees MUSE ECG Diagnosis Normal sinus rhythm MUSE ECG Diagnosis Leftward axis MUSE ECG Diagnosis Poor R-wave progression Cannot rule out Anterior infarct , age undetermined MUSE ECG Diagnosis Abnormal ECG MUSE ECG Diagnosis Need clinical information and correlation MUSE ECG Diagnosis MUSE ECG Diagnosis Confirmed by Sampson Reza ([id number]) on 05/19/2025 8:42:58 PM MUSE ECG 05/19/2025 7:40 PM EST 05/19/2025 8:42 PM EST us Lokesh Anderson MD ECG ORDERABLES Final Result Performing Organization Address City/[facility]/ZIP Co de Phone Number MUSE ECG * Troponin T, High Sensitivity, 2 Hour, Plasma (05/19/2025 10:59 AM EST) Troponin T, High Sensitivity, 2 Hour 9 <14 ng/L 05/19/2025 11:37 AM EST [facility] Blood Venous blood specimen / Unknown Venipuncture / Unknown 05/19/2025 10:59 AM EST 05/19/2025 11:09 AM EST us Conrado Park APRN LAB BLOOD ORDERABLES Final Re sult [facility] [address] [place] [address] * Troponin T, High Sensitivity, 0 Hour Plasma, Reflex to 2 Hour (05/19/2025 8:12 AM EST) Troponin T, High Sensitivity, 0 Hour 7 <14 ng/L 05/19/2025 8:50 AM EST [facility] Blood Venous blood specimen / Unknown Venipuncture / Unknown 05/19/2025 8:12 AM EST 05/19/2025 8:19 AM EST us Conrado Park APRN LAB BLOOD ORDERABLES Final Re sult [facility] [address] [place] [address] * ECG Adult (05/19/2025 7:59 AM EST) EKG DIAGNOSIS CLASS Abnormal MUSE ECG Ventricular Rate 72 BPM MUSE ECG Atrial Rate 72 BPM MUSE ECG [place] Interval 146 ms MUSE ECG QRSD Interval 90 ms MUSE ECG QT Interval 430 ms MUSE ECG QTC Interval 470 ms MUSE ECG P [place] 32 degrees MUSE ECG R [place] -20 degrees MUSE ECG T Wave [place] 29 degrees MUSE ECG Diagnosis Sinus rhythm [...] 7:59 AM EST 05/19/2025 4:32 PM EST us Conrado Park MOBILE ARCHITECT ECG ORDERABLES Final Result Performing Organization Address City/[facility] Co de Phone Number MUSE ECG * (ABNORMAL) Comprehensive Metabolic Panel, Plasma (05/19/2025 4:22 AM EST) Glucose, Plasma 132(H) 74 - 99 mg/dL 05/19/2025 5:01 AM EST [facility] BUN, Plasma 8 8 - 23 mg/dL 05/19/2025 5:01 AM EST [facility] Creatinine, Plasma 0.47(L) 0.60 - 1.10 mg/dL 05/19/2025 5:01 AM EST [facility] BUN/Creatinine Ratio 17 05/19/2025 5:01 AM EST [facility] Sodium, Plasma 136 136 - 145 mmol/L 05/19/2025 5:01 AM EST [facility] Potassium, Plasma 3.5(L) 3.6 - 4.9 mmol/L 05/19/2025 5:01 AM EST [facility] Chloride, Plasma 106 97 - 107 mmol/L 05/19/2025 5:01 AM [facility] CO2, Plasma 21(L) 22 - 29 mmol/L 05/19/2025 5:01 AM EST [facility] Anion Gap 9 6 - 16 mmol/L 05/19/2025 5:01 AM EST [facility] Total Calcium, Plasma 7.9(L) 8.9 - 10.2 mg/dL 05/19/2025 5:01 AM [facility] Total Protein 6.4 6.3 - 7.9 g/dL 05/19/2025 5:01 AM [facility] Albumin, Plasma 2.4(L) 3.5 - 5.2 g/dL 05/19/2025 5:01 AM EST [facility] AST, Plasma 27 10 - 35 U/L 05/19/2025 5:01 AM [facility] ALT, Plasma 14 10 - 35 U/L 05/19/2025 5:01 AM [facility] Alkaline Phosphatase, Plasma 92 46 - 142 U/L 05/19/2025 5:01 AM [facility] Total Bilirubin, Plasma 0.3 0.2 - 1.1 mg/dL 05/19/2025 5:01 AM [facility] eGFRcr 101.9 mL/min/1.7 3m*2 05/19/2025 5:01 AM [facility] Comment:Reported eGFRcr in m L/min/1.73m2 is based the CKD-EPI 2020 equation that does not use a race coefficient. Blood Venous blood specimen / Unknown Venipuncture / Unknown 05/19/2025 4:22 AM EST 05/19/2025 4:33 AM EST us Lokesh Anderson MD LAB BLOOD ORDERABLES Final Resul t [facility] [address] [place] [address] * Phosphorus, Plasma (05/19/2025 4:22 AM EST) Phosphorus, Plasma 2.6 2.5 - 4.5 mg/dL 05/19/2025 5:01 AM EST [facility] Blood Venous blood specimen / Unknown Venipuncture / Unknown 05/19/2025 4:22 AM EST 05/19/2025 4:33 AM EST us Lokesh Anderson MD LAB BLOOD ORDERABLES Final Resul t Performing Organization Address City/[facility]/ZIP Co de Phone Number [facility] [address] [place] [address] * (ABNORMAL) Magnesium, Plasma (05/19/2025 4:22 AM EST) Magnesium, Plasma 1.7(L) 1.9 - 2.4 mg/dL 05/19/2025 5:01 AM EST [facility] Blood Venous blood specimen / Unknown Venipuncture / Unknown 05/19/2025 4:22 AM EST 05/19/2025 4:33 AM EST us Lokesh Anderson MD LAB BLOOD ORDERABLES Final Resul t Performing Organization Address City/[facility]/ZIP Co de Phone Number [facility] [address] [place] [address] * (ABNORMAL) CBC W/O Differential (05/19/2025 4:22 AM EST) WBC Count 10.29 3.70 - 10.30 10*3/uL LAB HEMATOLOGY METHOD 05/19/2025 4:48 AM EST [facility] RBC Count 3.85(L) 3.90 - 5.20 10*6/uL LAB HEMATOLOGY METHOD 05/19/2025 4:48 AM EST [facility] HGB 11.3 11.2 - 15.7 g/dL LAB HEMATOLOGY METHOD 05/19/2025 4:48 AM EST [facility] HCT 33.6(L) 34.0 - 45.0 % LAB HEMATOLOGY METHOD 05/19/2025 4:48 AM EST [facility] Platelet Count 380(H) 155 - 369 10*3/uL LAB HEMATOLOGY METHOD 05/19/2025 4:48 AM EST [facility] MCV 87 79 - 98 fL LAB HEMATOLOGY METHOD 05/19/2025 4:48 AM EST [facility] MCH 29.4 26.0 - 32.0 pg LAB HEMATOLOGY METHOD 05/19/2025 4:48 AM EST [facility] MCHC 33.6 30.7 - 35.5 g/dL LAB HEMATOLOGY METHOD 05/19/2025 4:48 AM EST [facility] RDW 15.9(H) 11.5 - 14.5 % LAB HEMATOLOGY METHOD 05/19/2025 4:48 AM EST [facility] MPV 9.9 8.8 - 12.5 fL LAB HEMATOLOGY METHOD 05/19/2025 4:48 AM EST [facility] nRBC 0.0 <=0.0 per 100 WBCs LAB HEMATOLOGY METHOD 05/19/2025 4:48 AM EST [facility] Blood Venous blood specimen / Unknown Venipuncture / Unknown 05/19/2025 4:22 AM EST 05/19/2025 4:35 AM EST us Lokesh Anderson MD LAB BLOOD ORDERABLES Final Resul t [facility] [address] [place] [address] * (ABNORMAL) Comprehensive Metabolic Panel, Plasma (05/18/2025 4:33 AM EST) Glucose, Plasma 134(H) 74 - 99 mg/dL 05/18/2025 5:13 AM EST [facility] BUN, Plasma 6(L) 8 - 23 mg/dL 05/18/2025 5:13 AM EST [facility] Creatinine, Plasma 0.54(L) 0.60 - 1.10 mg/dL 05/18/2025 5:13 AM EST [facility] BUN/Creatinine Ratio 11 05/18/2025 5:13 AM EST [facility] Sodium, Plasma 139 136 - 145 mmol/L 05/18/2025 5:13 AM EST [facility] Potassium, Plasma 3.9 3.6 - 4.9 mmol/L 05/18/2025 5:13 AM EST [facility] Chloride, Plasma 108(H) 97 - 107 mmol/L 05/18/2025 5:13 AM EST [facility] CO2, Plasma 21(L) 22 - 29 mmol/L 05/18/2025 5:13 AM EST [facility] Anion Gap 10 6 - 16 mmol/L 05/18/2025 5:13 AM EST [facility] Total Calcium, Plasma 7.8(L) 8.9 - 10.2 mg/dL 05/18/2025 5:13 AM EST [facility] Total Protein 6.1(L) 6.3 - 7.9 g/dL 05/18/2025 5:13 AM EST [facility] Albumin, Plasma 2.4(L) 3.5 - 5.2 g/dL 05/18/2025 5:13 AM EST [facility] AST, Plasma 33 10 - 35 U/L 05/18/2025 5:13 AM EST [facility] ALT, Plasma 13 10 - 35 U/L 05/18/2025 5:13 AM EST [facility] Alkaline Phosphatase, Plasma 97 46 - 142 U/L 05/18/2025 5:13 AM EST [facility] Total Bilirubin, Plasma 0.4 0.2 - 1.1 mg/dL 05/18/2025 5:13 AM EST [facility] eGFRcr 98.6 mL/min/1.7 3m*2 05/18/2025 5:13 AM EST [facility] Comment:Reported eGFRcr in m L/min/1.73m2 is based the CKD-EPI 2020 equation that does not use a race coefficient. Blood Venous blood specimen / Unknown Venipuncture / Unknown 05/18/2025 4:33 AM EST 05/18/2025 4:43 AM EST us Lokesh Anderson MD LAB BLOOD ORDERABLES Final Resul t [facility] [address] [place] [address] * Phosphorus, Plasma (05/18/2025 4:33 AM EST) Phosphorus, Plasma 2.5 2.5 - 4.5 mg/dL 05/18/2025 5:13 AM EST [facility] Blood Venous blood specimen / Unknown Venipuncture / Unknown 05/18/2025 4:33 AM EST 05/18/2025 4:43 AM EST us Lokesh Anderson MD LAB BLOOD ORDERABLES Final Resul t Performing Organization Address City/[facility]/ZIP Co de Phone Number [facility] [address] [place] [address] * Magnesium, Plasma (05/18/2025 4:33 AM EST) Pathologist [facility] Magnesium, Plasma 2.1 1.9 - 2.4 mg/dL 05/18/2025 5:13 AM EST [facility] Blood Venous blood specimen / Unknown Venipuncture / Unknown 05/18/2025 4:33 AM EST 05/18/2025 4:43 AM EST us Lokesh Anderson MD LAB BLOOD ORDERABLES Final Resul t Performing Organization Address City/[facility] Co de Phone Number [facility] [address] [place] [address] * (ABNORMAL) CBC W/O Differential (05/18/2025 4:33 AM EST) Pathologist [facility] WBC Count 9.04 3.70 - 10.30 10*3/uL LAB HEMATOLOGY METHOD 05/18/2025 4:52 AM EST [facility] RBC Count 3.72(L) 3.90 - 5.20 10*6/uL LAB HEMATOLOGY METHOD 05/18/2025 4:52 AM EST [facility] HGB 10.9(L) 11.2 - 15.7 g/dL LAB HEMATOLOGY METHOD 05/18/2025 4:52 AM EST [facility] HCT 32.1(L) 34.0 - 45.0 % LAB HEMATOLOGY METHOD 05/18/2025 4:52 AM EST [facility] Platelet Count 355 155 - 369 10*3/uL LAB HEMATOLOGY METHOD 05/18/2025 4:52 AM EST [facility] MCV 86 79 - 98 fL LAB HEMATOLOGY METHOD 05/18/2025 4:52 AM EST [facility] MCH 29.3 26.0 - 32.0 pg LAB HEMATOLOGY METHOD 05/18/2025 4:52 AM EST [facility] MCHC 34.0 30.7 - 35.5 g/dL LAB HEMATOLOGY METHOD 05/18/2025 4:52 AM EST [facility] RDW 15.8(H) 11.5 - 14.5 % LAB HEMATOLOGY METHOD 05/18/2025 4:52 AM EST [facility] MPV 10.2 8.8 - 12.5 fL LAB HEMATOLOGY METHOD 05/18/2025 4:52 AM EST [facility] nRBC 0.0 <=0.0 per 100 WBCs LAB HEMATOLOGY METHOD 05/18/2025 4:52 AM EST [facility] Blood Venous blood specimen / Unknown Venipuncture / Unknown 05/18/2025 4:33 AM EST 05/18/2025 4:43 AM EST us Lokesh Anderson MD LAB BLOOD ORDERABLES Final Resul t [facility] [address] [place] [address] * CT Abdomen Pelvis w IV Contrast [...] - 99 mg/dL 05/17/2025 12:49 AM EST [facility] BUN, Plasma 8 8 - 23 mg/dL 05/17/2025 12:49 AM EST [facility] Creatinine, Plasma 0.54(L) 0.60 - 1.10 mg/dL 05/17/2025 12:49 AM EST [facility] BUN/Creatinine Ratio 15 05/17/2025 12:49 AM EST [facility] Sodium, Plasma 139 136 - 145 mmol/L 05/17/2025 12:49 AM EST [facility] Potassium, Plasma 3.7 3.6 - 4.9 mmol/L 05/17/2025 12:49 AM EST [facility] Chloride, Plasma 106 97 - 107 mmol/L 05/17/2025 12:49 AM EST [facility] CO2, Plasma 21(L) 22 - 29 mmol/L 05/17/2025 12:49 AM EST [facility] Anion Gap 12 6 - 16 mmol/L 05/17/2025 12:49 AM EST [facility] Total Calcium, Plasma 7.7(L) 8.9 - 10.2 mg/dL 05/17/2025 12:49 AM EST [facility] Total Protein 5.8(L) 6.3 - 7.9 g/dL 05/17/2025 12:49 AM EST [facility] Albumin, Plasma 2.3(L) 3.5 - 5.2 g/dL 05/17/2025 12:49 AM EST [facility] AST, Plasma 25 10 - 35 U/L 05/17/2025 12:49 AM EST [facility] ALT, Plasma 10 10 - 35 U/L 05/17/2025 12:49 AM EST [facility] Alkaline Phosphatase, Plasma 100 46 - 142 U/L 05/17/2025 12:49 AM EST [facility] Total Bilirubin, Plasma 0.4 0.2 - 1.1 mg/dL 05/17/2025 12:49 AM EST [facility] eGFRcr 98.6 mL/min/1.7 3m*2 05/17/2025 12:49 AM EST [facility] Comment:Reported eGFRcr in m L/min/1.73m2 is based the CKD-EPI 2020 equation that does not use a race coefficient. Blood Venous blood specimen / Unknown Venipuncture / Unknown 05/17/2025 12:03 AM EST 05/17/2025 12:17 AM EST Lokesh Anderson MD LAB BLOOD ORDERABLES Final Resul t [facility] [address] [place] [address] * Phosphorus, Plasma (05/17/2025 12:03 AM EST) Phosphorus, Plasma 3.4 2.5 - 4.5 mg/dL 05/17/2025 12:49 AM EST [facility] Blood Venous blood specimen / Unknown Venipuncture / Unknown 05/17/2025 12:03 AM EST 05/17/2025 12:17 AM EST us Lokesh Monica MD LAB BLOOD ORDERABLES Final Resul t [facility] [address] [place] [address] * (ABNORMAL) Magnesium, Plasma (05/17/2025 12:03 AM EST) Magnesium, Plasma 1.7(L) 1.9 - 2.4 mg/dL 05/17/2025 12:49 AM EST [facility] Blood Venous blood specimen / Unknown Venipuncture / Unknown 05/17/2025 12:03 AM EST 05/17/2025 12:17 AM EST us Lokesh Anderson MD LAB BLOOD ORDERABLES Final Resul t Performing Organization Address City/[facility]/ZIP Co de Phone Number [facility] [address] [place] [address] * (ABNORMAL) CBC W/O Differential (05/17/2025 12:03 AM EST) WBC Count 10.73(H) 3.70 - 10.30 10*3/uL LAB HEMATOLOGY METHOD 05/17/2025 12:28 AM EST [facility] RBC Count 3.84(L) 3.90 - 5.20 10*6/uL LAB HEMATOLOGY METHOD 05/17/2025 12:28 AM EST [facility] HGB 11.2 11.2 - 15.7 g/dL LAB HEMATOLOGY METHOD 05/17/2025 12:28 AM EST [facility] HCT 33.3(L) 34.0 - 45.0 % LAB HEMATOLOGY METHOD 05/17/2025 12:28 AM EST [facility] Platelet Count 329 155 - 369 10*3/uL LAB HEMATOLOGY METHOD 05/17/2025 12:28 AM EST [facility] MCV 87 79 - 98 fL LAB HEMATOLOGY METHOD 05/17/2025 12:28 AM EST [facility] MCH 29.2 26.0 - 32.0 pg LAB HEMATOLOGY METHOD 05/17/2025 12:28 AM EST [facility] MCHC 33.6 30.7 - 35.5 g/dL LAB HEMATOLOGY METHOD 05/17/2025 12:28 AM EST [facility] RDW 15.5(H) 11.5 - 14.5 % LAB HEMATOLOGY METHOD 05/17/2025 12:28 AM EST [facility] MPV 10.5 8.8 - 12.5 fL LAB HEMATOLOGY METHOD 05/17/2025 12:28 AM EST [facility] nRBC 0.0 <=0.0 per 100 WBCs LAB HEMATOLOGY METHOD 05/17/2025 12:28 AM EST [facility] Blood Venous blood specimen / Unknown Venipuncture / Unknown 05/17/2025 12:03 AM EST 05/17/2025 12:18 AM EST us Lokesh Anderson MD LAB BLOOD ORDERABLES Final Resul t [facility] [address] [place] [address] * (ABNORMAL) Prealbumin (05/16/2025 12:20 AM EST) Prealbumin, Plasma 3.3(L) 20.0 - 41.0 mg/dL 05/16/2025 5:39 PM EST [facility] Blood Venous blood specimen / Unknown Venipuncture / Unknown 05/16/2025 12:20 AM EST 05/16/2025 12:30 AM EST us Lokesh Anderson MD LAB BLOOD ORDERABLES Final Resul t [facility] [address] [place] [address] * (ABNORMAL) Comprehensive Metabolic Panel, Plasma (05/16/2025 12:20 AM EST) Glucose, Plasma 110(H) 74 - 99 mg/dL 05/16/2025 12:58 AM EST [facility] BUN, Plasma 11 8 - 23 mg/dL 05/16/2025 12:58 AM EST [facility] Creatinine, Plasma 0.55(L) 0.60 - 1.10 mg/dL 05/16/2025 12:58 AM EST [facility] BUN/Creatinine Ratio 20 05/16/2025 12:58 AM EST [facility] Sodium, Plasma 137 136 - 145 mmol/L 05/16/2025 12:58 AM EST [facility] Potassium, Plasma 3.2(L) 3.6 - 4.9 mmol/L 05/16/2025 12:58 AM EST [facility] Chloride, Plasma 104 97 - 107 mmol/L 05/16/2025 12:58 AM EST [facility] CO2, Plasma 25 22 - 29 mmol/L 05/16/2025 12:58 AM EST [facility] Anion Gap 8 6 - 16 mmol/L 05/16/2025 12:58 AM EST [facility] Total Calcium, Plasma 7.7(L) 8.9 - 10.2 mg/dL 05/16/2025 12:58 AM EST [facility] Total Protein 5.9(L) 6.3 - 7.9 g/dL 05/16/2025 12:58 AM EST [facility] Albumin, Plasma 2.4(L) 3.5 - 5.2 g/dL 05/16/2025 12:58 AM EST [facility] AST, Plasma 30 10 - 35 U/L 05/16/2025 12:58 AM EST [facility] ALT, Plasma 16 10 - 35 U/L 05/16/2025 12:58 AM EST [facility] Alkaline Phosphatase, Plasma 106 46 - 142 U/L 05/16/2025 12:58 AM EST [facility] Total Bilirubin, Plasma 0.5 0.2 - 1.1 mg/dL 05/16/2025 12:58 AM EST [facility] eGFRcr 98.1 mL/min/1.7 3m*2 05/16/2025 12:58 AM EST [facility] Comment:Reported eGFRcr in m L/min/1.73m2 is based the CKD-EPI 2020 equation that does not use a race coefficient. Blood Venous blood specimen / Unknown Venipuncture / Unknown 05/16/2025 12:20 AM EST 05/16/2025 12:30 AM EST us Lokesh Anderson MD LAB BLOOD ORDERABLES Final Resul t [facility] [address] [place] [address] * (ABNORMAL) Phosphorus, Plasma (05/16/2025 12:20 AM EST) Phosphorus, Plasma 1.8(L) 2.5 - 4.5 mg/dL 05/16/2025 12:58 AM EST [facility] Blood Venous blood specimen / Unknown Venipuncture / Unknown 05/16/2025 12:20 AM EST 05/16/2025 12:30 AM EST us Lokesh Anderson MD LAB BLOOD ORDERABLES Final Resul t Performing Organization Address City/[facility]/ZIP Co de Phone Number [facility] [address] [place] [address] * Magnesium, Plasma (05/16/2025 12:20 AM EST) Magnesium, Plasma 2.0 1.9 - 2.4 mg/dL 05/16/2025 12:58 AM EST [facility] Blood Venous blood specimen / Unknown Venipuncture / Unknown 05/16/2025 12:20 AM EST 05/16/2025 12:30 AM EST us Lokesh Anderson MD LAB BLOOD ORDERABLES Final Resul t Performing Organization Address City/[facility]/ZIP Co de Phone Number [facility] [address] [place] [address] * (ABNORMAL) CBC W/O Differential (05/16/2025 12:20 AM EST) WBC Count 14.66(H) 3.70 - 10.30 10*3/uL LAB HEMATOLOGY METHOD 05/16/2025 12:39 AM EST [facility] RBC Count 3.81(L) 3.90 - 5.20 10*6/uL LAB HEMATOLOGY METHOD 05/16/2025 12:39 AM EST [facility] HGB 11.0(L) 11.2 - 15.7 g/dL LAB HEMATOLOGY METHOD 05/16/2025 12:39 AM EST [facility] HCT 33.1(L) 34.0 - 45.0 % LAB HEMATOLOGY METHOD 05/16/2025 12:39 AM EST [facility] Platelet Count 301 155 - 369 10*3/uL LAB HEMATOLOGY METHOD 05/16/2025 12:39 AM EST [facility] MCV 87 79 - 98 fL LAB HEMATOLOGY METHOD 05/16/2025 12:39 AM EST [facility] MCH 28.9 26.0 - 32.0 pg LAB HEMATOLOGY METHOD 05/16/2025 12:39 AM EST [facility] MCHC 33.2 30.7 - 35.5 g/dL LAB HEMATOLOGY METHOD 05/16/2025 12:39 AM EST [facility] RDW 15.3(H) 11.5 - 14.5 % LAB HEMATOLOGY METHOD 05/16/2025 12:39 AM EST [facility] MPV 10.4 8.8 - 12.5 fL LAB HEMATOLOGY METHOD 05/16/2025 12:39 AM EST [facility] nRBC 0.0 <=0.0 per 100 WBCs LAB HEMATOLOGY METHOD 05/16/2025 12:39 AM EST [facility] Blood Venous blood specimen / Unknown Venipuncture / Unknown 05/16/2025 12:20 AM EST 05/16/2025 12:32 AM EST Lokesh Anderson MD LAB BLOOD ORDERABLES Final Resul t [facility] [address] [place] [address] * (ABNORMAL) Comprehensive Metabolic Panel, Plasma (05/15/2025 2:18 AM EST) Glucose, Plasma 160(H) 74 - 99 mg/dL 05/15/2025 2:55 AM EST [facility] BUN, Plasma 12 8 - 23 mg/dL 05/15/2025 2:55 AM EST [facility] Creatinine, Plasma 0.72 0.60 - 1.10 mg/dL 05/15/2025 2:55 AM EST [facility] BUN/Creatinine Ratio 17 05/15/2025 2:55 AM EST [facility] Sodium, Plasma 136 136 - 145 mmol/L 05/15/2025 2:55 AM EST [facility] Potassium, Plasma 3.2(L) 3.6 - 4.9 mmol/L 05/15/2025 2:55 AM EST [facility] Chloride, Plasma 102 97 - 107 mmol/L 05/15/2025 2:55 AM EST [facility] CO2, Plasma 24 22 - 29 mmol/L 05/15/2025 2:55 AM EST [facility] Anion Gap 10 6 - 16 mmol/L 05/15/2025 2:55 AM EST [facility] Total Calcium, Plasma 8.0(L) 8.9 - 10.2 mg/dL 05/15/2025 2:55 AM EST [facility] Total Protein 6.0(L) 6.3 - 7.9 g/dL 05/15/2025 2:55 AM EST [facility] Albumin, Plasma 2.5(L) 3.5 - 5.2 g/dL 05/15/2025 2:55 AM EST [facility] AST, Plasma 31 10 - 35 U/L 05/15/2025 2:55 AM EST [facility] ALT, Plasma 18 10 - 35 U/L 05/15/2025 2:55 AM EST [facility] Alkaline Phosphatase, Plasma 102 46 - 142 U/L 05/15/2025 2:55 AM EST [facility] Total Bilirubin, Plasma 0.7 0.2 - 1.1 mg/dL 05/15/2025 2:55 AM EST [facility] eGFRcr 89.5 mL/min/1.7 3m*2 05/15/2025 2:55 AM EST [facility] Comment:Reported eGFRcr in m L/min/1.73m2 is based the CKD-EPI 2020 equation that does not use a race coefficient. Blood Venous blood specimen / Unknown Venipuncture / Unknown 05/15/2025 2:18 AM EST 05/15/2025 2:27 AM EST us Conrado Park APRN LAB BLOOD ORDERABLES Final Re sult [facility] [address] [place] [address] * (ABNORMAL) Magnesium, Plasma (05/15/2025 2:18 AM EST) Magnesium, Plasma 1.4(L) 1.9 - 2.4 mg/dL 05/15/2025 2:55 AM EST [facility] Blood Venous blood specimen / Unknown Venipuncture / Unknown 05/15/2025 2:18 AM EST 05/15/2025 2:27 AM EST us Conradojohn paul [place] [employer] LAB BLOOD ORDERABLES Final Re sult [facility] [address] [place] [address] * Phosphorus, Plasma (05/15/2025 2:18 AM EST) Phosphorus, Plasma 3.3 2.5 - 4.5 mg/dL 05/15/2025 2:55 AM EST [facility] Blood Venous blood specimen / Unknown Venipuncture / Unknown 05/15/2025 2:18 AM EST 05/15/2025 2:27 AM EST us Conrado G Vivian HILTON LAB BLOOD ORDERABLES Final Re sult Performing Organization Address City/[facility]/ZIP Co de Phone Number [facility] [address] [place] [address] * (ABNORMAL) CBC W/O Differential (05/15/2025 2:18 AM EST) WBC Count 18.33(H) 3.70 - 10.30 10*3/uL LAB HEMATOLOGY METHOD 05/15/2025 2:34 AM EST [facility] RBC Count 3.67(L) 3.90 - 5.20 10*6/uL LAB HEMATOLOGY METHOD 05/15/2025 2:34 AM EST [facility] HGB 11.0(L) 11.2 - 15.7 g/dL LAB HEMATOLOGY METHOD 05/15/2025 2:34 AM EST [facility] HCT 32.1(L) 34.0 - 45.0 % LAB HEMATOLOGY METHOD 05/15/2025 2:34 AM EST [facility] Platelet Count 268 155 - 369 10*3/uL LAB HEMATOLOGY METHOD 05/15/2025 2:34 AM EST [facility] MCV 88 79 - 98 fL LAB HEMATOLOGY METHOD 05/15/2025 2:34 AM EST [facility] MCH 30.0 26.0 - 32.0 pg LAB HEMATOLOGY METHOD 05/15/2025 2:34 AM EST [facility] MCHC 34.3 30.7 - 35.5 g/dL LAB HEMATOLOGY METHOD 05/15/2025 2:34 AM EST [facility] RDW 14.9(H) 11.5 - 14.5 % LAB HEMATOLOGY METHOD 05/15/2025 2:34 AM EST [facility] MPV 10.1 8.8 - 12.5 fL LAB HEMATOLOGY METHOD 05/15/2025 2:34 AM EST [facility] nRBC 0.0 <=0.0 per 100 WBCs LAB HEMATOLOGY METHOD 05/15/2025 2:34 AM EST [facility] Blood Venous blood specimen / Unknown Venipuncture / Unknown 05/15/2025 2:18 AM EST 05/15/2025 2:27 AM EST us Conrado Park APRN LAB BLOOD ORDERABLES Final Re sult [facility] [address] [place] [address] * (ABNORMAL) POCT glucose meter (05/14/2025 7:59 PM EST) POCT Glucose 101(H) 74 - 99 mg/dL 05/14/2025 8:02 PM EST [facility] Comment:Accuracy of a glucos e [...] Comment 05/14/2025 8:02 PM EST [facility] Customs Examiner ID Ying Reagan 025 8:02 PM EST [facility] Device ID [id number] 05/14/2025 8:02 PM EST [facility] Specimen Type POC Capillary 05/14/2025 8:02 PM EST [facility] Blood Capillary blood specimen / Unknown 05/14/2025 7:59 PM EST 05/14/2025 8:02 PM EST Lokesh Anderson MD LAB POINT OF CARE TE ST DOCKED DEVICE UNSOLICITED RESULTS Final Result Performing Organization Address City/State/[facility] Co de Phone Number [facility] [address] [place] [address] * CT Guided Drain Placement Peritoneal or [...] pancreatectomy bed presents for drain placement. TECHNIQUE: [employer] Supervisor: Gael Alatorre MD Secondary Customs Examiner: None Rad Dose: 1006 mGy-cm DLP Medications: [...] the pancreatectomy bed presents fordrain placement. TECHNIQUE: [employer] Supervisor: Gael Alatorre MD Secondary Customs Examiner: None Rad Dose: 1006 mGy-cm DLP Medications: [...] Fluid 186 U/L 05/14/2025 10:39 PM EST [facility] Lavage/Dialysis Fluid Drainage fluid specimen / Unknown 05/14/2025 4:47 PM EST 05/14/2025 8:59 PM EST Narrative [facility] - 05/14/2025 10:39 PM EST Reference Values: No established reference interval. Interpret with caution. This test was developed and its performance characteristics determined by [facility]. The U.S. Food and Drug [...] FLUIDS AND STOOLS ORDER FARSHAD Final Result [facility] [address] [place] [address] * (ABNORMAL) Body Fluid Culture and Gram Stain (05/14/2025 4:47 PM EST) Culture Heavy Growth 05/18/2025 2:36 PM EST [facility] Culture 4+ Streptococcus constellatus(A) 05/18/2025 2:36 PM EST [facility] Comment: This isolate has been identified using the FDA Approved [employer] System The organism value for this result has been updated. These results have been appended to the previously preliminary verified report. Edited result: Previously reported as Streptococcus species on 05/15/2025 at 1553 EST. Culture 1+ Haemophilus parainfluenzae(A) 05/18/2025 2:36 PM EST [facility] Comment: This isolate has been identified using the FDA Approved [employer] System The organism value for this result has been updated. These results have been appended to the previously preliminary verified report. Gram Stain Result Numerous Gram positive cocci in pairs and chains(A) 05/18/2025 2:36 PM EST [facility] Gram Stain Result Numerous Gram negative rods(A) 05/18/2025 2:36 PM EST [facility] Gram Stain Result Numerous Polymorphonuclear leukocytes(A) 05/18/2025 2:36 PM EST [facility] Body Fluid Body fluid specimen / Unknown Non-blood Collection / Unknown 05/14/2025 4:47 PM EST 05/14/2025 9:09 PM EST Narrative Organism Antibiotic Method Susceptibility Streptococcus constellatus Penicillin G ETEST 0.094 ug/ml: Susceptible Haemophilus parainfluenzae Beta Lactamase Negative Comment:This organism is pre dictably susceptible to ampicillin or amoxicillin. Conrado Park APRN LAB MICROBIOLOGY - GENERAL OR DERABLES Final Result Performing Organization Address [facility] Co de Phone Number [facility] [address] [place] [address] * Urinalysis Microscopic Examination (05/14/2025 7:38 AM EST) Urine Urine specimen obtained by clean catch procedure / Unknown Non-blood Collection / Unknown 05/14/2025 7:38 AM EST 05/14/2025 7:43 AM EST Zay Sheth MD LAB URINE ORDERABLES Final Resul t Performing Organization Address City/[facility] Co de Phone Number [facility] [address] [place] [address] * (ABNORMAL) Urinalysis with reflex microscopic (Culture NOT Included) (05/14/2025 7:38 AM EST) Color, Urine Dark Yellow LAB URINALYSIS - AUTOMATED METHOD 05/14/2025 8:04 AM [facility] Clarity, Urine Clear LAB URINALYSIS - AUTOMATED METHOD 05/14/2025 8:04 AM [facility] Spec [place], Urine >1.030(H) 1.005 - 1.030 LAB URINALYSIS - AUTOMATED METHOD 05/14/2025 8:04 AM [facility] pH, Urine 6.0 5.0 - 8.0 LAB URINALYSIS - AUTOMATED METHOD 05/14/2025 8:04 AM [facility] Protein, Urine 100(A) Negative mg/dL LAB URINALYSIS - AUTOMATED METHOD 05/14/2025 8:04 AM [facility] Glucose, Urine Negative Negative mg/dL LAB URINALYSIS - AUTOMATED METHOD 05/14/2025 8:04 AM [facility] Ketones, Urine Negative Negative mg/dL LAB URINALYSIS - AUTOMATED METHOD 05/14/2025 8:04 AM [facility] Blood, Urine Moderate(A) Negative LAB URINALYSIS - AUTOMATED METHOD 05/14/2025 8:04 AM [facility] Bilirubin, Urine Negative Negative LAB URINALYSIS - AUTOMATED METHOD 05/14/2025 8:04 AM [facility] Urobilinogen, Urine 1.0 0.2 to 1.0 mg/dL LAB URINALYSIS - AUTOMATED METHOD 05/14/2025 8:04 AM [facility] Leukocytes, Urine Trace(A) Negative LAB URINALYSIS - AUTOMATED METHOD 05/14/2025 8:04 AM [facility] Nitrite, Urine Negative Negative LAB URINALYSIS - AUTOMATED METHOD 05/14/2025 8:04 AM [facility] RBC, Urine 4 - 10(A) 0 to 3 /HPF LAB URINALYSIS - AUTOMATED METHOD 05/14/2025 8:04 AM [facility] Comment:This result was prev iously suppressed from the chart. WBC, Urine 0 - 5 0 to 5 /HPF LAB URINALYSIS - AUTOMATED METHOD 05/14/2025 8:04 AM [facility] Comment:This result was prev iously suppressed from the chart. Squamous Epithelial Cells 6 - 10(A) 0 to 5 /HPF LAB URINALYSIS - AUTOMATED METHOD 05/14/2025 8:04 AM EST [facility] Comment:This result was prev iously suppressed from the chart. Hyaline Casts 0 - 2 0 to 5 /LPF LAB URINALYSIS - AUTOMATED METHOD 05/14/2025 8:04 AM EST [facility] Comment:This result was prev iously suppressed from the chart. Bacteria, Urine Negative Negative LAB URINALYSIS - AUTOMATED METHOD 05/14/2025 8:04 AM EST [facility] Comment:This result was prev iously suppressed from the chart. Urine Urine specimen obtained by clean catch procedure / Unknown Non-blood Collection / Unknown 05/14/2025 7:38 AM EST 05/14/2025 7:43 AM EST us Zay Sheth MD LAB URINE ORDERABLES Final Resul t Performing Organization Address City/[facility]/ZIP Co de Phone Number [facility] [address] [place] [address] * Blood Culture (Aerobic/Anaerobet Set) (05/14/2025 2:32 AM EST) Culture No growth at day 5 05/19/2025 5:51 AM EST [facility] Blood Structure of right wrist region / Unknown Venipuncture / Unknown 05/14/2025 2:32 AM EST 05/14/2025 5:43 AM EST Narrative [facility] - 05/19/2025 5:51 AM EST Low blood volume submitted, results may be compromised us Zay Sheth MD LAB MICROBIOLOGY - GENERAL ORDER FARSHAD Final Result [facility] [address] [place] [address] * Blood Culture (Aerobic/Anaerobet Set) (05/14/2025 2:32 AM EST) Culture No growth at day 5 05/19/2025 6:01 AM EST [facility] Blood Structure of left wrist region / Unknown Venipuncture / Unknown 05/14/2025 2:32 AM EST 05/14/2025 5:44 AM EST Narrative [facility] - 05/19/2025 6:01 AM EST Low blood volume submitted, results may be compromised us Zay Sheth MD LAB MICROBIOLOGY - GENERAL ORDER FARSHAD Final Result [facility] [address] [place] [address] * CT Abdomen Pelvis w IV Contrast [...] thepancreatic bed measuring 2 x 9.5 cm (80). No internal gas. Surroundinghaziness and stranding of [...] HIV 1/2 Differentiation (05/13/2025 6:44 PM EST) Pathologist [facility] HIV 1 & 2 Antibody/Antigen Screen Non Reactive Non Reactive 05/13/2025 8:03 PM EST [facility] Comment:Screening for HIV 1 & 2 antibodies, and P24 antigen is NONREACTIVE. No confirmatory testing is required. Blood Venous blood specimen / Unknown Venipuncture / Unknown 05/13/2025 6:44 PM EST 05/13/2025 7:22 PM EST us Jemal Hargrove MD LAB BLOOD ORDERABLES Final Resul t [facility] [address] [place] [address] * Hepatitis C Antibody - ED (05/13/2025 6:44 PM EST) Hepatitis C Antibody Negative Negative 05/13/2025 9:33 PM EST [facility] Blood Venous blood specimen / Unknown Venipuncture / Unknown 05/13/2025 6:44 PM EST 05/13/2025 7:21 PM EST us Jemal Hargrove MD LAB BLOOD ORDERABLES Final Resul t [facility] [address] [place] [address] * (ABNORMAL) CBC w/diff (05/13/2025 6:44 PM EST) WBC Count 20.00(H) 3.70 - 10.30 10*3/uL LAB HEMATOLOGY METHOD 05/13/2025 6:58 PM EST [facility] RBC Count 4.05 3.90 - 5.20 10*6/uL LAB HEMATOLOGY METHOD 05/13/2025 6:58 PM EST [facility] HGB 12.2 11.2 - 15.7 g/dL LAB HEMATOLOGY METHOD 05/13/2025 6:58 PM EST [facility] HCT 34.7 34.0 - 45.0 % LAB HEMATOLOGY METHOD 05/13/2025 6:58 PM EST [facility] Platelet Count 298 155 - 369 10*3/uL LAB HEMATOLOGY METHOD 05/13/2025 6:58 PM EST [facility] MCV 86 79 - 98 fL LAB HEMATOLOGY METHOD 05/13/2025 6:58 PM EST [facility] MCH 30.1 26.0 - 32.0 pg LAB HEMATOLOGY METHOD 05/13/2025 6:58 PM EST [facility] MCHC 35.2 30.7 - 35.5 g/dL LAB HEMATOLOGY METHOD 05/13/2025 6:58 PM EST [facility] RDW 14.3 11.5 - 14.5 % LAB HEMATOLOGY METHOD 05/13/2025 6:58 PM EST [facility] MPV 9.5 8.8 - 12.5 fL LAB HEMATOLOGY METHOD 05/13/2025 6:58 PM EST [facility] nRBC 0.0 <=0.0 per 100 WBCs LAB HEMATOLOGY METHOD 05/13/2025 6:58 PM EST [facility] Differential Type Automated LAB HEMATOLOGY METHOD 05/13/2025 6:58 PM EST [facility] Neutrophils % 84 % LAB HEMATOLOGY METHOD 05/13/2025 6:58 PM EST [facility] Lymphocytes % 7 % LAB HEMATOLOGY METHOD 05/13/2025 6:58 PM EST [facility] Monocytes % 8 % LAB HEMATOLOGY METHOD 05/13/2025 6:58 PM EST [facility] Eosinophils % 0 % LAB HEMATOLOGY METHOD 05/13/2025 6:58 PM EST [facility] Basophils % 0 % LAB HEMATOLOGY METHOD 05/13/2025 6:58 PM EST [facility] Immature Granulocytes % 1 % LAB HEMATOLOGY METHOD 05/13/2025 6:58 PM EST [facility] Neutrophils Absolute 16.81(H) 1.60 - 6.10 10*3/uL LAB HEMATOLOGY METHOD 05/13/2025 6:58 PM EST [facility] Lymphocytes Absolute 1.42 1.20 - 3.90 10*3/uL LAB HEMATOLOGY METHOD 05/13/2025 6:58 PM EST [facility] Monocytes Absolute 1.61(H) 0.30 - 0.90 10*3/uL LAB HEMATOLOGY METHOD 05/13/2025 6:58 PM EST [facility] Eosinophils Absolute 0.00 0.00 - 0.50 10*3/uL LAB HEMATOLOGY METHOD 05/13/2025 6:58 PM EST [facility] Basophils Absolute 0.03 0.00 - 0.10 10*3/uL LAB HEMATOLOGY METHOD 05/13/2025 6:58 PM EST [facility] Immature Granulocytes Absolute 0.13(H) 0.00 - 0.06 10*3/uL LAB HEMATOLOGY METHOD 05/13/2025 6:58 PM EST [facility] Blood Venous blood specimen / Unknown Venipuncture / Unknown 05/13/2025 6:44 PM EST 05/13/2025 6:50 PM EST Narrative [facility] - 05/13/2025 6:58 PM EST Therapeutic decision making should be based on absolute values, rather than percentages. us Jemal Hargrove MD LAB BLOOD ORDERABLES Final Resul t [facility] [address] [place] [address] * Lipase (05/13/2025 6:44 PM EST) Lipase, Plasma 21 19 - 63 U/L 05/13/2025 7:28 PM EST [facility] Blood Venous blood specimen / Unknown Venipuncture / Unknown 05/13/2025 6:44 PM EST 05/13/2025 6:50 PM EST us Jemal Hargrove MD LAB BLOOD ORDERABLES Final Resul t [facility] [address] [place] [address] * (ABNORMAL) CMP (05/13/2025 6:44 PM EST) Glucose, Plasma 146(H) 74 - 99 mg/dL 05/13/2025 7:28 PM EST [facility] BUN, Plasma 16 8 - 23 mg/dL 05/13/2025 7:28 PM EST [facility] Creatinine, Plasma 0.70 0.60 - 1.10 mg/dL 05/13/2025 7:28 PM EST [facility] BUN/Creatinine Ratio 23 05/13/2025 7:28 PM EST [facility] Sodium, Plasma 129(L) 136 - 145 mmol/L 05/13/2025 7:28 PM EST [facility] Potassium, Plasma 3.3(L) 3.6 - 4.9 mmol/L 05/13/2025 7:28 PM EST [facility] Chloride, Plasma 95(L) 97 - 107 mmol/L 05/13/2025 7:28 PM EST [facility] CO2, Plasma 25 22 - 29 mmol/L 05/13/2025 7:28 PM EST [facility] Anion Gap 9 6 - 16 mmol/L 05/13/2025 7:28 PM EST [facility] Total Calcium, Plasma 8.7(L) 8.9 - 10.2 mg/dL 05/13/2025 7:28 PM EST [facility] Total Protein 7.1 6.3 - 7.9 g/dL 05/13/2025 7:28 PM EST [facility] Albumin, Plasma 3.1(L) 3.5 - 5.2 g/dL 05/13/2025 7:28 PM EST [facility] AST, Plasma 39(H) 10 - 35 U/L 05/13/2025 7:28 PM EST [facility] ALT, Plasma 24 10 - 35 U/L 05/13/2025 7:28 PM EST [facility] Alkaline Phosphatase, Plasma 114 46 - 142 U/L 05/13/2025 7:28 PM EST [facility] Total Bilirubin, Plasma 1.1 0.2 - 1.1 mg/dL 05/13/2025 7:28 PM EST [facility] eGFRcr 92.6 mL/min/1.7 3m*2 05/13/2025 7:28 PM EST [facility] Comment:Reported eGFRcr in m L/min/1.73m2 is based the CKD-EPI 2020 equation that does not use a race coefficient. Blood Venous blood specimen / Unknown Venipuncture / Unknown 05/13/2025 6:44 PM EST 05/13/2025 6:50 PM EST us Jemal Hargrove MD LAB BLOOD ORDERABLES Final Resul t Performing Organization Address City/State/[facility] Co de Phone Number [facility] [address] [place] [address] documented in this encounter Visit Diagnoses Diagnosis [...] Other specified forms of effusion, except tuberculous Pleural effusion Unspecified pleural effusion documented in this encounter Admitting Diagnoses Diagnosis [...] Bag 06/01/2025 9:49 PM EST 65 mL/hr aspirin chewable tablet 81 mg 81 mg, Oral, Daily, First dose on Zoe 05/15/25 at 1130, Until Discontinued, Routine Given 06/02/2025 9:01 AM EST 81 mg Given 06/01/2025 9:20 AM EST 81 mg Given 05/31/2025 9:24 AM EST 81 mg bupivacaine PF (Marcaine) 0.25 % injection As needed, Starting on Mon05/27/25 at 1616, Until Mon05/27/25 at 1817, Routine, Intraprocedure Given 05/27/2025 4:16 PM EST 30 mL dextrose 10 % (D10W) bolus 125 mL [...] PRN low blood sugar BG =/<50 mg/dL enoxaparin (Lovenox) syringe 40 mg 40 mg, Subcutaneous, Daily, First dose on Zoe 05/15/25 at 1300, Until Discontinued, Routine Given 06/02/2025 [...] EST 20.8 mL /hr Right Upper Arm gabapentin (Neurontin) capsule 300 mg 300 mg, [...] sugar, per Hypoglycemia Prevention and Treatment protocol insulin regular (HumuLIN R,NovoLIN R) 100 UNIT/ML injection 8 Units 8 Units, Subcutaneous, Every 6 hours scheduled, First dose (after last modification) on Mon05/29/25 at 1200, Until Discontinued, Routine Given 06/02/2025 [...] 2 Units L eft Upper Arm (Back) Lidocaine (Lidoderm) 4 % patch 1 patch 1 patch, Apply externally, Every 24 hours, First dose on Mon05/27/25 at 2100, Until Discontinued, Administer over 12 Hours, Routine Medication Applied 06/01/2025 9:02 PM EST 1 patch Left Upper Abdomen Medication Applied 05/31/2025 9:06 PM EST 1 patch Flank Medication Applied 05/30/2025 8:53 PM EST 1 patch Flank methocarbamol (Robaxin) tablet 1,000 mg 1,000 mg, Oral, 4 times daily, First dose (after last modification) on Mon05/20/25 at 1400, Until Discontinued, Routine Given 06/02/2025 1:53 PM EST 1,000 m g Given 06/02/2025 9:01 AM EST 1,000 mg Given 06/01/2025 9:03 PM EST 1,000 mg nystatin (Mycostatin) [id number] UNIT/GM powder 1 Application Topical, 2 times [...] on Mon05/17/25 at 0900, Until Discontinued, Routine Given 06/02/2025 9:01 AM EST 40 mg Given 06/01/2025 9:20 AM EST 40 mg Given 05/31/2025 9:24 AM EST 40 mg senna-docusate (Lacey-Colace) 8.6-50 MG per tablet 1 [...] Given 05/29/2025 8:44 AM EST 3 mL documented in this encounter Active and Recently [...] Discontinued, Routine 09 (Given - Provider: Nathalie Valerio RN) 09 (Given - Provider: Nathalie Valerio RN) 09 (Given - Provider: Ariane Ordoñez RN) enoxaparin (Lovenox) syringe 40 mg 40 mg, Subcutaneous, Daily, First dose on Mon05/15/25 at 1300, Until Discontinued, Routine 09 (Given - Provider: Nathalie Valerio RN) [...] Routine 0924 (Given - Provider: Nathalie Valerio RN)2104 (Given - Provider: Tabitha Lee RN) 09 (Given - Provider: Nathalie Valerio RN)210 (Given - Provider: Franchesca Ybarra RN) 0901 (Given - Provider: Ariane Ordoñez RN) insulin regular (HumuLIN R,NovoLIN R) 100 UNIT/ML injection 8 Units 8 Units, Subcutaneous, Every 6 hours scheduled, First dose (after last modification) on Mon05/29/25 at 1200, Until Discontinued, Routine 0057 (Given - Provider: Tabitha Lee RN)0544 (Not Given - Provider: Tabitha Lee RN - Reason: Order parameters not met)1323 (Given - Provider: Nathalie Valerio RN - Comment: meal-)1915 (Given - Provider: Nathalie Valerio RN - Comment: meal) 0012 (Given - Provider: Tabitha Lee RN)0637 (Given - Provider: Tabitha Lee RN)1322 (Given - Provider: Nathalie Valerio RN - Comment: meal)1757 (Not Given - Provider: Nathalie Valerio RN [...] on Mon05/21/25 at 0000, Until Discontinued, Routine 0057 (Given - Provider: Tabitha Lee RN)0544 (Not Given - Provider: Tabitha Lee RN - Reason: Order parameters not met)1324 (Given - Provider: Nathalie Valerio RN)1915 (Given - Provider: Nathalie Valerio RN)2335 (Not Given - Provider: Tabitha Lee RN - Reason: Order parameters not met) 0637 (Given - Provider: Tabitha Lee RN)1207 (Not Given - Provider: Nathalie aVlerio RN - Reason: Order parameters not met)1758 [...] 2 g, Intravenous, Once, 1 dose, On Mon05/31/25 at 0845, Routine 0937 (New Bag - Provider: Nathalie Valerio RN) methocarbamol (Robaxin) tablet 1,000 mg 1,000 mg, Oral, 4 times daily, First dose (after last modification) on Mon05/20/25 at 1400, Until Discontinued, Routine 0924 (Given - Provider: Nathalie Valerio RN)1323 (Given - Provider: Nathalie Valerio, AJ)1915 (Given - Provider: Nathalie Valerio RN - Comment: cluster care)2102 (Given - Provider: Tabitha Lee RN) 0920 (Given - Provider: Nathalie Valerio RN)1322 (Given - Provider: Nathalie Valerio, AJ)1814 (Given - Provider: Nathalie Valerio RN)210 (Given - Provider: Franchesca Ybarra RN) 0901 (Given - Provider: Ariane Ordoñez RN)1353 (Given - Provider: Rachel Kamara RN)1800 (Canceled Entry - Provider: Automatic Discharge Provider - Comment: Automatically canceled at discontinue of medication order) nystatin (Mycostatin) [id number] UNIT/GM powder 1 Application Topical, 2 times daily, First dose on Mon06/01/25 at 0900, Until Discontinued, Routine 0927 (Given - Provider: Nathalie Valerio RN)210 (Given - Provider: Franchesca Ybarra RN) 0902 (Not Given - Provider: Ariane Ordoñez RN - Reason: Patient/Family/Represen tative Refused) pantoprazole (Protonix) EC tablet 40 mg 40 mg, Oral, Daily, First dose on Mon05/17/25 at 0900, Until Discontinued, Routine 0924 (Given - Provider: Nathalie Valerio RN) 0920 (Given - Provider: Nathalie Valerio RN) 09 [...] Discontinued, Routine 0953 (Given - Provider: Nathalie Valerio RN)2300 (Given - Provider: Tabitha Lee RN) 1009 (Given - Provider: Nathalie Valerio RN)2157 (Canceled Entry - Provider: Franchesca Ybarra RN) 0946 (Given - Provider: Ariane Ordoñez RN) sodium chloride 0.9 % flush 10 mL 10 mL, Intravenous, Every 12 hours, First dose on Mon05/20/25 at 1800, Until Discontinued, Routine 0530 (Given - Provider: Tabitha Lee RN)1919 (Given - Provider: Nathalie Valerio RN) 0638 (Given - Provider: Tabitha eLe RN)1758 (Given - Provider: Nathalie Valerio RN) 0600 (Canceled Entry - Provider: Franchesca Ybarra RN)1800 (Canceled Entry - Provider: Automatic Discharge Provider - Comment: Automatically canceled at discontinue of medication order) sodium chloride 3 % nebulizer solution 3 mL 3 mL, Nebulization, 2 times daily, First dose on Mon05/28/25 at 1030, Until Discontinued, Routine 921 (Given - Provider: Marilu Young)2112 (Not Given - Provider: Naomie Betancur - Reason: Patient/Family/Repre sentative Refused - Comment: pt feels tx is the reason for her sore throat/ pt will ask for a TX if she needs it) 08 (Given - Provider: Isis Velasquez)2117 (Not Given - Provider: Franchesca Ybarra RN - Reason: Patient/Family/Repre sentative Refused) 912 (Not Given - Provider: Marian Garcia - [...] RN) 0830 (Rate/Dose Verify - Provider: Ariane Ordoñez, AJ)1230 (Rate/Dose Verify - Provider: Ariane Ordoñez RN) [...] vomiting 1706 (See Alternative - Provider: Nathalie Valerio, AJ) ondansetron (Zofran) injection 4 mg(Linked Group 2) 4 mg, Intravenous, Every 6 hours PRN, Starting on Mon05/14/25 at 0312, Until Mon06/02/25 at 1920, Routine, vomiting, nausea 1706 (Given - Provider: Nathalie Valerio, RN) ondansetron ODT (Zofran-ODT) disintegrating tablet 4 mg(Linked Group 2) 4 mg, Oral, Every 6 hours PRN, Starting on Mon05/14/25 at 0312, Until Mon06/02/25 at 1920, Routine, nausea, vomiting 1706 (See Alternative - Provider: Nathalie Valerio, RN) oxyCODONE (Roxicodone) immediate release tablet 10 mg(Linked Group 3) 10 mg, Oral, Every 4 hours PRN, Starting on Mon05/26/25 at 0757, Until Mon06/02/25 at 1920, Routine, Moderate/Severe Pain > or =3: CPOT; > or =4: FLACC, PAINAD, NPASS, NRS, Dan-Garcia Faces; > or =5: DVPRS, NIPS 0058 (Given - Provider: Tabitha Lee RN)05 (Given - Provider: Tabitha Lee RN)09 (Given - Provider: Nathalie Valerio RN)2111 (Given - Provider: Tabitha Lee RN - Comment: pt rates pain #7 now after reppositioning) 023 (Given - Provider: Tabitha Lee RN)07 (Given - Provider: Nathalie Valerio RN)1712 (Given - Provider: Ntahalie Valerio RN)2147 (Given - Provider: Franchesca Ybarra RN) 034 (Given - Provider: Franchesca Ybarra RN)09 (See Alternative - Provider: Ariane Ordoñez RN) [...] RN)0525 (See Alternative - Provider: Tabitha Lee RN)09 (See Alternative - Provider: Nathalie Valerio RN)2111 (See Alternative - Provider: Tabitha Lee RN) 0230 (See Alternative - Provider: Tabitha Lee RN)0741 (See Alternative - Provider: Nathalie Valerio RN)1712 (See Alternative - Provider: Nathalie Valerio RN)2147 (See Alternative - Provider: Franchesca Ybarra RN) [...] Before and After EVERY dose of medication. 2104 (Given - Provider: Tabitha Lee RN) sodium [...] documented as of this encounter Care Teams Oversize Load Pilot Escort Relationship Specialty Start Date End Date Golden Newell MD [address] [place] [address] PCP - General 12/04/20 documented as of this encounter
--- OUTSIDE RECORDS SUMMARY | 2025-05-27 15:21 | XMS_ITS | Encounter Summary ---
Author Organization [facility] Address [address] [place] [address] Care Team Providers Care Front Sight Attacher Name Role Phone Golden Newell MD Primary Care Provider [phone] Reason for Visit * Auth/Cert (Routine) Specialty Diagnoses / Procedures Referred By Lg quinones Referred To Contact Diagnoses Peripancreatic fluid collection Sarah Fregoso MD [address] [address] Phone: tel: fax: [facility] Emergency Department [address] [place] [address] Phone: tel: Referral ID Status Reason Start Date Expiration Date Visits Re quested Visits Authorized [id number] 1 1 Encounter Details Date Type Department Care Team (Late st Contact Info) Description 05/27/2025 3:21 PM EST Anesthesia Event [facility] OPERATING ROOM [address] [place] [address] Gabriel Duran CRNA [address] [place] [address] Amena Garcia APRN, GERARDO [address] [place] [address] Anesthesia Record Procedure Summary Procedure Name Responsible Anesthesiologist Anesthesia Start Time Anesthesia Stop Time VATS Decortication Gabriel Duran CRNA 05/27/25 1 521 05/27/25 1826 Events Date Time Event Comment 05/27/2025 1504 1521 An Start The patient was reevaluated immediately before sedation and remains eligible for anesthesia plan. 1524 In Room 1524 An Start Data 1533 An Induction The patient was reevaluated immediately before moderate or deep sedation use and before anesthesia induction. 1535 An Intubation 1540 Anesthesia Ready 1600 Proc Start 1807 Proc Fin 1809 An Extubation 1814 an stop data 1817 Out of Room 1826 Handoff to Receiving I compl eted my handoff to the receiving clinician during which we: 1. Identified the patient 2. Identified the responsible provider 3. Reviewed the pertinent medical history 4. Discussed the surgical course 5. Reviewed intra-op anesthesia management and issues during anesthesia 6. Set expectations for post-procedure period 7. Allowed opportunity for questions and acknowledgement of understanding. 1825 An Stop Meds Name Total fentaNYL (Sublimaze) injection 50 mcg/mL 200 mcg propofol (Diprivan) injection 10 mg/mL 2 00 mg Lidocaine HCl 100 MG/5ML 40 mg ceFAZolin 1 g 2 g rocuronium (ZeMuron) injection 10 mg/mL 110 mg ondansetron (Zofran) injection 2 mg/mL 4 mg sugammadex (Bridion) injection 100 mg/mL 300 mg esmolol 100 MG/10ML 100 mg Adult 2-in-1 TPN 197.17 mL fat emulsion fish/plant based (SMOFlipid ) 20 % IV infusion 250 mL 0 mL HYDROmorphone PF 1 MG/ML 1 mg meToprolol tartrate (Lopressor) injectio n 5 mg lactated Ringer's infusion 600 mL * Agents Name O2 * Blood Name Total PRBC 350 mL Lines, Drains, and Airways Type Details Placement Removal Wound 03/20/25; 08; N; Y es; Surgical; Open Surg; Abdomen; Upper, Mid 03/20/25 0828 by Deyanira Wu RN Wound 03/25/25; 1215; Yes; Other; (open skin under epidural securement tape); Back; Lower, Right; MARSI 03/25/25 1215 by Magda Aguirre RN PICC Double Lumen Placement Date: 04/27 11/17; Placement Time: 09 (created via procedure documentation); Hand Hygiene Completed: Yes; Cath Time Out Checklist Completed: Yes; Size: 4; Length: 38 cm; Orientation: Right; Location: Brachial vein; Site Prep: Chlorhexidine ; Local Anesth: Injectable; Initial Exposed Catheter: 2 cm; Inserted by: Janice Lew/VAT; Insertion Attempts: 2 (attempted right basilic but unable to access vessel); Patient Tolerance: Tolerated well; Placement Verification: Blood return, ECG tip confirmation, Magnetic tracking, Ultrasound 05/20/25 0905 by Beth Camacho RN Wound 05/27/25; 1631; Yes; Surgical; Closed Surgi (surgical incisions for thoracoscopic port sites); Chest; Left 05/27/25 1631 by Heriberto Moncada RN Chest Tube Placement Date: 04/28 ; Placement Time: 1240; Inserted by: Mendez Ceja MD; Orientation: Left; Location: Midaxillary, Pleural; Size: 28 Fr; Drainage System: Suction; Removal Date: 05/27/25; Removal Time: 1602; Removal Reason: Other (Comment) (surgery) 05/25/25 1240 by Jeannette Jones RN 05/27/25 1602 by Heriberto Moncada RN Peripheral IV Placement Date: 08/20; Placement Time: 1539; Catheter Size: 16 G; Orientation: Left, Distal; Location: Forearm; Site Prep: Alcohol; Local Anesth: None; Technique: Anatomical landmarks; Inserted by: Sadia; Insertion Attempts: 1; Removal Date: 05/31/25; Removal Time: 0910; Removal Reason: Leaking 05/27/25 1539 by Gabriel Duran CRNA 05/31/25 0910 by Nathalie Valerio RN ETT Placement Date: 08/20; Placement Time: 1541 (created via procedure documentation); Mask Ventilation: 1; Technique: Direct laryngoscopy; Type: ETT - single, ETT - double lumen left; Double Lumen Tube Size: 37 Fr; Cuffed: Yes; Laryngoscope: Nikos; Blade Size: 3; Location: Oral; Grade View: Grade IIa; Insertion Attempts: 1; Placement Verification: Bronchoscopy, Capnometry; Placed by: BOB; Removal Date: 05/27/25; Removal Time: 18105/27/25 1541 by Gabriel Durna CRNA 05/27/25 1813 by Gabriel Duran CRNA Chest Tube Placement Date: 08/20; Placement Time: 1730; Inserted by: Dr. Griggs; Orientation: Left; Location: Midaxillary, Pleural; Size: 28 Fr; Removal Date: 05/31/25; Removal Time: 1000 05/27/25 173 by Heriberto Moncada RN 05/31/25 1000 by Nathalie Valerio RN Chest Tube Placement Date: 08/20; Placement Time: 1730; Inserted by: Dr. Griggs; Orientation: Left; Location: Midaxillary, Pleural; Size: 24 Fr; Removal Date: 06/01/25; Removal Time: 1010 05/27/25 173 by Heriberto Moncada RN 06/01/25 1010 by Nathalie Valerio RN documented in this encounter Social History Tobacco [...] any time in the past 12 m onths, were you homeless or living in a group home (including now)? No 05/14/2025 [facility] Utilities Answer Date Recorded In the [...] as of this encounter Functional Status * Backup Resp Rate (Set) Answer Date of Assessment Author 14 05/27/2025 6:11 PM EST Interface , Device In * Question Answer Date of Assessment Author Precautions Environmental surveillance 05/28/2025 12: 00 AM Rylie Dean RN * Question Answer Date of Assessment Author Precautions Environmental surveillance 05/28/2025 12: 00 AM Rylie Dean RN * Calculated C-SSRS Risk Score (Lifetime/Recent) Answer Date of Assessment Author No Risk Indicated 05/27/2025 2:35 PM Kalee Jorgensen RN * Question Answer Date of Assessment Author 1. Wish to be (Past 1 Month) No 025 2:35 PM Kalee Jorgensen, AJ 2. Non-Specific Active Suici sathish Thoughts (Past 1 Month) No 05/27/2025 2:35 PM Estela Jorgensen, AJ 6. Suicidal Behavior (Lifetime) No 2:35 PM Kalee Jorgensen, AJ documented as of this encounter Mental Status * Backup Resp Rate (Set) Answer Entry Date Author 14 05/27/2025 6:11 PM EST Interface , Device In * Question Answer Entry Date Author Precautions Environmental surveillance 05/28/2025 12: 00 AM EST Rylie Valentin RN documented in this encounter Miscellaneous Notes * Anesthesia Postprocedure Evaluation - Gabriel Duran CRNA - 05/27/2025 6:27 PM EST Patient: Dot Dale Anesthesia Type: general Vitals Value Taken Time BP 118/87 05/27/25 18:20 Temp 98.0 05/27/25 18:27 Pulse 90 05/27/25 18:25 Resp 20 05/27/25 18:25 SpO2 95 % 05/27/25 18:25 Vitals shown include unfiled device data. Anesthesia Post Evaluation Patient location during evaluation: PACU Patient participation: complete - patient participated Level of consciousness: awake Pain management: adequate (pain score 0-3) Airway patency: natural airway Cardiovascular status: hemodynamically stable Respiratory status: blow-by oxygen, spontaneous ventilation and nonlabored ventilation Hydration status: stable Nausea/Vomiting: No No notable events documented. * Anesthesia Procedure Notes - Gabriel Duran CRNA - 05/27/2025 4:05 PM EST Associated Order(s): Airway Airway Date/Time: 05/27/2025 3:41 PM Reason: elective Airway not difficult General Information and Staff Patient location during procedure: OR MISCELLANEOUS MACHINE OPERATOR: Gabriel Duran CRNA Performed: MISCELLANEOUS MACHINE OPERATOR Patient Condition Indications for airway management: anesthesia Patient position: sniffing Planned trial extubation Final Airway Details Final airway type: endotracheal airway Successful airway: ETT - double lumen left and ETT Cuffed: yes Successful intubation technique: direct laryngoscopy Endotracheal tube insertion site: oral Blade: Nikos Blade size: #3 ETT DL size (fr): 37 Cormack-Lehane Classification: grade IIa - partial view of glottis Placement verified by: bronchoscopy and capnometry Cuff volume (mL): 5 * Anesthesia Preprocedure Evaluation - Yadira Mccullough MD - 05/27/2025 9:54 AM EST Procedure Information Date/Time: 05/27/25 1430 Procedure: VATS Decortication Location: [facility] / [facility] OR Surgeons: Dylon Griggs MD HPI Dot Dale is a 69 y.o. female with body mass index is 24.94 kg/m??. 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, Pituitary Adenoma, HLD AIRWAY HISTORY: Date Difficult Airway Blade Size ETT Size C-L Class Final Type Intubation Method 03/20/25 No 3 7.5 grade IIa - partial view of glottis endotracheal airway direct laryngoscopy 02/07/25 No 3 7.0 grade I - full view of glottis endotracheal airway direct laryngoscopy NPO STATUS: on TPN Activity Level/METS: at least 4, limited by arthritis Type & Screen Expires: ordered Lab Results Component Value Date ABO O Positive 03/20/2025 ALLERGIES Allergies[1] MEDICATIONS Outpatient Current Outpatient Medications Medication Instructions Alcohol Sheets (Alcoh-Wipe) sheet Use as directed. amLODIPine (NORVASC) 5 mg, Oral, Daily aspirin 81 mg, Daily atorvastatin (LIPITOR) 80 mg, Daily Blood Glucose Monitoring Suppl device Check blood sugar, twice daily. Once, one hour after TPN disconnects, and one hour after TPN connection. glucose blood test strip Test two times daily Lancets misc Test two times daily lidocaine (Lidoderm) 5 % patch 1 patch, Apply externally, Every 24 hours, Remove & discard patch within 12 hours or as directed by . ondansetron ODT (ZOFRAN-ODT) 4 mg, Oral, Every 8 hours PRN oxyCODONE (ROXICODONE) 5 mg, Oral, Every 8 hours PRN pantoprazole (PROTONIX) 40 mg, Oral, Daily, Do not crush, chew, or split. pen needle, diabetic 31G X 5 MM misc Use as directed with insulin pen. Scheduled Current Scheduled Medications[2] PRNs Current PRN Medications[3] SURGICAL HX: Surgical History[4] SOCIAL HX: Social History[5] OBJECTIVE DATA Blood pressure (!) 145/73, pulse 99, temperature 36.6 ??C (97.9 ??F), temperature source Oral, resp. rate 21, height 1.626 m (5' 4 ), weight 65.9 kg (145 lb 4.5 oz), SpO2 95%. LABS Lab Results Component Value Date WBC 14.09 (H) 05/27/2025 HGB 9.2 (L) 05/27/2025 HCT 28.2 (L) 05/27/2025 MCV 89 05/27/2025 PLT 584 (H) 05/27/2025 Lab Results Component Value Date CALCIUM 8.0 (L) 05/27/2025 BUN 12 05/27/2025 CREATININE 0.46 (L) 05/27/2025 BCR 26 05/27/2025 NA 135 (L) 05/27/2025 K 4.2 05/27/2025 CL 103 05/27/2025 CO2 23 05/27/2025 ANIONGAP 9 05/27/2025 No results found for: APTT , INR Lab Results Component Value Date HGBA1C 5.4 12/05/2020 GLUCOSE 154 (H) 05/27/2025 ABG No results found for: PHART , ZZH4EUH , PO2ART , SO2ART , BEART , HWA1TJB , HCTART , SODIUMART , POTASSIUMART , POCTCL , POCGLU , IONCALART , LACTATE No results found for: PH , PCO2 , PO2 , U3RGVXBR , BASEEXC , HCTSYR , KSYR , CLSYR , GLUSYR , CAION , LACTATE EKG Encounter Date: 05/13/25 ECG Adult Result Value EKG DIAGNOSIS CLASS Abnormal Ventricular Rate 92 Atrial Rate 92 ID Interval 124 QRSD Interval 80 QT Interval 344 QTC Interval 425 P [place] 53 R [place] -21 T Wave [place] 50 Diagnosis Normal sinus rhythm Diagnosis Leftward axis Diagnosis Poor R-wave progression Cannot rule out Anterior infarct , age undetermined Diagnosis Abnormal ECG Diagnosis Need clinical information and correlation Diagnosis Diagnosis Confirmed by Sampson Reza ([id number]) on 05/19/2025 8:42:58 PM *Note: Due to a large number of results and/or encounters for the requested time period, some results have not been displayed. A complete set of results can be found in Results Review. 03/10/25 Echo ([facility]) -EF 55-60%. No regional wall motion abnormalities. -RVSP 34.8 mmHg -No hemodynamically significant valvular abnormalities. 03/18/25 Stress Test [facility]) -Normal Lexiscan nuclear stress test. No evidence of ischemia. Normal EF- 65% Physical Exam Anesthesia Plan ASA 3 Plan was reviewed with: MISCELLANEOUS MACHINE OPERATOR and attending Anesthesia technique(s) discussed with the patient/family: general Anesthesia plan agreed upon was: general Anesthetic plan and risks discussed with patient. Use of blood products discussed with patient who consented to blood products. ROS Anesthesia: Date of last anesthetic: 03/20/25 history of previous anesthesia. Does not have a history of anesthetic complications, obstructive sleep apnea and PONV. Cardiovascular: hyperlipidemia. Does not have CAD, dysrhythmias, pacemaker or past UT. no hypertension: Cardio additional comments: 03/10/25 Echo ([facility]) -EF 55-60%. No regional wall motion abnormalities. -RVSP 34.8 mmHg -No hemodynamically significant valvular abnormalities. 03/18/25 Stress Test [facility]) -Normal Lexiscan nuclear stress test. No evidence of ischemia. Normal EF- 65% . Respiratory: no asthma: no COPD: HEENT: missing teeth (x3 back teeth missing).Does not have difficulty swallowing or loose teeth. Neurological: Does not have headaches. no seizures: a cerebrovascular accident. Neuro additional comments: Partial Left CN III palsy Musculoskeletal: arthritis. Does not have cervical spine limited mobility. Gastrointestinal: Does not have GERD.Does not have cirrhosis. Genitourinary: Does not have chronic renal disease.renal calculi. Does not have renal disease. Hematological/Lymphatic: History of DVT. Received anticoagulation therapy. History of no pulmonary embolism. no history of chemotherapy no history of radiation Endocrine/Metabolic: does not have diabetes mellitus. Does not have thyroid disorder. Endo/Met additional comments: Pituitary adenoma on 11/2020 imaging. pituitary labs: FSH, LH, TSH, Prolactin, ACTH within normal limits, [1] No Known Allergies [2] acetaminophen, 1,000 mg, Oral, q8h aspirin, 81 [...] q12h sodium chloride, 10 mL, Intravenous, q12h [3] PRN medications: glucose OR dextrose 10 % OR dextrose 10 % OR glucagon (human recombinant), ondansetron ODT OR ondansetron OR ondansetron, oxyCODONE OR oxyCODONE, sodium chloride, sodium chloride, sodium chloride, sodium chloride [4] Past Surgical History: Procedure Laterality Date CYSTOSCOPY ENDOSCOPY EXTERNAL - ECG EXTERNAL - ECG [5] Social History Tobacco Use Smoking status: Never Smokeless tobacco: Never Vaping Use Vaping status: Never Used Substance Use Topics Alcohol use: Never Drug use: Never documented in this encounter Plan of Treatment Upcoming Encounters Date Type Department Care Team (Late st Contact Info) Description 06/13/2025 10:00 AM EST Office Visit [facility] Mult[facility] On[facility] [address] [place] [address] Vibha Osborn, PAEDIATRIC THORACIC PHYSICIAN [address] [facility] [address] [place] [address] documented as of this encounter Goals Goal Patient Goal Type Associated Problems Recent Progress Patient-Stated? Author Autogenerat ed Goal Care Plan Autogenerated Problem No Jennifer Sabillon Autogenerat ed Goal Care Plan Autogenerated Problem No Lokesh Anderson MD documented as of this encounter Procedures Procedure Name Priority Date/Time Associated Diagnosis Comments PB ANESTHESIA PLACEHOLDER Routine 05/27/2025 3:41 PM EST ID AN ELECTIVE ENDOTRACHEAL AIRWAY Routine 05/27/2025 3:41 PM EST documented in this encounter Results * ID AN ELECTIVE ENDOTRACHEAL AIRWAY, PB ANESTHESIA PLACEHOLDER (05/27/2025 3:41 PM EST) Gabriel Dodd CRNA - 05/27/2025 3:41 PM EST Gabriel Duran CRNA 05/27/2025 4:06 PM Airway Date/Time: 05/27/2025 3:41 PM Reason: elective Airway not difficult General Information and Staff Patient location during procedure: OR MISCELLANEOUS MACHINE OPERATOR: Gabriel Duran CRNA Performed: MISCELLANEOUS MACHINE OPERATOR Patient Condition Indications for airway management: anesthesia Patient position: sniffing Planned trial extubation Final Airway Details Final airway type: endotracheal airway Successful airway: ETT - double lumen left and ETT Cuffed: yes Successful intubation technique: direct laryngoscopy Endotracheal tube insertion site: oral Blade: Nikos Blade size: #3 ETT DL size (fr): 37 Cormack-Lehane Classification: grade IIa - partial view of glottis Placement verified by: bronchoscopy and capnometry Cuff volume (mL): 5 us Yadira Mccullough MD ANESTHESIA ORDERABLES Final R esult documented in this encounter Visit Diagnoses Not on filedocumented in this encounter Administered Medications Inactive Administered Medications - up to 3 most recent administrations Medication Order MAR Action Action Date Dose Rate Site Adult 2-in-1 TPN 65 mL/hr, Continuous TPN, Starting on Mon05/26/25 at 2100, Until Mon05/28/25 at 205, 1,560 mL, Administer over 24 Hours, Intravenous, Central, Routine Rate/Dose Verify 05/28/2025 8:21 AM EST 65 mL/hr New Bag 05/27/2025 9:44 PM EST 65 mL/hr Rate/Dose Change 05/27/2025 3:24 PM EST 65 mL/h r ceFAZolin (Ancef) injection Intravenous, As needed, Starting on Mon05/27/25 at 1550, Until Mon05/27/25 at 1827, Routine, Anesthesia Intraprocedure Given 05/27/2025 3:50 PM EST 2 g esmolol (Brevibloc) injection Intravenous, As needed, Starting on Mon05/27/25 at 1555, Until 05/27/25 at 1827, Routine, Anesthesia Intraprocedure Given 05/27/2025 5:19 PM EST 20 mg Given 05/27/2025 5:00 PM EST 20 mg Given 05/27/2025 4:44 PM EST 30 mg fentaNYL (Sublimaze) injection Intravenous, As needed, Starting on 05/27/25 at 1525, Until 05/27/25 at 1827, Routine, Anesthesia Intraprocedure Given 05/27/2025 4:30 PM EST 50 mcg Given 05/27/2025 4:12 PM EST 50 mcg Given 05/27/2025 3:59 PM EST 50 mcg HYDROmorphone PF (Dilaudid) injection Intravenous, As needed, Starting on 05/27/25 at 1719, Until 05/27/25 at 1827, Routine, Anesthesia Intraprocedure Given 05/27/2025 5:19 PM EST 1 mg lactated Ringer's infusion Intravenous, Continuous PRN, Starting on 05/27/25 at 1524, Until 05/27/25 at 1827, Routine New Bag 05/27/2025 3:24 PM EST Lidocaine HCl prefilled syringe Buccal, As needed, Starting on 05/27/25 at 1533, Anesthesia Intraprocedure Given 05/27/2025 3:32 PM EST 40 mg metoprolol tartrate (Lopressor) injection Intravenous, As needed, Starting on 05/27/25 at 1740, Until 05/27/25 at 1827, Routine, Anesthesia Intraprocedure Given 05/27/2025 5:58 PM EST 2 mg Given 05/27/2025 5:40 PM EST 3 mg ondansetron (Zofran) injection Intravenous, As needed, Starting on 05/27/25 at 1616, Until 05/27/25 at 1827, Routine, Anesthesia Intraprocedure Given 05/27/2025 4:16 PM EST 4 mg propofol (Diprivan) injection Intravenous, As needed, Starting on 05/27/25 at 1533, Until 05/27/25 at 1827, Routine, Anesthesia Intraprocedure Given 05/27/2025 5:55 PM EST 70 mg Given 05/27/2025 5:20 PM EST 30 mg Given 05/27/2025 3:33 PM EST 80 mg rocuronium (ZeMuron) injection Intravenous, As needed, Starting on 05/27/25 at 1534, Until 05/27/25 at 1827, Routine, Anesthesia Intraprocedure Given 05/27/2025 5:07 PM EST 10 mg Given 05/27/2025 4:49 PM EST 10 mg Given 05/27/2025 4:30 PM EST 10 mg sugammadex (Bridion) 100 MG/ML injection Intravenous, As needed, Starting on 05/27/25 at 1806, Until 05/27/25 at 1827, Routine, Anesthesia Intraprocedure Given 05/27/2025 6:06 PM EST 300 mg Transfuse RBC Routine New Bag 05/27/2025 5:29 PM EST documented in this encounter Additional Health Concerns Active Problems Noted Date Diagnosed Date Autogenerated Problem 12/19/2024 Autogenerated Problem 02/26/2025 Assessment Noted Time PHQ-9 Depression Total Score: 0 04/09/20 9:05 AM EDT A fall risk assessment has been complete d for the patient 04/30/2025 1:00 PM EST A Body Mass Index follow-up plan has been documented for the patient 06/02/2025 2:33 PM EST documented as of this encounter Care Teams Front Sight Attacher Relationship Specialty Start Date End Date Golden Newell MD [address] [place] [address] PCP - General 12/04/20 documented as of this encounter
--- OUTSIDE RECORDS SUMMARY | 2025-06-04 03:26 | XMS_ITS | Encounter Summary ---
Author Organization Healthcare Address [address] [place] [id number] Care Team Providers Care Graphic Manager Name Role Phone Golden Newell MD Primary Care Provider [phone] Reason for Visit * Reason Comments Shortness of Breath Encounter Details Date Type Department Care Team ([facility] st Contact Info) Description 06/04/2025 3:26 AM EST - 06/04/2025 6:45 AM EST Emergency [facility] Emergency Department [address] [place] [address] Nory Jaffe MD [address] [place] [address] Shortness of breath (Primary Dx); Nausea Discharge Disposition: Home or Self Care Social History Tobacco Use Types Packs/Day Years [...] time in the past 12 m [facility], were you homeless or living in a fpc (including now)? No 05/14/[address] [facility] Utilities Answer Date Recorded In [...] Sign Reading Time Taken Comments Blood Pressure 133/69 06/04/2025 6:00 AM EST Pulse 96 06/04/2025 6:00 AM EST Temperature 36.7 C (98.1 F) 06/04/2025 4:00 AM EST Respiratory Rate 20 06/04/2025 6:00 AM EST Oxygen Saturation 97% 06/04/2025 6:00 AM EST Inhaled Oxygen Concentration - - Weight - - Height - - Body Mass Index - - documented in this encounter Functional Status * Calculated C-SSRS Risk Score (Lifetime/Recent) Answer Date of Assessment Author No Risk Indicated 06/04/2025 3:35 AM EST Sarah Giraldo * Question Answer Date of Assessment Author 1. Wish to be (Past 1 Month) No 025 3:35 AM EST Sarah Giraldo 2. Non-Specific Active Suici sathish Thoughts (Past 1 Month) No 06/04/2025 3:35 AM EST Sarah Giraldo 6. Suicidal Behavior (Lifetime) No 3:35 AM EST Sarah Giraldo documented as of this encounter Discharge Instructions * Discharge Instructions* Kalee Lewis MD - 06/04/2025 6:12 AM EST You have been seen today in the ER for your concerns. At this time, your laboratory workup and yourCT scans are improved from prior. You simply may need more time to feel better after your hospital stay. I have sent you in a different kind of antinausea medication you can try. documented in this encounter Medications at Time of Discharge acetaminophen (Tylenol) 500 MG tablet Take 2 tablets by mouth every 8 hours for 15 days. 90 tablet 06/02/2025 06/17/20 25 Alcohol Sheets (Alcoh-Wipe) sheet Use as directed. [...] 2 times a day. 60 capsule 06/02/2025 01/07/20 26 glucose (Trueplus Glucose) 4 g chewable tablet [...] lantus instead of 24units 30 mL 06/02/2025 10/06/19 26 Lancets misc Test two times daily 100 each 04/04/2025 Lancets misc Test two times daily 100 each 11 06/02/2025 Lidocaine (Lidoderm) 4 % patch Apply 1 patch topically 1 (one) time each day at the same time over 12 hours. Remove & discard patch within 12 hours or as directed by MD. 30 patch 06/02/2025 07/02/19 26 methocarbamol (Robaxin) 500 MG tablet Take 2 tablets by mouth 4 times a day. 90 tablet 06/02/2025 06/13/20 25 naloxone (Narcan) 4 mg/0.1 mL nasal spray [...] crush, chew, or split. 60 tablet 06/03/2025 08/02/19 26 pen needle, diabetic 31G X 5 MM misc Use as directed with insulin pen. 100 each 11 04/04/2025 pen needle, diabetic 31G X 5 MM misc Use as directed with insulin pen. 100 each 11 06/02/2025 prochlorperazine (Compazine) 5 MG tablet Take 1 tablet by mouth every 6 hours as needed for nausea or vomiting. 30 tablet 06/04/2025 prochlorperazine (Compazine) 5 MG tablet Take 1 tablet by mouth every 6 hours as needed for nausea or vomiting. 30 tablet 06/04/2025 promethazine (Phenergan) 12.5 MG suppository Insert 1 suppository into the rectum every 6 hours as needed for nausea or vomiting. 12 each 06/04/2025 senna-docusate (Lacey-Colace) 8.6-50 MG tablet Take 1 tablet by mouth nightly. 30 tablet 06/02/2025 07/02/19 oxyCODONE (Roxicodone) 5 MG immediate release tablet Take 2 tablets by mouth every 4 hours as needed for moderate pain or severe pain for up to 3 days. 36 tablet 06/02/2025 06/05/20 documented as of this encounter Miscellaneous Notes * ED Provider Notes - Kalee Lewis MD - 06/04/2025 3:20 AM EST Images from the original note were not included. - HPI Chief Complaint Patient presents with Shortness of Breath HPI Dot Dale is a 69 y.o. female with a past medical history of IPMN s/p distal pancreatectomy and splenectomy on 03/20/25, history of CVA on aspirin, HLD with recent hospitalization and discharge on 06/02 with hospital course detailed below who presents today for worsening abdominal pain and nausea as well as acute onset SOB. She states she had an episode of nausea after discharge that resolved with medication and then yesterday became nauseaous and it has not responded to medications. No vomiting. No diarrhea. No fevers. She also became short of breath overnight while at rest. Is taking oxycodone for pain but feels she is getting little relief. Has no other complaints. Has been taking all prescribed medications. Hospital course from last stay: 05/14: IR place CT guided drain in [...] tube removed 06/01: 24fr chest tube removed Patient History Past Medical History[1] Surgical History[2] Family History[3] Social History[4] Allergies: Allergies[5] Physical Exam ED Triage Vitals Temp Heart Rate Resp BP 06/04/2532106/04/2532106/04/2532106/04/25322 36.6 ??C (97.9 ??F) 104 20 (!) 140/80 SpO2 Temp Source Heart Rate Source Patient Position 06/04/2532106/04/2532106/04/2532106/04/25321 95 % Oral Monitor Sitting BP Location FiO2 (%) 06/04/25321 -- Left arm Physical Exam Constitutional: General: She is not in acute distress. Appearance: She is ill-appearing. She is not toxic-appearing. HENT: Head: Normocephalic and atraumatic. Eyes: Pupils: Pupils are equal, round, and reactive to light. Cardiovascular: Rate and Rhythm: Regular rhythm. Tachycardia present. Pulmonary: Effort: Pulmonary effort is normal. Breath sounds: No decreased breath sounds or wheezing. Musculoskeletal: Cervical back: Normal range of motion. Right lower leg: No edema. Left lower leg: No edema. Skin: General: Skin is warm and dry. Capillary Refill: Capillary refill takes less than 2 seconds. Neurological: General: No focal deficit present. Mental Status: She is alert. EASI ?? Total Score: 0 No data recorded ED Course & MDM - Assessment: 69 y.o. female presents to ED with complaint of SOB, nausea. It should be noted that the chronic conditions includes IPMN s/p distal pancreatectomy and splenectomy on 03/20/25, history of CVA on aspirin, HLD , which currently is not at goal therapy. This complicates the clinical picture because it Comorbidities: may be exacerbating symptoms, increases the amount and complexity of data to be reviewed, and complicates the clinical workup Differential Diagnosis: Infection, recurrent effusion, postop complication, electrolyte derangement, among others. In order to fully explore the differential diagnosis the following treatments and tests were ordered: ED Medication Administration from 06/04/2025 0320 to 06/04/2025 0614 Date/Time Order Dose Route Action 06/04/2025 0433 EST ondansetron (Zofran) injection 4 mg 4 mg Intravenous Given 06/04/2025 0434 EST HYDROmorphone (Dilaudid) injection 1 mg 1 mg Intravenous Given 06/04/2025 0505 EST iohexol (OMNIPaque) 350 MG/ML injection 100 mL 100 mL Intravenous Given All Other Orders Ordered Status Ordering Provider 06/04/25 0443 Extra Tubes Once In process NORY JAFFE 06/04/25 044 Light Blue Top PROCEDURE ONCE In process NORY JAFFE 06/04/[address] Abdomen Pelvis w IV Contrast Once Final result KALEE LEWIS Luc 06/04/[address] Angio Pulmonary Embolism Once Final result KALEE LEWIS W 06/04/25 0353 XR Chest 1 View One time imaging Final result KALEE LEWIS W 06/04/25 0353 CBC w/diff STAT Final result KALEE LEWIS W 06/04/25 0353 CMP STAT Final result KALEE LEWIS W 06/04/25 0353 Magnesium STAT Final result KALEE LEWIS W 06/04/25 0353 Phosphorus STAT Final result KALEE LEWIS W 06/04/25 0353 Lipase STAT Final result KALEE LEWIS W 06/04/25 0353 Lactic acid, venous STAT Final result KALEE LEWIS W 06/04/25 0353 C-Reactive protein STAT Final result KALEE LEWIS W 06/04/25 0324 EKG now - STAT (adult) Once Preliminary result NORY JAFFE ED Course as of 06/04/25 0614 MonJun 04, 2025 0347 Vitals upon arrival with a BP of 140/80, heart rate of 104, normal respiratory rate and O2 saturation on room air. Afebrile. [JG] 0352 EKG upon arrival per my personal interpretation sinus tachycardia, normal intervals, no ST changes or T-wave inversions concerning for ischemia. [JG] 0419 XR Chest 1 View Similar small left pleural effusion and left basilar opacities [JG] 0455 Dilaudid and zofran administered for symptomatic control [JG] 0517 WBC: 8.32 [JG] 0517 Hemoglobin(!): 9.4 At baseline [JG] 0517 Lactate: 1.2 [JG] 0540 Lipase(!): 18 [JG] 0610 CT abdomen pelvis and CTA PE without acute findings. No need for further workup or interventions. Patient overall safe for discharge at this time. [JG] ED Course User Index [JG] Kalee Lewis MD Clinical Impressions as of 06/04/25 0614 Shortness of breath Nausea Social Determinates of Health Risks (including Economic Stability, Education and level of understanding, Healthcare access and quality and concerning social factors): None identified on this visit Ultimately, this patient was Was discharged Home (Discharge) The primary encounter diagnosis was Shortness of breath. A diagnosis of Nausea was alsopertinent to this visit. . Patient was counseled on the diagnoses. Discharge medications if any arelisted below. Listed medications are thought be either curative for listed diagnoses or will help control ongoing symptoms. Patient is requested to follow up with Patient's Primary Care Provider in order to obtain routine follow-up. Instructions on follow up as well as precautions to return to the ER provided verbally by the EM provider, as well as written in patients discharge education packet. ED Prescriptions Medication Sig Dispense Start Date End Date Auth. Provider prochlorperazine (Compazine) 5 MG tablet Take 1 tablet by mouth every 6 hours as needed for nausea or vomiting. 30 tablet 06/04/2025 -- Kalee Lewis MD Discharge Instructions You have been seen today in the ER for your concerns. At this time, your laboratory workup and yourCT scans are improved from prior. You simply may need more time to feel better after your hospital stay. I have sent you in a different kind of antinausea medication you can try. Disposition Discharge - [1] Past Medical History: Diagnosis Date [...] Drug use: Never [5] No Known Allergies Kalee Lewis MD Resident 06/04/25614 Cosigned by Nory Jaffe MD at 06/04/2025 6:21 AM EST Associated attestation - Nory Jaffe MD - 06/04/2025 6:21 AM EST I saw and evaluated the patient with the resident/fellow. I discussed the case with the resident/fellow and agree with the findings and plan as documented. * ED Triage Notes - Justo Harp RN - 06/04/2025 3:20 AM EST Pt reports SOA/nausea starting this evening. Reports recent distal pancreatectomy and splenectomy on 03/20/25 documented in this encounter Plan of Treatment Upcoming Encounters Date Type Department Care Team (Late st Contact Info) Description 06/13/2025 10:00 AM EST Office Visit [facility] [address] [place] [phone] Vibha Osborn APRN [address] [place] [id number] documented as of this encounter Goals Goal Patient Goal Type Associated Problems Recent Progress Patient-Stated? Author Autogenerat ed Goal Care Plan Autogenerated Problem No SabillonJennifer guajardo Autogenerat ed Goal Care Plan Autogenerated Problem No Lokesh Anderson MD documented as of this encounter Procedures Procedure Name Priority Date/Time Associated Diagnosis Comments CT ANGIO PULMONARY EMBOLISM STAT 06/04/2025 5:[address] ABDOMEN PELVIS W IV CONTRAST STAT 06/04/2025 5:23 AM EST EXTRA TUBE LIGHT BLUE TOP Routine 06/04/2025 4:31 AM EST LACTATE, VENOUS STAT 06/04/2025 4:31 AM EST EXTRA TUBES Routine 06/04/2025 4:31 AM EST CBC WITH AUTO DIFFERENTIAL STAT 06/04/2025 4:31 AM EST C-REACTIVE PROTEIN, PLASMA STAT 06/04/2025 4:31 AM EST PHOSPHORUS, PLASMA STAT 06/04/2025 4: 31 AM EST MAGNESIUM, PLASMA STAT 06/04/2025 4:3 1 AM EST LIPASE, PLASMA STAT 06/04/2025 4:31 AM EST COMPREHENSIVE METABOLIC PANEL, PLASMA STAT 06/04/2025 4:31 AM EST XR CHEST 1 VIEW STAT 06/04/2025 4:09 AM EST ECG ADULT STAT 06/04/2025 3:30 AM EST documented in this encounter Results * CT Angio Pulmonary Embolism (06/04/2025 5:23 AM EST) Anatomical Region Laterality Modality Chest Computed Tomogra phy Impressions 06/04/2025 5:49 AM EST No pulmonary embolism. Interval decrease in left pleural effusion, now small with air and fluid in left pleural space and tracking along the left fissure, likely postsurgical changes of recent VATS procedure. Postsurgical changes of recent splenectomy and distal pancreatectomy with pneumobilia, interval resolution of previously noted fluid collection adjacent to the pancreatic suture margin, and interval decrease in size of fluid collection in left upper quadrant. Large volume of urine in the bladder. CRITICAL RESULT: No. COMMUNICATION: Per this written report. Preliminary report signed by Octavio Anderson MD on 06/04/2025 5:47 AM By electronically signing this report, I, the attending physician, attest that I have personally reviewed the images/data for the above examination(s) and agree with the final edited report. Drafted by Octavio Anderson MD on 06/04/2025 5:25 AM Final report signed by Zack Valencia MD on 06/04/2025 5:49 AM Narrative 06/04/2025 5:49 AM EST CLINICAL INDICATION: sob, recent immobilization TECHNIQUE: Imaging of the chest abdomen and pelvis was performed, from thoracic inlet through pubic symphysis, using spiral technique, following administration of IV contrast, Omnipaque 350, 100 mL according to the CT PE protocol and CT Abdomen/Pelvis protocol. Delayed (excretory phase) images were performed through the kidneys. Reformatted images in the coronal, sagittal, and oblique planes were generated from the axial data set to facilitate diagnostic accuracy. In addition, 3D images were created and reviewed. Total DLP (Dose-Length Product): 1474.75 mGy.cm (accession [id number]), 1474.75 mGy.cm (accession [id number]). Please note: The reported value represents the total of one or more individual components during the CT acquisition on this date and at this time, and as such, the same value may appear in more than one CT report depending on the interpreting/reporting physicians. COMPARISON: CT chest with contrast dated 05/22/2025 CT abdomen and pelvis with contrast dated 05/20/2025 FINDINGS: Chest: Pulmonary Arteries/Vessels: No pulmonary embolism. Pleural/Pericardial Space: Interval decrease in size of left pleural effusion, now small, with air noted within the pleural space, likely postsurgical changes related to recent VATS. Similarly there is air and small volume fluid along the left fissure, also likely secondary to recent VATS. No pericardial effusion. Lymph Nodes: No lymphadenopathy within the chest. Lungs: Left basilar atelectasis. Mediastinum: Right-sided PICC with tip in the right atrium. Chest Wall: No chest wall hematoma or contusion. Bones: No acute fracture within the chest. Multilevel degenerative changes of the thoracic spine. Abdomen: Liver/Gallbladder/Biliary System: The liver demonstrates homogeneous enhancement. Absent gallbladder. Redemonstrated intrahepatic and intrahepatic biliary ductal dilatation. Pneumobilia. Spleen: Postsurgical changes of splenectomy. Pancreas: Postsurgical changes of distal pancreatectomy. Interval resolution of previously noted fluid collection adjacent to the pancreatic suture margin. Interval decrease in size of fluid collection in the left upper quadrant measuring up to 3.6 cm x 1.0 cm compared to 3.6 x 1.3 cm on prior (series 3, image 70). Adrenals: The adrenals are morphologically unremarkable. Kidneys: The kidneys demonstrate symmetric nephrogram and excretion. Multiple hypoattenuating lesions throughout the right kidney, too small to characterize but likely simple cysts. No renal or ureteral calculi. No hydronephrosis. Bowel/Mesentery: The small bowel loops are not dilated. The large bowel loops are not dilated. The appendix is visualized and normal. Vessels/Lymph Nodes: The abdominal aorta is unremarkable. No lymphadenopathy within the abdomen or pelvis. Fluid Survey: No free fluid in the abdomen. No free fluid in the pelvis. Pelvis: Large volume of urine in the bladder. Body Wall: Supraumbilical midline postsurgical scarring. Bones: No acute fracture within the abdomen or pelvis. Procedure Note Zack Valencia MD - 06/04/2025 CLINICAL INDICATION: sob, recent immobilization TECHNIQUE: Imaging of the chest abdomen and pelvis was performed, from thoracic inletthrough pubic symphysis, using spiral technique, following administrationof IV contrast, Omnipaque 350, 100 mL according to the CT PE protocol andCT Abdomen/Pelvis protocol. Delayed (excretory phase) images wereperformed through the kidneys. Reformatted images in the coronal,sagittal, and oblique planes were generated from the axial data set tofacilitate diagnostic accuracy. In addition, 3D images were created andreviewed. Total DLP (Dose-Length Product): 1474.75 mGy.cm (accession [id number]),1474.75 mGy.cm (accession [id number]). Please note: The reported valuerepresents the total of one or more individual components during the CTacquisition on this date and at this time, and as such, the same value mayappear in more than one CT report depending on the interpreting/reportingphysicians. COMPARISON: CT chest with contrast dated 05/22/2025 CT abdomen and pelvis with contrast dated 05/20/2025 FINDINGS: Chest: Pulmonary Arteries/Vessels: No pulmonary embolism. Pleural/Pericardial Space: Interval decrease in size of left pleuraleffusion, now small, with air noted within the pleural space, likelypostsurgical changes related to recent VATS. Similarly there is air andsmall volume fluid along the left fissure, also likely secondary to recentVATS. No pericardial effusion. Lymph Nodes: No lymphadenopathy within the chest. Lungs: Left basilar atelectasis. Mediastinum: Right-sided PICC with tip in the right atrium. Chest Wall: No chest wall hematoma or contusion. Bones: No acute fracture within the chest. Multilevel degenerative changesof the thoracic spine. Abdomen: Liver/Gallbladder/Biliary System: The liver demonstrates homogeneousenhancement. Absent gallbladder. Redemonstrated intrahepatic andintrahepatic biliary ductal dilatation. Pneumobilia. Spleen: Postsurgical changes of splenectomy. Pancreas: Postsurgical changes of distal pancreatectomy. Intervalresolution of previously noted fluid collection adjacent to the pancreaticsuture margin. Interval decrease in size of fluid collection in the leftupper quadrant measuring up to 3.6 cm x 1.0 cm compared to 3.6 x 1.3 cm onprior (series 3, image 70). Adrenals: The adrenals are morphologically unremarkable. Kidneys: The kidneys demonstrate symmetric nephrogram and excretion.Multiple hypoattenuating lesions throughout the right kidney, too small tocharacterize but likely simple cysts. No renal or ureteral calculi. Nohydronephrosis. Bowel/Mesentery: The small bowel loops are not dilated. The large bowelloops are not dilated. The appendix is visualized and normal. Vessels/Lymph Nodes: The abdominal aorta is unremarkable. Nolymphadenopathy within the abdomen or pelvis. Fluid Survey: No free fluid in the abdomen. No free fluid in the pelvis. Pelvis: Large volume of urine in the bladder. Body Wall: Supraumbilical midline postsurgical scarring. Bones: No acute fracture within the abdomen or pelvis. IMPRESSION: No pulmonary embolism. Interval decrease in left pleural effusion, now small with air and fluidin left pleural space and tracking along the left fissure, likelypostsurgical changes of recent VATS procedure. 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 Large volume of urine in the bladder. CRITICAL RESULT: No. COMMUNICATION: Per this written report. Preliminary report signed by Octavio Anderson MD on 06/04/2025 5:47 AM By electronically signing this report, I, the attending physician, attsherrillthat I have personally reviewed the images/data for the aboveexamination(s) and agree with the final edited report. Drafted by Octavio Anderson MD on 06/04/2025 5:25 AM Final report signed by Zack Valencia MD on 06/04/2025 5:49 AM Nory Jaffe MD IMG CT PROCEDURES Final Result * CT Abdomen Pelvis w IV Contrast (06/04/2025 5:23 AM EST) Anatomical Region Laterality Modality Abdomen, Pelvis Computed Tomogra phy Impressions 06/04/2025 5:49 AM EST No pulmonary embolism. Interval decrease in left pleural effusion, now small with air and fluid in left pleural space and tracking along the left fissure, likely postsurgical changes of recent VATS procedure. Postsurgical changes of recent splenectomy and distal pancreatectomy with pneumobilia, interval resolution of previously noted fluid collection adjacent to the pancreatic suture margin, and interval decrease in size of fluid collection in left upper quadrant. Large volume of urine in the bladder. CRITICAL RESULT: No. COMMUNICATION: Per this written report. Preliminary report signed by Octavio Anderson MD on 06/04/2025 5:47 AM By electronically signing this report, I, the attending physician, attest that I have personally reviewed the images/data for the above examination(s) and agree with the final edited report. Drafted by Octavio Anderson MD on 06/04/2025 5:25 AM Final report signed by Zack Valencia MD on 06/04/2025 5:49 AM Narrative 06/04/2025 5:49 AM EST CLINICAL INDICATION: sob, recent immobilization TECHNIQUE: Imaging of the chest abdomen and pelvis was performed, from thoracic inlet through pubic symphysis, using spiral technique, following administration of IV contrast, Omnipaque 350, 100 mL according to the CT PE protocol and CT Abdomen/Pelvis protocol. Delayed (excretory phase) images were performed through the kidneys. Reformatted images in the coronal, sagittal, and oblique planes were generated from the axial data set to facilitate diagnostic accuracy. In addition, 3D images were created and reviewed. Total DLP (Dose-Length Product): 1474.75 mGy.cm (accession [id number]), 1474.75 mGy.cm (accession [id number]). Please note: The reported value represents the total of one or more individual components during the CT acquisition on this date and at this time, and as such, the same value may appear in more than one CT report depending on the interpreting/reporting physicians. COMPARISON: CT chest with contrast dated 05/22/2025 CT abdomen and pelvis with contrast dated 05/20/2025 FINDINGS: Chest: Pulmonary Arteries/Vessels: No pulmonary embolism. Pleural/Pericardial Space: Interval decrease in size of left pleural effusion, now small, with air noted within the pleural space, likely postsurgical changes related to recent VATS. Similarly there is air and small volume fluid along the left fissure, also likely secondary to recent VATS. No pericardial effusion. Lymph Nodes: No lymphadenopathy within the chest. Lungs: Left basilar atelectasis. Mediastinum: Right-sided PICC with tip in the right atrium. Chest Wall: No chest wall hematoma or contusion. Bones: No acute fracture within the chest. Multilevel degenerative changes of the thoracic spine. Abdomen: Liver/Gallbladder/Biliary System: The liver demonstrates homogeneous enhancement. Absent gallbladder. Redemonstrated intrahepatic and intrahepatic biliary ductal dilatation. Pneumobilia. Spleen: Postsurgical changes of splenectomy. Pancreas: Postsurgical changes of distal pancreatectomy. Interval resolution of previously noted fluid collection adjacent to the pancreatic suture margin. Interval decrease in size of fluid collection in the left upper quadrant measuring up to 3.6 cm x 1.0 cm compared to 3.6 x 1.3 cm on prior (series 3, image 70). Adrenals: The adrenals are morphologically unremarkable. Kidneys: The kidneys demonstrate symmetric nephrogram and excretion. Multiple hypoattenuating lesions throughout the right kidney, too small to characterize but likely simple cysts. No renal or ureteral calculi. No hydronephrosis. Bowel/Mesentery: The small bowel loops are not dilated. The large bowel loops are not dilated. The appendix is visualized and normal. Vessels/Lymph Nodes: The abdominal aorta is unremarkable. No lymphadenopathy within the abdomen or pelvis. Fluid Survey: No free fluid in the abdomen. No free fluid in the pelvis. Pelvis: Large volume of urine in the bladder. Body Wall: Supraumbilical midline postsurgical scarring. Bones: No acute fracture within the abdomen or pelvis. Procedure Note Zack Valencia MD - 06/04/2025 CLINICAL INDICATION: sob, recent immobilization TECHNIQUE: Imaging of the chest abdomen and pelvis was performed, from thoracic inletthrough pubic symphysis, using spiral technique, following administrationof IV contrast, Omnipaque 350, [address] mL according to the [address] PE protocol andCT Abdomen/Pelvis protocol. Delayed (excretory phase) images wereperformed through the kidneys. Reformatted images in the coronal,sagittal, and oblique planes were generated from the axial data set tofacilitate diagnostic accuracy. In addition, 3D images were created andreviewed. Total DLP (Dose-Length Product): 1474.75 mGy.cm (accession [id number]),1474.75 mGy.cm (accession [id number]). Please note: The reported valuerepresents the total of one or more individual components during the CTacquisition on this date and at this time, and as such, the same value mayappear in more than one CT report depending on the interpreting/reportingphysicians. COMPARISON: CT chest with contrast dated 05/22/2025 CT abdomen and pelvis with contrast dated 05/20/2025 FINDINGS: Chest: Pulmonary Arteries/Vessels: No pulmonary embolism. Pleural/Pericardial Space: Interval decrease in size of left pleuraleffusion, now small, with air noted within the pleural space, likelypostsurgical changes related to recent VATS. Similarly there is air andsmall volume fluid along the left fissure, also likely secondary to recentVATS. No pericardial effusion. Lymph Nodes: No lymphadenopathy within the chest. Lungs: Left basilar atelectasis. Mediastinum: Right-sided PICC with tip in the right atrium. Chest Wall: No chest wall hematoma or contusion. Bones: No acute fracture within the chest. Multilevel degenerative changesof the thoracic spine. Abdomen: Liver/Gallbladder/Biliary System: The liver demonstrates homogeneousenhancement. Absent gallbladder. Redemonstrated intrahepatic andintrahepatic biliary ductal dilatation. Pneumobilia. Spleen: Postsurgical changes of splenectomy. Pancreas: Postsurgical changes of distal pancreatectomy. Intervalresolution of previously noted fluid collection adjacent to the pancreaticsuture margin. Interval decrease in size of fluid collection in the leftupper quadrant measuring up to 3.6 cm x 1.0 cm compared to 3.6 x 1.3 cm onprior (series 3, image 70). Adrenals: The adrenals are morphologically unremarkable. Kidneys: The kidneys demonstrate symmetric nephrogram and excretion.Multiple hypoattenuating lesions throughout the right kidney, too small tocharacterize but likely simple cysts. No renal or ureteral calculi. Nohydronephrosis. Bowel/Mesentery: The small bowel loops are not dilated. The large bowelloops are not dilated. The appendix is visualized and normal. Vessels/Lymph Nodes: The abdominal aorta is unremarkable. Nolymphadenopathy within the abdomen or pelvis. Fluid Survey: No free fluid in the abdomen. No free fluid in the pelvis. Pelvis: Large volume of urine in the bladder. Body Wall: Supraumbilical midline postsurgical scarring. Bones: No acute fracture within the abdomen or pelvis. IMPRESSION: No pulmonary embolism. Interval decrease in left pleural effusion, now small with air and fluidin left pleural space and tracking along the left fissure, likelypostsurgical changes of recent VATS procedure. 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 Large volume of urine in the bladder. CRITICAL RESULT: No. COMMUNICATION: Per this written report. Preliminary report signed by Octavio Anderson MD on 06/04/2025 5:47 AM By electronically signing this report, I, the attending physician, attestthat I have personally reviewed the images/data for the aboveexamination(s) and agree with the final edited report. Drafted by Octavio Anderson MD on 06/04/2025 5:25 AM Final report signed by Zack Valencia MD on 06/04/2025 5:49 AM us Nory Jaffe MD IMG CT PROCEDURES Final Result * Light Blue Top (06/04/2025 4:31 AM EST) Pathologist [facility] Extra Hold for add-ons 06/04/2025 7:01 AM EST [facility] Comment:Auto resulted. Blood Venous blood specimen / Unknown 06/04/2025 4:31 AM EST 06/04/2025 4:43 AM EST us Nory Jaffe MD LAB BLOOD ORDERABLES Final Resu lt Performing Organization Address [facility]/ZIP Co de Phone Number [address] [address] * (ABNORMAL) C-Reactive protein (06/04/2025 4:31 AM EST) Pathologist [facility] CRP, Plasma 56.5(H) <=8.0 mg/L 06/04/2025 5:26 AM EST [facility] Blood Venous blood specimen / Unknown Venipuncture / Unknown 06/04/2025 4:31 AM EST 06/04/2025 4:57 AM EST Narrative [facility] - 06/04/2025 5:26 AM EST This CRP test is appropriate for assessment of infection, systemic inflammation and/or tissue injury. To assess cardiovascular disease risk order high sensitivity CRP (CRPH). us Nory Jaffe MD LAB BLOOD ORDERABLES Final Resu lt Performing Organization Address City/[facility]/ZIP Co de Phone Number [facility] [address] [place] [address] * Lactic acid, venous (06/04/2025 4:31 AM EST) Lactate, Venous, Whole Blood 1.2 0.5 - 2.2 mmol/L LAB HEMATOLOGY METHOD 06/04/2025 4:51 AM EST [facility] Blood Venous blood specimen / Unknown Venipuncture / Unknown 06/04/2025 4:31 AM EST 06/04/2025 4:43 AM EST Nory Jaffe MD LAB BLOOD ORDERABLES Final Resu lt [facility] [address] [place] [address] * (ABNORMAL) Lipase (06/04/2025 4:31 AM EST) Lipase, Plasma 18(L) 19 - 63 U/L 06/04/2025 5:26 AM EST [facility] Blood Venous blood specimen / Unknown Venipuncture / Unknown 06/04/2025 4:31 AM EST 06/04/2025 4:57 AM EST Nory Jaffe MD LAB BLOOD ORDERABLES Final Resu lt [facility] [address] [place] [address] * Phosphorus (06/04/2025 4:31 AM EST) Phosphorus, Plasma 3.1 2.5 - 4.5 mg/dL 06/04/2025 5:26 AM EST [facility] Blood Venous blood specimen / Unknown Venipuncture / Unknown 06/04/2025 4:31 AM EST 06/04/2025 4:57 AM EST Nory Jaffe MD LAB BLOOD ORDERABLES Final Resu lt [facility] [address] [place] [address] * Magnesium (06/04/2025 4:31 AM EST) Magnesium, Plasma 1.9 1.9 - 2.4 mg/dL 06/04/2025 5:26 AM EST [facility] Blood Venous blood specimen / Unknown Venipuncture / Unknown 06/04/2025 4:31 AM EST 06/04/2025 4:57 AM EST Nory Jaffe MD LAB BLOOD ORDERABLES Final Resu lt [facility] [address] [place] [address] * (ABNORMAL) CMP (06/04/2025 4:31 AM EST) Glucose, Plasma 216(H) 74 - 99 mg/dL 06/04/2025 5:26 AM EST [facility] BUN, Plasma 16 8 - 23 mg/dL 06/04/2025 5:26 AM EST [facility] Creatinine, Plasma 0.48(L) 0.60 - 1.10 mg/dL 06/04/2025 5:26 AM EST [facility] BUN/Creatinine Ratio 33 06/04/2025 5:26 AM EST [facility] Sodium, Plasma 137 136 - 145 mmol/L 06/04/2025 5:26 AM EST [facility] Potassium, Plasma 4.4 3.6 - 4.9 mmol/L 06/04/2025 5:26 AM EST [facility] Chloride, Plasma 103 97 - 107 mmol/L 06/04/2025 5:26 AM EST [facility] CO2, Plasma 24 22 - 29 mmol/L 06/04/2025 5:26 AM EST [facility] Anion Gap 10 6 - 16 mmol/L 06/04/2025 5:26 AM EST [facility] Total Calcium, Plasma 8.4(L) 8.9 - 10.2 mg/dL 06/04/2025 5:26 AM EST [facility] Total Protein 7.2 6.3 - 7.9 g/dL 06/04/2025 5:26 AM EST [facility] Albumin, Plasma 2.4(L) 3.5 - 5.2 g/dL 06/04/2025 5:26 AM EST [facility] AST, Plasma 24 10 - 35 U/L 06/04/2025 5:26 AM EST [facility] ALT, Plasma 21 10 - 35 U/L 06/04/2025 5:26 AM EST [facility] Alkaline Phosphatase, Plasma 104 46 - 142 U/L 06/04/2025 5:26 AM EST [facility] Total Bilirubin, Plasma 0.2 0.2 - 1.1 mg/dL 06/04/2025 5:26 AM EST [facility] eGFRcr 101.4 mL/min/1.7 3m*2 06/04/2025 5:26 AM EST [facility] Comment:Reported eGFRcr in m L/min/1.73m2 is based the CKD-EPI 2020 equation that does not use a race coefficient. Blood Venous blood specimen / Unknown Venipuncture / Unknown 06/04/2025 4:31 AM EST 06/04/2025 4:57 AM EST us Nory Jaffe MD LAB BLOOD ORDERABLES Final Resu lt [facility] [address] [place] [address] * (ABNORMAL) CBC w/diff (06/04/2025 4:31 AM EST) WBC Count 8.32 3.70 - 10.30 10*3/uL LAB HEMATOLOGY METHOD 06/04/2025 5:10 AM EST [facility] RBC Count 3.19(L) 3.90 - 5.20 10*6/uL LAB HEMATOLOGY METHOD 06/04/2025 5:10 AM EST [facility] HGB 9.4(L) 11.2 - 15.7 g/dL LAB HEMATOLOGY METHOD 06/04/2025 5:10 AM EST [facility] HCT 29.1(L) 34.0 - 45.0 % LAB HEMATOLOGY METHOD 06/04/2025 5:10 AM EST [facility] Platelet Count 637(H) 155 - 369 10*3/uL LAB HEMATOLOGY METHOD 06/04/2025 5:10 AM [facility] MCV 91 79 - 98 fL LAB HEMATOLOGY METHOD 06/04/2025 5:10 AM [facility] MCH 29.5 26.0 - 32.0 pg LAB HEMATOLOGY METHOD 06/04/2025 5:10 AM [facility] MCHC 32.3 30.7 - 35.5 g/dL LAB HEMATOLOGY METHOD 06/04/2025 5:10 AM [facility] RDW 16.1(H) 11.5 - 14.5 % LAB HEMATOLOGY METHOD 06/04/2025 5:10 AM [facility] MPV 9.6 8.8 - 12.5 fL LAB HEMATOLOGY METHOD 06/04/2025 5:10 AM [facility] nRBC 0.0 <=0.0 per 100 WBCs LAB HEMATOLOGY METHOD 06/04/2025 5:10 AM [facility] Differential Type Automated LAB HEMATOLOGY METHOD 06/04/2025 5:10 AM [facility] Neutrophils % 58 % LAB HEMATOLOGY METHOD 06/04/2025 5:10 AM [facility] Lymphocytes % 20 % LAB HEMATOLOGY METHOD 06/04/2025 5:10 AM [facility] Monocytes % 17 % LAB HEMATOLOGY METHOD 06/04/2025 5:10 AM [facility] Eosinophils % 3 % LAB HEMATOLOGY METHOD 06/04/2025 5:10 AM [facility] Basophils % 1 % LAB HEMATOLOGY METHOD 06/04/2025 5:10 AM [facility] Immature Granulocytes % 1 % LAB HEMATOLOGY METHOD 06/04/2025 5:10 AM [facility] Neutrophils Absolute 4.94 1.60 - 6.10 10*3/uL LAB HEMATOLOGY METHOD 06/04/2025 5:10 AM [facility] Lymphocytes Absolute 1.68 1.20 - 3.90 10*3/uL LAB HEMATOLOGY METHOD 06/04/2025 5:10 AM [facility] Monocytes Absolute 1.37(H) 0.30 - 0.90 10*3/uL LAB HEMATOLOGY METHOD 06/04/2025 5:10 AM [facility] Eosinophils Absolute 0.25 0.00 - 0.50 10*3/uL LAB HEMATOLOGY METHOD 06/04/2025 5:10 AM EST [facility] Basophils Absolute 0.04 0.00 - 0.10 10*3/uL LAB HEMATOLOGY METHOD 06/04/2025 5:10 AM EST [facility] Immature Granulocytes Absolute 0.04 0.00 - 0.06 10*3/uL LAB HEMATOLOGY METHOD 06/04/2025 5:10 AM EST [facility] Blood Venous blood specimen / Unknown Venipuncture / Unknown 06/04/2025 4:31 AM EST 06/04/2025 4:43 AM EST Narrative [facility] - 06/04/2025 5:10 AM EST Therapeutic decision making should be based on absolute values, rather than percentages. us Nory Jaffe MD LAB BLOOD ORDERABLES Final Resu lt [facility] [address] [place] [address] * XR Chest 1 View (06/04/2025 4:09 AM EST) Anatomical Region Laterality Modality Chest Digital Radiogra phy Impressions 06/04/2025 4:14 AM EST Similar small left pleural effusion and left basilar opacities. Right-sided PICC with tip in the right atrium similar to prior. CRITICAL RESULT: No. COMMUNICATION: Per this written report. Preliminary report signed by Octavio Anderson MD on 06/04/2025 4:13 AM By electronically signing this report, I, the attending physician, attest that I have personally reviewed the images/data for the above examination(s) and agree with the final edited report. Drafted by Octavio Anderson MD on 06/04/2025 4:10 AM Final report signed by Zack Valencia MD on 06/04/2025 4:14 AM Narrative 06/04/2025 4:14 AM EST CLINICAL INDICATION: sob TECHNIQUE: XR CHEST 1 VIEW COMPARISON: Chest radiograph dated 06/01/2025 FINDINGS: Right-sided PICC with tip in the right atrium similar to prior. Similar small left pleural effusion and left basilar opacities. No new airspace consolidation. Heart and mediastinal contours are within normal limits. No pneumothorax. No acute osseous findings. Procedure Note Zack Valencia MD - 06/04/2025 CLINICAL INDICATION: sob TECHNIQUE: XR CHEST 1 VIEW COMPARISON: Chest radiograph dated 06/01/2025 FINDINGS: Right-sided PICC with tip in the right atrium similar to prior. Similarsmall left pleural effusion and left basilar opacities. No new airspaceconsolidation. Heart and mediastinal contours are within normal limits. Nopneumothorax. No acute osseous findings. IMPRESSION: Similar small left pleural effusion and left basilar opacities. Right-sided PICC with tip in the right atrium similar to prior. CRITICAL RESULT: No. COMMUNICATION: Per this written report. Preliminary report signed by Octavio Anderson MD on 06/04/2025 4:13 AM By electronically signing this report, I, the attending physician, attestthat I have personally reviewed the images/data for the aboveexamination(s) and agree with the final edited report. Drafted by Octavio Anderson MD on 06/04/2025 4:10 AM Final report signed by Zack Valencia MD on 06/04/2025 4:14 AM us Nory Jaffe MD IMG XR PROCEDURES Final Result * EKG now - STAT (adult) (06/04/2025 3:30 AM EST) EKG DIAGNOSIS CLASS Abnormal MUSE ECG Ventricular Rate 101 BPM MUSE ECG Atrial Rate 101 BPM MUSE ECG OH Interval 154 ms MUSE ECG QRSD Interval 72 ms MUSE ECG QT Interval 346 ms MUSE ECG QTC Interval 448 ms MUSE ECG P Peerless 76 degrees MUSE ECG R Peerless 6 degrees MUSE ECG T Wave Peerless 55 degrees MUSE ECG Diagnosis Sinus tachycardia with premature atrial complexes MUSE ECG Diagnosis Low voltage QRS MUSE ECG Diagnosis Cannot rule out Anterior infarct , age undetermined MUSE ECG Diagnosis Abnormal ECG MUSE ECG Diagnosis MUSE ECG Diagnosis Confirmed by Masood Land ([id number]) on 06/04/2025 8:59:21 AM MUSE ECG 06/04/2025 3:30 AM EST 06/04/2025 8:59 AM EST us Nory Jaffe MD ECG ORDERABLES Final Result MUSE ECG documented in this encounter Visit Diagnoses Diagnosis Shortness of breath- Primary Nausea Nausea alone documented in this encounter Administered Medications Inactive Administered Medications - up to 3 most recent administrations Medication Order MAR Action Action Date Dose Rate Site HYDROmorphone (Dilaudid) injection 1 mg 1 mg, Intravenous, Once, 1 dose, On Mon06/04/25 at 0420, Routine Given 06/04/2025 4:34 AM EST 1 mg iohexol (OMNIPaque) 350 MG/ML injection 100 mL 100 mL, Intravenous, Once in imaging, 1 dose, Starting on Mon06/04/25 at 0505, Until Mon06/04/25 at 0505, Routine, Imaging Protocol Orders Given 06/04/2025 5:05 AM EST 100 mL ondansetron (Zofran) injection 4 mg 4 mg, Intravenous, Once, 1 dose, On Mon06/04/25 at 0355, STAT Given 06/04/2025 4:33 AM EST 4 mg documented in this encounter Active and Recently Administered Medications Times are shown in EST. Scheduled Medication Order 06/02/2025 06/03/2025 06/04/2025 HYDROmorphone (Dilaudid) injection 1 mg (COMPLETED) 1 mg, Intravenous, Once, 1 dose, On Mon06/04/25 at 0420, Routine 0434 (Given - Provid er: Sarah Giraldo) iohexol (OMNIPaque) 350 MG/ML injection 100 mL (COMPLETED) 100 mL, Intravenous, Once in imaging, 1 dose, Starting on Mon06/04/25 at 0505, Until Mon06/04/25 at 0505, Routine, Imaging Protocol Orders 0505 (Given - Provid er: Marcos Landa) ondansetron (Zofran) injection 4 mg (COMPLETED) 4 mg, Intravenous, Once, 1 dose, On Mon06/04/25 at 0355, STAT 0433 (Given - Provid er: Sarah Giraldo) documented in this encounter Additional Health Concerns [...] documented as of this encounter Care Teams Graphic Manager Relationship Specialty Start Date End Date Golden Newell MD [address] [place] [address] PCP - General 12/04/20 documented as of this encounter
[2025-06-06] VITALS (7 sets, daily range): BP systolic 156–164; BP diastolic 76–95; PULSE 98–114; RESP 16; TEMP 37; O2SAT 96–97; BMI 26.1
--- NOTE | 2025-06-06 22:04 | ED_ITS ---
Discharge Plan Disposition Patient Disposition: Xfer Short-Term Hosp Prescriptions Prescriptions: No Action omeprazole 40 mg capsule,delayed release(DR/EC) 40 mg PO DAILY aspirin 81 mg tablet,delayed release (DR/EC) 81 mg PO DAILY atorvastatin 80 mg tablet 80 mg PO DAILY Referrals Follow up/Referrals: Selene Foster PA [Primary Care Provider, Medical] - See instructions Clinical Impressions Clinical Impression: Pulmonary embolism of right lower lobe, Pleural effusion, Nausea, Decreased oral intake Print Language Print Language: Uzbek Discharge ED Provider: Emily Mcneal General Adult HPI <Emily Mcneal DO - Last Filed: 06/07/25 01:05> General Chief complaint: Nausea/Vomiting/Diarrhea Stated complaint: Shaking & vomiting, has picc line Time Seen by Provider: 06/06/25 22:04 History of Present Illness HPI narrative: Patient is a 69-year-old female with a past medical history of complex abdominal surgery at [facility] in February for her pancreas who is currently on daily TPN who presents to the emergency department with concerns for feeling shaky and having significant nausea. Patient states that she was recently seen at on Monday had a workup done and patient was discharged at that time. states that patient is continuing to have the same symptoms and is what brought her in today. Patient states that she has been on TPN since her prior surgery. Patient denies any fevers. Patient denies any chest pain or shortness of breath. Patient denies any significant abdominal pain but does report some mild epigastric pain. Patient states that she was sent home on Zofran. Nausea has continued. Related Data Home Medications ?Medication ?Instructions ?Recorded ?Confirmed aspirin 81 mg tablet,delayed 81 mg PO DAILY 08/01/22 0 09/30/24 release atorvastatin 80 mg tablet 80 mg PO DAILY 08/01/2201/17 omeprazole 40 mg capsule,delayed 40 mg PO DAILY 09/30/24 release Allergies Allergy/AdvReac Type Severity Reaction Status Date / Time No Known Allergies Allergy Verified 01/27/25 19:08 [facility] <Emily Mcneal DO - Last Filed: 06/07/25 01:05> [facility] Disclaimer: The information contained in this section may have been updated after the patient was seen, as this information can be updated by other users. Medical History Dizziness First noticed following previous stroke. Cardiac work up so far negative for PAF but she has LVH and traces of Tricuspide regurgitation, (increased risk for PAF). LICO screen positive, SS-A: 6.8, (H), anticardiolipin IgA: 12, (H). Rheumatology referral requested 11/01/2022. Bradycardia Cryptogenic stroke On aspirin for secondary stroke prevention Family History Other Hypertension Social History Smoking Status: Never smoker alcohol intake: never substance use type: denies use current occupational status: retired Travel in the last 8 weeks?: None household members: spouse housing: house marital status: Have you lived/traveled outside [place] in past 30 days?: No Contact w/someone who lives/traveled outside US past 30 days?: No Exposure to someone with infectious disease in past 14 days?: No Do you have a fever (greater than 100.4 F or 38 C)?: No Have you tested positive for COVID-19?: No Exposed to someone with COVID-19 in past 14 days?: No Do you have a sore throat?: No Do you have a cough?: No Do you have any weakness?: No Do you have any diarrhea?: No Are you experiencing any unusual bleeding?: No Do you have any muscle aches/pain?: No Do you have any abdominal pain?: No Are you experiencing loss of taste or smell?: No Other Medical History Have you received the Flu Vaccine for this season: Yes Have you received the Pneumonia Vaccine: Yes <Emily Mcneal, - Last Filed: 06/07/25 01:05> ROS Obtained: Yes All systems reviewed & no additional complaints except as documented and Yes Systems reviewed as appropriate & no additional complaints except as documented Physical Exam <Emily Mcneal DO - Last Filed: 06/07/25 01:05> General General appearance: alert and in no apparent distress Head Head exam: atraumatic, normocephalic and normal inspection Eye Eye exam: Present normal appearance, PERRL and EOMI; Absent scleral icterus ENT ENT exam: Present normal exam and normal external ear exam Neck Neck exam: Present normal inspection and full ROM Chest Chest inspection: Present normal inspection and symmetric chest wall rise Respiratory Respiratory exam: Present normal lung sounds bilaterally; Absent respiratory distress or wheezes Cardiovascular Cardiovascular exam: Present regular rate, normal rhythm and normal heart sounds Abdominal Exam Abdominal exam: Present soft, distention and tenderness (mild epigastric); Absent guarding or rebound Extremities Exam Extremities exam: Present normal inspection and full ROM Back Exam Back exam: Present normal inspection and full ROM Neurological Exam Neurological exam: Present alert and oriented X3 Psychiatric Psychiatric exam: Present normal affect and normal mood Skin Skin exam: Present warm and dry Medical Decision Making <Emily Mcneal, DO - Last Filed: 06/07/25 01:05> Medical Records Medical records reviewed: Yes I reviewed the patient's medical records. Screening: Per USPSTF and CDC recommendations, given the prevalence of disease in our region, it is our hospital?s policy to screen for HIV and viral Hepatitis for all patients aged 18 and over and those with ongoing risk factors. Oziel Inquiry Pt receiving controlled substance: No Vital Signs: 06/06/25 22:14 06/06/25 22:36 06/06/25 22:45 Temperature 98.6 F Temperature Source Oral Pulse Rate 100 H 98 H Pulse Rate [Left Radial] 107 H Respiratory Rate 16 Blood Pressure Blood Pressure [Left Arm] 164/95 H Blood Pressure Mean Blood Pressure Mean [Left Arm] 118 Blood Pressure Source [Left Arm] Automatic Cuff Blood Pressure Position [Left Arm] Supine 02 Sat by Pulse Oximetry 96 96 97 Oxygen Delivery Method Room Air Room Air Room Air 06/06/25 23:00 06/06/25 23:00 06/06/25 23:15 Temperature Temperature Source Pulse Rate 100 H 114 H Pulse Rate [Left Radial] Respiratory Rate Blood Pressure 162/76 H Blood Pressure [Left Arm] Blood Pressure Mean 106 Blood Pressure Mean [Left Arm] Blood Pressure Source [Left Arm] Blood Pressure Position [Left Arm] 02 Sat by Pulse Oximetry 97 97 Oxygen Delivery Method Room Air Room Air 06/06/25 23:30 06/06/25 23:30 06/06/25 23:45 Temperature Temperature Source Pulse Rate 109 H 110 H Pulse Rate [Left Radial] Respiratory Rate Blood Pressure 156/91 H Blood Pressure [Left Arm] Blood Pressure Mean 107 Blood Pressure Mean [Left Arm] Blood Pressure Source [Left Arm] Blood Pressure Position [Left Arm] 02 Sat by Pulse Oximetry 96 97 Oxygen Delivery Method Room Air Room Air 06/07/25 01:18 06/07/25 01:19 06/07/25 01:30 Temperature Temperature Source Pulse Rate 110 H Pulse Rate [Left Radial] Respiratory Rate Blood Pressure 136/75 152/82 H Blood Pressure [Left Arm] Blood Pressure Mean 95 99 Blood Pressure Mean [Left Arm] Blood Pressure Source [Left Arm] Blood Pressure Position [Left Arm] 02 Sat by Pulse Oximetry 94 L 97 Oxygen Delivery Method Room Air 06/07/25 01:30 06/07/25 01:45 06/07/25 02:00 Temperature Temperature Source Pulse Rate 110 H 107 H Pulse Rate [Left Radial] Respiratory Rate Blood Pressure 151/80 H Blood Pressure [Left Arm] Blood Pressure Mean 103 Blood Pressure Mean [Left Arm] Blood Pressure Source [Left Arm] Blood Pressure Position [Left Arm] 02 Sat by Pulse Oximetry 97 96 Oxygen Delivery Method 06/07/25 02:30 06/07/25 02:47 Temperature Temperature Source Pulse Rate 105 H 105 H Pulse Rate [Left Radial] Respiratory Rate Blood Pressure 139/84 Blood Pressure [Left Arm] Blood Pressure Mean 101 Blood Pressure Mean [Left Arm] Blood Pressure Source [Left Arm] Blood Pressure Position [Left Arm] 02 Sat by Pulse Oximetry 96 97 Oxygen Delivery Method Room Air Lab Data Lab results reviewed: Yes I reviewed the patient's lab results. Lab Results 06/06/25 22:45: WBC 10.1, RBC 3.35 L, Hgb 9.7 L, Hct 29.5 L, MCV 88.1, MCH 29.0, MCHC 32.9, RDW 16.1, Plt Count 578 H, MPV 9.6, Neut % (Auto) 65.3, Lymph % (Auto) 22.3, Rains % (Auto) 10.5 H, Eos % (Auto) 1.4, Baso % (Auto) 0.2, Neut # (Auto) 6.6, Lymph # (Auto) 2.3, Rains # (Auto) 1.1 H, Eos # (Auto) 0.1, Baso # (Auto) 0.0, Sodium 136, Potassium 4.1, Chloride 103, Carbon Dioxide 25, Anion Gap 12.1, BUN 18 H, Creatinine 0.50 L, Estimated Creat Clear 56, Estimated GFR 122, Est GFR ( Amer) 147, Glucose 155 H, Lactate 1.0, Calcium 8.1 L, Phosphorus 3.5, Magnesium 1.8, Total Bilirubin 0.3, AST 34, ALT 22, Alkaline Phosphatase 115, Total Creatine Kinase < 20 L, Troponin I < 0.01, Total Protein 7.7, Albumin 3.2 L, Globulin 4.5 H, Albumin/Globulin Ratio 0.7 L, Lipase 37, HCV Ab MYLES w/Rflx PCR Qn Negative, HIV Ag/Ab Combo Qual Negative 06/06/25 23:35: SARS-CoV-2 (PCR) Not detected, Influenza Type A (PCR) Not detected, Influenza Type B (PCR) Not detected, RSV (PCR) Not detected, Rhinovirus (PCR) Not detected 06/07/25 00:00: APTT 23.0 L 06/07/25 01:00: Urine Color Yellow, Urine Appearance Clear, Urine pH 6.5, Ur Specific Clements 1.015, Urine Protein Negative, Urine Glucose (UA) Negative, Urine Ketones Negative, Urine Blood 1+ A, Urine Nitrate Negative, Urine Bilirubin Negative, Urine Urobilinogen 0.2, Ur Leukocyte Esterase Negative, Urine RBC 3-5, Urine WBC None, Ur Squamous Epith Cells Occasional, Urine Bacteria None 06/07/25 01:56: Troponin I < 0.01 06/06/25 22:45 06/06/25 22:45 Orders (Tests/Meds): ED MEDICATIONS Generic Name Dose Route Start Last Admin Trade Name Freq PRN Reason Stop Dose Admin Heparin Sodium/Dextrose 500 mls @ 24 mls/hr 06/07/25 01:30 06/07/25 02:14 Heparin 25,000 Units In D5w 500ml Premix IV 07/07/25 01:29 1,200 units/hr .[id number] 24 mls/hr 1,200 UNITS/HR Administration Miscellaneous 1 each 06/07/25 01:15 06/07/25 02:57 Heparin Drip Consult NOTAPPLIC 07/07/25 01:14 Not Given CONSULT PHARMACY KHUSHI Sodium Chloride 10 ml 06/06/25 23:54 06/06/25 23:55 Sodium Chloride 0.9% 10ml Syr (Rad Only) IV 07/06/25 23:53 10 ml NEEDED PRN Administration Maintain IV Site Discontinued Medications Generic Name Dose Route Start Last Admin Trade Name Freq PRN Reason Stop Dose Admin Heparin Sodium (Porcine) 5,500 unit 06/07/25 01:30 06/07/25 02:14 Heparin Sodium 5,000 Unit/Ml Vial IV 06/07/25 01:31 5,500 unit ONCE ONE Administration Hydromorphone HCl 0.25 mg 06/07/25 00:17 06/07/25 00:25 Hydromorphone 2mg/Ml Syringe IV 06/07/25 00:18 0.25 mg ONCE ONE Administration Iopamidol 75 ml 06/06/25 23:54 06/06/25 23:56 Iopamidol-370 (76%);100ml Bottle IV 06/06/25 23:55 75 ml ONCE ONE Administration Morphine Sulfate 4 mg 06/06/25 23:28 06/06/25 23:47 Morphine 4mg/Ml Syringe IV 06/06/25 23:29 Not Given ONCE ONE Ondansetron HCl 4 mg 06/06/25 23:28 06/06/25 23:45 Ondansetron 4mg/2ml Vial IV 06/06/25 23:29 4 mg ONCE ONE Administration Prochlorperazine Edisylate 5 mg 06/06/25 22:15 06/06/25 22:52 Prochlorperazine 10mg/2ml Vial IV 06/06/25 22:16 5 mg ONCE ONE Administration Sodium Chloride 50 ml 06/06/25 23:54 06/06/25 23:56 0.9 % Sodium Chloride 50 Ml Vial IV 06/06/25 23:55 50 ml ONCE ONE Administration ORDERS Category Date Time Status CT abdomen pelvis w con Stat Cat Scan 06/06/25 22:[address] angio chest PE protocol Stat Cat Scan 06/06/25 22:14 Completed CBC w/Auto Diff [Complete Blood Count Auto Diff] Stat Lab 06/06/25 22:45 Completed CK [Creatine Kinase] Stat Lab 06/06/25 22:45 Completed CMP [Comprehensive Metabolic Panel] Stat Lab 06/06/25 22:45 Completed HIV Combo Stat Lab 06/06/25 22:45 Completed Heparin drip PTT [PTT Heparin (inpatient only)] Stat Lab 06/07/25 03:00 Ordered Hepatitis C Ab Qual. W/ RFX Stat Lab 06/06/25 22:45 Completed Lactic Acid Stat Lab 06/06/25 22:45 Completed Lipase Stat Lab 06/06/25 22:45 Completed MAG [Magnesium] Stat Lab 06/06/25 22:45 Completed Mini Respiratory Panel Stat Lab 06/06/25 23:35 Completed PHOS [Phosphorous] Stat Lab 06/06/25 22:45 Completed PTT Heparin (inpatient only) Stat Lab 06/07/25 00:00 Completed Trop I [Troponin I] Stat Lab 06/06/25 22:45 Completed Troponin I Q3H Lab 06/07/25 01:56 Completed Troponin I Q3H Lab 06/07/25 04:15 Ordered UA [Urinalysis and Microscopic] Stat Lab 06/07/25 01:00 Completed Blood Culture Stat Micro 06/06/25 23:26 Received Urine Culture Stat Micro 06/06/25 22:18 Received Medical Decision Narrative: Patient is a 69-year-old female with a complex abdominal surgical history at [facility] who presented to the emergency department with concern for persistent nausea. On arrival, patient was hemodynamically stable mildly tachycardic. Differential includes but not limited to: Pancreatitis, intra-abdominal abscess, enteritis, sepsis, bacteremia, dehydration, amongst others. On exam, patient had mild epigastric abdominal tenderness, exam was otherwise unremarkable. Patient's labs were reviewed and interpreted by myself: CBC showed no leukocytosis, hemoglobin was stable. CMP was unremarkable. CK was normal. Initial troponin less than 0.01. Lipase normal. UA pending. Patient was given Compazine and Dilaudid for pain control here in the emergency department. Patient typically takes oxycodone for pain medication at home and patient was sent with Zofran. Patient CT scan of the abdomen showed no acute findings. Patient CT of the chest showed concerns for some air and fluid possible empyema versus postthoracentesis findings. On reassessment, patient was feeling improved after the Compazine. At this time, we plan to discuss with [facility] to see if the lung findings are new versus chronic. Patient was signed out to the oncoming provider pending [facility] consult and final disposition. <Laura Rodriguez MD - Last Filed: 06/07/25 03:09> Vital Signs: 06/06/25 22:14 06/06/25 22:36 06/06/25 22:45 Temperature 98.6 F Temperature Source Oral Pulse Rate 100 H 98 H Pulse Rate [Left Radial] 107 H Respiratory Rate 16 Blood Pressure Blood Pressure [Left Arm] 164/95 H Blood Pressure Mean Blood Pressure Mean [Left Arm] 118 Blood Pressure Source [Left Arm] Automatic Cuff Blood Pressure Position [Left Arm] Supine 02 Sat by Pulse Oximetry 96 96 97 Oxygen Delivery Method Room Air Room Air Room Air 06/06/25 23:00 06/06/25 23:00 06/06/25 23:15 Temperature Temperature Source Pulse Rate 100 H 114 H Pulse Rate [Left Radial] Respiratory Rate Blood Pressure 162/76 H Blood Pressure [Left Arm] Blood Pressure Mean 106 Blood Pressure Mean [Left Arm] Blood Pressure Source [Left Arm] Blood Pressure Position [Left Arm] 02 Sat by Pulse Oximetry 97 97 Oxygen Delivery Method Room Air Room Air 06/06/25 23:30 06/06/25 23:30 06/06/25 23:45 Temperature Temperature Source Pulse Rate 109 H 110 H Pulse Rate [Left Radial] Respiratory Rate Blood Pressure 156/91 H Blood Pressure [Left Arm] Blood Pressure Mean 107 Blood Pressure Mean [Left Arm] Blood Pressure Source [Left Arm] Blood Pressure Position [Left Arm] 02 Sat by Pulse Oximetry 96 97 Oxygen Delivery Method Room Air Room Air 06/07/25 01:18 06/07/25 01:19 06/07/25 01:30 Temperature Temperature Source Pulse Rate 110 H Pulse Rate [Left Radial] Respiratory Rate Blood Pressure 136/75 152/82 H Blood Pressure [Left Arm] Blood Pressure Mean 95 99 Blood Pressure Mean [Left Arm] Blood Pressure Source [Left Arm] Blood Pressure Position [Left Arm] 02 Sat by Pulse Oximetry 94 L 97 Oxygen Delivery Method Room Air 06/07/25 01:30 06/07/25 01:45 06/07/25 02:00 Temperature Temperature Source Pulse Rate 110 H 107 H Pulse Rate [Left Radial] Respiratory Rate Blood Pressure 151/80 H Blood Pressure [Left Arm] Blood Pressure Mean 103 Blood Pressure Mean [Left Arm] Blood Pressure Source [Left Arm] Blood Pressure Position [Left Arm] 02 Sat by Pulse Oximetry 97 96 Oxygen Delivery Method 06/07/25 02:30 06/07/25 02:47 Temperature Temperature Source Pulse Rate 105 H 105 H Pulse Rate [Left Radial] Respiratory Rate Blood Pressure 139/84 Blood Pressure [Left Arm] Blood Pressure Mean 101 Blood Pressure Mean [Left Arm] Blood Pressure Source [Left Arm] Blood Pressure Position [Left Arm] 02 Sat by Pulse Oximetry 96 97 Oxygen Delivery Method Room Air Lab Data Lab Results 06/06/25 22:45: WBC 10.1, RBC 3.35 L, Hgb 9.7 L, Hct 29.5 L, MCV 88.1, MCH 29.0, MCHC 32.9, RDW 16.1, Plt Count 578 H, MPV 9.6, Neut % (Auto) 65.3, Lymph % (Auto) 22.3, Rains % (Auto) 10.5 H, Eos % (Auto) 1.4, Baso % (Auto) 0.2, Neut # (Auto) 6.6, Lymph # (Auto) 2.3, Rains # (Auto) 1.1 H, Eos # (Auto) 0.1, Baso # (Auto) 0.0, Sodium 136, Potassium 4.1, Chloride 103, Carbon Dioxide 25, Anion Gap 12.1, BUN 18 H, Creatinine 0.50 L, Estimated Creat Clear 56, Estimated GFR 122, Est GFR ( Amer) 147, Glucose 155 H, Lactate 1.0, Calcium 8.1 L, Phosphorus 3.5, Magnesium 1.8, Total Bilirubin 0.3, AST 34, ALT 22, Alkaline Phosphatase 115, Total Creatine Kinase < 20 L, Troponin I < 0.01, Total Protein 7.7, Albumin 3.2 L, Globulin 4.5 H, Albumin/Globulin Ratio 0.7 L, Lipase 37, HCV Ab MYLES w/Rflx PCR Qn Negative, HIV Ag/Ab Combo Qual Negative 06/06/25 23:35: SARS-CoV-2 (PCR) Not detected, Influenza Type A (PCR) Not detected, Influenza Type B (PCR) Not detected, RSV (PCR) Not detected, Rhinovirus (PCR) Not detected 06/07/25 00:00: APTT 23.0 L 06/07/25 01:00: Urine Color Yellow, Urine Appearance Clear, Urine pH 6.5, Ur Specific Clements 1.015, Urine Protein Negative, Urine Glucose (UA) Negative, Urine Ketones Negative, Urine Blood 1+ A, Urine Nitrate Negative, Urine Bilirubin Negative, Urine Urobilinogen 0.2, Ur Leukocyte Esterase Negative, Urine RBC 3-5, Urine WBC None, Ur Squamous Epith Cells Occasional, Urine Bacteria None 06/07/25 01:56: Troponin I < 0.01 Orders (Tests/Meds): ED MEDICATIONS Generic Name Dose Route Start Last Admin Trade Name Freq PRN Reason Stop Dose Admin Heparin Sodium/Dextrose 500 mls @ 24 mls/hr 06/07/25 01:30 06/07/25 02:14 Heparin 25,000 Units In D5w 500ml Premix IV 07/07/25 01:29 1,200 units/hr .[id number] 24 mls/hr 1,200 UNITS/HR Administration Miscellaneous 1 each 06/07/25 01:15 06/07/25 02:57 Heparin Drip Consult NOTAPPLIC 07/07/25 01:14 Not Given CONSULT PHARMACY KHUSHI Sodium Chloride 10 ml 06/06/25 23:54 06/06/25 23:55 Sodium Chloride 0.9% 10ml Syr (Rad Only) IV 07/06/25 23:53 10 ml NEEDED PRN Administration Maintain IV Site Discontinued Medications Generic Name Dose Route Start Last Admin Trade Name Freq PRN Reason Stop Dose Admin Heparin Sodium (Porcine) 5,500 unit 06/07/25 01:30 06/07/25 02:14 Heparin Sodium 5,000 Unit/Ml Vial IV 06/07/25 01:31 5,500 unit ONCE ONE Administration Hydromorphone HCl 0.25 mg 06/07/25 00:17 06/07/25 00:25 Hydromorphone 2mg/Ml Syringe IV 06/07/25 00:18 0.25 mg ONCE ONE Administration Iopamidol 75 ml 06/06/25 23:54 06/06/25 23:56 Iopamidol-370 (76%);100ml Bottle IV 06/06/25 23:55 75 ml ONCE ONE Administration Morphine Sulfate 4 mg 06/06/25 23:28 06/06/25 23:47 Morphine 4mg/Ml Syringe IV 06/06/25 23:29 Not Given ONCE ONE Ondansetron HCl 4 mg 06/06/25 23:28 06/06/25 23:45 Ondansetron 4mg/2ml Vial IV 06/06/25 23:29 4 mg ONCE ONE Administration Prochlorperazine Edisylate 5 mg 06/06/25 22:15 06/06/25 22:52 Prochlorperazine 10mg/2ml Vial IV 06/06/25 22:16 5 mg ONCE ONE Administration Sodium Chloride 50 ml 06/06/25 23:54 06/06/25 23:56 0.9 % Sodium Chloride 50 Ml Vial IV 06/06/25 23:55 50 ml ONCE ONE Administration ORDERS Category Date Time Status CT abdomen pelvis w con Stat Cat Scan 06/06/25 22:[address] angio chest PE protocol Stat Cat Scan 06/06/25 22:14 Completed CBC w/Auto Diff [Complete Blood Count Auto Diff] Stat Lab 06/06/25 22:45 Completed CK [Creatine Kinase] Stat Lab 06/06/25 22:45 Completed CMP [Comprehensive Metabolic Panel] Stat Lab 06/06/25 22:45 Completed HIV Combo Stat Lab 06/06/25 22:45 Completed Heparin drip PTT [PTT Heparin (inpatient only)] Stat Lab 06/07/25 03:00 Ordered Hepatitis C Ab Qual. W/ RFX Stat Lab 06/06/25 22:45 Completed Lactic Acid Stat Lab 06/06/25 22:45 Completed Lipase Stat Lab 06/06/25 22:45 Completed MAG [Magnesium] Stat Lab 06/06/25 22:45 Completed Mini Respiratory Panel Stat Lab 06/06/25 23:35 Completed PHOS [Phosphorous] Stat Lab 06/06/25 22:45 Completed PTT Heparin (inpatient only) Stat Lab 06/07/25 00:00 Completed Trop I [Troponin I] Stat Lab 06/06/25 22:45 Completed Troponin I Q3H Lab 06/07/25 01:56 Completed Troponin I Q3H Lab 06/07/25 04:15 Ordered UA [Urinalysis and Microscopic] Stat Lab 06/07/25 01:00 Completed Blood Culture Stat Micro 06/06/25 23:26 Received Urine Culture Stat Micro 06/06/25 22:18 Received Medical Decision Narrative: Patient is a 69-year-old female with a complex abdominal surgical history at [facility] who presented to the emergency department with concern for persistent nausea. On arrival, patient was hemodynamically stable mildly tachycardic. Differential includes but not limited to: Pancreatitis, intra-abdominal abscess, enteritis, sepsis, bacteremia, dehydration, amongst others. On exam, patient had mild epigastric abdominal tenderness, exam was otherwise unremarkable. Patient's labs were reviewed and interpreted by myself: CBC showed no leukocytosis, hemoglobin was stable. CMP was unremarkable. CK was normal. Initial troponin less than 0.01. Lipase normal. UA pending. Patient was given Compazine and Dilaudid for pain control here in the emergency department. Patient typically takes oxycodone for pain medication at home and patient was sent with Zofran. Patient CT scan of the abdomen showed no acute findings. Patient CT of the chest showed concerns for some air and fluid possible empyema versus postthoracentesis findings. On reassessment, patient was feeling improved after the Compazine. At this time, we plan to discuss with to see if the lung findings are new versus chronic. Patient was signed out to the oncoming provider pending [facility] consult and final disposition. Rodriguez: Upon my assumption of care patient is stable and resting more comfortably. She states her nausea has been reduced by the Compazine she received in the ER. I agree with the assessment and plan from Dr. Mcneal. We received a phone call from the reading radiologist that they had initially not commented on a newly identified right sided blood clot. There does not appear to be heart strain on CT and patient's troponin is negative. Patient has not been on blood thinners and does not have a history of known clot, this is a new finding. Because she is tachycardic and just generally is ill and comorbid as she is, I believe she needs to be treated inpatient with anticoagulation initially. Consulted pharmacy and spoke with pharmacist Tierney at [facility] who is helping dose the heparin bolus and drip. Patient was made aware of this. Awaiting a callback from at this time for consult due to the left lung abnormalities and questionable empyema and possible transfer. I received a callback from Dr. Ramon with the transfer center. She was able to review the CT imaging from Monday when the patient was evaluated there and at that time she did not have PE. It does appear that she had the abnormalities in the left lung but it is not clear to her either whether these abnormalities are changing, progressing, or if they are stable. Ultimately after discussion with her she graciously accepted this patient for transfer to [facility]. Awaiting transportation availability at this time. Patient remained in the ER receiving her heparin and continued monitoring while awaiting transportation. She has remained slightly tachycardic but otherwise hemodynamically stable, GCS 15. She was reassessed immediately prior to transfer and continues to be stable, GCS 15, protecting her airway, she is appropriate for transfer at this time. She was transferred in stable condition by [facility] ambulance. Critical Care <Emily Mcneal, DO - Last Filed: 06/07/25 01:05> Critical Care Time Critical Care Time: No
--- OUTSIDE RECORDS SUMMARY | 2025-06-06 22:11 | XMS_ITS ---
Author Organization Unknown Medications Date Medication Dosage DosageUnit StartDate StopDate StopReason Active DoseQuantity DoseUnit Dispense DispenseUnit Refills NdcCode DrugCode PharmacyId IsPrescription MappedMedication Srcstatus Custom 04/09 00:00 :00 Atorvastati n Calcium 80 MG Tablet 1 90 Tablet 0 [id number] P Unknown Status 08/29 00:00 :00 Vitamin B 12 500 MCG Tablet 1 30 [id number] Taking
--- OUTSIDE RECORDS SUMMARY | 2025-06-06 22:13 | XMS_ITS | Encounter Summary ---
Author Organization [facility] Address [address] [place] [address] Care Team Providers Care Wastewater Treatment Operator Name Role Phone Golden Newell MD Primary Care Provider [phone] Encounter Details Date Type Department Care Team (Latest Contact Info) Description 05/23/2025 Travel Social History Tobacco Use Types Packs/Day Years [...] any time in the past 12 m [facility], were you homeless or living in a retirement (including now)? No 05/14/2025 [facility] Utilities Answer Date Recorded In [...] documented as of this encounter Functional Status documented as of this encounter Mental Status * Question Answer Entry Date Author Precautions Environmental surveillance 05/23/2025 10: 00 PM EST Rylie Valentin RN documented in this encounter Plan of Treatment Upcoming Encounters Date Type Department Care Team (Late st Contact Info) Description 06/13/2025 10:00 AM EST Office Visit [facility] Multidisciplinary Oncology Clinic [address] [place] [address] Vibha Osborn, MULTI LINE CLAIMS ADJUSTER [address] [facility] [address] [place] [address] documented as of this encounter Goals Goal Patient Goal Type Associated Problems Recent Progress Patient-Stated? Author Autogenerat ed Goal Care Plan Autogenerated Problem No Jennifer Sabillon Autogenerat ed Goal Care Plan Autogenerated Problem No Lokesh [place] MD documented as of this encounter Visit Diagnoses Not on filedocumented in this encounter Additional Health Concerns Active Problems Noted Date Diagnosed Date Autogenerated Problem 12/19/2024 Autogenerated Problem 02/26/2025 Assessment Noted Time PHQ-9 Depression Total Score: 0 04/09/20 25 9:05 AM EDT A fall risk assessment has been complete d for the patient 04/30/2025 1:00 PM EST A Body Mass Index follow-up plan has been documented for the patient 06/02/2025 2:33 PM EST documented as of this encounter Care Teams Wastewater Treatment Operator Relationship Specialty Start Date End Date Golden Newell MD [address] [place] [address] PCP - General 12/04/20 documented as of this encounter
--- OUTSIDE RECORDS SUMMARY | 2025-06-06 22:13 | XMS_ITS | Encounter Summary ---
Author Organization [facility] Address [address] [place] [address] Care Team Providers Care Online Merchant Name Role Phone Golden Newell MD Primary Care Provider [phone] Encounter Details Date Type Department Care Team (Latest Contact Info) Description 05/24/2025 Travel Social History Tobacco Use Types Packs/Day [...] any time in the past 12 m [facility], were you homeless or living in a senior care (including now)? No 05/14/2025 [facility] Utilities Answer Date Recorded In the [...] Answer Entry Date Author Precautions Environmental surveillance 05/24/2025 10: 00 PM EST Rylie Valentin RN documented in this encounter Plan of Treatment Upcoming Encounters Date Type Department Care Team (Late st Contact Info) Description 06/13/2025 10:00 AM EST Office Visit [facility] Multidisciplinary Oncology Clinic [address] [place] [address] Vibha Osborn, LAMINATING MACHINE FEEDER [address] [facility] [address] [place] [address] documented as of this encounter Goals Goal [...] documented as of this encounter Care Teams Online Merchant Relationship Specialty Start Date End Date Golden Newell MD [address] [place] [address] PCP - General 12/04/20 documented as of this encounter
--- OUTSIDE RECORDS SUMMARY | 2025-06-06 22:13 | XMS_ITS | Encounter Summary ---
Author Organization [facility] Address [address] [place] [address] Care Team Providers Care Blast Furnace Helper Name Role Phone Golden Newell MD Primary Care Provider [phone] Encounter Details Date Type Department Care Team (Latest Contact Info) Description 05/21/2025 Travel Social History Tobacco Use Types Packs/Day [...] any time in the past 12 m [facility], were you homeless or living in a retirement (including now)? No 05/14/2025 [facility] Utilities Answer Date Recorded In [...] as of this encounter Functional Status * Question Answer Date of Assessment Author Robertson Environmental surveillance 05/21/2025 8:0 0 PM Luci Zepeda RN * Calculated C-SSRS Risk Score (Lifetime/Recent) Answer Date of Assessment Author No Risk Indicated 05/21/2025 8:00 PM Luci Brenner RN * Question Answer Date of Assessment Author 1. Wish to be (Past 1 Month) No 025 8:00 PM Luci Zepeda, AJ 2. Non-Specific Active Suici sathish Thoughts (Past 1 Month) No 05/21/2025 8:00 PM Torsten Zepeda RN 6. Suicidal Behavior (Lifetime) No 8:00 PM Luci Zepeda, AJ documented as of this encounter Mental Status * Question Answer Entry Date Author Robertson Environmental surveillance 05/21/2025 8:0 0 PM Luci Zepeda, AJ documented in this encounter Plan of Treatment Upcoming Encounters Date Type Department Care Team (Late st Contact Info) Description 06/13/2025 10:00 AM EST Office Visit [facility] [address] [place] [address] Vibha Osborn, BUSINESS LAW PROFESSOR [address] [place] [address] documented as of this encounter Goals Goal [...] documented as of this encounter Care Teams Blast Furnace Helper Relationship Specialty Start Date End Date Golden Newell MD [address] [facility] [address] [place], [place] [id number] PCP - General 12/04/20 documented as of this encounter
--- OUTSIDE RECORDS SUMMARY | 2025-06-06 22:13 | XMS_ITS | Encounter Summary ---
Author Organization [facility] Address [address] [place] [address] Care Team Providers Care Rn Referral Name Role Phone Golden Newell MD Primary Care Provider [phone] Encounter Details Date Type Department Care Team (Latest Contact Info) Description 05/27/2025 Travel Social History Tobacco Use Types Packs/Day [...] time in the past 12 m [facility], were you homeless or living in a long-term (including now)? No 05/14/2025 [facility] Utilities Answer Date Recorded In [...] of Assessment Author Precautions Environmental surveillance 05/27/2025 10: 00 PM Rylie Dean RN * Question Answer Date of Assessment Author Precautions Environmental surveillance 05/27/2025 10: 00 PM Rylie Dean RN * Calculated C-SSRS Risk [...] Entry Date Author Precautions Environmental surveillance 05/27/2025 10: 00 PM EST Rylie Valentin RN documented in this encounter Plan of Treatment Upcoming Encounters Date Type Department Care Team (Late st Contact Info) Description 06/13/2025 10:00 AM EST Office Visit [facility] [address] [place] [address] Vibha Osborn, INNOVATIONS PARAPROFESSIONAL [address] [place] [address] documented as of this encounter Goals Goal [...] documented as of this encounter Care Teams Rn Referral Relationship Specialty Start Date End Date Golden Newell MD [address] [address] PCP - General 12/04/20 documented as of this encounter
--- OUTSIDE RECORDS SUMMARY | 2025-06-06 22:13 | XMS_ITS | Encounter Summary ---
Author Organization [facility] Address [address] [place] [address] Care Team Providers Care Building Custodian Name Role Phone Golden Newell MD Primary Care Provider [phone] Encounter Details Date Type Department Care Team (Latest Contact Info) Description 05/20/2025 Travel Social History Tobacco Use Types Packs/Day [...] money to buy more. Never true 05/14/20 Within the past 12 months, t he [...] time in the past 12 m [facility], were you homeless or living in a senior living (including now)? No 05/14/2025 [facility] Utilities Answer Date Recorded In the [...] Date of Assessment Author Robertson Environmental surveillance 05/20/2025 8:0 0 PM Luci Zepeda RN * Calculated C-SSRS Risk Score (Lifetime/Recent) Answer Date of Assessment Author No Risk Indicated 05/20/2025 8:00 PM Luci Brenner RN * Question Answer Date of Assessment Author 1. Wish to be (Past 1 Month) No 025 8:00 PM Luci Zepeda, AJ 2. Non-Specific Active Suici sathish Thoughts (Past 1 Month) No 05/20/2025 8:00 PM Torsten Zepeda RN 6. Suicidal Behavior (Lifetime) No 8:00 PM Luci Zepeda, AJ documented as of this encounter Mental Status * Question Answer Entry Date Author Robertson Environmental surveillance 05/20/2025 8:0 0 PM Luci Zepeda, AJ documented in this encounter Plan of Treatment Upcoming Encounters Date Type Department Care Team (Late st Contact Info) Description 06/13/2025 10:00 AM EST Office Visit [facility] [address] [place] [address] Vibha Osborn, BINDING BENCH WORKER [address] [place] [address] documented as of this encounter Goals Goal [...] documented as of this encounter Care Teams Building Custodian Relationship Specialty Start Date End Date Golden Newell MD [address] [facility] [address] [place], [place] [id number] PCP - General 12/04/20 documented as of this encounter
--- OUTSIDE RECORDS SUMMARY | 2025-06-06 22:13 | XMS_ITS | Encounter Summary ---
Author Organization [facility] Address [address] [place] [address] Care Team Providers Care School Community Relations Coordinator Name Role Phone Golden Newell MD Primary Care Provider [phone] Encounter Details Date Type Department Care Team (Latest Contact Info) Description 05/22/2025 Travel Social History Tobacco Use Types Packs/Day [...] any time in the past 12 m [facility], were you homeless or living in a longterm (including now)? No 05/14/2025 [facility] Utilities Answer Date Recorded In the past [...] Date of Assessment Author Robertson Environmental surveillance 05/22/2025 10: 00 PM Rylie Dean RN * Calculated C-SSRS Risk Score (Lifetime/Recent) Answer Date of Assessment Author No Risk Indicated 05/22/2025 8:00 AM Ele Delgado RN * Question Answer Date of Assessment Author 1. Wish to be (Past 1 Month) No 025 8:00 AM Ele Delgado, AJ 2. Non-Specific Active Suici sathish Thoughts (Past 1 Month) No 05/22/2025 8:00 AM Ele Delgado, RN 6. Suicidal Behavior (Lifetime) No 8:00 AM Ele Delgado, AJ documented as of this encounter Mental Status * Question Answer Entry Date Author Robertson Environmental surveillance 05/22/2025 10: 00 PM Rylie Dean RN documented in this encounter Plan of Treatment Upcoming Encounters Date Type Department Care Team (Late st Contact Info) Description 06/13/2025 10:00 AM EST Office Visit [facility] [address] [place] [address] Vibha Osborn E, DIGITAL PERFORMANCE ANALYST [address] [place] [address] documented as of this encounter Goals Goal [...] documented as of this encounter Care Teams School Community Relations Coordinator Relationship Specialty Start Date End Date Golden Newell MD [address] [facility] [address] [place], [place] [id number] PCP - General 12/04/20 documented as of this encounter
--- OUTSIDE RECORDS SUMMARY | 2025-06-06 22:13 | XMS_ITS | Encounter Summary ---
Author Organization [facility] Address [address] [place] [address] Care Team Providers Care Neon Sign Servicer Name Role Phone Golden Newell MD Primary Care Provider [phone] Encounter Details Date Type Department Care Team (Latest Contact Info) Description 05/25/2025 Travel Social History Tobacco Use Types Packs/Day [...] any time in the past 12 m [facility], were you homeless or living in a nursing home (including now)? No 05/14/2025 [facility] Utilities Answer Date Recorded In the past [...] Answer Entry Date Author Precautions Environmental surveillance 05/25/2025 10: 00 PM EST Rylie Valentin RN documented in this encounter Plan of Treatment Upcoming Encounters Date Type Department Care Team (Late st Contact Info) Description 06/13/2025 10:00 AM EST Office Visit [facility] Multidisciplinary Oncology Clinic [address] [place] [address] Vibha Osborn, NEUROSURGEON [address] [facility] [address] [place] [address] documented as of this encounter Goals Goal [...] documented as of this encounter Care Teams Neon Sign Servicer Relationship Specialty Start Date End Date Golden Newell MD [address] [place] [address] PCP - General 12/04/20 documented as of this encounter
--- OUTSIDE RECORDS SUMMARY | 2025-06-06 22:13 | XMS_ITS | Encounter Summary ---
Author Organization [facility] Address [address] [place] [address] Care Team Providers Care Carton And Can Supply Supervisor Name Role Phone Golden Newell MD Primary Care Provider [phone] Encounter Details Date Type Department Care Team (Latest Contact Info) Description 05/26/2025 Travel Social History Tobacco Use Types Packs/Day [...] in the past 12 m [facility], were you homeless or living in a [place] [facility] care facility (including now)? No 05/14/2025 [facility] Utilities Answer Date Recorded In the [...] Date of Assessment Author Robertson Environmental surveillance 05/26/2025 10: 00 PM Rylie Dean RN * Calculated C-SSRS Risk Score (Lifetime/Recent) Answer Date of Assessment Author No Risk Indicated 05/26/2025 7:00 AM Ariane Warren RN * Question Answer Date of Assessment Author 1. Wish to be (Past 1 Month) No 05/26/2025 7:00 AM Ariane Quijano RN 2. Non-Specific Active Suicidal Thoughts (Past 1 Month) No 05/26/2025 7:00 AM Ariane Quijano RN 6. Suicidal Behavior (Lifetime) No 05/26/2025 7:00 AM Ariane Quijano RN documented as of this encounter Mental Status * Question Answer Entry Date Author Robertson Environmental surveillance 05/26/2025 10: 00 PM Rylie Dean RN documented in this encounter Plan of Treatment Upcoming Encounters Date Type Department Care Team (Late st Contact Info) Description 06/13/2025 10:00 AM EST Office Visit [facility] [address] [place] [address] Vibha Osborn, BUTTER FAT TESTER [address] [place] [address] documented as of this encounter Goals Goal [...] documented as of this encounter Care Teams Carton And Can Supply Supervisor Relationship Specialty Start Date End Date Golden Newell MD [address] [facility] [address] [place] [address] PCP - General 12/04/20 documented as of this encounter
--- NOTE | 2025-06-06 22:14 | CT_ITS ---
PROCEDURE INFORMATION: Exam: CTA Chest With Contrast Exam date and time: 06/06/2025 11:54 PM Age: 69 years old Clinical indication: Other: Weakness TECHNIQUE: Imaging protocol: Computed tomographic angiography of the chest with contrast. Exam focused on the arteries. 3D rendering (Not supervised by radiologist): MIP and/or 3D reconstructed images were created by the technologist. Radiation optimization: All CT scans at this facility use at least one of these dose optimization techniques: automated exposure control; mA and/or kV adjustment per patient size (includes targeted exams where dose is matched to clinical indication); or iterative reconstruction. Contrast material: ISOUVE 370; Contrast volume: 70 ml; Contrast route: INTRAVENOUS (IV); COMPARISON: CR XR CHEST PORTABLE 12/04/2020 7:55 PM FINDINGS: Pulmonary arteries: Normal. No pulmonary emboli. Aorta: Unremarkable. No aortic aneurysm. No aortic dissection. Lungs: Air and fluid at the left lung base, differential considerations include empyema and loculated pleural collection post thoracentesis, correlate clinically. Consolidation at the left lung base. Atelectasis versus pneumonia. Heart: Unremarkable. No cardiomegaly. No pericardial effusion. Lymph nodes: Mediastinal adenopathy with subcarinal node measuring up to 19 x 17 mm in size. Additional prominent lymph nodes bilateral hilum as well as anterior to the sabrina. Shotty nonspecific axillary nodes. Bones/joints: Unremarkable. No acute fracture. Soft tissues: Unremarkable. IMPRESSION: 1. Air and fluid at the left lung base, differential considerations include empyema and loculated pleural collection post thoracentesis, correlate clinically. 2. Consolidation at the left lung base. Atelectasis versus pneumonia.
--- NOTE | 2025-06-06 22:14 | CT_ITS ---
PROCEDURE INFORMATION: Exam: CT Abdomen And Pelvis With Contrast Exam date and time: 06/06/2025 11:54 PM Age: 69 years old Clinical indication: Abdominal pain; Additional info: Abdominal pain, on tpn TECHNIQUE: Imaging protocol: Computed tomography of the abdomen and pelvis with contrast. 3D rendering (Not supervised by radiologist): MIP and/or 3D reconstructed images were created by the technologist. Radiation optimization: All CT scans at this facility use at least one of these dose optimization techniques: automated exposure control; mA and/or kV adjustment per patient size (includes targeted exams where dose is matched to clinical indication); or iterative reconstruction. Contrast material: ISOVUE; Contrast volume: 70 ml; Contrast route: IV; COMPARISON: CT ABDOMEN PELVIS W CON 01/27/2025 8:57 PM FINDINGS: Liver: No mass. Gallbladder and biliary ducts: Biliary air. Cholecystectomy. Pancreas: Resection pancreatic tail. Spleen: Splenectomy. Adrenal glands: Normal. No mass. Kidneys and ureters: Normal. No hydronephrosis. Stomach and bowel: Unremarkable. No obstruction. No mucosal thickening. Appendix: No evidence of appendicitis. Intraperitoneal space: Unremarkable. No free air. No significant fluid collection. Vasculature: Unremarkable. No abdominal aortic aneurysm. Lymph nodes: Unremarkable. No enlarged lymph nodes. Urinary bladder: Unremarkable as visualized. Reproductive: Thickening of the endometrium, increased compared to prior, consider tissue sampling to exclude an aggressive process. Bones/joints: Unremarkable. No acute fracture. Soft tissues: Unremarkable. IMPRESSION: Thickening of the endometrium, increased compared to prior, consider tissue sampling to exclude an aggressive process. Postsurgical change pancreatic tail resection.
--- OUTSIDE RECORDS SUMMARY | 2025-06-06 22:15 | XMS_ITS | Encounter Summary ---
Author Organization [facility] ([place], [place], [place], [place], [place]) Address [address] [place] [address] Care Team Providers Care Executive Admin Name Role Phone Jelena Arroyo Unavailable Emilia Evans MD Primary Care Provider [phone] Encounter Details Date Type Department Care Team (Latest Contact Info) Description 06/05/2025 Travel Social History Tobacco Use Types Packs/Day Years Used Date Smoking Tobacco: Never Assessed Food Insecurity Answer Date Recorded Food run out past 12 months Not on file 06/26 Food did not last past 12 months Not on file 07/07/2023 Employment Answer Date Recorded Help finding and keeping a job Not on file 0 07/07/2023 Family and Community Support Answer [place] e Recorded Help with Day to Day Activities Not on file 07/07/2023 Feeling Lonely or Isolated Not on file 07/07 Educational Attainment Answer Date Garett rded Speak language other than Kazakh at home Not on file 07/07/2023 Want help with school or training Not on file 07/07/2023 Substance Use Answer Date Recorded Used prescription meds for non-medical reasons N ot on file 07/07/2023 Used illegal drugs past 12 months Not on file 07/07/2023 Comments Unknown Sex and Gender Information Value Date Recorded Sex Assigned at Not on file Legal Sex Female 12:39 PM CDT Gender Identity Not on file Sexual Orientation Not on file documented as of this encounter Plan of Treatment Not on file documented as of this encounter Visit Diagnoses Not on filedocumented in this encounter Care Teams Executive Admin Relationship Specialty Start Date End Date Emilia Evans MD [address] [facility] [address] [place] [address] PCP - General 11/15/22 Jelena Arroyo [address] [place] [address] Referring Physician Neurology 11/15/22 documented as of this encounter
--- OUTSIDE RECORDS SUMMARY | 2025-06-06 22:15 | XMS_ITS | Encounter Summary ---
Author Organization [employer] ([place], [place], [place], [place], [place]) Address [address] [place] [address] Care Team Providers Care Vocational Nurse Lvn Name Role Phone Jelena Arroyo Emilia Evans MD Primary Care Provider [phone] Encounter Details Date Type Department Care Team (Late st Contact Info) Description 04/21/2025 Lab Requisition [facility] [address] [place] [phone] Lokesh Anderson MD [address] [place] [phone] Aftercare following surgery for neoplasm Social History Tobacco Use Types Packs/Day Years [...] Date Garett rded Speak language other than Frisian at home Not on file 07/07/2023 Want [...] on file documented as of this encounter Procedures Procedure Name Priority Date/Time Associated Diagnosis Comments TRIGLYCERIDES Routine 04/21/2025 1:00 PM EDT Aftercare following surgery for neoplasm PHOSPHORUS Routine 04/21/2025 1:00 PM EDT Aftercare following surgery for neoplasm MAGNESIUM Routine 04/21/2025 1:00 PM EDT Aftercare following surgery for neoplasm BASIC METABOLIC PANEL Routine 04/21/2025 1:00 PM EDT Aftercare following surgery for neoplasm documented in this encounter Results * Triglycerides (04/21/2025 1:00 PM EDT) Triglycerides 96 15 - 150 mg/dL 04/21/2025 2:15 PM EDT [facility] Blood 04/21/2025 1:00 PM EDT 04/21/2025 1:57 PM EDT Lokesh Anderson MD LAB BLOOD ORDERABLES Final Resul t [facility] [address] [place] [address] * (ABNORMAL) Basic Metabolic Panel (04/21/2025 1:00 PM EDT) Sodium 140 136 - 145 meq/L 04/21/2025 2:15 PM EDT [facility] Potassium 5.1 3.5 - 5.1 meq/L 04/21/2025 2:15 PM EDT [facility] Chloride 102 98 - 107 meq/L 04/21/2025 2:15 PM EDT [facility] CO2 30 21 - 32 meq/L 04/21/2025 2:15 PM EDT [facility] Anion Gap 13 11 - 22 04/21/2025 2:15 PM EDT [facility] BUN 19(H) 7 - 18 mg/dL 04/21/2025 2:15 PM EDT [facility] Creatinine 0.60 0.55 - 1.10 mg/dL 04/21/2025 2:15 PM EDT [facility] BUN/Creatinine 32 04/21/2025 2:15 PM EDT [facility] Glucose 241(H) 74 - 100 mg/dL 04/21/2025 2:15 PM EDT [facility] Calcium 8.9 8.5 - 10.1 mg/dL 04/21/2025 2:15 PM EDT [facility] Osmolality Calc 289.6 mOsm/kg 2:15 PM EDT [facility] eGFR (mL/min/1.73m2) >60 >=60 mL/min/1.7 3m2 04/21/2025 2:15 PM EDT [facility] Comment:eGFR of <60 suggests chronic kidney disease if found over a 3 month period of time. eGFR <15 indicates renal failure. Blood 04/21/2025 1:00 PM EDT 04/21/2025 1:57 PM EDT us Lokesh Anderson MD LAB BLOOD ORDERABLES Final Resul t Performing Organization Address City/[facility]/ZIP Co de Phone Number [facility] [address] [place] [address] * Phosphorus (04/21/2025 1:00 PM EDT) Phosphorus 4.2 2.6 - 4.9 mg/dL 04/21/2025 2:15 PM EDT [facility] Blood 04/21/2025 1:00 PM EDT 04/21/2025 1:57 PM EDT us Lokesh Anderson MD LAB BLOOD ORDERABLES Final Resul t [facility] [address] [place] [address] * Magnesium (04/21/2025 1:00 PM EDT) Magnesium 1.9 1.8 - 2.4 mg/dL 04/21/2025 2:15 PM EDT [facility] Blood 04/21/2025 1:00 PM EDT 04/21/2025 1:57 PM EDT us Lokesh Anderson MD LAB BLOOD ORDERABLES Final Resul t [facility] [address] [phone] documented in this encounter Visit Diagnoses Diagnosis Aftercare following surgery for neoplasm documented in this encounter Care Teams Vocational Nurse Lvn Relationship Specialty Start Date End Date Emilia Evans MD [address] [facility] [address] [facility] [place] [address] PCP - General 11/15/22 Jelena Arroyo [address] [place] [address] Referring Physician Neurology 11/15/22 documented as of this encounter
--- OUTSIDE RECORDS SUMMARY | 2025-06-06 22:15 | XMS_ITS | Encounter Summary ---
Author Organization [facility] Address [address] [place] [address] Care Team Providers Care Refrigeration Manager Name Role Phone Golden Newell MD Primary Care Provider [phone] Encounter Details Date Type Department Care Team (Latest Contact Info) Description 05/28/2025 Travel Social History Tobacco Use Types Packs/Day [...] any time in the past 12 m [facility], were you homeless or living in a fci (including now)? No 05/14/2025 [facility] Utilities Answer Date Recorded In the past [...] Question Answer Date of Assessment Author Precautions Aspiration;Fall risk;Environmental surveillance 05/28/2025 7:00 PM Rafal Love RN * Calculated C-SSRS Risk Score (Lifetime/Recent) Answer Date of Assessment Author No Risk Indicated 05/28/2025 7:00 PM Rafal Love RN * Question Answer Date of Assessment Author 1. Wish to be (Past 1 Month) No 025 7:00 PM Rafal Love, AJ 2. Non-Specific Active Suici sathish Thoughts (Past 1 Month) No 05/28/2025 7:00 PM Gretchen Love RN 6. Suicidal Behavior (Lifetime) No 7:00 PM Rafal Love, AJ documented as of this encounter Mental Status * Question Answer Entry Date Author Precautions Aspiration;Fall risk;Environmental surveillance 05/28/2025 7:00 PM Rafal Love, AJ documented in this encounter Plan of Treatment Upcoming Encounters Date Type Department Care Team (Late st Contact Info) Description 06/13/2025 10:00 AM EST Office Visit [facility] [address] [place] [address] Vibha Osborn E, BLEND PLANT OPERATOR [address] [place] [address] documented as of this encounter Goals Goal [...] documented as of this encounter Care Teams Refrigeration Manager Relationship Specialty Start Date End Date Golden Newell MD [address] [facility] [address] [place] [address] PCP - General 12/04/20 documented as of this encounter
--- OUTSIDE RECORDS SUMMARY | 2025-06-06 22:15 | XMS_ITS | Encounter Summary ---
Author Organization [facility] Address [address] [place] [address] Care Team Providers Care Wheat Grower Name Role Phone Golden Newell MD Primary Care Provider [phone] Reason for Visit * Reason Onset Date Comments Nutrition f/u 06/05/2025 Encounter Details Date Type Department Care Team ([facility] st Contact Info) Description 06/05/2025 Telephone [facility] [address] [place] [address] Franchesca Aguilar [id number] Nutrition f/u Social History Tobacco Use Types Packs/Day Years [...] any time in the past 12 m [facility], were you homeless or living in a longterm (including now)? 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 Additional ED visit 06/05/25, now home. Spoke with pt's spouse and explained nature of call. Spouse states no issues with TPN at home, has supplies. Feels pt's weight is stable and denies any additional concerns at this time. Provided RD contact for nutrition needs outpatient. Spouse voiced understanding. Wt Readings from Last 5 Encounters: 06/02/25 69.5 kg (153 lb 3.5 oz) 04/30/25 70.9 kg (156 lb 4.9 oz) 04/23/25 72.5 kg (159 lb 13.3 oz) 04/09/25 71.4 kg (157 lb 6.5 oz) 04/04/25 73.9 kg (162 lb 14.7 oz) Ht Readings from Last 1 Encounters: 05/27/25 1.626 m (5' 4 ) BMI Readings from Last 1 Encounters: 06/02/25 26.30 kg/m?? Current Medications[1] [1] Current Outpatient Medications: acetaminophen (Tylenol) 500 MG tablet, Take 2 tablets by mouth every 8 hours for 15 days., Disp: 90tablet, Rfl: 0 Alcohol Sheets (Alcoh-Wipe) sheet, Use as directed., Disp: 100 each, Rfl: 11 Alcohol Sheets (Alcoh-Wipe) sheet, Use as directed., Disp: 100 each, Rfl: 11 [Paused] amLODIPine (Norvasc) 5 MG tablet, Take 1 [...] TPN connection., Disp: 1 each, Rfl: 0 Blood Glucose Monitoring Suppl device, Test two times daily, Disp: 1 each, Rfl: 0 Continue current TPN formula, See AVS for most recent TPN formula., Disp: 1 Package, Rfl: 0 gabapentin (Neurontin) 300 MG capsule, Take 1 capsule by mouth 2 times a day., Disp: 60 capsule, Rfl: 0 glucose (Trueplus Glucose) 4 g chewable tablet, Chew 4 tablets as needed for low blood sugar., Disp: 50 tablet, Rfl: 5 glucose blood test strip, Test two times daily, Disp: 100 strip, Rfl: 11 glucose blood test strip, Test two times daily, Disp: 100 strip, Rfl: 11 insulin glargine (Lantus SoloStar) 100 UNIT/ML injection pen, Inject 24 Units under the skin every morning. Please administer 24 units 1 hour after starting TPN. Check your blood sugar twice a day and if your blood sugar is less than 110, then administer 12 units of lantus instead of 24units, Disp:30 mL, Rfl: 0 Lancets misc, Test two times daily, Disp: 100 each, Rfl: 11 Lancets misc, Test two times daily, Disp: 100 each, Rfl: 11 Lidocaine (Lidoderm) 4 % patch, Apply 1 patch topically 1 (one) time each day at the same time over12 hours. Remove & discard patch within 12 hours or as directed by MD., Disp: 30 patch, Rfl: 0 methocarbamol (Robaxin) 500 MG tablet, Take 2 tablets by mouth 4 times a day., Disp: 90 tablet, Rfl: 0 naloxone (Narcan) 4 mg/0.1 mL nasal spray, 1. Give 1 spray in nostril for no/slow breathing or cannot wake after opioid use 2. Call 911 3. Repeat in other nostril if symptoms continue, Disp: 1 each, Rfl: 0 ondansetron ODT (Zofran-ODT) 4 MG disintegrating tablet, Dissolve 1 tablet on the tongue every 6 hours as needed for nausea or vomiting., Disp: 20 tablet, Rfl: 0 oxyCODONE (Roxicodone) 5 MG immediate release tablet, Take 2 tablets by mouth every 4 hours as needed for moderate pain or severe pain for up to 3 days., Disp: 36 tablet, Rfl: 0 pantoprazole (Protonix) 40 MG EC tablet, Take 1 tablet by mouth daily. Do not crush, chew, or split., Disp: 60 tablet, Rfl: 0 pen needle, diabetic 31G X 5 MM misc, Use as directed with insulin pen., Disp: 100 each, Rfl: 11 pen needle, diabetic 31G X 5 MM misc, Use as directed with insulin pen., Disp: 100 each, Rfl: 11 prochlorperazine (Compazine) 5 MG tablet, Take 1 tablet by mouth every 6 hours as needed for nauseaor vomiting., Disp: 30 tablet, Rfl: 0 prochlorperazine (Compazine) 5 MG tablet, Take 1 tablet by mouth every 6 hours as needed for nauseaor vomiting., Disp: 30 tablet, Rfl: 0 promethazine (Phenergan) 12.5 MG suppository, Insert 1 suppository into the rectum every 6 hours asneeded for nausea or vomiting., Disp: 12 each, Rfl: 0 senna-docusate (Lacey-Colace) 8.6-50 MG tablet, Take 1 tablet by mouth nightly., Disp: 30 tablet, Rfl: 0 documented in this encounter Plan of Treatment Upcoming Encounters Date Type Department Care Team (Late st Contact Info) Description 06/13/2025 10:00 AM EST Office Visit [facility] Multidisciplinary Oncology Clinic [address] [place] [address] Vibha Osborn, TURBO OPERATOR [address] [place] [phone] documented as of this encounter Goals Goal [...] documented as of this encounter Care Teams Wheat Grower Relationship Specialty Start Date End Date Golden Newell MD [address] [address] PCP - General 12/04/20 documented as of this encounter
--- OUTSIDE RECORDS SUMMARY | 2025-06-06 22:15 | XMS_ITS | Encounter Summary ---
Author Organization [facility] Address [address] [place] [address] Care Team Providers Care Asbestos Textile Supervisor Name Role Phone Golden Newell MD Primary Care Provider [phone] Encounter Details Date Type Department Care Team (Latest Contact Info) Description 05/31/2025 Travel Social History Tobacco Use Types Packs/Day [...] any time in the past 12 m [facility], were you homeless or living in a detention (including now)? No 05/14/2025 [facility] Utilities Answer Date Recorded In [...] Question Answer Date of Assessment Author Precautions Fall risk;[facility] surveillance 05/31/2025 9:30 AM Nathalie Reyes RN * Calculated C-SSRS Risk Score (Lifetime/Recent) Answer Date of Assessment Author No Risk Indicated 05/31/2025 9:30 AM Nathalie Ryees RN * Question Answer Date of Assessment Author 1. Wish to be (Past 1 Month) No 025 9:30 AM Nathalie Reyes RN 2. Non-Specific Active Suici sathish Thoughts (Past 1 Month) No 05/31/2025 9:30 AM Nathalie Reyes RN 6. Suicidal Behavior (Lifetime) No 9:30 AM Nathalie Reyes RN documented as of this encounter Mental Status * Question Answer Entry Date Author Precautions Fall risk;[facility] surveillance 05/31/2025 9:30 AM Nathalie Reyes RN documented in this encounter Plan of Treatment Upcoming Encounters Date Type Department Care Team (Late st Contact Info) Description 06/13/2025 10:00 AM EST Office Visit [facility] [address] [place] [address] Vibha Osborn, CONVEYOR LINE BATTERY CHARGER [address] [place] [address] documented as of this encounter Goals Goal [...] documented as of this encounter Care Teams Asbestos Textile Supervisor Relationship Specialty Start Date End Date Golden Neewll MD [address] [facility] [address] [place], [place] [id number] PCP - General 12/04/20 documented as of this encounter
--- OUTSIDE RECORDS SUMMARY | 2025-06-06 22:15 | XMS_ITS | Encounter Summary ---
Author Organization [facility] Address [address] [place] [address] Care Team Providers Care Neon Tube Pumper Name Role Phone Golden Newell MD Primary Care Provider [phone] Encounter Details Date Type Department Care Team (Latest Contact Info) Description 05/29/2025 Travel Social History Tobacco Use Types Packs/Day [...] any time in the past 12 m [facility], were you homeless or living in a retirement (including now)? No 05/14/2025 [facility] Utilities Answer Date Recorded In the past [...] * Question Answer Date of Assessment Author Marcelo Environmental survei llance;Fall risk 05/29/2025 11:00 PM EST Emily Palomino * Calculated C-SSRS Risk Score (Lifetime/Recent) Answer Date of Assessment Author No Risk Indicated 05/29/2025 7:00 PM EST Rafal Post, AJ * Question Answer Date of Assessment Author 1. Wish to be (Past 1 Month) No 025 7:00 PM Rafal Love, AJ 2. Non-Specific Active Suici sathish Thoughts (Past 1 Month) No 05/29/2025 7:00 PM EST Gretchen Post RN 6. Suicidal Behavior (Lifetime) No 7:00 PM Rafal Love, RN documented as of this encounter Mental Status * Question Answer Entry Date Author Marcelo Environmental survei llance;Fall risk 05/29/2025 11:00 PM EST Emily Palomino documented in this encounter Plan of Treatment Upcoming Encounters Date Type Department Care Team (Late st Contact Info) Description 06/13/2025 10:00 AM EST Office Visit [facility] [address] [place] [address] Vibha Osborn E, IMPORT CUSTOMS CLEARING AGENT [address] [place] [address] documented as of this encounter Goals Goal Patient Goal Type Associated Problems Recent Progress Patient-Stated? Author Autogenerat ed Goal Care Plan Autogenerated Problem No Jennifer Sabillon Autogenerat ed Goal Care Plan Autogenerated Problem No Lokesh nAderson MD documented as of this encounter Visit [...] as of this encounter Care Teams Neon Tube Pumper Relationship Specialty Start Date End Date Golden Newell MD [address] [facility] [address] [place] [address] PCP - General 12/04/20 documented as of this encounter
--- OUTSIDE RECORDS SUMMARY | 2025-06-06 22:15 | XMS_ITS | Encounter Summary ---
Author Organization [employer] ([place], [place], [place], [place], [place]) Address [address] [place] [address] Care Team Providers Care Waiter/Waitress Formal Name Role Phone Jelena Arroyo Emilia Evans MD Primary Care Provider [phone] Encounter Details Date Type Department Care Team (Late st Contact Info) Description 04/14/2025 Lab Requisition [facility] Lab [address] [place] [phone] Lokesh Anderson MD [address] [place] [phone] Neoplasm of unspecified behavior of digestive system Social History Tobacco Use Types Packs/Day Years [...] Date Garett rded Speak language other than Sami at home Not on file 07/07/2023 Want [...] Priority Date/Time Associated Diagnosis Comments TRIGLYCERIDES Routine 04/14/2025 1:30 PM EDT Neoplasm of unspecified behavior of digestive system PHOSPHORUS Routine 04/14/2025 1:30 PM EDT Neoplasm of unspecified behavior of digestive system MAGNESIUM Routine 04/14/2025 1:30 PM EDT Neoplasm of unspecified behavior of digestive system BASIC METABOLIC PANEL Routine 04/14/2025 1:30 PM EDT Neoplasm of unspecified behavior of digestive system documented in this encounter Results * Phosphorus (04/14/2025 1:30 PM EDT) Phosphorus 4.1 2.6 - 4.9 mg/dL 04/14/2025 3:20 PM EDT [facility] Blood 04/14/2025 1:30 PM EDT 04/14/2025 2:49 PM EDT Lokesh Anderson MD LAB BLOOD ORDERABLES Final Resul t [facility] [address] [place] [address] * (ABNORMAL) Basic Metabolic Panel (04/14/2025 1:30 PM EDT) Sodium 138 136 - 145 meq/L 04/14/2025 3:20 PM EDT [facility] Potassium 5.4(H) 3.5 - 5.1 meq/L 04/14/2025 3:20 PM EDT [facility] Chloride 102 98 - 107 meq/L 04/14/2025 3:20 PM EDT [facility] CO2 30 21 - 32 meq/L 04/14/2025 3:20 PM EDT [facility] Anion Gap 11 11 - 22 04/14/2025 3:20 PM EDT [facility] BUN 21(H) 7 - 18 mg/dL 04/14/2025 3:20 PM EDT [facility] Creatinine 0.51(L) 0.55 - 1.10 mg/dL 04/14/2025 3:20 PM EDT [facility] BUN/Creatinine 41 04/14/2025 3:20 PM EDT [facility] Glucose 259(H) 74 - 100 mg/dL 04/14/2025 3:20 PM EDT [facility] Calcium 8.7 8.5 - 10.1 mg/dL 04/14/2025 3:20 PM EDT [facility] Osmolality Calc 287.6 mOsm/kg 3:20 PM EDT [facility] eGFR (mL/min/1.73m2) >60 >=60 mL/min/1.7 3m2 04/14/2025 3:20 PM EDT [facility] Comment:eGFR of <60 suggests chronic kidney disease if found over a 3 month period of time. eGFR <15 indicates renal failure. Blood 04/14/2025 1:30 PM EDT 04/14/2025 2:49 PM EDT Narrative [facility] - 04/14/2025 3:20 PM EDT Specimen slightly hemolyzed us Lokesh Anderson MD LAB BLOOD ORDERABLES Final Resul t [facility] [address] [place] [address] * Triglycerides (04/14/2025 1:30 PM EDT) Triglycerides 94 15 - 150 mg/dL 04/14/2025 3:20 PM EDT [facility] Blood 04/14/2025 1:30 PM EDT 04/14/2025 2:49 PM EDT us Lokesh Anderson MD LAB BLOOD ORDERABLES Final Resul t Performing Organization Address City/[facility]/ZIP Co de Phone Number [facility] [address] [place] [address], [facility] [phone] * Magnesium (04/14/2025 1:30 PM EDT) Magnesium 1.9 1.8 - 2.4 mg/dL 04/14/2025 3:20 PM EDT [facility] Blood 04/14/2025 1:30 PM EDT 04/14/2025 2:49 PM EDT us Lokesh Anderson MD LAB BLOOD ORDERABLES Final Resul t Performing Organization Address City/[facility] Co de Phone Number [facility] [address] [place] [address], [facility] [phone] documented in this encounter Visit Diagnoses Diagnosis Neoplasm of unspecified behavior of digestive system documented in this encounter Care Teams Waiter/Waitress Formal Relationship Specialty Start Date End Date Emilia Evans MD [address] [facility] [address] [place] [address] PCP - General 11/15/22 Jelena Arroyo [address] [place] [address] Referring Physician Neurology 11/15/22 documented as of this encounter
--- OUTSIDE RECORDS SUMMARY | 2025-06-06 22:15 | XMS_ITS | Encounter Summary ---
Author Organization [facility] Address [address] [place] [address] Care Team Providers Care Sound Mixer Name Role Phone Golden Newell MD Primary Care Provider [phone] Encounter Details Date Type Department Care Team (Latest Contact Info) Description 06/04/2025 Travel Social History Tobacco Use Types Packs/Day [...] any time in the past 12 m [facility], were you homeless or living in a prison (including now)? No 05/14/2025 [facility] Utilities Answer Date Recorded In the past [...] as of this encounter Functional Status * Calculated C-SSRS Risk Score (Lifetime/Recent) Answer Date of Assessment Author No Risk Indicated 06/04/2025 3:35 AM Sarah Prado * Question Answer Date of Assessment Author 1. Wish to be (Past 1 Month) No 025 3:35 AM Sarah Prado 2. Non-Specific Active Suici sathish Thoughts (Past 1 Month) No 06/04/2025 3:35 AM Sarah Prado 6. Suicidal Behavior (Lifetime) No 5 3:35 AM Sarah Prado documented as of this encounter Plan of Treatment Upcoming Encounters Date Type Department Care Team (Late st Contact Info) Description 06/13/2025 10:00 AM EST Office Visit [facility] [address] [place] [address] Vibha Osborn E, ASSEMBLER CAMPER [address] [place] [phone] documented as of this encounter Goals Goal Patient Goal Type Associated Problems Recent Progress Patient-Stated? Author Autogenerat ed Goal Care Plan Autogenerated Problem No Sabillon, Jennifer Autogenerat ed Goal Care Plan Autogenerated Problem [...] documented as of this encounter Care Teams Sound Mixer Relationship Specialty Start Date End Date Golden Newell MD [address] [place] [address] PCP - General 12/04/20 documented as of this encounter
--- OUTSIDE RECORDS SUMMARY | 2025-06-06 22:15 | XMS_ITS | Encounter Summary ---
Author Organization [employer] ([place], [place], [place], [place], [place]) Address [address] [place] [address] Care Team Providers Care Professor Of Theology Name Role Phone Jelena Arroyo Emilia Evans MD Primary Care Provider [phone] Encounter Details Date Type Department Care Team (Late st Contact Info) Description 04/17/2025 Lab Requisition [facility] [address] [place] [phone] Lokesh Anderson MD [address] [place] [phone] Neoplasm of unspecified behavior of digestive [...] Date Garett rded Speak language other than Setswana at home Not on file 07/07/2023 Want [...] Priority Date/Time Associated Diagnosis Comments TRIGLYCERIDES Routine 04/17/2025 12:00 PM EDT Neoplasm of unspecified behavior of digestive system PHOSPHORUS Routine 04/17/2025 12:00 PM EDT Neoplasm of unspecified behavior of digestive system MAGNESIUM Routine 04/17/2025 12:00 PM EDT Neoplasm of unspecified behavior of digestive system BASIC METABOLIC PANEL Routine 04/17/2025 12:00 PM EDT Neoplasm of unspecified behavior of digestive system documented in this encounter Results * Triglycerides (04/17/2025 12:00 PM EDT) Triglycerides 100 15 - 150 mg/dL 04/17/2025 12:43 PM EDT [facility] Blood 04/17/2025 12:0 0 PM EDT 04/17/2025 12:16 PM EDT us Lokesh Anderson MD LAB BLOOD ORDERABLES Final Resul t Performing Organization Address City/[facility]/ZIP Co de Phone Number [facility] [address] [place] [address] * Phosphorus (04/17/2025 12:00 PM EDT) Phosphorus 3.9 2.6 - 4.9 mg/dL 04/17/2025 12:43 PM EDT [facility] Blood 04/17/2025 12:0 0 PM EDT 04/17/2025 12:16 PM EDT us Lokesh Anderson MD LAB BLOOD ORDERABLES Final Resul t [facility] [address] [place] [address] * Magnesium (04/17/2025 12:00 PM EDT) Magnesium 1.9 1.8 - 2.4 mg/dL 04/17/2025 12:43 PM EDT [facility] Blood 04/17/2025 12:0 0 PM EDT 04/17/2025 12:16 PM EDT Lokesh Anderson MD LAB BLOOD ORDERABLES Final Resul t [facility] [address] [phone] * (ABNORMAL) Basic Metabolic Panel (04/17/2025 12:00 PM EDT) Sodium 139 136 - 145 meq/L 04/17/2025 12:43 PM EDT [facility] Potassium 4.4 3.5 - 5.1 meq/L 04/17/2025 12:43 PM EDT [facility] Chloride 102 98 - 107 meq/L 04/17/2025 12:43 PM EDT [facility] CO2 30 21 - 32 meq/L 04/17/2025 12:43 PM EDT [facility] Anion Gap 11 11 - 22 04/17/2025 12:43 PM EDT [facility] BUN 19(H) 7 - 18 mg/dL 04/17/2025 12:43 PM EDT [facility] Creatinine 0.52(L) 0.55 - 1.10 mg/dL 04/17/2025 12:43 PM EDT [facility] BUN/Creatinine 37 04/17/2025 12:43 PM EDT [facility] Glucose 287(H) 74 - 100 mg/dL 04/17/2025 12:43 PM EDT [facility] Calcium 8.6 8.5 - 10.1 mg/dL 04/17/2025 12:43 PM EDT [facility] Osmolality Calc 290.3 mOsm/kg 12:43 PM EDT [facility] eGFR (mL/min/1.73m2) >60 >=60 mL/min/1.7 3m2 04/17/2025 12:43 PM EDT [facility] Comment:eGFR of <60 suggests chronic kidney disease if found over a 3 month period of time. eGFR <15 indicates renal failure. Blood 04/17/2025 12:0 0 PM EDT 04/17/2025 12:16 PM EDT us Lokesh Anderson MD LAB BLOOD ORDERABLES Final Resul t [facility] [address] [place] [address], [facility] [phone] documented in this encounter Visit Diagnoses Diagnosis Neoplasm of unspecified behavior of digestive system documented in this encounter Care Teams Professor Of Theology Relationship Specialty Start Date End Date Emilia Evans MD [address] [facility] [address] [place] [address] PCP - General 11/15/22 Jelena Arroyo [address] [place] [address] Referring Physician Neurology 11/15/22 documented as of this encounter
--- OUTSIDE RECORDS SUMMARY | 2025-06-06 22:15 | XMS_ITS | Encounter Summary ---
Author Organization [facility] Address [address] [place] [address] Care Team Providers Care Security System Installer Name Role Phone Golden Newell MD Primary Care Provider [phone] Encounter Details Date Type Department Care Team (Latest Contact Info) Description 06/01/2025 Travel Social History Tobacco Use Types Packs/Day [...] any time in the past 12 m [facility], were you homeless or living in a longterm (including now)? No 05/14/2025 [facility] Utilities Answer Date Recorded In the [...] Date of Assessment Author Robertson Environmental surveillance 06/01/2025 8:0 0 PM Franchesca Rock RN * Calculated C-SSRS Risk Score (Lifetime/Recent) Answer Date of Assessment Author No Risk Indicated 06/01/2025 8:00 PM Franchesca Rock RN * Question Answer Date of Assessment Author 1. Wish to be (Past 1 Month) No 025 8:00 PM Franchesca Rock RN 2. Non-Specific Active Suici sathish Thoughts (Past 1 Month) No 06/01/2025 8:00 PM Caitlyn Rock RN 6. Suicidal Behavior (Lifetime) No 8:00 PM Franchesca Rock RN documented as of this encounter Mental Status * Question Answer Entry Date Author Robertson Environmental surveillance 06/01/2025 8:0 0 PM Franchesca Rock RN documented in this encounter Plan of Treatment Upcoming Encounters Date Type Department Care Team (Late st Contact Info) Description 06/13/2025 10:00 AM EST Office [facility] [address] [place] [address] Vibha Osborn, LOG SKIDDER [address] [place] [address] documented as of this encounter Goals Goal [...] documented as of this encounter Care Teams Security System Installer Relationship Specialty Start Date End Date Golden Newell MD [address] [facility] [address] [place], [place] [id number] PCP - General 12/04/20 documented as of this encounter
--- OUTSIDE RECORDS SUMMARY | 2025-06-06 22:15 | XMS_ITS | Encounter Summary ---
Author Organization [employer] ([place], [place], [place], [place], [place]) Address [address] [place] [address] Care Team Providers Care Employee Development Specialist Name Role Phone Jelena Arroyo Emilia Evans MD Primary Care Provider [phone] Encounter Details Date Type Department Care Team (Late st Contact Info) Description 04/10/2025 Lab Requisition [facility] [address] [place] [phone] Lokesh Anderson MD [address] [place] [phone] Neoplasm of unspecified behavior of digestive [...] Date Garett rded Speak language other than Latvian at home Not on file 07/07/2023 Want [...] Procedure Name Priority Date/Time Associated Diagnosis Comments PHOSPHORUS Routine 04/10/2025 4:00 AM EDT Neoplasm of unspecified behavior of digestive system MAGNESIUM Routine 04/10/2025 4:00 AM EDT Neoplasm of unspecified behavior of digestive system BASIC METABOLIC PANEL Routine 04/10/2025 4:00 AM EDT Neoplasm of unspecified behavior of digestive system documented in this encounter Results * Magnesium (04/10/2025 4:00 AM EDT) Magnesium 1.8 1.8 - 2.4 mg/dL 04/10/2025 4:58 PM EDT [facility] Blood 04/10/2025 4:00 AM EDT 04/10/2025 4:42 PM EDT us Lokesh Anderson MD LAB BLOOD ORDERABLES Final Resul t [facility] [address] [place] [address] * Phosphorus (04/10/2025 4:00 AM EDT) Phosphorus 3.8 2.6 - 4.9 mg/dL 04/10/2025 4:58 PM EDT [facility] Blood 04/10/2025 4:00 AM EDT 04/10/2025 4:42 PM EDT us Lokesh Anderson MD LAB BLOOD ORDERABLES Final Resul t [facility] [address] [place] [address] * (ABNORMAL) Basic Metabolic Panel (04/10/2025 4:00 AM EDT) Sodium 138 136 - 145 meq/L 04/10/2025 4:58 PM EDT [facility] Potassium 4.6 3.5 - 5.1 meq/L 04/10/2025 4:58 PM EDT [facility] Chloride 100 98 - 107 meq/L 04/10/2025 4:58 PM EDT [facility] CO2 29 21 - 32 meq/L 04/10/2025 4:58 PM EDT [facility] Anion Gap 14 11 - 22 04/10/2025 4:58 PM EDT [facility] BUN 23(H) 7 - 18 mg/dL 04/10/2025 4:58 PM EDT [facility] Creatinine 0.51(L) 0.55 - 1.10 mg/dL 04/10/2025 4:58 PM EDT [facility] BUN/Creatinine 45 04/10/2025 4:58 PM EDT [facility] Glucose 348(H) 74 - 100 mg/dL 04/10/2025 4:58 PM EDT [facility] Calcium 8.6 8.5 - 10.1 mg/dL 04/10/2025 4:58 PM EDT [facility] Osmolality Calc 293.2 mOsm/kg 4:58 PM EDT [facility] eGFR (mL/min/1.73m2) >60 >=60 mL/min/1.7 3m2 04/10/2025 4:58 PM EDT [facility] Comment:eGFR of <60 suggests chronic kidney disease if found over a 3 month period of time. eGFR <15 indicates renal failure. Blood 04/10/2025 4:00 AM EDT 04/10/2025 4:42 PM EDT Lokesh Anderson MD LAB BLOOD ORDERABLES Final Resul t [facility] [address] [place] [address] documented in this encounter Visit Diagnoses Diagnosis Neoplasm of unspecified behavior of digestive system documented in this encounter Care Teams Employee Development Specialist Relationship Specialty Start Date End Date Emilia Evans MD [address] [place] [facility] [address] [place] [address] PCP - General 11/15/22 Jelena Arroyo [address] [place] [address] Referring Physician Neurology 11/15/22 documented as of this encounter
--- OUTSIDE RECORDS SUMMARY | 2025-06-06 22:15 | XMS_ITS | Encounter Summary ---
Author Organization [facility] Address [address] [place] [address] Care Team Providers Care Car Coupler Name Role Phone Golden Newell MD Primary Care Provider [phone] Encounter Details Date Type Department Care Team (Latest Contact Info) Description 05/30/2025 Travel Social History Tobacco Use Types Packs/Day [...] any time in the past 12 m [facility], were you homeless or living in a alf (including now)? No 05/14/2025 [facility] Utilities Answer Date Recorded In the [...] Answer Date of Assessment Author Precautions Fall risk;[facility] surveillance 05/30/2025 10:00 PM Tabitha Murray RN * Calculated C-SSRS Risk Score (Lifetime/Recent) Answer Date of Assessment Author No Risk Indicated 05/30/2025 8:00 AM Ele Delgado RN * Question Answer Date of Assessment Author 1. Wish to be (Past 1 Month) No 025 8:00 AM Ele Delgado, AJ 2. Non-Specific Active Suici sathish Thoughts (Past 1 Month) No 05/30/2025 8:00 AM Ele Delgado, RN 6. Suicidal Behavior (Lifetime) No 8:00 AM Ele Delgado, RN documented as of this encounter Mental Status * Question Answer Entry Date Author Precautions Fall risk;[facility] surveillance 05/30/2025 10:00 PM Tabitha Murray RN documented in this encounter Plan of Treatment Upcoming Encounters Date Type Department Care Team (Late st Contact Info) Description 06/13/2025 10:00 AM EST Office [facility] [address] [place] [address] Vibha Osborn, C D STILL OPERATOR [address] [place] [address] documented as of this encounter Goals Goal [...] documented as of this encounter Care Teams Car Coupler Relationship Specialty Start Date End Date Golden Newell MD [address] [facility] [address] [place], [place] [id number] PCP - General 12/04/20 documented as of this encounter
--- OUTSIDE RECORDS SUMMARY | 2025-06-06 22:17 | XMS_ITS | Encounter Summary ---
Author Organization Healthcare Address [address] [place] [address] Care Team Providers Care Correspondence Coordinator Name Role Phone Golden Newell MD Primary Care Provider [phone] Encounter Details Date Type Department Care Team (Late st Contact Info) Description 04/10/2025 Telephone [facility] [address] [place] [address] Lokesh Anderson MD [address] [phone] Social History Tobacco Use Types Packs/Day Years [...] time in the past 12 m [facility], were you homeless or living in a chcf (including now)? No 03/21/2025 [facility] Utilities Answer Date Recorded In [...] encounter Miscellaneous Notes * Telephone Encounter - Jackelyn Proctor RN - 04/10/2025 3:49 PM EDT Addressed in separate encounter. * Telephone Encounter - Alejandro Reynolds LPN - 04/10/2025 3:49 PM EDT Called Rebeca back and and let her know that [facility] will be sending another shipment to patients home. Also let them know of the changes to the TPN formula that should help control sugar levels and that I have forwarded message about nausea medicine to provider. Rebeca expressed understanding and had no further questions. * Telephone Encounter - Gavin Hills - 04/10/2025 2:41 PM EDT Patient Phone Message Reason for Call: Rebeca from [employer] is calling on Ms. Dale behalf she said the pt amy TPN and her Blood sugar is running between 300/400 and is getting 8 units a day, she is nausea and has some discomfort in her and may need some nausea meds sent in for her Best contact number and optimal time of day to reach caller: Rebeca [phone] Note: Please do not reply to this message. Follow-up communication and further actions as a result of this message need to be communicated with the patient directly, if the patient is not active onMyChart. If the patient is active on MyChart, they will receive notification of the communication/outcome via Vendscreen. documented in this encounter Plan of Treatment Upcoming Encounters Date Type Department Care Team (Late st Contact Info) Description 06/13/2025 10:00 AM EST Office Visit [facility] Multidisciplinary Oncology Clinic [address] [place] [address] Vibha Osborn, FABRICATION OPERATOR [address] [facility] [address] [place] [address] documented as of this encounter Goals Goal [...] documented as of this encounter Care Teams Correspondence Coordinator Relationship Specialty Start Date End Date Golden Newell MD [address] [place] [address] [place] [address] PCP - General 12/04/20 documented as of this encounter
--- OUTSIDE RECORDS SUMMARY | 2025-06-06 22:17 | XMS_ITS | Encounter Summary ---
Author Organization Healthcare Address [address] [place] [address] Care Team Providers Care Drying Unit Felting Machine Operator Name Role Phone Golden Newell MD Primary Care Provider [phone] Encounter Details Date Type Department Care Team (Late Contact Info) Description 09/16/2024 Orders Only External Location [address] [place] [address] Selene Foster PA [facility] [place] [facility] [address] [facility] [address] [place] [address] Social History Tobacco Use Types Packs/Day Years [...] Office Visit [facility] [address] [place] [address] Vibha Osborn, EFFICIENCY EXPERT [address] [facility] [address] [place] [address] documented as of this encounter [...] filedocumented in this encounter Additional Health Concerns Infection Onset Date Last Indicated Resolved Time Gastrointestinal Rule-Out 03/29/2025 03/30/2025 2:53 AM EDT C. difficile Rule-Out 03/29/2025 03/30/20252024 2:23 AM EDT C. difficile 03/30/2025 03/30/2025 05/15/2025 8:00 AM EST documented as of this encounter Care Teams Drying Unit Felting Machine Operator Relationship Specialty Start Date End Date Golden Newell MD [address] [place] [address] PCP - General 12/04/20 documented as of this encounter
--- OUTSIDE RECORDS SUMMARY | 2025-06-06 22:17 | XMS_ITS | Encounter Summary ---
Author Organization [facility] Address [address] [place] [address] Care Team Providers Care Lead Ramp Agent Name Role Phone Golden Newell MD Primary Care Provider [phone] Encounter Details Date Type Department Care Team (Latest Contact Info) Description 04/09/2025 Travel Social History Tobacco Use Types Packs/Day [...] any time in the past 12 m [facility], were you homeless or living in a longterm (including now)? No 03/21/2025 [facility] Utilities Answer Date Recorded In the [...] 9:05 AM Marina Call CNA Patient Health Questionnaire-2 Score 0 04/09/2025 9:05 AM Marina Call [...] television Not at all 04/09/2025 9:05 AM EDT Marina Quinn CNA Moving or speaking so slowly that other people could have noticed. Or the opposite - being so fidgety or restless that you have been moving around a lot more than usual Not at all 04/09/2025 9:05 AM EDT Marina Quinn CNA Thoughts that you would be better off or hurting yourself in some way Not at all 04/09/2025 9:05 AM Marina Call CNA Patient Health Questionnaire -9 Score 0 04/09/2025 9:05 AM EDT Marina Quinn CNA documented as of this encounter Plan of Treatment Upcoming Encounters Date Type Department Care Team (Late st Contact Info) Description 06/13/2025 10:00 AM EST Office Visit [facility] Multidisciplinary Oncology Clinic [address] [place] [address] Vibha Osborn E, PAROLE AGENT [address] [address] documented as of this encounter Goals [...] documented as of this encounter Care Teams Lead Ramp Agent Relationship Specialty Start Date End Date Golden Newell MD [address] [place] [address] PCP - General 12/04/20 documented as of this encounter
--- OUTSIDE RECORDS SUMMARY | 2025-06-06 22:17 | XMS_ITS | Encounter Summary ---
Author Organization Healthcare Address [address] [place] [address] Care Team Providers Care Vegetable Grower Name Role Phone Golden Newell MD Primary Care Provider [phone] Encounter Details Date Type Department Care Team (Late st Contact Info) Description 04/10/2025 Telephone [facility] [address] [place] [address] Lokesh Anderson MD [address] [address] Social History Tobacco Use Types [...] any time in the past 12 m [facility], were you homeless or living in a care home (including now)? No 03/21/2025 [facility] Utilities Answer Date Recorded In the [...] Encounter - Jackelyn Proctor RN - 04/10/2025 10:16 AM EDT Called and spoke with nurse Franchesca, she had questions about pts TPN formula and questioning about insulin dosage due to pts BS running in the 300's-400's. Stated she spoke with RN in office who stated she would get back with her. * Telephone Encounter - Amanda Garcia - 04/10/2025 9:52 AM EDT Patient Phone Message Reason for Call: Franchesca is calling from home health. Said that is regarding her port and this is very important. Best contact number and optimal time of day to reach caller: [phone] Note: Please do not reply to this message. Follow-up communication and further actions as a result of this message need to be communicated with the patient directly, if the patient is not active onMyChart. If the patient is active on MyChart, they will receive notification of the communication/outcome via MyChart. documented in this encounter Plan of Treatment Upcoming Encounters Date Type Department Care Team (Late st Contact Info) Description 06/13/2025 10:00 AM EST Office Visit [facility] Multidisciplinary Oncology Clinic [address] [place] [address] Vibha Osborn, EAP SPECIALIST [address] [facility] [address] [place] [phone] documented as of this encounter Goals Goal [...] documented as of this encounter Care Teams Vegetable Grower Relationship Specialty Start Date End Date Golden Newell MD [address] [facility] [address] [place] [address] PCP - General 12/04/20 documented as of this encounter
--- OUTSIDE RECORDS SUMMARY | 2025-06-06 22:17 | XMS_ITS | Encounter Summary ---
Author Organization Healthcare Address [address] [place] [address] Care Team Providers Care Hoisting Engineer Pile Driving Name Role Phone Golden Newell MD Primary Care Provider [phone] Encounter Details Date Type Department Care Team (Late st Contact Info) Description 04/11/2025 Orders Only [facility] [address] [place] [address] Vibha Osborn, BONING ROOM WORKER [address] [facility] [address] [place] [phone] Social History Tobacco Use Types Packs/Day Years [...] in the past 12 m [facility], were you homeless or living in a nursing home (including now)? No 03/21/2025 [facility] Utilities Answer Date Recorded In [...] Office Visit [facility] [address] [place] [address] Vibha Osborn, BONING ROOM WORKER [address] [place] [address] documented as of this encounter Goals Goal [...] documented as of this encounter Care Teams Hoisting Engineer Pile Driving Relationship Specialty Start Date End Date Golden Newell MD [address] [place] [address] PCP - General 12/04/20 documented as of this encounter
--- OUTSIDE RECORDS SUMMARY | 2025-06-06 22:17 | XMS_ITS | Encounter Summary ---
Author Organization Healthcare Address [address] [place] [address] Care Team Providers Care Pillar Man Name Role Phone Golden Newell MD Primary Care Provider [phone] Encounter Details Date Type Department Care Team (Late st Contact Info) Description 04/10/2025 Orders Only [facility] [address] [place] [phone] Lokesh Anderson MD [address] [address] Social History Tobacco Use Types [...] in the past 12 m [facility], were you homeless or living in a long term (including now)? No 03/21/2025 [facility] Utilities Answer Date Recorded In [...] Visit [facility] [address] [place] [address] Vibha Osborn, BUFFER INFLATED PAD [address] [place] [phone] documented as of this encounter Goals Goal [...] documented as of this encounter Care Teams Pillar Man Relationship Specialty Start Date End Date Golden Newell MD [address] [place] [address] PCP - General 12/04/20 documented as of this encounter
--- OUTSIDE RECORDS SUMMARY | 2025-06-06 22:17 | XMS_ITS | Encounter Summary ---
Author Organization Healthcare Address [address] [place] [address] Care Team Providers Care Director Day Care Center Name Role Phone Golden Newell MD Primary Care Provider [phone] Encounter Details Date Type Department Care Team (Late Contact Info) Description 12/08/2020 Ophth Exam [facility] [address] [place] [address] Oneil Mueller DO Social History [...] Department Care Team (Late Contact Info) Description 06/13/2025 10:00 AM EST Office Visit [facility] [address] [place] [address] Vibha Osborn, YOBANI [address] [facility] [address] [place] [phone] documented as of this encounter Visit Diagnoses Not on filedocumented in this encounter Additional Health Concerns Infection Onset Date Last Indicated Resolved Time Gastrointestinal Rule-Out 03/29/2025 03/30/2025 2:53 AM EDT C. difficile Rule-Out 03/29/2025 03/30/20252024 2:23 AM EDT C. difficile 03/30/2025 03/30/2025 05/15/2025 8:00 AM EST documented as of this encounter Care Teams Director Day Care Center Relationship Specialty Start Date End Date Golden Newell MD [address] [place] [address] PCP - General 12/04/20 documented as of this encounter
--- OUTSIDE RECORDS SUMMARY | 2025-06-06 22:17 | XMS_ITS | Encounter Summary ---
Author Organization Healthcare Address [address] [place] [address] Care Team Providers Care Bit And Shank Department Supervisor Name Role Phone Golden Newell MD Primary Care Provider [phone] Encounter Details Date Type Department Care Team (Late st Contact Info) Description 04/10/2025 Telephone [facility] [address] [place] [address] Lokesh Anderson MD [address] [address] Social History Tobacco Use Types [...] time in the past 12 m [facility], were you homeless or living in a fci (including now)? No 03/21/2025 [facility] Utilities Answer Date Recorded In [...] encounter Miscellaneous Notes * Telephone Encounter - Alejandro Reynolds LPN - 04/14/2025 9:57 AM EDT Nausea medicine sent to patient pharmacy. * Telephone Encounter - Alejandro Reynolds LPN - 04/10/2025 3:35 PM EDT Called Chalino back and and let her know that [facility] will be sending another shipment to patients home. Also let them know of the changes to the TPN formula that should help control sugar levels. Patients daughter in law expressed understanding and had no further questions. * Telephone Encounter - Tabitha Macias - 04/10/2025 3:08 PM EDT Patient Phone Message Reason for Call: Chalino (daughter in law) calling to say pt only days of TPN left. Pt has been sick to her stomach and wants to know if we can send in something to help. Her sugar has been staying at 350 or higher since she has been home. She is asking if the fat emulsion is in the TPN or if it's to be added to it. Best contact number and optimal time of day to reach caller: [phone] Note: Please do not reply to this message. Follow-up communication and further actions as a result of this message need to be communicated with the patient directly, if the patient is not active onMyChart. If the patient is active on MyChart, they will receive notification of the communication/outcome via Mapbox. documented in this encounter Plan of Treatment Upcoming Encounters Date Type Department Care Team (Late st Contact Info) Description 06/13/2025 10:00 AM EST Office Visit [facility] Multidisciplinary Oncology Clinic [address] [place] [address] Vibha Osborn, DREDGE OR BARGE SHORE HAND [address] [facility] [address] [place] [address] documented as of this encounter Goals Goal [...] documented as of this encounter Care Teams Bit And Shank Department Supervisor Relationship Specialty Start Date End Date Golden Newell MD [address] [place] [address] PCP - General 12/04/20 documented as of this encounter
--- OUTSIDE RECORDS SUMMARY | 2025-06-06 22:17 | XMS_ITS | Encounter Summary ---
Author Organization Healthcare Address [address] [place] [address] Care Team Providers Care Etcher Machine Name Role Phone Golden Newell MD Primary Care Provider [phone] Encounter Details Date Type Department Care Team (Late st Contact Info) Description 04/07/2025 Telephone [facility] [address] [place] [address] Lokesh Anderson MD [address] [address] Social History Tobacco Use Types Packs/Day Years Used Date Smoking Tobacco: Never Smokeless Tobacco: Never Alcohol Use Standard Drinks/Week Comments Never 0 (1 standard drink = 0.6 oz pur e alcohol) PHQ-2 Answer Date Recorded Patient Health Questionnaire-2 Score 0 02/26/2025 Humiliation, Afraid, Rape, and Kick questionnair e [...] living in a alf (including now)? No 03/21/2025 [facility] Utilities Answer Date Recorded In [...] Telephone Encounter - Jackelyn Proctor RN - 04/07/2025 12:21 PM EDT duplicate * Telephone Encounter - Alejandro Reynolds LPN - 04/07/2025 11:34 AM EDT Called and left a Vcm[facility]. * Telephone Encounter - Tabitha Macias - 04/07/2025 10:43 AM EDT Patient Phone Message Reason for Call: Calling to say she started patient's care today and she has some questions. Best contact number and optimal time of day to reach caller: [phone] Note: Please do not reply to this [...] Description 06/13/2025 10:00 AM EST Office Visit [facility] Multidisciplinary Oncology Clinic [address] [place] [address] Vibha Osborn, WARP KNITTER HELPER [address] [facility] [address] [place] [address] documented as of this encounter Goals Goal [...] 05/15/2025 8:00 AM EST Assessment Noted Time A fall risk assessment has been complete d for the patient 02/26/2025 9:16 AM EDT A Body Mass Index follow-up plan has been documented for the patient 04/04/2025 12:23 PM EDT documented as of this encounter Care Teams Etcher Machine Relationship Specialty Start Date End Date Golden Newell MD [address] [facility] [address] [address] PCP - General 12/04/20 documented as of this encounter
--- OUTSIDE RECORDS SUMMARY | 2025-06-06 22:17 | XMS_ITS | Encounter Summary ---
Author Organization Healthcare Address [address] [place] [address] Care Team Providers Care Digester Hand Name Role Phone Golden Newell MD Primary Care Provider [phone] Encounter Details Date Type Department Care Team (Late st Contact Info) Description 04/07/2025 Telephone [facility] [address] [place] [address] Lokesh Anderson MD [address] [address] Social History Tobacco Use Types [...] any time in the past 12 m [facility], were you homeless or living in a [facility] (including now)? No 03/21/2025 [facility] Utilities Answer Date Recorded In the past [...] Encounter - Alejandro Reynolds LPN - 04/07/2025 2:46 PM EDT Called and spoke to nurse confirmed lab draws for patient. Franchesca expressed understanding and had no further questions. * Telephone Encounter - Gavin Hills - 04/07/2025 11:54 AM EDT Patient Phone Message Reason for Call: Franchesca is calling from [facility] [place] call she said she said is free for the rest of the day Best contact number and optimal time of day to reach caller: Franchesca [phone] Note: Please do not reply to this [...] 06/13/2025 10:00 AM EST Office Visit [facility] Multidisciplinary Oncology Clinic [address] [place] [address] Vibha Osborn, INSTRUCTIONAL MATERIAL DIRECTOR [address] [place] [address] documented as of this encounter Goals Goal [...] documented as of this encounter Care Teams Digester Hand Relationship Specialty Start Date End Date Golden Newell MD [address] [place] [facility] [address] [place] [id number] PCP - General 12/04/20 documented as of this encounter
--- OUTSIDE RECORDS SUMMARY | 2025-06-06 22:18 | XMS_ITS | Encounter Summary ---
Author Organization Healthcare Address [address] [place] [address] Care Team Providers Care Renovation Plant Supervisor Name Role Phone Golden Newell MD Primary Care Provider [phone] Encounter Details Date Type Department Care Team (Late Contact Info) Description 10/16/2024 [facility] [address] [place] [address] Hao Mora MD [address] [place] [facility] [address] [place] [address] Social History Tobacco Use Types Packs/Day Years [...] Office Visit [facility] [address] [place] [address] Vibha Osborn, MACHINE MAINTENANCE TECHNICIAN [address] [place] [address] documented as of this encounter Visit Diagnoses Not on filedocumented in this encounter Additional Health Concerns Infection Onset Date Last Indicated Resolved Time Gastrointestinal Rule-Out 03/29/2025 03/30/2025 2:53 AM EDT C. difficile Rule-Out 03/29/2025 03/30/20252024 2:23 AM EDT C. difficile 03/30/2025 03/30/2025 05/15/2025 8:00 AM EST documented as of this encounter Care Teams Renovation Plant Supervisor Relationship Specialty Start Date End Date Golden Newell MD [address] [place] [address] PCP - General 12/04/20 documented as of this encounter
--- OUTSIDE RECORDS SUMMARY | 2025-06-06 22:18 | XMS_ITS | Encounter Summary ---
Author Organization Healthcare Address [address] [place] [address] Care Team Providers Care Template Storage Clerk Name Role Phone Golden Newell MD Primary Care Provider [phone] Encounter Details Date Type Department Care Team (Late st Contact Info) Description 04/11/2025 Telephone [facility] [address] [place] [address] Lokesh Anderson MD [address] [address] Social History Tobacco Use Types [...] any time in the past 12 m [facility], were you homeless or living in a longterm (including now)? No 03/21/2025 [facility] Utilities Answer Date Recorded In the [...] Encounter - Alejandro Reynolds LPN - 04/14/2025 2:38 PM EDT Patient scheduled to see Dr. Anderson on Monday. * Telephone Encounter - Alejandro Reynolds LPN - 04/14/2025 9:53 AM EDT Called patients daughter back and made sure that the shipment of TPN has been received and she stated that they received it and glucose are down to the 200's but patient still not eating and barely drinking. She also wanted to know what next steps are I let her know that Dr. Anderson referred her to ourGI team for pancreatic stent placement. She's states that at this time she doesn't feel that patient is well enough for procedure and wanted to know what Dr. Anderson recommends to help patient. * Telephone Encounter - Amanda Garcia - 04/11/2025 4:53 PM EDT Patient Phone Message Reason for Call: Patient is almost out of TPN bags. Also her blood sugar has been high at 1:50 today it was 332. Shesaid it has been running at this for the past couple of days. Best contact number and optimal time of day to reach caller: [phone] Note: Please do not reply to this message. Follow-up communication and further actions as a result of this message need to be communicated with the patient directly, if the patient is not active onMyChart. If the patient is active on MyChart, they will receive notification of the communication/outcome via Gen110. documented in this encounter Plan of Treatment Upcoming Encounters Date Type Department Care Team (Late st Contact Info) Description 06/13/2025 10:00 AM EST Office Visit [facility] Multidisciplinary Oncology Clinic [address] [place] [address] Vibha Osborn, YOBANI [address] [facility] [address] [place] [address] documented as of this encounter Goals Goal [...] documented as of this encounter Care Teams Template Storage Clerk Relationship Specialty Start Date End Date Golden Newell MD [address] [place] [address] PCP - General 12/04/20 documented as of this encounter
--- OUTSIDE RECORDS SUMMARY | 2025-06-06 22:18 | XMS_ITS | Clinical Summary ---
Author Organization [facility] Address [address] [place] [address] Care Team Providers Care Bicycle Fitter Name Role Phone Golden Newell MD Primary Care Provider [phone] Allergies No known active allergies Medications aspirin 81 MG EC tablet Take 1 tablet by mouth daily. Active atorvastatin (Lipitor) 80 MG tablet Take 1 tablet by mouth daily. Active amLODIPine (Norvasc) 5 MG tablet Take 1 tablet by mouth daily. 30 tablet 1 04/05/20 25 Active Blood Glucose Monitoring Suppl device Check blood sugar, twice daily. Once, one hour after TPN disconnects, and one hour after TPN connection. 1 each 04/04/20 25 Active glucose blood test strip Test two times daily 100 strip 11 04/04/20 25 Active Lancets misc Test two times daily 100 each 11 04/04/20 25 Active Alcohol Sheets (Alcoh-Wipe) sheet Use as directed. 100 each 04/04/20 25 Active pen needle, diabetic 31G X 5 MM misc Use as directed with insulin pen. 100 each 04/04/20 25 Active Lidocaine (Lidoderm) 4 % patch Apply 1 patch topically 1 (one) time each day at the same time over 12 hours. Remove & discard patch within 12 hours or as directed by . 30 patch 06/02/20 25 026 Active naloxone (Narcan) 4 mg/0.1 mL nasal spray 1. Give 1 spray in nostril for no/slow breathing or cannot wake after opioid use 2. Call 911 3. Repeat in other nostril if symptoms continue 1 each 06/02/20 25 Active pantoprazole (Protonix) 40 MG EC tablet Take 1 tablet by mouth daily. Do not crush, chew, or split. 60 tablet 06/03/20 25 Active acetaminophen (Tylenol) 500 MG tablet Take 2 tablets by mouth every 8 hours for 15 days. 90 tablet 06/02/20 25 Active gabapentin (Neurontin) 300 MG capsule Take 1 capsule by mouth 2 times a day. 60 capsule 06/02/20 25 Active Blood Glucose Monitoring Suppl device Test two times daily 1 each 06/02/20 Active glucose blood test strip Test two times daily 100 strip 11 06/02/20 Active Lancets misc Test two times daily 100 each 06/02/20 Active Alcohol Sheets (Alcoh-Wipe) sheet Use as directed. 100 each 06/02/20 Active pen needle, diabetic 31G X 5 MM misc Use as directed with insulin pen. 100 each 06/02/20 Active insulin glargine (Lantus SoloStar) 100 UNIT/ML injection pen Inject 24 Units under the skin every morning. Please administer 24 units 1 hour after starting TPN. Check your blood sugar twice a day and if your blood sugar is less than 110, then administer 12 units of lantus instead of 24units 30 mL 06/02/20 25 Active glucose (Trueplus Glucose) 4 g chewable tablet Chew 4 tablets as needed for low blood sugar. 50 tablet 5 06/02/20 25 Active methocarbamol (Robaxin) 500 MG tablet Take 2 tablets by mouth 4 times a day. 90 tablet 06/02/20 25 Active ondansetron ODT (Zofran-ODT) 4 MG disintegrating tablet Dissolve 1 tablet on the tongue every 6 hours as needed for nausea or vomiting. 20 tablet 06/02/20 25 Active senna-docusate (Lacey-Colace) 8.6-50 MG tablet Take 1 tablet by mouth nightly. 30 tablet 06/02/20 25 Active Continue current TPN formula See AVS for most recent TPN formula. 1 Package 06/02/20 Active prochlorperazine (Compazine) 5 MG tablet Take 1 tablet by mouth every 6 hours as needed for nausea or vomiting. 30 tablet 12/10/20 25 Active promethazine (Phenergan) 12.5 MG suppository Insert 1 suppository into the rectum every 6 hours as needed for nausea or vomiting. 12 each 06/04/20 25 Active prochlorperazine (Compazine) 5 MG tablet Take 1 tablet by mouth every 6 hours as needed for nausea or vomiting. 30 tablet 06/04/20 25 Active HYDROcodone-aceta minophen ([place]) 5-325 MG tablet every 4 hours as needed. Discontinu ed(Entered in Error) cyanocobalamin (Vitamin B-12) 1000 MCG tablet Take 1 tablet by mouth 1 (one) time each day at the same time. Discontinu ed(Entered in Error) calcium carbonate (Tums) 500 MG chewable tablet Chew 1 tablet daily. Discontinu ed(Entered in Error) Calcium Carb-Cholecalcife rol (CALCIUM + VITAMIN D3 PO) Take by mouth. Discontinu ed(Entered in Error) Adult 2-in-1 TPN Infuse 70 mL/hr into a venous catheter continuously at 70 mL/hr over 24 hours (central line). 04/04/20 Discontinu ed(Entered in Error) fat emulsion fish/plant based (SMOFlipid) 20 % Infuse 250 mL into a venous catheter every other day at 20.8 mL/hr over 12 hours. 04/04/20 Discontinu ed(Entered in Error) lidocaine (Lidoderm) 5 % patch Apply 1 patch topically 1 (one) time each day at the same time over 12 hours. Remove & discard patch within 12 hours or as directed by MD. 10 patch 04/04/20 Discontinu ed(Stop Taking at Discharge) oxyCODONE (Roxicodone) 5 MG immediate release tablet Take 1 tablet by mouth every 8 hours as needed for moderate pain. 12 tablet 04/04/20 25 Discontinu ed(Stop Taking at Discharge) pantoprazole (Protonix) 40 MG EC tablet Take 1 tablet by mouth daily. Do not crush, chew, or split. 90 tablet 04/05/20 25 Discontinu ed(Stop Taking at Discharge) insulin glargine (Lantus SoloStar) 100 UNIT/ML injection pen Inject 8 Units under the skin 1 (one) time each day at the same time. Inject 8u one hour after TPN supervisor anodizing. 3 mL 04/04/20 Discontinu ed(Entered in Error) Alcohol Swabs (Alcohol Prep) 70 % pads 04/04/20 Discontinu ed(Entered in Error) ciprofloxacin (Cipro) 500 MG tablet Take 1 tablet by mouth 2 times a day. 01/29/20 Discontinu ed(Entered in Error) Blood Glucose Monitoring Suppl (True Metrix Meter) w/Device kit 04/04/20 Discontinu ed(Entered in Error) ondansetron ODT (Zofran-ODT) 4 MG disintegrating tablet Dissolve 1 tablet on the tongue every 8 hours as needed for nausea or vomiting. 20 tablet 04/11/20 Discontinu ed(Stop Taking at Discharge) oxyCODONE (Roxicodone) 5 MG immediate release tablet Take 2 tablets by mouth every 4 hours as needed for moderate pain or severe pain for up to 3 days. 36 tablet 06/02/20 Active Problems Problem Noted Date Diagnosed Date HTN (hypertension) 05/27/2025 Vascular problem 05/27/2025 Pancreatic cyst 05/27/2025 Pleural effusion associated with pulmonary infec tion 05/27/2025 Abdominal pain 05/20/2025 Peripancreatic fluid collection 05/14/2025 Pleural effusion 05/13/2025 Overview (05/30/2025): Left VATS total pulmonary decortication. Chest tubes x2 On total parenteral nutrition (TPN) 04/02/2025 Overview (05/29/2025): - initiated on 05/20/25 -daily CMP,mg,phos -weekly pre-albumin, triglycerides - PICC Placement Abnormal blood electrolyte level 03/21/2025 Overview (03/21/2025): - daily/PRN CMP, Mg, Phos - replete as appropriate - goal: K>4, phos>3, mg>2 HLD (hyperlipidemia) 03/21/2025 Overview (03/28/2025): Continue statin History of CVA (cerebrovascular accident) 2024 Overview (03/21/2025): 11/2020 CT Head showed old left occipital & left temporal infarcts. On ASA 81mg daily. 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 Diff: +GDH- Toxin, all other negative (03/30) Bradycardia 12/06/2020 03/21/2025 Overview (12/07/2020): - HR 40s-50s at baseline, decreases as low as 35 while asleep - Cardiology contacted overnight, nothing to do as pt is asymptomatic and HD stable - Asymptomatic, BP stable - Will continue to monitor Encounters Date Type Department Care Team Description 06/05/2025 Telephone [facility] [address] [place] [address] Franchesca Aguilar Nutrition f/u 06/04/2025 3:26 AM EST - 06/04/2025 6:45 AM EST Emergency [facility] Emergency Department [address] [place], [place] [id number] Nory Burt MD Shortness of breath (Primary Dx); Nausea Discharge Disposition: Home or Self Care 06/04/2025 Travel 06/01/2025 Travel 05/31/2025 Travel 05/30/2025 Travel 05/29/2025 Travel 05/28/2025 Travel 05/27/2025 3:21 PM EST Anesthesia Event [facility] OPERATING ROOM [address] [place], [place] [phone] Gabriel Duran, Amena Layton, LOG SNAKER, DNP 05/27/2025 2:59 PM EST - 05/27/2025 6:39 PM EST Surgery [facility] [address] [place], [place] [id number] Dylon Griggs MD VATS Decortication [78662 (CPT )] 05/27/2025 Travel 05/26/2025 Travel 05/25/2025 Travel 05/24/2025 Travel 05/23/2025 Travel 05/22/2025 Travel 05/21/2025 Travel 05/20/2025 Travel 05/17/2025 Travel 05/14/2025 Travel 05/13/2025 6:45 PM EST - 06/02/2025 5:20 PM EST Hospital Encounter [facility]patient [place] [address] Lan Ledezma MD Micciche, MD Zenobia Carballo Leah K, MD Kim, Joseph, MD Abdominal pain, unspecified abdominal location (Primary Dx); Nausea and vomiting, unspecified vomiting type; Peripancreatic fluid collection; IPMN (intraductal papillary mucinous neoplasm); Pituitary adenoma (CMS/HCC); Pleural effusion; On total parenteral nutrition (TPN) Discharge Disposition: Home-Health Care Svc 05/13/2025 Travel 05/13/2025 Telephone [facility] [address] [place], [place] [phone] Alesia Cui, LOG SNAKER 04/30/2025 1:00 PM EST Office Visit [facility] [address], [place] [phone] Alesia Cui, LOG SNAKER IPMN (intraductal papillary mucinous neoplasm) (Primary Dx) 04/30/2025 Travel 04/24/2025 Telephone [facility] [address] [place] [address] Lokesh Anderson MD 04/23/2025 11:15 AM EDT Office Visit [facility] [address] [place] [address] Lokesh Anderson MD IPMN (intraductal papillary mucinous neoplasm) (Primary Dx) 04/23/2025 Travel 04/11/2025 Telephone [facility] [address] [place] [address] Lokesh Anderson MD 04/11/2025 Orders Only [facility] [address] [place] [address] Vibha Osborn, LOG SNAKER 04/10/2025 Orders Only [facility] [address] [place] [address] Lokesh Anderson MD 04/10/2025 Telephone [facility] [address] [place] [address] Lokesh Anderson MD 04/10/2025 Telephone [facility] [address] [place] [phone] Lokesh Anderson MD 04/10/2025 Telephone [facility] [address] [place] [address] Lokesh Anderson MD 04/09/2025 10:00 AM EDT Clinical Support [facility] [address] [place] [address] IPMN (intraductal papillary mucinous neoplasm) 04/09/2025 9:15 AM EDT Office Visit [facility] [address] [place] [address] Lokesh Anderson MD IPMN (intraductal papillary mucinous neoplasm) (Primary Dx) 04/09/2025 Travel 04/07/2025 Telephone [facility] [address] [place] [address] Lokesh Anderson MD 04/07/2025 Telephone [facility] [address] [place] [address] Lokesh Anderson MD 03/31/2025 Travel 03/29/2025 Travel 03/27/2025 Travel 03/22/2025 Travel 03/20/2025 7:45 AM EDT - 03/20/2025 12:45 PM EDT Surgery [facility] [address] [place] [address] Lokesh Anderson MD PANCREATECTOMY, CHOLECYSTECTOMY [94824 (CPT )] 03/20/2025 7:43 AM EDT Anesthesia Event [facility] [address] [place] [address] Jaya Krishna, Rachel Gold, LOG SNAKER 03/20/2025 5:28 AM EDT - 04/04/2025 5:20 PM EDT Hospital Encounter [facility]patient [facility] [address] [place] [address] Lokesh Anderson MD On total parenteral nutrition (TPN) (Primary Dx); IPMN (intraductal papillary mucinous neoplasm); Leukocytosis, unspecified type Discharge Disposition: Home-Health Care Svc 03/20/2025 Travel 03/18/2025 Telephone [facility] [address] [place] [address] Lokesh Anderson MD 03/13/2025 3:45 PM EDT Pre-Admission Testing [facility] Pre-op Clinic [address] [place] [address] 03/13/2025 Travel 03/10/2025 Telephone [facility] [address] [place] [address] Lokesh Anderson MD from Last 3 Months Family History Medical History Relation Name Comments Cancer Mother Anesthesia problems Neg Hx Malig Hyperthermia Neg Hx Relation Name Status Comments Mother Social History Tobacco Use Types Packs/Day Years [...] fpc (including now)? No 05/14/2025 [facility] Utilities Answer Date Recorded In the [...] Mass Index 26.3 05/27/2025 2:26 PM EST Plan of Treatment Upcoming Encounters Date Type Department Care Team (Late st Contact Info) Description 06/13/2025 10:00 AM EST Office Visit [facility] [address] [place] [address] Vibha Osborn E, LOG SNAKER [address] [place] [address] Health Maintenance Due Date Last Done Comments [facility]-Bone Density Scan 1955 [facility]-Medicare Annual Wellness (AWV) 1955 [facility]-Infant/Child/Adol SDOH Screenings 1955 [id number] Vaccine (#1) 03/15/1956 Diabetes: Dental Exam 09/13/1963 CT Colonography 1998 Colonoscopy 1998 FIT 1998 FOBT 1998 Sigmoidoscopy 1998 [facility]-Breast Cancer Screening 09/13/2003 [facility]-RSV Vaccine: 60+ Years or (1 - Risk 50-74 years 1-dose series) 09/13/2003 [facility]-DTaP,Tdap,and Td Vaccines (1 - Tdap) 11/24/2005 11/23/2005, 04/30/2003, 09/05/1996 [facility]-Zoster Vaccines (1 of 2) 07/02/2015 05/07/2015 [facility]-Diabetes: Hemoglobin A1C 06/04/2021 12/05/2020 [facility]-Influenza Vaccine (#1) 2025 03/08/2021 [facility]- SDOH Screenings 11/11/2025 [facility]-Adult SDOH Screenings 11/11/2025 05/14/2025 [facility]-Depression Screening 04/30/2026 04/30/2025, 03/26 FIT-DNA 09/10/2027 09/09/2024 [facility]-Colorectal Cancer Screening 09/10/2027 [facility]-Pneumococcal Vaccine: 50+ Years Completed 08/29/2024, 08/10/2022 [facility]-Hepatitis C Screening Completed 05/13/2025, 04/2021 [facility]-Obesity Intervention Completed 025, 04/30/2025, 04/23/2025, Additional history exists HPV Vaccines (No Doses Required) Completed [facility]-HIB Vaccines Aged Out No longer e [...] ed Goal Care Plan Autogenerated Problem No Lokseh Anderson MD Procedures Procedure Name Priority Date/Time Associated Diagnosis Comments CT ANGIO PULMONARY EMBOLISM STAT 06/04/2025 5:[address] ABDOMEN PELVIS W IV CONTRAST STAT 06/04/2025 5:23 AM EST EXTRA TUBE LIGHT BLUE TOP Routine 06/04/2025 4:31 AM EST EXTRA TUBES Routine 06/04/2025 4:31 AM EST C-REACTIVE PROTEIN, PLASMA STAT 06/04/2025 4:31 AM EST LACTATE, VENOUS STAT 06/04/2025 4:31 AM EST LIPASE, PLASMA STAT 06/04/2025 4:31 AM EST PHOSPHORUS, PLASMA STAT 06/04/2025 4: 31 AM EST MAGNESIUM, PLASMA STAT 06/04/2025 4:3 1 AM EST COMPREHENSIVE METABOLIC PANEL, PLASMA STAT 06/04/2025 4:31 AM EST CBC WITH AUTO DIFFERENTIAL STAT 06/04/2025 4:31 AM EST XR CHEST 1 VIEW STAT 06/04/2025 4:09 AM EST ECG ADULT STAT 06/04/2025 3:30 AM EST POCT GLUCOSE METER UNSOLICITED RESULTS Routine 06/02/2025 11:32 AM EST POCT GLUCOSE METER UNSOLICITED RESULTS Routine 06/02/2025 5:37 AM EST COMPREHENSIVE METABOLIC PANEL, PLASMA Routine 06/02/2025 3:29 AM EST PHOSPHORUS, PLASMA Routine 06/02/2025 3: 29 AM EST MAGNESIUM, PLASMA Routine 06/02/2025 3:2 9 AM EST CBC W/O DIFFERENTIAL Routine 06/02/2025 3:29 AM EST POCT GLUCOSE [...] UNSOLICITED RESULTS Routine 06/01/2025 6:02 AM EST COMPREHENSIVE METABOLIC PANEL, PLASMA Routine 06/01/2025 4:10 AM EST PHOSPHORUS, PLASMA Routine 06/01/2025 4: 10 AM EST MAGNESIUM, PLASMA Routine 06/01/2025 4:1 0 AM EST CBC W/O DIFFERENTIAL Routine 06/01/2025 4:10 AM EST CHEST PHYSIOTHERAPY [...] 1 VIEW Routine 05/31/2025 5:19 AM EST COMPREHENSIVE METABOLIC PANEL, PLASMA Routine 05/31/2025 4:57 AM EST PHOSPHORUS, PLASMA Routine 05/31/2025 4: 57 AM EST MAGNESIUM, PLASMA Routine 05/31/2025 4:5 7 AM EST CBC W/O DIFFERENTIAL Routine 05/31/2025 4:57 AM EST CHEST PHYSIOTHERAPY [...] 1 VIEW Routine 05/30/2025 5:11 AM EST TRIGLYCERIDES, PLASMA Add-On 05/30/2025 3:47 AM EST COMPREHENSIVE METABOLIC PANEL, PLASMA Routine 05/30/2025 3:47 AM EST PHOSPHORUS, PLASMA Routine 05/30/2025 3: 47 AM EST MAGNESIUM, PLASMA Routine 05/30/2025 3:4 7 AM EST CBC W/O DIFFERENTIAL Routine 05/30/2025 3:47 AM EST CHEST PHYSIOTHERAPY [...] 1 VIEW Routine 05/29/2025 4:57 AM EST COMPREHENSIVE METABOLIC PANEL, PLASMA Routine 05/29/2025 3:55 AM EST PHOSPHORUS, PLASMA Routine 05/29/2025 3: 55 AM EST MAGNESIUM, PLASMA Routine 05/29/2025 3:5 5 AM EST CBC W/O DIFFERENTIAL Routine 05/29/2025 3:55 AM EST POCT GLUCOSE [...] 1 VIEW Timed 05/28/2025 6:25 AM EST COMPREHENSIVE METABOLIC PANEL, PLASMA Routine 05/28/2025 4:59 AM EST PHOSPHORUS, PLASMA Routine 05/28/2025 4: 59 AM EST MAGNESIUM, PLASMA Routine 05/28/2025 4:5 9 AM EST CBC W/O DIFFERENTIAL Routine 05/28/2025 4:59 AM EST POCT GLUCOSE METER UNSOLICITED RESULTS Routine 05/28/2025 4:56 AM EST POCT GLUCOSE METER UNSOLICITED RESULTS Routine 05/27/2025 11:46 PM EST OXYGEN THERAPY Routine 05/27/2025 8:00 PM EST POCT GLUCOSE METER UNSOLICITED RESULTS Routine 05/27/2025 7:56 PM EST XR CHEST 1 VIEW STAT 05/27/2025 7:24 PM EST LIPASE, FLUID (SO) Routine 05/27/2025 6: 34 PM EST AMYLASE, PLEURAL FLUID Routine 6:34 PM EST FUNGAL CULTURE, STERILE BODY FLUID (NOT CSF) AND MODESTO Routine 05/27/2025 6:34 PM EST ANAEROBIC CULTURE Routine 05/27/2025 6:3 4 PM EST BODY FLUID CULTURE AND GRAM STAIN Routine 05/27/2025 6:34 PM EST OXYGEN THERAPY Routine 05/27/2025 5:59 PM EST OXYGEN THERAPY Routine 05/27/2025 5:59 PM EST OXYGEN THERAPY Routine 05/27/2025 5:59 PM EST TRANSFUSE RED BLOOD CELLS Routine 05/27/2025 5:29 PM EST PREPARE RBC STAT 05/27/2025 4:23 PM EST PB ANESTHESIA PLACEHOLDER Routine 05/27/2025 3:41 PM EST TN AN ELECTIVE ENDOTRACHEAL AIRWAY Routine 05/27/2025 3:41 PM EST TN THORACOSCOPY SURG TOT PULM DECORT 05/27/2025 3:14 PM EST Pleural effusion POCT GLUCOSE METER UNSOLICITED RESULTS Routine 05/27/2025 2:35 PM EST POCT GLUCOSE METER UNSOLICITED RESULTS Routine 05/27/2025 12:23 PM EST TYPE AND SCREEN Routine 05/27/2025 11:33 AM EST XR CHEST 1 VIEW Timed 05/27/2025 5:27 AM EST COMPREHENSIVE METABOLIC PANEL, PLASMA Routine 05/27/2025 4:52 AM EST PHOSPHORUS, PLASMA Routine 05/27/2025 4: 52 AM EST MAGNESIUM, PLASMA Routine 05/27/2025 4:5 2 AM EST CBC W/O DIFFERENTIAL Routine 05/27/2025 4:52 AM EST POCT GLUCOSE METER UNSOLICITED RESULTS Routine 05/27/2025 4:51 AM EST POCT GLUCOSE METER UNSOLICITED RESULTS Routine 05/27/2025 12:04 AM EST POCT GLUCOSE METER UNSOLICITED RESULTS Routine 05/26/2025 5:56 PM EST POCT GLUCOSE METER UNSOLICITED RESULTS Routine 05/26/2025 12:02 PM EST COMPREHENSIVE METABOLIC PANEL, PLASMA Routine 05/26/2025 5:50 AM EST PHOSPHORUS, PLASMA Routine 05/26/2025 5: 50 AM EST MAGNESIUM, PLASMA Routine 05/26/2025 5:5 0 AM EST CBC W/O DIFFERENTIAL Routine 05/26/2025 5:50 AM EST POCT GLUCOSE [...] Routine 05/25/2025 12:40 PM EST Pleural effusion TN TUBE THORACOSTOMY INCLUDES WATER SEAL Routine 05/25/2025 12:40 PM EST Pleural effusion AMYLASE, DRAIN FLUID Routine 05/25/2025 12:37 PM EST LIPASE, FLUID (SO) Routine 05/25/2025 12:37 PM EST POCT GLUCOSE METER UNSOLICITED RESULTS Routine 05/25/2025 11:32 AM EST XR CHEST 1 VIEW STAT 05/25/2025 6:47 AM EST COMPREHENSIVE METABOLIC PANEL, PLASMA Routine 05/25/2025 5:07 AM EST PHOSPHORUS, PLASMA Routine 05/25/2025 5: 07 AM EST MAGNESIUM, PLASMA Routine 05/25/2025 5:0 7 AM EST CBC W/O DIFFERENTIAL Routine 05/25/2025 5:07 AM EST POCT GLUCOSE METER UNSOLICITED RESULTS Routine 05/25/2025 5:04 AM EST POCT GLUCOSE METER UNSOLICITED RESULTS Routine 05/24/2025 11:11 PM EST POCT GLUCOSE METER UNSOLICITED RESULTS Routine 05/24/2025 6:06 PM EST POCT GLUCOSE METER UNSOLICITED RESULTS Routine 05/24/2025 11:20 AM EST POCT GLUCOSE METER UNSOLICITED RESULTS Routine 05/24/2025 7:34 AM EST COMPREHENSIVE METABOLIC PANEL, PLASMA Routine 05/24/2025 4:58 AM EST PHOSPHORUS, PLASMA Routine 05/24/2025 4: 58 AM EST MAGNESIUM, PLASMA Routine 05/24/2025 4:5 8 AM EST CBC W/O DIFFERENTIAL Routine 05/24/2025 4:58 AM EST POCT GLUCOSE [...] UNSOLICITED RESULTS Routine 05/23/2025 4:38 AM EST COMPREHENSIVE METABOLIC PANEL, PLASMA Routine 05/23/2025 4:29 AM EST PHOSPHORUS, PLASMA Routine 05/23/2025 4: 29 AM EST MAGNESIUM, PLASMA Routine 05/23/2025 4:2 9 AM EST CBC W/O DIFFERENTIAL Routine 05/23/2025 4:29 AM EST XR CHEST [...] UNSOLICITED RESULTS Routine 05/22/2025 6:22 AM EST COMPREHENSIVE METABOLIC PANEL, PLASMA Routine 05/22/2025 3:53 AM EST PHOSPHORUS, PLASMA Routine 05/22/2025 3: 53 AM EST MAGNESIUM, PLASMA Routine 05/22/2025 3:5 3 AM EST CBC W/O DIFFERENTIAL Routine 05/22/2025 3:53 AM EST XR CHEST [...] UNSOLICITED RESULTS Routine 05/21/2025 5:16 AM EST COMPREHENSIVE METABOLIC PANEL, PLASMA Routine 05/21/2025 3:15 AM EST PHOSPHORUS, PLASMA Routine 05/21/2025 3: 15 AM EST MAGNESIUM, PLASMA Routine 05/21/2025 3:1 5 AM EST CBC W/O DIFFERENTIAL Routine 05/21/2025 3:15 AM EST POCT GLUCOSE METER UNSOLICITED RESULTS Routine 05/20/2025 11:33 PM EST POCT GLUCOSE METER UNSOLICITED RESULTS Routine 05/20/2025 8:[address] ABDOMEN PELVIS W IV CONTRAST STAT 05/20/2025 2:21 PM EST INSERT PICC LINE Routine 05/20/2025 9:05 AM EST TRIGLYCERIDES, PLASMA Add-On 05/20/2025 1:32 AM EST COMPREHENSIVE METABOLIC PANEL, PLASMA Routine 05/20/2025 1:32 AM EST PHOSPHORUS, PLASMA Routine 05/20/2025 1: 32 AM EST MAGNESIUM, PLASMA Routine 05/20/2025 1:3 2 AM EST CBC W/O DIFFERENTIAL Routine 05/20/2025 1:32 AM EST ECG ADULT STAT 05/19/2025 7:40 PM EST TROPONIN T, HIGH SENSITIVITY, 2 HOUR, PLASMA Timed 05/19/2025 10:59 AM EST TROPONIN T, HIGH SENSITIVITY, 0 HOUR, PLASMA, REFLEX TO 2 HOUR STAT 05/19/2025 8:12 AM EST ECG ADULT STAT 05/19/2025 7:59 AM EST COMPREHENSIVE METABOLIC PANEL, PLASMA Routine 05/19/2025 4:22 AM EST PHOSPHORUS, PLASMA Routine 05/19/2025 4: 22 AM EST MAGNESIUM, PLASMA Routine 05/19/2025 4:2 2 AM EST CBC W/O DIFFERENTIAL Routine 05/19/2025 4:22 AM EST COMPREHENSIVE METABOLIC PANEL, PLASMA Pending Discharge 05/18/2025 4:33 AM EST PHOSPHORUS, PLASMA Pending Discharge 05/18/2025 4:33 AM EST MAGNESIUM, PLASMA Pending Discharge 05/18/2025 4:33 AM EST CBC W/O DIFFERENTIAL Pending Discharge 05/18/2025 4:[address] ABDOMEN PELVIS W IV CONTRAST STAT 05/17/2025 10:15 AM EST COMPREHENSIVE METABOLIC PANEL, PLASMA Routine 05/17/2025 12:03 AM EST PHOSPHORUS, PLASMA Routine 05/17/2025 12:03 AM EST MAGNESIUM, PLASMA Routine 05/17/2025 12:03 AM EST CBC W/O DIFFERENTIAL Routine 05/17/2025 12:03 AM EST PREALBUMIN, PLASMA Add-On 05/16/2025 12:20 AM EST COMPREHENSIVE METABOLIC PANEL, PLASMA Routine 05/16/2025 12:20 AM EST PHOSPHORUS, PLASMA Routine 05/16/2025 12:20 AM EST MAGNESIUM, PLASMA Routine 05/16/2025 12:20 AM EST CBC W/O DIFFERENTIAL Routine 05/16/2025 12:20 AM EST COMPREHENSIVE METABOLIC PANEL, PLASMA Timed 05/15/2025 2:18 AM EST MAGNESIUM, PLASMA Timed 05/15/2025 2:1 8 AM EST PHOSPHORUS, PLASMA Timed 05/15/2025 2: 18 AM EST CBC W/O DIFFERENTIAL Timed 05/15/2025 2:18 AM EST POCT GLUCOSE [...] PANEL, PLASMA STAT 05/13/2025 6:44 PM EST CBC W/O DIFFERENTIAL Routine 04/09/2025 10:14 AM EDT IPMN (intraductal papillary mucinous neoplasm) COMPREHENSIVE METABOLIC PANEL, PLASMA Routine 04/09/2025 10:14 AM EDT IPMN (intraductal papillary mucinous neoplasm) PREALBUMIN, PLASMA Routine 04/09/2025 10:14 AM EDT IPMN (intraductal papillary mucinous neoplasm) POCT GLUCOSE METER UNSOLICITED RESULTS Routine 04/04/2025 11:38 AM EDT POCT GLUCOSE METER UNSOLICITED RESULTS Routine 04/04/2025 7:46 AM EDT POCT GLUCOSE METER UNSOLICITED RESULTS Routine 04/04/2025 6:36 AM EDT PHOSPHORUS, PLASMA Routine 04/04/2025 3: 48 AM EDT MAGNESIUM, PLASMA Routine 04/04/2025 3:4 8 AM EDT COMPREHENSIVE METABOLIC PANEL, PLASMA Routine 04/04/2025 3:48 AM EDT CBC W/O DIFFERENTIAL Routine 04/04/2025 3:48 AM EDT PHOSPHORUS, PLASMA Routine 04/03/2025 3: 30 AM EDT MAGNESIUM, PLASMA Routine 04/03/2025 3:3 0 AM EDT COMPREHENSIVE METABOLIC PANEL, PLASMA Routine 04/03/2025 3:30 AM EDT CBC W/O DIFFERENTIAL Routine 04/03/2025 3:30 AM EDT ECG ADULT Routine 04/02/2025 6:44 AM EDT PHOSPHORUS, PLASMA Routine 04/02/2025 3: 55 AM EDT MAGNESIUM, PLASMA Routine 04/02/2025 3:5 5 AM EDT COMPREHENSIVE METABOLIC PANEL, PLASMA Routine 04/02/2025 3:55 AM EDT CBC W/O DIFFERENTIAL Routine 04/02/2025 3:55 AM EDT POCT GLUCOSE METER UNSOLICITED RESULTS Routine 04/01/2025 11:36 PM EDT PHOSPHORUS, PLASMA Routine 04/01/2025 3: 26 AM EDT MAGNESIUM, PLASMA Routine 04/01/2025 3:2 6 AM EDT COMPREHENSIVE METABOLIC PANEL, PLASMA Routine 04/01/2025 3:26 AM EDT CBC W/O DIFFERENTIAL Routine 04/01/2025 3:26 AM EDT POCT GLUCOSE METER UNSOLICITED RESULTS Routine 03/31/2025 6:18 PM EDT POCT GLUCOSE METER UNSOLICITED RESULTS Routine 03/31/2025 11:45 AM EDT XR ABDOMEN 1 VIEW STAT 03/31/2025 8:4 8 AM EDT POCT GLUCOSE METER UNSOLICITED RESULTS Routine 03/31/2025 8:33 AM EDT TROPONIN T, HIGH SENSITIVITY, 2 HOUR, PLASMA Timed 03/31/2025 6:02 AM EDT XR CHEST 1 VIEW STAT 03/31/2025 4:45 AM EDT ECG ADULT STAT 03/31/2025 3:57 AM EDT TROPONIN T, HIGH SENSITIVITY, 0 HOUR, PLASMA, REFLEX TO 2 HOUR STAT 03/31/2025 3:56 AM EDT PHOSPHORUS, PLASMA Routine 03/31/2025 3: 56 AM EDT MAGNESIUM, PLASMA Routine 03/31/2025 3:5 6 AM EDT COMPREHENSIVE METABOLIC PANEL, PLASMA Routine 03/31/2025 3:56 AM EDT CBC W/O DIFFERENTIAL Routine 03/31/2025 3:56 AM EDT POCT GLUCOSE METER UNSOLICITED RESULTS Routine 03/31/2025 3:38 AM EDT POCT GLUCOSE METER UNSOLICITED RESULTS Routine 03/30/2025 10:24 PM EDT POCT GLUCOSE METER UNSOLICITED RESULTS Routine 03/30/2025 3:57 PM EDT PHOSPHORUS, PLASMA Routine 03/30/2025 3: 31 PM EDT MAGNESIUM, PLASMA Routine 03/30/2025 3:3 1 PM EDT CBC W/O DIFFERENTIAL Routine 03/30/2025 3:31 PM EDT COMPREHENSIVE METABOLIC PANEL, PLASMA Routine 03/30/2025 3:31 PM EDT POCT GLUCOSE METER UNSOLICITED RESULTS Routine 03/30/2025 12:01 PM EDT INSERT PICC LINE Routine 03/30/2025 11:43 AM EDT POCT GLUCOSE METER UNSOLICITED RESULTS Routine 03/30/2025 7:31 AM EDT PHOSPHORUS, PLASMA Pending Discharge 03/30/2025 1:45 AM EDT MAGNESIUM, PLASMA Pending Discharge 03/30/2025 1:45 AM EDT COMPREHENSIVE METABOLIC PANEL, PLASMA Pending Discharge 03/30/2025 1:45 AM EDT CBC W/O DIFFERENTIAL Pending Discharge 03/30/2025 1:45 AM EDT URINALYSIS MICROSCOPIC FOR UA REFLEX Routine 03/30/2025 12:59 AM EDT URINALYSIS WITH REFLEX MICROSCOPIC Routine 03/30/2025 12:59 AM EDT CLOSTRIDIUM DIFFICILE EIA Routine 03/30/2025 12:59 AM EDT CLOSTRIDIODES (CLOSTRIDIUM) DIFFICILE,PCR Routine 03/30/2025 12:59 AM EDT COMPREHENSIVE GI PANEL BY PCR Routine 03/30/2025 12:59 AM EDT POCT GLUCOSE METER UNSOLICITED RESULTS Routine 03/29/2025 7:[address] ABDOMEN PELVIS W IV CONTRAST STAT 03/29/2025 4:15 PM EDT POCT GLUCOSE METER UNSOLICITED RESULTS Routine 03/29/2025 3:41 PM EDT POCT GLUCOSE METER UNSOLICITED RESULTS Routine 03/29/2025 10:55 AM EDT XR ABDOMEN 1 VIEW STAT 03/29/2025 8:4 8 AM EDT POCT GLUCOSE METER UNSOLICITED RESULTS Routine 03/29/2025 7:24 AM EDT PREALBUMIN, PLASMA Add-On 03/29/2025 6: 12 AM EDT TRIGLYCERIDES, PLASMA Add-On 03/29/2025 6:12 AM EDT PHOSPHORUS, PLASMA Routine 03/29/2025 6: 12 AM EDT MAGNESIUM, PLASMA Routine 03/29/2025 6:1 2 AM EDT COMPREHENSIVE METABOLIC PANEL, PLASMA Routine 03/29/2025 6:12 AM EDT CBC W/O DIFFERENTIAL Routine 03/29/2025 6:12 AM EDT POCT GLUCOSE METER UNSOLICITED RESULTS Routine 03/28/2025 8:28 PM EDT POCT GLUCOSE METER UNSOLICITED RESULTS Routine 03/28/2025 4:47 PM EDT POCT GLUCOSE METER UNSOLICITED RESULTS Routine 03/28/2025 11:45 AM EDT POCT GLUCOSE METER UNSOLICITED RESULTS Routine 03/28/2025 9:27 AM EDT POCT GLUCOSE METER UNSOLICITED RESULTS Routine 03/28/2025 8:30 AM EDT POCT GLUCOSE METER UNSOLICITED RESULTS Routine 03/28/2025 7:34 AM EDT PHOSPHORUS, PLASMA Routine 03/28/2025 3: 57 AM EDT MAGNESIUM, PLASMA Routine 03/28/2025 3:5 7 AM EDT COMPREHENSIVE METABOLIC PANEL, PLASMA Routine 03/28/2025 3:57 AM EDT CBC W/O DIFFERENTIAL Routine 03/28/2025 3:57 AM EDT POCT GLUCOSE METER UNSOLICITED RESULTS Routine 03/27/2025 9:21 PM EDT POCT GLUCOSE METER UNSOLICITED RESULTS Routine 03/27/2025 4:56 PM EDT POCT GLUCOSE METER UNSOLICITED RESULTS Routine 03/27/2025 11:29 AM EDT XR ABDOMEN 1 VIEW STAT 03/27/2025 8:5 0 AM EDT POCT GLUCOSE METER UNSOLICITED RESULTS Routine 03/27/2025 7:58 AM EDT POCT GLUCOSE METER UNSOLICITED RESULTS Routine 03/27/2025 6:45 AM EDT POCT GLUCOSE METER UNSOLICITED RESULTS Routine 03/27/2025 6:15 AM EDT PHOSPHORUS, PLASMA Routine 03/27/2025 4: 27 AM EDT MAGNESIUM, PLASMA Routine 03/27/2025 4:2 7 AM EDT COMPREHENSIVE METABOLIC PANEL, PLASMA Routine 03/27/2025 4:27 AM EDT CBC W/O DIFFERENTIAL Routine 03/27/2025 4:27 AM EDT POCT GLUCOSE METER UNSOLICITED RESULTS Routine 03/26/2025 8:13 PM EDT POCT GLUCOSE METER UNSOLICITED RESULTS Routine 03/26/2025 4:24 PM EDT POCT GLUCOSE METER UNSOLICITED RESULTS Routine 03/26/2025 11:35 AM EDT POCT GLUCOSE METER UNSOLICITED RESULTS Routine 03/26/2025 7:57 AM EDT PHOSPHORUS, PLASMA Routine 03/26/2025 4: 19 AM EDT MAGNESIUM, PLASMA Routine 03/26/2025 4:1 9 AM EDT COMPREHENSIVE METABOLIC PANEL, PLASMA Routine 03/26/2025 4:19 AM EDT CBC W/O DIFFERENTIAL Routine 03/26/2025 4:19 AM EDT POCT GLUCOSE METER UNSOLICITED RESULTS Routine 03/25/2025 8:18 PM EDT POCT GLUCOSE METER UNSOLICITED RESULTS Routine 03/25/2025 5:25 PM EDT AMYLASE, DRAIN FLUID Routine 03/25/2025 4:04 PM EDT WOUND OSTOMY EVAL AND TREAT Routine 03/25/2025 12:33 PM EDT POCT GLUCOSE METER UNSOLICITED RESULTS Routine 03/25/2025 11:38 AM EDT POCT GLUCOSE METER UNSOLICITED RESULTS Routine 03/25/2025 6:18 AM EDT PHOSPHORUS, PLASMA Routine 03/25/2025 2: 48 AM EDT MAGNESIUM, PLASMA Routine 03/25/2025 2:4 8 AM EDT COMPREHENSIVE METABOLIC PANEL, PLASMA Routine 03/25/2025 2:48 AM EDT CBC W/O DIFFERENTIAL Routine 03/25/2025 2:48 AM EDT POCT GLUCOSE METER UNSOLICITED RESULTS Routine 03/25/2025 12:11 AM EDT POCT GLUCOSE METER UNSOLICITED RESULTS Routine 03/24/2025 5:49 PM EDT POCT GLUCOSE METER UNSOLICITED RESULTS Routine 03/24/2025 11:32 AM EDT PHOSPHORUS, PLASMA Routine 03/24/2025 2: 43 AM EDT MAGNESIUM, PLASMA Routine 03/24/2025 2:4 3 AM EDT COMPREHENSIVE METABOLIC PANEL, PLASMA Routine 03/24/2025 2:43 AM EDT CBC W/O DIFFERENTIAL Routine 03/24/2025 2:43 AM EDT POCT GLUCOSE METER UNSOLICITED RESULTS Routine 03/23/2025 11:44 PM EDT ECG ADULT STAT 03/23/2025 8:43 PM EDT POCT GLUCOSE METER UNSOLICITED RESULTS Routine 03/23/2025 6:17 PM EDT POCT GLUCOSE METER UNSOLICITED RESULTS Routine 03/23/2025 11:53 AM EDT PHOSPHORUS, PLASMA Routine 03/23/2025 6: 06 AM EDT MAGNESIUM, PLASMA Routine 03/23/2025 6:0 6 AM EDT COMPREHENSIVE METABOLIC PANEL, PLASMA Routine 03/23/2025 6:06 AM EDT CBC W/O DIFFERENTIAL Routine 03/23/2025 6:06 AM EDT POCT GLUCOSE METER UNSOLICITED RESULTS Routine 03/22/2025 11:30 PM EDT POCT GLUCOSE METER UNSOLICITED RESULTS Routine 03/22/2025 6:06 PM EDT POCT GLUCOSE METER UNSOLICITED RESULTS Routine 03/22/2025 11:24 AM EDT XR ABDOMEN 1 VIEW STAT 03/22/2025 10:20 AM EDT PHOSPHORUS, PLASMA Routine 03/22/2025 5: 20 AM EDT MAGNESIUM, PLASMA Routine 03/22/2025 5:2 0 AM EDT COMPREHENSIVE METABOLIC PANEL, PLASMA Routine 03/22/2025 5:20 AM EDT CBC W/O DIFFERENTIAL Routine 03/22/2025 5:20 AM EDT POCT GLUCOSE METER UNSOLICITED RESULTS Routine 03/21/2025 11:40 PM EDT POCT GLUCOSE METER UNSOLICITED RESULTS Routine 03/21/2025 6:15 PM EDT POCT GLUCOSE METER UNSOLICITED RESULTS Routine 03/21/2025 1:29 PM EDT POCT GLUCOSE METER UNSOLICITED RESULTS Routine 03/21/2025 5:49 AM EDT PHOSPHORUS, PLASMA Routine 03/21/2025 3: 18 AM EDT MAGNESIUM, PLASMA Routine 03/21/2025 3:1 8 AM EDT COMPREHENSIVE METABOLIC PANEL, PLASMA Routine 03/21/2025 3:18 AM EDT CBC W/O DIFFERENTIAL Routine 03/21/2025 3:18 AM EDT POCT GLUCOSE METER UNSOLICITED RESULTS Routine 03/21/2025 12:11 AM EDT POCT GLUCOSE METER UNSOLICITED RESULTS Routine 03/20/2025 7:14 PM EDT BLOOD GAS PANEL, ARTERIAL Routine 03/20/2025 12:10 PM EDT PHOSPHORUS, PLASMA Routine 03/20/2025 12:09 PM EDT MAGNESIUM, PLASMA Routine 03/20/2025 12:09 PM EDT COMPREHENSIVE METABOLIC PANEL, PLASMA Routine 03/20/2025 12:09 PM EDT CBC WITH AUTO DIFFERENTIAL Routine 03/20/2025 12:09 PM EDT POCT ARTERIAL BLOOD GAS GEM UNSOLICITED RESULTS Routine 03/20/2025 10:37 AM EDT ANESTHESIA PERIPHERAL IV PLACEMENT Routine 03/20/2025 9:47 AM EDT SURGICAL PATHOLOGY EXAM Routine 03/20/2025 8:41 AM EDT IPMN (intraductal papillary mucinous neoplasm) POCT ARTERIAL BLOOD GAS GEM UNSOLICITED RESULTS Routine 03/20/2025 8:36 AM EDT PB ANESTHESIA NON-TIMED PROCEDURE PLACEHOLDER Routine 03/20/2025 8:00 AM EDT PB ANESTHESIA PLACEHOLDER Routine 03/20/2025 7:55 AM EDT TN AN ELECTIVE ENDOTRACHEAL AIRWAY Routine 03/20/2025 7:55 AM EDT TN PART REMV PANCREAS,DISTAL SUBTOTAL 03/20/2025 7:28 AM EDT IPMN (intraductal papillary mucinous neoplasm) Special Needs Favian Bloomasure PB ANESTHESIA NON-TIMED PROCEDURE PLACEHOLDER Routine 03/20/2025 7:02 AM EDT TYPE AND SCREEN Routine 03/20/2025 6:24 AM EDT HEMOGLOBIN A1C Routine 12/05/2020 3:01 AM EDT from Last 3 Months or Most Recently Relevant to Health Maintenance Results * CT Angio Pulmonary Embolism (06/04/2025 [...] Total DLP (Dose-Length Product): 1474.75 mGy.cm (accession [id number]), 1474.75 mGy.cm (accession [id number]). Please note: The reported value represents the [...] Total DLP (Dose-Length Product): 1474.75 mGy.cm (accession [id number]),1474.75 mGy.cm (accession [id number]). Please note: The reported valuerepresents the total [...] MD on 06/04/2025 5:49 AM us Nory Burt MD IMG CT PROCEDURES Final Result * CT Abdomen Pelvis w IV Contrast (06/04/2025 5:23 AM EST) Only the most recent of5 resultswithin the time period is included. Anatomical Region Laterality Modality Abdomen, Pelvis Computed [...] Total DLP (Dose-Length Product): 1474.75 mGy.cm (accession [id number]), 1474.75 mGy.cm (accession [id number]). Please note: The reported value represents the [...] Total DLP (Dose-Length Product): 1474.75 mGy.cm (accession [id number]),1474.75 mGy.cm (accession [id number]). Please note: The reported valuerepresents the total [...] Valencia MD on 06/04/2025 5:49 AM Nory Burt MD IMG CT PROCEDURES Final Result * Light Blue Top (06/04/2025 4:31 AM EST) Pathologist [facility] Extra Hold for add-ons 06/04/2025 7:01 AM EST [facility] Comment:Auto resulted. Blood Venous blood specimen / Unknown 06/04/2025 4:31 AM EST 06/04/2025 4:43 AM EST Nory Burt MD LAB BLOOD ORDERABLES Final Resu lt [facility] [address] [place] [address] * Lactic acid, venous (06/04/2025 4:31 AM EST) Lactate, Venous, Whole Blood 1.2 0.5 - 2.2 mmol/L LAB HEMATOLOGY METHOD 06/04/2025 4:51 AM EST [facility] Blood Venous blood specimen / Unknown Venipuncture / Unknown 06/04/2025 4:31 AM EST 06/04/2025 4:43 AM EST us Nory Burt MD LAB BLOOD ORDERABLES Final Resu lt [facility] [address] [place] [address] * (ABNORMAL) CBC w/diff (06/04/2025 4:31 AM EST) Only the most recent of3 resultswithin the time period is included. WBC Count 8.32 3.70 - 10.30 10*3/uL LAB HEMATOLOGY METHOD 06/04/2025 5:10 AM EST [facility] RBC Count 3.19(L) 3.90 - 5.20 10*6/uL LAB HEMATOLOGY METHOD 06/04/2025 5:10 AM EST [facility] HGB 9.4(L) 11.2 - 15.7 g/dL LAB HEMATOLOGY METHOD 06/04/2025 5:10 AM EST [facility] HCT 29.1(L) 34.0 - 45.0 % LAB HEMATOLOGY METHOD 06/04/2025 5:10 AM EST [facility] Platelet Count 637(H) 155 - 369 10*3/uL LAB HEMATOLOGY METHOD 06/04/2025 5:10 AM EST [facility] MCV 91 79 - 98 fL LAB HEMATOLOGY METHOD 06/04/2025 5:10 AM EST [facility] MCH 29.5 26.0 - 32.0 pg LAB HEMATOLOGY METHOD 06/04/2025 5:10 AM EST [facility] MCHC 32.3 30.7 - 35.5 g/dL LAB HEMATOLOGY METHOD 06/04/2025 5:10 AM EST [facility] RDW 16.1(H) 11.5 - 14.5 % LAB HEMATOLOGY METHOD 06/04/2025 5:10 AM EST [facility] MPV 9.6 8.8 - 12.5 fL LAB HEMATOLOGY METHOD 06/04/2025 5:10 AM EST [facility] nRBC 0.0 <=0.0 per 100 WBCs LAB HEMATOLOGY METHOD 06/04/2025 5:10 AM EST [facility] Differential Type Automated LAB HEMATOLOGY METHOD 06/04/2025 5:10 AM EST [facility] Neutrophils % 58 % LAB HEMATOLOGY METHOD 06/04/2025 5:10 AM EST [facility] Lymphocytes % 20 % LAB HEMATOLOGY METHOD 06/04/2025 5:10 AM EST [facility] Monocytes % 17 % LAB HEMATOLOGY METHOD 06/04/2025 5:10 AM EST [facility] Eosinophils % 3 % LAB HEMATOLOGY METHOD 06/04/2025 5:10 AM EST [facility] Basophils % 1 % LAB HEMATOLOGY METHOD 06/04/2025 5:10 AM EST [facility] Immature Granulocytes % 1 % LAB HEMATOLOGY METHOD 06/04/2025 5:10 AM EST [facility] Neutrophils Absolute 4.94 1.60 - 6.10 10*3/uL LAB HEMATOLOGY METHOD 06/04/2025 5:10 AM EST [facility] Lymphocytes Absolute 1.68 1.20 - 3.90 10*3/uL LAB HEMATOLOGY METHOD 06/04/2025 5:10 AM EST [facility] Monocytes Absolute 1.37(H) 0.30 - 0.90 10*3/uL LAB HEMATOLOGY METHOD 06/04/2025 5:10 AM EST [facility] Eosinophils Absolute 0.25 0.00 - 0.50 10*3/uL LAB HEMATOLOGY METHOD 06/04/2025 5:10 AM EST [facility] Basophils Absolute 0.04 0.00 - 0.10 10*3/uL LAB HEMATOLOGY METHOD 06/04/2025 5:10 AM EST [facility] Immature Granulocytes Absolute 0.04 0.00 - 0.06 10*3/uL LAB HEMATOLOGY METHOD 06/04/2025 5:10 AM EST [facility] Blood Venous blood specimen / Unknown Venipuncture / Unknown 06/04/2025 4:31 AM EST 06/04/2025 4:43 AM EST [facility] - 06/04/2025 5:10 AM EST Therapeutic decision making should be based on absolute values, rather than percentages. us Nory Burt MD LAB BLOOD ORDERABLES Final Resu lt [facility] [address] [place] [address] * (ABNORMAL) C-Reactive protein (06/04/2025 4:31 AM EST) CRP, Plasma 56.5(H) <=8.0 mg/L 06/04/2025 5:26 AM EST [facility] Blood Venous blood specimen / Unknown Venipuncture / Unknown 06/04/2025 4:31 AM EST 06/04/2025 4:57 AM EST Narrative [facility] - 06/04/2025 5:26 AM EST This CRP test is appropriate for assessment of infection, systemic inflammation and/or tissue injury. To assess cardiovascular disease risk order high sensitivity CRP (CRPH). Nory Burt MD LAB BLOOD ORDERABLES Final Resu lt Performing Organization Address City/[facility]/ZIP Co de Phone Number [facility] [address] [place] [address] * Phosphorus (06/04/2025 4:31 AM EST) Only the most recent of37 resultswithin the time period is included. Phosphorus, Plasma 3.1 2.5 - 4.5 mg/dL 06/04/2025 5:26 AM EST [facility] Blood Venous blood specimen / Unknown Venipuncture / Unknown 06/04/2025 4:31 AM EST 06/04/2025 4:57 AM EST Nory Burt MD LAB BLOOD ORDERABLES Final Resu lt [facility] [address] [place] [address] * Magnesium (06/04/2025 4:31 AM EST) Only the most recent of37 resultswithin the time period is included. Magnesium, Plasma 1.9 1.9 - 2.4 mg/dL 06/04/2025 5:26 AM EST [facility] Blood Venous blood specimen / Unknown Venipuncture / Unknown 06/04/2025 4:31 AM EST 06/04/2025 4:57 AM EST us Nory Burt MD LAB BLOOD ORDERABLES Final Resu lt Performing Organization Address City/[facility]/ZIP Co de Phone Number [facility] [address] [place] [address] * (ABNORMAL) Lipase (06/04/2025 4:31 AM EST) Only the most recent of2 resultswithin the time period is included. Lipase, Plasma 18(L) 19 - 63 U/L 06/04/2025 5:26 AM EST [facility] Blood Venous blood specimen / Unknown Venipuncture / Unknown 06/04/2025 4:31 AM EST 06/04/2025 4:57 AM EST us Nory Burt MD LAB BLOOD ORDERABLES Final Resu lt Performing Organization Address [facility] de Phone Number [facility] [address] [place] [address] * (ABNORMAL) CMP (06/04/2025 4:31 AM EST) Only the most recent of39 resultswithin the time period is included. Glucose, Plasma 216(H) 74 - 99 mg/dL 06/04/2025 5:26 AM EST [facility] BUN, Plasma 16 8 - 23 mg/dL 06/04/2025 5:26 AM EST [facility] Creatinine, Plasma 0.48(L) 0.60 - 1.10 mg/dL 06/04/2025 5:26 AM EST [facility] BUN/Creatinine Ratio 33 06/04/2025 5:26 AM EST [facility] Sodium, Plasma 137 136 - 145 mmol/L 06/04/2025 5:26 AM EST [facility] Potassium, Plasma 4.4 3.6 - 4.9 mmol/L 06/04/2025 5:26 AM EST [facility] Chloride, Plasma 103 97 - 107 mmol/L 06/04/2025 5:26 AM EST [facility] CO2, Plasma 24 22 - 29 mmol/L 06/04/2025 5:26 AM EST [facility] Anion Gap 10 6 - 16 mmol/L 06/04/2025 5:26 AM EST [facility] Total Calcium, Plasma 8.4(L) 8.9 - 10.2 mg/dL 06/04/2025 5:26 AM EST [facility] Total Protein 7.2 6.3 - 7.9 g/dL 06/04/2025 5:26 AM EST [facility] Albumin, Plasma 2.4(L) 3.5 - 5.2 g/dL 06/04/2025 5:26 AM EST [facility] AST, Plasma 24 10 - 35 U/L 06/04/2025 5:26 AM EST [facility] ALT, Plasma 21 10 - 35 U/L 06/04/2025 5:26 AM EST [facility] Alkaline Phosphatase, Plasma 104 46 - 142 U/L 06/04/2025 5:26 AM EST [facility] Total Bilirubin, Plasma 0.2 0.2 - 1.1 mg/dL 06/04/2025 5:26 AM EST [facility] eGFRcr 101.4 mL/min/1.7 3m*2 06/04/2025 5:26 AM EST [facility] Comment:Reported eGFRcr in m L/min/1.73m2 is based the CKD-EPI 2020 equation that does not use a race coefficient. Blood Venous blood specimen / Unknown Venipuncture / Unknown 06/04/2025 4:31 AM EST 06/04/2025 4:57 AM EST us Nory Burt MD LAB BLOOD ORDERABLES Final Resu lt [facility] [address] [place] [address] * XR Chest 1 View (06/04/2025 4:09 AM EST) Only the most recent of19 resultswithin the time period is included. Anatomical Region Laterality Modality Chest Digital Radiogra [...] MD on 06/04/2025 4:14 AM us Nory Burt MD IMG XR PROCEDURES Final Result * EKG now - STAT (adult) (06/04/2025 3:30 AM EST) Only the most recent of6 resultswithin the time period is included. EKG DIAGNOSIS CLASS Abnormal MUSE ECG Ventricular Rate 101 BPM MUSE ECG Atrial Rate 101 BPM MUSE ECG TN Interval 154 ms MUSE ECG QRSD Interval 72 ms MUSE ECG QT Interval 346 ms MUSE ECG QTC Interval 448 ms MUSE ECG P Quinter 76 degrees MUSE ECG R Quinter 6 degrees MUSE ECG T Wave Quinter 55 degrees MUSE ECG Diagnosis Sinus tachycardia with premature atrial complexes MUSE ECG Diagnosis Low voltage QRS MUSE ECG Diagnosis Cannot rule out Anterior infarct , age undetermined MUSE ECG Diagnosis Abnormal ECG MUSE ECG Diagnosis MUSE ECG Diagnosis Confirmed by Masood Land ([id number]) on 06/04/2025 8:59:21 AM MUSE ECG 06/04/2025 3:30 AM EST 06/04/2025 8:59 AM EST Nory Burt MD ECG ORDERABLES Final Result MUSE ECG * (ABNORMAL) POCT glucose meter (06/02/2025 11:32 AM EST) Only the most recent of115 resultswithin the time period is included. POCT Glucose 157(H) 74 - 99 mg/dL 06/02/2025 11:34 AM EST [facility] Comment:Accuracy of [...] for testing. Comment 06/02/2025 11:34 AM EST [facility] Pension Agent ID Kirstin Rivera 06/02/2025 11:34 AM EST [facility] Device ID [id number] 06/02/2025 11:34 AM EST [facility] Specimen Type POC Capillary 06/02/2025 11:34 AM EST [facility] Blood Capillary blood specimen / Unknown 06/02/2025 11:32 AM EST 06/02/2025 11:34 AM EST us Lokesh Anderson MD LAB POINT OF CARE TE ST DOCKED DEVICE UNSOLICITED RESULTS Final Result [facility] [address] [place] [id number] * (ABNORMAL) CBC W/O Differential (06/02/2025 3:29 AM EST) Only the most recent of36 resultswithin the time period is included. WBC Count 8.73 3.70 - 10.30 10*3/uL LAB HEMATOLOGY METHOD 06/02/2025 3:52 AM EST [facility] RBC Count 3.17(L) 3.90 - 5.20 10*6/uL LAB HEMATOLOGY METHOD 06/02/2025 3:52 AM EST [facility] HGB 9.3(L) 11.2 - 15.7 g/dL LAB HEMATOLOGY METHOD 06/02/2025 3:52 AM EST [facility] HCT 28.8(L) 34.0 - 45.0 % LAB HEMATOLOGY METHOD 06/02/2025 3:52 AM EST [facility] Platelet Count 576(H) 155 - 369 10*3/uL LAB HEMATOLOGY METHOD 06/02/2025 3:52 AM EST [facility] MCV 91 79 - 98 fL LAB HEMATOLOGY METHOD 06/02/2025 3:52 AM EST [facility] MCH 29.3 26.0 - 32.0 pg LAB HEMATOLOGY METHOD 06/02/2025 3:52 AM EST [facility] MCHC 32.3 30.7 - 35.5 g/dL LAB HEMATOLOGY METHOD 06/02/2025 3:52 AM EST [facility] RDW 16.6(H) 11.5 - 14.5 % LAB HEMATOLOGY METHOD 06/02/2025 3:52 AM EST [facility] MPV 9.1 8.8 - 12.5 fL LAB HEMATOLOGY METHOD 06/02/2025 3:52 AM EST [facility] nRBC 0.0 <=0.0 per 100 WBCs LAB HEMATOLOGY METHOD 06/02/2025 3:52 AM EST [facility] Blood Venous blood specimen / Unknown Venipuncture / Unknown 06/02/2025 3:29 AM EST 06/02/2025 3:37 AM EST us Lokesh Anderson MD LAB BLOOD ORDERABLES Final Resul t Performing Organization Address [facility] [place] [address] * Triglycerides (05/30/2025 3:47 AM EST) Only the most recent of3 resultswithin the time period is included. Triglycerides, Plasma 92 <150 mg/dL 05/30/2025 10:30 AM EST [facility] Comment: Triglyceride Reference Range (age >17 years): Desirable: <150 mg/dL Borderline high: 150 to 199 mg/dL High: 200 to 499 mg/dL Very high: >499 mg/dL Increased risk of pancreatitis: >1000 mg/dL Fasting greater than or equal to 12 hours? Unknown 05/30/2025 10:30 AM EST [facility] Blood Venous blood specimen / Unknown Venipuncture / Unknown 05/30/2025 3:47 AM EST 05/30/2025 4:04 AM EST us Lokesh Anderson MD LAB BLOOD ORDERABLES Final Resul t Performing Organization Address [facility] [place] [address] * Amylase, Pleural Fluid (05/27/2025 6:34 PM EST) Amylase, Pleural Fluid 19 U/L 05/27/2025 10:51 PM EST [facility] Pleural Fluid Pleural fluid specimen / Unknown Non-blood Collection / Unknown 05/27/2025 6:34 PM EST 05/27/2025 7:00 PM EST Narrative [facility] - 05/27/2025 10:51 PM EST Reference Values: No established reference interval. Interpret with caution. This test was developed and its performance characteristics determined by [facility]. The [place] Food and Drug [...] upper reference limit for serum and a lygpb-po-stisy amylase ratio greater than one. Note: Interpretive [...] FLUIDS AND STOOLS O RDERABLES Final Result [facility] [address] [place] [address] * Lipase, body fluid (05/27/2025 6:34 PM EST) Only the most recent of2 resultswithin the time period is included. Lipase, Fluid Result 14 U/L 05/30/2025 1:23 PM EST [facility] Lipase Fluid Type Pleural fluid 05/30/2025 1:23 PM EST [facility] ([facility]) Pleural Fluid Non-blood Collection / Unknown 05/27/2025 6:34 PM EST 05/27/2025 7:00 PM EST Narrative [facility] - 05/30/2025 1:23 PM EST Pleural INTERPRETIVE INFORMATION: Lipase, Fluid For information on body fluid reference ranges and/or interpretive guidance visit [email or web address] This test was developed and its performance characteristics determined by [facility]. It has not been cleared or approved by the [place] Food and Drug Administration. This test was performed in a CLIA certified laboratory and is intended for clinical purposes. Performed By: [facility] [address] [place] [id number] [employer] Manager: Margarito Barlow MD, PhD CLIA Number: [id number] Dylon Griggs MD LAB REF LAB BLOOD AND FLUID ORD Final Result [facility] [address] [place] [address] * Body Fluid Culture and Gram Stain (05/27/2025 6:34 PM EST) Only the most recent of3 resultswithin the time period is included. Culture No growth at day 4 2024 7:01 AM EST [facility] Gram Stain Result Rare Polymorphonuclear leukocytes 05/31/2025 7:01 AM EST [facility] Gram Stain Result No organisms seen 05/31/2025 7:01 AM EST [facility] Body Fluid Specimen from pleura obtained by thoracentesis / Unknown Non-blood Collection / Unknown 05/27/2025 6:34 PM EST 05/27/2025 7:38 PM EST Lokesh Anderson MD LAB MICROBIOLOGY - GENERAL ORDER FARSHAD Final Result Performing Organization Address City/[facility] Co de Phone Number [facility] [address] [place] [address] * Anaerobic Culture (05/27/2025 6:34 PM EST) Culture No growth at day 4 06/03/2025 2:28 PM EST [facility] Body Fluid Specimen from pleura obtained by thoracentesis / Unknown Non-blood Collection / Unknown 05/27/2025 6:34 PM EST 05/27/2025 7:38 PM EST Lokesh Anderson MD LAB MICROBIOLOGY - GENERAL ORDER FARSHAD Final Result [facility] [address] [place] [address] * Transfuse RBC (05/27/2025 5:38 PM EST) Gabriel Duran MOLD MACHINE OPERATOR BLOOD TRANSFUSION ORDERAB LES Edited Result - Final * Prepare Leukocyte Reduced RBC: 2 Units (05/27/2025 4:23 PM EST) Product Code [id number] [facility] BLOO D BANK Dispense Status Transfused BLOOD BANK Blood Expiration Date BLOOD BANK Unit Number [id number] CH B LOOD BANK Product Blood Type 5100 CH BLOOD BANK Blood Type O+ CH BLOOD BANK Crossmatch Compatible CH BLOOD BANK Product Code [id number] CH BLOO D BANK Dispense Status Released BLOOD BANK Blood Expiration Date CH BLOOD BANK Unit Number [id number] CH B LOOD BANK Product Blood Type 5100 CH BLOOD BANK Blood Type O+ CH BLOOD BANK Crossmatch Compatible CH BLOOD BANK Other us Gabriel Duran CRNA BLOOD BANK PRODUCT ORDERA BLES Final Result Performing Organization Address City/State/[facility] Co de Phone Number BLOOD BANK [address] [place] [address], * [place] AN ELECTIVE ENDOTRACHEAL AIRWAY, PB ANESTHESIA PLACEHOLDER (05/27/2025 3:41 PM EST) Narrative Gabriel Duran CRNA - 05/27/2025 3:41 PM EST Gabriel Duran CRNA 05/27/2025 4:06 PM Airway Date/Time: 05/27/2025 3:41 PM Reason: elective Airway not difficult General Information and Staff Patient location during procedure: OR MOLD MACHINE OPERATOR: Gabriel Duran CRNA Performed: MOLD MACHINE OPERATOR Patient Condition Indications for airway [...] Mccullough MD ANESTHESIA ORDERABLES Final R esult * Type and Screen (05/27/2025 11:33 AM EST) Only the most recent of2 resultswithin the time period is included. ABO/Rh O Positive 05/27/2025 12:07 PM EST [facility] BLOOD BANK Antibody Screen Negative 05/27/2025 12:07 PM EST BLOOD BANK Specimen Expiration 05/30/2025 23:59 05/27/2025 12:07 PM EST BLOOD [facility]ANK Blood Venous blood specimen / Unknown Venipuncture / Unknown 05/27/2025 11:33 AM EST 05/27/2025 12:07 PM EST Vanessa COOPER LAB BLOOD BANK TEST ORDERABLES F inal Result BLOOD BANK [address] [place] [address], * [place] TUBE THORACOSTOMY INCLUDES WATER SEAL, HC TUBE [...] treatment, delayed treatment, alternative treatment and observation [place] protocol: Procedure explained and questions answered to [...] with difficulty Comments: Awaiting post placement CXR Lokesh Anderson MD IN CLINIC/BEDSIDE ORDERABLES Fin al Result * Amylase, Drain Fluid (05/25/2025 12:37 PM EST) Only the most recent of3 resultswithin the time period is included. Amylase, Drain Fluid 18 U/L 05/25/2025 1:27 PM EST [facility] Fluid Drainage fluid specimen / Unknown 05/25/2025 12:37 PM EST 05/25/2025 12:59 PM EST Narrative [facility] - 05/25/2025 1:27 PM EST Reference Values: No established reference interval. Interpret with caution. This test was developed and its performance characteristics determined by [facility]. The U.S. Food and Drug [...] FLUIDS AND STOOLS ORDER FARSHAD Final Result [facility] [address] [place] [address] * CT Chest w IV Contrast (05/22/2025 [...] Poncho Velez MD on 05/22/2025 2:54 PM Lokesh Anderson MD IMG CT PROCEDURES Final Result * CT Guided Chest Tube Left (05/21/2025 11:55 AM EST) Anatomical Region Laterality Modality Chest Left Computed Tomogra phy Impressions 05/21/2025 6:[address]-guided left-sided 10 Georgian chest tube placement. PLAN: -Chest tube maintenance [...] image guided left-sided chest tube placement. TECHNIQUE: Surveillance Specialist: Malou Verma M.D. Secondary Pension Agent: Sadi Yousif MSIV Supervising Attending: Nasima Sequeira M.D. Nurse: [...] image guided left-sided chest tube placement. TECHNIQUE: Surveillance Specialist: Malou Verma M.D. Secondary Pension Agent: Sadi DIALLO Supervising Attending: Nasima Sequeira [...] COMPLICATION: No. IMPRESSION: Successful CT-guided left-sided 10 Georgian chest tube placement. PLAN: -Chest tube maintenance [...] MD IMG CT PROCEDURES Final Result * PICC DOUBLE LUMEN (SMARTFORM LINK) (05/20/2025 9:05 AM EST) Only the most recent of2 resultswithin the time period is included. Narrative Beth Camacho RN - 05/20/2025 9:05 AM EST Beth Camacho RN 05/20/2025 9:50 AM Insert PICC line Date/Time: 05/20/2025 9:05 AM Performed by: Beth Camcaho RN Authorized by: Lokesh Anderson MD [place] Protocol: Verbal consent obtained?: Yes Written consent [...] in right arm again Catheter Lot #: [id number] Catheter homemaking rehabilitation consultant: Bard Catheter placed: Double lumen Catheter size: 4 Fr Catheter trimmed length: 38 Catheter threaded length: 36 Vein placed in: SVC Catheter cm indwellin Catheter cm outside: 2 Placement confirmed by: Shernathalia 3CG technology Pre-procedure: Landmarks identified Ultrasound guidance: [...] PACS Limb precaution armband to right arm us Lokesh Anderson MD IV THERAPY ORDERABLES Final Resu lt * Troponin T, High Sensitivity, 2 Hour, Plasma (05/19/2025 10:59 AM EST) Only the most recent of2 resultswithin the time period is included. Troponin T, High Sensitivity, 2 Hour 9 <14 ng/L 05/19/2025 11:37 AM EST [facility] Blood Venous blood specimen / Unknown Venipuncture / Unknown 05/19/2025 10:59 AM EST 05/19/2025 11:09 AM EST us Conrado Pakr APRN LAB BLOOD ORDERABLES Final Re sult [facility] [address] [place] [address] * Troponin T, High Sensitivity, 0 Hour Plasma, Reflex to 2 Hour (05/19/2025 8:12 AM EST) Only the most recent of2 resultswithin the time period is included. Troponin T, High Sensitivity, 0 Hour 7 <14 ng/L 05/19/2025 8:50 AM EST [facility] Blood Venous blood specimen / Unknown Venipuncture / Unknown 05/19/2025 8:12 AM EST 05/19/2025 8:19 AM EST us Conrado Luis Marioen YOBANI LAB BLOOD ORDERABLES Final Re sult Performing Organization Address City/[facility]/ZIP Co de Phone Number [facility] [address] [place] [address] * (ABNORMAL) Prealbumin (05/16/2025 12:20 AM EST) Only the most recent of3 resultswithin the time period is included. Prealbumin, Plasma 3.3(L) 20.0 - 41.0 mg/dL 05/16/2025 5:39 PM EST [facility] Blood Venous blood specimen / Unknown Venipuncture / Unknown 05/16/2025 12:20 AM EST 05/16/2025 12:30 AM EST us Lokesh Anderson MD LAB BLOOD ORDERABLES Final Resul t Performing Organization Address [facility] Co de Phone Number [facility] [address] [place] [address] * CT Guided Drain Placement Peritoneal or [...] pancreatectomy bed presents for drain placement. TECHNIQUE: Surveillance Specialist: Gael Alatorre MD Secondary Pension Agent: None Rad Dose: 1006 mGy-cm DLP [...] the pancreatectomy bed presents fordrain placement. TECHNIQUE: Surveillance Specialist: Gael Alatorre MD Secondary Pension Agent: Ari Rad Dose: 1006 mGy-cm DLP Medications: IV conscious sedation with continuous physiologic monitoringprovided by a qualified healthcare professional using Versed 2 mg IV andFentanyl 50 mcg IV. 1% Lidocaine SQ. Antibiotics: No additional Duration of Conscious Sedation: Time out: 1631 close out: 1657 Procedure: After discussion of risks and benefits, [...] MD on 05/18/2025 10:37 AM Jelena Lou LOG SNAKER, DNP IMG CT PROCEDURES Final Result * Urinalysis Microscopic Examination (05/14/2025 7:38 AM EST) Only the most recent of2 resultswithin the time period is included. Urine Urine specimen obtained by clean catch procedure / Unknown Non-blood Collection / Unknown 05/14/2025 7:38 AM EST 05/14/2025 7:43 AM EST Sarah Fregoso MD LAB URINE ORDERABLES Final Resul t [facility] [address] [place] [address] * (ABNORMAL) Urinalysis with reflex microscopic (Culture NOT Included) (05/14/2025 7:38 AM EST) Only the most recent of2 resultswithin the time period is included. Color, Urine Dark Yellow LAB URINALYSIS - AUTOMATED METHOD 05/14/2025 8:04 AM EST [facility] Clarity, Urine Clear LAB URINALYSIS - AUTOMATED METHOD 05/14/2025 8:04 AM EST [facility] Spec [place], Urine >1.030(H) 1.005 - 1.030 LAB URINALYSIS - AUTOMATED METHOD 05/14/2025 8:04 AM EST [facility] pH, Urine 6.0 5.0 - 8.0 LAB URINALYSIS - AUTOMATED METHOD 05/14/2025 8:04 AM [facility] Protein, Urine 100(A) Negative mg/dL LAB URINALYSIS - AUTOMATED METHOD 05/14/2025 8:04 AM [facility] Glucose, Urine Negative Negative mg/dL LAB URINALYSIS - AUTOMATED METHOD 05/14/2025 8:04 AM [facility] Ketones, Urine Negative Negative mg/dL LAB URINALYSIS - AUTOMATED METHOD 05/14/2025 8:04 AM [facility] Blood, Urine Moderate(A) Negative LAB URINALYSIS - AUTOMATED METHOD 05/14/2025 8:04 AM [facility] Bilirubin, Urine Negative Negative LAB URINALYSIS - AUTOMATED METHOD 05/14/2025 8:04 AM [facility] Urobilinogen, Urine 1.0 0.2 to 1.0 mg/dL LAB URINALYSIS - AUTOMATED METHOD 05/14/2025 8:04 AM [facility] Leukocytes, Urine Trace(A) Negative LAB URINALYSIS - AUTOMATED METHOD 05/14/2025 8:04 AM [facility] Nitrite, Urine Negative Negative LAB URINALYSIS - AUTOMATED METHOD 05/14/2025 8:04 AM [facility] RBC, Urine 4 - 10(A) 0 to 3 /HPF LAB URINALYSIS - AUTOMATED METHOD 05/14/2025 8:04 AM [facility] Comment:This result was prev iously suppressed from the chart. WBC, Urine 0 - 5 0 to 5 /HPF LAB URINALYSIS - AUTOMATED METHOD 05/14/2025 8:04 AM [facility] Comment:This result was prev iously suppressed from the chart. Squamous Epithelial Cells 6 - 10(A) 0 to 5 /HPF LAB URINALYSIS - AUTOMATED METHOD 05/14/2025 8:04 AM [facility] Comment:This result was prev iously suppressed from the chart. Hyaline Casts 0 - 2 0 to 5 /LPF LAB URINALYSIS - AUTOMATED METHOD 05/14/2025 8:04 AM [facility] Comment:This result was prev iously suppressed from the chart. Bacteria, Urine Negative Negative LAB URINALYSIS - AUTOMATED METHOD 05/14/2025 8:04 AM EST [facility] Comment:This result was prev iously suppressed from the chart. Urine Urine specimen obtained by clean catch procedure / Unknown Non-blood Collection / Unknown 05/14/2025 7:38 AM EST 05/14/2025 7:43 AM EST us Sarah Fregoso MD LAB URINE ORDERABLES Final Resul t Performing Organization Address [facility] de Phone Number [facility] [address] [place] [address] * Blood Culture (Aerobic/Anaerobet Set) (05/14/2025 2:32 AM EST) Only the most recent of2 resultswithin the time period is included. Culture No growth at day 5 05/19/2025 5:51 AM EST [facility] Blood Structure of right wrist region / Unknown Venipuncture / Unknown 05/14/2025 2:32 AM EST 05/14/2025 5:43 AM EST Narrative [facility] - 05/19/2025 5:51 AM EST Low blood volume submitted, results may be compromised us Sarah Fregoso MD LAB MICROBIOLOGY - GENERAL ORDER FARSHAD Final Result Performing Organization Address [facility] Number [facility] [address] [place] [address] * ED HIV 1/2 Antibody/Antigen Screen w/Reflex to HIV 1/2 Differentiation (05/13/2025 6:44 PM EST) HIV 1 & 2 Antibody/Antigen Screen Non Reactive Non Reactive 05/13/2025 8:03 PM EST [facility] Comment:Screening for HIV 1 & 2 antibodies, and P24 antigen is NONREACTIVE. No confirmatory testing is required. Blood Venous blood specimen / Unknown Venipuncture / Unknown 05/13/2025 6:44 PM EST 05/13/2025 7:22 PM EST us Jemal Hargrove MD LAB BLOOD ORDERABLES Final Resul t Performing Organization Address [facility]/State/ZIP Co de Phone Number [facility] [address] [place] [address] * Hepatitis C Antibody - ED (05/13/2025 6:44 PM EST) Hepatitis C Antibody Negative Negative 05/13/2025 9:33 PM EST [facility] Blood Venous blood specimen / Unknown Venipuncture / Unknown 05/13/2025 6:44 PM EST 05/13/2025 7:21 PM EST us Jemal Hargrove MD LAB BLOOD ORDERABLES Final Resul t [facility] [address] [place] [address] * XR Abdomen 1 View (03/31/2025 8:48 AM EDT) Only the most recent of4 resultswithin the time period is included. Anatomical Region Laterality Modality Body Digital Radiogra phy Impressions 03/31/2025 9:44 AM EDT Partial annular pancreas. Focal dilation of the distal stomach, similar to recent CT could represent partial obstruction and/or atypical ileus given adjacent surgery. No diffuse dilatation of the upstream stomach. CRITICAL RESULT: No. COMMUNICATION: Per this written report. Drafted by Sonya Moran MD on 03/31/2025 9:35 AM Final report signed by Sonya Moran MD on 03/31/2025 9:44 AM Narrative 03/31/2025 9:44 AM EDT CLINICAL INDICATION: Distention TECHNIQUE: Supine radiograph of [...] annular pancreas. Given the configuration on CT this raises the possibility for partial gastric outlet obstruction secondary to the annular pancreas. No dilated loops of small and large bowel. Midline cutaneous justyn and surgical drain in the upper abdomen. No large volume pneumoperitoneum. No pneumatosis. Procedure Note Sonya Moran MD - 03/31/2025 CLINICAL INDICATION: Distention TECHNIQUE: Supine radiograph of the abdomen. COMPARISON: Abdominal x-ray one day ago 03/29/2025, 02/14/2025 CT abdomen and pelvis and 09/16/2024 MRI abdomen FINDINGS: Focal dilation of duodenal bulb/distal stomach measuring up to 4.3 cm inthe right upper quadrant. When correlated with the recent CT examinationthis likely represents the dilated distal stomach. The prior CT and MRalso demonstrated presence of annular pancreas. Given the configuration onCT this raises the possibility for partial gastric outlet obstructionsecondary to the annular pancreas. No dilated loops of small and largebowel. Midline cutaneous justyn and surgical drain in the upper abdomen. Nolarge volume pneumoperitoneum. No pneumatosis. IMPRESSION: Partial annular pancreas. Focal dilation of the distal stomach, similar torecent CT could represent partial obstruction and/or atypical ileus givenadjacent surgery. No diffuse dilatation of the upstream stomach. CRITICAL RESULT: No. COMMUNICATION: Per this written report. Drafted by Sonya Moran MD on 03/31/2025 9:35 AM Final report signed by Sonya Moran MD on 03/31/2025 9:44 AM Lokesh Anderson MD IMG XR PROCEDURES Final Result * Comprehensive GI Panel by PCR (03/30/2025 12:59 AM EDT) Campylobacter PCR Result Not Detected Not Detected 03/30/2025 6:40 AM EDT [facility] Plesiomonas shigelloides PCR Result Not Detected Not Detected 03/30/2025 6:40 AM EDT [facility] Salmonella PCR Result Not Detected Not Detected 03/30/2025 6:40 AM EDT [facility] Vibrio species PCR Result Not Detected Not Detected 03/30/2025 6:40 AM EDT [facility] Vibrio cholerae PCR Result Not Detected Not Detected 03/30/2025 6:40 AM EDT [facility] Yersinia enterocolitica PCR Result Not Detected Not Detected 03/30/2025 6:40 AM EDT [facility] Enteroaggregative E. coli (EAEC) PCR Result Not Detected Not Detected 03/30/2025 6:40 AM EDT [facility] Enteropathogenic E. coli (EPEC) PCR Result Not Detected Not Detected 03/30/2025 6:40 AM EDT [facility] Enterotoxigenic E. coli (ETEC) lt/st PCR Result Not Detected Not Detected 03/30/2025 6:40 AM EDT [facility] Shiga-like Toxin-Producing E.coli (STEC) stx1/stx2 PCR Resu Not Detected Not Detected 03/30/2025 6:40 AM EDT [facility] E coli 0157 PCR Result Not Detected Not Detected 03/30/2025 6:40 AM EDT [facility] Shigella/Enteroinvas aj E. coli (EIEC) PCR Result Not Detected Not Detected 03/30/2025 6:40 AM EDT [facility] Cryptosporidium PCR Result Not Detected Not Detected 03/30/2025 6:40 AM EDT [facility] Cyclospora cayetanensis PCR Result Not Detected Not Detected 03/30/2025 6:40 AM EDT [facility] Entamoeba histolytica PCR Result Not Detected Not Detected 03/30/2025 6:40 AM EDT [facility] Giardia duodenalis (aka Giardia lamblia) PCR Result Not Detected Not Detected 03/30/2025 6:40 AM EDT [facility] Adenovirus F 40/41 PCR Result Not Detected Not Detected 03/30/2025 6:40 AM EDT [facility] Astrovirus PCR Result Not Detected Not Detected 03/30/2025 6:40 AM EDT [facility] Norovirus GI/GII PCR Result Not Detected Not Detected 03/30/2025 6:40 AM EDT [facility] Rotavirus A PCR Result Not Detected Not Detected 03/30/2025 6:40 AM EDT [facility] Sapovirus PCR Result Not Detected Not Detected 03/30/2025 6:40 AM EDT [facility] Stool Rectum structure / Unknown Non-blood Collection / Unknown 03/30/2025 12:59 AM EDT 03/30/2025 1:27 AM EDT [facility] - 03/30/2025 6:40 AM EDT This specimen was tested for the following analytes: Campylobacter species, Plesiomonas shigelloides, Salmonella species, Vibrio species, Vibrio cholerae, Yersinia enterolitica, Enteroaggregative E. coli (EAEC), Enteropathogenic E. Coli (EPEC), Enterotoxigenic E. coli (ETEC), Shiga-like toxin-producing E. coli (STEC), Shigella/Enteroinvasive E. coli (EIEC), Cryptosporidium, Cyclospora cayetanensis, Entamoeba histolytica, Giardia lamblia, Adenovirus f40/41, Astrovirus, Norovirus GI/GII, Rotavirus A, and Sapovirus. Note: Clostridium difficile toxin a/b will no longer be resulted using this platform. Please order the Clostridium difficile by PCR assay if clinically indicated. This specimen was tested for the following analytes: Campylobacter species, Plesiomonas shigelloides, Salmonella species, Vibrio species, Vibrio cholerae, Yersinia enterolitica, Enteroaggregative E. coli (EAEC), Enteropathogenic E. Coli (EPEC), Enterotoxigenic E. coli (ETEC), Shiga-like toxin-producing E. coli (STEC), Shigella/Enteroinvasive E. coli (EIEC), Cryptosporidium, Cyclospora cayetanensis, Entamoeba histolytica, Giardia lamblia, Adenovirus f40/41, Astrovirus, Norovirus GI/GII, Rotavirus A, and Sapovirus. Note: Clostridium difficile toxin a/b will no longer be resulted using this platform. Please order the Clostridium difficile by PCR assay if clinically indicated. Lokesh Anderson MD LAB MICROBIOLOGY - GENERAL ORDER FARSHAD Final Result [facility] [address] [place] [address] * (ABNORMAL) Clostridiodes (Clostridium) difficile PCR (03/30/2025 12:59 AM EDT) C difficile PCR toxin B gene DNA Result Detected, Reflex GDH/Toxin antigen test pending, see CDEIA for final result.(A) Not Detected 03/30/2025 2:23 AM EDT [facility] Comment:Reflex GDH/Toxin ant igen test pending, see CDEIA for final result. Stool Rectum structure / Unknown Non-blood Collection / Unknown 03/30/2025 12:59 AM EDT 03/30/2025 1:27 AM EDT Narrative [facility] - 03/30/2025 2:23 AM EDT This test is FDA approved for use with liquid stool specimens. This test is used for clinical purposes. It should not be regarded as investigational or for research. This laboratory is certified under the Clinical Laboratory Improvement Amendments of 1988 (CLIA-88) as qualified to perform high complexity clinical laboratory testing. Lokesh Anderson MD LAB MICROBIOLOGY - GENERAL ORDER FARSHAD Final Result Performing Organization Address [facility] Co de Phone Number [address] [address] * Clostridium difficile EIA (03/30/2025 12:59 AM EDT) C difficile EIA Interpretation C. difficile infection not likely. May represent colonization . Negative 03/31/2025 10:42 AM EDT [facility] Toxin Result Negative Negative 03/31/2025 10:42 AM EDT [facility] GDH Result Positive Negative 03/31/2025 10:42 AM EDT [facility] Stool Rectum structure / Unknown Non-blood Collection / Unknown 03/30/2025 12:59 AM EDT 03/30/2025 1:27 AM EDT Narrative [facility] - 03/31/2025 10:42 AM EDT This toxin/GDH assay was reflexed from a positive C. difficile PCR result. This toxin/GDH assay was reflexed from a positive C. difficile PCR result. Lokesh Anderson MD LAB MICROBIOLOGY - GENERAL ORDER FARSHAD Final Result Performing Organization Address [facility] Co de Phone Number [facility] [address] [place] [phone] * (ABNORMAL) Blood gas panel, arterial (03/20/2025 12:10 PM EDT) pH, Arterial 7.33 7.31 - 7.42 LAB HEMATOLOGY METHOD 03/20/2025 12:19 PM EDT [facility] pCO2, Arterial 49(H) 35 - 48 mmHg LAB HEMATOLOGY METHOD 03/20/2025 12:19 PM EDT [facility] pO2, Arterial 149 >70 mmHg LAB HEMATOLOGY METHOD 03/20/2025 12:19 PM EDT [facility] SO2, Measured, Arterial 100(H) 94 - 98 % LAB HEMATOLOGY METHOD 03/20/2025 12:19 PM EDT [facility] Base Excess, Arterial -0.7 -2.0 - 3.0 mmol/L LAB HEMATOLOGY METHOD 03/20/2025 12:19 PM EDT [facility] Bicarbonate, Calculated, Arterial 26 22 - 26 mmol/L LAB HEMATOLOGY METHOD 03/20/2025 12:19 PM EDT [facility] Hematocrit, Whole Blood 41.3 34.0 - 45.0 % LAB HEMATOLOGY METHOD 03/20/2025 12:19 PM EDT [facility] Sodium, Whole Blood 142 136 - 145 mmol/L LAB HEMATOLOGY METHOD 03/20/2025 12:19 PM EDT [facility] Potassium, Whole Blood 3.5(L) 3.6 - 4.9 mmol/L LAB HEMATOLOGY METHOD 03/20/2025 12:19 PM EDT [facility] Chloride, Whole Blood 106 97 - 107 mmol/L LAB HEMATOLOGY METHOD 03/20/2025 12:19 PM EDT [facility] Glucose, Whole Blood 161(H) 74 - 99 mg/dL LAB HEMATOLOGY METHOD 03/20/2025 12:19 PM EDT [facility] Ionized Calcium, Whole Blood 4.4(L) 4.6 - 5.1 mg/dL LAB HEMATOLOGY METHOD 03/20/2025 12:19 PM EDT [facility] Lactate, Arterial, Whole Blood 1.9(H) 0.5 - 1.6 mmol/L LAB HEMATOLOGY METHOD 03/20/2025 12:19 PM EDT [facility] Blood Arterial blood specimen / Unknown Arterial Line / Unknown 03/20/2025 12:10 PM EDT 03/20/2025 12:17 PM EDT us Lokesh Anderson MD LAB BLOOD ORDERABLES Final Resul t [facility] [address] [place] [address] * (ABNORMAL) POCT arterial blood gas gem (03/20/2025 10:37 AM EDT) Only the most recent of2 resultswithin the time period is included. pH, Arterial 7.43(H) 7.31 - 7.42 03/20/2025 10:39 AM EDT [facility] pCO2, Arterial 35 35 - 48 mm Hg 03/20/2025 10:39 AM EDT [facility] pO2, Arterial 184 >70 mm Hg 03/20/2025 10:39 AM EDT [facility] SO2, Arterial 100(H) 94 - 98 % 03/20/2025 10:39 AM EDT [facility] FIO2 31.0 % 03/20/2025 10:39 AM EDT [facility] Base Excess, Arterial -0.7 -2 - 3 mmol/L 03/20/2025 10:39 AM EDT [facility] HCO3, Arterial 23.2 22 - 26 mmol/L 03/20/2025 10:39 AM EDT [facility] Total Hemoglobin, Arterial, Whole Blood 12.0 11.2 - 15.7 g/dL 03/20/2025 10:39 AM EDT [facility] Hematocrit, Arterial 36.0 34.0 - 45.0 % 03/20/2025 10:39 AM EDT [facility] Sodium, Arterial 140 136 - 145 mmol/L 03/20/2025 10:39 AM EDT [facility] Potassium, Arterial 3.7 3.6 - 4.9 mmol/L 03/20/2025 10:39 AM EDT [facility] Chloride, Whole Blood 105 97 - 107 mmol/L 03/20/2025 10:39 AM EDT [facility] Glucose, Arterial 145(H) 74 - 99 mg/dL 03/20/2025 10:39 AM EDT [facility] Ionized Calcium, Arterial 4.0(L) 4.6 - 5.1 mg/dL 03/20/2025 10:39 AM EDT [facility] Lactate, Arterial 1.9(H) 0.5 - 1.6 mmol/L 03/20/2025 10:39 AM EDT [facility] Body Temperature 35.8 Celsius 03/20/2025 10:39 AM EDT [facility] pH, Temp Corrected, Arterial 7.45(H) 7.31 - 7.42 03/20/2025 10:39 AM EDT [facility] pCO2, Temp Corrected, Arterial 33(L) 35 - 48 mm Hg 03/20/2025 10:39 AM EDT [facility] pO2, Temp Corrected, Arterial 178 >70 mm Hg 03/20/2025 10:39 AM EDT [facility] Pension Agent ID Edwardo Krishna 03/20/2025 10:39 AM EDT [facility] Blood, Arterial Whole blood specimen / Unknown 03/20/2025 10:37 AM EDT 03/20/2025 10:39 AM EDT Lokesh Anderson MD LAB POINT OF CARE TE ST DOCKED DEVICE UNSOLICITED RESULTS Final Result Performing Organization Address City/State/[facility] de Phone Number [facility] [address] [place] [address] * Peripheral IV (03/20/2025 9:47 AM EDT) Narrative Jaya Krishna CRNA - 03/20/2025 9:47 AM EDT Jaya Krishna CRNA 03/20/2025 9:48 AM Peripheral IV Inserted by: Yasmine Escoto MD Placement Needle size: 16 G Location: wrist Local anesthetic: none Site prep: alcohol Technique: anatomical landmarks Attempts: 1 Jaya Krishna CRNA ANESTHESIA ORDERABLES Final Result * Surgical Pathology Exam (03/20/2025 8:41 AM EDT) Case Report Surgical Pathology Case: [id number] Authorizing Provider: Lokesh Anderson MD Collected: 03/20/2025 0841 Ordering Location: [facility]PER[facility] Received: 03/20/2025 1158 Pathologist: Conrado Chaves MD Specimens: A) - Other (specify site), falciform ligament B) - Other (specify site), celiac axis node dissection C) - Other (specify site), subtotal pancreatectomy and splenectomy, stitch wallace pancreatic transection margin 4:52 PM EDT [facility] Final Diagnosis A. FALCIFORM LIGAMENT, EXCISION: - FIBROADIPOSE TISSUE; NEGATIVE FOR MALIGNANCY B. LYMPH NODE, CELIAC AXIS, DISSECTION: - ONE LYMPH NODE NEGATIVE FOR MALIGNANCY (0/1) C. 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 All immunohistochemis try, in situ hybridization, and histochemical tests were developed by and are performed at the [facility], [address] [place] [address]. All tests reported here, except those addressing HER2 (breast) and PD-L1 expression as predictive markers, have not been cleared by or approved by the US Food and Drug Administration (FDA). The FDA has determined that such clearance or approval is not necessary. The laboratory is regulated under CLIA as qualified to perform high-complexity testing. The tests are used for clinical purposes. They should not be regarded as investigational or for research. This assay has not been validated on decalcified tissues. Results should be interpreted with caution given the likelihood of false negativity on decalcified specimens. 4:52 PM EDT [facility] Gross Description A. FALCIFORM LIGAMENT The specimen is received fresh and placed in formalin labeled f alciform ligament is a scanlon-yellow fibroadipose tissue measuring 7.6 x 5.2 x 1.4 cm. The ligament measures 2.4 cm in length and 0.5 cm in diameter. Rn Cardiac sectioned of specimen are submitted in cassette A1. Cold Time: 0 MARIO Mcelroy B. CELIAC AXIS NODE DISSECTION The specimen is received fresh and placed in formalin labeled c eliac axis node dissection is a scanlon-yellow soft tissue measuring 1.7 x 1.1 x 0.6 cm. The specimen is submitted entirely in cassette B1. Cold Time: 0 MARIO Mcelroy C. SUBTOTAL PANCREATECTOMY AND SPLENECTOMY, STITCH WALLACE PANCREATIC TRANSECTION MARGIN The specimen is received fresh and placed in formalin labeled s ubtotal pink ureterectomy and splenectomy, stitch wallace pancreatic transection margin is a subtotal pancreatectomy specimen containing distal pancreas (9.2 x 6.8 x 3.7 cm) and spleen (12.6 x 7.7 x 5.6 cm). The serosal surface of pancreas is scanlon-brown, smooth, and intact. There is an area of bulg measuring 3 x 3.4 cm on the anterior surface of pancreas 1.4 cm from the staple margin. The anterior surface is inked blue, posterior surface is inked green, and the transection margin is inked black. The specimen is serially sectioned to reveal a cyst measuring 3.5 x 3.4 x 3.1 cm. The cyst was filled with scanlon-yellow clear fluid. The normal pancreatic parenchyma is scanlon-yellow and lobulated. No additional masses identified. The spleen weighs 134.4 g and measures 12.6 x 7.7 x 5.6 cm. External surface of spleen is brown, smooth, with an intact capsule. The spleen is serially sectioned to reveal scanlon-red cut surface. The public health representative section of specimen are submitted as: C1-C2: Pancreatic transection margin (en face) C3: Vascular margin (en face) C4-C30: Pancreatic cyst, submitted entirely from transection margin to tip. C31: Rn Cardiac section of normal pancreas C32: 1 possible lymph node, bisected C33: 2 possible lymph nodes C34-C36: Peripancreatic fat with possible lymph nodes C37-C40: Rn Cardiac section of spleen Cold Time: 2h 03m MARIO Mcelroy 5 4:52 PM EDT [facility] Note: A resident was involved in the service. I attest I examined the relevant preparations for the specimens and confirmed the diagnosis or interpretation. 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 Procedure performed using ultrasound guidance in the OR for the following indication(s): continuous blood pressure monitoring. A 20 gauge (size), 1 and 3/4 inch (length), Arrow (type) catheter was placed into the Right radial artery and secured by tape. Seldinger technique used Events: patient tolerated procedure well with no complications. Staffing Performed: MOLD MACHINE OPERATOR MOLD MACHINE OPERATOR: Giovanni Crowe CRNA us Yasmine Escoto MD ANESTHESIA ORDERABLES Kan alex Result - Final * TN AN ELECTIVE ENDOTRACHEAL AIRWAY, PB ANESTHESIA PLACEHOLDER (03/20/2025 7:55 AM EDT) Narrative Jaya Krishna CRNA - 03/20/2025 7:55 AM EDT Jaya Krishna CRNA 03/20/2025 9:47 AM Airway Date/Time: 03/20/2025 7:55 AM Reason: elective Airway not difficult General Information and Staff Patient location during procedure: OR MOLD MACHINE OPERATOR: Jaya Krishna CRNA Performed: BOB Patient Condition Indications for airway management: anesthesia Patient position: sniffing Final Airway Details Final airway type: endotracheal airway Successful airway: ETT Cuffed: yes Successful intubation technique: direct laryngoscopy Adjuncts used in placement: intubating stylet and cricoid pressure Endotracheal tube insertion site: oral Blade: Nikos Blade size: #3 ETT size (mm): 7.5 Cormack-Lehane Classification: grade IIa - partial view of glottis Placement verified by: chest auscultation and capnometry Measured from: lips ETT to lips (cm): 22 Additional Comments Atraumatic. No change to dentition. Slightly anterior Jaya Krishna CRNA ANESTHESIA ORDERABLES Final Result * PB ANESTHESIA NON-TIMED PROCEDURE PLACEHOLDER (03/20/2025 7:02 AM EDT) Narrative Ronaldo Pearce MD - 03/20/2025 7:02 AM EDT Ronaldo Pearce MD 03/20/2025 2:56 PM Epidural Block Patient location during procedure: pre-op Start time: 03/20/2025 7:02 AM End time: 03/20/2025 7:15 AM Reason for block: post-op pain management Block is at surgeon's request Staffing Performed: Resident Anesthesiologist: Ronaldo Pearce MD Resident: Yo Maria MD Preanesthetic Checklist Completed: patient identified, IV checked, site marked, risks and benefits discussed, surgical consent, monitors and equipment checked, pre-op evaluation and timeout performed Block Placement Patient position: sitting Prep: ChloraPrep Patient monitoring: standard ASA Approach: midline Location: T9-T10 Needle Needle type: Tuohy Needle gauge: 17 G Needle length: 3.5 in Needle insertion depth (cm): 5 Catheter size: 20G. Catheter at skin depth (cm): 10 Test dose: lidocaine 1.5% with epinephrine 1:200,000 Medications Administered: fentaNYL (SUBLIMAZE) - Intravenous 100 mcg - 03/20/2025 7:02:00 AM Additional Notes After identification of superficial landmarks, the skin was prepped with ChloraPrep. Sterile drapes were placed. The skin was anesthetized with 1% lidocaine. The Tuohy needle was then inserted carefully and advanced slowly into the epidural space with loss of resistance at 5 cm. The catheter threaded without resistance and was left at 10 cm. The catheter was secured at the skin with a LockIt device, Steri strips, Tegaderm, and paper tape. Aspiration was negative for heme and CSF. A test dose of 2 mL 1.5% lidocaine with 1:200,000 epinephrine was negative. 100mcg fentanyl was provided for procedural sedation. The patient tolerated the procedure well and no immediate complications were noted. us Ronaldo Pearce MD ANESTHESIA ORDERABLES Final Resu lt * Hemoglobin A1c (12/05/2020 3:01 AM EDT) Hemoglobin A1c 5.4 <5.7 % 12/05/2020 5:39 AM EDT [facility] Blood Venous blood specimen / Unknown Venipuncture / Unknown 12/05/2020 3:01 AM EDT 12/05/2020 5:39 AM EDT Narrative [facility] - 12/05/2020 5:39 AM EDT HA1C Interpretive Data: Diagnosis of Diabetes: Diabetic > or = 6.5% Pre-diabetic 5.7 to 6.4% Non-diabetic < or = 5.6% Glycemic Targets for Type I and Type II Diabetics: Non- Adults <7.0% Adults <6.0% Children and Adolescents <7.5% Source: [place] [employer]. Standards of medical care in diabetes,2017. Diabetes Care.2017:40 (suppl 1):S1-S135. HbA1c assay performed by an ion-exchange chromatography method that is certified traceable to the DCCT. us Juana Patel DO LAB BLOOD ORDERABLES Final Res [facility] [address] [place] [id number] from Last 3 Months or Most Recently Relevant to Health Maintenance Additional Health Concerns Active Problems Noted Date Diagnosed Date Autogenerated Problem 12/19/2024 Autogenerated Problem 02/26/2025 Insurance [facility] MEDICARE Advance Directives * Full Code (Latest Code Status on File) Date Activated Date Inactivated Comments 05/14/2025 1:59 AM 06/02/2025 7:26 PM Question Answer Comments I have reviewed the capacity from the link above and, if needed, have updated to appropriate status: Yes * Full Code Date Activated Date Inactivated Comments 03/20/2025 12:04 PM 04/04/2025 7:25 PM Question Answer Comments I have reviewed the capacity from the link above and, if needed, have updated to appropriate status: Yes * Full Code Date Activated Date Inactivated Comments 12/05/2020 2:14 AM 12/08/2020 7:58 PM Question Answer Comments Patient has decision-making capacity? Yes Care Teams Bicycle Fitter Relationship Specialty Start Date End Date Golden Newell MD [address] [facility] [address] [place] [address] PCP - General 12/04/20
--- OUTSIDE RECORDS SUMMARY | 2025-06-06 22:18 | XMS_ITS | Encounter Summary ---
Author Organization [employer] ([place], [place], [place], [place], [place]) Address [address] [place] [address] Care Team Providers Care Product Inspection Coordinator Name Role Phone Jelena Arroyo Emilia Evans MD Primary Care Provider [phone] Encounter Details Date Type Department Care Team (Latest Contact Info) Description 06/05/2025 Lab Requisition [facility] [address] [place] [address] Lokesh Anderson MD [address] [place] [phone] Other specified hyperalimentation Social History Tobacco Use Types Packs/Day Years [...] Date Garett rded Speak language other than Nepali at home Not on file 07/07/2023 Want [...] Priority Date/Time Associated Diagnosis Comments TRIGLYCERIDES Routine 06/05/2025 2:00 AM EST Other specified hyperalimentation PHOSPHORUS Routine 06/05/2025 2:00 AM EST Other specified hyperalimentation MAGNESIUM Routine 06/05/2025 2:00 AM EST Other specified hyperalimentation HEPATIC FUNCTION PANEL Routine 06/05/2025 2:00 AM EST Other specified hyperalimentation BASIC METABOLIC PANEL Routine 06/05/2025 2:00 AM EST Other specified hyperalimentation documented in this encounter Results * (ABNORMAL) Hepatic function panel (06/05/2025 2:00 AM EST) Protein, Total 7.2 6.4 - 8.2 gm/dL 06/05/2025 4:32 PM [facility] Albumin 1.6(L) 3.4 - 5.0 g/dL 06/05/2025 4:32 PM [facility] Total Bilirubin 0.2 0.2 - 1.0 mg/dL 06/05/2025 4:32 PM [facility] Bilirubin, Direct 0.1 0.1 - 0.2 mg/dL 06/05/2025 4:32 PM [facility] Alkaline Phosphatase 110 46 - 116 U/L 06/05/2025 4:32 PM [facility] Globulin 5.6 g/dL 06/05/2025 4:32 PM [facility] A/G Ratio 0.3 06/05/2025 4:32 PM [facility] AST 28 15 - 37 U/L 06/05/2025 4:32 PM [facility] Comment:Chipolo iaYieldr has become aware of sulfasalazine and sulfapyridine drug interference in the assays ALT, AST, T4, CKMB, glucose, and ammonia. The probability of misinterpretation of results for the assays is remote and would be limited to scenarios where a patient has taken the drug and had a blood sample drawn before clearance of the drug to a level that does not interfere with laboratory testing. Venipuncture should occur prior to administration of the drug. ALT 21 12 - 78 U/L 06/05/2025 4:32 PM EST [facility] Comment:Lailaihui has become aware of sulfasalazine and sulfapyridine drug interference in the assays ALT, AST, T4, CKMB, glucose, and ammonia. The probability of misinterpretation of results for the assays is remote and would be limited to scenarios where a patient has taken the drug and had a blood sample drawn before clearance of the drug to a level that does not interfere with laboratory testing. Venipuncture should occur prior to administration of the drug. Blood 06/05/2025 2:00 AM EST 06/05/2025 4:15 PM EST us Lokesh Anderson MD LAB BLOOD ORDERABLES Final Resul t [facility] [address] [place] [address] * Triglycerides (06/05/2025 2:00 AM EST) Triglycerides 95 15 - 150 mg/dL 06/05/2025 4:32 PM EST [facility] Blood 06/05/2025 2:00 AM EST 06/05/2025 4:15 PM EST us Lokesh Anderson MD LAB BLOOD ORDERABLES Final Resul t [facility] [address] [place] [address] * Phosphorus (06/05/2025 2:00 AM EST) Phosphorus 4.1 2.6 - 4.9 mg/dL 06/05/2025 4:32 PM EST [facility] Blood 06/05/2025 2:00 AM EST 06/05/2025 4:15 PM EST us Lokesh Anderson MD LAB BLOOD ORDERABLES Final Resul t [facility] [address] [place] [address] * (ABNORMAL) Magnesium (06/05/2025 2:00 AM EST) Magnesium 1.7(L) 1.8 - 2.4 mg/dL 06/05/2025 4:32 PM EST [facility] Blood 06/05/2025 2:00 AM EST 06/05/2025 4:15 PM EST us Lokesh Anderson MD LAB BLOOD ORDERABLES Final Resul t [facility] [address] [place] [address] * (ABNORMAL) Basic Metabolic Panel (06/05/2025 2:00 AM EST) Sodium 136 136 - 145 meq/L 06/05/2025 4:32 PM EST [facility] Potassium 4.0 3.5 - 5.1 meq/L 06/05/2025 4:32 PM EST [facility] Chloride 100 98 - 107 meq/L 06/05/2025 4:32 PM EST [facility] CO2 30 21 - 32 meq/L 06/05/2025 4:32 PM EST [facility] Anion Gap 10(L) 11 - 22 06/05/2025 4:32 PM EST [facility] BUN 17 7 - 18 mg/dL 06/05/2025 4:32 PM [facility] Creatinine 0.59 0.55 - 1.10 mg/dL 06/05/2025 4:32 PM [facility] BUN/Creatinine 29 06/05/2025 4:32 PM EST [facility] Glucose 117(H) 74 - 100 mg/dL 06/05/2025 4:32 PM EST [facility] Calcium 8.6 8.5 - 10.1 mg/dL 06/05/2025 4:32 PM EST [facility] Osmolality Calc 274.5 mOsm/kg 4:32 PM EST [facility] eGFR (mL/min/1.73m2) >60 >=60 mL/min/1.7 3m2 06/05/2025 4:32 PM EST [facility] Comment:eGFR of <60 suggests chronic kidney disease if found over a 3 month period of time. eGFR <15 indicates renal failure. Blood 06/05/2025 2:00 AM EST 06/05/2025 4:15 PM EST us Lokesh Anderson MD LAB BLOOD ORDERABLES Final Resul t [facility] [address] [place] [address], [facility] [phone] documented in this encounter Visit Diagnoses Diagnosis Other specified hyperalimentation documented in this encounter Care Teams Product Inspection Coordinator Relationship Specialty Start Date End Date Emilia Evans MD [address] [facility] [address] [place] [address] PCP - General 11/15/22 Jelena Arroyo [address] [place] [address] Referring Physician Neurology 11/15/22 documented as of this encounter
--- OUTSIDE RECORDS SUMMARY | 2025-06-06 22:18 | XMS_ITS | Encounter Summary ---
Author Organization Healthcare Address [address] [place] [address] Care Team Providers Care Utility Manager Name Role Phone Golden Newell MD Primary Care Provider [phone] Encounter Details Date Type Department Care Team (Late st Contact Info) Description 04/24/2025 Telephone [facility] [address] [place] [address] Lokesh Anderson MD [address] [phone] Social History Tobacco Use Types [...] any time in the past 12 m [facility], were you homeless or living in a correction (including now)? No 03/21/2025 [facility] Utilities Answer Date Recorded In [...] Telephone Encounter - Alejandro Reynolds LPN - 04/24/2025 9:15 AM EDT Called Francisco back and let her know that we have d/c patient from TPN as well as pulled her PICC lineso no labs were needed. Francisco expressed understanding and had no further questions. * Telephone Encounter - [place] - 04/24/2025 8:39 AM EDT Patient Phone Message Reason for Call: Francisco is calling from [employer] she is wanting to know if Ms. Dale still have orders todraw labs, she is with the pt now and is needing to know if she needs to draw labs while she is there. Best contact number and optimal time of day to reach caller: Francisco [phone] Note: Please do not reply to this message. Follow-up communication and further actions as a result of this message need to be communicated with the patient directly, if the patient is not active onMyChart. If the patient is active on MyChart, they will receive notification of the communication/outcome via [employer]anth[employer]. documented in this encounter Plan of Treatment Upcoming Encounters Date Type Department Care Team (Late st Contact Info) Description 06/13/2025 10:00 AM EST Office Visit [facility] [address] [place] [address] Vibha Osborn, RELAY WORKER [address] [facility] [address] [place] [address] documented as of this encounter [...] documented as of this encounter Care Teams Utility Manager Relationship Specialty Start Date End Date Golden Newell MD [address] [id number] PCP - General 12/04/20 documented as of this encounter
--- OUTSIDE RECORDS SUMMARY | 2025-06-06 22:18 | XMS_ITS | Encounter Summary ---
Author Organization [facility] Address [address] [place] [address] Care Team Providers Care Recovery Operator Helper Name Role Phone Golden Newell MD Primary Care Provider [phone] Encounter Details Date Type Department Care Team (Latest Contact Info) Description 04/30/2025 Travel Social History Tobacco Use Types Packs/Day [...] any time in the past 12 m [facility], were you homeless or living in a [place] facility (including now)? No 03/21/2025 [facility] Utilities Answer Date Recorded In [...] hopeless Not at all 10/2024 1:02 PM Sarah Kirkpatrick Patient Health Questionnaire-2 Score 0 10/2024 1:02 PM Sarah Kirkpatrick * Question Answer Date of Assessment Author Thoughts that you would be b sarah off or hurting yourself in some way Not at all 04/30/2025 1:02 PM Sarah Kirkpatrick documented as of this encounter Plan of Treatment Upcoming Encounters Date Type Department Care Team (Late st Contact Info) Description 06/13/2025 10:00 AM EST Office Visit [facility] Mult[facility] On[facility] Clinic [address] [place] [phone] Vibha Osborn, TELETYPE TECHNICIAN [address] [facility] [address] [place] [address] documented as of this encounter Goals Goal [...] documented as of this encounter Care Teams Recovery Operator Helper Relationship Specialty Start Date End Date Golden Newell MD [address] [place] [address] PCP - General 12/04/20 documented as of this encounter
--- OUTSIDE RECORDS SUMMARY | 2025-06-06 22:18 | XMS_ITS | Encounter Summary ---
Author Organization [facility] Address [address] [place] [address] Care Team Providers Care Padded Products Finisher Name Role Phone Golden Newell MD Primary Care Provider [phone] Encounter Details Date Type Department Care Team (Latest Contact Info) Description 04/23/2025 Travel Social History Tobacco Use Types Packs/Day [...] any time in the past 12 [facility], were you homeless or living in a half-way (including now)? No 03/21/2025 [facility] Utilities Answer Date Recorded In the [...] things Not at all 04/23/2025 11:46 AM CARTERT Sarah Hou Feeling down, depressed, or hopeless Not at all 03/27 11:46 AM CARTERT Sarah Hou Patient Health Questionnaire-2 Score 0 03/27 11:46 AM CARTERT Sarha Hou * Question Answer Date of Assessment Author Thoughts that you would be b sarah off or hurting yourself in some way Not at all 04/23/2025 11:46 AM Sarah Durant documented as of this encounter Plan of Treatment Upcoming Encounters Date Type Department Care Team (Late st Contact Info) Description 06/13/2025 10:00 AM EST Office Visit [facility] [address] [place] [address] Vibha Osborn, FLYER MAKER [address] [facility] [address] [place] [address] documented as of this encounter Goals Goal [...] documented as of this encounter Care Teams Padded Products Finisher Relationship Specialty Start Date End Date Golden Newell MD [address] [facility] [address] [place] [address] PCP - General 12/04/20 documented as of this encounter
--- OUTSIDE RECORDS SUMMARY | 2025-06-06 22:18 | XMS_ITS | Clinical Summary ---
Author Organization [facility] ([place], [place], [place], [place], [place]) Address [address] [place] [address] Care Team Providers Care Cadworx Piping Designer Name Role Phone Jelena Arroyo Emilia Evans MD Primary Care Provider [phone] Encounters Date Type Department Care Team Description 06/05/2025 Lab Requisition [facility] [address] [phone] Lokesh Anderson MD Other specified hyperalimentation 06/05/2025 Travel 04/21/2025 Lab Requisition [facility] [address] [phone] Lokesh Anderson MD Aftercare following surgery for neoplasm 04/17/2025 Lab Requisition [facility] [address] [place] [address] Lokesh Anderson MD Neoplasm of unspecified behavior of digestive system 04/14/2025 Lab Requisition [facility] Lab [address] [place] [address] Lokesh Anderson MD Neoplasm of unspecified behavior of digestive system 04/10/2025 Lab Requisition [facility] [address] [place] [address] Lokesh Anderson MD Neoplasm of unspecified behavior of digestive system from Last 3 Months Social History Tobacco Use Types Packs/Day Years [...] Date Garett rded Speak language other than Guamanian at home Not on file 07/07/2023 Want [...] on file Sexual Orientation Not on file Plan of Treatment Not on file Procedures Procedure Name Priority Date/Time Associated Diagnosis Comments HEPATIC FUNCTION PANEL Routine 06/05/2025 2:00 AM EST Other specified hyperalimentation TRIGLYCERIDES Routine 06/05/2025 2:00 AM EST Other specified hyperalimentation PHOSPHORUS Routine 06/05/2025 2:00 AM EST Other specified hyperalimentation MAGNESIUM Routine 06/05/2025 2:00 AM EST Other specified hyperalimentation BASIC METABOLIC PANEL Routine 06/05/2025 2:00 AM EST Other specified hyperalimentation TRIGLYCERIDES Routine 04/21/2025 1:00 PM EDT Aftercare following surgery for neoplasm BASIC METABOLIC PANEL Routine 04/21/2025 1:00 PM EDT Aftercare following surgery for neoplasm PHOSPHORUS Routine 04/21/2025 1:00 PM EDT Aftercare following surgery for neoplasm MAGNESIUM Routine 04/21/2025 1:00 PM EDT Aftercare following surgery for neoplasm TRIGLYCERIDES Routine 04/17/2025 12:00 PM EDT Neoplasm [...] Neoplasm of unspecified behavior of digestive system TRIGLYCERIDES Routine 04/14/2025 1:30 PM EDT Neoplasm of unspecified behavior of digestive system MAGNESIUM Routine 04/14/2025 1:30 PM EDT Neoplasm of unspecified behavior of digestive system MAGNESIUM Routine 04/10/2025 4:00 AM EDT Neoplasm of unspecified behavior of digestive system PHOSPHORUS Routine 04/10/2025 4:00 AM EDT Neoplasm of unspecified behavior of digestive system BASIC METABOLIC PANEL Routine 04/10/2025 4:00 AM EDT Neoplasm of unspecified behavior of digestive system from Last 3 Months Results * Triglycerides (06/05/2025 2:00 AM EST) Only the most recent of4 resultswithin the time period is included. Triglycerides 95 15 - 150 mg/dL 06/05/2025 4:32 PM EST [facility] Blood 06/05/2025 2:00 AM EST 06/05/2025 4:15 PM EST Lokesh Anderson MD LAB BLOOD ORDERABLES Final Resul t [facility] [address] [phone] * Phosphorus (06/05/2025 2:00 AM EST) Only the most recent of5 resultswithin the time period is included. Phosphorus 4.1 2.6 - 4.9 mg/dL 06/05/2025 4:32 PM EST [facility] Blood 06/05/2025 2:00 AM EST 06/05/2025 4:15 PM EST us Lokesh Anderson MD LAB BLOOD ORDERABLES Final Resul t Performing Organization Address City/[facility]/ZIP Co de Phone Number [facility] [address] [place] [address] * (ABNORMAL) Magnesium (06/05/2025 2:00 AM EST) Only the most recent of5 resultswithin the time period is included. Magnesium 1.7(L) 1.8 - 2.4 mg/dL 06/05/2025 4:32 PM EST [facility] Blood 06/05/2025 2:00 AM EST 06/05/2025 4:15 PM EST us Lokesh Anderson MD LAB BLOOD ORDERABLES Final Resul t Performing Organization Address City/[facility]/ZIP Co de Phone Number [facility] [address] [place] [address] * (ABNORMAL) Hepatic function panel (06/05/2025 2:00 AM EST) Protein, Total 7.2 6.4 - 8.2 gm/dL 06/05/2025 4:32 PM EST [facility] Albumin 1.6(L) 3.4 - 5.0 g/dL 06/05/2025 4:32 PM EST [facility] Total Bilirubin 0.2 0.2 - 1.0 mg/dL 06/05/2025 4:32 PM EST [facility] Bilirubin, Direct 0.1 0.1 - 0.2 mg/dL 06/05/2025 4:32 PM EST [facility] Alkaline Phosphatase 110 46 - 116 U/L 06/05/2025 4:32 PM EST [facility] Globulin 5.6 g/dL 06/05/2025 4:32 PM EST [facility] A/G Ratio 0.3 06/05/2025 4:32 PM EST [facility] AST 28 15 - 37 U/L 06/05/2025 4:32 PM EST [facility] Comment:Eterniam has become aware of sulfasalazine and sulfapyridine [...] - 78 U/L 06/05/2025 4:32 PM EST [facility] Comment:Eterniam has become aware of sulfasalazine and sulfapyridine [...] 2:00 AM EST 06/05/2025 4:15 PM EST Lokesh Anderson MD LAB BLOOD ORDERABLES Final Resul t [facility] [address] [place], [place] [address] [phone] * (ABNORMAL) Basic Metabolic Panel (06/05/2025 2:00 AM EST) Only the most recent of5 resultswithin the time period is included. Sodium 136 136 - 145 meq/L 06/05/2025 4:32 PM [facility] Potassium 4.0 3.5 - 5.1 meq/L 06/05/2025 4:32 PM [facility] Chloride 100 98 - 107 meq/L 06/05/2025 4:32 PM EST [facility] CO2 30 21 - 32 meq/L 06/05/2025 4:32 PM [facility] Anion Gap 10(L) - 06/05/2025 4:32 PM EST [facility] BUN 17 7 - 18 mg/dL 06/05/2025 4:32 PM [facility] Creatinine 0.59 0.55 - 1.10 mg/dL 06/05/2025 4:32 PM [facility] BUN/Creatinine 29 06/05/2025 4:32 PM [facility] Glucose 117(H) 74 - 100 mg/dL 06/05/2025 4:32 PM [facility] Calcium 8.6 8.5 - 10.1 mg/dL 06/05/2025 4:32 PM [facility] Osmolality Calc 274.5 mOsm/kg 4:32 PM [facility] eGFR (mL/min/1.73m2) >60 >=60 mL/min/1.7 3m2 06/05/2025 4:32 PM [facility] Comment:eGFR of <60 suggests chronic kidney disease if found over a 3 month period of time. eGFR <15 indicates renal failure. Blood 06/05/2025 2:00 AM EST 06/05/2025 4:15 PM EST Lokesh Anderson MD LAB BLOOD ORDERABLES Final Resul t [facility] [address] [place] [address], [facility] [phone] from Last 3 Months Insurance [employer] MEDICARE PPO Care Teams Cadworx Piping Designer Relationship Specialty Start Date End Date Emilia Evans MD [address] [facility] [address] [place] [address] PCP - General 11/15/22 Jelena Arroyo [address] [place] [address] Referring Physician Neurology 11/15/22
--- OUTSIDE RECORDS SUMMARY | 2025-06-06 22:18 | XMS_ITS | Patient Health Record ---
[facility] Address [address] [facility] [address] [place] [id number] Care Team Providers Care Elevator Runner Name Role Phone Antwan Gene Raymundo Primary Care Provider Golden Newell Unavailable [phone] Selene Foster Unavailable [phone] Allergies No Known Allergies Results Component Value [...] 01:05:16 PM Interpretation:>2000 Performing Lab: Notes/Report: CLIA: [id number] Lico Berrios MD, Wireless Store Manager [address] [place] [address] , [address], [place] [address] Test performed by [email or web address], [employer] Vitamin B12 >2000 232-1245 pg/mL P-Comprehensive Metabolic Pa janie (CMP) Reviewed date:09/04/2024 01:05:16 PM Interpretation:K+ 6.5, gluc 48, alt 67 Performing Lab: Notes/Report: Test performed by [employer] [address] [place] [address] , [address], [place] [address] Lico Berrios MD, Wireless Store Manager CLIA: [id number] Sodium 142 135-145 mmol/L Potassium 6.5 3.5-5.3 [...] Growth Performing Lab: Notes/Report: Test performed by [employer] [address] [place] [address] , [address], [place] [address] Lico Berrios MD, Wireless Store Manager CLIA: [id number] Specimen Source Urine - Void Culture, Urine See Below Final Report : No Significant Growth P-T4 Free (thyroxine) Reviewed date:09/04/2024 01:05:16 PM Interpretation:Normal Performing Lab: Notes/Report: Test performed by [employer] [address] [place] [address] Sallie Aldana, [address], [place] [address] Lico Berrios MD, Wireless Store Manager CLIA: [id number] Thyroxine Free (free T4) 1.24 0.86-1.76 ng/dL P-Lipid Panel Reviewed date:09/04/2024 01:05:16 PM Interpretation:Normal Performing Lab: Notes/Report: Test performed by [employer] [address] [place] [address] , [address], [place] [address] Lico Berrios MD, Wireless Store Manager CLIA: [id number] Cholesterol 157 <200 mg/dL Triglycerides 83 <150 [...] Interpretation:Normal Performing Lab: Notes/Report: Test performed by [employer] [address] [place] [address] , [facility] [address], [place] [address] Lico Berrios MD, Wireless Store Manager CLIA: [id number] TSH 2.41 0.43-5.25 mU/L P-Vitamin D 25-Hydroxy Reviewed date:09/04/2024 01:05:16 PM Interpretation:41.1 Performing Lab: Notes/Report: Test performed by [employer] [address] , [address], [place] [address] Lico Berrios MD, Wireless Store Manager CLIA: [id number] Vitamin D 25-Hydroxy 41.1 30.0-100.0 ng/mL Interpretation of Vitamin D 25 OH: < 20 ng/mL - Deficiency 20 - 29 ng/mL - Insufficiency 30 - 100 ng/mL - Sufficiency > 100 ng/mL - Super-therapeutic- toxicity may occur above this level. Clinical correlation required. Bone density Reviewed date:09/13/2024 09:05:35 AM Interpretation: Performing Lab: Notes/Report: P-Comprehensive Metabolic Pa janie (CMP) Reviewed date:09/04/2024 01:05:15 PM Interpretation:ALT 80, AST 48 Performing Lab: Notes/Report: Test performed by [employer] [address] [place] [address] , [address], [place] [address] Lico Berrios MD, Wireless Store Manager CLIA: [id number] Sodium 143 135-145 mmol/L Potassium 4.3 3.5-5.3 [...] 0.6 <0.2-1.2 mg/dL A/G Ratio 2.0 1.1-2.5 MRCP Reviewed date:09/18/2024 08:42:58 AM Interpretation: Performing Lab: Notes/Report: Ultrasound : Abdomen, Right Upper Quadrant Reviewed date:09/13/2024 09:03:51 AM Interpretation: Performing Lab: Notes/Report: Medications Medication SIG (Take, Route, Frequency, Duration) Notes Start Date End Date Status Vitamin B 12 500 MCG 1 tablet Orally Once a day; Duration: 30 day(s) Active Mupirocin 2 % 1 application Externally Twice a day 08/29/2024 Active Methotrexate Sodium 2.5 MG 4 tablets Orally once weekly Active Folic Acid 1 MG 1 tablet Orally Once a day; Duration: 30 day(s) Active Vitamin D3 Complete - 1 tab(s) Orally Two times a day pt takes 600mg BID Active Atorvastatin Calcium 80 MG 1 tablet Orally Once a day; Duration: 90 days Pt needs appointment Active Omeprazole 40 MG 1 capsule 30 minutes before morning meal Orally Once a day; Duration: 90 days Active Aspirin 81 MG 1 tab(s) orally once a day; Duration: 30 day(s) Active Immunizations Vaccine Route Administration Date Status Comme nts Zostavax Unknown 05/07/2015 Administered Prevnar (PCV20) IM Intramuscular 08/10/2022 Administered PNEUMOVAX 23 VACCINE IM Intramuscular 08/29/2024 Administered Fluzone High Dose (65yr and older) IM Intramuscular 03/08/2021 Administered Given by Lindsay Espinal DT, 7 YEARS OR OLDER Unknown 09/05/1996 Administered DT, 7 YEARS OR OLDER Unknown 04/30/2003 Administered DT, 7 YEARS OR OLDER IM Intramuscular 11/23/2005 Administered Problems Problem Type SNOMED Code ICD Code Onset Dates Problem Status W/U Status Risk Notes Problem Vitamin D deficiency (41477062) Vitamin D deficiency (E55.9) Active confirmed Problem Osteopenia (336050452) Osteopenia (M85.80) Active confirmed Problem History of calculus of kidney (711525328) History of kidney stones (Z87.442) Active confirmed Problem Gastroesophageal reflux disease (disorder) (155243678) Chronic GERD (K21.9) Active confirmed Problem Rheumatoid arthritis (29656319) Rheumatoid arthritis involving multiple sites with positive rheumatoid factor (M05.79) Active confirmed Problem Pure hypercholesterolemia (830492168) Pure hypercholesterolemia (E78.00) Active confirmed Problem Rheumatoid arthritis (77938692) Rheumatoid arthritis flare (M06.9) Active confirmed Problem CN III palsy, 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 Problem Cholangiectasis (785196101) Dilated bile duct (K83.8) Active confirmed Vital Signs Heart Rate 66 /min 08/29/2024 Blood pressure diastolic 86 mm Hg 08/29/2024 Height 64 in 08/29/2024 Blood pressure systolic 132 mm Hg 08/29/2024 Weight 179.6 lbs 08/29/2024 BMI 30.82 kg/m2 08/29/2024 Encounters Encounter Location Date Provider Diagnosis [facility] [address] [id number] 08/29/2024 Selene Foster Adult general medica l [...] cancer screening Z12.11 and BMI 30.0-30.9,adult Z68.30 [facility] [address] [place], [place] [id number] 09/02/2024 Selene Crowdy Pure hypercholestero lemia E78.00 [facility] [address] [place], [place] [id number] 06/28/2024 R Raymundo Antwan [facility] [address] [place], [place] [id number] 08/30/2024 R Raymundo Antwan [facility] [address] [place], [place] [id number] 09/04/2024 Selene Crowdy Elevated LFTs R79.89 [facility] [address] [place], [place] [id number] 09/13/2024 Selene Crowdy Dilated bile duct K8 3.8 [facility] [address] [place], [place] [id number] 09/18/2024 Selene Crowdy [facility] [address] [place], [place] [id number] 10/21/2024 R Raymundo Antwan [facility] [address] [place], [place] [id number] 02/04/2025 R Raymundo Antwan [facility] [address] [place], [place] [id number] 04/09/2025 R Raymundo Antwan Assessments Encounter Date Diagnosis (ICD Code) Assessment Notes Treatment Notes Treatment Clinical Notes Section Notes 09/13/2024 Dilated bile duct (ICD-10 - K83.8) 09/04/2024 Elevated LFTs (ICD-1 0 - R79.89) 09/02/2024 Pure hypercholesterolemia (ICD-10 - E78.00) 08/29/2024 Impetigo (ICD-10 - L01.00) 08/29/2024 Adult general medica l examination (ICD-10 - Z00.00) Patient instructed to return to office Annually for Annual Wellness Visits to include annual screenings of Pain assessment, Functional Ability assessment, Cognitive Ability assessment, Fall Risk assessment, Depression screening and Bladder control screening. 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
--- OUTSIDE RECORDS SUMMARY | 2025-06-06 22:18 | XMS_ITS | Encounter Summary ---
Author Organization [facility] Address [address] [place] [address] Care Team Providers Care Shipping And Receiving Clerk Name Role Phone Golden Newell MD Primary Care Provider [phone] Encounter Details Date Type Department Care Team (Latest Contact Info) Description 05/17/2025 Travel Social History Tobacco Use Types Packs/Day [...] time in the past 12 m [facility], were you homeless or living in a intermediate (including now)? No 05/14/2025 [facility] Utilities Answer Date Recorded In the past [...] Answer Date of Assessment Author Precautions Fall risk;[facility] surveillance 05/17/2025 8:15 AM Steffi Frias RN * Calculated C-SSRS Risk Score (Lifetime/Recent) Answer Date of Assessment Author No Risk Indicated 05/17/2025 8:15 AM Steffi Frias RN * Question Answer Date of Assessment Author 1. Wish to be (Past 1 Month) No 025 8:15 AM Steffi Frias, AJ 2. Non-Specific Active Suici sathish Thoughts (Past 1 Month) No 05/17/2025 8:15 AM Steffi Frias , AJ 6. Suicidal Behavior (Lifetime) No 8:15 AM Steffi Frias, AJ documented as of this encounter Mental Status * Question Answer Entry Date Author Precautions Fall risk;[facility] surveillance 05/17/2025 8:15 AM Steffi Frias RN documented in this encounter Plan of Treatment Upcoming Encounters Date Type Department Care Team (Late st Contact Info) Description 06/13/2025 10:00 AM EST Office Visit [facility] Multidisciplinary Oncology Clinic [address] [place] [address] Vibha Osborn E, HALL MONITOR [address] [place] [address] documented as of this encounter Goals Goal [...] documented as of this encounter Care Teams Shipping And Receiving Clerk Relationship Specialty Start Date End Date Golden Newell MD [address] [facility] [address] [place] [address] PCP - General 12/04/20 documented as of this encounter
--- OUTSIDE RECORDS SUMMARY | 2025-06-06 22:18 | XMS_ITS | Referral Summary ---
Author Organization [email or web address] ([place], [place], [place], [place], [place]) Address [address] [place] [address] Care Team Providers Care Health Information Administrator Name Role Phone Jelena Arroyo Emilia Evans MD Primary Care Provider [phone] Encounters Date Type Department Care Team Description 06/05/2025 Lab Requisition [facility] [address] [phone] Lokesh Anderson MD Other specified hyperalimentation 06/05/2025 Travel 04/21/2025 Lab Requisition [facility] [address] [phone] Lokesh Anderson MD Aftercare following surgery for neoplasm 04/17/2025 Lab Requisition [facility] [address] [place] [address] Lokesh Anderson MD Neoplasm of unspecified behavior of digestive system 04/14/2025 Lab Requisition [facility] [address] [place] [address] Lokesh Anderson MD Neoplasm of unspecified behavior of digestive system 04/10/2025 Lab Requisition [facility] [address] [place] [address] Lokesh Anderson MD Neoplasm of unspecified behavior [...] Date Garett rded Speak language other than Mauritian at home Not on file 07/07/2023 Want [...] - 150 mg/dL 06/05/2025 4:32 PM EST [facility] Blood 06/05/2025 2:00 AM EST 06/05/2025 4:15 PM EST Lokesh Anderson MD LAB BLOOD ORDERABLES Final Resul t [facility] [address] [phone] * Phosphorus (06/05/2025 2:00 AM EST) Only the most recent of5 resultswithin the time period is included. Phosphorus 4.1 2.6 - 4.9 mg/dL 06/05/2025 4:32 PM EST [facility] Blood 06/05/2025 2:00 AM EST 06/05/2025 4:15 PM EST us Lokesh Anderson MD LAB BLOOD ORDERABLES Final Resul t Performing Organization Address City/[facility]/ZIP Co de Phone Number [facility] [address] [place] [address] * (ABNORMAL) Magnesium (06/05/2025 2:00 AM EST) Only the most recent of5 resultswithin the time period is included. Magnesium 1.7(L) 1.8 - 2.4 mg/dL 06/05/2025 4:32 PM EST [facility] Blood 06/05/2025 2:00 AM EST 06/05/2025 4:15 PM EST us Lokesh Anderson MD LAB BLOOD ORDERABLES Final Resul t Performing Organization Address City/[facility]/ZIP Co de Phone Number [facility] [address] [place] [address] * (ABNORMAL) Hepatic function panel (06/05/2025 2:00 AM EST) Protein, Total 7.2 6.4 - 8.2 gm/dL 06/05/2025 4:32 PM EST [facility] Albumin 1.6(L) 3.4 - 5.0 g/dL 06/05/2025 4:32 PM EST [facility] Total Bilirubin 0.2 0.2 - 1.0 mg/dL 06/05/2025 4:32 PM EST [facility] Bilirubin, Direct 0.1 0.1 - 0.2 mg/dL 06/05/2025 4:32 PM EST [facility] Alkaline Phosphatase 110 46 - 116 U/L 06/05/2025 4:32 PM EST [facility] Globulin 5.6 g/dL 06/05/2025 4:32 PM EST [facility] A/G Ratio 0.3 06/05/2025 4:32 PM EST [facility] AST 28 15 - 37 U/L 06/05/2025 4:32 PM EST [facility] Comment:[employer] has become aware of sulfasalazine and sulfapyridine [...] - 78 U/L 06/05/2025 4:32 PM EST [facility] Comment:[employer] has become aware of sulfasalazine and sulfapyridine [...] MD LAB BLOOD ORDERABLES Final Resul t [facility] [address] [place], [place] [address] [phone] * (ABNORMAL) Basic Metabolic Panel (06/05/2025 2:00 AM EST) Only the most recent of5 resultswithin the time period is included. Sodium 136 136 - 145 meq/L 06/05/2025 4:32 PM [facility] Potassium 4.0 3.5 - 5.1 meq/L 06/05/2025 4:32 PM [facility] Chloride 100 98 - 107 meq/L 06/05/2025 4:32 PM EST [facility] CO2 30 21 - 32 meq/L 06/05/2025 4:32 PM [facility] Anion Gap 10(L) - 06/05/2025 4:32 PM EST [facility] BUN 17 7 - 18 mg/dL 06/05/2025 4:32 PM [facility] Creatinine 0.59 0.55 - 1.10 mg/dL 06/05/2025 4:32 PM [facility] BUN/Creatinine 29 06/05/2025 4:32 PM [facility] Glucose 117(H) 74 - 100 mg/dL 06/05/2025 4:32 PM [facility] Calcium 8.6 8.5 - 10.1 mg/dL 06/05/2025 4:32 PM [facility] Osmolality Calc 274.5 mOsm/kg 4:32 PM [facility] eGFR (mL/min/1.73m2) >60 >=60 mL/min/1.7 3m2 06/05/2025 4:32 PM [facility] Comment:eGFR of <60 suggests chronic kidney disease if found over a 3 month period of time. eGFR <15 indicates renal failure. Blood 06/05/2025 2:00 AM EST 06/05/2025 4:15 PM EST Lokesh Anderson MD LAB BLOOD ORDERABLES Final Resul t [facility] [address] [place] [address], [facility] [phone] from Last 3 Months Insurance [employer] MED[employer] PPO Care Teams Health Information Administrator Relationship Specialty Start Date End Date Emilia Evans MD [address] [facility] [address] [place] [address] PCP - General 11/15/22 Jelena Arroyo [address] [place] [address] Referring Physician Neurology 11/15/22
--- OUTSIDE RECORDS SUMMARY | 2025-06-06 22:18 | XMS_ITS | Encounter Summary ---
Author Organization Healthcare Address [address] [place] [address] Care Team Providers Care Executive Recruiter Name Role Phone Golden Newell MD Primary Care Provider [phone] Encounter Details Date Type Department Care Team (Late st Contact Info) Description 05/13/2025 Telephone [facility] [address] [place] [address] Alesia Cui, END PACKER [address] [facility] [address] [place] [phone] Social History Tobacco Use Types Packs/Day Years [...] any time in the past 12 m [facility], were you homeless or living in a longterm (including now)? No 05/14/2025 [facility] Utilities Answer Date Recorded In the [...] Date of Assessment Author No Risk Indicated 05/13/2025 7:00 PM EST Vernon Torres RN * Question Answer Date of Assessment Author 1. Wish to be (Past 1 Month) No 025 7:00 PM Vernon Vaca, RN 2. Non-Specific Active Suici sathish Thoughts (Past 1 Month) No 05/13/2025 7:00 PM EST Lulú Torres RN 6. Suicidal Behavior (Lifetime) No 7:00 PM Vernon Vaca, RN documented as of this encounter Mental Status * Question Answer Entry Date Author Scale Used Melchor 05/14/2025 4:56 AM EST Nettie Archuleta RN documented in this encounter Plan of Treatment Upcoming Encounters Date Type Department Care Team (Late st Contact Info) Description 06/13/2025 10:00 AM EST Office Visit [facility] [address] [place] [address] Vibha Osborn, END PACKER [address] [place] [phone] documented as of this encounter Goals Goal Patient Goal Type Associated Problems Recent Progress Patient-Stated? Author Autogenerat ed Goal Care Plan Autogenerated Problem No Jennifer Saibllon Autogenerat ed Goal Care Plan Autogenerated Problem [...] documented as of this encounter Care Teams Executive Recruiter Relationship Specialty Start Date End Date Golden Newell MD [address] [facility] [address] [place] [address] PCP - General 12/04/20 documented as of this encounter
--- OUTSIDE RECORDS SUMMARY | 2025-06-06 22:18 | XMS_ITS | Encounter Summary ---
Author Organization [facility] Address [address] [place] [address] Care Team Providers Care Watch Case Polisher Name Role Phone Golden Newell MD Primary Care Provider [phone] Encounter Details Date Type Department Care Team (Latest Contact Info) Description 05/14/2025 Travel Social History Tobacco Use Types Packs/Day [...] a senior living (including now)? No 05/14/2025 [facility] Utilities Answer Date Recorded In the [...] Answer Date of Assessment Author Precautions Fall risk 05/14/2025 8:00 PM Claribel Jacinto RN * Calculated C-SSRS Risk Score (Lifetime/Recent) Answer Date of Assessment Author No Risk Indicated 05/14/2025 6:15 PM Petr Vargas RN * Question Answer Date of Assessment Author 1. Wish to be (Past 1 Month) No 025 6:15 PM Petr Vargas RN 2. Non-Specific Active Suici sathish Thoughts (Past 1 Month) No 05/14/2025 6:15 PM Petr Vargas RN 6. Suicidal Behavior (Lifetime) No 6:15 PM Petr Vargas RN documented as of this encounter Mental Status * Question Answer Entry Date Author Precautions Fall risk 05/14/2025 8:00 PM Claribel Jacinto RN * Question Answer Entry Date Author Scale Used Melchor 05/14/2025 4:56 AM Nettie Farmer RN documented in this encounter Plan of Treatment Upcoming Encounters Date Type Department Care Team (Late st Contact Info) Description 06/13/2025 10:00 AM EST [facility] [address] [place] [address] Vibha Osborn, COTTON FARMWORKER [address] [place] [address] documented as of this encounter Goals Goal [...] documented as of this encounter Care Teams Watch Case Polisher Relationship Specialty Start Date End Date Golden Newell MD [address] [facility] [address] [place] [address] PCP - General 12/04/20 documented as of this encounter
--- OUTSIDE RECORDS SUMMARY | 2025-06-06 22:19 | XMS_ITS | Encounter Summary ---
Author Organization [facility] Address [address] [place] [address] Care Team Providers Care Surg Nurse Name Role Phone Golden Newell MD Primary Care Provider [phone] Encounter Details Date Type Department Care Team (Latest Contact Info) Description 05/13/2025 Travel Social History Tobacco Use Types Packs/Day [...] in the past 12 m [facility], were you homeless or living in a half-way (including now)? No 05/14/2025 [facility] Utilities Answer Date Recorded In [...] (Past 1 Month) No 05/13/2025 7:00 PM Lulú Vaca RN 6. Suicidal Behavior (Lifetime) No 7:00 PM EST Vernon Torres, RN documented as of this encounter Plan of Treatment Upcoming Encounters Date Type Department Care Team (Late st Contact Info) Description 06/13/2025 10:00 AM EST Office Visit [facility] Mult[facility]isciplinary Oncology [facility] [address] [place] [phone] Vibha Osborn E, MUSIC TEACHER [address] [place] [phone] documented as of this encounter Goals Goal [...] documented as of this encounter Care Teams Surg Nurse Relationship Specialty Start Date End Date Golden Newell MD [address] [facility] [address] [place] [address] PCP - General 12/04/20 documented as of this encounter
[2025-06-06] MEDS: PROCHLORPERAZINE 10MG/2ML VIAL 5 MG IV (22:52)
[2025-06-06 23:00] LABS: Hematocrit 29.5 % (37.0-47.0); Hemoglobin 9.7 g/dL (12.2-16.2); Immature Granulocytes % 0.3 %; Mean Corpuscular HGB Conc 32.9 g/dL (31.8-35.4); Mean Corpuscular Hemoglobin 29.0 pg (27.0-31.2); Mean Corpuscular Volume 88.1 fl (81-99); Nucleated Red Blood Cells % 0 %; Platelet Count 578 K/mm3 (142-424); Red Blood Count 3.35 M/mm3 (4.20-5.40); Red Cell Distribution Width-SD 52.3 fL; White Blood Count 10.1 K/mm3 (4.8-10.8)
--- NOTE | 2025-06-06 23:03 | ECG_ITS ---
APPROVED REPORT Exam: Resting ECG HR:107 bpm ECG Measurements Heart Rate 107 AXES NJ 140 P 62 QRSd 80 QRS -16 QT 324 T 36 QTc 386 Conclusion SINUS TACHYCARDIA POSSIBLE ANTERIOR MYOCARDIAL INFARCTION , PROBABLY OLD [30 ms Q WAVE IN V3/V4, OR R < 0.2 mV IN V4] ABNORMAL RHYTHM ECG UNCONFIRMED REPORT Electronically signed by : MEHUL RODRIGUEZ, 06/09/2025 00:20:10
[2025-06-06 23:05] LABS: Albumin Level 3.2 g/dl (3.5-5.0); Chloride 103 mmol/L (98-107)
[2025-06-06 23:06] LABS: Potassium 4.1 mmoL/L (3.5-5.1); Sodium 136 mmol/L (136-145)
[2025-06-06 23:08] LABS: Alanine Aminotransferase 22 U/L (12-78); Albumin/Globulin Ratio 0.7 (1.1-1.8); Alkaline Phosphatase 115 U/L (38-126); Anion Gap 12.1 mEq/L (5-15); Aspartate Amino Transferase 34 U/L (14-36); Bilirubin,Total 0.3 mg/dl (0.2-1.3); Blood Urea Nitrogen 18 mg/dl (7-17); Carbon Dioxide 25 mmol/L (22.0-30.0); Creatinine Clearance Estimated 56 mL/min (50-200); Creatinine,Serum 0.50 mg/dl (0.52-1.04); Estimated Glomerular Filt Rate 122 ml/min (>60); GFR (African American) 147 ML/MIN (>60); Globulin 4.5 g/dL (1.3-3.2); Phosphorous 3.5 mg/dl (2.5-4.5); Total Protein,Serum 7.7 g/dl (6.3-8.2)
[2025-06-06 23:09] LABS: Calcium 8.1 mg/dl (8.4-10.2); Creatine Kinase < 20 U/L (30-135); Glucose 155 mg/dl (74-100); Lipase 37 U/L (23-300); Magnesium 1.8 mg/dl (1.6-2.3)
[2025-06-06 23:22] LABS: Troponin I < 0.01 ng/ml (0.00-0.034)
[2025-06-06 23:37] LABS: Coronavirus 19, PCR Not Detected (NotDetected); Influenza A, PCR Not Detected (NotDetected); Influenza B, PCR Not Detected (NotDetected)
[2025-06-06] MEDS: ONDANSETRON 4MG/2ML VIAL 4 MG IV (23:45)
[2025-06-06] MEDS: SODIUM CHLORIDE 0.9% 10ML SYR (RAD ONLY) 10 ML IV (23:55)
[2025-06-06] MEDS: 0.9 % SODIUM CHLORIDE 50 ML VIAL IV (23:56)
[2025-06-06] MEDS: IOPAMIDOL-370 (76%);100ML BOTTLE 75 ML IV (23:56)
[2025-06-07] VITALS (8 sets, daily range): BP systolic 136–152; BP diastolic 75–84; PULSE 105–110; RESP 18; TEMP 37; O2SAT 94–97
[2025-06-07] MEDS: HYDROMORPHONE 2MG/ML SYRINGE 0.25 MG IV ×2 (00:25→03:33)
[2025-06-07 00:29] LABS: Hepatitis C Ab Qual. W/ RFX NEGATIVE (Negative)
[2025-06-07 01:20] LABS: Microscopic, Urine URINE MICROSCOPIC (MICROSCOPIC)
[2025-06-07 01:26] LABS: Bilirubin,Urine Negative (Negative); Color,Urine YELLOW (Yellow); Glucose,Urine (UA) Negative (Negative); Ketones,Urine Negative (Negative); Leukocyte Esterase,Urine Negative (Negative); PH,Urine 6.5 (5.0-8.5); Protein,Urine Negative (Negative); Specific Gravity, Urine 1.015 (1.005-1.030); Urobilinogen,Urine 0.2 EU/dl (0.2)
[2025-06-07 01:54] LABS: Squamous Epithelial Cell,Urine Occasional #/hpf (0-5)
[2025-06-07 01:59] LABS: PTT Heparin (inpatient only) 23.0 Seconds (50-75)
[2025-06-07] MEDS: HEPARIN SODIUM 5,000 UNIT/ML VIAL 5500 UNIT IV (02:14)
[2025-06-07] MEDS: HEPARIN 25,000 UNITS/D5W 500 ML 24 UNIT IV (02:14)
[2025-06-07 02:33] LABS: Troponin I < 0.01 ng/ml (0.00-0.034)
[2025-06-07 04:32] LABS: PTT Heparin (inpatient only) 155.4 Seconds (50-75)
--- NOTE | 2025-06-08 07:42 | PC.NURSE ---
Urine culture results faxed to [facility]
[2025-06-08 12:22] LABS: Acinetobacter calcoaceticus-ba Not Detected; Bacteroides fragilis Not Detected; Candida auris Not Detected; Candida glabrata Not Detected; Enterobacterales Not Detected; Enterococcus faecalis Not Detected; Enterococcus faecium Not Detected; Klebsiella aerogenes Not Detected; Klebsiella pneumoniae grp Not Detected; Proteus spp. Not Detected; Salmonella spp. Not Detected; Serratia marcescens Not Detected; Staphylococcus epidermidis Not Detected; Staphylococcus lugdunensis Not Detected; Staphylococcus spp. Not Detected; Stenotrophomonas maltophilia Not Detected; Streptococcus agalactiae(GrpB) Not Detected; Streptococcus pyogenes Group A Not Detected; Streptococcus spp. Not Detected
--- NOTE | 2025-06-08 12:28 | PC.NURSE ---
Lab called with critical results for this patient. Aerobic was postive with many gram positive rods. SG Hawkins notified as patient was tranferred to [facility]
--- NOTE | 2025-06-08 13:59 | PC.NURSE ---
blood culture results faxed to [facility]
--- OUTSIDE RECORDS SUMMARY | 2025-08-02 19:00 | XMS_ITS | Clinical Summary ---
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 Ordering Clinician Indication Dosage Frequency Signature (SIG) Comments Components amlodipine 5 mg tablet 2024-06 00:00: 00 04-28 23:59 :00 No [id number] HEART 1 tablet DAILY 1 tablet DAILY (route: oral) Med Classific ation: Cardiovas cular Therapy Agents Aspirin Childrens 81 mg chewable tablet 2024-06 00:00: 00 Yes [id number] BLOOD THINNER 1 tablet DAILY 1 tablet DAILY (route: oral) Med Classific ation: Hematolog ical Agents atorvastati n 80 mg tablet 2024-06 00:00: 00 Yes [id number] CHOLESTEROL 1 tablet DAILY 1 tablet DAILY (route: oral) Med Classific ation: Cardiovas cular Therapy Agents Enoxiluv 40 mg/0.4 mL subcutaneou s syringe kit 2024-06 00:00: 00 04-28 23:59 :00 No [id number] BLOOD CLOT MANAGEMENT Per instruc tions DAILY Per instructio ns DAILY (route: subcutaneo us) Med Classific ation: Hematolog ical Agents Lactobacill us acidoph-L.b ulgaricus 1 million cell tablet 2024-06 00:00: 00 04-28 23:59 :00 No [id number] DEFICIENCY 1 tablet 2 TIMES DAILY 1 tablet 2 TIMES DAILY (route: oral) Med Classific ation: Gastroint estinal Therapy Agents Lantus U-100 Insulin 100 unit/mL subcutaneou s solution 2024-06 00:00: 00 04-28 23:59 :00 No [id number] TPN Per instruc tions DAILY Per instructio ns DAILY (route: subcutaneo ) Med Classific ation: Endocrine levofloxaci n 750 mg tablet 2024-06 00:00: 00 04-28 23:59 :00 No [id number] INFECTION 1 tablet DAILY 1 tablet DAILY (route: oral) Med Classific ation: Anti-Infe ctive Agents lidocaine 5 % topical patch 2024-06 00:00: 00 04-28 23:59 :00 No [id number] PAIN Per instruc tions DAILY Per instructio ns DAILY (route: topical) Med Classific ation: Dermatolo gical metronidazo le 500 mg tablet 2024-06 00:00: 00 04-28 23:59 :00 No [id number] INFECTION 1 tablet 2 TIMES DAILY 1 tablet 2 TIMES DAILY (route: oral) Med Classific ation: Anti-Infe ctive Agents oxycodone 5 mg tablet 2024-06 00:00: 00 04-28 23:59 :00 No [id number] PAIN 1 tablet EVERY 8 HOURS 1 tablet EVERY 8 HOURS (route: oral) Med Classific ation: Analgesic , Anti-infl ammatory or Antipyret ic pantoprazol e 40 mg tablet,dorothy yed release 2024-06 00:00: 00 Yes [id number] ACID REFLUX 1 tablet DAILY 1 tablet DAILY (route: oral) Med Classific ation: Gastroint estinal Therapy Agents tamsulosin 0.4 mg capsule 2025-1 0-13 00:00: 00 06-05 00:00 :00 No [id number] URINARY 1 capsule DAILY 1 capsule DAILY (route: oral) Med Classific ation: Genitouri nary Therapy vancomycin 125 mg capsule 2024-06 0-13 00:00: 00 04-28 23:59 :00 No [id number] INFECTION 1 capsule 4 TIMES DAILY 1 capsule 4 TIMES DAILY (route: oral) Med Classific ation: Anti-Infe ctive Agents Vital Signs Vital Name Observation Time Observation Value Commen ts Temperature 2025-06-05 14:24:00.000 97.6 [degF] Height 2025-06-05 13:37:22.000 64 [in_us] Pulse 2025-06-05 14:24:00.000 86 /min O2 Saturation (%) 2025-06-05 14:24:00.000 97 % Respirations 2025-06-05 14:24:00.000 18 /min Weight (lbs) 2025-06-05 13:37:28.000 Systolic Blood Pressure 2025-06-05 14:24:00.000 120 mm [Hg] Diastolic Blood Pressure 2025-06-05 14:24:00.000 80 mm [Hg] Plan of Treatment Planned Activity Planned Date Details Comments Future Scheduled Test RN TO OBSE RVE, ASSESS, EVALUATE, AND DEVELOP AN INDIVIDUALIZED PLAN OF CARE. AGENCY MAY ACCEPT ORDERS FROM CONSULTING PHYSICIANS DR.KIM ROCHA TO OBSERVE AND ASSESS, IOS DEVELOPER/RAILROAD SUPERVISOR OF ENGINES TO OBSERVE FOR RISK FOR FALLS AND INSTRUCT IN FALL PREVENTION, HOME SAFETY, MEDICATION MANAGEMENT, INFECTION PREVENTION, AND NUTRITION MANAGEMENT. RN/IOS DEVELOPER/RAILROAD SUPERVISOR OF ENGINES NURSE MAY PERFORM O2 SATURATION LEVEL ON ADMISSION AND PRN FOR RN TO ASSESS/IOS DEVELOPER TO OBSERVE PATIENT, WITH NOTIFICATION TO THE PHYSICIAN IF SATURATION IS 90% IN THE ABSENCE OF MORE SPECIFIC PARAMETERS FROM THE PHYSICIAN. AGENCY MAY PERFORM A RESUMPTION OF CARE VISIT FOLLOWING ANY HOSPITAL ADMISSION. RN/IOS DEVELOPER/RAILROAD SUPERVISOR OF ENGINES TO MONITOR CO-MORBID CONDITIONS LISTED ON THE PLAN OF CARE AND ANY NEW CONDITIONS THAT PRESENT THEMSELVES DURING THIS EPISODE TO IDENTIFY CHANGES AND INTERVENE TO MINIMIZE COMPLICATIONS. [code = RN TO OBSERVE, ASSESS, EVALUATE, AND DEVELOP AN INDIVIDUALIZED PLAN OF CARE. AGENCY MAY ACCEPT ORDERS FROM CONSULTING PHYSICIANS DR.KIM ROCHA TO OBSERVE AND ASSESS, IOS DEVELOPER/RAILROAD SUPERVISOR OF ENGINES TO OBSERVE FOR RISK FOR FALLS AND INSTRUCT IN FALL PREVENTION, HOME SAFETY, MEDICATION MANAGEMENT, INFECTION PREVENTION, AND NUTRITION MANAGEMENT. RN/IOS DEVELOPER/RAILROAD SUPERVISOR OF ENGINES NURSE MAY PERFORM O2 SATURATION LEVEL ON ADMISSION AND PRN FOR RN TO ASSESS/IOS DEVELOPER TO OBSERVE PATIENT, WITH NOTIFICATION TO THE PHYSICIAN IF SATURATION IS 90% IN THE ABSENCE OF MORE SPECIFIC PARAMETERS FROM THE PHYSICIAN. AGENCY MAY PERFORM A RESUMPTION OF CARE VISIT FOLLOWING ANY HOSPITAL ADMISSION. RN/IOS DEVELOPER/RAILROAD SUPERVISOR OF ENGINES TO MONITOR CO-MORBID CONDITIONS LISTED ON THE PLAN OF CARE AND ANY NEW CONDITIONS THAT PRESENT THEMSELVES DURING THIS EPISODE TO IDENTIFY CHANGES AND INTERVENE TO MINIMIZE COMPLICATIONS.] Future Scheduled Test MEDICATION MANAGEMENT; RN/IOS DEVELOPER/RAILROAD SUPERVISOR OF ENGINES TO REVIEW MEDICATIONS FOR INTERACTIONS, EFFECTIVENESS OF DRUG THERAPY, AND SIGNS/SYMPTOMS OF ADVERSE REACTIONS. MAY INSTRUCT AND REINFORCE MEDICATION TEACHING RELATED TO THE USE OF MEDICATIONS, DOSAGE, FREQUENCY, PURPOSE, SIDE EFFECTS, AND TO REPORT COMPLICATIONS. [code = MEDICATION MANAGEMENT; RN/IOS DEVELOPER/RAILROAD SUPERVISOR OF ENGINES TO REVIEW MEDICATIONS FOR INTERACTIONS, EFFECTIVENESS OF DRUG THERAPY, AND SIGNS/SYMPTOMS OF ADVERSE REACTIONS. MAY INSTRUCT AND REINFORCE MEDICATION TEACHING RELATED TO THE USE OF MEDICATIONS, DOSAGE, FREQUENCY, PURPOSE, SIDE EFFECTS, AND TO REPORT COMPLICATIONS.] Future Scheduled Test PAIN MANAG EMENT; RN TO ASSESS AND TEACH, RAILROAD SUPERVISOR OF ENGINES/IOS DEVELOPER TO OBSERVE AND TEACH AND PROVIDE EDUCATION ON PAIN MANAGEMENT TECHNIQUES. [code = PAIN MANAGEMENT; RN TO ASSESS AND TEACH, RAILROAD SUPERVISOR OF ENGINES/IOS DEVELOPER TO OBSERVE AND TEACH AND PROVIDE EDUCATION ON PAIN MANAGEMENT TECHNIQUES.] Future Scheduled Test IV THERAPY MANAGEMENT; RN TO ASSESS AND TEACH, RAILROAD SUPERVISOR OF ENGINES/IOS DEVELOPER TO OBSERVE AND TEACH ON IV ACCESS SITE RUE PICC LINE RESPONSE TO MEDICATION. RN/RAILROAD SUPERVISOR OF ENGINES/IOS DEVELOPER FOR SKILLED TEACHING REGARDING INFUSION PROCEDURE, CARE OF ACCESS DEVICE, SIGNS AND SYMPTOMS OF ACCESS DEVICE COMPLICATIONS AND, CARE AND USE OF INFUSION EQUIPMENT. [code = IV THERAPY MANAGEMENT; RN TO ASSESS AND TEACH, RAILROAD SUPERVISOR OF ENGINES/IOS DEVELOPER TO OBSERVE AND TEACH ON IV ACCESS SITE RUE PICC LINE RESPONSE TO MEDICATION. RN/RAILROAD SUPERVISOR OF ENGINES/IOS DEVELOPER FOR SKILLED TEACHING REGARDING INFUSION PROCEDURE, CARE OF ACCESS DEVICE, SIGNS AND SYMPTOMS OF ACCESS DEVICE COMPLICATIONS AND, CARE AND USE OF INFUSION EQUIPMENT.] Future Scheduled Test LAB DRAW V IA VASCULAR ACCESS DEVICE; RN/IOS DEVELOPER/RAILROAD SUPERVISOR OF ENGINES TO PERFORM LAB DRAW FROM ACCESS DEVICE. DRAW MAG, PHOS, BMP TWICE WEEKLY MONDAY AND MONDAY AND DRAW TRIGLYCERIDES AND LTF WEEKLY RN/IOS DEVELOPER/RAILROAD SUPERVISOR OF ENGINES TO DRAW LABS VIA VENIPUNCTURE PRN IF UNABLE TO DRAW VIA VASCULAR ACCESS DEVICE. [code = LAB DRAW VIA VASCULAR ACCESS DEVICE; RN/IOS DEVELOPER/RAILROAD SUPERVISOR OF ENGINES TO PERFORM LAB DRAW FROM ACCESS DEVICE. DRAW MAG, PHOS, BMP TWICE WEEKLY MONDAY AND MONDAY AND DRAW TRIGLYCERIDES AND LTF WEEKLY RN/IOS DEVELOPER/RAILROAD SUPERVISOR OF ENGINES TO DRAW LABS VIA VENIPUNCTURE PRN IF UNABLE TO DRAW VIA VASCULAR ACCESS DEVICE.] Future Scheduled Test PARENTERAL NUTRITION ADMINISTRATION; RN FOR ASSESSMENT, TEACHING, ADMINISTRATION AND RAILROAD SUPERVISOR OF ENGINES/IOS DEVELOPER ( APPLICABLE PER STATE PRACTICE ACT) FOR TEACHING AND ADMINISTRATION OF PARENTERAL NUTRITION INCLUDING: TOTAL PARENTERAL NUTRITION (TPN) FORMULA/INGREDIENTS (LIST PRESCRIBED): AMINO ACIDS DEXTROSE LIPIDS 20% ELECTROLYTES ADDITIVES ADMINISTRATION VIA (LIST TYPE OF CENTRAL VENOUS CATHETER OR PERIPHERAL IF IT MEETS PERIPHERAL PARENTERAL NUTRITION REQUIREMENTS VIA PUMP OR 16 NUMBER OF HOURS (INCLUDE INSTRUCTIONS FOR TAPERING UP/DOWN IF ORDERED) INFUSION RATE 1650ML/16HR FLUSH CENTRAL LINE WITH NORMAL SALINE AND HEPRIN PERFORM CENTRAL LINE SITE CARE/DRESSING CHANGE EVERY MONDAY REPLACE TPN ADMINISTRATION SET EVERY 24 HOURS AND PRN FOR SUSPECTED CONTAMINATION REPLACE TPN ADMINISTRATION SET EVERY 12 HOURS FOR LIPIDS BLOOD GLUCOSE MONITORING BEFORE AND AFTER ADMINISTRATION OF TPN BLOOD GLUCOSE PARAMETERS FOR REPORTING TO DOCTOR LABS: DRAW BMP, MAG,PHOS, TRIGLYCERIDES, LTF LABS AND FAX RESULTS TO ANAPHYLAXIS KIT PRESCRIBED WEIGHT MONITORING ORDERED [code = PARENTERAL NUTRITION ADMINISTRATION; RN FOR ASSESSMENT, TEACHING, ADMINISTRATION AND RAILROAD SUPERVISOR OF ENGINES/IOS DEVELOPER ( APPLICABLE PER STATE PRACTICE ACT) FOR TEACHING AND ADMINISTRATION OF PARENTERAL NUTRITION INCLUDING: TOTAL PARENTERAL NUTRITION (TPN) FORMULA/INGREDIENTS (LIST PRESCRIBED): AMINO ACIDS DEXTROSE LIPIDS 20% ELECTROLYTES ADDITIVES ADMINISTRATION VIA (LIST TYPE OF CENTRAL VENOUS CATHETER OR PERIPHERAL IF IT MEETS PERIPHERAL PARENTERAL NUTRITION REQUIREMENTS VIA PUMP OR 16 NUMBER OF HOURS (INCLUDE INSTRUCTIONS FOR TAPERING UP/DOWN IF ORDERED) INFUSION RATE 1650ML/16HR FLUSH CENTRAL LINE WITH NORMAL SALINE AND HEPRIN PERFORM CENTRAL LINE SITE CARE/DRESSING CHANGE EVERY MONDAY REPLACE TPN ADMINISTRATION SET EVERY 24 HOURS AND PRN FOR SUSPECTED CONTAMINATION REPLACE TPN ADMINISTRATION SET EVERY 12 HOURS FOR LIPIDS BLOOD GLUCOSE MONITORING BEFORE AND AFTER ADMINISTRATION OF TPN BLOOD GLUCOSE PARAMETERS FOR REPORTING TO DOCTOR LABS: DRAW BMP, MAG,PHOS, TRIGLYCERIDES, LTF LABS AND FAX RESULTS TO ANAPHYLAXIS KIT PRESCRIBED WEIGHT MONITORING ORDERED] Future Scheduled Test PRN VISITS ; NUMBER OF RN/IOS DEVELOPER/RAILROAD SUPERVISOR OF ENGINES VISITS: 2 RN/IOS DEVELOPER/RAILROAD SUPERVISOR OF ENGINES TO PERFORM: OBSERVATION OF PICC LINE FOR THE FOLLOWING REASONS: NEWLY PLACED [code = PRN VISITS; NUMBER OF RN/IOS DEVELOPER/RAILROAD SUPERVISOR OF ENGINES VISITS: 2 RN/IOS DEVELOPER/RAILROAD SUPERVISOR OF ENGINES TO PERFORM: OBSERVATION OF PICC LINE FOR THE FOLLOWING REASONS: NEWLY PLACED] Goal Patient Goal - GET WELL Goal Provider Goal - A PLAN OF CARE WILL BE ESTABLISHED THAT MEETS THE PATIENT S NEEDS. PATIENT WILL DEMONSTRATE OXYGEN SATURATION WITHIN NORMAL LIMITS OR PATIENT S OPTIMAL LEVEL ESTABLISHED BY THE PHYSICIAN THROUGHOUT CARE. CHANGES TO CO-MORBID CONDITIONS AND ANY NEW CONDITIONS WILL BE IDENTIFIED AND REPORTED TO THE PHYSICIAN. Goal Provider Goal - PATIENT/CAREGIVER TO VERBALIZE, AND CONSISTENTLY DEMONSTRATE EFFECTIVE, SAFE MANAGEMENT OF MEDICATION INCLUDING KNOWLEDGE OF EFFECTIVENESS, POTENTIAL SIDE EFFECTS AND DRUG REACTIONS AND WHEN TO CONTACT THE APPROPRIATE CARE PROVIDER. PATIENT/CAREGIVER WILL BE ABLE TO VERBALIZE UNDERSTANDING OF MEDICATION REGIMEN AND ACCURATELY TAKE MEDICATIONS PRESCRIBED WITHOUT ADVERSE EFFECTS BY 08/03/25 Goal Provider Goal - PATIENT / CAREGIVER WILL VERBALIZE / DEMONSTRATE UNDERSTANDING OF PAIN CONTROL MEASURES BY 08/03/25 Goal Provider Goal - PATIENT / CAREGIVER WILL VERBALIZE/DEMONSTRATE ABILITY TO CARE FOR ADMINISTER IV ADEQUATELY BY 08/03/25 Goal Provider Goal - PATIENT WILL VERBALIZE TOLERANCE TO LAB DRAW FROM VASCULAR ACCESS DEVICE BY 08/03/25 Goal Provider Goal - PATIENT /CAREGIVER WILL VERBALIZE/DEMONSTRATE UNDERSTANDING OF TOTAL PARENTERAL NUTRITION ADMINISTRATION AND WHEN TO NOTIFY/CALL THE DOCTOR BY 08/03/25 Goal Provider Goal - Progress Notes Progress Notes <paragraph>[Visit Date: 2024 by TAMMY FLORES RN]:</paragraph><paragraph>PATIENT RECENTLY RELEASED FROM HOSPITAL DUE TO FLUID BUILD UP AROUND LEFT LUNG. DOCTORS THINKING IT CAME FROM HER LAST PROCEDURE OF NEOPLASM ON THE PANCREAS AND LIVER. PATIENT RECEIVING TPN THROUGH RIGHT UPPER ARM PICC LINE PLACEMENT. PICC LINE PATENT, DRY AND INTACT. PT REMEMBERS INSTRUCTIONS FROM LAST PICC LINE PLACEMENT AND CARE FOR PICC LINE . PATIENT KNOWS TO SEEK HELP IF BLOOD SUGAR IS TOO HIGH OR TOO LOW. [facility] TO CHANGE PICC LINE DRESSING EVERY MONDAY AND OBTAIN LABS VIA PICC LINE BMP MAGNESIUM PHOSPHORUS ARE TWICE WEEKLY AND WEEKLY LFT AND TRIGLYCERIDES. PATIENCE AMBULANCE WITH WALKER AND AND HOME IS HER 16/01 CAREGIVER. DAUGHTER HELPS ADMINISTRATE MEDICATIONS.FAX LABS TO [phone]</paragraph> Encounters Start Date/Time End Date/Time Encounter Type Admission Type Attending [facility] Care Department Encounter ID Discharge Date Discharge Status Discharge Condition Discharge Reason Percent Goals Met 2025-06-05 00:00:00 2025-08-03 00:00:00 Outpatient TAMMY HENDERSON [facility] [id number]
== END 2025-06-07 04:11 | disposition short-term general hospital (02) ==
PROVIDERS: Emergency Medicine; Emergency Provider Student in an Organized Health Care Education/Training Program; PCP Physician Assistant
DX: I26.99 Other pulmonary embolism without acute cor pulmonale (principal); J90 Pleural effusion, not elsewhere classified; R10.13 Epigastric pain; R11.0 Nausea; R00.0 Tachycardia, unspecified; R63.8 Other symptoms and signs concerning food and fluid intake
CPT/HCPCS: 71275; 74177; 80053; 81001; 82550; 83605; 83690; 83735; 84100; 84484; 85025; 85730; 86803; 87040; 87077; 87086; 87088; 87154; 87186; 87389; 87631; 93005; 96365; 96366; 96374; 96375; 96376; 99285; J0780; J1171; J1644; J2405; Q9967